=== PATIENT | male | born 1955 | race Caucasian/White ===

== ENCOUNTER 2017-03-05 10:30 | Outpatient (CLI) | payer OTHER ==
[~2017-03-05] VITALS: Ht 157.5 cm; Wt 70.3 kg
[~2017-03-05 10:30] MED LIST: ALBU17AE3 IH; AMLO10TA PO; AMLO5TAB4 PO; ASP81TEC PO; ASPI-875 PO; ASPI-983 PO; ASPI-999 PO; ATOR40TA70 PO; CLOP75TA28 PO; CLOP75TA69 PO; CLPD75T PO; GABA-488 PO; GABA600T2 PO; LISI40TA PO; MTP50T PO; NITR0.4T SL; OMEG-34 PO; OMEP20CA6 PO; OXYC-471 PO; PANT40TA2 PO; PRV20T GT; TIOT4MIS3 IH
[2017-03-05] MEDS ORDERED: FLT11013 IH (10:52)
== END 2017-03-05 11:21 ==
LOC: PREOP 10:30
PROVIDERS: ATTEND Surgery
DX: Z01.818 Encounter for other preprocedural examination (principal); Z86.010 Personal history of colon polyps

== ENCOUNTER 2017-03-06 08:48 | Day surgery (SDC) | payer SELFPAY ==
[~2017-03-06 08:48] MED LIST changes: +FLT11013 IH
[2017-03-06 08:50] VITALS: BP 138/64
[2017-03-06] MEDS ORDERED: NS IV 1000 ML 1,000 ML IV STA (08:54)
[2017-03-06] MEDS ORDERED: fentaNYL INJECTION 100 MCG/2 ML AMP ONE (10:39)
[2017-03-06] MEDS ORDERED: proPOfol 200 MG/20 ML (DIPRIVAN) VIAL IV ONE (10:39)
--- NOTE | 2017-03-06 10:49 | Progress Note-Pre Operative ---
Pre-Operative Progress Note H&P Reviewed The H&P was reviewed, patient examined and no changes noted. Date H&P Reviewed: March 06, 2017 Time H&P Reviewed: 10:48 Pre-Operative Diagnosis: history of polyps ROSA MARIA MOLINA DO March 06, 2017 10:49 am
[2017-03-06] MEDS ORDERED: GLYCOPYRROLATE 0.2 MG/ML (ROBINUL) 2 ML VIAL ONE (10:57)
--- NOTE | 2017-03-06 11:35 | Progress Note-Post Operative ---
Post-Operative Progess Note Surgeon (s)/Area Development Consultant (s) Surgeon ROSA MARIA MOLINA DO Area Development Consultant: na Pre-Operative Diagnosis history of polyps Post-Operative Diagnosis colon polyps Procedure & Operative Findings Date of Procedure 03/06/17 Procedure Performed/Findings colonoscopy with hot bx polypectomy Anesthesia Type per tool and machine maintainer Estimated Blood Loss Estimated blood loss (mL): none Specimens/Packing Specimens Removed colon polyps Packing: ROSA MARIA Morel DO March 06, 2017 11:35 am
--- NOTE | 2017-03-06 11:40 | Discharge Inst-Simple/Standard ---
Discharge Inst-Standard Patient Instructions/Follow Up Plan of Care/Instructions/FU: Follow Dr. Sharma in 2 weeks Repeat colonoscopy in one year or sooner if condition changes Activity as Tolerated: Yes Discharge Diet: No Restrictions MADELINE RIVERA APRN March 06, 2017 11:40
[2017-03-06 12:00] VITALS: BP 122/65
[2017-03-06 12:25] VITALS: BP 122/65
[2017-03-06 12:27] VITALS: BP 122/65
--- NOTE | 2017-03-06 15:52 | OPERATIVE REPORT ---
DATE OF SERVICE: 03/06/2017 PREOPERATIVE DIAGNOSIS: History of colon polyps. POSTOPERATIVE DIAGNOSIS: Colon polyps. PROCEDURE: Colonoscopy with hot biopsy polypectomy x5. SURGEON: Rosa Maria Sharma DO ANESTHESIA: Per ENGINEERING OPERATOR. ESTIMATED BLOOD LOSS: None. COMPLICATIONS: None. INDICATIONS: The patient is a 61-year-old male with a history of colon polyps who was advised to repeat colonoscopy. He understands risks and benefits of procedure and wished to proceed with procedure. Consent was signed in chart. PROCEDURE IN DETAIL: The patient was taken to the endoscopy suite, placed in left lateral recumbent position. Timeout was performed. Scope was inserted in the rectum and advanced all the way to the cecum with minimal difficulty. Prep was adequate. Scope was then slowly retracted back. There were no polyps, masses or ulcerations in the cecum. In the ascending colon, a long, flat appearing polyp was present, which hot biopsy polypectomy was performed. Scope was then continually to be slowly retracted back in the ascending colon and 2 other small polyps were present, which hot biopsy polypectomy was performed. Scope was then continued to be slowly retracted back. At the hepatic flexure, another polyp was present where there was some previous inking. Hot biopsy polypectomy was performed. Scope was continued to be slowly retracted back through the remainder of the transverse colon. There were no other polyps, masses or ulcerations within the transverse colon. Within the descending colon, a small polyp was present, which hot biopsy polypectomy was performed. Scope was continued slowly retracted back into the sigmoid and into the rectum where the scope was also retroflexed noting no other pathology. Scope was returned to its normal position slowly withdrawn until completely removed. Due to the number of polyps, would recommend repeat colonoscopy in one year. He will follow up in the office in 2 weeks to discuss pathology. If he has any problems prior to that, he should be reevaluated at that time. Job ID: [id number] DocumentID: [id number] Dictated Date: 03/06/2017 11:38:36 Change Attendant Date: 03/06/2017 15:51:36 Dictated By: ROSA MARIA SHARMA DO
== END 2017-03-06 12:27 | disposition home or self-care (01) ==
LOC: ENDO 08:48
PROVIDERS: ATTEND Surgery
DX: D12.2 Benign neoplasm of ascending colon (principal); D12.3 Benign neoplasm of transverse colon; I25.10 Atherosclerotic heart disease of native coronary artery without angina pectoris; I73.9 Peripheral vascular disease, unspecified; F17.210 Nicotine dependence, cigarettes, uncomplicated; Z79.02 Long term (current) use of antithrombotics/antiplatelets

== ENCOUNTER → 2017-07-10 | Day surgery (SDC) | payer SELFPAY ==
[~2017-07-10] VITALS: Ht 158.8 cm; Wt 70.8 kg
[~2017-07-10] MED LIST changes: +HEParin (CATH LAB) 0 ML IV ONE; +NS IV 1000 ML 1,000 ML IV SCH; +NS IV 1000 ML 1,000 ML ONE
--- OUTSIDE RECORDS SUMMARY | 2017-07-10 08:31 | XMS REPORT ---
Author Author TIFFANIE CAMPOS [facility] [place] [facility] Address [address] [place] [address] Care Team Providers Care Textile Machinery Sales Representative Name Role Phone TIFFANIE CAMPOS Unavailable PROBLEMS Type Condition ICD9-CM Code [id number] Code Onset Dates Condition Status SNOMED Code Problem Tobacco abuse Z72.0 Active 66019681 Problem Chronic pain G89.29 Active 12301419 Problem CAD (coronary artery disease) I25.10 Active 98770091 Problem Hyperlipemia E78.5 Active 94513165 Problem Benign essential hypertension I10 Active 6585568 Problem Chronic bronchitis J42 Active 16650456 Problem Chronic obstructive pulmonary disease, unspecified COPD type J44.9 Active 83702154 Problem Gastroesophageal reflux disease without esophagitis K21.9 Active 334812049 Problem Diverticulosis of intestine without bleeding, unspecified intestinal tract location K57.90 Active 94445027 Problem Fatty liver K76.0 Active 119356499 Problem COPD (chronic obstructive pulmonary disease) with chronic bronchitis J44.9 Active 652177743 Problem Abdominal bloating R14.0 Active 907008164 ALLERGIES Substance Reaction Event Type Date Status N.K.D.A. Unknown Non Drug Allergy Oct, Unknown SOCIAL HISTORY No smoking Hx information available PLAN OF CARE Activity Details Follow Up 6 Months Reason:BP/COPD- fasting labs VITAL SIGNS Height 62 in 2016-11-02 Weight 173 lbs 2016-11-02 Temperature 98.5 degrees Fahrenheit 2016-11-02 Heart Rate 88 bpm 2016-11-02 Respiratory Rate 16 2016-11-02 Oximetry 92 % 2016-11-02 BMI 31.64 kg/m2 2016-11-02 Blood pressure systolic 166 mmHg 2016-11-02 Blood pressure diastolic 72 mmHg 2016-11-02 MEDICATIONS Medication Instructions Dosage Frequency Start Date End Date Duration Status Gabapentin 600 MG Orally 3 times a day 1 tablet 8h 08 Jun, 2014 Active Ventolin HFA 108 (90 Base) MCG/ACT Inhalation every 4 hrs 2 puffs as needed 4h 14 Apr, 2016 Active Norvasc 5 mg Orally Once a day 1 tablet 24h Active Plavix 75 MG Orally Once a day 1 tablet 24h Active Protonix 20 mg Orally Once a day- stop omeprazole 1 tablets Oct, Active Wmdap-8-lael Ethyl Esters 1 GM 1 capsule by Oral route 3 times per day Active Aspirin 81 MG Orally Once a day 1 tablet 24h Active Fish Oil 500 MG TAKE ONE CAPSULE BY MOUTH THREE TIMES DAILY 30 Active Lisinopril 40 mg Orally Once a day 1 tablet Once a day Orally 24h Active Metoprolol Tartrate 50 mg Orally Twice a day 1 tablet 12h Active Albuterol Sulfate (2.5 MG/3ML) 0.083% Inhalation Three times a day, PRN 3 ml Oct, Active Lipitor 40 MG Orally Once a day in the evening take 1 tablet (40 mg) Active Stiolto Respimat 2.5-2.5 MCG/ACT Inhalation Once a day 2 puffs 24h 13 Oct, 2015 Active Flovent HFA 110 MCG/ACT Inhalation Twice a day 2 puff 12h Oct, Active RESULTS No Results PROCEDURES Procedure Date Ordered Related Diagnosis Body Site MEASURE BLOOD OXYGEN LEVEL Nov 02, 2016 Office Visit, Est Pt., Level 3 Nov 02, 2016 IMMUNIZATIONS No Known Immunizations
--- OUTSIDE RECORDS SUMMARY | 2017-07-10 08:32 | XMS REPORT ---
Author [facility] Address [address] [place] [address] Care Team Providers Care Circuit Walker Name Role Phone TIFFANIE CAMPOS Unavailable PROBLEMS Type Condition ICD9-CM Code INJ09-JS Code Onset Dates Condition Status SNOMED Code Problem Tobacco abuse Z72.0 Active 00695819 Problem Chronic pain G89.29 Active 87937144 Problem CAD (coronary artery disease) I25.10 Active 40223448 Problem Hyperlipemia E78.5 Active 00027936 Problem Benign essential hypertension I10 Active 5204966 Problem Chronic bronchitis J42 Active 44414430 Problem Chronic obstructive pulmonary disease, unspecified COPD type J44.9 Active 92401612 Problem Gastroesophageal reflux disease without esophagitis K21.9 Active 118914262 Problem Diverticulosis of intestine without bleeding, unspecified intestinal tract location K57.90 Active 81929586 Problem Fatty liver K76.0 Active 851911114 Problem COPD (chronic obstructive pulmonary disease) with chronic bronchitis J44.9 Active 815533160 Problem Abdominal bloating R14.0 Active 412640054 ALLERGIES Unknown Allergies SOCIAL HISTORY No smoking Hx information available PLAN OF CARE VITAL SIGNS MEDICATIONS Medication Instructions Dosage Frequency Start Date End Date Duration Status Flovent HFA 110 MCG/ACT Inhalation Twice a day 2 puff 12h 19 Oct, 2016 Active RESULTS No Results PROCEDURES No Known procedures IMMUNIZATIONS No Known Immunizations
--- OUTSIDE RECORDS SUMMARY | 2017-07-10 08:32 | XMS REPORT ---
Author Author ALLA VALDIVIA [facility] Address [address] [place] [address] Care Team Providers Care Manager Of Broadcast Content Name Role Phone ALLA VALDIVIA Unavailable PROBLEMS Type Condition ICD9-CM Code RKE23-ZR Code Onset Dates Condition Status SNOMED Code Problem Tobacco abuse Z72.0 Active 50522993 Problem Chronic pain G89.29 Active 40655566 Problem CAD (coronary artery disease) I25.10 Active 58277182 Problem Hyperlipemia E78.5 Active 04710203 Problem Benign essential hypertension I10 Active 7467366 Problem Chronic bronchitis J42 Active 64400965 Problem Chronic obstructive pulmonary disease, unspecified COPD type J44.9 Active 18054410 Problem Gastroesophageal reflux disease without esophagitis K21.9 Active 460222896 Problem Diverticulosis of intestine without bleeding, unspecified intestinal tract location K57.90 Active 48902746 Problem Fatty liver K76.0 Active 487290005 Problem COPD (chronic obstructive pulmonary disease) with chronic bronchitis J44.9 Active 877048977 Problem Abdominal bloating R14.0 Active 355241030 ALLERGIES Substance Reaction Event Type Date Status N.K.D.A. Unknown Non Drug Allergy Oct, Unknown SOCIAL HISTORY No smoking Hx information available PLAN OF CARE Activity Details Follow Up prn Reason: VITAL SIGNS Height 62 in 2016-11-04 Weight 177.2 lbs 2016-11-04 Temperature 97.4 degrees Fahrenheit 2016-11-04 Heart Rate 68 bpm 2016-11-04 Respiratory Rate 16 2016-11-04 BMI 32.41 kg/m2 2016-11-04 Blood pressure systolic 134 mmHg 2016-11-04 Blood pressure diastolic 64 mmHg 2016-11-04 MEDICATIONS Medication Instructions Dosage Frequency Start Date End Date Duration Status Aspirin 81 MG Orally Once a day 1 tablet 24h Active Lisinopril 40 mg Orally Once a day 1 tablet Once a day Orally 24h Active Gabapentin 600 MG Orally 3 times a day 1 tablet 8h 08 Jun, 2014 Active Uiiye-1-ahsb Ethyl Esters 1 GM 1 capsule by Oral route 3 times per day Active Norvasc 5 mg Orally Once a day 1 tablet 24h Active Stiolto Respimat 2.5-2.5 MCG/ACT Inhalation Once a day 2 puffs 24h Oct, Active Ventolin HFA 108 (90 Base) MCG/ACT Inhalation every 4 hrs 2 puffs as needed 4h Apr, Active Metoprolol Tartrate 50 mg Orally Twice a day 1 tablet 12h Active Plavix 75 MG Orally Once a day 1 tablet 24h Active Lipitor 40 MG Orally Once a day in the evening take 1 tablet (40 mg) Active Albuterol Sulfate (2.5 MG/3ML) 0.083% Inhalation Three times a day, PRN 3 ml Oct, Active Fish Oil 500 MG TAKE ONE CAPSULE BY MOUTH THREE TIMES DAILY 30 Active Flovent HFA 110 MCG/ACT Inhalation Twice a day 2 puff 12h Oct, Active Protonix 20 mg Orally Once a day- stop omeprazole 1 tablets Oct, Active RESULTS No Results PROCEDURES Procedure Date Ordered Related Diagnosis Body Site Office Visit, Est Pt., Level 3 Nov 04, 2016 IMMUNIZATIONS No Known Immunizations
--- OUTSIDE RECORDS SUMMARY | 2017-07-10 08:32 | XMS REPORT ---
Author Author [facility]IE CAMPOS [facility] Address [address] [place] [address] Care Team Providers Care Iron Worker Apprentice Name Role Phone TIFFANIE CAMPOS Unavailable PROBLEMS Type Condition ICD9-CM Code SHF50-BP Code Onset Dates Condition Status SNOMED Code Problem Tobacco abuse Z72.0 Active 63490686 Problem CAD (coronary artery disease) I25.10 Active 19354293 Problem Chronic bronchitis J42 Active 02446825 Problem Hyperlipemia E78.5 Active 49522925 Problem Benign essential hypertension I10 Active 8806284 Problem COPD (chronic obstructive pulmonary disease) with chronic bronchitis J44.9 Active 543809639 Problem Gastroesophageal reflux disease without esophagitis K21.9 Active 163609458 Problem Diverticulosis of intestine without bleeding, unspecified intestinal tract location K57.90 Active 56181508 Problem Chronic pain G89.29 Active 89110531 Problem Abdominal bloating R14.0 Active 191492664 Problem Fatty liver K76.0 Active 291109636 ALLERGIES Unknown Allergies SOCIAL HISTORY No smoking Hx information available PLAN OF CARE VITAL SIGNS MEDICATIONS Medication Instructions Dosage Frequency Start Date End Date Duration Status Metoprolol Tartrate 50 mg Orally Twice a day 1 tablet 12h Active Lisinopril 40 mg Orally Once a day 1 tablet Once a day Orally 24h Active Norvasc 5 mg Orally Once a day 1 tablet 24h Active RESULTS No Results PROCEDURES No Known procedures IMMUNIZATIONS No Known Immunizations
[2017-07-10 09:35] VITALS: BP 171/78
[2017-07-10 09:37] LABS: MEAN PLATELET VOLUME 11.6 FL (7.4-10.4); RED BLOOD COUNT 4.94 10^6/uL (4.35-5.85); RED CELL DISTRIBUTION WIDTH 13.7 % (10.0-14.5); WHITE BLOOD COUNT 7.9 10^3/uL (4.3-11.0)
[2017-07-10 09:49] LABS: INR 0.9 (0.8-1.4); PROTHROMBIN TIME PATIENT 11.9 SEC (12.2-14.7)
[2017-07-10 09:59] LABS: ALANINE AMINOTRANSFERASE 20 U/L (0-55); ALBUMIN 4.3 GM/DL (3.2-4.5); ANION GAP 10 MMOL/L (5-14); ASPARTATE AMINO TRANSFERASE 42 U/L (5-34); BILIRUBIN,TOTAL 0.7 MG/DL (0.1-1.0); BLOOD UREA NITROGEN 18 MG/DL (7-18); BUN/CREATININE RATIO 17; CALCIUM 9.4 MG/DL (8.5-10.1); CARBON DIOXIDE 26 MMOL/L (21-32); CHLORIDE 102 MMOL/L (98-107); CHOLESTEROL 166 MG/DL (< 200); CREATININE SERUM 1.07 MG/DL (0.60-1.30); DIRECT LDL 109 MG/DL (1-129); GFR ESTIMATED > 60; GLUCOSE 104 MG/DL (70-105); POTASSIUM 3.7 MMOL/L (3.6-5.0); SODIUM 138 MMOL/L (135-145); TOTAL PROTEIN 7.6 GM/DL (6.4-8.2); TRIGLYCERIDES 150 MG/DL (<150); VLDL CHOLESTEROL 30 MG/DL (5-40)
== END ==
LOC: CATH 08:27
PROVIDERS: ATTEND Nurse Practitioner Family
DX: M79.604 Pain in right leg (principal); M79.605 Pain in left leg; Z53.29 Procedure and treatment not carried out because of patient's decision for other reasons
CPT/HCPCS: 36415; 80053; 80061; 85027; 85610; 85730; 87081; 93005

== ENCOUNTER → 2018-01-18 | Outpatient (CLI) | payer MEDICAID ==
[~2018-01-18] MED LIST changes: -HEParin (CATH LAB) 0 ML IV ONE; -NS IV 1000 ML 1,000 ML IV SCH; -NS IV 1000 ML 1,000 ML ONE
--- NOTE | 2018-01-18 16:33 | Diagnostic Imaging Report ---
PROCEDURE: US carotid duplex, bilateral. TECHNIQUE: Multiple real-time grayscale images were obtained over the carotid arteries in various projections, bilaterally. Additional duplex Doppler and color Doppler images were also obtained. Parameters based on the consensus panel Hernandez-Scale and Doppler ultrasound criteria published August 2003, Radiology, Volume 229. DOPPLER (peak systolic velocity M/S Right Left CCA 1.25 1.06 ICA Proximal .98 1.61 ICA Mid 1.77 1.12 ICA Distal 1.65 .99 RATIO 1.4 1.5 ECA 1.93 1.96 VERT .63 .46 INDICATION: Previous history of bilateral endarterectomy. FINDINGS: Real-time imaging shows the carotid bulbs and internal carotid arteries to be widely patent. There is no evidence of new intimal hyperplasia. Color Doppler imaging shows normal antegrade flow bilaterally. Both vertebral arteries appear normal and antegrade. Waveforms and peak velocities are normal. Carotid ratios are symmetrical and normal. IMPRESSION: Findings are consistent with previous bilateral carotid endarterectomy with no evidence of neointimal hyperplasia or recurrent atherosclerotic disease. Dictated by: Dictated on workstation # [id number]
== END ==
LOC: RAD 12:31
PROVIDERS: ATTEND Nurse Practitioner Family
DX: I77.9 Disorder of arteries and arterioles, unspecified (principal); I73.9 Peripheral vascular disease, unspecified; I10 Essential (primary) hypertension; E78.5 Hyperlipidemia, unspecified; R06.09 Other forms of dyspnea; Z98.890 Other specified postprocedural states
CPT/HCPCS: 93306; 93880

== ENCOUNTER 2018-02-19 06:44 | Day surgery (SDC) | payer MEDICAID ==
[~2018-02-19] VITALS: Ht 157.5 cm; Wt 73.9 kg
[2018-02-19] VITALS (10 sets, daily range): BP systolic 110–165; BP diastolic 61–73
[~2018-02-19 06:44] MED LIST changes: +LIDOCAINE 1% INJ 20 ML 20 ML VIAL ONE; +NS IV 1000 ML 3,000 ML ONE
--- OUTSIDE RECORDS SUMMARY | 2018-02-19 06:48 | XMS REPORT ---
Author Author TIFFANIE CAMPOS [facility] Address [address] [place] [address] Care Team Providers Care Medical Assistant Prn Name Role Phone TIFFANIE CAMPOS Unavailable PROBLEMS Type Condition ICD9-CM Code HSC91-ZH Code Onset Dates Condition Status SNOMED Code Problem Fatty liver K76.0 Active 462137943 Problem Abdominal bloating R14.0 Active 848093417 Problem Diverticulosis of intestine without bleeding, unspecified intestinal tract location K57.90 Active 55591724 Problem Chronic obstructive pulmonary disease, unspecified COPD type J44.9 Active 07916873 Problem Bilateral carotid artery disease I77.9 Active 343806043 Problem COPD (chronic obstructive pulmonary disease) with chronic bronchitis J44.9 Active 543148273 Problem Gastroesophageal reflux disease without esophagitis K21.9 Active 804223053 Problem Claudication of both lower extremities I73.9 Active 528574511 Problem PAD (peripheral artery disease) I73.9 Active 286066843 Problem Tobacco abuse Z72.0 Active 04453309 Problem Benign essential hypertension I10 Active 8160270 Problem Hyperlipemia E78.5 Active 57150360 Problem Chronic pain G89.29 Active 29237653 Problem Chronic bronchitis J42 Active 78940845 Problem CAD (coronary artery disease) I25.10 Active 40212408 ALLERGIES No Information ENCOUNTERS Encounter Location Date Diagnosis [facility] [address] [id number][place] [id number] Jan, [facility] [address] [id number], [place] [address] Dec, [facility] [address] [id number][place] [id number] Dec, [facility] [address] [id number], [place] [id number] Dec, COPD (chronic obstructive pulmonary disease) with chronic bronchitis J44.9 [facility] [address] [facility] [id number] [place] [address] Dec, [facility] [address] [facility] [id number] [place] [address] Dec, [facility] [address] [id number][place] [id number] Nov, [facility] [address] [id number], [place] [id number] Nov, Benign essential hypertension I10 and COPD (chronic obstructive pulmonary disease) with chronic bronchitis J44.9 [facility] [address] [id number], [place] [address] Nov, Hyperlipemia E78.5 ; Benign essential hypertension I10 ; COPD ( chronic obstructive pulmonary disease) with chronic bronchitis J44.9 ; Encounter for immunization Z23 ; Gastroesophageal reflux disease without esophagitis K21.9 and Chronic pain G89.29 [facility] [address] [id number][place] [id number] Oct, COPD (chronic obstructive pulmonary disease) with chronic bronchitis J44.9 and Chronic obstructive pulmonary disease, unspecified COPD type J44.9 [facility] [address] [id number][place] [address] Oct, COPD (chronic obstructive pulmonary disease) with chronic bronchitis J44.9 and Chronic obstructive pulmonary disease, unspecified COPD type J44.9 [facility] [address] [id number], [place] [id number] Oct, COPD (chronic obstructive pulmonary disease) with chronic bronchitis J44.9 and Chronic obstructive pulmonary disease, unspecified COPD type J44.9 [facility] [employer] [place] [address] AVE [id number], [place] [id number] Oct, Benign essential hypertension I10 and Neck pain M54.2 [facility] [employer] [place] [address] AVE [id number], [place] [address] 15 Dec, 2017 PAD (peripheral artery disease) I73.9 ; Claudication of both lower extremities I73.9 ; Bilateral carotid artery disease I77.9 ; Benign essential hypertension I10 ; Hyperlipemia E78.5 and Dyspnea on exertion R06.09 [facility] [id number][place] [id number] Aug, Benign essential hypertension I10 ; Gastroesophageal reflux disease without esophagitis K21.9 and Cervical radiculopathy M54.12 [facility] [id number], [place] [id number] Aug, Gastroesophageal reflux disease without esophagitis K21.9 [facility] [address] [id number], [place] [id number] Aug, COPD (chronic obstructive pulmonary disease) with chronic bronchitis J44.9 [facility] [address] [id number], [place] [address] Jul, [facility] [address] [id number], [place] [id number] Jul, Benign essential hypertension I10 [facility] [address] [id number], [place] [address] Jul, [facility] [address] [id number], [place] [id number] Jul, COPD (chronic obstructive pulmonary disease) with chronic bronchitis J44.9 [facility] [address] [id number], [place] [address]16[address] Jul, Neck pain M54.2 [facility] [address] [id number], [place] [id number] 22 Jun, 2017 Claudication of both lower extremities I73.9 ; PAD (peripheral artery disease) I73.9 ; Bilateral carotid artery disease I77.9 ; CAD (coronary artery disease) I25.10 ; Tobacco abuse Z72.0 ; Benign essential hypertension I10 ; Hyperlipemia E78.5 and Non-rheumatic mitral valve stenosis I34.2 [facility] [address] [id number], [place] [id number] Jun, Chronic obstructive pulmonary disease, unspecified COPD type J44.9 [facility] [address] [address] [id number] [place] [id number] May, [facility] [address] [id number] [place] [id number] May, Chronic obstructive pulmonary disease, unspecified COPD type J44.9 [facility] [address] [id number], [place] [id number] May, Neck pain M54.2 ; Chronic obstructive pulmonary disease, unspecified COPD type J44.9 and Cervical radiculopathy M54.12 [facility] [address] [address] [id number], [place] [id number] May, [facility] [address] [id number], [place] [id number] Apr, [facility] [address] [id number], [place] 999395496 Apr, Gastroesophageal reflux disease without esophagitis K21.9 [facility] [address] [id number], [place] [id number] Apr, COPD (chronic obstructive pulmonary disease) with chronic bronchitis J44.9 [facility] [address] [id number], [place] [id number] Apr, [facility] [address] [id number], [place] [id number] Apr, [facility] [address] [id number], [place] [id number] Apr, COPD (chronic obstructive pulmonary disease) with chronic bronchitis J44.9 ; Benign essential hypertension I10 ; Tobacco abuse counseling Z71.6 and Hyperlipemia E78.[address] [facility] [address] [id number], [place] [id number] February, COPD (chronic obstructive pulmonary disease) with chronic bronchitis J44.9 [facility] [address] [id number], [place] 139[address] Jan, [facility] [address] [id number], [place] [id number] Jan, COPD (chronic obstructive pulmonary disease) with chronic bronchitis J44.[address] [facility] [address] [id number], [place] [id number] Oct, COPD (chronic obstructive pulmonary disease) with chronic bronchitis J44.9 [facility] [address] [id number], [place] [id number] Oct, Winter itch L29.8 [facility] [address] [id number], [place] [id number] Oct, COPD (chronic obstructive pulmonary disease) with chronic bronchitis J44.9 ; Benign essential hypertension I10 ; Tobacco abuse Z72.0 and Gastroesophageal reflux disease without esophagitis K21.9 [facility] [address] [id number], [place] [id number] Sep, Benign essential hypertension I10 [facility] [address] [id number], [place] [id number] Aug, [facility] [address] [id number], [place] [id number] Jul, [facility] [address] [id number], [place] [id number] Apr, [facility] [address] [id number], [place] [id number] Apr, Abdominal bloating R14.0 ; Fatty liver K76.0 ; Diverticulosis of intestine without bleeding, unspecified intestinal tract location K57.90 ; Chronic obstructive pulmonary disease, unspecified COPD type J44.9 and Benign essential hypertension I10 [facility] [address] [id number], [place] [id number] Apr, Mild early onset dysthymic disorder, in partial remission, with melancholic features, 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 [facility] [address] [id number], [place] 149435185 Mar, Abdominal muscle strain, initial encounter S39.011A [facility] [address] [id number], [place] 829033414 Jan, Pancreatitis K85.9 ; Abdominal bloating R14.0 ; Chronic bronchitis J42 and Chronic pain G89.29 [facility] [address] [id number], [place] [id number] Nov, [facility] [address] [id number], [place] [id number] Nov, [facility] [address] [id number], [place] 188065705 Nov, Chronic bronchitis J42 ; Tobacco abuse Z72.0 and Tobacco abuse counseling Z71.6 [facility] [address] [id number], [place] [id number] Oct, [facility] [address] [id number], [place] [id number] Oct, Chronic bronchitis J42 ; Tobacco abuse Z72.0 and Benign essential hypertension I10 [facility] [address] [id number], [place] [id number] Oct, Chronic bronchitis J42 ; Tobacco abuse Z72.0 ; Tobacco abuse counseling Z71.6 ; Benign essential hypertension I10 and Hyperlipemia E78.5 [facility] [address] [id number], [place] [address] Sep, [facility] [address] [id number], [place] [id number] Jul, [facility] [address]00565100[place], [place] [address] Jul, Essential (primary) hypertension I10 [facility] [address] [id number], [place] [address] Jul, [facility] [address] [id number], [place] [id number] Jul, [facility] [address] [id number], [place] [id number] Jun, Benign essential hypertension 401.1 ; Generalized edema 782.3 ; Chronic pain 338.29 and Hyperlipemia 272.4 [facility] Dominguez [facility] [address] [id number], [place] [id number] May, Upper respiratory infection 465.9 and Cough 786.2 [facility] Alberto [facility] [address] [id number], [place] [id number] Mar, Upper respiratory infection 465.9 ; Tobacco abuse 305.1 and Cough 786.2 [facility] Dominguez [facility] [address] [id number], [place] [id number] February, [facility] [address] [id number], [place] [id number] February, Status post bilateral carotid endarterectomy V45.89 ; CAD ( coronary artery disease) 414.00 ; Benign essential hypertension 401.1 ; Hyperlipemia 272.4 ; Tobacco abuse 305.1 ; Tobacco abuse counseling V65.42 and Chronic bronchitis 491.9 [facility] [id number] [place] [address] Jan, [facility] [id number] [place] [address] [id number]- 9620 Jan, [facility] [id number] [place] [address]3392- 0158 Dec, [facility] [id number] [place] [address]- 3887 Dec, [facility] [id number] [place] [address] [id number]- 8485 Nov, [facility] [id number] [place] [address] 827640- 8494 Nov, [facility] [id number] [place] [address] 524627- 4481 Nov, [facility] [address] [id number] [place] [address]- [address] 17 Nov, 2014 [facility] [place] [facility] [address] [id number] [place] [address]- [address] 17 Nov, 2014 [facility] [place] [facility] [address] [id number] [place] [address]- 1686 10 Nov, 2014 [facility] [place] [facility] [address] [id number] [place] [address]- 8066 Nov, 2014 [facility] [place] [facility] [address] [id number] [place] [address]- 1553 Nov, [facility] [place] [facility] [address] [id number] [place] [address]- 4223 Nov, [facility] [place] [facility] [address] [id number] [place] [address]- 4256 Oct, [facility] [place] [facility] [address] [id number] [place] [address]- 4608 Oct, [facility] [place] [facility] [address] [id number] [place] [address]- 0382 Oct, [facility] [place] [facility] [address] [id number] [place] [address]- 3241 Oct, [facility] [place] [facility] [address] [id number] [place] [address]- 7444 Oct, [facility] [place] [facility] [address] [id number] [place] [address]- 6521 Oct, [facility] [place] [facility] [address] [id number] [place] [address]- 9226 Oct, [facility] [place] [facility] [address] [id number] [place] [address]- 1313 Oct, [facility] [place] [facility] [address] [id number] [place] [address]- 1657 Oct, [facility] [place] [facility] [address] [id number] [place] [address]- 6234 Oct, [facility] [place] [address] [id number] [id number] Oct, [facility] [place] [facility] [address] [id number] [place] [address]- 7852 Oct, [facility] [place] [facility] [address] [facility] [id number] [place] [address]69 Sep, [facility] [place] [facility] [address] [id number] [place] [address]- 2249 Sep, [facility] [place] [facility] [address] [id number] [place] [address]- 7967 Aug, [facility] [place] [facility] [address] [id number] [place] [address]- 9105 Aug, [facility] [place] [facility] [address] [id number] [place] [address]- 2319 Aug, [facility] [place] [facility] [address] [id number] [place] [address]- 4737 Aug, [facility] [place] [facility] [address] [id number] [place] [address]- 1330 Jul, [facility] [place] [facility] [address] [facility] [id number] [place] [address]- 9739 Jul, [facility] [place] [facility] [address] [facility] [id number], [place] [address]- 6605 Jun, [facility] [place] [facility] [address] [id number], [place] [address]- 8260 Jun, [facility] [place] [facility] [address] [id number] [place] [address]- 7638 May, [facility] [place] [facility] [address] [id number] [place] [address]- 2911 May, [facility] [place] [facility] [address] [facility] [id number], [place] [address]- 0915 May, [facility] [place] [facility] [address] [id number], [place] [address]- 5313 May, [facility] [place] [facility] [address] [id number] [place] [address]- 5339 Jan, [facility] [place] [facility] [address] [id number] [place] [address]- 3993 Jan, [facility] [place] [facility] [address] [id number] [place] [address]- 1796 Nov, [facility] [place] [facility] [address] [id number] [place] [address]- 8362 Nov, [facility] [place] [facility] [address] [id number] [place] [address]- 7036 Nov, [facility] [place] [facility] [address] [id number] [place] [address]- 6201 Nov, [facility] [place] [facility] [address] [id number] [place] [address]- 8458 Nov, [facility] [place] [facility] [address] [id number] [place] [address]- 0281 Nov, [facility] [place] [facility] [address] [id number] [place] [address]- 7185 Nov, [facility] [place] [facility] [address] [id number] [place] [address]- 9156 Nov, [facility] [place] [facility] [address] [id number] [place] [address]- 7670 Nov, [facility] [place] [facility] [address] [id number] [place] [address]- 0895 Nov, [facility] [place] [facility] [address] [id number] [place] [address]- 3389 Oct, [facility] [place] [facility] [address] [id number] [place] [address]- 0050 Oct, [facility] [place] [facility] [address] [id number] [place] [address]- 2056 Oct, [facility] [place] [facility] [address] [id number] [place] [address]- 4635 Oct, [facility] [place] [facility] [address] [id number] [place] [address]- 4486 Sep, [facility] [place] [facility] [address] [id number] [place] [address]- 0009 Sep, [facility] [place] [facility] [address] [id number] [place] [address]- 5030 Aug, [facility] [place] [facility] [address] [id number] [place] [address]- 0305 Aug, [facility] [place] [facility] [address] [id number] [place] [address]- 4067 Aug, [facility] [place] [facility] [address] [id number] [place] [address]- 9818 Aug, [facility] [place] [facility] [address] [id number] [place] [address]- 0995 Aug, [facility] [place] [facility] [address] [id number] [place] [address]- 9636 Aug, [facility] [place] [facility] [address] [id number], [place] [address]- 2362 Aug, [facility] [place] [facility] [address] [id number], [place] [address]- [address] Aug, [facility] [place] [facility] [address] [id number], [place] [address]- 8621 Jul, [facility] [place] [facility] [address] [id number] [place] [address]- 1565 Jul, [facility] [place] [facility] [address] [id number] [place] [address]- 6913 Jul, [facility] [place] [facility] [address] [id number] [place] [address]- 4637 Jul, [facility] [place] [facility] [address] [id number], [place] [address]- 0100 Jul, [facility] [address]65[address], [place] [address]- 5786 Jun, [facility] [address]65[address], [place] [address]- 3406 May, [facility] [address]65[address], [place] [address]- 0996 Apr, [facility] [address]65[address], [place] [address]- 2337 February, [facility] [address] [place] [address]58- 4859 Jan, [facility] [address]65[address], [place] [address]- 0166 Jan, [facility] [address] [place] [address] 37162- 1614 Dec, [facility] [address]65[address], [place] [address]- 1352 Dec, [facility] [address]65[address], [place] [address]- 2118 Dec, [facility] [address]65[address], [place] [address]- 3511 Nov, [facility] [address], [place] [address]- 8871 Nov, [facility] [address], [place] [address]- 8140 Nov, [facility] [address] [id number], [place] [address]- 4160 Nov, IMMUNIZATIONS No Known Immunizations SOCIAL HISTORY Never Assessed REASON FOR VISIT results/letter PLAN OF CARE VITAL SIGNS MEDICATIONS Medication Instructions Dosage Frequency Start Date End Date Duration Status Xsnra-5-giet Ethyl Esters 1 GM 1 capsule by Oral route 3 times per day Active Metoprolol Tartrate 50 mg Orally Twice a day 1 tablet 12h Active Fish Oil 500 MG TAKE ONE CAPSULE BY MOUTH THREE TIMES DAILY 30 Active Aspirin 81 MG Orally Once a day 1 tablet 24h Active Gabapentin 600 MG 1 tablet 3 times a day Orally Active Ventolin HFA 108 (90 Base) MCG/ACT Inhalation every 4 hrs 2 puffs as needed 4h Apr, Active Crestor 20 mg Orally Once a day 1 tablet 24h Apr, 90 days Active Protonix 20 mg Orally Once a day- stop omeprazole 1 tablets Oct, Active Flovent HFA 110 MCG/ACT Inhalation Twice a day (PALS) 2 puff Oct, Active Bevespi Aerosphere 9-4.8 MCG/ACT Inhalation Twice a day (PALS) 2 puffs Apr, Active Norvasc 5 mg Orally Once a day 1 tablet 24h Active Plavix 75 MG Orally Once a day 1 tablet 24h Active Albuterol Sulfate (2.5 MG/3ML) 0.083% Inhalation Three times a day, PRN 3 ml Oct, Active Lisinopril 40 mg Orally Once a day 1 tablet Once a day Orally 24h Active RESULTS No Results PROCEDURES No Known procedures INSTRUCTIONS MEDICATIONS ADMINISTERED No Known Medications MEDICAL (GENERAL) HISTORY Type Description Date Medical History GERD Medical History hypertension Medical History 1999 mild stroke syndrome- CT head 02/2015 showed chronic ischemic changes Medical History chronic neck and back pain Medical History IA x's 2 1996 and 2011 Medical History Chronic bronchitis- PFT 2012 normal Medical History Hyperlipidemia Medical History ECHO 2013- mild tricuspid and mitral reguirg. Mild aortic sclerosis- EF 60% Medical History CT abdomen/pelvis- 12/2015- Mild diverticulosis, fatty liver, artherosclerosis of aorta Medical History Fatty liver- CT 2015 Medical History Tubular Adenoma and hyperplastic polyp dx 06/2016 Medical History Esophagitis Surgical History carotid endarterectomy, left side of neck 02/2015 Surgical History coronary angiography Dr Traylor [facility]- normal EF, LV function,-minimal RCA blockage <20% 1996 [facility]osive es[facility], mild nonspecific bulbar duodenitis 1996 Surgical History carotid endarterectomy, right- [facility] 01/2015 Surgical History Heart cath with PTCA 2013 Surgical History Colonoscopy- tubular adenoma, hyperplastic polyp- repeat Colonoscopy 12/2016 Hospitalization History heart attack 1996 Hospitalization History slurred speech, fever, left arm pain Sharifa Shah February 2015 Hospitalization History Pancreatitis 12/2015
--- OUTSIDE RECORDS SUMMARY | 2018-02-19 06:48 | XMS REPORT ---
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 Name Role Phone TIFFANIE CAMPOS Unavailable PROBLEMS Type Condition ICD9-CM Code MGW22-NA Code Onset Dates Condition Status SNOMED Code Problem Fatty liver K76.0 Active 378033820 Problem Abdominal bloating R14.0 Active 148058358 Problem Diverticulosis of intestine without bleeding, unspecified intestinal tract location K57.90 Active 87038528 Problem Chronic obstructive pulmonary disease, unspecified COPD type J44.9 Active 48138485 Problem Bilateral carotid artery disease I77.9 Active 492644916 Problem COPD (chronic obstructive pulmonary disease) with chronic bronchitis J44.9 Active 921475386 Problem Gastroesophageal reflux disease without esophagitis K21.9 Active 327905135 Problem Claudication of both lower extremities I73.9 Active 235409051 Problem PAD (peripheral artery disease) I73.9 Active 487326410 Problem Tobacco abuse Z72.0 Active 98226769 Problem Benign essential hypertension I10 Active 5313061 Problem Hyperlipemia E78.5 Active 70707528 Problem Chronic pain G89.29 Active 74937249 Problem Chronic bronchitis J42 Active 78983867 Problem CAD (coronary artery disease) I25.10 Active 84523726 ALLERGIES No Information ENCOUNTERS Encounter Location Date Diagnosis [facility] [id number], [place] [id number] Jan, [facility] [address] [id number][place] [id number] Jan, Chronic obstructive pulmonary disease, unspecified COPD type J44.9 [facility] [address] [id number], [place] [id number] Dec, [facility] [address] [id number][place] [address] Dec, [facility] [address] [place] [address] AVE [id number], [place] [id number] Dec, COPD (chronic obstructive pulmonary disease) with chronic bronchitis J44.9 [facility] [address] [facility] [id number] [place] [address] Dec, [facility] [address] [facility] [id number] [place] [address] Dec, [facility] [address] [id number][place] [id number] Nov, [facility] [id number][place] [address] Nov, Benign essential hypertension I10 and COPD (chronic obstructive pulmonary disease) with chronic bronchitis J44.9 [facility] [address] [id number][place] [address] Nov, Hyperlipemia E78.5 ; Benign essential hypertension I10 ; COPD ( chronic obstructive pulmonary disease) with chronic bronchitis J44.9 ; Encounter for immunization Z23 ; Gastroesophageal reflux disease without esophagitis K21.9 and Chronic pain G89.29 [facility] [id number], [place] [id number] Oct, COPD (chronic obstructive pulmonary disease) with chronic bronchitis J44.9 and Chronic obstructive pulmonary disease, unspecified COPD type J44.9 [facility] [address] [id number], [place] [id number] Oct, COPD (chronic obstructive pulmonary disease) with chronic bronchitis J44.9 and Chronic obstructive pulmonary disease, unspecified COPD type J44.9 [facility] [address] [id number], [place] [address] Oct, COPD (chronic obstructive pulmonary disease) with chronic bronchitis J44.9 and Chronic obstructive pulmonary disease, unspecified COPD type J44.9 [facility] [address] [id number], [place] [address] Oct, Benign essential hypertension I10 and Neck pain M54.2 [facility] [address] [id number], [place] [address] Sep, PAD (peripheral artery disease) I73.9 ; Claudication of both lower extremities I73.9 ; Bilateral carotid artery disease I77.9 ; Benign essential hypertension I10 ; Hyperlipemia E78.5 and Dyspnea on exertion R06.09 [facility] [address] [id number], [place] [address] Aug, Benign essential hypertension I10 ; Gastroesophageal reflux disease without esophagitis K21.9 and Cervical radiculopathy M54.12 [facility] [address] [id number], [place] [id number] Aug, Gastroesophageal reflux disease without esophagitis K21.9 [facility] [address] [id number], [place] [id number] Aug, COPD (chronic obstructive pulmonary disease) with chronic bronchitis J44.9 [facility] [address] [id number], [place] [id number] Jul, [facility] [address] [id number], [place] [address] Jul, Benign essential hypertension I10 [facility] [address] [id number], [place] [id number] Jul, [facility] [address] [id number], [place] [id number] Jul, COPD (chronic obstructive pulmonary disease) with chronic bronchitis J44.9 [facility] [address] [id number], [place] [id number] Jul, Neck pain M54.2 [facility] [address] [id number], [place] [id number] Jun, Claudication of both lower extremities I73.9 ; PAD (peripheral artery disease) I73.9 ; Bilateral carotid artery disease I77.9 ; CAD (coronary artery disease) I25.10 ; Tobacco abuse Z72.0 ; Benign essential hypertension I10 ; Hyperlipemia E78.5 and Non-rheumatic mitral valve stenosis I34.[address] [facility] [address] [id number] [place] [id number] Jun, Chronic obstructive pulmonary disease, unspecified COPD type J44.[address] [facility] [address] [id number] [place] [id number] May, [facility] [address] [id number] [place] [address] May, Chronic obstructive pulmonary disease, unspecified COPD type J44.9 [facility] [address] [id number] [place] [address] May, Neck pain M54.2 ; Chronic obstructive pulmonary disease, unspecified COPD type J44.9 and Cervical radiculopathy M54.[address] [facility] [address] [id number] [place] [address] May, [facility] [address] [id number] [place] [address] Apr, [facility] [address] [id number] [place] [address] Apr, Gastroesophageal reflux disease without esophagitis K21.[address] [facility] [address] [id number] [place] [id number] Apr, COPD (chronic obstructive pulmonary disease) with chronic bronchitis J44.9 [facility] [address] [id number] [place] [address]60 Apr, [facility] [address] [id number] [place] [id number] Apr, [facility] [address] [id number] [place] 0747[address] Apr, COPD (chronic obstructive pulmonary disease) with chronic bronchitis J44.9 ; Benign essential hypertension I10 ; Tobacco abuse counseling Z71.6 and Hyperlipemia E78.[address] [facility] [address] [id number] [place] 7705[address] February, COPD (chronic obstructive pulmonary disease) with chronic bronchitis J44.9 [facility] [address] [id number] [place] [address] Jan, [facility] [address] [id number] [place] [id number] Jan, COPD (chronic obstructive pulmonary disease) with chronic bronchitis J44.9 [facility] [address] [id number], [place] 137501805 Oct, COPD (chronic obstructive pulmonary disease) with chronic bronchitis J44.9 [facility] [address] [id number], [place] [address]66166238 Oct, Winter itch L29.8 [facility] [address] [id number], [place] [id number] Oct, COPD (chronic obstructive pulmonary disease) with chronic bronchitis J44.9 ; Benign essential hypertension I10 ; Tobacco abuse Z72.0 and Gastroesophageal reflux disease without esophagitis K21.9 [facility] [address] [id number], [place] [address]0116[address] Sep, Benign essential hypertension I10 [facility] [address] [id number], [place] [id number] Aug, [facility] [address] [id number], [place] [address]4325 Jul, [facility] [address] [id number], [place] [id number] Apr, [facility] [address] [id number], [place] [address]83[address]20 Apr, Abdominal bloating R14.0 ; Fatty liver K76.0 ; Diverticulosis of intestine without bleeding, unspecified intestinal tract location K57.90 ; Chronic obstructive pulmonary disease, unspecified COPD type J44.9 and Benign essential hypertension I10 [facility] [address] [id number], [place] 22855260[address] Apr, Mild early onset dysthymic disorder, in partial remission, with melancholic features, 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 [facility] [address] [id number], [place] [id number] Mar, Abdominal muscle strain, initial encounter S39.011A [facility] [address] [id number], [place] [id number] Jan, Pancreatitis K85.9 ; Abdominal bloating R14.0 ; Chronic bronchitis J42 and Chronic pain G89.29 [facility] [address] [id number], [place] 1414[address]777 Nov, [facility] [address] [id number], [place] 993609673 Nov, [facility] [address] [place] [address] AVE [id number], [place] [id number] Nov, Chronic bronchitis J42 ; Tobacco abuse Z72.0 and Tobacco abuse counseling Z71.6 [facility] [address] [id number], [place] [id number] Oct, [facility] [address] [id number], [place] 811698248 Oct, Chronic bronchitis J42 ; Tobacco abuse Z72.0 and Benign essential hypertension I10 [facility] [address] [facility] [address] [id number], [place] [id number] Oct, Chronic bronchitis J42 ; Tobacco abuse Z72.0 ; Tobacco abuse counseling Z71.6 ; Benign essential hypertension I10 and Hyperlipemia E78.5 [facility] [address] [id number] [address] Sep, [facility] [address] [facility] [address] [id number], [place] [id number] Jul, [facility] [address] [place] [address]- [address] Jul, Essential (primary) hypertension I10 [facility] [id number] [place] [address]006 Jul, [facility] [address] [id number], [place] 539858697 Jul, [facility] [address] [id number], [place] 867356848 Jun, Benign essential hypertension 401.1 ; Generalized edema 782.3 ; Chronic pain 338.29 and Hyperlipemia 272.4 [facility] [address] [id number], [place] [id number] May, Upper respiratory infection 465.9 and Cough 786.2 [facility] [address] [facility] [id number], [place] 957079002 Mar, Upper respiratory infection 465.9 ; Tobacco abuse 305.1 and Cough 786.2 [facility] [address] [facility] [id number], [place] [id number] February, [facility] [address] [facility] [id number], [place] 740085955 February, Status post bilateral carotid endarterectomy V45.89 ; CAD ( coronary artery disease) 414.00 ; Benign essential hypertension 401.1 ; Hyperlipemia 272.4 ; Tobacco abuse 305.1 ; Tobacco abuse counseling V65.42 and Chronic bronchitis 491.9 [facility] [address] [address] Jan, [facility] [address]65100[place] [address]- [address] Jan, [facility] [address] [place] [address]- 3896 Dec, [facility] [id number] [place] [address]- 9408 Dec, [facility] [address] [place] [address]- 9456 Nov, [facility] [address] [place] [address]- 1136 Nov, [facility] [place] [facility] [address] [id number] [place] [address]- [address] Nov, [facility] [place] [facility] [address] [id number] [place] [address]- 9335 Nov, [facility] [place] [facility] [address] [id number] [place] [address]- 5393 Nov, 2014 [facility] [place] [facility] [address] [id number] [place] [address]- [address]15 Nov, 2014 [facility] [place] [facility] [address] [id number] [place] [address]- 7875 Nov, [facility] [place] [facility] [address] [id number] [place] [address]- 7251 Nov, [facility] [place] [facility] [address] [id number] [place] [address]- 6481 Nov, [facility] [place] [facility] [address] [id number] [place] [address]- 5761 Oct, [facility] [place] [facility] [address] [id number] [place] [address]- 1162 Oct, [facility] [place] [facility] [address] [id number] [place] [address]- 4293 Oct, [facility] [place] [facility] [address] [id number] [place] [address]- 8469 Oct, [facility] [place] [facility] [address] [id number] [place] [address]- [address] Oct, [facility] [place] [facility] [address] [id number] [place] [address]- 4146 Oct, [facility] [place] [facility] [address] [id number] [place] [address]- 8746 Oct, [facility] [place] [facility] [address] [id number] [place] [address]- 2993 Oct, [facility] [place] [facility] [address] [id number] [place] [address]- 0133 Oct, [facility] [address] [facility] [id number] [place] [address]- [address]17 Oct, [facility] [address] [id number], [place] 710575183 Oct, [facility] [address] [id number] [place] [address]- 6[address] Oct, [facility] [place] [facility] [address] [id number] [place] [address]- 9749 Sep, [facility] [place] [facility] [address] [facility] [id number] [place] [address]- 2164 Sep, [facility] [place] [facility] [address] [id number] [place] [address]- 2998 Aug, [facility] [place] [facility] [address] [place] [address]- 3462 Aug, [facility] [place] [facility] [address] [id number] [place] [address]- 5418 Aug, [facility] [place] [facility] [address] [id number] [place] [address]- 7695 Aug, [facility] [place] [facility] [address] [id number] [place] [address]- 2193 Jul, [facility] [place] [facility] [address] [id number] [place] [address]- 2197 Jul, [facility] [place] [facility] [address] [id number] [place] [address]- 9857 Jun, [facility] [place] [facility] [address] [id number] [place] [address]- 4922 Jun, [facility] [place] [facility] [address] [facility] [id number] [place] [address]- 1814 May, [facility] [place] [facility] [address] [facility] [id number] [place] [address]- 8757 May, [facility] [place] [facility] [address] [id number] [place] [address]- 9966 May, [facility] [place] [facility] [address] [id number] [place] [address]- 4695 May, [facility] [place] [facility] [address] [id number] [place] [address]- 7607 Jan, [facility] [place] [facility] [address] [id number] [place] [address]- 7346 Jan, [facility] [place] [facility] [address] [id number] [place] [address]- 0207 Nov, [facility] [place] [facility] [address] [id number] [place] [address]- 5676 Nov, [facility] [place] [facility] [address] [id number] [place] [address]- 0501 Nov, [facility] [place] [facility] [address] [id number] [place] [address]- 3350 Nov, [facility] [place] [facility] [address] [id number] [place] [address]- 6865 Nov, [facility] [place] [facility] [address] [id number] [place] [address]- 1147 Nov, [facility] [place] [facility] [address] [id number] [place] [address]- 6275 Nov, [facility] [place] [facility] [address] [id number] [place] [address]- 9250 Nov, [facility] [place] [facility] [address] [id number] [place] [address]- 7287 Nov, [facility] [place] [facility] [address] [id number] [place] [address]- 4250 Nov, [facility] [place] [facility] [address] [id number] [place] [address]- 7003 Oct, [facility] [place] [facility] [address] [id number] [place] [address]- 7074 Oct, [facility] [address] [id number] [place] [address]- 4584 Oct, [facility] [place] [facility] [address] [id number] [place] [address]- 0537 Oct, [facility] [address] [id number] [place] [address]- 0177 Sep, [facility] [place] [facility] [address] [id number] [place] [address]- 6710 Sep, [facility] [address] [id number] [place] [address]- 9353 Aug, [facility] [place] [facility] [address] [id number] [place] [address]- 9053 Aug, [facility] [address] [id number] [place] [address]- 6719 Aug, [facility] [place] [facility] [address] [id number] [place] [address]- 8066 Aug, [facility] [place] [facility] [address] [id number] [place] [address]- 7787 Aug, [facility] [place] [facility] [address] [facility] [id number] [place] [address]- 9820 Aug, [facility] [place] [facility] [address] [id number] [place] [address]- 9668 Aug, [facility] [place] [facility] [address] [id number] [place] [address]- 9764 Aug, [facility] [place] [facility] [address] [id number] [place] [address]- 4616 Jul, [facility] [place] [facility] [address] [id number] [place] [address]- 6586 Jul, [facility] [place] [facility] [address] [id number] [place] [address]- 6554 Jul, [facility] [place] [facility] [address] [facility] [id number] [place] [address]- 1197 Jul, [facility] [address] [facility] [id number] [place] [address]- 7258 Jul, [facility] [address] [facility] [id number] [place] [address]- 6236 Jun, [facility] [address] [address]- 5759 May, [facility] [address] [facility] [id number] [place] [address]- 5417 Apr, [facility] [address] [address]- [address] February, [facility] [address]00565100[place] [address]- 0767 Jan, [facility] [address] [address]- 0513 Jan, [facility] [address]00565[address] [address]- 1985 Dec, [facility] [address]00565[address] [address]- 0588 Dec, [facility] [address]65[address] [address]- 8674 Dec, [facility] [address] [address]- 4837 Nov, [facility] [address] [id number] [address]- 6784 Nov, [facility] [address] [address]- 4794 Nov, [facility] [address] [id number] [address]- 0786 Nov, IMMUNIZATIONS No Known Immunizations SOCIAL HISTORY Never Assessed REASON FOR VISIT PALS Received PLAN OF CARE VITAL SIGNS MEDICATIONS Unknown Medications RESULTS No Results PROCEDURES No Known procedures INSTRUCTIONS MEDICATIONS ADMINISTERED No Known Medications MEDICAL (GENERAL) HISTORY Type Description Date Medical History GERD Medical History hypertension Medical History 1999 mild stroke syndrome- CT head 02/2015 showed chronic ischemic changes Medical History chronic neck and back pain Medical History [place] x's 2 1996 and 2011 Medical History [...] neck 02/2015 Surgical History coronary angiography Dr Kymberly Shah- normal EF, LV function,-minimal RCA blockage <20% 1996 Surgical History EGD-Dr.Makdisi Sharp-mild erosive esophagitis, mild nonspecific bulbar duodenitis 1996 Surgical History carotid endarterectomy, right- [facility] 01/2015 Surgical History Heart cath with [facility] 2013 Surgical History Colonoscopy- tubular adenoma, hyperplastic polyp- repeat Colonoscopy 12/2016 Hospitalization History heart attack 1996 Hospitalization History slurred speech, fever, left arm pain Sharifa Shah February 2015 Hospitalization History Pancreatitis 12/2015
--- OUTSIDE RECORDS SUMMARY | 2018-02-19 06:49 | XMS REPORT ---
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 Name Role Phone MARJ MCNAMARA Unavailable Unavailable PROBLEMS Type Condition ICD9-CM Code [id number] Code Onset Dates Condition Status SNOMED Code Problem Fatty liver K76.0 Active 872026707 Problem Abdominal bloating R14.0 Active 921144945 Problem Diverticulosis of intestine without bleeding, unspecified intestinal tract location K57.90 Active 46678180 Problem Chronic obstructive pulmonary disease, unspecified COPD type J44.9 Active 82755198 Problem Bilateral carotid artery disease I77.9 Active 766889639 Problem COPD (chronic obstructive pulmonary disease) with chronic bronchitis J44.9 Active 619600143 Problem Gastroesophageal reflux disease without esophagitis K21.9 Active 645547078 Problem Claudication of both lower extremities I73.9 Active 947559139 Problem PAD (peripheral artery disease) I73.9 Active 607428715 Problem Tobacco abuse Z72.0 Active 91049614 Problem Benign essential hypertension I10 Active 8489091 Problem Hyperlipemia E78.5 Active 94483336 Problem Chronic pain G89.29 Active 26055762 Problem Chronic bronchitis J42 Active 37740872 Problem CAD (coronary artery disease) I25.10 Active 99117127 ALLERGIES No Information ENCOUNTERS Encounter Location Date Diagnosis [facility] [address] [id number] [place] [id number] Jan, [facility] [address] [id number] [place] [address] Dec, [facility] SERVICESHotreader[facility] [address] [id number] ISLAND[place] [address] Dec, [facility] [address] [id number] [place]LAND[place] [address] Dec, COPD (chronic obstructive pulmonary disease) with chronic bronchitis J44.[address] [id number] [place] [address] Dec, [facility] [address] [id number] [address] Dec, [facility] [address] [place] [address] AVE [id number] [place]LAND[place] [address] Nov, [facility] [place] [address] [place] [address] AVE [id number] [place] [id number] Nov, Benign essential hypertension I10 and COPD (chronic obstructive pulmonary disease) with chronic bronchitis J44.9 [facility] [address] [id number] [place]LAND[place] [address] Nov, Hyperlipemia E78.5 ; Benign essential hypertension I10 ; COPD ( chronic obstructive pulmonary disease) with chronic bronchitis J44.9 ; Encounter for immunization Z23 ; Gastroesophageal reflux disease without esophagitis K21.9 and Chronic pain G89.29 [facility] [place] [address] [place] [address] AVE [id number] [place] [address]60[address] Oct, COPD (chronic obstructive pulmonary disease) with chronic bronchitis J44.9 and Chronic obstructive pulmonary disease, unspecified COPD type J44.9 [facility] [address] [id number] [place] [address] Oct, COPD (chronic obstructive pulmonary disease) with chronic bronchitis J44.9 and Chronic obstructive pulmonary disease, unspecified COPD type J44.9 [facility] [address] [id number] [place] [address] Oct, COPD (chronic obstructive pulmonary disease) with chronic bronchitis J44.9 and Chronic obstructive pulmonary disease, unspecified COPD type J44.9 [facility] [address] [id number] [place]LAND[place] [address] Oct, Benign essential hypertension I10 and Neck pain M54.2 [facility] [employer] [place] [address] AVE [id number] [place] [address] Sep, PAD (peripheral artery disease) I73.9 ; Claudication of both lower extremities I73.9 ; Bilateral carotid artery disease I77.9 ; Benign essential hypertension I10 ; Hyperlipemia E78.5 and Dyspnea on exertion R06.09 [facility] [address] [id number] [place] [address] Aug, Benign essential hypertension I10 ; Gastroesophageal reflux disease without esophagitis K21.9 and Cervical radiculopathy M54.12 [facility] [address] [id number] [place] [address] Aug, Gastroesophageal reflux disease without esophagitis K21.9 [facility] [address] [id number] [place] [address]4027[address] Aug, COPD (chronic obstructive pulmonary disease) with chronic bronchitis J44.9 [facility] [address] [id number] [place]LAND[place] [address] Jul, [facility] [address] [id number] [place] [address] Jul, Benign essential hypertension I10 [facility] [address] [id number] [place] [address] Jul, [facility] [address] [id number] [place] [address] Jul, COPD (chronic obstructive pulmonary disease) with chronic bronchitis J44.9 [facility] [address] [id number] [place] [address]82[address] Jul, Neck pain M54.2 [facility] [address] [id number] [place]LAND[place] [address]6986[address] Jun, Claudication of both lower extremities I73.9 ; PAD (peripheral artery disease) I73.9 ; Bilateral carotid artery disease I77.9 ; CAD (coronary artery disease) I25.10 ; Tobacco abuse Z72.0 ; Benign essential hypertension I10 ; Hyperlipemia E78.5 and Non-rheumatic mitral valve stenosis I34.2 [facility] [address] [id number] [place] 311[address]907 Jun, Chronic obstructive pulmonary disease, unspecified COPD type J44.9 [facility] [address] [id number] [place] [address] May, [facility] [address] [id number] [place] [address] May, Chronic obstructive pulmonary disease, unspecified COPD type J44.[address] [facility] [address] [id number] [place] [address] May, Neck pain M54.2 ; Chronic obstructive pulmonary disease, unspecified COPD type J44.9 and Cervical radiculopathy M54.[address] [facility] [address] [id number] [place] [address] May, [facility] [address] [id number] [place] [address] Apr, [facility] [address] [id number] [place] 259[address] Apr, Gastroesophageal reflux disease without esophagitis K21.[address] [facility] [address] [id number] [place] [address]69[address]156 Apr, COPD (chronic obstructive pulmonary disease) with chronic bronchitis J44.[address] [facility] [address] [id number] [place] 676217[address] Apr, [facility] [address] [id number] [place] [address]647[address] Apr, [facility] [address] [id number] [place] [address] Apr, COPD (chronic obstructive pulmonary disease) with chronic bronchitis J44.9 ; Benign essential hypertension I10 ; Tobacco abuse counseling Z71.6 and Hyperlipemia E78.[address] [facility] [address] [id number] [place] 47188[address] February, COPD (chronic obstructive pulmonary disease) with chronic bronchitis J44.[address] [facility] [address] [id number] [place] [address]857[address] Jan, [facility] [address] [id number] [place] 917254367 Jan, COPD (chronic obstructive pulmonary disease) with chronic bronchitis J44.9 [facility] [address] [id number] [place] 50516[address]99 Oct, COPD (chronic obstructive pulmonary disease) with chronic bronchitis J44.9 [facility] [address] [id number] [place] [id number] Oct, Winter itch L29.[address] [facility] [address] [id number] [place] [address]70249474 Oct, COPD (chronic obstructive pulmonary disease) with chronic bronchitis J44.9 ; Benign essential hypertension I10 ; Tobacco abuse Z72.0 and Gastroesophageal reflux disease without esophagitis K21.9 [facility] [address] [id number] [place] 431942485 Sep, Benign essential hypertension I10 [facility] [address] [id number] [place] [address]36[address] Aug, [facility] [address] [id number] [place] 185903691 Jul, [facility] [address] [id number] [place] 841543[address] Apr, [facility] [address] [id number] [place] [address]59010818 Apr, Abdominal bloating R14.0 ; Fatty liver K76.0 ; Diverticulosis of intestine without bleeding, unspecified intestinal tract location K57.90 ; Chronic obstructive pulmonary disease, unspecified COPD type J44.9 and Benign essential hypertension I10 [facility] [address] [id number] [place] [address]137005[address] Apr, Mild early onset dysthymic disorder, in partial remission, with melancholic features, 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 [facility] [address] [id number] [place] 4639750[address] 04 Mar, 2016 Abdominal muscle strain, initial encounter S39.011A [facility] [address] [id number] [place] 477285588 Jan, Pancreatitis K85.9 ; Abdominal bloating R14.0 ; Chronic bronchitis J42 and Chronic pain G89.29 [facility] [address] [id number] [place] [address]222[address] Nov, [facility] [address] [id number] [place] 333567926 Nov, [facility] [address] [id number] [place] 2624[address]298 Nov, Chronic bronchitis J42 ; Tobacco abuse Z72.0 and Tobacco abuse counseling Z71.6 [facility] [address] [id number] [place] 581424[address] Oct, [facility] [address] [id number] [place] 593998733 Oct, Chronic bronchitis J42 ; Tobacco abuse Z72.0 and Benign essential hypertension I10 [facility] [address] [id number] [place] 406584847 Oct, Chronic bronchitis J42 ; Tobacco abuse Z72.0 ; Tobacco abuse counseling Z71.6 ; Benign essential hypertension I10 and Hyperlipemia E78.5 [facility] [address] [id number] [address] Sep, [facility] [address] [address] [id number] [place]LAND[place] 2361555[address] Jul, [facility] [address] [id number] [address] Jul, Essential (primary) hypertension I10 [facility] [address]00565100[place] [address] Jul, [facility] [address] [id number] [place], [place] 88873[address]25 Jul, [facility] [address] [id number] [place] 424630940 Jun, Benign essential hypertension 401.1 ; Generalized edema 782.3 ; Chronic pain 338.29 and Hyperlipemia 272.4 [facility] [place] [address] [facility] [address] [id number] [place]LAND[place] [address]20731764 May, Upper respiratory infection 465.9 and Cough 786.2 [facility] [address] [address] [facility] [address] [id number] [place] 496216282 Mar, Upper respiratory infection 465.9 ; Tobacco abuse 305.1 and Cough 786.2 [facility] [address] [id number] [place] 562300158 February, [facility] Doming[address] [facility] [address] [id number] [place] [id number] February, Status post bilateral carotid endarterectomy V45.89 ; CAD ( coronary artery disease) 414.00 ; Benign essential hypertension 401.1 ; Hyperlipemia 272.4 ; Tobacco abuse 305.1 ; Tobacco abuse counseling V65.42 and Chronic bronchitis 491.9 [facility] [id number] [place] [address] 5561 Jan, [facility] [id number] [place] [address]3928- 3539 Jan, [facility] [id number] [place] [id number]- 8609 Dec, [facility] [id number] [place] [address]- 9388 Dec, [facility] [id number] [place] [address]- 0182 Nov, [facility] [id number] [place] [address]- 1076 Nov, [facility] [id number] [place] [address]- 3506 Nov, [facility] [id number] [place] [address]- 2676 Nov, [facility] [address] [id number] [place] [address]- [address]206 17 Nov, 2014 [facility] [address] [id number] [place] [address]- [address] Nov, 2014 [facility] [place] [facility] [address] [id number] [place] [address]- 8136 10 Nov, 2014 [facility] [place] [facility] [address] [id number] [place] [address]- 8476 Nov, [facility] [place] [facility] [address] [id number] [place] [address]- 6550 Nov, [facility] [place] [facility] [address] [id number] [place] [address]- 6176 Oct, [facility] [address] [facility] [id number] [place] [address]- 2705 Oct, [facility] [address] [id number] [place] [address]- 0934 Oct, [facility] [address] [facility] [id number] [place] [address]- 8057 Oct, [facility] [address] [facility] [id number] [place] [address]- 7290 Oct, [facility] [address] [facility] [id number] [place] [address]- 6521 Oct, [facility] [address] [id number] [address]- 4817 Oct, [facility] [place] [facility] [address] [facility] [id number] [place] [address]- 5749 Oct, [facility] [place] [facility] [address] [facility] [id number] [place] [address]- 9556 Oct, [facility] [place] [facility] [address] [facility] [id number] [address]- [address] Oct, [facility] [address] [id number] [place] [id number] Oct, [facility] [place] [facility] [address] [id number] [place] [address]- 1338 Oct, [facility] [place] [facility] [address] [id number] [place] [address]- 3663 Sep, [facility] [place] [facility] [address] [facility] [id number] [place] [address]- 5299 Sep, [facility] [place] [facility] [address] [id number] [place] [address]- 3537 Aug, [facility] [place] [facility] [address] [id number] [place] [address]- 2434 Aug, [facility] [place] [facility] [address] [id number] [place] [address]- 3477 Aug, [facility] [place] [facility] [address] [facility] [id number] [place] [address]- 3016 Aug, [facility] [place] [facility] [address] [id number] [address]- 8628 Jul, [facility] [place] [facility] [address] [id number] [place] [address]- 1261 Jul, [facility] [place] [facility] [address] [facility] [id number] [address]- 7826 Jun, [facility] [place] [facility] [address] [id number] [address]- 7685 Jun, [facility] [place] [facility] [address] [id number] [address]- 0605 May, [facility] [place] [facility] [address] [id number] [place] [address]- 2567 May, [facility] [place] [facility] [address] [id number] [address]- 3505 May, [facility] [place] [facility] [address] [facility] [id number] [address]- 0883 May, [facility] [place] [facility] [address] [id number] [place] [address]- 1423 Jan, [facility] [place] [facility] [address] [id number] [place] [address]- 7549 Jan, [facility] [place] [facility] [address] [id number] [place] [address]- 1756 Nov, [facility] [place] [facility] [address] [id number] [place] [address]- 9586 Nov, [facility] [place] [facility] [address] [id number] [place] [address] 2542 Nov, [facility] [place] [facility] [address] [id number] [place] [address]- 8696 Nov, [facility] [place] [facility] [address] [id number] [place] [address]- 6797 Nov, [facility] [place] [facility] [address] [id number] [place] [address]- 9029 Nov, [facility] [place] [facility] [address] [id number] [place] [address]- 0358 Nov, [facility] [place] [facility] [address] [facility] [id number] [place] [address]- 7203 Nov, [facility] [place] [facility] [address] [facility] [id number] [place] [address]- 9469 Nov, [facility] [place] [facility] [address] [facility] [id number] [place] [address]- 0036 Nov, [facility] [place] [facility] [address] [id number] [place] [address]- 4853 Oct, [facility] [place] [facility] [address] [id number] [place] [address]- 4101 Oct, [facility] [place] [facility] [address] [facility] [id number] [place] [address]- 3067 Oct, [facility] [place] [facility] [address] [id number] [place] [address]- 8831 Oct, [facility] [place] [facility] [address] [id number] [place]- 0585 Sep, [facility] [place] [facility] [address] [id number] [place] 7587[place]- 3446 Sep, [facility] [place] [facility] [address] [facility] [id number] [place]- 2565 Aug, [facility] [place] [facility] [address] [id number] [address]- 0576 Aug, [facility] [place] [facility] [address] [id number] [place] [address]- 4423 Aug, [facility] [place] [facility] [address] [id number] [address]- 7307 Aug, [facility] [place] [facility] [address] [id number] [address]- 1961 Aug, [facility] [place] [facility] [address] [id number] [address]- 3977 Aug, [facility] [place] [facility] [address] [id number] [address]- 7862 Aug, [facility] [place] [facility] [address] [id number] [address]- 6150 Aug, [facility] [place] [facility] [address] [id number] [address]- 1280 Jul, [facility] [place] [facility] [address] [id number] [address]- 8381 Jul, [facility] [place] [facility] [address] [id number] [address]- 8592 Jul, [facility] [place] [facility] [address] [id number] [address]- 6758 Jul, [facility] [place] [facility] [address] [facility] [id number] [place] 958[place]- 3226 Jul, [facility] [place] [facility] [address]00565100[place] [address] 2546 Jun, [facility] [address]00565100[place] [address]- 4820 May, [facility] [id number] [address] 2546 Apr, [facility] [address]00565100[place] [address]- 4672 February, [facility] [address]00565100[place] [address]- 2796 Jan, [facility] [id number] [place] [address]32- 6168 Jan, [facility] [address]00565100[place] [address]- 2716 Dec, [facility] [address]00565100[place] [address]- 8156 Dec, [facility] [address]00565100[place] [address]- 9093 Dec, [facility] [address]00565100[place] [address]- 5441 Nov, [facility] [address] [id number] [address]- 1129 Nov, [facility] [address]00565100[place] [address]- 6666 Nov, [facility] [address] [id number] [address]- 3300 Nov, IMMUNIZATIONS No Known Immunizations SOCIAL HISTORY Never Assessed REASON FOR VISIT [facility] Contact PLAN OF CARE Activity Details Follow Up prn Reason:when believes needs same VITAL SIGNS MEDICATIONS Unknown Medications RESULTS No Results PROCEDURES No Known procedures INSTRUCTIONS MEDICATIONS ADMINISTERED No Known Medications MEDICAL (GENERAL) HISTORY Type Description Date Medical History GERD Medical History hypertension Medical History 1999 mild stroke syndrome- CT head 02/2015 showed chronic ischemic changes Medical History chronic neck and back pain Medical History [place] x's 2 1996 and 2011 Medical History [...] 02/2015 Surgical History coronary angiography Dr Traylor [facility]- normal EF, LV function,-minimal RCA blockage <20% 1996 [facility], mild nonspecific bulbar duodenitis 1996 Surgical History carotid endarterectomy, right- [facility] 01/2015 Surgical History Heart cath with PTCA 2013 Surgical History Colonoscopy- tubular adenoma, hyperplastic polyp- repeat Colonoscopy 12/2016 Hospitalization History heart attack 1996 Hospitalization History slurred speech, fever, left arm pain [facility] [place] February 2015 Hospitalization History Pancreatitis 12/2015
--- OUTSIDE RECORDS SUMMARY | 2018-02-19 06:49 | XMS REPORT ---
Author Author TIFFANIE CAMPOS [facility] Address [address] [place] [address] Care Team Providers Care Drama Teacher Name Role Phone TIFFANIE CAMPOS Unavailable PROBLEMS Type Condition ICD9-CM Code ADZ60-ZY Code Onset Dates Condition Status SNOMED Code Problem Gastroesophageal reflux disease without esophagitis K21.9 Active 917013537 Problem Bilateral carotid artery disease I77.9 Active 044511186 Problem Claudication of both lower extremities I73.9 Active 683259584 Problem Mixed hyperlipidemia E78.2 Active 306201462 Problem Peripheral arterial disease I73.9 Active 218828293 Problem Chronic obstructive pulmonary disease, unspecified COPD type J44.9 Active 17293123 Problem PAD (peripheral artery disease) I73.9 Active 668804935 Problem Claudication I73.9 Active 61699195 Problem Non-rheumatic mitral regurgitation I34.0 Active 459022898 Problem Tobacco abuse Z72.0 Active 32888139 Problem Benign essential hypertension I10 Active 8384124 Problem Hyperlipemia E78.5 Active 03196161 Problem Chronic bronchitis J42 Active 68052813 Problem Diverticulosis of intestine without bleeding, unspecified intestinal tract location K57.90 Active 45176094 Problem Abdominal bloating R14.0 Active 029849209 Problem Chronic pain G89.29 Active 39221579 Problem Fatty liver K76.0 Active 246289831 Problem CAD (coronary artery disease) I25.10 Active 43617005 Problem COPD (chronic obstructive pulmonary disease) with chronic bronchitis J44.9 Active 164263900 ALLERGIES No Information ENCOUNTERS Encounter Location Date Diagnosis [facility] [address] [id number] [place] [id number] Jan, COPD (chronic obstructive pulmonary disease) with chronic bronchitis J44.9 [facility] [address] [id number] [place] [id number] Jan, [facility] [address] [id number] [place] [address] Jan, Peripheral arterial disease I73.9 ; Benign essential hypertension I10 ; Bilateral carotid artery disease I77.9 ; Claudication of both lower extremities I73.9 ; Mixed hyperlipidemia E78.2 ; Tobacco use Z72.0 and Non- rheumatic mitral regurgitation I34.0 [facility] [address] [id number] [place] [address] Jan, RUQ pain R10.11 ; Gastroesophageal reflux disease without esophagitis K21.9 and Change in stool R19.5 [facility] [address] [id number] [place] [address] Jan, [facility] [address] [id number] [place] [id number] Jan, Neck pain M54.2 ; Benign essential hypertension I10 ; COPD ( chronic obstructive pulmonary disease) with chronic bronchitis J44.9 and Chronic obstructive pulmonary disease, unspecified COPD type J44.9 [facility] [address] [id number] [place] [address] Jan, Chronic obstructive pulmonary disease, unspecified COPD type J44.9 [facility] [address] [id number] [place] [address] Dec, [facility] [address] [id number] [place] [id number] Dec, [facility] [address] [id number] [place] [address] Dec, COPD (chronic obstructive pulmonary disease) with chronic bronchitis J44.9 [facility] [address] [facility] [id number], [place] [address] Dec, [facility] [address] [facility] [id number], [place] [address] Dec, [facility] [address] [id number] [place] [id number] Nov, [facility] [address] [id number] [place] [address] Nov, Benign essential hypertension I10 and COPD (chronic obstructive pulmonary disease) with chronic bronchitis J44.9 [facility] [address] [id number] [place] [address] Nov, Hyperlipemia E78.5 ; Benign essential hypertension I10 ; COPD ( chronic obstructive pulmonary disease) with chronic bronchitis J44.9 ; Encounter for immunization Z23 ; Gastroesophageal reflux disease without esophagitis K21.9 and Chronic pain G89.29 [facility] [address] [id number] [place]BAR[place] [id number] Oct, COPD (chronic obstructive pulmonary disease) with chronic bronchitis J44.9 and Chronic obstructive pulmonary disease, unspecified COPD type J44.9 [facility] [address] [id number] [place] [id number] Oct, COPD (chronic obstructive pulmonary disease) with chronic bronchitis J44.9 and Chronic obstructive pulmonary disease, unspecified COPD type J44.9 [facility] [address] [id number] [place] [address] Oct, COPD (chronic obstructive pulmonary disease) with chronic bronchitis J44.9 and Chronic obstructive pulmonary disease, unspecified COPD type J44.9 [facility] [address] [id number] [place] [address] Oct, Benign essential hypertension I10 and Neck pain M54.2 [facility] [address] [employer] [place] [address] AVE [id number] [place] [id number] Sep, PAD (peripheral artery disease) I73.9 ; Claudication of both lower extremities I73.9 ; Bilateral carotid artery disease I77.9 ; Benign essential hypertension I10 ; Hyperlipemia E78.5 and Dyspnea on exertion R06.[address] [id number] [place] [address] Aug, Benign essential hypertension I10 ; Gastroesophageal reflux disease without esophagitis K21.9 and Cervical radiculopathy M54.[address] [facility] [address] [id number] [place] [address] Aug, Gastroesophageal reflux disease without esophagitis K21.9 [facility] [address] [id number] [place] [address] Aug, COPD (chronic obstructive pulmonary disease) with chronic bronchitis J44.9 [facility] [address] [id number] [place] [id number] Jul, [facility] [address] [id number] [place] [address] Jul, Benign essential hypertension I10 [facility] [address] [id number] [place] [address] Jul, [facility] [address] [id number] [place] [address] Jul, COPD (chronic obstructive pulmonary disease) with chronic bronchitis J44.9 [facility] [address] [id number] [place] [address] Jul, Neck pain M54.2 [facility] [address] [id number] [place] [address] Jun, Claudication of both lower extremities I73.9 ; PAD (peripheral artery disease) I73.9 ; Bilateral carotid artery disease I77.9 ; CAD (coronary artery disease) I25.10 ; Tobacco abuse Z72.0 ; Benign essential hypertension I10 ; Hyperlipemia E78.5 and Non-rheumatic mitral valve stenosis I34.2 [facility] [address] [id number] [place] [id number] Jun, Chronic obstructive pulmonary disease, unspecified COPD type J44.9 [facility] [address] [id number] [place] [address] May, [facility] [address] [id number] [place] [address] May, Chronic obstructive pulmonary disease, unspecified COPD type J44.9 [facility] [address] [id number] [place] [address] May, Neck pain M54.2 ; Chronic obstructive pulmonary disease, unspecified COPD type J44.9 and Cervical radiculopathy M54.[address] [facility] [address] [id number] [place] [id number] May, [facility] [address] [id number] [place] [address] Apr, [facility] [address] [id number] [place] [address] Apr, Gastroesophageal reflux disease without esophagitis K21.[address] [facility] [address] [id number] [place] [address] Apr, COPD (chronic obstructive pulmonary disease) with chronic bronchitis J44.[address] [facility] [address] [id number] [place] [address] Apr, [facility] [address] [id number] [place] 1867[address] Apr, [facility] [address] [id number] [place] [address] Apr, COPD (chronic obstructive pulmonary disease) with chronic bronchitis J44.9 ; Benign essential hypertension I10 ; Tobacco abuse counseling Z71.6 and Hyperlipemia E78.[address] [facility] [address] [id number] [place] [address] February, COPD (chronic obstructive pulmonary disease) with chronic bronchitis J44.[address] [facility] [address] [id number] [place] [address] Jan, [facility] [address] [id number] [place] [address] Jan, COPD (chronic obstructive pulmonary disease) with chronic bronchitis J44.[address] [facility] [address] [id number] [place] [address] Oct, COPD (chronic obstructive pulmonary disease) with chronic bronchitis J44.[address] [facility] [address] [id number] [place] [address] Oct, Winter itch L29.8 [facility] [address] [id number] [place] [id number] Oct, COPD (chronic obstructive pulmonary disease) with chronic bronchitis J44.9 ; Benign essential hypertension I10 ; Tobacco abuse Z72.0 and Gastroesophageal reflux disease without esophagitis K21.9 [facility] [address] [id number] [place] [address] Sep, Benign essential hypertension I10 [facility] [address] [id number] [place] [address] Aug, [facility] [address] [address] [id number] [place] [address] Jul, [facility] [address] [id number] [place] [address] Apr, [facility] [address] [id number] [place] [id number] Apr, Abdominal bloating R14.0 ; Fatty liver K76.0 ; Diverticulosis of intestine without bleeding, unspecified intestinal tract location K57.90 ; Chronic obstructive pulmonary disease, unspecified COPD type J44.9 and Benign essential hypertension I10 [facility] [address] [address] [id number] [place] [address] Apr, Mild early onset dysthymic disorder, in partial remission, with melancholic features, 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 [facility] [address] [id number] [place] [id number] Mar, Abdominal muscle strain, initial encounter S39.011A [facility] [address] [id number] [place] [id number] Jan, Pancreatitis K85.9 ; Abdominal bloating R14.0 ; Chronic bronchitis J42 and Chronic pain G89.29 [facility] [address] [id number] [place] [address] Nov, [facility] [address] [id number] [place] [address] Nov, [facility] [address] [id number] [place] 644801571 Nov, Chronic bronchitis J42 ; Tobacco abuse Z72.0 and Tobacco abuse counseling Z71.[address] [facility] [address] [id number] [place] [address] Oct, [facility] [address] [id number] [place] 404138480 Oct, Chronic bronchitis J42 ; Tobacco abuse Z72.0 and Benign essential hypertension I10 [facility] [address] [id number] [place] [id number] Oct, Chronic bronchitis J42 ; Tobacco abuse Z72.0 ; Tobacco abuse counseling Z71.6 ; Benign essential hypertension I10 and Hyperlipemia E78.5 [facility] [address] [address] Sep, [facility] [address] [id number] [place] [address]28[address]698 Jul, [facility] [address] [id number] [address] Jul, Essential (primary) hypertension I10 [facility] [address]100[place], [place] [address]72[address] Jul, [facility] [address] [id number] [place] [address] Jul, [facility] [address] [id number] [place], [place] [id number] Jun, Benign essential hypertension 401.1 ; Generalized edema 782.3 ; Chronic pain 338.29 and Hyperlipemia 272.4 [facility] [address] [id number] [place] [id number] May, Upper respiratory infection 465.9 and Cough 786.2 [facility] [address] [id number] [place] [id number] Mar, Upper respiratory infection 465.9 ; Tobacco abuse 305.1 and Cough 786.2 [facility] [address] [id number] [place] [id number] February, [facility] [address] [id number] [place] [address] February, Status post bilateral carotid endarterectomy V45.89 ; CAD ( coronary artery disease) 414.00 ; Benign essential hypertension 401.1 ; Hyperlipemia 272.4 ; Tobacco abuse 305.1 ; Tobacco abuse counseling V65.42 and Chronic bronchitis 491.9 [facility] [id number] [place] [address]- 3115 Jan, [facility] [id number] [place] [address]92- 1906 Jan, [facility] [id number] [place] [address]2850- 6693 Dec, [facility] [id number] [place] [address] 527[address]- 0049 Dec, [facility] [id number] [place] [address] 995850- 2293 Nov, [facility] [id number] [place] [address] 219[address]- 4960 Nov, [facility] [id number] [place] [address]30- 4496 Nov, [facility] [id number] [place] [address] 29910- 4616 Nov, [facility] [id number] [place] [address] 15816- 4746 Nov, [facility] [id number] [place] [address] 49976- 1306 Nov, [facility] [id number] [place] [address] 60392- 9631 Nov, [facility] [place] [facility] [address] [id number] [place] [address]- 7261 Nov, [facility] [place] [facility] [address] [id number][place] [address]- 3349 Nov, [facility] [place] [facility] [address] [id number] [place] [address]- 6436 Oct, [facility] [place] [facility] [address] [id number], [place] [address]- 7294 Oct, [facility] [place] [facility] [address] [id number] [place] [address]- 8424 Oct, [facility] [place] [facility] [address] [id number], [place] [address]- 9081 Oct, [facility] [place] [facility] [address] [id number], [place] [address]- 0180 Oct, [facility] [place] [facility] [address] [id number], [place] [address]- 6170 Oct, [facility] [place] [facility] [address] [id number], [place] [address]- 7118 Oct, [facility] [place] [facility] [address] [facility] [id number], [place] [address]- 8057 Oct, [facility] [place] [facility] [address] [id number], [place] [address]- 3193 Oct, [facility] [place] [facility] [address] [id number], [place] [address]- 4416 Oct, [facility] [address] [id number], [place] [id number] Oct, [facility] [place] [facility] [address] [facility] [id number], [place] [address]- 2025 Oct, [facility] [place] [facility] [address] [facility] [id number], [place] [address]- 4954 Sep, [facility] [place] [facility] [address] [id number] [place] [address]- 8026 Sep, [facility] [place] [facility] [address] [id number] [place] [address]- 4484 Aug, [facility] [place] [facility] [address] [id number] [place] [address]- 1787 Aug, [facility] [place] [facility] [address] [id number] [place] [address]- 2733 Aug, [facility] [place] [facility] [address] [id number] [place] [address]- 0781 Aug, [facility] [place] [facility] [address] [id number] [place] [address]- 3104 Jul, [facility] [place] [facility] [address] [id number] [place] [address]- 0741 Jul, [facility] [place] [facility] [address] [id number] [place] [address]- 9881 Jun, [facility] [place] [facility] [address] [id number] [place] [address]- 0984 Jun, [facility] [place] [facility] [address] [id number] [place] [address]- 7511 May, [facility] [place] [facility] [address] [id number] [place] [address]- 9133 May, [facility] [place] [facility] [address] [id number] [place] [address]- 2221 May, [facility] [place] [facility] [address] [id number] [place] [address]- 0059 May, [facility] [place] [facility] [address] [id number] [place] [address]- 9921 Jan, [facility] [place] [facility] [address] [id number] [place] [address]- 5833 Jan, [facility] [place] [facility] [address] [id number] [place] [address]- 6074 Nov, [facility] [place] [facility] [address] [id number] [place] [address]- 0677 Nov, [facility] [place] [facility] [address] [id number] [place] [address]- 4686 Nov, [facility] [place] [facility] [address] [id number] [place] [address]- 8786 Nov, [facility] [place] [facility] [address] [id number] [place] [address]- 6766 Nov, [facility] [place] [facility] [address] [id number] [place] [address]- 6583 Nov, [facility] [place] [facility] [address] [id number] [place] [address]- 4574 Nov, [facility] [place] [facility] [address] [id number] [place] [address]- 8456 Nov, [facility] [place] [facility] [address] [id number] [place] [address]- 6209 Nov, [facility] [place] [facility] [address] [id number] [place] [address]- 5920 Nov, [facility] [place] [facility] [address] [id number] [place] [address]- 9085 Oct, [facility] [place] [facility] [address] [id number] [place] [address]- 3472 Oct, [facility] [place] [facility] [address] [id number] [place] [address]- 3976 Oct, [facility] [place] [facility] [address] [id number] [place] [address]- 6642 Oct, [facility] [place] [facility] [address] [id number] [place] [address]- 6073 Sep, [facility] [place] [facility] [address] [id number] [place] [address]- 8240 Sep, [facility] [place] [facility] [address] [id number] [place] [address]- 3264 Aug, [facility] [place] [facility] [address] [id number] [place] [address]- 8322 Aug, [facility] [place] [facility] [address] [id number] [place] [address]- 0394 Aug, [facility] [place] [facility] [address] [id number] [place] [address]- 2588 Aug, [facility] [place] [facility] [address] [id number] [place] [address]- 5958 Aug, [facility] [place] [facility] [address] [id number] [place] [address]- 5052 Aug, [facility] [place] [facility] [address] [id number] [place] [address]- 7361 Aug, [facility] [place] [facility] [address] [id number] [place] [address]- 9792 Aug, [facility] [place] [facility] [address] [id number] [place] [address]- 1352 Jul, [facility] [place] [facility] [address] [id number] [place] [address]- 8591 Jul, [facility] [place] [facility] [address] [id number] [place] [address]- 1762 Jul, [facility] [place] [facility] [address] [id number] [place] [address]- 0245 Jul, [facility] [place] [facility] [address] [id number] [place] [address]- 9228 Jul, [facility] [place] [facility] [address] [id number] [place] 1396 Jun, [facility] [place] [facility] [address] [id number] [place] [address]- 9125 May, [facility] [place] [facility] [address] [id number] [place]- 0711 Apr, [facility] [address] [id number], [place] [address]- 7336 February, [facility] [address], [place] [address] 2546 Jan, [facility] [address], [place] [address]- 2546 Jan, [facility] [address], [place] [address] 2546 Dec, [facility] [address]65[address], [place] [address]- 2546 Dec, [facility] [address] [place] [address] 31636- 2546 Dec, [facility] [address] [place] [address] 45664- 4036 Nov, [facility] [address], [place] [address] 2546 Nov, [facility] [address], [place] [address]- 8876 Nov, [facility] [address], [place] [address]- 5526 Nov, IMMUNIZATIONS No Known Immunizations SOCIAL HISTORY Never Assessed REASON FOR VISIT Repository Medication PLAN OF CARE VITAL SIGNS MEDICATIONS Medication Instructions Dosage Frequency Start Date End Date Duration Status Gabapentin 600 MG Orally 3 times a day 1 tablet 8h Active RESULTS No Results PROCEDURES No Known procedures INSTRUCTIONS MEDICATIONS ADMINISTERED No Known Medications MEDICAL (GENERAL) HISTORY Type Description Date Medical History GERD Medical History hypertension Medical History 1999 mild stroke syndrome- CT head 02/2015 showed chronic ischemic changes Medical History chronic neck and back pain Medical History OR x's 2 1996 and 2011 Medical History Chronic bronchitis- PFT 2012 normal Medical History Hyperlipidemia Medical History ECHO 2013- mild tricuspid and mitral reguirg. Mild aortic sclerosis- EF 60% Medical History CT abdomen/pelvis- 12/2015- Mild diverticulosis, fatty liver, artherosclerosis of aorta Medical History Fatty liver- CT 2016 Medical History Tubular Adenoma and hyperplastic polyp dx 06/2016 Medical History Esophagitis Surgical History carotid endarterectomy, left side of neck 02/2015 [facility] [place], [facility] function,-minimal RCA blockage <20% 1996 [facility], mild nonspecific bulbar duodenitis 1996 Surgical History carotid endarterectomy, right- [facility] 01/2015 Surgical History Heart cath with PTCA 2013 Surgical History Colonoscopy- tubular adenoma, hyperplastic polyp- repeat Colonoscopy 12/2016 Hospitalization History heart attack 1996 Hospitalization History slurred speech, fever, left arm pain [facility] [place] February 2015 Hospitalization History Pancreatitis 12/2015
--- OUTSIDE RECORDS SUMMARY | 2018-02-19 06:51 | XMS REPORT ---
Author Author TIFFANIE CAMPOS [facility] Address [address] [place] [address] Care Team Providers Care Special Loan Officer Name Role Phone TIFFANIE CAMPOS Unavailable PROBLEMS Type Condition ICD9-CM Code BSG59-DH Code Onset Dates Condition Status SNOMED Code Problem Fatty liver K76.0 Active 426509034 Problem Abdominal bloating R14.0 Active 196403642 Problem Diverticulosis of intestine without bleeding, unspecified intestinal tract location K57.90 Active 39050908 Problem Chronic obstructive pulmonary disease, unspecified COPD type J44.9 Active 19256490 Problem Bilateral carotid artery disease I77.9 Active 982584198 Problem COPD (chronic obstructive pulmonary disease) with chronic bronchitis J44.9 Active 517333947 Problem Gastroesophageal reflux disease without esophagitis K21.9 Active 143580051 Problem Claudication of both lower extremities I73.9 Active 832183203 Problem PAD (peripheral artery disease) I73.9 Active 981448841 Problem Tobacco abuse Z72.0 Active 26808694 Problem Benign essential hypertension I10 Active 6639343 Problem Hyperlipemia E78.5 Active 14969775 Problem Chronic pain G89.29 Active 15753637 Problem Chronic bronchitis J42 Active 70093946 Problem CAD (coronary artery disease) I25.10 Active 65311777 ALLERGIES No Information ENCOUNTERS Encounter Location Date Diagnosis [facility] [address] [id number] [id number] Jan, [facility] [address] [id number] [address] Jan, RUQ pain R10.11 ; Gastroesophageal reflux disease without esophagitis K21.9 and Change in stool R19.5 [facility] [address] [id number], [place] [id number] Jan, [facility] [address] [id number] [place] [address] Jan, Neck pain M54.2 ; Benign essential hypertension I10 ; COPD ( chronic obstructive pulmonary disease) with chronic bronchitis J44.9 and Chronic obstructive pulmonary disease, unspecified COPD type J44.9 [facility] [address] [id number], [place] [id number] Jan, Chronic obstructive pulmonary disease, unspecified COPD type J44.9 [facility] [address] [id number], [place] [address] Dec, [facility] [address] [id number][place] [id number] Dec, [facility] [address] [id number][place] [id number] Dec, COPD (chronic obstructive pulmonary disease) with chronic bronchitis J44.9 [facility] [address]005[address], [place] [address] Dec, [facility] [address] [facility] [id number], [place] [address] Dec, [facility] [address] [id number][place] [address] Nov, [facility] [address] [id number], [place] [address] Nov, Benign essential hypertension I10 and COPD (chronic obstructive pulmonary disease) with chronic bronchitis J44.9 [facility] [address] [id number][place] [address] Nov, Hyperlipemia E78.5 ; Benign essential hypertension I10 ; COPD ( chronic obstructive pulmonary disease) with chronic bronchitis J44.9 ; Encounter for immunization Z23 ; Gastroesophageal reflux disease without esophagitis K21.9 and Chronic pain G89.29 [facility] [address] [id number], [place] [address] Oct, COPD (chronic obstructive pulmonary disease) with chronic bronchitis J44.9 and Chronic obstructive pulmonary disease, unspecified COPD type J44.9 [facility] [address] [id number] [place] [address] Oct, COPD (chronic obstructive pulmonary disease) with chronic bronchitis J44.9 and Chronic obstructive pulmonary disease, unspecified COPD type J44.9 [facility] [address] [address] [id number] [place] [address] Oct, COPD (chronic obstructive pulmonary disease) with chronic bronchitis J44.9 and Chronic obstructive pulmonary disease, unspecified COPD type J44.9 [facility] [address] [id number] [place] [id number] Oct, Benign essential hypertension I10 and Neck pain M54.2 [facility] [address] [id number], [place] [address] Sep, PAD (peripheral artery disease) I73.9 ; Claudication of both lower extremities I73.9 ; Bilateral carotid artery disease I77.9 ; Benign essential hypertension I10 ; Hyperlipemia E78.5 and Dyspnea on exertion R06.09 [facility] [address] [id number], [place] [address] Aug, Benign essential hypertension I10 ; Gastroesophageal reflux disease without esophagitis K21.9 and Cervical radiculopathy M54.12 [facility] [address] [address] [id number], [place] [address] Aug, Gastroesophageal reflux disease without esophagitis K21.9 [facility] [address] [address] [id number], [place] [address] Aug, COPD (chronic obstructive pulmonary disease) with chronic bronchitis J44.9 [facility] [address] [id number] [place] [id number] Jul, [facility] [address] [id number], [place] [address] Jul, Benign essential hypertension I10 [facility] [address] [id number], [place] [address] Jul, [facility] [address] [address] [id number] [place] [address] Jul, COPD (chronic obstructive pulmonary disease) with chronic bronchitis J44.9 [facility] [address] [address] [id number] [place] [address] Jul, Neck pain M54.2 [facility] [address] [address] [id number] [place] [address] Jun, Claudication of both lower extremities I73.9 ; PAD (peripheral artery disease) I73.9 ; Bilateral carotid artery disease I77.9 ; CAD (coronary artery disease) I25.10 ; Tobacco abuse Z72.0 ; Benign essential hypertension I10 ; Hyperlipemia E78.5 and Non-rheumatic mitral valve stenosis I34.2 [facility] [address] [address] [id number], [place] [address] Jun, Chronic obstructive pulmonary disease, unspecified COPD type J44.9 [facility] [address] [address] [id number], [place] [address] May, [facility] [address] [address] [id number], [place] [address] May, Chronic obstructive pulmonary disease, unspecified COPD type J44.9 [facility] [address] [address] [id number], [place] [address]67[address] May, Neck pain M54.2 ; Chronic obstructive pulmonary disease, unspecified COPD type J44.9 and Cervical radiculopathy M54.12 [facility] [address] [address] [id number], [place] [address] May, [facility] [address] [address] [id number] [place] [id number] Apr, [facility] [address] [address] [id number], [place] [address] Apr, Gastroesophageal reflux disease without esophagitis K21.9 [facility] [address] [address] [id number], [place] [address] Apr, COPD (chronic obstructive pulmonary disease) with chronic bronchitis J44.[address] [facility] [address] [id number] [place] [address] Apr, [facility] [address] [id number] [place] [address] Apr, [facility] [address] [id number] [place] [address] Apr, COPD (chronic obstructive pulmonary disease) with chronic bronchitis J44.9 ; Benign essential hypertension I10 ; Tobacco abuse counseling Z71.6 and Hyperlipemia E78.[address] [facility] [address] [id number] [place] [address] February, COPD (chronic obstructive pulmonary disease) with chronic bronchitis J44.[address] [facility] [address] [id number], [place] [address] Jan, [facility] [address] [id number], [place] [address] Jan, COPD (chronic obstructive pulmonary disease) with chronic bronchitis J44.[address] [facility] [address] [id number], [place] 193908643 Oct, COPD (chronic obstructive pulmonary disease) with chronic bronchitis J44.[address] [facility] [address] [id number], [place] [address] Oct, Winter itch L29.[address] [facility] [address] [id number], [place] [address] Oct, COPD (chronic obstructive pulmonary disease) with chronic bronchitis J44.9 ; Benign essential hypertension I10 ; Tobacco abuse Z72.0 and Gastroesophageal reflux disease without esophagitis K21.[address] [facility] [address] [id number] [place] [address] Sep, Benign essential hypertension I[address] [facility] [address] [id number], [place] 233[address]16 Aug, [facility] [address] [id number], [place] [address] Jul, [facility] [address] [id number], [place] [address] Apr, [facility] [address] [id number], [place] [address] Apr, Abdominal bloating R14.0 ; Fatty liver K76.0 ; Diverticulosis of intestine without bleeding, unspecified intestinal tract location K57.90 ; Chronic obstructive pulmonary disease, unspecified COPD type J44.9 and Benign essential hypertension I10 [facility] [address] [id number], [place] [address] Apr, Mild early onset dysthymic disorder, in partial remission, with melancholic features, 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 [id number], [place] [address] Mar, Abdominal muscle strain, initial encounter S39.011A [facility] [address] [place] [address] AVE [id number], [place] 9736[address]998 Jan, Pancreatitis K85.9 ; Abdominal bloating R14.0 ; Chronic bronchitis J42 and Chronic pain G89.29 [facility] [address] [id number], [place] 412[address]96[address] Nov, [facility] [address] [id number], [place] [address] Nov, [facility] [address] [id number], [place] [id number] Nov, Chronic bronchitis J42 ; Tobacco abuse Z72.0 and Tobacco abuse counseling Z71.6 [facility] [address] [id number], [place] [address] Oct, [facility] [address] [id number], [place] [address]95400223 Oct, Chronic bronchitis J42 ; Tobacco abuse Z72.0 and Benign essential hypertension I10 [facility] [address] [id number], [place] 576338912 Oct, Chronic bronchitis J42 ; Tobacco abuse Z72.0 ; Tobacco abuse counseling Z71.6 ; Benign essential hypertension I10 [address] E78.5 [facility] [address] [id number], [place] [address] Sep, [facility] [address] [id number], [place] [address] Jul, [facility] [address]65100[place], [place] [address] Jul, Essential (primary) hypertension I10 [facility] [address] [id number], [place] [address] Jul, [facility] [address] [id number], [place] [address] Jul, [facility] [address] [id number], [place] [address]30 Jun, Benign essential hypertension 401.1 ; Generalized edema 782.3 ; Chronic pain 338.29 and Hyperlipemia 272.4 [facility] [address] [id number], [place] [address] May, Upper respiratory infection 465.9 and Cough 786.2 [facility] [address] [id number], [place] 189837331 Mar, Upper respiratory infection 465.9 ; Tobacco abuse 305.1 and Cough 786.2 [facility] [address] [id number], [place] 212[address] February, [facility] [address] [id number], [place] 756704347 February, Status post bilateral carotid endarterectomy V45.89 ; CAD ( coronary artery disease) 414.00 ; Benign essential hypertension 401.1 ; Hyperlipemia 272.4 ; Tobacco abuse 305.1 ; Tobacco abuse counseling V65.42 [address] Chronic bronchitis 491.9 [facility] [address] [facility] [id number], [place] [address] Jan, [facility] [place] [facility] [address] [id number] [place] [address] Jan, [facility] [place] [facility] [address] [id number] [place] [address] Dec, [facility] [place] [facility] [address] [id number] [place] [address]- [address] Dec, [facility] [place] [facility] [address] [id number] [place] [address]- [address]85 Nov, [facility] [place] [facility] [address] [id number] [place] [address]- [address]40 Nov, [facility] [place] [facility] [address] [id number] [place] [address]- [address] Nov, 2014 [facility] [place] [facility] [address] [id number] [place] [address]- 8966 Nov, [facility] [place] [facility] [address] [id number] [place] [address]- [address]87 Nov, 2014 [facility] [place] [facility] [address] [id number] [place] [address]- [address] Nov, [facility] [place] [facility] [address] [id number] [place] [address]- 8[address] Nov, [facility] [place] [facility] [address] [id number] [place] [address]- 4626 Nov, [facility] [place] [facility] [address] [id number] [place] [address] Nov, [facility] [place] [facility] [address] [id number] [place] [address]- 4935 Oct, [facility] [place] [facility] [address] [id number] [place] [address]- [address] Oct, [facility] [place] [facility] [address] [id number] [place] [address]- [address]248 Oct, [facility] [place] [facility] [address] [id number], [place] [address]- [address] Oct, [facility] [place] [facility] [address] [id number] [place] [address]- 6282 Oct, [facility] [place] [facility] [address] [facility] [id number] [place] [address]- 5736 Oct, [facility] [place] [facility] [address] [facility] [id number] [place] [address]- 8126 Oct, [facility] [place] [facility] [address] [facility] [id number] [place] [address]- 4377 Oct, [facility] [place] [facility] [address] [id number] [place] [address]- [address] Oct, [facility] [place] [facility] [address] [id number] [place] [address]- 27[address] Oct, [facility] [id number] [id number] Oct, [facility] [place] [facility] [address] [id number], [place] [address]- [address] Oct, [facility] [place] [facility] [address] [id number] [place] [address]- [address] Sep, [facility] [place] [facility] [address] [id number], [place] [address] Sep, [facility] [place] [facility] [address] [id number], [place] [address]- [address] Aug, [facility] [place] [facility] [address] [id number], [place] [address]- [address] Aug, [facility] [place] [facility] [address] [id number] [place] [address]- 6[address] Aug, [facility] [place] [facility] [address] [facility] [id number] [place] [address]- 4[address] Aug, [facility] [place] [facility] [address] [facility] [id number] [place] [address]- 8316 Jul, [facility] [place] [facility] [address] [id number] [place] [address]- 6290 Jul, [facility] [place] [facility] [address] [id number] [place] [address]- 9888 Jun, [facility] [place] [facility] [address] [id number] [place] [address]- 9821 Jun, [facility] [place] [facility] [address] [id number] [place] [address]- [address] May, [facility] [place] [facility] [address] [id number] [place] [address]- 4357 May, [facility] [place] [facility] [address] [id number] [place] [address]- 5248 May, [facility] [place] [facility] [address] [facility] [id number] [place] [address]- 5115 May, [facility] [place] [facility] [address] [id number] [place] [address]- 1033 Jan, [facility] [place] [facility] [address] [id number] [place] [address]- 4004 Jan, [facility] [place] [facility] [address] [id number] [place] [address]- 0498 Nov, [facility] [place] [facility] [address] [facility] [id number] [place] [address]- 5332 Nov, [facility] [place] [facility] [address] [id number] [place] [address]- 1222 Nov, [facility] [place] [facility] [address] [id number] [place] [address]- 7540 Nov, [facility] [place] [facility] [address] [id number] [place] [address]- 4282 Nov, [facility] [place] [facility] [address] [id number] [place] [address]- 4652 Nov, [facility] [place] [facility] [address] [facility] [id number] [place] [address]- 9246 Nov, [facility] [place] [facility] [address] [id number] [place] [address]- 3366 Nov, [facility] [place] [facility] [address] [id number] [place] [address]- 4128 Nov, [facility] [place] [facility] [address] [id number] [place] [address]- 1042 Nov, [facility] [place] [facility] [address] [id number] [place] [address]- 8768 Oct, [facility] [place] [facility] [address] [id number] [place] [address]- 1085 Oct, [facility] [place] [facility] [address] [id number] [place] [address]- 5829 Oct, [facility] [address] [id number] [place] [address]- 4219 Oct, [facility] [place] [facility] [address] [id number] [place] [address]- 5995 Sep, [facility] [place] [facility] [address] [id number] [place] [address]- 0326 Sep, [facility] [place] [facility] [address] [facility] [id number] [place] [address]- 0845 Aug, [facility] [place] [facility] [address] [id number] [place] [address]- 4903 Aug, [facility] [place] [facility] [address] [id number], [place] [address]- 4067 Aug, [facility] [place] [facility] [address] [id number] [place] [address]- 2823 Aug, [facility] [place] [facility] [address] [id number] [place] [address]- 5390 Aug, [facility] [place] [facility] [address] [facility] [id number], [place] [address]- [address] Aug, [facility] [place] [facility] [address] [id number] [place] [address] 2541 Aug, [facility] [place] [facility] [address] [id number] [place] [address]- 0227 Aug, [facility] [place] [facility] [address] [id number] [place] [address] 2546 Jul, [facility] [place] [facility] [address] [id number] [place] [address]- 5555 Jul, [facility] [place] [facility] [address] [id number] [place] [address]- 9503 Jul, [facility] [place] [facility] [address] [id number] [place] [address]- 4241 Jul, [facility] [place] [facility] [address] [id number] [place] [address]- 1320 Jul, [facility] [place] [facility] [address] [id number] [place] [address]- 1215 Jun, [facility] [place] [facility] [address] [id number] [place] [address]- 0115 May, [facility] [place] [facility] [address] [id number] [place] [address]- 8636 Apr, [facility] [place] [facility] [address] [id number] [place] [address]- 2186 February, [facility] [place] [facility] [address] [id number] [place] [address]- 2546 Jan, [facility] [place] [facility] [address] [id number] [place] [address]- 2543 Jan, [facility] [place] [facility] [address] [id number] [place] [address]- 2546 Dec, [facility] [place] [facility] [address] [id number] [place] [address]- 2546 Dec, [facility] [place] [facility] [address] [id number] [place] [address]- 2541 Dec, [facility] [address] [facility] [id number] [place] [address]- [address] Nov, [facility] [address] [facility] [id number], [place] [address]- [address]66 Nov, [facility] [address] [facility] [id number], [place] [address]- [address] Nov, [facility] [address] [facility] [id number], [place] [address]- [address]196 Nov, IMMUNIZATIONS No Known Immunizations SOCIAL HISTORY Never Assessed REASON FOR VISIT sample PLAN OF CARE VITAL SIGNS MEDICATIONS Medication Instructions Dosage Frequency Start Date End Date Duration Status Bevespi Aerosphere 9-4.8 MCG/ACT Inhalation Twice a day 2 puffs 12h May Active RESULTS No Results PROCEDURES No Known procedures INSTRUCTIONS MEDICATIONS ADMINISTERED No Known Medications MEDICAL (GENERAL) HISTORY Type Description Date Medical History GERD Medical History hypertension Medical History 1999 mild stroke syndrome- CT head 02/2015 showed chronic ischemic changes Medical History chronic neck and back pain Medical History [place] x's 2 1996 and 2011 Medical History [...] 02/2015 Surgical History coronary angiography Dr T[facility]- normal EF, LV function,-minimal RCA blockage <20% 1996 [facility], mild nonspecific bulbar duodenitis 1996 [facility] Heart cath with [facility] 2013 Surgical History Colonoscopy- tubular adenoma, hyperplastic polyp- repeat Colonoscopy 12/2016 Hospitalization History heart attack 1996 Hospitalization History slurred speech, fever, left arm pain Sharifa Shah February 2015 Hospitalization History Pancreatitis 12/2015
--- OUTSIDE RECORDS SUMMARY | 2018-02-19 06:52 | XMS REPORT ---
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 Name Role Phone TIFFANIE CAMPOS Unavailable PROBLEMS Type Condition ICD9-CM Code JEJ50-JZ Code Onset Dates Condition Status SNOMED Code Problem Fatty liver K76.0 Active 915302100 Problem Abdominal bloating R14.0 Active 018254115 Problem Diverticulosis of intestine without bleeding, unspecified intestinal tract location K57.90 Active 58334493 Problem Chronic obstructive pulmonary disease, unspecified COPD type J44.9 Active 96243015 Problem Bilateral carotid artery disease I77.9 Active 743245920 Problem COPD (chronic obstructive pulmonary disease) with chronic bronchitis J44.9 Active 055330617 Problem Gastroesophageal reflux disease without esophagitis K21.9 Active 328315098 Problem Claudication of both lower extremities I73.9 Active 431476211 Problem PAD (peripheral artery disease) I73.9 Active 776903600 Problem Tobacco abuse Z72.0 Active 97111785 Problem Benign essential hypertension I10 Active 0580159 Problem Hyperlipemia E78.5 Active 91096113 Problem Chronic pain G89.29 Active 03543470 Problem Chronic bronchitis J42 Active 58469956 Problem CAD (coronary artery disease) I25.10 Active 36307973 ALLERGIES No Information ENCOUNTERS Encounter Location Date Diagnosis [facility] [address] [id number], [place] [id number] Jan, [facility] [address] [id number][place] [address] Dec, [facility] [address] [id number][place] [address] Dec, [facility] [address] [id number], [place] [address] Dec, COPD (chronic obstructive pulmonary disease) with chronic bronchitis J44.9 [facility] [place] [facility] [address] [facility] [id number] [place] [address] Dec, [facility] [address] [facility] [id number] [place] [address] Dec, [facility] [address] [id number][place] [address] Nov, [facility] [address] [id number][place] [address] Nov, Benign essential hypertension I10 and COPD (chronic obstructive pulmonary disease) with chronic bronchitis J44.9 [facility] [address] [id number], [place] [id number] Nov, Hyperlipemia E78.5 ; Benign essential hypertension I10 ; COPD ( chronic obstructive pulmonary disease) with chronic bronchitis J44.9 ; Encounter for immunization Z23 ; Gastroesophageal reflux disease without esophagitis K21.9 and Chronic pain G89.29 [facility] [address] [id number], [place] [id number] Oct, COPD (chronic obstructive pulmonary disease) with chronic bronchitis J44.9 and Chronic obstructive pulmonary disease, unspecified COPD type J44.9 [facility] [address] [id number][place] [address] Oct, COPD (chronic obstructive pulmonary disease) with chronic bronchitis J44.9 and Chronic obstructive pulmonary disease, unspecified COPD type J44.9 [facility] [address] [id number][place] [address] Oct, COPD (chronic obstructive pulmonary disease) with chronic bronchitis J44.9 and Chronic obstructive pulmonary disease, unspecified COPD type J44.9 [facility] [employer] [place] [address] AVE [id number], [place] [id number] Oct, Benign essential hypertension I10 and Neck pain M54.2 [facility] [employer] [place] [address] AVE [id number], [place] [address] 15 Dec, 2017 PAD (peripheral artery disease) I73.9 ; Claudication of both lower extremities I73.9 ; Bilateral carotid artery disease I77.9 ; Benign essential hypertension I10 ; Hyperlipemia E78.5 and Dyspnea on exertion R06.09 [facility] [address] [id number], [place] [address] Aug, Benign essential hypertension I10 ; Gastroesophageal reflux disease without esophagitis K21.9 and Cervical radiculopathy M54.12 [facility] [address] [id number], [place] [address] Aug, Gastroesophageal reflux disease without esophagitis K21.9 [facility] [address] [id number], [place] [address] Aug, COPD (chronic obstructive pulmonary disease) with chronic bronchitis J44.9 [facility] [address] [id number], [place] [address] Jul, [employer] [address] [id number], [place] [address] Jul, Benign essential hypertension I10 [facility] [address] [id number], [place] [address] Jul, [facility] [address] [id number], [place] [address] Jul, COPD (chronic obstructive pulmonary disease) with chronic bronchitis J44.9 [facility] [address] [id number], [place] [address] Jul, Neck pain M54.2 [facility]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 [address] [id number], [place] [address] 22 Jun, 2017 Claudication of both lower extremities I73.9 ; PAD (peripheral artery disease) I73.9 ; Bilateral carotid artery disease I77.9 ; CAD (coronary artery disease) I25.10 ; Tobacco abuse Z72.0 ; Benign essential hypertension I10 ; Hyperlipemia E78.5 and Non-rheumatic mitral valve stenosis I34.2 [facility] [address] [id number], [place] [address] Jun, Chronic obstructive pulmonary disease, unspecified COPD type J44.9 [facility] [address] [id number] [place] [address] May, [facility] [address] [id number] [place] [address] May, Chronic obstructive pulmonary disease, unspecified COPD type J44.9 [facility] [address] [id number], [place] [address]48[address] May, Neck pain M54.2 ; Chronic obstructive pulmonary disease, unspecified COPD type J44.9 and Cervical radiculopathy M54.12 [facility] [address] [id number], [place] [address] May, [facility] [address] [id number], [place] [address] Apr, [facility] [address] [id number], [place] [address] Apr, Gastroesophageal reflux disease without esophagitis K21.9 [facility] [address] [id number], [place] [address] Apr, COPD (chronic obstructive pulmonary disease) with chronic bronchitis J44.9 [facility] [address] [id number], [place] [address] Apr, [facility] [address] [id number], [place] [address] Apr, [facility] [address] [id number], [place] [address] Apr, COPD (chronic obstructive pulmonary disease) with chronic bronchitis J44.9 ; Benign essential hypertension I10 ; Tobacco abuse counseling Z71.6 and Hyperlipemia E78.[address] [facility] [address] [id number], [place] [address] February, COPD (chronic obstructive pulmonary disease) with chronic bronchitis J44.9 [facility] [address] [id number], [place] [address] Jan, [facility] [address] [id number], [place] [address]35481600 Jan, COPD (chronic obstructive pulmonary disease) with chronic bronchitis J44.[address] [facility] [address] [id number], [place] [address] Oct, COPD (chronic obstructive pulmonary disease) with chronic bronchitis J44.9 [facility] [address] [id number], [place] 107[address] Oct, Winter itch L29.8 [facility] [address] [id number], [place] [address]88984[address] Oct, COPD (chronic obstructive pulmonary disease) with chronic bronchitis J44.9 ; Benign essential hypertension I10 ; Tobacco abuse Z72.0 and Gastroesophageal reflux disease without esophagitis K21.9 [facility] [address] [id number], [place] [address] Sep, Benign essential hypertension I10 [employer] [address] [id number], [place] [address] Aug, [facility] [address] [id number], [place] [address]757[address] Jul, [facility] [address] [id number], [place] 1567[address] Apr, [facility] [address] [id number], [place] [address] Apr, Abdominal bloating R14.0 ; Fatty liver K76.0 ; Diverticulosis of intestine without bleeding, unspecified intestinal tract location K57.90 ; Chronic obstructive pulmonary disease, unspecified COPD type J44.9 and Benign essential hypertension I10 [employer] [address] [id number], [place] [address] Apr, Mild early onset dysthymic disorder, in partial remission, with melancholic features, 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 [facility] [address] [id number], [place] 484658212 Mar, Abdominal muscle strain, initial encounter S39.011A [facility] [address] [id number], [place] [address]2704524 Jan, Pancreatitis K85.9 ; Abdominal bloating R14.0 ; Chronic bronchitis J42 and Chronic pain G89.29 [facility] [address] [id number], [place] [address] Nov, [facility] [address] [id number], [place] [address]1087491 Nov, [facility] [address] [id number], [place] 842196735 Nov, Chronic bronchitis J42 ; Tobacco abuse Z72.0 and Tobacco abuse counseling Z71.6 [facility] [address] [id number], [place] 345216540 Oct, [facility] [address] [id number], [place] 457212269 Oct, Chronic bronchitis J42 ; Tobacco abuse Z72.0 and Benign essential hypertension I10 [facility] [address] [id number], [place] [address]12540752 Oct, Chronic bronchitis J42 ; Tobacco abuse Z72.0 ; Tobacco abuse counseling Z71.6 ; Benign essential hypertension I10 and Hyperlipemia E78.5 [facility] [place] [facility] [address] [id number] [address] Sep, [facility] [address] [id number], [place] [address]88706713 Jul, [facility] [place] [facility] [address]005[address]100[place] [address] Jul, Essential (primary) hypertension I10 [facility] [place] [facility] [address] [id number] [address] Jul, [facility] [address] [id number], [place] [id number] Jul, [facility] [address] [id number], [place] 740281447 Jun, Benign essential hypertension 401.1 ; Generalized edema 782.3 ; Chronic pain 338.29 and Hyperlipemia 272.4 [facility] [employer] [facility] [id number], [place] [address]6630565 May, Upper respiratory infection 465.9 and Cough 786.2 [facility] Alberto [facility] [id number], [place] [id number] Mar, Upper respiratory infection 465.9 ; Tobacco abuse 305.1 and Cough 786.2 [facility] BERNARD [employer] [facility] [id number], [place] [id number] February, [facility] [employer] [facility] [id number], [place] 709730148 February, Status post bilateral carotid endarterectomy V45.89 ; CAD ( coronary artery disease) 414.00 ; Benign essential hypertension 401.1 ; Hyperlipemia 272.4 ; Tobacco abuse 305.1 ; Tobacco abuse counseling V65.42 and Chronic bronchitis 491.9 [facility] [place] [facility] [id number] [place] [address]- 8454 Jan, [facility] [place] [facility] [id number] [place] [address] [id number]- 5691 Jan, [facility] [place] [facility] [id number] [place] [address] 811632- 7362 Dec, [facility] [place] [facility] [id number] [place] [address] 565172- 0383 Dec, [facility] [place] [facility] [id number] [place] [address] 61580445- 6317 Nov, [facility] [place] [facility] [id number] [place] [address] 415727- 4234 Nov, [facility] [place] [facility] [id number] [place] [address] 368027- 5939 Nov, [facility] [place] [facility] [address] [id number] [address]- [address] 17 Nov, 2014 [facility] [place] [facility] [address] [id number] [place] [address]- [address] 17 Nov, 2014 [facility] [place] [facility] [address] [id number] [place] [address]- [address]16 10 Nov, 2014 [facility] [place] [facility] [address] [id number] [place] [address]- 3646 Nov, 2014 [facility] [place] [facility] [address] [id number] [place] [address]- 0633 Nov, [facility] [place] [facility] [address] [id number] [place] [address]- 5276 Nov, [facility] [place] [facility] [address] [id number] [place] [address]- 8580 Oct, [facility] [place] [facility] [address] [id number] [place] [address]- 0490 Oct, [facility] [place] [facility] [address] [id number] [place] [address]- 4037 Oct, [facility] [place] [facility] [address] [id number] [place] [address]- 0576 Oct, [facility] [place] [facility] [address] [id number] [place] [address]- 1778 Oct, [facility] [place] [facility] [address] [id number] [place] [address]- 3458 Oct, [facility] [place] [facility] [address] [id number] [place] [address]- 1552 Oct, [facility] [place] [facility] [address] [id number] [place] [address]- 5868 Oct, [facility] [place] [facility] [address] [id number] [place] [address]- 7328 Oct, [facility] [place] [facility] [address] [id number] [place] [address]- 5714 Oct, [facility] [place] [address] [id number] [place] [id number] Oct, [facility] [place] [facility] [address] [id number] [place] [address]- 1851 Oct, [facility] [place] [facility] [address] [facility] [id number] [place]- [address] Sep, [facility] [place] [facility] [address] [id number] [place] [address]- 4530 Sep, [facility] [place] [facility] [address] [id number] [place] [address]- 0020 Aug, [facility] [place] [facility] [address] [id number] [place] [address]- 7244 Aug, [facility] [place] [facility] [address] [id number] [place] [address]- 8071 Aug, [facility] [place] [facility] [address] [id number] [place] [address]- 0776 Aug, [facility] [place] [facility] [address] [id number] [place] [address]- 8359 Jul, [facility] [place] [facility] [address] [facility] [id number] [place] [address]- 1130 Jul, [facility] [place] [facility] [address] [facility] [id number] [address]- [address]21 Jun, [facility] [place] [facility] [address] [id number], [place] [address]- 8276 Jun, [facility] [place] [facility] [address] [id number] [place] [address]- 4104 May, [facility] [place] [facility] [address] [id number] [place] [address]- 3818 May, [facility] [place] [facility] [address] [facility] [id number], [place] [address]- 1468 May, [facility] [place] [facility] [address] [id number], [place] [address]- 9909 May, [facility] [place] [facility] [address] [id number] [place] [address]- 0013 Jan, [facility] [place] [facility] [address] [id number] [place] [address]- 5054 Jan, [facility] [place] [facility] [address] [id number] [place] [address]- 6086 Nov, [facility] [place] [facility] [address] [id number] [place] [address]- 2282 Nov, [facility] [place] [facility] [address] [id number] [place] [address]- 7793 Nov, [facility] [place] [facility] [address] [id number] [place] [address]- 7799 Nov, [facility] [place] [facility] [address] [id number] [place] [address]- 6478 Nov, [facility] [place] [facility] [address] [id number] [place] [address]- 0861 Nov, [facility] [place] [facility] [address] [id number] [place] [address]- 8595 Nov, [facility] [place] [facility] [address] [id number] [place] [address]- 3360 Nov, [facility] [place] [facility] [address] [id number] [place] [address]- 5624 Nov, [facility] [place] [facility] [address] [id number] [place] [address]- 4174 Nov, [facility] [place] [facility] [address] [id number] [place] [address]- 0636 Oct, [facility] [place] [facility] [address] [id number] [place] [address]- 3529 Oct, [facility] [place] [facility] [address] [id number] [place] [address]- 3685 Oct, [facility] [place] [facility] [address] [id number] [place] [address]- 2063 Oct, [facility] [place] [facility] [address] [id number] [place] [address]- 4264 Sep, [facility] [place] [facility] [address] [id number] [place] [address]- 3101 Sep, [facility] [place] [facility] [address] [id number] [place] [address]- 1494 Aug, [facility] [place] [facility] [address] [id number] [place] [address]- 0357 Aug, [facility] [place] [facility] [address] [id number] [place] [address]- 9499 Aug, [facility] [place] [facility] [address] [id number] [place] [address]- 4473 Aug, [facility] [place] [facility] [address] [id number] [place] [address]- 7594 Aug, [facility] [place] [facility] [address] [id number] [place] [address]- 1602 Aug, [facility] [place] [facility] [address] [id number], [place] [address]- 6534 Aug, [facility] [place] [facility] [address] [id number], [place] [address]- 0104 Aug, [facility] [place] [facility] [address] [id number], [place] [address]- 6724 Jul, [facility] [place] [facility] [address] [id number] [place] [address]- 8187 Jul, [facility] [place] [facility] [address] [id number] [place] [address]- 6063 Jul, [facility] [place] [facility] [address] [id number] [place] [address]- 4936 Jul, [facility] [place] [facility] [id number] [address]- 2776 Jul, [facility] [place] [facility] [address]100[place], [place] [address]- 6[address] Jun, [facility] [place] [facility] [id number] [place] [address] 19194- 5646 May, [facility] [place] [facility] [id number] [place] [address] 13467 2546 Apr, [facility] [place] [facility] [id number] [place] [address] 98502- 6205 February, [facility] [place] [facility] [id number] [place] [address] 84020- 0288 Jan, [facility] [place] [facility] [id number] [place] [address] 29279- 0906 Jan, [facility] [place] [facility] [id number] [place] [address] 54804- 3059 Dec, [facility] [place] [facility] [id number] [place] [address] 65196- 6915 Dec, [facility] [place] [facility] [id number] [place] [address] 04687- 7649 Dec, [facility] [place] [facility] [address]100[place], [place] [address]- 4029 Nov, [facility] [place] [facility] [id number] [place] [address] 26507- 4035 Nov, [facility] [place] [facility] [address]100[place] [address]- 2825 Nov, [facility] [place] [facility] [address]100[place], [place] [address]- 9896 Nov, IMMUNIZATIONS No Known Immunizations SOCIAL HISTORY Never Assessed REASON FOR VISIT PALS PLAN OF CARE VITAL SIGNS MEDICATIONS Medication Instructions Dosage Frequency Start Date End Date Duration Status Bevespi Aerosphere 9-4.8 MCG/ACT Inhalation Twice a day (PALS) 2 puffs Apr, Active RESULTS No Results PROCEDURES No Known procedures INSTRUCTIONS MEDICATIONS ADMINISTERED No Known Medications MEDICAL (GENERAL) HISTORY Type Description Date Medical History GERD Medical History hypertension Medical History 1999 mild stroke syndrome- CT head 02/2015 showed chronic ischemic changes Medical History chronic neck and back pain Medical History CT x's 2 1996 and 2011 Medical History [...] 02/2015 [facility], LV function,-minimal RCA blockage <20% 1996 [facility], mild nonspecific bulbar duodenitis 1996 Surgical History carotid endarterectomy, right- [facility] 01/2015 Surgical History Heart cath with [facility] 2013 Surgical History Colonoscopy- tubular adenoma, hyperplastic polyp- repeat Colonoscopy 12/2016 Hospitalization History heart attack 1996 Hospitalization History slurred speech, fever, left arm pain [facility] February 2015 Hospitalization History Pancreatitis 12/2015
--- OUTSIDE RECORDS SUMMARY | 2018-02-19 06:52 | XMS REPORT ---
Author Author TIFFANIE CAMPOS [facility] Address [address] [place] [address] Care Team Providers Care Freight Caller Name Role Phone TIFFANIE CAMPOS Unavailable PROBLEMS Type Condition ICD9-CM Code WLK11-BG Code Onset Dates Condition Status SNOMED Code Problem Fatty liver K76.0 Active 615272030 Problem Abdominal bloating R14.0 Active 552936929 Problem Diverticulosis of intestine without bleeding, unspecified intestinal tract location K57.90 Active 81053635 Problem Chronic obstructive pulmonary disease, unspecified COPD type J44.9 Active 28821981 Problem Bilateral carotid artery disease I77.9 Active 395002037 Problem COPD (chronic obstructive pulmonary disease) with chronic bronchitis J44.9 Active 443449473 Problem Gastroesophageal reflux disease without esophagitis K21.9 Active 612976343 Problem Claudication of both lower extremities I73.9 Active 583399437 Problem PAD (peripheral artery disease) I73.9 Active 217654855 Problem Tobacco abuse Z72.0 Active 85306995 Problem Benign essential hypertension I10 Active 6730927 Problem Hyperlipemia E78.5 Active 07188692 Problem Chronic pain G89.29 Active 82565900 Problem Chronic bronchitis J42 Active 78404797 Problem CAD (coronary artery disease) I25.10 Active 51087816 ALLERGIES No Information ENCOUNTERS Encounter Location Date Diagnosis [facility] [address] [id number], [place] [id number] Jan, [facility] [address] [id number], [place] [address] Jan, RUQ pain R10.11 ; Gastroesophageal reflux disease without esophagitis K21.9 and Change in stool R19.5 [facility] [address] [id number], [place] [address] Jan, [facility] [address] [id number] [place] [id number] Jan, Neck pain M54.2 ; Benign essential hypertension I10 ; COPD ( chronic obstructive pulmonary disease) with chronic bronchitis J44.9 and Chronic obstructive pulmonary disease, unspecified COPD type J44.9 [facility] [address] [id number][place] [id number] Jan, Chronic obstructive pulmonary disease, unspecified COPD type J44.9 [facility] [address] [id number][place] [address] Dec, [facility] [address] [id number], [place] [id number] Dec, [facility] [address] [id number], [place] [address] Dec, COPD (chronic obstructive pulmonary disease) with chronic bronchitis J44.9 [facility] [id number] [address] Dec, [facility] [address] [facility] [id number], [place] [address] Dec, [facility] [address] [id number], [place] [id number] Nov, [facility] [address] [id number], [place] 159478290 Nov, Benign essential hypertension I10 and COPD (chronic obstructive pulmonary disease) with chronic bronchitis J44.9 [facility] [address] [id number], [place] [address] Nov, Hyperlipemia E78.5 ; Benign essential hypertension I10 ; COPD ( chronic obstructive pulmonary disease) with chronic bronchitis J44.9 ; Encounter for immunization Z23 ; Gastroesophageal reflux disease without esophagitis K21.9 and Chronic pain G89.29 [facility] [address] [id number], [place] [address]85 Oct, COPD (chronic obstructive pulmonary disease) with chronic bronchitis J44.9 and Chronic obstructive pulmonary disease, unspecified COPD type J44.9 [facility] [address] [id number] [place] [address] Oct, COPD (chronic obstructive pulmonary disease) with chronic bronchitis J44.9 and Chronic obstructive pulmonary disease, unspecified COPD type J44.9 [facility] [address] [id number] [place] [id number] Oct, COPD (chronic obstructive pulmonary disease) with chronic bronchitis J44.9 and Chronic obstructive pulmonary disease, unspecified COPD type J44.9 [facility] [address] [id number] [place] [address] Oct, Benign essential hypertension I10 and Neck pain M54.2 [facility] [address] [id number], [place] [address]95688889 Sep, PAD (peripheral artery disease) I73.9 ; Claudication of both lower extremities I73.9 ; Bilateral carotid artery disease I77.9 ; Benign essential hypertension I10 ; Hyperlipemia E78.5 and Dyspnea on exertion R06.09 [facility] [address] [id number], [place] [address] Aug, Benign essential hypertension I10 ; Gastroesophageal reflux disease without esophagitis K21.9 and Cervical radiculopathy M54.12 [facility] [address] [id number], [place] [address]200[address] Aug, Gastroesophageal reflux disease without esophagitis K21.9 [facility] [address] [id number], [place] [id number] Aug, COPD (chronic obstructive pulmonary disease) with chronic bronchitis J44.9 [facility] [address] [id number] [place] [address] Jul, [facility] [address] [id number], [place] 4530[address]344 Jul, Benign essential hypertension I10 [facility] [address] [id number], [place] [id number] Jul, [facility] [address] [id number] [place] [address] Jul, COPD (chronic obstructive pulmonary disease) with chronic bronchitis J44.9 [facility] [address] [id number] [place] [address] Jul, Neck pain M54.2 [facility] [address] [id number] [place] [address] Jun, Claudication of both lower extremities I73.9 ; PAD (peripheral artery disease) I73.9 ; Bilateral carotid artery disease I77.9 ; CAD (coronary artery disease) I25.10 ; Tobacco abuse Z72.0 ; Benign essential hypertension I10 ; Hyperlipemia E78.5 and Non-rheumatic mitral valve stenosis I34.2 [facility] [address] [id number], [place] 574395172 Jun, Chronic obstructive pulmonary disease, unspecified COPD type J44.9 [facility] [address] [address] [id number], [place] [address]134216[address] May, [facility] [address] [address] [id number], [place] 4326[address] May, Chronic obstructive pulmonary disease, unspecified COPD type J44.9 [facility] [address] [address] [id number], [place] 41388549[address] May, Neck pain M54.2 ; Chronic obstructive pulmonary disease, unspecified COPD type J44.9 and Cervical radiculopathy M54.12 [facility] [address] [address] [id number], [place] 425073[address] May, [facility] [address] [id number] [place] [address] Apr, [facility] [address] [address] [id number], [place] [address]42[address]25[address] Apr, Gastroesophageal reflux disease without esophagitis K21.9 [facility] [address] [address] [id number], [place] [address]87957894 Apr, COPD (chronic obstructive pulmonary disease) with chronic bronchitis J44.[address] [facility] [address] [id number] [place] 224[address] Apr, [facility] [address] [id number] [place] [address] Apr, [facility] [address] [id number] [place] 21516[address] Apr, COPD (chronic obstructive pulmonary disease) with chronic bronchitis J44.9 ; Benign essential hypertension I10 ; Tobacco abuse counseling Z71.6 and Hyperlipemia E78.[address] [facility] [address] [id number] [place] 8398[address] February, COPD (chronic obstructive pulmonary disease) with chronic bronchitis J44.[address] [facility] [address] [id number], [place] 597766483 Jan, [facility] [address] [id number], [place] 540189041 Jan, COPD (chronic obstructive pulmonary disease) with chronic bronchitis J44.[address] [facility] [address] [id number], [place] 790767137 Oct, COPD (chronic obstructive pulmonary disease) with chronic bronchitis J44.[address] [facility] [address] [id number], [place] 488438880 Oct, Winter itch L29.[address] [facility] [address] [id number], [place] 825391716 Oct, COPD (chronic obstructive pulmonary disease) with chronic bronchitis J44.9 ; Benign essential hypertension I10 ; Tobacco abuse Z72.0 and Gastroesophageal reflux disease without esophagitis K21.[address] [facility] [address] [id number] [place] 445154591 Sep, Benign essential hypertension I10 [facility] [address] [id number], [place] 936536690 Aug, [facility] [address] [id number], [place] 633808094 Jul, [facility] [address] [id number], [place] [address] Apr, [facility] [address] [id number], [place] 9099928[address] Apr, Abdominal bloating R14.0 ; Fatty liver K76.0 ; Diverticulosis of intestine without bleeding, unspecified intestinal tract location K57.90 ; Chronic obstructive pulmonary disease, unspecified COPD type J44.9 and Benign essential hypertension I10 [facility] [address] [id number], [place] 252050482 Apr, Mild early onset dysthymic disorder, in partial remission, with melancholic features, 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 [facility] [address] [facility] [id number], [place] 747349998 Mar, Abdominal muscle strain, initial encounter S39.011A [facility] [address] [place] [address] AVE [id number], [place] 806754732 Jan, Pancreatitis K85.9 ; Abdominal bloating R14.0 ; Chronic bronchitis J42 and Chronic pain G89.29 [facility] [address] [id number], [place] 112490482 Nov, [facility] [address] [id number], [place] 578208274 Nov, [facility] [address] [id number], [place] 404768712 Nov, Chronic bronchitis J42 ; Tobacco abuse Z72.0 and Tobacco abuse counseling Z71.6 [facility] [address] [id number], [place] 619314140 Oct, [facility] [address] [id number], [place] 545958048 Oct, Chronic bronchitis J42 ; Tobacco abuse Z72.0 and Benign essential hypertension I10 [facility] [address] [id number], [place] 884840045 Oct, Chronic bronchitis J42 ; Tobacco abuse Z72.0 ; Tobacco abuse counseling Z71.6 ; Benign essential hypertension I10 and Hyperlipemia E78.5 [facility] [address] [id number], [place] [address] Sep, [facility] [address] [id number], [place] 786316800 Jul, [facility] [address]100[place], [place] [address] Jul, Essential (primary) hypertension I10 [facility] [address] [id number], [place] [address] Jul, [facility] [address] [id number], [place] 511023509 Jul, [facility] [address] [id number], [place] 840932473 Jun, Benign essential hypertension 401.1 ; Generalized edema 782.3 ; Chronic pain 338.29 and Hyperlipemia 272.4 [facility] [address] [id number], [place] 812579976 May, Upper respiratory infection 465.9 and Cough 786.2 [facility] [address] [id number], [place] 323869046 Mar, Upper respiratory infection 465.9 ; Tobacco abuse 305.1 and Cough 786.2 [facility] [address] [id number], [place] 420044544 February, [facility] [address] [id number], [place] 015866545 February, Status post bilateral carotid endarterectomy V45.89 ; CAD ( coronary artery disease) 414.00 ; Benign essential hypertension 401.1 ; Hyperlipemia 272.4 ; Tobacco abuse 305.1 ; Tobacco abuse counseling V65.42 and Chronic bronchitis 491.9 [facility] [address] [facility] [id number], [place] [address] Jan, [facility] [place] [facility] [address] [id number] [place] [address]- [address] Jan, [facility] [place] [facility] [address] [id number] [place] [address]- 8616 Dec, [facility] [place] [facility] [address] [id number] [place] [address]- 1361 Dec, [facility] [place] [facility] [address] [id number] [place] [address]- 8381 Nov, [facility] [place] [facility] [address] [id number] [place] [address]- 7130 Nov, [facility] [place] [facility] [address] [id number] [place] [address]- [address]46 Nov, 2014 [facility] [place] [facility] [address] [id number] [place] [address]- 7628 Nov, [facility] [place] [facility] [address] [id number] [place] [address]- 1442 Nov, 2014 [facility] [place] [facility] [address] [id number] [place] [address]- 5068 Nov, [facility] [place] [facility] [address] [id number] [place] [address]- 3065 Nov, [facility] [place] [facility] [address] [id number] [place] [address]- 4293 Nov, [facility] [place] [facility] [address] [id number] [place] [address] 2545 Nov, [facility] [place] [facility] [address] [id number] [place] [address]- 4795 Oct, [facility] [place] [facility] [address] [id number] [place] [address]- 8809 Oct, [facility] [place] [facility] [address] [id number] [place] [address]- 7810 Oct, [facility] [place] [facility] [address] [id number], [place] [address]- 8646 Oct, [facility] [place] [facility] [address] [id number] [place] [address]- 8580 Oct, [facility] [place] [facility] [address] [facility] [id number] [place] [address]- 0336 Oct, [facility] [place] [facility] [address] [facility] [id number] [place] [address]- 1196 Oct, [facility] [place] [facility] [address] [facility] [id number] [place] [address]- 0035 Oct, [facility] [place] [facility] [address] [id number] [place] [address]- [address] Oct, [facility] [place] [facility] [address] [id number] [place] [address]- [address] Oct, [facility] [id number] [id number] Oct, [facility] [place] [facility] [address] [id number], [place] [address]- [address] Oct, [facility] [place] [facility] [address] [id number] [place] [address]- 79[address] Sep, [facility] [place] [facility] [address] [id number], [place] [address]- 5946 Sep, [facility] [place] [facility] [address] [id number], [place] [address]- 5958 Aug, [facility] [place] [facility] [address] [id number], [place] [address]- 9842 Aug, [facility] [place] [facility] [address] [id number] [place] [address]- 0726 Aug, [facility] [place] [facility] [address] [facility] [id number] [place] [address]- 5216 Aug, [facility] [place] [facility] [address] [facility] [id number] [place] [address]- 8346 Jul, [facility] [place] [facility] [address] [id number] [place] [address]- 8159 Jul, [facility] [place] [facility] [address] [id number] [place] [address]- 7607 Jun, [facility] [place] [facility] [address] [id number] [place] [address]- 4159 Jun, [facility] [place] [facility] [address] [id number] [place] [address]- 1272 May, [facility] [place] [facility] [address] [id number] [place] [address]- 7403 May, [facility] [place] [facility] [address] [id number] [place] [address]- 0784 May, [facility] [place] [facility] [address] [facility] [id number] [place] [address]- 9663 May, [facility] [place] [facility] [address] [id number] [place] [address]- 5041 Jan, [facility] [place] [facility] [address] [id number] [place] [address]- 7827 Jan, [facility] [place] [facility] [address] [id number] [place] [address]- 2150 Nov, [facility] [place] [facility] [address] [facility] [id number] [place] [address]- 9524 Nov, [facility] [place] [facility] [address] [id number] [place] [address]- 4791 Nov, [facility] [place] [facility] [address] [id number] [place] [address]- 4313 Nov, [facility] [place] [facility] [address] [id number] [place] [address]- 3597 Nov, [facility] [place] [facility] [address] [id number] [place] [address]- 8880 Nov, [facility] [place] [facility] [address] [facility] [id number] [place] [address]- 4196 Nov, [facility] [address] [id number] [place] [address]- 6231 Nov, [facility] [place] [facility] [address] [id number] [place] [address]- 2573 Nov, [facility] [place] [facility] [address] [id number] [place] [address]- 4412 Nov, [facility] [place] [facility] [address] [id number] [place] [address]- 7994 Oct, [facility] [address] [id number] [place] [address]- 4301 Oct, [facility] [place] [facility] [address] [id number] [place] [address]- 6010 Oct, [facility] [address] [id number] [place] [address]- 9858 Oct, [facility] [place] [facility] [address] [id number] [place] [address]- 0436 Sep, [facility] [address] [id number] [place] [address]- 5193 Sep, [facility] [place] [facility] [address] [facility] [id number] [place] [address]- 1652 Aug, [facility] [place] [facility] [address] [id number] [place] [address]- 1788 Aug, [facility] [place] [facility] [address] [id number], [place] [address]- 6853 Aug, [facility] [place] [facility] [address] [id number] [place] [address]- 9506 Aug, [facility] [place] [facility] [address] [id number] [place] [address]- 2649 Aug, [facility] [place] [facility] [address] [facility] [id number], [place] [address]- 5078 Aug, [facility] [place] [facility] [address] [id number] [place] [address] 2544 Aug, [facility] [place] [facility] [address] [id number] [place] [address]- 2872 Aug, [facility] [place] [facility] [address] [id number] [place] [address] 2546 Jul, [facility] [place] [facility] [address] [id number] [place] [address]- 4210 Jul, [facility] [place] [facility] [address] [id number] [place] [address]- 9585 Jul, [facility] [place] [facility] [address] [id number] [place] [address]- 5697 Jul, [facility] [place] [facility] [address] [id number] [place] [address]- 9301 Jul, [facility] [place] [facility] [address] [id number] [place] [address]- 1875 Jun, [facility] [place] [facility] [address] [id number] [place] [address]- 0879 May, [facility] [place] [facility] [address] [id number] [place] [address]- 3936 Apr, [facility] [place] [facility] [address] [id number] [place] [address]- 3316 February, [facility] [place] [facility] [address] [id number] [place] [address]- 2546 Jan, [facility] [place] [facility] [address] [id number] [place] [address]- 2541 Jan, [facility] [place] [facility] [address] [id number] [place] [address]- 2546 Dec, [facility] [place] [facility] [address] [id number] [place] [address]- 2546 Dec, [facility] [place] [facility] [address] [id number] [place] [address]- 7171 Dec, [facility] [address] [facility] [id number] [place] [address]- 3413 Nov, [facility] [address] [facility] [id number], [place] [address]- 9116 Nov, [facility] [address] [facility] [id number], [place] [address]- 8624 Nov, [facility] [address] [facility] [id number], [place] [address]- 6619 Nov, IMMUNIZATIONS No Known Immunizations SOCIAL HISTORY Never Assessed REASON FOR VISIT stiolto PLAN OF CARE VITAL SIGNS MEDICATIONS Unknown Medications RESULTS No Results PROCEDURES No Known procedures INSTRUCTIONS MEDICATIONS ADMINISTERED No Known Medications MEDICAL (GENERAL) HISTORY Type Description Date Medical History GERD Medical History hypertension Medical History 1999 mild stroke syndrome- CT head 02/2015 showed chronic ischemic changes Medical History chronic neck and back pain Medical History AL x's 2 1996 and 2011 Medical History [...] 02/2015 Surgical History coronary angiography Dr Traylor [facility]- normal EF, LV function,-minimal RCA blockage <20% 1996 [facility], mild nonspecific bulbar duodenitis 1996 Surgical History carotid endarterectomy, right- [facility] 01/2015 Surgical History Heart cath with [facility] 2013 Surgical History Colonoscopy- tubular adenoma, hyperplastic polyp- repeat Colonoscopy 12/2016 Hospitalization History heart attack 1996 Hospitalization History slurred speech, fever, left arm pain [facility] [place] February 2015 Hospitalization History Pancreatitis 12/2015
--- OUTSIDE RECORDS SUMMARY | 2018-02-19 06:53 | XMS REPORT ---
Author Author KIEL MEZA [facility] Address [address] [place] [address] Care Team Providers Care Eyeglass Fitter Name Role Phone KIEL MEZA Unavailable PROBLEMS Type Condition ICD9-CM Code OOF69-IV Code Onset Dates Condition Status SNOMED Code Problem Gastroesophageal reflux disease without esophagitis K21.9 Active 893802013 Problem Bilateral carotid artery disease I77.9 Active 684182296 Problem Claudication of both lower extremities I73.9 Active 506040317 Problem Mixed hyperlipidemia E78.2 Active 879695974 Problem Peripheral arterial disease I73.9 Active 975057664 Problem Chronic obstructive pulmonary disease, unspecified COPD type J44.9 Active 76045111 Problem PAD (peripheral artery disease) I73.9 Active 477319153 Problem Claudication I73.9 Active 67890698 Problem Non-rheumatic mitral regurgitation I34.0 Active 332609144 Problem Tobacco abuse Z72.0 Active 94059862 Problem Benign essential hypertension I10 Active 4441006 Problem Hyperlipemia E78.5 Active 57011978 Problem Chronic bronchitis J42 Active 94049965 Problem Diverticulosis of intestine without bleeding, unspecified intestinal tract location K57.90 Active 22069322 Problem Abdominal bloating R14.0 Active 822037415 Problem Chronic pain G89.29 Active 42983704 Problem Fatty liver K76.0 Active 085788207 Problem CAD (coronary artery disease) I25.10 Active 70584313 Problem COPD (chronic obstructive pulmonary disease) with chronic bronchitis J44.9 Active 231283032 ALLERGIES No Known Allergies ENCOUNTERS Encounter Location Date Diagnosis [address] [id number] [place] [id number] Jan, Peripheral arterial disease I73.9 ; Benign essential hypertension I10 ; Bilateral carotid artery disease I77.9 ; Claudication of both lower extremities I73.9 ; Mixed hyperlipidemia E78.2 ; Tobacco use Z72.0 and Non- rheumatic mitral regurgitation I34.0 [facility] [address] [id number] [place] [id number] Jan, RUQ pain R10.11 ; Gastroesophageal reflux disease without esophagitis K21.9 and Change in stool R19.[address] [facility] [address] [id number] [place] [id number] Jan, [facility] [address] [id number] [place] [address] Jan, Neck pain M54.2 ; Benign essential hypertension I10 ; COPD ( chronic obstructive pulmonary disease) with chronic bronchitis J44.9 and Chronic obstructive pulmonary disease, unspecified COPD type J44.9 [facility] [address] [id number] [place] [address] Jan, Chronic obstructive pulmonary disease, unspecified COPD type J44.9 [facility] [address] [id number] [place] [address] Dec, [facility] [address] [id number] [place] [address] Dec, [facility] [address] [id number] [place] [id number] Dec, COPD (chronic obstructive pulmonary disease) with chronic bronchitis J44.9 [facility] [address] [facility] [id number] [address] Dec, [facility] [address] [facility] [id number][place] [address] Dec, [facility] [address] [id number] [place] [address] Nov, [facility] [address] [id number] [place] [address] Nov, Benign essential hypertension I10 and COPD (chronic obstructive pulmonary disease) with chronic bronchitis J44.9 [facility] [address] [id number] [place] [address] Nov, Hyperlipemia E78.5 ; Benign essential hypertension I10 ; COPD ( chronic obstructive pulmonary disease) with chronic bronchitis J44.9 ; Encounter for immunization Z23 ; Gastroesophageal reflux disease without esophagitis K21.9 and Chronic pain G89.[address] [facility] [address] [employer] [place] [address] AVE [id number] [place] [address] Oct, COPD (chronic obstructive pulmonary disease) with chronic bronchitis J44.9 and Chronic obstructive pulmonary disease, unspecified COPD type J44.[address] [facility] [address] [id number] [place] [address] Oct, COPD (chronic obstructive pulmonary disease) with chronic bronchitis J44.9 and Chronic obstructive pulmonary disease, unspecified COPD type J44.[address] [facility] [address] [id number] [place] [id number] Oct, COPD (chronic obstructive pulmonary disease) with chronic bronchitis J44.9 and Chronic obstructive pulmonary disease, unspecified COPD type J44.[address] [facility] [address] [employer] [place] [address] AVE [id number] [place] [id number] Oct, Benign essential hypertension I10 and Neck pain M54.[address] [facility] [address] [employer] [place] [address] AVE [id number] [place] [id number] Sep, PAD (peripheral artery disease) I73.9 ; Claudication of both lower extremities I73.9 ; Bilateral carotid artery disease I77.9 ; Benign essential hypertension I10 ; Hyperlipemia E78.5 and Dyspnea on exertion R06.[address] [facility] [address] [employer] [place] [address] AVE [id number] [place] [id number] Aug, Benign essential hypertension I10 ; Gastroesophageal reflux disease without esophagitis K21.9 and Cervical radiculopathy M54.12 [facility] [address] [id number] [place] [address] Aug, Gastroesophageal reflux disease without esophagitis K21.[address] [facility] [address] [employer] [place] [address] AVE [id number] [place] [address] Aug, COPD (chronic obstructive pulmonary disease) with chronic bronchitis J44.[address] [facility] [address] [id number] [place] [id number] Jul, [facility] [address] [id number] [place] [address] Jul, Benign essential hypertension I10 [facility] [address] [id number] [place] [id number] Jul, [facility] [address] [id number] [place] [address] Jul, COPD (chronic obstructive pulmonary disease) with chronic bronchitis J44.9 [facility] [address] [id number] [place] [id number] Jul, Neck pain M54.2 [facility] [address] [id number] [place] [address] Jun, Claudication of both lower extremities I73.9 ; PAD (peripheral artery disease) I73.9 ; Bilateral carotid artery disease I77.9 ; CAD (coronary artery disease) I25.10 ; Tobacco abuse Z72.0 ; Benign essential hypertension I10 ; Hyperlipemia E78.5 and Non-rheumatic mitral valve stenosis I34.2 [facility] [address] [id number] [place] [address] Jun, Chronic obstructive pulmonary disease, unspecified COPD type J44.9 [facility] [address] [id number] [place] [address] May, [facility] [address] [id number] [place] [address] May, Chronic obstructive pulmonary disease, unspecified COPD type J44.9 [facility] [address] [id number] [place] [address] May, Neck pain M54.2 ; Chronic obstructive pulmonary disease, unspecified COPD type J44.9 and Cervical radiculopathy M54.12 [facility] [address] [id number] [place] [address] May, [facility] [address] [id number] [place] [id number] Apr, [facility] [address] [id number] [place] [address] Apr, Gastroesophageal reflux disease without esophagitis K21.[address] [facility] [address] [id number] [place] [id number] Apr, COPD (chronic obstructive pulmonary disease) with chronic bronchitis J44.[address] [facility] [address] [id number] [place] [address] Apr, [facility] [address] [id number] [place] [address] Apr, [facility] [address] [id number] [place] [address] Apr, COPD (chronic obstructive pulmonary disease) with chronic bronchitis J44.9 ; Benign essential hypertension I10 ; Tobacco abuse counseling Z71.6 and Hyperlipemia E78.[address] [facility] [address] [id number] [place] [address] February, COPD (chronic obstructive pulmonary disease) with chronic bronchitis J44.[address] [facility] [address] [id number] [place] [address] Jan, [facility] [address] [id number] [place] [id number] Jan, COPD (chronic obstructive pulmonary disease) with chronic bronchitis J44.[address] [facility] [address] [id number] [place] [address] Oct, COPD (chronic obstructive pulmonary disease) with chronic bronchitis J44.[address] [facility] [address] [id number] [place] [address] Oct, Winter itch L29.[address] [facility] [address] [id number] [place] [address] Oct, COPD (chronic obstructive pulmonary disease) with chronic bronchitis J44.9 ; Benign essential hypertension I10 ; Tobacco abuse Z72.0 and Gastroesophageal reflux disease without esophagitis K21.9 [facility] [address] [id number] [place] [address] Sep, Benign essential hypertension I10 [facility] [address] [id number] [place] [id number] Aug, [facility] [address] [place] [address] AVE [id number] [place] [address] Jul, [facility] [address] [id number] [place] [id number] Apr, [facility] [address]W[facility]NER[address] [id number] [place] [id number] Apr, Abdominal bloating R14.0 ; Fatty liver K76.0 ; Diverticulosis of intestine without bleeding, unspecified intestinal tract location K57.90 ; Chronic obstructive pulmonary disease, unspecified COPD type J44.9 and Benign essential hypertension I10 [facility] [address] [place] [address] AVE [id number] [place] [id number] Apr, Mild early onset dysthymic disorder, in partial remission, with melancholic features, 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 [facility] [address] [place] [address] AVE [id number] [place] [address]152[address] Mar, Abdominal muscle strain, initial encounter S39.011A [facility] [id number] [place] [address] Jan, Pancreatitis K85.9 ; Abdominal bloating R14.0 ; Chronic bronchitis J42 and Chronic pain G89.29 [facility] [address] [id number] [place] [address] Nov, [facility] [address] [id number] [place] [address] Nov, [facility] [address] [id number] [place] 127407[address] Nov, Chronic bronchitis J42 ; Tobacco abuse Z72.0 and Tobacco abuse counseling Z71.6 [facility] [address] [id number] [place] 436[address] Oct, [facility] [address] [id number] [place] [address] Oct, Chronic bronchitis J42 ; Tobacco abuse Z72.0 and Benign essential hypertension I10 [facility] [address] [id number] [place] 61455[address]66 Oct, Chronic bronchitis J42 ; Tobacco abuse Z72.0 ; Tobacco abuse counseling Z71.6 ; Benign essential hypertension I10 and Hyperlipemia E78.5 [facility] [address] [address] Sep, [facility] [address] [id number] [place] [address]20[address]68 Jul, [facility] [address]100[place], [place] [address] Jul, Essential (primary) hypertension I10 [facility] [address] [address]- [address] Jul, [facility] [address] [id number] [place] [id number] Jul, [facility] [address] [id number] [place] [id number] Jun, Benign essential hypertension 401.1 ; Generalized edema 782.3 ; Chronic pain 338.29 and Hyperlipemia 272.4 [facility] [address] [id number] [place] [address]45[address] May, Upper respiratory infection 465.9 and Cough 786.2 [facility] [address] [id number] [place] [address]49[address]16 Mar, Upper respiratory infection 465.9 ; Tobacco abuse 305.1 and Cough 786.[address] [facility] [address] [id number] [place] [id number] February, [facility] [address] [id number] [place] [address] February, Status post bilateral carotid endarterectomy V45.89 ; CAD ( coronary artery disease) 414.00 ; Benign essential hypertension 401.1 ; Hyperlipemia 272.4 ; Tobacco abuse 305.1 ; Tobacco abuse counseling V65.42 and Chronic bronchitis 491.9 [facility] [address], [place] [address] Jan, [facility] [address] [place] [id number] [place] [address]- [address] Jan, [facility] [id number] [place] [address]- 7928 Dec, [facility] [id number] [place] [address] 769638- 9251 Dec, [facility] [id number] [place] [address]- 2637 Nov, [facility] [id number] [place] [address]- 7917 Nov, [facility] [address], [place] [address]- [address] Nov, [facility] [address] [id number], [place] [address]- 1553 Nov, [facility] [address], [place] [address]- [address] Nov, [facility] [address] [id number], [place] [address]- [address] Nov, [facility] [address], [place] [address]- 4737 Nov, [facility] [address], [place] [address]- [address]76 Nov, [facility] [address], [place] [address]- 1496 Nov, [facility] [address] [id number] [place] [address]- [address] Oct, [facility] [address] [id number] [place] [address]- [address] Oct, [facility] [place] [facility] [address] [id number] [place] [address]- 8[address] Oct, [facility] [place] [facility] [address] [id number] [place] [address]- 4[address] Oct, [facility] [place] [facility] [address] [id number] [place] [address]- 2369 Oct, [facility] [place] [facility] [address] [id number] [place] [address]- 7071 Oct, [facility] [address] [id number] [place] [address]- 6152 Oct, [facility] [address] [id number] [place] [address]- 8395 Oct, [facility] [address] [id number] [place] [address]- 0237 Oct, [facility] [address] [id number] [place] [address]- 6236 Oct, [facility] [address] [id number][place] [id number] Oct, [facility] [place] [facility] [address] [id number] [place] [address]- 0770 Oct, [facility] [place] [facility] [address] [id number] [place] [address]- 8616 Sep, [facility] [place] [facility] [address] [id number] [place] [address]- 0236 Sep, [facility] [place] [facility] [address] [id number] [place] [address]- 1696 Aug, [facility] [place] [facility] [address] [id number] [place]- [address] Aug, [facility] [place] [facility] [address] [id number] [place] [address]- 4700 Aug, [facility] [place] [facility] [address] [id number] [place] [address]- 6361 Aug, [facility] [place] [facility] [address] [id number] [place] [address]- 8838 Jul, [facility] [place] [facility] [address] [id number] [place] [address]- 1177 Jul, [facility] [place] [facility] [address] [id number] [place] [address]- 9312 Jun, [facility] [place] [facility] [address] [id number] [place] [address]- 2[address] Jun, [facility] [place] [facility] [address] [id number] [place] [address]- 2015 May, [facility] [place] [facility] [address] [id number] [place] [address]- 2055 May, [facility] [place] [facility] [address] [id number] [place] [address]- 4931 May, [facility] [place] [facility] [address] [id number] [place] [address]- 8680 May, [facility] [place] [facility] [address] [id number] [place] [address]- 8291 Jan, [facility] [place] [facility] [address] [id number] [place] [address]- 3852 Jan, [facility] [place] [facility] [address] [id number] [place] [address]- 9359 Nov, [facility] [place] [facility] [address] [id number] [place] [address]- 4560 Nov, [facility] [place] [facility] [address] [id number] [place] [address]- 6257 Nov, [facility] [place] [facility] [address] [id number] [place] [address]- 3437 11 Nov, 2013 [facility] [place] [facility] [address] [id number] [place] [address]- 8996 Nov, [facility] [place] [facility] [address] [id number] [place]- 0926 Nov, [facility] [place] [facility] [address] [id number] [place] [address]- 4266 Nov, [facility] [place] [facility] [address] [id number] [place] [address]- 6096 Nov, [facility] [place] [facility] [address] [id number] [place] [address]- 3286 Nov, [facility] [place] [facility] [address] [id number] [place] [address]- 3598 Nov, [facility] [place] [facility] [address] [id number] [place] [address]- 1798 Oct, [facility] [place] [facility] [address] [id number] [place] [address]- 1472 Oct, [facility] [place] [facility] [address] [id number] [place] [address]- 8620 Oct, [facility] [place] [facility] [address] [facility] [id number] [place] [address]- 1951 Oct, [facility] [place] [facility] [address] [id number] [place] [address]- 5238 Sep, [facility] [place] [facility] [address] [id number] [place] [address] 254 Sep, [facility] [place] [facility] [address] [id number] [place] [address]- 9733 Aug, [facility] [place] [facility] [address] [id number] [place] [address]- 1726 Aug, [facility] [place] [facility] [address] [id number] [place] [address]- 3454 Aug, [facility] [place] [facility] [address] [id number] [place] [address]- 7130 Aug, [facility] [place] [facility] [address] [id number] [place] [address]- 9636 Aug, [facility] [place] [facility] [address] [id number] [place] [address]- 5966 Aug, [facility] [place] [facility] [address] [id number] [place] [address]- 8919 Aug, [facility] [place] [facility] [address] [id number] [place]- [address] Aug, [facility] [place] [facility] [address] [id number] [place] [address]- 0995 Jul, [facility] [place] [facility] [address] [id number] [place] [address]- 7185 Jul, [facility] [place] [facility] [address] [id number], [place] [address]- 4912 Jul, [facility] [place] [facility] [address] [id number] [place] [address]- 2230 Jul, [facility] [place] [facility] [address] [id number], [place] [address]- 7039 Jul, [facility] [place] [facility] [address] [id number][place] [address]- 7537 Jun, [facility] [place] [facility] [address] [id number], [place] [address]- 9049 May, [facility] [place] [facility] [address] [id number] [place] [address]- 5315 Apr, [facility] [place] [facility] [address] [id number][place] [address]- 5368 February, [facility] [place] [facility] [address] [id number] [place] [address]- 4606 Jan, [facility] [place] [facility] [address] [id number], [place] [address]- 3340 Jan, [facility] [address], [place] [address]- [address]24 Dec, [facility] [address], [place] [address]- 1908 Dec, [facility] [address], [place] [address]- 5709 Dec, [facility] [address], [place] [address]- 3271 Nov, [facility] [address] [place] [address]- 5271 Nov, [facility] [address], [place] [address]- 9271 Nov, [facility] [address], [place] [address]- 5736 Nov, IMMUNIZATIONS No Known Immunizations SOCIAL HISTORY Never Assessed REASON FOR VISIT Cardiology consult PLAN OF CARE Activity Details Follow Up 2 Months Reason: VITAL SIGNS Height 62 in 2017-07-06 Weight 156 lbs 2017-07-06 Heart Rate 58 bpm 2017-07-06 Respiratory Rate 18 2017-07-06 Oximetry 96 % 2017-07-06 BMI 28.53 kg/m2 2017-07-06 Blood pressure systolic 144 mmHg 2017-07-06 Blood pressure diastolic 84 mmHg 2017-07-06 MEDICATIONS Medication Instructions Dosage Frequency Start Date End Date Duration Status Crestor 20 mg Orally Once a day 1 tablet 24h Apr, 90 days Active Protonix 40 MG Orally Once a day- stop omeprazole 1 tablets Oct, Active Aspirin 81 MG Orally Once a day 1 tablet 24h Active Metoprolol Tartrate 50 mg Orally Twice a day 1 tablet 12h Active Gabapentin 600 MG 1 tablet 3 times a day Orally Active Lisinopril 40 mg Orally Once a day 1 tablet Once a day Orally 24h Active Ventolin HFA 108 (90 Base) MCG/ACT Inhalation every 4 hrs 2 puffs as needed 4h Apr, Active Norvasc 5 mg Orally Once a day 1 tablet 24h Active Bevespi Aerosphere 9-4.8 MCG/ACT Inhalation Twice a day (PALS) 2 puffs Apr, Active Albuterol Sulfate (2.5 MG/3ML) 0.083% Inhalation Three times a day, PRN 3 ml Oct, Active [employer]evespi Aerosphere 9-4.8 MCG/ACT Inhalation Twice a day 2 puffs 12h May Active Flovent HFA 110 MCG/ACT Inhalation Twice a day (PALS) 2 puff Oct, Active RESULTS Name Result Date Reference Range Echo 2D Carotid Ultrasound PROCEDURES Procedure Date Ordered Result Body Site MEASURE BLOOD OXYGEN LEVEL Jul 06, 2017 INSTRUCTIONS MEDICATIONS ADMINISTERED No Known Medications MEDICAL (GENERAL) HISTORY Type Description Date Medical History GERD Medical History hypertension Medical History 1999 mild stroke syndrome- CT head 02/2015 showed chronic ischemic changes Medical History chronic neck and back pain Medical History MS x's 2 1996 and 2011 Medical History [...] 02/[facility],-minimal RCA blockage <20% 1996 Surgical History EGD-Dr.Makdisi BensonByrd-mild erosive esophagitis, mild nonspecific bulbar duodenitis 1996 Surgical History carotid endarterectomy, right- [facility] 01/2015 Surgical History Heart cath with [facility] 2013 Surgical History Colonoscopy- tubular adenoma, hyperplastic polyp- repeat Colonoscopy 12/2016 Hospitalization History heart attack 1996 Hospitalization History slurred speech, fever, left arm pain [facility] February 2015 Hospitalization History Pancreatitis 12/2015
--- OUTSIDE RECORDS SUMMARY | 2018-02-19 06:53 | XMS REPORT ---
Author Author [facility] Address [address] [place] [address] Care Team Providers Care Welfare Service Aide Name Role Phone TIFFANIE CAMPOS Unavailable PROBLEMS Type Condition ICD9-CM Code KLS59-HC Code Onset Dates Condition Status SNOMED Code Problem Fatty liver K76.0 Active 680102364 Problem Abdominal bloating R14.0 Active 257196600 Problem Diverticulosis of intestine without bleeding, unspecified intestinal tract location K57.90 Active 22638188 Problem Chronic obstructive pulmonary disease, unspecified COPD type J44.9 Active 81058653 Problem Bilateral carotid artery disease I77.9 Active 237559565 Problem COPD (chronic obstructive pulmonary disease) with chronic bronchitis J44.9 Active 931335044 Problem Gastroesophageal reflux disease without esophagitis K21.9 Active 124087676 Problem Claudication of both lower extremities I73.9 Active 168614502 Problem PAD (peripheral artery disease) I73.9 Active 368513577 Problem Tobacco abuse Z72.0 Active 92423142 Problem Benign essential hypertension I10 Active 1459433 Problem Hyperlipemia E78.5 Active 62486570 Problem Chronic pain G89.29 Active 70508058 Problem Chronic bronchitis J42 Active 98716888 Problem CAD (coronary artery disease) I25.10 Active 94869804 ALLERGIES No Information ENCOUNTERS Encounter Location Date Diagnosis [facility] [address] [id number][place] [id number] Jan, [facility] [address] [id number][place] [address] Jan, [facility] [address] [id number][place] [address] Dec, [facility] [address] [id number], [place] [address] Dec, [facility] [address] [id number][place] [id number] Dec, COPD (chronic obstructive pulmonary disease) with chronic bronchitis J44.9 [facility] [address] [facility] [id number] [place] [address] Dec, [facility] [address] [facility] [id number] [place] [address] Dec, [facility] [address] [id number], [place] [id number] Nov, [facility] [address] [id number][place] [address] Nov, Benign essential hypertension I10 and COPD (chronic obstructive pulmonary disease) with chronic bronchitis J44.[address] [facility] [address] [id number][place] [id number] Nov, Hyperlipemia E78.5 ; Benign essential hypertension I10 ; COPD ( chronic obstructive pulmonary disease) with chronic bronchitis J44.9 ; Encounter for immunization Z23 ; Gastroesophageal reflux disease without esophagitis K21.9 and Chronic pain G89.29 [facility] [address] [id number][place] [id number] Oct, COPD (chronic obstructive pulmonary disease) with chronic bronchitis J44.9 and Chronic obstructive pulmonary disease, unspecified COPD type J44.9 [facility] [address] [id number], [place] [address] Oct, COPD (chronic obstructive pulmonary disease) with chronic bronchitis J44.9 and Chronic obstructive pulmonary disease, unspecified COPD type J44.9 [facility] [address] [id number][place] [address] Oct, COPD (chronic obstructive pulmonary disease) with chronic bronchitis J44.9 and Chronic obstructive pulmonary disease, unspecified COPD type J44.9 [facility] [address] [id number][place] [address] Oct, Benign essential hypertension I10 and Neck pain M54.2 [facility] [address] [id number] [place] [id number] 15 Sep, 2017 PAD (peripheral artery disease) I73.9 ; Claudication of both lower extremities I73.9 ; Bilateral carotid artery disease I77.9 ; Benign essential hypertension I10 ; Hyperlipemia E78.5 and Dyspnea on exertion R06.09 [facility] [address] [id number][place] [id number] Aug, Benign essential hypertension I10 ; Gastroesophageal reflux disease without esophagitis K21.9 and Cervical radiculopathy M54.12 [facility] [address] [id number][place] [address] Aug, Gastroesophageal reflux disease without esophagitis K21.9 [facility] [address] [id number], [place] [id number] Aug, COPD (chronic obstructive pulmonary disease) with chronic bronchitis J44.9 [facility] [address] [id number], [place] [address] Jul, [facility] [id number][place] [address] Jul, Benign essential hypertension I10 [facility] [address] [id number], [place] [address] Jul, [facility] [address] [place] [address] AVE [id number], [place] [address] Jul, COPD (chronic obstructive pulmonary disease) with chronic bronchitis J44.9 [facility] [address] [id number][place] [address] Jul, Neck pain M54.2 [facility] [address] [id number], [place] [address] Jun, Claudication of both lower extremities I73.9 ; PAD (peripheral artery disease) I73.9 ; Bilateral carotid artery disease I77.9 ; CAD (coronary artery disease) I25.10 ; Tobacco abuse Z72.0 ; Benign essential hypertension I10 ; Hyperlipemia E78.5 and Non-rheumatic mitral valve stenosis I34.[address] [facility] [address] [id number] [place] [id number] Jun, Chronic obstructive pulmonary disease, unspecified COPD type J44.[address] [facility] [address] [id number] [place] [id number] May, [facility] [address] [id number] [place] [address] May, Chronic obstructive pulmonary disease, unspecified COPD type J44.[address] [facility] [address] [id number] [place] [address] May, Neck pain M54.2 ; Chronic obstructive pulmonary disease, unspecified COPD type J44.9 and Cervical radiculopathy M54.[address] [facility] [address] [id number] [place] [address] May, [facility] [address] [id number] [place] [id number] Apr, [facility] [address] [id number] [place] [id number] Apr, Gastroesophageal reflux disease without esophagitis K21.[address] [facility] [address] [id number] [place] [address] Apr, COPD (chronic obstructive pulmonary disease) with chronic bronchitis J44.9 [facility] [address] [id number] [place] [address] Apr, [facility] [address] [id number] [place] [id number] Apr, [facility] [address] [id number] [place] [address] Apr, COPD (chronic obstructive pulmonary disease) with chronic bronchitis J44.9 ; Benign essential hypertension I10 ; Tobacco abuse counseling Z71.6 and Hyperlipemia E78.[address] [facility] [address] [id number] [place] [address] February, COPD (chronic obstructive pulmonary disease) with chronic bronchitis J44.[address] [facility] [address] [id number] [place] [id number] Jan, [facility] [address] [id number] [place] [address] Jan, COPD (chronic obstructive pulmonary disease) with chronic bronchitis J44.9 [facility] [address] [id number] [place] [address] Oct, COPD (chronic obstructive pulmonary disease) with chronic bronchitis J44.[address] [facility] [address] [id number] [place] [address] Oct, Winter itch L29.[address] [facility] [address] [id number], [place] 413461206 Oct, COPD (chronic obstructive pulmonary disease) with chronic bronchitis J44.9 ; Benign essential hypertension I10 ; Tobacco abuse Z72.0 and Gastroesophageal reflux disease without esophagitis K21.9 [facility] [address] [id number], [place] 400[address]381 Sep, Benign essential hypertension I10 [facility] [address] [id number], [place] 398[address] Aug, [facility] [address] [id number], [place] [address]127[address]843 Jul, [facility] [address] [id number], [place] [address] Apr, [facility] [address] [id number] [place] [address] Apr, Abdominal bloating R14.0 ; Fatty liver K76.0 ; Diverticulosis of intestine without bleeding, unspecified intestinal tract location K57.90 ; Chronic obstructive pulmonary disease, unspecified COPD type J44.9 and Benign essential hypertension I10 [facility] [address] [id number], [place] [address]98[address] Apr, Mild early onset dysthymic disorder, in partial remission, with melancholic features, 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 [facility] [address] [id number], [place] 847957166 Mar, Abdominal muscle strain, initial encounter S39.011A [facility] [address] [id number], [place] 10818[address]38 Jan, Pancreatitis K85.9 ; Abdominal bloating R14.0 ; Chronic bronchitis J42 and Chronic pain G89.29 [facility] [address] [id number], [place] [address]33 Nov, [facility] [address] [id number], [place] 934142697 Nov, [facility] [address] [id number], [place] 126051846 Nov, Chronic bronchitis J42 ; Tobacco abuse Z72.0 and Tobacco abuse counseling Z71.6 [facility] [address] [id number], [place] [address]762429[address] Oct, [facility] [address] [id number], [place] 440433581 Oct, Chronic bronchitis J42 ; Tobacco abuse Z72.0 and Benign essential hypertension I10 [facility] [address] [facility] [address] [id number], [place] [address]66242893 Oct, Chronic bronchitis J42 ; Tobacco abuse Z72.0 ; Tobacco abuse counseling Z71.6 ; Benign essential hypertension I10 and Hyperlipemia E78.5 [facility] [address] [id number] [address]- [address] Sep, [facility] [address] [id number], [place] 632321311 Jul, [facility] [address] [place] [id number]- 6184 Jul, Essential (primary) hypertension I10 [facility] [address] [place] [id number]- 6920 Jul, [facility] [address] [id number], [place] 6313[address]502 Jul, [facility] [address] [id number], [place] 949262860 Jun, Benign essential hypertension 401.1 ; Generalized edema 782.3 ; Chronic pain 338.29 and Hyperlipemia 272.4 [facility] [address] [id number], [place] 330387451 May, Upper respiratory infection 465.9 and Cough 786.2 [facility] [address] [facility] [address] [id number], [place] 350601862 Mar, Upper respiratory infection 465.9 ; Tobacco abuse 305.1 and Cough 786.2 [facility] [address] [id number], [place] [address]23580778 February, [facility] [address] [facility] [address] [id number], [place] [address]77014040 February, Status post bilateral carotid endarterectomy V45.89 ; CAD ( coronary artery disease) 414.00 ; Benign essential hypertension 401.1 ; Hyperlipemia 272.4 ; Tobacco abuse 305.1 ; Tobacco abuse counseling V65.42 and Chronic bronchitis 491.9 [facility] [address] [place] [address] [id number]- 3743 Jan, [facility] [address]65[address] [address] Jan, [facility] [id number] [place] [address]- 6284 Dec, [facility] [id number] [place] [address]- 1441 Dec, [facility] [id number] [place] [address]- 7234 Nov, [facility] [address]65[address], [place] [address] Nov, [facility] [address] [place] [address] 19 Nov, 2014 [facility] [place] [facility] [address] [id number] [place] [address]- [address]66 Nov, 2014 [facility] [place] [facility] [address] [id number] [place] [address] 2546 17 Nov, 2014 [facility] [place] [facility] [address] [id number] [place] [address]- [address]86 Nov, 2014 [facility] [place] [facility] [address] [id number] [place] [address]- 2542 Nov, 2014 [facility] [place] [facility] [address] [id number] [place] [address]- 9156 Nov, 2014 [facility] [place] [facility] [address] [id number] [place] [address]- 8893 Nov, 2014 [facility] [place] [facility] [address] [id number] [place] [address]- [address]2 Oct, [facility] [place] [facility] [address] [id number] [place] [address]- 4226 Oct, [facility] [place] [facility] [address] [id number] [place] [address]- 3524 Oct, [facility] [place] [facility] [address] [facility] [id number] [place] [address]- 8349 Oct, [facility] [place] [facility] [address] [id number] [place] [address]- 1089 Oct, [facility] [place] [facility] [address] [id number] [place] [address]- 2547 Oct, [facility] [place] [facility] [address] [id number] [place] [address]- 2025 Oct, [facility] [place] [facility] [address] [id number] [place] [address] 2546 Oct, [facility] [place] [facility] [address] [id number] [place] [address] 2545 Oct, [facility] [place] [facility] [address] [id number] [place] [address]- 9312 Oct, [facility] [place] [address] [id number] [place] [id number] Oct, [facility] [place] [facility] [address] [id number] [place] [address]- 4296 Oct, [facility] [place] [facility] [address] [id number] [place] [address]- 9543 Sep, [facility] [place] [facility] [address] [id number] [place] [address]- 1171 Sep, [facility] [place] [facility] [address] [id number] [place] [address]- 5014 Aug, [facility] [place] [facility] [address] [id number] [place] [address]- 8986 Aug, [facility] [place] [facility] [address] [id number] [place] [address]- 1837 Aug, [facility] [place] [facility] [address] [id number] [place] [address]- 9330 Aug, [facility] [place] [facility] [address] [id number] [place] [address]- 2237 Jul, [facility] [place] [facility] [address] [id number] [place] [address]- 3675 Jul, [facility] [place] [facility] [address] [id number], [place] [address]- 9590 Jun, [facility] [place] [facility] [address] [id number] [place] [address]- 1355 Jun, [facility] [place] [facility] [address] [id number] [place] [address]- 5377 May, [facility] [place] [facility] [address] [id number], [place] [address]- 5609 May, [facility] [place] [facility] [address] [id number], [place] [address]- 6917 May, [facility] [place] [facility] [address] [id number] [place] [address]- 0198 May, [facility] [place] [facility] [address] [id number] [place] [address]- 4263 Jan, [facility] [place] [facility] [address] [id number] [place] [address]- 4237 Jan, [facility] [place] [facility] [address] [id number] [place] [address]- 7401 Nov, [facility] [place] [facility] [address] [id number] [place] [address]- 9758 Nov, [facility] [place] [facility] [address] [id number] [place] [address]- 1962 Nov, [facility] [place] [facility] [address] [facility] [id number] [place] [address]- 6901 Nov, [facility] [place] [facility] [address] [id number] [place] [address]- 5543 Nov, [facility] [place] [facility] [address] [id number] [place] [address]- 1123 Nov, [facility] [place] [facility] [address] [facility] [id number] [place] [address]- 4845 Nov, [facility] [place] [facility] [address] [id number] [place] [address]- 5197 Nov, [facility] [place] [facility] [address] [facility] [id number] [place] [address]- 8829 Nov, [facility] [place] [facility] [address] [id number] [place] [address]- 5573 Nov, [facility] [place] [facility] [address] [id number] [place] [address]- 5999 Oct, [facility] [place] [facility] [address] [id number] [place] [address]- 2345 Oct, [facility] [address] [id number] [place] [address]- 0288 Oct, [facility] [place] [facility] [address] [id number] [place] [address]- 8650 Oct, [facility] [place] [facility] [address] [id number] [place] [address]- 6420 Sep, [facility] [place] [facility] [address] [id number] [place] [address]- 3344 Sep, [facility] [place] [facility] [address] [id number] [place] [address]- 8973 Aug, [facility] [place] [facility] [address] [id number] [place] [address]- 3125 Aug, [facility] [place] [facility] [address] [id number] [place] [address]- 1752 Aug, [facility] [place] [facility] [address] [id number], [place] [address]- 4473 Aug, [facility] [place] [facility] [address] [id number], [place] [address]- 3128 Aug, [facility] [place] [facility] [address] [id number], [place] [address]- 9186 Aug, [facility] [place] [facility] [address] [id number], [place] [address]- 7058 Aug, [facility] [place] [facility] [address] [id number], [place] [address]- 2535 Aug, [facility] [place] [facility] [address] [id number], [place] [address]- 0011 Jul, [facility] [place] [facility] [address] [id number], [place] [address]- 6108 Jul, [facility] [place] [facility] [address] [id number], [place] [address]- 7165 Jul, [facility] [place] [facility] [address] [id number], [place] [address]- 7326 Jul, [facility] [address]65[address], [place] [address]- [address] Jul, [facility] [address], [place] [address]- 8966 Jun, [facility] [address], [place] [address]- 1005 May, [facility] [address], [place] [address]- 7112 Apr, [facility] [address] [place] [address]23[address]- 4532 February, [facility] [address]65[address], [place] [address]- 4302 Jan, [facility] [address]65[address], [place] [address]- 2550 Jan, [facility] [address], [place] [address]- 9902 Dec, [facility] [address], [place] [address]- 0995 Dec, [facility] [address], [place] [address]- 7386 Dec, [facility] [address], [place] [address]- 0422 Nov, [facility] [address] [id number], [place] [address]- 0736 Nov, [facility] [address], [place] [address]- 9132 Nov, [facility] [address] [id number], [place] [address]- 2480 Nov, IMMUNIZATIONS No Known Immunizations SOCIAL HISTORY Never Assessed REASON FOR VISIT Repository PLAN OF CARE VITAL SIGNS MEDICATIONS Medication Instructions Dosage Frequency Start Date End Date Duration Status Protonix 40 MG Orally Once a day- stop omeprazole 1 tablets Oct, Active RESULTS No Results PROCEDURES No Known procedures INSTRUCTIONS MEDICATIONS ADMINISTERED No Known Medications MEDICAL (GENERAL) HISTORY Type Description Date Medical History GERD Medical History hypertension Medical History 1999 mild stroke syndrome- CT head 02/2015 showed chronic ischemic changes Medical History chronic neck and back pain Medical History PA x's 2 1996 and 2011 Medical History [...] 02/2015 [facility], [facility],-minimal RCA blockage <20% 1996 [facility], mild nonspecific bulbar duodenitis 1996 Surgical History carotid endarterectomy, right- [facility] 01/2015 Surgical History Heart cath with [facility] 2013 Surgical History Colonoscopy- tubular adenoma, hyperplastic polyp- repeat Colonoscopy 12/2016 Hospitalization History heart attack 1996 Hospitalization History slurred speech, fever, left arm pain [facility] February 2015 Hospitalization History Pancreatitis 12/2015
--- OUTSIDE RECORDS SUMMARY | 2018-02-19 06:55 | XMS REPORT | Continuity of Care Document ---
Author Author [facility] Organization [facility] Address Unknown Phone Unavailable Allergies Active Description Code Type Severity Reaction Onset Reported/Identified Relationship to Patient Clinical Status Yes No Known Drug Allergies [id number] Drug Allergy Unknown N/A 09/01/2013 Medications There is no data. Problems Date Dx Coded Attending Type Code Diagnosis Diagnosed By 12/03/2012 305.1 TOBACCO ABUSE 12/03/2012 401.9 UNSPECIFIED ESSENTIAL HYPERTENSION 12/03/2012 305.1 NICOTINE DEPENDENCE 12/03/2012 401.9 ACP Staging Stage 2 Hypertension: Greater Than Kt=997/100 12/03/2012 305.1 NICOTINE DEPENDENCE 12/03/2012 401.9 ACP Staging Stage 2 Hypertension: Greater Than Jw=827/100 12/03/2012 305.1 NICOTINE DEPENDENCE 12/03/2012 401.9 ACP Staging Stage 2 Hypertension: Greater Than Zb=932/100 12/03/2012 305.1 NICOTINE DEPENDENCE 12/03/2012 401.9 ACP Staging Stage 2 Hypertension: Greater Than Hi=974/100 12/03/2012 HEAVEN SOLOMON DDS 305.1 NICOTINE DEPENDENCE 12/03/2012 HEAVEN SOLOMON DDS 401.9 ACP Staging Stage 2 Hypertension: Greater Than Mk=893/100 12/03/2012 MIRELLA ORTIZ MD 305.1 NICOTINE DEPENDENCE 12/03/2012 MIRELLA ORTIZ MD 401.9 ACP Staging Stage 2 Hypertension: Greater Than Ae=874/100 12/03/2012 305.1 NICOTINE DEPENDENCE 12/03/2012 401.9 ACP Staging Stage 2 Hypertension: Greater Than Ks=185/100 12/03/2012 305.1 NICOTINE DEPENDENCE 12/03/2012 401.9 ACP Staging Stage 2 Hypertension: Greater Than Nm=630/100 12/03/2012 MIRELLA ORTIZ MD 305.1 NICOTINE DEPENDENCE 12/03/2012 MIRELLA ORTIZ MD 401.9 ACP Staging Stage 2 Hypertension: Greater Than Nt=498/100 12/03/2012 HERNANDEZ DO, AINSLEY K 305.1 NICOTINE DEPENDENCE 12/03/2012 HERNANDEZ DO, AINSLEY K 401.9 ACP Staging Stage 2 Hypertension: Greater Than Qj=284/100 12/03/2012 HERNANDEZ DO, AINSLEY K 305.1 NICOTINE DEPENDENCE 12/03/2012 HERNANDEZ DO, AINSLEY K 401.9 ACP Staging Stage 2 Hypertension: Greater Than Qr=387/100 12/03/2012 HERNANDEZ DO, AINSLEY K 305.1 NICOTINE DEPENDENCE 12/03/2012 HERNANDEZ DO, AINSLEY K 401.9 ACP Staging Stage 2 Hypertension: Greater Than Ko=501/100 12/03/2012 TIFFANIE CAMPOS APRN 305.1 NICOTINE DEPENDENCE 12/03/2012 TIFFANIE CAMPOS APRN 401.9 ACP Staging Stage 2 Hypertension: Greater Than Bi=766/100 12/03/2012 HERNANDEZ DO, AINSLEY K 305.1 NICOTINE DEPENDENCE 12/03/2012 HERNANDEZ DO, AINSLEY K 401.9 ACP Staging Stage 2 Hypertension: Greater Than Jb=314/100 12/03/2012 HERNANDEZ DO, AINSLEY K 305.1 NICOTINE DEPENDENCE 12/03/2012 HERNANDEZ DO, AINSLEY K 401.9 ACP Staging Stage 2 Hypertension: Greater Than Oo=306/100 12/03/2012 TIFFANIE CAMPOS APRN 305.1 NICOTINE DEPENDENCE 12/03/2012 TIFFANIE CAMPOS APRN 401.9 ACP Staging Stage 2 Hypertension: Greater Than Px=707/100 12/03/2012 COBY ELLISON MD 305.1 NICOTINE DEPENDENCE 12/03/2012 COBY ELLISON MD 401.9 ACP Staging Stage 2 Hypertension: Greater Than Vx=983/100 12/03/2012 HERNANDEZ DO AINSLEY K 305.1 NICOTINE DEPENDENCE 12/03/2012 HERNANDEZ DO, AINSLEY K 401.9 ACP Staging Stage 2 Hypertension: Greater Than By=126/100 12/03/2012 ALLA VALDIVIA APRN 305.1 NICOTINE DEPENDENCE 12/03/2012 ALLA VALDIVIA APRN 401.9 ACP Staging Stage 2 Hypertension: Greater Than Cx=785/100 12/03/2012 TIFFANIE CAMPOS APRN 305.1 NICOTINE DEPENDENCE 12/03/2012 TIFFANIE CAMPOS APRN 401.9 ACP Staging Stage 2 Hypertension: Greater Than Jv=457/100 12/03/2012 TIFFANIE CAMPOS APRN 305.1 NICOTINE DEPENDENCE 12/03/2012 TIFFANIE CAMPOS APRN 401.9 ACP Staging Stage 2 Hypertension: Greater Than Vg=018/100 12/03/2012 TIFFANIE CAMPOS APRN 305.1 NICOTINE DEPENDENCE 12/03/2012 TIFFANIE CAMPOS APRN 401.9 ACP Staging Stage 2 Hypertension: Greater Than Wq=908/100 12/06/2012 414.00 CORONARY ARTERY DISEASE 12/06/2012 785.2 Murmurs 12/06/2012 414.00 CORONARY ARTERY DISEASE 12/06/2012 785.2 Murmurs 12/06/2012 414.00 CORONARY ARTERY DISEASE 12/06/2012 785.2 Murmurs 12/06/2012 414.00 CORONARY ARTERY DISEASE 12/06/2012 785.2 Murmurs 12/06/2012 JUANITO DDS, HEAVEN F 414.00 CORONARY ARTERY DISEASE 12/06/2012 JUANITO DDS, HEAVEN F 785.2 Murmurs 12/06/2012 MIRELLA ORTIZ MD 414.00 CORONARY ARTERY DISEASE 12/06/2012 MIRELLA ORTIZ MD 785.2 Murmurs 12/06/2012 414.00 CORONARY ARTERY DISEASE 12/06/2012 785.2 Murmurs 12/06/2012 414.00 CORONARY ARTERY DISEASE 12/06/2012 785.2 Murmurs 12/06/2012 MIRELLA ORTIZ MD 414.00 CORONARY ARTERY DISEASE 12/06/2012 MIRELLA ORTIZ MD 785.2 Murmurs 12/06/2012 HERNANDEZ DO, AINSLEY K 414.00 CORONARY ARTERY DISEASE 12/06/2012 HERNANDEZ DO, AINSLEY K 785.2 Murmurs 12/06/2012 HERNANDEZ DO, AINSLEY K 414.00 CORONARY ARTERY DISEASE 12/06/2012 HERNANDEZ DO, AINSLEY K 785.2 Murmurs 12/06/2012 HERNANDEZ DO, AINSLEY K 414.00 CORONARY ARTERY DISEASE 12/06/2012 HERNANDEZ DO, AINSLEY K 785.2 Murmurs 12/06/2012 TIFFANIE CAMPOS APRN 414.00 CORONARY ARTERY DISEASE 12/06/2012 TIFFANIE CAMPOS APRN 785.2 Murmurs 12/06/2012 HERNANDEZ DO, AINSLEY K 414.00 CORONARY ARTERY DISEASE 12/06/2012 HERNANDEZ DO, AINSLEY K 785.2 Murmurs 12/06/2012 HERNANDEZ DO, AINSLEY K 414.00 CORONARY ARTERY DISEASE 12/06/2012 HERNANDEZ DO, AINLSEY K 785.2 Murmurs 12/06/2012 CAMPOS ACCESS CONSULTANT, TIFFANIE J 414.00 CORONARY ARTERY DISEASE 12/06/2012 CAMPOS ACCESS CONSULTANT, TIFFANIE J 785.2 Murmurs 12/06/2012 TERRA MCADAMS, COBY 414.00 CORONARY ARTERY DISEASE 12/06/2012 COBY ELLISON MD 785.2 Murmurs 12/06/2012 HERNANDEZ DO, AINSLEY K 414.00 CORONARY ARTERY DISEASE 12/06/2012 HERNANDEZ DO, AINSLEY K 785.2 Murmurs 12/06/2012 VALDIVIA ACCESS CONSULTANT, ALLA R 414.00 CORONARY ARTERY DISEASE 12/06/2012 VALDIVIA ACCESS CONSULTANT, ALLA R 785.2 Murmurs 12/06/2012 CAMPOS ACCESS CONSULTANT, TIFFANIE J 414.00 CORONARY ARTERY DISEASE 12/06/2012 CAMPOS ACCESS CONSULTANT, TIFFANIE J 785.2 Murmurs 12/06/2012 CAMPOS ACCESS CONSULTANT, TIFFANIE J 414.00 CORONARY ARTERY DISEASE 12/06/2012 CAMPOS ACCESS CONSULTANT, TIFFANIE J 785.2 Murmurs 12/06/2012 CAMPOS ACCESS CONSULTANT, TIFFANIE J 414.00 CORONARY ARTERY DISEASE 12/06/2012 CAMPOS ACCESS CONSULTANT, TIFFANIE J 785.2 Murmurs 12/12/2012 272.4 HYPERLIPIDEMIA 12/12/2012 V65.42 Anticipatory Guidance: Tobacco Use 12/12/2012 272.4 HYPERLIPIDEMIA 12/12/2012 V65.42 Anticipatory Guidance: Tobacco Use 12/12/2012 HEAVEN SOLOMON DDS F 272.4 HYPERLIPIDEMIA 12/12/2012 HEAVEN SOLOMON DDS V65.42 Anticipatory Guidance: Tobacco Use 12/12/2012 MIRELLA ORTIZ MD 272.4 HYPERLIPIDEMIA 12/12/2012 MIRELLA ORTIZ MD V65.42 Anticipatory Guidance: Tobacco Use 12/12/2012 272.4 HYPERLIPIDEMIA 12/12/2012 V65.42 Anticipatory Guidance: Tobacco Use 12/12/2012 272.4 HYPERLIPIDEMIA 12/12/2012 V65.42 Anticipatory Guidance: Tobacco Use 12/12/2012 MIRELLA ORTIZ MD 272.4 HYPERLIPIDEMIA 12/12/2012 MIRELLA ORTIZ MD V65.42 Anticipatory Guidance: Tobacco Use 12/12/2012 HERNANDEZ DO, AINSLEY K 272.4 HYPERLIPIDEMIA 12/12/2012 HERNANDEZ DO, AINSLEY K V65.42 Anticipatory Guidance: Tobacco Use 12/12/2012 HERNANDEZ DO, AINSLEY K 272.4 HYPERLIPIDEMIA 12/12/2012 HERNANDEZ DO, AINSLEY K V65.42 Anticipatory Guidance: Tobacco Use 12/12/2012 HERNANDEZ DO, AINSLEY K 272.4 HYPERLIPIDEMIA 12/12/2012 HERNANDEZ DO, AINSLEY K V65.42 Anticipatory Guidance: Tobacco Use 12/12/2012 TIFFANIE CAMPOS APRN 272.4 HYPERLIPIDEMIA 12/12/2012 TIFFANIE CAMPOS APRN V65.42 Anticipatory Guidance: Tobacco Use 12/12/2012 HERNANDEZ DO, AINSLEY K 272.4 HYPERLIPIDEMIA 12/12/2012 HERNANDEZ DO, AINSLEY K V65.42 Anticipatory Guidance: Tobacco Use 12/12/2012 HERNANDEZ DO, AINSLEY K 272.4 HYPERLIPIDEMIA 12/12/2012 HERNANDEZ DO, AINSLEY K V65.42 Anticipatory Guidance: Tobacco Use 12/12/2012 TIFFANIE CAMPOS APRN 272.4 HYPERLIPIDEMIA 12/12/2012 TIFFANIE CAMPOS APRN V65.42 Anticipatory Guidance: Tobacco Use 12/12/2012 COBY ELLISON MD 272.4 HYPERLIPIDEMIA 12/12/2012 COBY ELLISON MD V65.42 Anticipatory Guidance: Tobacco Use 12/12/2012 HERNANDEZ DO, AINSLEY K 272.4 HYPERLIPIDEMIA 12/12/2012 HERNANDEZ DO, AINSLEY K V65.42 Anticipatory Guidance: Tobacco Use 12/12/2012 ALLA VALDIVIA APRN 272.4 HYPERLIPIDEMIA 12/12/2012 ALLA VALDIVIA APRN V65.42 Anticipatory Guidance: Tobacco Use 12/12/2012 TIFFANIE CAMPOS APRN 272.4 HYPERLIPIDEMIA 12/12/2012 TIFFANIE CAMPOS APRN V65.42 Anticipatory Guidance: Tobacco Use 12/12/2012 TIFFANIE CAMPOS APRN 272.4 HYPERLIPIDEMIA 12/12/2012 TIFFANIE CAMPOS APRN V65.42 Anticipatory Guidance: Tobacco Use 12/12/2012 TIFFANIE CAMPOS APRN 272.4 HYPERLIPIDEMIA 12/12/2012 TIFFANIE CAMPOS APRN V65.42 Anticipatory Guidance: Tobacco Use 12/17/2012 794.31 NONSPECIFIC ABNORMAL ELECTROCARDIOGRAM (ECG) (EKG) 12/17/2012 JUANITO MENDOZAS, HEAVEN Velasquez 794.31 NONSPECIFIC ABNORMAL ELECTROCARDIOGRAM (ECG) (EKG) 12/17/2012 MIRELLA ORTIZ MD 794.31 NONSPECIFIC ABNORMAL ELECTROCARDIOGRAM (ECG) (EKG) 12/17/2012 794.31 NONSPECIFIC ABNORMAL ELECTROCARDIOGRAM (ECG) (EKG) 12/17/2012 794.31 NONSPECIFIC ABNORMAL ELECTROCARDIOGRAM (ECG) (EKG) 12/17/2012 MIRELLA ORTIZ MD 794.31 NONSPECIFIC ABNORMAL ELECTROCARDIOGRAM (ECG) (EKG) 12/17/2012 HERNANDEZ MICHAEL MANNA K 794.31 NONSPECIFIC ABNORMAL ELECTROCARDIOGRAM (ECG) (EKG) 12/17/2012 HERNANDEZ MICHAEL MANNA K 794.31 NONSPECIFIC ABNORMAL ELECTROCARDIOGRAM (ECG) (EKG) 12/17/2012 HERNANDEZ MICHAEL MANNA K 794.31 NONSPECIFIC ABNORMAL ELECTROCARDIOGRAM (ECG) (EKG) 12/17/2012 TIFFANIE CAMPOS APRN 794.31 NONSPECIFIC ABNORMAL ELECTROCARDIOGRAM (ECG) (EKG) 12/17/2012 HERNANDEZ MICHAEL MANNA K 794.31 NONSPECIFIC ABNORMAL ELECTROCARDIOGRAM (ECG) (EKG) 12/17/2012 HERNANDEZ MICHAEL MANNA K 794.31 NONSPECIFIC ABNORMAL ELECTROCARDIOGRAM (ECG) (EKG) 12/17/2012 TIFFANIE CAMPOS APRN 794.31 NONSPECIFIC ABNORMAL ELECTROCARDIOGRAM (ECG) (EKG) 12/17/2012 COBY ELLISON MD 794.31 NONSPECIFIC ABNORMAL ELECTROCARDIOGRAM (ECG) (EKG) 12/17/2012 AINSLEY HERNANDEZ DO 794.31 NONSPECIFIC ABNORMAL ELECTROCARDIOGRAM (ECG) (EKG) 12/17/2012 ALLA VALDIVIA APRN 794.31 NONSPECIFIC ABNORMAL ELECTROCARDIOGRAM (ECG) (EKG) 12/17/2012 TIFFANIE CAMPOS APRN 794.31 NONSPECIFIC ABNORMAL ELECTROCARDIOGRAM (ECG) (EKG) 12/17/2012 TIFFANIE CAMPOS APRN 794.31 NONSPECIFIC ABNORMAL ELECTROCARDIOGRAM (ECG) (EKG) 12/17/2012 TIFFANIE CAMPOS APRN 794.31 NONSPECIFIC ABNORMAL ELECTROCARDIOGRAM (ECG) (EKG) 04/22/2013 401.1 ESSENTIAL HYPERTENSION BENIGN 04/22/2013 MIRELLA ORTIZ MD 401.1 ESSENTIAL HYPERTENSION BENIGN 04/22/2013 DAVID MANN AINSLEY K 401.1 ESSENTIAL HYPERTENSION BENIGN 04/22/2013 HERNANDEZ DO AINSLEY K 401.1 ESSENTIAL HYPERTENSION BENIGN 04/22/2013 HERNANDEZ DO AINSLEY K 401.1 ESSENTIAL HYPERTENSION BENIGN 04/22/2013 TIFFANIE CAMPOS APRN 401.1 ESSENTIAL HYPERTENSION BENIGN 04/22/2013 HERNANDEZ DOMICHAELA K 401.1 ESSENTIAL HYPERTENSION BENIGN 04/22/2013 HERNANDEZ MICHAEL MANNA K 401.1 ESSENTIAL HYPERTENSION BENIGN 04/22/2013 TIFFANIE CAMPOS APRN 401.1 ESSENTIAL HYPERTENSION BENIGN 04/22/2013 TERRA MCADAMS, COBY 401.1 ESSENTIAL HYPERTENSION BENIGN 04/22/2013 HERNANDEZ MICHAEL MANNA K 401.1 ESSENTIAL HYPERTENSION BENIGN 04/22/2013 ALLA VALDIVIA APRN 401.1 ESSENTIAL HYPERTENSION BENIGN 04/22/2013 TIFFANIE CAMPOS APRN 401.1 ESSENTIAL HYPERTENSION BENIGN 04/22/2013 TIFFANIE CAMPOS APRN 401.1 ESSENTIAL HYPERTENSION BENIGN 04/22/2013 TIFFANIE CAMPOS APRN 401.1 ESSENTIAL HYPERTENSION BENIGN 06/27/2013 DIANA MCADAMS, MIRELLA V15.82 Nicotine abuse 06/27/2013 HERNANDEZ MICHAEL MANNA K V15.82 Nicotine abuse 06/27/2013 HERNANDEZ DO AINSLEY K V15.82 Nicotine abuse 06/27/2013 HERNANDEZ DO AINSLEY K V15.82 Nicotine abuse 06/27/2013 TIFFANIE CAMPOS APRN V15.82 NICOTINE DEPENDENCE - IN REMISSION 06/27/2013 MICHAEL HERNANDEZ DOA K V15.82 NICOTINE DEPENDENCE - IN REMISSION 06/27/2013 MICHAEL HERNANDEZ DOA K V15.82 NICOTINE DEPENDENCE - IN REMISSION 06/27/2013 TIFFANIE CAMPOS APRN V15.82 NICOTINE DEPENDENCE - IN REMISSION 06/27/2013 TERRA MCADAMS, COBY V15.82 NICOTINE DEPENDENCE - IN REMISSION 06/27/2013 MICHAEL HERNANDEZ DOA K V15.82 NICOTINE DEPENDENCE - IN REMISSION 06/27/2013 ALLA VALDIVIA APRN V15.82 NICOTINE DEPENDENCE - IN REMISSION 06/27/2013 TIFFANIE CAMPOS APRN V15.82 NICOTINE DEPENDENCE - IN REMISSION 06/27/2013 TIFFANIE CAMPOS APRN V15.82 NICOTINE DEPENDENCE - IN REMISSION 06/27/2013 TIFFANIE CAMPOS APRN V15.82 NICOTINE DEPENDENCE - IN REMISSION 11/17/2013 TIFFANIE CAMPOS APRN 466.0 ACUTE BRONCHITIS 11/17/2013 DAVID MANN AINSLEY K 466.0 ACUTE BRONCHITIS 11/17/2013 MICHAEL HERNANDEZ DOA K 466.0 ACUTE BRONCHITIS 11/17/2013 TIFFANIE CAMPOS APRN 466.0 ACUTE BRONCHITIS 11/17/2013 TERRA MCADAMS, ALI 466.0 ACUTE BRONCHITIS 11/17/2013 MICHAEL HERNANDEZ DOA K 466.0 ACUTE BRONCHITIS 11/17/2013 ALLA VALDIVIA APRN 466.0 ACUTE BRONCHITIS 11/17/2013 TIFFANIE CAMPOS APRN 466.0 ACUTE BRONCHITIS 11/17/2013 TIFFANIE CAMPOS APRN 466.0 ACUTE BRONCHITIS 11/17/2013 TIFFANIE CAMPOS APRN 466.0 ACUTE BRONCHITIS 12/10/2013 MICHAEL HERNANDEZ DOA K 443.9 INTERMITTENT CLAUDICATION 12/10/2013 DAVID MANN AINSLEY K 786.09 DYSPNEA 12/10/2013 DAVID MANN AINSLEY K 443.9 INTERMITTENT CLAUDICATION 12/10/2013 HERNANDEZ DO AINSLEY K 786.09 DYSPNEA 12/10/2013 TIFFANIE CAMPOS APRN 443.9 INTERMITTENT CLAUDICATION 12/10/2013 TIFFANIE CAMPOS APRN 786.09 DYSPNEA 12/10/2013 TERRA MCADAMS, ALI 443.9 INTERMITTENT CLAUDICATION 12/10/2013 TERRA MCADAMS, ALI 786.09 DYSPNEA 12/10/2013 DAVID MANN AINSLEY K 443.9 INTERMITTENT CLAUDICATION 12/10/2013 DAVID MANN AINSLEY K 786.09 DYSPNEA 12/10/2013 ALLA VALDIVIA APRN 443.9 INTERMITTENT CLAUDICATION 12/10/2013 ALLA VALDIVIA APRN 786.09 DYSPNEA 12/10/2013 TIFFANIE CAMPOS APRN 443.9 INTERMITTENT CLAUDICATION 12/10/2013 TIFFANIE CAMPOS APRN 786.09 DYSPNEA 12/10/2013 TIFFANIE CAMPOS APRN 443.9 INTERMITTENT CLAUDICATION 12/10/2013 TIFFANIE CAMPOS APRN 786.09 DYSPNEA 12/10/2013 TIFFANIE CAMPOS APRN 443.9 INTERMITTENT CLAUDICATION 12/10/2013 TIFFANIE CAMPOS APRN 786.09 DYSPNEA 02/05/2014 AINSLEY HERNANDEZ DO K 356.9 PERIPHERAL NEUROPATHY 02/05/2014 AINSLEY HERNANDEZ DO K 356.9 PERIPHERAL NEUROPATHY 02/05/2014 TIFFANIE CAMPOS APRN J 356.9 PERIPHERAL NEUROPATHY 02/05/2014 COBY ELLISON MD 356.9 PERIPHERAL NEUROPATHY 02/05/2014 AINSLEY HERNANDEZ DO K 356.9 PERIPHERAL NEUROPATHY 02/05/2014 ALLA VALDIVIA APRN R 356.9 PERIPHERAL NEUROPATHY 02/05/2014 TIFFANIE CAMPOS APRN 356.9 PERIPHERAL NEUROPATHY 02/05/2014 TIFFANIE CAMPOS APRN 356.9 PERIPHERAL NEUROPATHY 02/05/2014 TIFFANIE CAMPOS APRN 356.9 PERIPHERAL NEUROPATHY 06/10/2014 MICHAEL HERNANDEZ DOA K 424.0 MITRAL VALVE DISORDERS 06/10/2014 AINSLEY HERNANDEZ DO K 786.50 CHEST PAIN 06/10/2014 TIFFANIE CAMPOS APRN 424.0 MITRAL VALVE DISORDERS 06/10/2014 TIFFANIE CAMPOS APRN 786.50 CHEST PAIN 06/10/2014 COBY ELLISON MD 424.0 MITRAL VALVE DISORDERS 06/10/2014 COBY ELLISON MD 786.50 CHEST PAIN 06/10/2014 AINSLEY HERNANDEZ DO K 424.0 MITRAL VALVE DISORDERS 06/10/2014 MICHAEL HERNANDEZ DOA K 786.50 CHEST PAIN 06/10/2014 ALLA VALDIVIA APRN R 424.0 MITRAL VALVE DISORDERS 06/10/2014 ALLA VALDIVIA APRN 786.50 CHEST PAIN 06/10/2014 TIFFANIE CAMPOS APRN 424.0 MITRAL VALVE DISORDERS 06/10/2014 TIFFANIE CAMPOS APRN 786.50 CHEST PAIN 06/10/2014 TIFFANIE CAMPOS APRN 424.0 MITRAL VALVE DISORDERS 06/10/2014 TIFFANIE CAMPOS APRN 786.50 CHEST PAIN 06/10/2014 TIFFANIE CAMPOS APRN 424.0 MITRAL VALVE DISORDERS 06/10/2014 TIFFANIE CAMPOS APRN 786.50 CHEST PAIN 06/17/2014 COBY ELLISON MD, FACC, FACP CCDS Ot 272.4 HYPERLIPIDEMIA NEC/NOS 06/17/2014 TERRA MD FACC, ALI FACP CCDS Ot 305.1 TOBACCO USE DISORDER 06/17/2014 TERRA MCADAMS FACC, COBY FACP CCDS Ot 401.9 HYPERTENSION NOS 06/17/2014 TERRA MCADAMS FACC, COBY FACP CCDS Ot 414.01 CORONARY ATHEROSCLEROSIS OF [place] CORON 06/17/2014 COBY ELLISON MD, FACC FACP CCDS Ot 414.2 CHRONIC TOTAL OCCLUSION OF CORONARY [place] 06/17/2014 COBY ELLISON MD, FACC FACP CCDS Ot 414.4 CORONARY ATHEROSCLEROSIS DUE TO CALCIFIE 06/17/2014 TERRA MCADAMS FACC, COBY FACP CCDS Ot 424.0 MITRAL VALVE DISORDER 06/17/2014 TERRA MCADAMS FACC, COBY FACP CCDS Ot 440.0 AORTIC ATHEROSCLEROSIS 06/17/2014 TERRA MCADAMS FACC, COBY FACP CCDS Ot 440.1 RENAL ARTERY ATHEROSCLER 06/17/2014 COBY ELLISON MD, FACC FACP CCDS Ot 440.21 ATHEROSCL [place] ARTER EXTREM W INTERMIT 06/17/2014 COBY ELLISON MD, FACC FACP CCDS Ot V58.69 OTH MED,LT,CURRENT USE 06/22/2014 TIFFANIE CAMPOS APRN 724.5 back pain 06/22/2014 COBY ELLISON MD 724.5 back pain 06/22/2014 AINSLEY HERNANDEZ DO 724.5 back pain 06/22/2014 ALLA VALDIVIA APRN 724.5 back pain 06/22/2014 TIFFANIE CAMPOS APRN 724.5 back pain 06/22/2014 TIFFANIE CAMPOS APRN 724.5 back pain 06/22/2014 TIFFANIE CAMPOS APRN 724.5 back pain 08/05/2014 COBY ELLISON MD 433.10 CAROTID 08/05/2014 AINSLEY HERNANDEZ DO 433.10 CAROTID 08/05/2014 ALLA VALDIVIA APRN 433.10 CAROTID 08/05/2014 TIFFANIE CAMPOS APRN 433.10 CAROTID 08/05/2014 TIFFANIE CAMPOS APRN 433.10 CAROTID 08/05/2014 TIFFANIE CAMPOS APRN 433.10 CAROTID 2014 AINSLEY HERNANDEZ DO 235.1 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 CAVITY AND PHARYNX 2014 ALLA VALDIVIA APRN 235.1 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 CAVITY AND PHARYNX 2014 TIFFANIE CAMPOS APRN 235.1 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 CAVITY AND PHARYNX 2014 TIFFANIE CAMPOS APRN 235.1 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 CAVITY AND PHARYNX 2014 TIFFANIE CAMPOS APRN 235.1 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 CAVITY AND PHARYNX 09/19/2014 ALLA VALDIVIA APRN 465.9 UPPER RESPIRATORY INFECTION 09/19/2014 TIFFANIE CAMPOS APRN 465.9 UPPER RESPIRATORY INFECTION 09/19/2014 TIFFANIE CAMPOS APRN 465.9 UPPER RESPIRATORY INFECTION 09/19/2014 TIFFANIE CAMPOS APRN 465.9 UPPER RESPIRATORY INFECTION 10/20/2014 TIFFANIE CAMPOS APRN 780.4 DIZZINESS AND GIDDINESS 10/20/2014 TIFFANIE CAMPOS APRN 780.4 DIZZINESS AND GIDDINESS 10/20/2014 TIFFANIE CAMPOS APRN 780.4 DIZZINESS AND GIDDINESS 12/01/2014 TIFFANIE CAMPOS APRN 682.2 CELLULITIS AND ABSCESS OF TRUNK 06/07/2016 TIFFANIE CAMPOS APRN Ot 414.00 CORON ATHEROSCLER NOS TYPE VESSEL, NATIV 06/07/2016 TERRA MCADAMS FACC, COBY FACP CCDS Ot 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 06/07/2016 TERRA MCADAMS FACC, COBY FACP CCDS Ot 397.0 TRICUSPID VALVE DISEASE 06/07/2016 TERRA MCADAMS FACC, COBY FACP CCDS Ot 414.00 CORON ATHEROSCLER NOS TYPE VESSEL, NATIV 06/07/2016 TERRA MCADAMS FACC, COBY FACP CCDS Ot 443.9 PERIPH VASCULAR DIS NOS 06/07/2016 TERRA MCADAMS FACC, COBY FACP CCDS Ot 785.2 CARDIAC MURMURS NEC 06/12/2016 ROSA MARIA MOLINA DO Ot K21.9 GASTRO-ESOPHAGEAL REFLUX DISEASE WITHOUT 06/12/2016 ROSA MARIA MOLINA DO Ot Z01.818 ENCOUNTER FOR OTHER PREPROCEDURAL EXAMIN 06/12/2016 ROSA MARIA MOLINA DO Ot K21.9 GASTRO-ESOPHAGEAL REFLUX DISEASE WITHOUT 06/12/2016 ROSA MARIA MOLINA DO aMlcolm Ot Z01.818 ENCOUNTER FOR OTHER PREPROCEDURAL EXAMIN 06/12/2016 TIFFANIE CAMPOS ACCESS CONSULTANT Ot 414.00 CORON ATHEROSCLER NOS TYPE VESSEL, NATIV 06/12/2016 TERRA MCADAMS FACC, ALI FACP CCDS Ot 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 06/12/2016 TERRA MCADAMS FACC, ALI FACP CCDS Ot 397.0 TRICUSPID VALVE DISEASE 06/12/2016 TERRA MCADAMS FACC, ALI FACP CCDS Ot 414.00 CORON ATHEROSCLER NOS TYPE VESSEL, NATIV 06/12/2016 TERRA MCADAMS FACC, ALI FACP CCDS Ot 443.9 PERIPH VASCULAR DIS NOS 06/12/2016 TERRA MCADAMS FACC, ALI FACP CCDS Ot 785.2 CARDIAC MURMURS NEC 06/12/2016 TIFFANIE CAMPOS ACCESS CONSULTANT Ot 414.00 CORON ATHEROSCLER NOS TYPE VESSEL, NATIV 06/12/2016 TERRA MCADAMS FACC, ALI FACP CCDS Ot 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 06/12/2016 TERRA MCADAMS FACC, ALI FACP CCDS Ot 397.0 TRICUSPID VALVE DISEASE 06/12/2016 TERRA MCADAMS FACC, ALI FACP CCDS Ot 414.00 CORON ATHEROSCLER NOS TYPE VESSEL, NATIV 06/12/2016 TERRA MCADAMS FACC, ALI FACP CCDS Ot 443.9 PERIPH VASCULAR DIS NOS 06/12/2016 TERRA MCADAMS FACC, ALI FACP CCDS Ot 785.2 CARDIAC MURMURS NEC 06/12/2016 YANET IVERSON MD Ot F17.210 NICOTINE DEPENDENCE, CIGARETTES, UNCOMPL 06/12/2016 YANET IVERSON MD Ot R10.12 LEFT UPPER QUADRANT PAIN 06/12/2016 YANET IVERSON MD Ot R10.32 LEFT LOWER QUADRANT PAIN 06/12/2016 YANET IVERSON MD Ot R10.9 UNSPECIFIED ABDOMINAL PAIN 06/13/2016 YANET IVERSON MD Ot F17.210 NICOTINE DEPENDENCE, CIGARETTES, UNCOMPL 06/13/2016 YANET IVERSON MD Ot R10.12 LEFT UPPER QUADRANT PAIN 06/13/2016 YANET IVERSON MD Ot R10.32 LEFT LOWER QUADRANT PAIN 06/13/2016 YANET IVERSON MD Ot R10.9 UNSPECIFIED ABDOMINAL PAIN 06/13/2016 ROSA MARIA MOLINA DO Ot D12.3 BENIGN NEOPLASM OF TRANSVERSE COLON 06/13/2016 ROSA MARIA MOLINA DO Ot K20.9 ESOPHAGITIS, UNSPECIFIED 06/13/2016 ROSA MARIA MOLINA DO Ot K63.5 POLYP OF COLON 06/13/2016 ROSA MARIA MOLINA DO Ot Z12.11 ENCOUNTER FOR SCREENING FOR MALIGNANT NE 06/14/2016 TIFFANIE CAMPOS ACCESS CONSULTANT Ot 414.00 CORON ATHEROSCLER NOS TYPE VESSEL, NATIV 06/14/2016 TERRA MCADAMS FACC, ALI FACP CCDS Ot 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 06/14/2016 TERRA AGUILERAC, ALI FACP CCDS Ot 397.0 TRICUSPID VALVE DISEASE 06/14/2016 TERRA AGUILERAC, ALI FACP CCDS Ot 414.00 CORON ATHEROSCLER NOS TYPE VESSEL, NATIV 06/14/2016 TERRA AGUILERAC, ALI FACP CCDS Ot 443.9 PERIPH VASCULAR DIS NOS 06/14/2016 TERRA AGUILERAC, ALI FACP CCDS Ot 785.2 CARDIAC MURMURS NEC 06/15/2016 YANET IVERSON MD Ot F17.210 NICOTINE DEPENDENCE, CIGARETTES, UNCOMPL 06/15/2016 YANET IVERSON MD Ot R10.12 LEFT UPPER QUADRANT PAIN 06/15/2016 YANET IVERSON MD Ot R10.32 LEFT LOWER QUADRANT PAIN 06/15/2016 YANET IVERSON MD Ot R10.9 UNSPECIFIED ABDOMINAL PAIN 06/17/2016 TIFFANIE CAMPOS ACCESS CONSULTANT Ot 414.00 CORON ATHEROSCLER NOS TYPE VESSEL, NATIV 06/17/2016 TERRA AGUILERAC, ALI FACP CCDS Ot 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 06/17/2016 TERRA AGUILERAC, ALI FACP CCDS Ot 397.0 TRICUSPID VALVE DISEASE 06/17/2016 TERRA AGUILERAC, ALI FACP CCDS Ot 414.00 CORON ATHEROSCLER NOS TYPE VESSEL, NATIV 06/17/2016 TERRA AGUILERAC, ALI FACP CCDS Ot 443.9 PERIPH VASCULAR DIS NOS 06/17/2016 TERRA AGUILERAC, ALI FACP CCDS Ot 785.2 CARDIAC MURMURS NEC 06/18/2016 YANET IVERSON MD Ot F17.210 NICOTINE DEPENDENCE, CIGARETTES, UNCOMPL 06/18/2016 YANET IVERSON MD Ot R10.12 LEFT UPPER QUADRANT PAIN 06/18/2016 YANET IVERSON MD Ot R10.32 LEFT LOWER QUADRANT PAIN 06/18/2016 YANET IVERSON MD Ot R10.9 UNSPECIFIED ABDOMINAL PAIN 06/20/2016 TIFFANIE CAMPOS ACCESS CONSULTANT Ot 414.00 CORON ATHEROSCLER NOS TYPE VESSEL, NATIV 06/20/2016 TERRA MCADAMS FACC, ALI FACP CCDS Ot 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 06/20/2016 TERRA MCADAMS FACC, ALI FACP CCDS Ot 397.0 TRICUSPID VALVE DISEASE 06/20/2016 TERRA MCADAMS FACC, ALI FACP CCDS Ot 414.00 CORON ATHEROSCLER NOS TYPE VESSEL, NATIV 06/20/2016 TERRA MCADAMS FACC, ALI FACP CCDS Ot 443.9 PERIPH VASCULAR DIS NOS 06/20/2016 TERRA MCADAMS FACC, ALI FACP CCDS Ot 785.2 CARDIAC MURMURS NEC 06/20/2016 TIFFANIE CAMPOS ACCESS CONSULTANT Ot 414.00 CORON ATHEROSCLER NOS TYPE VESSEL, NATIV 06/20/2016 TERRA MCADAMS FACC, ALI FACP CCDS Ot 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 06/20/2016 TERRA MCADAMS FACC, ALI FACP CCDS Ot 397.0 TRICUSPID VALVE DISEASE 06/20/2016 TERRA MCADAMS FACC, ALI FACP CCDS Ot 414.00 CORON ATHEROSCLER NOS TYPE VESSEL, NATIV 06/20/2016 TERRA MCADAMS FACC, ALI FACP CCDS Ot 443.9 PERIPH VASCULAR DIS NOS 06/20/2016 TERRA MCADAMS FACC, ALI FACP CCDS Ot 785.2 CARDIAC MURMURS NEC 08/29/2016 TERRA MCADAMS FACC, ALI FACP CCDS Ot E78.5 HYPERLIPIDEMIA, UNSPECIFIED 08/29/2016 TERRA MCADAMS FACC, COBY FACP CCDS Ot F17.210 NICOTINE DEPENDENCE, CIGARETTES, UNCOMPL 08/29/2016 TERRA MCADAMS FACC, ALI FACP CCDS Ot F32.9 MAJOR DEPRESSIVE DISORDER, SINGLE EPISOD 08/29/2016 COBY ELLISON MD, FACC FACP CCDS Ot I25.10 ATHSCL HEART DISEASE OF [place] CORONARY 08/29/2016 COBY ELLISON MD, FACC FACP CCDS Ot I25.82 CHRONIC TOTAL OCCLUSION OF CORONARY [place] 08/29/2016 TERRA MCADAMS FACC, COBY FACP CCDS Ot I34.0 NONRHEUMATIC MITRAL (VALVE) INSUFFICIENC 08/29/2016 COBY ELLISON MD, FACC FACP CCDS Ot I70.0 ATHEROSCLEROSIS OF [place] 08/29/2016 COBY ELLISON MD, FACC FACP CCDS Ot I70.1 ATHEROSCLEROSIS OF RENAL ARTERY 08/29/2016 TERRA MCADAMS FACC, CBOY FACP CCDS Ot I70.213 ATHSCL [place] ARTERIES OF EXTRM W INTRMT 08/29/2016 COBY ELLISON MD, FACC FACP CCDS Ot I70.92 CHRONIC TOTAL OCCLUSION OF ARTERY OF THE 08/29/2016 COBY ELLISON MD, FACC FACP CCDS Ot R07.89 OTHER CHEST PAIN 08/29/2016 COBY ELLISON MD, FACC FACP CCDS Ot Z79.899 OTHER [facility] (CURRENT) DRUG THERAPY 08/31/2016 KIEL MEZA COFFEE ROASTER Ot I10 ESSENTIAL (PRIMARY) HYPERTENSION 08/31/2016 KIEL MEZA COFFEE ROASTER Ot R06.09 OTHER FORMS OF DYSPNEA 08/31/2016 KIEL MEZA L COFFEE ROASTER Ot R07.9 CHEST PAIN, UNSPECIFIED 09/06/2016 BAIMAKIEL L COFFEE ROASTER Ot I10 ESSENTIAL (PRIMARY) HYPERTENSION 09/06/2016 KIEL MEZA COFFEE ROASTER Ot R06.09 OTHER FORMS OF DYSPNEA 09/06/2016 KIEL MEZA L COFFEE ROASTER Ot R07.9 CHEST PAIN, UNSPECIFIED 09/09/2016 TIFFANIE CAMPOS APRN Ot 414.00 CORON ATHEROSCLER NOS TYPE VESSEL, NATIV 09/09/2016 COBY ELLISON MD, FACC FACP CCDS Ot 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 09/09/2016 TERRA MCADAMS FACC ALI FACP CCDS Ot 397.0 TRICUSPID VALVE DISEASE 09/09/2016 TERRA MCADAMS FACC, ALI FACP CCDS Ot 414.00 CORON ATHEROSCLER NOS TYPE VESSEL, NATIV 09/09/2016 COBY ELLISON MD, FACC FACP CCDS Ot 443.9 PERIPH VASCULAR DIS NOS 09/09/2016 TERRA MCADAMS FACC, COBY AGUILERAP CCDS Ot 785.2 CARDIAC MURMURS NEC 09/09/2016 LUCIOKIEL BESS Lorna COFFEE ROASTER Ot I10 ESSENTIAL (PRIMARY) HYPERTENSION 09/09/2016 LUCIOKIEL BESS Lorna COFFEE ROASTER Ot R06.09 OTHER FORMS OF DYSPNEA 09/09/2016 SUSANAKIEL Lorna COFFEE ROASTER Ot R07.9 CHEST PAIN, UNSPECIFIED 09/09/2016 TIMOTEO MA MD Ot E78.5 HYPERLIPIDEMIA, UNSPECIFIED 09/09/2016 TIMOTEO MA MD, Ot F17.210 NICOTINE DEPENDENCE, CIGARETTES, UNCOMPL 09/09/2016 TIMOTEO MA MD, Ot F32.9 MAJOR DEPRESSIVE DISORDER, SINGLE EPISOD 09/09/2016 TIMOTEO MA MD, Ot G47.33 OBSTRUCTIVE SLEEP APNEA (ADULT) (PEDIATR 09/09/2016 TIMOTEO MA MD, Ot I25.10 ATHSCL HEART DISEASE OF [place] CORONARY 09/09/2016 TIMOTEO MA MD, Ot I25.2 OLD MYOCARDIAL INFARCTION 09/09/2016 TIMOTEO MA MD, Ot I25.82 CHRONIC TOTAL OCCLUSION OF CORONARY [place] 09/09/2016 TIMOTEO MA MD Ot I70.213 ATHSCL [place] ARTERIES OF EXTRM W INTRMT 09/09/2016 TIMOTEO MA MD, Ot J44.9 CHRONIC OBSTRUCTIVE PULMONARY DISEASE, U 09/09/2016 TIMOTEO MA MD, Ot K21.9 GASTRO-ESOPHAGEAL REFLUX DISEASE WITHOUT 09/09/2016 TIMOTEO MA MD, Ot R07.9 CHEST PAIN, UNSPECIFIED 09/09/2016 TIMOTEO MA MD, Ot Z98.61 CORONARY ANGIOPLASTY STATUS 09/11/2016 TIFFANIE CAMPOS APRN Ot 414.00 CORON ATHEROSCLER NOS TYPE VESSEL, NATIV 09/11/2016 TERRA MCADAMS FACC, COBY AGUILERAP CCDS Ot 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 09/11/2016 TERRA MCADAMS FACC, COBY AGUILERAP CCDS Ot 397.0 TRICUSPID VALVE DISEASE 09/11/2016 TERRA MCADAMS FACC, COBY AGUILERAP CCDS Ot 414.00 CORON ATHEROSCLER NOS TYPE VESSEL, NATIV 09/11/2016 TERRA MCADAMS FACC, ALI FACP CCDS Ot 443.9 PERIPH VASCULAR DIS NOS 09/11/2016 TERRA MCADAMS FACC, ALI FACP CCDS Ot 785.2 CARDIAC MURMURS NEC 09/11/2016 KIEL MEZA L COFFEE ROASTER Ot I10 ESSENTIAL (PRIMARY) HYPERTENSION 09/11/2016 LUCIOMA KIEL L COFFEE ROASTER Ot R06.09 OTHER FORMS OF DYSPNEA 09/11/2016 LUCIOMAKIEL L COFFEE ROASTER Ot R07.9 CHEST PAIN, UNSPECIFIED 09/11/2016 BAIMA, KIEL L COFFEE ROASTER Ot I10 ESSENTIAL (PRIMARY) HYPERTENSION 09/11/2016 BAIMA KIEL L COFFEE ROASTER Ot R06.09 OTHER FORMS OF DYSPNEA 09/11/2016 SUSANA KIEL L COFFEE ROASTER Ot R07.9 CHEST PAIN, UNSPECIFIED 09/12/2016 TERRA MCADAMS FACC, ALI FACP CCDS Ot E78.5 HYPERLIPIDEMIA, UNSPECIFIED 09/12/2016 TERRA MCADAMS FACC, ALI FACP CCDS Ot F17.210 NICOTINE DEPENDENCE, CIGARETTES, UNCOMPL 09/12/2016 TERRA MCADAMS FACC, ALI FACP CCDS Ot G47.33 OBSTRUCTIVE SLEEP APNEA (ADULT) (PEDIATR 09/12/2016 TERRA MCADAMS FACC, ALI FACP CCDS Ot I25.10 ATHSCL HEART DISEASE OF [place] CORONARY 09/12/2016 TERRA MCADAMS FACC, ALI FACP CCDS Ot I70.213 ATHSCL [place] ARTERIES OF EXTRM W INTRMT 09/12/2016 TERRA MCADAMS FACC, ALI FACP CCDS Ot Z79.899 OTHER [facility] (CURRENT) DRUG THERAPY 09/18/2016 KIEL MEZA L COFFEE ROASTER Ot I10 ESSENTIAL (PRIMARY) HYPERTENSION 09/18/2016 KIEL MEZA L COFFEE ROASTER Ot R06.09 OTHER FORMS OF DYSPNEA 09/18/2016 KIEL MEZA L COFFEE ROASTER Ot R07.9 CHEST PAIN, UNSPECIFIED 09/26/2016 TERRA MCADAMS FACC, ALI FACP CCDS Ot E78.5 HYPERLIPIDEMIA, UNSPECIFIED 09/26/2016 TERRA MCADAMS FACC, ALI FACP CCDS Ot F17.210 NICOTINE DEPENDENCE, CIGARETTES, UNCOMPL 09/26/2016 TERRA MCADAMS FACC, ALI FACP CCDS Ot F32.9 MAJOR DEPRESSIVE DISORDER, SINGLE EPISOD 09/26/2016 TERRA AGUILERAC, ALI FACP CCDS Ot I25.10 ATHSCL HEART DISEASE OF [place] CORONARY 09/26/2016 TERRA AGUILERAC, ALI FACP CCDS Ot I25.82 CHRONIC TOTAL OCCLUSION OF CORONARY [place] 09/26/2016 TERRA MCADAMS FACC, ALI FACP CCDS Ot I34.0 NONRHEUMATIC MITRAL (VALVE) INSUFFICIENC 09/26/2016 TERRA MCADAMS FACC, ALI FACP CCDS Ot I70.0 ATHEROSCLEROSIS OF [place] 09/26/2016 TERRA MCADAMS FACC, ALI FACP CCDS Ot I70.1 ATHEROSCLEROSIS OF RENAL ARTERY 09/26/2016 TERRA MCADAMS FACC, ALI FACP CCDS Ot I70.213 ATHSCL [place] ARTERIES OF EXTRM W [facility] 09/26/2016 TERRA AGUILERAC, ALI FACP CCDS Ot I70.92 CHRONIC TOTAL OCCLUSION OF ARTERY OF THE 09/26/2016 TERRA MCADAMS FACC, ALI FACP CCDS Ot R07.89 OTHER CHEST PAIN 09/26/2016 TERRA MCADAMS FACC, ALI FACP CCDS Ot Z79.899 OTHER INTERFACE ANALYST (CURRENT) DRUG THERAPY 09/29/2016 TERRA MCADAMS FACC, ALI FACP CCDS Ot E78.5 HYPERLIPIDEMIA, UNSPECIFIED 09/29/2016 TERRA AGUILERAC, ALI FACP CCDS Ot F17.210 NICOTINE DEPENDENCE, CIGARETTES, UNCOMPL 09/29/2016 TERRA MCADAMS FACC, ALI FACP CCDS Ot F32.9 MAJOR DEPRESSIVE DISORDER, SINGLE EPISOD 09/29/2016 TERRA AGUILERAC, ALI FACP CCDS Ot I25.10 ATHSCL HEART DISEASE OF [place] CORONARY 09/29/2016 TERRA AGUILERAC, ALI FACP CCDS Ot I25.82 CHRONIC TOTAL OCCLUSION OF CORONARY [place] 09/29/2016 TERRA MCADAMS FACC, ALI FACP CCDS Ot I34.0 NONRHEUMATIC MITRAL (VALVE) INSUFFICIENC 09/29/2016 TERRA AGUILERAC, ALI FACP CCDS Ot I70.0 ATHEROSCLEROSIS OF [place] 09/29/2016 TERRA AGUILERAC, ALI FACP CCDS Ot I70.1 ATHEROSCLEROSIS OF RENAL ARTERY 09/29/2016 TERRA AGUILERAC, ALI FACP CCDS Ot I70.213 ATHSCL [place] ARTERIES OF EXTRM W INTRMT 09/29/2016 TERRA MCADAMS FACC, ALI FACP CCDS Ot I70.92 CHRONIC TOTAL OCCLUSION OF ARTERY OF THE 09/29/2016 TERRA MCADAMS FACC, ALI FACP CCDS Ot R07.89 OTHER CHEST PAIN 09/29/2016 TERRA MCADAMS FACC, ALI FACP CCDS Ot Z79.899 OTHER INTERFACE ANALYST (CURRENT) DRUG THERAPY 02/16/2017 TIFFANIE CAMPOS ACCESS CONSULTANT Ot 414.00 CORON ATHEROSCLER NOS TYPE VESSEL, NATIV 02/16/2017 TERRA MCADAMS FACC, ALI FACP CCDS Ot 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 02/16/2017 TERRA MCADAMS FACC, ALI FACP CCDS Ot 397.0 TRICUSPID VALVE DISEASE 02/16/2017 TERRA MCADAMS FACC, ALI FACP CCDS Ot 414.00 CORON ATHEROSCLER NOS TYPE VESSEL, NATIV 02/16/2017 TERRA MCADAMS FACC, ALI FACP CCDS Ot 443.9 PERIPH VASCULAR DIS NOS 02/16/2017 TERRA MCADAMS FACC, ALI FACP CCDS Ot 785.2 CARDIAC MURMURS NEC 02/16/2017 KIEL MEZA COFFEE ROASTER Ot I10 ESSENTIAL (PRIMARY) HYPERTENSION 02/16/2017 KIEL MEZA L COFFEE ROASTER Ot R06.09 OTHER FORMS OF DYSPNEA 02/16/2017 KIEL MEZA COFFEE ROASTER Ot R07.9 CHEST PAIN, UNSPECIFIED 03/02/2017 TIFFANIE CAMPOS ACCESS CONSULTANT Ot 414.00 CORON ATHEROSCLER NOS TYPE VESSEL, NATIV 03/02/2017 TERRA MCADAMS FACC, COBY FACP CCDS Ot 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 03/02/2017 TERRA MCADAMS FACC, ALI FACP CCDS Ot 397.0 TRICUSPID VALVE DISEASE 03/02/2017 TERRA MCADAMS FACC, ALI FACP CCDS Ot 414.00 CORON ATHEROSCLER NOS TYPE VESSEL, NATIV 03/02/2017 TERRA MCADAMS FACC, ALI FACP CCDS Ot 443.9 PERIPH VASCULAR DIS NOS 03/02/2017 TERRA MCADAMS FACC, ALI FACP CCDS Ot 785.2 CARDIAC MURMURS NEC 03/02/2017 DARLINE MEZAHER L COFFEE ROASTER Ot I10 ESSENTIAL (PRIMARY) HYPERTENSION 03/02/2017 DARLINE MEZAHER L COFFEE ROASTER Ot R06.09 OTHER FORMS OF DYSPNEA 03/02/2017 KIEL MEZA COFFEE ROASTER Ot R07.9 CHEST PAIN, UNSPECIFIED 03/05/2017 ROSA MARIA MOLINA DO Ot Z01.818 ENCOUNTER FOR OTHER PREPROCEDURAL EXAMIN 03/05/2017 ROSA MARIA MOLINA DO Ot Z86.010 PERSONAL HISTORY OF COLONIC POLYPS 03/06/2017 TIFFANIE CAMPOS ACCESS CONSULTANT Ot 414.00 CORON ATHEROSCLER NOS TYPE VESSEL, NATIV 03/06/2017 TERRA MCADAMS FACC, ALI FACP CCDS Ot 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 03/06/2017 TERRA MCADAMS FACC, ALI FACP CCDS Ot 397.0 TRICUSPID VALVE DISEASE 03/06/2017 TERRA MCADAMS FACC, ALI FACP CCDS Ot 414.00 CORON ATHEROSCLER NOS TYPE VESSEL, NATIV 03/06/2017 TERRA MCADAMS FACC, ALI FACP CCDS Ot 443.9 PERIPH VASCULAR DIS NOS 03/06/2017 TERRA MCADAMS FACC, ALI FACP CCDS Ot 785.2 CARDIAC MURMURS NEC 03/06/2017 KIEL MEZA COFFEE ROASTER Ot I10 ESSENTIAL (PRIMARY) HYPERTENSION 03/06/2017 KIEL MEZA COFFEE ROASTER Ot R06.09 OTHER FORMS OF DYSPNEA 03/06/2017 KIEL MEZA COFFEE ROASTER Ot R07.9 CHEST PAIN, UNSPECIFIED 03/06/2017 ROSA MARIA MOLINA DO Ot D12.2 BENIGN NEOPLASM OF ASCENDING COLON 03/06/2017 ROSA MARIA MOLINA DO Ot D12.3 BENIGN NEOPLASM OF TRANSVERSE COLON 03/06/2017 ROSA MARIA MOLINA DO Ot F17.210 NICOTINE DEPENDENCE, CIGARETTES, UNCOMPL 03/06/2017 ROSA MARIA MOLINA DO Ot I25.10 ATHSCL HEART DISEASE OF [place] CORONARY 03/06/2017 ROSA MARIA MOLINA DO Ot I73.9 PERIPHERAL VASCULAR DISEASE, UNSPECIFIED 03/06/2017 ROSA MARIA MOLINA DO Ot Z79.02 FDC (CURRENT) USE OF ANTITHROMBOTI 03/15/2017 ROSA MARIA MOLINA DO Ot D12.2 BENIGN NEOPLASM OF ASCENDING COLON 03/15/2017 ROSA MARIA MOLINA DO Ot D12.3 BENIGN NEOPLASM OF TRANSVERSE COLON 03/15/2017 ROSA MARIA MOLINA DO Ot F17.210 NICOTINE DEPENDENCE, CIGARETTES, UNCOMPL 03/15/2017 ROSA MARIA MOLINA DO Ot I25.10 ATHSCL HEART DISEASE OF [place] CORONARY 03/15/2017 ROSA MARIA MOLINA DO Ot I73.9 PERIPHERAL VASCULAR DISEASE, UNSPECIFIED 03/15/2017 ROSA MARIA MOLINA DO Ot Z79.02 [facility]DC (CURRENT) USE OF ANTITHROMBOTI 07/11/2017 TIFFANIE CAMPOS ACCESS CONSULTANT Ot 414.00 CORON ATHEROSCLER NOS TYPE VESSEL, NATIV 07/11/2017 TERRA AGUILERAC, ALI FACP CCDS Ot 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 07/11/2017 TERRA MCADAMS FACC, ALI FACP CCDS Ot 397.0 TRICUSPID VALVE DISEASE 07/11/2017 TERRA MCADAMS FACC, ALI FACP CCDS Ot 414.00 CORON ATHEROSCLER NOS TYPE VESSEL, NATIV 07/11/2017 TERRA AGUILERAC, ALI FACP CCDS Ot 443.9 PERIPH VASCULAR DIS NOS 07/11/2017 TERRA AGUILERAC, ALI FACP CCDS Ot 785.2 CARDIAC MURMURS NEC 07/11/2017 KIEL MEZA COFFEE ROASTER Ot I10 ESSENTIAL (PRIMARY) HYPERTENSION 07/11/2017 DARLINE MEZAHER L COFFEE ROASTER Ot R06.09 OTHER FORMS OF DYSPNEA 07/11/2017 KIEL MEZA COFFEE ROASTER Ot R07.9 CHEST PAIN, UNSPECIFIED 07/20/2017 TIFFANIE CAMPOS ACCESS CONSULTANT Ot 414.00 CORON ATHEROSCLER NOS TYPE VESSEL, NATIV 07/20/2017 TERRA MCADAMS FACC, ALI FACP CCDS Ot 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 07/20/2017 TERRA AGUILERAC, ALI FACP CCDS Ot 397.0 TRICUSPID VALVE DISEASE 07/20/2017 TERRA MCADAMS FACC, ALI FACP CCDS Ot 414.00 CORON ATHEROSCLER NOS TYPE VESSEL, NATIV 07/20/2017 TERRA AGUILERAC, ALI FACP CCDS Ot 443.9 PERIPH VASCULAR DIS NOS 07/20/2017 TERRA AGUILERAC, ALI FACP CCDS Ot 785.2 CARDIAC MURMURS NEC 07/20/2017 DARLINE MEZAHER L COFFEE ROASTER Ot I10 ESSENTIAL (PRIMARY) HYPERTENSION 07/20/2017 DARLINE MEZAHER L COFFEE ROASTER Ot R06.09 OTHER FORMS OF DYSPNEA 07/20/2017 KIEL MEZA COFFEE ROASTER Ot R07.9 CHEST PAIN, UNSPECIFIED 07/25/2017 KIEL MEZA COFFEE ROASTER Ot M79.604 PAIN IN RIGHT LEG 07/25/2017 KIEL MEZA COFFEE ROASTER Ot M79.605 PAIN IN LEFT LEG 07/25/2017 KIEL MEZA COFFEE ROASTER Ot Z53.29 PROC/TRTMT NOT CRD OUT BEC PT DECISION F 01/15/2018 TIFFANIE CAMPOS ACCESS CONSULTANT Ot 414.00 CORON ATHEROSCLER NOS TYPE VESSEL, NATIV 01/15/2018 TERRA MCADAMS FACC, ALI FACP CCDS Ot 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 01/15/2018 TERRA MCADAMS FACC, ALI FACP CCDS Ot 397.0 TRICUSPID VALVE DISEASE 01/15/2018 TERRA MCADAMS FACC, ALI FACP CCDS Ot 414.00 CORON ATHEROSCLER NOS TYPE VESSEL, NATIV 01/15/2018 TERRA MCADAMS FACC, ALI FACP CCDS Ot 443.9 PERIPH VASCULAR DIS NOS 01/15/2018 TERRA MCADAMS FACC, ALI FACP CCDS Ot 785.2 CARDIAC MURMURS NEC 01/15/2018 LUCIOKIEL BESS COFFEE ROASTER Ot I10 ESSENTIAL (PRIMARY) HYPERTENSION 01/15/2018 LUCIOKIEL BESS COFFEE ROASTER Ot R06.09 OTHER FORMS OF DYSPNEA 01/15/2018 KIEL MEZA COFFEE ROASTER Ot R07.9 CHEST PAIN, UNSPECIFIED 01/18/2018 TIFFANIE CAMPOS ACCESS CONSULTANT Ot 414.00 CORON ATHEROSCLER NOS TYPE VESSEL, NATIV 01/18/2018 TERRA MCADAMS FACC, ALI FACP CCDS Ot 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 01/18/2018 TERRA MCADAMS FACC, ALI FACP CCDS Ot 397.0 TRICUSPID VALVE DISEASE 01/18/2018 TERRA MCADAMS FACC, ALI FACP CCDS Ot 414.00 CORON ATHEROSCLER NOS TYPE VESSEL, NATIV 01/18/2018 TERRA MCADAMS FACC, ALI FACP CCDS Ot 443.9 PERIPH VASCULAR DIS NOS 01/18/2018 TERRA MCADAMS FACC, ALI FACP CCDS Ot 785.2 CARDIAC MURMURS NEC 01/18/2018 SUSANADARLINEKIEL L COFFEE ROASTER Ot I10 ESSENTIAL (PRIMARY) HYPERTENSION 01/18/2018 BAIMAKIEL L COFFEE ROASTER Ot R06.09 OTHER FORMS OF DYSPNEA 01/18/2018 BAIMA KIEL L COFFEE ROASTER Ot R07.9 CHEST PAIN, UNSPECIFIED 01/21/2018 BAIMAKIEL L COFFEE ROASTER Ot E78.5 HYPERLIPIDEMIA, UNSPECIFIED 01/21/2018 BAIMA, KIEL L COFFEE ROASTER Ot I10 ESSENTIAL (PRIMARY) HYPERTENSION 01/21/2018 BAIMA KIEL L COFFEE ROASTER Ot I73.9 PERIPHERAL VASCULAR DISEASE, UNSPECIFIED 01/21/2018 BAIMA KIEL L COFFEE ROASTER Ot I77.9 DISORDER OF ARTERIES AND ARTERIOLES, UNS 01/21/2018 BAIMA, KIEL L COFFEE ROASTER Ot R06.09 OTHER FORMS OF DYSPNEA 01/21/2018 BAIMA KIEL L COFFEE ROASTER Ot Z98.890 OTHER SPECIFIED POSTPROCEDURAL STATES 02/14/2018 BAIKIEL BESS L COFFEE ROASTER Ot E78.5 HYPERLIPIDEMIA, UNSPECIFIED 02/14/2018 BAIMA, KIEL L COFFEE ROASTER Ot I10 ESSENTIAL (PRIMARY) HYPERTENSION 02/14/2018 BAIMA KIEL L COFFEE ROASTER Ot I73.9 PERIPHERAL VASCULAR DISEASE, UNSPECIFIED 02/14/2018 BAIMA KIEL L COFFEE ROASTER Ot I77.9 DISORDER OF ARTERIES AND ARTERIOLES, UNS 02/14/2018 BAIMA KIEL L COFFEE ROASTER Ot R06.09 OTHER FORMS OF DYSPNEA 02/14/2018 BAIMA KIEL L COFFEE ROASTER Ot Z98.890 OTHER SPECIFIED POSTPROCEDURAL STATES Procedures Code [place] [address] EKG, TRACING (IN-HOUSE) 12/03/2012 77092 ROUTINE VENIPUNCTURE 12/09/2012 97617 A1C (IN-HOUSE) 12/09/2012 11500 CMP 12/09/2012 02297 LIPID PANEL 12/09/2012 6504066 GFR CALC (RESULT ONLY) 12/09/2012 SMILEY BAUMAN 12/13/2012 28814 NUCLEAR STRESS TESTING 01/02/2013 60521 ECHO 2D 01/02/2013 98202 OXIMETRY 01/14/2013 65083 PULMONARY FUNCTION TEST (IN- HOUSE) 06/27/2013 42032 RESPIRATORY FLOW VOLUME LOOP 06/27/2013 00568 PULMONARY EDUCATION 06/27/2013 40494 ECHO 2D 11/05/2013 54650 JOSE 11/05/2013 62494 ROUTINE VENIPUNCTURE 11/06/2013 [id number] GFR CALC (RESULT ONLY) 11/06/2013 26919 CMP 11/06/2013 62780 LIPID PANEL 11/06/2013 06176 MAGNESIUM 11/06/2013 07874 TSH 11/06/2013 J3420 B12 VITAMIN INJECTION 11/17/2013 85087 THERAPUTIC INJ SQ/IM 11/17/2013 38573 OXIMETRY 02/05/2014 95082 LEFT HEART CATH 06/11/2014 23533 US CAROTID DOPPLER 06/11/2014 09186 OXIMETRY 06/11/2014 OTOLARYNG ALLA NDIAYE 2014 27662 OXIMETRY 08/27/2014 2000F BLOOD PRESSURE CHECK 10/26/2014 98856 ROUTINE VENIPUNCTURE 10/26/2014 10841 CMP 10/26/2014 14443 LIPID PANEL 10/26/2014 83732 CBC 10/26/2014 THYANA THYROID ANALYZER 10/26/2014 Results Test Result Range Complete blood count (CBC) with automated white blood cell (WBC) differential - 06/12/16 15:30 Blood leukocytes automated count (number/volume) 7.1 10*3/uL 4.3-11.0 Blood erythrocytes automated count (number/volume) 5.06 10*6/uL 4.35-5.85 Venous blood hemoglobin measurement (mass/volume) 15.4 g/dL 13.3-17.7 Blood hematocrit (volume fraction) 44 % 40-54 Automated erythrocyte mean corpuscular volume 86 [foz_us] 80-99 Automated erythrocyte mean corpuscular hemoglobin (mass per erythrocyte) 30 pg 25-34 Automated erythrocyte mean corpuscular hemoglobin concentration measurement ( mass/volume) 35 g/dL 32-36 Automated erythrocyte distribution width ratio 13.2 % 10.0-14.5 Automated blood platelet count (count/volume) 159 10*3/uL 130-400 Automated blood platelet mean volume measurement 11.2 [foz_us] 7.4-10.4 Automated blood neutrophils/100 leukocytes 50 % 42-75 Automated blood lymphocytes/100 leukocytes 35 % 12-44 Blood monocytes/100 leukocytes 9 % 0-12 Automated blood eosinophils/100 leukocytes 5 % 0-10 Automated blood basophils/100 leukocytes 0 % 0-10 Blood neutrophils automated count (number/volume) 3.6 10*3 1.8-7.8 Blood lymphocytes automated count (number/volume) 2.5 10*3 1.0-4.0 Blood monocytes automated count (number/volume) 0.7 10*3 0.0-1.0 Automated eosinophil count 0.3 10*3/uL 0.0-0.3 Automated blood basophil count (count/volume) 0.0 10*3/uL 0.0-0.1 Comprehensive metabolic panel - 06/12/16 15:30 Serum or plasma sodium measurement (moles/volume) 138 mmol/L 135-145 Serum or plasma potassium measurement (moles/volume) 4.4 mmol/L 3.6-5.0 Serum or plasma chloride measurement (moles/volume) 101 mmol/L 98-107 Carbon dioxide 29 mmol/L 21-32 Serum or plasma anion gap determination (moles/volume) 8 mmol/L 5-14 Serum or plasma urea nitrogen measurement (mass/volume) 17 mg/dL 7-18 Serum or plasma creatinine measurement (mass/volume) 1.05 mg/dL 0.60-1.30 Serum or plasma urea nitrogen/creatinine mass ratio 16 NRG Serum or plasma creatinine measurement with calculation of estimated glomerular filtration rate > NRG Serum or plasma glucose measurement (mass/volume) 102 mg/dL 70-105 Serum or plasma calcium measurement (mass/volume) 9.7 mg/dL 8.5-10.1 Serum or plasma total bilirubin measurement (mass/volume) 0.6 mg/dL 0.1-1.0 Serum or plasma alkaline phosphatase measurement (enzymatic activity/volume) 75 U/L 40-136 Serum or plasma aspartate aminotransferase measurement (enzymatic activity/ volume) 43 U/L 5-34 Serum or plasma alanine aminotransferase measurement (enzymatic activity/volume ) 26 U/L 0-55 Serum or plasma protein measurement (mass/volume) 7.0 g/dL 6.4-8.2 Serum or plasma albumin measurement (mass/volume) 4.2 g/dL 3.2-4.5 Magnesium - 06/12/16 15:30 Magnesium 2.4 mg/dL 1.8-2.4 Serum or plasma amylase measurement (enzymatic activity/volume) - 06/12/16 15: 30 Serum or plasma amylase measurement (enzymatic activity/volume) 93 U /L 25-125 Lipase - 06/12/16 15:30 Lipase 53 U/L 8-78 Automated blood complete blood count (hemogram) panel - 08/29/16 07:32 Blood leukocytes automated count (number/volume) 8.6 10*3/uL 4.3-11.0 Blood erythrocytes automated count (number/volume) 5.17 10*6/uL 4.35-5.85 Venous blood hemoglobin measurement (mass/volume) 15.8 g/dL 13.3-17.7 Blood hematocrit (volume fraction) 45 % 40-54 Automated erythrocyte mean corpuscular volume 87 [foz_us] 80-99 Automated erythrocyte mean corpuscular hemoglobin (mass per erythrocyte) 31 pg 25-34 Automated erythrocyte mean corpuscular hemoglobin concentration measurement ( mass/volume) 35 g/dL 32-36 Automated erythrocyte distribution width ratio 13.1 % 10.0-14.5 Automated blood platelet count (count/volume) 179 10*3/uL 130-400 Automated blood platelet mean volume measurement 10.7 [foz_us] 7.4-10.4 PT panel in platelet poor plasma by coagulation assay - 08/29/16 07:32 Prothrombin time (PT) in platelet poor plasma by coagulation assay 12.6 s 12.2-14.7 INR in platelet poor plasma or blood by coagulation assay 1.0 0.8-1.4 Activated partial thromboplastin time (aPTT) in platelet poor plasma bycoagulation assay - 08/29/16 07:32 Activated partial thromboplastin time (aPTT) in platelet poor plasma bycoagulation assay 30 s 24-35 Comprehensive metabolic panel - 08/29/16 07:32 Serum or plasma sodium measurement (moles/volume) 135 mmol/L 135-145 Serum or plasma potassium measurement (moles/volume) 4.0 mmol/L 3.6-5.0 Serum or plasma chloride measurement (moles/volume) 97 mmol/L 98-107 Carbon dioxide 27 mmol/L 21-32 Serum or plasma anion gap determination (moles/volume) 11 mmol/L 5-14 Serum or plasma urea nitrogen measurement (mass/volume) 16 mg/dL 7-18 Serum or plasma creatinine measurement (mass/volume) 1.12 mg/dL 0.60-1.30 Serum or plasma urea nitrogen/creatinine mass ratio 14 NRG Serum or plasma creatinine measurement with calculation of estimated glomerular filtration rate > NRG Serum or plasma glucose measurement (mass/volume) 106 mg/dL 70-105 Serum or plasma calcium measurement (mass/volume) 9.2 mg/dL 8.5-10.1 Serum or plasma total bilirubin measurement (mass/volume) 0.5 mg/dL 0.1-1.0 Serum or plasma alkaline phosphatase measurement (enzymatic activity/volume) 86 U/L 40-136 Serum or plasma aspartate aminotransferase measurement (enzymatic activity/ volume) 46 U/L 5-34 Serum or plasma alanine aminotransferase measurement (enzymatic activity/volume ) 23 U/L 0-55 Serum or plasma protein measurement (mass/volume) 7.3 g/dL 6.4-8.2 Serum or plasma albumin measurement (mass/volume) 4.4 g/dL 3.2-4.5 Lipid 1996 panel - 08/29/16 07:32 Serum or plasma triglyceride measurement (mass/volume) 221 mg/dL <150 Serum or plasma cholesterol measurement (mass/volume) 174 mg/dL < 200 Serum or plasma cholesterol in HDL measurement (mass/volume) 34 mg/ dL 40-60 Cholesterol in LDL [mass/volume] in serum or plasma by direct assay 107 mg/dL 1-129 Serum or plasma cholesterol in VLDL measurement (mass/volume) 44 mg/ dL 5-40 Methicillin resistant Staphylococcus aureus (MRSA) screening culture - 07:32 Methicillin resistant Staphylococcus aureus (MRSA) screening culture NEG [facility] Complete blood count (CBC) with automated white blood cell (WBC) differential - 09/09/16 00:43 Blood leukocytes automated count (number/volume) 12.9 10*3/uL 4.3-11.0 Blood erythrocytes automated count (number/volume) 5.13 10*6/uL 4.35-5.85 Venous blood hemoglobin measurement (mass/volume) 15.5 g/dL 13.3-17.7 Blood hematocrit (volume fraction) 45 % 40-54 Automated erythrocyte mean corpuscular volume 88 [foz_us] 80-99 Automated erythrocyte mean corpuscular hemoglobin (mass per erythrocyte) 30 pg 25-34 Automated erythrocyte mean corpuscular hemoglobin concentration measurement ( mass/volume) 35 g/dL 32-36 Automated erythrocyte distribution width ratio 13.0 % 10.0-14.5 Automated blood platelet count (count/volume) 207 10*3/uL 130-400 Automated blood platelet mean volume measurement 10.7 [foz_us] 7.4-10.4 Automated blood neutrophils/100 leukocytes 68 % 42-75 Automated blood lymphocytes/100 leukocytes 18 % 12-44 Blood monocytes/100 leukocytes 11 % 0-12 Automated blood eosinophils/100 leukocytes 3 % 0-10 Automated blood basophils/100 leukocytes 0 % 0-10 Blood neutrophils automated count (number/volume) 8.8 10*3 1.8-7.8 Blood lymphocytes automated count (number/volume) 2.3 10*3 1.0-4.0 Blood monocytes automated count (number/volume) 1.4 10*3 0.0-1.0 Automated eosinophil count 0.3 10*3/uL 0.0-0.3 Automated blood basophil count (count/volume) 0.0 10*3/uL 0.0-0.1 PT panel in platelet poor plasma by coagulation assay - 09/09/16 00:43 Prothrombin time (PT) in platelet poor plasma by coagulation assay 13.1 s 12.2-14.7 INR in platelet poor plasma or blood by coagulation assay 1.0 0.8-1.4 Activated partial thromboplastin time (aPTT) in platelet poor plasma bycoagulation assay - 09/09/16 00:43 Activated partial thromboplastin time (aPTT) in platelet poor plasma bycoagulation assay 33 s 24-35 Comprehensive metabolic panel - 09/09/16 00:43 Serum or plasma sodium measurement (moles/volume) 134 mmol/L 135-145 Serum or plasma potassium measurement (moles/volume) 4.1 mmol/L 3.6-5.0 Serum or plasma chloride measurement (moles/volume) 95 mmol/L 98-107 Carbon dioxide 27 mmol/L 21-32 Serum or plasma anion gap determination (moles/volume) 12 mmol/L 5-14 Serum or plasma urea nitrogen measurement (mass/volume) 12 mg/dL 7-18 Serum or plasma creatinine measurement (mass/volume) 1.14 mg/dL 0.60-1.30 Serum or plasma urea nitrogen/creatinine mass ratio 11 NRG Serum or plasma creatinine measurement with calculation of estimated glomerular filtration rate > NRG Serum or plasma glucose measurement (mass/volume) 109 mg/dL 70-105 Serum or plasma calcium measurement (mass/volume) 9.6 mg/dL 8.5-10.1 Serum or plasma total bilirubin measurement (mass/volume) 1.2 mg/dL 0.1-1.0 Serum or plasma alkaline phosphatase measurement (enzymatic activity/volume) 101 U/L 40-136 Serum or plasma aspartate aminotransferase measurement (enzymatic activity/ volume) 43 U/L 5-34 Serum or plasma alanine aminotransferase measurement (enzymatic activity/volume ) 20 U/L 0-55 Serum or plasma protein measurement (mass/volume) 7.6 g/dL 6.4-8.2 Serum or plasma albumin measurement (mass/volume) 4.4 g/dL 3.2-4.5 Magnesium - 09/09/16 00:43 Magnesium 2.1 mg/dL 1.8-2.4 Serum or plasma creatine kinase measurement (enzymatic activity/volume) - 09/09 00:43 Serum or plasma creatine kinase measurement (enzymatic activity/volume) 169 U/L 30-200 Serum or plasma creatine kinase MB measurement (enzymatic activity/volume) - 00:43 Serum or plasma creatine kinase MB measurement (enzymatic activity/volume) 4.6 ng/mL <6.6 Serum or plasma troponin i.cardiac measurement (mass/volume) - 09/09/16 00:43 Serum or plasma troponin i.cardiac measurement (mass/volume) < ng/ mL <0.30 Serum or plasma amylase measurement (enzymatic activity/volume) - 09/09/16 00: 43 Serum or plasma amylase measurement (enzymatic activity/volume) 106 U/L 25-125 Lipase - 09/09/16 00:43 Lipase 236 U/L 8-78 Serum or plasma lithium measurement (moles/volume) - 09/09/16 00:43 BNP level 32.8 pg/mL <100.0 Complete blood count (CBC) with automated white blood cell (WBC) differential - 09/09/16 03:56 Blood leukocytes automated count (number/volume) 11.7 10*3/uL 4.3-11.0 Blood erythrocytes automated count (number/volume) 4.85 10*6/uL 4.35-5.85 Venous blood hemoglobin measurement (mass/volume) 14.8 g/dL 13.3-17.7 Blood hematocrit (volume fraction) 42 % 40-54 Automated erythrocyte mean corpuscular volume 87 [foz_us] 80-99 Automated erythrocyte mean corpuscular hemoglobin (mass per erythrocyte) 31 pg 25-34 Automated erythrocyte mean corpuscular hemoglobin concentration measurement ( mass/volume) 35 g/dL 32-36 Automated erythrocyte distribution width ratio 12.9 % 10.0-14.5 Automated blood platelet count (count/volume) 187 10*3/uL 130-400 Automated blood platelet mean volume measurement 10.4 [foz_us] 7.4-10.4 Automated blood neutrophils/100 leukocytes 75 % 42-75 Automated blood lymphocytes/100 leukocytes 15 % 12-44 Blood monocytes/100 leukocytes 9 % 0-12 Automated blood eosinophils/100 leukocytes 2 % 0-10 Automated blood basophils/100 leukocytes 0 % 0-10 Blood neutrophils automated count (number/volume) 8.8 10*3 1.8-7.8 Blood lymphocytes automated count (number/volume) 1.7 10*3 1.0-4.0 Blood monocytes automated count (number/volume) 1.0 10*3 0.0-1.0 Automated eosinophil count 0.2 10*3/uL 0.0-0.3 Automated blood basophil count (count/volume) 0.0 10*3/uL 0.0-0.1 Comprehensive metabolic panel - 09/09/16 03:56 Serum or plasma sodium measurement (moles/volume) 134 mmol/L 135-145 Serum or plasma potassium measurement (moles/volume) 4.7 mmol/L 3.6-5.0 Serum or plasma chloride measurement (moles/volume) 96 mmol/L 98-107 Carbon dioxide 25 mmol/L 21-32 Serum or plasma anion gap determination (moles/volume) 13 mmol/L 5-14 Serum or plasma urea nitrogen measurement (mass/volume) 15 mg/dL 7-18 Serum or plasma creatinine measurement (mass/volume) 1.29 mg/dL 0.60-1.30 Serum or plasma urea nitrogen/creatinine mass ratio 12 NRG Serum or plasma creatinine measurement with calculation of estimated glomerular filtration rate 57 NRG Serum or plasma glucose measurement (mass/volume) 114 mg/dL 70-105 Serum or plasma calcium measurement (mass/volume) 9.3 mg/dL 8.5-10.1 Serum or plasma total bilirubin measurement (mass/volume) 1.0 mg/dL 0.1-1.0 Serum or plasma alkaline phosphatase measurement (enzymatic activity/volume) 91 U/L 40-136 Serum or plasma aspartate aminotransferase measurement (enzymatic activity/ volume) 39 U/L 5-34 Serum or plasma alanine aminotransferase measurement (enzymatic activity/volume ) 19 U/L 0-55 Serum or plasma protein measurement (mass/volume) 7.1 g/dL 6.4-8.2 Serum or plasma albumin measurement (mass/volume) 4.1 g/dL 3.2-4.5 Myoglobin, serum - 09/09/16 03:56 Myoglobin, serum 77.8 ng/mL 10.0-92.0 Lipid 1996 panel - 09/09/16 03:56 Serum or plasma triglyceride measurement (mass/volume) 162 mg/dL <150 Serum or plasma cholesterol measurement (mass/volume) 179 mg/dL < 200 Serum or plasma cholesterol in HDL measurement (mass/volume) 34 mg/ dL 40-60 Cholesterol in LDL [mass/volume] in serum or plasma by direct assay 115 mg/dL 1-129 Serum or plasma cholesterol in VLDL measurement (mass/volume) 32 mg/ dL 5-40 Serum or plasma troponin i.cardiac measurement (mass/volume) - 09/09/16 06:45 Serum or plasma troponin i.cardiac measurement (mass/volume) < ng/ mL <0.30 Automated blood complete blood count (hemogram) panel - 09/12/16 08:00 Blood leukocytes automated count (number/volume) 7.5 10*3/uL 4.3-11.0 Blood erythrocytes automated count (number/volume) 4.68 10*6/uL 4.35-5.85 Venous blood hemoglobin measurement (mass/volume) 14.2 g/dL 13.3-17.7 Blood hematocrit (volume fraction) 41 % 40-54 Automated erythrocyte mean corpuscular volume 87 [foz_us] 80-99 Automated erythrocyte mean corpuscular hemoglobin (mass per erythrocyte) 30 pg 25-34 Automated erythrocyte mean corpuscular hemoglobin concentration measurement ( mass/volume) 35 g/dL 32-36 Automated erythrocyte distribution width ratio 12.8 % 10.0-14.5 Automated blood platelet count (count/volume) 221 10*3/uL 130-400 Automated blood platelet mean volume measurement 10.6 [foz_us] 7.4-10.4 PT panel in platelet poor plasma by coagulation assay - 09/12/16 08:00 Prothrombin time (PT) in platelet poor plasma by coagulation assay 11.6 s 12.2-14.7 INR in platelet poor plasma or blood by coagulation assay 0.9 0.8-1.4 Activated partial thromboplastin time (aPTT) in platelet poor plasma bycoagulation assay - 09/12/16 08:00 Activated partial thromboplastin time (aPTT) in platelet poor plasma bycoagulation assay 33 s 24-35 Comprehensive metabolic panel - 09/12/16 08:00 Serum or plasma sodium measurement (moles/volume) 136 mmol/L 135-145 Serum or plasma potassium measurement (moles/volume) 3.7 mmol/L 3.6-5.0 Serum or plasma chloride measurement (moles/volume) 102 mmol/L 98-107 Carbon dioxide 23 mmol/L 21-32 Serum or plasma anion gap determination (moles/volume) 11 mmol/L 5-14 Serum or plasma urea nitrogen measurement (mass/volume) 14 mg/dL 7-18 Serum or plasma creatinine measurement (mass/volume) 0.97 mg/dL 0.60-1.30 Serum or plasma urea nitrogen/creatinine mass ratio 14 NRG Serum or plasma creatinine measurement with calculation of estimated glomerular filtration rate > NRG Serum or plasma glucose measurement (mass/volume) 114 mg/dL 70-105 Serum or plasma calcium measurement (mass/volume) 9.0 mg/dL 8.5-10.1 Serum or plasma total bilirubin measurement (mass/volume) 0.4 mg/dL 0.1-1.0 Serum or plasma alkaline phosphatase measurement (enzymatic activity/volume) 82 U/L 40-136 Serum or plasma aspartate aminotransferase measurement (enzymatic activity/ volume) 44 U/L 5-34 Serum or plasma alanine aminotransferase measurement (enzymatic activity/volume ) 22 U/L 0-55 Serum or plasma protein measurement (mass/volume) 6.9 g/dL 6.4-8.2 Serum or plasma albumin measurement (mass/volume) 4.0 g/dL 3.2-4.5 Lipid 1996 panel - 09/12/16 08:00 Serum or plasma triglyceride measurement (mass/volume) 168 mg/dL <150 Serum or plasma cholesterol measurement (mass/volume) 165 mg/dL < 200 Serum or plasma cholesterol in HDL measurement (mass/volume) 27 mg/ dL 40-60 Cholesterol in LDL [mass/volume] in serum or plasma by direct assay 110 mg/dL 1-129 Serum or plasma cholesterol in VLDL measurement (mass/volume) 34 mg/ dL 5-40 Methicillin resistant Staphylococcus aureus (MRSA) screening culture - 08:00 Methicillin resistant Staphylococcus aureus (MRSA) screening culture NEG NRG Activated partial thromboplastin time (aPTT) in platelet poor plasma bycoagulation assay - 09/12/16 12:40 Activated partial thromboplastin time (aPTT) in platelet poor plasma bycoagulation assay > s 24-35 Activated partial thromboplastin time (aPTT) in platelet poor plasma bycoagulation assay - 09/12/16 14:16 Activated partial thromboplastin time (aPTT) in platelet poor plasma bycoagulation assay 56 s 24-35 Automated blood complete blood count (hemogram) panel - 07/10/17 09:30 Blood leukocytes automated count (number/volume) 7.9 10*3/uL 4.3-11.0 Blood erythrocytes automated count (number/volume) 4.94 10*6/uL 4.35-5.85 Venous blood hemoglobin measurement (mass/volume) 15.2 g/dL 13.3-17.7 Blood hematocrit (volume fraction) 44 % 40-54 Automated erythrocyte mean corpuscular volume 90 [foz_us] 80-99 Automated erythrocyte mean corpuscular hemoglobin (mass per erythrocyte) 31 pg 25-34 Automated erythrocyte mean corpuscular hemoglobin concentration measurement ( mass/volume) 34 g/dL 32-36 Automated erythrocyte distribution width ratio 13.7 % 10.0-14.5 Automated blood platelet count (count/volume) 137 10*3/uL 130-400 Automated blood platelet mean volume measurement 11.6 [foz_us] 7.4-10.4 PT panel in platelet poor plasma by coagulation assay - 07/10/17 09:30 Prothrombin time (PT) in platelet poor plasma by coagulation assay 11.9 s 12.2-14.7 INR in platelet poor plasma or blood by coagulation assay 0.9 0.8-1.4 Activated partial thromboplastin time (aPTT) in platelet poor plasma bycoagulation assay - 07/10/17 09:30 Activated partial thromboplastin time (aPTT) in platelet poor plasma bycoagulation assay 29 s 24-35 Comprehensive metabolic panel - 07/10/17 09:30 Serum or plasma sodium measurement (moles/volume) 138 mmol/L 135-145 Serum or plasma potassium measurement (moles/volume) 3.7 mmol/L 3.6-5.0 Serum or plasma chloride measurement (moles/volume) 102 mmol/L 98-107 Carbon dioxide 26 mmol/L 21-32 Serum or plasma anion gap determination (moles/volume) 10 mmol/L 5-14 Serum or plasma urea nitrogen measurement (mass/volume) 18 mg/dL 7-18 Serum or plasma creatinine measurement (mass/volume) 1.07 mg/dL 0.60-1.30 Serum or plasma urea nitrogen/creatinine mass ratio 17 NRG Serum or plasma creatinine measurement with calculation of estimated glomerular filtration rate > NRG Serum or plasma glucose measurement (mass/volume) 104 mg/dL 70-105 Serum or plasma calcium measurement (mass/volume) 9.4 mg/dL 8.5-10.1 Serum or plasma total bilirubin measurement (mass/volume) 0.7 mg/dL 0.1-1.0 Serum or plasma alkaline phosphatase measurement (enzymatic activity/volume) 88 U/L 40-136 Serum or plasma aspartate aminotransferase measurement (enzymatic activity/ volume) 42 U/L 5-34 Serum or plasma alanine aminotransferase measurement (enzymatic activity/volume ) 20 U/L 0-55 Serum or plasma protein measurement (mass/volume) 7.6 g/dL 6.4-8.2 Serum or plasma albumin measurement (mass/volume) 4.3 g/dL 3.2-4.5 Lipid 1996 panel - 07/10/17 09:30 Serum or plasma triglyceride measurement (mass/volume) 150 mg/dL <150 Serum or plasma cholesterol measurement (mass/volume) 166 mg/dL < 200 Serum or plasma cholesterol in HDL measurement (mass/volume) 35 mg/ dL 40-60 Cholesterol in LDL [mass/volume] in serum or plasma by direct assay 109 mg/dL 1-129 Serum or plasma cholesterol in VLDL measurement (mass/volume) 30 mg/ dL 5-40 Methicillin resistant Staphylococcus aureus (MRSA) screening culture - 09:30 Methicillin resistant Staphylococcus aureus (MRSA) screening culture NEG [facility] LIPID PANEL - 11/29/17 09:14 CHOLESTEROL, TOTAL 150 mg/dL <200 HDL CHOLESTEROL 37 mg/dL >40 TRIGLYCERIDES 147 mg/dL <150 LDL-CHOLESTEROL 89 mg/dL (calc) NRG CHOL/HDLC RATIO 4.1 (calc) <5.0 NON HDL CHOLESTEROL 113 mg/dL (calc) <130 CMP - 11/29/17 09:14 GLUCOSE 97 mg/dL 65-99 UREA NITROGEN (BUN) 16 mg/dL 7-25 CREATININE 1.06 mg/dL 0.70-1.25 eGFR NON-AFR. MALIAN 75 mL/min/1.73m2 > OR=60 eGFR 87 mL/min/1.73m2 > OR=60 BUN/CREATININE RATIO NOT APPLICABLE (calc) 6-22 SODIUM 139 mmol/L 135-146 POTASSIUM 4.0 mmol/L 3.5-5.3 CHLORIDE 100 mmol/L 98-110 CARBON DIOXIDE 31 mmol/L 20-31 CALCIUM 9.1 mg/dL 8.6-10.3 PROTEIN, TOTAL 6.5 g/dL 6.1-8.1 ALBUMIN 4.4 g/dL 3.6-5.1 GLOBULIN 2.1 g/dL (calc) 1.9-3.7 ALBUMIN/GLOBULIN RATIO 2.1 (calc) 1.0-2.5 BILIRUBIN, TOTAL 0.6 mg/dL 0.2-1.2 ALKALINE PHOSPHATASE 52 U/L 40-115 AST 43 U/L 10-35 ALT 19 U/L 9-46 Encounters ACCT No. Visit Date/Time Discharge Status Pt. Type Provider Facility Loc./Unit Complaint [id number] 01/18/2018 12:31:00 01/18/2018 23:59:59 CLS Outpatient SUSANA KIEL L [employer]ER [facility] RAD I73.9 PAD [id number] 11/02/2017 10:00:00 11/02/2017 23:59:59 CLS Preadmit BAIMA KIEL L [employer] [facility] CARD PAD [id number] 10/16/2017 09:00:00 10/16/2017 23:59:59 CLS Preadmit BAIMA KIEL L [employer] [facility] CATH BILAT LEG DISCOMFORT [id number] 07/27/2017 13:00:00 07/27/2017 23:59:59 CLS Preadmit BAIMA KIEL L [employer] [facility] RAD I77.9 [id number] 07/27/2017 12:00:00 07/27/2017 23:59:59 CLS Preadmit BAIDARLINE BESSHER L [employer] RO[employer]ER [facility] CARD I25.10 [id number] 07/24/2017 10:00:00 07/24/2017 23:59:59 CLS Preadmit BAIDARLINE BESSHER L [employer] [facility] CATH CLAUDICATION [id number] 07/10/2017 08:27:00 07/10/2017 23:59:59 CLS Outpatient BAIMARIA ALEJANDRA KIEL L [employer] [facility] CATH BILATERAL LEG DISCOMFORT [id number] 03/06/2017 08:48:00 03/06/2017 12:27:00 DIS Outpatient ROSA MARIA MOLINA DO [facility] ENDO HISTORY OF POLYPS [id number] 03/05/2017 10:30:00 03/05/2017 11:21:00 DIS Outpatient ROSA MARIA MOLINA DO [facility] PREOP HISTORY OF POLYPS [id number] 09/12/2016 07:36:00 09/12/2016 20:05:00 DIS Outpatient TERRA MCADAMS FACC, COBY ZUNIGA CCDS [facility] CATH PVD,BILAT LEG DISCOMFORT [id number] 09/09/2016 02:20:00 09/09/2016 13:55:00 DIS Inpatient ANIL MCADAMS, TIMOTEO Gill [facility] ICU CHEST PAIN;ASVD [id number] 08/30/2016 13:28:00 08/30/2016 23:59:59 CLS Outpatient KIEL MEZA L [employer] [facility] CARD DYSPENA ON EXERTION , CHEST PAIN, HYPERTENSION [id number] 08/29/2016 07:03:00 08/29/2016 13:50:00 DIS Outpatient TERRA MCADAMS FACC, COBY ZUNIGA CCDS [facility] CATH ANGINA, BILAT LEG DISCOMFORT/PAIN,SOB,CAD,FATIGUE [id number] 06/13/2016 10:36:00 06/13/2016 16:55:00 DIS Outpatient ROSA MARIA MOLINA DO [facility] SDC SCREENING/GERD [id number] 06/12/2016 14:55:00 06/12/2016 18:07:00 DIS Emergency MASHPEE MD, YANET D [facility] ER LEFT SIDE ABD PAIN [id number] 06/12/2016 09:15:00 06/12/2016 09:27:00 DIS Outpatient ROSA MARIA MOLINA DO [facility] PREOP SCREENING/GERD [id number] 06/16/2014 08:34:00 06/17/2014 12:50:00 DIS Outpatient TERRA MCADAMS FACC, COBY ZUNIGA CCDS [facility] CATH CP,CAD, DYSPNEA [id number] 11/19/2013 09:37:00 11/19/2013 23:59:59 CLS Outpatient COBY ELLISON MD, FACC, FACP CCDS [facility] CARD CAD,CARDIAC MURMUR [id number] 09/01/2013 11:39:00 09/01/2013 23:59:59 CLS Outpatient TIFFANIE CAMPOS APRN [facility] RAD CORONARY ARTERY DISEASE [id number] 02/19/2018 08:00:00 PEN Preadmit COBY ELLISON MD, FACC, FACP CCDS [facility] CATH PAD,HTN,CLAUDICATION OF BOTH LOWER EXTREMITIES [id number] 06/07/2016 15:34:00 Document Registration [id number] 12/01/2014 11:36:00 12/01/2014 23:59:59 CLS Outpatient TIFFANIE CAMPOS APRN [id number] 10/26/2014 07:55:00 10/26/2014 23:59:59 CLS Outpatient TIFFANIE CAMPOS APRN [id number] 10/20/2014 11:05:00 10/20/2014 23:59:59 CLS Outpatient TIFFANIE CAMPOS APRN [id number] 09/19/2014 09:43:00 09/19/2014 23:59:59 CLS Outpatient ALLA VALDIVIA APRN [id number] 2014 15:32:00 2014 23:59:59 CLS Outpatient AINSLEY HERNANDEZ DO [id number] 08/05/2014 10:10:00 08/05/2014 23:59:59 CLS Outpatient COBY ELLISON MD [id number] 06/22/2014 11:03:00 06/22/2014 23:59:59 CLS Outpatient TIFFANIE CAMPOS APRN [id number] 06/10/2014 09:19:00 06/10/2014 23:59:59 CLS Outpatient AINSLEY HERNANDEZ DO [id number] 02/05/2014 14:52:00 02/05/2014 23:59:59 CLS Outpatient AINSLEY HERNANDEZ DO [id number] 11/17/2013 08:40:00 11/17/2013 23:59:59 CLS Outpatient TIFFANIE CAMPOS APRN [id number] 11/06/2013 08:46:00 11/06/2013 23:59:59 CLS Outpatient AINSLEY HERNANDEZ DO [id number] 11/05/2013 10:45:00 11/05/2013 23:59:59 CLS Outpatient AINSLEY HERNANDEZ DO [id number] 08/18/2013 14:54:00 08/18/2013 23:59:59 CLS Outpatient AINSLEY HERNANDEZ DO [id number] 06/27/2013 13:49:00 06/27/2013 23:59:59 CLS Outpatient MIRELLA ORTIZ MD [id number] 01/14/2013 14:08:00 01/14/2013 23:59:59 CLS Outpatient MIRELLA ORTIZ MD [id number] 01/02/2013 10:38:00 01/02/2013 23:59:59 CLS Outpatient HEAVEN SOLOMON DDS [id number] 12/18/2012 11:23:00 12/18/2012 23:59:59 CLS Outpatient [id number] 12/12/2012 13:37:00 12/12/2012 23:59:59 CLS Outpatient [id number] 12/09/2012 08:26:00 12/09/2012 23:59:59 CLS Outpatient [id number] 12/06/2012 10:00:00 12/06/2012 23:59:59 CLS Outpatient [id number] 12/03/2012 15:19:00 12/03/2012 23:59:59 CLS Outpatient [id number] 04/22/2013 11:07:00 Document Registration [id number] 03/05/2013 07:13:00 Document Registration [id number] 02/08/2018 09:40:00 02/08/2018 23:59:59 CLS Outpatient [facility] [id number] 11/29/2017 09:00:00 Document Registration
[2018-02-19] MEDS ORDERED: NS IV 1000 ML 1,000 ML IV SCH ×2 (07:00→08:57)
[2018-02-19 07:10] LABS: HEMOGLOBIN 16.1 G/DL (13.3-17.7); MEAN PLATELET VOLUME 11.2 FL (7.4-10.4); RED BLOOD COUNT 5.16 10^6/uL (4.35-5.85); RED CELL DISTRIBUTION WIDTH 12.9 % (10.0-14.5)
[2018-02-19 07:23] LABS: INR 0.9 (0.8-1.4)
[2018-02-19] MEDS ORDERED: METO50TA15 PO (07:29)
[2018-02-19] MEDS ORDERED: RT-ALBUINH IH (07:29)
[2018-02-19] MEDS ORDERED: GLYC10.7 IH (07:29)
[2018-02-19] MEDS ORDERED: CELE200C PO (07:29)
[2018-02-19] MEDS ORDERED: OMEG-160 PO (07:29)
[2018-02-19] MEDS ORDERED: ROSU20TA PO (07:29)
[2018-02-19 07:31] LABS: ALANINE AMINOTRANSFERASE 24 U/L (0-55); ALBUMIN 4.4 GM/DL (3.2-4.5); ALKALINE PHOSPHATASE 57 U/L (40-136); BILIRUBIN,TOTAL 0.5 MG/DL (0.1-1.0); BUN/CREATININE RATIO 23; CALCIUM 9.4 MG/DL (8.5-10.1); CARBON DIOXIDE 28 MMOL/L (21-32); CHLORIDE 105 MMOL/L (98-107); CHOLESTEROL 156 MG/DL (< 200); CREATININE SERUM 1.17 MG/DL (0.60-1.30); GFR ESTIMATED > 60; GLUCOSE 108 MG/DL (70-105); HDL CHOLESTEROL 34 MG/DL (40-60); POTASSIUM 4.3 MMOL/L (3.6-5.0); SODIUM 140 MMOL/L (135-145); TOTAL PROTEIN 7.2 GM/DL (6.4-8.2); TRIGLYCERIDES 251 MG/DL (<150); VLDL CHOLESTEROL 50 MG/DL (5-40)
[2018-02-19] MEDS ORDERED: HEParin 1000 UNIT/ML (10ML VIAL) FOR BOLUS ONE (07:32)
[2018-02-19] MEDS ORDERED: MIDAZOLAM 5 MG/5 ML (VERSED) VIAL ONE (07:35)
[2018-02-19] MEDS ORDERED: fentaNYL INJECTION 100 MCG/2 ML AMP ONE (07:35)
[2018-02-19] MEDS ORDERED: diphenhydrAMINE 50 MG/ML INJ (BENADRYL) ONE (07:35)
--- NOTE | 2018-02-19 08:57 | Cardiac Procedure Note-CS/ASA ---
Pre-Procedure Note Pre-Op Procedure Note H&P Reviewed The H&P was reviewed, patient examined and no changes noted. Date H&P Reviewed: February 19, 2018 Time H&P Reviewed: 07:50 Conscious Sedation Pre-Proced Time Reviewed: 07:50 ASA Class: 3 Airway Mallampati Classification: (twenty-nine palms appropriate class) I. II. III, IV Lungs Heart ASA score ASA 1: a normal healthy patient ASA 2: a patient with a mild systemic disease (mid diabetes, controlled hypertension, obesity ASA 3: a patient with a severe systemic disease that limits activity (angina , COPD, prior Myocardial infarction) ASA 4: a patient with an incapacitating disease that is a constant threat to life (CHF, renal failure) ASA 5: a moribund patient not expected to survive 24 hrs. (ruptured aneurysm) ASA 6: a declared brain patient whose organs are being harvested. For emergent operations, add the letter E after the classification Grade 2 Sedation Plan: Analgesia, Amnesia, Plan communicated to team members, Discussed options with patient/fam, Discussed risks with patient/fam Note The patient is an appropriate candidate to undergo the planned procedure, sedation, and anesthesia. The patient immediately re-assessed prior to indication. COBY ELLISON MD FACP FAC CCDS February 19, 2018 08:57
[2018-02-19] MEDS ORDERED: PATIENT MAY USE OWN MEDS, ALL PO SCH (09:00)
--- NOTE | 2018-02-19 09:01 | Discharge Inst-Post CATH ---
Discharge Inst-CATH Post Cardiac Cath D/C Inst Follow Up/Plan F/u with Dr Power in 2 weeks CARDIAC CATH DISCHARGE INSTRUCTIONS *Hold Metformin for 48 hours post heart cath. ACTIVITY * Go Home directly and rest. * Limit activity of the leg (or wrist if it was used) for 7 days including aerobics, swimming, jogging, bicycling, etc. * Restrict stair-climbing for 7 days if possible, if not, climb up with your non -cath leg, then bring together on the same step. * Avoid lifting, pushing, pulling or excessive movement of the affected extremity for 7 days. * Customary sexual activity may be resumed after 2 days-use caution not to use a position that strains or causes pain to the affected extremity. * No driving for 24 hours. * NO SMOKING. * Avoid straining for bowel movements for 7 days. * Gentle walking on level ground is allowed. * Returning to work will depend on the type of procedure and the results. Your doctor will discuss this with you. CALL YOUR DOCTOR FOR ANY OF THE FOLLOWING: *If bleeding from the puncture site occurs- Apply gentle pressure to site with clean cloth and call your doctor or EMS. * If a knot or lump forms under the skin, increases in size, or causes pain. * If bruising appears to be worsening or moving further down your leg instead of disappearing. * Temperature above 101 F. CARE OF YOUR GROIN INCISION; * Bruising or purple discoloration of the skin near the puncture site is common. * You may shower only, no bathtub bathing for 5 days. Be careful to avoid slipping as your leg may feel stiff. * If a closure device was used on your femoral artery, please see the attached guide regarding care of the device and your leg. * REMOVE the dressing from your groin the next day after your procedure in the shower. CARE OF YOUR WRIST INCISION; * Bruising or purple discoloration of the skin near the puncture site is common. * You may shower. * DO NOT submerge wrist. * Remove dressing in 24 hours. COBY POWER MD [facility] CCDS February 19, 2018 09:01
--- NOTE | 2018-02-19 09:03 | Discharge Inst-Cardiology ---
Discharge Inst-Cardiac Discharge Medications Continued Medications: Albuterol Sulfate (Proair Hfa) 1 Puff Puff 2 PUFF IH BID, PUFF 1 PUFF = 90 MCG Amlodipine Besylate (Norvasc) 5 Mg Tablet 5 MG PO DAILY, TAB Aspirin (Aspirin) 81 Mg Tab.chew 81 MG PO DAILY, TAB Celecoxib (Celebrex) 200 Mg Capsule 200 MG PO DAILY, CAP Fluticasone Propionate (Flovent Hfa 110 mcg) 1 Ea Aero 2 PUFF IH BID, EA Gabapentin (Gabapentin) 600 Mg Tablet 600 MG PO DAILY, TAB Glycopyrrolate/Formoterol Fum (Bevespi Aerosphere Inhaler) 10.7 Gm Hfa.aer.ad 2 PUFF IH BID, GM Lisinopril (Prinivil) 40 Mg Tablet 40 MG PO DAILY, TAB Metoprolol Tartrate (Metoprolol Tartrate) 50 Mg Tablet 50 MG PO BID, TAB [place]-3/Dha/Epa/Fish Oil (Fish Oil 1,000 mg Softgel) 1 Each Capsule 1000 MG PO DAILY, CAP Pantoprazole Sodium (Protonix) 40 Mg Tablet.dr 40 MG PO DAILY, TAB Rosuvastatin Calcium (Crestor) 20 Mg Tablet 20 MG PO DAILY, TAB COBY ELLISON MD FACP FAC CCDS February 19, 2018 09:03
--- NOTE | 2018-02-19 12:39 | CARDIAC CATHETERIZATION ---
DATE OF SERVICE: 02/19/2018 PERIPHERAL ANGIOGRAPHY REPORT The patient is a 62-year-old man who is known to have peripheral arterial disease and who has previously had percutaneous intervention to the right iliac artery. He has had recurrence of leg claudication, more on the left side and a repeat angiography was performed today to evaluate his leg claudication. Informed consent was obtained. DESCRIPTION OF PROCEDURE: He was brought to the cardiac catheterization laboratory in a fasting state. Right groin was prepared and draped in usual sterile fashion. 1% lidocaine for local anesthesia. Modified Seldinger technique was used to advance a 5-Serbian sheath in the right femoral artery. A 5-Serbian pigtail catheter was used for abdominal aortic angiography with the catheter placed at the level of L1. The pigtail catheter was then pulled back to the level of the aortoiliac bifurcation and placed just above the bifurcation. Bilateral angiography was performed with runoff down to the level of the feet. We then carried out selective angiography of the contralateral common iliac artery with a crossover catheter placed at the ostium of the left common iliac artery. The catheter was then removed and angiography of the right femoral artery was carried out through the sheath. Mynx was used to achieve hemostasis. He tolerated the procedure well. ABDOMINAL AORTIC ANGIOGRAPHY: Abdominal aortic angiography indicates an abdominal aortic atherosclerosis with some ectasia, but no definitive aneurysm formation. The mesenteric vessels, to the extent visualized, do not exhibit any significant stenosis. The left renal artery has approximately 60% ostial and proximal stenosis. The aortoiliac bifurcation shows atherosclerotic disease, but no significant stenosis. BILATERAL LEG ARTERY ANGIOGRAPHY: Bilateral leg artery angiography indicates patent stents in the proximal right iliac artery and in the distal right iliac artery extending into the right external iliac artery. The proximal stent is known to be Omnilink Elite 8 x 29. The distal stent is known to be Omnilink Elite 7 x 59. The iliac arteries on both sides exhibit vtqg-ug-iiaosval stenoses (up to 30% to 40%) The common iliac arteries on both sides do not exhibit significant obstructive disease. The internal iliac arteries on both sides do have moderately severe disease. The common iliac bifurcation is intact on both sides and the superficial femoral and deep femoral arteries on both sides are preserved and without significant stenoses. The popliteal arteries on both sides are intact and exhibit trifurcation with good distal runoff. On the left side, there appears to be 70% to 80% distal stenosis in the dorsalis pedis. SELECTIVE ANGIOGRAPHY OF THE LEFT COMMON ILIAC: We performed selective angiography of the left common iliac because, on the runoff, there appeared to be some haziness in the proximal portion of the left common iliac. On selective angiography, however, there does not appear to be significant stenosis or haziness in the left common iliac. There is stenosis of up to approximately 30%. CONCLUSIONS: 1. Hjty-fg-wvypgwmo atherosclerotic disease of the abdominal aorta with ectasia, but no significant aneurysm formation. 2. A 60% to 70% ostial and proximal stenosis of the left renal artery. 3. Patent stents in the proximal right common iliac artery and in the distal right common iliac artery extending into the right external iliac artery. 4. Drcj-qp-bmguuujh disease of the iliac and femoral arteries on both sides without any significant obstructive disease. 5. Three-vessel runoff in both legs. The left dorsalis pedis appears to have approximately 70% distal stenosis. Job ID: [id number] DocumentID: [id number] Dictated Date: 02/19/2018 08:37:34 Dental Prosthetist Date: 02/19/2018 12:38:22 Dictated By: COBY ELLISON MD, MA, FACP, FACC,
== END 2018-02-19 11:40 | disposition home or self-care (01) ==
LOC: CATH 06:44 → SURG 08:52 → CATH 11:40
PROVIDERS: ATTEND Internal Medicine Cardiovascular Disease
DX: I70.213 Atherosclerosis of native arteries of extremities with intermittent claudication, bilateral legs (principal); I70.0 Atherosclerosis of aorta; I70.1 Atherosclerosis of renal artery; I10 Essential (primary) hypertension; I25.10 Atherosclerotic heart disease of native coronary artery without angina pectoris; I65.23 Occlusion and stenosis of bilateral carotid arteries; E78.2 Mixed hyperlipidemia; I34.0 Nonrheumatic mitral (valve) insufficiency; G47.33 Obstructive sleep apnea (adult) (pediatric); Z95.820 Peripheral vascular angioplasty status with implants and grafts; Z79.82 Long term (current) use of aspirin; Z79.899 Other long term (current) drug therapy
CPT/HCPCS: 36415; 75630; 75716; 80053; 80061; 85027; 85610; 85730; 87081; 93005

== ENCOUNTER → 2018-03-29 | Outpatient (CLI) | payer MEDICAID ==
[~2018-03-29] MED LIST changes: +CELE200C PO; +GLYC10.7 IH; -LIDOCAINE 1% INJ 20 ML 20 ML VIAL ONE; +METO50TA15 PO; -NS IV 1000 ML 3,000 ML ONE; +OMEG-160 PO; +ROSU20TA PO; +RT-ALBUINH IH
== END ==
LOC: CARD 09:35
PROVIDERS: ATTEND Internal Medicine Cardiovascular Disease
DX: I25.10 Atherosclerotic heart disease of native coronary artery without angina pectoris (principal); I08.1 Rheumatic disorders of both mitral and tricuspid valves; I73.9 Peripheral vascular disease, unspecified; R06.02 Shortness of breath; Z72.0 Tobacco use
CPT/HCPCS: 93306

== ENCOUNTER 2018-04-23 09:42 | Day surgery (SDC) | payer MEDICAID ==
[~2018-04-23] VITALS: Ht 157.5 cm; Wt 73.5 kg
[2018-04-23] VITALS (9 sets, daily range): BP systolic 119–152; BP diastolic 60–82
[2018-04-23] MEDS ORDERED: NS IV 1000 ML 1,000 ML ONE (09:54)
[2018-04-23] MEDS ORDERED: LIDOCAINE 2% VISCOUS 15 ML UDC ONE (09:54)
[2018-04-23] MEDS ORDERED: NS IV 1000 ML 1,000 ML IV SCH (09:58)
[2018-04-23 10:30] LABS: HEMOGLOBIN 15.2 G/DL (13.3-17.7); MEAN PLATELET VOLUME 11.5 FL (7.4-10.4); RED BLOOD COUNT 4.83 10^6/uL (4.35-5.85); RED CELL DISTRIBUTION WIDTH 12.7 % (10.0-14.5); WHITE BLOOD COUNT 6.4 10^3/uL (4.3-11.0)
[2018-04-23 10:47] LABS: PROTHROMBIN TIME PATIENT 12.6 SEC (12.2-14.7)
[2018-04-23 10:48] LABS: ALBUMIN 4.3 GM/DL (3.2-4.5); BILIRUBIN,TOTAL 0.5 MG/DL (0.1-1.0); CALCIUM 9.4 MG/DL (8.5-10.1); CREATININE SERUM 1.24 MG/DL (0.60-1.30); POTASSIUM 4.5 MMOL/L (3.6-5.0)
[2018-04-23] MEDS ORDERED: LISI40TA PO (10:48)
[2018-04-23] MEDS ORDERED: RT-ALBUINH IH (10:48)
[2018-04-23] MEDS ORDERED: FLT11013 IH (10:48)
[2018-04-23] MEDS ORDERED: ASPI-983 PO (10:48)
[2018-04-23] MEDS ORDERED: GLYC10.7 IH (10:48)
[2018-04-23] MEDS ORDERED: AMLO10TA2 PO (10:48)
[2018-04-23] MEDS ORDERED: MIDAZOLAM 5 MG/5 ML (VERSED) VIAL ONE (11:41)
[2018-04-23] MEDS ORDERED: fentaNYL INJECTION 100 MCG/2 ML AMP ONE (11:41)
--- NOTE | 2018-04-23 11:51 | Cardiac Procedure Note-CS/ASA ---
Pre-Procedure Note Pre-Op Procedure Note H&P Reviewed The H&P was reviewed, patient examined and no changes noted. Date H&P Reviewed: Apr 23, 2018 Time H&P Reviewed: 11:51 Conscious Sedation Pre-Proced Time Reviewed: 11:51 ASA Class: 3 Airway Mallampati Classification: ([place] appropriate class) I. II. III, IV Lungs Heart ASA score ASA 1: a normal healthy patient ASA 2: a patient with a mild systemic disease (mid diabetes, controlled hypertension, obesity ASA 3: a patient with a severe systemic disease that limits activity (angina , COPD, prior Myocardial infarction) ASA 4: a patient with an incapacitating disease that is a constant threat to life (CHF, renal failure) ASA 5: a moribund patient not expected to survive 24 hrs. (ruptured aneurysm) ASA 6: a declared brain patient whose organs are being harvested. For emergent operations, add the letter E after the classification Grade 2 Sedation Plan: Analgesia, Amnesia, Plan communicated to team members, Discussed options with patient/fam, Discussed risks with patient/fam Note The patient is an appropriate candidate to undergo the planned procedure, sedation, and anesthesia. The patient immediately re-assessed prior to indication. COBY ELLISON MD FACP FAC CCDS Apr 23, 2018 11:51
== END 2018-04-23 13:41 | disposition home or self-care (01) ==
LOC: CATH 09:42
PROVIDERS: ATTEND Internal Medicine Cardiovascular Disease
DX: I34.0 Nonrheumatic mitral (valve) insufficiency (principal); I25.10 Atherosclerotic heart disease of native coronary artery without angina pectoris; I73.9 Peripheral vascular disease, unspecified; I10 Essential (primary) hypertension; J44.9 Chronic obstructive pulmonary disease, unspecified; I65.23 Occlusion and stenosis of bilateral carotid arteries; E78.5 Hyperlipidemia, unspecified; F17.210 Nicotine dependence, cigarettes, uncomplicated; Z79.82 Long term (current) use of aspirin; Z79.899 Other long term (current) drug therapy
CPT/HCPCS: 36415; 80053; 80061; 85027; 85610; 85730; 87081; 93005; 93312; 93325

== ENCOUNTER → 2018-04-25 | Outpatient (CLI) | payer MEDICAID ==
[~2018-04-25] VITALS: Ht 165.1 cm; Wt 73.5 kg
[~2018-04-25] MED LIST changes: +AMLO10TA2 PO; +CATHETER FLUSH 10 ML SYR IV PRN; +REGADENOSON 0.4 MG/5 ML SYR (LEXISCAN) IV ONE
[2018-04-25 09:01] VITALS: BP 144/72
[2018-04-25 09:09] VITALS: BP 163/72
--- NOTE | 2018-04-25 12:59 | STRESS TEST ---
DATE OF SERVICE: 04/25/2018 RESTING AND POST REGADENOSON TECHNETIUM 99M TETROFOSMIN SPECT CT IMAGING CLINICAL DIAGNOSES: Coronary artery disease, history of right coronary artery occlusion. Baseline images were carried out after injection of 10.56 mCi technetium-99m Tetrofosmin. This was followed by 0.4 mg regadenoson and 30.9 mCi technetium-99m Tetrofosmin for stress imaging. The electrocardiogram showed sinus rhythm at baseline. The electrocardiogram did not change significantly with the regadenoson infusion. Review of images at rest and following stress indicates a fixed basal inferior perfusion defect. Gated images show basal inferior hypokinesis to akinesis. Left ventricular ejection fraction is calculated to be 62%. Left ventricular end-diastolic volume is 78 mL. TID is absent (1.01). CONCLUSIONS: 1. Inferior infarction without evidence of ischemia. 2. Basal inferior hypokinesis to akinesis. 3. Well-preserved global left ventricular systolic function with a calculated ejection fraction of 62%. Job ID: [id number] DocumentID: [id number] Dictated Date: 04/25/2018 12:36:53 Draw Press Operator Date: 04/25/2018 12:59:24 Dictated By: COBY ELLISON MD, MA, FACP, FACC,
== END ==
LOC: CARD 07:02
PROVIDERS: ATTEND Nurse Practitioner Family
DX: I25.10 Atherosclerotic heart disease of native coronary artery without angina pectoris (principal); I10 Essential (primary) hypertension; I34.0 Nonrheumatic mitral (valve) insufficiency; I73.9 Peripheral vascular disease, unspecified; R06.02 Shortness of breath; Z72.0 Tobacco use
CPT/HCPCS: 78452; 93017

== ENCOUNTER 2018-05-16 13:11 | Day surgery (SDC) | payer MEDICAID ==
[~2018-05-16] VITALS: Ht 157.5 cm; Wt 73.5 kg
[2018-05-16] VITALS (10 sets, daily range): BP systolic 147–190; BP diastolic 74–93
[~2018-05-16 13:11] MED LIST changes: -CATHETER FLUSH 10 ML SYR IV PRN; -REGADENOSON 0.4 MG/5 ML SYR (LEXISCAN) IV ONE
[2018-05-16 13:58] LABS: HEMOGLOBIN 15.2 G/DL (13.3-17.7); MEAN PLATELET VOLUME 10.9 FL (7.4-10.4); RED BLOOD COUNT 4.95 10^6/uL (4.35-5.85); RED CELL DISTRIBUTION WIDTH 12.8 % (10.0-14.5); WHITE BLOOD COUNT 6.8 10^3/uL (4.3-11.0)
[2018-05-16 14:16] LABS: ALANINE AMINOTRANSFERASE 22 U/L (0-55); ALBUMIN 4.3 GM/DL (3.2-4.5); ALKALINE PHOSPHATASE 56 U/L (40-136); BILIRUBIN,TOTAL 0.6 MG/DL (0.1-1.0); BUN/CREATININE RATIO 16; CALCIUM 9.4 MG/DL (8.5-10.1); CARBON DIOXIDE 29 MMOL/L (21-32); CHLORIDE 102 MMOL/L (98-107); CREATININE SERUM 1.14 MG/DL (0.60-1.30); GFR ESTIMATED > 60; GLUCOSE 86 MG/DL (70-105); INR 0.9 (0.8-1.4); POTASSIUM 4.1 MMOL/L (3.6-5.0); PROTHROMBIN TIME PATIENT 12.3 SEC (12.2-14.7); SODIUM 139 MMOL/L (135-145)
[2018-05-16] MEDS ORDERED: NS IV 1000 ML 1,000 ML ONE (14:17)
[2018-05-16] MEDS ORDERED: LIDOCAINE 1% INJ 20 ML 20 ML VIAL ONE (14:17)
[2018-05-16] MEDS ORDERED: HEParin (CATH LAB) 2,000 ML IV ONE (14:17)
[2018-05-16] MEDS ORDERED: NS IV 1000 ML 1,000 ML IV SCH ×2 (15:15→17:20)
[2018-05-16] MEDS ORDERED: AMLO10TA2 PO (15:21)
[2018-05-16] MEDS ORDERED: HEParin 1000 UNIT/ML (10ML VIAL) FOR BOLUS ONE (16:22)
[2018-05-16] MEDS ORDERED: VERAPAMIL 5 MG/2 ML (CALAN) VIAL IV ONE (16:22)
[2018-05-16] MEDS ORDERED: NITRO DRIP 25000 MCG/D5W 250 ML IV ONE (16:22)
[2018-05-16] MEDS ORDERED: MIDAZOLAM 5 MG/5 ML (VERSED) VIAL ONE (16:22)
[2018-05-16] MEDS ORDERED: fentaNYL INJECTION 100 MCG/2 ML AMP ONE (16:22)
--- NOTE | 2018-05-16 17:15 | Cardiac Procedure Note-CS/ASA ---
Pre-Procedure Note Pre-Op Procedure Note H&P Reviewed The H&P was reviewed, patient examined and no changes noted. Date H&P Reviewed: May 16, 2018 Time H&P Reviewed: 14:30 Conscious Sedation Pre-Proced Time Reviewed: 14:30 ASA Class: 3 Airway Mallampati Classification: ([place] appropriate class) I. II. III, IV Lungs Heart ASA score ASA 1: a normal healthy patient ASA 2: a patient with a mild systemic disease (mid diabetes, controlled hypertension, obesity ASA 3: a patient with a severe systemic disease that limits activity (angina , COPD, prior Myocardial infarction) ASA 4: a patient with an incapacitating disease that is a constant threat to life (CHF, renal failure) ASA 5: a moribund patient not expected to survive 24 hrs. (ruptured aneurysm) ASA 6: a declared brain patient whose organs are being harvested. For emergent operations, add the letter E after the classification Grade 1 Sedation Plan: Analgesia, Amnesia, Plan communicated to team members, Discussed options with patient/fam, Discussed risks with patient/fam Note The patient is an appropriate candidate to undergo the planned procedure, sedation, and anesthesia. The patient immediately re-assessed prior to indication. Mayuri MARTIN MD May 16, 2018 5:15 pm
--- NOTE | 2018-05-16 17:20 | Coronary Angiography Report ---
Coronary Angiography Report DATE OF PROCEDURE: 05/16/18 INDICATION: Severe mitral regurgitation, precardiac surgery. PREOPERATIVE DIAGNOSIS: Severe mitral regurgitation, precardiac surgery. POSTOPERATIVE DIAGNOSIS: Multivessel CAD, severe mitral regurgitation. HISTORY: This is a 62-year-old gentleman with previous history of CAD. He is a patient of Dr. Power and has been diagnosed with severe mitral regurgitation. Cardiac surgery is planned. Coronary angiography is recommended before cardiac surgery. PROCEDURES PERFORMED: 1.Coronary angiography. 2.Left heart catheterization. 3. Aortic arch angiogram. COMPLICATIONS: None. SPECIMENS: None. ESTIMATED BLOOD LOSS: 10 mL ANESTHESIA: Conscious sedation ANTICOAGULATION: IV heparin CONTRAST: 58 mL. FLUOROSCOPY: 3.2 minutes. FLOUROSCOPY DOSE: 401 MGY. PROCEDURE DETAILS: The patient is a 62 male and was brought to the catholic priest after informed consent was taken. All the risks and complications were explained in detail; this included the risk of bleeding, vascular damage, stroke , CT and even . The patient was draped and prepped in the usual sterile fashion. Access was gained in the right radial artery with a 6 Indonesian sheath. Coronary angiography and left heart catheterization was performed with the [place] catheter. FINDINGS: 1.Left main: Short left main. No significant disease. 2.LAD: Total occlusion in the mid LAD. Left to left collaterals. Distal LAD. 3.Left circumflex artery: Patent ramus intermedius artery. Patent first OM artery. There is faint filling of another artery on the lateral wall via collaterals which is either and OM or are diagonal artery. 4.RCA: Total mid occlusion with high bifurcation and a PDA and PL branch. 5.Left heart catheterization: LV pressure 120/15 mmHg. LVEDP 22 mmHg. Aortic pressure 108/57 mmHg. No gradient across the aortic valve. Normal LV function with no wall motion abnormalities. Severe mitral regurgitation. 6. Aortic arch angiogram: No evidence of aortic aneurysm or dissection. Patent proximal segments of the great arteries including brachycephalic artery, common carotid artery, subclavian artery. CONCLUSIONS: Multivessel CAD has described above. Severe mitral regurgitation. Isrrael Zuniga MD, FACP, FACC, [facility] Interventional Cardiology Mayuri ZUNIGA MD May 16, 2018 5:20 pm
--- NOTE | 2018-05-16 17:25 | Discharge Inst-Post CATH ---
Discharge Inst-CATH Post Cardiac Cath D/C Inst Follow Up/Plan Follow up with Dr Power and Dr Salazar. CARDIAC CATH DISCHARGE INSTRUCTIONS *Hold Metformin for 48 hours post heart cath. ACTIVITY * Go Home directly and rest. * Limit activity of the leg (or wrist if it was used) for 7 days including aerobics, swimming, jogging, bicycling, etc. * Restrict stair-climbing for 7 days if possible, if not, climb up with your non -cath leg, then bring together on the same step. * Avoid lifting, pushing, pulling or excessive movement of the affected extremity for 7 days. * Customary sexual activity may be resumed after 2 days-use caution not to use a position that strains or causes pain to the affected extremity. * No driving for 24 hours. * NO SMOKING. * Avoid straining for bowel movements for 7 days. * Gentle walking on level ground is allowed. * Returning to work will depend on the type of procedure and the results. Your doctor will discuss this with you. CALL YOUR DOCTOR FOR ANY OF THE FOLLOWING: *If bleeding from the puncture site occurs- Apply gentle pressure to site with clean cloth and call your doctor or EMS. * If a knot or lump forms under the skin, increases in size, or causes pain. * If bruising appears to be worsening or moving further down your leg instead of disappearing. * Temperature above 101 F. CARE OF YOUR GROIN INCISION; * Bruising or purple discoloration of the skin near the puncture site is common. * You may shower only, no bathtub bathing for 5 days. Be careful to avoid slipping as your leg may feel stiff. * If a closure device was used on your femoral artery, please see the attached guide regarding care of the device and your leg. * REMOVE the dressing from your groin the next day after your procedure in the shower. CARE OF YOUR WRIST INCISION; * Bruising or purple discoloration of the skin near the puncture site is common. * You may shower. * DO NOT submerge wrist. * Remove dressing in 24 hours. Mayuri MARTIN MD May 16, 2018 5:24 pm
--- NOTE | 2018-05-16 17:27 | Cardiology Discharge Summary ---
Diagnosis/Chief Complaint Date of Admission 05/16/2018 Date of Discharge 05/16/2018 Admission Diagnosis Severe mitral regurgitation, CAD Final/Discharge Diagnosis Multivessel CAD, severe mitral regurgitation Chief Complaint/HPI Chief Complaint/HPI This is a 62-year-old gentleman who is a patient of Dr. Power. He has severe mitral regurgitation and is planning cardiac surgery. Preoperative coronary angiography is recommended. Discharge Summary Procedures Coronary angiography shows multivessel severe CAD including LIQUID CENTER ASSEMBLER of mid LAD, LIQUID CENTER ASSEMBLER of mid RCA, another vessel on the lateral wall filled via left to left collaterals, origin unknown. Normal LV function with no wall motion abnormalities. Severe mitral regurgitation. Discharge Physical Examination Normal. Hospital Course Unremarkable. Pending Labs Laboratory Tests 05/16/18 13:51: White Blood Count 6.8, Red Blood Count 4.95, Hemoglobin 15.2, Hematocrit 43, Mean Corpuscular Volume 87, Mean Corpuscular Hemoglobin 31, Mean Corpuscular Hemoglobin Concent 36, Red Cell Distribution Width 12.8, Platelet Count 126, Mean Platelet Volume 10.9, Prothrombin Time 12.3, INR Comment 0.9, Sodium Level 139, Potassium Level 4.1, Chloride Level 102, Carbon Dioxide Level 29, Anion Gap 8, Blood Urea Nitrogen 18, Creatinine 1.14, Estimat Glomerular Filtration Rate > 60, BUN/Creatinine Ratio 16, Glucose Level 86, Calcium Level 9.4, Total Bilirubin 0.6, Aspartate Amino Transf (AST/SGOT) 47, Alanine Aminotransferase ( ALT/SGPT) 22, Alkaline Phosphatase 56, Total Protein 7.0, Albumin 4.3 Discussion & Recommendations Discussion Discussed with the patient. Follow up appt.: Dr. Power and Dr. Salazar. Dicharge Diet: Cardiac Diet Activity as Tolerated: Yes Home Medications Reviewed patient Home Medication Reconciliation performed by pharmacy medication reconciliations sales service technician and/or nursing. Patients Allergies have been reviewed. Discharge Home Medications: Reviewed and agree with Discharge Medication list on patient's Discharge Instruction sheet Condition at discharge Stable. Instructions to patient/family Follow up with Dr Power and Dr Salazar. Mayuri MARTIN MD May 16, 2018 17:27
[2018-05-16] MEDS ORDERED: PATIENT MAY USE OWN MEDS, ALL PO SCH (17:30)
[2018-05-16] MEDS ORDERED: amLODIPine 10 MG (NORVASC) TAB ONE (20:16)
== END 2018-05-16 20:28 | disposition home or self-care (01) ==
LOC: CATH 13:11 → 4TH 17:24 → CATH 20:28
PROVIDERS: ATTEND Internal Medicine Interventional Cardiology
DX: I25.10 Atherosclerotic heart disease of native coronary artery without angina pectoris (principal); I34.0 Nonrheumatic mitral (valve) insufficiency; I10 Essential (primary) hypertension; E78.5 Hyperlipidemia, unspecified; I73.9 Peripheral vascular disease, unspecified; F17.210 Nicotine dependence, cigarettes, uncomplicated; Z79.82 Long term (current) use of aspirin
CPT/HCPCS: 36415; 80053; 85027; 85610; 87081; 93458

== ENCOUNTER → 2019-11-26 | Outpatient (CLI) | payer MEDICAID ==
[~2019-11-26] MED LIST changes: -AMLO10TA2 PO; +AMLO10TA7 PO; -GABA600T2 PO; +GBPN600T PO; -ROSU20TA PO; +ROSU20TA2 PO
--- NOTE | 2019-11-26 15:32 | Diagnostic Imaging Report ---
PROCEDURE: US carotid duplex, bilateral. TECHNIQUE: Multiple real-time grayscale images were obtained over the carotid arteries in various projections, bilaterally. Additional spectral analysis and color Doppler duplex images were also obtained. INDICATION: Coronary artery disease. History of stroke and bilateral carotid endarterectomies. COMPARISON: 01/18/2018 FINDINGS: Right carotid circulation: The right common carotid artery is normal in caliber, and there is no significant stenosis. Peak systolic velocity in the right common carotid artery is 73 cm/sec. There are changes of prior carotid endarterectomy. No recurrent luminal narrowing at the carotid bulb. The peak systolic velocity in the proximal internal carotid artery is 191 cm/sec, which appears falsely elevated due to tortuosity of the vessel. Proximal aspect of the external carotid artery is patent with expected high resistance waveforms, and peak systolic velocity of 173 cm/sec. Left carotid circulation: The left common carotid artery is normal in caliber, and there is no significant stenosis. Peak systolic velocity in the left common carotid artery is 104 cm/sec. There are changes of prior carotid endarterectomy. No recurrent luminal narrowing at the carotid bulbs. The peak systolic velocity in the proximal internal carotid artery is 101 cm/sec. Proximal aspect of the external carotid artery is patent with expected high resistance waveforms, and peak systolic velocity of 120 cm/sec. Vertebral arteries: Flow in the bilateral vertebral arteries is antegrade. IMPRESSION: 1. Bilateral carotid endarterectomies have been performed. No recurrent stenosis of the proximal internal carotid arteries. 2. Patent bilateral vertebral arteries with antegrade flow. Parameters based on the consensus panel Hernandez-Scale and Doppler ultrasound criteria published August 2003, Radiology, Volume 229. DOPPLER (peak systolic velocity M/S Right Left CCA .73 1.04 ICA Proximal .93 .85 ICA Mid 1.91 .99 ICA Distal .96 1.01 RATIO 2.6 1 ECA 1.73 1.20 VERT .71 .45 Dictated by: Dictated on workstation # [id number]
== END ==
LOC: CARD 11:33
PROVIDERS: ATTEND Internal Medicine Cardiovascular Disease
DX: I07.1 Rheumatic tricuspid insufficiency (principal); I25.10 Atherosclerotic heart disease of native coronary artery without angina pectoris; J44.9 Chronic obstructive pulmonary disease, unspecified; E78.5 Hyperlipidemia, unspecified; I10 Essential (primary) hypertension; I65.23 Occlusion and stenosis of bilateral carotid arteries; I70.213 Atherosclerosis of native arteries of extremities with intermittent claudication, bilateral legs; Z95.0 Presence of cardiac pacemaker; Z72.0 Tobacco use; Z86.73 Personal history of transient ischemic attack (TIA), and cerebral infarction without residual deficits; Z98.890 Other specified postprocedural states
CPT/HCPCS: 93306; 93880

== ENCOUNTER → 2019-11-28 | Outpatient (CLI) | payer MEDICAID ==
[~2019-11-28] VITALS: Ht 157 cm; Wt 74.0 kg
[~2019-11-28] MED LIST changes: +CATHETER FLUSH 10 ML SYR IV PRN; +REGADENOSON 0.4 MG/5 ML SYR (LEXISCAN) IV ONE
[2019-11-28 09:14] VITALS: BP 208/99
[2019-11-28 09:20] VITALS: BP 177/101
--- NOTE | 2019-11-28 19:53 | STRESS TEST ---
DATE OF SERVICE: 11/28/2019 RESTING AND POST REGADENOSON TECHNETIUM-99M TETROFOSMIN SPECT CT IMAGING ORDERING PHYSICIAN: Dr. Power. OTHER PHYSICIAN: Connie Burt APRN CLINICAL DIAGNOSES: Coronary artery disease, shortness of breath, hyperlipidemia, hypertension. Baseline images were carried out after injection of 10.58 mCi of technetium-99m Tetrofosmin. This was followed by 0.4 mg regadenoson and 29.1 mCi of technetium-99m Tetrofosmin for stress imaging. The electrocardiogram showed sinus rhythm at baseline. It did not change significantly with regadenoson infusion. There is electrocardiographic evidence of old inferolateral myocardial infarction. There is nonspecific ST segment and T-wave abnormalities that did not change with the regadenoson infusion. The patient tolerated the procedure well and did not report symptoms. Review of images at rest and following stress indicates an inferolateral perfusion defect that is predominantly fixed. Gated images show inferolateral hypokinesis to akinesis. Left ventricular ejection fraction is calculated to be 58%. Left ventricular end diastolic volume is 54 mL. TID is absent (1.01). CONCLUSIONS: 1. Inferolateral myocardial infarction without significant ischemia. 2. Inferolateral hypokinesis to akinesis. 3. Well preserved global left ventricular systolic function with an ejection fraction of 58%. Job ID: [id number] DocumentID: [id number] Dictated Date: 11/28/2019 17:23:03 Project Manager Entertainment [employer] Date: 11/28/2019 19:52:31 Dictated By: COBY POWER MD, MA, FACP, FACC, MTDD
== END ==
LOC: CARD 07:45
PROVIDERS: ATTEND Internal Medicine Cardiovascular Disease
DX: I21.19 ST elevation (STEMI) myocardial infarction involving other coronary artery of inferior wall (principal); I25.10 Atherosclerotic heart disease of native coronary artery without angina pectoris; J43.8 Other emphysema; E78.5 Hyperlipidemia, unspecified; I10 Essential (primary) hypertension; I65.29 Occlusion and stenosis of unspecified carotid artery; I73.9 Peripheral vascular disease, unspecified; Z95.0 Presence of cardiac pacemaker; Z72.0 Tobacco use
CPT/HCPCS: 78452; 93017

== ENCOUNTER 2020-04-06 06:38 | Day surgery (SDC) | payer MEDICAID ==
[2020-04-06] VITALS (10 sets, daily range): BP systolic 135–171; BP diastolic 63–89
[~2020-04-06] VITALS: Ht 157.5 cm; Wt 73.0 kg
[~2020-04-06 06:38] MED LIST changes: -CATHETER FLUSH 10 ML SYR IV PRN; -REGADENOSON 0.4 MG/5 ML SYR (LEXISCAN) IV ONE
--- OUTSIDE RECORDS SUMMARY | 2020-04-06 06:48 | XMS REPORT ---
Author Author Jermaine CAMPOS Organization [facility] Address [address] [place] [address] Care Team Providers Care Jawbone Puller Name Role Phone TIFFANIE CAMPOS Unavailable PROBLEMS Type Condition ICD9-CM Code TGQ24-UY Code Onset Dates Condition S tatus SNOMED Code Problem Fatty liver K76.0 Active 20090089 7 Problem Chronic pain G89.29 Active 2004120 1 Problem Abdominal bloating R14.0 Active 1 08380649 Problem Diverticulosis of intestine without bleeding, unspecified intestinal tract location K57.90 Active 18452271 Problem Gastroesophageal reflux disease without esophagitis K21.9 Active 450312468 Problem COPD (chronic obstructive pulmonary disease) wit h chronic bronchitis J44.9 Active 954719247 Problem Bilateral carotid artery disease I77.9 Active 255986066 Problem Chronic bronchitis J42 Active 6 9809523 Problem Claudication of both lower extremities I73.9 Active 107667351 Problem Hyperlipemia E78.5 Active 3674716 4 Problem Non-rheumatic mitral regurgitation I34.0 Active 799419521 Problem Claudication I73.9 Active 4924678 6 Problem Peripheral arterial disease I73.9 Ac tive 955230989 Problem Pacemaker Z95.0 Active 695869798 Problem Chronic obstructive pulmonary disease, unspecified COPD ty pe J44.9 Active 12012881 Problem Tobacco abuse Z72.0 Active 987700 05 Problem Carpal tunnel syndrome on both sides G56.03 Active [id number] Problem PAD (peripheral artery disease) I73.9 Active 728995443 Problem Benign essential hypertension I10 Active 3166064 Problem CAD (coronary artery disease) I25.10 Active 47560306 Problem Mixed hyperlipidemia E78.2 Active 467126358 Problem Other chronic pain G89.29 Active 8 7150328 Problem Diet-controlled diabetes mellitus E11.9 Active 005910989 Problem Degenerative disc disease, cervical M50.30 Active 30187045 ALLERGIES No Information ENCOUNTERS Encounter Location Date [facility] [address] [id number], [place] [id number] February, [facility] [address] [id number], [place] [id number] February, [facility] [address] [id number], [place] [id number] February, [facility] [address] [id number], [place] [address]16861270 Jan, [facility] [address] [id number], [place] [address]06[address] Jan, [facility] [address] [facility] [address] [id number], [place] 488549049 Jan, Diet-controlled diabetes mellitus E11.9 ; Benign essential hypertension I10 ; Tobacco abuse Z72.0 and Tobacco abuse counseling Z71.6 [facility] [address] [id number], [place] [address]47[address] Jan, [facility] [address] [facility] [address] [id number], [place] [address]389699[address] Aug, Carpal tunnel syndrome on both sides G56 .03 ; Sore of lower lip K13.0 ; Benign essential hypertension I10 ; COPD (chronic obstructive pulmonary disease) with chronic bronchitis J44.9 and Hyperlipemia E78.5 [facility] [address] [id number], [place] [address]84670[address] May, [facility] [address] [id number], [place] [id number] Mar, [facility] [address] [id number], [place] [address] Mar, Facet arthritis of cervical region M47.8 12 and Cervical radiculopathy M54.12 [facility] [address] [id number], [place] 006853277 February, Degenerative disc disease, cervical M50. 30 ; Facet arthritis of cervical region M47.812 ; Cervical radiculopathy M54.12 and Pacemaker Z95.0 [facility] [address] [id number], [place] [id number] February, [facility] [address] [id number], [place] [id number] Jan, [facility] [address] [place] [address] AVE [id number], [place] 904152490 Sep, Diet-controlled diabetes mellitus E11.9 ; Benign essential hypertension I10 and Tobacco abuse Z72.0 [facility] [address] [id number], [place] [id number] Jul, Hyperlipemia E78.5 and CAD (coronary art janneth disease) I25.10 [facility] [address] [id number], [place] 863993470 Jun, CAD (coronary artery disease) I25.10 and Hyperlipemia E78.5 [facility] [address] [place] [address] AVE [id number], [place] [id number] Jun, New onset type 2 diabetes mellitus E11.9 ; S/P CABG (coronary artery bypass graft) Z95.1 ; Benign essential hypertension I10 ; Other chronic pain G89.29 and S/P cardiac pacemaker procedure Z95.0 [facility] [address] [place] [address] AVE [id number], [place] [id number] Jun, [facility] [address] [place] [address] AVE [id number], [place] [id number] May, [facility] [address] [id number], [place] [id number] May, COPD (chronic obstructive pulmonary dise ase) with chronic bronchitis J44.9 ; Tobacco abuse Z72.0 and Tobacco abuse counseling Z71.6 [facility] [address] [id number], [place] [id number] Apr, CAD (coronary artery disease) I25.10 [facility] [id number], [place] 759212279 Mar, Peripheral arterial disease I73.9 [facility] [address] [id number] [place] [id number] February, Chronic pain G89.29 ; Hyperlipemia E78.5 and Benign essential hypertension I10 [facility] [address] [id number], [place] 900403953 Jan, COPD (chronic obstructive pulmonary dise ase) with chronic bronchitis J44.9 [facility] [address] [id number], [place] [id number] Jan, [facility] [address] [id number], [place] 948462579 Jan, Peripheral arterial disease I73.9 ; Carlo gn essential hypertension I10 ; Bilateral carotid artery disease I77.9 ; Claudication of both lower extremities I73.9 ; Mixed hyperlipidemia E78.2 ; Tobacco use Z72.0 and Non- rheumatic mitral regurgitation I34.0 [facility] [address] [id number], [place] 669743772 Jan, RUQ pain R10.11 ; Gastroesophageal reflu x disease without esophagitis K21.9 and Change in stool R19.5 [facility] [address] [id number], [place] [id number] Jan, [facility] [address] [id number], [place] 597146378 Jan, Neck pain M54.2 ; Benign essential hyper tension I10 ; COPD (chronic obstructive pulmonary disease) with chronic bronchitis J44.9 and Chronic obstructive pulmonary disease, unspecified COPD type J44.[address] [facility] [facility]USSpan[facility] [address] [id number], [place] [id number] Jan, Chronic obstructive pulmonary disease, u nspecified COPD type J44.9 [facility] [address] [id number], [place] [id number] Dec, [facility] [address] [id number], [place] [address]14840506 Dec, [facility] [address] [place] [address] AVE [id number], [place] [id number] Dec, COPD (chronic obstructive pulmonary dise ase) with chronic bronchitis J44.9 [facility] [place] [address] [facility] [id number] 100[place] [address] Dec, [facility] [place] [address] [facility] [id number] [address] [place] [address] Dec, [facility] [address] [id number], [place] [id number] Nov, [facility] [address] [id number], [place] 098404877 Nov, Benign essential hypertension I10 and CO PD (chronic obstructive pulmonary disease) with chronic bronchitis J44.[address] [id number], [place] [id number] Nov, Hyperlipemia E78.5 ; Benign essential hy pertension I10 ; COPD (chronic obstructive pulmonary disease) with chronic bronchitis J44.9 ; Encounter for immunization Z23 ; Gastroesophageal reflux disease without esophagitis K21.9 and Chronic pain G89.[address] [facility] [address] [id number], [place] [id number] Oct, COPD (chronic obstructive pulmonary dise ase) with chronic bronchitis J44.9 and Chronic obstructive pulmonary disease, unspecified COPD type J44.[address] [facility] [address] [id number], [place] [id number] Oct, COPD (chronic obstructive pulmonary dise ase) with chronic bronchitis J44.9 and Chronic obstructive pulmonary disease, unspecified COPD type J44.[address] [facility] [address] [id number], [place] [id number] Oct, COPD (chronic obstructive pulmonary dise ase) with chronic bronchitis J44.9 and Chronic obstructive pulmonary disease, unspecified COPD type J44.[address] [facility] [address] [id number], [place] [id number] Oct, Benign essential hypertension I10 and Ne ck pain M54.2 [facility] [address] [id number], [place] 472424344 Sep, PAD (peripheral artery disease) I73.9 ; Claudication of both lower extremities I73.9 ; Bilateral carotid artery disease I77.9 ; Benign essential hypertension I10 ; Hyperlipemia E78.5 and Dyspnea on exertion R06.09 [facility] [address] [id number], [place] [id number] Aug, Benign essential hypertension I10 ; Vannessa roesophageal reflux disease without esophagitis K21.9 and Cervical radiculopathy M54.12 [facility] [address] [id number], [place] 214490491 Aug, Gastroesophageal reflux disease without esophagitis K21.9 [facility]ALSESpanlink CommunicationsW[address] [id number], [place] 912346566 Aug, COPD (chronic obstructive pulmonary dise ase) with chronic bronchitis J44.9 [facility] [address] [id number], [place] 977010726 Jul, [facility] [address] [id number], [place] 107078174 Jul, Benign essential hypertension I10 [facility] [address] [id number], [place] 860716976 Jul, [facility] CommunicationsW[address] [address] [id number], [place] 123574768 Jul, COPD (chronic obstructive pulmonary dise ase) with chronic bronchitis J44.9 [facility] [address] [id number], [place] [id number] Jul, Neck pain M54.2 [facility] [address] [id number], [place] 587709060 Jun, Claudication of both lower extremities I 73.9 ; PAD (peripheral artery disease) I73.9 ; Bilateral carotid artery disease I77.9 ; CAD (coronary artery disease) I25.10 ; Tobacco abuse Z72.0 ; Benign essential hypertension I10 ; Hyperlipemia E78.5 and Non-rheumatic mitral valve stenosis I34.[address] [facility] [address] [id number] [place] [id number] Jun, Chronic obstructive pulmonary disease, u nspecified COPD type J44.[address] [facility] [address] [id number] [place] [id number] May, [facility] [address] [id number] [place] [id number] May, Chronic obstructive pulmonary disease, u nspecified COPD type J44.9 [facility] [address] [id number] [place] [id number] May, Neck pain M54.2 ; Chronic obstructive pu lmonary disease, unspecified COPD type J44.9 and Cervical radiculopathy M54.[address] [facility] [address] [id number] [place] 458263428 May, [facility] [address] [id number] [place] [id number] Apr, [facility] [address] [id number] [place] [id number] Apr, Gastroesophageal reflux disease without esophagitis K21.[address] [facility] [address] [id number] [place] [id number] Apr, COPD (chronic obstructive pulmonary dise ase) with chronic bronchitis J44.[address] [facility] [address] [id number] [place] [id number] Apr, [facility] [address] [id number] [place] [id number] Apr, [facility] [address] [id number] [place] [id number] Apr, COPD (chronic obstructive pulmonary dise ase) with chronic bronchitis J44.9 ; Benign essential hypertension I10 ; Tobacco abuse counseling Z71.6 and Hyperlipemia E78.[address] [facility] [address] [id number] [place] 566752254 February, COPD (chronic obstructive pulmonary dise ase) with chronic bronchitis J44.[address] [facility] [address] [id number] [place] [id number] Jan, [facility] [address] [id number], [place] 732954987 Jan, COPD (chronic obstructive pulmonary dise ase) with chronic bronchitis J44.[address] [facility] [address] [id number], [place] [id number] Oct, COPD (chronic obstructive pulmonary dise ase) with chronic bronchitis J44.[address] [facility] [address] [id number], [place] 124515004 Oct, Winter itch L29.[address] [facility] [address] [id number], [place] [id number] Oct, COPD (chronic obstructive pulmonary dise ase) with chronic bronchitis J44.9 ; Benign essential hypertension I10 ; Tobacco abuse Z72.0 and Gastroesophageal reflux disease without esophagitis K21.9 [facility] [address] [id number], [place] [id number] Sep, Benign essential hypertension I10 [address] [address] [id number], [place] [id number] Aug, [facility] [address] [id number], [place] [id number] Jul, [facility] [address] [id number], [place] 500017422 Apr, [facility] [address] [id number], [place] [id number] Apr, Abdominal bloating R14.0 ; Fatty liver K 76.0 ; Diverticulosis of intestine without bleeding, unspecified intestinal tract location K57.90 ; Chronic obstructive pulmonary disease, unspecified COPD type J44.9 and Benign essential hypertension I10 [address] [id number], [place] [id number] Apr, Mild early onset dysthymic disorder, in partial remission, with melancholic features, 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 [facility] [address] [id number], [place] [id number] Mar, Abdominal muscle strain, initial encount er S39.011A [facility] [address] [id number], [place] 855274606 Jan, Pancreatitis K85.9 ; Abdominal bloating R14.0 ; Chronic bronchitis J42 and Chronic pain G89.[address] [facility] [address] [id number], [place] [id number] Nov, [facility]USSpanlink CommunicationsWAGNER[address] AVCleburne [facility] Nursing [id number] [place] [address] [id number] Nov, [facility] [address] [id number], [place] [id number] Nov, Chronic bronchitis J42 ; Tobacco abuse Z 72.0 and Tobacco abuse counseling Z71.[address] [facility] [address] [address] [place] [address] AVE [id number], [place] [id number] Oct, [facility]USSpanlink CommunicationsWAGNER[address] [id number], [place] [id number] Oct, Chronic bronchitis J42 ; Tobacco abuse Z 72.0 and Benign essential hypertension I10 [facility] [address] [address] [place] [address] AVE [id number], [place] [id number] Oct, Chronic bronchitis J42 ; Tobacco abuse Z 72.0 ; Tobacco abuse counseling Z71.6 ; Benign essential hypertension I10 and Hyperlipemia E78.5 [facility] [place] [address] [facility] [id number] [address] [place] [address] Sep, [facility] [address] [id number], [place] [id number] Jul, [facility] [place] [address] [facility] [id number] [address] [place] [address] Jul, Essential (primary) hyperten aida I10 [place] [id number] [facility] [id number] [address] [place] [address] Jul, [facility] [address] [address] [facility] [address] [id number], [place] [id number] Jul, [facility] [address] [facility] [address] [id number], [place] [id number] Jun, Benign essential hypertension 401.1 ; Ge neralized edema 782.3 ; Chronic pain 338.29 and Hyperlipemia 272.4 [facility] [address] [place] [address] AVE [id number], [place] [id number] May, Upper respiratory infection 465.9 and Co ugh 786.[address] [id number] [place] [address] [id number] Mar, Upper respiratory infection 465.9 ; Toba account contact associate abuse 305.1 and Cough 786.2 [facility] [address] [place] [address] AVE [id number], [place] [id number] February, [facility] [address] [facility] [address] [id number], [place] [id number] February, Status post bilateral carotid endarterec vito V45.89 ; CAD (coronary artery disease) 414.00 ; Benign essential hypertension 401.1 ; Hyperlipemia 272.4 ; Tobacco abuse 305.1 ; Tobacco abuse counseling V65.42 and Chronic bronchitis 491.9 [facility] [place] [address] [place] [id number] [address] [place] [address] Jan, [facility] [place] [address] [place] [id number] [address] [place] [phone] Jan, [facility] [place] [address] [place] [address] Dec, [facility] [place] [address] [place] [id number] [address] [place] [address] Dec, [facility] [place] [address] [place] [id number] [address] [place] [phone] Nov, [facility] [address] [id number] [address] [place] [address], [place] [address] Nov, 2014 [facility] [address] [id number] [address] [place] [address], [place] [address] Nov, 2014 [facility] [address] [id number] [address] [place] [address], [place] [address] Nov, 2014 [facility] [address] [id number] [address] [place] [address], [place] [address] Nov, 2014 [facility] [address] [id number] [address] [place] [address], [place] [address] Nov, 2014 [facility] [address] [id number] [address] [place] [address], [place] [address] Nov, 2014 [facility] [address] [id number] [address] [place] [address], [place] [address] Nov, [facility] [address] [id number] [address] [place] [address], [place] [address] Nov, [facility] [address] [id number] [address] [place] [address], [place] [address] Oct, [facility] [address] [id number] [address] [place] [address], [place] [address] Oct, [facility] [address] [id number] [address] [place] [address], [place] [address] Oct, [facility] [address] [id number] [address] [place] [address], [place] [address] Oct, [facility] [address] [id number] [address] [place] [address], [place] [address] Oct, [facility] [address] [id number] [address] [place] [address], [place] [address] Oct, [facility] [address] [id number] [address] [place] [address], [place] [address] Oct, [facility] [address] [id number] [address] [place] [address] [place] [address] Oct, [facility] [address] [id number] [address] [place] [address], [place] [address] Oct, [facility] [address] [id number] [address] [place] [address], [place] [address] Oct, [facility] [place] [address] [id number] [place] [id number] Oct, [facility] [address] [id number] [address] [place] [address], [place] [address] Oct, [facility] [address] [id number] [address] [place] [address], [place] [address] Sep, [facility] [address] [id number] [address] [place] [address], [place] [address] Sep, [facility] [address] [id number] [address] [place] [address], [place] [address] Aug, [facility] [address] [id number] [address] [place] [address], [place] [address] Aug, [facility] [address] [id number] [address] [place] [address], [place] [address] Aug, [facility] [address] [id number] [address] [place] [address], [place] [address] Aug, [facility] [address] [id number] [address] [place] [address], [place] [address] Jul, [facility] [address] [id number] [address] [place] [address], [place] [address] Jul, [facility] [address] [id number] [address] [place] [address], [place] [address] Jun, [facility] [address] [id number] [address] [place] [address], [place] [address] Jun, [facility] [address] [id number] [address] [place] [address], [place] [address] May, [facility] [address] [id number] [address] [place] [address], [place] [address] May, [facility] [address] [id number] [address] [place] [address], [place] [address] May, [facility] [address] [id number] [address] [place] [address], [place] [address] May, [facility] [address] [id number] [address] [place] [address], [place] [address] Jan, [facility] [address] [id number] [address] [place] [address], [place] [address] Jan, [facility] [address] [id number] [address] [place] [address], [place] [address] Nov, [facility] [address] [id number] [address] [place] [address], [place] [address] Nov, [facility] [address] [id number] [address] [place] [address], [place] [address] Nov, [facility] [address] [id number] [address] [place] [address], [place] [address] Nov, [facility] [address] [id number] [address] [place] [address], [place] [address] Nov, [facility] [address] [id number] [address] [place] [address], [place] [address] Nov, [facility] [address] [id number] [address] [place] [id number] Nov, [facility] [address] [id number] [address] [place] [address], [place] [address] Nov, [facility] [address] [id number] [address] [place] [address], [place] [address] Nov, [facility] [address] [id number] [address] [place] [address], [place] [address] Nov, [facility] [address] [id number] [address] [place] [id number] Oct, [facility] [address] [id number] [address] [place] [address], [place] [address] Oct, [facility] [address] [id number] [address] [place] [address], [place] [address] Oct, [facility] [address] [id number] [address] [place] [address], [place] [address] Oct, [facility] [address] [id number] [address] [place] [address], [place] [address] Sep, [facility] [address] [id number] [address] [place] [address], [place] [address] Sep, [facility] [address] [id number] [address] [place] [address], [place] [address] Aug, [facility] [address] [id number] [address] [place] [address], [place] [address] Aug, [facility] [address] [id number] [address] [place] [address], [place] [address] Aug, [facility] [address] [address] [id number] [address] [place] [id number] Aug, [facility] [address] [id number] [address] [place] [address], [place] [address] Aug, [facility] [address] [id number] [address] [place] [phone] Aug, [facility] [address] [id number] [address] [place] [phone] Aug, [facility] [address] [id number] [address] [place] [id number] Aug, [facility] [address] [id number] [address] [place] [address], [place] [address] Jul, [facility] [address] [id number] [address] [place] [address], [place] [address] Jul, [facility] [address] [id number] [address] [place] [address], [place] [address] Jul, [facility] [address] [id number] [address] [place] [address], [place] [address] Jul, [facility] [address] [id number] [address] [place] [address], [place] [address] Jul, [facility] [address] [id number] [address] [place] [address], [place] [address] Jun, [facility] [address] [id number] [address] [place] [address], [place] [address] May, [facility] [address] [id number] [address] [place] [address], [place] [address] Apr, [facility] [address] [id number] [address] [place] [address], [place] [address] February, [facility] [address] [id number] [address] [place] [address], [place] [address] Jan, [facility] [address] [id number] [address] [place] [address], [place] [address] Jan, [facility] [address] [id number] [address] [place] [address], [place] [address] Dec, [facility] [address] [id number] [address] [place] [address], [place] [address] Dec, [facility] [address] [id number] [address] [place] [address], [place] [address] Dec, [facility] [address] [id number] [address] [place] [address], [place] [address] Nov, [facility] [address] [id number] [address] [place] [address], [place] [address] Nov, [facility] [address] [id number] [address] [place] [address], [place] [address] Nov, [facility] [address] [id number] [address] [place] [address], [place] [address] Nov, IMMUNIZATIONS No Known Immunizations SOCIAL HISTORY Never Assessed REASON FOR VISIT PLAN OF CARE VITAL SIGNS MEDICATIONS Unknown Medications RESULTS No Results PROCEDURES No Known procedures INSTRUCTIONS MEDICATIONS ADMINISTERED No Known Medications MEDICAL (GENERAL) HISTORY Type Description Date Medical History GERD Medical History hypertension Medical History 1999 mild stroke syndrome- C T head 02/2015 showed chronic ischemic changes Medical History chronic neck and back pain Medical History [place] x's 2 1996 and 2011 Medical History Chronic bronchitis- PFT 2012 normal Medical History Hyperlipidemia Medical History ECHO 2013- mild tricuspid an d mitral reguirg. Mild aortic sclerosis- EF 60% Medical History CT abdomen/pelvis- 12/2015- M ild diverticulosis, fatty liver, artherosclerosis of aorta Medical History Fatty liver- CT 2015 Medical History Tubular Adenoma and hyperplastic polyp dx 06/2016 Medical History Esophagitis Medical History Barretts Esophagus dx 2017 Medical History CABG and Pacemaker 05/2018 ([place]) Medical History Mild carpal tunnel syndrome bilat per [place] T 05/2019 Surgical History carotid endarterectomy, left side of nec k 02/2015 [facility], [facility] function,-minimal RCA blockage <20% 1996 Surgical History E[facility]akdis[facility]mild erosive esophagitis, mild nonspecific bulbar duodenitis 1996 Surgical History carotid endarterectomy, right- [facility] 01/14 015 Surgical History Heart cath with PTCA 2013 Surgical History Colonoscopy- tubular adenoma , hyperplastic polyp- repeat Colonoscopy 12/2016 Surgical History Bypass Surgery- CABG and Pacemaker 06/06 Hospitalization History heart attack 1996 Hospitalization History slurred speech, fever, left arm pain Sharifa Shah February 2015 Hospitalization History Pancreatitis 12/2015 Hospitalization History CABG 05/2018
--- OUTSIDE RECORDS SUMMARY | 2020-04-06 06:48 | XMS REPORT | Clinical Summary ---
Author Author [facility] Organization [facility] Address Unknown Phone Unavailable Care Team Providers Care Cash Applications Representative Name Role Phone No Pcp, Na PCP Unavailable Source Comments Some departments are not documenting in the electronic medical record. If you d o not see the information that you expected, contact Release of Information in [facility] [employer] Information Management department at [phone] for further assistan ce in locating additional records.[facility] Allergies No Known Allergies Medications End Date Status Medication Sig Dispensed Refills Start Date Active ASPIRIN PO Take 81 mg by 0 mouth. Active diphenhydrAMINE (SLEEP Take 25 mg by 0 AID (DIPHENHYDRAMINE)) 25 mouth every 6 mg capsule hours as needed. Active rosuvastatin (CRESTOR) 20 Take 20 mg by 0 mg tablet mouth daily. Active pantoprazole DR Take 40 mg by 0 (PROTONIX) 40 mg tablet mouth daily. Active carvedilol (COREG) 3.125 Take 3.125 mg 0 mg tablet by mouth twice daily with meals. Take with food. Active docosahexanoic acid/epa Take by 0 (FISH OIL PO) mouth. Active gabapentin (NEURONTIN) Take 600 mg 0 600 mg tablet by mouth every 8 hours. Active Problems Not on file Family History Relation Name Status Comments Father Mother Social History Date Tobacco Use Types Packs/Day Years Used Current Every Day Smoker Smokeless Tobacco: Never Used Drinks/Week oz/Week Comments Alcohol Use Yes Sex Assigned at Date Recorded Not on file Industry Job Start Date Occupation Not on file Not on file Not on file Travel End Travel History Travel Start No recent travel history available. Last Filed Vital Signs Reading Time Taken Comments Vital Sign 121/49 12/10/2018 2:45 PM [employer] Blood Pressure 83 12/10/2018 2:45 PM [employer] Pulse 36.6 C (97.9 F) 12/10/2018 2:30 PM [employer] Temperature - - Respiratory Rate 95% 12/10/2018 2:45 PM [employer] Oxygen Saturation - - Inhaled Oxygen Concentration 65.8 kg (145 lb) 12/10/2018 12:00 PM [employer] Weight 157.5 cm (5' 2") 12/10/2018 12:00 PM [employer] Height 26.52 12/10/2018 12:00 PM [employer] Body Mass Index Plan of Treatment Health Maintenance Due Date Last Done Comments HIV SCREENING 1970 DTAP/TDAP VACCINES (1 - 1973 Tdap) HEPATITIS C SCREENING 1973 PHYSICAL (COMPREHENSIVE) 1973 EXAM COLORECTAL CANCER 2005 SCREENING SHINGLES RECOMBINANT 2005 VACCINE (1 of 2) INFLUENZA VACCINE 07/15/2020 Results Not on filefrom Last 3 Months Insurance Type Payer Benefit Subscriber ID Effective Phone Address Plan / Dates Group AETNA MEDICAID AETNA xxxxxxxxxxx [id number] [facility] 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
--- OUTSIDE RECORDS SUMMARY | 2020-04-06 06:48 | XMS REPORT ---
Author Author Jermaine CAMPOS Organization [facility] Address [address] [place] [address] Care Team Providers Care Lead Massage Therapist Name Role Phone TIFFANIE CAMPOS Unavailable PROBLEMS Type Condition ICD9-CM Code AXK21-CZ Code Onset Dates Condition S tatus SNOMED Code Problem Fatty liver K76.0 Active 15654609 7 Problem Chronic pain G89.29 Active 2575754 1 Problem Abdominal bloating R14.0 Active 1 13626944 Problem Diverticulosis of intestine without bleeding, unspecified intestinal tract location K57.90 Active 18071119 Problem Gastroesophageal reflux disease without esophagitis K21.9 Active 442259274 Problem COPD (chronic obstructive pulmonary disease) wit h chronic bronchitis J44.9 Active 669315294 Problem Bilateral carotid artery disease I77.9 Active 764151834 Problem Chronic bronchitis J42 Active 6 1163533 Problem Claudication of both lower extremities I73.9 Active 678119204 Problem Hyperlipemia E78.5 Active 9138048 4 Problem Non-rheumatic mitral regurgitation I34.0 Active 983587710 Problem Claudication I73.9 Active 6917057 6 Problem Peripheral arterial disease I73.9 Ac tive 016040470 Problem Pacemaker Z95.0 Active 874079969 Problem Chronic obstructive pulmonary disease, unspecified COPD ty pe J44.9 Active 69194536 Problem Tobacco abuse Z72.0 Active 851821 05 Problem Carpal tunnel syndrome on both sides G56.03 Active [id number] Problem PAD (peripheral artery disease) I73.9 Active 594807622 Problem Benign essential hypertension I10 Active 4541880 Problem CAD (coronary artery disease) I25.10 Active 50681431 Problem Mixed hyperlipidemia E78.2 Active 399273143 Problem Other chronic pain G89.29 Active 8 2125864 Problem Diet-controlled diabetes mellitus E11.9 Active 142968346 Problem Degenerative disc disease, cervical M50.30 Active 84754356 ALLERGIES No Information ENCOUNTERS Encounter Location Date Diagnosis [facility] [address] [id number], [place] [id number] February, [facility] [address] [id number], [place] [address]444785 February, [facility] [address] [id number], [place] 538611976 February, [facility] [address] [id number], [place] [id number] Jan, [facility] [address] [id number], [place] 527046503 Jan, [facility] [address] [facility] [address] [id number], [place] 255362331 Jan, Diet-controlled diabetes mellitus E11.9 ; Benign essential hypertension I10 ; Tobacco abuse Z72.0 and Tobacco abuse counseling Z71.6 [facility] [address] [id number], [place] [id number] Jan, [facility] [address] [facility] [address] [id number], [place] [address]3465414 Aug, Carpal tunnel syndrome on both sides G56 .03 ; Sore of lower lip K13.0 ; Benign essential hypertension I10 ; COPD (chronic obstructive pulmonary disease) with chronic bronchitis J44.9 and Hyperlipemia E78.5 [facility] [address] [id number], [place] [address]96990991 May, [facility] [address] [id number], [place] [address]10080263 Mar, [facility] [employer] [address] [id number], [place] 188162897 Mar, Facet arthritis of cervical region M47.8 12 and Cervical radiculopathy M54.12 [facility] [employer] [address] [id number], [place] [id number] February, Degenerative disc disease, cervical M50. 30 ; Facet arthritis of cervical region M47.812 ; Cervical radiculopathy M54.12 and Pacemaker Z95.0 [facility] [address] [id number], [place] 927192816 February, [facility] [address] [id number], [place] 498992202 Jan, [facility] [address] [place] [address] AVE [id number], [place] 111720270 Sep, Diet-controlled diabetes mellitus E11.9 ; Benign essential hypertension I10 and Tobacco abuse Z72.0 [facility] [address] [id number], [place] 780224679 Jul, Hyperlipemia E78.5 and CAD (coronary art janneth disease) I25.10 [facility] [address] [id number], [place] 006278822 Jun, CAD (coronary artery disease) I25.10 and Hyperlipemia E78.5 [facility] [address] [place] [address] AVE [id number], [place] 651825603 Jun, New onset type 2 diabetes mellitus E11.9 ; S/P CABG (coronary artery bypass graft) Z95.1 ; Benign essential hypertension I10 ; Other chronic pain G89.29 and S/P cardiac pacemaker procedure Z95.0 [facility] [address] [place] [address] AVE [id number], [place] [id number] Jun, [facility] [address] [place] [address] AVE [id number], [place] [id number] May, [facility] [address] [id number], [place] [id number] May, COPD (chronic obstructive pulmonary dise ase) with chronic bronchitis J44.9 ; Tobacco abuse Z72.0 and Tobacco abuse counseling Z71.6 [facility] [address] [id number], [place] 717935[address] Apr, CAD (coronary artery disease) I25.10 [facility]The [employer]kW[address] [id number], [place] [id number] Mar, Peripheral arterial disease I73.9 [facility] [address] [id number] [place] 345519078 February, Chronic pain G89.29 ; Hyperlipemia E78.5 and Benign essential hypertension I10 [facility] [address] [id number], [place] 937394758 Jan, COPD (chronic obstructive pulmonary dise ase) with chronic bronchitis J44.9 [facility] [address] [id number], [place] 203856083 Jan, [facility]The [address] [id number], [place] 356353210 Jan, Peripheral arterial disease I73.9 ; Carlo gn essential hypertension I10 ; Bilateral carotid artery disease I77.9 ; Claudication of both lower extremities I73.9 ; Mixed hyperlipidemia E78.2 ; Tobacco use Z72.0 and Non- rheumatic mitral regurgitation I34.0 [facility]pic[facility]ledgeTER [address] [id number], [place] 412034183 Jan, RUQ pain R10.11 ; Gastroesophageal reflu x disease without esophagitis K21.9 and Change in stool R19.5 [facility] [address] [id number], [place] 8669239[address] Jan, [facility] [address] [id number], [place] 454915848 Jan, Neck pain M54.2 ; Benign essential hyper tension I10 ; COPD (chronic obstructive pulmonary disease) with chronic bronchitis J44.9 and Chronic obstructive pulmonary disease, unspecified COPD type J44.9 [facility] [address] [address] [id number], [place] 234526479 Jan, Chronic obstructive pulmonary disease, u nspecified COPD type J44.9 [facility] [address] [id number], [place] 747282728 Dec, [facility] [address] [id number], [place] 323829294 Dec, [facility] [address] [place] [address] AVE [id number], [place] 135633955 Dec, COPD (chronic obstructive pulmonary dise ase) with chronic bronchitis J44.9 [facility] [address] [facility] [id number] 100[place] [address] Dec, [facility] [address] [facility] [id number] [address] [place] [address] Dec, [facility] [address] [id number], [place] [id number] Nov, [facility] [address] [id number], [place] 237174420 Nov, Benign essential hypertension I10 and CO PD (chronic obstructive pulmonary disease) with chronic bronchitis J44.[address] [id number], [place] 858911708 Nov, Hyperlipemia E78.5 ; Benign essential hy pertension I10 ; COPD (chronic obstructive pulmonary disease) with chronic bronchitis J44.9 ; Encounter for immunization Z23 ; Gastroesophageal reflux disease without esophagitis K21.9 and Chronic pain G89.29 [facility] [address] [id number], [place] 888354653 Oct, COPD (chronic obstructive pulmonary dise ase) with chronic bronchitis J44.9 and Chronic obstructive pulmonary disease, unspecified COPD type J44.9 [facility] [address] [id number], [place] 754546162 Oct, COPD (chronic obstructive pulmonary dise ase) with chronic bronchitis J44.9 and Chronic obstructive pulmonary disease, unspecified COPD type J44.9 [facility] [address] [id number], [place] 395413930 Oct, COPD (chronic obstructive pulmonary dise ase) with chronic bronchitis J44.9 and Chronic obstructive pulmonary disease, unspecified COPD type J44.9 [facility] [address] [id number], [place] 479395546 Oct, Benign essential hypertension I10 and Ne ck pain M54.2 [facility] [address] [id number], [place] 786461505 Sep, PAD (peripheral artery disease) I73.9 ; Claudication of both lower extremities I73.9 ; Bilateral carotid artery disease I77.9 ; Benign essential hypertension I10 ; Hyperlipemia E78.5 and Dyspnea on exertion R06.09 [facility] [address] [id number], [place] 132517559 Aug, Benign essential hypertension I10 ; Vannessa roesophageal reflux disease without esophagitis K21.9 and Cervical radiculopathy M54.12 [facility] [address] [id number], [place] [id number] Aug, Gastroesophageal reflux disease without esophagitis K21.9 [facility]SEThe [facility]kW[address] [address] [id number], [place] 424250103 Aug, COPD (chronic obstructive pulmonary dise ase) with chronic bronchitis J44.9 [facility] [address] [id number], [place] 527005021 Jul, [facility] [address] [id number], [place] 011431882 Jul, Benign essential hypertension I10 [facility] [address] [id number], [place] 288715320 Jul, [facility]The [facility]kW[address] [id number], [place] 733169774 Jul, COPD (chronic obstructive pulmonary dise ase) with chronic bronchitis J44.9 [facility] [address] [id number], [place] 275894168 Jul, Neck pain M54.2 [facility] [address] [id number], [place] 595305135 Jun, Claudication of both lower extremities I 73.9 ; PAD (peripheral artery disease) I73.9 ; Bilateral carotid artery disease I77.9 ; CAD (coronary artery disease) I25.10 ; Tobacco abuse Z72.0 ; Benign essential hypertension I10 ; Hyperlipemia E78.5 and Non-rheumatic mitral valve stenosis I34.[address] [facility] [address] [id number] [place] 947905198 Jun, Chronic obstructive pulmonary disease, u nspecified COPD type J44.[address] [facility] [address] [id number] [place] 846787494 May, [facility] [address] [id number] [place] 130064408 May, Chronic obstructive pulmonary disease, u nspecified COPD type J44.9 [facility] [address] [id number] [place] 603100365 May, Neck pain M54.2 ; Chronic obstructive pu lmonary disease, unspecified COPD type J44.9 and Cervical radiculopathy M54.[address] [facility] [address] [id number] [place] [id number] May, [facility] [address] [id number] [place] 913538275 Apr, [facility] [address] [id number] [place] [id number] Apr, Gastroesophageal reflux disease without esophagitis K21.[address] [facility] [address] [id number] [place] [id number] Apr, COPD (chronic obstructive pulmonary dise ase) with chronic bronchitis J44.[address] [facility] [address] [id number] [place] 968335260 Apr, [facility] [address] [id number] [place] 838398248 Apr, [facility] [address] [id number] [place] 623181144 Apr, COPD (chronic obstructive pulmonary dise ase) with chronic bronchitis J44.9 ; Benign essential hypertension I10 ; Tobacco abuse counseling Z71.6 and Hyperlipemia E78.[address] [facility] [address] [id number] [place] 208920397 February, COPD (chronic obstructive pulmonary dise ase) with chronic bronchitis J44.[address] [facility] [address] [id number] [place] [id number] Jan, [facility] [address] [id number], [place] 183084856 Jan, COPD (chronic obstructive pulmonary dise ase) with chronic bronchitis J44.[address] [facility] [address] [id number], [place] 200066038 Oct, COPD (chronic obstructive pulmonary dise ase) with chronic bronchitis J44.[address] [facility] [address] [id number], [place] 561372236 Oct, Winter itch L29.[address] [facility] [address] [id number], [place] 232177839 Oct, COPD (chronic obstructive pulmonary dise ase) with chronic bronchitis J44.9 ; Benign essential hypertension I10 ; Tobacco abuse Z72.0 and Gastroesophageal reflux disease without esophagitis K21.9 [facility] [address] [id number], [place] 736137291 Sep, Benign essential hypertension I10 [address] [address] [id number], [place] [id number] Aug, [facility] [address] [id number], [place] 753635645 Jul, [facility] [address] [id number], [place] 927185012 Apr, [facility] [address] [id number], [place] 094245479 Apr, Abdominal bloating R14.0 ; Fatty liver K 76.0 ; Diverticulosis of intestine without bleeding, unspecified intestinal tract location K57.90 ; Chronic obstructive pulmonary disease, unspecified COPD type J44.9 and Benign essential hypertension I10 [address] [id number], [place] 583411114 Apr, Mild early onset dysthymic disorder, in partial remission, with melancholic features, 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 [facility] [address] [id number], [place] 650049451 Mar, Abdominal muscle strain, initial encount er S39.011A [facility] [address] [id number], [place] 281757121 Jan, Pancreatitis K85.9 ; Abdominal bloating R14.0 ; Chronic bronchitis J42 and Chronic pain G89.29 [facility] [address] [id number], [place] [id number] Nov, [facility] [address]kW[facility]NER[address] [facility]VMoody [id number] [place] [address] [id number] Nov, [facility] [address] [id number], [place] 895086270 Nov, Chronic bronchitis J42 ; Tobacco abuse Z 72.0 and Tobacco abuse counseling Z71.6 [facility] [address] [place] [address] AVE [id number], [place] 645511797 Oct, [facility] [address]kW[facility]NER[address] [id number], [place] [id number] Oct, Chronic bronchitis J42 ; Tobacco abuse Z 72.0 and Benign essential hypertension I10 [facility] [address] [place] [address] AVE [id number], [place] 098949882 Oct, Chronic bronchitis J42 ; Tobacco abuse Z 72.0 ; Tobacco abuse counseling Z71.6 ; Benign essential hypertension I10 and Hyperlipemia E78.5 [facility] [address] [facility] [id number] [address] [place] [address] Sep, [facility] [address] [id number], [place] 210050165 Jul, [facility] [address] [facility] [id number] [address] [place] [address] Jul, Essential (primary) hyperten aida I10 [place] [id number] [facility] [id number] [address] [place] [address] Jul, [facility] [address] [facility] [address] [id number], [place] 730321271 Jul, [facility] [address] [facility] [address] [id number], [place] 736689080 Jun, Benign essential hypertension 401.1 ; Ge neralized edema 782.3 ; Chronic pain 338.29 and Hyperlipemia 272.4 [facility] [address] [place] [address] AVE [id number], [place] 748990853 May, Upper respiratory infection 465.9 and Co ugh 786.[address] [id number] [place] [address] [id number] Mar, Upper respiratory infection 465.9 ; Toba management accountant abuse 305.1 and Cough 786.2 [facility] [address] [place] [address] AVE [id number], [place] 685684686 February, [facility] [address] [facility] [address] [id number], [place] 964020186 February, Status post bilateral carotid endarterec vito V45.89 ; CAD (coronary artery disease) 414.00 ; Benign essential hypertension 401.1 ; Hyperlipemia 272.4 ; Tobacco abuse 305.1 ; Tobacco abuse counseling V65.42 and Chronic bronchitis 491.9 [facility] [address] [place] [id number] [address] [place] [address] Jan, [facility] [address] [place] [id number] [address] [place] [phone] Jan, [facility] [address] [place] [address] Dec, [facility] [address] [place] [id number] [address] [place] [address] Dec, [facility] [address] [place] [id number] [address] [place] [address] Nov, [facility] [address] [id number] [address] [place] [address], [place] [address] Nov, 2014 [facility] [address] [id number] [address] [place] [address], [place] [address] Nov, 2014 [facility] [address] [id number] [address] [place] [address], [place] [address] Nov, 2014 [facility] [address] [id number] [address] [place] [address], [place] [address] Nov, 2014 [facility] [address] [id number] [address] [place] [address], [place] [address] Nov, 2014 [facility] [address] [id number] [address] [place] [address], [place] [address] Nov, 2014 [facility] [address] [id number] [address] [place] [address], [place] [address] Nov, [facility] [address] [id number] [address] [place] [address], [place] [address] Nov, [facility] [address] [id number] [address] [place] [address], [place] [address] Oct, [facility] [address] [id number] [address] [place] [address], [place] [address] Oct, [facility] [address] [id number] [address] [place] [address], [place] [address] Oct, [facility] [address] [id number] [address] [place] [address], [place] [address] Oct, [facility] [address] [id number] [address] [place] [address], [place] [address] Oct, [facility] [address] [id number] [address] [place] [address], [place] [address] Oct, [facility] [address] [id number] [address] [place] [address], [place] [address] Oct, [facility] [address] [id number] [address] [place] [address] [place] [address] Oct, [facility] [address] [id number] [address] [place] [address], [place] [address] Oct, [facility] [address] [id number] [address] [place] [address], [place] [address] Oct, [facility] [address] [id number] [place] [id number] Oct, [facility] [address] [id number] [address] [place] [address], [place] [address] Oct, [facility] [address] [id number] [address] [place] [address], [place] [address] Sep, [facility] [address] [id number] [address] [place] [address], [place] [address] Sep, [facility] [address] [id number] [address] [place] [address], [place] [address] Aug, [facility] [address] [id number] [address] [place] [address], [place] [address] Aug, [facility] [address] [id number] [address] [place] [address], [place] [address] Aug, [facility] [address] [id number] [address] [place] [address], [place] [address] Aug, [facility] [address] [id number] [address] [place] [address], [place] [address] Jul, [facility] [address] [id number] [address] [place] [address], [place] [address] Jul, [facility] [address] [id number] [address] [place] [address], [place] [address] Jun, [facility] [address] [id number] [address] [place] [address], [place] [address] Jun, [facility] [address] [id number] [address] [place] [address], [place] [address] May, [facility] [address] [id number] [address] [place] [address], [place] [address] May, [facility] [address] [id number] [address] [place] [address], [place] [address] May, [facility] [address] [id number] [address] [place] [address], [place] [address] May, [facility] [address] [id number] [address] [place] [address], [place] [address] Jan, [facility] [address] [id number] [address] [place] [address], [place] [address] Jan, [facility] [address] [id number] [address] [place] [address], [place] [address] Nov, [facility] [address] [id number] [address] [place] [address], [place] [address] Nov, [facility] [address] [id number] [address] [place] [address], [place] [address] Nov, [facility] [address] [id number] [address] [place] [address], [place] [address] Nov, [facility] [address] [id number] [address] [place] [address], [place] [address] Nov, [facility] [address] [id number] [address] [place] [address], [place] [address] Nov, [facility] [address] [id number] [address] [place] [id number] Nov, [facility] [address] [id number] [address] [place] [address], [place] [address] Nov, [facility] [address] [id number] [address] [place] [address], [place] [address] Nov, [facility] [address] [id number] [address] [place] [address], [place] [address] Nov, [facility] [address] [id number] [address] [place] [id number] Oct, [facility] [address] [id number] [address] [place] [address], [place] [address] Oct, [facility] [address] [id number] [address] [place] [address], [place] [address] Oct, [facility] [address] [id number] [address] [place] [address], [place] [address] Oct, [facility] [address] [id number] [address] [place] [address], [place] [address] Sep, [facility] [address] [id number] [address] [place] [address], [place] [address] Sep, [facility] [address] [id number] [address] [place] [address], [place] [address] Aug, [facility] [facility] [address] [id number] [address] [place] [address], [place] [address] Aug, [facility] [address] [id number] [address] [place] [address], [place] [address] Aug, [facility] [address] [id number] [address] [place] [id number] Aug, [facility] [address] [id number] [address] [place] [address], [place] [address] Aug, [facility] [address] [id number] [address] [place] [id number] Aug, [facility] [address] [id number] [address] [place] [id number] Aug, [facility] [address] [id number] [address] [place] [id number] Aug, [facility] [address] [id number] [address] [place] [address], [place] [address] Jul, [facility] [address] [id number] [address] [place] [address], [place] [address] Jul, [facility] [address] [id number] [address] [place] [address], [place] [address] Jul, [facility] [address] [id number] [address] [place] [address], [place] [address] Jul, [facility] [address] [id number] [address] [place] [address], [place] [address] Jul, [facility] [address] [id number] [address] [place] [address], [place] [address] Jun, [facility] [address] [id number] [address] [place] [address], [place] [address] May, [facility] [address] [id number] [address] [place] [address], [place] [address] Apr, [facility] [address] [id number] [address] [place] [address], [place] [address] February, [facility] [address] [id number] [address] [place] [address], [place] [address] Jan, [facility] [address] [id number] [address] [place] [address], [place] [address] Jan, [facility] [address] [id number] [address] [place] [address], [place] [address] Dec, [facility] [address] [id number] [address] [place] [address], [place] [address] Dec, [facility] [address] [id number] [address] [place] [address], [place] [address] Dec, [facility] [address] [id number] [address] [place] [address], [place] [address] Nov, [facility] [address] [id number] [address] [place] [address], [place] [address] Nov, [facility] [address] [id number] [address] [place] [address], [place] [address] Nov, [facility] [address] [id number] [address] [place] [address], [place] [address] Nov, IMMUNIZATIONS No Known Immunizations SOCIAL HISTORY [...] chronic neck and back pain Medical History [place] x's 2 1996 and 2011 Medical History [...] 02/[address] [facility], [facility],-minimal RCA blockage <20% 1996 [facility], mild nonspecific bulbar duodenitis 1996 Surgical History carotid endarterectomy, right- [facility] 01/14 015 Surgical History Heart cath with PTCA 2013 Surgical History Colonoscopy- tubular adenoma , hyperplastic polyp- repeat Colonoscopy 12/2016 Surgical History Bypass Surgery- CABG and Pacemaker 06/06 Hospitalization History heart attack 1996 Hospitalization History slurred speech, fever, left arm pain Sharifa Shah February 2015 Hospitalization History Pancreatitis 12/2015 Hospitalization History CABG 05/2018
--- OUTSIDE RECORDS SUMMARY | 2020-04-06 06:48 | XMS REPORT ---
Author Author [employer] broadband [employer] [facility] [place] [facility] [employer] Address [address] [address] Care Team Providers [employer] Driver Name Role Phone TIFFANIE CAMPOS TRAIN GATE ATTENDANT Unavailable [facility] Unavailable [phone] CAMPOS, TIFFANIE Unavailable Unavailable AINSLEY HERNANDEZ Unavailable MICHAEL HERNANDEZA K Unavailable CAMPOS, TIFFANIE Gill TRAIN GATE ATTENDANT Unavailable CAMPOS, TIFFANIE Unavailable ALLA VALDIVIA Unavailable CAMPOS, TIFFANIE Unavailable BAIMA, KIEL Unavailable CAMPOS, TIFFANIE Unavailable CAMPOS, TIFFANIE Unavailable CAMPOS, TIFFANIE Unavailable CAMPOS, TIFFANIE Unavailable CAMPOS, TIFFANIE Unavailable BAIMA, KIEL Unavailable CAMPOS, TIFFANIE Unavailable CAMPOS, TIFFANIE Unavailable CAMPOS, TIFFANIE Unavailable CAMPOS, TIFFANIE Unavailable CAMPOS, TIFFANIE Unavailable CAMPOS, TIFFANIE Unavailable CAMPOS, TIFFANIE Unavailable CAMPOS, TIFFANIE Unavailable BAIMA, KIEL Unavailable BAIMA, KIEL Unavailable CAMPOS, TIFFANIE Unavailable CAMPOS, TIFFANIE Unavailable CAMPOS, TIFFANIE Unavailable CAMPOS, TIFFANIE Unavailable CAMPOS, TIFFANIE Unavailable CAMPOS, TIFFANIE Unavailable CAMPOS, TIFFANIE Unavailable KRZYSZTOFMARY MARJ Unavailable Unavailable BAIMARIA ALEJANDRA, KIEL Unavailable CAMPOS, TIFFANIE Unavailable CAMPOS, TIFFANIE Unavailable CAMPOS, TIFFANIE Unavailable CAMPOS, TIFFANIE Unavailable NAEL ORELLANA Unavailable TERRA MCADAMS FACC, COBY AGUILERAP CCDS Unavailable Unavailabl e ROSA MARIA MOLINA DO Unavailable Unavailable CAMPOS, TIFFANIE Unavailable CAMPOS, TIFFANIE Unavailable CAMPOS, TIFFANIE Unavailable CAMPOS, TIFFANIE Unavailable CAMPOS, TIFFANIE Unavailable CAMPOS, TIFFANIE Unavailable CAMPOS, TIFFANIE Unavailable Migration, Doctor Unavailable Unavailable Migration, Doctor Unavailable Unavailable Migration, Doctor Unavailable Unavailable CAMPOS, TIFFANIE J Unavailable Unavailable CAMPOS, TIFFANIE Unavailable CAMPOS, TIFFANIE Unavailable CAMPOS, TIFFANIE Unavailable CAMPOS, TIFFANIE Unavailable SIRI Bangura Unavailable CAMPOS, TIFFANIE Unavailable Migration, Doctor Unavailable Unavailable CAMPOS, TIFFANIE Unavailable Migration, Doctor Unavailable Unavailable ALLA VALDIVIA Unavailable CAMPOS, TIFFANIE Unavailable CAMPOS, TIFFANIE Unavailable CAMPOS, TIFFANIE Unavailable CAMPOS, TIFFANIE Unavailable CAMPOS, TIFFANIE Unavailable KIEL MURPHY Unavailable Unavailable MARIO MCADAMS, DOROTA PORTER Unavailable Unavailable TRACY MANN, ROSA MARIA D Unavailable Unavailable COBY MEZA MA Unavailable Unavailable YANET IVERSON MD Unavailable Unavailable AINL MCADAMS, TIMOTEO Gill Unavailable Unavailable TIMOTEO MA MD Unavailable Unavailable CAMPOS, TIFFANIE Unavailable Migration, Doctor Unavailable Unavailable CAMPOS, TIFFANIE Unavailable CAMPOS, TIFFANIE Unavailable CAMPOS, TIFFANIE Unavailable CAMPOS, TFIFANIE Unavailable Migration, Doctor Unavailable Unavailable Migration, Doctor Unavailable Unavailable CAMPOS, TIFFANIE Unavailable CAMPOS, TIFFANIE Unavailable Unavailable Unavailable CAMPOS, TIFFANIE Unavailable CAMPOS, TIFFANIE Unavailable CAMPOS, TIFFANIE Unavailable CAMPOS, TIFFANIE Unavailable CAMPOS, TIFFANIE Unavailable Unavailable Unavailable Unavailable Unavailable Unavailable Unavailable Unavailable Unavailable Allergies Normalized Allergy Reported Date of Reaction(s) Care Provider Facility Allergy Type classification allergen Allergy Onset DA (23 Unclassified No Known Drug 09-01-2013 - no information TIFFANIE Not Available sources.) Allergies CAMPOS (65163) Medications Current Medications Medication Ingredient Drug Dose Dates Status Sig Sig Care Class(es) (Normalized) (Original) Provid er no Albuterol no 2 11-16-19 Active take 2 Albuterol 90 no information 90 information puff(s 15 puff(s) by mcg/actua helen name (1 source.) mcg/actuati ) inhalation n 2 puffs by on four times Inhalation daily as route 4 needed for times per cough day PRN as needed for cough/wheeze /shortness of breath Nov, Active carvedilol carvedilol alpha-Adren 6.25 Active no Carvedilol no 6.25 mg Translation ergic mg information 6.25 MG nam e oral tablet s: [ Buck, Orally 2 (2 Carvedilol beta-Adrene times a day sources.) 3.125 MG, rgic 1 tablet 12h carvedilol Buck 90 days 6.25 MG Active Oral Tablet, Carvedilol 6.25 MG] 3.125 mg Active no Carvedil no name inform ol 3.125 ation MG Orally 2 times a day 1 tablet 12h Active ezetimibe ezetimibe Dietary 10 mg 11-13-19 Active take 1 Zetia 10 mg no 10 mg oral Translation Cholesterol 15 tablet by 1 tablet by name tablet (1 s: [ Zetia Absorption mouth once Oral route 1 source.) 10 mg] Inhibitor daily time per day Oct, Active meloxicam meloxicam Nonsteroida 7.5 mg 06-22-20 Active take 1 Mo bic 7.5 mg no 7.5 mg oral Translation l 14 tablet by take 1 na me tablet (1 s: [ Mobic Anti-inflam mouth once Tablet by source.) 7.5 mg] matory Drug daily as Oral route 1 needed for time per day pain PRN pain Jun, Active sulfamethox Sulfamethox Dihydrofola 12-01-19 Active take 1 Bactr im DS no azole 800 azole / te 15 tablet by 800-160 mg name mg / Trimethopri Reductase mouth every take 1 trimethopri m Inhibitor twelve hours tablet by m 160 mg Translation Antibacteri Oral route oral tablet s: [ al, every 12 (1 source.) Bactrim DS Sulfonamide hours for 10 800-160 mg] Antimicrobi days Nov, Active Completed/Discontinued Medications Medication Ingredient Drug Dose Dates Status Sig Sig Care Class(es) (Normalized) (Original) Provid er no Albuterol no 17 g 02-20-20 Complete take 17 g by Al buterol (no information (Proventil) information 18 d inhalation (Pr oventil) phone) (2 17 Gm Inh, four times 17 Gm Inh, 2 sources.) 2 Puff daily as Puff Respiratory needed Respiratory (Inhalation (Inhalation) ) Four Times Daily as needed for Shortness Of Breath Discontinued no Albuterol no 04-23-20 Complete no Albuterol (no information Sulfate information 18 d information Sulfat e phone) (2 (Proair (Proair Hfa) sources.) Hfa) 1 Puff 1 Puff Puff, Puff, 2 2 Puff Puff Respiratory Respiratory (Inhalation) (Inhalation Twice A Day ) Discontinued no Albuterol no 1 Complete take 1 Albuterol (no information Sulfate information puff(s d puff(s) by Sulfate phone) (2 (Ventolin ) inhalation (Ventolin sources.) Hfa) 1 Puff four times Hfa) 1 Puff Puff daily as Puff 2 Puff needed RESPIRATORY (INHALATION) Four Times Daily as needed for Shortness Of Breath 1 PUFF = 90 MCG no [place]-3/Dha no 1000 Complete take 1 [place]-3/Dha/ (n o information /Epa/Fish information mg d capsule by Epa/Fi sh Oil phone) (2 Oil (Fish mouth once (Fish Oil sources.) Oil 1,000 daily, then 1,000 Mg Mg Softgel) take 1 Softgel) 1 1 Each capsule by Each Capsule Capsule mouth 1,000 Mg ORAL Daily no [place]-3/Dha no 02-20-20 Complete no [place]-3/Dha/ (no information /Epa/Fish information 18 d information Epa/ Fish Oil phone) (2 Oil (Fish (Fish Oil sources.) Oil 500 Mg 500 Mg Softgel) 1 Softgel) 1 Each Each Capsule, Capsule, 500 500 Mg Oral Mg Oral Twice A Day Discontinued no Omeprazole no 20 mg 07-10-20 Complete take 1 Omepraz ole (no information (Prilosec) information 17 d capsule by (Naheed losec) phone) (2 20 Mg mouth once 20 Mg sources.) Capsule.dr, daily, then Capsule.dr, 20 Mg Oral take 1 20 Mg Oral capsule by Daily mouth Discontinued no Tiotropium no 02-20-20 Complete no Tiotropium (no information Br/Olodater information 18 d information Br /Olodatero phone) (2 ol Hcl l Hcl sources.) (Stiolto (Stiolto Respimat Respimat Inhal Inhal Calera) Calera) 4 Gm 4 Gm Mist.inhal, Mist.inhal, 2 Puff 2 Puff Respiratory Respiratory( (Inhalation Inhalation) ) Daily Discontinued varenicline varenicline Partial 0.5 mg 05-17-20 Suspende no Chantix 1 MG no 1 mg oral Translation Cholinergic 18 - d information Oral ly Twice name tablet (2 s: [ Nicotinic 20 a day- x12 sources.) Chantix 1 Agonist 18 weeks 1/2 MG] tablet daily x 3 days, then 1/2 tablet twice daily x 3 days, then 1 tablet twice daily May, Aug, 90 days Not-Taking Problems Active Problems Problem Normalized Date Last Normalized Normalized Provider Fa cility Classification Problem(s) Recorded Problem Problem Sta tus Duration Other and Benign Episodic Active ROSA MARIAMARCIE MOLINA [facility] Via unspecified neoplasm of [facility] benign ascending Hospital - neoplasm (7 colon [place] sources.) ([address]50) Other and Benign Episodic Active ROSA MARIAMARCIE MOLINA , [facility] Via unspecified neoplasm of [facility] benign transverse Hospital - neoplasm (13 colon [place] sources.) (44852) Unclassified Chronic pain Chronic Active Emma OLMOS ot Available (20 sources.) Translations: (53919) [ Chronic pain, OBSTRUCTIVE SLEEP APNEA (ADULT) (PEDIATR, Chronic pain, Other chronic pain, Other chronic pain] Coronary Coronary Episodic Active Matthew OLMOS Avmaureen lable atherosclerosi angioplasty (73618) s and other status heart disease Translations: (12 sources.) [ ATHSCL HEART DISEASE OF [place] CORONARY , OLD MYOCARDIAL INFARCTION, CHRONIC TOTAL OCCLUSION OF CORONARY [place]] Other lower Cough Episodic Active [facility] respiratory Translations: BETH [address] [facility] disease (20 [ - Cough of [facility] sources.) 786.2, - Cough [place] (33379) 786.2] Other Encounter for Episodic Active ROSA MARIA MOLINA [facility] Via screening for screening for DO [place] suspected malignant Hospital - conditions neoplasm of [place] (not mental colon (65074) disorders or infectious disease) (6 sources.) Esophageal Esophagitis, Episodic Active ROSA MARIA MOLINA , [facility] Via disorders (6 unspecified DO [place] sources.) [facility] (68252) Other custodial Episodic Active ROSA MARIAMARCIE MOLINA , [facility] Via aftercare (7 (current) use [place] sources.) of [facility] s/antiplatelet (99340) s Other custodial Episodic Active COBY POWER [facility] Via aftercare (8 (current) use MA FSCAI [place] sources.) of aspirin [facility] (07032) Other Long-term Episodic Active ALI TERRA , [facility] Via aftercare (6 (current) use MA PATRICIAAI [place] sources.) of other Hospital - medications [place] (62274) Residual Obstructive Chronic Active TIMOTEO CONLEYN , [facility] V ia codes; sleep apnea MD [facility] unclassified (adult) Hospital - (3 sources.) (pediatric) [place] (01688) Occlusion or Occlusion and Chronic Active ALI TERRA , [facility] Via stenosis of stenosis of MA FSCAI Acta precerebral bilateral Hospital - arteries (8 carotid [place] sources.) arteries (24264) Translations: [ OCCLUSION AND STENOSIS OF UNSPECIFIED CA] Other Other long Episodic Active ALI TERRA , [facility] Via aftercare (20 term (current) MA FSCAI [place] sources.) drug therapy [facility] (57970) Residual Other Episodic Active KIEL BAIMA [facility] Via codes; specified , INSURANCE MANAGER [facility] unclassified postprocedural Hospital - (3 sources.) states [place] (62204) Other Peripheral Chronic Active ALI TERRA , [facility] Via circulatory vascular [place] PATRICIAAI [place] disease (3 angioplasty Hospital - sources.) status with [place] implants and (59571) grafts Other and Personal Episodic Active ROSA MARIA MOLINA , [facility] Via unspecified history of DO [place] benign colonic polyps Hospital - neoplasm (4 [place] sources.) (52404) Other Personal Episodic Active ALI ETRRA , [facility] Via circulatory history of MA FSCAI [facility] disease (2 transient Hospital - sources.) ischemic [place] attack (TIA), (51837) and cerebral infarction without residual deficits Other and Polyp of colon Episodic Active ROSA MARIA MOLINA , [facility] Via unspecified DO [place] benign Hospital - neoplasm (6 [place] sources.) (73110) Other lower Shortness of Episodic Active ALI TERRA , [facility] Via respiratory breath MA FSCAI [place] disease (5 Hospital - sources.) [place] (06587) Spondylosis; Spondylosis Chronic Active TIFFANIE Communi ty intervertebral without [facility] [address] [facility] disc myelopathy or of [place] disorders; radiculopathy, [place] (85154) other back cervical problems (20 region sources.) Translations: [ - Facet arthritis of cervical region M47.812, Degenerative disc disease, cervical, Degenerative disc disease, cervical, - Degenerative disc disease, cervical M50.30] Acute ST elevation Chronic Active COBY POWER , [facility] Vi a myocardial (STEMI) MA [facility] infarction (1 myocardial Hospital - source.) infarction [place] involving (67396) other coronary artery of inferior wall Administrative Tobacco abuse Episodic Active TIFFANIE Com munity /social counseling [facility] [address] Health Center admission (20 Translations: of [facility] sources.) [ - Tobacco [place] (12105) abuse counseling Z71.6, - Tobacco abuse counseling Z71.6] Substance-rela Tobacco Chronic Active YANET Not Avai lable erin disorders dependence MD ZAYRA (93611) (23 sources.) syndrome Translations: [ Tobacco abuse, Tobacco abuse, NICOTINE DEPENDENCE, CIGARETTES, UNCOMPL] Heart valve Undiagnosed Episodic Active COBY POWER , Not A vailable disorders (12 cardiac [facility] (09494) sources.) murmurs Translations: [ MITRAL/AORTIC RICHIE INSUFF, TRICUSPID VALVE DISEASE] Unclassified no information no information Active AINSLEY HERNANDEZ Via [facility] (16 sources.) [address] [facility] (97128) Past or Other Problems Problem Normalized Date Last Normalized Normalized Provider Fa cility Classification Problem(s) Recorded Problem Problem Sta tus Duration Mood disorders Major no information no information COBY ROMANO D , Not Available (13 sources.) depressive [facility] (47327) disorder, single episode, unspecified Unclassified Other no information no information no name no information (2 sources.) specified postprocedural states Procedures Procedure Normalized Procedure Procedure Result Performer Facility Date 11-06-2013 Assay of magnesium no information no name [facility] (74768) 11-06-2013 Assay of thyroid no information no name [facility] stimulating hormone [facility] (04577) 04-23-2018 Bidirectional no information COBY ZUNIGA CCDS TERRA Via [facility] wave [place] (11557) ultrasonic Doppler 06-10-2014 Cath plmt l hrt & arts no information no name [facility] w/njx & angio img s&i [facility] (27060) 07-15-2018 Collection venous no information no name [facility] blood venipuncture [facility] (90938) 11-06-2013 Collection venous no information no name [facility] blood venipuncture [facility] (46295) 11-06-2013 Comprehensive no information no name [facility] metabolic panel [facility] (26770) 12-01-2014 Cul bact xcpt urine no information no name [facility] blood/stool aerobic [facility] (83496) 11-05-2013 Dup-scan xtr veins no information no name [facility] complete bilateral [facility] (71335) 06-10-2014 Duplex scan no information no name [facility] preble extracranial art compl [facility] (66820) 11-05-2013 Echo tthrc r-t 2d no information no name [facility] w/wom-mode compl [facility] spec&colr d [place] (71779) 04-23-2018 Echocardiography no information ALI FACP CCDS HAMMA D Via [facility] (14161) 03-29-2018 Echocardiography no information TIFFANIE Gill APRN ADK INS Via [facility] (41737) 04-23-2018 Electrocardiographic no information ALI FACP CCDS H AMMAD Via [facility] procedure [place] (05868) 09-23-2018 Hemoglobin no information no name [facility] glycosylated a1c [facility] (89604) 12-01-2014 Incision & drainage no information no name [facility] abscess simple/single [facility] (16155) 07-15-2018 LAB NOT BILLED BY no information no name [facility] (76286) 11-06-2013 Lipid panel no information no name [facility] (09229) 08-05-2014 Noninvasive ear/pulse no information no name [facility] oxim[facility] single deter [facility] (32648) 06-10-2014 Noninvasive ear/pulse no information no name [facility] oximetry single deter [facility] (43530) 12-10-2013 Noninvasive ear/pulse no information no name [facility] oximetry single deter [facility] (21267) 04-25-2018 Radionuclide no information KIEL cantu [facility] myocardial perfusion [place] (35998) study 11-17-2013 Therapeutic no information no name [facility] prophylactic/dx [facility] injection subq/im [place] (09173) 04-23-2018 Transesophageal no information ALI FACP CCDS TERRA Via [facility] echocardiography [place] (49776) 04-23-2018 Transesophageal no information ALI FACP CCDS TERRA Via [facility] echocardiography with [place] (61743) contrast 11-17-2013 Vitamin b12 injection no information no name [facility] (56918) Immunizations Normalized Immunization Date Notes Care Provider Facili ty Immunization pneumococcal 11-29-2017 no information no name [facility] polysaccharide [facility] vaccine, 23 valent - [facility] (37618) Results Test Name Value Interpretation Reference Range Date Time Fa cility (Normalized) (Normalized) (Medline Reference) a1c (in house) on null Hemoglobin 5.8 % (no code) 0 - 5.7 % [facility] A1c/Hemoglobin.t [facility] fraction (Bld) (08525) A1C (IN HOUSE) 0932 (no code) [facility] (83936) A1C (IN HOUSE) 07/04 (no code) [facility] (25573) laboratory on 2020-03-12 Albumin 4.2 g/dL (N) 3.4 - 5.4 g/dL [facility] [Mass/Vol] [facility] (86891) Albumin/Globulin 1.7 {ratio} (N) 1 - 2.5 {ratio} Comm [facility] [Mass ratio] [facility] (10594) ALP [Catalytic 72 U/L (N) 44 - 147 U/L [facility] activity/Vol] [facility] (28263) ALT [Catalytic 17 U/L (N) 4 - 40 U/L [facility] activity/Vol] [facility] (61718) AST [Catalytic 37 U/L (H) 10 - 34 U/L [facility] activity/Vol] [facility] (63952) Bilirubin 0.5 mg/dL (N) 0.1 - 1.2 mg/dL [facility] [Mass/Vol] [facility] (13677) Calcium 8.8 mg/dL (N) 8.5 - 10.2 mg/dL [facility] [Mass/Vol] [facility] (96656) Chloride 102 mmol/L (N) 95 - 106 mmol/L [facility] [Moles/Vol] [facility] (62498) Cholesterol 150 mg/dL (N) 180 - 200 mg/dL [facility] [Mass/Vol] [facility] (87444) Cholesterol in 35 mg/dL (L) [facility] HDL [Mass/Vol] [facility] (23707) Cholesterol in 81 mg/dL (N) 0 - 100 mg/dL [facility] LDL [Mass/Vol] [facility] (77098) Cholesterol non 115 mg/dL (N) [facility] HDL [Mass/Vol] [facility] (43357) Cholesterol.tota 4.3 {ratio} (N) [facility] l/Cholesterol in [facility] HDL [Mass ratio] [facility] (53278) CO2 [Moles/Vol] 30 mmol/L (N) 23 - 29 mmol/L [facility] (29907) Creatinine 1.07 mg/dL (N) [facility] [Mass/Vol] [facility] (76184) GFR/1.73 sq M 85 (N) 90 - 120 [facility] predicted among mL/min/{1.73_m2} mL/min/{1.73_m2} [place] MDRD [facility] (S/P/Bld) [Vol (24530) rate/Area] GFR/1.73 sq 73 (N) 90 - 120 [facility] M.predicted MDRD mL/min/{1.73_m2} mL/min/{1.73_m2} [facility] (S/P/Bld) [Vol [facility] rate/Area] (80674) Globulin (S) 2.5 g/dL (N) 2 - 3.5 g/dL [facility] [Mass/Vol] [facility] (87776) Glucose 99 mg/dL (N) 60 - 125 mg/dL [facility] [Mass/Vol] [facility] (23128) Potassium 3.9 mmol/L (N) 3.7 - 5.2 mmol/L [facility] [Moles/Vol] [facility] (15181) Protein 6.7 g/dL (N) 6.4 - 8.3 g/dL [facility] [Mass/Vol] [facility] (62649) Sodium 142 mmol/L (N) 135 - 145 mmol/L [facility] [Moles/Vol] [facility] (68277) Triglyceride 244 mg/dL (H) 0 - 150 mg/dL [facility] [Mass/Vol] [facility] () Urea nitrogen 20 mg/dL (N) 7 - 20 mg/dL [facility] [Mass/Vol] [facility] () Urea NOT APPLICABLE (no code) [facility] nitrogen/Creatin [facility] [Mass ratio] [facility] () not yet categorized on 2020-02-03 Exp date 11/2020 (no code) [facility] () Lot [id number]~[id number] (no code) [facility] () laboratory on 2019-08-26 Albumin 4.6 g/dL (N) 3.4 - 5.4 g/dL [facility] [Mass/Vol] [facility] () Albumin/Globulin 1.7 {ratio} (N) 1 - 2.5 {ratio} Comm [facility] [Mass ratio] [facility] () ALP [Catalytic 61 U/L (N) 44 - 147 U/L [facility] activity/Vol] [facility] () ALT [Catalytic 26 U/L (N) 4 - 40 U/L [facility] activity/Vol] [facility] () AST [Catalytic 47 U/L (H) 10 - 34 U/L [facility] activity/Vol] [facility] () Basophils (Bld) 0.032 10*3/uL (N) 0 - 0.3 10*3/uL [facility] [#/Vol] [facility] (19953) Basophils/100 0.5 % (N) 0.5 - 1 % [facility] WBC (Bld) [facility] (28456) Bilirubin 0.6 mg/dL (N) 0.1 - 1.2 mg/dL [facility] [Mass/Vol] [facility] (33790) Calcium 9.5 mg/dL (N) 8.5 - 10.2 mg/dL [facility] [Mass/Vol] [facility] (25776) Chloride 100 mmol/L (N) 95 - 106 mmol/L [facility] [Moles/Vol] [facility] (83689) Cholesterol 179 mg/dL (N) 180 - 200 mg/dL [facility] [Mass/Vol] [facility] (69813) Cholesterol in 35 mg/dL (L) [facility] h HDL [Mass/Vol] [facility] (89747) Cholesterol in 105 mg/dL (H) 0 - 100 mg/dL [facility] LDL [Mass/Vol] [facility] (33383) Cholesterol non 144 mg/dL (H) [facility] HDL [Mass/Vol] [facility] (72001) Cholesterol.tota 5.1 {ratio} (H) [facility] l/Cholesterol in [facility] HDL [Mass ratio] [facility] (50602) CO2 [Moles/Vol] 33 mmol/L (H) 23 - 29 mmol/L [facility] (68965) Creatinine 1.13 mg/dL (N) [facility] h [Mass/Vol] [facility] (09426) Eosinophils 0.211 10*3/uL (N) 0.05 - 0.5 [facility] (Bld) [#/Vol] 10*3/uL [facility] (62387) Eosinophils/100 3.3 % (N) 1 - 4 % [facility] WBC (Bld) [facility] (15104) Erythrocyte 12.8 % (N) 11.6 - 14.6 % [facility] width (RBC) [facility] [Ratio] (73054) GFR/1.73 sq M 79 (N) 90 - 120 [facility] predicted among mL/min/{1.73_m2} mL/min/{1.73_m2} [facility] [place] MDRD [facility] (S/P/Bld) [Vol (17373) rate/Area] GFR/1.73 sq 68 (N) 90 - 120 [facility] th M.predicted MDRD mL/min/{1.73_m2} mL/min/{1.73_m2} [facility] (S/P/Bld) [Vol [facility] rate/Area] (89504) Globulin (S) 2.7 g/dL (N) 2 - 3.5 g/dL [facility] [Mass/Vol] [facility] (23190) Glucose 86 mg/dL (N) 60 - 125 mg/dL [facility] [Mass/Vol] [facility] (50391) Hematocrit (Bld) 47.2 % (N) 36.1 - 50.3 % [facility] [Volume [facility]] [facility] (12779) Hemoglobin (Bld) 15.9 g/dL (N) 12.1 - 17.2 g/dL [facility] [Mass/Vol] [facility] (44278) Lymphocytes 2.464 10*3/uL (N) 0.9 - 2.9 [facility]th (Bld) [#/Vol] 10*3/uL [facility] (13464) Lymphocytes/100 38.5 % (N) 20 - 40 % [facility] WBC (Bld) [facility] (78141) MCH (RBC) 30.1 pg (N) 27 - 31 pg [facility] th [Entitic mass] [facility] (85854) MCHC (RBC) 33.7 g/dL (N) 32 - 36 g/dL [facility] [Mass/Vol] [facility] (48395) MCV (RBC) 89.2 fL (N) 80 - 100 fL [facility] [Entitic vol] [facility] (92159) Monocytes (Bld) 0.557 10*3/uL (N) 0.3 - 0.9 [facility] Health [#/Vol] 10*3/uL [facility] (94228) Monocytes/100 8.7 % (N) 2 - 8 % [facility] WBC (Bld) [facility] (65007) Neutrophils 3.136 10*3/uL (N) 1.7 - 7 10*3/uL [facility] (Bld) [#/Vol] [facility] (69536) Neutrophils/100 49 % (N) 40 - 60 % [facility] WBC (Bld) [facility] (20816) Platelet mean 11.5 fL (N) 7.2 - 11.7 fL [facility] volume (Bld) [facility] [Entitic vol] [facility] (30383) Platelets (Bld) 166 10*3/uL (N) 150 - 450 [facility] [#/Vol] 10*3/uL [facility] (25279) Potassium 4.2 mmol/L (N) 3.7 - 5.2 mmol/L [facility] [Moles/Vol] [facility] (07738) Protein 7.3 g/dL (N) 6.4 - 8.3 g/dL [facility] [Mass/Vol] [facility] (19192) RBC (Bld) 5.29 10*6/uL (N) 4.2 - 6.1 [facility] lth [#/Vol] 10*6/uL [facility] (30657) Sodium 139 mmol/L (N) 135 - 145 mmol/L [facility] [Moles/Vol] [facility] (01791) Triglyceride 270 mg/dL (H) 0 - 150 mg/dL [facility] [Mass/Vol] [facility] (31754) TSH Qn 1.49 m[IU]/L (N) 0.4 - 4 m[IU]/L [facility] (41827) Urea nitrogen 20 mg/dL (N) 7 - 20 mg/dL [facility] [Mass/Vol] [facility] (64875) Urea NOT APPLICABLE (no code) [facility] nitrogen/Creatin [facility] [Mass ratio] [facility] (57287) WBC (Bld) 6.4 10*3/uL (N) 3.5 - 10.5 [facility] th [#/Vol] 10*3/uL [facility] (97590) other on 2018-09-23 Exp date 07/04 (no code) [facility] (21142) Lot [address] (no code) [facility] (80944) metabolic panel on 2018-09-23 HbA1c (Bld) 5.8 % (no code) 0 - 5.7 % [facility] [Mass fraction] [facility] (38370) venous blood hemoglobin measurement (mass/volume) on 2018-05-16 Hemoglobin (HGB) 15.2 g/dL (no code) 12.1 - 17.2 g/dL [facility] (20684) serum or plasma urea nitrogen/creatin ine mass ratio on 2018-05-16 BUN/Creatinine 16 mg/mg (no code) 6 - 22 mg/mg [facility] (31038) serum or plasma urea nitrogen measurement (mass/volume) on 2018-05-16 Urea nitrogen 18 mg/dL (no code) 7 - 20 mg/dL [facility] (58189) serum or plasma total bilirubin measurement (mass/volume) on 2018-05-16 Bilirubin 0.6 mg/dL (no code) 0.1 - 1.2 mg/dL [facility] (total) [facility] (72184) serum or plasma sodium measurement (moles/volume) on 2018-05-16 Sodium 139 mmol/L (no code) 135 - 145 mmol/L [facility] (11544) serum or plasma protein measurement (mass/volume) on 2018-05-16 Protein 7.0 g/dL (no code) 6.4 - 8.3 g/dL [facility] (91598) serum or plasma potassium measurement (moles/volume) on 2018-05-16 Potassium 4.1 mmol/L (no code) 3.7 - 5.2 mmol/L [facility] (52486) serum or plasma glucose measurement (mass/volume) on 2018-05-16 Glucose 86 mg/dL (no code) 60 - 125 mg/dL [facility] (68752) serum or plasma creatinine measurement with calculation of estimated glomerular filtration rate on 2018-05-16 eGFR (non-black) no information (no code) [facility] (02028) serum or plasma creatinine measurement (mass/volume) on 2018-05-16 Creatinine 1.14 mg/dL (no code) [facility] (05926) serum or plasma chloride measurement (moles/volume) on 2018-05-16 Chloride 102 mmol/L (no code) 95 - 106 mmol/L [facility] (49033) serum or plasma calcium measurement (mass/volume) on 2018-05-16 Calcium 9.4 mg/dL (no code) 8.5 - 10.2 mg/dL [facility] (90936) serum or plasma aspartate aminotransferase measurement (enzymatic activity/volume) on 2018-05-16 Aspartate 47 U/L (H) 10 - 34 U/L [facility] aminotransferase [facility] (AST) [place] (44879) serum or plasma anion gap determination (moles/volume) on 2018-05-16 Anion gap 8 mmol/L (no code) 3 - 11 mmol/L [facility] (97403) serum or plasma alkaline phosphatase measurement (enzymatic activity/volume) on 2018-05-16 Alkaline 56 U/L (no code) 44 - 147 U/L [facility] phosphatase [facility] (ALP) [place] (32967) serum or plasma albumin measurement (mass/volume) on 2018-05-16 Albumin 4.3 g/dL (no code) 3.4 - 5.4 g/dL [facility] (44811) serum or plasma alanine aminotransferase measurement (enzymatic activity/volume) on 2018-05-16 Alanine 22 U/L (no code) 4 - 40 U/L [facility] (ALT) [place] (79014) prothrombin time (pt) in platelet poor plasma by coagulation assay on 2018-05-16 Coagulation 12.3 s (no code) [facility] tissue factor [facility] induced [facility] platelet poor (15519) plasma inr in platelet poor plasma or blood by coagulation assay on 2018-05-16 INR in blood by 0.9 {INR} (no code) 0.8 - 1.1 {INR} Via [facility]i coagulation [facility] (20891) carbon dioxide on 2018-05-16 CO2 29 mmol/L (no code) 23 - 29 mmol/L [facility] (24431) blood leukocytes automated count (number/volume) on 2018-05-16 WBC (Leukocytes) 6.8 10*3/uL (no code) 3.5 - 10.5 Via [facility] 10*3/uL [facility] (86084) blood hematocrit (volume fraction) on 2018-05-16 Hematocrit (HCT) 43 % (no code) 36.1 - 50.3 % Via [facility] (01133) blood erythrocytes automated count (number/volume) on 2018-05-16 Erythrocytes 4.95 10*6/uL (no code) 4.2 - 6.1 Via [facility] (RBC) 10*6/uL [facility] (57630) automated erythrocyte mean corpuscular volume on 2018-05-16 MCV 87 fL (no code) 80 - 100 fL [facility] (91132) automated erythrocyte mean corpuscular hemoglobin concentration measurement (mass/volume) on 2018-05-16 MCHC 36 g/dL (no code) 32 - 36 g/dL [facility] (35272) automated erythrocyte mean corpuscular hemoglobin (mass per erythrocyte) on 2018-05-16 MCH 31 pg (no code) 27 - 31 pg [facility] (11941) automated erythrocyte distribution width ratio on 2018-05-16 RDW-CA 12.8 % (no code) 11.6 - 14.6 % [facility] (40730) automated blood platelet mean volume measurement on 2018-05-16 Platelet mean 10.9 fL (H) 7.2 - 11.7 fL Via [facility] volume (PMV) [facility] (98062) automated blood platelet count (count/volume) on 2018-05-16 Platelets 126 10*3/uL (L) 150 - 450 Via [facility] 10*3/uL [facility] (68384) venous blood hemoglobin measurement (mass/volume) on 2018-04-23 Hemoglobin (HGB) 15.2 g/dL (no code) 12 - 18 g/dL Via [facility] (76387) serum or plasma urea nitrogen/creatin ine mass ratio on 2018-04-23 BUN/Creatinine 21 mg/mg (no code) 10 - 20 mg/mg Via [facility] (94500) serum or plasma urea nitrogen measurement (mass/volume) on 2018-04-23 Urea nitrogen 26 mg/dL (H) 7 - 20 mg/dL [facility] (01670) serum or plasma triglyceride measurement (mass/volume) on 2018-04-23 Triglyceride 181 mg/dL (H) 0 - 150 mg/dL [facility] (84596) serum or plasma total bilirubin measurement (mass/volume) on 2018-04-23 Bilirubin 0.5 mg/dL (no code) 0.3 - 1.9 mg/dL Via [facility] (total) [facility] (94208) serum or plasma sodium measurement (moles/volume) on 2018-04-23 Sodium 138 mmol/L (no code) 135 - 147 mmol/L [facility] (61974) serum or plasma protein measurement (mass/volume) on 2018-04-23 Protein 7.0 g/dL (no code) 6.4 - 8.3 g/dL [facility] (34324) serum or plasma potassium measurement (moles/volume) on 2018-04-23 Potassium 4.5 mmol/L (no code) 3.5 - 5.1 mmol/L [facility] (75369) serum or plasma glucose measurement (mass/volume) on 2018-04-23 Glucose 103 mg/dL (no code) 60 - 125 mg/dL [facility] (22377) serum or plasma creatinine measurement with calculation of estimated glomerular filtration rate on 2018-04-23 eGFR (non-black) 59 (no code) 90 - [id number] Via [facility] mL/min/{1.73_m2} mL/min/{1.73_m2} [facility] (00556) serum or plasma creatinine measurement (mass/volume) on 2018-04-23 Creatinine 1.24 mg/dL (no code) [facility] (31189) serum or plasma cholesterol measurement (mass/volume) on 2018-04-23 Cholesterol 141 mg/dL (no code) 0 - 240 mg/dL [facility] (60542) serum or plasma cholesterol in vldl measurement (mass/volume) on 2018-04-23 Serum or plasma 36 (no code) Via [facility] cholesterol in [facility] VLDL measurement [place] (mass/volume) (78982) serum or plasma cholesterol in hdl measurement (mass/volume) on 2018-04-23 HDL Cholesterol 29 mg/dL (L) [facility] (81892) serum or plasma chloride measurement (moles/volume) on 2018-04-23 Chloride 106 mmol/L (no code) 95 - 106 mmol/L Via [facility] (92268) serum or plasma calcium measurement (mass/volume) on 2018-04-23 Calcium 9.4 mg/dL (no code) 9 - 11 mg/dL [facility] (70993) serum or plasma aspartate aminotransferase measurement (enzymatic activity/volume) on 2018-04-23 Aspartate 43 U/L (H) 10 - 34 U/L Via [facility] (AST) [place] (68336) serum or plasma anion gap determination (moles/volume) on 2018-04-23 Anion gap 5 mmol/L (no code) 3 - 11 mmol/L [facility] (44289) serum or plasma alkaline phosphatase measurement (enzymatic activity/volume) on 2018-04-23 Alkaline 53 U/L (no code) 44 - 147 U/L [facility] phosphatase [facility] (ALP) [place] (57466) serum or plasma albumin measurement (mass/volume) on 2018-04-23 Albumin 4.3 g/dL (no code) 3.5 - 5.5 g/dL [facility] (58645) serum or plasma alanine aminotransferase measurement (enzymatic activity/volume) on 2018-04-23 Alanine 20 U/L (no code) 10 - 40 U/L [facility] aminotransferase [facility] (ALT) [place] (84363) prothrombin time (pt) in platelet poor plasma by coagulation assay on 2018-04-23 Coagulation 12.6 s (no code) [facility] tissue factor [facility] induced [facility] platelet poor (75601) plasma methicillin resistant staphylococcus aureus (mrsa) screening culture on 2018-04-23 MRSA presence MRSA not (no code) Via [facility] (54149) inr in platelet poor plasma or blood by coagulation assay on 2018-04-23 INR in blood by 1.0 {INR} (no code) 0.9 - 1.1 {INR} Via [facility] coagulation [facility] (47471) cholesterol in ldl [mass/volume] in serum or plasma by direct assay on 2018-04-23 LDL Cholesterol 78 mg/dL (no code) 0 - 100 mg/dL Via [facility] (79769) carbon dioxide on 2018-04-23 CO2 27 mmol/L (no code) 23 - 29 mmol/L Via [facility] (14683) blood leukocytes automated count (number/volume) on 2018-04-23 WBC (Leukocytes) 6.4 10*3/uL (no code) 3.8 - 10.8 Via [facility] 10*3/uL [facility] (89965) blood hematocrit (volume fraction) on 2018-04-23 Hematocrit (HCT) 42 % (no code) 39 - 51 % Via [facility] (72768) blood erythrocytes automated count (number/volume) on 2018-04-23 Erythrocytes 4.83 10*6/uL (no code) 4.2 - 6.1 Via [facility] (RBC) 10*6/uL [facility] (41859) automated erythrocyte mean corpuscular volume on 2018-04-23 MCV 87 fL (no code) 80 - 100 fL [facility] (29785) automated erythrocyte mean corpuscular hemoglobin concentration measurement (mass/volume) on 2018-04-23 MCHC 36 g/dL (no code) 32 - 36 g/dL [facility] (72301) automated erythrocyte mean corpuscular hemoglobin (mass per erythrocyte) on 2018-04-23 MCH 32 pg (no code) 27 - 31 pg [facility] (33175) automated erythrocyte distribution width ratio on 2018-04-23 RDW-CA 12.7 % (no code) 11 - 15 % [facility] (16015) automated blood platelet mean volume measurement on 2018-04-23 Platelet mean 11.5 fL (H) 7.2 - 11.7 fL Via [facility] volume (PMV) [facility] (63004) automated blood platelet count (count/volume) on 2018-04-23 Platelets 120 10*3/uL (L) 150 - 400 Via [facility] 10*3/uL [facility] (52018) activated partial thromboplastin time (aptt) in platelet poor plasma bycoagulation assay on 2018-04-23 aPTT 29 s (no code) 25 - 35 s Via [facility] (60505) other on 2017-11-29 Albumin/Globulin 2.1 (N) no informatio n mass ratio Cholesterol in 89 (N) [facility] (23888) Cholesterol non 113 (N) [facility] th HDL mass conc [facility] (48395) Cholesterol.tota 4.1 (N) [facility] HDL mass ratio [facility] (03748) Globulin 2.1 (N) no information Calculated mass conc (S) metabolic panel on 2017-11-29 Albumin mass 4.4 g/dL (N) 3.4 - 5.4 g/dL no inform ation conc ALP enzyme 52 U/L (N) 44 - 147 U/L no informati on act/vol ALT enzyme 19 U/L (N) 4 - 40 U/L no information act/vol AST enzyme 43 U/L (H) 10 - 34 U/L no informatio n act/vol Bilirubin mass 0.6 mg/dL (N) 0.1 - 1.2 mg/dL no inf ormation conc Calcium mass 9.1 mg/dL (N) 8.5 - 10.2 mg/dL no info rmation conc Chloride molar 100 mmol/L (N) 95 - 106 mmol/L no inf ormation conc CO2 molar conc 31 mmol/L (N) 23 - 29 mmol/L no info rmation Creatinine mass 1.06 mg/dL (N) no information conc GFR/1.73 sq M 87 (N) 90 - 120 no informati on predicted among mL/min/{1.73_m2} mL/min/{1.73_m2} blacks MDRD vol rate/area (S/P/Bld) GFR/1.73 sq 75 (N) 90 - 120 no information M.predicted MDRD mL/min/{1.73_m2} mL/min/{1.73_m2} vol rate/area Glucose mass 97 mg/dL (N) 60 - 125 mg/dL no inform ation conc Potassium molar 4.0 mmol/L (N) 3.7 - 5.2 mmol/L no i nformation conc Protein mass 6.5 g/dL (N) 6.4 - 8.3 g/dL no inform ation conc Sodium molar 139 mmol/L (N) 135 - 145 mmol/L no info rmation conc Urea nitrogen 16 mg/dL (N) 7 - 20 mg/dL no informa tion mass conc Urea NOT APPLICABLE (no code) no information nitrogen/Creatin ine mass ratio cardiac on 2017-11-29 Cholesterol in 37 mg/dL (L) [facility] h HDL mass [facility] (15973) Cholesterol mass 150 mg/dL (N) 180 - 200 mg/dL [facility] (89360) Triglyceride 147 mg/dL (N) 0 - 150 mg/dL [facility] (41240) Vital Signs Vital Sign Value Interpretation Reference Date Time Care Prov ider Facility (Normalized) (Normalized) Range BMI (Body Mass 28.22 kg/m2 (no code) 15 - 25 kg/m2 09-23-2018 [facility]) 15:20-0500 [place] [id number] [facility] (01587) BMI (Body Mass 28.15 kg/m2 (no code) 15 - 25 kg/m2 06-24-2018 NN[facility]ER Community Index) 10:40-0400 [place] 09779 [facility] (58544) BMI (Body Mass 29.86 kg/m2 (no code) 15 - 25 kg/m2 05-17-2018 NNIFER Community Index) 14:40-0400 [place] 09065 [facility] (14378) BMI (Body Mass 29.44 kg/m2 (no code) 15 - 25 kg/m2 02-08-2018 H ALINA MEZA Community Index) 10:40-0400 91640 [facility] (49217) Body height 157.48 cm (no code) cm 02-05-2014 TIFFANIE Lange mmunity 16:52-0400 [place] 61281 [facility] (84628) Body height 157.48 cm (no code) cm 12-10-2013 [facility] 09:11-0500 [facility] (58834) Body height 157.48 cm (no code) cm 11-17-2013 TIFFANIE Co mmunity 09:40-0500 [place] 71703 [facility] (75012) Body height 157.48 cm (no code) cm 11-05-2013 [facility] 10:45-0500 [facility] (50910) Body 97.1 [degF] (no code) 97.8 - 99.0 09-23-2018 [facility] Temperature [degF] 15:20-0500 [place] [address] [facility] (95959) Body 99.4 [degF] (no code) 97.8 - 99.0 06-24-2018 [facility] Temperature [degF] 10:40-0400 [place] 80843 [facility] (38734) Body 97.5 [degF] (no code) 97.8 - 99.0 05-17-2018 [facility] Temperature [degF] 14:40-0400 [place] 01051 [facility] (93218) Body 97.3 [degF] (no code) 97.8 - 99.0 12-01-2014 [facility] Temperature [degF] 11:36-0500 [place] [address] [facility] (65663) Body 96.2 [degF] (no code) 97.8 - 99.0 09-19-2014 [facility] Temperature [degF] 09:43-0500 83028 [facility] (12096) Body 97.1 [degF] (no code) 97.8 - 99.0 06-22-2014 [facility] Temperature [degF] 12:03-0400 [place] [address] [facility] (72790) Body 96 [degF] (no code) 97.8 - 99.0 06-10-2014 [facility] Temperature [degF] 10:19-0400 [facility] (96827) Body 98.6 [degF] (no code) 97.8 - 99.0 02-05-2014 [facility] temperature [degF] 16:52-0400 [facility] [address] [facility] (33634) Body 96.9 [degF] (no code) 97.8 - 99.0 11-17-2013 [facility] temperature [degF] 09:40-0500 [facility] 28469 [facility] (22337) Body weight 63.53 kg (no code) kg 12-01-2014 [facility] 11:36-0500 [place] 80281 [facility] (62445) Body weight 62.23 kg (no code) kg 09-19-2014 [facility] 09:43-0500 76790 [facility] (24354) Body weight 67.13 kg (no code) kg 08-05-2014 [facility] 11:10-0400 [facility] (60573) Body weight 66.86 kg (no code) kg 06-22-2014 TIFFANIE Com munity 12:03-0400 [place] 44829 [facility] (10315) Body weight 65.77 kg (no code) kg 06-10-2014 [facility] 10:19-0400 [facility] (57581) Body weight 68.54 kg (no code) kg 02-05-2014 TIFFANIE Com munity 16:52-0400 [place] 16204 [facility] (48167) Body weight 68.04 kg (no code) kg 12-10-2013 [facility] 09:11-0500 [facility] (46710) Body weight 66.23 kg (no code) kg 11-17-2013 TIFFANIE Com munity 09:40-0500 [place] 24532 [facility] (92723) Body weight 68.4 kg (no code) kg 11-05-2013 [facility] 10:45-0500 [facility] (38352) Height 157.48 cm (no code) cm 09-23-2018 TIFFANIE valenciay 15:200500 [place] 55879 [facility] (12099) Height 157.48 cm (no code) cm 06-24-2018 TIFFANIE Commu nity 10:40-0400 [place] 96282 [facility] (68322) Height 157.48 cm (no code) cm 05-17-2018 TIFFANIE Lexisu nity 14:40-0400 [place] 52973 [facility] (71146) Height 157.48 cm (no code) cm 04-30-2018 NAEL Taveras ommunity 15:00-0400 46756 [facility] (66100) Height 157.48 cm (no code) cm 02-08-2018 KIEL [facility] 10:40-0400 62886 [facility] (14631) Height 157.48 cm (no code) cm 12-01-2014 TIFFANIE Piresu nity 11:360500 [place] 12589 [facility] (20703) Height 157.48 cm (no code) cm 09-19-2014 [facility] 09:430500 84740 [facility] (34680) Height 157.48 cm (no code) cm 08-05-2014 [facility] n[facility] 11:100400 [facility] (39196) Height 157.48 cm (no code) cm 06-22-2014 TIFFANIE Piresu nity 12:030400 [place] 01155 [facility] (85127) Height 157.48 cm (no code) cm 06-10-2014 Doctor Com[facility] nity 10:19-0400 [facility] (86985) Pulse Oximetry 97 % (no code) 95 - 100 % 09-23-2018 [facility] 15:20-0500 [place] 94794 [facility] (14988) Pulse Oximetry 94 % (no code) 95 - 100 % 06-24-2018 [facility] 10:40-0400 [place] 58107 [facility] (77120) Pulse Oximetry 97 % (no code) 95 - 100 % 02-08-2018 KIEL MEZA [facility] 10:40-0400 97271 [facility] (90603) Weight 69.99 kg (no code) kg 09-23-2018 TIFFANIE Arauz ity 15:20-0500 [place] 46049 [facility] (11919) Weight 69.81 kg (no code) kg 06-24-2018 TIFFANIE Arauz ity 10:40-0400 [place] 58348 [facility] (49855) Weight 74.07 kg (no code) kg 05-17-2018 TIFFANIE Arauz ity 14:40-0400 [place] 15659 [facility] (19870) Weight 73.03 kg (no code) kg 02-08-2018 KIEL [facility] 10:40-0400 09048 [facility] (88697) Interventions No Information Plan of Treatment The data below is from unstructured sources Discharge Date 06/12/16 9:27am Prescriptions See Medication Section Discharge Date 06/12/16 6:07pm Disposition 01 HOME, SELF-CARE Condition at Discharge Stable Instructions/Education Provided Acut e Abdominal Pain (ED) Prescriptions See Medication Section [facility] Additional Instructions/Education Al l discharge instructions reviewed with patient and/or family. Voiced understanding. Continue bowel prep tonight. Keep appointment for colonoscopy tomorrow as you have an irregularity in the colon that needs to be evaluated with the colonoscopy. Follow-up with your Dr. as needed. Return for worse pain, fever, vomiting, weakness, breathing problems or other concerns as needed. Discharge Date 06/13/16 4:55pm Instructions/Education Provided COLO NOSCOPY EGD-ESOPHAGOGASTRODUODENOSCOPY Colonoscopic Polypectomy (DC) Prescriptions See Medication Section Discharge Date 08/29/16 1:50pm Instructions/Education Provided CARD IAC CATH DISCHARGE INSTRUC Prescriptions See Medication Section Discharge Date 09/09/16 1:55pm Disposition 01 HOME, SELF-CARE Instructions/Education Provided Management Services Technician sheyla Obstructive Pulmonary Disease (COPD), Including Emphysema Chest Pain That Is Not Caused by the Heart (DC) [place] Diet Prescriptions See Medication Section Additional Instructions/Education bl and diet Discharge Date 03/06/17 12:27pm Instructions/Education Provided COLO NOSCOPY Prescriptions See Medication Section Discharge Date 06/17/14 9:35am Disposition 01 HOME, SELF-CARE Instructions/Education Provided CARD IAC CATH DISCHARGE INSTRUC SMOKING CESSATION Prescriptions See Medications Sectio n Activity Details Follow Up prn Reason: Activity Details Follow Up 2 Months Reason: Discharge Date 04/23/18 1:41pm Instructions/Education Provided [place] sesophageal Echocardiogram Prescriptions See Medication Section Activity Details Follow Up Will use on as needed basi s. Reason: Discharge Date 05/16/18 8:28pm Instructions/Education Provided CARD IAC CATH DISCHARGE INSTRUC Prescriptions See Medication Section Activity Details Follow Up after testing Reason: Activity Details Follow Up 3 Months Reason:DM visit Activity Details Follow Up 6 Months Reason:BP/lung fo llow up ( 1 week nurse BP visit) Goals No Information Social History No Information Functional Status The data below is from unstructured sources Query Response Date Ari rded Patient Orientation Person Place Time Situation August 29, 2016 2:21pm Query Response Date Ari rded Patient Orientation Person Place Time Situation September 09, 2016 2:21pm Comprehension Ability Understands Co ncepts September 09, 2016 9:00am Query Response Date Ari rded Patient Orientation Person Place Time Situation Normal For Age June 17, 2014 10:39am Query Response Date Ari rded Patient Orientation Person Place Time Situation Normal For Age June 17, 2014 12:12pm Query Response Date Ari rded Comprehension Ability Understands Co ncepts May 16, 2018 8:00pm Mental Status No Information Encounters Encounter Normalized Encounter Encounter Diagnosis Care Provi fer Organization Date Type 05-16-2018 Admission to day no information Mayuri Gerardo k no organization name - surgery Phone: 05-16-2018 04-23-2018 Admission to day no information [facility] D no organization name - surgery Work Phone: 04-23-2018 [facility] 06-12-2016 Emergency department no information no name no organization name - patient visit 06-12-2016 09-08-2016 Evaluation and no information no name no organ ization name - management of 09-09-2016 inpatient 07-05-2018 Patient encounter no information no name no or ganization name 05-17-2018 Patient encounter no information no name no or ganization name 05-16-2018 Patient encounter no information no name no or ganization name - 05-16-2018 04-30-2018 Patient encounter no information no name no or ganization name 04-25-2018 Patient encounter no information KIEL VALDES MA no organization name 04-23-2018 Patient encounter no information no name no or ganization name - 04-23-2018 03-29-2018 Patient encounter no information CO[facility] COH[facility] no organization name 02-19-2018 Patient encounter no information no name no or ganization name - 02-19-2018 02-08-2018 Patient encounter no information no name no or ganization name 01-24-2018 Patient encounter no information no name no or ganization name 01-18-2018 Patient encounter no information no name no or ganization name 11-29-2017 Patient encounter no information no name no or ganization name 03-06-2017 Patient encounter no information no name no or ganization name - 03-06-2017 09-12-2016 Patient encounter no information no name no or ganization name - 09-12-2016 08-29-2016 Patient encounter no information no name no or ganization name - 08-29-2016 06-13-2016 Patient encounter no information no name no or ganization name - 06-13-2016 06-16-2014 Patient encounter no information no name no or ganization name - 06-17-2014 11-19-2013 Patient encounter no information no name no or ganization name 09-01-2013 Patient encounter no information no name no or ganization name 03-12-2020 Patient encounter no information (no phone) [facility] procedure [facility] (no phone) 02-10-2020 Patient encounter no information [facility] CAMP[facility] (no [facility] (no phone) 02-03-2020 Patient encounter no information (no phone) [facility] (no phone) 11-28-2019 Patient encounter no information CO[facility] POWER [facility] procedure (no phone) [facility] (no phone) 11-26-2019 Patient encounter no information [facility] POWER [facility] [address] procedure (no phone) [facility] (no phone) 08-26-2019 Patient encounter no information no name no or ganization name procedure 02-28-2019 Patient encounter no information no name no or ganization name procedure 02-28-2019 Patient encounter no information no name no or ganization name procedure 09-23-2018 Patient encounter no information no name no or ganization name procedure 05-16-2018 Patient encounter no information no name no or ganization name - procedure 05-16-2018 04-25-2018 Patient encounter no information no name no or ganization name procedure 04-23-2018 Patient encounter no information no name no or ganization name - procedure 04-23-2018 03-29-2018 Patient encounter no information no name no or ganization name procedure 02-19-2018 Patient encounter no information no name no or ganization name - procedure 02-19-2018 01-18-2018 Patient encounter no information no name no or ganization name procedure 03-06-2017 Patient encounter no information no name no or ganization name - procedure 03-06-2017 03-05-2017 Patient encounter no information no name no or ganization name - procedure 03-05-2017 03-02-2017 Patient encounter no information no name no or ganization name procedure 09-12-2016 Patient encounter no information no name no or ganization name - procedure 09-12-2016 08-30-2016 Patient encounter no information no name no or ganization name procedure 08-29-2016 Patient encounter no information no name no or ganization name - procedure 08-29-2016 06-13-2016 Patient encounter no information no name no or ganization name - procedure 06-13-2016 06-12-2016 Patient encounter no information no name no or ganization name - procedure 06-12-2016 06-16-2014 Patient encounter no information no name no or ganization name - procedure 06-17-2014 no information Encounter for other no name no organiz ation name preprocedural examination Medical Equipment No Information Payers Normalized Payer Value Unknown [id number]) Advance Directives Directive Response Recor ded Date/Time Advance Directives No 9:15am Organ Donor No 06/12/16 9:15am Resuscitation Status Full Code 06/12/16 9:15am Directive Response Recor ded Date/Time Advance Directives No 3:05pm Organ Donor No 06/12/16 3:05pm Resuscitation Status Full Code 06/12/16 3:05pm Directive Response Recor ded Date/Time Advance Directives No 11:22am Organ Donor No 06/13/16 11:22am Resuscitation Status Full Code 06/13/16 11:22am Directive Response Recor ded Date/Time Advance Directives No 7:17am Health Care Power of Engineer [employer] No 08/29/16 7:17am Organ Donor No 08/29/16 7:17am Resuscitation Status Full Code 08/29/16 7:17am Directive Response Recor ded Date/Time Advance Directives No 3:12am Health Care Power of Engineer [employer] No 09/09/16 3:12am Organ Donor No 09/09/16 3:12am Resuscitation Status Full Code 09/09/16 3:12am Directive Response Recor ded Date/Time Advance Directives No 8:50am Health Care Power of Engineer [employer] No 03/06/17 8:50am Organ Donor No 03/06/17 8:50am Resuscitation Status Full Code 03/06/17 8:50am Directive Response Recor ded Date/Time Advance Directives No 8:51am Organ Donor No 06/16/14 8:51am Resuscitation Status Full Code 06/16/14 8:51am Directive Response Recor ded Date/Time Advance Directives No 10:14am Health Care Power of Engineer [employer] No 04/23/18 10:14am Organ Donor No 04/23/18 10:14am Resuscitation Status Full Code 04/23/18 10:14am Directive Response Recor ded Date/Time Advance Directives No 2:45pm Health Care Power of Engineer [employer] No 05/16/18 2:45pm Organ Donor No 05/16/18 2:45pm Resuscitation Status Full Code 05/16/18 2:45pm Discharge Instructions No hospital discharge instructions.No hospital discharge instructions. Patient Instructions Physician Instructions Plan of Care/Instructions/FU: patient to follow-up with Dr. Molina in 2-3 weeks. Patient will need repeat colonoscopy in 6 months Activity as Tolerated: Yes Discharge Diet: No Restrictions Care Plan Patient Instructions:: patient to follow-up with Dr. Molina in 2-3 weeks.Patient will need repeat colonoscopy in 6 months Patient Instructions Physician Instructions Follow Up/Plan Follow up with Dr Power on Sunday09/04/16 CARDIAC CATH DISCHARGE INSTRUCTIONS *Hold Metformin for 48 hours post heart cath. ACTIVITY * Go Home directly and rest. * Limit activity of the leg (or wrist if it was used) for 7 days including aerobics, swimming, jogging, bicycling, etc. * Restrict stair-climbing for 7 days if possible, if not, climb up with your non-cath leg, then bring together on the same step. * Avoid lifting, pushing, pulling or excessive movement of the affected extremity for 7 days. * Customary sexual activity may be resumed after 2 days-use caution not to use a position that strains or causes pain to the affected extremity. * No driving for 24 hours. * NO SMOKING. * Avoid straining for bowel movements for 7 days. * Gentle walking on level ground is allowed. * Returning to work will depend on the type of procedure and the results. Your doctor will discuss this with you. CALL YOUR DOCTOR FOR ANY OF THE FOLLOWING: *If bleeding from the puncture site occurs- Apply gentle pressure to site with clean cloth and call your doctor or EMS. * If a knot or lump forms under the skin, increases in size, or causes pain. * If bruising appears to be worsening or moving further down your leg instead of disappearing. * Temperature above 101 F. CARE OF YOUR GROIN INCISION; * Bruising or purple discoloration of the skin near the puncture site is common. * You may shower only, no bathtub bathing for 5 days. Be careful to avoid slipping as your leg may feel stiff. * If a closure device was used on your femoral artery, please see the attached guide regarding care of the device and your leg. * REMOVE the dressing from your groin the next day after your procedure in the shower. CARE OF YOUR WRIST INCISION; * Bruising or purple discoloration of the skin near the puncture site is common. * You may shower. * DO NOT submerge wrist. * Remove dressing in 24 hours. No hospital discharge instructions. Patient Instructions Physician Instructions Plan of Care/Instructions/FU: Follow Dr. Molina in 2 weeks Repeat colonoscopy in one year or sooner if condition changes Activity as Tolerated: Yes Discharge Diet: No Restrictions Care Plan Patient Instructions:: Follow Dr. Molina in 2 weeksRepeat colonoscopy in one year or sooner if condition changes Patient Instructions Physician Instructions New, Converted or Re-Newed RX: RX on Chart Patient Instructions: Please schedule f/u appointment to see Dr. Power in one month No hospital discharge instructions.No hospital discharge instruction information available.No hospital discharge instruction information available. Summary Purpose eClinicalWorks SubmissioneClinicalWorks SubmissioneClinicalWorks SubmissioneClinicalWorks SubmissioneClinicalWorks SubmissioneClinicalWorks SubmissioneClinicalWorks SubmissioneClinicalWorks SubmissioneClinicalInCrowd SubmissioneClinicalWorks Submission Additional Source Comments This clinical document has been generated using [employer] software that has been certified by the Office of the National Coordinator for Health Information Technology (ONC 15.99.04.3023.Diam.31.00.0.112875) and the National Committee for Scientific Informatics Analyst (NCQA, as an eMeasure certified technology). FOR RECORDS PERTAINING TO PATIENTS WHO ARE OR HAVE BEEN ENROLLED IN A CHEMICAL D EPENDENCY/SUBSTANCE ABUSE PROGRAM, SOME INFORMATION MAY BE OMITTED. This clinica l summary was aggregated from multiple sources. Caution should be exercised in using it in the provision of clinical care. This summary normalizes information from multiple sources, and as a consequence, information in this document may ma terially change the coding, format and clinical context of patient data. In nu tion, data may be omitted in some cases. CLINICAL DECISIONS SHOULD BE BASED ON T HE PRIMARY CLINICAL RECORDS. [employer] provides no warranty or guara ntee of the accuracy or completeness of information in this document.The followi ng information is based on time limited clinical information UNRECOGNIZED CONTENT PROVIDED BELOW FOR UNRECOGNIZED SECTION MEDICAL (GENERAL) HISTORY Type Description Date Medical History GERD Medical History hypertension Medical History 1999 mild stroke syn drome- CT head 02/2015 showed chronic ischemic changes Medical History chronic neck and back pain Medical History NM x's 2 1996 and 2011 Medical History Chronic bronchitis- PFT 2012 normal Medical History Hyperlipidemia Medical History ECHO 2013- mild tric uspid and mitral reguirg. Mild aortic sclerosis- EF 60% Medical History CT abdomen/pelvis- - Mild diverticulosis, fatty liver, artherosclerosis of aorta Medical History Fatty liver- CT 2016 Medical History Tubular Adenoma and hyperplastic polyp dx 06/2016 Medical History Esophagitis Surgical History carotid endarterect karina, left side of neck 02/2015 Surgical History coronary angiograph y Dr Kymberly Corbettplin- normal EF, LV function,-minimal RCA blockage <20% 1996 Surgical History EGD-Dr.Makdisi [facility]-mild erosive esophagitis, mild nonspecific bulbar duodenitis 1996 Surgical History carotid endarterect karina, right- [facility] 01/2015 Surgical History Heart cath with PTCA 2013 Surgical History Colonoscopy- tubula r adenoma, hyperplastic polyp- repeat Colonoscopy 12/2016 Hospitalization History heart attack 1996 Hospitalization History slurred spee ch, fever, left arm pain [facility] [employer] February 2015 Hospitalization History Pancreatitis 12/2015 Type Description Date Medical History GERD Medical History hypertension Medical History 1999 mild stroke syn drome- CT head 02/2015 showed chronic ischemic changes Medical History chronic neck and back pain Medical History NM x's 2 1996 and 2011 Medical History Chronic bronchitis- PFT 2012 normal Medical History Hyperlipidemia Medical History ECHO 2013- mild tric uspid and mitral reguirg. Mild aortic sclerosis- EF 60% Medical History CT abdomen/pelvis- - Mild diverticulosis, fatty liver, artherosclerosis of aorta Medical History Fatty liver- CT 2016 Medical History Tubular Adenoma and hyperplastic polyp dx 06/2016 Medical History Esophagitis Medical History Barretts Esophagus dx 2018 Surgical History carotid endarterect karina, left side of neck 02/2015 Surgical History coronary angiograph y Dr Kymberly Shah- normal EF, LV function,-minimal RCA blockage <20% 1996 Surgical History EGD-Dr.M[facility]-mild erosive esophagitis, mild nonspecific bulbar duodenitis 1996 Surgical History carotid endarterect karina, right- [facility] 01/2015 Surgical History Heart cath with PTCA 2013 Surgical History Colonoscopy- tubula r adenoma, hyperplastic polyp- repeat Colonoscopy 12/2016 Hospitalization History heart attack 1996 Hospitalization History slurred spee ch, fever, left arm pain [facility] [employer] February 2015 Hospitalization History Pancreatitis 12/2015 Type Description Date Medical History GERD Medical History hypertension Medical History 1999 mild stroke syn drome- CT head 02/2015 showed chronic ischemic changes Medical History chronic neck and back pain Medical History NM x's 2 1996 and 2011 Medical History Chronic bronchitis- PFT 2012 normal Medical History Hyperlipidemia Medical History ECHO 2013- mild tric uspid and mitral reguirg. Mild aortic sclerosis- EF 60% Medical History CT abdomen/pelvis- - Mild diverticulosis, fatty liver, artherosclerosis of aorta Medical History Fatty liver- CT 2015 Medical History Tubular Adenoma and hyperplastic polyp dx 06/2016 Medical History Esophagitis Medical History Barretts Esophagus dx 2018 Medical History CABG and Pacemaker ([facility]) Surgical History carotid endarterect karina, left side of neck 02/2015 [facility], [facility] function,-minimal RCA blockage <20% 1996 Surgical History EGD-Dr.M[facility]-mild erosive esophagitis, mild nonspecific bulbar duodenitis 1996 Surgical History carotid endarterect karina, right- [facility] 01/2015 Surgical History Heart cath with PTCA 2013 Surgical History Colonoscopy- tubula r adenoma, hyperplastic polyp- repeat Colonoscopy 12/2016 Surgical History Bypass Surgery- CAB G and Pacemaker 06/06/2018 Hospitalization History heart attack 1996 Hospitalization History slurred spee ch, fever, left arm pain [facility] February 2015 Hospitalization History Pancreatitis 12/2015 Hospitalization History CABG 05/2018 Type Description Date Medical History GERD Medical History hypertension Medical History 1999 mild stroke syn drome- CT head 02/2015 showed chronic ischemic changes Medical History chronic neck and back pain Medical History NM x's 2 1996 and 2011 Medical History Chronic bronchitis- PFT 2012 normal Medical History Hyperlipidemia Medical History ECHO 2013- mild tric uspid and mitral reguirg. Mild aortic sclerosis- EF 60% Medical History CT abdomen/pelvis- - Mild diverticulosis, fatty liver, artherosclerosis of aorta Medical History Fatty liver- CT 2015 Medical History Tubular Adenoma and hyperplastic polyp dx 06/2016 Medical History Esophagitis Medical History Barretts Esophagus dx 2018 Medical History CABG and Pacemaker ([facility]) Medical History Mild carpal tunnel s yndrome bilat per NCT 05/2019 Surgical History carotid endarterect karina, left side of neck 02/2015 Surgical History coronary angiograph y Dr Kymberly Shah- normal EF, LV function,-minimal RCA blockage <20% 1996 Surgical History EGD-Dr.Makdisi [facility]-mild erosive esophagitis, mild nonspecific bulbar duodenitis 1996 Surgical History carotid endarterect karina, right- [facility] 01/2015 Surgical History Heart cath with PTCA 2013 Surgical History Colonoscopy- tubula r adenoma, hyperplastic polyp- repeat Colonoscopy 12/2016 Surgical History Bypass Surgery- CAB G and Pacemaker 06/06/2018 Hospitalization History heart attack 1996 Hospitalization History slurred spee ch, fever, left arm pain [facility] February 2015 Hospitalization History Pancreatitis 12/2015 Hospitalization History CABG 05/2018 UNRECOGNIZED CONTENT PROVIDED BELOW FOR UNRECOGNIZED SECTION REASON FOR VISIT Blood pressure checkPrescription changequit smoking- wants to discuss options fo r smoking cessation Saige VALENTINO, Dr. Reyes with [facility] did Heart Cath 8- Pt voices he needs further surgeryHospital f/u for heart surgery on Jun 06. A AUGUSTO MAHER/Requests Return calllabs per Dr. Davis Davalos-[facility]
--- OUTSIDE RECORDS SUMMARY | 2020-04-06 06:49 | XMS REPORT ---
Author Author Jermaine CAMPOS [facility] Address [address] [place] [address] Care Team Providers Care Signal Manager Name Role Phone TIFFANIE CAMPOS Unavailable PROBLEMS Type Condition ICD9-CM Code RSO12-AJ Code Onset Dates Condition S tatus SNOMED Code Problem Fatty liver K76.0 Active 53390114 7 Problem Chronic pain G89.29 Active 8918681 1 Problem Abdominal bloating R14.0 Active 1 11644695 Problem Diverticulosis of intestine without bleeding, unspecified intestinal tract location K57.90 Active 89344898 Problem Gastroesophageal reflux disease without esophagitis K21.9 Active 093551753 Problem COPD (chronic obstructive pulmonary disease) wit h chronic bronchitis J44.9 Active 572212245 Problem Bilateral carotid artery disease I77.9 Active 393554111 Problem Chronic bronchitis J42 Active 6 4835642 Problem Claudication of both lower extremities I73.9 Active 232103532 Problem Hyperlipemia E78.5 Active 5961963 4 Problem Non-rheumatic mitral regurgitation I34.0 Active 636427167 Problem Claudication I73.9 Active 0191857 6 Problem Peripheral arterial disease I73.9 Ac tive 192918069 Problem Pacemaker Z95.0 Active 260293666 Problem Chronic obstructive pulmonary disease, unspecified COPD ty pe J44.9 Active 61364167 Problem Tobacco abuse Z72.0 Active 461269 05 Problem Carpal tunnel syndrome on both sides G56.03 Active 39070419135848805 Problem PAD (peripheral artery disease) I73.9 Active 122547878 Problem Benign essential hypertension I10 Active 9938393 Problem CAD (coronary artery disease) I25.10 Active 34775572 Problem Mixed hyperlipidemia E78.2 Active 469536001 Problem Other chronic pain G89.29 Active 8 9015359 Problem Diet-controlled diabetes mellitus E11.9 Active 990320450 Problem Degenerative disc disease, cervical M50.30 Active 43359473 ALLERGIES No Information ENCOUNTERS Encounter Location Date Diagnosis [facility] [address] [id number], [place] [id number] February, [facility] [address] [id number], [place] [id number] February, [facility] [address] [id number], [place] [id number] February, [facility] [address] [id number], [place] [id number] Jan, [facility] [address] [id number], [place] [id number] Jan, [facility] [address] [facility] [id number], [place] 858184378 Jan, Diet-controlled diabetes mellitus E11.9 ; Benign essential hypertension I10 ; Tobacco abuse Z72.0 and Tobacco abuse counseling Z71.6 [facility] [address] [id number], [place] [address]0176[address] Jan, [facility] [address] [facility] [address] [id number], [place] [address]180 Aug, Carpal tunnel syndrome on both sides G56 .03 ; Sore of lower lip K13.0 ; Benign essential hypertension I10 ; COPD (chronic obstructive pulmonary disease) with chronic bronchitis J44.9 and Hyperlipemia E78.5 [facility] [address] [id number], [place] [id number] May, [facility] [address] [id number], [place] [address]6234[address] Mar, [facility] [address] [id number], [place] 923947509 Mar, Facet arthritis of cervical region M47.8 12 and Cervical radiculopathy M54.12 [facility] [address] [id number], [place] 406778204 February, Degenerative disc disease, cervical M50. 30 ; Facet arthritis of cervical region M47.812 ; Cervical radiculopathy M54.12 and Pacemaker Z95.0 [facility] [address] [id number], [place] 830794032 February, [facility] [address] [id number], [place] [id number] Jan, [facility] [address] [place] [address] AVE [id number], [place] [id number] Sep, Diet-controlled diabetes mellitus E11.9 ; Benign essential hypertension I10 and Tobacco abuse Z72.0 [facility] [address] [id number], [place] [id number] Jul, Hyperlipemia E78.5 and CAD (coronary art janneth disease) I25.10 [facility] [address] [id number], [place] [id number] Jun, CAD (coronary artery disease) I25.10 and Hyperlipemia E78.5 [facility] [address] [place] [address] AVE [id number], [place] [id number] Jun, New onset type 2 diabetes mellitus E11.9 ; S/P CABG (coronary artery bypass graft) Z95.1 ; Benign essential hypertension I10 ; Other chronic pain G89.29 and S/P cardiac pacemaker procedure Z95.0 [facility] [address] [place] [address] AVE [id number], [place] [id number] Jun, [facility] [address] [place] [address] AVE [id number], [place] [id number] May, [facility] [address] [id number], [place] [id number] May, COPD (chronic obstructive pulmonary dise ase) with chronic bronchitis J44.9 ; Tobacco abuse Z72.0 and Tobacco abuse counseling Z71.6 [facility] [address] [id number], [place] 094885053 Apr, CAD (coronary artery disease) I25.10 [facility] [address] [id number], [place] 765508629 Mar, Peripheral arterial disease I73.9 [facility] [address] [id number] [place] [address] February, Chronic pain G89.29 ; Hyperlipemia E78.5 and Benign essential hypertension I10 [facility] [address] [id number], [place] [id number] Jan, COPD (chronic obstructive pulmonary dise ase) with chronic bronchitis J44.9 [facility] [address] [id number], [place] 560792717 Jan, [facility] [address] [id number], [place] 863903564 Jan, Peripheral arterial disease I73.9 ; Carlo gn essential hypertension I10 ; Bilateral carotid artery disease I77.9 ; Claudication of both lower extremities I73.9 ; Mixed hyperlipidemia E78.2 ; Tobacco use Z72.0 and Non- rheumatic mitral regurgitation I34.0 [facility] [address] [id number], [place] [id number] Jan, RUQ pain R10.11 ; Gastroesophageal reflu x disease without esophagitis K21.9 and Change in stool R19.5 [facility] [address] [id number], [place] 595615036 Jan, [facility] [address] [id number], [place] 169326584 Jan, Neck pain M54.2 ; Benign essential hyper tension I10 ; COPD (chronic obstructive pulmonary disease) with chronic bronchitis J44.9 and Chronic obstructive pulmonary disease, unspecified COPD type J44.9 [facility] [address] [id number], [place] 287160737 Jan, Chronic obstructive pulmonary disease, u nspecified COPD type J44.9 [facility] [address] [id number], [place] [id number] Dec, [facility] [address] [id number], [place] [id number] Dec, [facility] [address] [place] [address] AVE [id number], [place] [id number] Dec, COPD (chronic obstructive pulmonary dise ase) with chronic bronchitis J44.9 [facility] [address] [facility] [id number] 100[place], [place] [address] Dec, [facility] [address] [facility] [id number] [address] [place] [address] Dec, [facility] [address] [id number], [place] [id number] Nov, [facility] [address] [id number], [place] [id number] Nov, Benign essential hypertension I10 and CO PD (chronic obstructive pulmonary disease) with chronic bronchitis J44.[address] [id number], [place] 171984539 Nov, Hyperlipemia E78.5 ; Benign essential hy pertension I10 ; COPD (chronic obstructive pulmonary disease) with chronic bronchitis J44.9 ; Encounter for immunization Z23 ; Gastroesophageal reflux disease without esophagitis K21.9 and Chronic pain G89.29 [facility] [address] [id number], [place] [id number] Oct, COPD (chronic obstructive pulmonary dise ase) with chronic bronchitis J44.9 and Chronic obstructive pulmonary disease, unspecified COPD type J44.9 [facility] [address] [id number], [place] [id number] Oct, COPD (chronic obstructive pulmonary dise ase) with chronic bronchitis J44.9 and Chronic obstructive pulmonary disease, unspecified COPD type J44.9 [facility] [address] [id number], [place] [id number] Oct, COPD (chronic obstructive pulmonary dise ase) with chronic bronchitis J44.9 and Chronic obstructive pulmonary disease, unspecified COPD type J44.9 [facility] [address] [id number], [place] 466922715 Oct, Benign essential hypertension I10 and Ne ck pain M54.2 [facility] [address] [id number], [place] 891283196 Sep, PAD (peripheral artery disease) I73.9 ; Claudication of both lower extremities I73.9 ; Bilateral carotid artery disease I77.9 ; Benign essential hypertension I10 ; Hyperlipemia E78.5 and Dyspnea on exertion R06.09 [facility] [address] [id number], [place] [id number] Aug, Benign essential hypertension I10 ; Vannessa roesophageal reflux disease without esophagitis K21.9 and Cervical radiculopathy M54.12 [facility] [address] [id number], [place] 017127348 Aug, Gastroesophageal reflux disease without esophagitis K21.9 [facility] Therapy SolutionsW[facility] [address] [id number], [place] 135196926 Aug, COPD (chronic obstructive pulmonary dise ase) with chronic bronchitis J44.9 [facility] [address] [id number], [place] [id number] Jul, [facility] [address] [id number], [place] 904344692 Jul, Benign essential hypertension I10 [facility] [address] [id number], [place] 717578882 Jul, [facility] SolutionsW[facility] [address] [id number], [place] [id number] Jul, COPD (chronic obstructive pulmonary dise ase) with chronic bronchitis J44.9 [facility] [address] [id number], [place] [id number] Jul, Neck pain M54.2 [facility] [address] [id number], [place] 006162662 Jun, Claudication of both lower extremities I 73.9 ; PAD (peripheral artery disease) I73.9 ; Bilateral carotid artery disease I77.9 ; CAD (coronary artery disease) I25.10 ; Tobacco abuse Z72.0 ; Benign essential hypertension I10 ; Hyperlipemia E78.5 and Non-rheumatic mitral valve stenosis I34.[address] [facility] [address] [id number] [place] 814298048 Jun, Chronic obstructive pulmonary disease, u nspecified COPD type J44.[address] [facility] [address] [id number] [place] [id number] May, [facility] [address] [id number] [place] 687884862 May, Chronic obstructive pulmonary disease, u nspecified COPD type J44.9 [facility] [address] [id number] [place] [id number] May, Neck pain M54.2 ; Chronic obstructive pu lmonary disease, unspecified COPD type J44.9 and Cervical radiculopathy M54.[address] [facility] [address] [id number] [place] [id number] May, [facility] [address] [id number] [place] [id number] Apr, [facility] [address] [id number] [place] 929756178 Apr, Gastroesophageal reflux disease without esophagitis K21.[address] [facility] [address] [id number] [place] 479423966 Apr, COPD (chronic obstructive pulmonary dise ase) with chronic bronchitis J44.[address] [facility] [address] [id number] [place] 081195360 Apr, [facility] [address] [id number] [place], [place] [id number] Apr, [facility] [address] [id number] [place] 516893386 Apr, COPD (chronic obstructive pulmonary dise ase) with chronic bronchitis J44.9 ; Benign essential hypertension I10 ; Tobacco abuse counseling Z71.6 and Hyperlipemia E78.[address] [facility] [address] [id number] [place] [id number] February, COPD (chronic obstructive pulmonary dise ase) with chronic bronchitis J44.[address] [facility] [address] [id number] [place] [id number] Jan, [facility] [address] [id number], [place] [id number] Jan, COPD (chronic obstructive pulmonary dise ase) with chronic bronchitis J44.[address] [facility] [address] [id number], [place] 260381694 Oct, COPD (chronic obstructive pulmonary dise ase) with chronic bronchitis J44.[address] [facility] [address] [id number], [place] 099529402 Oct, Winter itch L29.[address] [facility] [address] [id number], [place] 190555852 Oct, COPD (chronic obstructive pulmonary dise ase) with chronic bronchitis J44.9 ; Benign essential hypertension I10 ; Tobacco abuse Z72.0 and Gastroesophageal reflux disease without esophagitis K21.9 [facility] [address] [id number], [place] [id number] Sep, Benign essential hypertension I10 [facility] [address] [id number], [place] [id number] Aug, [facility] [address] [id number], [place] [id number] Jul, [facility] [address] [id number], [place] [id number] Apr, [facility] [address] [id number], [place] [id number] Apr, Abdominal bloating R14.0 ; Fatty liver K 76.0 ; Diverticulosis of intestine without bleeding, unspecified intestinal tract location K57.90 ; Chronic obstructive pulmonary disease, unspecified COPD type J44.9 and Benign essential hypertension I10 [facility] [address] [id number], [place] [id number] Apr, Mild early onset dysthymic disorder, in partial remission, with melancholic features, 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 [facility] [address] [id number], [place] 397148952 Mar, Abdominal muscle strain, initial encount er S39.011A [facility] [address] [id number], [place] [id number] Jan, Pancreatitis K85.9 ; Abdominal bloating R14.0 ; Chronic bronchitis J42 and Chronic pain G89.29 [facility] [address] [id number], [place] [id number] Nov, [facility] Therapy SolutionsWAGNER[address] AVHuntsville Hospital [id number] [place] [address] [id number] Nov, [facility] [address] [id number], [place] 102678609 Nov, Chronic bronchitis J42 ; Tobacco abuse Z 72.0 and Tobacco abuse counseling Z71.6 [facility] [address] [place] [address] AVE [id number], [place] [id number] Oct, [facility] SolutionsW[facility]NER[address] [id number], [place] [id number] Oct, Chronic bronchitis J42 ; Tobacco abuse Z 72.0 and Benign essential hypertension I10 [facility] [address] [place] [address] A[address] [id number], [place] 477934295 Oct, Chronic bronchitis J42 ; Tobacco abuse Z 72.0 ; Tobacco abuse counseling Z71.6 ; Benign essential hypertension I10 and Hyperlipemia E78.5 [facility] [address] [id number] [address] [place] [address] Sep, [facility] [address] [id number], [place] [id number] Jul, [facility] [address] [id number] [address] [place] [address] Jul, Essential (primary) hyperten aida I10 [place] [address] [facility] [id number] [address] [place] [address] Jul, [facility] [address] [address] [facility] [address] [id number], [place] [id number] Jul, [facility] [address] [facility] [address] [id number], [place] 616158629 Jun, Benign essential hypertension 401.1 ; Ge neralized edema 782.3 ; Chronic pain 338.29 and Hyperlipemia 272.4 [facility] [address] [place] [address] AVE [id number], [place] 781904935 May, Upper respiratory infection 465.9 and Co ugh 786.[id number] [place] [address] [id number] Mar, Upper respiratory infection 465.9 ; 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 and Cough 786.2 [facility] [address] [place] [address] AVE [id number], [place] [id number] February, [facility] [address] [facility] [address] [id number], [place] 754885245 February, Status post bilateral carotid endarterec vito V45.89 ; CAD (coronary artery disease) 414.00 ; Benign essential hypertension 401.1 ; Hyperlipemia 272.4 ; Tobacco abuse 305.1 ; Tobacco abuse counseling V65.42 and Chronic bronchitis 491.9 [facility] [address] [place] [id number] [address] [place] [address] Jan, [facility] [address] [place] [id number] [address] [place] [address] Jan, [facility] [address] [place] [address] Dec, [facility] [address] [place] [id number] [address] [place] [address] Dec, [facility] [address] [place] [id number] [address] [place] [address] Nov, [facility] [address] [id number] [address] [place] [address], [place] [address] Nov, 2014 [facility] [address] [id number] [address] [place] [address], [place] [address] Nov, 2014 [facility] [address] [id number] [address] [place] [address], [place] [address] Nov, 2014 [facility] [address] [id number] [address] [place] [address], [place] [address] Nov, 2014 [facility] [address] [id number] [address] [place] [address], [place] [address] Nov, 2014 [facility] [address] [id number] [address] [place] [address], [place] [address] Nov, 2014 [facility] [address] [id number] [address] [place] [address], [place] [address] Nov, [facility] [address] [id number] [address] [place] [address], [place] [address] Nov, [facility] [address] [id number] [address] [place] [address], [place] [address] Oct, [facility] [address] [id number] [address] [place] [address], [place] [address] Oct, [facility] [address] [id number] [address] [place] [address], [place] [address] Oct, [facility] [address] [id number] [address] [place] [address], [place] [address] Oct, [facility] [address] [id number] [address] [place] [address], [place] [address] Oct, [facility] [address] [id number] [address] [place] [address], [place] [address] Oct, [facility] [address] [id number] [address] [place] [address], [place] [address] Oct, [facility] [address] [id number] [address] [place] [address] [place] [address] Oct, [facility] [address] [id number] [address] [place] [address], [place] [address] Oct, [facility] [address] [id number] [address] [place] [address], [place] [address] Oct, [facility] [address] [id number] [place] [id number] Oct, [facility] [address] [id number] [address] [place] [address], [place] [address] Oct, [facility] [address] [id number] [address] [place] [address], [place] [address] Sep, [facility] [address] [id number] [address] [place] [address], [place] [address] Sep, [facility] [address] [id number] [address] [place] [address], [place] [address] Aug, [facility] [address] [id number] [address] [place] [address], [place] [address] Aug, [facility] [address] [id number] [address] [place] [address], [place] [address] Aug, [facility] [address] [id number] [address] [place] [address], [place] [address] Aug, [facility] [address] [id number] [address] [place] [address], [place] [address] Jul, [facility] [address] [id number] [address] [place] [address], [place] [address] Jul, [facility] [address] [id number] [address] [place] [address], [place] [address] Jun, [facility] [address] [id number] [address] [place] [address], [place] [address] Jun, [facility] [address] [id number] [address] [place] [address], [place] [address] May, [facility] [address] [id number] [address] [place] [address], [place] [address] May, [facility] [address] [id number] [address] [place] [address], [place] [address] May, [facility] [address] [id number] [address] [place] [address], [place] [address] May, [facility] [address] [id number] [address] [place] [address], [place] [address] Jan, [facility] [address] [id number] [address] [place] [address], [place] [address] Jan, [facility] [address] [id number] [address] [place] [address], [place] [address] Nov, [facility] [address] [id number] [address] [place] [address], [place] [address] Nov, [facility] [address] [id number] [address] [place] [address], [place] [address] Nov, [facility] [address] [id number] [address] [place] [address], [place] [address] Nov, [facility] [address] [id number] [address] [place] [address], [place] [address] Nov, [facility] [address] [id number] [address] [place] [address], [place] [address] Nov, [facility] [address] [id number] [address] [place] [id number] Nov, [facility] [address] [id number] [address] [place] [address], [place] [address] Nov, [facility] [address] [id number] [address] [place] [address], [place] [address] Nov, [facility] [address] [id number] [address] [place] [address], [place] [address] Nov, [facility] [address] [id number] [address] [place] [id number] Oct, [facility] [address] [id number] [address] [place] [address], [place] [address] Oct, [facility] [address] [id number] [address] [place] [address], [place] [address] Oct, [facility] [address] [id number] [address] [place] [address], [place] [address] Oct, [facility] [address] [id number] [address] [place] [address], [place] [address] Sep, [facility] [address] [id number] [address] [place] [address], [place] [address] Sep, [facility] [address] [id number] [address] [place] [address], [place] [address] Aug, [facility] [address] [id number] [address] [place] [address], [place] [address] Aug, [facility] [address] [id number] [address] [place] [address], [place] [address] Aug, [facility] [address] [id number] [address] [place] [id number] Aug, [facility] [address] [id number] [address] [place] [address], [place] [address] Aug, [facility] [address] [id number] [place] [id number] Aug, [facility] [address] [id number] [address] [place] [id number] Aug, [facility] [address] [id number] [address] [place] [id number] Aug, [facility] [address] [id number] [address] [place] [address], [place] [address] Jul, [facility] [address] [id number] [address] [place] [address], [place] [address] Jul, [facility] [address] [id number] [address] [place] [address], [place] [address] Jul, [facility] [address] [id number] [address] [place] [address], [place] [address] Jul, [facility] [address] [id number] [address] [place] [address], [place] [address] Jul, [facility] [address] [id number] [address] [place] [address], [place] [address] Jun, [facility] [address] [id number] [address] [place] [address], [place] [address] May, [facility] [address] [id number] [address] [place] [address], [place] [address] Apr, [facility] [address] [id number] [address] [place] [address], [place] [address] February, [facility] [address] [id number] [address] [place] [address], [place] [address] Jan, [facility] [address] [id number] [address] [place] [address], [place] [address] Jan, [facility] [address] [id number] [address] [place] [address], [place] [address] Dec, [facility] [address] [id number] [address] [place] [address], [place] [address] Dec, [facility] [address] [id number] [address] [place] [address], [place] [address] Dec, [facility] [address] [id number] [address] [place] [address], [place] [address] Nov, [facility] [address] [id number] [address] [place] [address], [place] [address] Nov, [facility] [address] [id number] [address] [place] [address], [place] [address] Nov, [facility] [address] [id number] [address] [place] [address], [place] [address] Nov, IMMUNIZATIONS No Known Immunizations SOCIAL HISTORY [...] 02/[address] [facility], [facility],-minimal RCA blockage <20% 1996 [facility], mild nonspecific bulbar duodenitis 1996 Surgical History carotid endarterectomy, right- [facility] 01/14 015 Surgical History Heart cath with [facility]CA 2013 Surgical History Colonoscopy- tubular adenoma , hyperplastic polyp- repeat Colonoscopy 12/2016 Surgical History Bypass Surgery- CABG and Pacemaker 06/06 Hospitalization History heart attack 1996 Hospitalization History slurred speech, fever, left arm pain Sharifa Shah February 2015 Hospitalization History Pancreatitis 12/2015 Hospitalization History CABG 05/2018
--- OUTSIDE RECORDS SUMMARY | 2020-04-06 06:49 | XMS REPORT ---
Author Author Jermaine CAMPOS Organization [facility] [place] Address [address] [place] [address] Care Team Providers Care Applications Programmer Analyst Name Role Phone TIFFANIE CAMPOS Unavailable PROBLEMS Type Condition ICD9-CM Code CIS92-WU Code Onset Dates Condition S tatus SNOMED Code Problem Fatty liver K76.0 Active 09253807 7 Problem Chronic pain G89.29 Active 1100674 1 Problem Abdominal bloating R14.0 Active 1 13534865 Problem Diverticulosis of intestine without bleeding, unspecified intestinal tract location K57.90 Active 92524291 Problem Gastroesophageal reflux disease without esophagitis K21.9 Active 380163258 Problem COPD (chronic obstructive pulmonary disease) wit h chronic bronchitis J44.9 Active 152977600 Problem Bilateral carotid artery disease I77.9 Active 048835684 Problem Chronic bronchitis J42 Active 6 0716177 Problem Claudication of both lower extremities I73.9 Active 111265502 Problem Hyperlipemia E78.5 Active 1013499 4 Problem Non-rheumatic mitral regurgitation I34.0 Active 272822589 Problem Claudication I73.9 Active 1799599 6 Problem Peripheral arterial disease I73.9 Ac tive 144911781 Problem Pacemaker Z95.0 Active 167956151 Problem Chronic obstructive pulmonary disease, unspecified COPD ty pe J44.9 Active 49575712 Problem Tobacco abuse Z72.0 Active 022907 05 Problem Carpal tunnel syndrome on both sides G56.03 Active [id number] Problem PAD (peripheral artery disease) I73.9 Active 270172264 Problem Benign essential hypertension I10 Active 6015580 Problem CAD (coronary artery disease) I25.10 Active 50975070 Problem Mixed hyperlipidemia E78.2 Active 182336112 Problem Other chronic pain G89.29 Active 8 9172078 Problem Diet-controlled diabetes mellitus E11.9 Active 261107516 Problem Degenerative disc disease, cervical M50.30 Active 71739309 ALLERGIES No Information ENCOUNTERS Encounter Location Date Diagnosis [facility] [address] [id number], [place] [id number] Jan, [facility] [id number], [place] [id number] Jan, Diet-controlled diabetes mellitus E11.9 ; Benign essential hypertension I10 ; Tobacco abuse Z72.0 and Tobacco abuse counseling Z71.6 [facility] [address] [place] [address] [address] [id number], [place] [id number] Jan, [facility] [address] [facility] [address] [id number], [place] [id number] Aug, Carpal tunnel syndrome on both sides G56 .03 ; Sore of lower lip K13.0 ; Benign essential hypertension I10 ; COPD (chronic obstructive pulmonary disease) with chronic bronchitis J44.9 and Hyperlipemia E78.5 [facility] [address] [place] [address] A[address] [id number], [place] [id number] May, [facility] [place] [address] [place] [address] A[address] [id number], [place] [id number] Mar, [facility] [address] [place] [address] AVE [id number], [place] [id number] Mar, Facet arthritis of cervical region M47.8 12 and Cervical radiculopathy M54.12 [facility]ENTERSonendoWAGNER [address] [place] [address] A[address] [id number], [place] [id number] February, Degenerative disc disease, cervical M50. 30 ; Facet arthritis of cervical region M47.812 ; Cervical radiculopathy M54.12 and Pacemaker Z95.0 [facility] [address] [place] [address] A[address] [id number], [place] [id number] February, [facility] [address] [id number], [place] [id number] Jan, [facility] [address] [place] [address] A[address] [id number], [place] 307828584 Sep, Diet-controlled diabetes mellitus E11.9 ; Benign essential hypertension I10 and Tobacco abuse Z72.0 [facility] [address] [id number] [place] [address] Jul, Hyperlipemia E78.5 and CAD (coronary art janneth disease) I25.[address] [facility] [address] [id number] [place] [id number] Jun, CAD (coronary artery disease) I25.10 and Hyperlipemia E78.5 [facility] [address] [id number] [place] [id number] Jun, New onset type 2 diabetes mellitus E11.9 ; S/P CABG (coronary artery bypass graft) Z95.1 ; Benign essential hypertension I10 ; Other chronic pain G89.29 and S/P cardiac pacemaker procedure Z95.0 [facility] [address] [id number] [place] [id number] Jun, [facility] [address] [id number], [place] [id number] May, [facility] [address] [id number], [place] [id number] May, COPD (chronic obstructive pulmonary dise ase) with chronic bronchitis J44.9 ; Tobacco abuse Z72.0 and Tobacco abuse counseling Z71.6 [facility] [address] [id number], [place] [id number] Apr, CAD (coronary artery disease) I25.10 [facility] [address] [id number], [place] [id number] Mar, Peripheral arterial disease I73.9 [facility] [address] [id number] [place] [id number] February, Chronic pain G89.29 ; Hyperlipemia E78.5 and Benign essential hypertension I10 [facility] [address] [id number] [place] [id number] Jan, COPD (chronic obstructive pulmonary dise ase) with chronic bronchitis J44.9 [facility] [address] [id number], [place] [id number] Jan, [facility] [address] [id number], [place] [id number] Jan, Peripheral arterial disease I73.9 ; Carlo gn essential hypertension I10 ; Bilateral carotid artery disease I77.9 ; Claudication of both lower extremities I73.9 ; Mixed hyperlipidemia E78.2 ; Tobacco use Z72.0 and Non- rheumatic mitral regurgitation I34.0 [facility] [address] [id number], [place] [id number] Jan, RUQ pain R10.11 ; Gastroesophageal reflu x disease without esophagitis K21.9 and Change in stool R19.5 [facility] [address] [id number], [place] [id number] Jan, [facility] [address] [id number], [place] [id number] Jan, Neck pain M54.2 ; Benign essential hyper tension I10 ; COPD (chronic obstructive pulmonary disease) with chronic bronchitis J44.9 and Chronic obstructive pulmonary disease, unspecified COPD type J44.9 [facility] [address] [id number], [place] 712587553 Jan, Chronic obstructive pulmonary disease, u nspecified COPD type J44.9 [facility] [address] [id number], [place] [id number] Dec, [facility] [address] [id number], [place] [id number] Dec, [facility] [address] [id number], [place] [id number] Dec, COPD (chronic obstructive pulmonary dise ase) with chronic bronchitis J44.9 [facility] [address] [facility] [id number] [address] [place] [address] Dec, [facility] [address] [facility] [id number] [address] [place] [address] Dec, [facility] [address] [id number], [place] [id number] Nov, [facility]endoW[facility] [address] [place] [address] A[address] [id number], [place] [id number] Nov, Benign essential hypertension I10 and CO PD (chronic obstructive pulmonary disease) with chronic bronchitis J44.9 [facility] [address] [place] [address] A[address] [id number], [place] [id number] Nov, Hyperlipemia E78.5 ; Benign essential hy pertension I10 ; COPD (chronic obstructive pulmonary disease) with chronic bronchitis J44.9 ; Encounter for immunization Z23 ; Gastroesophageal reflux disease without esophagitis K21.9 and Chronic pain G89.29 [facility] [address] [place] [address] A[address] [id number], [place] [id number] Oct, COPD (chronic obstructive pulmonary dise ase) with chronic bronchitis J44.9 and Chronic obstructive pulmonary disease, unspecified COPD type J44.9 [facility] [address] [employer] [place] [address] A[address] [id number], [place] [id number] Oct, COPD (chronic obstructive pulmonary dise ase) with chronic bronchitis J44.9 and Chronic obstructive pulmonary disease, unspecified COPD type J44.9 [facility] [address] [place] [address] A[address] [id number], [place] 604334393 Oct, COPD (chronic obstructive pulmonary dise ase) with chronic bronchitis J44.9 and Chronic obstructive pulmonary disease, unspecified COPD type J44.9 [facility] [address] [place] [address] A[address] [id number], [place] [id number] Oct, Benign essential hypertension I10 and Ne ck pain M54.2 [facility]ERSonendoW[facility] [employer] [facility] [address] [id number], [place] [id number] Sep, PAD (peripheral artery disease) I73.9 ; Claudication of both lower extremities I73.9 ; Bilateral carotid artery disease I77.9 ; Benign essential hypertension I10 ; Hyperlipemia E78.5 and Dyspnea on exertion R06.09 [facility] [address] [id number], [place] [id number] Aug, Benign essential hypertension I10 ; Vannessa roesophageal reflux disease without esophagitis K21.9 and Cervical radiculopathy M54.12 [facility] [address] [id number] [place] [id number] Aug, Gastroesophageal reflux disease without esophagitis K21.[address] [facility] [address] [id number] [place] [id number] Aug, COPD (chronic obstructive pulmonary dise ase) with chronic bronchitis J44.9 [facility] [address] [id number] [place] 015051676 Jul, [facility] [address] [id number], [place] [id number] Jul, Benign essential hypertension I10 [facility] [address] [id number], [place] [id number] Jul, [facility] [address] [id number], [place] [id number] Jul, COPD (chronic obstructive pulmonary dise ase) with chronic bronchitis J44.9 [facility] [address] [id number], [place] 654347933 Jul, Neck pain M54.2 [facility] [address] [id number], [place] [id number] Jun, Claudication of both lower extremities I 73.9 ; PAD (peripheral artery disease) I73.9 ; Bilateral carotid artery disease I77.9 ; CAD (coronary artery disease) I25.10 ; Tobacco abuse Z72.0 ; Benign essential hypertension I10 ; Hyperlipemia E78.5 and Non-rheumatic mitral valve stenosis I34.2 [facility] [address] [id number] [place] 739641468 Jun, Chronic obstructive pulmonary disease, u nspecified COPD type J44.9 [facility] [address] [id number] [place] [id number] May, [facility] [address] [id number], [place] [id number] May, Chronic obstructive pulmonary disease, u nspecified COPD type J44.[address] [facility] [address] [id number] [place] [id number] May, Neck pain M54.2 ; Chronic obstructive pu lmonary disease, unspecified COPD type J44.9 and Cervical radiculopathy M54.[address] [facility] [address] [id number] [place] 732177986 May, [facility] [address] [id number] [place] [id number] Apr, [facility] [address] [id number] [place] 113089040 Apr, Gastroesophageal reflux disease without esophagitis K21.[address] [facility] [address] [id number] [place] [id number] Apr, COPD (chronic obstructive pulmonary dise ase) with chronic bronchitis J44.[address] [facility] [address] [id number] [place] [id number] Apr, [facility] [address] [id number] [place] 749252889 Apr, [facility] [address] [id number], [place] [id number] Apr, COPD (chronic obstructive pulmonary dise ase) with chronic bronchitis J44.9 ; Benign essential hypertension I10 ; Tobacco abuse counseling Z71.6 and Hyperlipemia E78.[address] [facility] [address] [id number] [place] [id number] February, COPD (chronic obstructive pulmonary dise ase) with chronic bronchitis J44.[address] [facility] [address] [id number] [place] 076882663 Jan, [facility] [address] [id number] [place] [id number] Jan, COPD (chronic obstructive pulmonary dise ase) with chronic bronchitis J44.[address] [facility] [address] [id number], [place] [id number] Oct, COPD (chronic obstructive pulmonary dise ase) with chronic bronchitis J44.9 [facility] [address] [id number], [place] [id number] Oct, Winter itch L29.[address] [facility] [address] [id number], [place] [id number] Oct, COPD (chronic obstructive pulmonary dise ase) with chronic bronchitis J44.9 ; Benign essential hypertension I10 ; Tobacco abuse Z72.0 and Gastroesophageal reflux disease without esophagitis K21.9 [facility] [address] [id number], [place] 131598975 Sep, Benign essential hypertension I10 [facility] [address] [id number], [place] [id number] Aug, [facility] [id number], [place] 904607830 Jul, [facility] [address] [id number], [place] 688382853 Apr, [facility] [address] [id number], [place] [id number] Apr, Abdominal bloating R14.0 ; Fatty liver K 76.0 ; Diverticulosis of intestine without bleeding, unspecified intestinal tract location K57.90 ; Chronic obstructive pulmonary disease, unspecified COPD type J44.9 and Benign essential hypertension I10 [facility] [address] [id number], [place] [id number] Apr, Mild early onset dysthymic disorder, in partial remission, with melancholic features, 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 [address] [id number], [place] [id number] Mar, Abdominal muscle strain, initial encount er S39.011A [facility] [id number], [place] [id number] Jan, Pancreatitis K85.9 ; Abdominal bloating R14.0 ; Chronic bronchitis J42 and Chronic pain G89.29 [facility] [address] [id number], [place] 232621775 Nov, [facility] [address] [id number], [place] [id number] Nov, [facility] [address] [id number], [place] [id number] Nov, Chronic bronchitis J42 ; Tobacco abuse Z 72.0 and Tobacco abuse counseling Z71.6 [facility] [address] [id number], [place] [id number] Oct, [facility] [address] [id number], [place] 125886975 Oct, Chronic bronchitis J42 ; Tobacco abuse Z 72.0 and Benign essential hypertension I10 [facility] [address] [id number], [place] [id number] Oct, Chronic bronchitis J42 ; Tobacco abuse Z 72.0 ; Tobacco abuse counseling Z71.6 ; Benign essential hypertension I10 and Hyperlipemia E78.5 [facility] [address] [facility] [id number] [address] [place] [address] Sep, [facility] [address] [id number], [place] [id number] Jul, [facility] [address] [id number] [address] [place] [address] Jul, Essential (primary) hyperten aida I10 [facility] [address] [facility] [id number] [address] [place] [address] Jul, [facility] [address] [id number], [place] [id number] Jul, [facility] [address] [id number], [place] [id number] Jun, Benign essential hypertension 401.1 ; Ge neralized edema 782.3 ; Chronic pain 338.29 and Hyperlipemia 272.4 [facility] [address] [id number], [place] [id number] May, Upper respiratory infection 465.9 and Co ugh 786.2 [facility] [address] [id number], [place] 599104979 Mar, Upper respiratory infection 465.9 ; 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 and Cough 786.2 [facility] [address] [facility] [address] [id number], [place] [id number] February, [facility] [address] [id number], [place] [id number] February, Status post bilateral carotid endarterec vito V45.89 ; CAD (coronary artery disease) 414.00 ; Benign essential hypertension 401.1 ; Hyperlipemia 272.4 ; Tobacco abuse 305.1 ; Tobacco abuse counseling V65.42 and Chronic bronchitis 491.9 [facility] [address] [id number] [address] [place] [address] Jan, [facility] [address] [id number] [address] [place] [address] Jan, [facility] [address] [id number] [address] [place] [address] Dec, [facility] [address] [id number] [address] [place] [address] Dec, [facility] [address] [id number] [address] [place] [address] Nov, [facility] [address] [id number] [address] [place] [address] Nov, [facility] [address] [id number] [address] [place] [address] Nov, [facility] [address] [id number] [address] [place] [address] Nov, [facility] [address] [id number] [address] [place] [address] Nov, [facility] [address] [id number] [address] [place] [address], [place] [address] Nov, [facility] [address] [id number] [address] [place] [address], [place] [address] Nov, [facility] [address] [id number] [address] [place] [address], [place] [address] Nov, [facility] [address] [id number] [address] [place] [address], [place] [address] Nov, [facility] [address] [id number] [address] [place] [address], [place] [address] Oct, [facility] [address] [id number] [address] [place] [address], [place] [address] Oct, [facility] [address] [id number] [address] [place] [address], [place] [address] Oct, [facility] [address] [id number] [address] [place] [address], [place] [address] Oct, [facility] [address] [id number] [address] [place] [address], [place] [address] Oct, [facility] [address] [id number] [address] [place] [address], [place] [address] Oct, [facility] [address] [id number] [address] [place] [id number] Oct, [facility] [address] [id number] [address] [place] [address], [place] [address] Oct, [facility] [address] [id number] [address] [place] [address], [place] [address] Oct, [facility] [address] [id number] [address] [place] [address] Oct, [facility] [address] [id number] [place] [id number] Oct, [facility] [address] [id number] [address] [place] [address] [place] [address] Oct, [facility] [address] [id number] [address] [place] [address], [place] [address] Sep, [facility] [address] [id number] [address] [place] [address], [place] [address] Sep, [facility] [address] [id number] [address] [place] [address], [place] [address] Aug, [facility] [address] [id number] [address] [place] [address], [place] [address] Aug, [facility] [address] [id number] [address] [place] [address], [place] [address] Aug, [facility] [address] [id number] [address] [place] [address], [place] [address] Aug, [facility] [address] [id number] [address] [place] [address], [place] [address] Jul, [facility] [address] [id number] [address] [place] [address], [place] [address] Jul, [facility] [address] [id number] [address] [place] [address], [place] [address] Jun, [facility] [address] [id number] [address] [place] [address], [place] [address] Jun, [facility] [address] [id number] [address] [place] [address], [place] [address] May, [facility] [address] [id number] [address] [place] [address], [place] [address] May, [facility] [address] [id number] [address] [place] [address], [place] [address] May, [facility] [address] [id number] [address] [place] [address], [place] [address] May, [facility] [address] [id number] [address] [place] [address], [place] [address] Jan, [facility] [address] [id number] [facility] [place] [address] Jan, [facility] [address] [id number] [address] [place] [address], [place] [address] Nov, [facility] [address] [id number] [address] [place] [address], [place] [address] Nov, [facility] [address] [id number] [address] [place] [address], [place] [address] Nov, [facility] [address] [id number] [address] [place] [address], [place] [address] Nov, [facility] [address] [id number] [address] [place] [address], [place] [address] Nov, [facility] [address] [id number] [address] [place] [address], [place] [address] Nov, [facility] [address] [id number] [address] [place] [address], [place] [address] Nov, [facility] [address] [id number] [address] [place] [address], [place] [address] Nov, [facility] [address] [id number] [address] [place] [address], [place] [address] Nov[facility] [address] [id number] [address] [place] [address], [place] [address] Nov, [facility] [address] [id number] [address] [place] [address], [place] [address] Oct, [facility] [address] [id number] [address] [place] [address], [place] [address] Oct, [facility] [address] [id number] [address] [place] [address], [place] [address] Oct, [facility] [address] [id number] [address] [place] [address], [place] [address] Oct, [facility] [address] [id number] [address] [place] [address], [place] [address] Sep, [facility] [address] [id number] [address] [place] [address], [place] [address] Sep, [facility] [address] [id number] [address] [place] [address], [place] [address] Aug, [facility] [address] [id number] [address] [place] [address], [place] [address] Aug, [facility] [address] [id number] [address] [place] [address], [place] [address] Aug, [facility] [address] [id number] [address] [place] [address], [place] [address] Aug, [facility] [address] [id number] [address] [place] [address], [place] [address] Aug, [facility] [address] [id number] [address] [place] [address], [place] [address] Aug, [facility] [address] [id number] [address] [place] [address], [place] [address] Aug, [facility] [address] [id number] [address] [place] [address], [place] [id number] Aug, [facility] [address] [id number] [address] [place] [address], [place] [address] Jul, [facility] [address] [id number] [address] [place] [address], [place] [address] Jul, [facility] [address] [id number] [address] [place] [id number] Jul, [facility] [address] [id number] [address] [place] [address], [place] [address] Jul, [facility] [address] [id number] [address] [place] [address], [place] [id number] Jul, [facility] [address] [id number] [address] [place] [phone] Jun, [facility] [address] [id number] [address] [place] [id number] May, [facility] [address] [id number] [address] [place] [id number] Apr, [facility] [address] [id number] [address] [place] [phone] February, [facility] [address] [id number] [address] [place] [id number] Jan, [facility] [address] [id number] [address] [place] [phone] Jan, [facility] [address] [id number] [address] [place] [id number] Dec, [facility] [address] [id number] [address] [place] [phone] Dec, [facility] [address] [id number] [address] [place] [id number] Dec, [facility] [address] [id number] [address] [place] [id number] Nov, [facility] [address] [id number] [address] [place] [id number] Nov, [facility] [address] [id number] [address] [place] [phone] Nov, [facility] [address] [id number] [address] [place] [phone] Nov, IMMUNIZATIONS No Known Immunizations SOCIAL HISTORY [...] chronic neck and back pain Medical History [place] x's 2 1996 and 2011 Medical History [...] 02/[address] Mane thakur [facility]- normal EF, LV function,-minimal RCA blockage <20% 1996 [facility], mild nonspecific bulbar duodenitis 1996 Surgical History carotid endarterectomy, right- [facility] 01/14 015 Surgical History Heart cath with PTCA 2013 Surgical History Colonoscopy- tubular adenoma , hyperplastic polyp- repeat Colonoscopy 12/2016 Surgical History Bypass Surgery- CABG and Pacemaker 06/06 Hospitalization History heart attack 1996 Hospitalization History slurred speech, fever, left arm pain Sharifa Shah February 2015 Hospitalization History Pancreatitis 12/2015 Hospitalization History CABG 05/2018
--- OUTSIDE RECORDS SUMMARY | 2020-04-06 06:49 | XMS REPORT ---
Author Author Jermaine CAMPOS [facility] Address [address] [place] [address] Care Team Providers Care Director Of Digital Platforms Name Role Phone TIFFANIE CAMPOS Unavailable PROBLEMS Type Condition ICD9-CM Code JHB49-YP Code Onset Dates Condition S tatus SNOMED Code Problem Fatty liver K76.0 Active 42835606 7 Problem Chronic pain G89.29 Active 0814255 1 Problem Abdominal bloating R14.0 Active 1 55786985 Problem Diverticulosis of intestine without bleeding, unspecified intestinal tract location K57.90 Active 30917026 Problem Gastroesophageal reflux disease without esophagitis K21.9 Active 187656048 Problem COPD (chronic obstructive pulmonary disease) wit h chronic bronchitis J44.9 Active 555943174 Problem Bilateral carotid artery disease I77.9 Active 426997203 Problem Chronic bronchitis J42 Active 6 7861559 Problem Claudication of both lower extremities I73.9 Active 146102829 Problem Hyperlipemia E78.5 Active 4860771 4 Problem Non-rheumatic mitral regurgitation I34.0 Active 873121345 Problem Claudication I73.9 Active 2708786 6 Problem Peripheral arterial disease I73.9 Ac tive 655916897 Problem Pacemaker Z95.0 Active 185397146 Problem Chronic obstructive pulmonary disease, unspecified COPD ty pe J44.9 Active 58395990 Problem Tobacco abuse Z72.0 Active 542196 05 Problem Carpal tunnel syndrome on both sides G56.03 Active [id number] Problem PAD (peripheral artery disease) I73.9 Active 143343941 Problem Benign essential hypertension I10 Active 6059558 Problem CAD (coronary artery disease) I25.10 Active 70936616 Problem Mixed hyperlipidemia E78.2 Active 011997914 Problem Other chronic pain G89.29 Active 8 6829861 Problem Diet-controlled diabetes mellitus E11.9 Active 512384182 Problem Degenerative disc disease, cervical M50.30 Active 65359418 ALLERGIES No Information ENCOUNTERS Encounter Location Date Diagnosis [facility] [address] [id number], [place] [id number] February, [facility] [address] [id number], [place] [address] February, [facility] [address] [id number], [place] 577142695 February, [facility] [address] [id number], [place] [address]11679133 Jan, [facility] [address] [id number], [place] [id number] Jan, [facility] [address] [facility] [address] [id number], [place] [address]481988 Jan, Diet-controlled diabetes mellitus E11.9 ; Benign essential hypertension I10 ; Tobacco abuse Z72.0 and Tobacco abuse counseling Z71.6 [facility] [address] [id number], [place] [address] Jan, [facility] [address] [facility] [address] [id number], [place] [id number] Aug, Carpal tunnel syndrome on both sides G56 .03 ; Sore of lower lip K13.0 ; Benign essential hypertension I10 ; COPD (chronic obstructive pulmonary disease) with chronic bronchitis J44.9 and Hyperlipemia E78.5 [facility] [address] [id number], [place] [address]95769668 May, [facility] [address] [id number], [place] [id number] Mar, [facility] [address] [id number], [place] [address]209[address] Mar, Facet arthritis of cervical region M47.8 12 and Cervical radiculopathy M54.12 [facility] [address] [id number], [place] [address]80669092 February, Degenerative disc disease, cervical M50. 30 ; Facet arthritis of cervical region M47.812 ; Cervical radiculopathy M54.12 and Pacemaker Z95.0 [facility] [address] [id number], [place] [id number] February, [facility] [address] [id number], [place] [id number] Jan, [facility] [address] [place] [address] AVE [id number], [place] [id number] Sep, Diet-controlled diabetes mellitus E11.9 ; Benign essential hypertension I10 and Tobacco abuse Z72.0 [facility] [address] [id number], [place] [address]18079258 Jul, Hyperlipemia E78.5 and CAD (coronary art janneth disease) I25.10 [facility] [address] [id number], [place] 082609656 Jun, CAD (coronary artery disease) I25.10 and Hyperlipemia E78.5 [facility] [employer] [place] [address] AVE [id number], [place] 797866495 Jun, New onset type 2 diabetes mellitus E11.9 ; S/P CABG (coronary artery bypass graft) Z95.1 ; Benign essential hypertension I10 ; Other chronic pain G89.29 and S/P cardiac pacemaker procedure Z95.0 [facility] [address] [employer] [place] [address] AVE [id number], [place] [id number] Jun, [facility] [address] [employer] [place] [address] AVE [id number], [place] [id number] May, [facility] [address] [id number], [place] [id number] May, COPD (chronic obstructive pulmonary dise ase) with chronic bronchitis J44.9 ; Tobacco abuse Z72.0 and Tobacco abuse counseling Z71.6 [facility] [address] [id number], [place] [id number] Apr, CAD (coronary artery disease) I25.10 [facility] BrandsW[facility] [address] [id number], [place] [id number] Mar, Peripheral arterial disease I73.9 [facility] [address] [id number] [place] [address] February, Chronic pain G89.29 ; Hyperlipemia E78.5 and Benign essential hypertension I10 [facility] [address] [id number], [place] [id number] Jan, COPD (chronic obstructive pulmonary dise ase) with chronic bronchitis J44.9 [facility] [address] [id number], [place] 858689364 Jan, [facility] [address] [id number], [place] 181781884 Jan, Peripheral arterial disease I73.9 ; Carlo gn essential hypertension I10 ; Bilateral carotid artery disease I77.9 ; Claudication of both lower extremities I73.9 ; Mixed hyperlipidemia E78.2 ; Tobacco use Z72.0 and Non- rheumatic mitral regurgitation I34.0 [email or web address] [address] [id number], [place] 267793502 Jan, RUQ pain R10.11 ; Gastroesophageal reflu x disease without esophagitis K21.9 and Change in stool R19.5 [email or web address] [address] [id number], [place] 484247616 Jan, [email or web address] [address] [id number], [place] 7478545[address] Jan, Neck pain M54.2 ; Benign essential hyper tension I10 ; COPD (chronic obstructive pulmonary disease) with chronic bronchitis J44.9 and Chronic obstructive pulmonary disease, unspecified COPD type J44.9 [facility] [address] [id number], [place] 889145058 Jan, Chronic obstructive pulmonary disease, u nspecified COPD type J44.9 [facility] [address] [id number], [place] [id number] Dec, [email or web address] [address] [id number], [place] 626749120 Dec, [email or web address] [address] [place] [address] AVE [id number], [place] 926115035 Dec, COPD (chronic obstructive pulmonary dise ase) with chronic bronchitis J44.9 [facility] [address] [facility] [id number] [place] [address] Dec, [facility] [address] [facility] [id number] [address] [place] [address] Dec, [facility] [address] [id number], [place] [id number] Nov, [facility] [address] [id number], [place] 353636019 Nov, Benign essential hypertension I10 and CO PD (chronic obstructive pulmonary disease) with chronic bronchitis J44.[address] [id number], [place] 899525122 Nov, Hyperlipemia E78.5 ; Benign essential hy pertension I10 ; COPD (chronic obstructive pulmonary disease) with chronic bronchitis J44.9 ; Encounter for immunization Z23 ; Gastroesophageal reflux disease without esophagitis K21.9 and Chronic pain G89.29 [facility] [address] [id number], [place] 588694248 Oct, COPD (chronic obstructive pulmonary dise ase) with chronic bronchitis J44.9 and Chronic obstructive pulmonary disease, unspecified COPD type J44.9 [facility] [address] [id number], [place] 600962949 Oct, COPD (chronic obstructive pulmonary dise ase) with chronic bronchitis J44.9 and Chronic obstructive pulmonary disease, unspecified COPD type J44.9 [facility] [address] [id number], [place] 662695351 Oct, COPD (chronic obstructive pulmonary dise ase) with chronic bronchitis J44.9 and Chronic obstructive pulmonary disease, unspecified COPD type J44.9 [facility] [address] [id number], [place] 907415716 Oct, Benign essential hypertension I10 and Ne ck pain M54.2 [facility] [address] [id number], [place] 637158073 Sep, PAD (peripheral artery disease) I73.9 ; Claudication of both lower extremities I73.9 ; Bilateral carotid artery disease I77.9 ; Benign essential hypertension I10 ; Hyperlipemia E78.5 and Dyspnea on exertion R06.09 [email or web address] [id number], [place] 007920203 Aug, Benign essential hypertension I10 ; Vannessa roesophageal reflux disease without esophagitis K21.9 and Cervical radiculopathy M54.12 [email or web address] [address] [address] [id number], [place] 159490496 Aug, Gastroesophageal reflux disease without esophagitis K21.9 [facility]EN[facility] BrandsW[facility]NER [address] [id number], [place] 196674349 Aug, COPD (chronic obstructive pulmonary dise ase) with chronic bronchitis J44.9 [email or web address] [address] [id number], [place] 724823382 Jul, [facility] [address] [id number], [place] 352180816 Jul, Benign essential hypertension I10 [email or web address] [address] [address] [id number], [place] 343296702 Jul, [facility] BrandsW[facility] [address] [id number], [place] 641950419 Jul, COPD (chronic obstructive pulmonary dise ase) with chronic bronchitis J44.9 [email or web address] [address] [id number], [place] 141247505 Jul, Neck pain M54.2 [email or web address] [address] [address] [id number], [place] 199776294 Jun, Claudication of both lower extremities I 73.9 ; PAD (peripheral artery disease) I73.9 ; Bilateral carotid artery disease I77.9 ; CAD (coronary artery disease) I25.10 ; Tobacco abuse Z72.0 ; Benign essential hypertension I10 ; Hyperlipemia E78.5 and Non-rheumatic mitral valve stenosis I34.[address] [facility] [address] [id number] [place] 393635563 Jun, Chronic obstructive pulmonary disease, u nspecified COPD type J44.[address] [facility] [address] [id number] [place] 363683270 May, [facility] [address] [id number] [place] 653355440 May, Chronic obstructive pulmonary disease, u nspecified COPD type J44.9 [facility] [address] [id number] [place] 370722704 May, Neck pain M54.2 ; Chronic obstructive pu lmonary disease, unspecified COPD type J44.9 and Cervical radiculopathy M54.[address] [facility] [address] [id number] [place] 471997023 May, [facility] [address] [id number] [place] 629340798 Apr, [facility] [address] [id number] [place] 902426198 Apr, Gastroesophageal reflux disease without esophagitis K21.[address] [facility] [address] [id number] [place] 076200765 Apr, COPD (chronic obstructive pulmonary dise ase) with chronic bronchitis J44.[address] [facility] [address] [id number] [place] 295447748 Apr, [facility] [address] [id number] [place] 588760042 Apr, [facility] [address] [id number] [place] 700923297 Apr, COPD (chronic obstructive pulmonary dise ase) with chronic bronchitis J44.9 ; Benign essential hypertension I10 ; Tobacco abuse counseling Z71.6 and Hyperlipemia E78.[address] [facility] [address] [id number] [place] 016159985 February, COPD (chronic obstructive pulmonary dise ase) with chronic bronchitis J44.[address] [facility] [address] [id number] [place] [id number] Jan, [facility] [address] [id number], [place] 505970382 Jan, COPD (chronic obstructive pulmonary dise ase) with chronic bronchitis J44.[address] [facility] [address] [id number], [place] 902946367 Oct, COPD (chronic obstructive pulmonary dise ase) with chronic bronchitis J44.[address] [facility] [address] [id number], [place] 568395719 Oct, Winter itch L29.[address] [facility] [address] [id number], [place] 195719333 Oct, COPD (chronic obstructive pulmonary dise ase) with chronic bronchitis J44.9 ; Benign essential hypertension I10 ; Tobacco abuse Z72.0 and Gastroesophageal reflux disease without esophagitis K21.9 [facility] [address] [id number], [place] 095113512 Sep, Benign essential hypertension I10 [facility] [address] [id number], [place] 600597714 Aug, [facility] [address] [id number], [place] 910117909 Jul, [facility] [address] [id number], [place] [id number] Apr, [facility] [address] [id number], [place] [id number] Apr, Abdominal bloating R14.0 ; Fatty liver K 76.0 ; Diverticulosis of intestine without bleeding, unspecified intestinal tract location K57.90 ; Chronic obstructive pulmonary disease, unspecified COPD type J44.9 and Benign essential hypertension I10 [facility] [address] [id number], [place] 289341207 Apr, Mild early onset dysthymic disorder, in partial remission, with melancholic features, 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 [facility] [address] [id number], [place] 731706106 Mar, Abdominal muscle strain, initial encount er S39.011A [facility] [address] [id number], [place] 652362907 Jan, Pancreatitis K85.9 ; Abdominal bloating R14.0 ; Chronic bronchitis J42 and Chronic pain G89.29 [facility] [address] [id number], [place] 927254498 Nov, [facility]ORIALNeater Pet BrandsWAGNER[address] AVPickens [facility] Medical [id number] [place] [id number] Nov, [facility] [address] [id number], [place] 816191596 Nov, Chronic bronchitis J42 ; Tobacco abuse Z 72.0 and Tobacco abuse counseling Z71.6 [facility] [address] [employer] [place] [address] AVE [id number], [place] 529883830 Oct, [facility]IALNeater Pet BrandsWAGNER[address] [id number], [place] 013583560 Oct, Chronic bronchitis J42 ; Tobacco abuse Z 72.0 and Benign essential hypertension I10 [facility] [address] [employer] [place] [address] AVE [id number], [place] 731899215 Oct, Chronic bronchitis J42 ; Tobacco abuse Z 72.0 ; Tobacco abuse counseling Z71.6 ; Benign essential hypertension I10 and Hyperlipemia E78.5 [facility] [address] [facility] [id number] [address] [place] [address] Sep, [facility] [address]NER[address] [id number], [place] [id number] Jul, [facility] [address] [facility] [id number] [address] [place] [address] Jul, Essential (primary) hyperten aida I10 [place] [id number] [facility] [id number] [address] [place] [address] Jul, [facility] [address] [facility] [address] [id number], [place] [id number] Jul, [facility] [address] [facility] [address] [id number], [place] 140323525 Jun, Benign essential hypertension 401.1 ; Ge neralized edema 782.3 ; Chronic pain 338.29 and Hyperlipemia 272.4 [facility] [address] [place] [address] AVE [id number], [place] 925017570 May, Upper respiratory infection 465.9 and Co ugh 786.[address] [id number] [place] [address] [id number] Mar, Upper respiratory infection 465.9 ; 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 [address] [place] [id number] [address] [place] [address] Jan, [facility] [address] [place] [id number] [address] [place] [address] Jan, [facility] [address] [place] [address] Dec, [facility] [address] [place] [id number] [address] [place] [address] Dec, [facility] [address] [place] [id number] [address] [place] [address] Nov, [facility] [address] [id number] [address] [place] [address], [place] [address] Nov, 2014 [facility] [address] [id number] [address] [place] [address], [place] [address] Nov, 2014 [facility] [address] [id number] [address] [place] [address], [place] [address] Nov, 2014 [facility] [address] [id number] [address] [place] [address], [place] [address] Nov, 2014 [facility] [address] [id number] [address] [place] [address], [place] [address] Nov, 2014 [facility] [address] [id number] [address] [place] [address], [place] [address] Nov, 2014 [facility] [address] [id number] [address] [place] [address], [place] [address] Nov, [facility] [address] [id number] [address] [place] [address], [place] [address] Nov, [facility] [address] [id number] [address] [place] [address], [place] [address] Oct, [facility] [address] [id number] [address] [place] [address], [place] [address] Oct, [facility] [address] [id number] [address] [place] [address], [place] [address] Oct, [facility] [address] [id number] [address] [place] [address], [place] [address] Oct, [facility] [address] [id number] [address] [place] [address], [place] [address] Oct, [facility] [address] [id number] [address] [place] [address], [place] [address] Oct, [facility] [address] [id number] [address] [place] [address], [place] [address] Oct, [facility] [address] [id number] [address] [place] [address] [place] [address] Oct, [facility] [address] [id number] [address] [place] [address], [place] [address] Oct, [facility] [address] [id number] [address] [place] [address], [place] [address] Oct, [facility] [address] [id number] [place] [id number] Oct, [facility] [address] [id number] [address] [place] [address], [place] [address] Oct, [facility] [address] [id number] [address] [place] [address], [place] [address] Sep, [facility] [address] [id number] [address] [place] [address], [place] [address] Sep, [facility] [address] [id number] [address] [place] [address], [place] [address] Aug, [facility] [address] [id number] [address] [place] [address], [place] [address] Aug, [facility] [address] [id number] [address] [place] [address], [place] [address] Aug, [facility] [address] [id number] [address] [place] [address], [place] [address] Aug, [facility] [address] [id number] [address] [place] [address], [place] [address] Jul, [facility] [address] [id number] [address] [place] [address], [place] [address] Jul, [facility] [address] [id number] [address] [place] [address], [place] [address] Jun, [facility] [address] [id number] [address] [place] [address], [place] [address] Jun, [facility] [address] [id number] [address] [place] [address], [place] [address] May, [facility] [address] [id number] [address] [place] [address], [place] [address] May, [facility] [address] [id number] [address] [place] [address], [place] [address] May, [facility] [address] [id number] [address] [place] [address], [place] [address] May, [facility] [address] [id number] [address] [place] [address], [place] [address] Jan, [facility] [address] [id number] [address] [place] [address], [place] [address] Jan, [facility] [address] [id number] [address] [place] [address], [place] [address] Nov, [facility] [address] [id number] [address] [place] [address], [place] [address] Nov, [facility] [address] [id number] [address] [place] [address], [place] [address] Nov, [facility] [address] [id number] [address] [place] [address], [place] [address] Nov, [facility] [address] [id number] [address] [place] [address], [place] [address] Nov, [facility] [address] [id number] [address] [place] [address], [place] [address] Nov, [facility] [address] [id number] [address] [place] [id number] Nov, [facility] [address] [id number] [address] [place] [address], [place] [address] Nov, [facility] [address] [id number] [address] [place] [address], [place] [address] Nov, [facility] [address] [id number] [address] [place] [address], [place] [address] Nov, [facility] [address] [id number] [address] [place] [id number] Oct, [facility] [address] [id number] [address] [place] [address], [place] [address] Oct, [facility] [address] [id number] [address] [place] [address], [place] [address] Oct, [facility] [address] [id number] [address] [place] [address], [place] [address] Oct, [facility] [address] [id number] [address] [place] [address], [place] [address] Sep, [facility] [address] [id number] [address] [place] [address], [place] [address] Sep, [facility] [address] [id number] [address] [place] [address], [place] [address] Aug, [facility] [address] [id number] [address] [place] [address], [place] [address] Aug, [facility] [facility] [address] [id number] [address] [place] [address], [place] [address] Aug, [facility] [address] [id number] [address] [place] [address] Aug, [facility] [address] [id number] [address] [place] [address], [place] [address] Aug, [facility] [address] [id number] [address] [place] [address] Aug, [facility] [address] [id number] [address] [place] [address] Aug, [facility] [address] [id number] [address] [place] [address] Aug, [facility] [address] [id number] [address] [place] [address], [place] [address] Jul, [facility] [address] [id number] [address] [place] [address], [place] [address] Jul, [facility] [address] [id number] [address] [place] [address], [place] [address] Jul, [facility] [address] [id number] [address] [place] [address], [place] [address] Jul, [facility] [address] [id number] [address] [place] [address], [place] [address] Jul, [facility] [address] [id number] [address] [place] [address], [place] [address] Jun, [facility] [address] [id number] [address] [place] [address], [place] [address] May, [facility] [address] [id number] [address] [place] [address], [place] [address] Apr, [facility] [address] [id number] [address] [place] [address], [place] [address] February, [facility] [address] [id number] [address] [place] [address], [place] [address] Jan, [facility] [address] [id number] [address] [place] [address], [place] [address] Jan, [facility] [address] [id number] [address] [place] [address], [place] [address] Dec, [facility] [address] [id number] [address] [place] [address], [place] [address] Dec, [facility] [address] [id number] [address] [place] [address], [place] [address] Dec, [facility] [address] [id number] [address] [place] [address], [place] [address] Nov, [facility] [address] [id number] [address] [place] [address], [place] [address] Nov, [facility] [address] [id number] [address] [place] [address], [place] [address] Nov, [facility] [address] [id number] [address] [place] [address], [place] [address] Nov, IMMUNIZATIONS No Known Immunizations SOCIAL HISTORY [...] chronic neck and back pain Medical History RI x's 2 1996 and 2011 Medical History [...] 02/[address] [facility], LV function,-minimal RCA blockage <20% 1996 [facility], mild nonspecific bulbar duodenitis 1996 Surgical History carotid endarterectomy, right- [facility] 01/14 015 Surgical History Heart cath with PTCA 2013 Surgical History Colonoscopy- tubular adenoma , hyperplastic polyp- repeat Colonoscopy 12/2016 Surgical History Bypass Surgery- CABG and Pacemaker 06/06 Hospitalization History heart attack 1996 Hospitalization History slurred speech, fever, left arm pain Sharifa Shah February 2015 Hospitalization History Pancreatitis 12/2015 Hospitalization History CABG 05/2018
--- OUTSIDE RECORDS SUMMARY | 2020-04-06 06:49 | XMS REPORT ---
Author Author Jermaine CAMPOS Organization [facility] Address [address] [place] [address] Care Team Providers Care Irrigator Name Role Phone TIFFANIE CAMPOS Unavailable PROBLEMS Type Condition ICD9-CM Code TCJ55-AV Code Onset Dates Condition S tatus SNOMED Code Problem Fatty liver K76.0 Active 90511600 7 Problem Chronic pain G89.29 Active 7942851 1 Problem Abdominal bloating R14.0 Active 1 46353557 Problem Diverticulosis of intestine without bleeding, unspecified intestinal tract location K57.90 Active 82581154 Problem Gastroesophageal reflux disease without esophagitis K21.9 Active 296675932 Problem COPD (chronic obstructive pulmonary disease) wit h chronic bronchitis J44.9 Active 276206546 Problem Bilateral carotid artery disease I77.9 Active 667710973 Problem Chronic bronchitis J42 Active 6 2881348 Problem Claudication of both lower extremities I73.9 Active 675086590 Problem Hyperlipemia E78.5 Active 9252609 4 Problem Non-rheumatic mitral regurgitation I34.0 Active 196521403 Problem Claudication I73.9 Active 3429974 6 Problem Peripheral arterial disease I73.9 Ac tive 481841096 Problem Pacemaker Z95.0 Active 574884133 Problem Chronic obstructive pulmonary disease, unspecified COPD ty pe J44.9 Active 27593263 Problem Tobacco abuse Z72.0 Active 379307 05 Problem Carpal tunnel syndrome on both sides G56.03 Active 79830297306865865 Problem PAD (peripheral artery disease) I73.9 Active 633941792 Problem Benign essential hypertension I10 Active 9098723 Problem CAD (coronary artery disease) I25.10 Active 25193138 Problem Mixed hyperlipidemia E78.2 Active 121255725 Problem Other chronic pain G89.29 Active 8 9254876 Problem Diet-controlled diabetes mellitus E11.9 Active 695410040 Problem Degenerative disc disease, cervical M50.30 Active 00223360 ALLERGIES No Information ENCOUNTERS Encounter Location Date Diagnosis [facility] [address] [id number], [place] [id number] February, [facility] [address] [id number], [place] [id number] February, [facility] [address] [id number], [place] [id number] February, [facility] [address] [id number], [place] [id number] Jan, [facility] [address] [id number], [place] [id number] Jan, [facility] [facility] [id number], [place] [id number] Jan, Diet-controlled diabetes mellitus E11.9 ; Benign essential hypertension I10 ; Tobacco abuse Z72.0 and Tobacco abuse counseling Z71.6 [facility] [address] [id number], [place] [id number] Jan, [facility] [address] [facility] [id number], [place] [id number] Aug, Carpal tunnel syndrome on both sides G56 .03 ; Sore of lower lip K13.0 ; Benign essential hypertension I10 ; COPD (chronic obstructive pulmonary disease) with chronic bronchitis J44.9 and Hyperlipemia E78.5 [facility] [address] [id number], [place] [id number] May, [facility] [address] [id number], [place] [id number] Mar, [facility] [address] [address] [id number], [place] [id number] Mar, Facet arthritis of cervical region M47.8 12 and Cervical radiculopathy M54.12 [facility] [address] [address] [id number], [place] [id number] February, Degenerative disc disease, cervical M50. 30 ; Facet arthritis of cervical region M47.812 ; Cervical radiculopathy M54.12 and Pacemaker Z95.0 [facility] [address] [id number], [place] [id number] February, [facility] [address] [id number], [place] [id number] Jan, [facility] [address] [place] [address] AVE [id number], [place] 454678187 Sep, Diet-controlled diabetes mellitus E11.9 ; Benign essential hypertension I10 and Tobacco abuse Z72.0 [facility] [address] [id number], [place] 784973139 Jul, Hyperlipemia E78.5 and CAD (coronary art janneth disease) I25.10 [facility] [address] [id number], [place] [id number] Jun, CAD (coronary artery disease) I25.10 and Hyperlipemia E78.5 [facility] [address] [place] [address] AVE [id number], [place] [id number] Jun, New onset type 2 diabetes mellitus E11.9 ; S/P CABG (coronary artery bypass graft) Z95.1 ; Benign essential hypertension I10 ; Other chronic pain G89.29 and S/P cardiac pacemaker procedure Z95.0 [facility] [address] [place] [address] AVE [id number], [place] [id number] Jun, [facility] [address] [place] [address] AVE [id number], [place] [id number] May, [facility] [address] [id number], [place] 758328904 May, COPD (chronic obstructive pulmonary dise ase) with chronic bronchitis J44.9 ; Tobacco abuse Z72.0 and Tobacco abuse counseling Z71.6 [facility] [address] [id number], [place] [id number] Apr, CAD (coronary artery disease) I25.10 [facility] [address] [id number], [place] [id number] Mar, Peripheral arterial disease I73.9 [facility] [address] [id number] [place] [address] February, Chronic pain G89.29 ; Hyperlipemia E78.5 and Benign essential hypertension I10 [facility] [address] [id number], [place] 910842765 Jan, COPD (chronic obstructive pulmonary dise ase) with chronic bronchitis J44.9 [facility] [address] [id number], [place] [id number] Jan, [facility] [address] [id number], [place] 877280771 Jan, Peripheral arterial disease I73.9 ; Carlo gn essential hypertension I10 ; Bilateral carotid artery disease I77.9 ; Claudication of both lower extremities I73.9 ; Mixed hyperlipidemia E78.2 ; Tobacco use Z72.0 and Non- rheumatic mitral regurgitation I34.0 [facility] [address] [address] [id number], [place] 613773032 Jan, RUQ pain R10.11 ; Gastroesophageal reflu x disease without esophagitis K21.9 and Change in stool R19.5 [facility] [address] [address] [id number], [place] [id number] Jan, [facility] [address] [id number], [place] [id number] Jan, Neck pain M54.2 ; Benign essential hyper tension I10 ; COPD (chronic obstructive pulmonary disease) with chronic bronchitis J44.9 and Chronic obstructive pulmonary disease, unspecified COPD type J44.9 [facility] [address] [id number], [place] [id number] Jan, Chronic obstructive pulmonary disease, u nspecified COPD type J44.9 [facility] [address] [id number], [place] [id number] Dec, [facility] [address] [id number], [place] [id number] Dec, [facility] [address] [place] [address] AVE [id number], [place] [id number] Dec, COPD (chronic obstructive pulmonary dise ase) with chronic bronchitis J44.9 [facility] [address] [facility] [id number] [place] [address] Dec, [facility] [address] [facility] [id number] [address] [place] [address] Dec, [facility] [address] [id number], [place] [id number] Nov, [facility] [address] [id number], [place] [id number] Nov, Benign essential hypertension I10 and CO PD (chronic obstructive pulmonary disease) with chronic bronchitis J44.[address] [id number], [place] [id number] Nov, Hyperlipemia E78.5 ; Benign essential hy pertension I10 ; COPD (chronic obstructive pulmonary disease) with chronic bronchitis J44.9 ; Encounter for immunization Z23 ; Gastroesophageal reflux disease without esophagitis K21.9 and Chronic pain G89.29 [facility] [address] [id number], [place] 799361935 Oct, COPD (chronic obstructive pulmonary dise ase) with chronic bronchitis J44.9 and Chronic obstructive pulmonary disease, unspecified COPD type J44.9 [facility] [address] [id number], [place] [id number] Oct, COPD (chronic obstructive pulmonary dise ase) with chronic bronchitis J44.9 and Chronic obstructive pulmonary disease, unspecified COPD type J44.9 [facility] [address] [id number], [place] 630680140 Oct, COPD (chronic obstructive pulmonary dise ase) with chronic bronchitis J44.9 and Chronic obstructive pulmonary disease, unspecified COPD type J44.9 [facility] [address] [id number], [place] 587144398 Oct, Benign essential hypertension I10 and Ne ck pain M54.2 [facility] [address] [id number], [place] [id number] Sep, PAD (peripheral artery disease) I73.9 ; Claudication of both lower extremities I73.9 ; Bilateral carotid artery disease I77.9 ; Benign essential hypertension I10 ; Hyperlipemia E78.5 and Dyspnea on exertion R06.09 [facility] [address] [id number], [place] 722994442 Aug, Benign essential hypertension I10 ; Vannessa roesophageal reflux disease without esophagitis K21.9 and Cervical radiculopathy M54.12 [facility] [address] [address] [id number], [place] [id number] Aug, Gastroesophageal reflux disease without esophagitis K21.9 [facility] [address] [id number], [place] [id number] Aug, COPD (chronic obstructive pulmonary dise ase) with chronic bronchitis J44.9 [facility] [address] [id number], [place] [id number] Jul, [facility] [address] [id number], [place] [id number] Jul, Benign essential hypertension I10 [facility] [address] [address] [id number], [place] [id number] Jul, [facility] [address] [id number], [place] [id number] Jul, COPD (chronic obstructive pulmonary dise ase) with chronic bronchitis J44.9 [facility] [address] [id number], [place] 055144830 Jul, Neck pain M54.2 [facility] [address] [address] [id number], [place] [id number] Jun, Claudication of both lower extremities I 73.9 ; PAD (peripheral artery disease) I73.9 ; Bilateral carotid artery disease I77.9 ; CAD (coronary artery disease) I25.10 ; Tobacco abuse Z72.0 ; Benign essential hypertension I10 ; Hyperlipemia E78.5 and Non-rheumatic mitral valve stenosis I34.[address] [facility] [address] [id number] [place] [id number] Jun, Chronic obstructive pulmonary disease, u nspecified COPD type J44.[address] [facility] [address] [id number] [place] [id number] May, [facility] [address] [id number] [place] 584856186 May, Chronic obstructive pulmonary disease, u nspecified COPD type J44.9 [facility] [address] [id number] [place] 174517923 May, Neck pain M54.2 ; Chronic obstructive pu lmonary disease, unspecified COPD type J44.9 and Cervical radiculopathy M54.[address] [facility] [address] [id number] [place] [id number] May, [facility] [address] [id number] [place] 919000377 Apr, [facility] [address] [id number] [place] [id number] Apr, Gastroesophageal reflux disease without esophagitis K21.[address] [facility] [address] [id number] [place] [id number] Apr, COPD (chronic obstructive pulmonary dise ase) with chronic bronchitis J44.[address] [facility] [address] [id number] [place] 724473335 Apr, [facility] [address] [id number] [place] [id number] Apr, [facility] [address] [id number] [place] [id number] Apr, COPD (chronic obstructive pulmonary dise ase) with chronic bronchitis J44.9 ; Benign essential hypertension I10 ; Tobacco abuse counseling Z71.6 and Hyperlipemia E78.[address] [facility] [address] [id number] [place] [id number] February, COPD (chronic obstructive pulmonary dise ase) with chronic bronchitis J44.[address] [facility] [address] [id number] [place] [id number] Jan, [facility] [address] [id number], [place] [id number] Jan, COPD (chronic obstructive pulmonary dise ase) with chronic bronchitis J44.[address] [facility] [address] [id number], [place] [id number] Oct, COPD (chronic obstructive pulmonary dise ase) with chronic bronchitis J44.[address] [facility] [address] [id number], [place] 901984772 Oct, Winter itch L29.[address] [facility] [address] [id number], [place] [id number] Oct, COPD (chronic obstructive pulmonary dise ase) with chronic bronchitis J44.9 ; Benign essential hypertension I10 ; Tobacco abuse Z72.0 and Gastroesophageal reflux disease without esophagitis K21.9 [facility] [address] [id number], [place] 909825907 Sep, Benign essential hypertension I10 [facility] [address] [id number], [place] [id number] Aug, [facility] [address] [id number], [place] [id number] Jul, [facility] [address] [id number], [place] [id number] Apr, [facility] [address] [id number], [place] [id number] Apr, Abdominal bloating R14.0 ; Fatty liver K 76.0 ; Diverticulosis of intestine without bleeding, unspecified intestinal tract location K57.90 ; Chronic obstructive pulmonary disease, unspecified COPD type J44.9 and Benign essential hypertension I10 [address] [id number], [place] [id number] Apr, Mild early onset dysthymic disorder, in partial remission, with melancholic features, 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 [facility] [address] [id number], [place] [id number] Mar, Abdominal muscle strain, initial encount er S39.011A [facility] [address] [id number], [place] 645257707 Jan, Pancreatitis K85.9 ; Abdominal bloating R14.0 ; Chronic bronchitis J42 and Chronic pain G89.29 [facility] [address] [id number], [place] [id number] Nov, [facility] AVWiregrass Medical [id number] [place] [id number] Nov, [facility] [address] [id number], [place] [id number] Nov, Chronic bronchitis J42 ; Tobacco abuse Z 72.0 and Tobacco abuse counseling Z71.6 [facility] [address] [place] [address] AVE [id number], [place] [id number] Oct, [facility] [id number], [place] [id number] Oct, Chronic bronchitis J42 ; Tobacco abuse Z 72.0 and Benign essential hypertension I10 [facility] [address] [place] [address] AVE [id number], [place] 601552412 Oct, Chronic bronchitis J42 ; Tobacco abuse Z 72.0 ; Tobacco abuse counseling Z71.6 ; Benign essential hypertension I10 and Hyperlipemia E78.5 [facility] [address] [facility] [id number] [address] [place] [address] Sep, [facility] [address] [id number], [place] [id number] Jul, [facility] [address] [facility] [id number] [address] [place] [address] Jul, Essential (primary) hyperten aida I10 [place] [id number] [facility] [id number] [address] [place] [address] Jul, [facility] [address] [facility] [address] [id number], [place] [id number] Jul, [facility] [address] 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 [address] [id number], [place] [id number] February, Status post bilateral carotid endarterec vito V45.89 ; CAD (coronary artery disease) 414.00 ; Benign essential hypertension 401.1 ; Hyperlipemia 272.4 ; Tobacco abuse 305.1 ; Tobacco abuse counseling V65.42 and Chronic bronchitis 491.9 [facility] [address] [place] [id number] [address] [place] [address] Jan, [facility] [address] [place] [id number] [address] [place] [address] Jan, [facility] [address] [place] [address] Dec, [facility] [address] [place] [id number] [address] [place] [address] Dec, [facility] [address] [place] [id number] [address] [place] [address] Nov, [facility] [address] [id number] [address] [place] [address], [place] [address] Nov, 2014 [facility] [address] [id number] [address] [place] [address], [place] [address] Nov, 2014 [facility] [address] [id number] [address] [place] [address], [place] [address] Nov, 2014 [facility] [address] [id number] [address] [place] [address], [place] [address] Nov, 2014 [facility] [address] [id number] [address] [place] [address], [place] [address] Nov, 2014 [facility] [address] [id number] [address] [place] [address], [place] [address] Nov, 2014 [facility] [address] [id number] [address] [place] [address], [place] [address] Nov, [facility] [address] [id number] [address] [place] [address], [place] [address] Nov, [facility] [address] [id number] [address] [place] [address], [place] [address] Oct, [facility] [address] [id number] [address] [place] [address], [place] [address] Oct, [facility] [address] [id number] [address] [place] [address], [place] [address] Oct, [facility] [address] [id number] [address] [place] [address], [place] [address] Oct, [facility] [address] [id number] [address] [place] [address], [place] [address] Oct, [facility] [address] [id number] [address] [place] [address], [place] [address] Oct, [facility] [address] [id number] [address] [place] [address], [place] [address] Oct, [facility] [address] [id number] [address] [place] [address] [place] [address] Oct, [facility] [address] [id number] [address] [place] [address], [place] [address] Oct, [facility] [address] [id number] [address] [place] [address], [place] [address] Oct, [facility] [address] [id number] [place] [id number] Oct, [facility] [address] [id number] [address] [place] [address], [place] [address] Oct, [facility] [address] [id number] [address] [place] [address], [place] [address] Sep, [facility] [address] [id number] [address] [place] [address], [place] [address] Sep, [facility] [address] [id number] [address] [place] [address], [place] [address] Aug, [facility] [address] [id number] [address] [place] [address], [place] [address] Aug, [facility] [address] [id number] [address] [place] [address], [place] [address] Aug, [facility] [address] [id number] [address] [place] [address], [place] [address] Aug, [facility] [address] [id number] [address] [place] [address], [place] [address] Jul, [facility] [address] [id number] [address] [place] [address], [place] [address] Jul, [facility] [address] [id number] [address] [place] [address], [place] [address] Jun, [facility] [address] [id number] [address] [place] [address], [place] [address] Jun, [facility] [address] [id number] [address] [place] [address], [place] [address] May, [facility] [address] [id number] [address] [place] [address], [place] [address] May, [facility] [address] [id number] [address] [place] [address], [place] [address] May, [facility] [address] [id number] [address] [place] [address], [place] [address] May, [facility] [address] [id number] [address] [place] [address], [place] [address] Jan, [facility] [address] [id number] [address] [place] [address], [place] [address] Jan, [facility] [address] [id number] [address] [place] [address], [place] [address] Nov, [facility] [address] [id number] [address] [place] [address], [place] [address] Nov, [facility] [address] [id number] [address] [place] [address], [place] [address] Nov, [facility] [address] [id number] [address] [place] [address], [place] [address] Nov, [facility] [address] [id number] [address] [place] [address], [place] [address] Nov, [facility] [address] [id number] [address] [place] [address], [place] [address] Nov, [facility] [address] [id number] [address] [place] [id number] Nov, [facility] [address] [id number] [address] [place] [address], [place] [id number] Nov, [facility] [address] [id number] [address] [place] [address], [place] [id number] Nov, [facility] [address] [id number] [address] [place] [address], [place] [id number] Nov, [facility] [address] [id number] [address] [place] [id number] Oct, [facility] [address] [id number] [address] [place] [address], [place] [id number] Oct, [facility] [address] [id number] [address] [place] [address], [place] [id number] Oct, [facility] [address] [id number] [address] [place] [address], [place] [id number] Oct, [facility] [address] [id number] [address] [place] [address], [place] [id number] Sep, [facility] [address] [id number] [address] [place] [address], [place] [id number] Sep, [facility] [address] [id number] [address] [place] [address], [place] [id number] Aug, [facility] [address] [id number] [address] [place] [address], [place] [id number] Aug, [facility] [address] [id number] [address] [place] [address], [place] [id number] Aug, [facility] [address] [id number] [address] [place] [id number] Aug, [facility] [address] [id number] [address] [place] [address], [place] [id number] Aug, [facility] [address] [id number] [address] [place] [id number] Aug, [facility] [address] [id number] [address] [place] [id number] Aug, [facility] [facility] [address] [id number] [address] [place] [id number] Aug, [facility] [address] [id number] [address] [place] [address], [place] [id number] Jul, [facility] [address] [id number] [address] [place] [address], [place] [id number] Jul, [facility] [address] [id number] [address] [place] [address], [place] [id number] Jul, [facility] [address] [id number] [address] [place] [address], [place] [id number] Jul, [facility] [address] [id number] [address] [place] [address], [place] [id number] Jul, [facility] [address] [id number] [address] [place] [address], [place] [id number] Jun, [facility] [address] [id number] [address] [place] [address], [place] [id number] May, [facility] [address] [id number] [address] [place] [address], [place] [id number] Apr, [facility] [address] [id number] [address] [place] [address], [place] [id number] February, [facility] [address] [id number] [address] [place] [address], [place] [id number] Jan, [facility] [address] [id number] [address] [place] [address], [place] [id number] Jan, [facility] [address] [id number] [address] [place] [address], [place] [id number] Dec, [facility] [address] [id number] [address] [place] [address], [place] [id number] Dec, [facility] [address] [id number] [address] [place] [address], [place] [id number] Dec, [facility] [address] [id number] [address] [place] [address], [place] [id number] Nov, [facility] [address] [id number] [address] [place] [address], [place] [id number] Nov, [facility] [address] [id number] [address] [place] [address], [place] [id number] Nov, [facility] [address] [id number] [address] [place] [address], [place] [id number] Nov, IMMUNIZATIONS No Known Immunizations SOCIAL HISTORY [...] chronic neck and back pain Medical History LA x's 2 1996 and 2011 Medical History [...] 02/[address] [facility], [facility],-minimal RCA blockage <20% 1996 [facility], mild nonspecific bulbar duodenitis 1996 Surgical History carotid endarterectomy, right- [facility] 01/14 015 Surgical History Heart cath with PTCA 2013 Surgical History Colonoscopy- tubular adenoma , hyperplastic polyp- repeat Colonoscopy 12/2016 Surgical History Bypass Surgery- CABG and Pacemaker 06/06 Hospitalization History heart attack 1996 Hospitalization History slurred speech, fever, left arm pain Sharifa Shah February 2015 Hospitalization History Pancreatitis 12/2015 Hospitalization History CABG 05/2018
--- OUTSIDE RECORDS SUMMARY | 2020-04-06 06:50 | XMS REPORT ---
Author Author Jermaine CAMPOS Organization [facility] Address [address] [place] [address] Care Team Providers Care Thread Winder Name Role Phone TIFFANIE CAMPOS Unavailable PROBLEMS Type Condition ICD9-CM Code TIF75-NV Code Onset Dates Condition S tatus SNOMED Code Problem Fatty liver K76.0 Active 94625855 7 Problem Chronic pain G89.29 Active 6788648 1 Problem Abdominal bloating R14.0 Active 1 88015617 Problem Diverticulosis of intestine without bleeding, unspecified intestinal tract location K57.90 Active 29522595 Problem Gastroesophageal reflux disease without esophagitis K21.9 Active 225850306 Problem COPD (chronic obstructive pulmonary disease) wit h chronic bronchitis J44.9 Active 862412312 Problem Bilateral carotid artery disease I77.9 Active 032084177 Problem Chronic bronchitis J42 Active 6 5507605 Problem Claudication of both lower extremities I73.9 Active 707793120 Problem Hyperlipemia E78.5 Active 3597839 4 Problem Non-rheumatic mitral regurgitation I34.0 Active 190853019 Problem Claudication I73.9 Active 8203382 6 Problem Peripheral arterial disease I73.9 Ac tive 387765143 Problem Pacemaker Z95.0 Active 312491655 Problem Chronic obstructive pulmonary disease, unspecified COPD ty pe J44.9 Active 21959501 Problem Tobacco abuse Z72.0 Active 195616 05 Problem Carpal tunnel syndrome on both sides G56.03 Active [id number] Problem PAD (peripheral artery disease) I73.9 Active 011044402 Problem Benign essential hypertension I10 Active 1070896 Problem CAD (coronary artery disease) I25.10 Active 48014512 Problem Mixed hyperlipidemia E78.2 Active 413656977 Problem Other chronic pain G89.29 Active 8 0553749 Problem Diet-controlled diabetes mellitus E11.9 Active 587239714 Problem Degenerative disc disease, cervical M50.30 Active [id number] ALLERGIES No Information ENCOUNTERS Encounter Location Date Diagnosis [facility] [id number]. [facility] [id number] Aug, Carpal tunnel syndrome on both sides G56 .03 ; Sore of lower lip K13.0 ; Benign essential hypertension I10 ; COPD (chronic obstructive pulmonary disease) with chronic bronchitis J44.9 and Hyperlipemia E78.5 [facility] [id number] [place] [address], [place] [id number] May, [facility] [place] [id number] [place] [address], [place] [id number] Mar, [facility] [email or web address] [place] [address], [place] [id number] Mar, Facet arthritis of cervical region M47.8 12 and Cervical radiculopathy M54.12 [facility] [id number] [place] [address], [place] [id number] February, Degenerative disc disease, cervical M50. 30 ; Facet arthritis of cervical region M47.812 ; Cervical radiculopathy M54.12 and Pacemaker Z95.0 [facility] [address] [id number][facility] [id number] February, [facility] AVOH[id number]. [facility] [id number] Jan, [facility] AVOH[id number]. [facility] [id number] Sep, Diet-controlled diabetes mellitus E11.9 ; Benign essential hypertension I10 and Tobacco abuse Z72.0 [facility] [email or web address] [place] [address] AVE [id number]. [facility] [id number] Jul, Hyperlipemia E78.5 and CAD (coronary art janneth disease) I25.10 [facility] [email or web address] [place] [address] AVE [id number]. [facility] [id number] Jun, CAD (coronary artery disease) I25.10 and Hyperlipemia E78.5 [facility] [email or web address] [place] [address] [id number] [place] [address], [place] [id number] Jun, New onset type 2 diabetes mellitus E11.9 ; S/P CABG (coronary artery bypass graft) Z95.1 ; Benign essential hypertension I10 ; Other chronic pain G89.29 and S/P cardiac pacemaker procedure Z95.[address] [id number] [place] [id number] Jun, [facility] [id number]. [facility] [id number] May, [address] [id number] May, COPD (chronic obstructive pulmonary dise ase) with chronic bronchitis J44.9 ; Tobacco abuse Z72.0 and Tobacco abuse counseling Z71.[address] [id number][address] [facility] [id number] Apr, CAD (coronary artery disease) I25.[address] [id number] [place] [address], [place] [id number] Mar, Peripheral arterial disease I73.[address] [id number][address] [facility] [id number] February, Chronic pain G89.29 ; Hyperlipemia E78.5 and Benign essential hypertension I10 [address] [id number][address] [facility]AS [facility] [id number] Jan, COPD (chronic obstructive pulmonary dise ase) with chronic bronchitis J44.[address] [id number] HOS[facility] [place] [id number] Jan, [address] [id number] [facility] [place] [id number] Jan, Peripheral arterial disease I73.9 ; Carlo gn essential hypertension I10 ; Bilateral carotid artery disease I77.9 ; Claudication of both lower extremities I73.9 ; Mixed hyperlipidemia E78.2 ; Tobacco use Z72.0 and Non-rheumatic mitral regurgitation I34.0 [facility] [id number] [place] [id number] Jan, RUQ pain R10.11 ; Gastroesophageal reflu x disease without esophagitis K21.9 and Change in stool R19.5 [facility] [address] [id number] [place] [id number] Jan, [facility] [address] [id number] [place] [id number] Jan, Neck pain M54.2 ; Benign essential hyper tension I10 ; COPD (chronic obstructive pulmonary disease) with chronic bronchitis J44.9 and Chronic obstructive pulmonary disease, unspecified COPD type J44.9 [facility] [address] [id number] [place] [id number] Jan, Chronic obstructive pulmonary disease, u nspecified COPD type J44.9 [facility] [id number] [place] [id number] Dec, [facility] [place] AVOHIO COUNTY [id number] [place] [id number] Dec, [facility] [id number] [place] [id number] Dec, COPD (chronic obstructive pulmonary dise ase) with chronic bronchitis J44.9 [facility] [address] [address] Dec, [facility] [address] [address] Dec, [facility] [id number] [place] [id number] Nov, [facility] [place] [address] [id number] [place] [id number] Nov, Benign essential hypertension I10 and CO PD (chronic obstructive pulmonary disease) with chronic bronchitis J44.9 [facility] [address] [id number] [place] [id number] 15 Nov, 2017 Hyperlipemia E78.5 ; Benign essential hy pertension I10 ; COPD (chronic obstructive pulmonary disease) with chronic bronchitis J44.9 ; Encounter for immunization Z23 ; Gastroesophageal reflux disease without esophagitis K21.9 and Chronic pain G89.[address] [id number] [place] [id number] Oct, COPD (chronic obstructive pulmonary dise ase) with chronic bronchitis J44.9 and Chronic obstructive pulmonary disease, unspecified COPD type J44.[address] [place] [place] [address] [id number] [place] [id number] Oct, COPD (chronic obstructive pulmonary dise ase) with chronic bronchitis J44.9 and Chronic obstructive pulmonary disease, unspecified COPD type J44.[address] [place] [place] [address] [id number] [place] [id number] Oct, COPD (chronic obstructive pulmonary dise ase) with chronic bronchitis J44.9 and Chronic obstructive pulmonary disease, unspecified COPD type J44.[address] [id number] [place] [id number] Oct, Benign essential hypertension I10 and Ne ck pain M54.[address] [id number] [place] [id number] Sep, PAD (peripheral artery disease) I73.9 ; Claudication of both lower extremities I73.9 ; Bilateral carotid artery disease I77.9 ; Benign essential hypertension I10 ; Hyperlipemia E78.5 and Dyspnea on exertion R06.[address] [id number] [place] [id number] Aug, Benign essential hypertension I10 ; Vannessa roesophageal reflux disease without esophagitis K21.9 and Cervical radiculopathy M54.[address] [id number] [place] [id number] Aug, Gastroesophageal reflux disease without esophagitis K21.[address] [id number] [place] [id number] Aug, COPD (chronic obstructive pulmonary dise ase) with chronic bronchitis J44.9 [facility] [place] [address] [id number] [place] [id number] Jul, [address] [id number] [place] [id number] Jul, Benign essential hypertension I10 [facility] [address] [id number] [place] [id number] Jul, [facility] [place] [address] [id number] [place] [id number] Jul, COPD (chronic obstructive pulmonary dise ase) with chronic bronchitis J44.9 [facility] [place] [address] [id number] [place] [id number] Jul, Neck pain M54.2 [facility] [place] [address] [id number] [place] [id number] Jun, Claudication of both lower extremities I 73.9 ; PAD (peripheral artery disease) I73.9 ; Bilateral carotid artery disease I77.9 ; CAD (coronary artery disease) I25.10 ; Tobacco abuse Z72.0 ; Benign essential hypertension I10 ; Hyperlipemia E78.5 and Non-rheumatic mitral valve stenosis I34.2 [facility] [address] [id number] [place] [id number] Jun, Chronic obstructive pulmonary disease, u nspecified COPD type J44.9 [facility] [address] [id number] [place] [id number] May, [facility] [address] [id number] [place] [id number] May, Chronic obstructive pulmonary disease, u nspecified COPD type J44.9 [facility] [place] [address] [id number] [place] [id number] May, Neck pain M54.2 ; Chronic obstructive pu lmonary disease, unspecified COPD type J44.9 and Cervical radiculopathy M54.12 [facility] [place] [address] [id number] [place] [id number] May, [facility] [address] [id number] [place] [id number] Apr, [facility] [address] [id number] [place] [id number] Apr, Gastroesophageal reflux disease without esophagitis K21.[address] [facility] [place] [address] [id number] [place] [id number] Apr, COPD (chronic obstructive pulmonary dise ase) with chronic bronchitis J44.[address] [facility] [place] [address] [id number] [place] [id number] Apr, [facility] [place] [address] [id number] [place] [id number] Apr, [facility] [place] [address] [id number] [place] [id number] Apr, COPD (chronic obstructive pulmonary dise ase) with chronic bronchitis J44.9 ; Benign essential hypertension I10 ; Tobacco abuse counseling Z71.6 and Hyperlipemia E78.[address] [facility] [place] [address] [id number] [place] [id number] February, COPD (chronic obstructive pulmonary dise ase) with chronic bronchitis J44.[address] [facility] [place] [address] [id number] [place] [id number] Jan, [facility] [place] [address] [id number] [place] [id number] Jan, COPD (chronic obstructive pulmonary dise ase) with chronic bronchitis J44.[address] [facility] [place] [address] [id number] [place] [id number] Oct, COPD (chronic obstructive pulmonary dise ase) with chronic bronchitis J44.[address] [facility] [place] [address] [id number] [place] [id number] Oct, Winter itch L29.[address] [facility] [place] [address] [id number] [place] [id number] Oct, COPD (chronic obstructive pulmonary dise ase) with chronic bronchitis J44.9 ; Benign essential hypertension I10 ; Tobacco abuse Z72.0 and Gastroesophageal reflux disease without esophagitis K21.[address] [facility] [place] [address] [id number] [place] [id number] Sep, Benign essential hypertension I[address] [facility] [address] [address] [id number] [place] [id number] Aug, [place] [address] [id number] [place] [id number] Jul, [place] [address] [id number] [facility] [id number] Apr, [place] [address] [id number] HOSPITAL [place] [id number] Apr, Abdominal bloating R14.0 ; Fatty liver K 76.0 ; Diverticulosis of intestine without bleeding, unspecified intestinal tract location K57.90 ; Chronic obstructive pulmonary disease, unspecified COPD type J44.9 and Benign essential hypertension I10 [place] [address] [id number] [facility]OS[facility]ITAL [place] [id number] Apr, Mild early onset dysthymic disorder, in partial remission, with melancholic features, 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 [place] [address] [id number] [facility] [place] [id number] Mar, Abdominal muscle strain, initial encount er S39.011A [place] [address] [id number] [facility] [place] [id number] Jan, Pancreatitis K85.9 ; Abdominal bloating R14.0 ; Chronic bronchitis J42 and Chronic pain G89.[address] [id number] HOSPITAL [place] [id number] Nov, [facility] [place] [address] [id number] [facility] [id number] Nov, [facility] [place] [address] [id number] [facility] [place] [id number] Nov, Chronic bronchitis J42 ; Tobacco abuse Z 72.0 and Tobacco abuse counseling Z71.[address] [place] [place] [address] [id number] [place] [id number] Oct, [facility] [place] [address] [id number] HOSPITAL [place] [id number] Oct, Chronic bronchitis J42 ; Tobacco abuse Z 72.0 and Benign essential hypertension I10 [address] AVOHIO [facility] [id number] [place] [id number] Oct, Chronic bronchitis J42 ; Tobacco abuse Z 72.0 ; Tobacco abuse counseling Z71.6 ; Benign essential hypertension I10 and Hyperlipemia E78.5 [place] [address] [place] [id number] [place] [address] Sep, [address] [id number] Jul, [facility] [address] [address] Jul, Essential (primary) hypertension I10 [address] [address] Jul, [address] [id number] Jul, [address] [id number] Jun, Benign essential hypertension 401.1 ; Ge neralized edema 782.3 ; Chronic pain 338.29 and Hyperlipemia 272.[address]07757[address] [place] [id number] May, Upper respiratory infection 465.9 and Co ugh 786.2 [place] [id number] [place] [id number] Mar, Upper respiratory infection 465.9 ; Toba account assistant abuse 305.1 and Cough 786.[address]07757[address] [place] [id number] February, [address] [id number] February, Status post bilateral carotid endarterec vito V45.89 ; CAD (coronary artery disease) 414.00 ; Benign essential hypertension 401.1 ; Hyperlipemia 272.4 ; Tobacco abuse 305.1 ; Tobacco abuse counseling V65.42 and Chronic bronchitis 491.9 [place] [address] [id number] [place] [address] 14 Jan, 2015 [facility] [address] [id number] [place] [address] Jan, [facility] [address] [id number] [place] [address] Dec, [facility] [address] [id number] [place] [address] Dec, [facility] [address] [id number] [place] [address] Nov, [facility] [address] [id number] [place] [address] Nov, [facility] [address] [id number] [place] [address] Nov, [facility] [address] [id number] [place] [address] Nov, [facility] [address] [id number] [place] [address] Nov, [facility] [address] [id number] [place] [address] Nov, [facility] [address] [id number] [place] [address] Nov, [facility] [address] [id number] [place] [address] Nov, [facility] [address] [id number] [place] [address] Nov, [facility] [address] [id number] [place] [address] Oct, [facility] [address] [id number] [place] [address] Oct, [facility] [address] [id number] [place] [address] Oct, [facility] [address] [id number] [place] [address] Oct, [facility] [address] [facility] [id number] [place] [address] Oct, [facility] [address] [id number] [place] [address] Oct, [facility] [address] [id number] [place] [address] Oct, [facility] [address] [id number] [place] [address] Oct, [facility] [address] [id number] [place] [address] Oct, [facility] [address] [id number] [place] [address] Oct, [facility] [address] [id number] [place] [id number] Oct, [facility] [address] [id number] [place] [address] Oct, [facility] [address] [id number] [place] [address] Sep, [facility] [address] [id number] [place] [address] Sep, [facility] [address] [id number] [place] [address] Aug, [facility] [address] [id number] [place] [address] Aug, [facility] [address] [id number] [place] [address] Aug, [facility] [address] [id number] [place] [address] Aug, [facility] [address] [id number] [place] [address] Jul, [facility] [address] [id number] [place] [address] Jul, [facility] [address] [id number] [place] [address] 08 Jun, 2014 [facility] [address] [facility] [id number] [place] [address] Jun, [facility] [address] [id number] [place] [address] May, [facility] [address] [id number] [place] [address] May, [facility] [address] [id number] [place] [address] May, [facility] [address] [id number] [place] [address] May, [facility] [address] [id number] [place] [address] Jan, [facility] [address] [id number] [place] [address] Jan, [facility] [address] [id number] [place] [address] Nov, [facility] [address] [id number] [place] [address] Nov, [facility] [address] [id number] [place] [address] Nov, [facility] [address] [id number] [place] [address] Nov, [facility] [address] [id number] [place] [address] Nov, [facility] [address] [id number] [place] [address] Nov, [facility] [address] [id number] [place] [address] Nov, [facility] [address] [id number] [place] [address] Nov, [facility] [address] [id number] [place] [address] Nov, [facility] [address] [id number] [place] [address] Nov, [facility] [address] [id number] [place] [address] Oct, [facility] [address] [id number] [place] [address] Oct, [facility] [address] [id number] [place] [address] Oct, [facility] [address] [id number] [place] [address] Oct, [facility] [address] [id number] [place] [address] Sep, [facility] [address] [id number] [place] [address] Sep, [facility] [address] [id number] [place] [address] Aug, [facility] [address] [id number] [place] [address] Aug, [facility] [address] [id number] [place] [address] Aug, [facility] [address] [id number] [place] [address] Aug, [facility] [address] [id number] [place] [address] Aug, [facility] [address] [id number] [place] [address] Aug, [facility] [address] [id number] [place] [address] Aug, [facility] [address] [id number] [place] [address] Aug, [facility] [address] [id number] [place] [address] Jul, [facility] [address] [id number] [place] [address] Jul, [facility] [address] [id number] [place] [address] Jul, [facility] [address] [id number] [place] [address] Jul, [facility] [address] [id number] [place] [address] Jul, [facility] [address] [id number] [place] [address] Jun, [facility] [address] [id number] [place] [address] May, [facility] [address] [id number] [place] [address] Apr, [facility] [id number] [place] [address] February, [facility] [id number] [place] [address] Jan, [facility] [address] [id number] [place] [address] Jan, [facility] [id number] [place] [address] Dec, [facility] [id number] [place] [address] Dec, [facility] [id number] [place] [address] Dec, [facility] [address] [id number] [place] [address] Nov, [facility] [id number] [place] [address] Nov, [facility] [id number] [place] [address] Nov, [facility] [id number] [place] [address] Nov, IMMUNIZATIONS No Known Immunizations SOCIAL HISTORY Never Assessed REASON FOR VISIT PLAN OF CARE VITAL SIGNS MEDICATIONS No Known Medications RESULTS No Results PROCEDURES No Known procedures INSTRUCTIONS MEDICATIONS ADMINISTERED No Known Medications MEDICAL (GENERAL) HISTORY Type Description Date Medical History GERD Medical History hypertension Medical History 1999 mild stroke syndrome- C T head 02/2015 showed chronic ischemic changes Medical History chronic neck and back pain Medical History GA x's 2 1996 and 2011 Medical History [...] 2017 Medical History CABG and Pacemaker 05/2018 ([facility]) Medical History Mild carpal tunnel syndrome bilat per [place] T 05/2019 Surgical History carotid endarterectomy, left side of nec k 02/2015 Surgical History coronary angiography Dr Mane thakur [facility]- normal EF, LV function,-minimal RCA blockage <20% 1996 [facility], mild nonspecific bulbar duodenitis 1996 Surgical History carotid endarterectomy, right- [facility] 01/14 015 Surgical History Heart cath with PTCA 2013 Surgical History Colonoscopy- tubular adenoma , hyperplastic polyp- repeat Colonoscopy 12/2016 Surgical History Bypass Surgery- CABG and Pacemaker 06/06 Hospitalization History heart attack 1996 Hospital[facility] History slurred speech, fever[facility] Hospitalization History Pancreatitis 12/2015 Hospitalization History CABG 05/2018
--- OUTSIDE RECORDS SUMMARY | 2020-04-06 06:50 | XMS REPORT ---
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 Role Phone Migration, Doctor Unavailable Unavailable PROBLEMS Type Condition ICD9-CM Code VIF49-[place] Code Onset Dates Condition S tatus SNOMED Code Problem Fatty liver K76.0 Active 87307784 7 Problem Chronic pain G89.29 Active 2433806 1 Problem Abdominal bloating R14.0 Active 1 75651046 Problem Diverticulosis of intestine without bleeding, unspecified intestinal tract location K57.90 Active 44811337 Problem Gastroesophageal reflux disease without esophagitis K21.9 Active 407303087 Problem COPD (chronic obstructive pulmonary disease) wit h chronic bronchitis J44.9 Active 799251320 Problem Bilateral carotid artery disease I77.9 Active 298631890 Problem Chronic bronchitis J42 Active 6 8660425 Problem Claudication of both lower extremities I73.9 Active 788528923 Problem Hyperlipemia E78.5 Active 8473475 4 Problem Non-rheumatic mitral regurgitation I34.0 Active 697192862 Problem Claudication I73.9 Active 0583635 6 Problem Peripheral arterial disease I73.9 Ac tive 248999440 Problem Pacemaker Z95.0 Active 908389437 Problem Chronic obstructive pulmonary disease, unspecified COPD ty pe J44.9 Active 32939123 Problem Tobacco abuse Z72.0 Active 287130 05 Problem Carpal tunnel syndrome on both sides G56.03 Active 74270689769083244 Problem PAD (peripheral artery disease) I73.9 Active 835195491 Problem Benign essential hypertension I10 Active 3863569 Problem CAD (coronary artery disease) I25.10 Active 30609679 Problem Mixed hyperlipidemia E78.2 Active 506464377 Problem Other chronic pain G89.29 Active 8 6787243 Problem Diet-controlled diabetes mellitus E11.9 Active 134092548 Problem Degenerative disc disease, cervical M50.30 Active 78432420 ALLERGIES No Information ENCOUNTERS Encounter Location Date Diagnosis [facility] [address] [facility] [id number] [place] [id number] Aug, Carpal tunnel syndrome on both sides G56 .03 ; Sore of lower lip K13.0 ; Benign essential hypertension I10 ; COPD (chronic obstructive pulmonary disease) with chronic bronchitis J44.9 and Hyperlipemia E78.5 [facility] [place] [id number] [place] [phone] May, [facility] [place] AVFLEM[id number] [id number] Mar, [facility] [place], [place] [phone] Mar, Facet arthritis of cervical region M47.8 12 and Cervical radiculopathy M54.12 [facility] [place] AVKNO[id number] [place] [address], [place] [id number] February, Degenerative disc disease, cervical M50. 30 ; Facet arthritis of cervical region M47.812 ; Cervical radiculopathy M54.12 and Pacemaker Z95.0 [facility] [place] [id number] [phone] February, [facility] [employer] [place] [address] AVE [id number], [place] [phone] Jan, [facility] [place] AVK[facility]ITALSL06005[facility] [phone] Sep, Diet-controlled diabetes mellitus E11.9 ; Benign essential hypertension I10 and Tobacco abuse Z72.0 [facility] [place] [id number], [place] [address] Jul, Hyperlipemia E78.5 and CAD (coronary art janneth disease) I25.10 [facility] [place] [employer] [place] [address] AVE [id number] [phone] Jun, CAD (coronary artery disease) I25.10 and Hyperlipemia E78.5 [facility] [place] [employer] [place] [address] AVE [id number] [place] [id number] Jun, New onset type 2 diabetes mellitus E11.9 ; S/P CABG (coronary artery bypass graft) Z95.1 ; Benign essential hypertension I10 ; Other chronic pain G89.29 and S/P cardiac pacemaker procedure Z95.[address] [id number] [place] [id number] Jun, [place] [address] [address] [id number] [phone] May, [address] [id number] [address] May, COPD (chronic obstructive pulmonary dise ase) with chronic bronchitis J44.9 ; Tobacco abuse Z72.0 and Tobacco abuse counseling Z71.[address] [id number] [place] [address], [place] [id number] Apr, CAD (coronary artery disease) I25.[address] [id number] [id number] Mar, Peripheral arterial disease I73.[address] [id number] [place] [address], [place] [id number] February, Chronic pain G89.29 ; Hyperlipemia E78.5 and Benign essential hypertension I10 [address] [id number] [id number] Jan, COPD (chronic obstructive pulmonary dise ase) with chronic bronchitis J44.[address] [id number] [id number] Jan, [address] [id number] [id number] Jan, Peripheral arterial disease I73.9 ; Carlo gn essential hypertension I10 ; Bilateral carotid artery disease I77.9 ; Claudication of both lower extremities I73.9 ; Mixed hyperlipidemia E78.2 ; Tobacco use Z72.0 and Non-rheumatic mitral regurgitation I34.[address] [place] [address] [id number], [place] [phone] Jan, RUQ pain R10.11 ; Gastroesophageal reflu x disease without esophagitis K21.9 and Change in stool R19.5 [facility] [place] [address] [id number] [place] [id number] Jan, [facility] [place] [address] [id number] [place] [phone] Jan, Neck pain M54.2 ; Benign essential hyper tension I10 ; COPD (chronic obstructive pulmonary disease) with chronic bronchitis J44.9 and Chronic obstructive pulmonary disease, unspecified COPD type J44.9 [facility] [place] [address] [id number] [place] [phone] Jan, Chronic obstructive pulmonary disease, u nspecified COPD type J44.9 [facility] [place] [address] [id number] [place] [id number] Dec, [facility] [place] [address] [id number] [place] [phone] Dec, [facility] [place] [address] [id number] [place] [phone] Dec, COPD (chronic obstructive pulmonary dise ase) with chronic bronchitis J44.9 [facility] [id number] [place] [address] Dec, [facility] [address] [address] Dec, [facility] [place] [address] [id number] [place] [id number] Nov, [facility] [place] [address] [id number] [place] [phone] Nov, Benign essential hypertension I10 and CO PD (chronic obstructive pulmonary disease) with chronic bronchitis J44.9 [facility] [place] [address] [id number] [place] [phone] Nov, Hyperlipemia E78.5 ; Benign essential hy pertension I10 ; COPD (chronic obstructive pulmonary disease) with chronic bronchitis J44.9 ; Encounter for immunization Z23 ; Gastroesophageal reflux disease without esophagitis K21.9 and Chronic pain G89.29 [facility]ITALInvestormillWAG[facility] [address] [id number] [place] [phone] Oct, COPD (chronic obstructive pulmonary dise ase) with chronic bronchitis J44.9 and Chronic obstructive pulmonary disease, unspecified COPD type J44.9 [facility] [place] [address] [id number] [place] [phone] Oct, COPD (chronic obstructive pulmonary dise ase) with chronic bronchitis J44.9 and Chronic obstructive pulmonary disease, unspecified COPD type J44.9 [facility] [place] [address] [id number] [place] [phone] Oct, COPD (chronic obstructive pulmonary dise ase) with chronic bronchitis J44.9 and Chronic obstructive pulmonary disease, unspecified COPD type J44.9 [facility] [place] [address] [id number] [place] [id number] Oct, Benign essential hypertension I10 and Ne ck pain M54.2 [facility] [place] [employer] [address] [id number] [place] [address] S, [place] [phone] Sep, PAD (peripheral artery disease) I73.9 ; Claudication of both lower extremities I73.9 ; Bilateral carotid artery disease I77.9 ; Benign essential hypertension I10 ; Hyperlipemia E78.5 and Dyspnea on exertion R06.09 [facility] [place] [id number] [place] [address] S, [place] [id number] Aug, Benign essential hypertension I10 ; Vannessa roesophageal reflux disease without esophagitis K21.9 and Cervical radiculopathy M54.12 [facility] [place] [employer] [address] [id number] [place] [phone] Aug, Gastroesophageal reflux disease without esophagitis K21.9 [facility] [place] [address] [id number] [place] 645[address]57 Aug, COPD (chronic obstructive pulmonary dise ase) with chronic bronchitis J44.9 [facility] [place] [address] [id number] [place] [phone] Jul, [facility]ITALInvest[facility]illW[facility] [employer] [address] [id number] [place] [phone] Jul, Benign essential hypertension I10 [facility]ITALInvestormillWAG[facility] [employer] [id number] [place] [id number] Jul, [facility] [address] [address] [id number] [place] [phone] Jul, COPD (chronic obstructive pulmonary dise ase) with chronic bronchitis J44.9 [facility] [place] [address] [id number] [place] [phone] Jul, Neck pain M54.2 [facility] [address] [address] [id number] [place] [id number] Jun, Claudication of both lower extremities I 73.9 ; PAD (peripheral artery disease) I73.9 ; Bilateral carotid artery disease I77.9 ; CAD (coronary artery disease) I25.10 ; Tobacco abuse Z72.0 ; Benign essential hypertension I10 ; Hyperlipemia E78.5 and Non-rheumatic mitral valve stenosis I34.2 [facility] [address] [address] [id number] [place] [id number] Jun, Chronic obstructive pulmonary disease, u nspecified COPD type J44.9 [facility] [place] [address] [id number] [place] [id number] May, [facility] [place] [address] [id number] [place] 088238513 May, Chronic obstructive pulmonary disease, u nspecified COPD type J44.9 [facility] [address] [address] [id number] [place] [id number] May, Neck pain M54.2 ; Chronic obstructive pu lmonary disease, unspecified COPD type J44.9 and Cervical radiculopathy M54.12 [facility] [place] [address] [id number] [place] [phone] May, [facility] [address] [address] [id number] [place] [phone] Apr, [facility] [place] [address] [id number] [place] [id number] Apr, Gastroesophageal reflux disease without esophagitis K21.9 [facility] [place] [address] [id number] [place] [id number] Apr, COPD (chronic obstructive pulmonary dise ase) with chronic bronchitis J44.[address] [facility] [address] [address] [id number] [place] [id number] Apr, [facility] [place] [address] [id number] [place] [phone] Apr, [facility] [place] [address] [id number] [place] [id number] Apr, COPD (chronic obstructive pulmonary dise ase) with chronic bronchitis J44.9 ; Benign essential hypertension I10 ; Tobacco abuse counseling Z71.6 and Hyperlipemia E78.[address] [facility] [place] [address] [id number] [place] [id number] February, COPD (chronic obstructive pulmonary dise ase) with chronic bronchitis J44.[address] [facility] [place] [address] [id number] [place] [phone] Jan, [facility] [place] [address] [id number] [place] [id number] Jan, COPD (chronic obstructive pulmonary dise ase) with chronic bronchitis J44.[address] [facility] [place] [address] [id number] [place] [id number] Oct, COPD (chronic obstructive pulmonary dise ase) with chronic bronchitis J44.[address] [facility] [address] [address] [id number] [place] [id number] Oct, Winter itch L29.[address] [facility] [address] [address] [id number] [place] [id number] Oct, COPD (chronic obstructive pulmonary dise ase) with chronic bronchitis J44.9 ; Benign essential hypertension I10 ; Tobacco abuse Z72.0 and Gastroesophageal reflux disease without esophagitis K21.[address] [facility] [place] [address] [id number] [place] [id number] Sep, Benign essential hypertension I10 [facility] [address] [address] [id number] [place] [id number] Aug, [facility] [place] [address] [id number] [id number] Jul, [facility] [address] [address], [place] [id number] Apr, [address], [place] 080332584 Apr, Abdominal bloating R14.0 ; Fatty liver K 76.0 ; Diverticulosis of intestine without bleeding, unspecified intestinal tract location K57.90 ; Chronic obstructive pulmonary disease, unspecified COPD type J44.9 and Benign essential hypertension I10 [address] [id number] [place] [address], [place] [id number] Apr, Mild early onset dysthymic disorder, in partial remission, with melancholic features, 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, [place] [id number] Mar, Abdominal muscle strain, initial encount er S39.011A [address], [place] [id number] Jan, Pancreatitis K85.9 ; Abdominal bloating R14.0 ; Chronic bronchitis J42 and Chronic pain G89.[address], [place] [id number] Nov, [facility] [address], [place] [id number] Nov, [place] [address], [place] 8[address] Nov, Chronic bronchitis J42 ; Tobacco abuse Z 72.0 and Tobacco abuse counseling Z71.[address], [place] [id number] Oct, [facility] [address], [place] [id number] Oct, Chronic bronchitis J42 ; Tobacco abuse Z 72.0 and Benign essential hypertension I10 [facility] [address], [place] [id number] Oct, Chronic bronchitis J42 ; Tobacco abuse Z 72.0 ; Tobacco abuse counseling Z71.6 ; Benign essential hypertension I10 and Hyperlipemia E78.5 [facility] [address] [address] Sep, [facility] [address] [id number][place] [address]72[address] Jul, [facility] [address] [address] Jul, Essential (primary) hypertension I10 [facility] [address] [place] [address] Jul, [facility] [address] [id number] [place] [id number] Jul, [facility] [address] [address] [id number] [address] Jun, Benign essential hypertension 401.1 ; Ge neralized edema 782.3 ; Chronic pain 338.29 and Hyperlipemia 272.[address] [facility] [address] [id number], [place] 520672866 May, Upper respiratory infection 465.9 and Co ugh 786.[address] [facility]PITALOJ43601ZWAYNETOWN[place] 616943662 Mar, Upper respiratory infection 465.9 ; 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 and Cough 786.[address] [place] [id number] [place] [address] [id number] February, [facility] [address] [id number][place] [id number] February, Status post bilateral carotid endarterec vito V45.89 ; CAD (coronary artery disease) 414.00 ; Benign essential hypertension 401.1 ; Hyperlipemia 272.4 ; Tobacco abuse 305.1 ; Tobacco abuse counseling V65.42 and Chronic bronchitis 491.9 [facility] [address] [address] Jan, [place] [address] [facility] [place] [address] Jan, [facility] [address] [id number] [place] [address] Dec, [facility] [address] [id number] [place] [address] Dec, [facility] [address] [id number] [place] [address] Nov, [facility] [address] [id number] [place] [address] Nov, [facility] [address] [id number] [place] [address] Nov, [facility] [address] [id number] [place] [address] Nov, [facility] [address] [id number] [place] [address] Nov, [facility] [address] [id number] [place] [address] Nov, [facility] [address] [id number] [place] [address] Nov, [facility] [address] [facility] [place] [address] Nov, [facility] [address] [facility] [place] [address] Nov, [facility] [address] [facility] [place] [address] Oct, [facility] [address] [id number] [place] [address] Oct, [facility] [address] [id number] [place] [address] Oct, [facility] [address] [id number] [place] [address] Oct, [facility] [address] [facility] [place] [address] Oct, [facility] [address] [id number] [place] [address] Oct, [facility] [address] [id number] [place] [address] Oct, [facility] [address] [id number] [place] [address] Oct, [facility] [address] [facility] [place] [address] Oct, [facility] [address] [id number] [place] [address] Oct, [facility] [address] [id number] [place] [id number] Oct, [facility] [address] [id number] [place] [address] Oct, [facility] [address] [id number] [place] [address] Sep, [facility] [address] [id number] [place] [address] Sep, [facility] [address] [id number] [place] [address] Aug, [facility] [address] [id number] [place] [address] Aug, [facility] [address] [id number] [place] [address] Aug, [facility] [address] [id number] [place] [address] Aug, [facility] [address] [id number] [place] [address] Jul, [facility] [address] [id number] [place] [address] Jul, [facility] [address] [id number] [place] [address] Jun, [facility] [address] [id number] [place] [address] Jun, [facility] [address] [facility] [id number] [place] [address] May, [facility] [address] [id number] [place] [address] May, [facility] [address] [id number] [place] [address] May, [facility] [address] [id number] [place] [address] May, [facility] [address] [id number] [place] [address] Jan, [facility] [address] [id number] [place] [address] Jan, [facility] [address] [id number] [place] [address] Nov, [facility] [address] [id number] [place] [address] Nov, [facility] [address] [id number] [place] [address] Nov, [facility] [address] [id number] [place] [address] Nov, [facility] [address] [id number] [place] [address] Nov, [facility] [address] [id number] [place] [address] Nov, [facility] [address] [id number] [place] [address] Nov, [facility] [address] [id number] [place] [address] Nov, [facility] [address] [id number] [place] [address] Nov, [facility] [address] [id number] [place] [address] Nov, [facility] [address] [id number] [place] [address] Oct, [facility] [address] [id number] [place] [address] Oct, [facility] [address] [id number] [place] [address] Oct, [facility] [address] [id number] [place] [address] Oct, [facility] [address] [id number] [place] [address] Sep, [facility] [address] [id number] [place] [address] Sep, [facility] [address] [id number] [place] [address] Aug, [facility] [address] [id number] [place] [address] Aug, [facility] [address] [id number] [place] [address] Aug, [facility] [address] [id number] [place] [address] Aug, [facility] [address] [id number] [place] [address] Aug, [facility] [address] [id number] [place] [address] Aug, [facility] [address] [id number] [place] [address] Aug, [facility] [address] [id number] [place] [address] Aug, [facility] [address] [id number] [place] [address] Jul, [facility] [address] [id number] [place] [address] Jul, [facility] [address] [id number] [place] [address] Jul, [facility] [address] [id number] [place] [address] Jul, [facility] [address] [id number] [place] [address] Jul, [facility] [id number] [place] [address] Jun, [facility] [id number] [place] [address] May, [facility] [id number] [place] [address] Apr, [facility] [id number] [place] [address] February, [facility] [id number] [place] [address] Jan, [facility] [id number] [place] [address] Jan, [facility] [id number] [place] [address] Dec, [facility] [id number] [place] [address] Dec, [facility] [id number] [place] [address] Dec, [facility] [id number] [place] [address] Nov, [facility] [id number] [place] [address] Nov, [facility] [id number] [place] [address] Nov, [facility] [id number] [place] [address] Nov, IMMUNIZATIONS No Known Immunizations SOCIAL HISTORY Never Assessed REASON FOR VISIT PLAN OF CARE VITAL SIGNS Height 62 in 2013-11-05 Weight 150.8 lbs 2013-11-05 Heart Rate 68 bpm 2013-11-05 Blood pressure systolic 180 mmHg 2013-11-05 Blood pressure diastolic 82 mmHg 2013-11-05 MEDICATIONS No Known Medications RESULTS No Results PROCEDURES Procedure Date Ordered Result Body Site TTE W/DOPPLER, COMPLETE Nov 05, 2013 EXTREMITY STUDY Nov 05, 2013 INSTRUCTIONS MEDICATIONS ADMINISTERED No Known Medications MEDICAL (GENERAL) HISTORY Type Description Date Medical History GERD Medical History hypertension Medical History 1999 mild stroke syndrome- C T head 02/2015 showed chronic ischemic changes Medical History chronic neck and back pain Medical History SD x's 2 1996 and 2011 Medical History [...] 02/[address] [facility] [place],-minimal RCA blockage <20% 1996 Surgical History EGD-Dr.Makdisi Sharp-mild erosive esophagitis, mild nonspecific bulbar duodenitis 1996 Surgical History carotid endarterectomy, right- [facility] 01/14 015 Surgical History Heart cath with [facility] 2013 Surgical History Colonoscopy- tubular adenoma , hyperplastic polyp- repeat Colonoscopy 12/2016 Surgical History Bypass Surgery- CABG and Pacemaker 06/06 Hospitalization History heart attack 1996 Hospitalization History slurred speech, fever, left arm pain Sharifa Shah February 2015 Hospitalization History Pancreatitis 12/2015 Hospitalization History CABG 05/2018
--- OUTSIDE RECORDS SUMMARY | 2020-04-06 06:50 | XMS REPORT ---
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 Name Role Phone TIFFANIE CAMPOS Unavailable PROBLEMS Type Condition ICD9-CM Code IJS87-MG Code Onset Dates Condition S tatus SNOMED Code Problem Fatty liver K76.0 Active 47592837 7 Problem Chronic pain G89.29 Active 0541971 1 Problem Abdominal bloating R14.0 Active 1 03186957 Problem Diverticulosis of intestine without bleeding, unspecified intestinal tract location K57.90 Active 52596661 Problem Gastroesophageal reflux disease without esophagitis K21.9 Active 920044380 Problem COPD (chronic obstructive pulmonary disease) wit h chronic bronchitis J44.9 Active 773337985 Problem Bilateral carotid artery disease I77.9 Active 806335885 Problem Chronic bronchitis J42 Active 6 2769437 Problem Claudication of both lower extremities I73.9 Active 756976447 Problem Hyperlipemia E78.5 Active 4502808 4 Problem Non-rheumatic mitral regurgitation I34.0 Active 750762014 Problem Claudication I73.9 Active 8209216 6 Problem Peripheral arterial disease I73.9 Ac tive 799981451 Problem Pacemaker Z95.0 Active 806715207 Problem Chronic obstructive pulmonary disease, unspecified COPD ty pe J44.9 Active 42002070 Problem Tobacco abuse Z72.0 Active 812953 05 Problem Carpal tunnel syndrome on both sides G56.03 Active 26134065507566084 Problem PAD (peripheral artery disease) I73.9 Active 602434613 Problem Benign essential hypertension I10 Active 7822347 Problem CAD (coronary artery disease) I25.10 Active 40885469 Problem Mixed hyperlipidemia E78.2 Active 705080685 Problem Other chronic pain G89.29 Active 8 8703739 Problem Diet-controlled diabetes mellitus E11.9 Active 885166587 Problem Degenerative disc disease, cervical M50.30 Active 42567511 ALLERGIES No Information ENCOUNTERS Encounter Location Date Diagnosis [facility] [address] [id number] [id number] Jan, [facility] [address] [id number], [place] [address]35750[address] Jan, Diet-controlled diabetes mellitus E11.9 ; Benign essential hypertension I10 ; Tobacco abuse Z72.0 and Tobacco abuse counseling Z71.6 [email or web address] [address] [place] [address] AVE [id number], [place] [address]37[address] Jan, [facility] [address] [facility] [address] [id number], [place] [address] Aug, Carpal tunnel syndrome on both sides G56 .03 ; Sore of lower lip K13.0 ; Benign essential hypertension I10 ; COPD (chronic obstructive pulmonary disease) with chronic bronchitis J44.9 and Hyperlipemia E78.5 [facility] [address] [place] [address] AVE [id number], [place] [id number] May, [email or web address] [address] [place] [address] AVE [id number], [place] [id number] Mar, [facility] [address] [place] [address] AVE [id number], [place] [address]399[address] Mar, Facet arthritis of cervical region M47.8 12 and Cervical radiculopathy M54.12 [facility] [address] [place] [address] AVE [id number], [place] [id number] February, Degenerative disc disease, cervical M50. 30 ; Facet arthritis of cervical region M47.812 ; Cervical radiculopathy M54.12 and Pacemaker Z95.0 [facility] [address] [place] [address] A[address] [id number], [place] [id number] February, [facility] [address] [id number], [place] [id number] Jan, [facility] [address] [place] [address] AVE [id number], [place] [address] Sep, Diet-controlled diabetes mellitus E11.9 ; Benign essential hypertension I10 and Tobacco abuse Z72.0 [facility] [address] [id number] [place] [address] Jul, Hyperlipemia E78.5 and CAD (coronary art janneth disease) I25.[address] [facility] [address] [id number] [place] [address] Jun, CAD (coronary artery disease) I25.10 and Hyperlipemia E78.5 [facility] [address] [id number] [place] [address] Jun, New onset type 2 diabetes mellitus E11.9 ; S/P CABG (coronary artery bypass graft) Z95.1 ; Benign essential hypertension I10 ; Other chronic pain G89.29 and S/P cardiac pacemaker procedure Z95.0 [facility] [address] [id number] [place] [id number] Jun, [facility] [address] [id number], [place] [address] May, [facility] [address] [id number], [place] [id number] May, COPD (chronic obstructive pulmonary dise ase) with chronic bronchitis J44.9 ; Tobacco abuse Z72.0 and Tobacco abuse counseling Z71.6 [facility] [address] [id number], [place] [id number] Apr, CAD (coronary artery disease) I25.10 [facility] [address] [id number], [place] [address]65971576 Mar, Peripheral arterial disease I73.9 [facility] [address] [id number] [place] [address] February, Chronic pain G89.29 ; Hyperlipemia E78.5 and Benign essential hypertension I10 [facility] [address] [id number] [place] [address] Jan, COPD (chronic obstructive pulmonary dise ase) with chronic bronchitis J44.9 [facility] [address] [id number], [place] [id number] Jan, [facility] [address] [id number], [place] [address] Jan, Peripheral arterial disease I73.9 ; Carlo gn essential hypertension I10 ; Bilateral carotid artery disease I77.9 ; Claudication of both lower extremities I73.9 ; Mixed hyperlipidemia E78.2 ; Tobacco use Z72.0 and Non- rheumatic mitral regurgitation I34.0 [facility] [address] [id number], [place] [address] Jan, RUQ pain R10.11 ; Gastroesophageal reflu x disease without esophagitis K21.9 and Change in stool R19.5 [facility] [address] [id number], [place] [address]4989[address] Jan, [facility] [address] [id number], [place] 555887111 Jan, Neck pain M54.2 ; Benign essential hyper tension I10 ; COPD (chronic obstructive pulmonary disease) with chronic bronchitis J44.9 and Chronic obstructive pulmonary disease, unspecified COPD type J44.9 [facility] [address] [id number], [place] 153689393 Jan, Chronic obstructive pulmonary disease, u nspecified COPD type J44.9 [facility] [address] [id number], [place] 938979810 Dec, [facility] [address] [id number], [place] [id number] Dec, [facility] [address] [id number], [place] [id number] Dec, COPD (chronic obstructive pulmonary dise ase) with chronic bronchitis J44.9 [facility] [address] [id number] [address] [place] [address] Dec, [facility] [address] [id number] [address] [place] [address] Dec, [facility] [address] [id number], [place] [id number] Nov, [facility] [address] [place] [address] AVE [id number], [place] [id number] Nov, Benign essential hypertension I10 and CO PD (chronic obstructive pulmonary disease) with chronic bronchitis J44.9 [facility] [address] [place] [address] AVE [id number], [place] [id number] Nov, Hyperlipemia E78.5 ; Benign essential hy pertension I10 ; COPD (chronic obstructive pulmonary disease) with chronic bronchitis J44.9 ; Encounter for immunization Z23 ; Gastroesophageal reflux disease without esophagitis K21.9 and Chronic pain G89.29 [facility] [address] [place] [address] AVE [id number], [place] [id number] Oct, COPD (chronic obstructive pulmonary dise ase) with chronic bronchitis J44.9 and Chronic obstructive pulmonary disease, unspecified COPD type J44.9 [facility] [address] [place] [address] AVE [id number], [place] [id number] Oct, COPD (chronic obstructive pulmonary dise ase) with chronic bronchitis J44.9 and Chronic obstructive pulmonary disease, unspecified COPD type J44.9 [facility] [address] [place] [address] AVE [id number], [place] [id number] Oct, COPD (chronic obstructive pulmonary dise ase) with chronic bronchitis J44.9 and Chronic obstructive pulmonary disease, unspecified COPD type J44.9 [facility] [address] [place] [address] A[address] [id number], [place] [id number] Oct, Benign essential hypertension I10 and Ne ck pain M54.2 [facility] [address] [facility] [address] [id number], [place] 395[address]5914 Sep, PAD (peripheral artery disease) I73.9 ; Claudication of both lower extremities I73.9 ; Bilateral carotid artery disease I77.9 ; Benign essential hypertension I10 ; Hyperlipemia E78.5 and Dyspnea on exertion R06.09 [facility] [address] [id number], [place] [id number] Aug, Benign essential hypertension I10 ; Vannessa roesophageal reflux disease without esophagitis K21.9 and Cervical radiculopathy M54.12 [facility] [address] [id number] [place] [id number] Aug, Gastroesophageal reflux disease without esophagitis K21.[address] [facility] [address] [id number] [place] 415860449 Aug, COPD (chronic obstructive pulmonary dise ase) with chronic bronchitis J44.9 [facility] [address] [id number] [place] 617[address] Jul, [facility] [address] [id number], [place] 775169560 Jul, Benign essential hypertension I10 [facility] [address] [id number], [place] [id number] Jul, [facility] [address] [id number], [place] 039252356 Jul, COPD (chronic obstructive pulmonary dise ase) with chronic bronchitis J44.9 [facility] [address] [id number], [place] [id number] Jul, Neck pain M54.2 [facility] [address] [id number], [place] [id number] Jun, Claudication of both lower extremities I 73.9 ; PAD (peripheral artery disease) I73.9 ; Bilateral carotid artery disease I77.9 ; CAD (coronary artery disease) I25.10 ; Tobacco abuse Z72.0 ; Benign essential hypertension I10 ; Hyperlipemia E78.5 and Non-rheumatic mitral valve stenosis I34.2 [facility] [address] [id number] [place] 380007366 Jun, Chronic obstructive pulmonary disease, u nspecified COPD type J44.9 [facility] [address] [id number] [place] [id number] May, [facility] [address] [id number], [place] [id number] May, Chronic obstructive pulmonary disease, u nspecified COPD type J44.[address] [facility] [address] [id number] [place] [id number] May, Neck pain M54.2 ; Chronic obstructive pu lmonary disease, unspecified COPD type J44.9 and Cervical radiculopathy M54.[address] [facility] [address] [id number] [place] 935388358 May, [facility] [address] [id number] [place], [place] [id number] Apr, [facility] [address] [id number] [place], [place] 700725218 Apr, Gastroesophageal reflux disease without esophagitis K21.[address] [facility] [address] [id number] [place] 107499200 Apr, COPD (chronic obstructive pulmonary dise ase) with chronic bronchitis J44.[address] [facility] [address] [id number] [place] 256082692 Apr, [facility] [address] [id number] [place] [id number] Apr, [facility] [address] [id number], [place] 827372666 Apr, COPD (chronic obstructive pulmonary dise ase) with chronic bronchitis J44.9 ; Benign essential hypertension I10 ; Tobacco abuse counseling Z71.6 and Hyperlipemia E78.[address] [facility] [address] [id number] [place] [id number] February, COPD (chronic obstructive pulmonary dise ase) with chronic bronchitis J44.[address] [facility] [address] [id number] [place], [place] 620326795 Jan, [facility] [address] [id number] [place], [place] [id number] Jan, COPD (chronic obstructive pulmonary dise ase) with chronic bronchitis J44.[address] [facility] [address] [id number], [place] [id number] Oct, COPD (chronic obstructive pulmonary dise ase) with chronic bronchitis J44.9 [facility] [address] [id number], [place] 407[address]1369 Oct, Winter itch L29.[address] [id number], [place] 114942884 Oct, COPD (chronic obstructive pulmonary dise ase) with chronic bronchitis J44.9 ; Benign essential hypertension I10 ; Tobacco abuse Z72.0 and Gastroesophageal reflux disease without esophagitis K21.9 [facility] [address] [id number], [place] 233490514 Sep, Benign essential hypertension I[address] [id number], [place] [id number] Aug, [facility] [id number], [place] 254071718 Jul, [facility] [address] [id number], [place] 612012715 Apr, [facility] [address] [id number], [place] 095133671 Apr, Abdominal bloating R14.0 ; Fatty liver K 76.0 ; Diverticulosis of intestine without bleeding, unspecified intestinal tract location K57.90 ; Chronic obstructive pulmonary disease, unspecified COPD type J44.9 and Benign essential hypertension I[address] [id number], [place] [id number] Apr, Mild early onset dysthymic disorder, in partial remission, with melancholic features, 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 [id number], [place] 078774439 Mar, Abdominal muscle strain, initial encount er S39.011A [facility] [id number], [place] 077329524 Jan, Pancreatitis K85.9 ; Abdominal bloating R14.0 ; Chronic bronchitis J42 and Chronic pain G89.29 [facility] [address] [id number], [place] 388005449 Nov, [facility] [address] [id number], [place] 863191566 Nov, [facility] [address] [id number], [place] 947804055 Nov, Chronic bronchitis J42 ; Tobacco abuse Z 72.0 and Tobacco abuse counseling Z71.6 [facility] [address] [id number], [place] 070272785 Oct, [facility] [address] [id number], [place] [id number] Oct, Chronic bronchitis J42 ; Tobacco abuse Z 72.0 and Benign essential hypertension I10 [facility] [address] [id number], [place] [id number] Oct, Chronic bronchitis J42 ; Tobacco abuse Z 72.0 ; Tobacco abuse counseling Z71.6 ; Benign essential hypertension I10 and Hyperlipemia E78.5 [facility] [address] [id number] [address] [place] [address] Sep, [facility] [address] [id number], [place] [id number] Jul, [facility] [address] [id number] [address] [place] [address] Jul, Essential (primary) hyperten aida I10 [facility] [address] [id number] [address] [place] [address] Jul, [facility] [address] [id number], [place] [id number] Jul, [facility] [address] [id number], [place] [id number] Jun, Benign essential hypertension 401.1 ; Ge neralized edema 782.3 ; Chronic pain 338.29 and Hyperlipemia 272.4 [facility] [address] [id number], [place] [id number] May, Upper respiratory infection 465.9 and Co ugh 786.2 [facility] [address] [id number], [place] 080782858 Mar, Upper respiratory infection 465.9 ; 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 and Cough 786.2 [facility] [address] [id number], [place] [id number] February, [facility] [address] [id number], [place] 842554243 February, Status post bilateral carotid endarterec vito V45.89 ; CAD (coronary artery disease) 414.00 ; Benign essential hypertension 401.1 ; Hyperlipemia 272.4 ; Tobacco abuse 305.1 ; Tobacco abuse counseling V65.42 and Chronic bronchitis 491.9 [facility] [address] [id number] [address] [place] [address] Jan, [facility] [address] [id number] [address] [place] [address] Jan, [facility] [address] [id number] [address] [place] [address] Dec, [facility] [address] [id number] [address] [place] [address] Dec, [facility] [address] [id number] [address] [place] [address] Nov, [facility] [address] [id number] [address] [place] [address] Nov, [facility] [address] [id number] [address] [place] [address] Nov, [facility] [address] [id number] [address] [place] [address] Nov, [facility] [address] [id number] [address] [place] [address] Nov, [facility] [address] [id number] [address] [place] [address], [place] [address] Nov, [facility] [address] [id number] [address] [place] [address], [place] [address] Nov, [facility] [address] [id number] [address] [place] [address], [place] [address] Nov, [facility] [address] [id number] [address] [place] [address], [place] [address] Nov, [facility] [address] [id number] [address] [place] [address], [place] [address] Oct, [facility] [address] [id number] [address] [place] [address], [place] [address] Oct, [facility] [address] [id number] [address] [place] [address], [place] [address] Oct, [facility] [address] [id number] [address] [place] [address], [place] [address] Oct, [facility] [address] [id number] [address] [place] [address], [place] [address] Oct, [facility] [address] [id number] [address] [place] [address], [place] [address] Oct, [facility] [address] [id number] [address] [place] [address] Oct, [facility] [address] [id number] [address] [place] [address], [place] [address] Oct, [facility] [address] [id number] [address] [place] [address], [place] [address] Oct, [facility] [address] [id number] [address] [place] [address] Oct, [facility] [address] [id number] [place] [id number] Oct, [facility] [address] [id number] [address] [place] [address] [place] [address] Oct, [facility] [address] [id number] [address] [place] [address], [place] [address] Sep, [facility] [address] [id number] [address] [place] [address], [place] [address] Sep, [facility] [address] [id number] [address] [place] [address], [place] [address] Aug, [facility] [address] [id number] [address] [place] [address], [place] [address] Aug, [facility] [address] [id number] [address] [place] [address], [place] [address] Aug, [facility] [address] [id number] [address] [place] [address], [place] [address] Aug, [facility] [address] [id number] [address] [place] [address], [place] [address] Jul, [facility] [address] [id number] [address] [place] [address], [place] [address] Jul, [facility] [address] [id number] [address] [place] [address], [place] [address] Jun, [facility] [address] [id number] [address] [place] [address], [place] [address] Jun, [facility] [address] [id number] [address] [place] [address], [place] [address] May, [facility] [address] [id number] [address] [place] [address], [place] [address] May, [facility] [address] [id number] [address] [place] [address], [place] [address] May, [facility] [address] [id number] [address] [place] [address], [place] [address] May, [facility] [address] [id number] [address] [place] [address], [place] [address] Jan, [facility] [address] [id number] [facility] [place] [address] Jan, [facility] [address] [id number] [address] [place] [address], [place] [address] Nov, [facility] [address] [id number] [address] [place] [address], [place] [address] Nov, [facility] [address] [id number] [address] [place] [address], [place] [address] Nov, [facility] [address] [id number] [address] [place] [address], [place] [address] Nov, [facility] [address] [id number] [address] [place] [address], [place] [address] Nov, [facility] [address] [id number] [address] [place] [address], [place] [address] Nov, [facility] [address] [id number] [address] [place] [address], [place] [address] Nov, [facility] [address] [id number] [address] [place] [address], [place] [address] Nov, [facility] [address] [id number] [address] [place] [address], [place] [address] Nov, [facility] [address] [id number] [address] [place] [address], [place] [address] Nov, [facility] [address] [id number] [address] [place] [address], [place] [address] Oct, [facility] [address] [id number] [address] [place] [address], [place] [address] Oct, [facility] [address] [id number] [address] [place] [address], [place] [address] Oct, [facility] [address] [id number] [address] [place] [address], [place] [address] Oct, [facility] [address] [id number] [address] [place] [address], [place] [address] Sep, [facility] [address] [id number] [address] [place] [address], [place] [address] Sep, [facility] [address] [id number] [address] [place] [address], [place] [address] Aug, [facility] [address] [id number] [address] [place] [address], [place] [address] Aug, [facility] [address] [id number] [address] [place] [address], [place] [address] Aug, [facility] [address] [id number] [address] [place] [address], [place] [address] Aug, [facility] [address] [id number] [address] [place] [address], [place] [address] Aug, [facility] [address] [id number] [address] [place] [address], [place] [address] Aug, [facility] [address] [id number] [address] [place] [address], [place] [address] Aug, [facility] [address] [id number] [address] [place] [address], [place] [address] Aug, [facility] [address] [id number] [address] [place] [address], [place] [address] Jul, [facility] [address] [id number] [address] [place] [address], [place] [address] Jul, [facility] [address] [id number] [address] [place] [address] Jul, [facility] [address] [id number] [address] [place] [address], [place] [address] Jul, [facility] [address] [id number] [address] [place] [address], [place] [address] Jul[facility] [facility] [address] [id number] [address] [place] [id number] Jun, [facility] [address] [id number] [address] [place] [id number] May, [facility] [address] [id number] [address] [place] [id number] Apr, [facility] [address] [id number] [address] [place] [id number] February, [facility] [address] [id number] [address] [place] [phone] Jan, [facility] [address] [id number] [address] [place] [id number] Jan, [facility] [address] [id number] [address] [place] [id number] Dec, [facility] [address] [id number] [address] [place] [id number] Dec, [facility] [address] [id number] [address] [place] [id number] Dec, [facility] [address] [id number] [address] [place] [id number] Nov, [facility] [address] [id number] [address] [place] [id number] Nov, [facility] [address] [id number] [address] [place] [id number] Nov, [facility] [address] [id number] [address] [place] [id number] Nov, IMMUNIZATIONS No Known Immunizations SOCIAL HISTORY [...] Surgical History coronary angiography Dr Mane thakur [facility] [place]- normal EF, LV function,-minimal RCA blockage <20% 1996 [facility], mild nonspecific bulbar duodenitis 1996 Surgical History carotid endarterectomy, right- [facility] 01/14 015 Surgical History Heart cath with PTCA 2013 Surgical History Colonoscopy- tubular adenoma , hyperplastic polyp- repeat Colonoscopy 12/2016 Surgical History Bypass Surgery- CABG and Pacemaker 06/06 Hospitalization History heart attack 1996 Hospitalization History slurred speech, fever, left arm pain Sharifa Shah February 2015 Hospitalization History Pancreatitis 12/2015 Hospitalization History CABG 05/2018
--- OUTSIDE RECORDS SUMMARY | 2020-04-06 06:50 | XMS REPORT ---
Author Author Jermaine Aponte Doctor Organization [facility] Address Unknown Phone Unavailable Care Team Providers Care Court Of Appeals Judge Name Role Phone Migration, Doctor Unavailable Unavailable PROBLEMS Type Condition ICD9-CM Code DYS70-OW Code Onset Dates Condition S tatus SNOMED Code Problem Fatty liver K76.0 Active 03774385 7 Problem Chronic pain G89.29 Active 3403029 1 Problem Abdominal bloating R14.0 Active 1 64342391 Problem Diverticulosis of intestine without bleeding, unspecified intestinal tract location K57.90 Active 68941364 Problem Gastroesophageal reflux disease without esophagitis K21.9 Active 450323847 Problem COPD (chronic obstructive pulmonary disease) wit h chronic bronchitis J44.9 Active 441068972 Problem Bilateral carotid artery disease I77.9 Active 098193195 Problem Chronic bronchitis J42 Active 6 6196348 Problem Claudication of both lower extremities I73.9 Active 472939743 Problem Hyperlipemia E78.5 Active 9470795 4 Problem Non-rheumatic mitral regurgitation I34.0 Active 397709799 Problem Claudication I73.9 Active 2613202 6 Problem Peripheral arterial disease I73.9 Ac tive 914596359 Problem Pacemaker Z95.0 Active 368793166 Problem Chronic obstructive pulmonary disease, unspecified COPD ty pe J44.9 Active 83916177 Problem Tobacco abuse Z72.0 Active 644180 05 Problem Carpal tunnel syndrome on both sides G56.03 Active [id number] Problem PAD (peripheral artery disease) I73.9 Active 446119464 Problem Benign essential hypertension I10 Active 8799413 Problem CAD (coronary artery disease) I25.10 Active 14944721 Problem Mixed hyperlipidemia E78.2 Active 409910517 Problem Other chronic pain G89.29 Active 8 5012093 Problem Diet-controlled diabetes mellitus E11.9 Active 022173403 Problem Degenerative disc disease, cervical M50.30 Active 35226940 ALLERGIES No Information ENCOUNTERS Encounter Location Date Diagnosis [facility] [address] [facility] [id number] [place] [id number] Aug, Carpal tunnel syndrome on both sides G56 .03 ; Sore of lower lip K13.0 ; Benign essential hypertension I10 ; COPD (chronic obstructive pulmonary disease) with chronic bronchitis J44.9 and Hyperlipemia E78.5 [facility] [address] [id number] [id number] May, [facility] [address] AVNORT[id number] [id number] Mar, [facility] [address], [place] [address] Mar, Facet arthritis of cervical region M47.8 12 and Cervical radiculopathy M54.12 [facility] [address] [facility] [id number] [place] [address], [place] [id number] February, Degenerative disc disease, cervical M50. 30 ; Facet arthritis of cervical region M47.812 ; Cervical radiculopathy M54.12 and Pacemaker Z95.0 [facility] [address] [id number] [facility] [id number] February, [facility] [address] [place] [address] AVE [id number] [facility] [id number] Jan, [facility] [address] [facility] [id number] [id number] Sep, Diet-controlled diabetes mellitus E11.9 ; Benign essential hypertension I10 and Tobacco abuse Z72.0 [facility] [address] [id number] [facility] [id number] Jul, Hyperlipemia E78.5 and CAD (coronary art janneth disease) I25.10 [facility] [place] [address] [place] [address] AVE [id number] [facility], [place] [id number] Jun, CAD (coronary artery disease) I25.10 and Hyperlipemia E78.5 [facility] [place] [address] [place] [address] AVE [id number] [place] [id number] Jun, New onset type 2 diabetes mellitus E11.9 ; S/P CABG (coronary artery bypass graft) Z95.1 ; Benign essential hypertension I10 ; Other chronic pain G89.29 and S/P cardiac pacemaker procedure Z95.[address] [id number] [facility] [place] [id number] Jun, [place] [address] [id number] [facility] [id number] May, [address] [id number] [facility] [id number] May, COPD (chronic obstructive pulmonary dise ase) with chronic bronchitis J44.9 ; Tobacco abuse Z72.0 and Tobacco abuse counseling Z71.[address] [id number] [place] [address], [place] [id number] Apr, CAD (coronary artery disease) I25.[address] [id number] [facility], [place] [id number] Mar, Peripheral arterial disease I73.[address] [id number] [place] [address], [place] [id number] February, Chronic pain G89.29 ; Hyperlipemia E78.5 and Benign essential hypertension I10 [address] [id number] [facility], [place] [id number] Jan, COPD (chronic obstructive pulmonary dise ase) with chronic bronchitis J44.[address] [id number] [facility] [id number] Jan, [address] [id number] [facility] [id number] Jan, Peripheral arterial disease I73.9 ; Carlo gn essential hypertension I10 ; Bilateral carotid artery disease I77.9 ; Claudication of both lower extremities I73.9 ; Mixed hyperlipidemia E78.2 ; Tobacco use Z72.0 and Non-rheumatic mitral regurgitation I34.[address] [address] [id number] [facility], [place] [id number] Jan, RUQ pain R10.11 ; Gastroesophageal reflu x disease without esophagitis K21.9 and Change in stool R19.5 [facility] [address] [address] [id number] [place] [id number] Jan, [facility] [address] [id number] [place] [id number] Jan, Neck pain M54.2 ; Benign essential hyper tension I10 ; COPD (chronic obstructive pulmonary disease) with chronic bronchitis J44.9 and Chronic obstructive pulmonary disease, unspecified COPD type J44.9 [facility] [address] [id number] [place] [id number] Jan, Chronic obstructive pulmonary disease, u nspecified COPD type J44.9 [facility] [address] [id number] [place] [id number] Dec, [facility] [address] [address] [id number] [place] [id number] Dec, [facility] [address] [address] [id number] [place] [id number] Dec, COPD (chronic obstructive pulmonary dise ase) with chronic bronchitis J44.9 [facility] [id number] [place] [address] Dec, [facility] [address] [address] Dec, [facility] [place] [address] [id number] [place] [id number] Nov, [facility] [place] [address] [id number] [place] [id number] Nov, Benign essential hypertension I10 and CO PD (chronic obstructive pulmonary disease) with chronic bronchitis J44.9 [facility] [place] [address] [id number] [place] [id number] Nov, Hyperlipemia E78.5 ; Benign essential hy pertension I10 ; COPD (chronic obstructive pulmonary disease) with chronic bronchitis J44.9 ; Encounter for immunization Z23 ; Gastroesophageal reflux disease without esophagitis K21.9 and Chronic pain G89.29 [facility] [address] [id number] [place] [id number] Oct, COPD (chronic obstructive pulmonary dise ase) with chronic bronchitis J44.9 and Chronic obstructive pulmonary disease, unspecified COPD type J44.9 [facility] [place] [id number] [place] [id number] Oct, COPD (chronic obstructive pulmonary dise ase) with chronic bronchitis J44.9 and Chronic obstructive pulmonary disease, unspecified COPD type J44.9 [facility] [address] [id number] [place] [id number] Oct, COPD (chronic obstructive pulmonary dise ase) with chronic bronchitis J44.9 and Chronic obstructive pulmonary disease, unspecified COPD type J44.9 [facility] [address] [id number] [place] [id number] Oct, Benign essential hypertension I10 and Ne ck pain M54.2 [facility] [address] [id number] [place] [address] [place], [place] [id number] Sep, PAD (peripheral artery disease) I73.9 ; Claudication of both lower extremities I73.9 ; Bilateral carotid artery disease I77.9 ; Benign essential hypertension I10 ; Hyperlipemia E78.5 and Dyspnea on exertion R06.09 [facility] [id number] [place] [address] [place], [place] [id number] Aug, Benign essential hypertension I10 ; Vannessa roesophageal reflux disease without esophagitis K21.9 and Cervical radiculopathy M54.12 [facility] [address] [id number] [place] [id number] Aug, Gastroesophageal reflux disease without esophagitis K21.9 [facility] [address] [id number] [place] [id number] Aug, COPD (chronic obstructive pulmonary dise ase) with chronic bronchitis J44.9 [facility] [address] [id number] [place] [id number] Jul, [facility] [address] [id number] [place] [id number] Jul, Benign essential hypertension I10 [facility] [address] [id number] [place] [id number] Jul, [facility] [address] [address] [id number] [place] [id number] Jul, COPD (chronic obstructive pulmonary dise ase) with chronic bronchitis J44.9 [facility] [address] [address] [id number] [place] [id number] Jul, Neck pain M54.2 [facility] [address] [address] [id number] [place] [id number] Jun, Claudication of both lower extremities I 73.9 ; PAD (peripheral artery disease) I73.9 ; Bilateral carotid artery disease I77.9 ; CAD (coronary artery disease) I25.10 ; Tobacco abuse Z72.0 ; Benign essential hypertension I10 ; Hyperlipemia E78.5 and Non-rheumatic mitral valve stenosis I34.2 [facility] [address] [id number] [place] [id number] Jun, Chronic obstructive pulmonary disease, u nspecified COPD type J44.9 [facility] [address] [id number] [place] [id number] May, [facility] [address] [address] [id number] [place] [id number] May, Chronic obstructive pulmonary disease, u nspecified COPD type J44.9 [facility] [address] [id number] [place] [id number] May, Neck pain M54.2 ; Chronic obstructive pu lmonary disease, unspecified COPD type J44.9 and Cervical radiculopathy M54.12 [facility] [address] [id number] [place] [id number] May, [facility] [address] [address] [id number] [place] [id number] Apr, [facility] [address] [address] [id number] [place] [id number] Apr, Gastroesophageal reflux disease without esophagitis K21.9 [facility] [address] [address] [id number] [place] [id number] Apr, COPD (chronic obstructive pulmonary dise ase) with chronic bronchitis J44.[address] [facility] [address] [id number] [place] [id number] Apr, [facility] [place] [address] [id number] [place] [id number] Apr, [facility] [place] [address] [id number] [place] [id number] Apr, COPD (chronic obstructive pulmonary dise ase) with chronic bronchitis J44.9 ; Benign essential hypertension I10 ; Tobacco abuse counseling Z71.6 and Hyperlipemia E78.[address] [facility] [address] [address] [id number] [place] [id number] February, COPD (chronic obstructive pulmonary dise ase) with chronic bronchitis J44.[address] [facility] [address] [id number] [place] [id number] Jan, [facility] [place] [address] [id number] [place] [id number] Jan, COPD (chronic obstructive pulmonary dise ase) with chronic bronchitis J44.[address] [facility] [address] [address] [id number] [place] [id number] Oct, COPD (chronic obstructive pulmonary dise ase) with chronic bronchitis J44.[address] [facility] [address] [id number] [place] [id number] Oct, Winter itch L29.[address] [facility] [place] [address] [id number] [place] [id number] Oct, COPD (chronic obstructive pulmonary dise ase) with chronic bronchitis J44.9 ; Benign essential hypertension I10 ; Tobacco abuse Z72.0 and Gastroesophageal reflux disease without esophagitis K21.[address] [facility] [place] [address] [id number] [place] [id number] Sep, Benign essential hypertension I10 [facility] [place] [address] [id number] [place] [id number] Aug, [facility] [place] [address] [id number] [id number] Jul, [facility] [address], [place] [id number] Apr, [address], [place] [id number] Apr, Abdominal bloating R14.0 ; Fatty liver K 76.0 ; Diverticulosis of intestine without bleeding, unspecified intestinal tract location K57.90 ; Chronic obstructive pulmonary disease, unspecified COPD type J44.9 and Benign essential hypertension I10 [address] [id number] [place] [address], [place] [id number] Apr, Mild early onset dysthymic disorder, in partial remission, with melancholic features, 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, [place] [id number] Mar, Abdominal muscle strain, initial encount er S39.011A [address], [place] [id number] Jan, Pancreatitis K85.9 ; Abdominal bloating R14.0 ; Chronic bronchitis J42 and Chronic pain G89.[address], [place] [id number] Nov, [facility] [address], [place] [id number] Nov, [place] [address] [address] Nov, Chronic bronchitis J42 ; Tobacco abuse Z 72.0 and Tobacco abuse counseling Z71.[address], [place] [id number] Oct, [facility] [address], [place] [address] Oct, Chronic bronchitis J42 ; Tobacco abuse Z 72.0 and Benign essential hypertension I10 [facility] [address], [place] [id number] Oct, Chronic bronchitis J42 ; Tobacco abuse Z 72.0 ; Tobacco abuse counseling Z71.6 ; Benign essential hypertension I10 and Hyperlipemia E78.5 [facility] [address] [address] Sep, [facility] [address] [id number] [id number] Jul, [facility] [address] [address] Jul, Essential (primary) hypertension I10 [facility] [address] [place] [address] Jul, [facility] [address] [id number] [place] [id number] Jul, [facility] [address] [id number] [id number] Jun, Benign essential hypertension 401.1 ; Ge neralized edema 782.3 ; Chronic pain 338.29 and Hyperlipemia 272.4 [facility] [address] [id number] [id number] May, Upper respiratory infection 465.9 and Co ugh 786.[address] [facility] [id number] [id number] Mar, Upper respiratory infection 465.9 ; 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 and Cough 786.[address] [place] [place] [id number] [place] [id number] February, [facility] [address] [id number] 634[address]79[address] February, Status post bilateral carotid endarterec vito V45.89 ; CAD (coronary artery disease) 414.00 ; Benign essential hypertension 401.1 ; Hyperlipemia 272.4 ; Tobacco abuse 305.1 ; Tobacco abuse counseling V65.42 and Chronic bronchitis 491.9 [facility] [address] [address] Jan, [place] [address] [id number] [place] [address] Jan, [facility] [address] [id number] [place] [address] Dec, [facility] [address] [id number] [place] [address] Dec, [facility] [address] [id number] [place] [address] Nov, [facility] [address] [id number] [place] [address] Nov, [facility] [address] [id number] [place] [address] Nov, [facility] [address] [id number] [place] [address] Nov, [facility] [address] [id number] [place] [address] Nov, [facility] [address] [id number] [place] [address] Nov, [facility] [address] [id number] [place] [address] Nov, [facility] [address] [id number] [place] [address] Nov, [facility] [address] [id number] [place] [address] Nov, [facility] [address] [id number] [place] [address] Oct, [facility] [address] [id number] [place] [address] Oct, [facility] [address] [id number] [place] [address] Oct, [facility] [address] [id number] [place] [address] Oct, [facility] [address] [id number] [place] [address] Oct, [facility] [address] [id number] [place] [address] Oct, [facility] [address] [id number] [place] [address] Oct, [facility] [address] [id number] [place] [address] Oct, [facility] [address] [id number] [place] [address] Oct, [facility] [address] [id number] [place] [address] Oct, [facility] [address] [id number] [place] [id number] Oct, [facility] [address] [id number] [place] [address] Oct, [facility] [address] [id number] [place] [address] Sep, [facility] [address] [id number] [place] [address] Sep, [facility] [address] [id number] [place] [address] Aug, [facility] [address] [id number] [place] [address] Aug, [facility] [address] [id number] [place] [address] Aug, [facility] [address] [id number] [place] [address] Aug, [facility] [address] [id number] [place] [address] Jul, [facility] [address] [id number] [place] [address] Jul, [facility] [address] [id number] [place] [address] Jun, [facility] [address] [id number] [place] [address] Jun, [facility] [address] [facility] [id number] [place] [address] May, [facility] [address] [id number] [place] [address] May, [facility] [address] [id number] [place] [address] May, [facility] [address] [id number] [place] [address] May, [facility] [address] [id number] [place] [address] Jan, [facility] [address] [id number] [place] [address] Jan, [facility] [address] [id number] [place] [address] Nov, [facility] [address] [id number] [place] [address] Nov, [facility] [address] [id number] [place] [address] Nov, [facility] [address] [id number] [place] [address] Nov, [facility] [address] [id number] [place] [address] Nov, [facility] [address] [id number] [place] [address] Nov, [facility] [address] [id number] [place] [address] Nov, [facility] [address] [id number] [place] [address] Nov, [facility] [address] [id number] [place] [address] Nov, [facility] [address] [id number] [place] [address] Nov, [facility] [address] [id number] [place] [address] Oct, [facility] [address] [id number] [place] [address] Oct, [facility] [address] [id number] [place] [address] Oct, [facility] [address] [id number] [place] [address] Oct, [facility] [address] [id number] [place] [address] Sep, [facility] [address] [id number] [place] [address] Sep, [facility] [address] [id number] [place] [address] Aug, [facility] [address] [id number] [place] [address] Aug, [facility] [address] [id number] [place] [address] Aug, [facility] [address] [id number] [place] [address] Aug, [facility] [address] [id number] [place] [address] Aug, [facility] [address] [id number] [place] [address] Aug, [facility] [address] [id number] [place] [address] Aug, [facility] [address] [id number] [place] [address] Aug, [facility] [address] [id number] [place] [address] Jul, [facility] [address] [id number] [place] [address] Jul, [facility] [address] [id number] [place] [address] Jul, [facility] [address] [id number] [place] [address] Jul, [facility] [id number] [place] [address] Jul, [facility] [id number] [place] [address] Jun, [facility] [id number] [place] [address] May, [facility] [id number] [place] [address] Apr, [facility] [id number] [place] [address] February, [facility] [id number] [place] [address] Jan, [facility] [id number] [place] [address] Jan, [facility] [id number] [place] [address] Dec, [facility] [id number] [place] [address] Dec, [facility] [id number] [place] [address] Dec, [facility] [id number] [place] [address] Nov, [facility] [address] [id number] [place] [address] Nov, [facility] [id number] [place] [address] Nov, [facility] [address] [id number] [place] [address] Nov, IMMUNIZATIONS No Known Immunizations SOCIAL HISTORY Never Assessed REASON FOR VISIT PLAN OF CARE VITAL SIGNS MEDICATIONS No Known Medications RESULTS No Results PROCEDURES Procedure Date Ordered Result Body Site ASSAY THYROID STIM HORMONE Nov 06, 2013 ASSAY OF MAGNESIUM Nov 06, 2013 LIPID PANEL Nov 06, 2013 COMPREHEN METABOLIC PANEL Nov 06, 2013 VENIPUNCT, ROUTINE* Nov 06, 2013 INSTRUCTIONS MEDICATIONS ADMINISTERED No Known Medications [...] 02/2015 Surgical History coronary [facility], [facility],-minimal RCA blockage <20% 1996 Surgical History EGD-Dr.Makdisi Sharp-mild erosive esophagitis, mild nonspecific bulbar duodenitis 1996 Surgical History carotid endarterectomy, right- [facility] 01/14 015 Surgical History Heart cath with PTCA 2013 Surgical History Colonoscopy- tubular adenoma , hyperplastic polyp- repeat Colonoscopy 12/2016 Surgical History Bypass Surgery- CABG and Pacemaker 06/06 Hospitalization History heart attack 1996 Hospitalization History slurred speech, fever, left arm pain [facility] [place] February 2015 Hospitalization History Pancreatitis 12/2015 Hospitalization History CABG 05/2018
--- OUTSIDE RECORDS SUMMARY | 2020-04-06 06:51 | XMS REPORT ---
Author Author Jermaine CAMPOS [facility] [place] [place] Address [address] [place] [address] Care Team Providers Care Grain Buyer Name Role Phone TIFFANIE CAMPOS Unavailable PROBLEMS Type Condition ICD9-CM Code ZCW53-WN Code Onset Dates Condition S tatus SNOMED Code Problem Fatty liver K76.0 Active 56538905 7 Problem Chronic pain G89.29 Active 2313321 1 Problem Abdominal bloating R14.0 Active 1 92530009 Problem Diverticulosis of intestine without bleeding, unspecified intestinal tract location K57.90 Active 69290804 Problem Gastroesophageal reflux disease without esophagitis K21.9 Active 718822972 Problem COPD (chronic obstructive pulmonary disease) wit h chronic bronchitis J44.9 Active 937569072 Problem Bilateral carotid artery disease I77.9 Active 316607287 Problem Chronic bronchitis J42 Active 6 6780441 Problem Claudication of both lower extremities I73.9 Active 718221618 Problem Hyperlipemia E78.5 Active 5181798 4 Problem Non-rheumatic mitral regurgitation I34.0 Active 104946719 Problem Claudication I73.9 Active 1935538 6 Problem Peripheral arterial disease I73.9 Ac tive 316530642 Problem Pacemaker Z95.0 Active 737775785 Problem Chronic obstructive pulmonary disease, unspecified COPD ty pe J44.9 Active 42640172 Problem Tobacco abuse Z72.0 Active 389531 05 Problem Carpal tunnel syndrome on both sides G56.03 Active 02571628325540570 Problem PAD (peripheral artery disease) I73.9 Active 041147109 Problem Benign essential hypertension I10 Active 0645667 Problem CAD (coronary artery disease) I25.10 Active 34038411 Problem Mixed hyperlipidemia E78.2 Active 379547111 Problem Other chronic pain G89.29 Active 8 6606225 Problem Diet-controlled diabetes mellitus E11.9 Active 357474466 Problem Degenerative disc disease, cervical M50.30 Active 14902389 ALLERGIES No Information ENCOUNTERS Encounter Location Date Diagnosis [facility] [id number] [place] [id number] Aug, Carpal tunnel syndrome on both sides G56 .03 ; Sore of lower lip K13.0 ; Benign essential hypertension I10 ; COPD (chronic obstructive pulmonary disease) with chronic bronchitis J44.9 and Hyperlipemia E78.5 [facility] [id number] [place] [address], [place] [id number] May, [facility] [place] [id number] [place] [address], [place] [id number] Mar, [facility] [employer] [place] [address], [place] [id number] Mar, Facet arthritis of cervical region M47.8 12 and Cervical radiculopathy M54.12 [facility] [id number] [place] [address], [place] [id number] February, Degenerative disc disease, cervical M50. 30 ; Facet arthritis of cervical region M47.812 ; Cervical radiculopathy M54.12 and Pacemaker Z95.0 [facility] [id number] [place] [id number] February, [facility] [id number] [place] [id number] Jan, [facility] [id number] [place] [address]135438 Sep, Diet-controlled diabetes mellitus E11.9 ; Benign essential hypertension I10 and Tobacco abuse Z72.0 [facility] [employer] [place] [address] AVE [id number] [place] [id number] Jul, Hyperlipemia E78.5 and CAD (coronary art janneth disease) I25.10 [facility] [employer] [place] [address] AVE [id number] [place] [id number] Jun, CAD (coronary artery disease) I25.10 and Hyperlipemia E78.5 [facility] [employer] [place] [address] [id number] [place] [address], [place] [id number] Jun, New onset type 2 diabetes mellitus E11.9 ; S/P CABG (coronary artery bypass graft) Z95.1 ; Benign essential hypertension I10 ; Other chronic pain G89.29 and S/P cardiac pacemaker procedure Z95.[address] [id number] [place] [id number] Jun, [facility] [id number] [place] [id number] May, [address], [place] [id number] May, COPD (chronic obstructive pulmonary dise ase) with chronic bronchitis J44.9 ; Tobacco abuse Z72.0 and Tobacco abuse counseling Z71.[address] [id number] [place] [id number] Apr, CAD (coronary artery disease) I25.[address] [id number] [place] [address], [place] [id number] Mar, Peripheral arterial disease I73.[address] [id number] [place] [id number] February, Chronic pain G89.29 ; Hyperlipemia E78.5 and Benign essential hypertension I10 [address] [id number] [place] [id number] Jan, COPD (chronic obstructive pulmonary dise ase) with chronic bronchitis J44.[address] [id number] [id number] Jan, [address] [id number][address] [facility] [place] [id number] Jan, Peripheral arterial disease I73.9 ; Carlo gn essential hypertension I10 ; Bilateral carotid artery disease I77.9 ; Claudication of both lower extremities I73.9 ; Mixed hyperlipidemia E78.2 ; Tobacco use Z72.0 and Non-rheumatic mitral regurgitation I34.0 [facility] [id number] [place] [id number] Jan, RUQ pain R10.11 ; Gastroesophageal reflu x disease without esophagitis K21.9 and Change in stool R19.5 [facility] [address] [id number] [place] [id number] Jan, [facility] [address] [id number] [place] [id number] Jan, Neck pain M54.2 ; Benign essential hyper tension I10 ; COPD (chronic obstructive pulmonary disease) with chronic bronchitis J44.9 and Chronic obstructive pulmonary disease, unspecified COPD type J44.9 [facility] [address] [id number] [place] [id number] Jan, Chronic obstructive pulmonary disease, u nspecified COPD type J44.9 [facility] [id number] [place] [id number] Dec, [facility] AVCA[facility] [id number] [place] [phone] Dec, [facility] [id number] [place] [id number] Dec, COPD (chronic obstructive pulmonary dise ase) with chronic bronchitis J44.9 [facility] [address] [address] Dec, [facility] [address] [address] Dec, [facility] [id number] [place] [id number] Nov, [facility] [place] [address] [id number] [place] [id number] Nov, Benign essential hypertension I10 and CO PD (chronic obstructive pulmonary disease) with chronic bronchitis J44.9 [facility] [address] [id number] [place] [id number] 15 Nov, 2017 Hyperlipemia E78.5 ; Benign essential hy pertension I10 ; COPD (chronic obstructive pulmonary disease) with chronic bronchitis J44.9 ; Encounter for immunization Z23 ; Gastroesophageal reflux disease without esophagitis K21.9 and Chronic pain G89.[address] [id number] [place] [id number] Oct, COPD (chronic obstructive pulmonary dise ase) with chronic bronchitis J44.9 and Chronic obstructive pulmonary disease, unspecified COPD type J44.[address] [place] [place] [address] [id number] [place] [id number] Oct, COPD (chronic obstructive pulmonary dise ase) with chronic bronchitis J44.9 and Chronic obstructive pulmonary disease, unspecified COPD type J44.[address] [place] [address] [id number] [place] [id number] Oct, COPD (chronic obstructive pulmonary dise ase) with chronic bronchitis J44.9 and Chronic obstructive pulmonary disease, unspecified COPD type J44.[address] [id number] [place] [id number] Oct, Benign essential hypertension I10 and Ne ck pain M54.[address] [id number] [place] [id number] Sep, PAD (peripheral artery disease) I73.9 ; Claudication of both lower extremities I73.9 ; Bilateral carotid artery disease I77.9 ; Benign essential hypertension I10 ; Hyperlipemia E78.5 and Dyspnea on exertion R06.[address] [id number] [place] [id number] Aug, Benign essential hypertension I10 ; Vannessa roesophageal reflux disease without esophagitis K21.9 and Cervical radiculopathy M54.[address] [id number] [place] [id number] Aug, Gastroesophageal reflux disease without esophagitis K21.[address] [id number] [place] [id number] Aug, COPD (chronic obstructive pulmonary dise ase) with chronic bronchitis J44.9 [facility] [place] [address] [id number] [place] [id number] Jul, [address] [id number] [place] [id number] Jul, Benign essential hypertension I10 [facility] [address] [address] [id number] [place] [id number] Jul, [facility] [address] [address] [id number] [place] [id number] Jul, COPD (chronic obstructive pulmonary dise ase) with chronic bronchitis J44.9 [facility] [address] [id number] [place] [id number] Jul, Neck pain M54.2 [facility] [address] [id number] [place] 314053447 Jun, Claudication of both lower extremities I 73.9 ; PAD (peripheral artery disease) I73.9 ; Bilateral carotid artery disease I77.9 ; CAD (coronary artery disease) I25.10 ; Tobacco abuse Z72.0 ; Benign essential hypertension I10 ; Hyperlipemia E78.5 and Non-rheumatic mitral valve stenosis I34.2 [facility] [address] [id number] [place] [id number] Jun, Chronic obstructive pulmonary disease, u nspecified COPD type J44.9 [facility] [address] [id number] [place] [id number] May, [facility] [address] [id number] [place] [id number] May, Chronic obstructive pulmonary disease, u nspecified COPD type J44.9 [facility] [address] [id number] [place] [id number] May, Neck pain M54.2 ; Chronic obstructive pu lmonary disease, unspecified COPD type J44.9 and Cervical radiculopathy M54.12 [facility] [address] [id number] [place] [id number] May, [facility] [address] [id number] [place] [id number] Apr, [facility] [address] [id number] [place] [id number] Apr, Gastroesophageal reflux disease without esophagitis K21.[address] [facility] [place] [address] [id number] [place] [id number] Apr, COPD (chronic obstructive pulmonary dise ase) with chronic bronchitis J44.[address] [facility] [place] [address] [id number] [place] [id number] Apr, [facility] [address] [id number] [place] [id number] Apr, [facility] [place] [address] [id number] [place] [id number] Apr, COPD (chronic obstructive pulmonary dise ase) with chronic bronchitis J44.9 ; Benign essential hypertension I10 ; Tobacco abuse counseling Z71.6 and Hyperlipemia E78.[address] [facility] [place] [address] [id number] [place] [id number] February, COPD (chronic obstructive pulmonary dise ase) with chronic bronchitis J44.[address] [facility] [address] [address] [id number] [place] [id number] Jan, [facility] [place] [address] [id number] [place] [id number] Jan, COPD (chronic obstructive pulmonary dise ase) with chronic bronchitis J44.[address] [facility] [address] [address] [id number] [place] [id number] Oct, COPD (chronic obstructive pulmonary dise ase) with chronic bronchitis J44.[address] [facility] [address] [address] [id number] [place] [id number] Oct, Winter itch L29.[address] [facility] [address] [id number] [place] [id number] Oct, COPD (chronic obstructive pulmonary dise ase) with chronic bronchitis J44.9 ; Benign essential hypertension I10 ; Tobacco abuse Z72.0 and Gastroesophageal reflux disease without esophagitis K21.[address] [facility] [address] [id number] [place] [id number] Sep, Benign essential hypertension I[address] [facility] [address] [id number] [place] [id number] Aug, [place] [address] [id number] [place] [id number] Jul, [place] [address] [id number] [facility] [place] [id number] Apr, [place] [address] [id number][address] [facility] [place] [id number] Apr, Abdominal bloating R14.0 ; Fatty liver K 76.0 ; Diverticulosis of intestine without bleeding, unspecified intestinal tract location K57.90 ; Chronic obstructive pulmonary disease, unspecified COPD type J44.9 and Benign essential hypertension I10 [address] [place] [address] [id number][address] [facility] [id number] Apr, Mild early onset dysthymic disorder, in partial remission, with melancholic features, 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 [place] [address] [id number][address] [facility] [place] [id number] Mar, Abdominal muscle strain, initial encount er S39.011A [place] [address] [id number] [facility] [place] [id number] Jan, Pancreatitis K85.9 ; Abdominal bloating R14.0 ; Chronic bronchitis J42 and Chronic pain G89.[address] [id number][address] [facility] [id number] Nov, [facility] [place] [address] [id number] [facility] [id number] Nov, [facility] [place] [address] [id number] [facility] [id number] Nov, Chronic bronchitis J42 ; Tobacco abuse Z 72.0 and Tobacco abuse counseling Z71.[address] [place] [id number] [place] [id number] Oct, [facility] [place] [address] [id number] [id number] Oct, Chronic bronchitis J42 ; Tobacco abuse Z 72.0 and Benign essential hypertension I10 [address] [facility]CA[facility]OSPITALTR44248VGR[place] [id number] Oct, Chronic bronchitis J42 ; Tobacco abuse Z 72.0 ; Tobacco abuse counseling Z71.6 ; Benign essential hypertension I10 and Hyperlipemia E78.5 [place] [address] [place] [id number] [place] [address] Sep, [address] [id number] Jul, [facility] [address] [address] Jul, Essential (primary) hypertension I10 [address] [address] Jul, [address] [id number] Jul, [address] [id number] Jun, Benign essential hypertension 401.1 ; Ge neralized edema 782.3 ; Chronic pain 338.29 and Hyperlipemia 272.[address]07757[place] [id number] May, Upper respiratory infection 465.9 and Co ugh 786.2 [place] [id number] [place] [id number] Mar, Upper respiratory infection 465.9 ; 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 and Cough 786.[address]07757[place] [address] February, [address] [id number] February, Status post bilateral carotid endarterec vito V45.89 ; CAD (coronary artery disease) 414.00 ; Benign essential hypertension 401.1 ; Hyperlipemia 272.4 ; Tobacco abuse 305.1 ; Tobacco abuse counseling V65.42 and Chronic bronchitis 491.9 [place] [address] [place] [address] 14 Jan, 2015 [facility] [address] [place] [address] Jan, [facility] [address] [place] [address] Dec, [facility] [address] [place] [address] Dec, [facility] [address] [place] [address] Nov, [facility] [address] [place] [address] Nov, [facility] [address] [place] [address] Nov, [facility] [address] [place] [address] Nov, [facility] [address] [place] [address] Nov, [facility] [address] [place] [address] Nov, [facility] [address] [place] [address] Nov, [facility] [address] [place] [address] Nov, [facility] [address] [place] [address] Nov, [facility] [address] [place] [address] Oct, [facility] [id number] [place] [address] Oct, [facility] [id number] [place] [address] Oct, [facility] [address] [place] [address] Oct, [facility] [address] [facility] [id number] [place] [address] Oct, [facility] [id number] [place] [address] Oct, [facility] [id number] [place] [address] Oct, [facility] [address] [place] [address] Oct, [facility] [address] [place] [address] Oct, [facility] [id number] [place] [address] Oct, [facility] [address] [id number] [place] [id number] Oct, [facility] [address] [place] [address] Oct, [facility] [address] [place] [address] Sep, [facility] [id number] [place] [address] Sep, [facility] [address] [place] [address] Aug, [facility] [address] [place] [address] Aug, [facility] [id number] [place] [address] Aug, [facility] [id number] [place] [address] Aug, [facility] [address] [place] [address] Jul, [facility] [id number] [place] [address] Jul, [facility] [id number] [place] [address] 08 Jun, 2014 [facility] [address] [facility] [id number] [place] [address] Jun, [facility] [id number] [place] [address] May, [facility] [id number] [place] [address] May, [facility] [id number] [place] [address] May, [facility] [id number] [place] [address] May, [facility] [id number] [place] [address] Jan, [facility] [id number] [place] [address] Jan, [facility] [id number] [place] [address] Nov, [facility] [id number] [place] [address] Nov, [facility] [id number] [place] [address] Nov, [facility] [id number] [place] [address] Nov, [facility] [id number] [place] [address] Nov, [facility] [id number] [place] [address] Nov, [facility] [id number] [place] [address] Nov, [facility] [id number] [place] [address] Nov, [facility] [id number] [place] [address] Nov, [facility] [id number] [place] [address] Nov, [facility] [id number] [place] [address] Oct, [facility] [id number] [place] [address] Oct, [facility] [id number] [place] [address] Oct, [facility] [id number] [place] [address] Oct, [facility] [id number] [place] [address] Sep, [facility] [id number] [place] [address] Sep, [facility] [id number] [place] [address] Aug, [facility] [id number] [place] [address] Aug, [facility] [id number] [place] [address] Aug, [facility] [id number] [place] [address] Aug, [facility] [id number] [place] [address] Aug, [facility] [id number] [place] [address] Aug, [facility] [id number] [place] [address] Aug, [facility] [id number] [place] [address] Aug, [facility] [id number] [place] [address] Jul, [facility] [id number] [place] [address] Jul, [facility] [id number] [place] [address] Jul, [facility] [id number] [place] [address] Jul, [facility] [id number] [place] [address] Jul, [facility] [id number] [place] [address] Jun, [facility] [id number] [place] [address] May, [facility] [id number] [place] [address] Apr, [facility] [id number] [place] [address] February, [facility] [id number] [place] [address] Jan, [facility] [id number] [place] [address] Jan, [facility] [id number] [place] [address] Dec, [facility] [id number] [place] [address] Dec, [facility] [id number] [place] [address] Dec, [facility] [id number] [place] [address] Nov, [facility] [id number] [place] [address] Nov, [facility] [id number] [place] [address] Nov, [facility] [id number] [place] [address] Nov, IMMUNIZATIONS No Known Immunizations SOCIAL HISTORY Never Assessed REASON FOR VISIT PLAN OF CARE VITAL SIGNS Height 62 in 2013-11-17 Weight 146 lbs 2013-11-17 Temperature 96.9 degrees Fahrenheit 2013-11-17 Heart Rate 62 bpm 2013-11-17 Respiratory Rate 16 2013-11-17 Blood pressure systolic 152 mmHg 2013-11-17 Blood pressure diastolic 68 mmHg 2013-11-17 MEDICATIONS No Known Medications RESULTS No Results PROCEDURES Procedure Date Ordered Result Body Site THER/PROPH/DIAG INJ, SC/IM Nov 17, 2013 INJ VIT B-12 CYNOCOBLMN TO 1000 MCG Nov 17, 2013 INSTRUCTIONS MEDICATIONS ADMINISTERED No Known Medications MEDICAL (GENERAL) HISTORY Type Description Date Medical History GERD Medical History hypertension Medical History 1999 mild stroke syndrome- C T head 02/2015 showed chronic ischemic changes Medical History chronic neck and back pain Medical History [place] x's 2 1996 and 2011 Medical History [...] 02/2015 Surgical History coronary angiography Dr Mane Shah- normal EF, LV function,-minimal RCA blockage <20% 1996 Surgical History EGD-Dr.Makdisi Sharp-mild erosive esophagitis, mild nonspecific bulbar duodenitis 1996 Surgical History carotid endarterectomy, right- [facility] 01/14 015 Surgical History Heart cath with [facility]CA 2013 Surgical History Colonoscopy- tubular adenoma , hyperplastic polyp- repeat Colonoscopy 12/2016 Surgical History Bypass Surgery- CABG and Pacemaker 06/06 Hospitalization History heart attack 1996 Hospitalization History slurred speech, fever, left arm pain Sharifa Shah February 2015 Hospitalization History Pancreatitis 12/2015 Hospitalization History CABG 05/2018
--- OUTSIDE RECORDS SUMMARY | 2020-04-06 06:51 | XMS REPORT ---
Author Author Jermaine Aponte Doctor Organization [facility] Address Unknown Phone Unavailable Care Team Providers Care Cement Contractor Name Role Phone Migration, Doctor Unavailable Unavailable PROBLEMS Type Condition ICD9-CM Code MPI69-SV Code Onset Dates Condition S tatus SNOMED Code Problem Fatty liver K76.0 Active 28087080 7 Problem Chronic pain G89.29 Active 4325911 1 Problem Abdominal bloating R14.0 Active 1 59814108 Problem Diverticulosis of intestine without bleeding, unspecified intestinal tract location K57.90 Active 04453542 Problem Gastroesophageal reflux disease without esophagitis K21.9 Active 542950774 Problem COPD (chronic obstructive pulmonary disease) wit h chronic bronchitis J44.9 Active 585890761 Problem Bilateral carotid artery disease I77.9 Active 362395596 Problem Chronic bronchitis J42 Active 6 7188482 Problem Claudication of both lower extremities I73.9 Active 777354946 Problem Hyperlipemia E78.5 Active 8913627 4 Problem Non-rheumatic mitral regurgitation I34.0 Active 595204750 Problem Claudication I73.9 Active 2639987 6 Problem Peripheral arterial disease I73.9 Ac tive 047677564 Problem Pacemaker Z95.0 Active 671619291 Problem Chronic obstructive pulmonary disease, unspecified COPD ty pe J44.9 Active 23344087 Problem Tobacco abuse Z72.0 Active 320105 05 Problem Carpal tunnel syndrome on both sides G56.03 Active 63058302476509037 Problem PAD (peripheral artery disease) I73.9 Active 527143139 Problem Benign essential hypertension I10 Active 8137873 Problem CAD (coronary artery disease) I25.10 Active 17389573 Problem Mixed hyperlipidemia E78.2 Active 580122610 Problem Other chronic pain G89.29 Active 8 6142968 Problem Diet-controlled diabetes mellitus E11.9 Active 942562224 Problem Degenerative disc disease, cervical M50.30 Active 56656565 ALLERGIES No Information ENCOUNTERS Encounter Location Date Diagnosis [facility] [address] [facility] [id number] [place] [id number] Aug, Carpal tunnel syndrome on both sides G56 .03 ; Sore of lower lip K13.0 ; Benign essential hypertension I10 ; COPD (chronic obstructive pulmonary disease) with chronic bronchitis J44.9 and Hyperlipemia E78.5 [facility] [place] [id number] [id number] May, [facility] AV[facility]37388[facility] [place] [id number] Mar, [facility] [place], [place] [id number] Mar, Facet arthritis of cervical region M47.8 12 and Cervical radiculopathy M54.12 [facility] [place] AV[id number] [place] [address], [place] [id number] February, Degenerative disc disease, cervical M50. 30 ; Facet arthritis of cervical region M47.812 ; Cervical radiculopathy M54.12 and Pacemaker Z95.0 [facility] [place] [id number] [place] [id number] February, [facility] [address] [place] [address] AVE [id number] [place] [id number] Jan, [facility] [place] AV[id number], [place] [id number] Sep, Diet-controlled diabetes mellitus E11.9 ; Benign essential hypertension I10 and Tobacco abuse Z72.0 [facility] [place] [id number] [id number] Jul, Hyperlipemia E78.5 and CAD (coronary art janneth disease) I25.10 [facility] [address] [place] [address] AVE [id number] [id number] Jun, CAD (coronary artery disease) I25.10 and Hyperlipemia E78.5 [facility] [address] [place] [address] AVE [id number] [place] [id number] Jun, New onset type 2 diabetes mellitus E11.9 ; S/P CABG (coronary artery bypass graft) Z95.1 ; Benign essential hypertension I10 ; Other chronic pain G89.29 and S/P cardiac pacemaker procedure Z95.[address] [id number] [place] [id number] Jun, [place] [address] [id number] [id number] May, [address] [id number] [place] [id number] May, COPD (chronic obstructive pulmonary dise ase) with chronic bronchitis J44.9 ; Tobacco abuse Z72.0 and Tobacco abuse counseling Z71.[address] [id number] [place] [address], [place] [id number] Apr, CAD (coronary artery disease) I25.[address] [id number] [place] [id number] Mar, Peripheral arterial disease I73.[address] [id number] [place] [address], [place] [id number] February, Chronic pain G89.29 ; Hyperlipemia E78.5 and Benign essential hypertension I10 [address] [id number] [place] [id number] Jan, COPD (chronic obstructive pulmonary dise ase) with chronic bronchitis J44.[address] [id number] [place] [id number] Jan, [address] [id number] [place] [id number] Jan, Peripheral arterial disease I73.9 ; Carlo gn essential hypertension I10 ; Bilateral carotid artery disease I77.9 ; Claudication of both lower extremities I73.9 ; Mixed hyperlipidemia E78.2 ; Tobacco use Z72.0 and Non-rheumatic mitral regurgitation I34.[address] [place] [address] [id number], [place] [id number] Jan, RUQ pain R10.11 ; Gastroesophageal reflu x disease without esophagitis K21.9 and Change in stool R19.5 [facility] [id number] [place] [id number] Jan, [facility] [address] [id number] [place] [id number] Jan, Neck pain M54.2 ; Benign essential hyper tension I10 ; COPD (chronic obstructive pulmonary disease) with chronic bronchitis J44.9 and Chronic obstructive pulmonary disease, unspecified COPD type J44.9 [facility] [place] [address] [id number] [place] [id number] Jan, Chronic obstructive pulmonary disease, u nspecified COPD type J44.9 [facility] [address] [id number] [place] [id number] Dec, [facility] [address] [id number] [place] [id number] Dec, [facility] [address] [id number] [place] [id number] Dec, COPD (chronic obstructive pulmonary dise ase) with chronic bronchitis J44.9 [facility] [id number] [place] [address] Dec, [facility] [address] [address] Dec, [facility] [place] [address] [id number] [place] [id number] Nov, [facility] [place] [address] [id number] [place] [id number] Nov, Benign essential hypertension I10 and CO PD (chronic obstructive pulmonary disease) with chronic bronchitis J44.9 [facility] [place] [address] [id number] [place] [id number] Nov, Hyperlipemia E78.5 ; Benign essential hy pertension I10 ; COPD (chronic obstructive pulmonary disease) with chronic bronchitis J44.9 ; Encounter for immunization Z23 ; Gastroesophageal reflux disease without esophagitis K21.9 and Chronic pain G89.29 [facility] [address] [id number] [place] [id number] Oct, COPD (chronic obstructive pulmonary dise ase) with chronic bronchitis J44.9 and Chronic obstructive pulmonary disease, unspecified COPD type J44.9 [facility] [place] [address] [id number] [place] [id number] Oct, COPD (chronic obstructive pulmonary dise ase) with chronic bronchitis J44.9 and Chronic obstructive pulmonary disease, unspecified COPD type J44.9 [facility] [place] [address] [id number] [place] [id number] Oct, COPD (chronic obstructive pulmonary dise ase) with chronic bronchitis J44.9 and Chronic obstructive pulmonary disease, unspecified COPD type J44.9 [facility] [place] [address] [id number] [place] [id number] Oct, Benign essential hypertension I10 and Ne ck pain M54.2 [facility] [address] [id number] [place] [address] S, [place] [id number] Sep, PAD (peripheral artery disease) I73.9 ; Claudication of both lower extremities I73.9 ; Bilateral carotid artery disease I77.9 ; Benign essential hypertension I10 ; Hyperlipemia E78.5 and Dyspnea on exertion R06.09 [facility] [id number] [place] [address] S, [place] [id number] Aug, Benign essential hypertension I10 ; Vannessa roesophageal reflux disease without esophagitis K21.9 and Cervical radiculopathy M54.12 [facility] [place] [address] [id number] [place] [id number] Aug, Gastroesophageal reflux disease without esophagitis K21.9 [facility] [place] [address] [id number] [place] [id number] Aug, COPD (chronic obstructive pulmonary dise ase) with chronic bronchitis J44.9 [facility] [place] [address] [id number] [place] [id number] Jul, [facility] [address] [id number] [place] [id number] Jul, Benign essential hypertension I10 [facility] [address] [id number] [place] [id number] Jul, [facility] [place] [address] [id number] [place] [id number] Jul, COPD (chronic obstructive pulmonary dise ase) with chronic bronchitis J44.9 [facility] [place] [address] [id number] [place] [id number] Jul, Neck pain M54.2 [facility] [place] [address] [id number] [place] [id number] Jun, Claudication of both lower extremities I 73.9 ; PAD (peripheral artery disease) I73.9 ; Bilateral carotid artery disease I77.9 ; CAD (coronary artery disease) I25.10 ; Tobacco abuse Z72.0 ; Benign essential hypertension I10 ; Hyperlipemia E78.5 and Non-rheumatic mitral valve stenosis I34.2 [facility] [place] [address] [id number] [place] [id number] Jun, Chronic obstructive pulmonary disease, u nspecified COPD type J44.9 [facility] [place] [address] [id number] [place] [id number] May, [facility] [place] [address] [id number] [place] [id number] May, Chronic obstructive pulmonary disease, u nspecified COPD type J44.9 [facility] [place] [address] [id number] [place] [id number] May, Neck pain M54.2 ; Chronic obstructive pu lmonary disease, unspecified COPD type J44.9 and Cervical radiculopathy M54.12 [facility] [place] [address] [id number] [place] [id number] May, [facility] [place] [address] [id number] [place] [id number] Apr, [facility] [place] [address] [id number] [place] [id number] Apr, Gastroesophageal reflux disease without esophagitis K21.9 [facility] [place] [address] [id number] [place] [id number] Apr, COPD (chronic obstructive pulmonary dise ase) with chronic bronchitis J44.[address] [facility] [place] [address] [id number] [place] [id number] Apr, [facility] [place] [address] [id number] [place] [id number] Apr, [facility] [place] [address] [id number] [place] [id number] Apr, COPD (chronic obstructive pulmonary dise ase) with chronic bronchitis J44.9 ; Benign essential hypertension I10 ; Tobacco abuse counseling Z71.6 and Hyperlipemia E78.[address] [facility] [place] [address] [id number] [place] [id number] February, COPD (chronic obstructive pulmonary dise ase) with chronic bronchitis J44.[address] [facility] [place] [address] [id number] [place] [id number] Jan, [facility] [place] [address] [id number] [place] [id number] Jan, COPD (chronic obstructive pulmonary dise ase) with chronic bronchitis J44.[address] [facility] [place] [address] [id number] [place] [id number] Oct, COPD (chronic obstructive pulmonary dise ase) with chronic bronchitis J44.[address] [facility] [place] [address] [id number] [place] [id number] Oct, Winter itch L29.[address] [facility] [place] [address] [id number] [place] [id number] Oct, COPD (chronic obstructive pulmonary dise ase) with chronic bronchitis J44.9 ; Benign essential hypertension I10 ; Tobacco abuse Z72.0 and Gastroesophageal reflux disease without esophagitis K21.[address] [facility] [place] [address] [id number] [place] [id number] Sep, Benign essential hypertension I10 [facility] [place] [address] [id number] [place] [id number] Aug, [facility] [place] [address] [id number] [place] [id number] Jul, [facility] [place] [address], [place] [id number] Apr, [address], [place] [id number] Apr, Abdominal bloating R14.0 ; Fatty liver K 76.0 ; Diverticulosis of intestine without bleeding, unspecified intestinal tract location K57.90 ; Chronic obstructive pulmonary disease, unspecified COPD type J44.9 and Benign essential hypertension I10 [address] AV[facility] [id number] [place] [address], [place] [id number] Apr, Mild early onset dysthymic disorder, in partial remission, with melancholic features, 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, [place] [id number] Mar, Abdominal muscle strain, initial encount er S39.011A [address], [place] [id number] Jan, Pancreatitis K85.9 ; Abdominal bloating R14.0 ; Chronic bronchitis J42 and Chronic pain G89.[address], [place] [id number] Nov, [facility] [place], [place] [id number] Nov, [place] [address], [place] [id number] Nov, Chronic bronchitis J42 ; Tobacco abuse Z 72.0 and Tobacco abuse counseling Z71.[address], [place] [id number] Oct, [facility] [place], [place] [id number] Oct, Chronic bronchitis J42 ; Tobacco abuse Z 72.0 and Benign essential hypertension I10 [facility] [place], [place] [id number] Oct, Chronic bronchitis J42 ; Tobacco abuse Z 72.0 ; Tobacco abuse counseling Z71.6 ; Benign essential hypertension I10 and Hyperlipemia E78.5 [facility] [address] [address] Sep, [facility] [address] [id number] [id number] Jul, [facility] [address] [address] Jul, Essential (primary) hypertension I10 [facility] [address] [place] [address] Jul, [facility] [address] [id number] [place] [id number] Jul, [facility] [address] [id number] [id number] Jun, Benign essential hypertension 401.1 ; Ge neralized edema 782.3 ; Chronic pain 338.29 and Hyperlipemia 272.4 [facility] [address] [id number] [place] [id number] May, Upper respiratory infection 465.9 and Co ugh 786.[address] [facility]ENTERES89456EMERR[place] [id number] Mar, Upper respiratory infection 465.9 ; 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 [place] [address] Jan, [facility] [address] [facility] [place] [address] Dec, [facility] [address] [facility] [place] [address] Dec, [facility] [address] [id number] [place] [address] Nov, [facility] [address] [facility] [place] [address] Nov, [facility] [address] [facility] [place] [address] Nov, [facility] [address] [id number] [place] [address] Nov, [facility] [address] [id number] [place] [address] Nov, [facility] [address] [id number] [place] [address] Nov, [facility] [address] [facility] [place] [address] Nov, [facility] [address] [id number] [place] [address] Nov, [facility] [address] [facility] [place] [address] Nov, [facility] [address] [id number] [place] [address] Oct, [facility] [address] [id number] [place] [address] Oct, [facility] [address] [id number] [place] [address] Oct, [facility] [address] [id number] [place] [address] Oct, [facility] [address] [facility] [place] [address] Oct, [facility] [address] [id number] [place] [address] Oct, [facility] [address] [id number] [place] [address] Oct, [facility] [address] [id number] [place] [address] Oct, [facility] [address] [id number] [place] [address] Oct, [facility] [address] [id number] [place] [address] Oct, [facility] [address] [id number] [place] [id number] Oct, [facility] [address] [facility] [place] [address] Oct, [facility] [address] [id number] [place] [address] Sep, [facility] [address] [id number] [place] [address] Sep, [facility] [address] [id number] [place] [address] Aug, [facility] [address] [id number] [place] [address] Aug, [facility] [address] [id number] [place] [address] Aug, [facility] [address] [id number] [place] [address] Aug, [facility] [address] [id number] [place] [address] Jul, [facility] [address] [id number] [place] [address] Jul, [facility] [address] [id number] [place] [address] Jun, [facility] [address] [id number] [place] [address] Jun, [facility] [address] [facility] [place] [id number] [place] [address] May, [facility] [address] [id number] [place] [address] May, [facility] [address] [id number] [place] [address] May, [facility] [address] [id number] [place] [address] May, [facility] [address] [id number] [place] [address] Jan, [facility] [address] [id number] [place] [address] Jan, [facility] [address] [id number] [place] [address] Nov, [facility] [address] [id number] [place] [address] Nov, [facility] [address] [id number] [place] [address] Nov, [facility] [address] [id number] [place] [address] Nov, [facility] [address] [id number] [place] [address] Nov, [facility] [address] [id number] [place] [address] Nov, [facility] [address] [id number] [place] [address] Nov, [facility] [address] [id number] [place] [address] Nov, [facility] [address] [id number] [place] [address] Nov, [facility] [address] [id number] [place] [address] Nov, [facility] [address] [id number] [place] [address] Oct, [facility] [address] [id number] [place] [address] Oct, [facility] [address] [id number] [place] [address] Oct, [facility] [address] [id number] [place] [address] Oct, [facility] [address] [id number] [place] [address] Sep, [facility] [address] [id number] [place] [address] Sep, [facility] [address] [id number] [place] [address] Aug, [facility] [address] [id number] [place] [address] Aug, [facility] [address] [id number] [place] [address] Aug, [facility] [address] [id number] [place] [address] Aug, [facility] [address] [id number] [place] [address] Aug, [facility] [address] [id number] [place] [address] Aug, [facility] [address] [id number] [place] [address] Aug, [facility] [address] [id number] [place] [address] Aug, [facility] [address] [id number] [place] [address] Jul, [facility] [address] [id number] [place] [address] Jul, [facility] [address] [id number] [place] [address] Jul, [facility] [address] [id number] [place] [address] Jul, [facility] [id number] [place] [address] Jul, [facility] [id number] [place] [address] Jun, [facility] [id number] [place] [address] May, [facility] [id number] [place] [address] Apr, [facility] [id number] [place] [address] February, [facility] [id number] [place] [address] Jan, [facility] [id number] [place] [address] Jan, [facility] [id number] [place] [address] Dec, [facility] [id number] [place] [address] Dec, [facility] [id number] [place] [address] Dec, [facility] [id number] [place] [address] Nov, [facility] [id number] [place] [address] Nov, [facility] [id number] [place] [address] Nov, [facility] [id number] [place] [address] Nov, IMMUNIZATIONS No Known Immunizations SOCIAL HISTORY Never Assessed REASON FOR VISIT PLAN OF CARE VITAL SIGNS Height 62 in 2013-12-10 Weight 150 lbs 2013-12-10 Heart Rate 64 bpm 2013-12-10 MEDICATIONS No Known Medications RESULTS No Results PROCEDURES Procedure Date Ordered Result Body Site MEASURE BLOOD OXYGEN LEVEL Dec 10, 2013 INSTRUCTIONS MEDICATIONS ADMINISTERED No Known Medications MEDICAL (GENERAL) HISTORY Type Description Date Medical History GERD Medical History hypertension Medical History 1999 mild stroke syndrome- C T head 02/2015 showed chronic ischemic changes Medical History chronic neck and back pain Medical History PR x's 2 1996 and 2011 Medical History [...] Surgical History coronary angiography Dr Mane thakur [facility]- normal EF, LV function,-minimal RCA blockage <20% 1996 [facility], mild nonspecific bulbar duodenitis 1996 Surgical History carotid endarterectomy, right- [facility] 01/14 015 Surgical History Heart cath with PTCA 2013 Surgical History Colonoscopy- tubular adenoma , hyperplastic polyp- repeat Colonoscopy 12/2016 Surgical History Bypass Surgery- CABG and Pacemaker 06/06 Hospitalization History heart attack 1996 Hospitalization History slurred speech, fever, [facility]/2015 Hospitalization History CABG 05/2018
--- OUTSIDE RECORDS SUMMARY | 2020-04-06 06:51 | XMS REPORT ---
Author Author Jermaine CAMPOS [facility] Address [address] [place] [address] Care Team Providers Care Loan Analyst Name Role Phone TIFFANIE CAMPOS Unavailable PROBLEMS Type Condition ICD9-CM Code QLH39-MI Code Onset Dates Condition S tatus SNOMED Code Problem Fatty liver K76.0 Active 15390406 7 Problem Chronic pain G89.29 Active 2644743 1 Problem Abdominal bloating R14.0 Active 1 18131577 Problem Diverticulosis of intestine without bleeding, unspecified intestinal tract location K57.90 Active 36473185 Problem Gastroesophageal reflux disease without esophagitis K21.9 Active 637958572 Problem COPD (chronic obstructive pulmonary disease) wit h chronic bronchitis J44.9 Active 094107717 Problem Bilateral carotid artery disease I77.9 Active 961084439 Problem Chronic bronchitis J42 Active 6 3772040 Problem Claudication of both lower extremities I73.9 Active 605063899 Problem Hyperlipemia E78.5 Active 9259348 4 Problem Non-rheumatic mitral regurgitation I34.0 Active 406388746 Problem Claudication I73.9 Active 0527823 6 Problem Peripheral arterial disease I73.9 Ac tive 532099134 Problem Pacemaker Z95.0 Active 106400947 Problem Chronic obstructive pulmonary disease, unspecified COPD ty pe J44.9 Active 59208211 Problem Tobacco abuse Z72.0 Active 509727 05 Problem Carpal tunnel syndrome on both sides G56.03 Active 24056822524490642 Problem PAD (peripheral artery disease) I73.9 Active 911003859 Problem Benign essential hypertension I10 Active 6890536 Problem CAD (coronary artery disease) I25.10 Active 18420512 Problem Mixed hyperlipidemia E78.2 Active 129166470 Problem Other chronic pain G89.29 Active 8 9610983 Problem Diet-controlled diabetes mellitus E11.9 Active 247329653 Problem Degenerative disc disease, cervical M50.30 Active 60244899 ALLERGIES No Information ENCOUNTERS Encounter Location Date Diagnosis [facility] [address] [id number] [place] [id number] Aug, Carpal tunnel syndrome on both sides G56 .03 ; Sore of lower lip K13.0 ; Benign essential hypertension I10 ; COPD (chronic obstructive pulmonary disease) with chronic bronchitis J44.9 and Hyperlipemia E78.5 [facility] [address] [id number] [place] [address], [place] [id number] May, [facility] [address] [id number] [place] [address], [place] [id number] Mar, [facility] [employer] [place] [address], [place] [id number] Mar, Facet arthritis of cervical region M47.8 12 and Cervical radiculopathy M54.12 [facility] [address] [id number] [place] [address], [place] [id number] February, Degenerative disc disease, cervical M50. 30 ; Facet arthritis of cervical region M47.812 ; Cervical radiculopathy M54.12 and Pacemaker Z95.0 [facility] [address] [id number] [id number] February, [facility] [address] [facility]47975[facility] [id number] Jan, [facility] [address] [facility]ZZ02524[facility] [id number] Sep, Diet-controlled diabetes mellitus E11.9 ; Benign essential hypertension I10 and Tobacco abuse Z72.0 [facility] [employer] [place] [address] AVE [id number] [id number] Jul, Hyperlipemia E78.5 and CAD (coronary art janneth disease) I25.10 [facility] [employer] [place] [address] AVE [id number] [id number] Jun, CAD (coronary artery disease) I25.10 and Hyperlipemia E78.5 [facility] [employer] [place] [address] [id number] [place] [address], [place] [id number] Jun, New onset type 2 diabetes mellitus E11.9 ; S/P CABG (coronary artery bypass graft) Z95.1 ; Benign essential hypertension I10 ; Other chronic pain G89.29 and S/P cardiac pacemaker procedure Z95.[address] [id number] [place] [id number] Jun, [facility] [address] [id number] [id number] May, [address], [place] [id number] May, COPD (chronic obstructive pulmonary dise ase) with chronic bronchitis J44.9 ; Tobacco abuse Z72.0 and Tobacco abuse counseling Z71.[address] [id number], [place] [id number] Apr, CAD (coronary artery disease) I25.[address] [id number] [place] [address], [place] [id number] Mar, Peripheral arterial disease I73.[address] [id number], [place] [id number] February, Chronic pain G89.29 ; Hyperlipemia E78.5 and Benign essential hypertension I10 [address] [id number], [place] [id number] Jan, COPD (chronic obstructive pulmonary dise ase) with chronic bronchitis J44.[address] [id number] [facility] [id number] Jan, [address] [id number] [facility] [place] [id number] Jan, Peripheral arterial disease I73.9 ; Carlo gn essential hypertension I10 ; Bilateral carotid artery disease I77.9 ; Claudication of both lower extremities I73.9 ; Mixed hyperlipidemia E78.2 ; Tobacco use Z72.0 and Non-rheumatic mitral regurgitation I34.0 [facility] [address] [id number] [place] [id number] Jan, RUQ pain R10.11 ; Gastroesophageal reflu x disease without esophagitis K21.9 and Change in stool R19.5 [facility] [address] [id number] [place] [id number] Jan, [facility] [address] [id number] [place] [id number] Jan, Neck pain M54.2 ; Benign essential hyper tension I10 ; COPD (chronic obstructive pulmonary disease) with chronic bronchitis J44.9 and Chronic obstructive pulmonary disease, unspecified COPD type J44.9 [facility] [address] [id number] [place] [id number] Jan, Chronic obstructive pulmonary disease, u nspecified COPD type J44.9 [facility] [address] [id number] [place] [id number] Dec, [facility] [address] [id number] [place] [id number] Dec, [facility] [address] [id number] [place] [id number] Dec, COPD (chronic obstructive pulmonary dise ase) with chronic bronchitis J44.9 [facility] [address] [address] Dec, [facility] [address] [address] Dec, [facility] [address] [id number] [place] [id number] Nov, [facility] [place] [address] [id number] [place] [id number] Nov, Benign essential hypertension I10 and CO PD (chronic obstructive pulmonary disease) with chronic bronchitis J44.9 [facility] [address] [id number] [place] [id number] 15 Nov, 2017 Hyperlipemia E78.5 ; Benign essential hy pertension I10 ; COPD (chronic obstructive pulmonary disease) with chronic bronchitis J44.9 ; Encounter for immunization Z23 ; Gastroesophageal reflux disease without esophagitis K21.9 and Chronic pain G89.[address] [id number] [place] [id number] Oct, COPD (chronic obstructive pulmonary dise ase) with chronic bronchitis J44.9 and Chronic obstructive pulmonary disease, unspecified COPD type J44.[address] [place] [address] [id number] [place] [id number] Oct, COPD (chronic obstructive pulmonary dise ase) with chronic bronchitis J44.9 and Chronic obstructive pulmonary disease, unspecified COPD type J44.[address] [place] [address] [id number] [place] [id number] Oct, COPD (chronic obstructive pulmonary dise ase) with chronic bronchitis J44.9 and Chronic obstructive pulmonary disease, unspecified COPD type J44.[address] [id number] [place] [id number] Oct, Benign essential hypertension I10 and Ne ck pain M54.[address] [id number] [place] [id number] Sep, PAD (peripheral artery disease) I73.9 ; Claudication of both lower extremities I73.9 ; Bilateral carotid artery disease I77.9 ; Benign essential hypertension I10 ; Hyperlipemia E78.5 and Dyspnea on exertion R06.[address] [id number] [place] [id number] Aug, Benign essential hypertension I10 ; Vannessa roesophageal reflux disease without esophagitis K21.9 and Cervical radiculopathy M54.[address] [id number] [place] [id number] Aug, Gastroesophageal reflux disease without esophagitis K21.[address] [id number] [place] [id number] Aug, COPD (chronic obstructive pulmonary dise ase) with chronic bronchitis J44.9 [facility] [address] [address] [id number] [place] [id number] Jul, [address] [id number] [place] [id number] Jul, Benign essential hypertension I10 [facility] [address] [id number] [place] [id number] Jul, [facility] [address] [id number] [place] [id number] Jul, COPD (chronic obstructive pulmonary dise ase) with chronic bronchitis J44.9 [facility] [address] [id number] [place] [id number] Jul, Neck pain M54.2 [facility] [address] [id number] [place] [id number] Jun, Claudication of both lower extremities I 73.9 ; PAD (peripheral artery disease) I73.9 ; Bilateral carotid artery disease I77.9 ; CAD (coronary artery disease) I25.10 ; Tobacco abuse Z72.0 ; Benign essential hypertension I10 ; Hyperlipemia E78.5 and Non-rheumatic mitral valve stenosis I34.2 [facility] [address] [id number] [place] [id number] Jun, Chronic obstructive pulmonary disease, u nspecified COPD type J44.9 [facility] [address] [id number] [place] [id number] May, [facility] [address] [id number] [place] [id number] May, Chronic obstructive pulmonary disease, u nspecified COPD type J44.9 [facility] [address] [id number] [place] [id number] May, Neck pain M54.2 ; Chronic obstructive pu lmonary disease, unspecified COPD type J44.9 and Cervical radiculopathy M54.12 [facility] [address] [id number] [place] [id number] May, [facility] [id number] [place] [id number] Apr, [facility] [address] [id number] [place] [id number] Apr, Gastroesophageal reflux disease without esophagitis K21.[address] [facility] [address] [id number] [place] [id number] Apr, COPD (chronic obstructive pulmonary dise ase) with chronic bronchitis J44.[address] [facility] [address] [id number] [place] [id number] Apr, [facility] [address] [id number] [place] [id number] Apr, [facility] [address] [address] [id number] [place] [id number] Apr, COPD (chronic obstructive pulmonary dise ase) with chronic bronchitis J44.9 ; Benign essential hypertension I10 ; Tobacco abuse counseling Z71.6 and Hyperlipemia E78.[address] [facility] [address] [id number] [place] [id number] February, COPD (chronic obstructive pulmonary dise ase) with chronic bronchitis J44.[address] [facility] [address] [id number] [place] [id number] Jan, [facility] [address] [address] [id number] [place] [id number] Jan, COPD (chronic obstructive pulmonary dise ase) with chronic bronchitis J44.[address] [facility] [address] [id number] [place] [id number] Oct, COPD (chronic obstructive pulmonary dise ase) with chronic bronchitis J44.[address] [facility] [address] [id number] [place] [id number] Oct, Winter itch L29.[address] [facility] [address] [id number] [place] [id number] Oct, COPD (chronic obstructive pulmonary dise ase) with chronic bronchitis J44.9 ; Benign essential hypertension I10 ; Tobacco abuse Z72.0 and Gastroesophageal reflux disease without esophagitis K21.[address] [facility] [address] [id number] [place] [id number] Sep, Benign essential hypertension I[address] [facility] [address] [id number] [place] [id number] Aug, [place] [address] [id number] [place] [id number] Jul, [place] [address] [id number] [facility] [id number] Apr, [place] [address] [id number] [facility] [id number] Apr, Abdominal bloating R14.0 ; Fatty liver K 76.0 ; Diverticulosis of intestine without bleeding, unspecified intestinal tract location K57.90 ; Chronic obstructive pulmonary disease, unspecified COPD type J44.9 and Benign essential hypertension I10 [address] [place] [address] [id number] [facility]ALTH [facility] [id number] Apr, Mild early onset dysthymic disorder, in partial remission, with melancholic features, 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 [place] [place] [address] [id number] [facility]ALTH [facility] [place] [id number] Mar, Abdominal muscle strain, initial encount er S39.011A [place] [address] [id number] [facility] [id number] Jan, Pancreatitis K85.9 ; Abdominal bloating R14.0 ; Chronic bronchitis J42 and Chronic pain G89.[address] [id number] [facility]ALTH [facility]ST [facility] [place] [id number] Nov, [facility] [place] [address] [id number] [facility] [id number] Nov, [facility] [place] [address] [id number] [facility] [id number] Nov, Chronic bronchitis J42 ; Tobacco abuse Z 72.0 and Tobacco abuse counseling Z71.[address] [place] [id number] [place] [id number] Oct, [facility] [place] [address] [id number] [facility] [id number] Oct, Chronic bronchitis J42 ; Tobacco abuse Z 72.0 and Benign essential hypertension I10 [address] [facility]ERKF72040T[place] [id number] Oct, Chronic bronchitis J42 ; Tobacco abuse Z 72.0 ; Tobacco abuse counseling Z71.6 ; Benign essential hypertension I10 and Hyperlipemia E78.5 [place] [address] [place] [id number] [place] [address] Sep, [address] [id number] Jul, 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 and Cough 786.2 [address]07757[place] [id number] February, [address] [id number] February, Status post bilateral carotid endarterec vito V45.89 ; CAD (coronary artery disease) 414.00 ; Benign essential hypertension 401.1 ; Hyperlipemia 272.4 ; Tobacco abuse 305.1 ; Tobacco abuse counseling V65.42 and Chronic bronchitis 491.9 [place] [address] [facility] [place] [address] 14 Jan, 2015 [facility] [address] [facility] [place] [address] Jan, [facility] [address] [facility] [place] [address] Dec, [facility] [address] [facility] [place] [address] Dec, [facility] [address] [facility] [place] [address] Nov, [facility] [address] [facility] [place] [address] Nov, [facility] [address] [facility] [place] [address] Nov, [facility] [address] [facility] [place] [address] Nov, [facility] [address] [facility] [place] [address] Nov, [facility] [address] [facility] [place] [address] Nov, [facility] [address] [facility] [place] [address] Nov, [facility] [address] [facility] [place] [address] Nov, [facility] [address] [facility] [place] [address] Nov, [facility] [address] [facility] [place] [address] Oct, [facility] [address] [facility] [place] [address] Oct, [facility] [address] [facility] [place] [address] Oct, [facility] [address] [facility] [place] [address] Oct, [facility] [address] [facility] [id number] [place] [address] Oct, [facility] [address] [facility] [place] [address] Oct, [facility] [address] [facility] [place] [address] Oct, [facility] [address] [facility] [place] [address] Oct, [facility] [address] [facility] [place] [address] Oct, [facility] [address] [facility] [place] [address] Oct, [facility] [address] [id number] [place] [id number] Oct, [facility] [address] [facility] [place] [address] Oct, [facility] [address] [facility] [place] [address] Sep, [facility] [address] [facility] [place] [address] Sep, [facility] [address] [facility] [place] [address] Aug, [facility] [address] [facility] [place] [address] Aug, [facility] [address] [facility] [place] [address] Aug, [facility] [address] [facility] [place] [address] Aug, [facility] [address] [facility] [place] [address] Jul, [facility] [address] [facility] [place] [address] Jul, [facility] [address] [facility] [place] [address] 08 Jun, 2014 [facility] [address] [facility] [id number] [place] [address] Jun, [facility] [address] [facility] [place] [address] May, [facility] [address] [facility] [place] [address] May, [facility] [address] [facility] [place] [address] May, [facility] [address] [facility] [place] [address] May, [facility] [address] [facility] [place] [address] Jan, [facility] [address] [facility] [place] [address] Jan, [facility] [address] [facility] [place] [address] Nov, [facility] [address] [facility] [place] [address] Nov, [facility] [address] [facility] [place] [address] Nov, [facility] [address] [facility] [place] [address] Nov, [facility] [address] [facility] [place] [address] Nov, [facility] [address] [facility] [place] [address] Nov, [facility] [address] [facility] [place] [address] Nov, [facility] [address] [facility] [place] [address] Nov, [facility] [address] [facility] [place] [address] Nov, [facility] [address] [facility] [place] [address] Nov, [facility] [address] [facility] [place] [address] Oct, [facility] [address] [facility] [place] [address] Oct, [facility] [address] [facility] [place] [address] Oct, [facility] [address] [facility] [place] [address] Oct, [facility] [address] [facility] [place] [address] Sep, [facility] [address] [facility] [place] [address] Sep, [facility] [address] [facility] [place] [address] Aug, [facility] [address] [facility] [place] [address] Aug, [facility] [address] [facility] [place] [address] Aug, [facility] [address] [facility] [place] [address] Aug, [facility] [address] [id number] [place] [address] Aug, [facility] [address] [id number] [place] [address] Aug, [facility] [address] [id number] [place] [address] Aug, [facility] [address] [id number] [place] [address] Aug, [facility] [address] [id number] [place] [address] Jul, [facility] [address] [id number] [place] [address] Jul, [facility] [address] [id number] [place] [address] Jul, [facility] [address] [id number] [place] [address] Jul, [facility] [address] [id number] [place] [address] Jul, [facility] [address] [id number] [place] [address] Jun, [facility] [address] [id number] [place] [address] May, [facility] [address] [id number] [place] [address] Apr, [facility] [id number] [place] [address] February, [facility] [id number] [place] [address] Jan, [facility] [address] [id number] [place] [address] Jan, [facility] [id number] [place] [address] Dec, [facility] [id number] [place] [address] Dec, [facility] [address] [id number] [place] [address] Dec, [facility] [address] [id number] [place] [address] Nov, [facility] [id number] [place] [address] Nov, [facility] [id number] [place] [address] Nov, [facility] [id number] [place] [address] Nov, IMMUNIZATIONS No Known Immunizations SOCIAL HISTORY [...] chronic neck and back pain Medical History DE x's 2 1996 and 2011 Medical History [...] Surgical History coronary angiography Dr Mane thakur [facility]- normal EF, LV function,-minimal RCA blockage <20% 1996 [facility], mild nonspecific bulbar duodenitis 1996 Surgical History carotid endarterectomy, right- [facility] 01/14 015 Surgical History Heart cath with PTCA 2013 Surgical History Colonoscopy- tubular adenoma , hyperplastic polyp- repeat Colonoscopy 12/2016 Surgical History Bypass Surgery- CABG and Pacemaker 06/06 Hospitalization History heart attack 1996 Hospital[facility] History slurred speech, fever[facility] Pancreatitis 12/2015 Hospitalization History CABG 05/2018
--- OUTSIDE RECORDS SUMMARY | 2020-04-06 06:51 | XMS REPORT ---
Author Author Jermaine CAMPOS [facility] Address [address] [place] [address] Care Team Providers Care Biometrician Name Role Phone TIFFANIE CAMPOS Unavailable PROBLEMS Type Condition ICD9-CM Code UZC85-CZ Code Onset Dates Condition S tatus SNOMED Code Problem Fatty liver K76.0 Active 51985337 7 Problem Chronic pain G89.29 Active 0638654 1 Problem Abdominal bloating R14.0 Active 1 76590981 Problem Diverticulosis of intestine without bleeding, unspecified intestinal tract location K57.90 Active 12993913 Problem Gastroesophageal reflux disease without esophagitis K21.9 Active 105937737 Problem COPD (chronic obstructive pulmonary disease) wit h chronic bronchitis J44.9 Active 798421110 Problem Bilateral carotid artery disease I77.9 Active 166386180 Problem Chronic bronchitis J42 Active 6 3924887 Problem Claudication of both lower extremities I73.9 Active 795062275 Problem Hyperlipemia E78.5 Active 6238850 4 Problem Non-rheumatic mitral regurgitation I34.0 Active 483468045 Problem Claudication I73.9 Active 4978968 6 Problem Peripheral arterial disease I73.9 Ac tive 758926932 Problem Pacemaker Z95.0 Active 771792707 Problem Chronic obstructive pulmonary disease, unspecified COPD ty pe J44.9 Active 58111234 Problem Tobacco abuse Z72.0 Active 621549 05 Problem Carpal tunnel syndrome on both sides G56.03 Active [id number] Problem PAD (peripheral artery disease) I73.9 Active 837586813 Problem Benign essential hypertension I10 Active 1811339 Problem CAD (coronary artery disease) I25.10 Active 11357042 Problem Mixed hyperlipidemia E78.2 Active 162750060 Problem Other chronic pain G89.29 Active 8 4143142 Problem Diet-controlled diabetes mellitus E11.9 Active 100083098 Problem Degenerative disc disease, cervical M50.30 Active [id number] ALLERGIES No Information ENCOUNTERS Encounter Location Date Diagnosis [facility] [address] [id number] [id number] Aug, Carpal tunnel syndrome on both sides G56 .03 ; Sore of lower lip K13.0 ; Benign essential hypertension I10 ; COPD (chronic obstructive pulmonary disease) with chronic bronchitis J44.9 and Hyperlipemia E78.5 [facility] [address] [id number] [place] [address], [place] [id number] May, [facility] [place] [id number] [place] [address], [place] [id number] Mar, [facility] [address] [place] [address], [place] [id number] Mar, Facet arthritis of cervical region M47.8 12 and Cervical radiculopathy M54.12 [facility] [address] [id number] [place] [address], [place] [id number] February, Degenerative disc disease, cervical M50. 30 ; Facet arthritis of cervical region M47.812 ; Cervical radiculopathy M54.12 and Pacemaker Z95.0 [facility] [address] [id number] [id number] February, [facility] [address] AVUNIVERSITY OF [facility]IL[facility] [id number] [facility] [id number] Jan, [facility] [address] AVUNIVERSITY OF LOUISVILLE [id number] [facility]LEY [facility] [id number] Sep, Diet-controlled diabetes mellitus E11.9 ; Benign essential hypertension I10 and Tobacco abuse Z72.0 [facility] [place] [address] [place] [address] AVE [id number] [facility] [id number] Jul, Hyperlipemia E78.5 and CAD (coronary art janneth disease) I25.10 [facility] [place] [address] [place] [address] AVE [id number] [id number] Jun, CAD (coronary artery disease) I25.10 and Hyperlipemia E78.5 [facility] [place] [address] [place] [id number] [place] [address], [place] [id number] Jun, New onset type 2 diabetes mellitus E11.9 ; S/P CABG (coronary artery bypass graft) Z95.1 ; Benign essential hypertension I10 ; Other chronic pain G89.29 and S/P cardiac pacemaker procedure Z95.[address] [id number] [place] [id number] Jun, [facility] [address] [id number] [facility]LEY [facility] [id number] May, [address], [place] [id number] May, COPD (chronic obstructive pulmonary dise ase) with chronic bronchitis J44.9 ; Tobacco abuse Z72.0 and Tobacco abuse counseling Z71.[address] [id number] [facility] [id number] Apr, CAD (coronary artery disease) I25.[address] [id number] [place] [address], [place] [id number] Mar, Peripheral arterial disease I73.[address] [id number] VALLEY [facility], [place] [id number] February, Chronic pain G89.29 ; Hyperlipemia E78.5 and Benign essential hypertension I10 [address] [id number] VALLEY [facility]PITAL[place] [id number] Jan, COPD (chronic obstructive pulmonary dise ase) with chronic bronchitis J44.[address] [id number] [facility]PH [facility] [place] [id number] Jan, [address] [id number] [facility]PH [facility] [place] [id number] Jan, Peripheral arterial disease I73.9 ; Carlo gn essential hypertension I10 ; Bilateral carotid artery disease I77.9 ; Claudication of both lower extremities I73.9 ; Mixed hyperlipidemia E78.2 ; Tobacco use Z72.0 and Non-rheumatic mitral regurgitation I34.0 [facility] [address] [id number] [place] [id number] Jan, RUQ pain R10.11 ; Gastroesophageal reflu x disease without esophagitis K21.9 and Change in stool R19.5 [facility] [address] [id number] [place] [id number] Jan, [facility] [address] [address] [id number] [place] [id number] Jan, Neck pain M54.2 ; Benign essential hyper tension I10 ; COPD (chronic obstructive pulmonary disease) with chronic bronchitis J44.9 and Chronic obstructive pulmonary disease, unspecified COPD type J44.9 [facility] [address] [id number] [place] [id number] Jan, Chronic obstructive pulmonary disease, u nspecified COPD type J44.9 [facility] [address] [id number] [place] [id number] Dec, [facility] [place] AVUNIVERSITY OF L[facility] [id number] [place] [id number] Dec, [facility] [address] [id number] [place] [id number] Dec, COPD (chronic obstructive pulmonary dise ase) with chronic bronchitis J44.9 [facility] [address] [address] Dec, [facility] [address] [address] Dec, [facility] [address] [id number] [place] [id number] Nov, [facility] [place] [address] [id number] [place] [id number] Nov, Benign essential hypertension I10 and CO PD (chronic obstructive pulmonary disease) with chronic bronchitis J44.9 [facility] [address] [id number] [place] [id number] 15 Nov, 2017 Hyperlipemia E78.5 ; Benign essential hy pertension I10 ; COPD (chronic obstructive pulmonary disease) with chronic bronchitis J44.9 ; Encounter for immunization Z23 ; Gastroesophageal reflux disease without esophagitis K21.9 and Chronic pain G89.[address] [id number] [place] [id number] Oct, COPD (chronic obstructive pulmonary dise ase) with chronic bronchitis J44.9 and Chronic obstructive pulmonary disease, unspecified COPD type J44.[address] [place] [id number] [place] [id number] Oct, COPD (chronic obstructive pulmonary dise ase) with chronic bronchitis J44.9 and Chronic obstructive pulmonary disease, unspecified COPD type J44.[address] [id number] [place] [address] Oct, COPD (chronic obstructive pulmonary dise ase) with chronic bronchitis J44.9 and Chronic obstructive pulmonary disease, unspecified COPD type J44.[address] [id number] [place] [id number] Oct, Benign essential hypertension I10 and Ne ck pain M54.[address] [id number] [place] [id number] Sep, PAD (peripheral artery disease) I73.9 ; Claudication of both lower extremities I73.9 ; Bilateral carotid artery disease I77.9 ; Benign essential hypertension I10 ; Hyperlipemia E78.5 and Dyspnea on exertion R06.[address] [id number] [place] [id number] Aug, Benign essential hypertension I10 ; Vannessa roesophageal reflux disease without esophagitis K21.9 and Cervical radiculopathy M54.[address] [id number] [place] [id number] Aug, Gastroesophageal reflux disease without esophagitis K21.[address] [id number] [place] [id number] Aug, COPD (chronic obstructive pulmonary dise ase) with chronic bronchitis J44.9 [facility] [address] [address] [id number] [place] [id number] Jul, [address] [id number] [place] [id number] Jul, Benign essential hypertension I10 [facility] [address] [id number] [place] [id number] Jul, [facility] [address] [address] [id number] [place] [id number] Jul, COPD (chronic obstructive pulmonary dise ase) with chronic bronchitis J44.9 [facility] [address] [id number] [place] [id number] Jul, Neck pain M54.2 [facility] [address] [address] [id number] [place] [id number] Jun, Claudication of both lower extremities I 73.9 ; PAD (peripheral artery disease) I73.9 ; Bilateral carotid artery disease I77.9 ; CAD (coronary artery disease) I25.10 ; Tobacco abuse Z72.0 ; Benign essential hypertension I10 ; Hyperlipemia E78.5 and Non-rheumatic mitral valve stenosis I34.2 [facility] [address] [id number] [place] [id number] Jun, Chronic obstructive pulmonary disease, u nspecified COPD type J44.9 [facility] [address] [address] [id number] [place] [id number] May, [facility] [address] [id number] [place] [id number] May, Chronic obstructive pulmonary disease, u nspecified COPD type J44.9 [facility] [address] [id number] [place] [id number] May, Neck pain M54.2 ; Chronic obstructive pu lmonary disease, unspecified COPD type J44.9 and Cervical radiculopathy M54.12 [facility] [address] [address] [id number] [place] [id number] May, [facility] [address] [id number] [place] [id number] Apr, [facility] [address] [id number] [place] [id number] Apr, Gastroesophageal reflux disease without esophagitis K21.[address] [facility] [address] [id number] [place] [id number] Apr, COPD (chronic obstructive pulmonary dise ase) with chronic bronchitis J44.[address] [facility] [address] [id number] [place] [id number] Apr, [facility] [address] [address] [id number] [place] [id number] Apr, [facility] [address] [address] [id number] [place] [id number] Apr, COPD (chronic obstructive pulmonary dise ase) with chronic bronchitis J44.9 ; Benign essential hypertension I10 ; Tobacco abuse counseling Z71.6 and Hyperlipemia E78.[address] [facility] [address] [id number] [place] [id number] February, COPD (chronic obstructive pulmonary dise ase) with chronic bronchitis J44.[address] [facility] [address] [id number] [place] [id number] Jan, [facility] [address] [id number] [place] [id number] Jan, COPD (chronic obstructive pulmonary dise ase) with chronic bronchitis J44.[address] [facility] [address] [id number] [place] [id number] Oct, COPD (chronic obstructive pulmonary dise ase) with chronic bronchitis J44.[address] [facility] [address] [id number] [place] [id number] Oct, Winter itch L29.[address] [facility] [address] [id number] [place] [id number] Oct, COPD (chronic obstructive pulmonary dise ase) with chronic bronchitis J44.9 ; Benign essential hypertension I10 ; Tobacco abuse Z72.0 and Gastroesophageal reflux disease without esophagitis K21.[address] [facility] [address] [id number] [place] [id number] Sep, Benign essential hypertension I[address] [facility] [address] [id number] [place] [id number] Aug, [address] [place] [id number] [place] [id number] Jul, [address] [place] [id number] [facility] [place] [id number] Apr, [address] [place] [address] [id number] [facility]PH [facility] [place] [id number] Apr, Abdominal bloating R14.0 ; Fatty liver K 76.0 ; Diverticulosis of intestine without bleeding, unspecified intestinal tract location K57.90 ; Chronic obstructive pulmonary disease, unspecified COPD type J44.9 and Benign essential hypertension I10 [address] [id number] JOSEPH [facility] [place] [id number] Apr, Mild early onset dysthymic disorder, in partial remission, with melancholic features, 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 [place] [id number] [facility]SEPH [facility] [place] [id number] Mar, Abdominal muscle strain, initial encount er S39.011A [place] [address] [id number] [facility] [id number] Jan, Pancreatitis K85.9 ; Abdominal bloating R14.0 ; Chronic bronchitis J42 and Chronic pain G89.[address] [id number] JOSEPH [facility] [place] [id number] Nov, [facility] [address] [address] [id number] [facility] [id number] Nov, [facility] [address] [address] [id number] [facility] [id number] Nov, Chronic bronchitis J42 ; Tobacco abuse Z 72.0 and Tobacco abuse counseling Z71.[address] [id number] [place] [id number] Oct, [facility] [address] [address] [id number] [facility]PH [facility] [id number] Oct, Chronic bronchitis J42 ; Tobacco abuse Z 72.0 and Benign essential hypertension I10 [address] AVUNIVERSITY OF LOUISVILLE [id number][place] [id number] Oct, Chronic bronchitis J42 ; Tobacco abuse Z 72.0 ; Tobacco abuse counseling Z71.6 ; Benign essential hypertension I10 and Hyperlipemia E78.5 [place] [address] [address] [id number] [place] [address] Sep, [address] [id number] Jul, [facility] [address] [address] Jul, Essential (primary) hypertension I10 [address] [address] Jul, [address] [id number] Jul, [address] [id number] Jun, Benign essential hypertension 401.1 ; Ge neralized edema 782.3 ; Chronic pain 338.29 and Hyperlipemia 272.[address]07[place] [id number] May, Upper respiratory infection 465.9 and Co ugh 786.2 [place] [id number] [place] [id number] Mar, Upper respiratory infection 465.9 ; 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 and Cough 786.[address]07757[place] [id number] February, [address] [id number] February, Status post bilateral carotid endarterec vito V45.89 ; CAD (coronary artery disease) 414.00 ; Benign essential hypertension 401.1 ; Hyperlipemia 272.4 ; Tobacco abuse 305.1 ; Tobacco abuse counseling V65.42 and Chronic bronchitis 491.9 [place] [address] [facility] [place] [address] 14 Jan, 2015 [facility] [address] [id number] [place] [address] Jan, [facility] [address] [id number] [place] [address] Dec, [facility] [address] [id number] [place] [address] Dec, [facility] [address] [id number] [place] [address] Nov, [facility] [address] [id number] [place] [address] Nov, [facility] [address] [id number] [place] [address] Nov, [facility] [address] [id number] [place] [address] Nov, [facility] [address] [id number] [place] [address] Nov, [facility] [address] [id number] [place] [address] Nov, [facility] [address] [id number] [place] [address] Nov, [facility] [address] [facility] [place] [address] Nov, [facility] [address] [id number] [place] [address] Nov, [facility] [address] [id number] [place] [address] Oct, [facility] [address] [id number] [place] [address] Oct, [facility] [address] [id number] [place] [address] Oct, [facility] [address] [facility] [place] [address] Oct, [facility] [address] [facility] [id number] [place] [address] Oct, [facility] [address] [id number] [place] [address] Oct, [facility] [address] [id number] [place] [address] Oct, [facility] [address] [id number] [place] [address] Oct, [facility] [address] [id number] [place] [address] Oct, [facility] [address] [id number] [place] [address] Oct, [facility] [address] [id number] [place] [id number] Oct, [facility] [address] [id number] [place] [address] Oct, [facility] [address] [id number] [place] [address] Sep, [facility] [address] [id number] [place] [address] Sep, [facility] [address] [id number] [place] [address] Aug, [facility] [address] [id number] [place] [address] Aug, [facility] [address] [id number] [place] [address] Aug, [facility] [address] [id number] [place] [address] Aug, [facility] [address] [id number] [place] [address] Jul, [facility] [address] [id number] [place] [address] Jul, [facility] [address] [id number] [place] [address] 08 Jun, 2014 [facility] [address] [facility] [id number] [place] [address] Jun, [facility] [address] [id number] [place] [address] May, [facility] [address] [id number] [place] [address] May, [facility] [address] [id number] [place] [address] May, [facility] [address] [id number] [place] [address] May, [facility] [address] [id number] [place] [address] Jan, [facility] [address] [id number] [place] [address] Jan, [facility] [address] [id number] [place] [address] Nov, [facility] [address] [id number] [place] [address] Nov, [facility] [address] [id number] [place] [address] Nov, [facility] [address] [id number] [place] [address] Nov, [facility] [address] [id number] [place] [address] Nov, [facility] [address] [id number] [place] [address] Nov, [facility] [address] [id number] [place] [address] Nov, [facility] [address] [id number] [place] [address] Nov, [facility] [address] [id number] [place] [address] Nov, [facility] [address] [id number] [place] [address] Nov, [facility] [address] [id number] [place] [address] Oct, [facility] [address] [id number] [place] [address] Oct, [facility] [address] [id number] [place] [address] Oct, [facility] [address] [id number] [place] [address] Oct, [facility] [address] [id number] [place] [address] Sep, [facility] [address] [id number] [place] [address] Sep, [facility] [address] [id number] [place] [address] Aug, [facility] [address] [id number] [place] [address] Aug, [facility] [address] [id number] [place] [address] Aug, [facility] [address] [id number] [place] [address] Aug, [facility] [address] [id number] [place] [address] Aug, [facility] [address] [id number] [place] [address] Aug, [facility] [address] [id number] [place] [address] Aug, [facility] [address] [id number] [place] [address] Aug, [facility] [address] [id number] [place] [address] Jul, [facility] [address] [id number] [place] [address] Jul, [facility] [address] [id number] [place] [address] Jul, [facility] [address] [id number] [place] [address] Jul, [facility] [address] [id number] [place] [address] Jul, [facility] [address] [id number] [place] [address] Jun, [facility] [address] [id number] [place] [address] May, [facility] [address] [id number] [place] [address] Apr, [facility] [id number] [place] [address] February, [facility] [id number] [place] [address] Jan, [facility] [address] [id number] [place] [address] Jan, [facility] [id number] [place] [address] Dec, [facility] [id number] [place] [address] Dec, [facility] [id number] [place] [address] Dec, [facility] [address] [id number] [place] [address] Nov, [facility] [id number] [place] [address] Nov, [facility] [id number] [place] [address] Nov, [facility] [id number] [place] [address] Nov, IMMUNIZATIONS No Known Immunizations SOCIAL HISTORY [...] chronic neck and back pain Medical History VA x's 2 1996 and 2011 Medical History [...] Surgical History coronary angiography Dr Mane thakur [facility]- normal EF, LV function,-minimal RCA blockage <20% 1996 [facility], mild nonspecific bulbar duodenitis 1996 Surgical History carotid endarterectomy, right- [facility] 01/14 015 Surgical History Heart cath with PTCA 2013 Surgical History Colonoscopy- tubular adenoma , hyperplastic polyp- repeat Colonoscopy 12/2016 Surgical History Bypass Surgery- CABG and Pacemaker 06/06 Hospitalization History heart attack 1996 Hospitalization History slurred speech, fever, [facility] 2015 Hospitalization History Pancreatitis 12/2015 Hospitalization History CABG 05/2018
--- OUTSIDE RECORDS SUMMARY | 2020-04-06 06:52 | XMS REPORT ---
Author Author Jermaine CAMPOS [facility] Address [address] [place] [address] Care Team Providers Care Elevator Supervisor Name Role Phone TIFFANIE CAMPOS Unavailable PROBLEMS Type Condition ICD9-CM Code KXM59-WA Code Onset Dates Condition S tatus SNOMED Code Problem Chronic pain G89.29 Active 5570370 1 Problem CAD (coronary artery disease) I25.10 Active 37665044 Problem Diverticulosis of intestine without bleeding, unspecified intestinal tract location K57.90 Active 09414579 Problem Fatty liver K76.0 Active 52076803 7 Problem COPD (chronic obstructive pulmonary disease) wit h chronic bronchitis J44.9 Active 320607798 Problem Abdominal bloating R14.0 Active 1 03227410 Problem Bilateral carotid artery disease I77.9 Active 991124806 Problem Hyperlipemia E78.5 Active 0200718 4 Problem Gastroesophageal reflux disease without esophagitis K21.9 Active 691016398 Problem Chronic obstructive pulmonary disease, unspecified COPD ty pe J44.9 Active 32506400 Problem Non-rheumatic mitral regurgitation I34.0 Active 646000317 Problem Claudication I73.9 Active 1935217 6 Problem Degenerative disc disease, cervical M50.30 Active 47061603 Problem PAD (peripheral artery disease) I73.9 Active 625176468 Problem Benign essential hypertension I10 Active 6704389 Problem Pacemaker Z95.0 Active 297595194 Problem Claudication of both lower extremities I73.9 Active 846253283 Problem Chronic bronchitis J42 Active 6 7744700 Problem Tobacco abuse Z72.0 Active 009335 05 Problem Peripheral arterial disease I73.9 Ac tive 548412615 Problem Mixed hyperlipidemia E78.2 Active 737461652 Problem Other chronic pain G89.29 Active 8 3280981 Problem Diet-controlled diabetes mellitus E11.9 Active [id number] ALLERGIES No Information ENCOUNTERS Encounter Location Date Diagnosis [facility] [address] [facility] [id number] [id number] Jul, [facility] [address] [place] [address] AVE [id number] [place] [id number] May, [facility] [address] [place] [address] AVE [id number] [place] [id number] Mar, [facility] [address] [place] [address] A[address] [id number] [place] [id number] Mar, Facet arthritis of cervical region M47.8 12 and Cervical radiculopathy M54.12 [facility] [place] [address] AVE [id number] [place] [id number] February, Degenerative disc disease, cervical M50. 30 ; Facet arthritis of cervical region M47.812 ; Cervical radiculopathy M54.12 and Pacemaker Z95.0 [facility] [place] [address] AVE [id number] [place] [id number] February, [facility] [place] [address] A[place] [id number] [place], [place] [id number] Jan, [facility] [id number] [place] [id number] Sep, Diet-controlled diabetes mellitus E11.9 ; Benign essential hypertension I10 and Tobacco abuse Z72.0 [facility] [place] [address] AVE [id number] [place] [id number] Jul, Hyperlipemia E78.5 and CAD (coronary art janneth disease) I25.10 [facility] [place] [address] AVE [id number] [place] [id number] Jun, CAD (coronary artery disease) I25.10 and Hyperlipemia E78.5 [facility] [place] [address] AVE [id number] [place] [id number] Jun, New onset type 2 diabetes mellitus E11.9 ; S/P CABG (coronary artery bypass graft) Z95.1 ; Benign essential hypertension I10 ; Other chronic pain G89.29 and S/P cardiac pacemaker procedure Z95.0 [facility] [address] [id number] [place] [id number] Jun, [facility] [address] [place] [address] AVE [id number] [place], [place] [id number] May, [facility] [id number] [place], [place] [id number] May, COPD (chronic obstructive pulmonary dise ase) with chronic bronchitis J44.9 ; Tobacco abuse Z72.0 and Tobacco abuse counseling Z71.6 [facility] [address] [place] [address] A[place] [id number] [place] [id number] Apr, CAD (coronary artery disease) I25.10 [facility] [place] [address] AVE [id number] [place], [place] [id number] Mar, Peripheral arterial disease I73.9 [facility] [address] [id number] [place], [place] [id number] February, Chronic pain G89.29 ; Hyperlipemia E78.5 and Benign essential hypertension I10 [facility] [id number] [place], [place] [id number] Jan, COPD (chronic obstructive pulmonary dise ase) with chronic bronchitis J44.9 [facility] [address] [id number] [place], [place] [id number] Jan, [facility] [address] [id number] [place] [id number] Jan, Peripheral arterial disease I73.9 ; Carlo gn essential hypertension I10 ; Bilateral carotid artery disease I77.9 ; Claudication of both lower extremities I73.9 ; Mixed hyperlipidemia E78.2 ; Tobacco use Z72.0 and Non- rheumatic mitral regurgitation I34.0 [facility] [place] [address] A[place] [id number] [place], [place] [id number] Jan, RUQ pain R10.11 ; Gastroesophageal reflu x disease without esophagitis K21.9 and Change in stool R19.5 [facility] [place] [address] A[place] [id number] [place], [place] [id number] Jan, [facility] [address] [id number] [place] [id number] Jan, Neck pain M54.2 ; Benign essential hyper tension I10 ; COPD (chronic obstructive pulmonary disease) with chronic bronchitis J44.9 and Chronic obstructive pulmonary disease, unspecified COPD type J44.9 [facility] [address] [id number] [place] [id number] Jan, Chronic obstructive pulmonary disease, u nspecified COPD type J44.9 [facility] [address] [id number] [place] [id number] Dec, [facility] [address] [id number] [place], [place] 660586170 Dec, [facility] [address] [id number] [place], [place] [id number] Dec, COPD (chronic obstructive pulmonary dise ase) with chronic bronchitis J44.9 [facility] [address] [facility] [id number] [address] [place] [address] Dec, [facility] [address] [facility] [id number] [address] [place] [address] Dec, [facility] [address] [id number] [place], [place] [id number] Nov, [facility] [address] [id number] [place], [place] [id number] Nov, Benign essential hypertension I10 and CO PD (chronic obstructive pulmonary disease) with chronic bronchitis J44.9 [facility] [address] [id number] [place] 796136552 Nov, Hyperlipemia E78.5 ; Benign essential hy pertension I10 ; COPD (chronic obstructive pulmonary disease) with chronic bronchitis J44.9 ; Encounter for immunization Z23 ; Gastroesophageal reflux disease without esophagitis K21.9 and Chronic pain G89.29 [facility] [address] [id number] [place], [place] [id number] Oct, COPD (chronic obstructive pulmonary dise ase) with chronic bronchitis J44.9 and Chronic obstructive pulmonary disease, unspecified COPD type J44.9 [facility] [address] [id number] [place] [id number] Oct, COPD (chronic obstructive pulmonary dise ase) with chronic bronchitis J44.9 and Chronic obstructive pulmonary disease, unspecified COPD type J44.9 [facility] [address] [id number] [place], [place] 656109569 Oct, COPD (chronic obstructive pulmonary dise ase) with chronic bronchitis J44.9 and Chronic obstructive pulmonary disease, unspecified COPD type J44.9 [facility] [address] [id number] [place] [id number] Oct, Benign essential hypertension I10 and Ne ck pain M54.2 [facility] [address] [id number] [place], [place] [id number] Sep, PAD (peripheral artery disease) I73.9 ; Claudication of both lower extremities I73.9 ; Bilateral carotid artery disease I77.9 ; Benign essential hypertension I10 ; Hyperlipemia E78.5 and Dyspnea on exertion R06.09 [facility] [address] [id number] [place], [place] [id number] Aug, Benign essential hypertension I10 ; Vannessa roesophageal reflux disease without esophagitis K21.9 and Cervical radiculopathy M54.12 [facility] [address] [id number] [place] [id number] Aug, Gastroesophageal reflux disease without esophagitis K21.9 [facility] [address] [id number] [place], [place] [id number] Aug, COPD (chronic obstructive pulmonary dise ase) with chronic bronchitis J44.9 [facility] [address] [id number] [place], [place] [id number] Jul, [facility] [address] [id number] [place], [place] [id number] Jul, Benign essential hypertension I10 [facility] [address] [id number] [place] [id number] Jul, [facility] [address] [id number] [place] [id number] Jul, COPD (chronic obstructive pulmonary dise ase) with chronic bronchitis J44.9 [facility] [address] [id number] [place] [id number] Jul, Neck pain M54.2 [facility] [address] [id number] [place] [id number] Jun, Claudication of both lower extremities I 73.9 ; PAD (peripheral artery disease) I73.9 ; Bilateral carotid artery disease I77.9 ; CAD (coronary artery disease) I25.10 ; Tobacco abuse Z72.0 ; Benign essential hypertension I10 ; Hyperlipemia E78.5 and Non-rheumatic mitral valve stenosis I34.[address] [facility] [address] [id number] [place] [id number] Jun, Chronic obstructive pulmonary disease, u nspecified COPD type J44.9 [facility] [address] [id number] [place], [place] [id number] May, [facility] [address] [id number] [place], [place] [id number] May, Chronic obstructive pulmonary disease, u nspecified COPD type J44.9 [facility] [address] [id number] [place], [place] [id number] May, Neck pain M54.2 ; Chronic obstructive pu lmonary disease, unspecified COPD type J44.9 and Cervical radiculopathy M54.12 [facility] [address] [id number] [place] [id number] May, [facility] [address] [id number] [place] [id number] Apr, [facility] [address] [id number] [place], [place] [id number] Apr, Gastroesophageal reflux disease without esophagitis K21.[address] [facility] [address] [id number] [place] [id number] Apr, COPD (chronic obstructive pulmonary dise ase) with chronic bronchitis J44.[address] [facility] [address] [id number] [place] [id number] Apr, [facility] [address] [id number] [place] [id number] Apr, [facility] [address] [id number] [place] 979155380 Apr, COPD (chronic obstructive pulmonary dise ase) with chronic bronchitis J44.9 ; Benign essential hypertension I10 ; Tobacco abuse counseling Z71.6 and Hyperlipemia E78.[address] [facility] [address] [id number] [place], [place] [id number] February, COPD (chronic obstructive pulmonary dise ase) with chronic bronchitis J44.[address] [facility] [address] [id number] [place], [place] [id number] Jan, [facility] [address] [id number] [place] [id number] Jan, COPD (chronic obstructive pulmonary dise ase) with chronic bronchitis J44.[address] [facility] [address] [id number] [place], [place] [id number] Oct, COPD (chronic obstructive pulmonary dise ase) with chronic bronchitis J44.[address] [facility] [address] [id number] [place], [place] 897335981 Oct, Winter itch L29.[address] [facility] [address] [id number] [place], [place] [id number] Oct, COPD (chronic obstructive pulmonary dise ase) with chronic bronchitis J44.9 ; Benign essential hypertension I10 ; Tobacco abuse Z72.0 and Gastroesophageal reflux disease without esophagitis K21.[address] [facility] [address] [id number] [place] [id number] Sep, Benign essential hypertension I10 [facility] [address] [id number] [place] [id number] Aug, [facility] Sanchez[address] [place] [address] A[place] [id number] [place], [place] [id number] Jul, [facility] [address] [place] [address] A[place] [id number] [place], [place] [id number] Apr, [facility] [address] [place] [address] A[place] [id number] [place], [place] [id number] Apr, Abdominal bloating R14.0 ; Fatty liver K 76.0 ; Diverticulosis of intestine without bleeding, unspecified intestinal tract location K57.90 ; Chronic obstructive pulmonary disease, unspecified COPD type J44.9 and Benign essential hypertension I10 [facility] Sanchez[address] [place] [address] A[place] [id number] [place], [place] [id number] Apr, Mild early onset dysthymic disorder, in partial remission, with melancholic features, 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 [facility] [address] [place] [address] A[place] [id number] [place], [place] [id number] Mar, Abdominal muscle strain, initial encount er S39.011A [facility] LabW[facility] [address] [place] [address] A[place] [id number] [place], [place] [id number] Jan, Pancreatitis K85.9 ; Abdominal bloating R14.0 ; Chronic bronchitis J42 and Chronic pain G89.29 [facility] [place] [address] [place] [id number] [place], [place] [id number] Nov, [facility] [place] [address] A[place] [id number] [place] [id number] Nov, [facility] [address]W[facility] [id number] [place], [place] [id number] Nov, Chronic bronchitis J42 ; Tobacco abuse Z 72.0 and Tobacco abuse counseling Z71.6 [facility] [id number] [place], [place] [id number] Oct, [facility] [address] [place] [address] A[place] [id number] [place], [place] [id number] Oct, Chronic bronchitis J42 ; Tobacco abuse Z 72.0 and Benign essential hypertension I10 [facility] [address] [id number] [place], [place] 004851269 Oct, Chronic bronchitis J42 ; Tobacco abuse Z 72.0 ; Tobacco abuse counseling Z71.6 ; Benign essential hypertension I10 and Hyperlipemia E78.5 [facility] [address] [facility] [id number] [address] [place] [address] Sep, [place] [address] [id number] [place] [id number] Jul, [facility] [address] [facility] [id number] [address] [place] [id number] Jul, Essential (primary) hyperten aida I10 [facility] [address] [facility] [id number] [address] [place] [id number] Jul, [address] [id number] [place], [place] [id number] Jul, [address] [id number] [place], [place] [id number] Jun, Benign essential hypertension 401.1 ; Ge neralized edema 782.3 ; Chronic pain 338.29 and Hyperlipemia 272.[address] [id number] [place], [place] [id number] May, Upper respiratory infection 465.9 and Co ugh 786.[address] [id number] [place], [place] [id number] Mar, Upper respiratory infection 465.9 ; 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 and Cough 786.[address] [id number] [place], [place] [id number] February, [address] [id number] [place], [place] [id number] February, Status post bilateral carotid endarterec vito V45.89 ; CAD (coronary artery disease) 414.00 ; Benign essential hypertension 401.1 ; Hyperlipemia 272.4 ; Tobacco abuse 305.1 ; Tobacco abuse counseling V65.42 and Chronic bronchitis 491.9 [facility] [address] [id number] [address] [place] [id number] 14 Jan, 2015 [facility] [address] [id number] [address] [place] [phone] Jan, [facility] [address] [id number] [address] [place] [address] Dec, [facility] [address] [id number] [address] [place] [id number] Dec, [facility] [address] [id number] [address] [place] [address] Nov, [facility] [address] [id number] [address] [place] [phone] Nov, [facility] [address] [id number] [address] [place] [phone] Nov, [facility] [address] [id number] [address] [place] [phone] Nov, [facility] [address] [id number] [address] [place] [phone] Nov, [facility] [address] [id number] [address] [place] [phone] Nov, [facility] [address] [id number] [address] [place] [address] Nov, [facility] [address] [id number] [address] [place] [id number] Nov, [facility] [address] [id number] [address] [place] [id number] Nov, [facility] [address] [id number] [address] [place] [id number] Oct, [facility] [address] [id number] [address] [place] [phone] Oct, [facility] [address] [id number] [address] [place] [address], [place] [address] Oct, [facility] [address] [id number] [address] [place] [address], [place] [address] Oct, [facility] [address] [id number] [address] [place] [address], [place] [address] Oct, [facility] [address] [id number] [address] [place] [address], [place] [address] Oct, [facility] [address] [id number] [address] [place] [address], [place] [address] Oct, [facility] [address] [id number] [address] [place] [address], [place] [address] Oct, [facility] [address] [id number] [address] [place] [address], [place] [address] Oct, [facility] [address] [id number] [address] [place] [address], [place] [address] Oct, [facility] [address] [id number] [place] [id number] Oct, [facility] [address] [id number] [address] [place] [phone] Oct, [facility] [address] [id number] [address] [place] [address], [place] [address] Sep, [facility] [address] [id number] [address] [place] [id number] Sep, [facility] [address] [id number] [address] [place] [address], [place] [address] Aug, [facility] [address] [id number] [address] [place] [address], [place] [address] Aug, [facility] [address] [id number] [address] [place] [address], [place] [address] Aug, [facility] [address] [id number] [address] [place] [address], [place] [address] Aug, [facility] [address] [id number] [address] [place] [address], [place] [address] Jul, [facility] [address] [id number] [address] [place] [address], [place] [address] Jul, [facility] [address] [id number] [address] [place] [address], [place] [address] Jun, [facility] [address] [id number] [address] [place] [address], [place] [address] Jun, [facility] [address] [id number] [address] [place] [address], [place] [address] May, [facility] [address] [id number] [address] [place] [address], [place] [address] May, [facility] [address] [id number] [address] [place] [address], [place] [address] May, [facility] [address] [id number] [address] [place] [address], [place] [address] May, [facility] [address] [id number] [address] [place] [address], [place] [address] Jan, [facility] [address] [id number] [address] [place] [address], [place] [address] Jan, [facility] [address] [id number] [address] [place] [address], [place] [address] Nov, [facility] [address] [id number] [address] [place] [address], [place] [address] Nov, [facility] [address] [id number] [address] [place] [address], [place] [address] Nov, [facility] [address] [id number] [address] [place] [address], [place] [address] Nov, [facility] [address] [id number] [address] [place] [address], [place] [address] Nov, [facility] [address] [id number] [address] [place] [address], [place] [address] Nov, [facility] [address] [id number] [address] [place] [address], [place] [address] Nov, [facility] [address] [id number] [address] [place] [address], [place] [address] Nov, [facility] [address] [id number] [address] [place] [address], [place] [address] Nov, [facility] [address] [id number] [address] [place] [address], [place] [address] Nov, [facility] [address] [id number] [address] [place] [address], [place] [address] Oct, [facility] [address] [id number] [address] [place] [address], [place] [address] Oct, [facility] [address] [id number] [address] [place] [address], [place] [address] Oct, [facility] [address] [id number] [address] [place] [address], [place] [address] Oct, [facility] [address] [id number] [address] [place] [address], [place] [address] Sep, [facility] [address] [id number] [address] [place] [address], [place] [address] Sep, [facility] [address] [id number] [address] [place] [address], [place] [address] Aug, [facility] [address] [id number] [address] [place] [address], [place] [address] Aug, [facility] [address] [id number] [address] [place] [address], [place] [address] Aug, [facility] [address] [id number] [address] [place] [address], [place] [address] Aug, [facility] [address] [id number] [address] [place] [address], [place] [address] Aug, [facility] [address] [id number] [address] [place] [address], [place] [address] Aug, [facility] [address] [id number] [address] [place] [address], [place] [address] Aug, [facility] [address] [id number] [address] [place] [address], [place] [address] Aug, [facility] [address] [id number] [address] [place] [address], [place] [address] Jul, [facility] [address] [address] [id number] [address] [place] [address], [place] [id number] Jul, [facility] [address] [id number] [address] [place] [address], [place] [phone] Jul, [facility] [address] [id number] [address] [place] [address], [place] [id number] Jul, [facility] [address] [id number] [address] [place] [address], [place] [id number] Jul, [facility] [address] [id number] [address] [place] [address], [place] [id number] Jun, [facility] [address] [id number] [address] [place] [address], [place] [address] May, [facility] [address] [id number] [address] [place] [address], [place] [address] Apr, [facility] [address] [id number] [address] [place] [address], [place] [address] February, [facility] [address] [id number] [address] [place] [address], [place] [address] Jan, [facility] [address] [id number] [address] [place] [address], [place] [id number] Jan, [facility] [address] [id number] [address] [place] [address], [place] [address] Dec, [facility] [address] [facility] [id number] [address] [place] [phone] Dec, [facility] [address] [facility] [id number] [address] [place] [id number] Dec, [facility] [address] [facility] [id number] [address] [place] [phone] Nov, [facility] [address] [facility] [id number] [address] [place] [phone] Nov, [facility] [address] [facility] [id number] [address] [place] [id number] Nov, [facility] [address] [facility] [id number] [address] [place] [id number] Nov, IMMUNIZATIONS No Known Immunizations SOCIAL HISTORY Never Assessed REASON FOR VISIT PLAN OF CARE VITAL SIGNS Blood pressure systolic 140 mmHg 2014-10-26 Blood pressure diastolic 82 mmHg 2014-10-26 MEDICATIONS Unknown Medications RESULTS No Results PROCEDURES Procedure Date Ordered Result Body Site BLOOD PRESSURE, MEASURED Oct 26, 2014 COMPLETE CBC W/AUTO DIFF WBC Oct 26, 2014 LIPID PANEL Oct 26, 2014 COMPREHEN METABOLIC PANEL Oct 26, 2014 VENIPUNCT, ROUTINE* Oct 26, 2014 INSTRUCTIONS MEDICATIONS ADMINISTERED No Known Medications MEDICAL (GENERAL) HISTORY Type Description Date Medical History GERD Medical History hypertension Medical History 1999 mild stroke syndrome- C T head 02/2015 showed chronic ischemic changes Medical History chronic neck and back pain Medical History AR x's 2 1996 and 2011 Medical History [...] dx 2018 Medical History CABG and Pacemaker 05/2018 ([place]) Medical History Mild carpal tunnel syndrome bilat per [place] T 05/2019 Surgical History carotid endarterectomy, left side of nec k 02/2015 [facility],-minimal RCA blockage <20% 1996 [facility]osive es[facility], mild nonspecific bulbar duodenitis 1996 [...]
--- OUTSIDE RECORDS SUMMARY | 2020-04-06 06:52 | XMS REPORT ---
Author Author Jermaine CAMPOS [facility] Address [address] [place] [address] Care Team Providers Care Supervisor Grinding Name Role Phone TIFFANIE CAMPOS Unavailable PROBLEMS Type Condition ICD9-CM Code MMM76-FC Code Onset Dates Condition S tatus SNOMED Code Problem Chronic pain G89.29 Active 2088077 1 Problem CAD (coronary artery disease) I25.10 Active 44055685 Problem Diverticulosis of intestine without bleeding, unspecified intestinal tract location K57.90 Active 47935372 Problem Fatty liver K76.0 Active 10355389 7 Problem COPD (chronic obstructive pulmonary disease) wit h chronic bronchitis J44.9 Active 336563632 Problem Abdominal bloating R14.0 Active 1 35683294 Problem Bilateral carotid artery disease I77.9 Active 298354291 Problem Hyperlipemia E78.5 Active 1062315 4 Problem Gastroesophageal reflux disease without esophagitis K21.9 Active 682624222 Problem Chronic obstructive pulmonary disease, unspecified COPD ty pe J44.9 Active 41116595 Problem Non-rheumatic mitral regurgitation I34.0 Active 413310236 Problem Claudication I73.9 Active 4217720 6 Problem Degenerative disc disease, cervical M50.30 Active 49469780 Problem PAD (peripheral artery disease) I73.9 Active 054211941 Problem Benign essential hypertension I10 Active 5908549 Problem Pacemaker Z95.0 Active 756311161 Problem Claudication of both lower extremities I73.9 Active 133007260 Problem Chronic bronchitis J42 Active 6 8043443 Problem Tobacco abuse Z72.0 Active 623938 05 Problem Peripheral arterial disease I73.9 Ac tive 617667049 Problem Mixed hyperlipidemia E78.2 Active 417177175 Problem Other chronic pain G89.29 Active 8 6283998 Problem Diet-controlled diabetes mellitus E11.9 Active 038980523 ALLERGIES No Information ENCOUNTERS Encounter Location Date Diagnosis [facility] [address] [facility] [id number] [id number] Jul, [facility] [address] [place] [address] AVE [id number] [place] [id number] May, [facility] [address] [place] [address] A[address] [id number] [place] [id number] Mar, [facility] [address] [place] [address] [address] [id number] [place] [id number] Mar, Facet arthritis of cervical region M47.8 12 and Cervical radiculopathy M54.12 [facility] [employer] [place] [address] AVE [id number] [place] 806222782 February, Degenerative disc disease, cervical M50. 30 ; Facet arthritis of cervical region M47.812 ; Cervical radiculopathy M54.12 and Pacemaker Z95.0 [facility] [employer] [place] [address] AVE [id number] [place] [id number] February, [facility] [employer] [place] [address] AVE [id number] [place] [id number] Jan, [facility] [id number] [place] [id number] Sep, Diet-controlled diabetes mellitus E11.9 ; Benign essential hypertension I10 and Tobacco abuse Z72.0 [facility]SE[facility]oll[facility] [employer] [place] [address] A[address] [id number] [place] [id number] Jul, Hyperlipemia E78.5 and CAD (coronary art janneth disease) I25.10 [facility] [employer] [place] [address] AVE [id number] [place] [id number] Jun, CAD (coronary artery disease) I25.10 and Hyperlipemia E78.5 [facility] [employer] [place] [address] A[address] [id number] [place] [id number] Jun, New onset type 2 diabetes mellitus E11.9 ; S/P CABG (coronary artery bypass graft) Z95.1 ; Benign essential hypertension I10 ; Other chronic pain G89.29 and S/P cardiac pacemaker procedure Z95.[address] [id number] [place] [id number] Jun, [facility] [address] [place] [address] [address] [id number] [place] [id number] May, [facility] [id number] [place] [id number] May, COPD (chronic obstructive pulmonary dise ase) with chronic bronchitis J44.9 ; Tobacco abuse Z72.0 and Tobacco abuse counseling Z71.6 [facility] [address] [place] [address] [address] [id number] [place] [id number] Apr, CAD (coronary artery disease) I25.10 [facility] [employer] [place] [address] A[address] [id number] [place], [place] [id number] Mar, Peripheral arterial disease I73.9 [facility] [id number] [place] 307103745 February, Chronic pain G89.29 ; Hyperlipemia E78.5 and Benign essential hypertension I10 [facility] [id number] [place] [id number] Jan, COPD (chronic obstructive pulmonary dise ase) with chronic bronchitis J44.9 [facility] [id number] [place] 024152431 Jan, [facility] [id number] [place] [id number] Jan, Peripheral arterial disease I73.9 ; Carlo gn essential hypertension I10 ; Bilateral carotid artery disease I77.9 ; Claudication of both lower extremities I73.9 ; Mixed hyperlipidemia E78.2 ; Tobacco use Z72.0 and Non- rheumatic mitral regurgitation I34.0 [facility] [employer] [place] [address] [address] [id number] [place] [id number] Jan, RUQ pain R10.11 ; Gastroesophageal reflu x disease without esophagitis K21.9 and Change in stool R19.5 [facility] [employer] [place] [address] [address] [id number] [place] [id number] Jan, [facility] [address] [id number] [place] [id number] Jan, Neck pain M54.2 ; Benign essential hyper tension I10 ; COPD (chronic obstructive pulmonary disease) with chronic bronchitis J44.9 and Chronic obstructive pulmonary disease, unspecified COPD type J44.9 [facility] [address] [id number] [place] [id number] Jan, Chronic obstructive pulmonary disease, u nspecified COPD type J44.9 [facility] [address] [id number] [place] [id number] Dec, [facility] [address] [id number] [place] [id number] Dec, [facility]oll[facility] [address] [id number] [place], [place] [id number] Dec, COPD (chronic obstructive pulmonary dise ase) with chronic bronchitis J44.9 [facility] [address] [facility] [id number] [address] [place] [address] Dec, [facility] [address] [facility] [id number] [address] [place] [address] Dec, [facility] [address] [id number] [place] [id number] Nov, [facility] [address] [id number] [place] [id number] Nov, Benign essential hypertension I10 and CO PD (chronic obstructive pulmonary disease) with chronic bronchitis J44.9 [facility] [address] [id number] [place] 458734991 Nov, Hyperlipemia E78.5 ; Benign essential hy pertension I10 ; COPD (chronic obstructive pulmonary disease) with chronic bronchitis J44.9 ; Encounter for immunization Z23 ; Gastroesophageal reflux disease without esophagitis K21.9 and Chronic pain G89.29 [facility] [address] [id number] [place] [id number] Oct, COPD (chronic obstructive pulmonary dise ase) with chronic bronchitis J44.9 and Chronic obstructive pulmonary disease, unspecified COPD type J44.9 [facility] [address] [id number] [place] 6855938[address] Oct, COPD (chronic obstructive pulmonary dise ase) with chronic bronchitis J44.9 and Chronic obstructive pulmonary disease, unspecified COPD type J44.9 [facility] [address] [id number] [place] 857156309 Oct, COPD (chronic obstructive pulmonary dise ase) with chronic bronchitis J44.9 and Chronic obstructive pulmonary disease, unspecified COPD type J44.9 [facility] [address] [id number] [place] [id number] Oct, Benign essential hypertension I10 and Ne ck pain M54.2 [facility]Figaro SystemsTER [address] [id number] [place] 280119474 Sep, PAD (peripheral artery disease) I73.9 ; Claudication of both lower extremities I73.9 ; Bilateral carotid artery disease I77.9 ; Benign essential hypertension I10 ; Hyperlipemia E78.5 and Dyspnea on exertion R06.09 [facility] [address] [id number] [place] [id number] Aug, Benign essential hypertension I10 ; Vannessa roesophageal reflux disease without esophagitis K21.9 and Cervical radiculopathy M54.12 [address] [id number] [place] [id number] Aug, Gastroesophageal reflux disease without esophagitis K21.9 [facility] [address] [id number] [place], [place] [id number] Aug, COPD (chronic obstructive pulmonary dise ase) with chronic bronchitis J44.9 [facility] [address] [id number] [place], [place] [id number] Jul, [facility] [address] [id number] [place] 668928841 Jul, Benign essential hypertension I10 [facility] [address] [id number] [place] [id number] Jul, [facility] [address] [id number] [place] 004113550 Jul, COPD (chronic obstructive pulmonary dise ase) with chronic bronchitis J44.9 [facility] [address] [id number] [place] 704963797 Jul, Neck pain M54.2 [facility] [address] [id number] [place] 611644590 Jun, Claudication of both lower extremities I 73.9 ; PAD (peripheral artery disease) I73.9 ; Bilateral carotid artery disease I77.9 ; CAD (coronary artery disease) I25.10 ; Tobacco abuse Z72.0 ; Benign essential hypertension I10 ; Hyperlipemia E78.5 and Non-rheumatic mitral valve stenosis I34.[address] [facility] [address] [id number] [place] [id number] Jun, Chronic obstructive pulmonary disease, u nspecified COPD type J44.9 [facility] [address] [id number] [place], [place] [id number] May, [facility] [address] [id number] [place] 885009479 May, Chronic obstructive pulmonary disease, u nspecified COPD type J44.9 [facility] [address] [id number] [place], [place] 180693699 May, Neck pain M54.2 ; Chronic obstructive pu lmonary disease, unspecified COPD type J44.9 and Cervical radiculopathy M54.12 [facility] [address] [id number] [place] 926192786 May, [facility] [address] [id number] [place] 746186940 Apr, [facility] [address] [id number] [place], [place] 828171204 Apr, Gastroesophageal reflux disease without esophagitis K21.[address] [address] [address] [id number] [place] 258385638 Apr, COPD (chronic obstructive pulmonary dise ase) with chronic bronchitis J44.[address] [facility] [address] [id number] [place] 326604986 Apr, [facility] [address] [id number] [place] 636337529 Apr, [facility] [address] [id number] [place] 110543023 Apr, COPD (chronic obstructive pulmonary dise ase) with chronic bronchitis J44.9 ; Benign essential hypertension I10 ; Tobacco abuse counseling Z71.6 and Hyperlipemia E78.[address] [facility] [address] [id number] [place], [place] 514674798 February, COPD (chronic obstructive pulmonary dise ase) with chronic bronchitis J44.[address] [facility] [address] [id number] [place] [id number] Jan, [facility] [address] [id number] [place], [place] 720842755 Jan, COPD (chronic obstructive pulmonary dise ase) with chronic bronchitis J44.[address] [facility] [address] [id number] [place] 905954798 Oct, COPD (chronic obstructive pulmonary dise ase) with chronic bronchitis J44.[address] [facility] [address] [id number] [place], [place] 557586906 Oct, Winter itch L29.[address] [facility] [address] [id number] [place] 588637001 Oct, COPD (chronic obstructive pulmonary dise ase) with chronic bronchitis J44.9 ; Benign essential hypertension I10 ; Tobacco abuse Z72.0 and Gastroesophageal reflux disease without esophagitis K21.[address] [facility] [address] [id number] [place] [id number] Sep, Benign essential hypertension I10 [facility] [address] [id number] [place], [place] [id number] Aug, [facility] [place] [address] [address] [id number] [place], [place] [id number] Jul, [facility] [address] [place] [address] [address] [id number] [place], [place] [id number] Apr, [facility] [address] [place] [address] [address] [id number] [place], [place] [id number] Apr, Abdominal bloating R14.0 ; Fatty liver K 76.0 ; Diverticulosis of intestine without bleeding, unspecified intestinal tract location K57.90 ; Chronic obstructive pulmonary disease, unspecified COPD type J44.9 and Benign essential hypertension I10 [facility] [place] [address] [address] [id number] [place] 759131694 Apr, Mild early onset dysthymic disorder, in partial remission, with melancholic features, 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 [facility] [address] [place] [address] [address] [id number] [place], [place] [id number] Mar, Abdominal muscle strain, initial encount er S39.011A [facility]ITALHollison TechnologiesWAGNER [address] [place] [address] [address] [id number] [place], [place] [id number] Jan, Pancreatitis K85.9 ; Abdominal bloating R14.0 ; Chronic bronchitis J42 and Chronic pain G89.29 [facility] [employer] [place] [address] [place] [id number] [place], [place] [id number] Nov, [facility] [employer] [place] [address] [address] [id number] [place], [place] 877334157 Nov, [facility] TechnologiesW[facility]NER[address] [id number] [place], [place] [id number] Nov, Chronic bronchitis J42 ; Tobacco abuse Z 72.0 and Tobacco abuse counseling Z71.6 [facility] [address] [id number] [place], [place] [id number] Oct, [facility] SystemsTER [address] [place] [address] [address] [id number] [place], [place] 859679713 Oct, Chronic bronchitis J42 ; Tobacco abuse Z 72.0 and Benign essential hypertension I10 [facility] [address] [id number] [place], [place] [id number] Oct, Chronic bronchitis J42 ; Tobacco abuse Z 72.0 ; Tobacco abuse counseling Z71.6 ; Benign essential hypertension I10 [address]78[address]5 [facility] [address] [facility] [id number] [address] [place] [address] Sep, [address] [id number] [place], [place] [id number] Jul, [facility] [address] [facility] [id number] [address] [place] [address] Jul, Essential (primary) hyperten aida I10 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 [address] [id number] [address] [place] [address] 14 Jan, 2015 [facility] [address] [id number] [address] [place] [address] Jan, [facility] [address] [id number] [address] [place] [address] Dec, [facility] [address] [id number] [address] [place] [address] Dec, [facility] [address] [id number] [address] [place] [address] Nov, [facility] [address] [id number] [address] [place] [address] Nov, [facility] [address] [id number] [address] [place] [address] Nov, [facility] [address] [id number] [address] [place] [address] Nov, [facility] [address] [id number] [address] [place] [address] Nov, [facility] [address] [id number] [address] [place] [address] Nov, [facility] [address] [id number] [address] [place] [address] Nov, [facility] [address] [id number] [address] [place] [address] Nov, [facility] [address] [id number] [address] [place] [address] Nov, [facility] [address] [id number] [address] [place] [address] Oct, [facility] [address] [id number] [address] [place] [address] Oct, [facility] [address] [id number] [address] [place] [address], [place] [address] Oct, [facility] [address] [id number] [address] [place] [address], [place] [address] Oct, [facility] [address] [id number] [address] [place] [address], [place] [address] Oct, [facility] [address] [id number] [address] [place] [address], [place] [address] Oct, [facility] [address] [id number] [address] [place] [address], [place] [address] Oct, [facility] [address] [id number] [address] [place] [address], [place] [address] Oct, [facility] [address] [id number] [address] [place] [address], [place] [address] Oct, [facility] [address] [id number] [address] [place] [address], [place] [address] Oct, [facility] [address] [id number] [place] [id number] Oct, [facility] [address] [id number] [address] [place] [address] Oct, [facility] [address] [id number] [address] [place] [address], [place] [address] Sep, [facility] [address] [id number] [address] [place] [address] Sep, [facility] [address] [id number] [address] [place] [address], [place] [address] Aug, [facility] [address] [id number] [address] [place] [address], [place] [address] Aug, [facility] [address] [id number] [address] [place] [address], [place] [address] Aug, [facility] [address] [id number] [address] [place] [address], [place] [address] Aug, [facility] [address] [id number] [address] [place] [address], [place] [address] Jul, [facility] [address] [id number] [address] [place] [address], [place] [address] Jul, [facility] [address] [id number] [address] [place] [address], [place] [address] Jun, [facility] [address] [id number] [address] [place] [address], [place] [address] Jun, [facility] [address] [id number] [address] [place] [address], [place] [address] May, [facility] [address] [id number] [address] [place] [address], [place] [address] May, [facility] [address] [id number] [address] [place] [address], [place] [address] May, [facility] [address] [id number] [address] [place] [address], [place] [address] May, [facility] [address] [id number] [address] [place] [address], [place] [address] Jan, [facility] [address] [id number] [address] [place] [address], [place] [address] Jan, [facility] [address] [id number] [address] [place] [address], [place] [address] Nov, [facility] [address] [id number] [address] [place] [address], [place] [address] Nov, [facility] [address] [id number] [address] [place] [address], [place] [address] Nov, [facility] [address] [id number] [address] [place] [address], [place] [address] Nov, [facility] [address] [id number] [address] [place] [address], [place] [address] Nov, [facility] [address] [id number] [address] [place] [address], [place] [address] Nov, [facility] [address] [id number] [address] [place] [address], [place] [address] Nov, [facility] [address] [id number] [address] [place] [address], [place] [address] Nov, [facility] [address] [id number] [address] [place] [address], [place] [address] Nov, [facility] [address] [id number] [address] [place] [address], [place] [address] Nov, [facility] [address] [id number] [address] [place] [address], [place] [address] Oct, [facility] [address] [id number] [address] [place] [address], [place] [address] Oct, [facility] [address] [id number] [address] [place] [address], [place] [address] Oct, [facility] [address] [id number] [address] [place] [address], [place] [address] Oct, [facility] [address] [id number] [address] [place] [address], [place] [address] Sep, [facility] [address] [id number] [address] [place] [address], [place] [address] Sep, [facility] [address] [id number] [address] [place] [address], [place] [address] Aug, [facility] [address] [id number] [address] [place] [address], [place] [address] Aug, [facility] [address] [id number] [address] [place] [address], [place] [address] Aug, [facility] [address] [id number] [address] [place] [address], [place] [address] Aug, [facility] [address] [id number] [address] [place] [address], [place] [address] Aug, [facility] [address] [id number] [address] [place] [address], [place] [address] Aug, [facility] [address] [id number] [address] [place] [address], [place] [address] Aug, [facility] [address] [id number] [address] [place] [address], [place] [address] Aug, [facility] [address] [id number] [address] [place] [address], [place] [address] Jul, [facility] [address] [id number] [address] [place] [address], [place] [address] Jul, [facility] [address] [id number] [address] [place] [address], [place] [address] Jul, [facility] [address] [id number] [address] [place] [address], [place] [address] Jul, [facility] [address] [id number] [address] [place] [address], [place] [address] Jul, [facility] [address] [id number] [address] [place] [address], [place] [address] Jun, [facility] [address] [id number] [address] [place] [address], [place] [address] May, [facility] [address] [id number] [address] [place] [address], [place] [address] Apr, [facility] [address] [id number] [address] [place] [address], [place] [address] February, [facility] [address] [id number] [address] [place] [address], [place] [address] Jan, [facility] [address] [id number] [address] [place] [address], [place] [address] Jan, [facility] [address] [id number] [address] [place] [address], [place] [address] Dec, [facility] [address] [place] [facility] [id number] [address] [place] [id number] Dec, [facility] [address] [facility] [id number] [address] [place] [id number] Dec, [facility] [address] [facility] [id number] [address] [place] [id number] Nov, [facility] [address] [facility] [id number] [address] [place] [phone] Nov, [facility] [address] [facility] [id number] [address] [place] [id number] Nov, [facility] [address] [facility] [id number] [address] [place] [id number] Nov, IMMUNIZATIONS No Known Immunizations SOCIAL HISTORY [...]
--- OUTSIDE RECORDS SUMMARY | 2020-04-06 06:52 | XMS REPORT ---
Author Author Jermaine CAMPOS [facility] Address [address] [place] [address] Care Team Providers Care Nursing Home Admissions Director Name Role Phone TIFFANIE CAMPOS Unavailable PROBLEMS Type Condition ICD9-CM Code QCO17-QI Code Onset Dates Condition S tatus SNOMED Code Problem Chronic pain G89.29 Active 9863732 1 Problem CAD (coronary artery disease) I25.10 Active 90438294 Problem Diverticulosis of intestine without bleeding, unspecified intestinal tract location K57.90 Active 07002106 Problem Fatty liver K76.0 Active 62161353 7 Problem COPD (chronic obstructive pulmonary disease) wit h chronic bronchitis J44.9 Active 101455225 Problem Abdominal bloating R14.0 Active 1 71027977 Problem Bilateral carotid artery disease I77.9 Active 604840722 Problem Hyperlipemia E78.5 Active 0350830 4 Problem Gastroesophageal reflux disease without esophagitis K21.9 Active 704424941 Problem Chronic obstructive pulmonary disease, unspecified COPD ty pe J44.9 Active 19377547 Problem Non-rheumatic mitral regurgitation I34.0 Active 191757446 Problem Claudication I73.9 Active 3059471 6 Problem Degenerative disc disease, cervical M50.30 Active 25519503 Problem PAD (peripheral artery disease) I73.9 Active 910470646 Problem Benign essential hypertension I10 Active 9392523 Problem Pacemaker Z95.0 Active 756823350 Problem Claudication of both lower extremities I73.9 Active 264497151 Problem Chronic bronchitis J42 Active 6 7124488 Problem Tobacco abuse Z72.0 Active 861990 05 Problem Peripheral arterial disease I73.9 Ac tive 423047978 Problem Mixed hyperlipidemia E78.2 Active 967864600 Problem Other chronic pain G89.29 Active 8 1905503 Problem Diet-controlled diabetes mellitus E11.9 Active 759908392 ALLERGIES No Information ENCOUNTERS Encounter Location Date Diagnosis [facility] [address] [facility] [id number], [place] [id number] Jul, [facility] [address] [place] [address] AVE [id number], [place] 759482993 May, [facility] [address] [place] [address] AVE [id number], [place] [id number] Mar, [facility] [address] [place] [address] AVE [id number], [place] [id number] Mar, Facet arthritis of cervical region M47.8 12 and Cervical radiculopathy M54.12 [facility] [address] [place] [address] AVE [id number], [place] [id number] February, Degenerative disc disease, cervical M50. 30 ; Facet arthritis of cervical region M47.812 ; Cervical radiculopathy M54.12 and Pacemaker Z95.0 [facility] [address] [place] [address] AVE [id number], [place] [id number] February, [facility] [address] [place] [address] AVE [id number], [place] [id number] Jan, [facility] [id number], [place] 681019481 Sep, Diet-controlled diabetes mellitus E11.9 ; Benign essential hypertension I10 and Tobacco abuse Z72.0 [facility] [address] [place] [address] AVE [id number], [place] [id number] Jul, Hyperlipemia E78.5 and CAD (coronary art janneth disease) I25.10 [facility] [address] [place] [address] AVE [id number], [place] [id number] Jun, CAD (coronary artery disease) I25.10 and Hyperlipemia E78.5 [facility] [address] [place] [address] AVE [id number], [place] [id number] Jun, New onset type 2 diabetes mellitus E11.9 ; S/P CABG (coronary artery bypass graft) Z95.1 ; Benign essential hypertension I10 ; Other chronic pain G89.29 and S/P cardiac pacemaker procedure Z95.0 [facility] [address] [id number], [place] [id number] Jun, [facility] [address] [place] [address] AVE [id number], [place] [id number] May, [facility] [id number], [place] [id number] May, COPD (chronic obstructive pulmonary dise ase) with chronic bronchitis J44.9 ; Tobacco abuse Z72.0 and Tobacco abuse counseling Z71.6 [facility] [address] [place] [address] A[address] [id number], [place] [id number] Apr, CAD (coronary artery disease) I25.10 [facility] [address] [place] [address] A[address] [id number], [place] [id number] Mar, Peripheral arterial disease I73.9 [facility] [id number], [place] [id number] February, Chronic pain G89.29 ; Hyperlipemia E78.5 and Benign essential hypertension I10 [facility] [id number], [place] 140624499 Jan, COPD (chronic obstructive pulmonary dise ase) with chronic bronchitis J44.9 [facility] [id number], [place] [id number] Jan, [facility] [address] [id number], [place] [id number] Jan, Peripheral arterial disease I73.9 ; Carlo gn essential hypertension I10 ; Bilateral carotid artery disease I77.9 ; Claudication of both lower extremities I73.9 ; Mixed hyperlipidemia E78.2 ; Tobacco use Z72.0 and Non- rheumatic mitral regurgitation I34.0 [facility] [address] [place] [address] A[address] [id number], [place] [id number] Jan, RUQ pain R10.11 ; Gastroesophageal reflu x disease without esophagitis K21.9 and Change in stool R19.5 [facility] [address] [place] [address] [address] [id number], [place] [id number] Jan, [facility] [address] [id number] [place] [id number] Jan, Neck pain M54.2 ; Benign essential hyper tension I10 ; COPD (chronic obstructive pulmonary disease) with chronic bronchitis J44.9 and Chronic obstructive pulmonary disease, unspecified COPD type J44.9 [facility] [address] [id number] [place] [id number] Jan, Chronic obstructive pulmonary disease, u nspecified COPD type J44.9 [facility] [address] [id number] [place] [id number] Dec, [facility] [address] [id number], [place] [id number] Dec, [facility] [address] [id number], [place] [id number] Dec, COPD (chronic obstructive pulmonary dise ase) with chronic bronchitis J44.9 [facility] [address] [facility] [id number] [address] [place] [address] Dec, [facility] [address] [facility] [id number] [address] [place] [address] Dec, [facility] [address] [id number], [place] [id number] Nov, [facility] [address] [id number], [place] 884154551 Nov, Benign essential hypertension I10 and CO PD (chronic obstructive pulmonary disease) with chronic bronchitis J44.9 [facility] [address] [id number], [place] [id number] Nov, Hyperlipemia E78.5 ; Benign essential hy pertension I10 ; COPD (chronic obstructive pulmonary disease) with chronic bronchitis J44.9 ; Encounter for immunization Z23 ; Gastroesophageal reflux disease without esophagitis K21.9 and Chronic pain G89.29 [facility] [address] [id number], [place] [id number] Oct, COPD (chronic obstructive pulmonary dise ase) with chronic bronchitis J44.9 and Chronic obstructive pulmonary disease, unspecified COPD type J44.9 [facility] [address] [id number] [place], [place] 115791333 Oct, COPD (chronic obstructive pulmonary dise ase) with chronic bronchitis J44.9 and Chronic obstructive pulmonary disease, unspecified COPD type J44.9 [facility] [address] [id number], [place] [id number] Oct, COPD (chronic obstructive pulmonary dise ase) with chronic bronchitis J44.9 and Chronic obstructive pulmonary disease, unspecified COPD type J44.9 [facility] [address] [id number] [place], [place] [id number] Oct, Benign essential hypertension I10 and Ne ck pain M54.2 [facility] [address] [id number], [place] 142399770 Sep, PAD (peripheral artery disease) I73.9 ; Claudication of both lower extremities I73.9 ; Bilateral carotid artery disease I77.9 ; Benign essential hypertension I10 ; Hyperlipemia E78.5 and Dyspnea on exertion R06.09 [facility] [address] [id number], [place] 068383285 Aug, Benign essential hypertension I10 ; Vannessa roesophageal reflux disease without esophagitis K21.9 and Cervical radiculopathy M54.12 [facility] [address] [id number], [place] 887194149 Aug, Gastroesophageal reflux disease without esophagitis K21.9 [facility] [address] [id number], [place] [id number] Aug, COPD (chronic obstructive pulmonary dise ase) with chronic bronchitis J44.9 [facility] [address] [id number], [place] 456059454 Jul, [facility] [address] [id number], [place] [id number] Jul, Benign essential hypertension I10 [facility] [address] [id number] [place] 845950933 Jul, [facility] [address] [id number] [place], [place] [id number] Jul, COPD (chronic obstructive pulmonary dise ase) with chronic bronchitis J44.9 [facility] [address] [id number] [place], [place] 730904856 Jul, Neck pain M54.2 [facility] [address] [id number] [place], [place] [id number] Jun, Claudication of both lower extremities I 73.9 ; PAD (peripheral artery disease) I73.9 ; Bilateral carotid artery disease I77.9 ; CAD (coronary artery disease) I25.10 ; Tobacco abuse Z72.0 ; Benign essential hypertension I10 ; Hyperlipemia E78.5 and Non-rheumatic mitral valve stenosis I34.[address] [facility] [address] [id number] [place], [place] 727305432 Jun, Chronic obstructive pulmonary disease, u nspecified COPD type J44.9 [facility] [address] [id number], [place] [id number] May, [facility] [address] [id number], [place] [id number] May, Chronic obstructive pulmonary disease, u nspecified COPD type J44.9 [facility] [address] [id number], [place] 337378569 May, Neck pain M54.2 ; Chronic obstructive pu lmonary disease, unspecified COPD type J44.9 and Cervical radiculopathy M54.12 [facility] [address] [id number] [place], [place] [id number] May, [facility] [address] [id number], [place] [id number] Apr, [facility] [address] [id number], [place] 575816010 Apr, Gastroesophageal reflux disease without esophagitis K21.[address] [facility] [address] [id number] [place] [id number] Apr, COPD (chronic obstructive pulmonary dise ase) with chronic bronchitis J44.[address] [facility] [address] [id number] [place] 878273310 Apr, [facility] [address] [id number] [place] [id number] Apr, [facility] [address] [id number] [place], [place] 531661929 Apr, COPD (chronic obstructive pulmonary dise ase) with chronic bronchitis J44.9 ; Benign essential hypertension I10 ; Tobacco abuse counseling Z71.6 and Hyperlipemia E78.[address] [facility] [address] [id number], [place] 393506036 February, COPD (chronic obstructive pulmonary dise ase) with chronic bronchitis J44.[address] [facility] [address] [id number], [place] 190798541 Jan, [facility] [address] [id number], [place] 422918758 Jan, COPD (chronic obstructive pulmonary dise ase) with chronic bronchitis J44.[address] [facility] [address] [id number], [place] 718742366 Oct, COPD (chronic obstructive pulmonary dise ase) with chronic bronchitis J44.[address] [facility] [address] [id number], [place] 016450347 Oct, Winter itch L29.[address] [facility] [address] [id number], [place] 212097743 Oct, COPD (chronic obstructive pulmonary dise ase) with chronic bronchitis J44.9 ; Benign essential hypertension I10 ; Tobacco abuse Z72.0 and Gastroesophageal reflux disease without esophagitis K21.[address] [facility] [address] [id number] [place], [place] 825849424 Sep, Benign essential hypertension I10 [facility] [address] [id number], [place] [id number] Aug, [facility] [address] [place] [address] AVE [id number], [place] [id number] Jul, [facility] [address] [place] [address] AVE [id number], [place] 764654786 Apr, [facility] [address] [place] [address] A[address] [id number], [place] 057120151 Apr, Abdominal bloating R14.0 ; Fatty liver K 76.0 ; Diverticulosis of intestine without bleeding, unspecified intestinal tract location K57.90 ; Chronic obstructive pulmonary disease, unspecified COPD type J44.9 and Benign essential hypertension I10 [facility] [address] [place] [address] [address] [id number], [place] [id number] Apr, Mild early onset dysthymic disorder, in partial remission, with melancholic features, 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 [facility] [address] [place] [address] A[address] [id number], [place] 079632257 Mar, Abdominal muscle strain, initial encount er S39.011A [facility] [address] [place] [address] A[address] [id number], [place] 641821538 Jan, Pancreatitis K85.9 ; Abdominal bloating R14.0 ; Chronic bronchitis J42 and Chronic pain G89.29 [facility] [address] [place] [address] AV [id number], [place] [id number] Nov, [facility] [address] [place] [address] AVE [id number], [place] 793151238 Nov, [facility] [id number], [place] 808275899 Nov, Chronic bronchitis J42 ; Tobacco abuse Z 72.0 and Tobacco abuse counseling Z71.6 [facility] [employer] [address] [id number], [place] 736128548 Oct, [facility] [address] [place] [address] [address] [id number], [place] 428672096 Oct, Chronic bronchitis J42 ; Tobacco abuse Z 72.0 and Benign essential hypertension I10 [facility] [address] [id number], [place] 546229430 Oct, Chronic bronchitis J42 ; Tobacco abuse Z 72.0 ; Tobacco abuse counseling Z71.6 ; Benign essential hypertension I10 and Hyperlipemia E78.5 [facility] [address] [facility] [id number] [address] [place] [address] Sep, [place] [address] [id number], [place] [id number] Jul, [facility] [address] [facility] [id number] [address] [place] [address] Jul, Essential (primary) hyperten aida I10 [facility] [address] [facility] [id number] [address] [place] [address] Jul, [address] [id number], [place] [id number] Jul, [address] [id number], [place] 693129369 Jun, Benign essential hypertension 401.1 ; Ge neralized edema 782.3 ; Chronic pain 338.29 and Hyperlipemia 272.[address] [id number], [place] [id number] May, Upper respiratory infection 465.9 and Co ugh 786.[address] [id number], KS [id number] Mar, Upper respiratory infection 465.9 ; 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 and Cough 786.[address] [id number], [place] [id number] February, [address] [id number], [place] 394733688 February, Status post bilateral carotid endarterec vito V45.89 ; CAD (coronary artery disease) 414.00 ; Benign essential hypertension 401.1 ; Hyperlipemia 272.4 ; Tobacco abuse 305.1 ; Tobacco abuse counseling V65.42 and Chronic bronchitis 491.9 [facility] [address] [id number] [address] [place] [address] 14 Jan, 2015 [facility] [address] [id number] [address] [place] [address] Jan, [facility] [address] [id number] [address] [place] [address] Dec, [facility] [address] [id number] [address] [place] [address] Dec, [facility] [address] [id number] [address] [place] [address] Nov, [facility] [address] [id number] [address] [place] [address] Nov, [facility] [address] [id number] [address] [place] [address] Nov, [facility] [address] [id number] [address] [place] [address] Nov, [facility] [address] [id number] [address] [place] [address] Nov, [facility] [address] [id number] [address] [place] [address] Nov, [facility] [address] [id number] [address] [place] [address] Nov, [facility] [address] [id number] [address] [place] [address] Nov, [facility] [address] [id number] [address] [place] [address] Nov, [facility] [address] [id number] [address] [place] [address] Oct, [facility] [address] [id number] [address] [place] [address] Oct, [facility] [address] [id number] [address] [place] [address], [place] [address] Oct, [facility] [address] [id number] [address] [place] [address], [place] [address] Oct, [facility] [address] [id number] [address] [place] [address], [place] [address] Oct, [facility] [address] [id number] [address] [place] [address], [place] [address] Oct, [facility] [address] [id number] [address] [place] [address], [place] [address] Oct, [facility] [address] [id number] [address] [place] [address], [place] [address] Oct, [facility] [address] [id number] [address] [place] [address], [place] [address] Oct, [facility] [address] [id number] [address] [place] [address], [place] [address] Oct, [facility] [address] [id number] [place] [id number] Oct, [facility] [address] [id number] [address] [place] [address] Oct, [facility] [address] [id number] [address] [place] [address], [place] [address] Sep, [facility] [address] [id number] [address] [place] [address] Sep, [facility] [address] [id number] [address] [place] [address], [place] [address] Aug, [facility] [address] [id number] [address] [place] [address], [place] [address] Aug, [facility] [address] [id number] [address] [place] [address], [place] [address] Aug, [facility] [address] [id number] [address] [place] [address], [place] [address] Aug, [facility] [address] [id number] [address] [place] [address], [place] [address] Jul, [facility] [address] [id number] [address] [place] [address], [place] [address] Jul, [facility] [address] [id number] [address] [place] [address], [place] [address] Jun, [facility] [address] [id number] [address] [place] [address], [place] [address] Jun, [facility] [address] [id number] [address] [place] [address], [place] [address] May, [facility] [address] [id number] [address] [place] [address], [place] [address] May, [facility] [address] [id number] [address] [place] [address], [place] [address] May, [facility] [address] [id number] [address] [place] [address], [place] [address] May, [facility] [address] [id number] [address] [place] [address], [place] [address] Jan, [facility] [address] [id number] [address] [place] [address], [place] [address] Jan, [facility] [address] [id number] [address] [place] [address], [place] [address] Nov, [facility] [address] [id number] [address] [place] [address], [place] [address] Nov, [facility] [address] [id number] [address] [place] [address], [place] [address] Nov, [facility] [address] [id number] [address] [place] [address], [place] [address] Nov, [facility] [address] [id number] [address] [place] [address], [place] [address] Nov, [facility] [address] [id number] [address] [place] [address], [place] [address] Nov, [facility] [address] [id number] [address] [place] [address], [place] [address] Nov, [facility] [address] [id number] [address] [place] [address], [place] [address] Nov, [facility] [address] [id number] [address] [place] [address], [place] [address] Nov, [facility] [address] [id number] [address] [place] [address], [place] [address] Nov, [facility] [address] [id number] [address] [place] [address], [place] [address] Oct, [facility] [address] [id number] [address] [place] [address], [place] [address] Oct, [facility] [address] [id number] [address] [place] [address], [place] [address] Oct, [facility] [address] [id number] [address] [place] [address], [place] [address] Oct, [facility] [address] [id number] [address] [place] [address], [place] [address] Sep, [facility] [address] [id number] [address] [place] [address], [place] [address] Sep, [facility] [address] [id number] [address] [place] [address], [place] [address] Aug, [facility] [address] [id number] [address] [place] [address], [place] [address] Aug, [facility] [address] [id number] [address] [place] [address], [place] [address] Aug, [facility] [address] [id number] [address] [place] [address], [place] [address] Aug, [facility] [address] [id number] [address] [place] [address], [place] [address] Aug, [facility] [address] [id number] [address] [place] [address], [place] [address] Aug, [facility] [address] [id number] [address] [place] [address], [place] [address] Aug, [facility] [address] [id number] [address] [place] [address], [place] [address] Aug, [facility] [address] [id number] [address] [place] [address], [place] [address] Jul, [facility] [address] [id number] [address] [place] [address], [place] [address] Jul, [facility] [address] [id number] [address] [place] [address], [place] [address] Jul, [facility] [address] [id number] [address] [place] [address], [place] [address] Jul, [facility] [address] [id number] [address] [place] [address], [place] [address] Jul, [facility] [address] [id number] [address] [place] [address], [place] [address] Jun, [facility] [address] [id number] [address] [place] [address], [place] [address] May, [facility] [address] [id number] [address] [place] [address], [place] [address] Apr, [facility] [address] [id number] [address] [place] [address], [place] [address] February, [facility] [address] [id number] [address] [place] [address], [place] [address] Jan, [facility] [address] [id number] [address] [place] [address], [place] [address] Jan, [facility] [address] [address] [id number] [address] [place] [address], [place] [id number] Dec, [facility] [address] [facility] [id number] [address] [place] [id number] Dec, [facility] [address] [facility] [id number] [address] [place] [phone] Dec, [facility] [address] [facility] [id number] [address] [place] [id number] Nov, [facility] [address] [facility] [id number] [address] [place] [id number] Nov, [facility] [address] [facility] [id number] [address] [place] [id number] Nov, [facility] [address] [facility] [id number] [address] [place] [id number] Nov, IMMUNIZATIONS No Known Immunizations SOCIAL HISTORY [...]
--- OUTSIDE RECORDS SUMMARY | 2020-04-06 06:52 | XMS REPORT ---
Author Author Jermaine CAMPOS [facility] Address [address] [place] [address] Care Team Providers Care Concrete Paver Name Role Phone TIFFANIE CAMPOS Unavailable PROBLEMS Type Condition ICD9-CM Code PBQ71-UD Code Onset Dates Condition S tatus SNOMED Code Problem Fatty liver K76.0 Active 29530976 7 Problem Chronic pain G89.29 Active 7219682 1 Problem Abdominal bloating R14.0 Active 1 83769372 Problem Diverticulosis of intestine without bleeding, unspecified intestinal tract location K57.90 Active 13410178 Problem Gastroesophageal reflux disease without esophagitis K21.9 Active 499044749 Problem COPD (chronic obstructive pulmonary disease) wit h chronic bronchitis J44.9 Active 208621684 Problem Bilateral carotid artery disease I77.9 Active 034570164 Problem Chronic bronchitis J42 Active 6 4425826 Problem Claudication of both lower extremities I73.9 Active 415727658 Problem Hyperlipemia E78.5 Active 1932947 4 Problem Non-rheumatic mitral regurgitation I34.0 Active 751519734 Problem Claudication I73.9 Active 4360278 6 Problem Peripheral arterial disease I73.9 Ac tive 337798873 Problem Pacemaker Z95.0 Active 333693570 Problem Chronic obstructive pulmonary disease, unspecified COPD ty pe J44.9 Active 60906565 Problem Tobacco abuse Z72.0 Active 968055 05 Problem Carpal tunnel syndrome on both sides G56.03 Active [id number] Problem PAD (peripheral artery disease) I73.9 Active 170149759 Problem Benign essential hypertension I10 Active 3001107 Problem CAD (coronary artery disease) I25.10 Active 17256927 Problem Mixed hyperlipidemia E78.2 Active 588638541 Problem Other chronic pain G89.29 Active 8 5789555 Problem Diet-controlled diabetes mellitus E11.9 Active 755634970 Problem Degenerative disc disease, cervical M50.30 Active 89704135 ALLERGIES No Information ENCOUNTERS Encounter Location Date Diagnosis [facility] [address] [id number] [id number] Aug, Carpal tunnel syndrome on both sides G56 .03 ; Sore of lower lip K13.0 ; Benign essential hypertension I10 ; COPD (chronic obstructive pulmonary disease) with chronic bronchitis J44.9 and Hyperlipemia E78.5 [facility] [address] [id number] [place] [address], [place] [id number] May, [facility] [id number] [place] [address], [place] [id number] Mar, [facility] [address] [place] [address], [place] [id number] Mar, Facet arthritis of cervical region M47.8 12 and Cervical radiculopathy M54.12 [facility] [address] [id number] [place] [address], [place] [id number] February, Degenerative disc disease, cervical M50. 30 ; Facet arthritis of cervical region M47.812 ; Cervical radiculopathy M54.12 and Pacemaker Z95.0 [facility] [address] [id number] [id number] February, [facility] [address] [id number] [id number] Jan, [facility] [address] [id number] [id number] Sep, Diet-controlled diabetes mellitus E11.9 ; Benign essential hypertension I10 and Tobacco abuse Z72.0 [facility] [place] [address] [place] [address] AVE [id number] [id number] Jul, Hyperlipemia E78.5 and CAD (coronary art janneth disease) I25.10 [facility] [place] [address] [place] [address] AVE [id number] [id number] Jun, CAD (coronary artery disease) I25.10 and Hyperlipemia E78.5 [facility] [place] [address] [place] [address] [id number] [place] [address], [place] [id number] Jun, New onset type 2 diabetes mellitus E11.9 ; S/P CABG (coronary artery bypass graft) Z95.1 ; Benign essential hypertension I10 ; Other chronic pain G89.29 and S/P cardiac pacemaker procedure Z95.[address] [id number] [place] [id number] Jun, [facility] [address] [id number] [id number] May, [address], [place] [id number] May, COPD (chronic obstructive pulmonary dise ase) with chronic bronchitis J44.9 ; Tobacco abuse Z72.0 and Tobacco abuse counseling Z71.[address] [id number] [id number] Apr, CAD (coronary artery disease) I25.[id number] [place] [address], [place] [id number] Mar, Peripheral arterial disease I73.[address] [id number] [id number] February, Chronic pain G89.29 ; Hyperlipemia E78.5 and Benign essential hypertension I10 [address] [id number] [id number] Jan, COPD (chronic obstructive pulmonary dise ase) with chronic bronchitis J44.[address] [id number][address] [facility] [place] [id number] Jan, [address] [id number][address] [facility] [place] [id number] Jan, Peripheral arterial disease I73.9 ; [place] essential hypertension I10 ; Bilateral carotid artery disease I77.9 ; Claudication of both lower extremities I73.9 ; Mixed hyperlipidemia E78.2 ; Tobacco use Z72.0 and Non-rheumatic mitral regurgitation I34.0 [facility] [address] [id number] [place] [id number] Jan, RUQ pain R10.11 ; Gastroesophageal reflu x disease without esophagitis K21.9 and Change in stool R19.5 [facility] [address] [id number] [place] [id number] Jan, [facility] [address] [id number] [place] [id number] Jan, Neck pain M54.2 ; Benign essential hyper tension I10 ; COPD (chronic obstructive pulmonary disease) with chronic bronchitis J44.9 and Chronic obstructive pulmonary disease, unspecified COPD type J44.9 [facility] [address] [id number] [place] [id number] Jan, Chronic obstructive pulmonary disease, u nspecified COPD type J44.9 [facility] [address] [id number] [place] [id number] Dec, [facility] [address] [id number] [place] [id number] Dec, [facility] [address] [id number] [place] [id number] Dec, COPD (chronic obstructive pulmonary dise ase) with chronic bronchitis J44.9 [facility] [place] [address] [address] Dec, [facility] [place] [address] [address] Dec, [facility] [address] [id number] [place] [id number] Nov, [facility] [address] [id number] [place] [id number] Nov, Benign essential hypertension I10 and CO PD (chronic obstructive pulmonary disease) with chronic bronchitis J44.9 [facility] [address] [id number] [place] [id number] 15 Nov, 2017 Hyperlipemia E78.5 ; Benign essential hy pertension I10 ; COPD (chronic obstructive pulmonary disease) with chronic bronchitis J44.9 ; Encounter for immunization Z23 ; Gastroesophageal reflux disease without esophagitis K21.9 and Chronic pain G89.[address] [id number] [place] [id number] Oct, COPD (chronic obstructive pulmonary dise ase) with chronic bronchitis J44.9 and Chronic obstructive pulmonary disease, unspecified COPD type J44.[address] [place] [place] [address] [id number] [place] [id number] Oct, COPD (chronic obstructive pulmonary dise ase) with chronic bronchitis J44.9 and Chronic obstructive pulmonary disease, unspecified COPD type J44.[address] [place] [place] [address] [id number] [place] [id number] Oct, COPD (chronic obstructive pulmonary dise ase) with chronic bronchitis J44.9 and Chronic obstructive pulmonary disease, unspecified COPD type J44.[address] [id number] [place] [id number] Oct, Benign essential hypertension I10 and Ne ck pain M54.[address] [id number] [place] [id number] Sep, PAD (peripheral artery disease) I73.9 ; Claudication of both lower extremities I73.9 ; Bilateral carotid artery disease I77.9 ; Benign essential hypertension I10 ; Hyperlipemia E78.5 and Dyspnea on exertion R06.[address] [id number] [place] [id number] Aug, Benign essential hypertension I10 ; Vannessa roesophageal reflux disease without esophagitis K21.9 and Cervical radiculopathy M54.[address] [id number] [place] [id number] Aug, Gastroesophageal reflux disease without esophagitis K21.[address] [id number] [place] [id number] Aug, COPD (chronic obstructive pulmonary dise ase) with chronic bronchitis J44.9 [facility] [address] [id number] [place] [id number] Jul, [address] [id number] [place] [id number] Jul, Benign essential hypertension I10 [facility] [address] [id number] [place] [id number] Jul, [facility] [address] [id number] [place] [id number] Jul, COPD (chronic obstructive pulmonary dise ase) with chronic bronchitis J44.9 [facility] [address] [id number] [place] [id number] Jul, Neck pain M54.2 [facility] [address] [id number] [place] [id number] Jun, Claudication of both lower extremities I 73.9 ; PAD (peripheral artery disease) I73.9 ; Bilateral carotid artery disease I77.9 ; CAD (coronary artery disease) I25.10 ; Tobacco abuse Z72.0 ; Benign essential hypertension I10 ; Hyperlipemia E78.5 and Non-rheumatic mitral valve stenosis I34.2 [facility] [address] [id number] [place] [id number] Jun, Chronic obstructive pulmonary disease, u nspecified COPD type J44.9 [facility] [address] [id number] [place] [id number] May, [facility] [address] [id number] [place] [id number] May, Chronic obstructive pulmonary disease, u nspecified COPD type J44.9 [facility] [address] [id number] [place] [id number] May, Neck pain M54.2 ; Chronic obstructive pu lmonary disease, unspecified COPD type J44.9 and Cervical radiculopathy M54.12 [facility] [address] [id number] [place] [id number] May, [facility] [address] [id number] [place] [id number] Apr, [facility] [address] [id number] [place] [id number] Apr, Gastroesophageal reflux disease without esophagitis K21.[address] [facility] [address] [id number] [place] [id number] Apr, COPD (chronic obstructive pulmonary dise ase) with chronic bronchitis J44.[address] [facility] [address] [id number] [place] [id number] Apr, [facility] [address] [id number] [place] [id number] Apr, [facility] [address] [id number] [place] [id number] Apr, COPD (chronic obstructive pulmonary dise ase) with chronic bronchitis J44.9 ; Benign essential hypertension I10 ; Tobacco abuse counseling Z71.6 and Hyperlipemia E78.[address] [facility] [address] [id number] [place] [id number] February, COPD (chronic obstructive pulmonary dise ase) with chronic bronchitis J44.[address] [facility] [address] [id number] [place] [id number] Jan, [facility] [address] [id number] [place] [id number] Jan, COPD (chronic obstructive pulmonary dise ase) with chronic bronchitis J44.[address] [facility] [address] [id number] [place] [id number] Oct, COPD (chronic obstructive pulmonary dise ase) with chronic bronchitis J44.[address] [facility] [address] [id number] [place] [id number] Oct, Winter itch L29.[address] [facility] [address] [id number] [place] [id number] Oct, COPD (chronic obstructive pulmonary dise ase) with chronic bronchitis J44.9 ; Benign essential hypertension I10 ; Tobacco abuse Z72.0 and Gastroesophageal reflux disease without esophagitis K21.[address] [facility] [address] [id number] [place] [id number] Sep, Benign essential hypertension I[address] [facility] [address] [id number] [place] [id number] Aug, [place] [address] [id number] [place] [id number] Jul, [place] [address] [id number] [facility] [id number] Apr, [place] [address] [id number][address] [facility] [id number] Apr, Abdominal bloating R14.0 ; Fatty liver K 76.0 ; Diverticulosis of intestine without bleeding, unspecified intestinal tract location K57.90 ; Chronic obstructive pulmonary disease, unspecified COPD type J44.9 and Benign essential hypertension I10 [place] [address] [id number][address] [facility] [id number] Apr, Mild early onset dysthymic disorder, in partial remission, with melancholic features, 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 [place] [address] [id number][address] [facility] [place] [id number] Mar, Abdominal muscle strain, initial encount er S39.011A [place] [address] [id number] [facility] [id number] Jan, Pancreatitis K85.9 ; Abdominal bloating R14.0 ; Chronic bronchitis J42 and Chronic pain G89.[address] [id number][address] [facility] [id number] Nov, [facility] [address] [id number] [facility] [id number] Nov, [facility] [address] [id number] [facility] [id number] Nov, Chronic bronchitis J42 ; Tobacco abuse Z 72.0 and Tobacco abuse counseling Z71.[address] [place] [place] [id number] [place] [id number] Oct, [facility] [address] [id number][address] [facility] [id number] Oct, Chronic bronchitis J42 ; Tobacco abuse Z 72.0 and Benign essential hypertension I10 [address] [facility] HOSPITALIX85335RULYSSES[place] [id number] Oct, Chronic bronchitis J42 ; Tobacco abuse Z 72.0 ; Tobacco abuse counseling Z71.6 ; Benign essential hypertension I10 and Hyperlipemia E78.5 [place] [address] [place] [id number] [place] [address] Sep, [address] [id number] Jul, [facility] [place] [address] [address] Jul, Essential (primary) hypertension I10 [address] [address] Jul, [address] [id number] Jul, [address] [id number] Jun, Benign essential hypertension 401.1 ; Ge neralized edema 782.3 ; Chronic pain 338.29 and Hyperlipemia 272.[address]07757[place] [id number] May, Upper respiratory infection 465.9 and Co ugh 786.2 [place] [id number] [place] [address] [id number] Mar, Upper respiratory infection 465.9 ; 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 and Cough 786.[address]07757[place] [id number] February, [address] [id number] February, Status post bilateral carotid endarterec vito V45.89 ; CAD (coronary artery disease) 414.00 ; Benign essential hypertension 401.1 ; Hyperlipemia 272.4 ; Tobacco abuse 305.1 ; Tobacco abuse counseling V65.42 and Chronic bronchitis 491.9 [place] [address] [id number] [place] [address] 14 Jan, 2015 [facility] [address] [id number] [place] [address] Jan, [facility] [address] [id number] [place] [address] Dec, [facility] [address] [id number] [place] [address] Dec, [facility] [address] [id number] [place] [address] Nov, [facility] [address] [id number] [place] [address] Nov, [facility] [address] [id number] [place] [address] Nov, [facility] [address] [id number] [place] [address] Nov, [facility] [address] [id number] [place] [address] Nov, [facility] [address] [id number] [place] [address] Nov, [facility] [address] [id number] [place] [address] Nov, [facility] [address] [id number] [place] [address] Nov, [facility] [address] [id number] [place] [address] Nov, [facility] [address] [id number] [place] [address] Oct, [facility] [address] [id number] [place] [address] Oct, [facility] [address] [id number] [place] [address] Oct, [facility] [address] [id number] [place] [address] Oct, [facility] [address] [facility] [id number] [place] [address] Oct, [facility] [address] [id number] [place] [address] Oct, [facility] [address] [id number] [place] [address] Oct, [facility] [address] [id number] [place] [address] Oct, [facility] [address] [id number] [place] [address] Oct, [facility] [address] [id number] [place] [address] Oct, [facility] [address] [id number] [place] [id number] Oct, [facility] [address] [id number] [place] [address] Oct, [facility] [address] [id number] [place] [address] Sep, [facility] [address] [id number] [place] [address] Sep, [facility] [address] [id number] [place] [address] Aug, [facility] [address] [id number] [place] [address] Aug, [facility] [address] [id number] [place] [address] Aug, [facility] [address] [id number] [place] [address] Aug, [facility] [address] [id number] [place] [address] Jul, [facility] [address] [id number] [place] [address] Jul, [facility] [address] [id number] [place] [address] 08 Jun, 2014 [facility] [address] [facility] [id number] [place] [address] Jun, [facility] [address] [id number] [place] [address] May, [facility] [address] [id number] [place] [address] May, [facility] [address] [id number] [place] [address] May, [facility] [address] [id number] [place] [address] May, [facility] [address] [id number] [place] [address] Jan, [facility] [address] [id number] [place] [address] Jan, [facility] [address] [id number] [place] [address] Nov, [facility] [address] [id number] [place] [address] Nov, [facility] [address] [id number] [place] [address] Nov, [facility] [address] [id number] [place] [address] Nov, [facility] [address] [id number] [place] [address] Nov, [facility] [address] [id number] [place] [address] Nov, [facility] [address] [id number] [place] [address] Nov, [facility] [address] [id number] [place] [address] Nov, [facility] [address] [id number] [place] [address] Nov, [facility] [address] [id number] [place] [address] Nov, [facility] [address] [id number] [place] [address] Oct, [facility] [address] [id number] [place] [address] Oct, [facility] [address] [id number] [place] [address] Oct, [facility] [address] [id number] [place] [address] Oct, [facility] [address] [id number] [place] [address] Sep, [facility] [address] [id number] [place] [address] Sep, [facility] [address] [id number] [place] [address] Aug, [facility] [address] [id number] [place] [address] Aug, [facility] [address] [id number] [place] [address] Aug, [facility] [address] [id number] [place] [address] Aug, [facility] [address] [id number] [place] [address] Aug, [facility] [address] [id number] [place] [address] Aug, [facility] [address] [id number] [place] [address] Aug, [facility] [address] [id number] [place] [address] Aug, [facility] [address] [id number] [place] [address] Jul, [facility] [address] [id number] [place] [address] Jul, [facility] [address] [id number] [place] [address] Jul, [facility] [address] [id number] [place] [address] Jul, [facility] [address] [id number] [place] [address] Jul, [facility] [address] [id number] [place] [address] Jun, [facility] [address] [id number] [place] [address] May, [facility] [address] [id number] [place] [address] Apr, [facility] [id number] [place] [address] February, [facility] [id number] [place] [address] Jan, [facility] [address] [id number] [place] [address] Jan, [facility] [id number] [place] [address] Dec, [facility] [id number] [place] [address] Dec, [facility] [id number] [place] [address] Dec, [facility] [address] [id number] [place] [address] Nov, [facility] [id number] [place] [address] Nov, [facility] [id number] [place] [address] Nov, [facility] [id number] [place] [address] Nov, IMMUNIZATIONS No Known Immunizations SOCIAL HISTORY Never Assessed REASON FOR VISIT PLAN OF CARE VITAL SIGNS Height 62 in 2014-02-05 Weight 151.1 lbs 2014-02-05 Temperature 98.6 degrees Fahrenheit 2014-02-05 Heart Rate 75 bpm 2014-02-05 Respiratory Rate 18 2014-02-05 Blood pressure systolic 130 mmHg 2014-02-05 Blood pressure diastolic 70 mmHg 2014-02-05 MEDICATIONS No Known Medications RESULTS No Results [...] 02/[facility] function,-minimal RCA blockage <20% 1996 Surgical History EGD-Dr.Makdisi Sharp-mild erosive esophagitis, mild nonspecific bulbar duodenitis 1996 Surgical History carotid endarterectomy, right- [facility] 01/14 015 Surgical History Heart cath with PTCA 2013 Surgical History Colonoscopy- tubular adenoma , hyperplastic polyp- repeat Colonoscopy 12/2016 Surgical History Bypass Surgery- CABG and Pacemaker 06/06 Hospitalization History heart attack 1996 [facility], [facility] Pancreatitis 12/2015 Hospitalization History CABG 05/2018
--- OUTSIDE RECORDS SUMMARY | 2020-04-06 06:53 | XMS REPORT ---
Author Author Jermaine CAMPOS [facility] Address [address] [place] [address] Care Team Providers Care Parking Lot Signaler Name Role Phone TIFFANIE CAMPOS Unavailable PROBLEMS Type Condition ICD9-CM Code YYX01-AE Code Onset Dates Condition S tatus SNOMED Code Problem Chronic pain G89.29 Active 0066054 1 Problem CAD (coronary artery disease) I25.10 Active 98062527 Problem Diverticulosis of intestine without bleeding, unspecified intestinal tract location K57.90 Active 00359660 Problem Fatty liver K76.0 Active 20650007 7 Problem COPD (chronic obstructive pulmonary disease) wit h chronic bronchitis J44.9 Active 789996807 Problem Abdominal bloating R14.0 Active 1 44744204 Problem Bilateral carotid artery disease I77.9 Active 216872680 Problem Hyperlipemia E78.5 Active 1296374 4 Problem Gastroesophageal reflux disease without esophagitis K21.9 Active 575660496 Problem Chronic obstructive pulmonary disease, unspecified COPD ty pe J44.9 Active 99582459 Problem Non-rheumatic mitral regurgitation I34.0 Active 866749831 Problem Claudication I73.9 Active 0934885 6 Problem Degenerative disc disease, cervical M50.30 Active 13467320 Problem PAD (peripheral artery disease) I73.9 Active 992018745 Problem Benign essential hypertension I10 Active 7089375 Problem Pacemaker Z95.0 Active 149338986 Problem Claudication of both lower extremities I73.9 Active 530150351 Problem Chronic bronchitis J42 Active 6 4442655 Problem Tobacco abuse Z72.0 Active 751507 05 Problem Peripheral arterial disease I73.9 Ac tive 582194602 Problem Mixed hyperlipidemia E78.2 Active 302730391 Problem Other chronic pain G89.29 Active 8 4215521 Problem Diet-controlled diabetes mellitus E11.9 Active 244714495 ALLERGIES No Information ENCOUNTERS Encounter Location Date Diagnosis [facility] [address] [facility] [id number] [id number] Jul, [facility] [address] [place] [address] AVE [id number], [place] [id number] May, [facility] [address] [place] [address] AVE [id number], [place] [id number] Mar, [facility] [address] [place] [address] AVE [id number], [place] 110932694 Mar, Facet arthritis of cervical region M47.8 12 and Cervical radiculopathy M54.12 [facility] [place] [address] AVE [id number], [place] [id number] February, Degenerative disc disease, cervical M50. 30 ; Facet arthritis of cervical region M47.812 ; Cervical radiculopathy M54.12 and Pacemaker Z95.0 [facility] [place] [address] AVE [id number], [place] [id number] February, [facility] [address] [place] [address] AVE [id number], [place] [id number] Jan, [facility] [id number], [place] [id number] Sep, Diet-controlled diabetes mellitus E11.9 ; Benign essential hypertension I10 and Tobacco abuse Z72.0 [facility] [address] [place] [address] AVE [id number], [place] [id number] Jul, Hyperlipemia E78.5 and CAD (coronary art janneth disease) I25.10 [facility] [address] [place] [address] AVE [id number], [place] [id number] Jun, CAD (coronary artery disease) I25.10 and Hyperlipemia E78.5 [facility] [address] [place] [address] AVE [id number], [place] [id number] Jun, New onset type 2 diabetes mellitus E11.9 ; S/P CABG (coronary artery bypass graft) Z95.1 ; Benign essential hypertension I10 ; Other chronic pain G89.29 and S/P cardiac pacemaker procedure Z95.0 [facility] [address] [id number], [place] [id number] Jun, [facility] [address] [place] [address] AVE [id number], [place] [id number] May, [facility] [id number], [place] [id number] May, COPD (chronic obstructive pulmonary dise ase) with chronic bronchitis J44.9 ; Tobacco abuse Z72.0 and Tobacco abuse counseling Z71.6 [facility] [address] [place] [address] AVE [id number], [place] [id number] Apr, CAD (coronary artery disease) I25.10 [facility] [place] [address] AVE [id number], [place] [id number] Mar, Peripheral arterial disease I73.9 [facility] [id number], [place] [id number] February, Chronic pain G89.29 ; Hyperlipemia E78.5 and Benign essential hypertension I10 [facility] [id number], [place] [id number] Jan, COPD (chronic obstructive pulmonary dise ase) with chronic bronchitis J44.9 [facility] [id number], [place] [id number] Jan, [facility] [address] [id number], [place] [id number] Jan, Peripheral arterial disease I73.9 ; Carlo gn essential hypertension I10 ; Bilateral carotid artery disease I77.9 ; Claudication of both lower extremities I73.9 ; Mixed hyperlipidemia E78.2 ; Tobacco use Z72.0 and Non- rheumatic mitral regurgitation I34.0 [facility] [address] [place] [address] AVE [id number], [place] [id number] Jan, RUQ pain R10.11 ; Gastroesophageal reflu x disease without esophagitis K21.9 and Change in stool R19.5 [facility] [address] [place] [address] A[address] [id number], [place] [id number] Jan, [facility] [address] [id number] [place] 7059827[address] Jan, Neck pain M54.2 ; Benign essential hyper tension I10 ; COPD (chronic obstructive pulmonary disease) with chronic bronchitis J44.9 and Chronic obstructive pulmonary disease, unspecified COPD type J44.9 [facility] [address] [id number] [place] [id number] Jan, Chronic obstructive pulmonary disease, u nspecified COPD type J44.9 [facility] [address] [id number] [place] [id number] Dec, [facility] [address] [id number], [place] [id number] Dec, [facility] [address] [id number], [place] [id number] Dec, COPD (chronic obstructive pulmonary dise ase) with chronic bronchitis J44.9 [facility] [address] [facility]NOTE [facility] [id number] [address] [place] [address] Dec, [facility] [address] [facility]] [id number] [address] [place] [address] Dec, [facility] [address] [id number], [place] [id number] Nov, [facility] [address] [id number], [place] [id number] Nov, Benign essential hypertension I10 and CO PD (chronic obstructive pulmonary disease) with chronic bronchitis J44.9 [facility] [address] [id number], [place] [id number] Nov, Hyperlipemia E78.5 ; Benign essential hy pertension I10 ; COPD (chronic obstructive pulmonary disease) with chronic bronchitis J44.9 ; Encounter for immunization Z23 ; Gastroesophageal reflux disease without esophagitis K21.9 and Chronic pain G89.29 [facility] [address] [id number], [place] [id number] Oct, COPD (chronic obstructive pulmonary dise ase) with chronic bronchitis J44.9 and Chronic obstructive pulmonary disease, unspecified COPD type J44.9 [facility] [address] [id number] [place] 501093465 Oct, COPD (chronic obstructive pulmonary dise ase) with chronic bronchitis J44.9 and Chronic obstructive pulmonary disease, unspecified COPD type J44.9 [facility] [address] [id number], [place] [id number] Oct, COPD (chronic obstructive pulmonary dise ase) with chronic bronchitis J44.9 and Chronic obstructive pulmonary disease, unspecified COPD type J44.9 [facility] [address] [id number] [place] [id number] Oct, Benign essential hypertension I10 and Ne ck pain M54.2 [facility]STITUTE[facility]iusTER [address] [id number], [place] 533773533 Sep, PAD (peripheral artery disease) I73.9 ; Claudication of both lower extremities I73.9 ; Bilateral carotid artery disease I77.9 ; Benign essential hypertension I10 ; Hyperlipemia E78.5 and Dyspnea on exertion R06.09 [facility]K [address] [id number], [place] [id number] Aug, Benign essential hypertension I10 ; Vannessa roesophageal reflux disease without esophagitis K21.9 and Cervical radiculopathy M54.12 [facility] [address] [id number], [place] [id number] Aug, Gastroesophageal reflux disease without esophagitis K21.9 [facility] [address] [id number], [place] [id number] Aug, COPD (chronic obstructive pulmonary dise ase) with chronic bronchitis J44.9 [facility] [address] [id number], [place] [id number] Jul, [facility] [address] [id number], [place] [id number] Jul, Benign essential hypertension I10 [facility] [address] [id number] [place] [id number] Jul, [facility] [address] [id number] [place] [id number] Jul, COPD (chronic obstructive pulmonary dise ase) with chronic bronchitis J44.9 [facility] [address] [id number] [place] [id number] Jul, Neck pain M54.2 [facility] [address] [id number] [place] [id number] Jun, Claudication of both lower extremities I 73.9 ; PAD (peripheral artery disease) I73.9 ; Bilateral carotid artery disease I77.9 ; CAD (coronary artery disease) I25.10 ; Tobacco abuse Z72.0 ; Benign essential hypertension I10 ; Hyperlipemia E78.5 and Non-rheumatic mitral valve stenosis I34.[address] [facility] [address] [id number] [place] [id number] Jun, Chronic obstructive pulmonary disease, u nspecified COPD type J44.9 [facility] [address] [id number], [place] [id number] May, [facility] [address] [id number], [place] [id number] May, Chronic obstructive pulmonary disease, u nspecified COPD type J44.9 [facility] [address] [id number], [place] [id number] May, Neck pain M54.2 ; Chronic obstructive pu lmonary disease, unspecified COPD type J44.9 and Cervical radiculopathy M54.12 [facility] [address] [id number] [place] [id number] May, [facility] [address] [id number], [place] [id number] Apr, [facility] [address] [id number], [place] [id number] Apr, Gastroesophageal reflux disease without esophagitis K21.[address] [facility] [address] [id number] [place] [id number] Apr, COPD (chronic obstructive pulmonary dise ase) with chronic bronchitis J44.[address] [facility] [address] [id number] [place] 820593668 Apr, [facility] [address] [id number] [place] [id number] Apr, [facility] [address] [id number] [place] [id number] Apr, COPD (chronic obstructive pulmonary dise ase) with chronic bronchitis J44.9 ; Benign essential hypertension I10 ; Tobacco abuse counseling Z71.6 and Hyperlipemia E78.[address] [facility] [address] [id number], [place] 634587538 February, COPD (chronic obstructive pulmonary dise ase) with chronic bronchitis J44.[address] [facility] [address] [id number], [place] [id number] Jan, [facility] [address] [id number], [place] [id number] Jan, COPD (chronic obstructive pulmonary dise ase) with chronic bronchitis J44.[address] [facility] [address] [id number], [place] [id number] Oct, COPD (chronic obstructive pulmonary dise ase) with chronic bronchitis J44.[address] [facility] [address] [id number], [place] [id number] Oct, Winter itch L29.[address] [facility] [address] [id number], [place] 985741756 Oct, COPD (chronic obstructive pulmonary dise ase) with chronic bronchitis J44.9 ; Benign essential hypertension I10 ; Tobacco abuse Z72.0 and Gastroesophageal reflux disease without esophagitis K21.[address] [facility] [address] [id number] [place] [id number] Sep, Benign essential hypertension I10 [facility] [address] [id number], [place] [id number] Aug, [facility] Sanchez[address] [place] [address] AVE [id number], [place] [id number] Jul, [facility] [address] [place] [address] AVE [id number], [place] [id number] Apr, [facility] [address] [place] [address] AVE [id number], [place] 857444985 Apr, Abdominal bloating R14.0 ; Fatty liver K 76.0 ; Diverticulosis of intestine without bleeding, unspecified intestinal tract location K57.90 ; Chronic obstructive pulmonary disease, unspecified COPD type J44.9 and Benign essential hypertension I10 [facility] Sanchez[address] [place] [address] A[address] [id number], [place] [id number] Apr, Mild early onset dysthymic disorder, in partial remission, with melancholic features, 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 [facility] [address] [place] [address] AVE [id number], [place] [id number] Mar, Abdominal muscle strain, initial encount er S39.011A [facility]mWater[facility] [address] [place] [address] AVE [id number], [place] [id number] Jan, Pancreatitis K85.9 ; Abdominal bloating R14.0 ; Chronic bronchitis J42 and Chronic pain G89.29 [facility] [place] [address] [place] [id number], [place] [id number] Nov, [facility] [place] [address] A[address] [id number], [place] 988841468 Nov, [facility]NER[address] [id number], [place] [id number] Nov, Chronic bronchitis J42 ; Tobacco abuse Z 72.0 and Tobacco abuse counseling Z71.6 [facility]Av [address] [id number], [place] [id number] Oct, [facility] [address] [place] [address] AVE [id number], [place] [id number] Oct, Chronic bronchitis J42 ; Tobacco abuse Z 72.0 and Benign essential hypertension I10 [facility] [address] [id number], [place] [id number] Oct, Chronic bronchitis J42 ; Tobacco abuse Z 72.0 ; Tobacco abuse counseling Z71.6 ; Benign essential hypertension I10 and Hyperlipemia E78.5 [facility] [address] [facility]NOTE 3] [id number] [address] [place] [address] Sep, [place] [address] [id number], [place] [id number] Jul, [facility] [address] [facility]NOTE 3] [id number] [address] [place] [address] Jul, Essential (primary) hyperten aida I10 [facility] [address] [facility]NOTE 3] [id number] [address] [place] [address] Jul, [address] [id number], [place] [id number] Jul, [address] [id number], [place] [id number] Jun, Benign essential hypertension 401.1 ; Ge neralized edema 782.3 ; Chronic pain 338.29 and Hyperlipemia 272.[address] [id number], [place] 808350543 May, Upper respiratory infection 465.9 and Co ugh 786.[address] [id number], [place] [id number] Mar, Upper respiratory infection 465.9 ; 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 and Cough 786.[address] [id number], [place] [id number] February, [address] [id number], [place] [id number] February, Status post bilateral carotid endarterec vito V45.89 ; CAD (coronary artery disease) 414.00 ; Benign essential hypertension 401.1 ; Hyperlipemia 272.4 ; Tobacco abuse 305.1 ; Tobacco abuse counseling V65.42 and Chronic bronchitis 491.9 [facility] [address] [id number] [address] [place] [phone] 14 Jan, 2015 [facility] [address] [id number] [address] [place] [address] Jan, [facility] [address] [id number] [address] [place] [address] Dec, [facility] [address] [id number] [address] [place] [address] Dec, [facility] [address] [id number] [address] [place] [address] Nov, [facility] [address] [id number] [address] [place] [phone] Nov, [facility] [address] [id number] [address] [place] [phone] Nov, [facility] [address] [id number] [address] [place] [address] Nov, [facility] [address] [id number] [address] [place] [address] Nov, [facility] [address] [id number] [address] [place] [address] Nov, [facility] [address] [id number] [address] [place] [address] Nov, [facility] [address] [id number] [address] [place] [phone] Nov, [facility] [address] [id number] [address] [place] [phone] Nov, [facility] [address] [id number] [address] [place] [address] Oct, [facility] [address] [id number] [address] [place] [address] Oct, [facility] [address] [id number] [address] [place] [address], [place] [address] Oct, [facility] [address] [id number] [address] [place] [address], [place] [address] Oct, [facility] [address] [id number] [address] [place] [address], [place] [address] Oct, [facility] [address] [id number] [address] [place] [address], [place] [address] Oct, [facility] [address] [id number] [address] [place] [address], [place] [address] Oct, [facility] [address] [id number] [address] [place] [address], [place] [address] Oct, [facility] [address] [id number] [address] [place] [address], [place] [address] Oct, [facility] [address] [id number] [address] [place] [address], [place] [address] Oct, [facility] [address] [id number] [place] [id number] Oct, [facility] [address] [id number] [address] [place] [address] Oct, [facility] [address] [id number] [address] [place] [address], [place] [address] Sep, [facility] [address] [id number] [address] [place] [phone] Sep, [facility] [address] [id number] [address] [place] [address], [place] [address] Aug, [facility] [address] [id number] [address] [place] [address], [place] [address] Aug, [facility] [address] [id number] [address] [place] [address], [place] [address] Aug, [facility] [address] [id number] [address] [place] [address], [place] [address] Aug, [facility] [address] [id number] [address] [place] [address], [place] [address] Jul, [facility] [address] [id number] [address] [place] [address], [place] [address] Jul, [facility] [address] [id number] [address] [place] [address], [place] [address] Jun, [facility] [address] [id number] [address] [place] [address], [place] [address] Jun, [facility] [address] [id number] [address] [place] [address], [place] [address] May, [facility] [address] [id number] [address] [place] [address], [place] [address] May, [facility] [address] [id number] [address] [place] [address], [place] [address] May, [facility] [address] [id number] [address] [place] [address], [place] [address] May, [facility] [address] [id number] [address] [place] [address], [place] [address] Jan, [facility] [address] [id number] [address] [place] [address], [place] [address] Jan, [facility] [address] [id number] [address] [place] [address], [place] [address] Nov, [facility] [address] [id number] [address] [place] [address], [place] [address] Nov, [facility] [address] [id number] [address] [place] [address], [place] [address] Nov, [facility] [address] [id number] [address] [place] [address], [place] [id number] Nov, [facility] [address] [id number] [address] [place] [address], [place] [address] Nov, [facility] [address] [id number] [address] [place] [address], [place] [address] Nov, [facility] [address] [id number] [address] [place] [address], [place] [address] Nov, [facility] [address] [id number] [address] [place] [address], [place] [address] Nov, [facility] [address] [id number] [address] [place] [address], [place] [address] Nov, [facility] [address] [id number] [address] [place] [address], [place] [address] Nov, [facility] [address] [id number] [address] [place] [address], [place] [address] Oct, [facility] [address] [id number] [address] [place] [address], [place] [address] Oct, [facility] [address] [id number] [address] [place] [address], [place] [address] Oct, [facility] [address] [id number] [address] [place] [address], [place] [address] Oct, [facility] [address] [id number] [address] [place] [address], [place] [id number] Sep, [facility] [address] [id number] [address] [place] [address], [place] [address] Sep, [facility] [address] [id number] [address] [place] [address], [place] [address] Aug, [facility] [address] [id number] [address] [place] [address], [place] [address] Aug, [facility] [facility] [address] [id number] [address] [place] [address], [place] [address] Aug, [facility] [address] [id number] [address] [place] [address], [place] [address] Aug, [facility] [address] [id number] [address] [place] [address], [place] [address] Aug, [facility] [address] [id number] [address] [place] [address], [place] [address] Aug, [facility] [address] [id number] [address] [place] [address], [place] [address] Aug, [facility] [address] [id number] [address] [place] [address], [place] [address] Aug, [facility] [address] [id number] [address] [place] [address], [place] [address] Jul, [facility] [address] [id number] [address] [place] [address], [place] [address] Jul, [facility] [address] [id number] [address] [place] [address], [place] [address] Jul, [facility] [address] [id number] [address] [place] [address], [place] [address] Jul, [facility] [address] [id number] [address] [place] [address], [place] [address] Jul, [facility] [address] [id number] [address] [place] [address], [place] [address] Jun, [facility] [address] [id number] [address] [place] [address], [place] [address] May, [facility] [address] [id number] [address] [place] [address], [place] [address] Apr, [facility] [address] [id number] [address] [place] [address], [place] [address] February, [facility] [address] [id number] [address] [place] [address], [place] [address] Jan, [facility] [address] [id number] [address] [place] [address], [place] [address] Jan, [facility] [address] [id number] [address] [place] [address], [place] [address] Dec, [facility] [address] [facility]NOTE [facility]] [id number] [address] [place] [id number] Dec, [facility] [address] [facility]] [id number] [address] [place] [id number] Dec, [facility] [address] [facility]] [id number] [address] [place] [id number] Nov, [facility] [address] [facility]] [id number] [address] [place] [phone] Nov, [facility] [address] [facility]] [id number] [address] [place] [id number] Nov, [facility] [address] [facility]] [id number] [address] [place] [id number] Nov, IMMUNIZATIONS No Known Immunizations SOCIAL HISTORY Never Assessed REASON FOR VISIT PLAN OF CARE VITAL SIGNS Height 62 in 2014-10-20 Weight 139.8 lbs 2014-10-20 Temperature 97.6 degrees Fahrenheit 2014-10-20 Heart Rate 78 bpm 2014-10-20 Respiratory Rate 18 2014-10-20 Blood pressure systolic 110 mmHg 2014-10-20 Blood pressure diastolic 58 mmHg 2014-10-20 MEDICATIONS Unknown Medications RESULTS No Results PROCEDURES No Known procedures INSTRUCTIONS MEDICATIONS ADMINISTERED No Known Medications MEDICAL (GENERAL) HISTORY Type Description Date Medical History GERD Medical History hypertension Medical History 1999 mild stroke syndrome- C T head 02/2015 showed chronic ischemic changes Medical History chronic neck and back pain Medical History [place] x's 2 1996 and 2011 Medical History [...] 02/[address] [facility], [facility],-minimal RCA blockage <20% [...]
--- OUTSIDE RECORDS SUMMARY | 2020-04-06 06:53 | XMS REPORT ---
Author Author Jermaine Aponte Doctor Organization [facility] Address Unknown Phone Unavailable Care Team Providers Care Nipple Threader Name Role Phone Migration, Doctor Unavailable Unavailable PROBLEMS Type Condition ICD9-CM Code KNU86-XY Code Onset Dates Condition S tatus SNOMED Code Problem Chronic pain G89.29 Active 0928620 1 Problem CAD (coronary artery disease) I25.10 Active 83531732 Problem Diverticulosis of intestine without bleeding, unspecified intestinal tract location K57.90 Active 45262644 Problem Fatty liver K76.0 Active 85730874 7 Problem COPD (chronic obstructive pulmonary disease) wit h chronic bronchitis J44.9 Active 381443608 Problem Abdominal bloating R14.0 Active 1 64532756 Problem Bilateral carotid artery disease I77.9 Active 211645036 Problem Hyperlipemia E78.5 Active 9961266 4 Problem Gastroesophageal reflux disease without esophagitis K21.9 Active 617522056 Problem Chronic obstructive pulmonary disease, unspecified COPD ty pe J44.9 Active 54326237 Problem Non-rheumatic mitral regurgitation I34.0 Active 264989212 Problem Claudication I73.9 Active 6641614 6 Problem Degenerative disc disease, cervical M50.30 Active 23388655 Problem PAD (peripheral artery disease) I73.9 Active 878270093 Problem Benign essential hypertension I10 Active 3535640 Problem Pacemaker Z95.0 Active 592340923 Problem Claudication of both lower extremities I73.9 Active 495647080 Problem Chronic bronchitis J42 Active 6 3276984 Problem Tobacco abuse Z72.0 Active 156162 05 Problem Peripheral arterial disease I73.9 Ac tive 110000285 Problem Mixed hyperlipidemia E78.2 Active 612714827 Problem Other chronic pain G89.29 Active 8 8529062 Problem Diet-controlled diabetes mellitus E11.9 Active 884180479 ALLERGIES No Information ENCOUNTERS Encounter Location Date Diagnosis [facility] [address] [id number] [place] [id number] May, [facility] [address] [id number] [place] [id number] Mar, [facility] [address] [address] [id number] [place] [address]49[address] Mar, Facet arthritis of cervical region M47.8 12 and Cervical radiculopathy M54.12 [facility] [address] [place] [address] AVE [id number] [place]LAND[place] [id number] February, Degenerative disc disease, cervical M50. 30 ; Facet arthritis of cervical region M47.812 ; Cervical radiculopathy M54.12 and Pacemaker Z95.0 [facility] [address] [place] [address] A[address] [id number] [place] [id number] February, [facility] [address] [place] [address] A[address] [id number] [place] [id number] Jan, [facility] [address] [place] [address] A[address] [id number] [place] [id number] Sep, Diet-controlled diabetes mellitus E11.9 ; Benign essential hypertension I10 and Tobacco abuse Z72.0 [facility] [address] [id number] [place] 136511399 Jul, Hyperlipemia E78.5 and CAD (coronary art janneth disease) I25.10 [facility] [address] [place] [address] A[address] [id number] [place] [id number] Jun, CAD (coronary artery disease) I25.10 and Hyperlipemia E78.5 [facility] [address] [place] [address] A[address] [id number] [place] [id number] Jun, New onset type 2 diabetes mellitus E11.9 ; S/P CABG (coronary artery bypass graft) Z95.1 ; Benign essential hypertension I10 ; Other chronic pain G89.29 and S/P cardiac pacemaker procedure Z95.0 [facility] [address] [address] [id number] [place] [id number] Jun, [facility] [address] [id number] [place] 748950486 May, [facility] [address] [id number] [place] 906279686 May, COPD (chronic obstructive pulmonary dise ase) with chronic bronchitis J44.9 ; Tobacco abuse Z72.0 and Tobacco abuse counseling Z71.6 [facility] [address] [id number] [place] [address]59[address]50[address] Apr, CAD (coronary artery disease) I25.10 [facility] [address] [place] [address] A[address] [id number] [place] [id number] Mar, Peripheral arterial disease I73.9 [facility] [address] [place] [address] A[address] [id number] [place] [id number] February, Chronic pain G89.29 ; Hyperlipemia E78.5 and Benign essential hypertension I10 [facility] [address] [id number] [place] [id number] Jan, COPD (chronic obstructive pulmonary dise ase) with chronic bronchitis J44.9 [facility] [address] [place] [address] A[address] [id number] [place] [id number] Jan, [facility] [address] [place] [address] A[address] [id number] [place] 847059945 Jan, Peripheral arterial disease I73.9 ; Carlo gn essential hypertension I10 ; Bilateral carotid artery disease I77.9 ; Claudication of both lower extremities I73.9 ; Mixed hyperlipidemia E78.2 ; Tobacco use Z72.0 and Non- rheumatic mitral regurgitation I34.0 [facility] [address] [place] [address] A[address] [id number] [place] [id number] Jan, RUQ pain R10.11 ; Gastroesophageal reflu x disease without esophagitis K21.9 and Change in stool R19.5 [facility] [employer] [address] [id number] [place] [id number] Jan, [facility] [address] [id number] [place] 1779107[address] Jan, Neck pain M54.2 ; Benign essential hyper tension I10 ; COPD (chronic obstructive pulmonary disease) with chronic bronchitis J44.9 and Chronic obstructive pulmonary disease, unspecified COPD type J44.[address] [facility] [address] [id number] [place] [id number] Jan, Chronic obstructive pulmonary disease, u nspecified COPD type J44.[address] [facility] [address] [id number] [place] [address] Dec, [facility] [address] [id number] [place] [id number] Dec, [facility] [address] [id number] [place] [id number] Dec, COPD (chronic obstructive pulmonary dise ase) with chronic bronchitis J44.9 [facility] [address] [facility] [id number] [address] [place] [address] Dec, [facility] [address] [facility] [id number] [address] [place] [address] Dec, [facility] [address] [id number] [place] 817891515 Nov, [facility] [address] [id number] [place] 318341657 Nov, Benign essential hypertension I10 and CO PD (chronic obstructive pulmonary disease) with chronic bronchitis J44.9 [facility] [address] [id number] [place] 209287427 Nov, Hyperlipemia E78.5 ; Benign essential hy pertension I10 ; COPD (chronic obstructive pulmonary disease) with chronic bronchitis J44.9 ; Encounter for immunization Z23 ; Gastroesophageal reflux disease without esophagitis K21.9 and Chronic pain G89.29 [facility] [address] [id number] [place] [id number] Oct, COPD (chronic obstructive pulmonary dise ase) with chronic bronchitis J44.9 and Chronic obstructive pulmonary disease, unspecified COPD type J44.[address] [facility] [address] [id number] [place] [id number] Oct, COPD (chronic obstructive pulmonary dise ase) with chronic bronchitis J44.9 and Chronic obstructive pulmonary disease, unspecified COPD type J44.9 [facility] [address] [id number] [place] [id number] Oct, COPD (chronic obstructive pulmonary dise ase) with chronic bronchitis J44.9 and Chronic obstructive pulmonary disease, unspecified COPD type J44.[address] [facility] [address] [id number] [place] 101373425 Oct, Benign essential hypertension I10 and Ne ck pain M54.2 [facility] [address] [id number] [place] 403810895 Sep, PAD (peripheral artery disease) I73.9 ; Claudication of both lower extremities I73.9 ; Bilateral carotid artery disease I77.9 ; Benign essential hypertension I10 ; Hyperlipemia E78.5 and Dyspnea on exertion R06.09 [facility] [address] [id number] [place] 060594767 Aug, Benign essential hypertension I10 ; Vannessa roesophageal reflux disease without esophagitis K21.9 and Cervical radiculopathy M54.12 [facility] [address] [id number] [place] [id number] Aug, Gastroesophageal reflux disease without esophagitis K21.9 [facility] [address] [address] [id number] [place] [id number] Aug, COPD (chronic obstructive pulmonary dise ase) with chronic bronchitis J44.9 [facility] [address] [id number] [place] [id number] Jul, [facility] [address] [id number] [place] [id number] Jul, Benign essential hypertension I10 [facility] [address] [id number] [place] [id number] Jul, [facility] [address] [id number] [place] [id number] Jul, COPD (chronic obstructive pulmonary dise ase) with chronic bronchitis J44.9 [facility] [address] [id number] [place] [id number] Jul, Neck pain M54.2 [facility] [address] [id number] [place] [address] Jun, Claudication of both lower extremities I 73.9 ; PAD (peripheral artery disease) I73.9 ; Bilateral carotid artery disease I77.9 ; CAD (coronary artery disease) I25.10 ; Tobacco abuse Z72.0 ; Benign essential hypertension I10 ; Hyperlipemia E78.5 and Non-rheumatic mitral valve stenosis I34.[address] [facility] [address] [id number] [place] [id number] Jun, Chronic obstructive pulmonary disease, u nspecified COPD type J44.9 [facility] [address] [id number] [place] [id number] May, [facility] [address] [id number] [place] [id number] May, Chronic obstructive pulmonary disease, u nspecified COPD type J44.9 [facility] [address] [id number] [place] [id number] May, Neck pain M54.2 ; Chronic obstructive pu lmonary disease, unspecified COPD type J44.9 and Cervical radiculopathy M54.12 [facility] [address] [id number] [place] [address] May, [facility] [address] [id number] [place] [id number] Apr, [facility] [address] [address] [id number] [place] [id number] Apr, Gastroesophageal reflux disease without esophagitis K21.9 [facility] [address] [id number] [place] [id number] Apr, COPD (chronic obstructive pulmonary dise ase) with chronic bronchitis J44.9 [facility] [address] [id number] [place] 633973673 Apr, [facility] [address] [id number] [place] 12426[address] Apr, [facility] [address] [address] [id number] [place] [id number] Apr, COPD (chronic obstructive pulmonary dise ase) with chronic bronchitis J44.9 ; Benign essential hypertension I10 ; Tobacco abuse counseling Z71.6 and Hyperlipemia E78.[address] [facility] [address] [id number] [place], [place] [id number] February, COPD (chronic obstructive pulmonary dise ase) with chronic bronchitis J44.[address] [facility] [address] [id number] [place] [id number] Jan, [facility] [address] [id number] [place], [place] [id number] Jan, COPD (chronic obstructive pulmonary dise ase) with chronic bronchitis J44.[address] [facility] [address] [id number] [place] [id number] Oct, COPD (chronic obstructive pulmonary dise ase) with chronic bronchitis J44.[address] [facility] [address] [id number] [place] 192650059 Oct, Winter itch L29.[address] [facility] [address] [id number] [place] [id number] Oct, COPD (chronic obstructive pulmonary dise ase) with chronic bronchitis J44.9 ; Benign essential hypertension I10 ; Tobacco abuse Z72.0 and Gastroesophageal reflux disease without esophagitis K21.[address] [facility] [address] [id number] [place] [id number] Sep, Benign essential hypertension I[address] [facility] [address] [id number] [place] [id number] Aug, [facility] [address] [id number] [place] [id number] Jul, [facility] [address] [address] [id number] [place] [id number] Apr, [facility] [address] [place] [address] A[address] [id number] [place] [id number] Apr, Abdominal bloating R14.0 ; Fatty liver K 76.0 ; Diverticulosis of intestine without bleeding, unspecified intestinal tract location K57.90 ; Chronic obstructive pulmonary disease, unspecified COPD type J44.9 and Benign essential hypertension I10 [facility] [address] [id number] [place] [id number] Apr, Mild early onset dysthymic disorder, in partial remission, with melancholic features, 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 [facility] [address] [id number] [place] 858704398 Mar, Abdominal muscle strain, initial encount er S39.011A [facility] [address] [place], [place] [address] [id number] [place] 067862463 Jan, Pancreatitis K85.9 ; Abdominal bloating R14.0 ; Chronic bronchitis J42 and Chronic pain G89.29 [facility] [address] [facility] [address] [id number] [place] [id number] Nov, [facility] [address] [id number] [place], [place] [id number] Nov, [facility] [address] [id number] [place] [id number] Nov, Chronic bronchitis J42 ; Tobacco abuse Z 72.0 and Tobacco abuse counseling Z71.[address] [facility] [address] [id number] [place], [place] [id number] Oct, [facility] [id number] [place] 599226084 Oct, Chronic bronchitis J42 ; Tobacco abuse Z 72.0 and Benign essential hypertension I10 [facility] [address] [id number] [place]LAND, [place] [id number] Oct, Chronic bronchitis J42 ; Tobacco abuse Z 72.0 ; Tobacco abuse counseling Z71.6 ; Benign essential hypertension I10 and Hyperlipemia E78.5 [facility] [address] [facility] [id number] [address] [place] [address] Sep, [facility] [address] [id number] [place]LAND[place] [id number] Jul, [facility] [address] [place] [id number] [address] [place] [address] Jul, Essential (primary) hyperten aida I10 [facility] [address] [facility] [id number] [address] [place] [address] Jul, [facility] [address] [facility] [address] [id number] [place] [id number] Jul, [facility] [address] [facility] [address] [id number] [place], [place] [id number] Jun, Benign essential hypertension 401.1 ; Ge neralized edema 782.3 ; Chronic pain 338.29 and Hyperlipemia [address] [place] [address] [id number] [place] 801382970 May, Upper respiratory infection 465.9 and Co ugh 786.[address] [id number] [place] [address] [id number] Mar, Upper respiratory infection 465.9 ; 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 account services manager 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.1 and Cough 786.[address] [id number] [place]LAND, [place] 637858548 February, [facility] [address] [id number] [place]LAND, [place] [id number] February, Status post bilateral carotid endarterec vito V45.89 ; CAD (coronary artery disease) 414.00 ; Benign essential hypertension 401.1 ; Hyperlipemia 272.4 ; Tobacco abuse 305.1 ; Tobacco abuse counseling V65.42 and Chronic bronchitis 491.9 [facility] [address] [facility] [id number] [address] [place] [address] Jan, [facility] [address] [id number] [address] [place] [address], [place] [address] Jan, [facility] [address] [id number] [address] [place] [address], [place] [address] Dec, [facility] [address] [id number] [address] [place] [address], [place] [address] Dec, [facility] [address] [id number] [address] [place] [address], [place] [address] Nov, 2014 [facility] [address] [id number] [address] [place] [address], [place] [address] Nov, [facility] [address] [id number] [address] [place] [address], [place] [address] Nov, [facility] [address] [id number] [address] [place] [address], [place] [address] Nov, [facility] [address] [id number] [address] [place] [address], [place] [address] Nov, [facility] [address] [id number] [address] [place] [address], [place] [address] Nov, [facility] [address] [id number] [address] [place] [address], [place] [address] Nov, [facility] [address] [id number] [address] [place] [address], [place] [address] Nov, [facility] [address] [id number] [address] [place] [address] Nov, [facility] [address] [id number] [address] [place] [address], [place] [address] Oct, [facility] [address] [id number] [address] [place] [address], [place] [address] Oct, [facility] [address] [id number] [address] [place] [address], [place] [address] Oct, [facility] [address] [id number] [address] [place] [address] Oct, [facility] [address] [id number] [address] [place] [address], [place] [address] Oct, [facility] [address] [id number] [address] [place] [address] Oct, [facility] [address] [id number] [address] [place] [address], [place] [address] Oct, [facility] [address] [id number] [address] [place] [address] Oct, [facility] [address] [id number] [address] [place] [address], [place] [address] Oct, [facility] [address] [id number] [address] [place] [address] Oct, [facility] [address] [id number] [place], [facility] [id number] Oct, [facility] [address] [id number] [address] [place] [address] Oct, [facility] [address] [id number] [address] [place] [address] Sep, [facility] [address] [id number] [address] [place] [address] Sep, [facility] [address] [id number] [address] [place] [address] Aug, [facility] [address] [id number] [address] [place] [address] Aug, [facility] [address] [id number] [address] [place] [address], [place] [address] Aug, [facility] [address] [id number] [address] [place] [address] Aug, [facility] [address] [id number] [address] [place] [address], [place] [address] Jul, [facility] [address] [id number] [address] [place] [address], [place] [address] Jul, [facility] [address] [id number] [address] [place] [address], [place] [address] Jun, [facility] [address] [id number] [address] [place] [address], [place] [address] Jun, [facility] [address] [id number] [address] [place] [address], [place] [address] May, [facility] [address] [id number] [address] [place] [address], [place] [address] May, [facility] [address] [id number] [address] [place] [address], [place] [address] May, [facility] [address] [id number] [address] [place] [address], [place] [address] May, [facility] [address] [id number] [address] [place] [address], [place] [address] Jan, [facility] [address] [id number] [address] [place] [address], [place] [address] Jan, [facility] [address] [id number] [address] [place] [address], [place] [address] Nov, [facility] [address] [id number] [address] [place] [address], [place] [address] Nov, [facility] [address] [id number] [address] [place] [address], [place] [address] Nov, [facility] [address] [id number] [address] [place] [address], [place] [address] Nov, [facility] [address] [id number] [address] [place] [address], [place] [address] Nov, [facility] [address] [id number] [address] [place] [address], [place] [address] Nov, [facility] [address] [id number] [address] [place] [address], [place] [address] Nov, [facility] [address] [id number] [address] [place] [address], [place] [address] Nov, [facility] [address] [id number] [address] [place] [address], [place] [address] Nov, [facility] [address] [id number] [address] [place] [address], [place] [address] Nov, [facility] [address] [id number] [address] [place] [address], [place] [address] Oct, [facility] [address] [id number] [address] [place] [address], [place] [address] Oct, [facility] [address] [id number] [address] [place] [address], [place] [address] Oct, [facility] [address] [id number] [address] [place] [id number], [place] [address] Oct, [facility] [address] [id number] [address] [place] [id number], [place] [address] Sep, [facility] [address] [id number] [address] [place] [id number], [place] [address] Sep, [facility] [address] [id number] [address] [place] [id number], [place] [address] Aug, [facility] [address] [id number] [address] [place] [id number], [place] [address] Aug, [facility] [address] [id number] [address] [place] [id number], [place] [address] Aug, [facility] [address] [id number] [address] [place] [id number], [place] [address] Aug, [facility] [address] [id number] [address] [place] [address], [place] [address] Aug, [facility] [address] [id number] [address] [place] [address], [place] [address] Aug, [facility] [address] [id number] [address] [place] [id number], [place] [address] Aug, [facility] [address] [id number] [address] [place] [address], [place] [address] Aug, [facility] [address] [id number] [address] [place] [address], [place] [address] Jul, [facility] [address] [id number] [address] [place] [address], [place] [address] Jul, [facility] [address] [id number] [address] [place] [address], [place] [address] Jul, [facility] [address] [id number] [address] [place] [address], [place] [address] Jul, [facility] [address] [id number] [address] [place] [address], [place] [address] Jul, [facility] [address] [id number] [address] [place] [address], [place] [address] Jun, [facility] [address] [id number] [address] [place] [address], [place] [address] May, [facility] [address] [id number] [address] [place] [address], [place] [address] Apr, [facility] [address] [id number] [address] [place] [address], [place] [address] February, [facility] [address] [id number] [address] [place] [address], [place] [address] Jan, [facility] [address] [id number] [address] [place] [address], [place] [address] Jan, [facility] [address] [id number] [address] [place] [address], [place] [address] Dec, [facility] [address] [id number] [address] [place] [address], [place] [address] Dec, [facility] [address] [id number] [address] [place] [address], [place] [address] Dec, [facility] [address] [facility] [id number] [address] [place] [id number] Nov, [facility] [address] [facility] [id number] [address] [place] [id number] Nov, [facility] [address] [facility] [id number] [address] [place] [address] Nov, [facility] [address] [facility] [id number] [address] [place] [id number] Nov, IMMUNIZATIONS No Known Immunizations SOCIAL HISTORY Never Assessed REASON FOR VISIT PLAN OF CARE VITAL SIGNS Height 62 in 2014-08-05 Weight 148 lbs 2014-08-05 Heart Rate 60 bpm 2014-08-05 Blood pressure systolic 0 mmHg 2014-08-05 Blood pressure diastolic 0 mmHg 2014-08-05 MEDICATIONS Unknown Medications RESULTS No Results PROCEDURES Procedure Date Ordered Result Body Site MEASURE BLOOD OXYGEN LEVEL Aug 05, 2014 INSTRUCTIONS MEDICATIONS ADMINISTERED No Known Medications MEDICAL (GENERAL) HISTORY Type Description Date Medical History GERD Medical History hypertension Medical History 1999 mild stroke syndrome- C T head 02/2015 showed chronic ischemic changes Medical History chronic neck and back pain Medical History [place] x's 2 1996 and 2011 Medical History [...] Medical History CABG and Pacemaker 05/2018 (Donato) Surgical History carotid endarterectomy, left side of [...]
--- OUTSIDE RECORDS SUMMARY | 2020-04-06 06:53 | XMS REPORT ---
Author Author Jermaine VALDIVIA Organization [facility] Address [address] [place] [address] Care Team Providers Care Assistant Professor Of History Name Role Phone ALLA VALDIVIA Unavailable PROBLEMS Type Condition ICD9-CM Code OLD22-IK Code Onset Dates Condition S tatus SNOMED Code Problem Chronic pain G89.29 Active 2297030 1 Problem CAD (coronary artery disease) I25.10 Active 05833101 Problem Diverticulosis of intestine without bleeding, unspecified intestinal tract location K57.90 Active 01924506 Problem Fatty liver K76.0 Active 43799627 7 Problem COPD (chronic obstructive pulmonary disease) wit h chronic bronchitis J44.9 Active 644977404 Problem Abdominal bloating R14.0 Active 1 33303966 Problem Bilateral carotid artery disease I77.9 Active 423544559 Problem Hyperlipemia E78.5 Active 6157132 4 Problem Gastroesophageal reflux disease without esophagitis K21.9 Active 592366620 Problem Chronic obstructive pulmonary disease, unspecified COPD ty pe J44.9 Active 21542212 Problem Non-rheumatic mitral regurgitation I34.0 Active 992785831 Problem Claudication I73.9 Active 7374749 6 Problem Degenerative disc disease, cervical M50.30 Active 91648090 Problem PAD (peripheral artery disease) I73.9 Active 260953655 Problem Benign essential hypertension I10 Active 1247221 Problem Pacemaker Z95.0 Active 428976578 Problem Claudication of both lower extremities I73.9 Active 102702623 Problem Chronic bronchitis J42 Active 6 9653758 Problem Tobacco abuse Z72.0 Active 728896 05 Problem Peripheral arterial disease I73.9 Ac tive 052300376 Problem Mixed hyperlipidemia E78.2 Active 008651928 Problem Other chronic pain G89.29 Active 8 4651905 Problem Diet-controlled diabetes mellitus E11.9 Active 540830197 ALLERGIES No Information ENCOUNTERS Encounter Location Date Diagnosis [address] [id number] [place] [id number] May, [facility] [address] [id number] POINT, [place] [address] Mar, [facility] [address] [id number] [place], [place] [id number] Mar, Facet arthritis of cervical region M47.8 12 and Cervical radiculopathy M54.12 [facility] [address] [place] [address] AVE [id number] [place]INT, [place] [address]36[address] February, Degenerative disc disease, cervical M50. 30 ; Facet arthritis of cervical region M47.812 ; Cervical radiculopathy M54.12 and Pacemaker Z95.0 [facility] [address] [id number] [place] [id number] February, [facility] [address] [place] [address] AVE [id number] POINT, [place] [address] Jan, [facility] [address] [id number] [place], [place] [address] Sep, Diet-controlled diabetes mellitus E11.9 ; Benign essential hypertension I10 and Tobacco abuse Z72.0 [facility] [address] [facility] [address] [id number] [place]INT, [place] [address] Jul, Hyperlipemia E78.5 and CAD (coronary art janneth disease) I25.10 [facility] [address] [place] [address] AVE [id number] [place]INT[place] [id number] Jun, CAD (coronary artery disease) I25.10 and Hyperlipemia E78.5 [facility] [address] [id number] [place]INT, [place] [address] Jun, New onset type 2 diabetes mellitus E11.9 ; S/P CABG (coronary artery bypass graft) Z95.1 ; Benign essential hypertension I10 ; Other chronic pain G89.29 and S/P cardiac pacemaker procedure Z95.0 [facility] [address] [id number] POINT, [place] [address] Jun, [facility] [address] [id number] [place]INT, [place] [address] May, [facility] [address] [facility] [address] [id number] [place]INT, [place] [address] May, COPD (chronic obstructive pulmonary dise ase) with chronic bronchitis J44.9 ; Tobacco abuse Z72.0 and Tobacco abuse counseling Z71.6 [facility]vyWAG[facility] [address] [place] [address] AVE [id number] [place]INT, [place] [id number] Apr, CAD (coronary artery disease) I25.10 [facility] [address] [id number] [place], [place] [address] Mar, Peripheral arterial disease I73.9 [facility] [address] [place] [address] AVE [id number] [place], [place] [address]66[address] February, Chronic pain G89.29 ; Hyperlipemia E78.5 and Benign essential hypertension I10 [facility] [address] [place] [address] AVE [id number] [place]INT[place] [id number] Jan, COPD (chronic obstructive pulmonary dise ase) with chronic bronchitis J44.9 [facility]vyWAG[facility] [address] [place] [address] AVE [id number] [place]INT, [place] [phone] Jan, [facility] [address] [place] [address] A[address] [id number] [place]INT, [place] [address]496[address] Jan, Peripheral arterial disease I73.9 ; Carlo gn essential hypertension I10 ; Bilateral carotid artery disease I77.9 ; Claudication of both lower extremities I73.9 ; Mixed hyperlipidemia E78.2 ; Tobacco use Z72.0 and Non- rheumatic mitral regurgitation I34.0 [facility] [address] [id number] [place], [place] [address] Jan, RUQ pain R10.11 ; Gastroesophageal reflu x disease without esophagitis K21.9 and Change in stool R19.5 [facility] [address] [id number] [place]INT, [place] [address] Jan, [facility] [address] [id number] [place]INT, [place] [id number] Jan, Neck pain M54.2 ; Benign essential hyper tension I10 ; COPD (chronic obstructive pulmonary disease) with chronic bronchitis J44.9 and Chronic obstructive pulmonary disease, unspecified COPD type J44.9 [facility] [address] [id number] [place] [address] Jan, Chronic obstructive pulmonary disease, u nspecified COPD type J44.9 [facility] [address] [id number] [place], [place] [address] Dec, [facility] [address] [id number] [place]INT, [place] [address]96[address] Dec, [facility] [address] [id number] [place] [address]657[address] Dec, COPD (chronic obstructive pulmonary dise ase) with chronic bronchitis J44.9 [facility] [address] [facility] [id number] [address] [place] [address] Dec, [facility] [address] [facility] [id number] [address] [place] [address] Dec, [facility] [address] [facility] [address] [id number] [place]INT, [place] [id number] Nov, [facility] [address] [id number] [place]INT, [place] [address] Nov, Benign essential hypertension I10 and CO PD (chronic obstructive pulmonary disease) with chronic bronchitis J44.9 [facility] [address] [id number] [place]INT, [place] [id number] Nov, Hyperlipemia E78.5 ; Benign essential hy pertension I10 ; COPD (chronic obstructive pulmonary disease) with chronic bronchitis J44.9 ; Encounter for immunization Z23 ; Gastroesophageal reflux disease without esophagitis K21.9 and Chronic pain G89.29 [facility] [address] [id number] [place]INT, [place] [address]47[address] Oct, COPD (chronic obstructive pulmonary dise ase) with chronic bronchitis J44.9 and Chronic obstructive pulmonary disease, unspecified COPD type J44.9 [facility] [address] [id number] [place] [address] Oct, COPD (chronic obstructive pulmonary dise ase) with chronic bronchitis J44.9 and Chronic obstructive pulmonary disease, unspecified COPD type J44.9 [facility] [address] [id number] [place]INT, [place] [id number] Oct, COPD (chronic obstructive pulmonary dise ase) with chronic bronchitis J44.9 and Chronic obstructive pulmonary disease, unspecified COPD type J44.9 [facility] [address] [id number] [place], [place] [address]25809763 Oct, Benign essential hypertension I10 and Ne ck pain M54.2 [facility] [address] [id number] [place], [place] [address]30[address] Sep, PAD (peripheral artery disease) I73.9 ; Claudication of both lower extremities I73.9 ; Bilateral carotid artery disease I77.9 ; Benign essential hypertension I10 ; Hyperlipemia E78.5 and Dyspnea on exertion R06.09 [facility] [address] [id number] [place]INT, [place] [address] Aug, Benign essential hypertension I10 ; Vannessa roesophageal reflux disease without esophagitis K21.9 and Cervical radiculopathy M54.12 [facility] [address] [id number] POINT, [place] [id number] Aug, Gastroesophageal reflux disease without esophagitis K21.9 [facility] [address] [id number] [place]INT, [place] [address] Aug, COPD (chronic obstructive pulmonary dise ase) with chronic bronchitis J44.9 [facility] [address] [id number] [place]INT, [place] 005384[address] Jul, [facility] [address] [id number] [place], [place] [id number] Jul, Benign essential hypertension I10 [facility] [address] [id number] [place]INT, [place] [id number] Jul, [facility] [address] [id number] [place]INT, [place] [id number] Jul, COPD (chronic obstructive pulmonary dise ase) with chronic bronchitis J44.9 [facility] [address] [id number] [place] [address] Jul, Neck pain M54.2 [facility] [address] [id number] [place] [address] Jun, Claudication of both lower extremities I 73.9 ; PAD (peripheral artery disease) I73.9 ; Bilateral carotid artery disease I77.9 ; CAD (coronary artery disease) I25.10 ; Tobacco abuse Z72.0 ; Benign essential hypertension I10 ; Hyperlipemia E78.5 and Non-rheumatic mitral valve stenosis I34.2 [employer] [address] [id number] POINT, [place] 1442647[address] Jun, Chronic obstructive pulmonary disease, u nspecified COPD type J44.9 [facility] [address] [id number] [place]INT, [place] [address]26284[address] May, [facility] [address] [id number] [place], [place] [address]57416[address] May, Chronic obstructive pulmonary disease, u nspecified COPD type J44.9 [facility] [address] [id number] [place]INT, [place] 605177507 May, Neck pain M54.2 ; Chronic obstructive pu lmonary disease, unspecified COPD type J44.9 and Cervical radiculopathy M54.12 [facility] [address] [id number] [place], [place] [id number] May, [facility] [address] [id number] [place], [place] [id number] Apr, [facility] [address] [id number] [place], [place] 755841263 Apr, Gastroesophageal reflux disease without esophagitis K21.9 [facility] [address] [id number] [place], [place] [address]294[address]85 Apr, COPD (chronic obstructive pulmonary dise ase) with chronic bronchitis J44.[address] [facility] [address] [id number] [place] [id number] Apr, [facility] [address] [id number] [place] [address] Apr, [facility] [address] [id number] [place] [address] Apr, COPD (chronic obstructive pulmonary dise ase) with chronic bronchitis J44.9 ; Benign essential hypertension I10 ; Tobacco abuse counseling Z71.6 and Hyperlipemia E78.[address] [facility] [address] [id number] [place] [address] February, COPD (chronic obstructive pulmonary dise ase) with chronic bronchitis J44.[address] [facility] [address] [id number] [place] [address]35[address] Jan, [facility] [address] [id number] [place]INT, [place] 945999866 Jan, COPD (chronic obstructive pulmonary dise ase) with chronic bronchitis J44.[address] [facility] [address] [id number] [place] 1990[address]76 Oct, COPD (chronic obstructive pulmonary dise ase) with chronic bronchitis J44.[address] [facility] [address] [id number] [place]INT, [place] 314741273 Oct, Winter itch L29.[address] [facility] [address] [id number] [place]INT, [place] [id number] Oct, COPD (chronic obstructive pulmonary dise ase) with chronic bronchitis J44.9 ; Benign essential hypertension I10 ; Tobacco abuse Z72.0 and Gastroesophageal reflux disease without esophagitis K21.[address] [facility] [address] [id number] [place] [address] Sep, Benign essential hypertension I10 [facility] [address] [id number] [place] [id number] Aug, [facility] [address] [id number] [place]INT, [place] [address]1685235 Jul, [facility] [address] [id number] [place], [place] [id number] Apr, [facility] [address] [id number] [place], [place] 625031798 Apr, Abdominal bloating R14.0 ; Fatty liver K 76.0 ; Diverticulosis of intestine without bleeding, unspecified intestinal tract location K57.90 ; Chronic obstructive pulmonary disease, unspecified COPD type J44.9 and Benign essential hypertension I10 [facility] [address] [address] [id number] [place], [place] 182568514 Apr, Mild early onset dysthymic disorder, in partial remission, with melancholic features, 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 [facility] [address] [place] [address] AV [id number] [place]INT, [place] [id number] Mar, Abdominal muscle strain, initial encount er S39.011A [facility] [place] [address] AVE [id number] [place], [place] 711646239 Jan, Pancreatitis K85.9 ; Abdominal bloating R14.0 ; Chronic bronchitis J42 and Chronic pain G89.29 [facility] [address] [id number] [place], [place] 214241559 Nov, [facility] [address] [id number] [place], [place] 769469304 Nov, [facility] [employer] [address] [place] [address] A[place] [id number] [place], [place] 232741053 Nov, Chronic bronchitis J42 ; Tobacco abuse Z 72.0 and Tobacco abuse counseling Z71.6 [facility] [address] [id number] [place]INT, [place] [id number] Oct, [facility] [address] [id number] [place]INT, [place] 347881512 Oct, Chronic bronchitis J42 ; Tobacco abuse Z 72.0 and Benign essential hypertension I10 [facility] [address] [place] [address] A[place] [id number] [place], [place] 989177557 Oct, Chronic bronchitis J42 ; Tobacco abuse Z 72.0 ; Tobacco abuse counseling Z71.6 ; Benign essential hypertension I10 and Hyperlipemia E78.5 [facility] [address] [facility] [id number] [address] [place] [address] Sep, [facility] [address] [facility] [address] [id number] [place]INT, [place] [id number] Jul, [facility] [address] [facility] [id number] [address] [place] [address] Jul, Essential (primary) hyperten aida I10 [place] [address] [facility] [id number] [address] [place] [address] Jul, [facility] [address] [facility] [address] [id number] [place] [id number] Jul, [facility] [address] [place] [address] [id number] [place] [address] [id number] Jun, Benign essential hypertension 401.1 ; Ge neralized edema 782.3 ; Chronic pain 338.29 and Hyperlipemia 272.4 [place] [address] [facility] [address] [id number] [place] [id number] May, Upper respiratory infection 465.9 and Co ugh 786.[address] [id number] [place] [address] [id number] Mar, Upper respiratory infection 465.9 ; 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 and Cough 786.[address] [id number] POINT, [place] 848234899 February, [address] [id number] [place]INT, [place] [id number] February, Status post bilateral carotid endarterec vito V45.89 ; CAD (coronary artery disease) 414.00 ; Benign essential hypertension 401.1 ; Hyperlipemia 272.4 ; Tobacco abuse 305.1 ; Tobacco abuse counseling V65.42 and Chronic bronchitis 491.9 [facility] [address] [facility] [id number] [address] [place] [phone] 14 Jan, 2015 [facility] [address] [id number] [address] [place] [address], [place] [address] 13 Jan, 2015 [facility] [address] [id number] [address] [place] [address], [place] [address] 30 Dec, 2014 [facility] [address] [id number] [address] [place] [address], [place] [address] Dec, [facility] [address] [id number] [address] [place] [address], [place] [address] Nov, 2014 [facility] [address] [id number] [address] [place] [address], [place] [address] Nov, 2014 [facility] [address] [id number] [address] [place] [address], [place] [address] Nov, 2014 [facility] [address] [id number] [address] [place] [address], [place] [address] Nov, 2014 [facility] [address] [id number] [address] [place] [address], [place] [address] Nov, 2014 [facility] [address] [id number] [address] [place] [address], [place] [address] Nov, [facility] [address] [id number] [address] [place] [address], [place] [address] Nov, [facility] [address] [id number] [address] [place] [address], [place] [address] Nov, [facility] [address] [id number] [address] [place] [address], [place] [address] Nov, [facility] [address] [id number] [address] [place] [address], [place] [address] Oct, [facility] [address] [id number] [address] [place] [address], [place] [address] Oct, [facility] [address] [id number] [address] [place] [address], [place] [address] Oct, [facility] [address] [id number] [address] [place] [address], [place] [address] Oct, [facility] [address] [id number] [address] [place] [address], [place] [address] Oct, [facility] [address] [id number] [address] [place] [address], [place] [address] Oct, [facility] [address] [id number] [address] [place] [address], [place] [address] Oct, [facility] [address] [id number] [address] [place] [address], [place] [address] Oct, [facility] [address] [id number] [address] [place] [address], [place] [address] Oct, [facility] [address] [id number] [address] [place] [address], [place] [address] Oct, [facility] [address] [id number] [place] [id number] Oct, [facility] [address] [id number] [address] [place] [address], [place] [address] Oct, [facility] [address] [id number] [address] [place] [address], [place] [address] Sep, [facility] [address] [id number] [address] [place] [address], [place] [address] Sep, [facility] [address] [id number] [address] [place] [address], [place] [address] Aug, [facility] [address] [id number] [address] [place] [address], [place] [address] Aug, [facility] [address] [id number] [address] [place] [address], [place] [address] Aug, [facility] [address] [id number] [address] [place] [address], [place] [address] Aug, [facility] [address] [id number] [address] [place] [address], [place] [address] Jul, [facility] [address] [id number] [address] [place] [address], [place] [address] Jul, [facility] [address] [id number] [address] [place] [address], [place] [address] Jun, [facility] [address] [id number] [address] [place] [address], [place] [address] Jun, [facility] [address] [id number] [address] [place] [address], [place] [address] May, [facility] [address] [id number] [address] [place] [address], [place] [address] May, [facility] [address] [id number] [address] [place] [address], [place] [address] May, [facility] [address] [id number] [address] [place] [address], [place] [address] May, [facility] [address] [id number] [address] [place] [address], [place] [address] Jan, [facility] [address] [id number] [address] [place] [address], [place] [address] Jan, [facility] [address] [id number] [address] [place] [address], [place] [address] Nov, [facility] [address] [id number] [address] [place] [address], [place] [address] Nov, [facility] [address] [id number] [address] [place] [address], [place] [address] Nov, [facility] [address] [id number] [address] [place] [address], [place] [address] Nov, [facility] [address] [id number] [address] [place] [address], [place] [address] Nov, [facility] [address] [id number] [address] [place] [address], [place] [address] Nov, [facility] [address] [id number] [address] [place] [address], [place] [address] Nov, [facility] [address] [id number] [address] [place] [address], [place] [address] Nov, [facility] [address] [id number] [address] [place] [address], [place] [address] Nov, [facility] [address] [id number] [address] [place] [address], [place] [address] Nov, [facility] [address] [id number] [address] [place] [address], [place] [address] Oct, [facility] [address] [id number] [address] [place] [address], [place] [address] Oct, [facility] [address] [id number] [address] [place] [address], [place] [address] Oct, [facility] [address] [id number] [address] [place] [address], [place] [address] Oct, [facility] [address] [id number] [address] [place] [address], [place] [address] Sep, [facility] [address] [id number] [address] [place] [address], [place] [address] Sep, [facility] [address] [id number] [address] [place] [address], [place] [address] Aug, [facility] [address] [id number] [address] [place] [address], [place] [address] Aug, [facility] [address] [id number] [address] [place] [address], [place] [address] Aug, [facility] [address] [id number] [address] [place] [address], [place] [address] Aug, [facility] [address] [id number] [address] [place] [address], [place] [address] Aug, [facility] [facility] [address] [id number] [address] [place] [id number] Aug, [facility] [address] [id number] [address] [place] [address], [place] [address] Aug, [facility] [address] [id number] [address] [place] [id number] Aug, [facility] [address] [id number] [address] [place] [address], [place] [address] Jul, [facility] [address] [id number] [address] [place] [address], [place] [address] Jul, [facility] [address] [id number] [address] [place] [address], [place] [address] Jul, [facility] [address] [id number] [address] [place] [address], [place] [address] Jul, [facility] [address] [id number] [address] [place] [address], [place] [address] Jul, [facility] [address] [id number] [address] [place] [address], [place] [address] Jun, [facility] [address] [id number] [address] [place] [phone] May, [facility] [address] [id number] [address] [place] [id number] Apr, [facility] [address] [id number] [address] [place] [phone] February, [facility] [address] [id number] [address] [place] [address], [place] [address] Jan, [facility] [address] [id number] [address] [place] [id number] Jan, [facility] [address] [id number] [address] [place] [id number] Dec, [facility] [address] [id number] [address] [place] [address], [place] [address] Dec, [facility] [address] [id number] [address] [place] [id number] Dec, [facility] [address] [facility] [id number] [address] [place] [phone] Nov, [facility] [address] [facility] [id number] [address] [place] [phone] Nov, [facility] [address] [facility] [id number] [address] [place] [id number] Nov, [facility] [address] [facility] [id number] [address] [place] [id number] Nov, IMMUNIZATIONS No Known Immunizations SOCIAL HISTORY Never Assessed REASON FOR VISIT PLAN OF CARE VITAL SIGNS Height 62 in 2014-09-19 Weight 137.19 lbs 2014-09-19 Temperature 96.2 degrees Fahrenheit 2014-09-19 Heart Rate 68 bpm 2014-09-19 Respiratory Rate 18 2014-09-19 Blood pressure systolic 138 mmHg 2014-09-19 Blood pressure diastolic 88 mmHg 2014-09-19 MEDICATIONS Unknown Medications RESULTS No Results PROCEDURES [...] 02/[address] [facility], LV function,-minimal RCA blockage <20% 1996 Surgical History EGD-Dr.Makdisi Sharp-mild erosive esophagitis, mild nonspecific bulbar duodenitis 1996 Surgical History carotid endarterectomy, right- Frankiey 01/14 015 Surgical History Heart cath with PTCA 2013 Surgical History Colonoscopy- tubular adenoma , hyperplastic polyp- repeat Colonoscopy 12/2016 Surgical History Bypass Surgery- CABG and Pacemaker 06/06 Hospitalization History heart attack 1996 Hospitalization History slurred speech, fever, left arm pain Sharifa Shah February 2015 Hospitalization History Pancreatitis 12/2015 Hospitalization History CABG 05/2018
--- OUTSIDE RECORDS SUMMARY | 2020-04-06 06:53 | XMS REPORT ---
Author Author Jermaine CAMPOS [facility] Address [address] [place] [address] Care Team Providers Care Gravity Prospector Name Role Phone TIFFANIE CAMPOS Unavailable PROBLEMS Type Condition ICD9-CM Code ORI25-SU Code Onset Dates Condition S tatus SNOMED Code Problem Chronic pain G89.29 Active 7896356 1 Problem CAD (coronary artery disease) I25.10 Active 28119018 Problem Diverticulosis of intestine without bleeding, unspecified intestinal tract location K57.90 Active 29761443 Problem Fatty liver K76.0 Active 87304044 7 Problem COPD (chronic obstructive pulmonary disease) wit h chronic bronchitis J44.9 Active 716532063 Problem Abdominal bloating R14.0 Active 1 93602618 Problem Bilateral carotid artery disease I77.9 Active 333800909 Problem Hyperlipemia E78.5 Active 1154969 4 Problem Gastroesophageal reflux disease without esophagitis K21.9 Active 504777104 Problem Chronic obstructive pulmonary disease, unspecified COPD ty pe J44.9 Active 83657690 Problem Non-rheumatic mitral regurgitation I34.0 Active 240840836 Problem Claudication I73.9 Active 0649840 6 Problem Degenerative disc disease, cervical M50.30 Active 95104917 Problem PAD (peripheral artery disease) I73.9 Active 494232520 Problem Benign essential hypertension I10 Active 5540563 Problem Pacemaker Z95.0 Active 764837886 Problem Claudication of both lower extremities I73.9 Active 882853284 Problem Chronic bronchitis J42 Active 6 9686787 Problem Tobacco abuse Z72.0 Active 531027 05 Problem Peripheral arterial disease I73.9 Ac tive 783379635 Problem Mixed hyperlipidemia E78.2 Active 707498614 Problem Other chronic pain G89.29 Active 8 1152912 Problem Diet-controlled diabetes mellitus E11.9 Active [id number] ALLERGIES No Information ENCOUNTERS Encounter Location Date Diagnosis [facility] [address] [facility] [id number], [place] [id number] Jul, [facility] [address] [place] [address] AVE [id number], [place] [id number] May, [facility] [address] [place] [address] AVE [id number], [place] [id number] Mar, [facility] [address] [place] [address] [address] [id number], [place] [id number] Mar, Facet arthritis of cervical region M47.8 12 and Cervical radiculopathy M54.12 [facility] [employer] [place] [address] AVE [id number], [place] [id number] February, Degenerative disc disease, cervical M50. 30 ; Facet arthritis of cervical region M47.812 ; Cervical radiculopathy M54.12 and Pacemaker Z95.0 [facility] [place] [address] AVE [id number], [place] [id number] February, [facility] [employer] [place] [address] AVE [id number], [place] [id number] Jan, [facility] [address] [id number], [place] 600250054 Sep, Diet-controlled diabetes mellitus E11.9 ; Benign essential hypertension I10 and Tobacco abuse Z72.0 [facility] [employer] [place] [address] AVE [id number], [place] [id number] Jul, Hyperlipemia E78.5 and CAD (coronary art janneth disease) I25.10 [facility] [employer] [place] [address] AVE [id number], [place] [id number] Jun, CAD (coronary artery disease) I25.10 and Hyperlipemia E78.5 [facility] [employer] [place] [address] AVE [id number], [place] [id number] Jun, New onset type 2 diabetes mellitus E11.9 ; S/P CABG (coronary artery bypass graft) Z95.1 ; Benign essential hypertension I10 ; Other chronic pain G89.29 and S/P cardiac pacemaker procedure Z95.0 [facility] [address] [id number], [place] [id number] Jun, [facility] [address] [place] [address] AVE [id number], [place] [id number] May, [facility] [address] [id number], [place] [id number] May, COPD (chronic obstructive pulmonary dise ase) with chronic bronchitis J44.9 ; Tobacco abuse Z72.0 and Tobacco abuse counseling Z71.6 [facility] [address] [place] [address] AVE [id number], [place] [id number] Apr, CAD (coronary artery disease) I25.10 [facility] [place] [address] AVE [id number], [place] 659139300 Mar, Peripheral arterial disease I73.9 [facility] [id number], [place] [id number] February, Chronic pain G89.29 ; Hyperlipemia E78.5 and Benign essential hypertension I10 [facility] [id number], [place] [id number] Jan, COPD (chronic obstructive pulmonary dise ase) with chronic bronchitis J44.9 [facility] [id number], [place] [id number] Jan, [facility] [address] [id number], [place] [id number] Jan, Peripheral arterial disease I73.9 ; Carlo gn essential hypertension I10 ; Bilateral carotid artery disease I77.9 ; Claudication of both lower extremities I73.9 ; Mixed hyperlipidemia E78.2 ; Tobacco use Z72.0 and Non- rheumatic mitral regurgitation I34.0 [facility] [employer] [place] [address] A[address] [id number], [place] [id number] Jan, RUQ pain R10.11 ; Gastroesophageal reflu x disease without esophagitis K21.9 and Change in stool R19.5 [facility] [employer] [place] [address] A[address] [id number], [place] [id number] Jan, [facility] [address] [id number] [place] [id number] Jan, Neck pain M54.2 ; Benign essential hyper tension I10 ; COPD (chronic obstructive pulmonary disease) with chronic bronchitis J44.9 and Chronic obstructive pulmonary disease, unspecified COPD type J44.9 [facility] [address] [id number] [place] [id number] Jan, Chronic obstructive pulmonary disease, u nspecified COPD type J44.9 [facility] [address] [id number] [place] [id number] Dec, [facility] [address] [id number], [place] [id number] Dec, [facility] [address] [address] [id number], [place] [id number] Dec, COPD (chronic obstructive pulmonary dise ase) with chronic bronchitis J44.9 [facility] [address] [facility] [id number] [address] [place] [address] Dec, [facility] [address] [facility] [id number] [address] [place] [address] Dec, [facility] [address] [id number], [place] 416523151 Nov, [facility] [address] [id number], [place] [id number] Nov, Benign essential hypertension I10 and CO PD (chronic obstructive pulmonary disease) with chronic bronchitis J44.9 [facility] [address] [id number], [place] 135411248 Nov, Hyperlipemia E78.5 ; Benign essential hy pertension I10 ; COPD (chronic obstructive pulmonary disease) with chronic bronchitis J44.9 ; Encounter for immunization Z23 ; Gastroesophageal reflux disease without esophagitis K21.9 and Chronic pain G89.29 [facility] [address] [id number], [place] [id number] Oct, COPD (chronic obstructive pulmonary dise ase) with chronic bronchitis J44.9 and Chronic obstructive pulmonary disease, unspecified COPD type J44.9 [facility] [address] [id number] [place] [id number] Oct, COPD (chronic obstructive pulmonary dise ase) with chronic bronchitis J44.9 and Chronic obstructive pulmonary disease, unspecified COPD type J44.9 [facility] [address] [id number], [place] [id number] Oct, COPD (chronic obstructive pulmonary dise ase) with chronic bronchitis J44.9 and Chronic obstructive pulmonary disease, unspecified COPD type J44.9 [facility] [address] [id number] [place] [id number] Oct, Benign essential hypertension I10 and Ne ck pain M54.2 [facility] [employer] [address] [id number], [place] [id number] Sep, PAD (peripheral artery disease) I73.9 ; Claudication of both lower extremities I73.9 ; Bilateral carotid artery disease I77.9 ; Benign essential hypertension I10 ; Hyperlipemia E78.5 and Dyspnea on exertion R06.09 [facility] [address] [id number], [place] [id number] Aug, Benign essential hypertension I10 ; Vannessa roesophageal reflux disease without esophagitis K21.9 and Cervical radiculopathy M54.12 [facility] [address] [id number], [place] [id number] Aug, Gastroesophageal reflux disease without esophagitis K21.9 [facility] [address] [id number], [place] 805479961 Aug, COPD (chronic obstructive pulmonary dise ase) with chronic bronchitis J44.9 [facility] [address] [id number], [place] 718495858 Jul, [facility] [address] [id number], [place] 760422903 Jul, Benign essential hypertension I10 [facility] [address] [id number] [place] [id number] Jul, [facility] [address] [id number] [place] 817571849 Jul, COPD (chronic obstructive pulmonary dise ase) with chronic bronchitis J44.9 [facility] [address] [id number] [place], [place] [id number] Jul, Neck pain M54.2 [facility] [address] [id number] [place] 260962093 Jun, Claudication of both lower extremities I 73.9 ; PAD (peripheral artery disease) I73.9 ; Bilateral carotid artery disease I77.9 ; CAD (coronary artery disease) I25.10 ; Tobacco abuse Z72.0 ; Benign essential hypertension I10 ; Hyperlipemia E78.5 and Non-rheumatic mitral valve stenosis I34.[address] [facility] [address] [address] [id number] [place] [id number] Jun, Chronic obstructive pulmonary disease, u nspecified COPD type J44.9 [facility] [address] [id number], [place] [id number] May, [facility] [address] [id number], [place] [id number] May, Chronic obstructive pulmonary disease, u nspecified COPD type J44.9 [facility] [address] [id number], [place] 465662462 May, Neck pain M54.2 ; Chronic obstructive pu lmonary disease, unspecified COPD type J44.9 and Cervical radiculopathy M54.12 [facility] [address] [id number] [place] [id number] May, [facility] [address] [id number], [place] 935274964 Apr, [facility] [address] [id number], [place] [id number] Apr, Gastroesophageal reflux disease without esophagitis K21.[address] [facility] [address] [address] [id number] [place], [place] [id number] Apr, COPD (chronic obstructive pulmonary dise ase) with chronic bronchitis J44.[address] [facility] [address] [id number] [place], [place] [id number] Apr, [facility] [address] [id number] [place] [id number] Apr, [facility] [address] [id number] [place] [id number] Apr, COPD (chronic obstructive pulmonary dise ase) with chronic bronchitis J44.9 ; Benign essential hypertension I10 ; Tobacco abuse counseling Z71.6 and Hyperlipemia E78.[address] [facility] [address] [address] [id number], [place] [id number] February, COPD (chronic obstructive pulmonary dise ase) with chronic bronchitis J44.[address] [facility] [address] [id number], [place] [id number] Jan, [facility] [address] [id number], [place] 935690595 Jan, COPD (chronic obstructive pulmonary dise ase) with chronic bronchitis J44.[address] [facility] [address] [id number], [place] [id number] Oct, COPD (chronic obstructive pulmonary dise ase) with chronic bronchitis J44.[address] [facility] [address] [id number], [place] [id number] Oct, Winter itch L29.[address] [facility] [address] [address] [id number], [place] 843154758 Oct, COPD (chronic obstructive pulmonary dise ase) with chronic bronchitis J44.9 ; Benign essential hypertension I10 ; Tobacco abuse Z72.0 and Gastroesophageal reflux disease without esophagitis K21.[address] [facility] [address] [id number] [place], [place] [id number] Sep, Benign essential hypertension I10 [facility] [address] [id number], [place] [id number] Aug, [facility] Sanchez[address] [place] [address] A[address] [id number], [place] [id number] Jul, [facility] [address] [place] [address] AVE [id number], [place] [id number] Apr, [facility] [address] [place] [address] AVE [id number], [place] [id number] Apr, Abdominal bloating R14.0 ; Fatty liver K 76.0 ; Diverticulosis of intestine without bleeding, unspecified intestinal tract location K57.90 ; Chronic obstructive pulmonary disease, unspecified COPD type J44.9 and Benign essential hypertension I10 [facility] Sanchez[address] [place] [address] AVE [id number], [place] [id number] Apr, Mild early onset dysthymic disorder, in partial remission, with melancholic features, 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 [facility] [address] [place] [address] AVE [id number], [place] [id number] Mar, Abdominal muscle strain, initial encount er S39.011A [facility] Tower SoftwareWAG[facility] [address] [place] [address] A[address] [id number], [place] [id number] Jan, Pancreatitis K85.9 ; Abdominal bloating R14.0 ; Chronic bronchitis J42 and Chronic pain G89.29 [facility] [employer] [place] [address] AV [id number], [place] [id number] Nov, [facility] [place] [address] AVE [id number], [place] [id number] Nov, [facility] [id number], [place] [id number] Nov, Chronic bronchitis J42 ; Tobacco abuse Z 72.0 and Tobacco abuse counseling Z71.6 [facility] Technologies[facility] [address] [id number], [place] [id number] Oct, [facility] [address] [place] [address] A[address] [id number], [place] [id number] Oct, Chronic bronchitis J42 ; Tobacco abuse Z 72.0 and Benign essential hypertension I[facility] [address] [id number], [place] [id number] Oct, Chronic bronchitis J42 ; Tobacco abuse Z 72.0 ; Tobacco abuse counseling Z71.6 ; Benign essential hypertension I10 and Hyperlipemia E78.5 [facility] [address] [facility] [id number] [address] [place] [address] Sep, [place] [address] [id number], [place] [id number] Jul, [facility] [address] [facility] [id number] [address] [place] [address] Jul, Essential (primary) hyperten aida I10 [facility] [address] [facility] [id number] [address] [place] [address] Jul, [address] [id number], [place] [id number] Jul, [address] [id number], [place] 785364710 Jun, Benign essential hypertension 401.1 ; Ge neralized edema 782.3 ; Chronic pain 338.29 and Hyperlipemia 272.[address] [id number], [place] 191250260 May, Upper respiratory infection 465.9 and Co ugh 786.[address] [id number], [place] [id number] Mar, Upper respiratory infection 465.9 ; 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 [address] [id number] [address] [place] [address] Jan, [facility] [address] [id number] [address] [place] [address] Dec, [facility] [address] [id number] [address] [place] [address] Dec, [facility] [address] [id number] [address] [place] [address] Nov, [facility] [address] [id number] [address] [place] [address] Nov, [facility] [address] [id number] [address] [place] [address] Nov, [facility] [address] [id number] [address] [place] [address] Nov, [facility] [address] [id number] [address] [place] [address] Nov, [facility] [address] [id number] [address] [place] [address] Nov, [facility] [address] [id number] [address] [place] [address] Nov, [facility] [address] [id number] [address] [place] [address] Nov, [facility] [address] [id number] [address] [place] [address] Nov, [facility] [address] [id number] [address] [place] [address] Oct, [facility] [address] [id number] [address] [place] [address] Oct, [facility] [address] [id number] [address] [place] [address], [place] [address] Oct, [facility] [address] [id number] [address] [place] [address], [place] [address] Oct, [facility] [address] [id number] [address] [place] [address], [place] [address] Oct, [facility] [address] [id number] [address] [place] [address], [place] [address] Oct, [facility] [address] [id number] [address] [place] [address], [place] [address] Oct, [facility] [address] [id number] [address] [place] [address], [place] [address] Oct, [facility] [address] [id number] [address] [place] [address], [place] [address] Oct, [facility] [address] [id number] [address] [place] [address], [place] [address] Oct, [facility] [address] [id number] [place] [id number] Oct, [facility] [address] [id number] [address] [place] [address] Oct, [facility] [address] [id number] [address] [place] [address], [place] [address] Sep, [facility] [address] [id number] [address] [place] [address] Sep, [facility] [address] [id number] [address] [place] [address], [place] [address] Aug, [facility] [address] [id number] [address] [place] [address], [place] [address] Aug, [facility] [address] [id number] [address] [place] [address], [place] [address] Aug, [facility] [address] [id number] [address] [place] [address], [place] [address] Aug, [facility] [address] [id number] [address] [place] [address], [place] [address] Jul, [facility] [address] [id number] [address] [place] [address], [place] [address] Jul, [facility] [address] [id number] [address] [place] [address], [place] [address] Jun, [facility] [address] [id number] [address] [place] [address], [place] [address] Jun, [facility] [address] [id number] [address] [place] [address], [place] [address] May, [facility] [address] [id number] [address] [place] [address], [place] [address] May, [facility] [address] [id number] [address] [place] [address], [place] [address] May, [facility] [address] [id number] [address] [place] [address], [place] [address] May, [facility] [address] [id number] [address] [place] [address], [place] [address] Jan, [facility] [address] [id number] [address] [place] [address], [place] [address] Jan, [facility] [address] [id number] [address] [place] [address], [place] [address] Nov, [facility] [address] [id number] [address] [place] [address], [place] [address] Nov, [facility] [address] [id number] [address] [place] [address], [place] [address] Nov, [facility] [address] [id number] [address] [place] [address], [place] [address] Nov, [facility] [address] [id number] [address] [place] [address], [place] [address] Nov, [facility] [address] [id number] [address] [place] [address], [place] [address] Nov, [facility] [address] [id number] [address] [place] [address], [place] [address] Nov, [facility] [address] [id number] [address] [place] [address], [place] [address] Nov, [facility] [address] [id number] [address] [place] [address], [place] [address] Nov, [facility] [address] [id number] [address] [place] [address], [place] [address] Nov, [facility] [address] [id number] [address] [place] [address], [place] [address] Oct, [facility] [address] [id number] [address] [place] [address], [place] [address] Oct, [facility] [address] [id number] [address] [place] [address], [place] [address] Oct, [facility] [address] [id number] [address] [place] [address], [place] [address] Oct, [facility] [address] [id number] [address] [place] [address], [place] [address] Sep, [facility] [address] [id number] [address] [place] [address], [place] [address] Sep, [facility] [address] [id number] [address] [place] [address], [place] [address] Aug, [facility] [address] [id number] [address] [place] [address], [place] [address] Aug, [facility] [address] [id number] [address] [place] [address], [place] [address] Aug, [facility] [address] [id number] [address] [place] [address], [place] [address] Aug, [facility] [address] [id number] [address] [place] [address], [place] [address] Aug, [facility] [address] [id number] [address] [place] [address], [place] [address] Aug, [facility] [address] [id number] [address] [place] [address], [place] [address] Aug, [facility] [address] [id number] [address] [place] [address], [place] [address] Aug, [facility] [address] [id number] [address] [place] [address], [place] [address] Jul, [facility] [address] [id number] [address] [place] [address], [place] [address] Jul, [facility] [address] [id number] [address] [place] [address], [place] [address] Jul, [facility] [address] [address] [id number] [address] [place] [address], [place] [address] Jul, [facility] [address] [id number] [address] [place] [address], [place] [address] Jul, [facility] [address] [id number] [address] [place] [address], [place] [address] Jun, [facility] [address] [id number] [address] [place] [address], [place] [address] May, [facility] [address] [id number] [address] [place] [address], [place] [address] Apr, [facility] [address] [id number] [address] [place] [address], [place] [address] February, [facility] [address] [id number] [address] [place] [address], [place] [address] Jan, [facility] [address] [id number] [address] [place] [address], [place] [address] Jan, [facility] [address] [id number] [address] [place] [address], [place] [address] Dec, [facility] [address] [facility] [id number] [address] [place] [id number] Dec, [facility] [address] [facility] [id number] [address] [place] [address] Dec, [facility] [address] [facility] [id number] [address] [place] [address] Nov, [facility] [address] [facility] [id number] [address] [place] [id number] Nov, [facility] [address] [facility] [id number] [address] [place] [address] Nov, [facility] [address] [facility] [id number] [address] [place] [address] Nov, IMMUNIZATIONS No Known Immunizations SOCIAL HISTORY Never Assessed REASON FOR VISIT PLAN OF CARE VITAL SIGNS Height 62 in 2014 Weight 146.8 lbs 2014 Temperature 98.8 degrees Fahrenheit 2014 Heart Rate 88 bpm 2014 Respiratory Rate 20 2014 Blood pressure systolic 138 mmHg 2014 Blood pressure diastolic 88 mmHg 2014 MEDICATIONS Unknown Medications RESULTS No Results PROCEDURES [...] 02/2015 Surgical History coronary angiography Dr [facility]- normal EF, LV function,-minimal RCA blockage <20% [...]
--- OUTSIDE RECORDS SUMMARY | 2020-04-06 06:54 | XMS REPORT ---
Author Author Jermaine CAMPOS Organization [facility] Address [address] [place] [address] Care Team Providers Care Honey Blender Name Role Phone TIFFANIE CAMPOS Unavailable PROBLEMS Type Condition ICD9-CM Code [id number] Code Onset Dates Condition S tatus SNOMED Code Problem Chronic pain G89.29 Active 6217358 1 Problem CAD (coronary artery disease) I25.10 Active 93765910 Problem Diverticulosis of intestine without bleeding, unspecified intestinal tract location K57.90 Active 75869147 Problem Fatty liver K76.0 Active 00765140 7 Problem COPD (chronic obstructive pulmonary disease) wit h chronic bronchitis J44.9 Active 822451338 Problem Abdominal bloating R14.0 Active 1 32969141 Problem Bilateral carotid artery disease I77.9 Active 889474753 Problem Hyperlipemia E78.5 Active 2501605 4 Problem Gastroesophageal reflux disease without esophagitis K21.9 Active 051295531 Problem Chronic obstructive pulmonary disease, unspecified COPD ty pe J44.9 Active 98764885 Problem Non-rheumatic mitral regurgitation I34.0 Active 577586266 Problem Claudication I73.9 Active 9038877 6 Problem Degenerative disc disease, cervical M50.30 Active 26100722 Problem PAD (peripheral artery disease) I73.9 Active 889270585 Problem Benign essential hypertension I10 Active 5258761 Problem Pacemaker Z95.0 Active 489127173 Problem Claudication of both lower extremities I73.9 Active 775372384 Problem Chronic bronchitis J42 Active 6 7905136 Problem Tobacco abuse Z72.0 Active 974920 05 Problem Peripheral arterial disease I73.9 Ac tive 332020541 Problem Mixed hyperlipidemia E78.2 Active 122926174 Problem Other chronic pain G89.29 Active 8 2167042 Problem Diet-controlled diabetes mellitus E11.9 Active 986799628 ALLERGIES No Information ENCOUNTERS Encounter Location Date Diagnosis [facility] [address] [id number], [place] [id number] May, [facility] [place] [address] AVE [id number], [place] [id number] Mar, [facility] [address] [id number], [place] [id number] Mar, Facet arthritis of cervical region M47.8 12 and Cervical radiculopathy M54.12 [facility] [place] [address] AVE [id number], [place] [id number] February, Degenerative disc disease, cervical M50. 30 ; Facet arthritis of cervical region M47.812 ; Cervical radiculopathy M54.12 and Pacemaker Z95.0 [facility] [address] [id number], [place] [id number] February, [facility] [place] [address] AVE [id number], [place] [id number] Jan, [facility] [place] [address] A[address] [id number], [place] [id number] Sep, Diet-controlled diabetes mellitus E11.9 ; Benign essential hypertension I10 and Tobacco abuse Z72.0 [facility] [address] [id number], [place] [id number] Jul, Hyperlipemia E78.5 and CAD (coronary art janneth disease) I25.10 [facility] [place] [address] AVE [id number], [place] [id number] Jun, CAD (coronary artery disease) I25.10 and Hyperlipemia E78.5 [facility] [place] [address] AVE [id number], [place] [id number] Jun, New onset type 2 diabetes mellitus E11.9 ; S/P CABG (coronary artery bypass graft) Z95.1 ; Benign essential hypertension I10 ; Other chronic pain G89.29 and S/P cardiac pacemaker procedure Z95.0 [facility] [place] [address] A[address] [id number], [place] [id number] Jun, [facility] [address] [id number], [place] [id number] May, [facility] [address] [id number], [place] [id number] May, COPD (chronic obstructive pulmonary dise ase) with chronic bronchitis J44.9 ; Tobacco abuse Z72.0 and Tobacco abuse counseling Z71.6 [facility] [address] [id number], [place] [id number] Apr, CAD (coronary artery disease) I25.10 [facility] [address] [id number], [place] [id number] Mar, Peripheral arterial disease I73.9 [facility] [address] [id number], [place] [id number] February, Chronic pain G89.29 ; Hyperlipemia E78.5 and Benign essential hypertension I10 [facility] [address] [id number], [place] [id number] Jan, COPD (chronic obstructive pulmonary dise ase) with chronic bronchitis J44.9 [facility] [address] [id number], [place] [id number] Jan, [facility] [address] [id number], [place] [id number] Jan, Peripheral arterial disease I73.9 ; Carlo gn essential hypertension I10 ; Bilateral carotid artery disease I77.9 ; Claudication of both lower extremities I73.9 ; Mixed hyperlipidemia E78.2 ; Tobacco use Z72.0 and Non- rheumatic mitral regurgitation I34.0 [facility] [address] [id number], [place] [id number] Jan, RUQ pain R10.11 ; Gastroesophageal reflu x disease without esophagitis K21.9 and Change in stool R19.5 [facility] [address] [id number], [place] [id number] Jan, [facility] [address] [id number], [place] [id number] Jan, Neck pain M54.2 ; Benign essential hyper tension I10 ; COPD (chronic obstructive pulmonary disease) with chronic bronchitis J44.9 and Chronic obstructive pulmonary disease, unspecified COPD type J44.9 [facility] [address] [id number], [place] [id number] Jan, Chronic obstructive pulmonary disease, u nspecified COPD type J44.9 [facility] [address] [id number], [place] [id number] Dec, [facility] [address] [id number], [place] [id number] Dec, [facility] [id number], [place] [id number] Dec, COPD (chronic obstructive pulmonary dise ase) with chronic bronchitis J44.9 [facility] [address] [facility] [id number] [place] [address] Dec, [facility] [address] [facility] [id number] [place] [address] Dec, [facility] [address] [id number], [place] [id number] Nov, [facility] [address] [id number], [place] [id number] Nov, Benign essential hypertension I10 and CO PD (chronic obstructive pulmonary disease) with chronic bronchitis J44.9 [facility] [address] [id number], [place] [id number] Nov, Hyperlipemia E78.5 ; Benign essential hy pertension I10 ; COPD (chronic obstructive pulmonary disease) with chronic bronchitis J44.9 ; Encounter for immunization Z23 ; Gastroesophageal reflux disease without esophagitis K21.9 and Chronic pain G89.29 [facility] [address] [id number], [place] [id number] Oct, COPD (chronic obstructive pulmonary dise ase) with chronic bronchitis J44.9 and Chronic obstructive pulmonary disease, unspecified COPD type J44.9 [facility] [address] [id number] [place] [id number] Oct, COPD (chronic obstructive pulmonary dise ase) with chronic bronchitis J44.9 and Chronic obstructive pulmonary disease, unspecified COPD type J44.9 [facility] [address] [id number] [place] [id number] Oct, COPD (chronic obstructive pulmonary dise ase) with chronic bronchitis J44.9 and Chronic obstructive pulmonary disease, unspecified COPD type J44.9 [facility] [address] [id number] [place] [id number] Oct, Benign essential hypertension I10 and Ne ck pain M54.2 [facility] [address] [id number], [place] 762143451 Sep, PAD (peripheral artery disease) I73.9 ; Claudication of both lower extremities I73.9 ; Bilateral carotid artery disease I77.9 ; Benign essential hypertension I10 ; Hyperlipemia E78.5 and Dyspnea on exertion R06.09 [facility] [address] [id number], [place] [id number] Aug, Benign essential hypertension I10 ; Vannessa roesophageal reflux disease without esophagitis K21.9 and Cervical radiculopathy M54.12 [facility] [address] [id number], [place] [id number] Aug, Gastroesophageal reflux disease without esophagitis K21.9 [facility] [address] [id number], [place] [id number] Aug, COPD (chronic obstructive pulmonary dise ase) with chronic bronchitis J44.9 [facility] [address] [id number] [place] [id number] Jul, [facility] [address] [id number], [place] 943183663 Jul, Benign essential hypertension I10 [facility] [address] [id number], [place] [id number] Jul, [facility] [address] [id number] [place] 634231353 Jul, COPD (chronic obstructive pulmonary dise ase) with chronic bronchitis J44.9 [facility] [address] [id number] [place] 185044693 Jul, Neck pain M54.2 [facility] [address] [id number] [place] [id number] Jun, Claudication of both lower extremities I 73.9 ; PAD (peripheral artery disease) I73.9 ; Bilateral carotid artery disease I77.9 ; CAD (coronary artery disease) I25.10 ; Tobacco abuse Z72.0 ; Benign essential hypertension I10 ; Hyperlipemia E78.5 and Non-rheumatic mitral valve stenosis I34.2 [facility] [address] [id number] [place] 745206480 Jun, Chronic obstructive pulmonary disease, u nspecified COPD type J44.9 [facility] [address] [id number], [place] [id number] May, [facility] [address] [id number], [place] [id number] May, Chronic obstructive pulmonary disease, u nspecified COPD type J44.9 [facility] [address] [id number], [place] [id number] May, Neck pain M54.2 ; Chronic obstructive pu lmonary disease, unspecified COPD type J44.9 and Cervical radiculopathy M54.12 [facility] [address] [id number], [place] [id number] May, [facility] [address] [id number] [place] [id number] Apr, [facility] [address] [id number], [place] [id number] Apr, Gastroesophageal reflux disease without esophagitis K21.9 [facility] [address] [id number], [place] [id number] Apr, COPD (chronic obstructive pulmonary dise ase) with chronic bronchitis J44.[address] [facility] [address] [id number] [place] [id number] Apr, [facility] [address] [id number] [place] [id number] Apr, [facility] [address] [id number] [place] [id number] Apr, COPD (chronic obstructive pulmonary dise ase) with chronic bronchitis J44.9 ; Benign essential hypertension I10 ; Tobacco abuse counseling Z71.6 and Hyperlipemia E78.[address] [facility] [address] [id number] [place] [id number] February, COPD (chronic obstructive pulmonary dise ase) with chronic bronchitis J44.[address] [facility] [address] [id number], [place] [id number] Jan, [facility] [address] [id number], [place] 628841619 Jan, COPD (chronic obstructive pulmonary dise ase) with chronic bronchitis J44.[address] [facility] [address] [id number], [place] [id number] Oct, COPD (chronic obstructive pulmonary dise ase) with chronic bronchitis J44.[address] [facility] [address] [id number], [place] [id number] Oct, Winter itch L29.[address] [facility] [address] [id number], [place] [id number] Oct, COPD (chronic obstructive pulmonary dise ase) with chronic bronchitis J44.9 ; Benign essential hypertension I10 ; Tobacco abuse Z72.0 and Gastroesophageal reflux disease without esophagitis K21.[address] [facility] [address] [id number] [place] [id number] Sep, Benign essential hypertension I10 [facility] [address] [id number], [place] [id number] Aug, [facility] [address] [id number], [place] [id number] Jul, [facility] [address] [id number], [place] [id number] Apr, [facility] [address] [place] [address] AVE [id number], [place] [id number] Apr, Abdominal bloating R14.0 ; Fatty liver K 76.0 ; Diverticulosis of intestine without bleeding, unspecified intestinal tract location K57.90 ; Chronic obstructive pulmonary disease, unspecified COPD type J44.9 and Benign essential hypertension I10 [facility] [address] [id number], [place] [id number] Apr, Mild early onset dysthymic disorder, in partial remission, with melancholic features, 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 [facility] [address] [place] [address] AV [id number], [place] [id number] Mar, Abdominal muscle strain, initial encount er S39.011A [facility] [address] [place] [address] AVE [id number], [place] [id number] Jan, Pancreatitis K85.9 ; Abdominal bloating R14.0 ; Chronic bronchitis J42 and Chronic pain G89.29 [facility] [address] [place] [address] AVE [id number], [place] [id number] Nov, [facility] [address] [place] [address] A[address] [id number], [place] [id number] Nov, [facility] [place] [address] AVE [id number], [place] 838203821 Nov, Chronic bronchitis J42 ; Tobacco abuse Z 72.0 and Tobacco abuse counseling Z71.6 [facility] [address] [id number], [place] [id number] Oct, [facility] [place] [address] A[address] [id number], [place] [id number] Oct, Chronic bronchitis J42 ; Tobacco abuse Z 72.0 and Benign essential hypertension I10 [facility] [place] [address] A[address] [id number], [place] [id number] Oct, Chronic bronchitis J42 ; Tobacco abuse Z 72.0 ; Tobacco abuse counseling Z71.6 ; Benign essential hypertension I10 and Hyperlipemia E78.5 [facility] [address] [facility] [id number] [place] [address] Sep, [facility] [address] [facility] [address] [id number], [place] [id number] Jul, [facility] [address] [place] [id number] [address] [place] [address] Jul, Essential (primary) hyperten aida I10 [place] [address] [place] [id number] [address] [place] [address] Jul, [facility] [address] [place] [address] A[address] [id number], [place] [id number] Jul, [id number] [place] [address] [id number] Jun, Benign essential hypertension 401.1 ; Ge neralized edema 782.3 ; Chronic pain 338.29 and Hyperlipemia 272.[address] [id number], [place] [id number] May, Upper respiratory infection 465.9 and Co ugh 786.[address] [id number], [place] [id number] Mar, Upper respiratory infection 465.9 ; 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 and Cough 786.[address] [id number], [place] 669123098 February, [address] [id number], [place] [id number] February, Status post bilateral carotid endarterec vito V45.89 ; CAD (coronary artery disease) 414.00 ; Benign essential hypertension 401.1 ; Hyperlipemia 272.4 ; Tobacco abuse 305.1 ; Tobacco abuse counseling V65.42 and Chronic bronchitis 491.9 [facility] [address] [id number] [address] [place] [address], [place] [address] 14 Jan, 2015 [facility] [address] [id number] [address] [place] [address], [place] [address] 13 Jan, 2015 [facility] [address] [id number] [address] [place] [address], [place] [address] Dec, [facility] [address] [id number] [address] [place] [address], [place] [address] Dec, [facility] [address] [id number] [address] [place] [address], [place] [address] Nov, [facility] [address] [id number] [address] [place] [address], [place] [address] Nov, [facility] [address] [id number] [address] [place] [address], [place] [address] Nov, [facility] [address] [id number] [address] [place] [address], [place] [address] Nov, [facility] [address] [id number] [address] [place] [address], [place] [address] Nov, [facility] [address] [id number] [address] [place] [address], [place] [address] Nov, [facility] [address] [id number] [address] [place] [address], [place] [address] Nov, [facility] [address] [id number] [address] [place] [address], [place] [address] Nov, [facility] [address] [id number] [address] [place] [address], [place] [address] Nov, [facility] [address] [id number] [address] [place] [address], [place] [address] Oct, [facility] [address] [id number] [address] [place] [address], [place] [address] Oct, [facility] [address] [id number] [address] [place] [address] Oct, [facility] [address] [id number] [address] [place] [address], [place] [address] Oct, [facility] [address] [id number] [address] [place] [address], [place] [address] Oct, [facility] [address] [id number] [address] [place] [address], [place] [address] Oct, [facility] [address] [id number] [address] [place] [address] Oct, [facility] [address] [id number] [address] [place] [address], [place] [address] Oct, [facility] [address] [id number] [address] [place] [address], [place] [address] Oct, [facility] [address] [id number] [address] [place] [address], [place] [address] Oct, [facility] [id number] [place] [address] S [id number] Oct, [facility] [address] [id number] [address] [place] [address], [place] [address] Oct, [facility] [address] [id number] [address] [place] [address], [place] [address] Sep, [facility] [address] [id number] [address] [place] [address] Sep, [facility] [address] [id number] [address] [place] [address] Aug, [facility] [address] [id number] [address] [place] [address], [place] [address] Aug, [facility] [address] [id number] [address] [place] [address], [place] [address] Aug, [facility] [address] [id number] [address] [place] [address], [place] [address] Aug, [facility] [address] [id number] [address] [place] [address], [place] [address] Jul, [facility] [address] [id number] [address] [place] [address], [place] [address] Jul, [facility] [address] [id number] [address] [place] [address], [place] [address] Jun, [facility] [address] [id number] [address] [place] [address], [place] [address] Jun, [facility] [address] [id number] [address] [place] [address], [place] [address] May, [facility] [address] [id number] [address] [place] [address], [place] [address] May, [facility] [address] [id number] [address] [place] [address], [place] [address] May, [facility] [address] [id number] [address] [place] [address], [place] [address] May, [facility] [address] [id number] [address] [place] [address], [place] [address] Jan, [facility] [address] [id number] [address] [place] [address], [place] [address] Jan, [facility] [address] [id number] [address] [place] [address], [place] [address] Nov, [facility] [address] [id number] [address] [place] [address], [place] [address] Nov, [facility] [address] [id number] [address] [place] [address], [place] [address] Nov, [facility] [address] [id number] [address] [place] [address], [place] [address] Nov, [facility] [address] [id number] [address] [place] [address], [place] [address] Nov, [facility] [address] [id number] [address] [place] [address], [place] [address] Nov, [facility] [address] [id number] [facility] [place] [address] Nov, [facility] [address] [id number] [address] [place] [address], [place] [address] Nov, [facility] [address] [id number] [address] [place] [address], [place] [address] Nov, [facility] [address] [id number] [address] [place] [address], [place] [address] Nov, [facility] [address] [id number] [address] [place] [address], [place] [address] Oct, [facility] [address] [id number] [address] [place] [address], [place] [address] Oct, [facility] [address] [id number] [address] [place] [address], [place] [address] Oct, [facility] [address] [id number] [address] [place] [address], [place] [address] Oct, [facility] [address] [id number] [address] [place] [address], [place] [address] Sep, [facility] [address] [id number] [address] [place] [address], [place] [address] Sep, [facility] [address] [id number] [address] [place] [address], [place] [address] Aug, [facility] [address] [id number] [address] [place] [address], [place] [address] Aug, [facility] [address] [id number] [address] [place] [address], [place] [address] Aug, [facility] [address] [id number] [address] [place] [address], [place] [address] Aug, [facility] [address] [id number] [address] [place] [address], [place] [address] Aug, [facility] [address] [id number] [address] [place] [address], [place] [address] Aug, [facility] [address] [id number] [address] [place] [address], [place] [address] Aug, [facility] [address] [id number] [address] [place] [address], [place] [address] Aug, [facility] [address] [id number] [address] [place] [address], [place] [address] Jul, [facility] [address] [id number] [address] [place] [address], [place] [address] Jul, [facility] [address] [id number] [address] [place] [address], [place] [address] Jul, [facility] [address] [id number] [address] [place] [address], [place] [address] Jul, [facility] [address] [id number] [address] [place] [address], [place] [address] Jul, [facility] [address] [id number] [address] [place] [address], [place] [address] Jun, [facility] [address] [id number] [address] [place] [address], [place] [address] May, [facility] [address] [id number] [address] [place] [address], [place] [address] Apr, [facility] [address] [id number] [address] [place] [address], [place] [address] February, [facility] [address] [id number] [address] [place] [address], [place] [address] Jan, [facility] [address] [id number] [address] [place] [address], [place] [id number] Jan, [facility] [address] [id number] [address] [place] [address], [place] [id number] Dec, [facility] [address] [id number] [address] [place] [address], [place] [id number] Dec, [facility] [address] [facility] [id number] [place] [phone] Dec, [facility] [address] [facility] [id number] [place] [phone] Nov, [facility] [address] [facility] [id number] [place] [phone] Nov, [facility] [address] [facility] [id number] [place] [phone] Nov, [facility] [address] [facility] [id number] [place] [phone] Nov, IMMUNIZATIONS No Known Immunizations SOCIAL HISTORY [...] chronic neck and back pain Medical History MT x's 2 1996 and 2011 Medical History [...] Surgical History coronary angiography Dr Mane thakur [facility]- normal EF, LV function,-minimal RCA blockage <20% 1996 Surgical History EGD-Dr.Makdisi BensonByrd-mild erosive esophagitis, mild nonspecific bulbar duodenitis 1996 Surgical History carotid endarterectomy, right- [facility] 01/14 015 Surgical History Heart cath with [facility] 2013 Surgical History Colonoscopy- tubular adenoma , hyperplastic polyp- repeat Colonoscopy 12/2016 Surgical History Bypass Surgery- CABG and Pacemaker 06/06 Hospitalization History heart attack 1996 Hospitalization History slurred speech, fever, left arm pain Sharifa Shah February 2015 Hospitalization History Pancreatitis 12/2015 Hospitalization History CABG 05/2018
--- OUTSIDE RECORDS SUMMARY | 2020-04-06 06:54 | XMS REPORT ---
Author Author Jermaine Bangura Organization [facility] Address [address] [place] [address] Care Team Providers Care Qa Test Lead Name Role Phone SIRI Bangura Unavailable PROBLEMS Type Condition ICD9-CM Code BON02-RD Code Onset Dates Condition S tatus SNOMED Code Problem Chronic pain G89.29 Active 6878991 1 Problem CAD (coronary artery disease) I25.10 Active 16378066 Problem Diverticulosis of intestine without bleeding, unspecified intestinal tract location K57.90 Active 13496167 Problem Fatty liver K76.0 Active 30118258 7 Problem COPD (chronic obstructive pulmonary disease) wit h chronic bronchitis J44.9 Active 033339610 Problem Abdominal bloating R14.0 Active 1 88390582 Problem Bilateral carotid artery disease I77.9 Active 811974428 Problem Hyperlipemia E78.5 Active 4754379 4 Problem Gastroesophageal reflux disease without esophagitis K21.9 Active 627845847 Problem Chronic obstructive pulmonary disease, unspecified COPD ty pe J44.9 Active 93733040 Problem Non-rheumatic mitral regurgitation I34.0 Active 311078231 Problem Claudication I73.9 Active 1311002 6 Problem Degenerative disc disease, cervical M50.30 Active 40506591 Problem PAD (peripheral artery disease) I73.9 Active 572809226 Problem Benign essential hypertension I10 Active 7944879 Problem Pacemaker Z95.0 Active 032191140 Problem Claudication of both lower extremities I73.9 Active 164986745 Problem Chronic bronchitis J42 Active 6 7785136 Problem Tobacco abuse Z72.0 Active 691105 05 Problem Peripheral arterial disease I73.9 Ac tive 810452950 Problem Mixed hyperlipidemia E78.2 Active 153045180 Problem Other chronic pain G89.29 Active 8 4673277 Problem Diet-controlled diabetes mellitus E11.9 Active 912912323 ALLERGIES No Information ENCOUNTERS Encounter Location Date Diagnosis [address] [id number] [place] [id number] Mar, [facility] [address] [address] [id number] [place] [id number] Mar, Facet arthritis of cervical region M47.8 12 and Cervical radiculopathy M54.12 [facility] [address] [place] [address] A[address] [id number] [place] [id number] February, Degenerative disc disease, cervical M50. 30 ; Facet arthritis of cervical region M47.812 ; Cervical radiculopathy M54.12 and Pacemaker Z95.0 [facility] [address] [place] [address] [address] [id number] [place] [id number] February, [facility] [address] [place] [address] [address] [id number] [place] [id number] Jan, [facility] [address] [place] [address] [address] [id number] [place] [id number] Sep, Diet-controlled diabetes mellitus E11.9 ; Benign essential hypertension I10 and Tobacco abuse Z72.0 [facility] [address] [id number] [place] [id number] Jul, Hyperlipemia E78.5 and CAD (coronary art janneth disease) I25.10 [facility] [address] [place] [address] A[address] [id number] [place] [address] Jun, CAD (coronary artery disease) I25.10 and Hyperlipemia E78.5 [facility] [address] [place] [address] [address] [id number] [place] [address] Jun, New onset type 2 diabetes mellitus E11.9 ; S/P CABG (coronary artery bypass graft) Z95.1 ; Benign essential hypertension I10 ; Other chronic pain G89.29 and S/P cardiac pacemaker procedure Z95.0 [facility] [address] [address] [id number] [place] [id number] Jun, [facility] [address] [id number] [place] [id number] May, [facility] [address] [id number] [place] [address] May, COPD (chronic obstructive pulmonary dise ase) with chronic bronchitis J44.9 ; Tobacco abuse Z72.0 and Tobacco abuse counseling Z71.6 [facility] [address] [id number] [place] [id number] Apr, CAD (coronary artery disease) I25.10 [facility] [address] [place] [address] [address] [id number] [place] [address] Mar, Peripheral arterial disease I73.9 [facility] [address] [place] [address] [address] [id number] [place] [id number] February, Chronic pain G89.29 ; Hyperlipemia E78.5 and Benign essential hypertension I10 [facility] [address] [id number] [place] [id number] Jan, COPD (chronic obstructive pulmonary dise ase) with chronic bronchitis J44.9 [facility] [address] [place] [address] [address] [id number] [place] [id number] Jan, [facility] [address] [place] [address] [address] [id number] [place] [id number] Jan, Peripheral arterial disease I73.9 ; Carlo gn essential hypertension I10 ; Bilateral carotid artery disease I77.9 ; Claudication of both lower extremities I73.9 ; Mixed hyperlipidemia E78.2 ; Tobacco use Z72.0 and Non- rheumatic mitral regurgitation I34.0 [facility] [address] [place] [address] [address] [id number] [place] [id number] Jan, RUQ pain R10.11 ; Gastroesophageal reflu x disease without esophagitis K21.9 and Change in stool R19.5 [facility] [address] [id number] [place] [address] Jan, [facility] [address] [id number] [place] [id number] Jan, Neck pain M54.2 ; Benign essential hyper tension I10 ; COPD (chronic obstructive pulmonary disease) with chronic bronchitis J44.9 and Chronic obstructive pulmonary disease, unspecified COPD type J44.9 [facility] [address] [id number] [place] [address] Jan, Chronic obstructive pulmonary disease, u nspecified COPD type J44.9 [facility] [address] [id number] [place] [id number] Dec, [facility] [address] [id number] [place] [id number] Dec, [facility] [address] [id number] [place] [id number] Dec, COPD (chronic obstructive pulmonary dise ase) with chronic bronchitis J44.9 [facility] [address] [facility] [id number] [address] [place] [phone] Dec, [facility] [address] [facility] [id number] [address] [place] [phone] Dec, [facility] [address] [id number] [place] [id number] Nov, [facility] [address] [id number] [place] [id number] Nov, Benign essential hypertension I10 and CO PD (chronic obstructive pulmonary disease) with chronic bronchitis J44.9 [facility] [address] [id number] [place] [address]01[address] Nov, Hyperlipemia E78.5 ; Benign essential hy pertension I10 ; COPD (chronic obstructive pulmonary disease) with chronic bronchitis J44.9 ; Encounter for immunization Z23 ; Gastroesophageal reflux disease without esophagitis K21.9 and Chronic pain G89.29 [facility] [address] [id number] [place] [id number] Oct, COPD (chronic obstructive pulmonary dise ase) with chronic bronchitis J44.9 and Chronic obstructive pulmonary disease, unspecified COPD type J44.9 [facility] [address] [id number] [place] [id number] Oct, COPD (chronic obstructive pulmonary dise ase) with chronic bronchitis J44.9 and Chronic obstructive pulmonary disease, unspecified COPD type J44.9 [facility] [address] [id number] [place] [id number] Oct, COPD (chronic obstructive pulmonary dise ase) with chronic bronchitis J44.9 and Chronic obstructive pulmonary disease, unspecified COPD type J44.9 [facility] [address] [id number] [place] [id number] Oct, Benign essential hypertension I10 and Ne ck pain M54.2 [facility] [address] [id number] [place] 36940[address]4 Sep, PAD (peripheral artery disease) I73.9 ; Claudication of both lower extremities I73.9 ; Bilateral carotid artery disease I77.9 ; Benign essential hypertension I10 ; Hyperlipemia E78.5 and Dyspnea on exertion R06.09 [facility] [address] [id number] [place] [id number] Aug, Benign essential hypertension I10 ; Vannessa roesophageal reflux disease without esophagitis K21.9 and Cervical radiculopathy M54.12 [facility] [address] [id number] [place] [id number] Aug, Gastroesophageal reflux disease without esophagitis K21.9 [facility] [address] [id number] [place] [id number] Aug, COPD (chronic obstructive pulmonary dise ase) with chronic bronchitis J44.9 [facility] [address] [id number] [place] [id number] Jul, [facility] [address] [id number] [place] [address]3887[address] Jul, Benign essential hypertension I10 [facility] [address] [id number] [place] [address] Jul, [facility] [address] [id number] [place] [id number] Jul, COPD (chronic obstructive pulmonary dise ase) with chronic bronchitis J44.9 [facility] [address] [id number] [place] [address] Jul, Neck pain M54.2 [facility] [address] [id number] [place] [id number] Jun, Claudication of both lower extremities I 73.9 ; PAD (peripheral artery disease) I73.9 ; Bilateral carotid artery disease I77.9 ; CAD (coronary artery disease) I25.10 ; Tobacco abuse Z72.0 ; Benign essential hypertension I10 ; Hyperlipemia E78.5 and Non-rheumatic mitral valve stenosis I34.2 [facility] [address] [id number] [place] [id number] Jun, Chronic obstructive pulmonary disease, u nspecified COPD type J44.9 [facility] [address] [id number] [place] [id number] May, [facility] [address] [id number] [place] [id number] May, Chronic obstructive pulmonary disease, u nspecified COPD type J44.9 [facility] [address] [id number] [place] [id number] May, Neck pain M54.2 ; Chronic obstructive pu lmonary disease, unspecified COPD type J44.9 and Cervical radiculopathy M54.12 [facility] [address] [id number] [place] [id number] May, [facility] [address] [id number] [place] [id number] Apr, [facility] [address] [id number] [place] 984216[address] Apr, Gastroesophageal reflux disease without esophagitis K21.9 [facility] [address] [id number] [place] [id number] Apr, COPD (chronic obstructive pulmonary dise ase) with chronic bronchitis J44.9 [facility] [address] [id number] [place] [id number] Apr, [facility] [address] [id number] [place] [address]22[address] Apr, [facility] [address] [id number] [place] [id number] Apr, COPD (chronic obstructive pulmonary dise ase) with chronic bronchitis J44.9 ; Benign essential hypertension I10 ; Tobacco abuse counseling Z71.6 and Hyperlipemia E78.[address] [facility] [address] [id number] [place] [id number] February, COPD (chronic obstructive pulmonary dise ase) with chronic bronchitis J44.[address] [facility] [address] [id number] [place] 905524697 Jan, [facility] [address] [id number] [place] [id number] Jan, COPD (chronic obstructive pulmonary dise ase) with chronic bronchitis J44.[address] [facility] [address] [id number] [place] [id number] Oct, COPD (chronic obstructive pulmonary dise ase) with chronic bronchitis J44.[address] [facility] [address] [id number] [place] [id number] Oct, Winter itch L29.[address] [facility] [address] [id number] [place] [id number] Oct, COPD (chronic obstructive pulmonary dise ase) with chronic bronchitis J44.9 ; Benign essential hypertension I10 ; Tobacco abuse Z72.0 and Gastroesophageal reflux disease without esophagitis K21.[address] [facility] [address] [id number] [place] 6606[address] Sep, Benign essential hypertension I[address] [facility] [address] [id number] [place] [id number] Aug, [facility] [address] [id number] [place] [id number] Jul, [facility] [address] [id number] [place] [id number] Apr, [facility] [address] [place] [address] A[address] [id number] [place] [id number] Apr, Abdominal bloating R14.0 ; Fatty liver K 76.0 ; Diverticulosis of intestine without bleeding, unspecified intestinal tract location K57.90 ; Chronic obstructive pulmonary disease, unspecified COPD type J44.9 and Benign essential hypertension I10 [facility] [address] [id number] [place] [id number] Apr, Mild early onset dysthymic disorder, in partial remission, with melancholic features, 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 [facility] [address] [id number] [place] [id number] Mar, Abdominal muscle strain, initial encount er S39.011A [facility] [address] [place], [place] [address] [id number] [place] 393195586 Jan, Pancreatitis K85.9 ; Abdominal bloating R14.0 ; Chronic bronchitis J42 and Chronic pain G89.29 [facility] [employer] [facility] [address] [id number] [place] [id number] Nov, [facility] [address] [id number] [place] [id number] Nov, [facility] [address] [id number] [place] [id number] Nov, Chronic bronchitis J42 ; Tobacco abuse Z 72.0 and Tobacco abuse counseling Z71.6 [facility] [id number] [place] [id number] Oct, [facility] [id number] [place] 658480135 Oct, Chronic bronchitis J42 ; Tobacco abuse Z 72.0 and Benign essential hypertension I10 [facility] [address] [id number] [place] [id number] Oct, Chronic bronchitis J42 ; Tobacco abuse Z 72.0 ; Tobacco abuse counseling Z71.6 ; Benign essential hypertension I10 and Hyperlipemia E78.5 [facility] [address] [facility] [id number] [address] [place] [address] Sep, [facility] [address] [id number] [place] [id number] Jul, [facility] [address] [place] [id number] [address] [place] [address] Jul, Essential (primary) hyperten aida I10 [facility] [address] [facility] [id number] [address] [place] [address] Jul, [facility] [address] [facility] [address] [id number] [place] [id number] Jul, [facility] [address] [facility] [address] [id number] [place] [id number] Jun, Benign essential hypertension 401.1 ; Ge neralized edema 782.3 ; Chronic pain 338.29 and Hyperlipemia [address] [id number] [place] 035053198 May, Upper respiratory infection 465.9 and Co ugh 786.[address] [id number] [place] [address] [id number] Mar, Upper respiratory infection 465.9 ; 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 and Cough 786.[address] [id number] [place] [id number] February, [facility] [address] [id number] [place] [id number] February, Status post bilateral carotid endarterec vito V45.89 ; CAD (coronary artery disease) 414.00 ; Benign essential hypertension 401.1 ; Hyperlipemia 272.4 ; Tobacco abuse 305.1 ; Tobacco abuse counseling V65.42 and Chronic bronchitis 491.9 [facility] [address] [facility] [id number] [address] [place] [address] Jan, [facility] [address] [id number] [address] [place] [address], [place] [address] Jan, [facility] [address] [id number] [address] [place] [address], [place] [address] Dec, [facility] [address] [id number] [address] [place] [address], [place] [address] Dec, [facility] [address] [id number] [address] [place] [address], [place] [address] Nov, 2014 [facility] [address] [id number] [address] [place] [address], [place] [address] Nov, [facility] [address] [id number] [address] [place] [address], [place] [address] Nov, [facility] [address] [id number] [address] [place] [address], [place] [address] Nov, [facility] [address] [id number] [address] [place] [address], [place] [address] Nov, [facility] [address] [id number] [address] [place] [address], [place] [address] Nov, [facility] [address] [id number] [address] [place] [address], [place] [address] Nov, [facility] [address] [id number] [address] [place] [address], [place] [address] Nov, [facility] [address] [id number] [address] [place] [phone] Nov, [facility] [address] [id number] [address] [place] [address], [place] [address] Oct, [facility] [address] [id number] [address] [place] [address], [place] [address] Oct, [facility] [address] [id number] [address] [place] [address], [place] [address] Oct, [facility] [address] [id number] [address] [place] [address] Oct, [facility] [address] [id number] [address] [place] [address], [place] [address] Oct, [facility] [address] [id number] [address] [place] [address] Oct, [facility] [address] [id number] [address] [place] [address], [place] [address] Oct, [facility] [address] [id number] [address] [place] [address] Oct, [facility] [address] [id number] [address] [place] [address], [place] [address] Oct, [facility] [address] [id number] [address] [place] [address] Oct, [facility] [address] [id number] [place], [facility] [id number] Oct, [facility] [address] [id number] [address] [place] [phone] Oct, [facility] [address] [id number] [address] [place] [phone] Sep, [facility] [address] [id number] [address] [place] [phone] Sep, [facility] [address] [id number] [address] [place] [address] Aug, [facility] [address] [id number] [address] [place] [phone] Aug, [facility] [address] [id number] [address] [place] [address], [place] [address] Aug, [facility] [address] [id number] [address] [place] [phone] Aug, [facility] [address] [id number] [address] [place] [address], [place] [address] Jul, [facility] [address] [id number] [address] [place] [address], [place] [address] Jul, [facility] [address] [id number] [address] [place] [address], [place] [address] Jun, [facility] [address] [id number] [address] [place] [address], [place] [address] Jun, [facility] [address] [id number] [address] [place] [address], [place] [address] May, [facility] [address] [id number] [address] [place] [address], [place] [address] May, [facility] [address] [id number] [address] [place] [address], [place] [address] May, [facility] [address] [id number] [address] [place] [address], [place] [address] May, [facility] [address] [id number] [address] [place] [address], [place] [address] Jan, [facility] [address] [id number] [address] [place] [address], [place] [address] Jan, [facility] [address] [id number] [address] [place] [address], [place] [address] Nov, [facility] [address] [id number] [address] [place] [address], [place] [address] Nov, [facility] [address] [id number] [address] [place] [address], [place] [address] Nov, [facility] [address] [id number] [address] [place] [address], [place] [address] Nov, [facility] [address] [id number] [address] [place] [address], [place] [address] Nov, [facility] [address] [id number] [address] [place] [address], [place] [address] Nov, [facility] [address] [id number] [address] [place] [address], [place] [address] Nov, [facility] [address] [id number] [address] [place] [address], [place] [address] Nov, [facility] [address] [id number] [address] [place] [address], [place] [address] Nov, [facility] [address] [id number] [address] [place] [address], [place] [address] Nov, [facility] [address] [id number] [address] [place] [address], [place] [id number] Oct, [facility] [address] [id number] [address] [place] [address], [place] [id number] Oct, [facility] [address] [id number] [address] [place] [address], [place] [id number] Oct, [facility] [address] [id number] [address] [place] [address], [place] [id number] Oct, [facility] [address] [id number] [address] [place] [address], [place] [id number] Sep, [facility] [address] [id number] [address] [place] [address], [place] [id number] Sep, [facility] [address] [id number] [address] [place] [address], [place] [id number] Aug, [facility] [address] [id number] [address] [place] [address], [place] [id number] Aug, [facility] [address] [id number] [address] [place] [address], [place] [id number] Aug, [facility] [address] [id number] [address] [place] [address], [place] [id number] Aug, [facility] [address] [id number] [address] [place] [address], [place] [id number] Aug, [facility] [address] [id number] [address] [place] [address], [place] [address] Aug, [facility] [address] [id number] [address] [place] [address], [place] [address] Aug, [facility] [address] [id number] [address] [place] [address], [place] [id number] Aug, [facility] [address] [id number] [address] [place] [address], [place] [id number] Jul, [facility] [address] [id number] [address] [place] [address], [place] [id number] Jul, [facility] [address] [id number] [address] [place] [address], [place] [id number] Jul, [facility] [address] [id number] [address] [place] [address], [place] [id number] Jul, [facility] [address] [id number] [address] [place] [address], [place] [id number] Jul, [facility] [address] [id number] [address] [place] [address], [place] [id number] Jun, [facility] [address] [id number] [address] [place] [address], [place] [id number] May, [facility] [address] [id number] [address] [place] [address], [place] [id number] Apr, [facility] [address] [id number] [address] [place] [address], [place] [phone] February, [facility] [address] [id number] [address] [place] [address], [place] [id number] Jan, [facility] [address] [id number] [address] [place] [address], [place] [id number] Jan, [facility] [address] [id number] [address] [place] [address], [place] [id number] Dec, [facility] [address] [id number] [address] [place] [address], [place] [id number] Dec, [facility] [address] [id number] [address] [place] [address], [place] [id number] Dec, [facility] [address] [facility] [id number] [address] [place] [id number] Nov, [facility] [address] [facility] [id number] [address] [place] [id number] Nov, [facility] [address] [facility] [id number] [address] [place] [id number] Nov, [facility] [address] [facility] [id number] [address] [place] [phone] Nov, IMMUNIZATIONS No Known Immunizations SOCIAL HISTORY [...] Medical History CABG and Pacemaker 05/2018 ([place]) Surgical History carotid endarterectomy, left side of nec k 02/2015 Surgical History coronary angiography Dr Mane thakur [facility]- normal EF, LV function,-minimal RCA blockage <20% 1996 [facility]osive es[facility], mild nonspecific bulbar duodenitis 1996 [...]
--- OUTSIDE RECORDS SUMMARY | 2020-04-06 06:54 | XMS REPORT ---
Author Author Jermaine Aponte Doctor Organization [facility] Address Unknown Phone Unavailable Care Team Providers Care [employer] Pur[employer] Name Role Phone Migration, Doctor Unavailable Unavailable PROBLEMS Type Condition ICD9-CM Code AOM29-JR Code Onset Dates Condition S tatus SNOMED Code Problem Chronic pain G89.29 Active 4495589 1 Problem CAD (coronary artery disease) I25.10 Active 35698421 Problem Diverticulosis of intestine without bleeding, unspecified intestinal tract location K57.90 Active 72871176 Problem Fatty liver K76.0 Active 46883769 7 Problem COPD (chronic obstructive pulmonary disease) wit h chronic bronchitis J44.9 Active 255163632 Problem Abdominal bloating R14.0 Active 1 45702194 Problem Bilateral carotid artery disease I77.9 Active 200788612 Problem Hyperlipemia E78.5 Active 6747682 4 Problem Gastroesophageal reflux disease without esophagitis K21.9 Active 476298737 Problem Chronic obstructive pulmonary disease, unspecified COPD ty pe J44.9 Active 52039926 Problem Non-rheumatic mitral regurgitation I34.0 Active 811646185 Problem Claudication I73.9 Active 0030704 6 Problem Degenerative disc disease, cervical M50.30 Active 40309031 Problem PAD (peripheral artery disease) I73.9 Active 859784188 Problem Benign essential hypertension I10 Active 5006185 Problem Pacemaker Z95.0 Active 318542755 Problem Claudication of both lower extremities I73.9 Active 756303750 Problem Chronic bronchitis J42 Active 6 3916584 Problem Tobacco abuse Z72.0 Active 755694 05 Problem Peripheral arterial disease I73.9 Ac tive 312835183 Problem Mixed hyperlipidemia E78.2 Active 207045030 Problem Other chronic pain G89.29 Active 8 8228286 Problem Diet-controlled diabetes mellitus E11.9 Active 021368098 ALLERGIES No Information ENCOUNTERS Encounter Location Date Diagnosis [facility] [address] [id number] [place], [place] [id number] Mar, [facility] [address] [address] [id number], [place] [id number] Mar, Facet arthritis of cervical region M47.8 12 and Cervical radiculopathy M54.12 [facility] [employer] [address] [place] [address] AVE [id number], [place] [address]14619[address] February, Degenerative disc disease, cervical M50. 30 ; Facet arthritis of cervical region M47.812 ; Cervical radiculopathy M54.12 and Pacemaker Z95.0 [facility] [address] [id number], [place] [id number] February, [facility] [employer] [address] [place] [address] A[address] [id number], [place] 684649969 Jan, [facility] [employer] [address] [place] [address] AVE [id number], [place] 723483455 Sep, Diet-controlled diabetes mellitus E11.9 ; Benign essential hypertension I10 and Tobacco abuse Z72.0 [facility] [address] [facility] [address] [id number], [place] [id number] Jul, Hyperlipemia E78.5 and CAD (coronary art janneth disease) I25.10 [facility] [employer] [address] [place] [address] AVE [id number], [place] 845793941 Jun, CAD (coronary artery disease) I25.10 and Hyperlipemia E78.5 [facility] [employer] [address] [place] [address] A[address] [id number], [place] [address]64275031 Jun, New onset type 2 diabetes mellitus E11.9 ; S/P CABG (coronary artery bypass graft) Z95.1 ; Benign essential hypertension I10 ; Other chronic pain G89.29 and S/P cardiac pacemaker procedure Z95.0 [facility] [address] [facility] [address] [id number], [place] [id number] Jun, [facility] [address] [id number], [place] [id number] May, [facility] [address] [id number], [place] [id number] May, COPD (chronic obstructive pulmonary dise ase) with chronic bronchitis J44.9 ; Tobacco abuse Z72.0 and Tobacco abuse counseling Z71.6 [facility] [address] [id number], [place] [id number] Apr, CAD (coronary artery disease) I25.10 [facility] [employer] [address] [place] [address] A[address] [id number], [place] [id number] Mar, Peripheral arterial disease I73.9 [facility] [employer] [place] [address] A[address] [id number], [place] [id number] February, Chronic pain G89.29 ; Hyperlipemia E78.5 and Benign essential hypertension I10 [facility] Management[facility] [employer] [place] [address] A[address] [id number], [place] [id number] Jan, COPD (chronic obstructive pulmonary dise ase) with chronic bronchitis J44.9 [facility] Management[facility] [employer] [place] [address] A[address] [id number], [place] [id number] Jan, [facility] [employer] [place] [address] A[address] [id number], [place] 764599301 Jan, Peripheral arterial disease I73.9 ; Carlo gn essential hypertension I10 ; Bilateral carotid artery disease I77.9 ; Claudication of both lower extremities I73.9 ; Mixed hyperlipidemia E78.2 ; Tobacco use Z72.0 and Non- rheumatic mitral regurgitation I34.0 [facility] [address] [id number], [place] [id number] Jan, RUQ pain R10.11 ; Gastroesophageal reflu x disease without esophagitis K21.9 and Change in stool R19.5 [facility] [id number], [place] 6406[address] Jan, [facility] [address] [id number], [place] [id number] Jan, Neck pain M54.2 ; Benign essential hyper tension I10 ; COPD (chronic obstructive pulmonary disease) with chronic bronchitis J44.9 and Chronic obstructive pulmonary disease, unspecified COPD type J44.9 [facility] [address] [id number], [place] [id number] Jan, Chronic obstructive pulmonary disease, u nspecified COPD type J44.9 [facility] [address] [id number], [place] [id number] Dec, [facility] [address] [id number], [place] 85[address] Dec, [facility] [address] [facility] [address] [id number], [place] [id number] Dec, COPD (chronic obstructive pulmonary dise ase) with chronic bronchitis J44.9 [facility] [address] [facility] [id number] [address] [place] [address] Dec, [facility] [address] [facility] [id number] [address] [place] [address] Dec, [facility] [address] [id number], [place] [address]90[address]31[address] Nov, [facility] [address] [id number], [place] [id number] Nov, Benign essential hypertension I10 and CO PD (chronic obstructive pulmonary disease) with chronic bronchitis J44.9 [facility] [address] [id number], [place] 829694604 Nov, Hyperlipemia E78.5 ; Benign essential hy pertension I10 ; COPD (chronic obstructive pulmonary disease) with chronic bronchitis J44.9 ; Encounter for immunization Z23 ; Gastroesophageal reflux disease without esophagitis K21.9 and Chronic pain G89.29 [facility] [address] [id number], [place] [id number] Oct, COPD (chronic obstructive pulmonary dise ase) with chronic bronchitis J44.9 and Chronic obstructive pulmonary disease, unspecified COPD type J44.9 [facility] [address] [id number], [place] [id number] Oct, COPD (chronic obstructive pulmonary dise ase) with chronic bronchitis J44.9 and Chronic obstructive pulmonary disease, unspecified COPD type J44.[address] [id number] [place] [id number] Oct, COPD (chronic obstructive pulmonary dise ase) with chronic bronchitis J44.9 and Chronic obstructive pulmonary disease, unspecified COPD type J44.9 [facility] [address] [id number] [place], [place] 7595[address]861 Oct, Benign essential hypertension I10 and Ne ck pain M54.2 [facility] [address] [id number], [place] 911586844 Sep, PAD (peripheral artery disease) I73.9 ; Claudication of both lower extremities I73.9 ; Bilateral carotid artery disease I77.9 ; Benign essential hypertension I10 ; Hyperlipemia E78.5 and Dyspnea on exertion R06.09 [facility] [address] [id number], [place] 394501085 Aug, Benign essential hypertension I10 ; Vannessa roesophageal reflux disease without esophagitis K21.9 and Cervical radiculopathy M54.12 [facility] [address] [id number], [place] 340004179 Aug, Gastroesophageal reflux disease without esophagitis K21.9 [facility] [address] [id number], [place] 392649535 Aug, COPD (chronic obstructive pulmonary dise ase) with chronic bronchitis J44.9 [facility] [address] [id number], [place] 756639142 Jul, [facility] ManagementW[facility] [address] [id number], [place] [id number] Jul, Benign essential hypertension I10 [facility] [address] [id number], [place] [id number] Jul, [facility] ManagementW[facility] [address] [id number], [place] [id number] Jul, COPD (chronic obstructive pulmonary dise ase) with chronic bronchitis J44.9 [facility] [address] [id number], [place] [id number] Jul, Neck pain M54.2 [facility] [address] [id number] [place] [address] Jun, Claudication of both lower extremities I 73.9 ; PAD (peripheral artery disease) I73.9 ; Bilateral carotid artery disease I77.9 ; CAD (coronary artery disease) I25.10 ; Tobacco abuse Z72.0 ; Benign essential hypertension I10 ; Hyperlipemia E78.5 and Non-rheumatic mitral valve stenosis I34.[address] [address] [id number] [place] 9694420[address] Jun, Chronic obstructive pulmonary disease, u nspecified COPD type J44.[address] [facility] [address] [id number] [place], [place] [id number] May, [facility] [address] [id number], [place] 599699630 May, Chronic obstructive pulmonary disease, u nspecified COPD type J44.9 [facility] [address] [id number], [place] 417400610 May, Neck pain M54.2 ; Chronic obstructive pu lmonary disease, unspecified COPD type J44.9 and Cervical radiculopathy M54.12 [facility] [address] [id number], [place] 384512898 May, [facility] [address] [id number] [place], [place] [id number] Apr, [facility] [address] [id number] [place] 719172174 Apr, Gastroesophageal reflux disease without esophagitis K21.[address] [facility] [address] [id number] [place], [place] 930666644 Apr, COPD (chronic obstructive pulmonary dise ase) with chronic bronchitis J44.9 [facility] [address] [id number] [place], [place] [id number] Apr, [facility] [address] [id number] [place] [id number] Apr, [facility] [address] [id number] [place] 207094925 Apr, COPD (chronic obstructive pulmonary dise ase) with chronic bronchitis J44.9 ; Benign essential hypertension I10 ; Tobacco abuse counseling Z71.6 and Hyperlipemia E78.[address] [facility] [address] [id number] [place], [place] [id number] February, COPD (chronic obstructive pulmonary dise ase) with chronic bronchitis J44.[address] [facility] [address] [id number] [place] 536964301 Jan, [facility] [address] [id number] [place] [id number] Jan, COPD (chronic obstructive pulmonary dise ase) with chronic bronchitis J44.[address] [facility] [address] [id number] [place], [place] 950976512 Oct, COPD (chronic obstructive pulmonary dise ase) with chronic bronchitis J44.[address] [facility] [address] [id number] [place], [place] 2559[address]382 Oct, Winter itch L29.[address] [facility] [address] [id number] [place] 023931319 Oct, COPD (chronic obstructive pulmonary dise ase) with chronic bronchitis J44.9 ; Benign essential hypertension I10 ; Tobacco abuse Z72.0 and Gastroesophageal reflux disease without esophagitis K21.[address] [facility] [address] [id number] [place], [place] 014256472 Sep, Benign essential hypertension I[address] [facility] [address] [id number] [place], [place] [id number] Aug, [facility] [address] [id number] [place] 787626997 Jul, [facility] [address] [id number] [place] [address] Apr, [facility] [address] [id number], [place] 143124826 Apr, Abdominal bloating R14.0 ; Fatty liver K 76.0 ; Diverticulosis of intestine without bleeding, unspecified intestinal tract location K57.90 ; Chronic obstructive pulmonary disease, unspecified COPD type J44.9 and Benign essential hypertension I10 [facility] [address] [id number], [place] [id number] Apr, Mild early onset dysthymic disorder, in partial remission, with melancholic features, 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 [facility] [address] [id number], [place] [id number] Mar, Abdominal muscle strain, initial encount er S39.011A [facility] [address] [employer] [address] [place] [address] [place] [id number], [place] [id number] Jan, Pancreatitis K85.9 ; Abdominal bloating R14.0 ; Chronic bronchitis J42 and Chronic pain G89.29 [facility] [address] [employer] [address] [place] [address] [address] [id number], [place] [id number] Nov, [facility] ManagementW[facility] [employer] [address] [place] [address] A[address] [id number], [place] 826209439 Nov, [facility] [address] [employer] [address] [place] [address] A[address] [id number], [place] 738198307 Nov, Chronic bronchitis J42 ; Tobacco abuse Z 72.0 and Tobacco abuse counseling Z71.6 [facility] [address] [employer] [address] [place] [address] A[address] [id number], [place] [id number] Oct, [facility] Management[facility] [employer] [address] [place] [address] [address] [id number], [place] 648093554 Oct, Chronic bronchitis J42 ; Tobacco abuse Z 72.0 and Benign essential hypertension I10 [facility] [address] [id number], [place] [id number] Oct, Chronic bronchitis J42 ; Tobacco abuse Z 72.0 ; Tobacco abuse counseling Z71.6 ; Benign essential hypertension I10 [address]78[address] [facility] [address] [place] [id number] [place] [id number] Sep, [facility] [address] [id number], [place] [id number] Jul, [facility] [address] [place] [id number] [address] [place] [phone] Jul, Essential (primary) hyperten aida I10 [facility] [address] [place] [id number] [address] [place] [phone] Jul, [facility] [id number] [place] [address] [id number] Jul, [facility] [id number] [place] [address] [id number] Jun, Benign essential hypertension 401.1 ; Ge neralized edema 782.3 ; Chronic pain 338.29 and Hyperlipemia 272.4 [facility] [id number] [place] [address] [id number] May, Upper respiratory infection 465.9 and Co ugh 786.2 [facility] [address] [place] [address] [id number] [place] [address] [id number] Mar, Upper respiratory infection 465.9 ; Toba tobacco educator abuse 305.1 and Cough 786.2 [facility] [address] [id number], [place] [id number] February, [facility] [id number] [place] [address] [id number] February, Status post bilateral carotid endarterec vito V45.89 ; CAD (coronary artery disease) 414.00 ; Benign essential hypertension 401.1 ; Hyperlipemia 272.4 ; Tobacco abuse 305.1 ; Tobacco abuse counseling V65.42 [address]itis [address]9 [facility] [address] [facility] [id number] [address] [place] [id number] Jan, [facility] [address] [facility] [id number] [address] [place] [address] Jan, [facility] [address] [id number] [address] [place] [address], [place] [address] Dec, [facility] [address] [id number] [address] [place] [address], [place] [address] Dec, [facility] [address] [id number] [address] [place] [address], [place] [address] Nov, 2014 [facility] [address] [id number] [address] [place] [address], [place] [address] Nov, 2014 [facility] [address] [id number] [address] [place] [address], [place] [address] Nov, 2014 [facility] [address] [id number] [address] [place] [address], [place] [address] Nov, 2014 [facility] [address] [id number] [address] [place] [address], [place] [address] Nov, 2014 [facility] [address] [id number] [address] [place] [address], [place] [address] Nov, [facility] [address] [id number] [address] [place] [address], [place] [address] Nov, [facility] [address] [id number] [address] [place] [address], [place] [address] Nov, [facility] [address] [id number] [address] [place] [address], [place] [address] Nov, [facility] [address] [id number] [address] [place] [address] Oct, [facility] [address] [id number] [address] [place] [address], [place] [address] Oct, [facility] [address] [id number] [address] [place] [address], [place] [address] Oct, [facility] [address] [id number] [address] [place] [address] Oct, [facility] [address] [id number] [address] [place] [address] Oct, [facility] [address] [id number] [address] [place] [address], [place] [address] Oct, [facility] [address] [id number] [address] [place] [address] Oct, [facility] [address] [id number] [address] [place] [address], [place] [address] Oct, [facility] [address] [id number] [address] [place] [phone] Oct, [facility] [address] [id number] [address] [place] [address], [place] [address] Oct, [facility] [address] [id number] [place] [id number] Oct, [facility] [address] [id number] [address] [place] [address] Oct, [facility] [address] [id number] [address] [place] [address] Sep, [facility] [address] [id number] [address] [place] [address], [place] [address] Sep, [facility] [address] [id number] [address] [place] [address], [place] [address] Aug, [facility] [address] [id number] [address] [place] [address], [place] [address] Aug, [facility] [address] [id number] [address] [place] [phone] Aug, [facility] [address] [id number] [address] [place] [address], [place] [address] Aug, [facility] [address] [id number] [address] [place] [address], [place] [address] Jul, [facility] [address] [id number] [address] [place] [address], [place] [address] Jul, [facility] [address] [id number] [address] [place] [address], [place] [address] Jun, [facility] [address] [id number] [address] [place] [address], [place] [address] Jun, [facility] [address] [id number] [address] [place] [address], [place] [address] May, [facility] [address] [id number] [address] [place] [address], [place] [address] May, [facility] [address] [id number] [address] [place] [address], [place] [address] May, [facility] [address] [id number] [address] [place] [address], [place] [address] May, [facility] [address] [id number] [address] [place] [address], [place] [address] Jan, [facility] [address] [id number] [address] [place] [address], [place] [address] Jan, [facility] [address] [id number] [address] [place] [address], [place] [address] Nov, [facility] [address] [id number] [address] [place] [address], [place] [address] Nov, [facility] [address] [id number] [address] [place] [address], [place] [address] Nov, [facility] [address] [id number] [address] [place] [address], [place] [address] Nov, [facility] [address] [id number] [address] [place] [address], [place] [address] Nov, [facility] [address] [id number] [address] [place] [address], [place] [address] Nov, [facility] [address] [id number] [address] [place] [address] Nov, [facility] [address] [id number] [address] [place] [address], [place] [address] Nov, [facility] [address] [id number] [address] [place] [address], [place] [address] Nov, [facility] [address] [id number] [address] [place] [address], [place] [address] Nov, [facility] [address] [id number] [address] [place] [address], [place] [address] Oct, [facility] [address] [id number] [address] [place] [address], [place] [address] Oct, [facility] [address] [id number] [address] [place] [address], [place] [address] Oct, [facility] [address] [id number] [address] [place] [address], [place] [address] Oct, [facility] [address] [id number] [address] [place] [address], [place] [address] Sep, [facility] [address] [id number] [address] [place] [address], [place] [address] Sep, [facility] [address] [id number] [address] [place] [address], [place] [address] Aug, [facility] [address] [id number] [address] [place] [address], [place] [address] Aug, [facility] [address] [id number] [address] [place] [address], [place] [address] Aug, [facility] [address] [id number] [address] [place] [id number] Aug, [facility] [address] [id number] [address] [place] [address], [place] [address] Aug, [facility] [address] [id number] [address] [place] [address], [place] [address] Aug, [facility] [address] [id number] [address] [place] [address], [place] [address] Aug, [facility] [address] [id number] [address] [place] [address], [place] [address] Aug, [facility] [address] [id number] [address] [place] [address], [place] [address] Jul, [facility] [address] [id number] [address] [place] [address], [place] [address] Jul, [facility] [facility] [address] [id number] [address] [place] [address], [place] [address] Jul, [facility] [address] [id number] [address] [place] [address], [place] [address] Jul, [facility] [address] [id number] [address] [place] [address], [place] [address] Jul, [facility] [address] [id number] [address] [place] [address], [place] [address] Jun, [facility] [address] [id number] [address] [place] [address], [place] [address] May, [facility] [address] [id number] [address] [place] [address], [place] [address] Apr, [facility] [address] [id number] [address] [place] [address], [place] [address] February, [facility] [address] [id number] [address] [place] [address], [place] [address] Jan, [facility] [address] [id number] [address] [place] [address], [place] [address] Jan, [facility] [address] [id number] [address] [place] [address], [place] [address] Dec, [facility] [address] [id number] [address] [place] [address], [place] [address] Dec, [facility] [address] [id number] [address] [place] [address], [place] [address] Dec, [facility] [address] [id number] [address] [place] [address], [place] [address] Nov, [facility] [address] [facility] [id number] [address] [place] [id number] Nov, [facility] [address] [facility] [id number] [address] [place] [id number] Nov, [facility] [address] [facility] [id number] [address] [place] [phone] Nov, IMMUNIZATIONS No Known Immunizations SOCIAL HISTORY Never Assessed REASON FOR VISIT PLAN OF CARE VITAL SIGNS Height 62 in 2014-06-10 Weight 145 lbs 2014-06-10 Temperature 96 degrees Fahrenheit 2014-06-10 Heart Rate 58 bpm 2014-06-10 Blood pressure systolic 0 mmHg 2014-06-10 Blood pressure diastolic 0 mmHg 2014-06-10 MEDICATIONS Unknown Medications RESULTS No Results PROCEDURES Procedure Date Ordered Result Body Site L HRT ARTERY/VENTRICLE ANGIO Jun 10, 2014 MEASURE BLOOD OXYGEN LEVEL Jun 10, 2014 EXTRACRANIAL STUDY Jun 10, 2014 INSTRUCTIONS MEDICATIONS ADMINISTERED No Known Medications [...]
--- OUTSIDE RECORDS SUMMARY | 2020-04-06 06:54 | XMS REPORT ---
Author Author Jermaine CAMPOS Organization [facility] Address [address] [place] [address] Care Team Providers Care Professional Services Consultant Name Role Phone TIFFANIE CAMPOS Unavailable PROBLEMS Type Condition ICD9-CM Code FOG41-UF Code Onset Dates Condition S tatus SNOMED Code Problem Chronic pain G89.29 Active 5683640 1 Problem CAD (coronary artery disease) I25.10 Active 77480397 Problem Diverticulosis of intestine without bleeding, unspecified intestinal tract location K57.90 Active 80697159 Problem Fatty liver K76.0 Active 67643558 7 Problem COPD (chronic obstructive pulmonary disease) wit h chronic bronchitis J44.9 Active 384977461 Problem Abdominal bloating R14.0 Active 1 29150769 Problem Bilateral carotid artery disease I77.9 Active 692223445 Problem Hyperlipemia E78.5 Active 7560894 4 Problem Gastroesophageal reflux disease without esophagitis K21.9 Active 249331818 Problem Chronic obstructive pulmonary disease, unspecified COPD ty pe J44.9 Active 08333977 Problem Non-rheumatic mitral regurgitation I34.0 Active 599240012 Problem Claudication I73.9 Active 7135475 6 Problem Degenerative disc disease, cervical M50.30 Active 29207504 Problem PAD (peripheral artery disease) I73.9 Active 162670536 Problem Benign essential hypertension I10 Active 6615549 Problem Pacemaker Z95.0 Active 168772815 Problem Claudication of both lower extremities I73.9 Active 756234415 Problem Chronic bronchitis J42 Active 6 3989026 Problem Tobacco abuse Z72.0 Active 965632 05 Problem Peripheral arterial disease I73.9 Ac tive 682603908 Problem Mixed hyperlipidemia E78.2 Active 667994415 Problem Other chronic pain G89.29 Active 8 8901530 Problem Diet-controlled diabetes mellitus E11.9 Active 175578735 ALLERGIES No Information ENCOUNTERS Encounter Location Date Diagnosis [facility] [address] [facility] [id number] [place] [id number] Mar, [facility] [address] [id number], [place] [id number] Mar, Facet arthritis of cervical region M47.8 12 and Cervical radiculopathy M54.12 [facility] [address] [place] [address] AVE [id number], [place] 346507744 February, Degenerative disc disease, cervical M50. 30 ; Facet arthritis of cervical region M47.812 ; Cervical radiculopathy M54.12 and Pacemaker Z95.0 [facility] [address] [place] [address] AVE [id number], [place] [id number] February, [facility] [address] [place] [address] A[address] [id number], [place] [id number] Jan, [facility] MediaTER [address] [place] [address] AVE [id number], [place] [id number] Sep, Diet-controlled diabetes mellitus E11.9 ; Benign essential hypertension I10 and Tobacco abuse Z72.0 [facility] [address] [id number], [place] [id number] Jul, Hyperlipemia E78.5 and CAD (coronary art janneth disease) I25.10 [facility] [address] [place] [address] A[address] [id number], [place] [id number] Jun, CAD (coronary artery disease) I25.10 and Hyperlipemia E78.5 [facility] [address] [place] [address] A[address] [id number], [place] [id number] Jun, New onset type 2 diabetes mellitus E11.9 ; S/P CABG (coronary artery bypass graft) Z95.1 ; Benign essential hypertension I10 ; Other chronic pain G89.29 and S/P cardiac pacemaker procedure Z95.0 [facility] [address] [id number], [place] [id number] Jun, [facility] [address] [place] [address] A[address] [id number], [place] [id number] May, [facility] [address] [id number], [place] [id number] May, COPD (chronic obstructive pulmonary dise ase) with chronic bronchitis J44.9 ; Tobacco abuse Z72.0 and Tobacco abuse counseling Z71.6 [facility] [address] [place] [address] A[address] [id number], [place] [id number] Apr, CAD (coronary artery disease) I25.10 [facility] [address] [place] [address] A[address] [id number], [place] [id number] Mar, Peripheral arterial disease I73.9 [facility] [address] [id number], [place] [id number] February, Chronic pain G89.29 ; Hyperlipemia E78.5 and Benign essential hypertension I10 [facility] [address] [place] [address] A[address] [id number], [place] [id number] Jan, COPD (chronic obstructive pulmonary dise ase) with chronic bronchitis J44.9 [facility] [address] [id number], [place] [id number] Jan, [facility] [address] [id number], [place] [id number] Jan, Peripheral arterial disease I73.9 ; Carlo gn essential hypertension I10 ; Bilateral carotid artery disease I77.9 ; Claudication of both lower extremities I73.9 ; Mixed hyperlipidemia E78.2 ; Tobacco use Z72.0 and Non- rheumatic mitral regurgitation I34.0 [facility] [address] [place] [address] A[address] [id number], [place] [id number] Jan, RUQ pain R10.11 ; Gastroesophageal reflu x disease without esophagitis K21.9 and Change in stool R19.5 [facility] [address] [id number], [place] [id number] Jan, [facility] [address] [id number], [place] [id number] Jan, Neck pain M54.2 ; Benign essential hyper tension I10 ; COPD (chronic obstructive pulmonary disease) with chronic bronchitis J44.9 and Chronic obstructive pulmonary disease, unspecified COPD type J44.9 [facility] [address] [id number], [place] [id number] Jan, Chronic obstructive pulmonary disease, u nspecified COPD type J44.9 [facility] [address] [id number], [place] [id number] Dec, [facility] [address] [id number], [place] [id number] Dec, [facility] [address] [id number], [place] [id number] Dec, COPD (chronic obstructive pulmonary dise ase) with chronic bronchitis J44.9 [facility] [address] [facility] [id number] [address] [place] [address] Dec, [facility] [address] [facility] [id number] [address] [place] [address] Dec, [facility] [address] [id number], [place] [id number] Nov, [facility] [address] [facility] [address] [id number], [place] [id number] Nov, Benign essential hypertension I10 and CO PD (chronic obstructive pulmonary disease) with chronic bronchitis J44.9 [facility] [address] [facility] [address] [id number], [place] 580411087 Nov, Hyperlipemia E78.5 ; Benign essential hy pertension I10 ; COPD (chronic obstructive pulmonary disease) with chronic bronchitis J44.9 ; Encounter for immunization Z23 ; Gastroesophageal reflux disease without esophagitis K21.9 and Chronic pain G89.29 [facility] [address] [id number], [place] [id number] Oct, COPD (chronic obstructive pulmonary dise ase) with chronic bronchitis J44.9 and Chronic obstructive pulmonary disease, unspecified COPD type J44.9 [facility] [address] [id number], [place] 512019194 Oct, COPD (chronic obstructive pulmonary dise ase) with chronic bronchitis J44.9 and Chronic obstructive pulmonary disease, unspecified COPD type J44.9 [facility] [address] [id number], [place] 528641167 Oct, COPD (chronic obstructive pulmonary dise ase) with chronic bronchitis J44.9 and Chronic obstructive pulmonary disease, unspecified COPD type J44.9 [facility] [address] [id number], [place] 515879696 Oct, Benign essential hypertension I10 and Ne ck pain M54.2 [facility]TER [address] [id number], [place] 231402374 Sep, PAD (peripheral artery disease) I73.9 ; Claudication of both lower extremities I73.9 ; Bilateral carotid artery disease I77.9 ; Benign essential hypertension I10 ; Hyperlipemia E78.5 and Dyspnea on exertion R06.09 [facility] MediaTER [address] [id number], [place] 376047175 Aug, Benign essential hypertension I10 ; Vannessa roesophageal reflux disease without esophagitis K21.9 and Cervical radiculopathy M54.12 [facility] [address] [id number], [place] 775501262 Aug, Gastroesophageal reflux disease without esophagitis K21.9 [facility]PinpointeK [address] [id number], [place] 819183060 Aug, COPD (chronic obstructive pulmonary dise ase) with chronic bronchitis J44.9 [facility]pointeK [address] [id number], [place] [id number] Jul, [facility] [address] [address] [id number], [place] 825144202 Jul, Benign essential hypertension I10 [facility] [address] [id number], [place] 869267971 Jul, [facility] [address] [id number], [place] 404684266 Jul, COPD (chronic obstructive pulmonary dise ase) with chronic bronchitis J44.9 [facility] [address] [address] [id number] [place] [id number] Jul, Neck pain M54.2 [facility] [address] [address] [id number] [place] 275276846 Jun, Claudication of both lower extremities I 73.9 ; PAD (peripheral artery disease) I73.9 ; Bilateral carotid artery disease I77.9 ; CAD (coronary artery disease) I25.10 ; Tobacco abuse Z72.0 ; Benign essential hypertension I10 ; Hyperlipemia E78.5 and Non-rheumatic mitral valve stenosis I34.[address] [id number] [place] 508886693 Jun, Chronic obstructive pulmonary disease, u nspecified COPD type J44.9 [facility] [address] [id number], [place] 783838419 May, [facility] [address] [address] [id number], [place] [id number] May, Chronic obstructive pulmonary disease, u nspecified COPD type J44.9 [facility] [address] [address] [id number], [place] 806143408 May, Neck pain M54.2 ; Chronic obstructive pu lmonary disease, unspecified COPD type J44.9 and Cervical radiculopathy M54.12 [facility] [address] [id number] [place] [id number] May, [facility] [address] [id number] [place] [id number] Apr, [facility] [address] [address] [id number] [place] 906358369 Apr, Gastroesophageal reflux disease without esophagitis K21.[address] [address] [id number] [place] 047897946 Apr, COPD (chronic obstructive pulmonary dise ase) with chronic bronchitis J44.9 [facility] [address] [id number], [place] [id number] Apr, [facility] [address] [id number] [place] 157066868 Apr, [facility] [address] [id number] [place] [id number] Apr, COPD (chronic obstructive pulmonary dise ase) with chronic bronchitis J44.9 ; Benign essential hypertension I10 ; Tobacco abuse counseling Z71.6 and Hyperlipemia E78.[address] [facility] [address] [id number], [place] 801373294 February, COPD (chronic obstructive pulmonary dise ase) with chronic bronchitis J44.[address] [facility] [address] [id number], [place] 465820872 Jan, [facility] [address] [id number], [place] 399229216 Jan, COPD (chronic obstructive pulmonary dise ase) with chronic bronchitis J44.[address] [facility] [address] [id number], [place] 578428465 Oct, COPD (chronic obstructive pulmonary dise ase) with chronic bronchitis J44.[address] [facility] [address] [id number], [place] 379953799 Oct, Winter itch L29.[address] [facility] [address] [id number], [place] 172765346 Oct, COPD (chronic obstructive pulmonary dise ase) with chronic bronchitis J44.9 ; Benign essential hypertension I10 ; Tobacco abuse Z72.0 and Gastroesophageal reflux disease without esophagitis K21.[address] [facility] [address] [id number] [place] 334226781 Sep, Benign essential hypertension I10 [facility] [address] [id number], [place] 716285916 Aug, [facility] [address] [id number], [place] [id number] Jul, [facility] [address] [address] [id number], [place] [id number] Apr, [facility] MediaTER [address] [place] [address] AVE [id number], [place] 249297744 Apr, Abdominal bloating R14.0 ; Fatty liver K 76.0 ; Diverticulosis of intestine without bleeding, unspecified intestinal tract location K57.90 ; Chronic obstructive pulmonary disease, unspecified COPD type J44.9 and Benign essential hypertension I10 [facility] [address] [id number], [place] [id number] Apr, Mild early onset dysthymic disorder, in partial remission, with melancholic features, 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 [facility] MediaTER Class[employer]ges [facility] [id number], [place] [id number] Mar, Abdominal muscle strain, initial encount er S39.011A [facility] MediaTER [address] [place] [address] [id number], [place] 570965023 Jan, Pancreatitis K85.9 ; Abdominal bloating R14.0 ; Chronic bronchitis J42 and Chronic pain G89.29 [facility] MediaTER [employer] [facility] [address] [id number], [place] [id number] Nov, [facility] [address] [id number], [place] [id number] Nov, [facility] [employer] [facility] [address] [id number], [place] [id number] Nov, Chronic bronchitis J42 ; Tobacco abuse Z 72.0 and Tobacco abuse counseling Z71.6 [facility] MediaTER [address] [id number], [place] [id number] Oct, [facility] [address] [id number], [place] [id number] Oct, Chronic bronchitis J42 ; Tobacco abuse Z 72.0 and Benign essential hypertension I10 [facility] [address] [id number], [place] [id number] Oct, Chronic bronchitis J42 ; Tobacco abuse Z 72.0 ; Tobacco abuse counseling Z71.6 ; Benign essential hypertension I10 and Hyperlipemia E78.5 [facility] [address] [facility] [id number] [address] [place] [address] Sep, [facility] [address] [id number], [place] [id number] Jul, [facility] [address] [place] [id number] [address] [place] [address] Jul, Essential (primary) hyperten aida I10 [facility] [address] [facility] [id number] [address] [place] [address] Jul, [facility] [address] [facility] [address] [id number], [place] [id number] Jul, 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 and Cough 786.[address] [id number], [place] [id number] February, [address] [id number], [place] 945600311 February, Status post bilateral carotid endarterec vito V45.89 ; CAD (coronary artery disease) 414.00 ; Benign essential hypertension 401.1 ; Hyperlipemia 272.4 ; Tobacco abuse 305.1 ; Tobacco abuse counseling V65.42 and Chronic bronchitis 491.9 [facility] [address] [facility] [id number] [address] [place] [address] Jan, [facility] [address] [id number] [address] [place] [address], [place] [address] Jan, [facility] [address] [id number] [address] [place] [address], [place] [address] Dec, [facility] [address] [id number] [address] [place] [address], [place] [address] Dec, [facility] [address] [id number] [address] [place] [address], [place] [address] Nov, 2014 [facility] [address] [id number] [address] [place] [address], [place] [address] Nov, 2014 [facility] [address] [id number] [address] [place] [address], [place] [address] Nov, 2014 [facility] [address] [id number] [address] [place] [address], [place] [address] Nov, [facility] [address] [id number] [address] [place] [address], [place] [address] Nov, [facility] [address] [id number] [address] [place] [address], [place] [address] Nov, [facility] [address] [id number] [address] [place] [address], [place] [address] Nov, [facility] [address] [id number] [address] [place] [address], [place] [address] Nov, [facility] [address] [id number] [address] [place] [address], [place] [address] Nov, [facility] [address] [id number] [address] [place] [address], [place] [address] Oct, [facility] [address] [id number] [address] [place] [address], [place] [address] Oct, [facility] [address] [id number] [address] [place] [address], [place] [address] Oct, [facility] [address] [id number] [address] [place] [address] Oct, [facility] [address] [id number] [address] [place] [address], [place] [address] Oct, [facility] [address] [id number] [address] [place] [address], [place] [address] Oct, [facility] [address] [id number] [address] [place] [address], [place] [address] Oct, [facility] [address] [id number] [address] [place] [address] Oct, [facility] [address] [id number] [address] [place] [address], [place] [address] Oct, [facility] [address] [id number] [address] [place] [address] Oct, [facility] [address] [id number] [place] [id number] Oct, [facility] [address] [id number] [address] [place] [address] Oct, [facility] [address] [id number] [address] [place] [address], [place] [address] Sep, [facility] [address] [id number] [address] [place] [address], [place] [address] Sep, [facility] [address] [id number] [address] [place] [address] Aug, [facility] [address] [id number] [address] [place] [address] Aug, [facility] [address] [id number] [address] [place] [address], [place] [address] Aug, [facility] [address] [id number] [address] [place] [address], [place] [address] Aug, [facility] [address] [id number] [address] [place] [address], [place] [address] Jul, [facility] [address] [id number] [address] [place] [address], [place] [address] Jul, [facility] [address] [id number] [address] [place] [address], [place] [address] Jun, [facility] [address] [id number] [address] [place] [address], [place] [address] Jun, [facility] [address] [id number] [address] [place] [address], [place] [address] May, [facility] [address] [id number] [address] [place] [address], [place] [address] May, [facility] [address] [id number] [address] [place] [address], [place] [address] May, [facility] [address] [id number] [address] [place] [address], [place] [address] May, [facility] [address] [id number] [address] [place] [address], [place] [address] Jan, [facility] [address] [id number] [address] [place] [address], [place] [address] Jan, [facility] [address] [id number] [address] [place] [address], [place] [address] Nov, [facility] [address] [id number] [address] [place] [address], [place] [address] Nov, [facility] [address] [id number] [address] [place] [address], [place] [address] Nov, [facility] [address] [id number] [address] [place] [address], [place] [address] Nov, [facility] [address] [id number] [address] [place] [address], [place] [address] Nov, [facility] [address] [id number] [address] [place] [address], [place] [address] Nov, [facility] [address] [id number] [address] [place] [address], [place] [address] Nov, [facility] [address] [id number] [address] [place] [address], [place] [address] Nov, [facility] [address] [id number] [address] [place] [address], [place] [address] Nov, [facility] [address] [id number] [address] [place] [address], [place] [address] Nov, [facility] [address] [id number] [address] [place] [address], [place] [id number] Oct, [facility] [address] [id number] [address] [place] [address], [place] [id number] Oct, [facility] [address] [id number] [address] [place] [address], [place] [id number] Oct, [facility] [address] [id number] [address] [place] [address], [place] [address] Oct, [facility] [address] [id number] [address] [place] [address], [place] [id number] Sep, [facility] [address] [id number] [address] [place] [address], [place] [id number] Sep, [facility] [address] [id number] [address] [place] [address], [place] [id number] Aug, [facility] [address] [id number] [address] [place] [address], [place] [id number] Aug, [facility] [address] [id number] [address] [place] [address], [place] [id number] Aug, [facility] [address] [id number] [address] [place] [address], [place] [address] Aug, [facility] [address] [id number] [address] [place] [address], [place] [id number] Aug, [facility] [address] [id number] [address] [place] [address], [place] [id number] Aug, [facility] [address] [id number] [address] [place] [address], [place] [id number] Aug, [facility] [address] [id number] [address] [place] [address], [place] [id number] Aug, [facility] [address] [id number] [address] [place] [address], [place] [id number] Jul, [facility] [address] [id number] [address] [place] [address], [place] [id number] Jul, [facility] [address] [id number] [address] [place] [address], [place] [id number] Jul, [facility] [address] [id number] [address] [place] [address], [place] [id number] Jul, [facility] [address] [id number] [address] [place] [address], [place] [id number] Jul, [facility] [address] [id number] [address] [place] [address], [place] [id number] Jun, [facility] [address] [id number] [address] [place] [address], [place] [id number] May, [facility] [address] [id number] [address] [place] [address], [place] [id number] Apr, [facility] [address] [id number] [address] [place] [address], [place] [id number] February, [facility] [address] [id number] [address] [place] [address], [place] [id number] Jan, [facility] [address] [id number] [address] [place] [address], [place] [id number] Jan, [facility] [address] [id number] [address] [place] [address], [place] [id number] Dec, [facility] [address] [id number] [address] [place] [address], [place] [address] Dec, [facility] [address] [id number] [address] [place] [address], [place] [id number] Dec, [facility] [address] [facility] [id number] [address] [place] [id number] Nov, [facility] [address] [facility] [id number] [address] [place] [id number] Nov, [facility] [address] [facility] [id number] [address] [place] [id number] Nov, [facility] [address] [facility] [id number] [address] [place] [id number] Nov, IMMUNIZATIONS No Known Immunizations SOCIAL HISTORY Never Assessed REASON FOR VISIT PLAN OF CARE VITAL SIGNS Height 62 in 2014-06-22 Weight 147.4 lbs 2014-06-22 Temperature 97.1 degrees Fahrenheit 2014-06-22 Heart Rate 64 bpm 2014-06-22 Respiratory Rate 18 2014-06-22 Blood pressure systolic 124 mmHg 2014-06-22 Blood pressure diastolic 78 mmHg 2014-06-22 MEDICATIONS Unknown Medications RESULTS No Results PROCEDURES No Known procedures INSTRUCTIONS MEDICATIONS ADMINISTERED No Known Medications MEDICAL (GENERAL) HISTORY Type Description Date Medical History GERD Medical History hypertension Medical History 1999 mild stroke syndrome- C T head 02/2015 showed chronic ischemic changes Medical History chronic neck and back pain Medical History DC x's 2 1996 and 2011 Medical History [...]
--- OUTSIDE RECORDS SUMMARY | 2020-04-06 06:55 | XMS REPORT ---
Author Author Jermaine CAMPOS [facility] Address [address] [place] [address] Care Team Providers Care Map Drafter Name Role Phone TIFFANIE CAMPOS Unavailable PROBLEMS Type Condition ICD9-CM Code CLZ59-ML Code Onset Dates Condition S tatus SNOMED Code Problem Chronic pain G89.29 Active 4100618 1 Problem CAD (coronary artery disease) I25.10 Active 79027917 Problem Diverticulosis of intestine without bleeding, unspecified intestinal tract location K57.90 Active 65780910 Problem Fatty liver K76.0 Active 74779378 7 Problem COPD (chronic obstructive pulmonary disease) wit h chronic bronchitis J44.9 Active 937734096 Problem Abdominal bloating R14.0 Active 1 04830820 Problem Bilateral carotid artery disease I77.9 Active 286012508 Problem Hyperlipemia E78.5 Active 8899990 4 Problem Gastroesophageal reflux disease without esophagitis K21.9 Active 500749327 Problem Chronic obstructive pulmonary disease, unspecified COPD ty pe J44.9 Active 05749891 Problem Non-rheumatic mitral regurgitation I34.0 Active 637333975 Problem Claudication I73.9 Active 1337395 6 Problem Degenerative disc disease, cervical M50.30 Active 22196228 Problem PAD (peripheral artery disease) I73.9 Active 928350049 Problem Benign essential hypertension I10 Active 8364824 Problem Pacemaker Z95.0 Active 332771827 Problem Claudication of both lower extremities I73.9 Active 415572206 Problem Chronic bronchitis J42 Active 6 5813873 Problem Tobacco abuse Z72.0 Active 088664 05 Problem Peripheral arterial disease I73.9 Ac tive 477217275 Problem Mixed hyperlipidemia E78.2 Active 331208872 Problem Other chronic pain G89.29 Active 8 8718238 Problem Diet-controlled diabetes mellitus E11.9 Active 524647179 ALLERGIES No Information ENCOUNTERS Encounter Location Date Diagnosis [facility] [address] [facility] [id number] [place] [address] Mar, [facility] [employer] [id number], [place] [id number] Mar, Facet arthritis of cervical region M47.8 12 and Cervical radiculopathy M54.12 [facility] [employer] [place] [address] AVE [id number], [place] [id number] February, Degenerative disc disease, cervical M50. 30 ; Facet arthritis of cervical region M47.812 ; Cervical radiculopathy M54.12 and Pacemaker Z95.0 [facility] [employer] [place] [address] AVE [id number], [place] [id number] February, [facility] [employer] [place] [address] AVE [id number], [place] [id number] Jan, [facility] Retail MarketsTER [employer] [place] [address] AVE [id number], [place] [id number] Sep, Diet-controlled diabetes mellitus E11.9 ; Benign essential hypertension I10 and Tobacco abuse Z72.0 [facility] [employer] [address] [employer] [id number], [place] [id number] Jul, Hyperlipemia E78.5 and CAD (coronary art janneth disease) I25.10 [facility] [employer] [place] [address] AVE [id number], [place] [id number] Jun, CAD (coronary artery disease) I25.10 and Hyperlipemia E78.5 [facility] [employer] [place] [address] AVE [id number], [place] [id number] Jun, New onset type 2 diabetes mellitus E11.9 ; S/P CABG (coronary artery bypass graft) Z95.1 ; Benign essential hypertension I10 ; Other chronic pain G89.29 and S/P cardiac pacemaker procedure Z95.0 [facility] [employer] [id number], [place] [address]36[address]86 Jun, [facility] [employer] [place] [address] AVE [id number], [place] [id number] May, [facility] [address] [id number], [place] [id number] May, COPD (chronic obstructive pulmonary dise ase) with chronic bronchitis J44.9 ; Tobacco abuse Z72.0 and Tobacco abuse counseling Z71.6 [facility] [employer] [place] [address] A[address] [id number], [place] [id number] Apr, CAD (coronary artery disease) I25.10 [facility] [employer] [place] [address] AVE [id number], [place] [id number] Mar, Peripheral arterial disease I73.9 [facility] [address] [id number], [place] 760426158 February, Chronic pain G89.29 ; Hyperlipemia E78.5 and Benign essential hypertension I10 [facility] [employer] [place] [address] A[address] [id number], [place] [id number] Jan, COPD (chronic obstructive pulmonary dise ase) with chronic bronchitis J44.9 [facility] [address] [id number], [place] [id number] Jan, [facility] [address] [id number], [place] 968557341 Jan, Peripheral arterial disease I73.9 ; Carlo gn essential hypertension I10 ; Bilateral carotid artery disease I77.9 ; Claudication of both lower extremities I73.9 ; Mixed hyperlipidemia E78.2 ; Tobacco use Z72.0 and Non- rheumatic mitral regurgitation I34.0 [facility] [employer] [place] [address] AVE [id number], [place] 909448238 Jan, RUQ pain R10.11 ; Gastroesophageal reflu x disease without esophagitis K21.9 and Change in stool R19.5 [facility] [address] [id number], [place] [id number] Jan, [facility] [employer] [id number], [place] [address] Jan, Neck pain M54.2 ; Benign essential hyper tension I10 ; COPD (chronic obstructive pulmonary disease) with chronic bronchitis J44.9 and Chronic obstructive pulmonary disease, unspecified COPD type J44.9 [facility] [address] [id number], [place] [id number] Jan, Chronic obstructive pulmonary disease, u nspecified COPD type J44.9 [facility] [address] [id number], [place] 808438960 Dec, [facility] [address] [id number], [place] [id number] Dec, [facility] [place] [address] [id number], [place] [address] Dec, COPD (chronic obstructive pulmonary dise ase) with chronic bronchitis J44.9 [facility] [address] [facility] [id number] [address] [place] [address] Dec, [facility] [address] [facility] [id number] [address] [place] [address] Dec, [facility] [address] [id number], [place] [id number] Nov, [facility] [place] [address] [facility] A[address] [id number], [place] 672191388 Nov, Benign essential hypertension I10 and CO PD (chronic obstructive pulmonary disease) with chronic bronchitis J44.9 [facility] [address] [facility] [address] [id number], [place] [id number] Nov, Hyperlipemia E78.5 ; Benign essential hy pertension I10 ; COPD (chronic obstructive pulmonary disease) with chronic bronchitis J44.9 ; Encounter for immunization Z23 ; Gastroesophageal reflux disease without esophagitis K21.9 [address] Chronic pain G89.29 [facility] [address] [id number], [place] [address]94266528 Oct, COPD (chronic obstructive pulmonary dise ase) with chronic bronchitis J44.9 and Chronic obstructive pulmonary disease, unspecified COPD type J44.[address] [facility] [facility] [address] [id number], [place] 395132230 Oct, COPD (chronic obstructive pulmonary dise ase) with chronic bronchitis J44.9 and Chronic obstructive pulmonary disease, unspecified COPD type J44.9 [facility] [address] [id number], [place] 763807209 Oct, COPD (chronic obstructive pulmonary dise ase) with chronic bronchitis J44.9 and Chronic obstructive pulmonary disease, unspecified COPD type J44.[address] [facility] [facility] [address] [id number], [place] 425619023 Oct, Benign essential hypertension I10 and Ne ck pain M54.2 [facility] [employer]TER [employer] [id number], [place] 837744177 Sep, PAD (peripheral artery disease) I73.9 ; Claudication of both lower extremities I73.9 ; Bilateral carotid artery disease I77.9 ; Benign essential hypertension I10 ; Hyperlipemia E78.5 and Dyspnea on exertion R06.09 [facility] [employer]TER [employer] [id number], [place] 367974512 Aug, Benign essential hypertension I10 ; Vannessa roesophageal reflux disease without esophagitis K21.9 and Cervical radiculopathy M54.12 [facility] [employer]TER [employer] [id number], [place] [id number] Aug, Gastroesophageal reflux disease without esophagitis K21.9 [facility]ITALVanceInfo TechnologiesK [facility] [employer] [id number], [place] 559090437 Aug, COPD (chronic obstructive pulmonary dise ase) with chronic bronchitis J44.9 [facility]ITAL[facility]anceInfo TechnologiesK [address] [id number], [place] [id number] Jul, [facility] [address] [id number], [place] [id number] Jul, Benign essential hypertension I10 [facility] [employer]TER [employer] [id number], [place] [id number] Jul, [facility] [employer]TER [employer] [id number], [place] 306759550 Jul, COPD (chronic obstructive pulmonary dise ase) with chronic bronchitis J44.9 [facility] [address] [id number] [place] 302887605 Jul, Neck pain M54.2 [facility] [address] [id number] [place] 851817295 Jun, Claudication of both lower extremities I 73.9 ; PAD (peripheral artery disease) I73.9 ; Bilateral carotid artery disease I77.9 ; CAD (coronary artery disease) I25.10 ; Tobacco abuse Z72.0 ; Benign essential hypertension I10 ; Hyperlipemia E78.5 and Non-rheumatic mitral valve stenosis I34.2 [facility] [address] [id number] [place] 097696036 Jun, Chronic obstructive pulmonary disease, u nspecified COPD type J44.9 [facility] [address] [id number], [place] 654525572 May, [facility] [address] [id number], [place] 609489819 May, Chronic obstructive pulmonary disease, u nspecified COPD type J44.9 [facility] [address] [id number], [place] 280934312 May, Neck pain M54.2 ; Chronic obstructive pu lmonary disease, unspecified COPD type J44.9 and Cervical radiculopathy M54.12 [facility] [address] [id number] [place] 119183783 May, [facility] [address] [id number] [place] [id number] Apr, [facility] [address] [address] [id number] [place] 014289384 Apr, Gastroesophageal reflux disease without esophagitis K21.9 [facility] [address] [id number] [place] 549479968 Apr, COPD (chronic obstructive pulmonary dise ase) with chronic bronchitis J44.9 [facility] [address] [id number], [place] 085262328 Apr, [facility] [address] [id number] [place] 53512[address] Apr, [facility] [address] [id number] [place] 914225606 Apr, COPD (chronic obstructive pulmonary dise ase) with chronic bronchitis J44.9 ; Benign essential hypertension I10 ; Tobacco abuse counseling Z71.6 and Hyperlipemia E78.[address] [facility] [address] [id number], [place] [id number] February, COPD (chronic obstructive pulmonary dise ase) with chronic bronchitis J44.[address] [facility] [address] [id number], [place] 404436007 Jan, [facility] [address] [id number], [place] 536994850 Jan, COPD (chronic obstructive pulmonary dise ase) with chronic bronchitis J44.[address] [facility] [address] [id number], [place] [id number] Oct, COPD (chronic obstructive pulmonary dise ase) with chronic bronchitis J44.[address] [facility] [address] [id number], [place] 596907297 Oct, Winter itch L29.[address] [facility] [id number], [place] 687453215 Oct, COPD (chronic obstructive pulmonary dise ase) with chronic bronchitis J44.9 ; Benign essential hypertension I10 ; Tobacco abuse Z72.0 and Gastroesophageal reflux disease without esophagitis K21.[address] [facility] [id number] [place] 327802046 Sep, Benign essential hypertension I10 [facility] [address] [id number], [place] 038531304 Aug, [facility] [address] [id number], [place] 678605331 Jul, [facility] [address] [id number], [place] 189240082 Apr, [facility] MarketsTER [address] [place] [address] AVE [id number], [place] [id number] Apr, Abdominal bloating R14.0 ; Fatty liver K 76.0 ; Diverticulosis of intestine without bleeding, unspecified intestinal tract location K57.90 ; Chronic obstructive pulmonary disease, unspecified COPD type J44.9 and Benign essential hypertension I10 [facility] [address] [id number], [place] 875679441 Apr, Mild early onset dysthymic disorder, in partial remission, with melancholic features, 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 AV [id number], [place] [id number] Nov, [facility] [id number], [place] 524263052 Nov, [facility]TER [employer] [facility] A[address] [id number], [place] 787090961 Nov, Chronic bronchitis J42 ; Tobacco abuse Z 72.0 and Tobacco abuse counseling Z71.6 [facility] MarketsTER [employer] [address] [id number], [place] [id number] Oct, [facility] [address] [id number], [place] 908692399 Oct, Chronic bronchitis J42 ; Tobacco abuse Z 72.0 and Benign essential hypertension I10 [facility] [address] [id number], [place] 809687500 Oct, Chronic bronchitis J42 ; Tobacco abuse Z 72.0 ; Tobacco abuse counseling Z71.6 ; Benign essential hypertension I10 and Hyperlipemia E78.5 [facility] [address] [facility] [id number] [address] [place] [address] Sep, [facility] [address] [id number], [place] [id number] Jul, [facility] [address] [place] [id number] [address] [place] [address] Jul, Essential (primary) hyperten aida I10 [facility] [address] [facility] [id number] [address] [place] [address] Jul, [facility] [address] [facility] [address] [id number], [place] [id number] Jul, [facility] [address] 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 and Cough 786.[address] [id number], [place] [id number] February, [address] [id number], [place] 876034302 February, Status post bilateral carotid endarterec vito V45.89 ; CAD (coronary artery disease) 414.00 ; Benign essential hypertension 401.1 ; Hyperlipemia 272.4 ; Tobacco abuse 305.1 ; Tobacco abuse counseling V65.42 and Chronic bronchitis 491.9 [facility] [address] [facility] [id number] [address] [place] [address] Jan, [facility] [address] [id number] [address] [place] [address], [place] [address] Jan, [facility] [address] [id number] [address] [place] [address], [place] [address] Dec, [facility] [address] [id number] [address] [place] [address], [place] [address] Dec, [facility] [address] [id number] [address] [place] [address], [place] [address] Nov, 2014 [facility] [address] [id number] [address] [place] [address], [place] [address] Nov, 2014 [facility] [address] [id number] [address] [place] [address], [place] [address] Nov, 2014 [facility] [address] [id number] [address] [place] [address], [place] [address] Nov, [facility] [address] [id number] [address] [place] [address], [place] [address] Nov, [facility] [address] [id number] [address] [place] [address], [place] [address] Nov, [facility] [address] [id number] [address] [place] [address], [place] [address] Nov, [facility] [address] [id number] [address] [place] [address], [place] [address] Nov, [facility] [address] [id number] [address] [place] [address], [place] [address] Nov, [facility] [address] [id number] [address] [place] [address], [place] [address] Oct, [facility] [address] [id number] [address] [place] [address], [place] [address] Oct, [facility] [address] [id number] [address] [place] [address], [place] [address] Oct, [facility] [address] [id number] [address] [place] [address] Oct, [facility] [address] [id number] [address] [place] [address], [place] [address] Oct, [facility] [address] [id number] [address] [place] [address], [place] [address] Oct, [facility] [address] [id number] [address] [place] [address], [place] [address] Oct, [facility] [address] [id number] [address] [place] [address] Oct, [facility] [address] [id number] [address] [place] [address], [place] [address] Oct, [facility] [address] [id number] [address] [place] [address] Oct, [facility] [address] [id number] [place] [id number] Oct, [facility] [address] [id number] [address] [place] [address] Oct, [facility] [address] [id number] [address] [place] [address], [place] [address] Sep, [facility] [address] [id number] [address] [place] [address], [place] [address] Sep, [facility] [address] [id number] [address] [place] [address] Aug, [facility] [address] [id number] [address] [place] [address] Aug, [facility] [address] [id number] [address] [place] [address], [place] [address] Aug, [facility] [address] [id number] [address] [place] [address], [place] [address] Aug, [facility] [address] [id number] [address] [place] [address], [place] [address] Jul, [facility] [address] [id number] [address] [place] [address], [place] [address] Jul, [facility] [address] [id number] [address] [place] [address], [place] [address] Jun, [facility] [address] [id number] [address] [place] [address], [place] [address] Jun, [facility] [address] [id number] [address] [place] [address], [place] [address] May, [facility] [address] [id number] [address] [place] [address], [place] [address] May, [facility] [address] [id number] [address] [place] [address], [place] [address] May, [facility] [address] [id number] [address] [place] [address], [place] [address] May, [facility] [address] [id number] [address] [place] [address], [place] [address] Jan, [facility] [address] [id number] [address] [place] [address], [place] [address] Jan, [facility] [address] [id number] [address] [place] [address], [place] [address] Nov, [facility] [address] [id number] [address] [place] [address], [place] [address] Nov, [facility] [address] [id number] [address] [place] [address], [place] [address] Nov, [facility] [address] [id number] [address] [place] [address], [place] [address] Nov, [facility] [address] [id number] [address] [place] [address], [place] [address] Nov, [facility] [address] [id number] [address] [place] [address], [place] [address] Nov, [facility] [address] [id number] [address] [place] [address], [place] [address] Nov, [facility] [address] [id number] [address] [place] [address], [place] [address] Nov, [facility] [address] [id number] [address] [place] [address], [place] [address] Nov, [facility] [address] [id number] [address] [place] [address], [place] [address] Nov, [facility] [address] [id number] [address] [place] [address], [place] [address] Oct, [facility] [address] [id number] [address] [place] [address], [place] [address] Oct, [facility] [address] [id number] [address] [place] [address], [place] [address] Oct, [facility] [address] [id number] [address] [place] [address], [place] [address] Oct, [facility] [address] [id number] [address] [place] [address], [place] [address] Sep, [facility] [address] [id number] [address] [place] [address], [place] [address] Sep, [facility] [address] [id number] [address] [place] [address], [place] [address] Aug, [facility] [address] [id number] [address] [place] [address], [place] [address] Aug, [facility] [address] [id number] [address] [place] [address], [place] [address] Aug, [facility] [address] [id number] [address] [place] [address], [place] [address] Aug, [facility] [address] [id number] [address] [place] [address], [place] [address] Aug, [facility] [address] [id number] [address] [place] [address], [place] [address] Aug, [facility] [address] [id number] [address] [place] [address], [place] [address] Aug, [facility] [address] [id number] [address] [place] [address], [place] [address] Aug, [facility] [address] [id number] [address] [place] [address], [place] [address] Jul, [facility] [address] [id number] [address] [place] [address], [place] [address] Jul, [facility] [address] [id number] [address] [place] [address], [place] [address] Jul, [facility] [address] [id number] [address] [place] [address], [place] [address] Jul, [facility] [address] [id number] [address] [place] [address], [place] [address] Jul, [facility] [address] [id number] [address] [place] [address], [place] [address] Jun, [facility] [address] [id number] [address] [place] [address], [place] [address] May, [facility] [address] [id number] [address] [place] [address], [place] [address] Apr, [facility] [address] [id number] [address] [place] [address], [place] [address] February, [facility] [address] [id number] [address] [place] [address], [place] [address] Jan, [facility] [address] [id number] [address] [place] [address], [place] [address] Jan, [facility] [address] [id number] [address] [place] [address], [place] [address] Dec, [facility] [address] [id number] [address] [place] [address], [place] [address] Dec, [facility] [address] [id number] [address] [place] [address], [place] [address] Dec, [facility] [address] [facility] [id number] [address] [place] [phone] Nov, [facility] [address] [facility] [id number] [address] [place] [phone] Nov, [facility] [address] [facility] [id number] [address] [place] [id number] Nov, [facility] [address] [facility] [id number] [address] [place] [phone] Nov, IMMUNIZATIONS No Known Immunizations SOCIAL HISTORY Never Assessed REASON FOR VISIT PLAN OF CARE VITAL SIGNS Height 62 in 2014-12-01 Weight 140.06 lbs 2014-12-01 Temperature 97.3 degrees Fahrenheit 2014-12-01 Heart Rate 70 bpm 2014-12-01 Respiratory Rate 16 2014-12-01 Blood pressure systolic 124 mmHg 2014-12-01 Blood pressure diastolic 70 mmHg 2014-12-01 MEDICATIONS Unknown Medications RESULTS No Results PROCEDURES Procedure Date Ordered Result Body Site CULTURE, BACTERIA, OTHER Dec 01, 2014 DRAINAGE OF SKIN ABSCESS Dec 01, 2014 INSTRUCTIONS MEDICATIONS ADMINISTERED No Known Medications MEDICAL (GENERAL) HISTORY Type Description Date Medical History GERD Medical History hypertension Medical History 1999 mild stroke syndrome- C T head 02/2015 showed chronic ischemic changes Medical History chronic neck and back pain Medical History [place] x's 2 1996 and 2011 Medical History [...]
--- OUTSIDE RECORDS SUMMARY | 2020-04-06 06:55 | XMS REPORT ---
Author Author Jermaine CAMPOS [facility] Address [address] [place] [address] Care Team Providers Care Canary Breeder Name Role Phone TIFFANIE CAMPOS Unavailable PROBLEMS Type Condition ICD9-CM Code TKH49-SK Code Onset Dates Condition S tatus SNOMED Code Problem Chronic pain G89.29 Active 0058640 1 Problem CAD (coronary artery disease) I25.10 Active 07206910 Problem Diverticulosis of intestine without bleeding, unspecified intestinal tract location K57.90 Active 70330324 Problem Fatty liver K76.0 Active 34246070 7 Problem COPD (chronic obstructive pulmonary disease) wit h chronic bronchitis J44.9 Active 998681531 Problem Abdominal bloating R14.0 Active 1 76380634 Problem Bilateral carotid artery disease I77.9 Active 106730991 Problem Hyperlipemia E78.5 Active 3519022 4 Problem Gastroesophageal reflux disease without esophagitis K21.9 Active 361683461 Problem Chronic obstructive pulmonary disease, unspecified COPD ty pe J44.9 Active 16925444 Problem Non-rheumatic mitral regurgitation I34.0 Active 502361504 Problem Claudication I73.9 Active 4115896 6 Problem Degenerative disc disease, cervical M50.30 Active 39393445 Problem PAD (peripheral artery disease) I73.9 Active 258359318 Problem Benign essential hypertension I10 Active 3162674 Problem Pacemaker Z95.0 Active 121177211 Problem Claudication of both lower extremities I73.9 Active 112453178 Problem Chronic bronchitis J42 Active 6 3550767 Problem Tobacco abuse Z72.0 Active 446825 05 Problem Peripheral arterial disease I73.9 Ac tive 345424920 Problem Mixed hyperlipidemia E78.2 Active 485153078 Problem Other chronic pain G89.29 Active 8 8831817 Problem Diet-controlled diabetes mellitus E11.9 Active 841091606 ALLERGIES No Information ENCOUNTERS Encounter Location Date Diagnosis [facility] [address] [facility] [id number] [place] [id number] Mar, [facility] [address] [id number], [place] [address]84[address] Mar, Facet arthritis of cervical region M47.8 12 and Cervical radiculopathy M54.12 [facility] [address] [place] [address] AVE [id number], [place] 712345154 February, Degenerative disc disease, cervical M50. 30 ; Facet arthritis of cervical region M47.812 ; Cervical radiculopathy M54.12 and Pacemaker Z95.0 [facility] [address] [place] [address] AVE [id number], [place] [id number] February, [facility] [address] [place] [address] AVE [id number], [place] [id number] Jan, [facility] [address] [place] [address] AVE [id number], [place] [id number] Sep, Diet-controlled diabetes mellitus E11.9 ; Benign essential hypertension I10 and Tobacco abuse Z72.0 [facility] [address] [id number], [place] [address]80[address] Jul, Hyperlipemia E78.5 and CAD (coronary art janneth disease) I25.10 [facility] [address] [place] [address] AVE [id number], [place] [id number] Jun, CAD (coronary artery disease) I25.10 and Hyperlipemia E78.5 [facility] [address] [place] [address] AVE [id number], [place] [id number] Jun, New onset type 2 diabetes mellitus E11.9 ; S/P CABG (coronary artery bypass graft) Z95.1 ; Benign essential hypertension I10 ; Other chronic pain G89.29 and S/P cardiac pacemaker procedure Z95.0 [facility] [address] [id number], [place] [id number] Jun, [facility] [address] [place] [address] AVE [id number], [place] [id number] May, [facility] [address] [id number], [place] 625431717 May, COPD (chronic obstructive pulmonary dise ase) with chronic bronchitis J44.9 ; Tobacco abuse Z72.0 and Tobacco abuse counseling Z71.[address] [facility] [address] [place] [address] AVE [id number], [place] [id number] Apr, CAD (coronary artery disease) I25.[address] [facility] [address] [place] [address] A[address] [id number], [place] [id number] Mar, Peripheral arterial disease I73.9 [facility] [address] [id number], [place] [id number] February, Chronic pain G89.29 ; Hyperlipemia E78.5 and Benign essential hypertension I[address] [facility] [address] [place] [address] AVE [id number], [place] [id number] Jan, COPD (chronic obstructive pulmonary dise ase) with chronic bronchitis J44.9 [facility] [address] [id number], [place] [id number] Jan, [facility] [address] [id number], [place] 146266721 Jan, Peripheral arterial disease I73.9 ; Carlo gn essential hypertension I10 ; Bilateral carotid artery disease I77.9 ; Claudication of both lower extremities I73.9 ; Mixed hyperlipidemia E78.2 ; Tobacco use Z72.0 and Non- rheumatic mitral regurgitation I34.[address] [facility] [address] [place] [address] A[address] [id number], [place] 044350399 Jan, RUQ pain R10.11 ; Gastroesophageal reflu x disease without esophagitis K21.9 and Change in stool R19.5 [facility] [id number], [place] [id number] Jan, [facility] [address] [id number], [place] 168524960 Jan, Neck pain M54.2 ; Benign essential hyper tension I10 ; COPD (chronic obstructive pulmonary disease) with chronic bronchitis J44.9 and Chronic obstructive pulmonary disease, unspecified COPD type J44.9 [facility] [address] [id number], [place] [id number] Jan, Chronic obstructive pulmonary disease, u nspecified COPD type J44.[address] [facility] [address] [id number], [place] [id number] Dec, [facility] [address] [id number], [place] 567245444 Dec, [facility] [address] [id number], [place] 715833067 Dec, COPD (chronic obstructive pulmonary dise ase) with chronic bronchitis J44.9 [facility] [address] [facility] [id number] [address] [place] [address] Dec, [facility] [address] [facility] [id number] [address] [place] [address] Dec, [facility] [address] [id number], [place] [id number] Nov, [facility] [place] [address] [facility] [address] [id number], [place] 437863426 Nov, Benign essential hypertension I10 and CO PD (chronic obstructive pulmonary disease) with chronic bronchitis J44.9 [facility] [address] [facility] [address] [id number], [place] [id number] Nov, Hyperlipemia E78.5 ; Benign essential hy pertension I10 ; COPD (chronic obstructive pulmonary disease) with chronic bronchitis J44.9 ; Encounter for immunization Z23 ; Gastroesophageal reflux disease without esophagitis K21.9 and Chronic pain G89.[address] [facility] [address] [id number], [place] [id number] Oct, COPD (chronic obstructive pulmonary dise ase) with chronic bronchitis J44.9 and Chronic obstructive pulmonary disease, unspecified COPD type J44.[address] [facility] [address] [id number], [place] [id number] Oct, COPD (chronic obstructive pulmonary dise ase) with chronic bronchitis J44.9 and Chronic obstructive pulmonary disease, unspecified COPD type J44.9 [facility] [address] [id number], [place] [id number] Oct, COPD (chronic obstructive pulmonary dise ase) with chronic bronchitis J44.9 and Chronic obstructive pulmonary disease, unspecified COPD type J44.[address] [facility] [address] [id number], [place] [id number] Oct, Benign essential hypertension I10 and Ne ck pain M54.2 [facility] [address] [id number], [place] 007889764 Sep, PAD (peripheral artery disease) I73.9 ; Claudication of both lower extremities I73.9 ; Bilateral carotid artery disease I77.9 ; Benign essential hypertension I10 ; Hyperlipemia E78.5 and Dyspnea on exertion R06.09 [facility] [address] [id number], [place] 048298148 Aug, Benign essential hypertension I10 ; Vannessa roesophageal reflux disease without esophagitis K21.9 and Cervical radiculopathy M54.12 [facility] [address] [id number], [place] 055459013 Aug, Gastroesophageal reflux disease without esophagitis K21.9 [facility]CodeK [facility] [address] [id number], [place] 602992364 Aug, COPD (chronic obstructive pulmonary dise ase) with chronic bronchitis J44.9 [facility] [address] [id number], [place] [id number] Jul, [facility] [address] [id number], [place] 449123412 Jul, Benign essential hypertension I10 [facility] [address] [id number], [place] 012176443 Jul, [facility] [address] [id number], [place] [id number] Jul, COPD (chronic obstructive pulmonary dise ase) with chronic bronchitis J44.9 [facility] [address] [id number] [place], [place] [id number] Jul, Neck pain M54.2 [facility] [address] [id number] [place] [id number] Jun, Claudication of both lower extremities I 73.9 ; PAD (peripheral artery disease) I73.9 ; Bilateral carotid artery disease I77.9 ; CAD (coronary artery disease) I25.10 ; Tobacco abuse Z72.0 ; Benign essential hypertension I10 ; Hyperlipemia E78.5 and Non-rheumatic mitral valve stenosis I34.2 [facility] [address] [id number] [place], [place] [id number] Jun, Chronic obstructive pulmonary disease, u nspecified COPD type J44.9 [facility] [address] [id number], [place] 714813585 May, [facility] [address] [id number], [place] [id number] May, Chronic obstructive pulmonary disease, u nspecified COPD type J44.9 [facility] [address] [id number], [place] [id number] May, Neck pain M54.2 ; Chronic obstructive pu lmonary disease, unspecified COPD type J44.9 and Cervical radiculopathy M54.12 [facility] [address] [id number] [place] [id number] May, [facility] [address] [id number] [place] [id number] Apr, [facility] [address] [id number] [place] [id number] Apr, Gastroesophageal reflux disease without esophagitis K21.9 [facility] [address] [id number] [place] [id number] Apr, COPD (chronic obstructive pulmonary dise ase) with chronic bronchitis J44.9 [facility] [address] [id number], [place] [id number] Apr, [facility] [id number] [place] 218035129 Apr, [facility] [address] [id number] [place] [id number] Apr, COPD (chronic obstructive pulmonary dise ase) with chronic bronchitis J44.9 ; Benign essential hypertension I10 ; Tobacco abuse counseling Z71.6 and Hyperlipemia E78.[address] [facility] [address] [id number], [place] 590308729 February, COPD (chronic obstructive pulmonary dise ase) with chronic bronchitis J44.[address] [facility] [address] [id number], [place] [id number] Jan, [facility] [address] [id number], [place] [id number] Jan, COPD (chronic obstructive pulmonary dise ase) with chronic bronchitis J44.[address] [facility] [address] [id number], [place] 790644530 Oct, COPD (chronic obstructive pulmonary dise ase) with chronic bronchitis J44.[address] [facility] [address] [id number], [place] 187614662 Oct, Winter itch L29.[address] [facility] [address] [id number], [place] [id number] Oct, COPD (chronic obstructive pulmonary dise ase) with chronic bronchitis J44.9 ; Benign essential hypertension I10 ; Tobacco abuse Z72.0 and Gastroesophageal reflux disease without esophagitis K21.[address] [facility] [id number] [place], [place] [id number] Sep, Benign essential hypertension I10 [facility] [address] [id number], [place] 488728664 Aug, [facility] [address] [id number], [place] 967002477 Jul, [facility] [address] [id number], [place] [id number] Apr, [facility]olver[facility] [address] [place] [address] AVE [id number], [place] 602731671 Apr, Abdominal bloating R14.0 ; Fatty liver K 76.0 ; Diverticulosis of intestine without bleeding, unspecified intestinal tract location K57.90 ; Chronic obstructive pulmonary disease, unspecified COPD type J44.9 and Benign essential hypertension I10 [facility] [address] [id number], [place] [id number] Apr, Mild early onset dysthymic disorder, in partial remission, with melancholic features, 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 AV [id number], [place] [id number] Nov, [facility] [address] [id number], [place] [id number] Nov, [facility] [employer] [facility] A[address] [id number], [place] [id number] Nov, Chronic bronchitis J42 ; Tobacco abuse Z 72.0 and Tobacco abuse counseling Z71.6 [facility] [address]TER [address] [id number], [place] [id number] Oct, [facility]ITAL[facility] A[address] [id number], [place] 977296334 Oct, Chronic bronchitis J42 ; Tobacco abuse Z 72.0 and Benign essential hypertension I10 [facility] [address] [id number], [place] [id number] Oct, Chronic bronchitis J42 ; Tobacco abuse Z 72.0 ; Tobacco abuse counseling Z71.6 ; Benign essential hypertension I10 and Hyperlipemia E78.5 [facility] [address] [facility] [id number] [address] [place] [address] Sep, [facility] [address] [id number], [place] [id number] Jul, [facility] [address] [place] [id number] [address] [place] [address] Jul, Essential (primary) hyperten aida I10 [facility] [address] [facility] [id number] [address] [place] [address] Jul, [facility] [address] [facility] [address] [id number], [place] [id number] Jul, [facility] [address] 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 and Cough 786.[address] [id number], [place] [id number] February, [address] [id number], [place] 165730465 February, Status post bilateral carotid endarterec vito V45.89 ; CAD (coronary artery disease) 414.00 ; Benign essential hypertension 401.1 ; Hyperlipemia 272.4 ; Tobacco abuse 305.1 ; Tobacco abuse counseling V65.42 and Chronic bronchitis 491.9 [facility] [address] [facility] [id number] [address] [place] [id number] Jan, [facility] [address] [id number] [address] [place] [address], [place] [address] Jan, [facility] [address] [id number] [address] [place] [address], [place] [address] Dec, [facility] [address] [id number] [address] [place] [address], [place] [address] Dec, [facility] [address] [id number] [address] [place] [address], [place] [address] Nov, 2014 [facility] [address] [id number] [address] [place] [address], [place] [address] Nov, 2014 [facility] [address] [id number] [address] [place] [address], [place] [address] Nov, 2014 [facility] [address] [id number] [address] [place] [address], [place] [address] Nov, [facility] [address] [id number] [address] [place] [address], [place] [address] Nov, [facility] [address] [id number] [address] [place] [address], [place] [address] Nov, [facility] [address] [id number] [address] [place] [address], [place] [address] Nov, [facility] [address] [id number] [address] [place] [address], [place] [address] Nov, [facility] [address] [id number] [address] [place] [address], [place] [address] Nov, [facility] [address] [id number] [address] [place] [address], [place] [address] Oct, [facility] [address] [id number] [address] [place] [address], [place] [address] Oct, [facility] [address] [id number] [address] [place] [address], [place] [address] Oct, [facility] [address] [id number] [address] [place] [id number] Oct, [facility] [address] [id number] [address] [place] [address], [place] [address] Oct, [facility] [address] [id number] [address] [place] [address], [place] [address] Oct, [facility] [address] [id number] [address] [place] [address], [place] [address] Oct, [facility] [address] [id number] [address] [place] [address] Oct, [facility] [address] [id number] [address] [place] [address], [place] [address] Oct, [facility] [address] [id number] [address] [place] [address] Oct, [facility] [address] [id number] [place], [facility] [id number] Oct, [facility] [address] [id number] [address] [place] [address] Oct, [facility] [address] [id number] [address] [place] [address], [place] [address] Sep, [facility] [address] [id number] [address] [place] [address], [place] [address] Sep, [facility] [address] [id number] [address] [place] [address] Aug, [facility] [address] [id number] [address] [place] [address] Aug, [facility] [address] [id number] [address] [place] [address], [place] [address] Aug, [facility] [address] [id number] [address] [place] [address], [place] [address] Aug, [facility] [address] [id number] [address] [place] [address], [place] [address] Jul, [facility] [address] [id number] [address] [place] [address], [place] [address] Jul, [facility] [address] [id number] [address] [place] [address], [place] [address] Jun, [facility] [address] [id number] [address] [place] [address], [place] [address] Jun, [facility] [address] [id number] [address] [place] [address], [place] [address] May, [facility] [address] [id number] [address] [place] [address], [place] [address] May, [facility] [address] [id number] [address] [place] [address], [place] [address] May, [facility] [address] [id number] [address] [place] [address], [place] [address] May, [facility] [address] [id number] [address] [place] [address], [place] [address] Jan, [facility] [address] [id number] [address] [place] [address], [place] [address] Jan, [facility] [address] [id number] [address] [place] [address], [place] [address] Nov, [facility] [address] [id number] [address] [place] [address], [place] [address] Nov, [facility] [address] [id number] [address] [place] [address], [place] [address] Nov, [facility] [address] [id number] [address] [place] [address], [place] [address] Nov, [facility] [address] [id number] [address] [place] [address], [place] [address] Nov, [facility] [address] [id number] [address] [place] [address], [place] [address] Nov, [facility] [address] [id number] [address] [place] [address], [place] [address] Nov, [facility] [address] [id number] [address] [place] [address], [place] [address] Nov, [facility] [address] [id number] [address] [place] [address], [place] [address] Nov, [facility] [address] [id number] [address] [place] [address], [place] [address] Nov, [facility] [address] [id number] [address] [place] [address], [place] [address] Oct, [facility] [address] [id number] [address] [place] [address], [place] [address] Oct, [facility] [address] [id number] [address] [place] [address], [place] [address] Oct, [facility] [address] [id number] [address] [place] [address], [place] [address] Oct, [facility] [address] [id number] [address] [place] [address], [place] [address] Sep, [facility] [address] [id number] [address] [place] [address], [place] [address] Sep, [facility] [address] [id number] [address] [place] [address], [place] [address] Aug, [facility] [address] [id number] [address] [place] [address], [place] [address] Aug, [facility] [address] [id number] [address] [place] [address], [place] [address] Aug, [facility] [address] [id number] [address] [place] [address], [place] [address] Aug, [facility] [address] [id number] [address] [place] [address], [place] [address] Aug, [facility] [address] [id number] [address] [place] [address], [place] [address] Aug, [facility] [address] [id number] [address] [place] [address], [place] [id number] Aug, [facility] [address] [id number] [address] [place] [address], [place] [phone] Aug, [facility] [address] [id number] [address] [place] [address], [place] [address] Jul, [facility] [address] [id number] [address] [place] [address], [place] [address] Jul, [facility] [address] [id number] [address] [place] [address], [place] [address] Jul, [facility] [address] [id number] [address] [place] [address], [place] [address] Jul, [facility] [address] [id number] [address] [place] [address], [place] [address] Jul, [facility] [address] [id number] [address] [place] [address], [place] [address] Jun, [facility] [address] [id number] [address] [place] [address], [place] [id number] May, [facility] [address] [id number] [address] [place] [address], [place] [address] Apr, [facility] [address] [id number] [address] [place] [address], [place] [address] February, [facility] [address] [id number] [address] [place] [address], [place] [address] Jan, [facility] [address] [id number] [address] [place] [address], [place] [address] Jan, [facility] [address] [id number] [address] [place] [address], [place] [address] Dec, [facility] [address] [id number] [address] [place] [address], [place] [address] Dec, [facility] [address] [id number] [address] [place] [address], [place] [address] Dec, [facility] [address] [facility] [id number] [address] [place] [phone] Nov, [facility] [address] [facility] [id number] [address] [place] [phone] Nov, [facility] [address] [facility] [id number] [address] [place] [phone] Nov, [facility] [address] [facility] [id number] [address] [place] [id number] Nov, IMMUNIZATIONS No Known Immunizations SOCIAL HISTORY [...] chronic neck and back pain Medical History [place] x's 2 1996 and 2011 Medical History [...] Surgical History coronary angiography Dr Mane thakur [facility]- normal EF, LV function,-minimal RCA blockage <20% 1996 [facility], mild nonspecific bulbar duodenitis [...]
--- OUTSIDE RECORDS SUMMARY | 2020-04-06 06:55 | XMS REPORT ---
Author Author Jermaine CAMPOS Organization [facility] Address [address] [place] [address] Care Team Providers Care Exhibits Curator Name Role Phone TIFFANIE CAMPOS Unavailable PROBLEMS Type Condition ICD9-CM Code WPL21-KR Code Onset Dates Condition S tatus SNOMED Code Problem Chronic pain G89.29 Active 8775856 1 Problem CAD (coronary artery disease) I25.10 Active 75768029 Problem Diverticulosis of intestine without bleeding, unspecified intestinal tract location K57.90 Active 01383280 Problem Fatty liver K76.0 Active 32688671 7 Problem COPD (chronic obstructive pulmonary disease) wit h chronic bronchitis J44.9 Active 623542327 Problem Abdominal bloating R14.0 Active 1 41884019 Problem Bilateral carotid artery disease I77.9 Active 732211581 Problem Hyperlipemia E78.5 Active 6872081 4 Problem Gastroesophageal reflux disease without esophagitis K21.9 Active 610391850 Problem Chronic obstructive pulmonary disease, unspecified COPD ty pe J44.9 Active 66757380 Problem Non-rheumatic mitral regurgitation I34.0 Active 640244292 Problem Claudication I73.9 Active 3219185 6 Problem Degenerative disc disease, cervical M50.30 Active 94299671 Problem PAD (peripheral artery disease) I73.9 Active 505253693 Problem Benign essential hypertension I10 Active 6708783 Problem Pacemaker Z95.0 Active 447530401 Problem Claudication of both lower extremities I73.9 Active 229327078 Problem Chronic bronchitis J42 Active 6 2380139 Problem Tobacco abuse Z72.0 Active 816713 05 Problem Peripheral arterial disease I73.9 Ac tive 695302647 Problem Mixed hyperlipidemia E78.2 Active 518188738 Problem Other chronic pain G89.29 Active 8 5666199 Problem Diet-controlled diabetes mellitus E11.9 Active 157724349 ALLERGIES No Information ENCOUNTERS Encounter Location Date Diagnosis [facility] [address] [facility] [id number] [place] [id number] Mar, [facility] [employer] [id number], [place] [id number] Mar, Facet arthritis of cervical region M47.8 12 and Cervical radiculopathy M54.12 [facility] [employer] [place] [address] AVE [id number], [place] [address]64170421 February, Degenerative disc disease, cervical M50. 30 ; Facet arthritis of cervical region M47.812 ; Cervical radiculopathy M54.12 and Pacemaker Z95.0 [facility] [employer] [place] [address] AVE [id number], [place] [id number] February, [facility] [employer] [place] [address] AVE [id number], [place] [id number] Jan, [facility] [employer] [place] [address] AVE [id number], [place] [id number] Sep, Diet-controlled diabetes mellitus E11.9 ; Benign essential hypertension I10 and Tobacco abuse Z72.0 [facility] [employer] [id number], [place] [address] Jul, Hyperlipemia E78.5 and CAD (coronary art janneth disease) I25.10 [facility] [employer] [place] [address] AVE [id number], [place] 329561820 Jun, CAD (coronary artery disease) I25.10 and Hyperlipemia E78.5 [facility] [employer] [place] [address] AVE [id number], [place] 046395232 Jun, New onset type 2 diabetes mellitus E11.9 ; S/P CABG (coronary artery bypass graft) Z95.1 ; Benign essential hypertension I10 ; Other chronic pain G89.29 and S/P cardiac pacemaker procedure Z95.0 [facility] [employer] [id number], [place] 998189297 Jun, [facility] [employer] [place] [address] AVE [id number], [place] [address]59804606 May, [facility] [address] [id number], [place] [address]187[address] May, COPD (chronic obstructive pulmonary dise ase) with chronic bronchitis J44.9 ; Tobacco abuse Z72.0 and Tobacco abuse counseling Z71.6 [facility] [employer] [place] [address] AVE [id number], [place] [id number] Apr, CAD (coronary artery disease) I25.10 [facility] [employer] [place] [address] AVE [id number], [place] 588685980 Mar, Peripheral arterial disease I73.9 [facility] [address] [id number], [place] [id number] February, Chronic pain G89.29 ; Hyperlipemia E78.5 and Benign essential hypertension I10 [facility] [employer] [place] [address] AVE [id number], [place] [id number] Jan, COPD (chronic obstructive pulmonary dise ase) with chronic bronchitis J44.9 [facility] [address] [id number], [place] [address]8101[address] Jan, [facility] [address] [id number], [place] 853899846 Jan, Peripheral arterial disease I73.9 ; Carlo gn essential hypertension I10 ; Bilateral carotid artery disease I77.9 ; Claudication of both lower extremities I73.9 ; Mixed hyperlipidemia E78.2 ; Tobacco use Z72.0 and Non- rheumatic mitral regurgitation I34.0 [facility] [employer] [place] [address] AVE [id number], [place] 501100535 Jan, RUQ pain R10.11 ; Gastroesophageal reflu x disease without esophagitis K21.9 and Change in stool R19.5 [facility] [address] [employer] [address] [id number], [place] [address]60[address] Jan, [facility] [address] [id number], [place] 40489[address]84 Jan, Neck pain M54.2 ; Benign essential hyper tension I10 ; COPD (chronic obstructive pulmonary disease) with chronic bronchitis J44.9 and Chronic obstructive pulmonary disease, unspecified COPD type J44.9 [facility] [address] [id number], [place] 701668405 Jan, Chronic obstructive pulmonary disease, u nspecified COPD type J44.9 [facility] [address] [address] [id number], [place] [id number] Dec, [facility] [address] [id number], [place] [address] Dec, [facility] [place] [address] [id number], [place] [address]609[address] Dec, COPD (chronic obstructive pulmonary dise ase) with chronic bronchitis J44.9 [facility] [address] [facility] [id number] [address] [place] [phone] Dec, [facility] [address] [facility] [id number] [address] [place] [address] Dec, [facility] [address] [id number], [place] [id number] Nov, [facility] [place] [address] [facility] [address] [id number], [place] 834393383 Nov, Benign essential hypertension I10 and CO PD (chronic obstructive pulmonary disease) with chronic bronchitis J44.9 [facility] [address] [facility] [address] [id number], [place] 721517367 Nov, Hyperlipemia E78.5 ; Benign essential hy pertension I10 ; COPD (chronic obstructive pulmonary disease) with chronic bronchitis J44.9 ; Encounter for immunization Z23 ; Gastroesophageal reflux disease without esophagitis K21.9 and Chronic pain G89.29 [facility] [address] [id number], [place] 400824038 Oct, COPD (chronic obstructive pulmonary dise ase) with chronic bronchitis J44.9 and Chronic obstructive pulmonary disease, unspecified COPD type J44.9 [facility] [address] [id number], [place] [id number] Oct, COPD (chronic obstructive pulmonary dise ase) with chronic bronchitis J44.9 and Chronic obstructive pulmonary disease, unspecified COPD type J44.9 [facility] [address] [id number], [place] 115263805 Oct, COPD (chronic obstructive pulmonary dise ase) with chronic bronchitis J44.9 and Chronic obstructive pulmonary disease, unspecified COPD type J44.9 [facility] [address] [id number], [place] 703849390 Oct, Benign essential hypertension I10 and Ne ck pain M54.2 [facility] [employer] [id number], [place] [address]82168989 Sep, PAD (peripheral artery disease) I73.9 ; Claudication of both lower extremities I73.9 ; Bilateral carotid artery disease I77.9 ; Benign essential hypertension I10 ; Hyperlipemia E78.5 and Dyspnea on exertion R06.09 [facility] [employer] [id number], [place] 543734177 Aug, Benign essential hypertension I10 ; Vannessa roesophageal reflux disease without esophagitis K21.9 and Cervical radiculopathy M54.12 [facility] [employer] [id number], [place] 140720044 Aug, Gastroesophageal reflux disease without esophagitis K21.9 [facility]ITAL[facility]eaChemK [facility] [employer] [id number], [place] 744927157 Aug, COPD (chronic obstructive pulmonary dise ase) with chronic bronchitis J44.9 [facility]ChemK [address] [id number], [place] 963545211 Jul, [facility] [address] [id number], [place] 620304812 Jul, Benign essential hypertension I10 [facility] [employer] [id number], [place] [id number] Jul, [facility] [employer] [id number], [place] 885544882 Jul, COPD (chronic obstructive pulmonary dise ase) with chronic bronchitis J44.9 [facility] [address] [id number] [place] [address] Jul, Neck pain M54.2 [facility] [address] [address] [id number] [place] [address] Jun, Claudication of both lower extremities I 73.9 ; PAD (peripheral artery disease) I73.9 ; Bilateral carotid artery disease I77.9 ; CAD (coronary artery disease) I25.10 ; Tobacco abuse Z72.0 ; Benign essential hypertension I10 ; Hyperlipemia E78.5 and Non-rheumatic mitral valve stenosis I34.[address] [employer] [address] [id number] [place] [address] Jun, Chronic obstructive pulmonary disease, u nspecified COPD type J44.9 [facility] [address] [id number], [place] 645275378 May, [employer] [address] [id number], [place] 030708975 May, Chronic obstructive pulmonary disease, u nspecified COPD type J44.9 [facility] [address] [id number], [place] 194103814 May, Neck pain M54.2 ; Chronic obstructive pu lmonary disease, unspecified COPD type J44.9 and Cervical radiculopathy M54.12 [facility] [address] [id number] [place] [id number] May, [facility] [address] [id number] [place] [address]887[address] Apr, [facility] [address] [address] [id number] [place] [address] Apr, Gastroesophageal reflux disease without esophagitis K21.9 [employer] [address] [id number] [place] [address] Apr, COPD (chronic obstructive pulmonary dise ase) with chronic bronchitis J44.9 [facility] [address] [address] [id number], [place] 337856416 Apr, [facility] [id number] [place] [address] Apr, [facility] [address] [id number] [place] 2360[address] Apr, COPD (chronic obstructive pulmonary dise ase) with chronic bronchitis J44.9 ; Benign essential hypertension I10 ; Tobacco abuse counseling Z71.6 and Hyperlipemia E78.[address] [facility] [address] [id number], [place] [id number] February, COPD (chronic obstructive pulmonary dise ase) with chronic bronchitis J44.[address] [facility] [address] [id number], [place] 996156866 Jan, [facility] [address] [id number], [place] [id number] Jan, COPD (chronic obstructive pulmonary dise ase) with chronic bronchitis J44.[address] [facility] [address] [id number], [place] 954139982 Oct, COPD (chronic obstructive pulmonary dise ase) with chronic bronchitis J44.[address] [facility] [address] [id number], [place] 542401462 Oct, Winter itch L29.[address] [facility] [address] [id number], [place] 432946918 Oct, COPD (chronic obstructive pulmonary dise ase) with chronic bronchitis J44.9 ; Benign essential hypertension I10 ; Tobacco abuse Z72.0 and Gastroesophageal reflux disease without esophagitis K21.[address] [facility] [address] [id number] [place] [id number] Sep, Benign essential hypertension I10 [facility] [address] [id number], [place] 396675236 Aug, [facility] [address] [id number], [place] 752237066 Jul, [facility] [address] [id number], [place] 948562161 Apr, [facility] [address] [place] [address] AVE [id number], [place] 997691097 Apr, Abdominal bloating R14.0 ; Fatty liver K 76.0 ; Diverticulosis of intestine without bleeding, unspecified intestinal tract location K57.90 ; Chronic obstructive pulmonary disease, unspecified COPD type J44.9 and Benign essential hypertension I10 [facility] [address] [id number], [place] 833447290 Apr, Mild early onset dysthymic disorder, in partial remission, with melancholic features, 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 [facility] [employer] [facility] [id number], [place] 785786545 Mar, Abdominal muscle strain, initial encount er S39.011A [facility] [employer] [place] [address] [id number], [place] 017604883 Jan, Pancreatitis K85.9 ; Abdominal bloating R14.0 ; Chronic bronchitis J42 and Chronic pain G89.29 [facility] [employer] [facility] [address] [id number], [place] 947519178 Nov, [facility] [address] [id number], [place] [id number] Nov, [facility] [employer] [facility] [address] [id number], [place] 638022200 Nov, Chronic bronchitis J42 ; Tobacco abuse Z 72.0 and Tobacco abuse counseling Z71.6 [facility] [employer] [address] [id number], [place] 944976194 Oct, [facility] [id number], [place] 725913223 Oct, Chronic bronchitis J42 ; Tobacco abuse Z 72.0 and Benign essential hypertension I10 [facility] [address] [id number], [place] 763190941 Oct, Chronic bronchitis J42 ; Tobacco abuse Z 72.0 ; Tobacco abuse counseling Z71.6 ; Benign essential hypertension I10 and Hyperlipemia E78.5 [facility] [address] [facility] [id number] [address] [place] [address] Sep, [facility] [address] [id number], [place] [id number] Jul, [facility] [address] [place] [id number] [address] [place] [id number] Jul, Essential (primary) hyperten aida I10 [facility] [address] [facility] [id number] [address] [place] [address] Jul, [facility] [address] [facility] [address] [id number], [place] [id number] Jul, [facility] [address] [facility] [address] [id number], [place] [id number] Jun, Benign essential hypertension 401.1 ; Ge neralized edema 782.3 ; Chronic pain 338.29 and Hyperlipemia 272.[address] [id number], [place] 279719924 May, Upper respiratory infection 465.9 and Co ugh 786.[address] [id number] [place] [id number] Mar, Upper respiratory infection 465.9 ; Toba account executive healthcare abuse 305.1 and Cough 786.[address] [id number], [place] 014224687 February, [address] [id number], [place] 670380698 February, Status post bilateral carotid endarterec vito V45.89 ; CAD (coronary artery disease) 414.00 ; Benign essential hypertension 401.1 ; Hyperlipemia 272.4 ; Tobacco abuse 305.1 ; Tobacco abuse counseling V65.42 and Chronic bronchitis 491.9 [facility] [address] [facility] [id number] [address] [place] [address] Jan, [facility] [address] [id number] [address] [place] [address], [place] [address] Jan, [facility] [address] [id number] [address] [place] [address], [place] [address] Dec, [facility] [address] [id number] [address] [place] [address], [place] [address] Dec, [facility] [address] [id number] [address] [place] [address], [place] [address] Nov, 2014 [facility] [address] [id number] [address] [place] [address], [place] [address] Nov, 2014 [facility] [address] [id number] [address] [place] [address], [place] [address] Nov, 2014 [facility] [address] [id number] [address] [place] [address], [place] [address] Nov, [facility] [address] [id number] [address] [place] [address], [place] [address] Nov, [facility] [address] [id number] [address] [place] [address], [place] [address] Nov, [facility] [address] [id number] [address] [place] [address], [place] [address] Nov, [facility] [address] [id number] [address] [place] [address], [place] [address] Nov, [facility] [address] [id number] [address] [place] [address], [place] [address] Nov, [facility] [address] [id number] [address] [place] [address], [place] [address] Oct, [facility] [address] [id number] [address] [place] [address], [place] [address] Oct, [facility] [address] [id number] [address] [place] [address], [place] [address] Oct, [facility] [address] [id number] [address] [place] [address] Oct, [facility] [address] [id number] [address] [place] [address], [place] [address] Oct, [facility] [address] [id number] [address] [place] [address], [place] [address] Oct, [facility] [address] [id number] [address] [place] [address], [place] [address] Oct, [facility] [address] [id number] [address] [place] [address] Oct, [facility] [address] [id number] [address] [place] [address], [place] [address] Oct, [facility] [address] [id number] [address] [place] [address] Oct, [facility] [address] [id number] [place], [facility] [id number] Oct, [facility] [address] [id number] [address] [place] [address] Oct, [facility] [address] [id number] [address] [place] [address], [place] [address] Sep, [facility] [address] [id number] [address] [place] [address], [place] [address] Sep, [facility] [address] [id number] [address] [place] [address] Aug, [facility] [address] [id number] [address] [place] [address] Aug, [facility] [address] [id number] [address] [place] [address], [place] [address] Aug, [facility] [address] [id number] [address] [place] [address], [place] [address] Aug, [facility] [address] [id number] [address] [place] [address], [place] [address] Jul, [facility] [address] [id number] [address] [place] [address], [place] [address] Jul, [facility] [address] [id number] [address] [place] [address], [place] [address] Jun, [facility] [address] [id number] [address] [place] [address], [place] [address] Jun, [facility] [address] [id number] [address] [place] [address], [place] [address] May, [facility] [address] [id number] [address] [place] [address], [place] [address] May, [facility] [address] [id number] [address] [place] [address], [place] [address] May, [facility] [address] [id number] [address] [place] [address], [place] [address] May, [facility] [address] [id number] [address] [place] [address], [place] [address] Jan, [facility] [address] [id number] [address] [place] [address], [place] [address] Jan, [facility] [address] [id number] [address] [place] [address], [place] [address] Nov, [facility] [address] [id number] [address] [place] [address], [place] [address] Nov, [facility] [address] [id number] [address] [place] [address], [place] [address] Nov, [facility] [address] [id number] [address] [place] [address], [place] [address] Nov, [facility] [address] [id number] [address] [place] [address], [place] [address] Nov, [facility] [address] [id number] [address] [place] [address], [place] [address] Nov, [facility] [address] [id number] [address] [place] [address], [place] [address] Nov, [facility] [address] [id number] [address] [place] [address], [place] [address] Nov, [facility] [address] [id number] [address] [place] [address], [place] [id number] Nov, [facility] [address] [id number] [address] [place] [address], [place] [id number] Nov, [facility] [address] [id number] [address] [place] [address], [place] [address] Oct, [facility] [address] [id number] [address] [place] [address], [place] [address] Oct, [facility] [address] [id number] [address] [place] [address], [place] [id number] Oct, [facility] [address] [id number] [address] [place] [address], [place] [address] Oct, [facility] [address] [id number] [address] [place] [address], [place] [address] Sep, [facility] [address] [id number] [address] [place] [address], [place] [address] Sep, [facility] [address] [id number] [address] [place] [address], [place] [address] Aug, [facility] [address] [id number] [address] [place] [address], [place] [id number] Aug, [facility] [address] [id number] [address] [place] [address], [place] [address] Aug, [facility] [address] [id number] [address] [place] [address], [place] [address] Aug, [facility] [address] [id number] [address] [place] [address], [place] [address] Aug, [facility] [address] [id number] [address] [place] [address], [place] [id number] Aug, [facility] [address] [id number] [address] [place] [address], [place] [address] Aug, [facility] [address] [address] [id number] [address] [place] [address], [place] [address] Aug, [facility] [address] [id number] [address] [place] [address], [place] [id number] Jul, [facility] [address] [id number] [address] [place] [address], [place] [id number] Jul, [facility] [address] [id number] [address] [place] [address], [place] [id number] Jul, [facility] [address] [id number] [address] [place] [address], [place] [id number] Jul, [facility] [address] [id number] [address] [place] [address], [place] [address] Jul, [facility] [address] [id number] [address] [place] [address], [place] [id number] Jun, [facility] [address] [id number] [address] [place] [address], [place] [id number] May, [facility] [address] [id number] [address] [place] [address], [place] [id number] Apr, [facility] [address] [id number] [address] [place] [address], [place] [id number] February, [facility] [address] [id number] [address] [place] [address], [place] [id number] Jan, [facility] [address] [id number] [address] [place] [address], [place] [id number] Jan, [facility] [address] [id number] [address] [place] [address], [place] [id number] Dec, [facility] [address] [id number] [address] [place] [address], [place] [id number] Dec, [facility] [address] [id number] [address] [place] [address], [place] [id number] Dec, [facility] [address] [facility] [id number] [address] [place] [id number] Nov, [facility] [address] [facility] [id number] [address] [place] [phone] Nov, [facility] [address] [facility] [id number] [address] [place] [id number] Nov, [facility] [address] [facility] [id number] [address] [place] [id number] Nov, IMMUNIZATIONS No Known Immunizations SOCIAL HISTORY [...] chronic neck and back pain Medical History [place] x's 2 1996 and 2011 Medical History [...] Surgical History coronary angiography Dr Mane thakur [facility] [place]- normal EF, LV function,-minimal RCA blockage <20% 1996 [facility], mild nonspecific bulbar [...]
--- OUTSIDE RECORDS SUMMARY | 2020-04-06 06:55 | XMS REPORT ---
Author Author Jermaine CAMPOS Organization [facility] Address [address] [place] [address] Care Team Providers Care Saw Feeder Name Role Phone TIFFANIE CAMPOS Unavailable PROBLEMS Type Condition ICD9-CM Code ULM11-FN Code Onset Dates Condition S tatus SNOMED Code Problem Chronic pain G89.29 Active 6689365 1 Problem CAD (coronary artery disease) I25.10 Active 39384006 Problem Diverticulosis of intestine without bleeding, unspecified intestinal tract location K57.90 Active 83923331 Problem Fatty liver K76.0 Active 15772280 7 Problem COPD (chronic obstructive pulmonary disease) wit h chronic bronchitis J44.9 Active 372276040 Problem Abdominal bloating R14.0 Active 1 42090989 Problem Bilateral carotid artery disease I77.9 Active 118605761 Problem Hyperlipemia E78.5 Active 9038022 4 Problem Gastroesophageal reflux disease without esophagitis K21.9 Active 380167655 Problem Chronic obstructive pulmonary disease, unspecified COPD ty pe J44.9 Active 75813429 Problem Non-rheumatic mitral regurgitation I34.0 Active 839086162 Problem Claudication I73.9 Active 6343382 6 Problem Degenerative disc disease, cervical M50.30 Active 40813358 Problem PAD (peripheral artery disease) I73.9 Active 057804005 Problem Benign essential hypertension I10 Active 0894930 Problem Pacemaker Z95.0 Active 157016732 Problem Claudication of both lower extremities I73.9 Active 660494664 Problem Chronic bronchitis J42 Active 6 8160172 Problem Tobacco abuse Z72.0 Active 761421 05 Problem Peripheral arterial disease I73.9 Ac tive 435375752 Problem Mixed hyperlipidemia E78.2 Active 123010496 Problem Other chronic pain G89.29 Active 8 0961053 Problem Diet-controlled diabetes mellitus E11.9 Active 157128186 ALLERGIES No Information ENCOUNTERS Encounter Location Date Diagnosis [facility] [address] [facility] [id number] [place] [id number] Mar, [facility] [employer] [id number] [place] [address]75[address] Mar, Facet arthritis of cervical region M47.8 12 and Cervical radiculopathy M54.12 [facility] [employer] [place] [address] AVE [id number] [place] [id number] February, Degenerative disc disease, cervical M50. 30 ; Facet arthritis of cervical region M47.812 ; Cervical radiculopathy M54.12 and Pacemaker Z95.0 [facility] [employer] [place] [address] AVE [id number] [place] [id number] February, [facility] [employer] [place] [address] AVE [id number] [place] [id number] Jan, [facility] [employer] [place] [address] AVE [id number] [place] 836308576 Sep, Diet-controlled diabetes mellitus E11.9 ; Benign essential hypertension I10 and Tobacco abuse Z72.0 [facility] [employer] [id number] [place] [id number] Jul, Hyperlipemia E78.5 and CAD (coronary art janneth disease) I25.10 [facility] [employer] [place] [address] AVE [id number] [place] [id number] Jun, CAD (coronary artery disease) I25.10 and Hyperlipemia E78.5 [facility] [employer] [place] [address] A[address] [id number] [place] [address]36[address] Jun, New onset type 2 diabetes mellitus E11.9 ; S/P CABG (coronary artery bypass graft) Z95.1 ; Benign essential hypertension I10 ; Other chronic pain G89.29 and S/P cardiac pacemaker procedure Z95.0 [facility] [employer] [id number] [place] [id number] Jun, [facility] [employer] [place] [address] AVE [id number] [place] [id number] May, [facility] [address] [id number] [place] [id number] May, COPD (chronic obstructive pulmonary dise ase) with chronic bronchitis J44.9 ; Tobacco abuse Z72.0 and Tobacco abuse counseling Z71.6 [facility] [employer] [place] [address] A[address] [id number] [place] [address]2335[address] Apr, CAD (coronary artery disease) I25.10 [facility] [employer] [place] [address] AVE [id number] [place] [id number] Mar, Peripheral arterial disease I73.9 [facility] [address] [id number] [place] [id number] February, Chronic pain G89.29 ; Hyperlipemia E78.5 and Benign essential hypertension I10 [facility] [employer] [place] [address] A[address] [id number] [place] [id number] Jan, COPD (chronic obstructive pulmonary dise ase) with chronic bronchitis J44.9 [facility] [address] [id number] [place] [id number] Jan, [facility] [address] [id number] [place] [id number] Jan, Peripheral arterial disease I73.9 ; Carlo gn essential hypertension I10 ; Bilateral carotid artery disease I77.9 ; Claudication of both lower extremities I73.9 ; Mixed hyperlipidemia E78.2 ; Tobacco use Z72.0 and Non- rheumatic mitral regurgitation I34.0 [facility] [employer] [place] [address] A[address] [id number] [place] [id number] Jan, RUQ pain R10.11 ; Gastroesophageal reflu x disease without esophagitis K21.9 and Change in stool R19.5 [facility] [address] [address] [id number] [place] [address]83[address] Jan, [facility] [address] [id number] [place] [address] Jan, Neck pain M54.2 ; Benign essential hyper tension I10 ; COPD (chronic obstructive pulmonary disease) with chronic bronchitis J44.9 and Chronic obstructive pulmonary disease, unspecified COPD type J44.9 [facility] [address] [id number] [place] [id number] Jan, Chronic obstructive pulmonary disease, u nspecified COPD type J44.9 [facility] [address] [address] [id number] [place] [id number] Dec, [facility] [address] [id number] [place], [place] [phone] Dec, [facility] [address] [address] [id number] [place] [address]2388[address] Dec, COPD (chronic obstructive pulmonary dise ase) with chronic bronchitis J44.9 [facility] [address] [facility] [id number] [address] [place] [address] Dec, [facility] [address] [facility] [id number] [address] [place] [address] Dec, [facility] [address] [id number] [place] [id number] Nov, [facility] [place] [address] [facility] [address] [id number] [place] [address]8632[address] Nov, Benign essential hypertension I10 and CO PD (chronic obstructive pulmonary disease) with chronic bronchitis J44.9 [facility] [address] [facility] [address] [id number] [place] [id number] Nov, Hyperlipemia E78.5 ; Benign essential hy pertension I10 ; COPD (chronic obstructive pulmonary disease) with chronic bronchitis J44.9 ; Encounter for immunization Z23 ; Gastroesophageal reflux disease without esophagitis K21.9 and Chronic pain G89.29 [facility] [address] [id number] [place], [place] [address]28631529 Oct, COPD (chronic obstructive pulmonary dise ase) with chronic bronchitis J44.9 and Chronic obstructive pulmonary disease, unspecified COPD type J44.9 [facility] [address] [id number] [place] [id number] Oct, COPD (chronic obstructive pulmonary dise ase) with chronic bronchitis J44.9 and Chronic obstructive pulmonary disease, unspecified COPD type J44.9 [facility] [address] [id number] [place] [id number] Oct, COPD (chronic obstructive pulmonary dise ase) with chronic bronchitis J44.9 and Chronic obstructive pulmonary disease, unspecified COPD type J44.9 [facility] [address] [id number] [place] [id number] Oct, Benign essential hypertension I10 and Ne ck pain M54.2 [facility] [employer] [id number] [place], [place] 614466674 Sep, PAD (peripheral artery disease) I73.9 ; Claudication of both lower extremities I73.9 ; Bilateral carotid artery disease I77.9 ; Benign essential hypertension I10 ; Hyperlipemia E78.5 and Dyspnea on exertion R06.09 [facility] [employer] [id number] [place], [place] 676212291 Aug, Benign essential hypertension I10 ; Vannessa roesophageal reflux disease without esophagitis K21.9 and Cervical radiculopathy M54.12 [facility] [employer] [id number] [place] [id number] Aug, Gastroesophageal reflux disease without esophagitis K21.9 [facility] [employer] [id number] [place] 789785315 Aug, COPD (chronic obstructive pulmonary dise ase) with chronic bronchitis J44.9 [facility] [address] [id number] [place], [place] 770672053 Jul, [facility] [address] [id number] [place] [id number] Jul, Benign essential hypertension I10 [facility] [employer] [id number] [place], [place] 733303490 Jul, [facility] [employer] [id number] [place] 046015828 Jul, COPD (chronic obstructive pulmonary dise ase) with chronic bronchitis J44.9 [facility] [address] [id number] [place] [id number] Jul, Neck pain M54.2 [facility] [address] [id number] [place] [id number] Jun, Claudication of both lower extremities I 73.9 ; PAD (peripheral artery disease) I73.9 ; Bilateral carotid artery disease I77.9 ; CAD (coronary artery disease) I25.10 ; Tobacco abuse Z72.0 ; Benign essential hypertension I10 ; Hyperlipemia E78.5 and Non-rheumatic mitral valve stenosis I34.2 [facility] [address] [id number] [place] [id number] Jun, Chronic obstructive pulmonary disease, u nspecified COPD type J44.9 [facility] [address] [id number] [place], [place] [id number] May, [facility] [address] [id number] [place], [place] [id number] May, Chronic obstructive pulmonary disease, u nspecified COPD type J44.9 [facility] [address] [id number] [place] [address]19492991 May, Neck pain M54.2 ; Chronic obstructive pu lmonary disease, unspecified COPD type J44.9 and Cervical radiculopathy M54.12 [facility] [address] [id number] [place] [id number] May, [facility] [address] [id number] [place] [id number] Apr, [facility] [address] [id number] [place] [id number] Apr, Gastroesophageal reflux disease without esophagitis K21.9 [facility] [address] [id number] [place] [id number] Apr, COPD (chronic obstructive pulmonary dise ase) with chronic bronchitis J44.9 [facility] [address] [id number] [place], [place] [id number] Apr, [facility] [id number] [place] 1279508[address] Apr, [facility] [address] [id number] [place] [id number] Apr, COPD (chronic obstructive pulmonary dise ase) with chronic bronchitis J44.9 ; Benign essential hypertension I10 ; Tobacco abuse counseling Z71.6 and Hyperlipemia E78.[address] [facility] [address] [id number] [place], [place] [id number] February, COPD (chronic obstructive pulmonary dise ase) with chronic bronchitis J44.[address] [facility] [address] [id number] [place], [place] [id number] Jan, [facility] [address] [id number] [place], [place] [id number] Jan, COPD (chronic obstructive pulmonary dise ase) with chronic bronchitis J44.[address] [facility] [address] [id number] [place], [place] [id number] Oct, COPD (chronic obstructive pulmonary dise ase) with chronic bronchitis J44.[address] [facility] [address] [id number] [place] 628934771 Oct, Winter itch L29.[address] [facility] [address] [id number] [place], [place] [id number] Oct, COPD (chronic obstructive pulmonary dise ase) with chronic bronchitis J44.9 ; Benign essential hypertension I10 ; Tobacco abuse Z72.0 and Gastroesophageal reflux disease without esophagitis K21.[address] [facility] [address] [id number] [place], [place] [id number] Sep, Benign essential hypertension I[address] [facility] [address] [id number] [place], [place] [id number] Aug, [facility] [address] [id number] [place], [place] [id number] Jul, [facility] [id number] [place], [place] [id number] Apr, [facility] [address] [place] [address] AVE [id number] [place], [place] 560472505 Apr, Abdominal bloating R14.0 ; Fatty liver K 76.0 ; Diverticulosis of intestine without bleeding, unspecified intestinal tract location K57.90 ; Chronic obstructive pulmonary disease, unspecified COPD type J44.9 and Benign essential hypertension I10 [facility] [address] [id number] [place], [place] [id number] Apr, Mild early onset dysthymic disorder, in partial remission, with melancholic features, 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 [id number] [place] 935851774 Mar, Abdominal muscle strain, initial encount er S39.011A [facility] [employer] [place] [address] [id number] [place], [place] [id number] Jan, Pancreatitis K85.9 ; Abdominal bloating R14.0 ; Chronic bronchitis J42 and Chronic pain G89.29 [facility] [employer] [facility] AV [id number] [place], [place] [id number] Nov, [facility] [address] [id number] [place] [id number] Nov, [facility] [employer] [facility] [address] [id number], [place] 445258615 Nov, Chronic bronchitis J42 ; Tobacco abuse Z 72.0 and Tobacco abuse counseling Z71.6 [facility] [address] [id number] [place], [place] 704640270 Oct, [facility] [address] [id number] [place], [place] 798292276 Oct, Chronic bronchitis J42 ; Tobacco abuse Z 72.0 and Benign essential hypertension I10 [facility] [address] [id number] [place], [place] 694222105 Oct, Chronic bronchitis J42 ; Tobacco abuse Z 72.0 ; Tobacco abuse counseling Z71.6 ; Benign essential hypertension I10 and Hyperlipemia E78.5 [facility] [address] [facility] [id number] [address] [place] [address] Sep, [facility] [address] [id number] [place] [id number] Jul, [facility] [address] [place] [id number] [address] [place] [address] Jul, Essential (primary) hyperten aida I10 [facility] [address] [facility] [id number] [address] [place] [address] Jul, [facility] [address] [facility] [address] [id number] [place] [id number] Jul, 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.1 and Cough 786.[address] [id number] [place] [id number] February, [address] [id number] [place], [place] [id number] February, Status post bilateral carotid endarterec vito V45.89 ; CAD (coronary artery disease) 414.00 ; Benign essential hypertension 401.1 ; Hyperlipemia 272.4 ; Tobacco abuse 305.1 ; Tobacco abuse counseling V65.42 and Chronic bronchitis 491.9 [facility] [address] [facility] [id number] [address] [place] [address] Jan, [facility] [address] [id number] [address] [place] [address], [place] [address] Jan, [facility] [address] [id number] [address] [place] [address], [place] [address] Dec, [facility] [address] [id number] [address] [place] [address], [place] [address] Dec, [facility] [address] [id number] [address] [place] [address], [place] [address] Nov, 2014 [facility] [address] [id number] [address] [place] [address], [place] [address] Nov, 2014 [facility] [address] [id number] [address] [place] [address], [place] [address] Nov, 2014 [facility] [address] [id number] [address] [place] [address], [place] [address] Nov, [facility] [address] [id number] [address] [place] [address], [place] [address] Nov, [facility] [address] [id number] [address] [place] [address], [place] [address] Nov, [facility] [address] [id number] [address] [place] [address], [place] [address] Nov, [facility] [address] [id number] [address] [place] [address], [place] [address] Nov, [facility] [address] [id number] [address] [place] [address], [place] [address] Nov, [facility] [address] [id number] [address] [place] [address], [place] [address] Oct, [facility] [address] [id number] [address] [place] [address], [place] [address] Oct, [facility] [address] [id number] [address] [place] [address], [place] [address] Oct, [facility] [address] [id number] [address] [place] [address] Oct, [facility] [address] [id number] [address] [place] [address], [place] [address] Oct, [facility] [address] [id number] [address] [place] [address], [place] [address] Oct, [facility] [address] [id number] [address] [place] [address], [place] [address] Oct, [facility] [address] [id number] [address] [place] [address] Oct, [facility] [address] [id number] [address] [place] [address], [place] [address] Oct, [facility] [address] [id number] [address] [place] [address] Oct, [facility] [address] [id number] [place] [id number] Oct, [facility] [address] [id number] [address] [place] [address] Oct, [facility] [address] [id number] [address] [place] [address], [place] [address] Sep, [facility] [address] [id number] [address] [place] [address], [place] [address] Sep, [facility] [address] [id number] [address] [place] [address] Aug, [facility] [address] [id number] [address] [place] [address] Aug, [facility] [address] [id number] [address] [place] [address], [place] [address] Aug, [facility] [address] [id number] [address] [place] [address], [place] [address] Aug, [facility] [address] [id number] [address] [place] [address], [place] [address] Jul, [facility] [address] [id number] [address] [place] [address], [place] [address] Jul, [facility] [address] [id number] [address] [place] [address], [place] [address] Jun, [facility] [address] [id number] [address] [place] [address], [place] [address] Jun, [facility] [address] [id number] [address] [place] [address], [place] [address] May, [facility] [address] [id number] [address] [place] [address], [place] [address] May, [facility] [address] [id number] [address] [place] [address], [place] [address] May, [facility] [address] [id number] [address] [place] [address], [place] [address] May, [facility] [address] [id number] [address] [place] [address], [place] [address] Jan, [facility] [address] [id number] [address] [place] [address], [place] [address] Jan, [facility] [address] [id number] [address] [place] [address], [place] [address] Nov, [facility] [address] [id number] [address] [place] [address], [place] [address] Nov, [facility] [address] [id number] [address] [place] [address], [place] [address] Nov, [facility] [address] [id number] [address] [place] [address], [place] [address] Nov, [facility] [address] [id number] [address] [place] [address], [place] [address] Nov, [facility] [address] [id number] [address] [place] [address], [place] [address] Nov, [facility] [address] [id number] [address] [place] [address], [place] [address] Nov, [facility] [address] [id number] [address] [place] [address], [place] [address] Nov, [facility] [address] [id number] [address] [place] [address], [place] [address] Nov, [facility] [address] [id number] [address] [place] [address], [place] [address] Nov, [facility] [address] [id number] [address] [place] [address], [place] [address] Oct, [facility] [address] [id number] [address] [place] [address], [place] [address] Oct, [facility] [address] [id number] [address] [place] [address], [place] [address] Oct, [facility] [address] [id number] [address] [place] [address], [place] [address] Oct, [facility] [address] [id number] [address] [place] [address], [place] [address] Sep, [facility] [address] [id number] [address] [place] [address], [place] [address] Sep, [facility] [address] [id number] [address] [place] [address], [place] [address] Aug, [facility] [address] [id number] [address] [place] [address], [place] [address] Aug, [facility] [address] [id number] [address] [place] [address], [place] [address] Aug, [facility] [address] [id number] [address] [place] [address], [place] [address] Aug, [facility] [address] [id number] [address] [place] [address], [place] [address] Aug, [facility] [address] [id number] [address] [place] [address], [place] [address] Aug, [facility] [address] [id number] [address] [place] [address], [place] [address] Aug, [facility] [address] [id number] [address] [place] [address], [place] [address] Aug, [facility] [address] [id number] [address] [place] [address], [place] [address] Jul, [facility] [address] [id number] [address] [place] [address], [place] [address] Jul, [facility] [address] [id number] [address] [place] [address], [place] [address] Jul, [facility] [address] [id number] [address] [place] [address], [place] [phone] Jul, [facility] [address] [id number] [address] [place] [address], [place] [address] Jul, [facility] [address] [id number] [address] [place] [address], [place] [phone] Jun, [facility] [address] [id number] [address] [place] [address], [place] [phone] May, [facility] [address] [id number] [address] [place] [address], [place] [phone] Apr, [facility] [address] [id number] [address] [place] [address], [place] [phone] February, [facility] [address] [id number] [address] [place] [address], [place] [address] Jan, [facility] [address] [id number] [address] [place] [address], [place] [id number] Jan, [facility] [address] [id number] [address] [place] [address], [place] [address] Dec, [facility] [address] [id number] [address] [place] [address], [place] [address] Dec, [facility] [address] [id number] [address] [place] [address], [place] [phone] Dec, [facility] [address] [facility] [id number] [address] [place] [phone] Nov, [facility] [address] [facility] [id number] [address] [place] [phone] Nov, [facility] [address] [facility] [id number] [address] [place] [phone] Nov, [facility] [address] [facility] [id number] [address] [place] [phone] Nov, IMMUNIZATIONS No Known Immunizations SOCIAL HISTORY [...] chronic neck and back pain Medical History OK x's 2 1996 and 2011 Medical History [...] Surgical History coronary angiography Dr Mane thakur [facility] [place]- normal EF, LV function,-minimal RCA blockage <20% 1996 [facility], mild nonspecific bulbar [...]
--- OUTSIDE RECORDS SUMMARY | 2020-04-06 06:56 | XMS REPORT ---
Author Author Jermaine Aponte Doctor Organization [facility] Address Unknown Phone Unavailable Care Team Providers Care Causticiser Name Role Phone Migration, Doctor Unavailable Unavailable PROBLEMS Type Condition ICD9-CM Code OVL50-FK Code Onset Dates Condition S tatus SNOMED Code Problem CAD (coronary artery disease) I25.10 Active 43290553 Problem Tobacco abuse Z72.0 Active 632413 05 Problem Diverticulosis of intestine without bleeding, unspecified intestinal tract location K57.90 Active 19061286 Problem Chronic pain G89.29 Active 2766406 1 Problem Fatty liver K76.0 Active 07518023 7 Problem Abdominal bloating R14.0 Active 1 71866778 Problem Gastroesophageal reflux disease without esophagitis K21.9 Active 135126589 Problem COPD (chronic obstructive pulmonary disease) wit h chronic bronchitis J44.9 Active 551087551 Problem PAD (peripheral artery disease) I73.9 Active 037504360 Problem Chronic obstructive pulmonary disease, unspecified COPD ty pe J44.9 Active 23045739 Problem Non-rheumatic mitral regurgitation I34.0 Active 920857003 Problem S/P cardiac pacemaker procedure Z95.0 Active 663089870 Problem Claudication of both lower extremities I73.9 Active 728080905 Problem Chronic bronchitis J42 Active 6 7863112 Problem Diet-controlled diabetes mellitus E11.9 Active 281857655 Problem Bilateral carotid artery disease I77.9 Active 908582767 Problem Hyperlipemia E78.5 Active 2432225 4 Problem Benign essential hypertension I10 Active 3237790 Problem Claudication I73.9 Active 3645122 6 Problem Peripheral arterial disease I73.9 Ac tive 276163948 Problem Mixed hyperlipidemia E78.2 Active 290873239 Problem Other chronic pain G89.29 Active 8 [id number] ALLERGIES No Information ENCOUNTERS Encounter Location Date Diagnosis [facility] [address] [id number] [place] [id number] February, [facility] [address] [id number] [address]88[address] February, [facility] [address] [id number] [place] [address] Jan, [facility] [address] [id number] [address]37318[address] Sep, Diet-controlled diabetes mellitus E11.9 ; Benign essential hypertension I10 and Tobacco abuse Z72.0 [facility] [address] [id number], [place] 426279676 Jul, Hyperlipemia E78.5 and CAD (coronary art janneth disease) I25.10 [facility] [address] [id number][place] 917938391 Jun, CAD (coronary artery disease) I25.10 and Hyperlipemia E78.5 [facility] [address] [id number][place] 317139308 Jun, New onset type 2 diabetes mellitus E11.9 ; S/P CABG (coronary artery bypass graft) Z95.1 ; Benign essential hypertension I10 ; Other chronic pain G89.29 and S/P cardiac pacemaker procedure Z95.0 [facility] [address] [id number][place] [id number] Jun, [facility] [address] [id number][place] 135119475 May, [facility] [address] [id number][place] 4036150[address] May, COPD (chronic obstructive pulmonary dise ase) with chronic bronchitis J44.9 ; Tobacco abuse Z72.0 and Tobacco abuse counseling Z71.6 [facility] [address] [id number] [address] Apr, CAD (coronary artery disease) I25.10 [facility] [address] [id number][place] 516326444 Mar, Peripheral arterial disease I73.9 [facility] [address] [id number], [place] 805560597 February, Chronic pain G89.29 ; Hyperlipemia E78.5 and Benign essential hypertension I10 [address] [address] [id number], [place] [address]974300[address] Jan, COPD (chronic obstructive pulmonary dise ase) with chronic bronchitis J44.9 [facility] [address] [id number], [place] [address] Jan, [facility] [address] [id number], [place] 296940[address] Jan, Peripheral arterial disease I73.9 ; Carlo gn essential hypertension I10 ; Bilateral carotid artery disease I77.9 ; Claudication of both lower extremities I73.9 ; Mixed hyperlipidemia E78.2 ; Tobacco use Z72.0 and Non- rheumatic mitral regurgitation I34.0 [address] [id number], [place] 063419346 Jan, RUQ pain R10.11 ; Gastroesophageal reflu x disease without esophagitis K21.9 and Change in stool R19.5 [address] [id number], [place] 517260584 Jan, [facility] [address] [id number], [place] 769477647 Jan, Neck pain M54.2 ; Benign essential hyper tension I10 ; COPD (chronic obstructive pulmonary disease) with chronic bronchitis J44.9 and Chronic obstructive pulmonary disease, unspecified COPD type J44.9 [facility] [address] [id number], [place] 640583443 Jan, Chronic obstructive pulmonary disease, u nspecified COPD type J44.9 [facility] [employer] [address] [id number], [place] [address]37399[address] Dec, [facility] [employer] [address] [id number], [place] 118972455 Dec, [facility] [employer] [address] [id number], [place] 8798025[address] Dec, COPD (chronic obstructive pulmonary dise ase) with chronic bronchitis J44.9 [facility] [address] [facility] [id number] [place] [address] Dec, [facility] [address] [facility] [id number] [place], [place] [address] Dec, [facility] [address] [id number], [place] [id number] Nov, [facility] [address] [id number], [place] [address]1611214 Nov, Benign essential hypertension I10 and CO PD (chronic obstructive pulmonary disease) with chronic bronchitis J44.9 [facility] [address] [place] [address] AVE [id number], [place] 653230931 Nov, Hyperlipemia E78.5 ; Benign essential hy pertension I10 ; COPD (chronic obstructive pulmonary disease) with chronic bronchitis J44.9 ; Encounter for immunization Z23 ; Gastroesophageal reflux disease without esophagitis K21.9 and Chronic pain G89.29 [facility] [address] [place] [address] AVE [id number], [place] 336701214 Oct, COPD (chronic obstructive pulmonary dise ase) with chronic bronchitis J44.9 and Chronic obstructive pulmonary disease, unspecified COPD type J44.9 [facility] [address] [id number], [place] [address]36829249 Oct, COPD (chronic obstructive pulmonary dise ase) with chronic bronchitis J44.9 and Chronic obstructive pulmonary disease, unspecified COPD type J44.9 [facility] [address] [id number], [place] 250254548 Oct, COPD (chronic obstructive pulmonary dise ase) with chronic bronchitis J44.9 and Chronic obstructive pulmonary disease, unspecified COPD type J44.9 [facility] [address] [id number], [place] 844232785 Oct, Benign essential hypertension I10 and Ne ck pain M54.2 [facility] [employer] [address] [id number], [place] 733567999 Sep, PAD (peripheral artery disease) I73.9 ; Claudication of both lower extremities I73.9 ; Bilateral carotid artery disease I77.9 ; Benign essential hypertension I10 ; Hyperlipemia E78.5 and Dyspnea on exertion R06.09 [facility] [address] [id number], [place] 967035[address] Aug, Benign essential hypertension I10 ; Vannessa roesophageal reflux disease without esophagitis K21.9 and Cervical radiculopathy M54.12 [facility] [address] [id number], [place] 162607031 Aug, Gastroesophageal reflux disease without esophagitis K21.9 [facility] [address] [id number], [place] 181897610 Aug, COPD (chronic obstructive pulmonary dise ase) with chronic bronchitis J44.9 [facility] [address] [id number], [place] 594618693 Jul, [facility] [address] [id number], [place] 155921152 Jul, Benign essential hypertension I10 [facility] [address] [id number], [place] 110825969 Jul, [facility] [address] [id number], [place] 943955008 Jul, COPD (chronic obstructive pulmonary dise ase) with chronic bronchitis J44.9 [facility] Corporation[facility] [address] [id number], [place] 136319836 Jul, Neck pain M54.2 [facility] [address] [id number], [place] 382504901 Jun, Claudication of both lower extremities I 73.9 ; PAD (peripheral artery disease) I73.9 ; Bilateral carotid artery disease I77.9 ; CAD (coronary artery disease) I25.10 ; Tobacco abuse Z72.0 ; Benign essential hypertension I10 ; Hyperlipemia E78.5 and Non-rheumatic mitral valve stenosis I34.2 [facility] [address] [id number] [facility] 7789[address] Jun, Chronic obstructive pulmonary disease, u nspecified COPD type J44.[address] [facility] [address] [id number] [place] [address] May, [facility] [address] [id number] [place] [address] May, Chronic obstructive pulmonary disease, u nspecified COPD type J44.[address] [facility] [address] [id number] [place] [address] May, Neck pain M54.2 ; Chronic obstructive pu lmonary disease, unspecified COPD type J44.9 and Cervical radiculopathy M54.[address] [facility] [address] [id number], [place] 782275479 May, [facility] [address] [id number], [place] 097998041 Apr, [facility] [address] [id number], [place] 996153070 Apr, Gastroesophageal reflux disease without esophagitis K21.9 [facility] [address] [id number], [place] 501876003 Apr, COPD (chronic obstructive pulmonary dise ase) with chronic bronchitis J44.9 [facility] [address] [id number], [place] 272862060 Apr, [facility] [address] [id number], [place] 747975369 Apr, [facility] [address] [id number], [place] 158597443 Apr, COPD (chronic obstructive pulmonary dise ase) with chronic bronchitis J44.9 ; Benign essential hypertension I10 ; Tobacco abuse counseling Z71.6 and Hyperlipemia E78.[address] [facility] [address] [id number] [place] 7682558[address] February, COPD (chronic obstructive pulmonary dise ase) with chronic bronchitis J44.[address] [facility] [address] [id number] [place] 197837[address] Jan, [facility] [address] [id number], [place] 989247577 Jan, COPD (chronic obstructive pulmonary dise ase) with chronic bronchitis J44.9 [facility] [address] [id number], [place] 701568837 Oct, COPD (chronic obstructive pulmonary dise ase) with chronic bronchitis J44.[address] [facility] [address] [id number] [place] 241150717 Oct, Winter itch L29.[address] [address] [id number], [place] 043590790 Oct, COPD (chronic obstructive pulmonary dise ase) with chronic bronchitis J44.9 ; Benign essential hypertension I10 ; Tobacco abuse Z72.0 and Gastroesophageal reflux disease without esophagitis K21.9 [facility] [address] [id number], [place] 945736473 Sep, Benign essential hypertension I10 [facility] [address] [id number], [place] 084821125 Aug, [facility] [address] [id number], [place] 630407406 Jul, [facility] [address] [id number], [place] 207963750 Apr, [facility] [address] [id number], [place] 789871725 Apr, Abdominal bloating R14.0 ; Fatty liver K 76.0 ; Diverticulosis of intestine without bleeding, unspecified intestinal tract location K57.90 ; Chronic obstructive pulmonary disease, unspecified COPD type J44.9 and Benign essential hypertension I10 [facility] [address] [id number], [place] 236993100 Apr, Mild early onset dysthymic disorder, in partial remission, with melancholic features, 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 [facility] [address] [id number], [place] 868161442 Mar, Abdominal muscle strain, initial encount er S39.011A [facility] [address] [id number], [place] 972371288 Jan, Pancreatitis K85.9 ; Abdominal bloating R14.0 ; Chronic bronchitis J42 and Chronic pain G89.29 [facility] [address] [id number], [place] 727094921 Nov, [facility] [address] [id number], [place] 101418619 Nov, [facility] [address] [id number], [place] 154672945 Nov, Chronic bronchitis J42 ; Tobacco abuse Z 72.0 and Tobacco abuse counseling Z71.6 [facility] [address] [id number], [place] 026706644 Oct, [facility] [address] [id number], [place] 163804360 Oct, Chronic bronchitis J42 ; Tobacco abuse Z 72.0 and Benign essential hypertension I10 [facility] [address] [id number], [place] 344296322 Oct, Chronic bronchitis J42 ; Tobacco abuse Z 72.0 ; Tobacco abuse counseling Z71.6 ; Benign essential hypertension I10 and Hyperlipemia E78.5 [facility] [address] [facility] [id number] [address] [place] [address] Sep, [facility] [address] [id number], [place] [id number] Jul, [facility] [address] [id number] [address] [place] [address] Jul, Essential (primary) hyperten aida I10 [facility] [address] [facility] [id number] [address] [place] [address] Jul, [facility] [address] [id number], [place] 130053413 Jul, [facility] [id number], [place] 306635908 Jun, Benign essential hypertension 401.1 ; Ge neralized edema 782.3 ; Chronic pain 338.29 and Hyperlipemia 272.4 [facility] [address] [id number], [place] 357309385 May, Upper respiratory infection 465.9 and Co ugh 786.[address] [id number], [place] 498418649 Mar, Upper respiratory infection 465.9 ; 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 and Cough 786.2 [facility] [address] [facility] [address] [id number], [place] 504081347 February, [facility] [address] [id number], [place] 122971675 February, Status post bilateral carotid endarterec vito V45.89 ; CAD (coronary artery disease) 414.00 ; Benign essential hypertension 401.1 ; Hyperlipemia 272.4 ; Tobacco abuse 305.1 ; Tobacco abuse counseling V65.42 and Chronic bronchitis 491.9 [facility] [address] [id number] [address] [place] [address] Jan, [facility] [address] [place] [address] Jan, [facility] [address] [id number] [address] [place] [address] Dec, [facility] [address] [place] [address] Dec, [facility] [address] [place] [address] Nov, [facility] [address] [id number] [address] [place] [address] Nov, [facility] [address] [id number] [address] [place] [address], [place] [address] 19 Nov, 2014 [facility] [address] [id number] [address] [place] [address], [place] [address] Nov, 2014 [facility] [address] [id number] [address] [place] [address], [place] [address] Nov, 2014 [facility] [address] [id number] [address] [place] [address], [place] [address] Nov, 2014 [facility] [address] [id number] [address] [place] [address], [place] [address] Nov, 2014 [facility] [address] [id number] [address] [place] [address], [place] [address] Nov, 2014 [facility] [address] [id number] [address] [place] [address], [place] [address] Nov, [facility] [address] [id number] [address] [place] [address], [place] [address] Oct, [facility] [address] [id number] [address] [place] [address], [place] [address] Oct, [facility] [address] [id number] [address] [place] [address], [place] [address] Oct, [facility] [address] [id number] [address] [place] [address], [place] [address] Oct, [facility] [address] [id number] [address] [place] [address] Oct, [facility] [address] [id number] [address] [place] [address], [place] [address] Oct, [facility] [address] [id number] [address] [place] [address], [place] [address] Oct, [facility] [address] [id number] [address] [place] [address], [place] [address] Oct, [facility] [address] [id number] [address] [place] [address] Oct, [facility] [address] [id number] [address] [place] [address], [place] [address] Oct, [facility] [address] [id number] [place] [id number] Oct, [facility] [address] [id number] [address] [place] [address], [place] [address] Oct, [facility] [address] [id number] [address] [place] [address], [place] [address] Sep, [facility] [address] [id number] [address] [place] [address], [place] [address] Sep, [facility] [address] [id number] [address] [place] [address], [place] [address] Aug, [facility] [address] [id number] [address] [place] [address], [place] [address] Aug, [facility] [address] [id number] [address] [place] [address], [place] [address] Aug, [facility] [address] [id number] [address] [place] [address], [place] [address] Aug, [facility] [address] [id number] [address] [place] [address], [place] [address] Jul, [facility] [address] [id number] [address] [place] [address] Jul, [facility] [address] [id number] [address] [place] [address] Jun, [facility] [address] [id number] [address] [place] [address], [place] [address] Jun, [facility] [address] [id number] [address] [place] [address], [place] [address] May, [facility] [address] [id number] [address] [place] [address], [place] [address] May, [facility] [address] [id number] [address] [place] [address], [place] [address] May, [facility] [address] [id number] [address] [place] [address], [place] [address] May, [facility] [address] [id number] [address] [place] [address], [place] [address] Jan, [facility] [address] [id number] [address] [place] [address], [place] [address] Jan, [facility] [address] [id number] [address] [place] [address], [place] [address] Nov, [facility] [address] [id number] [address] [place] [address], [place] [address] Nov, [facility] [address] [id number] [address] [place] [address], [place] [address] Nov, [facility] [address] [id number] [address] [place] [address], [place] [address] Nov, [facility] [address] [id number] [address] [place] [address], [place] [address] Nov, [facility] [address] [id number] [address] [place] [address], [place] [address] Nov, [facility] [address] [id number] [address] [place] [address], [place] [address] Nov, [facility] [address] [id number] [address] [place] [address], [place] [address] Nov, [facility] [address] [id number] [address] [place] [address], [place] [address] Nov, [facility] [address] [id number] [address] [place] [address], [place] [address] Nov, [facility] [address] [id number] [address] [place] [address], [place] [address] Oct, [facility] [address] [id number] [place], [place] [address] Oct, [facility] [address] [id number] [address] [place] [address], [place] [address] Oct, [facility] [address] [id number] [address] [place] [address], [place] [address] Oct, [facility] [address] [id number] [address] [place] [address] Sep, [facility] [address] [id number] [address] [place] [address] Sep, [facility] [address] [id number] [address] [place] [address], [place] [address] Aug, [facility] [address] [id number] [address] [place] [address] Aug, [facility] [address] [id number] [address] [place] [address], [place] [address] Aug, [facility] [address] [id number] [address] [place] [address] Aug, [facility] [address] [id number] [address] [place] [address] Aug, [facility] [address] [id number] [address] [place] [address] Aug, [facility] [address] [id number] [address] [place] [id number] Aug, [facility] [address] [id number] [address] [place] [id number] Aug, [facility] [address] [id number] [address] [place] [address], [place] [address] Jul, [facility] [address] [id number] [address] [place] [id number] Jul, [facility] [address] [id number] [address] [place] [id number] Jul, [facility] [address] [id number] [address] [place] [id number] Jul, [facility] [address] [id number] [address] [place] [phone] Jul, [facility] [address] [id number] [address] [place] [id number] Jun, [facility] [address] [id number] [address] [place] [id number] May, [facility] [address] [id number] [address] [place] [id number] Apr, [facility] [address] [id number] [address] [place] [id number] February, [facility] [address] [id number] [address] [place] [phone] Jan, [facility] [address] [id number] [address] [place] [id number] Jan, [facility] [address] [id number] [address] [place] [id number] Dec, [facility] [address] [id number] [address] [place] [id number] Dec, [facility] [address] [id number] [address] [place] [id number] Dec, [facility] [address] [id number] [address] [place] [id number] Nov, [facility] [address] [id number] [address] [place] [phone] Nov, [facility] [address] [id number] [address] [place] [id number] Nov, [facility] [address] [id number] [address] [place] [id number] Nov, IMMUNIZATIONS No Known Immunizations SOCIAL HISTORY Never Assessed REASON FOR VISIT [facility]MR-[facility] PLAN OF CARE VITAL SIGNS MEDICATIONS Unknown Medications RESULTS No Results PROCEDURES No Known procedures INSTRUCTIONS MEDICATIONS ADMINISTERED No Known Medications MEDICAL (GENERAL) HISTORY Type Description Date Medical History GERD Medical History hypertension Medical History 1999 mild stroke syndrome- C T head 02/2015 showed chronic ischemic changes Medical History chronic neck and back pain Medical History [place] x's 2 1996 and 2011 Medical History [...] Surgical History coronary angiography Dr Mane [facility]- normal EF, LV function,-minimal RCA blockage <20% 1996 [facility], mild nonspecific bulbar duodenitis 1996 Surgical History carotid endarterectomy, right- [facility] 01/14 015 Surgical History Heart cath with PTCA 2013 Surgical History Colonoscopy- tubular adenoma , hyperplastic polyp- repeat Colonoscopy 12/2016 Surgical History Bypass Surgery- CABG and Pacemaker 06/06 Hospitalization History heart attack 1996 Hospitalization History slurred speech, fever, left arm pain [facility] [place] February 2015 Hospitalization History Pancreatitis 12/2015 Hospitalization History CABG 05/2018
--- OUTSIDE RECORDS SUMMARY | 2020-04-06 06:56 | XMS REPORT ---
Author Author Jermaine Aponte Doctor Organization [facility] Address Unknown Phone Unavailable Care Team Providers Care Waiter/Waitress Formal Name Role Phone Migration, Doctor Unavailable Unavailable PROBLEMS Type Condition ICD9-CM Code ZQH67-RR Code Onset Dates Condition S tatus SNOMED Code Problem CAD (coronary artery disease) I25.10 Active 70944590 Problem Tobacco abuse Z72.0 Active 514761 05 Problem Diverticulosis of intestine without bleeding, unspecified intestinal tract location K57.90 Active 20725652 Problem Chronic pain G89.29 Active 1170934 1 Problem Fatty liver K76.0 Active 83088028 7 Problem Abdominal bloating R14.0 Active 1 26937215 Problem Gastroesophageal reflux disease without esophagitis K21.9 Active 969158781 Problem COPD (chronic obstructive pulmonary disease) wit h chronic bronchitis J44.9 Active 183113279 Problem PAD (peripheral artery disease) I73.9 Active 942735413 Problem Chronic obstructive pulmonary disease, unspecified COPD ty pe J44.9 Active 52631075 Problem Non-rheumatic mitral regurgitation I34.0 Active 307163834 Problem S/P cardiac pacemaker procedure Z95.0 Active 651269712 Problem Claudication of both lower extremities I73.9 Active 700115569 Problem Chronic bronchitis J42 Active 6 3955404 Problem Diet-controlled diabetes mellitus E11.9 Active 457433999 Problem Bilateral carotid artery disease I77.9 Active 097906808 Problem Hyperlipemia E78.5 Active 5460140 4 Problem Benign essential hypertension I10 Active 4581567 Problem Claudication I73.9 Active 5984220 6 Problem Peripheral arterial disease I73.9 Ac tive 537705505 Problem Mixed hyperlipidemia E78.2 Active 859469369 Problem Other chronic pain G89.29 Active 8 [id number] ALLERGIES No Information ENCOUNTERS Encounter Location Date Diagnosis [facility] [address] [facility] [address] [id number] [place] [id number] Sep, Diet-controlled diabetes mellitus E11.9 ; Benign essential hypertension I10 and Tobacco abuse Z72.[address] [facility] [address] [id number] [place] [address] Jul, Hyperlipemia E78.5 and CAD (coronary art janneth disease) I25.10 [facility] [address] [id number] [place] [id number] Jun, CAD (coronary artery disease) I25.10 and Hyperlipemia E78.5 [facility] [address] [id number] [place] [address] Jun, New onset type 2 diabetes mellitus E11.9 ; S/P CABG (coronary artery bypass graft) Z95.1 ; Benign essential hypertension I10 ; Other chronic pain G89.29 and S/P cardiac pacemaker procedure Z95.0 [facility] [address] [id number] [place] [id number] Jun, [facility] [address] [id number] [place] [id number] May, [facility] [address] [id number] [place] [address] May, COPD (chronic obstructive pulmonary dise ase) with chronic bronchitis J44.9 ; Tobacco abuse Z72.0 and Tobacco abuse counseling Z71.6 [facility] TherapeuticsW[facility] [address] [id number] [place] [address] Apr, CAD (coronary artery disease) I25.10 [facility] [address] [id number] [place] [address] Mar, Peripheral arterial disease I73.9 [facility] [address] [id number] [place] [address] February, Chronic pain G89.29 ; Hyperlipemia E78.5 and Benign essential hypertension I10 [facility] [address] [id number] [place] [address] Jan, COPD (chronic obstructive pulmonary dise ase) with chronic bronchitis J44.9 [facility] [address] [id number] [place] [id number] Jan, [facility] [address] [id number] [place] [address] Jan, Peripheral arterial disease I73.9 ; Carlo gn essential hypertension I10 ; Bilateral carotid artery disease I77.9 ; Claudication of both lower extremities I73.9 ; Mixed hyperlipidemia E78.2 ; Tobacco use Z72.0 and Non- rheumatic mitral regurgitation I34.0 [facility] [address] [id number] [place] [address] Jan, RUQ pain R10.11 ; Gastroesophageal reflu x disease without esophagitis K21.9 and Change in stool R19.5 [facility] [address] [id number] [place] [address] Jan, [facility] TherapeuticsW[facility] [address] [id number] [place] [address] Jan, Neck pain M54.2 ; Benign essential hyper tension I10 ; COPD (chronic obstructive pulmonary disease) with chronic bronchitis J44.9 and Chronic obstructive pulmonary disease, unspecified COPD type J44.9 [facility] [address] [id number] [place] [address] Jan, Chronic obstructive pulmonary disease, u nspecified COPD type J44.9 [facility] [address] [id number] [place] [id number] Dec, [facility] [address] [id number] [place] [address] Dec, [facility] [address] [id number] [place] [id number] Dec, COPD (chronic obstructive pulmonary dise ase) with chronic bronchitis J44.9 [facility] [address] [facility] [place] [id number] [address] [place] [address] Dec, [facility] [address] [facility] [place] [id number] [address] [place] [address] Dec, [facility] [address] [id number] [place] [id number] Nov, [facility] [address] [place] [address] AVE [id number] [place] [address] Nov, Benign essential hypertension I10 and CO PD (chronic obstructive pulmonary disease) with chronic bronchitis J44.9 [facility] [address] [place] [address] AVE [id number] [place] [address] Nov, Hyperlipemia E78.5 ; Benign essential hy pertension I10 ; COPD (chronic obstructive pulmonary disease) with chronic bronchitis J44.9 ; Encounter for immunization Z23 ; Gastroesophageal reflux disease without esophagitis K21.9 and Chronic pain G89.29 [facility] TherapeuticsWAGNER [address] [place] [address] AVE [id number] [place] [id number] Oct, COPD (chronic obstructive pulmonary dise ase) with chronic bronchitis J44.9 and Chronic obstructive pulmonary disease, unspecified COPD type J44.9 [facility] [address] [place] [address] AVE [id number] [place] [id number] Oct, COPD (chronic obstructive pulmonary dise ase) with chronic bronchitis J44.9 and Chronic obstructive pulmonary disease, unspecified COPD type J44.9 [facility] [address] [place] [address] AVE [id number] [place] [address] Oct, COPD (chronic obstructive pulmonary dise ase) with chronic bronchitis J44.9 and Chronic obstructive pulmonary disease, unspecified COPD type J44.9 [facility] [address] [place] [address] AVE [id number] [place] [address] Oct, Benign essential hypertension I10 and Ne ck pain M54.2 [facility] TherapeuticsW[facility] [address] [id number] [place] [address] Sep, PAD (peripheral artery disease) I73.9 ; Claudication of both lower extremities I73.9 ; Bilateral carotid artery disease I77.9 ; Benign essential hypertension I10 ; Hyperlipemia E78.5 and Dyspnea on exertion R06.09 [facility] [id number] [place] [id number] Aug, Benign essential hypertension I10 ; Vannessa roesophageal reflux disease without esophagitis K21.9 and Cervical radiculopathy M54.12 [facility] [address] [id number] [place] [id number] Aug, Gastroesophageal reflux disease without esophagitis K21.9 [facility] [address] [id number] [place] [id number] Aug, COPD (chronic obstructive pulmonary dise ase) with chronic bronchitis J44.9 [facility] [address] [id number] [place] [address] Jul, [facility] [address] [id number] [place] [id number] Jul, Benign essential hypertension I10 [facility] [address] [id number] [place] [address] Jul, [facility] [address] [id number] [place] [id number] Jul, COPD (chronic obstructive pulmonary dise ase) with chronic bronchitis J44.9 [facility] [address] [id number] [place] [address] Jul, Neck pain M54.2 [facility] [address] [id number] [place] [address] Jun, Claudication of both lower extremities I 73.9 ; PAD (peripheral artery disease) I73.9 ; Bilateral carotid artery disease I77.9 ; CAD (coronary artery disease) I25.10 ; Tobacco abuse Z72.0 ; Benign essential hypertension I10 ; Hyperlipemia E78.5 and Non-rheumatic mitral valve stenosis I34.2 [facility] [address] [id number] [place] [id number] Jun, Chronic obstructive pulmonary disease, u nspecified COPD type J44.9 [facility] [address] [id number] [place] [id number] May, [facility] [address] [id number] [place] [id number] May, Chronic obstructive pulmonary disease, u nspecified COPD type J44.9 [facility] [address] [id number] [place] [address] May, Neck pain M54.2 ; Chronic obstructive pu lmonary disease, unspecified COPD type J44.9 and Cervical radiculopathy M54.[address] [facility] [address] [id number] [place] [address] May, [facility] [address] [id number] [place] [id number] Apr, [facility] [address] [id number] [place] [address] Apr, Gastroesophageal reflux disease without esophagitis K21.[address] [facility] [address] [id number] [place] [address] Apr, COPD (chronic obstructive pulmonary dise ase) with chronic bronchitis J44.[address] [facility] [address] [id number] [place] [id number] Apr, [facility] [address] [id number] [place] [address] Apr, [facility] [address] [id number] [place] [id number] Apr, COPD (chronic obstructive pulmonary dise ase) with chronic bronchitis J44.9 ; Benign essential hypertension I10 ; Tobacco abuse counseling Z71.6 and Hyperlipemia E78.[address] [facility] [address] [id number] [place] [id number] February, COPD (chronic obstructive pulmonary dise ase) with chronic bronchitis J44.[address] [facility] [address] [id number] [place] [id number] Jan, [facility] [address] [id number] [place] [id number] Jan, COPD (chronic obstructive pulmonary dise ase) with chronic bronchitis J44.[address] [facility] [address] [id number] [place] [id number] Oct, COPD (chronic obstructive pulmonary dise ase) with chronic bronchitis J44.9 [facility]ITALEtive TechnologiesTER [address] [id number] [place] [address] Oct, Winter itch L29.[address] [id number] [place] [address] Oct, COPD (chronic obstructive pulmonary dise ase) with chronic bronchitis J44.9 ; Benign essential hypertension I10 ; Tobacco abuse Z72.0 and Gastroesophageal reflux disease without esophagitis K21.9 [email or web address] A[facility] [id number] [place] [address] Sep, Benign essential hypertension I10 [email or web address] [id number] [place] [id number] Aug, [facility] [address] [id number] [place] [id number] Jul, [email or web address] [id number] [place] 16087[address] Apr, [email or web address] [id number] [place] [id number] Apr, Abdominal bloating R14.0 ; Fatty liver K 76.0 ; Diverticulosis of intestine without bleeding, unspecified intestinal tract location K57.90 ; Chronic obstructive pulmonary disease, unspecified COPD type J44.9 and Benign essential hypertension I10 [facility] [id number] [place] [address] Apr, Mild early onset dysthymic disorder, in partial remission, with melancholic features, 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 [facility] [id number] [place] 4395134[address] Mar, Abdominal muscle strain, initial encount er S39.011A [facility] [address] [id number] [place] [address]006[address] Jan, Pancreatitis K85.9 ; Abdominal bloating R14.0 ; Chronic bronchitis J42 and Chronic pain G89.29 [facility] [address] [id number] [place] [id number] Nov, [facility] [address] [id number] [place] [address]69017795 Nov, [facility] [address] [id number] [place] 430304485 Nov, Chronic bronchitis J42 ; Tobacco abuse Z 72.0 and Tobacco abuse counseling Z71.6 [facility] [address] [id number] [place] [id number] Oct, [facility] [address] [id number] [place] 673996255 Oct, Chronic bronchitis J42 ; Tobacco abuse Z 72.0 and Benign essential hypertension I10 [facility] [address] [id number] [place] 543069407 Oct, Chronic bronchitis J42 ; Tobacco abuse Z 72.0 ; Tobacco abuse counseling Z71.6 ; Benign essential hypertension I10 and Hyperlipemia E78.5 [facility] [address] [facility] [id number] [address] [place] [address] Sep, [facility] [address] [id number] [place] [id number] Jul, [facility] [address] [place] [id number] [address] [place] [address] Jul, Essential (primary) hyperten aida I10 [facility] [address] [facility] [id number] [address] [place] [address] Jul, [facility] [address] [id number] [place] [id number] Jul, [facility] [address] [id number] [place] 979777478 Jun, Benign essential hypertension 401.1 ; Ge neralized edema 782.3 ; Chronic pain 338.29 and Hyperlipemia 272.4 [facility] [address] [id number] [place] [address]21 May, Upper respiratory infection 465.9 and Co ugh 786.2 [facility] [address] [facility] [address] [id number] [place] [id number] Mar, Upper respiratory infection 465.9 ; 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 and Cough 786.2 [facility] [address] [place] [address] A[address] [id number] [place] 722900555 February, [facility] [address] [facility] [address] [id number] [place], [place] [id number] February, Status post bilateral carotid endarterec vito V45.89 ; CAD (coronary artery disease) 414.00 ; Benign essential hypertension 401.1 ; Hyperlipemia 272.4 ; Tobacco abuse 305.1 ; Tobacco abuse counseling V65.42 and Chronic bronchitis 491.9 [facility] [address] [place] [id number] [address] [place] [address] Jan, [facility] [address] [place] [id number] [address] [place] [address] Jan, [facility] [address] [place] [id number] [address] [place] [address] Dec, [facility] [address] [place] [id number] [address] [place] [address] Dec, [facility] [id number] [place] [address] Nov, [facility] [address] [place] [id number] [address] [place] [address] Nov, [facility] [address] [place] [id number] [address] [place] [address] Nov, [facility] [address] [place] [id number] [address] [place] [address] Nov, [facility] [address] [place] [id number] [address] [place] [phone] Nov, [facility] [address] [id number] [address] [place] [address], [place] [address] Nov, [facility] [address] [id number] [address] [place] [address], [place] [address] Nov, [facility] [address] [id number] [address] [place] [address], [place] [address] Nov, [facility] [address] [id number] [address] [place] [address], [place] [address] Nov, [facility] [address] [id number] [address] [place] [address], [place] [address] Oct, [facility] [address] [id number] [address] [place] [address], [place] [address] Oct, [facility] [address] [id number] [address] [place] [address], [place] [address] Oct, [facility] [address] [id number] [address] [place] [address], [place] [address] Oct, [facility] [address] [id number] [address] [place] [address], [place] [address] Oct, [facility] [address] [id number] [address] [place] [address], [place] [address] Oct, [facility] [address] [id number] [address] [place] [address], [place] [address] Oct, [facility] [address] [id number] [address] [place] [address], [place] [address] Oct, [facility] [address] [id number] [address] [place] [address], [place] [address] Oct, [facility] [address] [id number] [address] [place] [address], [place] [address] Oct, [facility] [place] [address] [id number] [place] [id number] Oct, [facility] [address] [id number] [address] [place] [address], [place] [address] Oct, [facility] [address] [id number] [address] [place] [address], [place] [address] Sep, [facility] [address] [id number] [address] [place] [address], [place] [address] Sep, [facility] [address] [id number] [address] [place] [address], [place] [address] Aug, [facility] [address] [id number] [address] [place] [address], [place] [address] Aug, [facility] [address] [id number] [address] [place] [address], [place] [address] Aug, [facility] [address] [id number] [address] [place] [address], [place] [address] Aug, [facility] [address] [id number] [address] [place] [address], [place] [address] Jul, [facility] [address] [id number] [address] [place] [address], [place] [address] Jul, [facility] [address] [id number] [address] [place] [address], [place] [address] Jun, [facility] [address] [id number] [address] [place] [address], [place] [address] Jun, [facility] [address] [id number] [address] [place] [address], [place] [address] May, [facility] [address] [id number] [address] [place] [address], [place] [address] May, [facility] [address] [id number] [address] [place] [address], [place] [address] May, [facility] [address] [id number] [address] [place] [address], [place] [address] May, [facility] [address] [id number] [address] [place] [address], [place] [address] Jan, [facility] [address] [id number] [address] [place] [address], [place] [address] Jan, [facility] [address] [id number] [address] [place] [address], [place] [address] Nov, [facility] [address] [id number] [address] [place] [address], [place] [address] Nov, [facility] [address] [id number] [address] [place] [address], [place] [address] Nov, [facility] [address] [id number] [address] [place] [address], [place] [address] Nov, [facility] [address] [id number] [address] [place] [address], [place] [address] Nov, [facility] [address] [id number] [address] [place] [address], [place] [address] Nov, [facility] [address] [id number] [address] [place] [address], [place] [address] Nov, [facility] [address] [id number] [address] [place] [address], [place] [address] Nov, [facility] [address] [id number] [address] [place] [address], [place] [address] Nov, [facility] [address] [id number] [address] [place] [address], [place] [address] Nov, [facility] [address] [id number] [address] [place] [address], [place] [address] Oct, [facility] [address] [id number] [address] [place] [address], [place] [address] Oct, [facility] [address] [id number] [address] [place] [address], [place] [id number] Oct, [facility] [address] [id number] [address] [place] [address], [place] [id number] Oct, [facility] [address] [id number] [address] [place] [phone] Sep, [facility] [address] [id number] [address] [place] [phone] Sep, [facility] [address] [id number] [address] [place] [phone] Aug, [facility] [address] [id number] [address] [place] [phone] Aug, [facility] [address] [id number] [address] [place] [phone] Aug, [facility] [address] [id number] [address] [place] [address], [place] [id number] Aug, [facility] [address] [id number] [address] [place] [phone] Aug, [facility] [address] [id number] [address] [place] [phone] Aug, [facility] [address] [id number] [address] [place] [phone] Aug, [facility] [address] [id number] [address] [place] [phone] Aug, [facility] [address] [id number] [address] [place] [phone] Jul, [facility] [address] [id number] [address] [place] [phone] Jul, [facility] [address] [id number] [address] [place] [phone] Jul, [facility] [address] [id number] [address] [place] [id number] Jul, [facility] [address] [id number] [address] [place] [phone] Jul, [facility] [address] [id number] [address] [place] [phone] Jun, [facility] [address] [id number] [address] [place] [phone] May, [facility] [address] [id number] [address] [place] [id number] Apr, [facility] [address] [id number] [address] [place] [place] [phone] February, [facility] [address] [id number] [address] [place] [phone] Jan, [facility] [address] [id number] [address] [place] [phone] Jan, [facility] [address] [id number] [address] [place] [phone] Dec, [facility] [address] [id number] [address] [place] [phone] Dec, [facility] [address] [id number] [address] [place] [phone] Dec, [facility] [address] [id number] [address] [place] [phone] Nov, [facility] [address] [id number] [address] [place] [phone] Nov, [facility] [address] [id number] [address] [place] [phone] Nov, [facility] [address] [id number] [address] [place] [phone] Nov, IMMUNIZATIONS No Known Immunizations SOCIAL HISTORY Never Assessed REASON FOR VISIT EMR-[facility] PLAN OF CARE VITAL SIGNS MEDICATIONS Medication Instructions Dosage Frequency Start Date End Date Duration S tatus Aspirin 325 mg take 1 tablet (325 mg) by oral route once d aily Jul, Active Doxycycline Hyclate 100 mg take 1 tablet (100 mg) by oral route 2 times per day for 10 days Nov, Active amlodipine 5 mg 1 tablet by Oral route 1 time per day Dec, Active Bactrim DS 800-160 mg take [address] tablet [address] Oral rout e every 12 hours for 10 days Nov, Active Lisinopril 40 mg take 1 tablet by Oral route 1 time pe r day Take in am Nov, Active Metoprolol Tartrate 50 mg 1 tablet by Or al route 2 times per day (do not crush or chew)- Nov, Active Mobic 7.5 mg take 1 Tablet by Oral route 1 time per da y PRN pain Jun, Active Omeprazole 20 mg take 1 capsule (20 m g) by oral route once daily before a meal Aug, Active Gabapentin 600 mg take 1 tablet by Oral route 1 time per day Jun, Active Lipitor 40 mg take 1 tablet (40 mg) by oral route once daily Nov, Active Albuterol 90 mcg/actuation 2 puffs by In halation route 4 times per day PRN as needed for cough/wheeze/shortness of breath Nov, Active Zetia 10 mg 1 tablet by Oral route 1 time per day Oct Active RESULTS No Results PROCEDURES No Known [...]
--- OUTSIDE RECORDS SUMMARY | 2020-04-06 06:56 | XMS REPORT ---
Author Author Jermaine Aponte Doctor Organization [facility] Address Unknown Phone Unavailable Care Team Providers Care Filler Operator Name Role Phone Migration, Doctor Unavailable Unavailable PROBLEMS Type Condition ICD9-CM Code ASJ46-ML Code Onset Dates Condition S tatus SNOMED Code Problem CAD (coronary artery disease) I25.10 Active 52824710 Problem Tobacco abuse Z72.0 Active 055864 05 Problem Diverticulosis of intestine without bleeding, unspecified intestinal tract location K57.90 Active 54781275 Problem Chronic pain G89.29 Active 9665338 1 Problem Fatty liver K76.0 Active 14946375 7 Problem Abdominal bloating R14.0 Active 1 11791003 Problem Gastroesophageal reflux disease without esophagitis K21.9 Active 761955088 Problem COPD (chronic obstructive pulmonary disease) wit h chronic bronchitis J44.9 Active 709918472 Problem PAD (peripheral artery disease) I73.9 Active 054583811 Problem Chronic obstructive pulmonary disease, unspecified COPD ty pe J44.9 Active 79505591 Problem Non-rheumatic mitral regurgitation I34.0 Active 574184328 Problem S/P cardiac pacemaker procedure Z95.0 Active 233771359 Problem Claudication of both lower extremities I73.9 Active 933408868 Problem Chronic bronchitis J42 Active 6 5851959 Problem Diet-controlled diabetes mellitus E11.9 Active 157048748 Problem Bilateral carotid artery disease I77.9 Active 378865232 Problem Hyperlipemia E78.5 Active 7105976 4 Problem Benign essential hypertension I10 Active 6469012 Problem Claudication I73.9 Active 6937241 6 Problem Peripheral arterial disease I73.9 Ac tive 768412063 Problem Mixed hyperlipidemia E78.2 Active 777604404 Problem Other chronic pain G89.29 Active 8 [id number] ALLERGIES No Information ENCOUNTERS Encounter Location Date Diagnosis [facility] [address] [id number] [place] [id number] February, [facility] [address] [id number], [place] [id number] Jan, [facility] [address] [id number] [place] [id number] Sep, Diet-controlled diabetes mellitus E11.9 ; Benign essential hypertension I10 and Tobacco abuse Z72.[address] [facility] [address] [id number], [place] [id number] Jul, Hyperlipemia E78.5 and CAD (coronary art janneth disease) I25.10 [facility] [address] [id number], [place] [id number] Jun, CAD (coronary artery disease) I25.10 and Hyperlipemia E78.5 [facility] [address] [id number], [place] [id number] Jun, New onset type 2 diabetes mellitus E11.9 ; S/P CABG (coronary artery bypass graft) Z95.1 ; Benign essential hypertension I10 ; Other chronic pain G89.29 and S/P cardiac pacemaker procedure Z95.0 [facility] [address] [id number], [place] [id number] Jun, [facility] [address] [id number], [place] [id number] May, [facility] [address] [id number], [place] 4[address]29671 May, COPD (chronic obstructive pulmonary dise ase) with chronic bronchitis J44.9 ; Tobacco abuse Z72.0 and Tobacco abuse counseling Z71.6 [facility] [address] [id number], [place] [id number] Apr, CAD (coronary artery disease) I25.10 [facility] [address] [id number], [place] [id number] Mar, Peripheral arterial disease I73.9 [facility] [address] [id number], [place] [address]49[address] February, Chronic pain G89.29 ; Hyperlipemia E78.5 and Benign essential hypertension I[address] [facility] [address] [id number] [place] [address] Jan, COPD (chronic obstructive pulmonary dise ase) with chronic bronchitis J44.9 [facility] [address] [id number] [place] [id number] Jan, [facility] [address] [id number], [place] [address] Jan, Peripheral arterial disease I73.9 ; Carlo gn essential hypertension I10 ; Bilateral carotid artery disease I77.9 ; Claudication of both lower extremities I73.9 ; Mixed hyperlipidemia E78.2 ; Tobacco use Z72.0 and Non- rheumatic mitral regurgitation I34.0 [facility] [address] [id number], [place] [id number] Jan, RUQ pain R10.11 ; Gastroesophageal reflu x disease without esophagitis K21.9 and Change in stool R19.5 [facility] [address] [id number], [place] [id number] Jan, [facility] [id number], [place] [id number] Jan, Neck pain M54.2 ; Benign essential hyper tension I10 ; COPD (chronic obstructive pulmonary disease) with chronic bronchitis J44.9 and Chronic obstructive pulmonary disease, unspecified COPD type J44.9 [facility] [address] [id number], [place] [id number] Jan, Chronic obstructive pulmonary disease, u nspecified COPD type J44.9 [facility] [address] [id number], [place] [id number] Dec, [facility] [address] [id number], [place] [address]48257083 Dec, [facility] [address] [id number], [place] 825024896 Dec, COPD (chronic obstructive pulmonary dise ase) with chronic bronchitis J44.9 [facility] [address] [facility] [id number] [place], [place] [address] Dec, [facility] [address] [facility] [id number] 100[place] [address] Dec, [facility] [address] [id number], [place] [id number] Nov, [facility] [address] [id number], [place] [address] Nov, Benign essential hypertension I10 and CO PD (chronic obstructive pulmonary disease) with chronic bronchitis J44.[address] [id number], [place] 414024457 Nov, Hyperlipemia E78.5 ; Benign essential hy pertension I10 ; COPD (chronic obstructive pulmonary disease) with chronic bronchitis J44.9 ; Encounter for immunization Z23 ; Gastroesophageal reflux disease without esophagitis K21.9 and Chronic pain G89.29 [facility] [address] [id number], [place] [address]56 Oct, COPD (chronic obstructive pulmonary dise ase) with chronic bronchitis J44.9 and Chronic obstructive pulmonary disease, unspecified COPD type J44.[address] [id number], [place] 918287856 Oct, COPD (chronic obstructive pulmonary dise ase) with chronic bronchitis J44.9 and Chronic obstructive pulmonary disease, unspecified COPD type J44.[address] [id number], [place] 737698171 Oct, COPD (chronic obstructive pulmonary dise ase) with chronic bronchitis J44.9 and Chronic obstructive pulmonary disease, unspecified COPD type J44.9 [facility] [address] [id number], [place] 47[address] Oct, Benign essential hypertension I10 and Ne ck pain M54.2 [facility] [address] [place] [address] AVE [id number], [place] [address]54[address] Sep, PAD (peripheral artery disease) I73.9 ; Claudication of both lower extremities I73.9 ; Bilateral carotid artery disease I77.9 ; Benign essential hypertension I10 ; Hyperlipemia E78.5 and Dyspnea on exertion R06.09 [facility] [address] [id number], [place] [id number] Aug, Benign essential hypertension I10 ; Vannessa roesophageal reflux disease without esophagitis K21.9 and Cervical radiculopathy M54.12 [facility] [address] [id number], [place] [id number] Aug, Gastroesophageal reflux disease without esophagitis K21.9 [facility] [address] [id number], [place] [id number] Aug, COPD (chronic obstructive pulmonary dise ase) with chronic bronchitis J44.9 [facility] [address] [id number], [place] 854641433 Jul, [facility] [address] [id number], [place] 754307476 Jul, Benign essential hypertension I10 [facility] [address] [id number], [place] 164895055 Jul, [facility] [address] [id number], [place] [id number] Jul, COPD (chronic obstructive pulmonary dise ase) with chronic bronchitis J44.9 [facility] [address] [id number], [place] 619365943 Jul, Neck pain M54.2 [facility] [address] [id number], [place] 312548454 Jun, Claudication of both lower extremities I 73.9 ; PAD (peripheral artery disease) I73.9 ; Bilateral carotid artery disease I77.9 ; CAD (coronary artery disease) I25.10 ; Tobacco abuse Z72.0 ; Benign essential hypertension I10 ; Hyperlipemia E78.5 and Non-rheumatic mitral valve stenosis I34.2 [facility] [address] [id number], [place] [id number] Jun, Chronic obstructive pulmonary disease, u nspecified COPD type J44.9 [facility] [address] [id number] [place] [id number] May, [facility] [address] [id number] [place] 8528[address] May, Chronic obstructive pulmonary disease, u nspecified COPD type J44.[address] [facility] [address] [id number] [place] 79407[address] May, Neck pain M54.2 ; Chronic obstructive pu lmonary disease, unspecified COPD type J44.9 and Cervical radiculopathy M54.[address] [facility] [address] [id number] [place] 759329738 May, [facility] [address] [id number], [place] [id number] Apr, [facility] [address] [id number], [place] 190220489 Apr, Gastroesophageal reflux disease without esophagitis K21.[address] [facility] [address] [id number], [place] 642875234 Apr, COPD (chronic obstructive pulmonary dise ase) with chronic bronchitis J44.[address] [facility] [address] [id number], [place] 826509466 Apr, [facility] [address] [id number], [place] 990982873 Apr, [facility] [address] [id number], [place] 122412247 Apr, COPD (chronic obstructive pulmonary dise ase) with chronic bronchitis J44.9 ; Benign essential hypertension I10 ; Tobacco abuse counseling Z71.6 and Hyperlipemia E78.[address] [facility] [address] [id number], [place] 102200689 February, COPD (chronic obstructive pulmonary dise ase) with chronic bronchitis J44.[address] [facility] [address] [id number], [place] [id number] Jan, [facility] [address] [id number], [place] 185595574 Jan, COPD (chronic obstructive pulmonary dise ase) with chronic bronchitis J44.[address] [facility] [address] [id number], [place] 564917339 Oct, COPD (chronic obstructive pulmonary dise ase) with chronic bronchitis J44.9 [facility] [address] [id number], [place] 505041696 Oct, Winter itch L29.[address] [facility] [address] [id number], [place] 445724442 Oct, COPD (chronic obstructive pulmonary dise ase) with chronic bronchitis J44.9 ; Benign essential hypertension I10 ; Tobacco abuse Z72.0 and Gastroesophageal reflux disease without esophagitis K21.9 [facility] [address] [id number], [place] 824082638 Sep, Benign essential hypertension I[address] [id number], [place] 507732211 Aug, [facility] [address] [id number], [place] 662132998 Jul, [facility] [address] [id number], [place] [id number] Apr, [facility] [address] [id number], [place] 383836184 Apr, Abdominal bloating R14.0 ; Fatty liver K 76.0 ; Diverticulosis of intestine without bleeding, unspecified intestinal tract location K57.90 ; Chronic obstructive pulmonary disease, unspecified COPD type J44.9 and Benign essential hypertension I10 [facility] [address] [id number], [place] 226584267 Apr, Mild early onset dysthymic disorder, in partial remission, with melancholic features, 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 [facility] [address] [id number], [place] 754834102 Mar, Abdominal muscle strain, initial encount er S39.011A [facility] [address] [id number], [place] 329753415 Jan, Pancreatitis K85.9 ; Abdominal bloating R14.0 ; Chronic bronchitis J42 and Chronic pain G89.29 [facility] [address] [id number], [place] [id number] Nov, [facility] [address] [id number], [place] [id number] Nov, [facility] [address] [id number], [place] 860518085 Nov, Chronic bronchitis J42 ; Tobacco abuse Z 72.0 and Tobacco abuse counseling Z71.6 [facility] [address] [id number], [place] 525789704 Oct, [facility] [address] [id number], [place] 654826334 Oct, Chronic bronchitis J42 ; Tobacco abuse Z 72.0 and Benign essential hypertension I10 [facility] [address] [id number], [place] 040710474 Oct, Chronic bronchitis J42 ; Tobacco abuse Z 72.0 ; Tobacco abuse counseling Z71.6 ; Benign essential hypertension I10 [address]78[address]5 [facility] [address] [facility] [id number] [address] [place] [address] Sep, [facility] [address] [id number], [place] 977386313 Jul, [facility] [address] [place] [id number] [address] [place] [address] Jul, Essential (primary) hyperten aida I10 [facility] [address] [place] [id number] [address] [place] [address] Jul, [facility] [address] [id number], [place] [id number] Jul, [facility] [address] [id number], [place] 462950506 Jun, Benign essential hypertension 401.1 ; Ge neralized edema 782.3 ; Chronic pain 338.29 and Hyperlipemia 272.4 [facility] [address] [place] [address] AVE [id number], [place] 930367947 May, Upper respiratory infection 465.9 and Co ugh 786.[address] [id number], [place] [id number] Mar, Upper respiratory infection 465.9 ; 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 [address] [place] [id number] [address] [place] [address] Jan, [facility] [address] [address] Jan, [facility] [address] [place] [address] Dec, [facility] [address] [place] [id number] [address] [place] [address] Dec, [facility] [address] [place] [place] [id number] [address] [place] [address] Nov, [facility] [address] [place] [place] [id number] [address] [place] [address] Nov, [facility] [address] [place] [id number] [address] [place] [address] Nov, [facility] [address] [id number] [address] [place] [address], [place] [address] 17 Nov, 2014 [facility] [address] [id number] [address] [place] [address], [place] [address] Nov, 2014 [facility] [address] [id number] [address] [place] [address], [place] [address] Nov, 2014 [facility] [address] [id number] [address] [place] [address], [place] [address] Nov, 2014 [facility] [address] [id number] [address] [place] [address], [place] [address] Nov, [facility] [address] [id number] [address] [place] [address], [place] [address] Nov, [facility] [address] [id number] [address] [place] [address], [place] [address] Oct, [facility] [address] [id number] [address] [place] [address], [place] [address] Oct, [facility] [address] [id number] [address] [place] [address], [place] [address] Oct, [facility] [address] [id number] [address] [place] [address], [place] [address] Oct, [facility] [address] [id number] [address] [place] [address], [place] [address] Oct, [facility] [address] [id number] [address] [place] [address], [place] [address] Oct, [facility] [address] [id number] [address] [place] [address], [place] [address] Oct, [facility] [address] [id number] [address] [place] [address], [place] [address] Oct, [facility] [address] [id number] [address] [place] [address], [place] [address] Oct, [facility] [address] [id number] [address] [place] [id number] Oct, [facility] [address] [id number] [place] [id number] Oct, [facility] [address] [id number] [address] [place] [address], [place] [address] Oct, [facility] [address] [id number] [address] [place] [address], [place] [address] Sep, [facility] [address] [id number] [address] [place] [address], [place] [address] Sep, [facility] [address] [id number] [address] [place] [address], [place] [address] Aug, [facility] [address] [id number] [address] [place] [address], [place] [address] Aug, [facility] [address] [id number] [address] [place] [address], [place] [address] Aug, [facility] [address] [id number] [address] [place] [address], [place] [address] Aug, [facility] [address] [id number] [address] [place] [address], [place] [address] Jul, [facility] [address] [id number] [address] [place] [address], [place] [address] Jul, [facility] [address] [id number] [address] [place] [address], [place] [address] Jun, [facility] [address] [id number] [address] [place] [address], [place] [address] Jun, [facility] [address] [id number] [address] [place] [address], [place] [address] May, [facility] [address] [id number] [address] [place] [address], [place] [address] May, [facility] [address] [id number] [address] [place] [address], [place] [address] May, [facility] [address] [id number] [address] [place] [address], [place] [address] May, [facility] [address] [id number] [address] [place] [address], [place] [address] Jan, [facility] [address] [id number] [address] [place] [address], [place] [address] Jan, [facility] [address] [id number] [address] [place] [address], [place] [address] Nov, [facility] [address] [id number] [address] [place] [address], [place] [address] Nov, [facility] [address] [id number] [address] [place] [address], [place] [address] Nov, [facility] [address] [id number] [address] [place] [address], [place] [address] Nov, [facility] [address] [id number] [address] [place] [address], [place] [address] Nov, [facility] [address] [id number] [address] [place] [address], [place] [address] Nov, [facility] [address] [id number] [address] [place] [address], [place] [address] Nov, [facility] [address] [id number] [address] [place] [address], [place] [address] Nov, [facility] [address] [id number] [address] [place] [address], [place] [address] Nov, [facility] [address] [id number] [address] [place] [address], [place] [address] Nov, [facility] [address] [id number] [address] [place] [address], [place] [address] Oct, [facility] [address] [id number] [address] [place] [address], [place] [address] Oct, [facility] [address] [id number] [address] [place] [address], [place] [address] Oct, [facility] [address] [id number] [address] [place] [address], [place] [address] Oct, [facility] [address] [id number] [address] [place] [address], [place] [address] Sep, [facility] [address] [id number] [address] [place] [address], [place] [address] Sep, [facility] [address] [id number] [address] [place] [address] Aug, [facility] [address] [id number] [address] [place] [address], [place] [address] Aug, [facility] [address] [id number] [address] [place] [address], [place] [address] Aug, [facility] [address] [id number] [address] [place] [address], [place] [address] Aug, [facility] [address] [id number] [address] [place] [address], [place] [address] Aug, [facility] [address] [id number] [address] [place] [address], [place] [address] Aug, [facility] [address] [id number] [address] [place] [address], [place] [address] Aug, [facility] [address] [id number] [address] [place] [address] Aug, [facility] [address] [id number] [address] [place] [phone] Jul, [facility] [address] [id number] [address] [place] [address], [place] [phone] Jul, [facility] [address] [id number] [address] [place] [address], [place] [phone] Jul, [facility] [address] [id number] [address] [place] [address], [place] [phone] Jul, [facility] [address] [id number] [address] [place] [phone] Jul, [facility] [address] [id number] [address] [place] [phone] Jun, [facility] [address] [id number] [address] [place] [phone] May, [facility] [address] [id number] [address] [place] [phone] Apr, [facility] [address] [id number] [address] [place] [phone] February, [facility] [address] [id number] [address] [place] [phone] Jan, [facility] [address] [id number] [address] [place] [phone] Jan, [facility] [address] [id number] [address] [place] [phone] Dec, [facility] [address] [id number] [address] [place] [phone] Dec, [facility] [address] [id number] [address] [place] [phone] Dec, [facility] [address] [id number] [address] [place] [phone] Nov, [facility] [address] [id number] [address] [place] [phone] Nov, [facility] [address] [id number] [address] [place] [phone] Nov, [facility] [address] [id number] [address] [place] [phone] Nov, IMMUNIZATIONS No Known Immunizations SOCIAL HISTORY Never Assessed [place]ASON FOR [place]IT [place] [place] VITAL SIGNS MEDICATIONS Unknown Medications RESULTS No Results PROCEDURES No Known procedures INSTRUCTIONS MEDICATIONS ADMINISTERED No Known Medications MEDICAL (GENERAL) HISTORY Type Description Date Medical History GERD Medical History hypertension Medical History 1999 mild stroke syndrome- C T head 02/2015 showed chronic ischemic changes Medical History chronic neck and back pain Medical History ID [id number] 1996 and 2011 Medical History [...] 2018 Medical History CABG and Pacemaker 05/2018 ([place]) Surgical History carotid endarterectomy, left side of nec k 02/2015 Surgical History coronary angiography Dr Mane thakur [facility] [place]- normal EF, LV function,-minimal RCA [...]
--- OUTSIDE RECORDS SUMMARY | 2020-04-06 06:56 | XMS REPORT ---
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 Role Phone TIFFANIE CAMPOS Unavailable PROBLEMS Type Condition ICD9-CM Code SYH07-NI Code Onset Dates Condition S tatus SNOMED Code Problem PAD (peripheral artery disease) I73.9 Active 412711443 Problem Non-rheumatic mitral regurgitation I34.0 Active 337232076 Problem Chronic obstructive pulmonary disease, unspecified COPD ty pe J44.9 Active 33243524 Problem Diet-controlled diabetes mellitus E11.9 Active 341454874 Problem Benign essential hypertension I10 Active 2342030 Problem S/P cardiac pacemaker procedure Z95.0 Active 868652255 Problem Chronic bronchitis J42 Active 6 7797097 Problem Hyperlipemia E78.5 Active 7399102 4 Problem Peripheral arterial disease I73.9 Ac tive 379349981 Problem Claudication I73.9 Active 5975524 6 Problem Other chronic pain G89.29 Active 8 9830431 Problem Mixed hyperlipidemia E78.2 Active 664663111 Problem Chronic pain G89.29 Active 5044876 1 Problem Diverticulosis of intestine without bleeding, unspecified intestinal tract location K57.90 Active 28870871 Problem Tobacco abuse Z72.0 Active 044010 05 Problem CAD (coronary artery disease) I25.10 Active 53075122 Problem COPD (chronic obstructive pulmonary disease) wit h chronic bronchitis J44.9 Active 512871133 Problem Gastroesophageal reflux disease without esophagitis K21.9 Active 908538658 Problem Abdominal bloating R14.0 Active 1 68254087 Problem Bilateral carotid artery disease I77.9 Active 052145831 Problem Fatty liver K76.0 Active 60954639 7 Problem Claudication of both lower extremities I73.9 Active 747998698 ALLERGIES No Known Allergies ENCOUNTERS Encounter Location Date Diagnosis [facility] [address] [id number] [id number] Sep, Diet-controlled diabetes mellitus E11.9 ; Benign essential hypertension I10 and Tobacco abuse Z72.0 [facility] [address] [id number], [place] [id number] Jul, Hyperlipemia E78.5 and CAD (coronary art janneth disease) I25.10 [facility] [address] [id number], [place] [id number] Jun, CAD (coronary artery disease) I25.10 and Hyperlipemia E78.5 [facility] [address] [id number][place] [id number] Jun, New onset type 2 diabetes mellitus E11.9 ; S/P CABG (coronary artery bypass graft) Z95.1 ; Benign essential hypertension I10 ; Other chronic pain G89.29 and S/P cardiac pacemaker procedure Z95.0 [facility] [address] [address] [id number], [place] [address] Jun, [facility] [address] [id number], [place] [address] May, [facility] [address] [id number], [place] [address] May, COPD (chronic obstructive pulmonary dise ase) with chronic bronchitis J44.9 ; Tobacco abuse Z72.0 and Tobacco abuse counseling Z71.6 [facility] [address] [address] [id number], [place] [address] Apr, CAD (coronary artery disease) I25.10 [facility] [address] [id number], [place] 24[address]995[address] Mar, Peripheral arterial disease I73.9 [facility] [address] [id number], [place] [id number] February, Chronic pain G89.29 ; Hyperlipemia E78.5 and Benign essential hypertension I10 [facility] [address] [id number], [place] [address] Jan, COPD (chronic obstructive pulmonary dise ase) with chronic bronchitis J44.9 [facility] [address] [id number], [place] [address] Jan, [facility] [address] [id number], [place] [address] Jan, Peripheral arterial disease I73.9 ; Carlo gn essential hypertension I10 ; Bilateral carotid artery disease I77.9 ; Claudication of both lower extremities I73.9 ; Mixed hyperlipidemia E78.2 ; Tobacco use Z72.0 and Non- rheumatic mitral regurgitation I34.0 [facility] [address] [id number], [place] [id number] Jan, RUQ pain R10.11 ; Gastroesophageal reflu x disease without esophagitis K21.9 and Change in stool R19.5 [facility] [address] [id number], [place] [id number] Jan, [facility] [address] [id number], [place] [address] Jan, Neck pain M54.2 ; Benign essential hyper tension I10 ; COPD (chronic obstructive pulmonary disease) with chronic bronchitis J44.9 and Chronic obstructive pulmonary disease, unspecified COPD type J44.9 [facility] [address] [id number], [place] [id number] Jan, Chronic obstructive pulmonary disease, u nspecified COPD type J44.9 [facility] [address] [id number], [place] [id number] Dec, [facility] [address] [id number], [place] [address] Dec, [facility] [address] [id number], [place] [id number] Dec, COPD (chronic obstructive pulmonary dise ase) with chronic bronchitis J44.9 [facility] [address] [facility] [id number] [address] [place] [address] Dec, [facility] [address] [facility] [id number] [address] [place] [address] Dec, [facility] [address] [place] [address] AVE [id number], [place] [address] Nov, [address] [id number], [place] [address]66[address] Nov, Benign essential hypertension I10 and CO PD (chronic obstructive pulmonary disease) with chronic bronchitis J44.[address] [id number], [place] [address]24[address]88 Nov, Hyperlipemia E78.5 ; Benign essential hy pertension I10 ; COPD (chronic obstructive pulmonary disease) with chronic bronchitis J44.9 ; Encounter for immunization Z23 ; Gastroesophageal reflux disease without esophagitis K21.9 and Chronic pain G89.[address] [id number], [place] [id number] Oct, COPD (chronic obstructive pulmonary dise ase) with chronic bronchitis J44.9 and Chronic obstructive pulmonary disease, unspecified COPD type J44.[address] [id number], [place] 580968814 Oct, COPD (chronic obstructive pulmonary dise ase) with chronic bronchitis J44.9 and Chronic obstructive pulmonary disease, unspecified COPD type J44.[address] [id number], [place] [id number] Oct, COPD (chronic obstructive pulmonary dise ase) with chronic bronchitis J44.9 and Chronic obstructive pulmonary disease, unspecified COPD type J44.[address] [id number], [place] [address]840037[address] Oct, Benign essential hypertension I10 and Ne ck pain M54.[address] [id number], [place] [address]39[address] Sep, PAD (peripheral artery disease) I73.9 ; Claudication of both lower extremities I73.9 ; Bilateral carotid artery disease I77.9 ; Benign essential hypertension I10 ; Hyperlipemia E78.5 and Dyspnea on exertion R06.09 [facility] [address] [id number], [place] [id number] Aug, Benign essential hypertension I10 ; Vannessa roesophageal reflux disease without esophagitis K21.9 and Cervical radiculopathy M54.12 [facility] [address] [id number], [place] [address]86[address] Aug, Gastroesophageal reflux disease without esophagitis K21.9 [facility] [address] [id number], [place] [id number] Aug, COPD (chronic obstructive pulmonary dise ase) with chronic bronchitis J44.9 [facility] [address] [id number], [place] [id number] Jul, [facility] [address] [id number], [place] [id number] Jul, Benign essential hypertension I10 [facility] [address] [id number], [place] [id number] Jul, [facility] [address] [id number], [place] [id number] Jul, COPD (chronic obstructive pulmonary dise ase) with chronic bronchitis J44.9 [facility] [address] [id number], [place] [address]707[address] Jul, Neck pain M54.2 [facility] [address] [id number], [place] 759583870 Jun, Claudication of both lower extremities I 73.9 ; PAD (peripheral artery disease) I73.9 ; Bilateral carotid artery disease I77.9 ; CAD (coronary artery disease) I25.10 ; Tobacco abuse Z72.0 ; Benign essential hypertension I10 ; Hyperlipemia E78.5 and Non-rheumatic mitral valve stenosis I34.2 [facility] [address] [id number], [place] 585642268 Jun, Chronic obstructive pulmonary disease, u nspecified COPD type J44.9 [facility] [address] [id number], [place] [id number] May, [facility] [address] [id number] [place] [id number] May, Chronic obstructive pulmonary disease, u nspecified COPD type J44.[address] [facility] [address] [id number] [place] [id number] May, Neck pain M54.2 ; Chronic obstructive pu lmonary disease, unspecified COPD type J44.9 and Cervical radiculopathy M54.[address] [facility] [address] [id number] [place] [id number] May, [facility] [address] [id number] [place] [id number] Apr, [facility] [address] [id number] [place] [id number] Apr, Gastroesophageal reflux disease without esophagitis K21.[address] [facility] [address] [id number] [place] 6346023[address] Apr, COPD (chronic obstructive pulmonary dise ase) with chronic bronchitis J44.9 [facility] [address] [id number] [place] [id number] Apr, [facility] [address] [id number], [place] [id number] Apr, [facility] [address] [id number] [place] [id number] Apr, COPD (chronic obstructive pulmonary dise ase) with chronic bronchitis J44.9 ; Benign essential hypertension I10 ; Tobacco abuse counseling Z71.6 and Hyperlipemia E78.[address] [facility] [address] [id number] [place] [id number] February, COPD (chronic obstructive pulmonary dise ase) with chronic bronchitis J44.[address] [facility] [address] [id number] [place] [id number] Jan, [facility] [address] [id number] [place] [id number] Jan, COPD (chronic obstructive pulmonary dise ase) with chronic bronchitis J44.9 [facility] [address] [id number], [place] [id number] Oct, COPD (chronic obstructive pulmonary dise ase) with chronic bronchitis J44.[address] [facility] [address] [id number], [place] [id number] Oct, Winter itch L29.[address] [facility] [address] [id number], [place] 894247931 Oct, COPD (chronic obstructive pulmonary dise ase) with chronic bronchitis J44.9 ; Benign essential hypertension I10 ; Tobacco abuse Z72.0 and Gastroesophageal reflux disease without esophagitis K21.9 [facility] [address] [id number], [place] [id number] Sep, Benign essential hypertension I[address] [id number], [place] [address]24540[address] Aug, [facility] [address] [id number], [place] [id number] Jul, [facility] [address] [id number], [place] [id number] Apr, [facility] [address] [address] [id number], [place] [id number] Apr, Abdominal bloating R14.0 ; Fatty liver K 76.0 ; Diverticulosis of intestine without bleeding, unspecified intestinal tract location K57.90 ; Chronic obstructive pulmonary disease, unspecified COPD type J44.9 and Benign essential hypertension I[address] [id number], [place] [id number] Apr, Mild early onset dysthymic disorder, in partial remission, with melancholic features, 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 [id number], [place] [id number] Mar, Abdominal muscle strain, initial encount er S39.011A [facility] [address] [id number], [place] [id number] Jan, Pancreatitis K85.9 ; Abdominal bloating R14.0 ; Chronic bronchitis J42 and Chronic pain G89.29 [facility] [address] [id number], [place] 500672389 Nov, [facility] [address] [id number], [place] [id number] Nov, [facility] [address] [id number], [place] [id number] Nov, Chronic bronchitis J42 ; Tobacco abuse Z 72.0 and Tobacco abuse counseling Z71.6 [facility] [address] [id number], [place] [id number] Oct, [facility] [address] [id number], [place] [id number] Oct, Chronic bronchitis J42 ; Tobacco abuse Z 72.0 and Benign essential hypertension I10 [facility] [address] [id number], [place] 511113627 Oct, Chronic bronchitis J42 ; Tobacco abuse Z 72.0 ; Tobacco abuse counseling Z71.6 ; Benign essential hypertension I10 and Hyperlipemia E78.5 [facility] [address] [id number] [address] [place] [address] Sep, [facility] [address] [id number], [place] [id number] Jul, [facility] [id number] [place] [id number] Jul, Essential (primary) hyperten aida I10 [facility] [address] [place] [id number] [address] [place] [address] Jul, [facility] [address] [id number], [place] [id number] Jul, [facility] [address] [id number], [place] [id number] Jun, Benign essential hypertension 401.1 ; Ge neralized edema 782.3 ; Chronic pain 338.29 and Hyperlipemia 272.4 [facility] [address] [id number], [place] [id number] May, Upper respiratory infection 465.9 and Co ugh 786.2 [facility] [address] [id number], [place] 980438085 Mar, Upper respiratory infection 465.9 ; 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 and Cough 786.2 [facility] [address] [id number], [place] [id number] February, [facility] [address] [id number], [place] 036592346 February, Status post bilateral carotid endarterec vito V45.89 ; CAD (coronary artery disease) 414.00 ; Benign essential hypertension 401.1 ; Hyperlipemia 272.4 ; Tobacco abuse 305.1 ; Tobacco abuse counseling V65.42 and Chronic bronchitis 491.9 [facility] [address] [address] Jan, [facility] [address] [phone] Jan, [facility] [address] [place] [place] [id number] [address] [place] [address] Dec, [facility] [address] [id number] [address] [place] [address] Dec, [facility] [address] [place] [id number] [address] [place] [address] Nov, [facility] [address] [id number] [address] [place] [address] Nov, [facility] [address] [id number] [address] [place] [address] Nov, [facility] [address] [id number] [address] [place] [address] Nov, [facility] [address] [id number] [address] [place] [address], [place] [address] 17 Nov, 2014 [facility] [address] [id number] [address] [place] [address], [place] [address] Nov, [facility] [address] [id number] [address] [place] [address], [place] [address] Nov, [facility] [address] [id number] [address] [place] [address], [place] [address] Nov, [facility] [address] [id number] [address] [place] [address], [place] [address] Nov, [facility] [address] [id number] [address] [place] [address], [place] [address] Oct, [facility] [address] [id number] [address] [place] [address], [place] [address] Oct, [facility] [address] [id number] [address] [place] [address], [place] [address] Oct, [facility] [address] [id number] [address] [place] [address], [place] [address] Oct, [facility] [address] [id number] [address] [place] [address], [place] [address] Oct, [facility] [address] [id number] [address] [place] [address], [place] [address] Oct, [facility] [address] [id number] [address] [place] [address] Oct, [facility] [address] [id number] [address] [place] [address], [place] [address] Oct, [facility] [address] [id number] [address] [place] [address], [place] [address] Oct, [facility] [address] [id number] [address] [place] [address] Oct, [facility] [address] [id number] [place] [id number] Oct, [facility] [address] [id number] [address] [place] [address], [place] [address] Oct, [facility] [address] [id number] [address] [place] [address], [place] [address] Sep, [facility] [address] [id number] [address] [place] [address], [place] [address] Sep, [facility] [address] [id number] [address] [place] [address], [place] [address] Aug, [facility] [address] [id number] [address] [place] [address], [place] [address] Aug, [facility] [address] [id number] [address] [place] [address], [place] [address] Aug, [facility] [address] [id number] [address] [place] [address], [place] [address] Aug, [facility] [address] [id number] [address] [place] [address], [place] [address] Jul, [facility] [address] [id number] [address] [place] [address], [place] [address] Jul, [facility] [address] [id number] [address] [place] [address], [place] [address] Jun, [facility] [address] [id number] [address] [place] [address], [place] [address] Jun, [facility] [address] [id number] [address] [place] [address], [place] [address] May, [facility] [address] [id number] [address] [place] [address], [place] [address] May, [facility] [address] [id number] [address] [place] [address], [place] [address] May, [facility] [address] [id number] [address] [place] [address], [place] [address] May, [facility] [address] [id number] [address] [place] [address], [place] [address] Jan, [facility] [address] [id number] [address] [place] [address], [place] [address] Jan, [facility] [address] [id number] [address] [place] [address], [place] [address] Nov, [facility] [address] [id number] [address] [place] [address], [place] [address] Nov, [facility] [address] [id number] [address] [place] [address], [place] [address] Nov, [facility] [address] [id number] [address] [place] [address], [place] [address] Nov, [facility] [address] [id number] [address] [place] [address], [place] [address] Nov, [facility] [address] [id number] [address] [place] [address], [place] [address] Nov, [facility] [address] [id number] [address] [place] [address], [place] [address] Nov, [facility] [address] [id number] [address] [place] [address], [place] [address] Nov, [facility] [address] [id number] [address] [place] [address], [place] [address] Nov, [facility] [address] [id number] [address] [place] [address], [place] [address] Nov, [facility] [address] [id number] [address] [place] [address], [place] [address] Oct, [facility] [address] [id number] [address] [place] [address], [place] [address] Oct, [facility] [address] [id number] [address] [place] [address], [place] [address] Oct, [facility] [address] [id number] [address] [place] [address] Oct, [facility] [address] [id number] [address] [place] [address], [place] [address] Sep, [facility] [address] [id number] [address] [place] [address] Sep, [facility] [address] [id number] [address] [place] [address], [place] [id number] Aug, [facility] [address] [id number] [address] [place] [id number] Aug, [facility] [address] [id number] [address] [place] [address], [place] [id number] Aug, [facility] [address] [id number] [address] [place] [id number] Aug, [facility] [address] [id number] [address] [place] [id number] Aug, [facility] [address] [id number] [address] [place] [id number] Aug, [facility] [address] [id number] [address] [place] [id number] Aug, [facility] [address] [id number] [address] [place] [id number] Aug, [facility] [address] [id number] [address] [place] [id number] Jul, [facility] [address] [id number] [address] [place] [id number] Jul, [facility] [address] [id number] [address] [place] [id number] Jul, [facility] [address] [id number] [address] [place] [id number] Jul, [facility] [address] [id number] [address] [place] [id number] Jul, [facility] [address] [id number] [address] [place] [id number] Jun, [facility] [place] [address] [id number] [address] [place] [id number] May, [facility] [place] [address] [id number] [address] [place] [id number] Apr, [facility] [place] [address] [id number] [address] [place] [id number] February, [facility] [place] [address] [id number] [address] [place] [id number] Jan, [facility] [place] [address] [id number] [address] [place] [id number] Jan, [facility] [place] [address] [id number] [address] [place] [id number] Dec, [facility] [facility] [place] [address] [id number] [address] [place] [id number] Dec, [facility] [place] [address] [id number] [address] [place] [id number] Dec, [facility] [place] [address] [id number] [address] [place] [id number] Nov, [facility] [place] [address] [id number] [address] [place] [phone] Nov, [facility] [place] [address] [id number] [address] [place] [id number] Nov, [facility] [place] [address] [id number] [address] [place] [phone] Nov, IMMUNIZATIONS No Known Immunizations SOCIAL HISTORY Never Assessed REASON FOR VISIT Diabetes bferrisma PLAN OF CARE Activity Details Follow Up 6 Months Reason:BP/lung foll ow up ( 1 week nurse BP visit) VITAL SIGNS Height 62 in 2018-09-23 Weight 154.3 lbs 2018-09-23 Temperature 97.1 degrees Fahrenheit 2018-09-23 Heart Rate 94 bpm 2018-09-23 Respiratory Rate 20 2018-09-23 Oximetry 97 % 2018-09-23 BMI 28.22 kg/m2 2018-09-23 Blood pressure systolic 176 mmHg 2018-09-23 Blood pressure diastolic 80 mmHg 2018-09-23 MEDICATIONS Medication Instructions Dosage Frequency Start Date End Date Duration S tatus Aspirin 81 MG Orally Once a day 1 tablet 24h Active Fish Oil 500 mg Orally 3 times a day TAKE ONE CAPSULE BY MOUTH THREE TIMES DAILY 8h 30 Active Carvedilol 6.25 MG Orally 2 times a day 1 tablet 12h 90 days Active Ventolin HFA 108 (90 Base) MCG/ACT INHAL E 2 PUFFS BY MOUTH EVERY 4 HOURS NEEDED 17 Active Gabapentin 600 MG Orally 3 times a day 1 tablet 8h 30 Active Pantoprazole Sodium 40 MG Orally Once a day 1 tablet 24h 30 day(s) Active Crestor 20 mg Orally Once a day 1 tablet 24h Apr, 90 days Active RESULTS Name Result Date Reference Range A1C (IN HOUSE) 2018-09-23 A1C IN HOUSE 5.8 4.3 - 5.6 % Previous A1c Lot [id number] Exp date 07/04 PROCEDURES Procedure Date Ordered Result Body Site GLYCATED HEMOGLOBIN TEST Sep 23, 2018 INSTRUCTIONS MEDICATIONS ADMINISTERED No Known Medications MEDICAL [...]
--- OUTSIDE RECORDS SUMMARY | 2020-04-06 06:57 | XMS REPORT ---
Author Author Jermaine CAMPOS Organization [facility] Address [address] [place] [address] Care Team Providers Care Molding Line Operator Name Role Phone TIFFANIE CAMPOS Unavailable PROBLEMS Type Condition ICD9-CM Code NXT78-PQ Code Onset Dates Condition S tatus SNOMED Code Problem PAD (peripheral artery disease) I73.9 Active 046319031 Problem Mixed hyperlipidemia E78.2 Active 214956749 Problem Chronic obstructive pulmonary disease, unspecified COPD ty pe J44.9 Active 44233823 Problem Other chronic pain G89.29 Active 8 4894426 Problem Benign essential hypertension I10 Active 2619816 Problem New onset type 2 diabetes mellitus E11.9 Active 73130214 Problem Chronic bronchitis J42 Active 6 5229370 Problem Hyperlipemia E78.5 Active 0435654 4 Problem Peripheral arterial disease I73.9 Ac tive 877495497 Problem Claudication I73.9 Active 4384833 6 Problem S/P cardiac pacemaker procedure Z95.0 Active 161209260 Problem Non-rheumatic mitral regurgitation I34.0 Active 688363525 Problem Chronic pain G89.29 Active 3951689 1 Problem Diverticulosis of intestine without bleeding, unspecified intestinal tract location K57.90 Active 92029140 Problem Tobacco abuse Z72.0 Active 595914 05 Problem CAD (coronary artery disease) I25.10 Active 37844495 Problem COPD (chronic obstructive pulmonary disease) wit h chronic bronchitis J44.9 Active 881814612 Problem Gastroesophageal reflux disease without esophagitis K21.9 Active 958637094 Problem Abdominal bloating R14.0 Active 1 66689817 Problem Bilateral carotid artery disease I77.9 Active 597162966 Problem Fatty liver K76.0 Active 62860513 7 Problem Claudication of both lower extremities I73.9 Active 222211703 ALLERGIES No Known Allergies ENCOUNTERS Encounter Location Date Diagnosis [facility] [address] [facility] [id number] [id number] Jun, CAD (coronary artery disease) I25.10 and Hyperlipemia E78.5 [facility] [address] [id number], [place] [address] Jun, New onset type 2 diabetes mellitus E11.9 ; S/P CABG (coronary artery bypass graft) Z95.1 ; Benign essential hypertension I10 ; Other chronic pain G89.29 and S/P cardiac pacemaker procedure Z95.0 [facility] [id number], [place] [address] Jun, [facility] [id number], [place] [id number] May, [facility] [id number], [place] [address] May, COPD (chronic obstructive pulmonary dise ase) with chronic bronchitis J44.9 ; Tobacco abuse Z72.0 and Tobacco abuse counseling Z71.6 [facility] [id number], [place] [id number] Apr, CAD (coronary artery disease) I25.10 [facility] [id number], [place] [id number] Mar, Peripheral arterial disease I73.9 [facility] [id number], [place] [address] February, Chronic pain G89.29 ; Hyperlipemia E78.5 and Benign essential hypertension I10 [facility] [address] [id number], [place] [id number] Jan, COPD (chronic obstructive pulmonary dise ase) with chronic bronchitis J44.9 [facility] [id number], [place] [address] Jan, [facility] [id number], [place] [address] Jan, Peripheral arterial disease I73.9 ; Carlo gn essential hypertension I10 ; Bilateral carotid artery disease I77.9 ; Claudication of both lower extremities I73.9 ; Mixed hyperlipidemia E78.2 ; Tobacco use Z72.0 and Non- rheumatic mitral regurgitation I34.0 [facility] [address] [id number] [place] [address] Jan, RUQ pain R10.11 ; Gastroesophageal reflu x disease without esophagitis K21.9 and Change in stool R19.5 [facility] [address] [id number] [place] [address] Jan, [facility] [address] [id number], [place] [address] Jan, Neck pain M54.2 ; Benign essential hyper tension I10 ; COPD (chronic obstructive pulmonary disease) with chronic bronchitis J44.9 and Chronic obstructive pulmonary disease, unspecified COPD type J44.9 [facility] [address] [id number], [place] [address] Jan, Chronic obstructive pulmonary disease, u nspecified COPD type J44.9 [facility] [address] [id number], [place] [address] Dec, [facility] [address] [id number], [place] [address] Dec, [facility] [address] [id number], [place] [address]57 Dec, COPD (chronic obstructive pulmonary dise ase) with chronic bronchitis J44.9 [facility] [address] [facility] [id number] [address] [place] [phone] Dec, [facility] [address] [facility] [id number] [address] [place] [phone] Dec, [facility] [address] [id number], [place] [id number] Nov, [facility] [address] [id number], [place] [id number] Nov, Benign essential hypertension I10 and CO PD (chronic obstructive pulmonary disease) with chronic bronchitis J44.[address] [facility] [address] [id number] [place] [id number] Nov, Hyperlipemia E78.5 ; Benign essential hy pertension I10 ; COPD (chronic obstructive pulmonary disease) with chronic bronchitis J44.9 ; Encounter for immunization Z23 ; Gastroesophageal reflux disease without esophagitis K21.9 and Chronic pain G89.29 [facility] [id number] [place] [id number] Oct, COPD (chronic obstructive pulmonary dise ase) with chronic bronchitis J44.9 and Chronic obstructive pulmonary disease, unspecified COPD type J44.9 [facility] [address] [employer] [place] [address] AVE [id number] [place] [id number] Oct, COPD (chronic obstructive pulmonary dise ase) with chronic bronchitis J44.9 and Chronic obstructive pulmonary disease, unspecified COPD type J44.9 [facility] [address] [employer] [address] [id number] [place] [id number] Oct, COPD (chronic obstructive pulmonary dise ase) with chronic bronchitis J44.9 and Chronic obstructive pulmonary disease, unspecified COPD type J44.9 [facility] [address] [employer] [address] [id number], [place] [id number] Oct, Benign essential hypertension I10 and Ne ck pain M54.2 [facility] [address] [address] [id number], [place] [address] Sep, PAD (peripheral artery disease) I73.9 ; Claudication of both lower extremities I73.9 ; Bilateral carotid artery disease I77.9 ; Benign essential hypertension I10 ; Hyperlipemia E78.5 and Dyspnea on exertion R06.09 [facility] [address] [id number], [place] [address] Aug, Benign essential hypertension I10 ; Vannessa roesophageal reflux disease without esophagitis K21.9 and Cervical radiculopathy M54.12 [facility] [id number] [place] [id number] Aug, Gastroesophageal reflux disease without esophagitis K21.9 [facility] [id number] [place] [id number] Aug, COPD (chronic obstructive pulmonary dise ase) with chronic bronchitis J44.9 [facility] [address] [id number] [place] [id number] Jul, [facility] [address] [id number] [place] [address] Jul, Benign essential hypertension I10 [facility] [address] [id number] [place] [id number] Jul, [facility] [address] [id number], [place] [address] Jul, COPD (chronic obstructive pulmonary dise ase) with chronic bronchitis J44.9 [facility] [address] [id number], [place] [address]95547994 Jul, Neck pain M54.2 [facility] [address] [id number], [place] [address] Jun, Claudication of both lower extremities I 73.9 ; PAD (peripheral artery disease) I73.9 ; Bilateral carotid artery disease I77.9 ; CAD (coronary artery disease) I25.10 ; Tobacco abuse Z72.0 ; Benign essential hypertension I10 ; Hyperlipemia E78.5 and Non-rheumatic mitral valve stenosis I34.2 [facility] [address] [id number], [place] 645362318 Jun, Chronic obstructive pulmonary disease, u nspecified COPD type J44.9 [facility] [address] [id number], [place] 923713124 May, [facility] [address] [id number], [place] [address]16449831 May, Chronic obstructive pulmonary disease, u nspecified COPD type J44.9 [facility] [address] [id number], [place] [address]78 May, Neck pain M54.2 ; Chronic obstructive pu lmonary disease, unspecified COPD type J44.9 and Cervical radiculopathy M54.[address] [facility] [address] [id number] [place] [id number] May, [facility] [address] [id number] [place] [id number] Apr, [facility] [address] [id number], [place] [id number] Apr, Gastroesophageal reflux disease without esophagitis K21.[address] [facility] [address] [id number], [place] [id number] Apr, COPD (chronic obstructive pulmonary dise ase) with chronic bronchitis J44.[address] [facility] [address] [id number], [place] 129254020 Apr, [facility] [address] [id number], [place] [id number] Apr, [facility] [address] [id number], [place] 479[address]1909 Apr, COPD (chronic obstructive pulmonary dise ase) with chronic bronchitis J44.9 ; Benign essential hypertension I10 ; Tobacco abuse counseling Z71.6 and Hyperlipemia E78.[address] [facility] [address] [id number], [place] [id number] February, COPD (chronic obstructive pulmonary dise ase) with chronic bronchitis J44.[address] [facility] [address] [id number], [place] 658675[address] Jan, [facility] [address] [id number], [place] 674771021 Jan, COPD (chronic obstructive pulmonary dise ase) with chronic bronchitis J44.[address] [facility] [address] [id number], [place] 938333656 Oct, COPD (chronic obstructive pulmonary dise ase) with chronic bronchitis J44.[address] [facility] [address] [id number], [place] 034641723 Oct, Winter itch L29.[address] [facility] [address] [id number], [place] 237663980 Oct, COPD (chronic obstructive pulmonary dise ase) with chronic bronchitis J44.9 ; Benign essential hypertension I10 ; Tobacco abuse Z72.0 and Gastroesophageal reflux disease without esophagitis K21.9 [facility] [address]in[address] [id number], [place] [id number] Sep, Benign essential hypertension I10 [facility] [employer] [address] [id number], [place] 813779789 Aug, [facility] [employer] [address] [id number], [place] [id number] Jul, [facility] [employer] [address] [id number], [place] [id number] Apr, [facility] [employer] [address] [id number], [place] 804848432 Apr, Abdominal bloating R14.0 ; Fatty liver K 76.0 ; Diverticulosis of intestine without bleeding, unspecified intestinal tract location K57.90 ; Chronic obstructive pulmonary disease, unspecified COPD type J44.9 and Benign essential hypertension I10 [facility] [employer] 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 [address] [id number], [place] [id number] Jan, Pancreatitis K85.9 ; Abdominal bloating R14.0 ; Chronic bronchitis J42 and Chronic pain G89.29 [facility] [employer] [address] [id number], [place] 616893635 Nov, [facility] [address] [id number], [place] [id number] Nov, [facility] [id number], [place] 704404955 Nov, Chronic bronchitis J42 ; Tobacco abuse Z 72.0 and Tobacco abuse counseling Z71.6 [facility] [address] [id number], [place] [id number] Oct, [facility] [facility] [address] [id number], [place] [id number] Oct, Chronic bronchitis J42 ; Tobacco abuse Z 72.0 and Benign essential hypertension I10 [place] [address] [facility] [address] [id number], [place] 988599124 Oct, Chronic bronchitis J42 ; Tobacco abuse Z 72.0 ; Tobacco abuse counseling Z71.6 ; Benign essential hypertension I10 and Hyperlipemia E78.5 [facility] [address] [facility] [id number] [address] [place] [phone] Sep, [facility] [address] [id number], [place] [id number] Jul, [facility] [address] [place] [id number] [address] [place] [phone] Jul, Essential (primary) hyperten aida I10 [facility] [address] [facility] [id number] [address] [place] [phone] Jul, [facility] [address] [place] [address] AVE [id number], [place] [id number] Jul, [facility] [address] [id number], [place] 369337871 Jun, Benign essential hypertension 401.1 ; Ge neralized edema 782.3 ; Chronic pain 338.29 and Hyperlipemia 272.4 [facility] [address] [place] [address] AVE [id number], [place] [id number] May, Upper respiratory infection 465.9 and Co ugh 786.[address] [id number], [place] [id number] Mar, Upper respiratory infection 465.9 ; Toba new account interviewer abuse 305.1 and Cough 786.2 [facility] [address] [id number], [place] [id number] February, [facility] [address] [id number], [place] 742402144 February, Status post bilateral carotid endarterec vito V45.89 ; CAD (coronary artery disease) 414.00 ; Benign essential hypertension 401.1 ; Hyperlipemia 272.4 ; Tobacco abuse 305.1 ; Tobacco abuse counseling V65.42 and Chronic bronchitis 491.9 [facility] [address] [facility] [id number] [address] [place] [phone] Jan, [facility] [address] [facility] [id number] [address] [place] [phone] Jan, [facility] [address] [facility] [id number] [address] [place] [id number] Dec, [facility] [address] [facility] [id number] [address] [place] [phone] Dec, [facility] [address] [facility] [id number] [address] [place] [id number] Nov, [facility] [address] [facility] [id number] [address] [place] [phone] Nov, [facility] [address] [facility] [id number] [address] [place] [phone] Nov, [facility] [address] [facility] [id number] [address] [place] [phone] Nov, [facility] [address] [facility] [id number] [address] [place] [phone] Nov, [facility] [address] [facility] [id number] [address] [place] [phone] Nov, [facility] [address] [facility] [id number] [address] [place] [phone] Nov, [facility] [address] [id number] [address] [place] [address], [place] [address] Nov, [facility] [address] [id number] [address] [place] [address], [place] [address] Nov, [facility] [address] [id number] [address] [place] [address], [place] [address] Oct, [facility] [address] [id number] [address] [place] [address], [place] [address] Oct, [facility] [address] [id number] [address] [place] [address], [place] [address] Oct, [facility] [address] [id number] [address] [place] [address], [place] [address] Oct, [facility] [address] [id number] [address] [place] [address], [place] [address] Oct, [facility] [address] [id number] [address] [place] [address], [place] [address] Oct, [facility] [address] [id number] [address] [place] [address], [place] [address] Oct, [facility] [address] [id number] [address] [place] [address], [place] [address] Oct, [facility] [address] [id number] [address] [place] [address], [place] [address] Oct, [facility] [address] [id number] [address] [place] [address], [place] [address] Oct, [facility] [address] [id number] [place] [id number] Oct, [facility] [address] [id number] [address] [place] [address], [place] [address] Oct, [facility] [address] [id number] [address] [place] [address], [place] [address] Sep, [facility] [address] [id number] [address] [place] [address], [place] [address] Sep, [facility] [address] [id number] [address] [place] [address], [place] [address] Aug, [facility] [address] [id number] [address] [place] [address], [place] [address] Aug, [facility] [address] [id number] [address] [place] [address], [place] [address] Aug, [facility] [address] [id number] [address] [place] [address], [place] [address] Aug, [facility] [address] [id number] [address] [place] [address], [place] [address] Jul, [facility] [address] [id number] [address] [place] [address], [place] [address] Jul, [facility] [address] [id number] [address] [place] [address], [place] [address] Jun, [facility] [address] [id number] [address] [place] [address], [place] [address] Jun, [facility] [address] [id number] [address] [place] [address], [place] [address] May, [facility] [address] [id number] [address] [place] [address], [place] [address] May, [facility] [address] [id number] [address] [place] [address], [place] [address] May, [facility] [address] [id number] [address] [place] [address], [place] [address] May, [facility] [address] [id number] [address] [place] [address], [place] [address] Jan, [facility] [address] [id number] [address] [place] [address], [place] [address] Jan, [facility] [address] [id number] [address] [place] [address], [place] [address] Nov, [facility] [address] [id number] [address] [place] [address] [place] [address] Nov, [facility] [address] [id number] [address] [place] [address], [place] [address] Nov, [facility] [address] [id number] [address] [place] [address], [place] [address] Nov, [facility] [address] [id number] [address] [place] [address], [place] [address] Nov, [facility] [address] [id number] [address] [place] [address], [place] [address] Nov, [facility] [address] [id number] [address] [place] [address], [place] [address] Nov, [facility] [address] [id number] [address] [place] [address], [place] [address] Nov, [facility] [address] [id number] [address] [place] [address], [place] [address] Nov, [facility] [address] [id number] [address] [place] [address], [place] [address] Nov, [facility] [address] [id number] [address] [place] [address], [place] [address] Oct, [facility] [address] [id number] [address] [place] [address], [place] [address] Oct, [facility] [address] [id number] [address] [place] [address], [place] [address] Oct, [facility] [address] [id number] [address] [place] [address], [place] [address] Oct, [facility] [address] [id number] [address] [place] [address], [place] [address] Sep, [facility] [address] [id number] [address] [place] [address], [place] [address] Sep, [facility] [address] [id number] [address] [place] [address], [place] [address] Aug, [facility] [address] [id number] [address] [place] [address], [place] [address] Aug, [facility] [address] [id number] [address] [place] [address], [place] [id number] Aug, [facility] [address] [id number] [address] [place] [address], [place] [id number] Aug, [facility] [address] [id number] [address] [place] [address], [place] [id number] Aug, [facility] [address] [id number] [address] [place] [address], [place] [id number] Aug, [facility] [address] [id number] [address] [place] [address], [place] [id number] Aug, [facility] [address] [id number] [address] [place] [address], [place] [id number] Aug, [facility] [address] [id number] [address] [place] [address], [place] [id number] Jul, [facility] [address] [id number] [address] [place] [address], [place] [id number] Jul, [facility] [address] [id number] [address] [place] [phone] Jul, [facility] [address] [id number] [address] [place] [address], [place] [id number] Jul, [facility] [address] [id number] [address] [place] [id number] Jul, [facility] [address] [id number] [address] [place] [address], [place] [id number] Jun, [facility] [address] [id number] [address] [place] [id number] May, [facility] [address] [id number] [address] [place] [address], [place] [id number] Apr, [facility] [address] [id number] [address] [place] [id number] February, [facility] [address] [id number] [address] [place] [id number] Jan, [facility] [address] [id number] [address] [place] [id number] Jan, [facility] [address] [id number] [address] [place] [id number] Dec, [facility] [address] [address] [id number] [address] [place] [id number] Dec, [facility] [address] [id number] [address] [place] [phone] Dec, [facility] [address] [id number] [address] [place] [phone] Nov, [facility] [address] [id number] [address] [place] [id number] Nov, [facility] [address] [id number] [address] [place] [phone] Nov, [facility] [address] [id number] [address] [place] [phone] Nov, IMMUNIZATIONS No Known Immunizations SOCIAL HISTORY Never Assessed REASON FOR VISIT Hospital f/u for heart surgery on Jun 06. [facility] PLAN OF CARE Activity Details Follow Up 3 Months Reason:DM visit VITAL SIGNS Height 62 in 2018-06-24 Weight 153.9 lbs 2018-06-24 Temperature 99.4 degrees Fahrenheit 2018-06-24 Heart Rate 97 bpm 2018-06-24 Respiratory Rate 20 2018-06-24 Oximetry 94 % 2018-06-24 BMI 28.15 kg/m2 2018-06-24 Blood pressure systolic 154 mmHg 2018-06-24 Blood pressure diastolic 70 mmHg 2018-06-24 MEDICATIONS Medication Instructions Dosage Frequency Start Date End Date Duration S tatus Bevespi Aerosphere 9-4.8 MCG/ACT Inhalation Twice a day 2 puffs 12h 30 Active Ventolin HFA 108 (90 Base) MCG/ACT Inhalation every 4 hrs 2 puffs a s needed 4h Active Protonix 40 mg Orally Once a day- stop omeprazole 1 tablets 2016 Active Gabapentin 600 MG Orally Twice a day 1 tablet 12h Active Norvasc 10 MG Orally Once a day 1 tablet 24h Active Aspirin 81 MG Orally Once a day 1 tablet 24h Active Fish Oil 500 mg Orally 3 times a day TAKE ONE CAPSULE BY MOUTH THREE TIMES DAILY 8h 30 Active Crestor 20 mg Orally Once a day 1 tablet 24h Apr, 90 days Active Chantix 1 MG Orally Twice a day- x12 weeks 1/2 tablet daily x 3 days, then 1/2 tablet twice daily x 3 days, then 1 tablet twice daily 2017Aug, 90 days Not-Taking Flovent HFA 110 MCG/ACT Inhalation Twice a day (PALS) 2 puff Oct, 30 days Active Lisinopril 40 mg Orally Once a day 1 tablet Once a day Orally 24h Active Carvedilol 3.125 MG Orally 2 times a day 1 tablet 12h Active RESULTS No Results PROCEDURES No Known procedures INSTRUCTIONS MEDICATIONS ADMINISTERED No Known Medications MEDICAL (GENERAL) HISTORY Type Description Date Medical History GERD Medical History hypertension Medical History 1999 mild stroke syndrome- C T head 02/2015 showed chronic ischemic changes Medical History chronic neck and back pain Medical History [place] x's 2 1996 and 2011 Medical History [...]
--- OUTSIDE RECORDS SUMMARY | 2020-04-06 06:57 | XMS REPORT ---
Author Author Jermaine CAMPOS Organization [facility] Address [address] [place] [address] Care Team Providers Care Continuous Absorption Process Operator Name Role Phone TIFFANIE CAMPOS Unavailable PROBLEMS Type Condition ICD9-CM Code DQS03-[place] Code Onset Dates Condition S tatus SNOMED Code Problem PAD (peripheral artery disease) I73.9 Active 129660993 Problem Mixed hyperlipidemia E78.2 Active 347420213 Problem Chronic obstructive pulmonary disease, unspecified COPD ty pe J44.9 Active 52018296 Problem Other chronic pain G89.29 Active 8 3816535 Problem Benign essential hypertension I10 Active 5901156 Problem New onset type 2 diabetes mellitus E11.9 Active 96320858 Problem Chronic bronchitis J42 Active 6 1810731 Problem Hyperlipemia E78.5 Active 5853453 4 Problem Peripheral arterial disease I73.9 Ac tive 463051162 Problem Claudication I73.9 Active 8626706 6 Problem S/P cardiac pacemaker procedure Z95.0 Active 646724635 Problem Non-rheumatic mitral regurgitation I34.0 Active 488733691 Problem Chronic pain G89.29 Active 7354038 1 Problem Diverticulosis of intestine without bleeding, unspecified intestinal tract location K57.90 Active 75684324 Problem Tobacco abuse Z72.0 Active 461876 05 Problem CAD (coronary artery disease) I25.10 Active 70684862 Problem COPD (chronic obstructive pulmonary disease) wit h chronic bronchitis J44.9 Active 650636786 Problem Gastroesophageal reflux disease without esophagitis K21.9 Active 533019933 Problem Abdominal bloating R14.0 Active 1 07270237 Problem Bilateral carotid artery disease I77.9 Active 840386572 Problem Fatty liver K76.0 Active 79354186 7 Problem Claudication of both lower extremities I73.9 Active 243460062 ALLERGIES No Information ENCOUNTERS Encounter Location Date Diagnosis [facility] [address] [facility] [id number] [id number] Jul, Hyperlipemia E78.5 and CAD (coronary art janneth disease) I25.10 [facility] [address] [id number] [place] [id number] Jun, CAD (coronary artery disease) I25.10 and Hyperlipemia E78.5 [facility] [address] [id number] [place] [address] Jun, New onset type 2 diabetes mellitus E11.9 ; S/P CABG (coronary artery bypass graft) Z95.1 ; Benign essential hypertension I10 ; Other chronic pain G89.29 and S/P cardiac pacemaker procedure Z95.0 [facility] [address] [id number] [place] [id number] Jun, [facility] [address] [id number] CREEK[place] [address] May, [facility] [address] [id number] [place] [address] May, COPD (chronic obstructive pulmonary dise ase) with chronic bronchitis J44.9 ; Tobacco abuse Z72.0 and Tobacco abuse counseling Z71.6 [facility] [address] [id number] [place] [address] Apr, CAD (coronary artery disease) I25.10 [facility] [address] [id number] [place]REEK[place] [address] Mar, Peripheral arterial disease I73.9 [facility] [address] [id number] [place] [id number] February, Chronic pain G89.29 ; Hyperlipemia E78.5 and Benign essential hypertension I10 [facility] [address] [id number] [place] [address] Jan, COPD (chronic obstructive pulmonary dise ase) with chronic bronchitis J44.9 [facility] [address] [id number] CREEK[place] [address] Jan, [facility] [address] [id number] [place] [address] Jan, Peripheral arterial disease I73.9 ; Carlo gn essential hypertension I10 ; Bilateral carotid artery disease I77.9 ; Claudication of both lower extremities I73.9 ; Mixed hyperlipidemia E78.2 ; Tobacco use Z72.0 and Non- rheumatic mitral regurgitation I34.0 [facility] [address] [id number] [place]REEK[place] [id number] Jan, RUQ pain R10.11 ; Gastroesophageal reflu x disease without esophagitis K21.9 and Change in stool R19.5 [facility] [address] [address] [id number] [place] [address] Jan, [facility] [address] [id number] CREEK[place] [id number] Jan, Neck pain M54.2 ; Benign essential hyper tension I10 ; COPD (chronic obstructive pulmonary disease) with chronic bronchitis J44.9 and Chronic obstructive pulmonary disease, unspecified COPD type J44.9 [facility] [address] [id number] [place]REEK[place] [id number] Jan, Chronic obstructive pulmonary disease, u nspecified COPD type J44.9 [facility] [address] [id number] [place] [address] Dec, [facility] [address] [id number] CREEK, [place] [id number] Dec, [facility] [address] [id number] [place] [id number] Dec, COPD (chronic obstructive pulmonary dise ase) with chronic bronchitis J44.9 [facility] [address] [facility] [id number] [address] [place] [address] Dec, [facility] [address] [facility] [id number] [address] [place] [address] Dec, [facility] [address] [id number] [place] [id number] Nov, [facility] [address] [id number] [place] [address] Nov, Benign essential hypertension I10 and CO PD (chronic obstructive pulmonary disease) with chronic bronchitis J44.9 [facility] [address] [id number] CREEK, [place] [address] Nov, Hyperlipemia E78.5 ; Benign essential hy pertension I10 ; COPD (chronic obstructive pulmonary disease) with chronic bronchitis J44.9 ; Encounter for immunization Z23 ; Gastroesophageal reflux disease without esophagitis K21.9 and Chronic pain G89.29 [facility] [address] [id number] [place] [id number] Oct, COPD (chronic obstructive pulmonary dise ase) with chronic bronchitis J44.9 and Chronic obstructive pulmonary disease, unspecified COPD type J44.[address] [id number] C[place], [place] [address] Oct, COPD (chronic obstructive pulmonary dise ase) with chronic bronchitis J44.9 and Chronic obstructive pulmonary disease, unspecified COPD type J44.9 [facility] [address] [id number] C[place] [id number] Oct, COPD (chronic obstructive pulmonary dise ase) with chronic bronchitis J44.9 and Chronic obstructive pulmonary disease, unspecified COPD type J44.9 [facility] [address] [id number] [place] [address] Oct, Benign essential hypertension I10 and Ne ck pain M54.[address] [id number] [place], [place] [address] Sep, PAD (peripheral artery disease) I73.9 ; Claudication of both lower extremities I73.9 ; Bilateral carotid artery disease I77.9 ; Benign essential hypertension I10 ; Hyperlipemia E78.5 and Dyspnea on exertion R06.09 [facility] [address] [id number] [place] [id number] Aug, Benign essential hypertension I10 ; Vannessa roesophageal reflux disease without esophagitis K21.9 and Cervical radiculopathy M54.12 [facility] [address] [id number] [place] [address] Aug, Gastroesophageal reflux disease without esophagitis K21.[address] [facility] [address] [id number] [place], [place] [id number] Aug, COPD (chronic obstructive pulmonary dise ase) with chronic bronchitis J44.9 [facility] [address] [id number] CREEK, [place] [address] Jul, [facility] [address] [id number] CREEK[place] [address] Jul, Benign essential hypertension I10 [facility] [address] [id number] [place], [place] [address] Jul, [facility] [address] [id number] [place] [id number] Jul, COPD (chronic obstructive pulmonary dise ase) with chronic bronchitis J44.9 [facility] [address] [id number] [place] [id number] Jul, Neck pain M54.2 [facility] [address] [id number] [place] [address] Jun, Claudication of both lower extremities I 73.9 ; PAD (peripheral artery disease) I73.9 ; Bilateral carotid artery disease I77.9 ; CAD (coronary artery disease) I25.10 ; Tobacco abuse Z72.0 ; Benign essential hypertension I10 ; Hyperlipemia E78.5 and Non-rheumatic mitral valve stenosis I34.2 [facility] [address] [id number] CREEK, [place] [address] Jun, Chronic obstructive pulmonary disease, u nspecified COPD type J44.[address] [facility] [address] [id number] CREEK[place] [id number] May, [facility] [address] [id number] [place], [place] [address] May, Chronic obstructive pulmonary disease, u nspecified COPD type J44.9 [facility] [address] [id number] [place] [id number] May, Neck pain M54.2 ; Chronic obstructive pu lmonary disease, unspecified COPD type J44.9 and Cervical radiculopathy M54.[address] [facility] [address] [id number] [place] [id number] May, [facility] [address] [id number] [place] [address] Apr, [facility] [address] [id number] [place] [address] Apr, Gastroesophageal reflux disease without esophagitis K21.[address] [facility] [address] [id number] [place] [id number] Apr, COPD (chronic obstructive pulmonary dise ase) with chronic bronchitis J44.9 [facility] [address] [id number] [place] [id number] Apr, [facility] [address] [id number] CREEK[place] [id number] Apr, [facility] [address] [id number] [place]REEK, [place] [address]65[address] Apr, COPD (chronic obstructive pulmonary dise ase) with chronic bronchitis J44.9 ; Benign essential hypertension I10 ; Tobacco abuse counseling Z71.6 and Hyperlipemia E78.[address] [facility] [address] [id number] [place] [address] February, COPD (chronic obstructive pulmonary dise ase) with chronic bronchitis J44.9 [facility] [address] [id number] [place] [address] Jan, [facility] [address] [id number] CREEK, [place] [id number] Jan, COPD (chronic obstructive pulmonary dise ase) with chronic bronchitis J44.9 [facility] [address] [id number] [place] [address] Oct, COPD (chronic obstructive pulmonary dise ase) with chronic bronchitis J44.9 [facility] [address] [id number] [place] [address] Oct, Winter itch L29.8 [facility] [id number] [place] [address] Oct, COPD (chronic obstructive pulmonary dise ase) with chronic bronchitis J44.9 ; Benign essential hypertension I10 ; Tobacco abuse Z72.0 and Gastroesophageal reflux disease without esophagitis K21.[address] [facility] [address] [id number] [place]REEK, [place] 274353069 Sep, Benign essential hypertension I[address] [id number] [place], [place] [address] Aug, [facility] [id number] [place], [place] [id number] Jul, [facility] [id number] [place] [address] Apr, [facility] [id number] [place], [place] [id number] Apr, Abdominal bloating R14.0 ; Fatty liver K 76.0 ; Diverticulosis of intestine without bleeding, unspecified intestinal tract location K57.90 ; Chronic obstructive pulmonary disease, unspecified COPD type J44.9 and Benign essential hypertension I10 [facility] [facility] [id number] CREEK, [place] [id number] Apr, Mild early onset dysthymic disorder, in partial remission, with melancholic features, 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 [facility] [facility] [id number] CREEK, [place] [id number] Mar, Abdominal muscle strain, initial encount er S39.011A [facility] [id number] CREEK, [place] 85815[address] Jan, Pancreatitis K85.9 ; Abdominal bloating R14.0 ; Chronic bronchitis J42 and Chronic pain G89.29 [facility] [facility] [id number] CREEK, [place] [id number] Nov, [facility] [address] [id number] [place]REEK, [place] [id number] Nov, [facility] [address] [id number] [place], [place] [id number] Nov, Chronic bronchitis J42 ; Tobacco abuse Z 72.0 and Tobacco abuse counseling Z71.6 [facility] [address] [id number] [place], [place] 495160749 Oct, [facility] [address] [id number] [place], [place] [id number] Oct, Chronic bronchitis J42 ; Tobacco abuse Z 72.0 and Benign essential hypertension I10 [facility] [address] [id number] [place], [place] [id number] Oct, Chronic bronchitis J42 ; Tobacco abuse Z 72.0 ; Tobacco abuse counseling Z71.6 ; Benign essential hypertension I10 and Hyperlipemia E78.5 [facility] [address] [facility] [id number] [address] [place] [address] Sep, [facility] [address] [id number] CREEK, [place] [id number] Jul, [facility] [address] [facility] [id number] [address] [place] [address] Jul, Essential (primary) hyperten aida I10 [facility] [address] [facility] [id number] [address] [place] [address] Jul, [facility] [address] [id number] CREEK, [place] [id number] Jul, [facility] [address] [id number] [place], [place] 640608119 Jun, Benign essential hypertension 401.1 ; Ge neralized edema 782.3 ; Chronic pain 338.29 and Hyperlipemia 272.4 [facility] [address] [id number] [place], [place] [id number] May, Upper respiratory infection 465.9 and Co ugh 786.2 [facility] [address] [id number] CREEK[place] [id number] Mar, Upper respiratory infection 465.9 ; 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 and Cough 786.2 [facility] [address] [id number] [place], [place] [id number] February, [facility] [address] [id number] C[place], [place] 190745180 February, Status post bilateral carotid endarterec vito V45.89 ; CAD (coronary artery disease) 414.00 ; Benign essential hypertension 401.1 ; Hyperlipemia 272.4 ; Tobacco abuse 305.1 ; Tobacco abuse counseling V65.42 and Chronic bronchitis 491.9 [facility] [address] [facility] [id number] [address] [place] [address] Jan, [facility] [address] [place] [id number] [place] [address] Jan, [facility] [address] [facility] [id number] [address] [place] [address] Dec, [facility] [address] [place] [id number] [address] [place] [address] Dec, [facility] [address] [place] [id number] [address] [place] [address] Nov, [facility] [address] [facility] [id number] [address] [place] [address] Nov, [facility] [address] [facility] [id number] [address] [place] [address] Nov, [facility] [address] [facility] [id number] [address] [place] [address] Nov, [facility] [address] [facility] [id number] [address] [place] [address] Nov, [facility] [address] [place] [id number] [address] [place] [address] Nov, [facility] [address] [id number] [address] [place] [address], [place] [address] Nov, [facility] [address] [id number] [address] [place] [address], [place] [address] Nov, [facility] [address] [id number] [address] [place] [address], [place] [address] Nov, [facility] [address] [id number] [address] [place] [address] Oct, [facility] [address] [id number] [address] [place] [address], [place] [address] Oct, [facility] [address] [id number] [address] [place] [address], [place] [address] Oct, [facility] [address] [id number] [address] [place] [address] Oct, [facility] [address] [id number] [address] [place] [address], [place] [address] Oct, [facility] [address] [id number] [address] [place] [address] Oct, [facility] [address] [id number] [address] [place] [address] Oct, [facility] [address] [id number] [address] [place] [address] Oct, [facility] [address] [id number] [address] [place] [address] Oct, [facility] [address] [id number] [address] [place] [address] Oct, [facility] [place] [address] [id number] [place] [id number] Oct, [facility] [address] [id number] [address] [place] [address] Oct, [facility] [address] [id number] [address] [place] [address], [place] [address] Sep, [facility] [address] [id number] [address] [place] [address], [place] [address] Sep, [facility] [address] [id number] [address] [place] [address], [place] [address] Aug, [facility] [address] [id number] [address] [place] [address], [place] [address] Aug, [facility] [address] [id number] [address] [place] [address], [place] [address] Aug, [facility] [address] [id number] [address] [place] [address], [place] [address] Aug, [facility] [address] [id number] [address] [place] [address], [place] [address] Jul, [facility] [address] [id number] [address] [place] [address], [place] [address] Jul, [facility] [address] [id number] [address] [place] [address], [place] [address] Jun, [facility] [address] [id number] [address] [place] [address], [place] [address] Jun, [facility] [address] [id number] [address] [place] [address], [place] [address] May, [facility] [address] [id number] [address] [place] [address], [place] [address] May, [facility] [address] [id number] [address] [place] [address], [place] [address] May, [facility] [address] [id number] [address] [place] [address], [place] [address] May, [facility] [address] [id number] [address] [place] [address], [place] [address] Jan, [facility] [address] [id number] [address] [place] [address], [place] [address] Jan, [facility] [address] [id number] [address] [place] [address], [place] [address] Nov, [facility] [address] [id number] [address] [place] [address], [place] [address] Nov, [facility] [address] [id number] [address] [place] [address], [place] [address] Nov, [facility] [address] [id number] [address] [place] [address], [place] [address] Nov, [facility] [address] [id number] [address] [place] [address], [place] [address] Nov, [facility] [address] [id number] [address] [place] [address], [place] [address] Nov, [facility] [address] [id number] [address] [place] [address], [place] [address] Nov, [facility] [address] [id number] [address] [place] [address], [place] [address] Nov, [facility] [address] [id number] [address] [place] [address], [place] [address] Nov, [facility] [address] [id number] [address] [place] [address], [place] [address] Nov, [facility] [address] [id number] [address] [place] [address], [place] [address] Oct, [facility] [address] [id number] [address] [place] [address], [place] [address] Oct, [facility] [address] [id number] [address] [place] [address], [place] [address] Oct, [facility] [address] [id number] [address] [place] [address], [place] [address] Oct, [facility] [address] [id number] [address] [place] [address], [place] [address] Sep, [facility] [address] [id number] [address] [place] [address], [place] [address] Sep, [facility] [address] [id number] [address] [place] [address], [place] [address] Aug, [facility] [address] [id number] [address] [place] [address], [place] [address] Aug, [facility] [address] [id number] [address] [place] [address], [place] [address] Aug, [facility] [address] [id number] [address] [place] [address], [place] [address] Aug, [facility] [address] [id number] [address] [place] [address], [place] [address] Aug, [facility] [address] [id number] [address] [place] [address], [place] [address] Aug, [facility] [address] [id number] [address] [place] [address], [place] [address] Aug, [facility] [address] [id number] [address] [place] [address], [place] [address] Aug, [facility] [address] [id number] [address] [place] [address], [place] [address] Jul, [facility] [address] [id number] [address] [place] [address], [place] [address] Jul, [facility] [address] [id number] [address] [place] [address], [place] [address] Jul, [facility] [address] [id number] [address] [place] [address], [place] [address] Jul, [facility] [address] [id number] [address] [place] [address], [place] [address] Jul, [facility] [address] [id number] [address] [place] [address], [place] [address] Jun, [facility] [address] [id number] [address] [place] [address], [place] [address] May, [facility] [address] [id number] [address] [place] [id number] Apr, [facility] [address] [id number] [address] [place] [id number] February, [facility] [address] [id number] [address] [place] [id number] Jan, [facility] [address] [id number] [address] [place] [id number] Jan, [facility] [address] [id number] [address] [place] [address] Dec, [facility] [address] [id number] [address] [place] [id number] Dec, [facility] [address] [id number] [address] [place] [id number] Dec, [facility] [address] [address] [id number] [address] [place] [phone] Nov, [facility] [address] [id number] [address] [place] [phone] Nov, [facility] [address] [id number] [address] [place] [id number] Nov, [facility] [address] [id number] [address] [place] [id number] Nov, IMMUNIZATIONS No Known Immunizations SOCIAL HISTORY Never Assessed REASON FOR VISIT labs bferrisma PLAN OF CARE VITAL SIGNS MEDICATIONS Unknown Medications RESULTS No Results PROCEDURES Procedure Date Ordered Result Body Site ROUTINE VENIPUNCTURE 2018-07-15 N/A LAB NOT BILLED BY [facility] Jul 15, 2018 INSTRUCTIONS MEDICATIONS ADMINISTERED No Known Medications [...] Surgical History coronary angiography Dr Mane thakur [facility]- normal EF, LV function,-minimal RCA blockage <20% 1996 [facility]os[facility], mild nonspecific bulbar duodenitis 1996 Surgical History carotid endarterectomy, right- Merc 01/14 015 Surgical History Heart cath with PTCA 2013 Surgical History Colonoscopy- tubular adenoma , hyperplastic polyp- repeat Colonoscopy 12/2016 Surgical History Bypass Surgery- CABG and Pacemaker 06/06 Hospitalization History heart attack 1996 Hospitalization History slurred speech, fever, left arm pain Sharifa Shah February 2015 Hospitalization History Pancreatitis 12/2015 Hospitalization History CABG 05/2018
--- OUTSIDE RECORDS SUMMARY | 2020-04-06 06:57 | XMS REPORT ---
Author Author Jermaine CAMPOS Organization [facility] Address [address] [place] [address] Care Team Providers Care Optician Name Role Phone TIFFANIE CAMPOS Unavailable PROBLEMS Type Condition ICD9-CM Code EQV03-CF Code Onset Dates Condition S tatus SNOMED Code Problem PAD (peripheral artery disease) I73.9 Active 776036211 Problem Mixed hyperlipidemia E78.2 Active 057308909 Problem Chronic obstructive pulmonary disease, unspecified COPD ty pe J44.9 Active 49222988 Problem Other chronic pain G89.29 Active 8 6056925 Problem Benign essential hypertension I10 Active 3949572 Problem New onset type 2 diabetes mellitus E11.9 Active 69000437 Problem Chronic bronchitis J42 Active 6 0585704 Problem Hyperlipemia E78.5 Active 9366925 4 Problem Peripheral arterial disease I73.9 Ac tive 708164450 Problem Claudication I73.9 Active 4292732 6 Problem S/P cardiac pacemaker procedure Z95.0 Active 872442533 Problem Non-rheumatic mitral regurgitation I34.0 Active 365151841 Problem Chronic pain G89.29 Active 7746829 1 Problem Diverticulosis of intestine without bleeding, unspecified intestinal tract location K57.90 Active 78645008 Problem Tobacco abuse Z72.0 Active 238089 05 Problem CAD (coronary artery disease) I25.10 Active 95586469 Problem COPD (chronic obstructive pulmonary disease) wit h chronic bronchitis J44.9 Active 860889703 Problem Gastroesophageal reflux disease without esophagitis K21.9 Active 778334063 Problem Abdominal bloating R14.0 Active 1 51516347 Problem Bilateral carotid artery disease I77.9 Active 888540912 Problem Fatty liver K76.0 Active 75669266 7 Problem Claudication of both lower extremities I73.9 Active 915504571 ALLERGIES No Information ENCOUNTERS Encounter Location Date Diagnosis [facility] [address] [facility] [id number] [id number] Jul, Hyperlipemia E78.5 and CAD (coronary art janneth disease) I25.10 [facility] [address] [id number][place] [id number] Jun, CAD (coronary artery disease) I25.10 and Hyperlipemia E78.5 [facility] [address] [address] [id number], [place] 911366945 Jun, New onset type 2 diabetes mellitus E11.9 ; S/P CABG (coronary artery bypass graft) Z95.1 ; Benign essential hypertension I10 ; Other chronic pain G89.29 and S/P cardiac pacemaker procedure Z95.0 [facility] [address] [id number][place] [id number] Jun, [facility] [address] [address] [id number], [place] 197553576 May, [facility] [address] [address] [id number], [place] [address]29499420 May, COPD (chronic obstructive pulmonary dise ase) with chronic bronchitis J44.9 ; Tobacco abuse Z72.0 and Tobacco abuse counseling Z71.6 [facility] [address] [id number], [place] [address]50[address] Apr, CAD (coronary artery disease) I25.10 [facility] [address] [address] [id number], [place] [address]358174[address] Mar, Peripheral arterial disease I73.9 [facility] [address] [address] [id number], [place] 668389277 February, Chronic pain G89.29 ; Hyperlipemia E78.5 and Benign essential hypertension I10 [facility] [address] [id number], [place] 850077249 Jan, COPD (chronic obstructive pulmonary dise ase) with chronic bronchitis J44.9 [facility] [address] [address] [id number], [place] 483077[address] Jan, [facility] [address] [address] [id number], [place] 237217751 Jan, Peripheral arterial disease I73.9 ; Carlo gn essential hypertension I10 ; Bilateral carotid artery disease I77.9 ; Claudication of both lower extremities I73.9 ; Mixed hyperlipidemia E78.2 ; Tobacco use Z72.0 and Non- rheumatic mitral regurgitation I34.0 [facility] [address] [id number], [place] [address] Jan, RUQ pain R10.11 ; Gastroesophageal reflu x disease without esophagitis K21.9 and Change in stool R19.5 [facility] [address] [id number], [place] [address]2552[address] Jan, [facility] [address] [address] [id number], [place] 605287253 Jan, Neck pain M54.2 ; Benign essential hyper tension I10 ; COPD (chronic obstructive pulmonary disease) with chronic bronchitis J44.9 and Chronic obstructive pulmonary disease, unspecified COPD type J44.9 [facility] [address] [id number], [place] 692315602 Jan, Chronic obstructive pulmonary disease, u nspecified COPD type J44.9 [facility] [address] [id number], [place] [address]354110[address] Dec, [facility] [address] [id number], [place] 606217702 Dec, [facility] [address] [address] [id number], [place] 186863136 Dec, COPD (chronic obstructive pulmonary dise ase) with chronic bronchitis J44.9 [facility] [address] [facility] [id number] [address] [place] [address] Dec, [facility] [address] [facility] [id number] [address] [place] [address] Dec, [facility] [address] [address] [id number], [place] 238762210 Nov, [facility] [address] [id number], [place] 69579217[address] Nov, Benign essential hypertension I10 and CO PD (chronic obstructive pulmonary disease) with chronic bronchitis J44.9 [facility] [address] [id number], [place] [address]39688000 Nov, Hyperlipemia E78.5 ; Benign essential hy pertension I10 ; COPD (chronic obstructive pulmonary disease) with chronic bronchitis J44.9 ; Encounter for immunization Z23 ; Gastroesophageal reflux disease without esophagitis K21.9 and Chronic pain G89.29 [facility] [address] [id number], [place] 111698868 Oct, COPD (chronic obstructive pulmonary dise ase) with chronic bronchitis J44.9 and Chronic obstructive pulmonary disease, unspecified COPD type J44.[address] [id number], [place] [id number] Oct, COPD (chronic obstructive pulmonary dise ase) with chronic bronchitis J44.9 and Chronic obstructive pulmonary disease, unspecified COPD type J44.9 [facility] [address] [id number], [place] 804520197 Oct, COPD (chronic obstructive pulmonary dise ase) with chronic bronchitis J44.9 and Chronic obstructive pulmonary disease, unspecified COPD type J44.9 [facility] [address] [id number], [place] 411677[address] Oct, Benign essential hypertension I10 and Ne ck pain M54.[address] [id number], [place] 7798319[address] Sep, PAD (peripheral artery disease) I73.9 ; Claudication of both lower extremities I73.9 ; Bilateral carotid artery disease I77.9 ; Benign essential hypertension I10 ; Hyperlipemia E78.5 and Dyspnea on exertion R06.09 [facility] [address] [facility] [address] [id number], [place] [address]84[address] Aug, Benign essential hypertension I10 ; Vannessa roesophageal reflux disease without esophagitis K21.9 and Cervical radiculopathy M54.12 [facility] [address] [id number] [place] [address] Aug, Gastroesophageal reflux disease without esophagitis K21.[address] [facility] [address] [id number], [place] 084067086 Aug, COPD (chronic obstructive pulmonary dise ase) with chronic bronchitis J44.9 [facility] [address] [id number], [place] [id number] Jul, [facility] [address] [id number], [place] 754845802 Jul, Benign essential hypertension I10 [facility] [address] [id number], [place] 310145160 Jul, [facility] [address] [id number], [place] 151945871 Jul, COPD (chronic obstructive pulmonary dise ase) with chronic bronchitis J44.9 [facility] [address] [id number], [place] 957742987 Jul, Neck pain M54.2 [facility] [address] [id number], [place] 060184496 Jun, Claudication of both lower extremities I 73.9 ; PAD (peripheral artery disease) I73.9 ; Bilateral carotid artery disease I77.9 ; CAD (coronary artery disease) I25.10 ; Tobacco abuse Z72.0 ; Benign essential hypertension I10 ; Hyperlipemia E78.5 and Non-rheumatic mitral valve stenosis I34.2 [facility] [address] [id number], [place] 523837644 Jun, Chronic obstructive pulmonary disease, u nspecified COPD type J44.[address] [facility] [address] [id number], [place] 804746077 May, [facility] [address] [id number], [place] 968918572 May, Chronic obstructive pulmonary disease, u nspecified COPD type J44.9 [facility] [address] [id number] [place] 0007[address] May, Neck pain M54.2 ; Chronic obstructive pu lmonary disease, unspecified COPD type J44.9 and Cervical radiculopathy M54.[address] [facility] [address] [id number] [place] 2963[address] May, [facility] [address] [id number] [place] 4906232[address] Apr, [facility] [address] [id number] [place] 991399497 Apr, Gastroesophageal reflux disease without esophagitis K21.[address] [facility] [address] [id number] [place] 621373677 Apr, COPD (chronic obstructive pulmonary dise ase) with chronic bronchitis J44.9 [facility] [address] [id number] [place] 51927[address]19 Apr, [facility] [address] [id number], [place] 598569832 Apr, [facility] [address] [id number], [place] 566819858 Apr, COPD (chronic obstructive pulmonary dise ase) with chronic bronchitis J44.9 ; Benign essential hypertension I10 ; Tobacco abuse counseling Z71.6 and Hyperlipemia E78.[address] [facility] [address] [id number] [place] 498453475 February, COPD (chronic obstructive pulmonary dise ase) with chronic bronchitis J44.9 [facility] [address] [id number] [place] 962020748 Jan, [facility] [address] [id number], [place] 616591141 Jan, COPD (chronic obstructive pulmonary dise ase) with chronic bronchitis J44.9 [facility] [address] [id number] [place] 101204361 Oct, COPD (chronic obstructive pulmonary dise ase) with chronic bronchitis J44.9 [facility] [address] [id number], [place] 240158325 Oct, Winter itch L29.8 [facility] [id number], [place] 188977925 Oct, COPD (chronic obstructive pulmonary dise ase) with chronic bronchitis J44.9 ; Benign essential hypertension I10 ; Tobacco abuse Z72.0 and Gastroesophageal reflux disease without esophagitis K21.9 [facility] [id number], [place] 254495498 Sep, Benign essential hypertension I10 [address] [id number], [place] [id number] Aug, [facility] [id number], [place] 278495404 Jul, [facility] [id number], [place] 616421748 Apr, [facility] [id number], [place] 750572919 Apr, Abdominal bloating R14.0 ; Fatty liver K 76.0 ; Diverticulosis of intestine without bleeding, unspecified intestinal tract location K57.90 ; Chronic obstructive pulmonary disease, unspecified COPD type J44.9 and Benign essential hypertension I10 [facility] [id number], [place] 748673089 Apr, Mild early onset dysthymic disorder, in partial remission, with melancholic features, 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 [facility] [id number], [place] 077748125 Mar, Abdominal muscle strain, initial encount er S39.011A [facility] [id number], [place] 294821407 Jan, Pancreatitis K85.9 ; Abdominal bloating R14.0 ; Chronic bronchitis J42 and Chronic pain G89.29 [facility] [id number], [place] 025834384 Nov, [facility] [address] [id number], [place] [id number] Nov, [facility] [address] [id number], [place] 858683128 Nov, Chronic bronchitis J42 ; Tobacco abuse Z 72.0 and Tobacco abuse counseling Z71.6 [facility] [address] [id number], [place] 146401971 Oct, [facility] [address] [id number], [place] 739780276 Oct, Chronic bronchitis J42 ; Tobacco abuse Z 72.0 and Benign essential hypertension I10 [facility] [address] [id number], [place] 076119316 Oct, Chronic bronchitis J42 ; Tobacco abuse Z 72.0 ; Tobacco abuse counseling Z71.6 ; Benign essential hypertension I10 and Hyperlipemia E78.5 [facility] [address] [facility] [id number] [address] [place] [address] Sep, [facility] [address] [id number], [place] [id number] Jul, [facility] [address] [facility] [id number] [address] [place] [address] Jul, Essential (primary) hyperten aida I10 [facility] [address] [facility] [id number] [address] [place] [address] Jul, [facility] [address] [id number], [place] 844842855 Jul, [facility] [address] [id number], [place] 580737174 Jun, Benign essential hypertension 401.1 ; Ge neralized edema 782.3 ; Chronic pain 338.29 and Hyperlipemia 272.4 [facility] [address] [id number], [place] 648927938 May, Upper respiratory infection 465.9 and Co ugh 786.2 [facility] [address] [facility] [address] [id number], [place] [id number] Mar, Upper respiratory infection 465.9 ; 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 and Cough 786.2 [facility] [address] [facility] [address] [id number], [place] [id number] February, [facility] [address] [facility] [address] [id number], [place] 845258029 February, Status post bilateral carotid endarterec vito V45.89 ; CAD (coronary artery disease) 414.00 ; Benign essential hypertension 401.1 ; Hyperlipemia 272.4 ; Tobacco abuse 305.1 ; Tobacco abuse counseling V65.42 and Chronic bronchitis 491.9 [facility] [address] [facility] [id number] [address] [place] [address] Jan, [facility] [address] [place] [id number] [place] [address] Jan, [facility] [address] [facility] [id number] [address] [place] [address] Dec, [facility] [address] [place] [id number] [address] [place] [address] Dec, [facility] [address] [place] [id number] [address] [place] [address] Nov, [facility] [address] [facility] [id number] [address] [place] [address] Nov, [facility] [address] [facility] [id number] [address] [place] [address] Nov, [facility] [address] [facility] [id number] [address] [place] [address] Nov, [facility] [address] [facility] [id number] [address] [place] [address] Nov, [facility] [address] [place] [id number] [address] [place] [address] Nov, [facility] [address] [id number] [address] [place] [address], [place] [address] Nov, [facility] [address] [id number] [address] [place] [address], [place] [address] Nov, [facility] [address] [id number] [address] [place] [address], [place] [address] Nov, [facility] [address] [id number] [address] [place] [address] Oct, [facility] [address] [id number] [address] [place] [address], [place] [address] Oct, [facility] [address] [id number] [address] [place] [address], [place] [address] Oct, [facility] [address] [id number] [address] [place] [address] Oct, [facility] [address] [id number] [address] [place] [address], [place] [address] Oct, [facility] [address] [id number] [address] [place] [phone] Oct, [facility] [address] [id number] [address] [place] [phone] Oct, [facility] [address] [id number] [address] [place] [phone] Oct, [facility] [address] [id number] [address] [place] [address] Oct, [facility] [address] [id number] [address] [place] [address] Oct, [facility] [place] [address] [id number] [place] [id number] Oct, [facility] [address] [id number] [address] [place] [address] Oct, [facility] [address] [id number] [address] [place] [address], [place] [address] Sep, [facility] [address] [id number] [address] [place] [address], [place] [address] Sep, [facility] [address] [id number] [address] [place] [address], [place] [address] Aug, [facility] [address] [id number] [address] [place] [address], [place] [address] Aug, [facility] [address] [id number] [address] [place] [address], [place] [address] Aug, [facility] [address] [id number] [address] [place] [address], [place] [address] Aug, [facility] [address] [id number] [address] [place] [address], [place] [address] Jul, [facility] [address] [id number] [address] [place] [address], [place] [address] Jul, [facility] [address] [id number] [address] [place] [address], [place] [address] Jun, [facility] [address] [id number] [address] [place] [address], [place] [address] Jun, [facility] [address] [id number] [address] [place] [address], [place] [address] May, [facility] [address] [id number] [address] [place] [address], [place] [address] May, [facility] [address] [id number] [address] [place] [address], [place] [address] May, [facility] [address] [id number] [address] [place] [address], [place] [address] May, [facility] [address] [id number] [address] [place] [address], [place] [address] Jan, [facility] [address] [id number] [address] [place] [address], [place] [address] Jan, [facility] [address] [id number] [address] [place] [address], [place] [address] Nov, [facility] [address] [id number] [address] [place] [address], [place] [address] Nov, [facility] [address] [id number] [address] [place] [address], [place] [address] Nov, [facility] [address] [id number] [address] [place] [address], [place] [address] Nov, [facility] [address] [id number] [address] [place] [address], [place] [address] Nov, [facility] [address] [id number] [address] [place] [address], [place] [address] Nov, [facility] [address] [id number] [address] [place] [address], [place] [address] Nov, [facility] [address] [id number] [address] [place] [address], [place] [address] Nov, [facility] [address] [id number] [address] [place] [address], [place] [address] Nov, [facility] [address] [id number] [address] [place] [address], [place] [address] Nov, [facility] [address] [id number] [address] [place] [address], [place] [address] Oct, [facility] [address] [id number] [address] [place] [address], [place] [address] Oct, [facility] [address] [id number] [address] [place] [address], [place] [address] Oct, [facility] [address] [id number] [address] [place] [address], [place] [address] Oct, [facility] [address] [id number] [address] [place] [address], [place] [address] Sep, [facility] [address] [id number] [address] [place] [address], [place] [address] Sep, [facility] [address] [id number] [address] [place] [address], [place] [address] Aug, [facility] [address] [id number] [address] [place] [address], [place] [address] Aug, [facility] [address] [id number] [address] [place] [address], [place] [address] Aug, [facility] [address] [id number] [address] [place] [address], [place] [address] Aug, [facility] [address] [id number] [address] [place] [address], [place] [address] Aug, [facility] [address] [id number] [address] [place] [address], [place] [address] Aug, [facility] [address] [id number] [address] [place] [address], [place] [address] Aug, [facility] [address] [id number] [address] [place] [address], [place] [address] Aug, [facility] [address] [id number] [address] [place] [address], [place] [address] Jul, [facility] [address] [id number] [address] [place] [address], [place] [address] Jul, [facility] [address] [id number] [address] [place] [address], [place] [address] Jul, [facility] [address] [id number] [address] [place] [address], [place] [address] Jul, [facility] [address] [id number] [address] [place] [address], [place] [address] Jul, [facility] [address] [id number] [address] [place] [address], [place] [address] Jun, [facility] [address] [id number] [address] [place] [address], [place] [address] May, [facility] [address] [id number] [address] [place] [phone] Apr, [facility] [address] [id number] [address] [place] [phone] February, [facility] [address] [id number] [address] [place] [id number] Jan, [facility] [address] [id number] [address] [place] [phone] Jan, [facility] [address] [id number] [address] [place] [phone] Dec, [facility] [address] [id number] [address] [place] [phone] Dec, [facility] [address] [id number] [address] [place] [phone] Dec, [facility] [address] [id number] [address] [place] [phone] Nov, [facility] [address] [id number] [address] [place] [phone] Nov, [facility] [address] [id number] [address] [place] [phone] Nov, [facility] [address] [id number] [address] [place] [phone] Nov, IMMUNIZATIONS No Known Immunizations SOCIAL HISTORY Never Assessed REASON FOR VISIT labs per Dr. Power PLAN OF CARE VITAL SIGNS MEDICATIONS Unknown [...] 02/[address] [facility] [place] [facility], LV function,-minimal RCA blockage <20% 1996 [facility], mild nonspecific bulbar duodenitis 1996 [facility] Heart cath with PTCA 2013 Surgical History Colonoscopy- tubular adenoma , hyperplastic polyp- repeat Colonoscopy 12/2016 Surgical History Bypass Surgery- CABG and Pacemaker 06/06 Hospitalization History heart attack 1996 Hospitalization History slurred speech, fever, left arm pain Sharifa Shah February 2015 Hospitalization History Pancreatitis 12/2015 Hospitalization History CABG 05/2018
--- OUTSIDE RECORDS SUMMARY | 2020-04-06 06:57 | XMS REPORT ---
Author Author Jermaine CAMPOS Organization [facility][1] Address [address] [place] [address] Care Team Providers Care Cellar Pumper Name Role Phone TIFFANIE CAMPOS Unavailable PROBLEMS Type Condition ICD9-CM Code BNA64-IS Code Onset Dates Condition S tatus SNOMED Code Problem PAD (peripheral artery disease) I73.9 Active 362293411 Problem Mixed hyperlipidemia E78.2 Active 777013044 Problem Chronic obstructive pulmonary disease, unspecified COPD ty pe J44.9 Active 35147781 Problem Other chronic pain G89.29 Active 8 6902597 Problem Benign essential hypertension I10 Active 4920455 Problem New onset type 2 diabetes mellitus E11.9 Active 50257175 Problem Chronic bronchitis J42 Active 6 6807126 Problem Hyperlipemia E78.5 Active 5302531 4 Problem Peripheral arterial disease I73.9 Ac tive 448496997 Problem Claudication I73.9 Active 6891862 6 Problem S/P cardiac pacemaker procedure Z95.0 Active 718752186 Problem Non-rheumatic mitral regurgitation I34.0 Active 067476975 Problem Chronic pain G89.29 Active 0880350 1 Problem Diverticulosis of intestine without bleeding, unspecified intestinal tract location K57.90 Active 14810714 Problem Tobacco abuse Z72.0 Active 231374 05 Problem CAD (coronary artery disease) I25.10 Active 83154820 Problem COPD (chronic obstructive pulmonary disease) wit h chronic bronchitis J44.9 Active 745754073 Problem Gastroesophageal reflux disease without esophagitis K21.9 Active 575411374 Problem Abdominal bloating R14.0 Active 1 32285087 Problem Bilateral carotid artery disease I77.9 Active 081775499 Problem Fatty liver K76.0 Active 27942390 7 Problem Claudication of both lower extremities I73.9 Active 160499052 ALLERGIES No Information ENCOUNTERS Encounter Location Date Diagnosis [facility][1] [address] [facility] [id number] [id number] Jun, CAD (coronary artery disease) I25.10 and Hyperlipemia E78.[address] [address] [id number] [address]01877884 Jun, New onset type 2 diabetes mellitus E11.9 ; S/P CABG (coronary artery bypass graft) Z95.1 ; Benign essential hypertension I10 ; Other chronic pain G89.29 and S/P cardiac pacemaker procedure Z95.[address] [facility] [address] [id number], [place] [id number] Jun, [facility] [id number], [place] [id number] May, [facility] [id number], [place] [address]35558[address] May, COPD (chronic obstructive pulmonary dise ase) with chronic bronchitis J44.9 ; Tobacco abuse Z72.0 and Tobacco abuse counseling Z71.[address] [facility] [address] [id number], [place] [address] Apr, CAD (coronary artery disease) I25.[address] [facility] [address] [id number], [place] [id number] Mar, Peripheral arterial disease I73.[address] [facility] [address] [id number], [place] 975825892 February, Chronic pain G89.29 ; Hyperlipemia E78.5 and Benign essential hypertension I10 [facility] [address] [id number], [place] [address]974867 Jan, COPD (chronic obstructive pulmonary dise ase) with chronic bronchitis J44.9 [facility] [address] [id number], [place] [address]19398[address] Jan, [facility] [address] [id number], [place] 423611331 Jan, Peripheral arterial disease I73.9 ; Carlo gn essential hypertension I10 ; Bilateral carotid artery disease I77.9 ; Claudication of both lower extremities I73.9 ; Mixed hyperlipidemia E78.2 ; Tobacco use Z72.0 and Non- rheumatic mitral regurgitation I34.0 [facility] [address] [id number] [place] [address] Jan, RUQ pain R10.11 ; Gastroesophageal reflu x disease without esophagitis K21.9 and Change in stool R19.5 [facility] [address] [address] [id number], [place] 477[address]82[address] Jan, [facility] [address] [id number], [place] [id number] Jan, Neck pain M54.2 ; Benign essential hyper tension I10 ; COPD (chronic obstructive pulmonary disease) with chronic bronchitis J44.9 and Chronic obstructive pulmonary disease, unspecified COPD type J44.9 [facility] [address] [id number], [place] 760533242 Jan, Chronic obstructive pulmonary disease, u nspecified COPD type J44.9 [facility] [address] [id number], [place] 8756087[address] Dec, [facility] [address] [address] [id number], [place] 306889634 Dec, [facility] [address] [id number], [place] 799309[address] Dec, COPD (chronic obstructive pulmonary dise ase) with chronic bronchitis J44.9 [facility] [address] [facility] [id number] [address] [place] [address] Dec, [facility] [address] [facility] [id number] [address] [place] [address] Dec, [facility] [address] [address] [id number], [place] [id number] Nov, [facility] [address] [id number], [place] 333685634 Nov, Benign essential hypertension I10 and CO PD (chronic obstructive pulmonary disease) with chronic bronchitis J44.9 [facility] [address] [address] [id number] [place] [id number] Nov, Hyperlipemia E78.5 ; Benign essential hy pertension I10 ; COPD (chronic obstructive pulmonary disease) with chronic bronchitis J44.9 ; Encounter for immunization Z23 ; Gastroesophageal reflux disease without esophagitis K21.9 and Chronic pain G89.29 [facility] [address] [place] [address] AVE [id number] [place] 300699211 Oct, COPD (chronic obstructive pulmonary dise ase) with chronic bronchitis J44.9 and Chronic obstructive pulmonary disease, unspecified COPD type J44.9 [facility] [address] [place] [address] AVE [id number] [place] [id number] Oct, COPD (chronic obstructive pulmonary dise ase) with chronic bronchitis J44.9 and Chronic obstructive pulmonary disease, unspecified COPD type J44.9 [facility] [address] [place] [address] AVE [id number] [place] [id number] Oct, COPD (chronic obstructive pulmonary dise ase) with chronic bronchitis J44.9 and Chronic obstructive pulmonary disease, unspecified COPD type J44.9 [facility] [address] [place] [address] AVE [id number], [place] [id number] Oct, Benign essential hypertension I10 and Ne ck pain M54.2 [facility] [address] [place] [address] AVE [id number], [place] 603504612 Sep, PAD (peripheral artery disease) I73.9 ; Claudication of both lower extremities I73.9 ; Bilateral carotid artery disease I77.9 ; Benign essential hypertension I10 ; Hyperlipemia E78.5 and Dyspnea on exertion R06.09 [facility] [address] [address] [address] [id number], [place] 324220213 Aug, Benign essential hypertension I10 ; Vannessa roesophageal reflux disease without esophagitis K21.9 and Cervical radiculopathy M54.[address] [facility] [address] [id number] [place] [address] Aug, Gastroesophageal reflux disease without esophagitis K21.[address] [facility] [address] [address] [id number] [place] 914250093 Aug, COPD (chronic obstructive pulmonary dise ase) with chronic bronchitis J44.9 [facility] [address] [id number] [place] [id number] Jul, [facility] [address] [id number], [place] 549888839 Jul, Benign essential hypertension I10 [facility] [address] [address] [id number], [place] 557691414 Jul, [facility] [address] [id number], [place] 665955390 Jul, COPD (chronic obstructive pulmonary dise ase) with chronic bronchitis J44.9 [facility] [address] [id number], [place] 536614836 Jul, Neck pain M54.2 [facility] [address] [id number], [place] 018212615 Jun, Claudication of both lower extremities I 73.9 ; PAD (peripheral artery disease) I73.9 ; Bilateral carotid artery disease I77.9 ; CAD (coronary artery disease) I25.10 ; Tobacco abuse Z72.0 ; Benign essential hypertension I10 ; Hyperlipemia E78.5 and Non-rheumatic mitral valve stenosis I34.2 [facility] [address] [id number], [place] 811496847 Jun, Chronic obstructive pulmonary disease, u nspecified COPD type J44.9 [facility] [address] [id number], [place] 236238977 May, [facility] [address] [id number], [place] 123803141 May, Chronic obstructive pulmonary disease, u nspecified COPD type J44.9 [facility] [address] [id number], [place] 713384713 May, Neck pain M54.2 ; Chronic obstructive pu lmonary disease, unspecified COPD type J44.9 and Cervical radiculopathy M54.[address] [facility] [address] [address] [id number], [place] [id number] May, [facility] [address] [id number] [place] [id number] Apr, [facility] [address] [address] [id number], [place] 475956416 Apr, Gastroesophageal reflux disease without esophagitis K21.[address] [facility] [address] [id number], [place] 797818358 Apr, COPD (chronic obstructive pulmonary dise ase) with chronic bronchitis J44.[address] [facility] [address] [id number], [place] 633085198 Apr, [facility] [address] [id number], [place] 708903375 Apr, [facility] [address] [id number], [place] [id number] Apr, COPD (chronic obstructive pulmonary dise ase) with chronic bronchitis J44.9 ; Benign essential hypertension I10 ; Tobacco abuse counseling Z71.6 and Hyperlipemia E78.[address] [facility] [address] [id number], [place] 611510043 February, COPD (chronic obstructive pulmonary dise ase) with chronic bronchitis J44.[address] [facility] [address] [id number], [place] 565361063 Jan, [facility] [address] [id number], [place] [id number] Jan, COPD (chronic obstructive pulmonary dise ase) with chronic bronchitis J44.[address] [facility] [address] [id number], [place] 470242845 Oct, COPD (chronic obstructive pulmonary dise ase) with chronic bronchitis J44.[address] [facility] [address] [id number], [place] 784117938 Oct, Winter itch L29.[address] [facility] [address] [id number], [place] 054912242 Oct, COPD (chronic obstructive pulmonary dise ase) with chronic bronchitis J44.9 ; Benign essential hypertension I10 ; Tobacco abuse Z72.0 and Gastroesophageal reflux disease without esophagitis K21.[address] [id number], [place] 731759027 Sep, Benign essential hypertension I10 [facility] [address] [id number], [place] 027904815 Aug, [facility] [address] [id number], [place] 165737097 Jul, [facility] [address] [id number], [place] 548444214 Apr, [facility] [address] [id number], [place] 734068341 Apr, Abdominal bloating R14.0 ; Fatty liver K 76.0 ; Diverticulosis of intestine without bleeding, unspecified intestinal tract location K57.90 ; Chronic obstructive pulmonary disease, unspecified COPD type J44.9 and Benign essential hypertension I10 [facility] [id number], [place] 752922147 Apr, Mild early onset dysthymic disorder, in partial remission, with melancholic features, 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 [facility] [address] [id number], [place] 905626598 Mar, Abdominal muscle strain, initial encount er S39.011A [facility] [address] [id number], [place] 738924917 Jan, Pancreatitis K85.9 ; Abdominal bloating R14.0 ; Chronic bronchitis J42 and Chronic pain G89.29 [facility] [address] [id number], [place] 148006980 Nov, [facility] [id number], [place] [id number] Nov, [facility] [address] [id number], [place] [id number] Nov, Chronic bronchitis J42 ; Tobacco abuse Z 72.0 and Tobacco abuse counseling Z71.6 [facility] [address] [address] [id number], [place] 771542976 Oct, [facility] [address] [facility] [address] [id number], [place] 714036682 Oct, Chronic bronchitis J42 ; Tobacco abuse Z 72.0 and Benign essential hypertension I10 [facility] [address] [facility] [address] [id number], [place] [id number] Oct, Chronic bronchitis J42 ; Tobacco abuse Z 72.0 ; Tobacco abuse counseling Z71.6 ; Benign essential hypertension I10 and Hyperlipemia E78.5 [facility] [address] [facility] [id number] [address] [place] [address] Sep, [facility] [address] [id number], [place] [id number] Jul, [facility] [address] [place] [id number] [address] [place] [address] Jul, Essential (primary) hyperten aida I10 [facility] [address] [facility] [id number] [address] [place] [address] Jul, [facility] [address] [facility] [address] [id number], [place] [id number] Jul, [facility] [address] [place] [address] AVE [id number], [place] 829585972 Jun, Benign essential hypertension 401.1 ; Ge neralized edema 782.3 ; Chronic pain 338.29 and Hyperlipemia 272.4 [facility] [address] [id number], [place] 386246454 May, Upper respiratory infection 465.9 and Co ugh 786.2 [facility] [address] [place] [address] AVE [id number], [place] [id number] Mar, Upper respiratory infection 465.9 ; Toba tobacco drummer abuse 305.1 and Cough 786.2 [facility] [address] [id number], [place] [id number] February, [facility] [address] [id number], [place] [id number] February, Status post bilateral carotid endarterec vito V45.89 ; CAD (coronary artery disease) 414.00 ; Benign essential hypertension 401.1 ; Hyperlipemia 272.4 ; Tobacco abuse 305.1 ; Tobacco abuse counseling V65.42 and Chronic bronchitis 491.9 [facility] [address] [facility] [id number] [address] [place] [address] Jan, [facility] [address] [facility] [id number] [address] [place] [address] Jan, [facility] [address] [facility] [id number] [address] [place] [address] Dec, [facility] [address] [facility] [id number] [address] [place] [address] Dec, [facility] [address] [facility] [id number] [address] [place] [address] Nov, [facility] [address] [facility] [id number] [address] [place] [address] Nov, [facility] [address] [facility] [id number] [address] [place] [address] Nov, [facility] [address] [facility] [id number] [address] [place] [address] Nov, [facility] [address] [facility] [id number] [address] [place] [address] Nov, [facility] [address] [facility] [id number] [address] [place] [address] Nov, [facility] [address] [facility] [id number] [address] [place] [address] Nov, [facility] [address] [id number] [address] [place] [address], [place] [address] Nov, [facility] [address] [id number] [address] [place] [address], [place] [address] Nov, [facility] [address] [id number] [address] [place] [address], [place] [address] Oct, [facility] [address] [id number] [address] [place] [address], [place] [address] Oct, [facility] [address] [id number] [address] [place] [address], [place] [address] Oct, [facility] [address] [id number] [address] [place] [address], [place] [address] Oct, [facility] [address] [id number] [address] [place] [address], [place] [address] Oct, [facility] [address] [id number] [address] [place] [address], [place] [address] Oct, [facility] [address] [id number] [address] [place] [address], [place] [address] Oct, [facility] [address] [id number] [address] [place] [address], [place] [address] Oct, [facility] [address] [id number] [address] [place] [address], [place] [address] Oct, [facility] [address] [id number] [address] [place] [address], [place] [address] Oct, [facility] [address] [id number] [place] [id number] Oct, [facility] [address] [id number] [address] [place] [address], [place] [address] Oct, [facility] [address] [id number] [address] [place] [address], [place] [address] Sep, [facility] [address] [id number] [address] [place] [address], [place] [address] Sep, [facility] [address] [id number] [address] [place] [address], [place] [address] Aug, [facility] [address] [id number] [address] [place] [address], [place] [address] Aug, [facility] [address] [id number] [address] [place] [address], [place] [address] Aug, [facility] [address] [id number] [address] [place] [address], [place] [address] Aug, [facility] [address] [id number] [address] [place] [address], [place] [address] Jul, [facility] [address] [id number] [address] [place] [address], [place] [address] Jul, [facility] [address] [id number] [address] [place] [address], [place] [address] Jun, [facility] [address] [id number] [address] [place] [address], [place] [address] Jun, [facility] [address] [id number] [address] [place] [address], [place] [address] May, [facility] [address] [id number] [address] [place] [address], [place] [address] May, [facility] [address] [id number] [address] [place] [address], [place] [address] May, [facility] [address] [id number] [address] [place] [address] May, [facility] [address] [id number] [address] [place] [address], [place] [address] Jan, [facility] [address] [id number] [address] [place] [address], [place] [address] Jan, [facility] [address] [id number] [address] [place] [address], [place] [address] Nov, [facility] [address] [id number] [address] [place] [address] Nov, [facility] [address] [id number] [address] [place] [address], [place] [address] Nov, [facility] [address] [id number] [address] [place] [address], [place] [address] Nov, [facility] [address] [id number] [address] [place] [address], [place] [address] Nov, [facility] [address] [id number] [address] [place] [address], [place] [address] Nov, [facility] [address] [id number] [address] [place] [address], [place] [address] Nov, [facility] [address] [id number] [address] [place] [address], [place] [address] Nov, [facility] [address] [id number] [address] [place] [address], [place] [address] Nov, [facility] [address] [id number] [address] [place] [address], [place] [address] Nov, [facility] [address] [id number] [address] [place] [address], [place] [address] Oct, [facility] [address] [id number] [address] [place] [address], [place] [address] Oct, [facility] [address] [id number] [address] [place] [address], [place] [address] Oct, [facility] [address] [id number] [address] [place] [address], [place] [address] Oct, [facility] [address] [id number] [address] [place] [address], [place] [address] Sep, [facility] [address] [id number] [address] [place] [address], [place] [address] Sep, [facility] [address] [id number] [address] [place] [address], [place] [address] Aug, [facility] [address] [id number] [address] [place] [address], [place] [address] Aug, [facility] [address] [id number] [address] [place] [address], [place] [address] Aug, [facility] [address] [id number] [address] [place] [address], [place] [address] Aug, [facility] [address] [id number] [address] [place] [address], [place] [address] Aug, [facility] [address] [id number] [address] [place] [address], [place] [address] Aug, [facility] [address] [id number] [address] [place] [address], [place] [address] Aug, [facility] [address] [id number] [address] [place] [address], [place] [address] Aug, [facility] [address] [id number] [address] [place] [address], [place] [address] Jul, [facility] [address] [id number] [address] [place] [address], [place] [address] Jul, [facility] [address] [id number] [address] [place] [address], [place] [address] Jul, [facility] [address] [id number] [address] [place] [address], [place] [address] Jul, [facility] [address] [id number] [address] [place] [address], [place] [address] Jul, [facility] [address] [id number] [address] [place] [address], [place] [address] Jun, [facility] [address] [id number] [address] [place] [address], [place] [address] May, [facility] [address] [id number] [address] [place] [address], [place] [address] Apr, [facility] [address] [id number] [address] [place] [id number] February, [facility] [address] [id number] [address] [place] [id number] Jan, [facility] [address] [facility] [id number] [address] [place] [id number] Jan, [facility] [address] [facility] [id number] [address] [place] [id number] Dec, [facility] [facility] [address] [facility] [id number] [address] [place] [phone] Dec, [facility] [address] [facility] [id number] [address] [place] [phone] Dec, [facility] [address] [facility] [id number] [address] [place] [phone] Nov, [facility] [address] [facility] [id number] [address] [place] [phone] Nov, [facility] [address] [facility] [id number] [address] [place] [phone] Nov, [facility] [address] [facility] [id number] [address] [place] [phone] Nov, IMMUNIZATIONS No Known Immunizations SOCIAL HISTORY Never Assessed REASON FOR VISIT FY/Requests Return call PLAN OF CARE VITAL SIGNS MEDICATIONS Unknown Medications RESULTS No Results PROCEDURES No Known procedures INSTRUCTIONS MEDICATIONS ADMINISTERED No Known Medications MEDICAL (GENERAL) HISTORY Type Description Date Medical History GERD Medical History hypertension Medical History 1999 mild stroke syndrome- C T head 02/2015 showed chronic ischemic changes Medical History chronic neck and back pain Medical History CA x's 2 1996 and 2011 Medical History [...] 02/[address] [facility], LV function,-minimal RCA blockage <20% 1996 Surgical History EGD-Dr.Makdisi BensonByrd-mild erosive esophagitis, mild nonspecific bulbar duodenitis 1996 Surgical History carotid endarterectomy, right- [facility] 01/14 015 Surgical History Heart cath with PTCA 2013 Surgical History Colonoscopy- tubular adenoma , hyperplastic polyp- repeat Colonoscopy 12/2016 Surgical History Bypass Surgery- CABG and Pacemaker 06/06 Hospitalization History heart attack 1996 Hospitalization History slurred speech, fever, left arm pain [facility] [place] February 2015 Hospitalization History Pancreatitis 12/2015 Hospitalization History CABG 05/2018
--- OUTSIDE RECORDS SUMMARY | 2020-04-06 06:58 | XMS REPORT ---
Author Author Jermaine CAMPOS Organization [facility] Address [address] [place] [address] Care Team Providers Care Dental Sales Representative Name Role Phone TIFFANIE CAMPOS Unavailable PROBLEMS Type Condition ICD9-CM Code TMB14-BW Code Onset Dates Condition S tatus SNOMED Code Problem PAD (peripheral artery disease) I73.9 Active 709981314 Problem Mixed hyperlipidemia E78.2 Active 868080486 Problem Chronic obstructive pulmonary disease, unspecified COPD ty pe J44.9 Active 93196323 Problem Other chronic pain G89.29 Active 8 6842395 Problem Benign essential hypertension I10 Active 4997031 Problem New onset type 2 diabetes mellitus E11.9 Active 22969283 Problem Chronic bronchitis J42 Active 6 2374200 Problem Hyperlipemia E78.5 Active 6547575 4 Problem Peripheral arterial disease I73.9 Ac tive 271398165 Problem Claudication I73.9 Active 8796826 6 Problem S/P cardiac pacemaker procedure Z95.0 Active 031259998 Problem Non-rheumatic mitral regurgitation I34.0 Active 377846988 Problem Chronic pain G89.29 Active 2198268 1 Problem Diverticulosis of intestine without bleeding, unspecified intestinal tract location K57.90 Active 03400463 Problem Tobacco abuse Z72.0 Active 137790 05 Problem CAD (coronary artery disease) I25.10 Active 10537372 Problem COPD (chronic obstructive pulmonary disease) wit h chronic bronchitis J44.9 Active 699775752 Problem Gastroesophageal reflux disease without esophagitis K21.9 Active 251616152 Problem Abdominal bloating R14.0 Active 1 51635798 Problem Bilateral carotid artery disease I77.9 Active 165431268 Problem Fatty liver K76.0 Active 28467322 7 Problem Claudication of both lower extremities I73.9 Active 358143017 ALLERGIES No Information ENCOUNTERS Encounter Location Date Diagnosis [facility] [address] [facility] [id number] [id number] Jun, New onset type 2 diabetes mellitus E11.9 ; S/P CABG (coronary artery bypass graft) Z95.1 ; Benign essential hypertension I10 ; Other chronic pain G89.29 and S/P cardiac pacemaker procedure Z95.0 [facility] [id number] [place] [id number] Jun, [facility] [id number] [place] [id number] May, [facility] [id number] [place] [id number] May, COPD (chronic obstructive pulmonary dise ase) with chronic bronchitis J44.9 ; Tobacco abuse Z72.0 and Tobacco abuse counseling Z71.6 [facility] [id number] [place] [id number] Apr, CAD (coronary artery disease) I25.10 [facility] Inc.[address] [place] [address] AVE [id number] [place] [id number] Mar, Peripheral arterial disease I73.9 [facility] Inc[facility] [place] [address] AVE [id number] [place] [id number] February, Chronic pain G89.29 ; Hyperlipemia E78.5 and Benign essential hypertension I10 [facility] [id number] [place] [id number] Jan, COPD (chronic obstructive pulmonary dise ase) with chronic bronchitis J44.9 [facility] [id number] [place] [id number] Jan, [facility] [place] [address] AVE [id number] [place] [id number] Jan, Peripheral arterial disease I73.9 ; Carlo gn essential hypertension I10 ; Bilateral carotid artery disease I77.9 ; Claudication of both lower extremities I73.9 ; Mixed hyperlipidemia E78.2 ; Tobacco use Z72.0 and Non- rheumatic mitral regurgitation I34.0 [facility] [address] [id number] [place] [id number] Jan, RUQ pain R10.11 ; Gastroesophageal reflu x disease without esophagitis K21.9 and Change in stool R19.5 [facility] Inc[address] [id number] [place] [address] Jan, [facility] [id number] [place] [address] Jan, Neck pain M54.2 ; Benign essential hyper tension I10 ; COPD (chronic obstructive pulmonary disease) with chronic bronchitis J44.9 and Chronic obstructive pulmonary disease, unspecified COPD type J44.9 [facility]DoubleUp[facility] [address] [id number] [place] [id number] Jan, Chronic obstructive pulmonary disease, u nspecified COPD type J44.9 [facility] [id number] [place] [address] Dec, [facility] [id number] [place] [id number] Dec, [facility] [id number] [place] [id number] Dec, COPD (chronic obstructive pulmonary dise ase) with chronic bronchitis J44.9 [facility] [address] [facility] [id number] [address] [place] [address] Dec, [facility] [address] [facility] [id number] [address] [place] [address] Dec, [facility] [id number] [place] [id number] Nov, [facility] [id number] [place] [id number] Nov, Benign essential hypertension I10 and CO PD (chronic obstructive pulmonary disease) with chronic bronchitis J44.9 [facility] Inc[address] [id number] [place] [id number] Nov, Hyperlipemia E78.5 ; Benign essential hy pertension I10 ; COPD (chronic obstructive pulmonary disease) with chronic bronchitis J44.9 ; Encounter for immunization Z23 ; Gastroesophageal reflux disease without esophagitis K21.9 and Chronic pain G89.29 [facility] [address] [id number] [place] [address] Oct, COPD (chronic obstructive pulmonary dise ase) with chronic bronchitis J44.9 and Chronic obstructive pulmonary disease, unspecified COPD type J44.9 [facility]ENTERPaper.[address] [id number] [place] [id number] Oct, COPD (chronic obstructive pulmonary dise ase) with chronic bronchitis J44.9 and Chronic obstructive pulmonary disease, unspecified COPD type J44.9 [facility]ENTERPaper.[address] [id number] [place] [id number] Oct, COPD (chronic obstructive pulmonary dise ase) with chronic bronchitis J44.9 and Chronic obstructive pulmonary disease, unspecified COPD type J44.9 [facility] [id number] [place] [id number] Oct, Benign essential hypertension I10 and Ne ck pain M54.2 [facility] [id number] [place] [address] Sep, PAD (peripheral artery disease) I73.9 ; Claudication of both lower extremities I73.9 ; Bilateral carotid artery disease I77.9 ; Benign essential hypertension I10 ; Hyperlipemia E78.5 and Dyspnea on exertion R06.09 [facility] [id number] [place] [address] Aug, Benign essential hypertension I10 ; Vannessa roesophageal reflux disease without esophagitis K21.9 and Cervical radiculopathy M54.12 [facility] [id number] [place] [id number] Aug, Gastroesophageal reflux disease without esophagitis K21.9 [facility] [address] [id number] [place] [id number] Aug, COPD (chronic obstructive pulmonary dise ase) with chronic bronchitis J44.9 [facility] [address] [id number] [place] [id number] Jul, [facility]IT[facility] [address] [id number] [place] [id number] Jul, Benign essential hypertension I[address] [facility] [address] [id number] [place] [id number] Jul, [facility] [address] [id number] [place] [id number] Jul, COPD (chronic obstructive pulmonary dise ase) with chronic bronchitis J44.9 [facility] [address] [id number] [place] [id number] Jul, Neck pain M54.2 [facility] [address] [id number] [place] [id number] Jun, Claudication of both lower extremities I 73.9 ; PAD (peripheral artery disease) I73.9 ; Bilateral carotid artery disease I77.9 ; CAD (coronary artery disease) I25.10 ; Tobacco abuse Z72.0 ; Benign essential hypertension I10 ; Hyperlipemia E78.5 and Non-rheumatic mitral valve stenosis I34.2 [facility] [address] [id number] [place] [id number] Jun, Chronic obstructive pulmonary disease, u nspecified COPD type J44.9 [facility] [address] [id number] [place] [id number] May, [facility] [address] [id number] [place] [address] May, Chronic obstructive pulmonary disease, u nspecified COPD type J44.9 [facility] [address] [id number] [place] [id number] May, Neck pain M54.2 ; Chronic obstructive pu lmonary disease, unspecified COPD type J44.9 and Cervical radiculopathy M54.[address] [facility] [address] [id number] [place] [id number] May, [facility] [address] [id number] [place] [id number] Apr, [facility] [address] [id number] [place] [id number] Apr, Gastroesophageal reflux disease without esophagitis K21.[address] [facility] [address] [id number] [place] [id number] Apr, COPD (chronic obstructive pulmonary dise ase) with chronic bronchitis J44.[address] [facility] [address] [id number] [place] [id number] Apr, [facility] [address] [id number] [place] [id number] Apr, [facility] [address] [id number] [place] [id number] Apr, COPD (chronic obstructive pulmonary dise ase) with chronic bronchitis J44.9 ; Benign essential hypertension I10 ; Tobacco abuse counseling Z71.6 and Hyperlipemia E78.[address] [facility] [address] [id number] [place] [id number] February, COPD (chronic obstructive pulmonary dise ase) with chronic bronchitis J44.[address] [facility] [address] [id number] [place] [id number] Jan, [facility] [address] [id number] [place] [id number] Jan, COPD (chronic obstructive pulmonary dise ase) with chronic bronchitis J44.[address] [facility] [address] [id number] [place] [id number] Oct, COPD (chronic obstructive pulmonary dise ase) with chronic bronchitis J44.[address] [facility] [address] [id number] [place] [address] Oct, Winter itch L29.[address] [facility] [address] [id number] [place] [address] Oct, COPD (chronic obstructive pulmonary dise ase) with chronic bronchitis J44.9 ; Benign essential hypertension I10 ; Tobacco abuse Z72.0 and Gastroesophageal reflux disease without esophagitis K21.9 [facility]ITALWakie/BudistK [address] [id number] [place] [id number] Sep, Benign essential hypertension I10 [facility]ITALWakie/BudistAv [address] [id number] [place] [id number] Aug, [facility]ENTERDoubleUpWAGNER[address] [id number] [place] [id number] Jul, [facility]ITALT[facility]adiology Holdings Inc.TER [facility] AVE [id number] [place] [id number] Apr, [facility]IT[facility]iology Holdings Inc.[address] [id number] [place] [id number] Apr, Abdominal bloating R14.0 ; Fatty liver K 76.0 ; Diverticulosis of intestine without bleeding, unspecified intestinal tract location K57.90 ; Chronic obstructive pulmonary disease, unspecified COPD type J44.9 and Benign essential hypertension I10 [facility]ITALTeleradiology Holdings Inc.[address] [id number] [place] [id number] Apr, Mild early onset dysthymic disorder, in partial remission, with melancholic features, 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 [facility]ITALTeleradiology Holdings Inc.[address] [id number] [place] [address] Mar, Abdominal muscle strain, initial encount er S39.011A [facility]ITALTeleradiology Holdings Inc.[address] [id number] [place] [id number] Jan, Pancreatitis K85.9 ; Abdominal bloating R14.0 ; Chronic bronchitis J42 and Chronic pain G89.29 [facility] Inc.[address] [id number] [place] [id number] Nov, [facility] Inc.[address] [id number] [place] [id number] Nov, [facility]ENTERDoubleUpWAGNER[address] [id number] [place] [id number] Nov, Chronic bronchitis J42 ; Tobacco abuse Z 72.0 and Tobacco abuse counseling Z71.6 [facility] [address] [id number] [place] [id number] Oct, [facility] [address] [id number] [place] 512[address]84 Oct, Chronic bronchitis J42 ; Tobacco abuse Z 72.0 and Benign essential hypertension I10 [facility] [address] [id number] [place] [id number] Oct, Chronic bronchitis J42 ; Tobacco abuse Z 72.0 ; Tobacco abuse counseling Z71.6 ; Benign essential hypertension I10 and Hyperlipemia E78.5 [facility] [address] [facility] [id number] [address] [place] [address] Sep, [facility] [address] [id number] [place] [id number] Jul, [facility] [address] [facility] [id number] [address] [place] [address] Jul, Essential (primary) hyperten aida I10 [facility] [address] [facility] [id number] [address] [place] [address] Jul, [facility] [address] [id number] [place] [id number] Jul, [facility]ENTERK [address] [id number] [place] [id number] Jun, Benign essential hypertension 401.1 ; Ge neralized edema 782.3 ; Chronic pain 338.29 and Hyperlipemia 272.4 [facility]ENTERK [address] [id number] [place] [id number] May, Upper respiratory infection 465.9 and Co ugh 786.2 [facility]ENTERK [address] [id number] [place] [id number] Mar, Upper respiratory infection 465.9 ; 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 and Cough 786.[address] [facility] [address] [id number] [place] [id number] February, [facility] [id number] [place] [id number] February, Status post bilateral carotid endarterec vito V45.89 ; CAD (coronary artery disease) 414.00 ; Benign essential hypertension 401.1 ; Hyperlipemia 272.4 ; Tobacco abuse 305.1 ; Tobacco abuse counseling V65.42 and Chronic bronchitis 491.9 [facility] [address] [facility] [id number] [address] [place] [address] Jan, [facility] [address] [facility] [id number] [address] [place] [address] Jan, [facility] [address] [facility] [id number] [address] [place] [address] Dec, [facility] [address] [facility] [id number] [address] [place] [address] Dec, [facility] [address] [facility] [id number] [address] [place] [address] Nov, [facility] [address] [facility] [id number] [address] [place] [address] Nov, [facility] [address] [facility] [id number] [address] [place] [address] Nov, [facility] [address] [facility] [id number] [address] [place] [address] Nov, [facility] [address] [facility] [id number] [address] [place] [address] Nov, [facility] [address] [facility] [id number] [address] [place] [address] Nov, [facility] [address] [facility] [id number] [address] [place] [address] Nov, [facility] [address] [facility] [id number] [address] [place] [address] Nov, [facility] [address] [facility] [id number] [address] [place] [address] Nov, [facility] [address] [id number] [address] [place] [address], [place] [address] Oct, [facility] [address] [id number] [address] [place] [address], [place] [address] Oct, [facility] [address] [id number] [address] [place] [address], [place] [address] Oct, [facility] [address] [id number] [address] [place] [address], [place] [address] Oct, [facility] [address] [id number] [address] [place] [address], [place] [address] Oct, [facility] [address] [id number] [address] [place] [address], [place] [address] Oct, [facility] [address] [id number] [address] [place] [address], [place] [address] Oct, [facility] [address] [id number] [address] [place] [address], [place] [address] Oct, [facility] [address] [id number] [address] [place] [address] Oct, [facility] [address] [id number] [address] [place] [address] Oct, [facility] [place] [address] [id number] [place] [id number] Oct, [facility] [address] [id number] [address] [place] [address] Oct, [facility] [address] [id number] [address] [place] [address], [place] [address] Sep, [facility] [address] [id number] [address] [place] [address] Sep, [facility] [address] [id number] [address] [place] [address], [place] [address] Aug, [facility] [address] [id number] [address] [place] [address], [place] [address] Aug, [facility] [address] [id number] [address] [place] [address], [place] [address] Aug, [facility] [address] [id number] [address] [place] [address], [place] [address] Aug, [facility] [address] [id number] [address] [place] [address], [place] [address] Jul, [facility] [address] [id number] [address] [place] [address], [place] [address] Jul, [facility] [address] [id number] [address] [place] [address], [place] [address] Jun, [facility] [address] [id number] [address] [place] [address], [place] [address] Jun, [facility] [address] [id number] [address] [place] [address], [place] [address] May, [facility] [address] [id number] [address] [place] [address], [place] [address] May, [facility] [address] [id number] [address] [place] [address], [place] [address] May, [facility] [address] [id number] [address] [place] [address], [place] [address] May, [facility] [address] [id number] [address] [place] [address], [place] [address] Jan, [facility] [address] [id number] [address] [place] [address], [place] [address] Jan, [facility] [address] [id number] [address] [place] [address], [place] [address] Nov, [facility] [address] [id number] [address] [place] [address], [place] [address] Nov, [facility] [address] [id number] [address] [place] [address], [place] [address] Nov, [facility] [address] [id number] [facility] [address] Nov, [facility] [address] [id number] [address] [place] [address], [place] [address] Nov, [facility] [address] [id number] [address] [place] [address], [place] [address] Nov, [facility] [address] [id number] [address] [place] [address], [place] [address] Nov, [facility] [address] [id number] [address] [place] [address], [place] [address] Nov, [facility] [address] [id number] [address] [place] [address], [place] [address] Nov, [facility] [address] [id number] [address] [place] [address], [place] [address] Nov, [facility] [address] [id number] [address] [place] [address], [place] [address] Oct, [facility] [address] [id number] [address] [place] [address], [place] [address] Oct, [facility] [address] [id number] [address] [place] [address], [place] [address] Oct, [facility] [address] [id number] [address] [place] [address], [place] [address] Oct, [facility] [address] [id number] [address] [place] [address], [place] [address] Sep, [facility] [address] [id number] [address] [place] [address], [place] [address] Sep, [facility] [address] [id number] [address] [place] [address], [place] [address] Aug, [facility] [address] [id number] [address] [place] [address], [place] [address] Aug, [facility] [address] [id number] [address] [place] [address], [place] [address] Aug, [facility] [address] [id number] [address] [place] [address], [place] [address] Aug, [facility] [address] [id number] [address] [place] [address], [place] [address] Aug, [facility] [address] [id number] [address] [place] [address], [place] [address] Aug, [facility] [address] [id number] [address] [place] [address], [place] [address] Aug, [facility] [address] [id number] [address] [place] [address], [place] [address] Aug, [facility] [address] [id number] [address] [place] [address], [place] [address] Jul, [facility] [address] [id number] [address] [place] [address], [place] [address] Jul, [facility] [address] [id number] [address] [place] [address], [place] [address] Jul, [facility] [address] [id number] [address] [place] [address], [place] [address] Jul, [facility] [address] [id number] [address] [place] [address], [place] [address] Jul, [facility] [address] [id number] [address] [place] [address], [place] [address] Jun, [facility] [address] [id number] [address] [place] [address], [place] [address] May, [facility] [address] [id number] [address] [place] [address], [place] [address] Apr, [facility] [address] [id number] [address] [place] [address], [place] [address] February, [facility] [address] [id number] [address] [place] [address], [place] [address] Jan, [facility] [address] [id number] [address] [place] [address] Jan, [facility] [address] [id number] [address] [place] [address] Dec, [facility] [address] [id number] [address] [place] [address] Dec, [facility] [address] [facility] [id number] [address] [place] [id number] Dec, [facility] [facility] [address] [facility] [id number] [address] [place] [id number] Nov, [facility] [address] [facility] [id number] [address] [place] [id number] Nov, [facility] [address] [facility] [id number] [address] [place] [id number] Nov, [facility] [address] [facility] [id number] [address] [place] [id number] Nov, IMMUNIZATIONS No Known Immunizations SOCIAL HISTORY Never Assessed REASON FOR VISIT Prescription change PLAN OF CARE VITAL SIGNS MEDICATIONS No [...] thakur [facility]- normal EF, LV function,-minimal RCA blockage <20% 1996 [facility]os[facility], mild nonspecific bulbar duodenitis [...]
--- OUTSIDE RECORDS SUMMARY | 2020-04-06 06:58 | XMS REPORT ---
Author Author Jermaine CAMPOS Organization [facility] Address [address] [place] [address] Care Team Providers Care Stage Director Name Role Phone TIFFANIE CAMPOS Unavailable PROBLEMS Type Condition ICD9-CM Code TEA32-QK Code Onset Dates Condition S tatus SNOMED Code Problem PAD (peripheral artery disease) I73.9 Active 265173797 Problem Mixed hyperlipidemia E78.2 Active 832950365 Problem Chronic obstructive pulmonary disease, unspecified COPD ty pe J44.9 Active 21258248 Problem Other chronic pain G89.29 Active 8 7299446 Problem Benign essential hypertension I10 Active 0562743 Problem New onset type 2 diabetes mellitus E11.9 Active 93532364 Problem Chronic bronchitis J42 Active 6 4158127 Problem Hyperlipemia E78.5 Active 1489448 4 Problem Peripheral arterial disease I73.9 Ac tive 348685063 Problem Claudication I73.9 Active 8771592 6 Problem S/P cardiac pacemaker procedure Z95.0 Active 413962467 Problem Non-rheumatic mitral regurgitation I34.0 Active 051565491 Problem Chronic pain G89.29 Active 3140203 1 Problem Diverticulosis of intestine without bleeding, unspecified intestinal tract location K57.90 Active 22300279 Problem Tobacco abuse Z72.0 Active 958997 05 Problem CAD (coronary artery disease) I25.10 Active 49213778 Problem COPD (chronic obstructive pulmonary disease) wit h chronic bronchitis J44.9 Active 199465682 Problem Gastroesophageal reflux disease without esophagitis K21.9 Active 653167554 Problem Abdominal bloating R14.0 Active 1 39239917 Problem Bilateral carotid artery disease I77.9 Active 600201030 Problem Fatty liver K76.0 Active 32300945 7 Problem Claudication of both lower extremities I73.9 Active 187071869 ALLERGIES No Known Allergies ENCOUNTERS Encounter Location Date Diagnosis [facility] [address] [facility] [id number] [id number] Jun, New onset type 2 diabetes mellitus E11.9 ; S/P CABG (coronary artery bypass graft) Z95.1 ; Benign essential hypertension I10 ; Other chronic pain G89.29 and S/P cardiac pacemaker procedure Z95.0 [facility] [id number] [place] [address] Jun, [facility] [address] [id number], [place] [address] May, [facility] [address] [id number][place] [address] May, COPD (chronic obstructive pulmonary dise ase) with chronic bronchitis J44.9 ; Tobacco abuse Z72.0 and Tobacco abuse counseling Z71.6 [facility] [address] [place] [address] AVE [id number], [place] [address]82[address]84 Apr, CAD (coronary artery disease) I25.10 [facility] [place] [address] AVE [id number], [place] [id number] Mar, Peripheral arterial disease I73.9 [facility] [place] [address] AVE [id number], [place] [address]0101449 February, Chronic pain G89.29 ; Hyperlipemia E78.5 and Benign essential hypertension I10 [facility] [address] [place] [address] AVE [id number], [place] [id number] Jan, COPD (chronic obstructive pulmonary dise ase) with chronic bronchitis J44.9 [facility] [address] [id number], [place] [id number] Jan, [facility] [place] [address] AVE [id number], [place] [address] Jan, Peripheral arterial disease I73.9 ; Carlo gn essential hypertension I10 ; Bilateral carotid artery disease I77.9 ; Claudication of both lower extremities I73.9 ; Mixed hyperlipidemia E78.2 ; Tobacco use Z72.0 and Non- rheumatic mitral regurgitation I34.0 [facility] [address] [id number], [place] [address] Jan, RUQ pain R10.11 ; Gastroesophageal reflu x disease without esophagitis K21.9 and Change in stool R19.5 [facility] [address] [id number], [place] [address] Jan, [facility] [address] [id number], [place] [address] Jan, Neck pain M54.2 ; Benign essential hyper tension I10 ; COPD (chronic obstructive pulmonary disease) with chronic bronchitis J44.9 and Chronic obstructive pulmonary disease, unspecified COPD type J44.9 [facility]Un[facility] [address] [id number], [place] [address]69[address] Jan, Chronic obstructive pulmonary disease, u nspecified COPD type J44.9 [facility] [address] [id number], [place] [address] Dec, [facility] [address] [address] [id number], [place] [address] Dec, [facility] [address] [address] [id number], [place] 379[address]356 Dec, COPD (chronic obstructive pulmonary dise ase) with chronic bronchitis J44.9 [facility] [address] [facility] [id number] [address] [place] [address] Dec, [facility] [address] [facility] [id number] [address] [place] [address] Dec, [facility] [address] [id number], [place] [id number] Nov, [facility] [address] [id number], [place] 488169276 Nov, Benign essential hypertension I10 and CO PD (chronic obstructive pulmonary disease) with chronic bronchitis J44.9 [facility] [address] [id number], [place] 578745182 Nov, Hyperlipemia E78.5 ; Benign essential hy pertension I10 ; COPD (chronic obstructive pulmonary disease) with chronic bronchitis J44.9 ; Encounter for immunization Z23 ; Gastroesophageal reflux disease without esophagitis K21.9 and Chronic pain G89.29 [facility] [address] [id number], [place] 9778504[address] Oct, COPD (chronic obstructive pulmonary dise ase) with chronic bronchitis J44.9 and Chronic obstructive pulmonary disease, unspecified COPD type J44.9 [email or web address] [address] [id number], [place] [address]672905 Oct, COPD (chronic obstructive pulmonary dise ase) with chronic bronchitis J44.9 and Chronic obstructive pulmonary disease, unspecified COPD type J44.9 [email or web address] A[facility] [id number], [place] 248594173 Oct, COPD (chronic obstructive pulmonary dise ase) with chronic bronchitis J44.9 and Chronic obstructive pulmonary disease, unspecified COPD type J44.9 [email or web address] [id number], [place] 309517557 Oct, Benign essential hypertension I10 and Ne ck pain M54.2 [email or web address] A[facility] [id number], [place] [address]122536[address] Sep, PAD (peripheral artery disease) I73.9 ; Claudication of both lower extremities I73.9 ; Bilateral carotid artery disease I77.9 ; Benign essential hypertension I10 ; Hyperlipemia E78.5 and Dyspnea on exertion R06.09 [facility], [facility] A[facility] [id number], [place] [address]86 Aug, Benign essential hypertension I10 ; Vannessa roesophageal reflux disease without esophagitis K21.9 and Cervical radiculopathy M54.12 [facility], [facility] A[facility] [id number], [place] [id number] Aug, Gastroesophageal reflux disease without esophagitis K21.9 [facility]ITALBioMar[facility] Pharm[facility] A[address] [id number], [place] [address]885978[address] Aug, COPD (chronic obstructive pulmonary dise ase) with chronic bronchitis J44.9 [facility] [address] [id number] [place] [address] Jul, [facility] [address] [id number] [place] [address] Jul, Benign essential hypertension I10 [facility] [address] [id number] [place] [address] Jul, [facility] [address] [id number] [place] [address]19[address] Jul, COPD (chronic obstructive pulmonary dise ase) with chronic bronchitis J44.9 [facility] [address] [id number] [place] [id number] Jul, Neck pain M54.2 [facility] [address] [id number], [place] 081964326 Jun, Claudication of both lower extremities I 73.9 ; PAD (peripheral artery disease) I73.9 ; Bilateral carotid artery disease I77.9 ; CAD (coronary artery disease) I25.10 ; Tobacco abuse Z72.0 ; Benign essential hypertension I10 ; Hyperlipemia E78.5 and Non-rheumatic mitral valve stenosis I34.2 [facility] [address] [id number], [place] 650213187 Jun, Chronic obstructive pulmonary disease, u nspecified COPD type J44.9 [facility] [address] [id number], [place] [address]442418[address] May, [facility] [address] [id number], [place] 072626334 May, Chronic obstructive pulmonary disease, u nspecified COPD type J44.9 [facility] [address] [id number] [place] 18907[address]46 May, Neck pain M54.2 ; Chronic obstructive pu lmonary disease, unspecified COPD type J44.9 and Cervical radiculopathy M54.12 [facility] [address] [id number] [place] [address] May, [facility] [address] [id number] [place] [address] Apr, [facility] [address] [id number] [place] 1757[address]389 Apr, Gastroesophageal reflux disease without esophagitis K21.[address] [facility] [address] [id number] [place] [address] Apr, COPD (chronic obstructive pulmonary dise ase) with chronic bronchitis J44.[address] [facility] [address] [id number], [place] [address]37310942 Apr, [facility] [address] [id number] [place] 383[address] Apr, [facility] [address] [id number], [place] 817815268 Apr, COPD (chronic obstructive pulmonary dise ase) with chronic bronchitis J44.9 ; Benign essential hypertension I10 ; Tobacco abuse counseling Z71.6 and Hyperlipemia E78.[address] [facility] [address] [id number], [place] 549065475 February, COPD (chronic obstructive pulmonary dise ase) with chronic bronchitis J44.[address] [facility] [address] [id number], [place] 822945455 Jan, [facility] [address] [id number], [place] 486171055 Jan, COPD (chronic obstructive pulmonary dise ase) with chronic bronchitis J44.[address] [facility] [address] [id number], [place] 978587403 Oct, COPD (chronic obstructive pulmonary dise ase) with chronic bronchitis J44.[address] [facility] [address] [id number], [place] 740346464 Oct, Winter itch L29.[address] [facility] [address] [id number] [place] [address] Oct, COPD (chronic obstructive pulmonary dise ase) with chronic bronchitis J44.9 ; Benign essential hypertension I10 ; Tobacco abuse Z72.0 and Gastroesophageal reflux disease without esophagitis K21.9 [facility] [address] [id number], [place] 437099214 Sep, Benign essential hypertension I10 [facility] [address] [id number], [place] 887103512 Aug, [facility] [address] [id number], [place] [id number] Jul, [facility]ITALSEUnite TechnologiesWAGNER [facility] [address] [id number], [place] 385602986 Apr, [facility]Unite TechnologiesWAGNER[address] [id number], [place] [id number] Apr, Abdominal bloating R14.0 ; Fatty liver K 76.0 ; Diverticulosis of intestine without bleeding, unspecified intestinal tract location K57.90 ; Chronic obstructive pulmonary disease, unspecified COPD type J44.9 and Benign essential hypertension I10 [facility] F[facility]TER [address] [place] [address] AVE [id number], [place] 327693861 Apr, Mild early onset dysthymic disorder, in partial remission, with melancholic features, 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 [facility] [address] [id number], [place] 030559529 Mar, Abdominal muscle strain, initial encount er S39.011A [facility]ITALUnite TechnologiesWAGNER[address] [id number], [place] 085535155 Jan, Pancreatitis K85.9 ; Abdominal bloating R14.0 ; Chronic bronchitis J42 and Chronic pain G89.29 [facility] [address] [id number], [place] [id number] Nov, [facility]ALSEUnite TechnologiesWAGNERDAVID [place] [id number], [place] [id number] Nov, [facility] [place] [place] [address] [id number], [place] 335820036 Nov, Chronic bronchitis J42 ; Tobacco abuse Z 72.0 and Tobacco abuse counseling Z71.6 [facility] [address] [id number], [place] 500539623 Oct, [facility] [address] [id number], [place] 476794271 Oct, Chronic bronchitis J42 ; Tobacco abuse Z 72.0 and Benign essential hypertension I10 [facility] [address] [id number], [place] 236970692 Oct, Chronic bronchitis J42 ; Tobacco abuse Z 72.0 ; Tobacco abuse counseling Z71.6 ; Benign essential hypertension I10 and Hyperlipemia E78.5 [facility] [address] [facility] [id number] [address] [place] [address] Sep, [facility] [address] [id number], [place] 235984855 Jul, [facility] [address] [facility] [id number] [address] [place] [address] Jul, Essential (primary) hyperten aida I10 [facility] [address] [facility] [id number] [address] [place] [address] Jul, [facility] [address] [id number], [place] 330673063 Jul, [facility] [address] [id number], [place] 176355699 Jun, Benign essential hypertension 401.1 ; Ge neralized edema 782.3 ; Chronic pain 338.29 and Hyperlipemia 272.4 [facility] [address] [id number], [place] 165219163 May, Upper respiratory infection 465.9 and Co ugh 786.2 [facility] [address] [id number], [place] 108037632 Mar, Upper respiratory infection 465.9 ; 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 and Cough 786.2 [facility] [address] [id number], [place] 127261795 February, [facility] [id number] [place] [id number] February, Status post bilateral carotid endarterec vito V45.89 ; CAD (coronary artery disease) 414.00 ; Benign essential hypertension 401.1 ; Hyperlipemia 272.4 ; Tobacco abuse 305.1 ; Tobacco abuse counseling V65.42 and Chronic bronchitis 491.9 [facility] [address] [facility] [id number] [address] [place] [address] Jan, [facility] [address] [facility] [id number] [address] [place] [address] Jan, [facility] [address] [facility] [id number] [address] [place] [address] Dec, [facility] [address] [facility] [id number] [address] [place] [address] Dec, [facility] [address] [facility] [id number] [address] [place] [address] Nov, [facility] [address] [facility] [id number] [address] [place] [address] Nov, [facility] [address] [facility] [id number] [address] [place] [address] Nov, [facility] [address] [facility] [id number] [address] [place] [address] Nov, [facility] [address] [facility] [id number] [address] [place] [address] Nov, [facility] [address] [facility] [id number] [address] [place] [address] Nov, [facility] [address] [facility] [id number] [address] [place] [address] Nov, [facility] [address] [facility] [id number] [address] [place] [address] Nov, [facility] [address] [facility] [id number] [address] [place] [address] Nov, [facility] [address] [id number] [address] [place] [address], [place] [address] Oct, [facility] [address] [id number] [address] [place] [address], [place] [address] Oct, [facility] [address] [id number] [address] [place] [address], [place] [address] Oct, [facility] [address] [id number] [address] [place] [address] Oct, [facility] [address] [id number] [address] [place] [address], [place] [address] Oct, [facility] [address] [id number] [address] [place] [address], [place] [address] Oct, [facility] [address] [id number] [address] [place] [address], [place] [address] Oct, [facility] [address] [id number] [address] [place] [address] Oct, [facility] [address] [id number] [address] [place] [address] Oct, [facility] [address] [id number] [address] [place] [address] Oct, [facility] [place] [address] [id number] [place] [id number] Oct, [facility] [address] [id number] [address] [place] [address] Oct, [facility] [address] [id number] [address] [place] [address], [place] [address] Sep, [facility] [address] [id number] [address] [place] [address] Sep, [facility] [address] [id number] [address] [place] [address], [place] [address] Aug, [facility] [address] [id number] [address] [place] [address], [place] [address] Aug, [facility] [address] [id number] [address] [place] [address], [place] [address] Aug, [facility] [address] [id number] [address] [place] [address], [place] [address] Aug, [facility] [address] [id number] [address] [place] [address], [place] [address] Jul, [facility] [address] [id number] [address] [place] [address], [place] [address] Jul, [facility] [address] [id number] [address] [place] [address], [place] [address] Jun, [facility] [address] [id number] [address] [place] [address], [place] [address] Jun, [facility] [address] [id number] [address] [place] [address], [place] [address] May, [facility] [address] [id number] [address] [place] [address], [place] [address] May, [facility] [address] [id number] [address] [place] [address], [place] [address] May, [facility] [address] [id number] [address] [place] [address], [place] [address] May, [facility] [address] [id number] [address] [place] [address], [place] [address] Jan, [facility] [address] [id number] [address] [place] [address], [place] [address] Jan, [facility] [address] [id number] [address] [place] [address], [place] [address] Nov, [facility] [address] [id number] [address] [place] [address], [place] [address] Nov, [facility] [address] [id number] [address] [place] [address], [place] [address] Nov, [facility] [address] [id number] [facility] [place] [address] Nov, [facility] [address] [id number] [address] [place] [address], [place] [address] Nov, [facility] [address] [id number] [address] [place] [address], [place] [address] Nov, [facility] [address] [id number] [address] [place] [address], [place] [address] Nov, [facility] [address] [id number] [address] [place] [address], [place] [address] Nov, [facility] [address] [id number] [address] [place] [address], [place] [address] Nov, [facility] [address] [id number] [address] [place] [address], [place] [address] Nov, [facility] [address] [id number] [address] [place] [address], [place] [address] Oct, [facility] [address] [id number] [address] [place] [address], [place] [address] Oct, [facility] [address] [id number] [address] [place] [address], [place] [address] Oct, [facility] [address] [id number] [address] [place] [address], [place] [address] Oct, [facility] [address] [id number] [address] [place] [address], [place] [address] Sep, [facility] [address] [id number] [address] [place] [address], [place] [address] Sep, [facility] [address] [id number] [address] [place] [address], [place] [address] Aug, [facility] [address] [id number] [address] [place] [address], [place] [address] Aug, [facility] [address] [id number] [address] [place] [address], [place] [address] Aug, [facility] [address] [id number] [address] [place] [address], [place] [address] Aug, [facility] [address] [id number] [address] [place] [address], [place] [address] Aug, [facility] [address] [id number] [address] [place] [address], [place] [address] Aug, [facility] [address] [id number] [address] [place] [address], [place] [address] Aug, [facility] [address] [id number] [address] [place] [address], [place] [address] Aug, [facility] [address] [id number] [address] [place] [address], [place] [address] Jul, [facility] [address] [id number] [address] [place] [address], [place] [address] Jul, [facility] [address] [id number] [address] [place] [address], [place] [address] Jul, [facility] [address] [id number] [address] [place] [address], [place] [address] Jul, [facility] [address] [id number] [address] [place] [address], [place] [address] Jul, [facility] [address] [id number] [address] [place] [address], [place] [address] Jun, [facility] [address] [id number] [address] [place] [address], [place] [address] May, [facility] [address] [id number] [address] [place] [address], [place] [address] Apr, [facility] [address] [id number] [address] [place] [address], [place] [address] February, [facility] [address] [id number] [address] [place] [address], [place] [address] Jan, [facility] [address] [id number] [address] [place] [id number] Jan, [facility] [address] [id number] [address] [place] [id number] Dec, [facility] [address] [id number] [address] [place] [address] Dec, [facility] [address] [id number] [address] [place] [id number] Dec, [facility] [address] [id number] [address] [place] [id number] Nov, [facility] [address] [id number] [address] [place] [id number] Nov, [facility] [address] [id number] [address] [place] [id number] Nov, [facility] [address] [id number] [place] [id number] Nov, IMMUNIZATIONS No Known Immunizations SOCIAL HISTORY Never Assessed REASON FOR VISIT quit smoking- wants to discuss options for smoking cessation Saige VALENTINO, Dr Maxwell Reyes with [facility] did Heart Cath 05/17/18- Pt voices he needs further surger y PLAN OF CARE Activity Details Follow Up prn Reason: VITAL SIGNS Height 62 in 2018-05-17 Weight 163.3 lbs 2018-05-17 Temperature 97.5 degrees Fahrenheit 2018-05-17 Heart Rate 75 bpm 2018-05-17 Respiratory Rate 18 2018-05-17 BMI 29.86 kg/m2 2018-05-17 Blood pressure systolic 148 mmHg 2018-05-17 Blood pressure diastolic 65 mmHg 2018-05-17 MEDICATIONS Medication Instructions Dosage Frequency Start Date End Date Duration S tatus Lisinopril 40 mg Orally Once a day 1 tablet Once a day Orally 24h Active Albuterol Sulfate (2.5 MG/3ML) 0.083% Inhalation Three times a day, PRN 3 ml Oct, Active Celebrex 200 mg Orally Once a day 1 capsule with food 24h May, Active Norvasc 10 MG Orally Once a day 1 tablet 24h 30 days Active Ventolin HFA 108 (90 Base) MCG/ACT Inhalation every 4 hrs 2 puffs a s needed 4h Active Gabapentin 600 MG Orally 3 times a day 1 tablet 8h Active Protonix 40 mg Orally Once a day- stop omeprazole 1 tablets 2016 Active Aspirin 81 MG Orally Once a day 1 tablet 24h Active Chantix 1 MG Orally Twice a day- x12 weeks 1/2 tablet daily x 3 days, then 1/2 tablet twice daily x 3 days, then 1 tablet twice daily 2017Aug, 90 days Active Metoprolol Tartrate 50 mg Orally Twice a day 1 tablet 12h Active Bevespi Aerosphere 9-4.8 MCG/ACT Inhalation Twice a day 2 puffs 12h May, Active Crestor 20 mg Orally Once a day 1 tablet 24h Apr, 90 days Active Fish Oil 500 mg Orally 3 times a day TAKE ONE CAPSULE BY MOUTH THREE TIMES DAILY 8h 30 Active Flovent HFA 110 MCG/ACT Inhalation Twice a day (PALS) 2 puff Oct, 30 days Active RESULTS No Results PROCEDURES No Known procedures INSTRUCTIONS MEDICATIONS ADMINISTERED No Known Medications MEDICAL (GENERAL) HISTORY Type Description Date Medical History GERD Medical History hypertension Medical History 1999 mild stroke syndrome- C T head 02/2015 showed chronic ischemic changes Medical History chronic neck and back pain Medical History [place] x's 2 1996 and 2011 Medical History [...]
--- OUTSIDE RECORDS SUMMARY | 2020-04-06 06:58 | XMS REPORT ---
Author Author Jermaine CAMPOS Organization [facility] Address [address] [place] [address] Care Team Providers Care Physician Internist Name Role Phone TIFFANIE CAMPOS Unavailable PROBLEMS Type Condition ICD9-CM Code HJY04-RC Code Onset Dates Condition S tatus SNOMED Code Problem Gastroesophageal reflux disease without esophagitis K21.9 Active 664653764 Problem Bilateral carotid artery disease I77.9 Active 016789677 Problem Claudication of both lower extremities I73.9 Active 795070659 Problem Mixed hyperlipidemia E78.2 Active 474589835 Problem Peripheral arterial disease I73.9 Ac tive 433575233 Problem Chronic obstructive pulmonary disease, unspecified COPD ty pe J44.9 Active 33742907 Problem PAD (peripheral artery disease) I73.9 Active 877202859 Problem Claudication I73.9 Active 1345213 6 Problem Non-rheumatic mitral regurgitation I34.0 Active 795263468 Problem Tobacco abuse Z72.0 Active 706079 05 Problem Benign essential hypertension I10 Active 0035294 Problem Hyperlipemia E78.5 Active 3385097 4 Problem Chronic bronchitis J42 Active 6 2466706 Problem Diverticulosis of intestine without bleeding, unspecified intestinal tract location K57.90 Active 26165828 Problem Abdominal bloating R14.0 Active 1 12672496 Problem Chronic pain G89.29 Active 6927074 1 Problem Fatty liver K76.0 Active 80249382 7 Problem CAD (coronary artery disease) I25.10 Active 04610586 Problem COPD (chronic obstructive pulmonary disease) wit h chronic bronchitis J44.9 Active 193437102 ALLERGIES No Information ENCOUNTERS Encounter Location Date Diagnosis [facility] [address] [id number] [place] [id number] May, [address] [id number] [address] May, COPD (chronic obstructive pulmonary dise ase) with chronic bronchitis J44.9 ; Tobacco abuse Z72.0 and Tobacco abuse counseling Z71.6 [facility] [address] [place] [address] AVE [id number], [place] [address]59264786 Apr, CAD (coronary artery disease) I25.10 [facility] [employer] [place] [address] AVE [id number], [place] [id number] Mar, Peripheral arterial disease I73.9 [facility] [address] [employer] [place] [address] AVE [id number], [place] [id number] February, Chronic pain G89.29 ; Hyperlipemia E78.5 and Benign essential hypertension I10 [facility] [employer] [place] [address] A[place] [id number], [place] [id number] Jan, COPD (chronic obstructive pulmonary dise ase) with chronic bronchitis J44.9 [facility] Systems[facility] [employer] [place] [address] A[place] [id number], [place] [id number] Jan, [facility] [address] [employer] [place] [address] AVE [id number], [place] [id number] Jan, Peripheral arterial disease I73.9 ; Carlo gn essential hypertension I10 ; Bilateral carotid artery disease I77.9 ; Claudication of both lower extremities I73.9 ; Mixed hyperlipidemia E78.2 ; Tobacco use Z72.0 and Non- rheumatic mitral regurgitation I34.0 [facility] Systems[facility] [employer] [place] [address] AVE [id number], [place] [id number] Jan, RUQ pain R10.11 ; Gastroesophageal reflu x disease without esophagitis K21.9 and Change in stool R19.5 [facility] SystemsW[facility] [employer] [place] [address] A[address] [id number], [place] [id number] Jan, [facility] [employer] [address] [id number], [place] [id number] Jan, Neck pain M54.2 ; Benign essential hyper tension I10 ; COPD (chronic obstructive pulmonary disease) with chronic bronchitis J44.9 and Chronic obstructive pulmonary disease, unspecified COPD type J44.9 [facility] [employer] [address] [id number] [place] [id number] Jan, Chronic obstructive pulmonary disease, u nspecified COPD type J44.9 [facility] [address] [id number] [place] [address] Dec, [facility] [address] [id number], [place] [id number] Dec, [facility] [address] [id number], [place] [id number] Dec, COPD (chronic obstructive pulmonary dise ase) with chronic bronchitis J44.9 [facility] [address] [facility]NOTE [facility]] [id number] [place] [address] Dec, [facility] [address] [facility]] [id number] [address] [place] [address] Dec, [facility] [address] [id number], [place] [id number] Nov, [facility] [address] [id number], [place] [id number] Nov, Benign essential hypertension I10 and CO PD (chronic obstructive pulmonary disease) with chronic bronchitis J44.9 [facility] [address] [id number], [place] [id number] Nov, Hyperlipemia E78.5 ; Benign essential hy pertension I10 ; COPD (chronic obstructive pulmonary disease) with chronic bronchitis J44.9 ; Encounter for immunization Z23 ; Gastroesophageal reflux disease without esophagitis K21.9 and Chronic pain G89.29 [facility] [address] [id number], [place] [id number] Oct, COPD (chronic obstructive pulmonary dise ase) with chronic bronchitis J44.9 and Chronic obstructive pulmonary disease, unspecified COPD type J44.9 [facility] [address] [id number], [place] [id number] Oct, COPD (chronic obstructive pulmonary dise ase) with chronic bronchitis J44.9 and Chronic obstructive pulmonary disease, unspecified COPD type J44.[address] [facility] [address] [id number] [place] [address] Oct, COPD (chronic obstructive pulmonary dise ase) with chronic bronchitis J44.9 and Chronic obstructive pulmonary disease, unspecified COPD type J44.9 [facility] [address] [id number] [place] [address] Oct, Benign essential hypertension I10 and Ne ck pain M54.2 [facility] [address] [id number], [place] [address] Sep, PAD (peripheral artery disease) I73.9 ; Claudication of both lower extremities I73.9 ; Bilateral carotid artery disease I77.9 ; Benign essential hypertension I10 ; Hyperlipemia E78.5 and Dyspnea on exertion R06.09 [facility] [address] [id number], [place] [id number] Aug, Benign essential hypertension I10 ; Vannessa roesophageal reflux disease without esophagitis K21.9 and Cervical radiculopathy M54.12 [facility] [address] [id number], [place] [id number] Aug, Gastroesophageal reflux disease without esophagitis K21.9 [facility] [address] [id number], [place] [id number] Aug, COPD (chronic obstructive pulmonary dise ase) with chronic bronchitis J44.9 [facility] [address] [id number], [place] [id number] Jul, [facility] [address] [id number], [place] [id number] Jul, Benign essential hypertension I10 [facility] [address] [id number], [place] [id number] Jul, [facility] [address] [id number], [place] [id number] Jul, COPD (chronic obstructive pulmonary dise ase) with chronic bronchitis J44.9 [facility] [address] [id number], [place] [address] Jul, Neck pain M54.2 [facility] [address] [id number] [place] [id number] Jun, Claudication of both lower extremities I 73.9 ; PAD (peripheral artery disease) I73.9 ; Bilateral carotid artery disease I77.9 ; CAD (coronary artery disease) I25.10 ; Tobacco abuse Z72.0 ; Benign essential hypertension I10 ; Hyperlipemia E78.5 and Non-rheumatic mitral valve stenosis I34.2 [facility] [address] [id number] [place] [id number] Jun, Chronic obstructive pulmonary disease, u nspecified COPD type J44.9 [facility] [address] [id number] [place] [id number] May, [facility] [address] [id number], [place] [id number] May, Chronic obstructive pulmonary disease, u nspecified COPD type J44.9 [facility] [address] [id number], [place] [address] May, Neck pain M54.2 ; Chronic obstructive pu lmonary disease, unspecified COPD type J44.9 and Cervical radiculopathy M54.12 [facility] [address]W[facility] [address] [id number], [place] [id number] May, [facility] [address] [id number], [place] 006658906 Apr, [facility] [address] [id number] [place] [address] Apr, Gastroesophageal reflux disease without esophagitis K21.9 [facility] [address] [id number], [place] [id number] Apr, COPD (chronic obstructive pulmonary dise ase) with chronic bronchitis J44.9 [facility] [address] [id number], [place] [id number] Apr, [facility] TechnologiesSEVert[facility] SystemsW[facility] [address] [id number] [place] [address] Apr, [facility] [address] [id number] [place] [id number] Apr, COPD (chronic obstructive pulmonary dise ase) with chronic bronchitis J44.9 ; Benign essential hypertension I10 ; Tobacco abuse counseling Z71.6 and Hyperlipemia E78.[address] [facility] [address] [id number] [place] [id number] February, COPD (chronic obstructive pulmonary dise ase) with chronic bronchitis J44.[address] [facility] [address] [id number] [place] [id number] Jan, [facility] [address] [id number] [place] [address] Jan, COPD (chronic obstructive pulmonary dise ase) with chronic bronchitis J44.[address] [facility] [address] [id number] [place] [address] Oct, COPD (chronic obstructive pulmonary dise ase) with chronic bronchitis J44.[address] [facility] [address] [id number] [place] [id number] Oct, Winter itch L29.[address] [facility] [address] [id number] [place] [id number] Oct, COPD (chronic obstructive pulmonary dise ase) with chronic bronchitis J44.9 ; Benign essential hypertension I10 ; Tobacco abuse Z72.0 and Gastroesophageal reflux disease without esophagitis K21.[address] [facility] [address] [id number] [place] [id number] Sep, Benign essential hypertension I10 [facility] [address] [id number] [place] [address] Aug, [facility] [address] [id number] [place] [id number] Jul, [facility] [address] [id number] [place] [address] Apr, [facility] [address] [id number], [place] [id number] Apr, Abdominal bloating R14.0 ; Fatty liver K 76.0 ; Diverticulosis of intestine without bleeding, unspecified intestinal tract location K57.90 ; Chronic obstructive pulmonary disease, unspecified COPD type J44.9 and Benign essential hypertension I10 [facility] BERNARD Sanchez[address] [facility] [address] [id number], [place] [id number] Apr, Mild early onset dysthymic disorder, in partial remission, with melancholic features, 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 [facility] [address] [id number], [place] [address]19985 Mar, Abdominal muscle strain, initial encount er S39.011A [facility] [address] [id number], [place] 810110413 Jan, Pancreatitis K85.9 ; Abdominal bloating R14.0 ; Chronic bronchitis J42 and Chronic pain G89.29 [facility] [address] [employer] [place] [address] A[address] [id number], [place] [id number] Nov, [facility] SystemsWAGNER[address] AV [id number], [place] [id number] Nov, [facility] [address] [employer] [place] [address] [place] [id number], [place] [id number] Nov, Chronic bronchitis J42 ; Tobacco abuse Z 72.0 and Tobacco abuse counseling Z71.6 [facility] [address] [employer] [place] [address] [address] [id number], [place] [id number] Oct, [facility] Systems[facility] [employer] [place] [address] A[address] [id number], [place] [id number] Oct, Chronic bronchitis J42 ; Tobacco abuse Z 72.0 and Benign essential hypertension I10 [facility] [address] [employer] [place] [address] A[address] [id number], [place] 462121432 Oct, Chronic bronchitis J42 ; Tobacco abuse Z 72.0 ; Tobacco abuse counseling Z71.6 ; Benign essential hypertension I10 and Hyperlipemia E78.[address] [id number] [address] [place] [address] Sep, [facility] [address] [id number], [place] [id number] Jul, [facility] [address] [facility]NOTE 3] [id number] [address] [place] [address] Jul, Essential (primary) hyperten aida I10 [facility] [address] [facility] 3] [id number] [address] [place] [address] Jul, [facility] [id number] [place] [id number] Jul, [facility] [id number] [place] [id number] Jun, Benign essential hypertension 401.1 ; Ge neralized edema 782.3 ; Chronic pain 338.[address] [facility] [id number] [place] [id number] May, Upper respiratory infection 465.9 and Co ugh 786.2 [facility] [id number] [place] [address] [id number] Mar, Upper respiratory infection 465.9 ; Toba lead accountant abuse 305.[address] [facility] [address] [id number], [place] [id number] February, [facility] [id number] [place] [id number] February, Status post bilateral carotid endarterec vito V45.89 ; CAD (coronary artery disease) 414.00 ; Benign essential hypertension 401.1 ; Hyperlipemia 272.4 ; Tobacco abuse 305.1 ; Tobacco abuse counseling V65.42 and Chronic bronchitis 491.9 [facility] [address] [facility]NOTE 3] [id number] [address] [place] [address] Jan, [facility] [address] [facility]NOTE 3] [id number] [address] [place] [address] Jan, [facility] [address] [id number] [address] [place] [address], [place] [address] Dec, [facility] [address] [id number] [address] [place] [address], [place] [address] Dec, [facility] [address] [id number] [address] [place] [address], [place] [address] Nov, 2014 [facility] [address] [id number] [address] [place] [address], [place] [address] Nov, 2014 [facility] [address] [id number] [address] [place] [address], [place] [address] Nov, 2014 [facility] [address] [id number] [address] [place] [address], [place] [address] Nov, [facility] [address] [id number] [address] [place] [address], [place] [address] Nov, 2014 [facility] [address] [id number] [address] [place] [address], [place] [address] Nov, 2014 [facility] [address] [id number] [address] [place] [address], [place] [address] Nov, [facility] [address] [id number] [address] [place] [address], [place] [address] Nov, [facility] [address] [id number] [address] [place] [address] Nov, [facility] [address] [id number] [address] [place] [address] Oct, [facility] [address] [id number] [address] [place] [address], [place] [address] Oct, [facility] [address] [id number] [address] [place] [address] Oct, [facility] [address] [id number] [address] [place] [address] Oct, [facility] [address] [id number] [address] [place] [address] Oct, [facility] [address] [id number] [address] [place] [address], [place] [address] Oct, [facility] [address] [id number] [address] [place] [address], [place] [address] Oct, [facility] [address] [id number] [address] [place] [address], [place] [address] Oct, [facility] [address] [id number] [address] [place] [address], [place] [address] Oct, [facility] [address] [id number] [address] [place] [address], [place] [address] Oct, [facility] [address] [id number] [place] [id number] Oct, [facility] [address] [id number] [address] [place] [address], [place] [address] Oct, [facility] [address] [id number] [address] [place] [address], [place] [address] Sep, [facility] [address] [id number] [address] [place] [address], [place] [address] Sep, [facility] [address] [id number] [address] [place] [address], [place] [address] Aug, [facility] [address] [id number] [address] [place] [address], [place] [address] Aug, [facility] [address] [id number] [address] [place] [address], [place] [address] Aug, [facility] [address] [id number] [address] [place] [address], [place] [address] Aug, [facility] [address] [id number] [address] [place] [address], [place] [address] Jul, [facility] [address] [id number] [address] [place] [address], [place] [address] Jul, [facility] [address] [id number] [address] [place] [address], [place] [address] Jun, [facility] [address] [id number] [address] [place] [address], [place] [address] Jun, [facility] [address] [id number] [address] [place] [address], [place] [address] May, [facility] [address] [id number] [address] [place] [address], [place] [address] May, [facility] [address] [id number] [address] [place] [address], [place] [address] May, [facility] [address] [id number] [address] [place] [address], [place] [address] May, [facility] [address] [id number] [address] [place] [address], [place] [address] Jan, [facility] [address] [id number] [address] [place] [address], [place] [address] Jan, [facility] [address] [id number] [address] [place] [address], [place] [address] Nov, [facility] [address] [id number] [address] [place] [address], [place] [address] Nov, [facility] [address] [id number] [address] [place] [address], [place] [address] Nov, [facility] [address] [id number] [address] [place] [address], [place] [address] Nov, [facility] [address] [id number] [address] [place] [address], [place] [address] Nov, [facility] [address] [id number] [address] [place] [address], [place] [address] Nov, [facility] [address] [id number] [address] [place] [address], [place] [address] Nov, [facility] [address] [id number] [place] [address] Nov, [facility] [address] [id number] [address] [place] [address], [place] [address] Nov, [facility] [address] [id number] [address] [place] [address], [place] [address] Nov, [facility] [address] [id number] [address] [place] [address], [place] [address] Oct, [facility] [address] [id number] [address] [place] [address], [place] [address] Oct, [facility] [address] [id number] [address] [place] [address], [place] [address] Oct, [facility] [address] [id number] [address] [place] [address], [place] [address] Oct, [facility] [address] [id number] [address] [place] [address], [place] [address] Sep, [facility] [address] [id number] [address] [place] [address], [place] [address] Sep, [facility] [address] [id number] [address] [place] [address], [place] [address] Aug, [facility] [address] [id number] [address] [place] [address], [place] [address] Aug, [facility] [address] [id number] [address] [place] [address], [place] [address] Aug, [facility] [address] [id number] [address] [place] [address] Aug, [facility] [address] [id number] [address] [place] [address], [place] [address] Aug, [facility] [address] [id number] [address] [place] [address], [place] [address] Aug, [facility] [address] [id number] [address] [place] [address], [place] [address] Aug, [facility] [address] [id number] [address] [place] [address], [place] [address] Aug, [facility] [address] [id number] [address] [place] [address], [place] [address] Jul, [facility] [address] [id number] [address] [place] [address], [place] [address] Jul, [facility] [address] [id number] [address] [place] [address], [place] [address] Jul, [facility] [address] [id number] [address] [place] [address], [place] [address] Jul, [facility] [address] [id number] [address] [place] [address], [place] [address] Jul, [facility] [address] [id number] [address] [place] [address], [place] [address] Jun, [facility] [address] [id number] [address] [place] [address], [place] [address] May, [facility] [address] [id number] [address] [place] [address], [place] [address] Apr, [facility] [address] [id number] [address] [place] [address], [place] [address] February, [facility] [address] [id number] [address] [place] [address], [place] [address] Jan, [facility] [address] [id number] [address] [place] [address], [place] [address] Jan, [facility] [address] [id number] [address] [place] [address], [place] [address] Dec, [facility] [address] [id number] [address] [place] [address], [place] [address] Dec, [facility] [address] [id number] [address] [place] [address], [place] [address] Dec, [facility] [address] [id number] [address] [place] [address], [place] [address] Nov, [facility] [address] [facility] [id number] [address] [place] [address] Nov, [facility] [address] [facility]] [id number] 23 [place] [id number] Nov, [facility] [address] [facility][NOTE 3] [id number] [address] [place] [id number] Nov, IMMUNIZATIONS No Known Immunizations SOCIAL HISTORY Never Assessed REASON FOR VISIT medication refill PLAN OF CARE VITAL SIGNS MEDICATIONS Medication Instructions Dosage Frequency Start Date End Date Duration S tat Norvasc 10 MG Orally Once a day 1 tablet 24h 30 days Active RESULTS No Results PROCEDURES No Known procedures INSTRUCTIONS MEDICATIONS ADMINISTERED No Known Medications MEDICAL (GENERAL) HISTORY Type Description Date Medical History GERD Medical History hypertension Medical History 1999 mild stroke syndrome- C T head 02/2015 showed chronic ischemic changes Medical History chronic neck and back pain Medical History [place] x's 2 1996 and 2011 Medical History [...] Barretts Esophagus dx 2018 Surgical History carotid endarterectomy, left side of nec k 02/2015 Surgical History coronary angiography Dr Mane thakur [facility]- normal EF, LV function,-minimal RCA blockage <20% 1996 Surgical History EGD-[facility]Makdisi [facility]ly[facility]-mild erosive esophagitis, mild nonspecific bulbar duodenitis 1996 Surgical History carotid endarterectomy, right- [facility] 01/14 015 Surgical History Heart cath with [facility] 2013 Surgical History Colonoscopy- tubular adenoma , hyperplastic polyp- repeat Colonoscopy 12/2016 Hospitalization History heart attack 1996 Hospitalization History slurred speech, fever, left arm pain [facility] February 2015 Hospitalization History Pancreatitis 12/2015
--- OUTSIDE RECORDS SUMMARY | 2020-04-06 06:58 | XMS REPORT ---
Author Author Jermaine ORELLANA Organization [facility] Address [address] [place] [address] Care Team Providers Care Ct Scan Tech Name Role Phone NAEL ORELLANA Unavailable PROBLEMS Type Condition ICD9-CM Code RTG45-RT Code Onset Dates Condition S tatus SNOMED Code Problem Gastroesophageal reflux disease without esophagitis K21.9 Active 123534449 Problem Bilateral carotid artery disease I77.9 Active 003013308 Problem Claudication of both lower extremities I73.9 Active 334435511 Problem Mixed hyperlipidemia E78.2 Active 959345581 Problem Peripheral arterial disease I73.9 Ac tive 910567071 Problem Chronic obstructive pulmonary disease, unspecified COPD ty pe J44.9 Active 64965206 Problem PAD (peripheral artery disease) I73.9 Active 899679225 Problem Claudication I73.9 Active 7058476 6 Problem Non-rheumatic mitral regurgitation I34.0 Active 193766919 Problem Tobacco abuse Z72.0 Active 750339 05 Problem Benign essential hypertension I10 Active 2114004 Problem Hyperlipemia E78.5 Active 5954623 4 Problem Chronic bronchitis J42 Active 6 7405977 Problem Diverticulosis of intestine without bleeding, unspecified intestinal tract location K57.90 Active 87440935 Problem Abdominal bloating R14.0 Active 1 65051138 Problem Chronic pain G89.29 Active 6442825 1 Problem Fatty liver K76.0 Active 76534291 7 Problem CAD (coronary artery disease) I25.10 Active 72819289 Problem COPD (chronic obstructive pulmonary disease) wit h chronic bronchitis J44.9 Active 286083113 ALLERGIES No Information ENCOUNTERS Encounter Location Date Diagnosis [facility] [address] [id number] [place] [id number] Jun, [facility] [address] [id number], [place] [id number] Jun, [facility] [address] [id number][place] [id number] May, [facility] [address] [id number], [place] [id number] May, COPD (chronic obstructive pulmonary dise ase) with chronic bronchitis J44.9 ; Tobacco abuse Z72.0 and Tobacco abuse counseling Z71.6 [facility] [address] [id number], [place] [id number] Apr, CAD (coronary artery disease) I25.10 [facility] [address] [id number], [place] [id number] Mar, Peripheral arterial disease I73.9 [facility] [address] [employer] [id number], [place] [id number] February, Chronic pain G89.29 ; Hyperlipemia E78.5 and Benign essential hypertension I10 [facility] [address] [employer] [id number], [place] [id number] Jan, COPD (chronic obstructive pulmonary dise ase) with chronic bronchitis J44.9 [facility] [address] [employer] [employer] [id number], [place] [id number] Jan, [facility] [address] [id number], [place] [id number] Jan, Peripheral arterial disease I73.9 ; Carlo gn essential hypertension I10 ; Bilateral carotid artery disease I77.9 ; Claudication of both lower extremities I73.9 ; Mixed hyperlipidemia E78.2 ; Tobacco use Z72.0 and Non- rheumatic mitral regurgitation I34.0 [facility] [address] [id number], [place] [id number] Jan, RUQ pain R10.11 ; Gastroesophageal reflu x disease without esophagitis K21.9 and Change in stool R19.5 [facility] [address] [id number], [place] [id number] Jan, [facility] [address] [id number], [place] [id number] Jan, Neck pain M54.2 ; Benign essential hyper tension I10 ; COPD (chronic obstructive pulmonary disease) with chronic bronchitis J44.9 and Chronic obstructive pulmonary disease, unspecified COPD type J44.9 [facility] [address] [id number], [place] [id number] Jan, Chronic obstructive pulmonary disease, u nspecified COPD type J44.9 [facility] [address] [id number], [place] [id number] Dec, [facility] [id number], [place] [id number] Dec, [facility] [id number], [place] [id number] Dec, COPD (chronic obstructive pulmonary dise ase) with chronic bronchitis J44.9 [facility] [address] [facility] [id number] [address] [place] [address] Dec, [facility] [address] [facility] [id number] [address] [place] [address] Dec, [facility] [address] [id number], [place] [id number] Nov, [facility] [address] [id number], [place] [id number] Nov, Benign essential hypertension I10 and CO PD (chronic obstructive pulmonary disease) with chronic bronchitis J44.9 [facility] [address] [id number], [place] [id number] Nov, Hyperlipemia E78.5 ; Benign essential hy pertension I10 ; COPD (chronic obstructive pulmonary disease) with chronic bronchitis J44.9 ; Encounter for immunization Z23 ; Gastroesophageal reflux disease without esophagitis K21.9 and Chronic pain G89.29 [facility] [facility] [id number], [place] [id number] Oct, COPD (chronic obstructive pulmonary dise ase) with chronic bronchitis J44.9 and Chronic obstructive pulmonary disease, unspecified COPD type J44.9 [facility] [address] [id number] [place] [id number] Oct, COPD (chronic obstructive pulmonary dise ase) with chronic bronchitis J44.9 and Chronic obstructive pulmonary disease, unspecified COPD type J44.9 [facility] [address] [id number] [place] [id number] Oct, COPD (chronic obstructive pulmonary dise ase) with chronic bronchitis J44.9 and Chronic obstructive pulmonary disease, unspecified COPD type J44.9 [facility]amaK [address] [id number], [place] [id number] Oct, Benign essential hypertension I10 and Ne ck pain M54.2 [facility] [address] [id number], [place] [id number] Sep, PAD (peripheral artery disease) I73.9 ; Claudication of both lower extremities I73.9 ; Bilateral carotid artery disease I77.9 ; Benign essential hypertension I10 ; Hyperlipemia E78.5 and Dyspnea on exertion R06.09 [facility] [facility] [id number], [place] [id number] Aug, Benign essential hypertension I10 ; Vannessa roesophageal reflux disease without esophagitis K21.9 and Cervical radiculopathy M54.12 [facility] [facility] [id number], [place] [id number] Aug, Gastroesophageal reflux disease without esophagitis K21.9 [facility] [address] [id number], [place] [id number] Aug, COPD (chronic obstructive pulmonary dise ase) with chronic bronchitis J44.9 [facility] SERVICESZoomoramaK [address] [id number] [place] [address] Jul, [facility] [address] [id number], [place] [id number] Jul, Benign essential hypertension I10 [facility] [id number], [place] [id number] Jul, [facility] [id number] [place] [id number] Jul, COPD (chronic obstructive pulmonary dise ase) with chronic bronchitis J44.9 [facility] [address] [id number] [place] [address]04[address] Jul, Neck pain M54.2 [facility] [address] [id number] [place] [address] Jun, Claudication of both lower extremities I 73.9 ; PAD (peripheral artery disease) I73.9 ; Bilateral carotid artery disease I77.9 ; CAD (coronary artery disease) I25.10 ; Tobacco abuse Z72.0 ; Benign essential hypertension I10 ; Hyperlipemia E78.5 and Non-rheumatic mitral valve stenosis I34.2 [facility] [address] [id number] [place] [id number] Jun, Chronic obstructive pulmonary disease, u nspecified COPD type J44.9 [facility] [address] [id number], [place] [id number] May, [facility] [address] [id number], [place] [id number] May, Chronic obstructive pulmonary disease, u nspecified COPD type J44.9 [facility] [address] [id number], [place] [address]45265757 May, Neck pain M54.2 ; Chronic obstructive pu lmonary disease, unspecified COPD type J44.9 and Cervical radiculopathy M54.12 [facility] [address] [id number] [place] [address] May, [facility] [address] [id number] [place] [address] Apr, [facility] [address] [id number], [place] 612822362 Apr, Gastroesophageal reflux disease without esophagitis K21.9 [facility] [address] [id number], [place] [address]96161490 Apr, COPD (chronic obstructive pulmonary dise ase) with chronic bronchitis J44.[address] [facility] [address] [id number] [place] [id number] Apr, [facility] [address] [id number] [place] [id number] Apr, [facility] [address] [id number] [place] [id number] Apr, COPD (chronic obstructive pulmonary dise ase) with chronic bronchitis J44.9 ; Benign essential hypertension I10 ; Tobacco abuse counseling Z71.6 and Hyperlipemia E78.[address] [facility] [address] [id number] [place] 518[address]171 February, COPD (chronic obstructive pulmonary dise ase) with chronic bronchitis J44.[address] [facility] [address] [id number], [place] [id number] Jan, [facility] [address] [id number], [place] [id number] Jan, COPD (chronic obstructive pulmonary dise ase) with chronic bronchitis J44.[address] [facility] [address] [id number], [place] 657412183 Oct, COPD (chronic obstructive pulmonary dise ase) with chronic bronchitis J44.[address] [facility] [address] [id number], [place] [id number] Oct, Winter itch L29.[address] [facility] [address] [id number], [place] [id number] Oct, COPD (chronic obstructive pulmonary dise ase) with chronic bronchitis J44.9 ; Benign essential hypertension I10 ; Tobacco abuse Z72.0 and Gastroesophageal reflux disease without esophagitis K21.[address] [facility] [address] [id number] [place] [id number] Sep, Benign essential hypertension I[address] [facility] [address] [id number] [place] [id number] Aug, [facility] [address] [id number], [place] [id number] Jul, [facility] [address] [place] [address] AVE [id number], [place] [id number] Apr, [facility] [address] [place] [address] AVE [id number], [place] [id number] Apr, Abdominal bloating R14.0 ; Fatty liver K 76.0 ; Diverticulosis of intestine without bleeding, unspecified intestinal tract location K57.90 ; Chronic obstructive pulmonary disease, unspecified COPD type J44.9 and Benign essential hypertension I10 [facility]ICESTruliMCINTOSH[address] [place] [address] AVE [id number], [place] [id number] Apr, Mild early onset dysthymic disorder, in partial remission, with melancholic features, 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 [facility] [address] [place] [address] AVE [id number], [place] [id number] Mar, Abdominal muscle strain, initial encount er S39.011A [facility] [address] [place] [address] AVE [id number], [place] [id number] Jan, Pancreatitis K85.9 ; Abdominal bloating R14.0 ; Chronic bronchitis J42 and Chronic pain G89.29 [facility] [employer] [place] [address] AVE [id number], [place] [id number] Nov, [facility] SERVICESZoomoramaAv [address] [employer] [place] [address] AVE [id number], [place] [id number] Nov, [facility] [employer] [place] [address] AVE [id number], [place] [id number] Nov, Chronic bronchitis J42 ; Tobacco abuse Z 72.0 and Tobacco abuse counseling Z71.6 [facility] [address] [id number], [place] [id number] Oct, [facility] [employer] [place] [address] AVE [id number], [place] [id number] Oct, Chronic bronchitis J42 ; Tobacco abuse Z 72.0 and Benign essential hypertension I10 [facility] [employer] [place] [address] AVE [id number], [place] [id number] Oct, Chronic bronchitis J42 ; Tobacco abuse Z 72.0 ; Tobacco abuse counseling Z71.6 ; Benign essential hypertension I10 and Hyperlipemia E78.5 [facility] [address] [id number] [address] [place] [address] Sep, [facility] [address] [facility] [id number] [place] [address] [id number] Jul, [facility] [address] [id number] [address] [place] [address] Jul, Essential (primary) hyperten aida I10 [place] [address] [id number] [address] [place] [address] Jul, [facility] [address] [place] [address] AVE [id number], [place] [id number] Jul, [facility] [address] [place] [address] [id number] [place] [address] [id number] Jun, Benign essential hypertension 401.1 ; Ge neralized edema 782.3 ; Chronic pain 338.29 and Hyperlipemia 272.[address] [id number], [place] [id number] May, Upper respiratory infection 465.9 and Co ugh 786.[address] [id number], [place] [id number] Mar, Upper respiratory infection 465.9 ; 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 and Cough 786.[address] [id number], [place] [id number] February, [address] [id number], [place] [id number] February, Status post bilateral carotid endarterec vito V45.89 ; CAD (coronary artery disease) 414.00 ; Benign essential hypertension 401.1 ; Hyperlipemia 272.4 ; Tobacco abuse 305.1 ; Tobacco abuse counseling V65.42 and Chronic bronchitis 491.9 [facility] [address] [id number] [address] [place] [address], [place] [address] 14 Jan, 2015 [facility] [address] [id number] [address] [place] [address], [place] [address] 13 Jan, 2015 [facility] [address] [id number] [address] [place] [address], [place] [address] Dec, [facility] [address] [id number] [address] [place] [address], [place] [address] Dec, [facility] [address] [id number] [address] [place] [address], [place] [address] Nov, [facility] [address] [id number] [address] [place] [address], [place] [address] Nov, 2014 [facility] [address] [id number] [address] [place] [address], [place] [address] Nov, 2014 [facility] [address] [id number] [address] [place] [address], [place] [address] Nov, 2014 [facility] [address] [id number] [address] [place] [address], [place] [address] Nov, [facility] [address] [id number] [address] [place] [address], [place] [address] Nov, [facility] [address] [id number] [address] [place] [address], [place] [address] Nov, [facility] [address] [id number] [address] [place] [address], [place] [address] Nov, [facility] [address] [id number] [address] [place] [address], [place] [address] Nov, [facility] [address] [id number] [address] [place] [address], [place] [address] Oct, [facility] [address] [id number] [address] [place] [address], [place] [address] Oct, [facility] [address] [id number] [address] [place] [address], [place] [address] Oct, [facility] [address] [id number] [address] [place] [address], [place] [address] Oct, [facility] [address] [id number] [address] [place] [address], [place] [address] Oct, [facility] [address] [id number] [address] [place] [address], [place] [address] Oct, [facility] [address] [id number] [address] [place] [address], [place] [address] Oct, [facility] [address] [id number] [address] [place] [address], [place] [address] Oct, [facility] [address] [id number] [address] [place] [address], [place] [address] Oct, [facility] [address] [id number] [address] [place] [address], [place] [address] Oct, [facility] [address] [id number] [place] [id number] Oct, [facility] [address] [id number] [address] [place] [address], [place] [address] Oct, [facility] [address] [id number] [address] [place] [address], [place] [address] Sep, [facility] [address] [id number] [address] [place] [address], [place] [address] Sep, [facility] [address] [id number] [address] [place] [address], [place] [address] Aug, [facility] [address] [id number] [address] [place] [address], [place] [address] Aug, [facility] [address] [id number] [address] [place] [address], [place] [address] Aug, [facility] [address] [id number] [address] [place] [address], [place] [address] Aug, [facility] [address] [id number] [address] [place] [address], [place] [address] Jul, [facility] [address] [id number] [address] [place] [address], [place] [address] Jul, [facility] [address] [id number] [address] [place] [address], [place] [address] Jun, [facility] [address] [id number] [address] [place] [address], [place] [address] Jun, [facility] [address] [id number] [address] [place] [address], [place] [address] May, [facility] [address] [id number] [address] [place] [address], [place] [address] May, [facility] [address] [id number] [address] [place] [address], [place] [address] May, [facility] [address] [id number] [address] [place] [address], [place] [address] May, [facility] [address] [id number] [address] [place] [address], [place] [address] Jan, [facility] [address] [id number] [address] [place] [address], [place] [address] Jan, [facility] [address] [id number] [address] [place] [address], [place] [address] Nov, [facility] [address] [id number] [address] [place] [address], [place] [address] Nov, [facility] [address] [id number] [address] [place] [address], [place] [address] Nov, [facility] [address] [id number] [address] [place] [address], [place] [address] Nov, [facility] [address] [id number] [address] [place] [address], [place] [address] Nov, [facility] [address] [id number] [address] [place] [address], [place] [address] Nov, [facility] [address] [id number] [facility] [address] Nov, [facility] [address] [id number] [address] [place] [address], [place] [address] Nov, [facility] [address] [id number] [address] [place] [address], [place] [address] Nov, [facility] [address] [id number] [address] [place] [address], [place] [address] Nov, [facility] [address] [id number] [address] [place] [address], [place] [address] Oct, [facility] [address] [id number] [address] [place] [address], [place] [address] Oct, [facility] [address] [id number] [address] [place] [address], [place] [address] Oct, [facility] [address] [id number] [address] [place] [address], [place] [address] Oct, [facility] [address] [id number] [address] [place] [address], [place] [address] Sep, [facility] [address] [id number] [address] [place] [address], [place] [address] Sep, [facility] [address] [id number] [address] [place] [address], [place] [address] Aug, [facility] [address] [id number] [address] [place] [address], [place] [address] Aug, [facility] [address] [id number] [address] [place] [address], [place] [address] Aug, [facility] [address] [id number] [address] [place] [address], [place] [address] Aug, [facility] [address] [id number] [address] [place] [address], [place] [address] Aug, [facility] [address] [id number] [address] [place] [address], [place] [address] Aug, [facility] [address] [id number] [address] [place] [address], [place] [id number] Aug, [facility] [address] [id number] [address] [place] [address], [place] [id number] Aug, [facility] [address] [id number] [address] [place] [address], [place] [address] Jul, [facility] [address] [id number] [address] [place] [address], [place] [address] Jul, [facility] [address] [id number] [address] [place] [address], [place] [id number] Jul, [facility] [address] [id number] [address] [place] [address], [place] [address] Jul, [facility] [address] [id number] [address] [place] [address], [place] [address] Jul, [facility] [address] [id number] [address] [place] [address], [place] [address] Jun, [facility] [address] [id number] [address] [place] [address], [place] [address] May, [facility] [address] [id number] [address] [place] [address], [place] [address] Apr, [facility] [address] [id number] [address] [place] [address], [place] [address] February, [facility] [address] [id number] [address] [place] [address], [place] [address] Jan, [facility] [address] [id number] [address] [place] [address], [place] [address] Jan, [facility] [address] [id number] [address] [place] [address], [place] [address] Dec, [facility] [address] [id number] [address] [place] [address], [place] [address] Dec, [facility] [address] [facility] [id number] [address] [place] [id number] Dec, [facility] [address] [facility] [id number] [address] [place] [id number] Nov, [facility] [address] [facility] [id number] [address] [place] [id number] Nov, [facility] [address] [facility] [id number] [address] [place] [phone] Nov, [facility] [address] [facility] [id number] [address] [place] [phone] Nov, IMMUNIZATIONS No Known Immunizations SOCIAL HISTORY Never Assessed REASON FOR VISIT Blood pressure check PLAN OF CARE VITAL SIGNS Height 62 in 2018-04-30 Blood pressure systolic 102 mmHg 2018-04-30 Blood pressure diastolic 60 mmHg 2018-04-30 MEDICATIONS Unknown Medications RESULTS No Results PROCEDURES No Known procedures INSTRUCTIONS MEDICATIONS ADMINISTERED No Known Medications MEDICAL (GENERAL) HISTORY Type Description Date Medical History GERD Medical History hypertension Medical History 1999 mild stroke syndrome- C T head 02/2015 showed chronic ischemic changes Medical History chronic neck and back pain Medical History ME x's 2 1996 and 2011 Medical History [...] 02/[address] [facility] [place] function,-minimal RCA blockage <20% 1996 Surgical History EGD-Dr.Makdisi Sharp-mild erosive esophagitis, mild nonspecific bulbar duodenitis 1996 Surgical History carotid endarterectomy, right- [facility] 01/14 015 Surgical History Heart cath with [facility] 2013 Surgical History Colonoscopy- tubular adenoma , hyperplastic polyp- repeat Colonoscopy 12/2016 Hospitalization History heart attack 1996 Hospitalization History slurred speech, fever, left arm pain [facility] [place] February 2015 Hospitalization History Pancreatitis 12/2015
--- OUTSIDE RECORDS SUMMARY | 2020-04-06 06:58 | XMS REPORT ---
Author Author Jermaine CAMPOS Organization [facility] Address [address] [place] [address] Care Team Providers Care Pit Steward Name Role Phone TIFFANIE CAMPOS Unavailable PROBLEMS Type Condition ICD9-CM Code LDH42-QZ Code Onset Dates Condition S tatus SNOMED Code Problem Gastroesophageal reflux disease without esophagitis K21.9 Active 895937608 Problem Bilateral carotid artery disease I77.9 Active 595186728 Problem Claudication of both lower extremities I73.9 Active 070361065 Problem Mixed hyperlipidemia E78.2 Active 650331652 Problem Peripheral arterial disease I73.9 Ac tive 154985434 Problem Chronic obstructive pulmonary disease, unspecified COPD ty pe J44.9 Active 47239462 Problem PAD (peripheral artery disease) I73.9 Active 700552836 Problem Claudication I73.9 Active 8236112 6 Problem Non-rheumatic mitral regurgitation I34.0 Active 006171144 Problem Tobacco abuse Z72.0 Active 873137 05 Problem Benign essential hypertension I10 Active 3472871 Problem Hyperlipemia E78.5 Active 5187328 4 Problem Chronic bronchitis J42 Active 6 4882932 Problem Diverticulosis of intestine without bleeding, unspecified intestinal tract location K57.90 Active 85367265 Problem Abdominal bloating R14.0 Active 1 61271220 Problem Chronic pain G89.29 Active 6263078 1 Problem Fatty liver K76.0 Active 63425571 7 Problem CAD (coronary artery disease) I25.10 Active 62356534 Problem COPD (chronic obstructive pulmonary disease) wit h chronic bronchitis J44.9 Active 949691573 ALLERGIES No Information ENCOUNTERS Encounter Location Date Diagnosis [facility] [address] [id number] [place], [place] [id number] May, [address] [id number], [place] [id number] May, COPD (chronic obstructive pulmonary dise ase) with chronic bronchitis J44.9 ; Tobacco abuse Z72.0 and Tobacco abuse counseling Z71.6 [facility] [address] [place] [address] AVE [id number], [place] [id number] Apr, CAD (coronary artery disease) I25.10 [facility] [address] [address] [place] [address] AVE [id number], [place] [id number] Mar, Peripheral arterial disease I73.9 [facility] [address] [place] [address] AVE [id number], [place] [id number] February, Chronic pain G89.29 ; Hyperlipemia E78.5 and Benign essential hypertension I10 [facility] [address] [place] [address] AVE [id number], [place] [id number] Jan, COPD (chronic obstructive pulmonary dise ase) with chronic bronchitis J44.9 [facility] [employer] [place] [address] AVE [id number], [place] [id number] Jan, [facility] [address] [place] [address] AVE [id number], [place] [id number] Jan, Peripheral arterial disease I73.9 ; Carlo gn essential hypertension I10 ; Bilateral carotid artery disease I77.9 ; Claudication of both lower extremities I73.9 ; Mixed hyperlipidemia E78.2 ; Tobacco use Z72.0 and Non- rheumatic mitral regurgitation I34.0 [facility] [employer] [address] [place] [address] AVE [id number], [place] [address]3218[address] Jan, RUQ pain R10.11 ; Gastroesophageal reflu x disease without esophagitis K21.9 and Change in stool R19.5 [facility] [employer] [place] [address] [address] [id number], [place] [id number] Jan, [facility] [address] [employer] [address] [id number], [place] [address]34[address] Jan, Neck pain M54.2 ; Benign essential hyper tension I10 ; COPD (chronic obstructive pulmonary disease) with chronic bronchitis J44.9 and Chronic obstructive pulmonary disease, unspecified COPD type J44.9 [facility] [address] [address] [id number] [place] [phone] Jan, Chronic obstructive pulmonary disease, u nspecified COPD type J44.9 [facility] [address] [id number] [place] [id number] Dec, [facility] [address] [id number], [place] [id number] Dec, [facility] [address] [id number], [place] [id number] Dec, COPD (chronic obstructive pulmonary dise ase) with chronic bronchitis J44.9 [facility] [address] [facility] [id number] [place], [place] [address] Dec, [facility] [address] [facility] [id number] [address] [place] [address] Dec, [facility] [address] [id number], [place] [id number] Nov, [facility] [address] [id number], [place] [id number] Nov, Benign essential hypertension I10 and CO PD (chronic obstructive pulmonary disease) with chronic bronchitis J44.9 [facility] [address] [id number], [place] [id number] Nov, Hyperlipemia E78.5 ; Benign essential hy pertension I10 ; COPD (chronic obstructive pulmonary disease) with chronic bronchitis J44.9 ; Encounter for immunization Z23 ; Gastroesophageal reflux disease without esophagitis K21.9 and Chronic pain G89.29 [facility] [address] [facility] [address] [id number], [place] [id number] Oct, COPD (chronic obstructive pulmonary dise ase) with chronic bronchitis J44.9 and Chronic obstructive pulmonary disease, unspecified COPD type J44.9 [facility] [address] [id number], [place] [id number] Oct, COPD (chronic obstructive pulmonary dise ase) with chronic bronchitis J44.9 and Chronic obstructive pulmonary disease, unspecified COPD type J44.[address] [facility] [address] [id number] [place] [address] Oct, COPD (chronic obstructive pulmonary dise ase) with chronic bronchitis J44.9 and Chronic obstructive pulmonary disease, unspecified COPD type J44.9 [facility] [address] [id number] [place] [id number] Oct, Benign essential hypertension I10 and Ne ck pain M54.2 [facility] [address] [id number], [place] [id number] Sep, PAD (peripheral artery disease) I73.9 ; Claudication of both lower extremities I73.9 ; Bilateral carotid artery disease I77.9 ; Benign essential hypertension I10 ; Hyperlipemia E78.5 and Dyspnea on exertion R06.09 [facility] [address] [id number], [place] [address] Aug, Benign essential hypertension I10 ; Vannessa roesophageal reflux disease without esophagitis K21.9 and Cervical radiculopathy M54.12 [facility] [address] [id number], [place] [address] Aug, Gastroesophageal reflux disease without esophagitis K21.9 [facility] [address] [id number], [place] [address]896242 Aug, COPD (chronic obstructive pulmonary dise ase) with chronic bronchitis J44.9 [facility] [address] [id number], [place] [id number] Jul, [facility] [address] [id number], [place] [id number] Jul, Benign essential hypertension I10 [facility] [address] [id number], [place] [id number] Jul, [facility] [address] [id number], [place] [address]3360 Jul, COPD (chronic obstructive pulmonary dise ase) with chronic bronchitis J44.9 [facility] [address] [id number], [place] [id number] Jul, Neck pain M54.2 [facility] [address] [id number] [place] [id number] Jun, Claudication of both lower extremities I 73.9 ; PAD (peripheral artery disease) I73.9 ; Bilateral carotid artery disease I77.9 ; CAD (coronary artery disease) I25.10 ; Tobacco abuse Z72.0 ; Benign essential hypertension I10 ; Hyperlipemia E78.5 and Non-rheumatic mitral valve stenosis I34.2 [employer] [address] [id number] [place] [address] Jun, Chronic obstructive pulmonary disease, u nspecified COPD type J44.9 [employer] [address] [id number] [place], [place] [address] May, [employer] [address] [id number], [place] 953189930 May, Chronic obstructive pulmonary disease, u nspecified COPD type J44.9 [facility] [address] [id number], [place] 509504526 May, Neck pain M54.2 ; Chronic obstructive pu lmonary disease, unspecified COPD type J44.9 and Cervical radiculopathy M54.12 [facility] [address] [id number], [place] 944672922 May, [employer] [address] [id number], [place] 833358829 Apr, [facility] [address] [id number] [place], [place] [id number] Apr, Gastroesophageal reflux disease without esophagitis K21.9 [employer] [address] [id number], [place] [id number] Apr, COPD (chronic obstructive pulmonary dise ase) with chronic bronchitis J44.9 [facility] [address] [id number], [place] 639492605 Apr, [employer] [address] [id number] [place] [phone] Apr, [facility] [address] [id number] [place] 8[address] Apr, COPD (chronic obstructive pulmonary dise ase) with chronic bronchitis J44.9 ; Benign essential hypertension I10 ; Tobacco abuse counseling Z71.6 and Hyperlipemia E78.[address] [facility] [address] [id number] [place] [address] February, COPD (chronic obstructive pulmonary dise ase) with chronic bronchitis J44.[address] [facility] [address] [id number] [place] [address]39[address] Jan, [facility] [address] [id number] [place] [phone] Jan, COPD (chronic obstructive pulmonary dise ase) with chronic bronchitis J44.[address] [facility] [address] [id number] [place] [address]59[address] Oct, COPD (chronic obstructive pulmonary dise ase) with chronic bronchitis J44.[address] [facility] [address] [id number] [place] [id number] Oct, Winter itch L29.[address] [facility] [address] [id number] [place] [address] Oct, COPD (chronic obstructive pulmonary dise ase) with chronic bronchitis J44.9 ; Benign essential hypertension I10 ; Tobacco abuse Z72.0 and Gastroesophageal reflux disease without esophagitis K21.[address] [facility] [address] [id number] [place] [id number] Sep, Benign essential hypertension I10 [facility] [address] [id number] [place] [address] Aug, [facility] [address] [id number] [place] [address]18358580 Jul, [facility] [address] [id number] [place] [id number] Apr, [facility] [address] [id number], [place] [id number] Apr, Abdominal bloating R14.0 ; Fatty liver K 76.0 ; Diverticulosis of intestine without bleeding, unspecified intestinal tract location K57.90 ; Chronic obstructive pulmonary disease, unspecified COPD type J44.9 and Benign essential hypertension I10 [facility] BERNARD Sanchez[address] [facility] [address] [id number], [place] [id number] Apr, Mild early onset dysthymic disorder, in partial remission, with melancholic features, 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 [facility] [address] [id number], [place] [id number] Mar, Abdominal muscle strain, initial encount er S39.011A [facility] [address] [id number], [place] 786226959 Jan, Pancreatitis K85.9 ; Abdominal bloating R14.0 ; Chronic bronchitis J42 and Chronic pain G89.29 [facility] [address] [place] [address] AVE [id number], [place] [id number] Nov, [facility] [employer] [address] [id number], [place] [id number] Nov, [facility] [address] [place] [address] AV [id number], [place] [id number] Nov, Chronic bronchitis J42 ; Tobacco abuse Z 72.0 and Tobacco abuse counseling Z71.6 [facility] [address] [place] [address] AVE [id number], [place] [id number] Oct, [facility] [employer] [address] [place] [address] AVE [id number], [place] [id number] Oct, Chronic bronchitis J42 ; Tobacco abuse Z 72.0 and Benign essential hypertension I10 [facility] [address] [place] [address] AVE [id number], [place] 580236596 Oct, Chronic bronchitis J42 ; Tobacco abuse Z 72.0 ; Tobacco abuse counseling Z71.6 ; Benign essential hypertension I10 and Hyperlipemia E78.[address] [id number] [address] [place] [address] Sep, [facility] [address] [id number], [place] [id number] Jul, [facility] [address] [facility] [id number] [address] [place] [address] Jul, Essential (primary) hyperten aida I10 [facility] [address] [facility] [id number] [address] [place] [address] Jul, [facility] [id number] [place] [id number] Jul, [facility] [id number] [place] [address] [id number] Jun, Benign essential hypertension 401.1 ; Ge neralized edema 782.3 ; Chronic pain 338.29 and Hyperlipemia 272.[address] [facility] [id number] [place] [address] [id number] May, Upper respiratory infection 465.9 and Co ugh 786.2 [facility] [id number] [place] [address] [id number] Mar, Upper respiratory infection 465.9 ; 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 and Cough 786.[address] [facility] [address] [id number], [place] [id number] February, [facility] [id number] [place] [address] [id number] February, Status post bilateral carotid endarterec vito V45.89 ; CAD (coronary artery disease) 414.00 ; Benign essential hypertension 401.1 ; Hyperlipemia 272.4 ; Tobacco abuse 305.1 ; Tobacco abuse counseling V65.42 and Chronic bronchitis 491.9 [facility] [address] [facility] [id number] [address] [place] [address] Jan, [facility] [address] [facility] [id number] [address] [place] [address] Jan, [facility] [address] [id number] [address] [place] [address], [place] [address] Dec, [facility] [address] [id number] [address] [place] [address], [place] [address] Dec, [facility] [address] [id number] [address] [place] [address], [place] [address] Nov, 2014 [facility] [address] [id number] [address] [place] [address], [place] [address] Nov, 2014 [facility] [address] [id number] [address] [place] [address], [place] [address] Nov, 2014 [facility] [address] [id number] [address] [place] [address], [place] [address] Nov, [facility] [address] [id number] [address] [place] [address], [place] [address] Nov, 2014 [facility] [address] [id number] [address] [place] [address], [place] [address] Nov, 2014 [facility] [address] [id number] [address] [place] [address], [place] [address] Nov, [facility] [address] [id number] [address] [place] [address], [place] [address] Nov, [facility] [address] [id number] [address] [place] [address] Nov, [facility] [address] [id number] [address] [place] [address] Oct, [facility] [address] [id number] [address] [place] [address], [place] [address] Oct, [facility] [address] [id number] [address] [place] [address] Oct, [facility] [address] [id number] [address] [place] [address] Oct, [facility] [address] [id number] [address] [place] [address] Oct, [facility] [address] [id number] [address] [place] [address], [place] [address] Oct, [facility] [address] [id number] [address] [place] [address], [place] [address] Oct, [facility] [address] [id number] [address] [place] [address], [place] [address] Oct, [facility] [address] [id number] [address] [place] [address], [place] [address] Oct, [facility] [address] [id number] [address] [place] [address], [place] [address] Oct, [facility] [address] [id number] [place] [id number] Oct, [facility] [address] [id number] [address] [place] [address], [place] [address] Oct, [facility] [address] [id number] [address] [place] [address], [place] [address] Sep, [facility] [address] [id number] [address] [place] [address], [place] [address] Sep, [facility] [address] [id number] [address] [place] [address], [place] [address] Aug, [facility] [address] [id number] [address] [place] [address], [place] [address] Aug, [facility] [address] [id number] [address] [place] [address], [place] [address] Aug, [facility] [address] [id number] [address] [place] [address], [place] [address] Aug, [facility] [address] [id number] [address] [place] [address], [place] [address] Jul, [facility] [address] [id number] [address] [place] [address], [place] [address] Jul, [facility] [address] [id number] [address] [place] [address], [place] [address] Jun, [facility] [address] [id number] [address] [place] [address], [place] [address] Jun, [facility] [address] [id number] [address] [place] [address], [place] [address] May, [facility] [address] [id number] [address] [place] [address], [place] [address] May, [facility] [address] [id number] [address] [place] [address], [place] [address] May, [facility] [address] [id number] [address] [place] [address], [place] [address] May, [facility] [address] [id number] [address] [place] [address], [place] [address] Jan, [facility] [address] [id number] [address] [place] [address], [place] [address] Jan, [facility] [address] [id number] [address] [place] [address], [place] [address] Nov, [facility] [address] [id number] [address] [place] [address], [place] [address] Nov, [facility] [address] [id number] [address] [place] [address], [place] [address] Nov, [facility] [address] [id number] [address] [place] [address], [place] [address] Nov, [facility] [address] [id number] [address] [place] [address], [place] [address] Nov, [facility] [address] [id number] [address] [place] [address], [place] [address] Nov, [facility] [address] [id number] [address] [place] [address], [place] [address] Nov, [facility] [address] [id number] [place] [address] Nov, [facility] [address] [id number] [address] [place] [address], [place] [address] Nov, [facility] [address] [id number] [address] [place] [address], [place] [address] Nov, [facility] [address] [id number] [address] [place] [address], [place] [address] Oct, [facility] [address] [id number] [address] [place] [address], [place] [address] Oct, [facility] [address] [id number] [address] [place] [address], [place] [address] Oct, [facility] [address] [id number] [address] [place] [address], [place] [address] Oct, [facility] [address] [id number] [address] [place] [address], [place] [address] Sep, [facility] [address] [id number] [address] [place] [address], [place] [address] Sep, [facility] [address] [id number] [address] [place] [address], [place] [address] Aug, [facility] [address] [id number] [address] [place] [address], [place] [address] Aug, [facility] [address] [id number] [address] [place] [address], [place] [address] Aug, [facility] [address] [id number] [address] [place] [address] Aug, [facility] [address] [id number] [address] [place] [address], [place] [address] Aug, [facility] [address] [id number] [address] [place] [address], [place] [address] Aug, [facility] [address] [id number] [address] [place] [address], [place] [address] Aug, [facility] [address] [id number] [address] [place] [address], [place] [address] Aug, [facility] [address] [id number] [address] [place] [address], [place] [address] Jul, [facility] [address] [id number] [address] [place] [address], [place] [address] Jul, [facility] [address] [id number] [address] [place] [address], [place] [address] Jul, [facility] [address] [id number] [address] [place] [address], [place] [address] Jul, [facility] [address] [id number] [address] [place] [address], [place] [address] Jul, [facility] [address] [id number] [address] [place] [address], [place] [address] Jun, [facility] [address] [id number] [address] [place] [address], [place] [address] May, [facility] [address] [id number] [address] [place] [address], [place] [address] Apr, [facility] [address] [id number] [address] [place] [address], [place] [address] February, [facility] [address] [id number] [address] [place] [address], [place] [address] Jan, [facility] [address] [id number] [address] [place] [address], [place] [address] Jan, [facility] [address] [id number] [address] [place] [address], [place] [address] Dec, [facility] [address] [id number] [address] [place] [address], [place] [address] Dec, [facility] [address] [id number] [address] [place] [address], [place] [address] Dec, [facility] [address] [id number] 05 [place] [address], [place] [id number] Nov, [facility] [address] [facility] [id number] [address] [place] [id number] Nov, [facility] [address] [facility] [id number] [address] [place] [id number] Nov, [facility] [address] [facility] [id number] [address] [place] [id number] Nov, IMMUNIZATIONS No Known Immunizations SOCIAL HISTORY Never Assessed REASON FOR VISIT Medication refill request PLAN OF CARE VITAL SIGNS MEDICATIONS Medication Instructions Dosage Frequency Start Date End Date Duration S tatus Celebrex 200 mg Orally Once a day 1 capsule with food 24h May, Active Crestor 20 mg Orally Once a day 1 tablet 24h Apr, 90 days Active Lisinopril 40 mg Orally Once [...] chronic neck and back pain Medical History [place] x's 2 1996 and 2011 Medical History [...] Surgical History coronary angiography Dr Mane thakur [facility]- normal EF, LV function,-minimal RCA blockage <20% 1996 [facility], mild nonspecific bulbar duodenitis 1996 Surgical History carotid endarterectomy, right- [facility] 01/14 015 Surgical History Heart cath with [facility] 2013 Surgical History Colonoscopy- tubular adenoma , hyperplastic polyp- repeat Colonoscopy 12/2016 Hospitalization History heart attack 1996 Hospitalization History slurred speech, fever, left arm pain [facility] [place] February 2015 Hospitalization History Pancreatitis 12/2015
--- OUTSIDE RECORDS SUMMARY | 2020-04-06 06:59 | XMS REPORT ---
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 Name Role Phone MARJ MCNAMARA Unavailable Unavailable PROBLEMS Type Condition ICD9-CM Code [id number] Code Onset Dates Condition S tatus SNOMED Code Problem Gastroesophageal reflux disease without esophagitis K21.9 Active 455207567 Problem Bilateral carotid artery disease I77.9 Active 823414997 Problem Claudication of both lower extremities I73.9 Active 011094773 Problem Mixed hyperlipidemia E78.2 Active 184288458 Problem Peripheral arterial disease I73.9 Ac tive 086748110 Problem Chronic obstructive pulmonary disease, unspecified COPD ty pe J44.9 Active 43447210 Problem PAD (peripheral artery disease) I73.9 Active 803232684 Problem Claudication I73.9 Active 7704230 6 Problem Non-rheumatic mitral regurgitation I34.0 Active 286378307 Problem Tobacco abuse Z72.0 Active 151843 05 Problem Benign essential hypertension I10 Active 8453051 Problem Hyperlipemia E78.5 Active 1804298 4 Problem Chronic bronchitis J42 Active 6 4913386 Problem Diverticulosis of intestine without bleeding, unspecified intestinal tract location K57.90 Active 57638365 Problem Abdominal bloating R14.0 Active 1 55824322 Problem Chronic pain G89.29 Active 8547512 1 Problem Fatty liver K76.0 Active 28902224 7 Problem CAD (coronary artery disease) I25.10 Active 34049206 Problem COPD (chronic obstructive pulmonary disease) wit h chronic bronchitis J44.9 Active 323664642 ALLERGIES No Information ENCOUNTERS Encounter Location Date Diagnosis [address] [id number] [place] [id number] May, [address] [id number] [place] [id number] Apr, CAD (coronary artery disease) I25.10 [facility] [id number] [place] [address] Mar, Peripheral arterial disease I73.9 [facility] [address] [id number] [place], [place] [address]583333[address] February, Chronic pain G89.29 ; Hyperlipemia E78.5 and Benign essential hypertension I10 [facility] [address] [id number] [place] [id number] Jan, COPD (chronic obstructive pulmonary dise ase) with chronic bronchitis J44.9 [facility] [address] [id number] [place] [address]18667[address] Jan, [facility] [address] [id number] [place], [place] [id number] Jan, Peripheral arterial disease I73.9 ; Carlo gn essential hypertension I10 ; Bilateral carotid artery disease I77.9 ; Claudication of both lower extremities I73.9 ; Mixed hyperlipidemia E78.2 ; Tobacco use Z72.0 and Non- rheumatic mitral regurgitation I34.0 [facility] [address] [id number] [place], [place] [id number] Jan, RUQ pain R10.11 ; Gastroesophageal reflu x disease without esophagitis K21.9 and Change in stool R19.5 [facility] [address] [id number] [place], [place] [id number] Jan, [facility] [address] [id number] [place] [id number] Jan, Neck pain M54.2 ; Benign essential hyper tension I10 ; COPD (chronic obstructive pulmonary disease) with chronic bronchitis J44.9 and Chronic obstructive pulmonary disease, unspecified COPD type J44.9 [facility] [address] [id number] [place], [place] [address] Jan, Chronic obstructive pulmonary disease, u nspecified COPD type J44.9 [facility] [address] [id number] [place], [place] [id number] Dec, [facility] [id number] [place], [place] [id number] Dec, [facility] [address] [place] [address] AVE [id number] [place], [place] [id number] Dec, COPD (chronic obstructive pulmonary dise ase) with chronic bronchitis J44.9 [facility] [address] [facility] [id number] 100[place] [address] Dec, [facility] [address] [facility] [id number] [address] [place] [address] Dec, [facility] [address] [place] [address] AVE [id number] [place], [place] [id number] Nov, [facility] [address] [place] [address] AVE [id number] [place] 517843200 Nov, Benign essential hypertension I10 and CO PD (chronic obstructive pulmonary disease) with chronic bronchitis J44.9 [facility] [address] [id number] [place], [place] [id number] Nov, Hyperlipemia E78.5 ; Benign essential hy pertension I10 ; COPD (chronic obstructive pulmonary disease) with chronic bronchitis J44.9 ; Encounter for immunization Z23 ; Gastroesophageal reflux disease without esophagitis K21.9 and Chronic pain G89.29 [facility] [address] [place] [address] AVE [id number] [place], [place] [id number] Oct, COPD (chronic obstructive pulmonary dise ase) with chronic bronchitis J44.9 and Chronic obstructive pulmonary disease, unspecified COPD type J44.9 [facility] [address] [id number] [place], [place] 328721290 Oct, COPD (chronic obstructive pulmonary dise ase) with chronic bronchitis J44.9 and Chronic obstructive pulmonary disease, unspecified COPD type J44.9 [facility] [address] [place] [address] AVE [id number] [place], [place] [id number] Oct, COPD (chronic obstructive pulmonary dise ase) with chronic bronchitis J44.9 and Chronic obstructive pulmonary disease, unspecified COPD type J44.9 [facility] [address] [place] [address] AVE [id number] [place], [place] 947682978 Oct, Benign essential hypertension I10 and Ne ck pain M54.2 [facility]NO[facility]K [address] [id number] [place] [id number] Sep, PAD (peripheral artery disease) I73.9 ; Claudication of both lower extremities I73.9 ; Bilateral carotid artery disease I77.9 ; Benign essential hypertension I10 ; Hyperlipemia E78.5 and Dyspnea on exertion R06.09 [facility]NO[facility]K [address] [id number] [place], [place] 811329082 Aug, Benign essential hypertension I10 ; Vannessa roesophageal reflux disease without esophagitis K21.9 and Cervical radiculopathy M54.12 [facility] [address] [id number] [place], [place] 6[address]277723 Aug, Gastroesophageal reflux disease without esophagitis K21.9 [facility] [address] [id number] [place], [place] 545304618 Aug, COPD (chronic obstructive pulmonary dise ase) with chronic bronchitis J44.9 [facility] [address] [id number] [place], [place] 279278417 Jul, [facility] [address] [id number] [place], [place] 919030731 Jul, Benign essential hypertension I10 [facility] [address] [id number] [place], [place] 793509930 Jul, [facility] [address] [id number] [place], [place] 554945340 Jul, COPD (chronic obstructive pulmonary dise ase) with chronic bronchitis J44.9 [facility] [address] [id number] [place], [place] [id number] Jul, Neck pain M54.2 [facility] [address] [id number] [place] 713066163 Jun, Claudication of both lower extremities I 73.9 ; PAD (peripheral artery disease) I73.9 ; Bilateral carotid artery disease I77.9 ; CAD (coronary artery disease) I25.10 ; Tobacco abuse Z72.0 ; Benign essential hypertension I10 ; Hyperlipemia E78.5 and Non-rheumatic mitral valve stenosis I34.[address] [facility] [address] [id number] [place] [id number] Jun, Chronic obstructive pulmonary disease, u nspecified COPD type J44.[address] [facility] [address] [id number] [place] [id number] May, [facility] [address] [address] [id number] [place] [address] May, Chronic obstructive pulmonary disease, u nspecified COPD type J44.9 [facility] [address] [id number] [place] [id number] May, Neck pain M54.2 ; Chronic obstructive pu lmonary disease, unspecified COPD type J44.9 and Cervical radiculopathy M54.[address] [facility] [address] [id number] [place] [address] May, [facility] [address] [address] [id number] [place] [id number] Apr, [facility] [address] [address] [id number] [place] [id number] Apr, Gastroesophageal reflux disease without esophagitis K21.[address] [facility] [address] [id number] [place] [id number] Apr, COPD (chronic obstructive pulmonary dise ase) with chronic bronchitis J44.[address] [facility] [address] [id number] [place] [id number] Apr, [facility] [address] [address] [id number] [place] [id number] Apr, [facility] [address] [address] [id number] [place] 31977[address] Apr, COPD (chronic obstructive pulmonary dise ase) with chronic bronchitis J44.9 ; Benign essential hypertension I10 ; Tobacco abuse counseling Z71.6 and Hyperlipemia E78.[address] [facility] [address] [id number] [place] [id number] February, COPD (chronic obstructive pulmonary dise ase) with chronic bronchitis J44.[address] [facility] [address] [id number] [place] [id number] Jan, [facility] [address] [address] [id number] [place] [id number] Jan, COPD (chronic obstructive pulmonary dise ase) with chronic bronchitis J44.[address] [facility] [address] [id number] [place] [address]6879[address] Oct, COPD (chronic obstructive pulmonary dise ase) with chronic bronchitis J44.[address] [facility] [address] [id number] [place], [place] 197050590 Oct, Winter itch L29.[address] [facility] [address] [id number] [place], [place] [id number] Oct, COPD (chronic obstructive pulmonary dise ase) with chronic bronchitis J44.9 ; Benign essential hypertension I10 ; Tobacco abuse Z72.0 and Gastroesophageal reflux disease without esophagitis K21.9 [facility] [address] [id number] [place], [place] 505863962 Sep, Benign essential hypertension I[address] [facility] [address] [id number] [place], [place] [id number] Aug, [facility] [address] [id number] [place], [place] [id number] Jul, [facility] [address] [id number] [place] [id number] Apr, [facility] [address] [id number] [place], [place] [id number] Apr, Abdominal bloating R14.0 ; Fatty liver K 76.0 ; Diverticulosis of intestine without bleeding, unspecified intestinal tract location K57.90 ; Chronic obstructive pulmonary disease, unspecified COPD type J44.9 and Benign essential hypertension I10 [facility] [id number] [place] [id number] Apr, Mild early onset dysthymic disorder, in partial remission, with melancholic features, 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 [facility] [address] [id number] [place], [place] 645050169 Mar, Abdominal muscle strain, initial encount er S39.011A [facility] [id number] [place], [place] 700309998 Jan, Pancreatitis K85.9 ; Abdominal bloating R14.0 ; Chronic bronchitis J42 and Chronic pain G89.29 [facility] [address] [place] [address] AVE [id number] [place], [place] [id number] Nov, [facility] [id number] [place] [id number] Nov, [facility] [id number] [place], [place] [id number] Nov, Chronic bronchitis J42 ; Tobacco abuse Z 72.0 and Tobacco abuse counseling Z71.6 [facility] [address] [place] [address] A[address] [id number] [place], [place] [id number] Oct, [facility] [address] [place] [address] [id number] [place] [address] [id number] Oct, Chronic bronchitis J42 ; Tobacco abuse Z 72.0 and Benign essential hypertension I10 [facility] [address] [place] [address] A[address] [id number] [place], [place] 504208610 Oct, Chronic bronchitis J42 ; Tobacco abuse Z 72.0 ; Tobacco abuse counseling Z71.6 ; Benign essential hypertension I10 [address]78[address]5 [facility] [address] [facility] [id number] [address] [place] [address] Sep, [facility] [address] [id number] [place] [id number] Jul, [facility] [address] [facility] [id number] [address] [place] [id number] Jul, Essential (primary) hyperten aida I10 [facility] [address] [facility] [id number] [address] [place] [address] Jul, [facility] [address] [id number] [place], [place] [id number] Jul, [facility] [address] [id number] [place], [place] 688650095 Jun, Benign essential hypertension 401.1 ; Ge neralized edema 782.3 ; Chronic pain 338.29 and Hyperlipemia 272.4 [facility] [address] [place] [address] A[address] [id number] [place], [place] [id number] May, Upper respiratory infection 465.9 and Co ugh 786.[address] [id number] [place], [place] [id number] Mar, Upper respiratory infection 465.9 ; 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 [address] [place] [id number] [address] [place] [address] Jan, [facility] [address] [facility] [id number] [address] [place] [phone] Jan, [facility] [address] [place] [id number] [address] [place] [address] Dec, [facility] [address] [place] [id number] [address] [place] [address] Dec, [facility] [address] [facility] [id number] [address] [place] [address] Nov, [facility] [address] [id number] [address] [place] [address], [place] [address] Nov, 2014 [facility] [place] [address] [id number] [address] [place] [address], [place] [address] Nov, 2014 [facility] [address] [id number] [address] [place] [address], [place] [address] Nov, 2014 [facility] [place] [address] [id number] [address] [place] [address], [place] [address] Nov, 2014 [facility] [address] [id number] [address] [place] [address], [place] [address] Nov, [facility] [address] [id number] [address] [place] [address], [place] [address] Nov, 2014 [facility] [address] [id number] [address] [place] [address], [place] [address] Nov, [facility] [place] [facility] [address] [id number] [address] [place] [address], [place] [address] Nov, [facility] [address] [id number] [address] [place] [address], [place] [address] Oct, [facility] [address] [id number] [address] [place] [address], [place] [address] Oct, [facility] [place] [facility] [address] [id number] [address] [place] [address], [place] [address] Oct, [facility] [place] [facility] [address] [id number] [address] [place] [address], [place] [address] Oct, [facility] [place] [facility] [address] [id number] [address] [place] [address], [place] [address] Oct, [facility] [place] [facility] [address] [id number] [address] [place] [address], [place] [address] Oct, [facility] [place] [facility] [address] [id number] [address] [place] [address], [place] [address] Oct, [facility] [place] [facility] [address] [id number] [address] [place] [address], [place] [address] Oct, [facility] [address] [id number] [address] [place] [address], [place] [address] Oct, [facility] [address] [id number] [address] [place] [address], [place] [address] Oct, [facility] [address] [id number] [place] [id number] Oct, [facility] [address] [id number] [address] [place] [address], [place] [address] Oct, [facility] [address] [id number] [address] [place] [address], [place] [address] Sep, [facility] [address] [id number] [address] [place] [address], [place] [address] Sep, [facility] [address] [id number] [address] [place] [address], [place] [address] Aug, [facility] [address] [id number] [address] [place] [address], [place] [address] Aug, [facility] [address] [id number] [address] [place] [address], [place] [address] Aug, [facility] [address] [id number] [address] [place] [address], [place] [address] Aug, [facility] [address] [id number] [address] [place] [address], [place] [address] Jul, [facility] [address] [id number] [address] [place] [address], [place] [address] Jul, [facility] [address] [id number] [address] [place] [address], [place] [address] Jun, [facility] [address] [id number] [address] [place] [address], [place] [address] Jun, [facility] [address] [id number] [address] [place] [address], [place] [address] May, [facility] [address] [id number] 100[facility] [place] [address] May, [facility] [place] [facility] [address] [id number] [address] [place] [address], [place] [address] May, [facility] [place] [facility] [address] [id number] 100[facility] [place] [address] May, [facility] [place] [facility] [address] [id number] [address] [place] [address], [place] [address] Jan, [facility] [place] [facility] [address] [id number] [address] [place] [address], [place] [address] Jan, [facility] [place] [facility] [address] [id number] [address] [place] [address], [place] [address] Nov, [facility] [place] [facility] [address] [id number] [address] [place] [address], [place] [address] Nov, [facility] [place] [facility] [address] [id number] [address] [place] [address], [place] [address] Nov, [facility] [place] [facility] [address] [id number] [address] [place] [address], [place] [address] Nov, [facility] [place] [facility] [address] [id number] [address] [place] [address], [place] [address] Nov, [facility] [place] [facility] [address] [id number] [address] [place] [address], [place] [address] Nov, [facility] [place] [facility] [address] [id number] [address] [place] [address], [place] [address] Nov, [facility] [place] [facility] [address] [id number] [address] [place] [address], [place] [address] Nov, [facility] [place] [facility] [address] [id number] [address] [place] [address], [place] [address] Nov, [facility] [place] [facility] [address] [id number] [address] [place] [address], [place] [address] Nov, [facility] [place] [facility] [address] [id number] [place] [address] Oct, [facility] [address] [id number] [address] [place] [address], [place] [address] Oct, [facility] [address] [id number] [address] [place] [address], [place] [address] Oct, [facility] [address] [id number] [address] [place] [address], [place] [address] Oct, [facility] [address] [id number] [address] [place] [address], [place] [address] Sep, [facility] [address] [id number] [address] [place] [address], [place] [address] Sep, [facility] [address] [id number] [address] [place] [address], [place] [address] Aug, [facility] [address] [id number] [address] [place] [address], [place] [address] Aug, [facility] [address] [id number] [address] [place] [address], [place] [address] Aug, [facility] [address] [id number] [address] [place] [address], [place] [address] Aug, [facility] [address] [id number] [address] [place] [address], [place] [address] Aug, [facility] [address] [id number] [address] [place] [address], [place] [address] Aug, [facility] [address] [id number] [address] [place] [address], [place] [address] Aug, [facility] [address] [id number] [address] [place] [address], [place] [address] Aug, [facility] [address] [id number] [address] [place] [address], [place] [address] Jul, [facility] [address] [id number] [address] [place] [address], [place] [address] Jul, [facility] [address] [id number] [address] [place] [address], [place] [address] Jul, [facility] [address] [id number] [address] [place] [address], [place] [address] Jul, [facility] [address] [id number] [address] [place] [address], [place] [address] Jul, [facility] [address] [id number] [address] [place] [address], [place] [phone] Jun, [facility] [address] [id number] [address] [place] [address], [place] [address] May, [facility] [address] [id number] [address] [place] [address], [place] [address] Apr, [facility] [address] [id number] [address] [place] [address], [place] [address] February, [facility] [address] [id number] [address] [place] [address], [place] [address] Jan, [facility] [address] [id number] [address] [place] [address], [place] [address] Jan, [facility] [address] [id number] [address] [place] [address], [place] [address] Dec, [facility] [address] [id number] [address] [place] [address], [place] [address] Dec, [facility] [address] [id number] [address] [place] [phone] Dec, [facility] [address] [id number] [address] [place] [address], [place] [address] Nov, [facility] [address] [id number] [address] [place] [address], [place] [address] Nov, [facility] [address] [id number] [address] [place] [phone] Nov, [facility] [address] [id number] [address] [place] [phone] Nov, IMMUNIZATIONS No Known Immunizations SOCIAL HISTORY Never Assessed REASON FOR VISIT [facility] Contact PLAN OF CARE Activity Details Follow Up Will use on as needed basis. Reason: VITAL SIGNS MEDICATIONS Unknown Medications RESULTS No [...] Esophagitis Medical History Barretts Esophagus dx 2017 Surgical History carotid endarterectomy, left side of nec k 02/2015 Surgical History coronary angiography Dr Mane BensonByrd Pablo- normal EF, LV function,-minimal RCA blockage <20% 1996 Surgical History EGD-Dr.Makdisi Sharp-mild erosive esophagitis, mild nonspecific bulbar duodenitis 1996 Surgical History carotid endarterectomy, right- [facility] 01/14 015 Surgical History Heart cath with [facility] 2013 Surgical History Colonoscopy- tubular adenoma , hyperplastic polyp- repeat Colonoscopy 12/2016 Hospitalization History heart attack 1996 Hospitalization History slurred speech, fever, left arm pain Sharifa Shah February 2015 Hospitalization History Pancreatitis 12/2015
--- OUTSIDE RECORDS SUMMARY | 2020-04-06 06:59 | XMS REPORT ---
Author Author Jermaine CAMPOS Organization [facility] Address [address] [place] [address] Care Team Providers Care Tier In Name Role Phone TIFFANIE CAMPOS Unavailable PROBLEMS Type Condition ICD9-CM Code ZPU24-FP Code Onset Dates Condition S tatus SNOMED Code Problem Gastroesophageal reflux disease without esophagitis K21.9 Active 063964785 Problem Bilateral carotid artery disease I77.9 Active 999900797 Problem Claudication of both lower extremities I73.9 Active 939328552 Problem Mixed hyperlipidemia E78.2 Active 440714914 Problem Peripheral arterial disease I73.9 Ac tive 618805449 Problem Chronic obstructive pulmonary disease, unspecified COPD ty pe J44.9 Active 90749735 Problem PAD (peripheral artery disease) I73.9 Active 014267044 Problem Claudication I73.9 Active 5953464 6 Problem Non-rheumatic mitral regurgitation I34.0 Active 060898814 Problem Tobacco abuse Z72.0 Active 792723 05 Problem Benign essential hypertension I10 Active 2439708 Problem Hyperlipemia E78.5 Active 3906257 4 Problem Chronic bronchitis J42 Active 6 3277539 Problem Diverticulosis of intestine without bleeding, unspecified intestinal tract location K57.90 Active 47044884 Problem Abdominal bloating R14.0 Active 1 70453966 Problem Chronic pain G89.29 Active 0935113 1 Problem Fatty liver K76.0 Active 64556094 7 Problem CAD (coronary artery disease) I25.10 Active 33521341 Problem COPD (chronic obstructive pulmonary disease) wit h chronic bronchitis J44.9 Active 847246828 ALLERGIES No Information ENCOUNTERS Encounter Location Date Diagnosis [address] [id number] [place] [id number] May, COPD (chronic obstructive pulmonary dise ase) with chronic bronchitis J44.9 ; Tobacco abuse Z72.0 and Tobacco abuse counseling Z71.[address] [id number] [place] [id number] Apr, CAD (coronary artery disease) I25.10 [facility] [address] [place] [address] AVE [id number] [place] [id number] Mar, Peripheral arterial disease I73.9 [facility] [address] [id number] [place] [id number] February, Chronic pain G89.29 ; Hyperlipemia E78.5 and Benign essential hypertension I10 [facility] [address] [place] [address] AVE [id number] [place] [id number] Jan, COPD (chronic obstructive pulmonary dise ase) with chronic bronchitis J44.9 [facility] [id number] [place] [id number] Jan, [facility] [address] [place] [address] AVE [id number] [place] [id number] Jan, Peripheral arterial disease I73.9 ; Carlo gn essential hypertension I10 ; Bilateral carotid artery disease I77.9 ; Claudication of both lower extremities I73.9 ; Mixed hyperlipidemia E78.2 ; Tobacco use Z72.0 and Non- rheumatic mitral regurgitation I34.0 [facility] [address] [place] [address] AVE [id number] [place] [id number] Jan, RUQ pain R10.11 ; Gastroesophageal reflu x disease without esophagitis K21.9 and Change in stool R19.5 [facility] [address] [place] [address] A[address] [id number] [place] [id number] Jan, [facility] [address] [place] [address] AVE [id number] [place] [id number] Jan, Neck pain M54.2 ; Benign essential hyper tension I10 ; COPD (chronic obstructive pulmonary disease) with chronic bronchitis J44.9 and Chronic obstructive pulmonary disease, unspecified COPD type J44.9 [facility] [address] [place] [address] AVE [id number] [place] [id number] Jan, Chronic obstructive pulmonary disease, u nspecified COPD type J44.9 [facility] [address] [id number] [place] [id number] Dec, [facility] [address] [id number] [place] [id number] Dec, [facility] [address] [id number] [place] [id number] Dec, COPD (chronic obstructive pulmonary dise ase) with chronic bronchitis J44.9 [facility] [address] [facility] [id number] [place] [address] Dec, [facility] [address] [facility] [id number] [address] [place] [address] Dec, [facility] [address] [id number] [place] [id number] Nov, [facility] [address] [id number] [place] [address] Nov, Benign essential hypertension I10 and [place] PD (chronic obstructive pulmonary disease) with chronic bronchitis J44.9 [facility] [address] [facility] [address] [id number] [place] [id number] Nov, Hyperlipemia E78.5 ; Benign essential hy pertension I10 ; COPD (chronic obstructive pulmonary disease) with chronic bronchitis J44.9 ; Encounter for immunization Z23 ; Gastroesophageal reflux disease without esophagitis K21.9 and Chronic pain G89.29 [facility] [address] [id number] [place] [id number] Oct, COPD (chronic obstructive pulmonary dise ase) with chronic bronchitis J44.9 and Chronic obstructive pulmonary disease, unspecified COPD type J44.9 [facility] [address] [id number] [place] [id number] Oct, COPD (chronic obstructive pulmonary dise ase) with chronic bronchitis J44.9 and Chronic obstructive pulmonary disease, unspecified COPD type J44.9 [facility] [address] [id number] [place] [address] Oct, COPD (chronic obstructive pulmonary dise ase) with chronic bronchitis J44.9 and Chronic obstructive pulmonary disease, unspecified COPD type J44.9 [facility] [address] [id number] [place] [address] Oct, Benign essential hypertension I10 and Ne ck pain M54.[address] [facility] [address] [id number] [place] [address] Sep, PAD (peripheral artery disease) I73.9 ; Claudication of both lower extremities I73.9 ; Bilateral carotid artery disease I77.9 ; Benign essential hypertension I10 ; Hyperlipemia E78.5 and Dyspnea on exertion R06.09 [facility] [address] [id number] [place] [address] Aug, Benign essential hypertension I10 ; Vannessa roesophageal reflux disease without esophagitis K21.9 and Cervical radiculopathy M54.12 [facility] [address] [id number] [place] [address] Aug, Gastroesophageal reflux disease without esophagitis K21.9 [facility] [address] [id number] [place] [id number] Aug, COPD (chronic obstructive pulmonary dise ase) with chronic bronchitis J44.9 [facility] [address] [id number] [place] [address] Jul, [facility] [address] [id number] [place] [id number] Jul, Benign essential hypertension I[address] [facility] [address] [id number] [place] [id number] Jul, [facility] [address] [id number] [place] [address] Jul, COPD (chronic obstructive pulmonary dise ase) with chronic bronchitis J44.[address] [facility] [address] [id number] [place] [id number] Jul, Neck pain M54.2 [facility] [address] [id number] [place] [address] Jun, Claudication of both lower extremities I 73.9 ; PAD (peripheral artery disease) I73.9 ; Bilateral carotid artery disease I77.9 ; CAD (coronary artery disease) I25.10 ; Tobacco abuse Z72.0 ; Benign essential hypertension I10 ; Hyperlipemia E78.5 and Non-rheumatic mitral valve stenosis I34.2 [facility] [address] [id number] [place] [id number] Jun, Chronic obstructive pulmonary disease, u nspecified COPD type J44.[address] [facility] [address] [id number] [place] [id number] May, [facility] [address] [id number] [place] [id number] May, Chronic obstructive pulmonary disease, u nspecified COPD type J44.9 [facility] [address] [id number] [place] [id number] May, Neck pain M54.2 ; Chronic obstructive pu lmonary disease, unspecified COPD type J44.9 and Cervical radiculopathy M54.12 [facility] [address] [id number] [place] [id number] May, [facility] [address] [id number] [place] [address]689[address] Apr, [facility] [address] [id number] [place] [address] Apr, Gastroesophageal reflux disease without esophagitis K21.[address] [facility] [address] [id number] [place] [id number] Apr, COPD (chronic obstructive pulmonary dise ase) with chronic bronchitis J44.[address] [facility] [address] [id number] [place] [address]15[address] Apr, [facility] [address] [id number] [place] 9688[address] Apr, [facility] [address] [id number] [place] [id number] Apr, COPD (chronic obstructive pulmonary dise ase) with chronic bronchitis J44.9 ; Benign essential hypertension I10 ; Tobacco abuse counseling Z71.6 and Hyperlipemia E78.[address] [facility] [address] [id number] [place] [id number] February, COPD (chronic obstructive pulmonary dise ase) with chronic bronchitis J44.[address] [facility] [address] [id number] [place] [id number] Jan, [facility] [address] [id number] [place] [address] Jan, COPD (chronic obstructive pulmonary dise ase) with chronic bronchitis J44.[address] [facility] [address] [id number] [place] [id number] Oct, COPD (chronic obstructive pulmonary dise ase) with chronic bronchitis J44.[address] [facility] [address] [id number] [place] 7178507[address] Oct, Winter itch L29.[address] [facility] [address] [id number] [place] 726150136 Oct, COPD (chronic obstructive pulmonary dise ase) with chronic bronchitis J44.9 ; Benign essential hypertension I10 ; Tobacco abuse Z72.0 and Gastroesophageal reflux disease without esophagitis K21.[address] [facility] [address] [id number] [place] [address] Sep, Benign essential hypertension I[address] [facility] [address] [id number] [place] [address] Aug, [facility] [address] [id number] [place] [id number] Jul, [facility] [address] [id number] [place] [id number] Apr, [facility] [address] [id number] [place] 560028[address] Apr, Abdominal bloating R14.0 ; Fatty liver K 76.0 ; Diverticulosis of intestine without bleeding, unspecified intestinal tract location K57.90 ; Chronic obstructive pulmonary disease, unspecified COPD type J44.9 and Benign essential hypertension I10 [facility] [address] [id number] [place] 678[address] Apr, Mild early onset dysthymic disorder, in partial remission, with melancholic features, 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 [facility] [address] [id number] [place] 835163847 Mar, Abdominal muscle strain, initial encount er S39.011A [address] [id number] [place] 645013879 Jan, Pancreatitis K85.9 ; Abdominal bloating R14.0 ; Chronic bronchitis J42 and Chronic pain G89.[address] [id number] [place] 70239[address] Nov, [facility] [address] [id number] [place] [id number] Nov, [facility] [address] [id number] [place] 867333321 Nov, Chronic bronchitis J42 ; Tobacco abuse Z 72.0 and Tobacco abuse counseling Z71.[address] [id number] [place] [id number] Oct, [facility] [address] [id number] [place] [id number] Oct, Chronic bronchitis J42 ; Tobacco abuse Z 72.0 and Benign essential hypertension I10 [address] [id number] [place] [id number] Oct, Chronic bronchitis J42 ; Tobacco abuse Z 72.0 ; Tobacco abuse counseling Z71.6 ; Benign essential hypertension I10 and Hyperlipemia E78.5 [facility] [address] [facility] [id number] [address] [address] Sep, [facility] [address] [id number] [place] 9763857[address] Jul, [facility] [address] [facility] [id number] [address] [place] [address] Jul, Essential (primary) hyperten aida I10 [facility] [address] [facility] [id number] [address] [place] [address] Jul, [facility] [address] [id number] [place] 11079[address] Jul, [facility] [address] [id number] [place] 818024156 Jun, Benign essential hypertension 401.1 ; Ge neralized edema 782.3 ; Chronic pain 338.29 and Hyperlipemia 272.[address] [id number] [place] [id number] May, Upper respiratory infection 465.9 and Co ugh 786.[address] [id number] [place] [address] [id number] Mar, Upper respiratory infection 465.9 ; 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 and Cough 786.[address] [id number] [place] [id number] February, [address] [id number] [place] [id number] February, Status post bilateral carotid endarterec vito V45.89 ; CAD (coronary artery disease) 414.00 ; Benign essential hypertension 401.1 ; Hyperlipemia 272.4 ; Tobacco abuse 305.1 ; Tobacco abuse counseling V65.42 and Chronic bronchitis 491.9 [facility] [address] [facility] [id number] [address] [place] [address] Jan, [facility] [address] [facility] [id number] [address] [place] [address] Jan, [facility] [address] [facility] [id number] [address] [place] [address] Dec, [facility] [address] [id number] [address] [place] [address], [place] [address] Dec, [facility] [address] [id number] [address] [place] [address], [place] [address] Nov, 2014 [facility] [address] [id number] [address] [place] [address], [place] [address] Nov, 2014 [facility] [address] [id number] [address] [place] [address], [place] [address] Nov, 2014 [facility] [address] [id number] [address] [place] [address], [place] [address] Nov, 2014 [facility] [address] [id number] [address] [place] [address], [place] [address] Nov, 2014 [facility] [address] [id number] [address] [place] [address], [place] [address] Nov, 2014 [facility] [address] [id number] [address] [place] [address], [place] [address] Nov, 2014 [facility] [address] [id number] [address] [place] [address], [place] [address] Nov, [facility] [address] [id number] [address] [place] [address], [place] [address] Nov, [facility] [address] [id number] [address] [place] [address], [place] [address] Oct, [facility] [address] [id number] [address] [place] [address], [place] [address] Oct, [facility] [address] [id number] [address] [place] [address], [place] [address] Oct, [facility] [address] [id number] [address] [place] [address], [place] [address] Oct, [facility] [address] [id number] [address] [place] [address], [place] [address] Oct, [facility] [address] [id number] [address] [place] [address] Oct, [facility] [address] [id number] [address] [place] [address], [place] [address] Oct, [facility] [address] [id number] [address] [place] [address] Oct, [facility] [address] [id number] [address] [place] [address], [place] [address] Oct, [facility] [address] [id number] [address] [place] [address], [place] [address] Oct, [facility] [address] [id number] [place] [id number] Oct, [facility] [address] [id number] [address] [place] [address] Oct, [facility] [address] [id number] [address] [place] [address] Sep, [facility] [address] [id number] [address] [place] [address] Sep, [facility] [address] [id number] [address] [place] [address] Aug, [facility] [address] [id number] [address] [place] [address], [place] [address] Aug, [facility] [address] [id number] [address] [place] [address], [place] [address] Aug, [facility] [address] [id number] [address] [place] [address] Aug, [facility] [address] [id number] [address] [place] [address], [place] [address] Jul, [facility] [address] [id number] [address] [place] [address], [place] [address] Jul, [facility] [address] [id number] [address] [place] [address], [place] [address] Jun, [facility] [address] [id number] [address] [place] [address], [place] [address] Jun, [facility] [address] [id number] [address] [place] [address], [place] [address] May, [facility] [address] [id number] [address] [place] [address], [place] [address] May, [facility] [address] [id number] [address] [place] [address], [place] [address] May, [facility] [address] [id number] [address] [place] [address], [place] [address] May, [facility] [address] [id number] [address] [place] [address], [place] [address] Jan, [facility] [address] [id number] [address] [place] [address], [place] [address] Jan, [facility] [address] [id number] [address] [place] [address], [place] [address] Nov, [facility] [address] [id number] [address] [place] [address], [place] [address] Nov, [facility] [address] [id number] [address] [place] [address], [place] [address] Nov, [facility] [address] [id number] [address] [place] [address], [place] [address] Nov, [facility] [address] [id number] [address] [place] [address], [place] [address] Nov, [facility] [address] [id number] [address] [place] [address], [place] [address] Nov, [facility] [address] [id number] [address] [place] [address], [place] [address] Nov, [facility] [address] [id number] [address] [place] [address], [place] [address] Nov, [facility] [address] [id number] [address] [place] [address], [place] [address] Nov, [facility] [address] [id number] [address] [place] [address], [place] [address] Nov, [facility] [address] [id number] [address] [place] [address], [place] [address] Oct, [facility] [address] [id number] [address] [place] [address], [place] [address] Oct, [facility] [address] [id number] [address] [place] [address], [place] [address] Oct, [facility] [address] [id number] [address] [place] [address], [place] [address] Oct, [facility] [address] [id number] [address] [place] [address], [place] [address] Sep, [facility] [address] [id number] [address] [place] [address], [place] [address] Sep, [facility] [address] [id number] [address] [place] [address], [place] [address] Aug, [facility] [address] [id number] [address] [place] [address], [place] [address] Aug, [facility] [address] [id number] [address] [place] [address], [place] [address] Aug, [facility] [address] [id number] [address] [place] [address], [place] [address] Aug, [facility] [address] [id number] [address] [place] [address] Aug, [facility] [address] [id number] [address] [place] [address] Aug, [facility] [address] [id number] [address] [place] [address], [place] [address] Aug, [facility] [address] [id number] [address] [place] [address], [place] [address] Aug, [facility] [address] [id number] [address] [place] [address], [place] [address] Jul, [facility] [address] [id number] [address] [place] [address], [place] [address] Jul, [facility] [address] [id number] [address] [place] [address], [place] [address] Jul, [facility] [address] [id number] [address] [place] [address], [place] [address] Jul, [facility] [address] [id number] [address] [place] [address], [place] [address] Jul, [facility] [address] [id number] [address] [place] [address], [place] [address] Jun, [facility] [address] [id number] [address] [place] [address], [place] [address] May, [facility] [address] [id number] [address] [place] [address], [place] [address] Apr, [facility] [address] [id number] [address] [place] [address], [place] [address] February, [facility] [address] [id number] [address] [place] [address], [place] [address] Jan, [facility] [address] [id number] [address] [place] [address], [place] [address] Jan, [facility] [address] [id number] [address] [place] [address], [place] [address] Dec, [facility] [address] [id number] [address] [place] [address], [place] [address] Dec, [facility] [address] [id number] [address] [place] [address], [place] [address] Dec, [facility] [address] [id number] [address] [place] [address], [place] [address] Nov, [facility] [address] [id number] [address] [place] [address] [address] Nov, [facility] [address] [facility] [id number] [address] [address] Nov, [facility] [address] [facility] [id number] [address] [address] Nov, IMMUNIZATIONS No Known Immunizations SOCIAL HISTORY [...] 1996 Surgical History carotid endarterectomy, right- [facility] 01/14 015 Surgical History Heart cath with PTCA 2013 Surgical History Colonoscopy- tubular adenoma , hyperplastic polyp- repeat Colonoscopy 12/2016 Hospitalization History heart attack 1996 Hospitalization History slurred speech, fever, left arm pain Sharifa Shah February 2015 Hospitalization History Pancreatitis 12/2015
--- OUTSIDE RECORDS SUMMARY | 2020-04-06 06:59 | XMS REPORT ---
Author Author Jermaine CAMPOS Organization [facility] Address [address] [place] [address] Care Team Providers Care General Office Clerk Name Role Phone TIFFANIE CAMPOS Unavailable PROBLEMS Type Condition ICD9-CM Code QZQ65-GY Code Onset Dates Condition S tatus SNOMED Code Problem Gastroesophageal reflux disease without esophagitis K21.9 Active 283034316 Problem Bilateral carotid artery disease I77.9 Active 909547291 Problem Claudication of both lower extremities I73.9 Active 960125112 Problem Mixed hyperlipidemia E78.2 Active 105342914 Problem Peripheral arterial disease I73.9 Ac tive 648831829 Problem Chronic obstructive pulmonary disease, unspecified COPD ty pe J44.9 Active 12684655 Problem PAD (peripheral artery disease) I73.9 Active 451933180 Problem Claudication I73.9 Active 4232425 6 Problem Non-rheumatic mitral regurgitation I34.0 Active 125180891 Problem Tobacco abuse Z72.0 Active 196389 05 Problem Benign essential hypertension I10 Active 9667117 Problem Hyperlipemia E78.5 Active 9838300 4 Problem Chronic bronchitis J42 Active 6 2795561 Problem Diverticulosis of intestine without bleeding, unspecified intestinal tract location K57.90 Active 30324317 Problem Abdominal bloating R14.0 Active 1 66970859 Problem Chronic pain G89.29 Active 8933197 1 Problem Fatty liver K76.0 Active 42994409 7 Problem CAD (coronary artery disease) I25.10 Active 42469633 Problem COPD (chronic obstructive pulmonary disease) wit h chronic bronchitis J44.9 Active 401562926 ALLERGIES No Information ENCOUNTERS Encounter Location Date Diagnosis [address] [id number] [place] [id number] May, COPD (chronic obstructive pulmonary dise ase) with chronic bronchitis J44.9 ; Tobacco abuse Z72.0 and Tobacco abuse counseling Z71.[address] [id number], [place] [id number] Apr, CAD (coronary artery disease) I25.10 [facility] [address] [place] [address] AVE [id number], [place] [id number] Mar, Peripheral arterial disease I73.9 [facility] [address] [id number], [place] [id number] February, Chronic pain G89.29 ; Hyperlipemia E78.5 and Benign essential hypertension I10 [facility] [address] [place] [address] AVE [id number], [place] [id number] Jan, COPD (chronic obstructive pulmonary dise ase) with chronic bronchitis J44.9 [facility] [id number], [place] [id number] Jan, [facility] [address] [place] [address] AVE [id number], [place] [id number] Jan, Peripheral arterial disease I73.9 ; Carlo gn essential hypertension I10 ; Bilateral carotid artery disease I77.9 ; Claudication of both lower extremities I73.9 ; Mixed hyperlipidemia E78.2 ; Tobacco use Z72.0 and Non- rheumatic mitral regurgitation I34.0 [facility] [address] [place] [address] AVE [id number], [place] [id number] Jan, RUQ pain R10.11 ; Gastroesophageal reflu x disease without esophagitis K21.9 and Change in stool R19.5 [facility] [address] [place] [address] AVE [id number], [place] [id number] Jan, [facility] [address] [place] [address] AVE [id number], [place] [id number] Jan, Neck pain M54.2 ; Benign essential hyper tension I10 ; COPD (chronic obstructive pulmonary disease) with chronic bronchitis J44.9 and Chronic obstructive pulmonary disease, unspecified COPD type J44.9 [facility] [address] [place] [address] AVE [id number], [place] [id number] Jan, Chronic obstructive pulmonary disease, u nspecified COPD type J44.9 [facility] [address] [id number], [place] [id number] Dec, [facility] [address] [id number], [place] [id number] Dec, [facility] [address] [address] [id number], [place] [id number] Dec, COPD (chronic obstructive pulmonary dise ase) with chronic bronchitis J44.9 [facility] [address] [facility] [id number] [place] [address] Dec, [facility] [address] [facility] [id number] [address] [place] [address] Dec, [facility] [address] [id number], [place] [id number] Nov, [facility] [address] [id number], [place] [id number] Nov, Benign essential hypertension I10 and CO PD (chronic obstructive pulmonary disease) with chronic bronchitis J44.9 [facility] [address] [id number], [place] [id number] Nov, Hyperlipemia E78.5 ; Benign essential hy pertension I10 ; COPD (chronic obstructive pulmonary disease) with chronic bronchitis J44.9 ; Encounter for immunization Z23 ; Gastroesophageal reflux disease without esophagitis K21.9 and Chronic pain G89.29 [facility] [address] [id number], [place] [id number] Oct, COPD (chronic obstructive pulmonary dise ase) with chronic bronchitis J44.9 and Chronic obstructive pulmonary disease, unspecified COPD type J44.9 [facility] [address] [id number], [place] [id number] Oct, COPD (chronic obstructive pulmonary dise ase) with chronic bronchitis J44.9 and Chronic obstructive pulmonary disease, unspecified COPD type J44.9 [facility] [address] [id number], [place] [id number] Oct, COPD (chronic obstructive pulmonary dise ase) with chronic bronchitis J44.9 and Chronic obstructive pulmonary disease, unspecified COPD type J44.9 [facility] [address] [id number] [place] [id number] Oct, Benign essential hypertension I10 and Ne ck pain M54.[address] [facility] [address] [id number] [place] [id number] Sep, PAD (peripheral artery disease) I73.9 ; Claudication of both lower extremities I73.9 ; Bilateral carotid artery disease I77.9 ; Benign essential hypertension I10 ; Hyperlipemia E78.5 and Dyspnea on exertion R06.09 [facility] [address] [id number], [place] [id number] Aug, Benign essential hypertension I10 ; Vannessa roesophageal reflux disease without esophagitis K21.9 and Cervical radiculopathy M54.12 [facility] [address] [id number], [place] [id number] Aug, Gastroesophageal reflux disease without esophagitis K21.9 [facility] [address] [id number], [place] [id number] Aug, COPD (chronic obstructive pulmonary dise ase) with chronic bronchitis J44.9 [facility] [address] [id number], [place] [id number] Jul, [facility] [address] [id number], [place] [id number] Jul, Benign essential hypertension I10 [facility] [address] [id number] [place] [id number] Jul, [facility] [address] [id number], [place] [id number] Jul, COPD (chronic obstructive pulmonary dise ase) with chronic bronchitis J44.[address] [facility] [address] [id number] [place] [id number] Jul, Neck pain M54.2 [facility] [address] [id number], [place] [id number] Jun, Claudication of both lower extremities I 73.9 ; PAD (peripheral artery disease) I73.9 ; Bilateral carotid artery disease I77.9 ; CAD (coronary artery disease) I25.10 ; Tobacco abuse Z72.0 ; Benign essential hypertension I10 ; Hyperlipemia E78.5 and Non-rheumatic mitral valve stenosis I34.2 [facility] [address] [id number] [place] [address] Jun, Chronic obstructive pulmonary disease, u nspecified COPD type J44.[address] [facility] [address] [id number] [place] [id number] May, [facility] [address] [id number], [place] [id number] May, Chronic obstructive pulmonary disease, u nspecified COPD type J44.9 [facility] [address] [id number], [place] [id number] May, Neck pain M54.2 ; Chronic obstructive pu lmonary disease, unspecified COPD type J44.9 and Cervical radiculopathy M54.12 [facility] [address] [id number], [place] [id number] May, [facility] [address] [id number], [place] [id number] Apr, [facility] [address] [id number], [place] [id number] Apr, Gastroesophageal reflux disease without esophagitis K21.[address] [facility] [address] [id number] [place] [id number] Apr, COPD (chronic obstructive pulmonary dise ase) with chronic bronchitis J44.[address] [facility] [address] [id number], [place] [id number] Apr, [facility] [address] [id number], [place] [id number] Apr, [facility] [address] [id number] [place] [address] Apr, COPD (chronic obstructive pulmonary dise ase) with chronic bronchitis J44.9 ; Benign essential hypertension I10 ; Tobacco abuse counseling Z71.6 and Hyperlipemia E78.[address] [facility] [address] [id number] [place] [id number] February, COPD (chronic obstructive pulmonary dise ase) with chronic bronchitis J44.[address] [facility] [address] [id number] [place] [id number] Jan, [facility] [address] [id number] [place] 9080[address] Jan, COPD (chronic obstructive pulmonary dise ase) with chronic bronchitis J44.[address] [facility] [address] [id number] [place] [address] Oct, COPD (chronic obstructive pulmonary dise ase) with chronic bronchitis J44.[address] [facility] [address] [id number], [place] [id number] Oct, Winter itch L29.[address] [facility] [address] [id number], [place] [id number] Oct, COPD (chronic obstructive pulmonary dise ase) with chronic bronchitis J44.9 ; Benign essential hypertension I10 ; Tobacco abuse Z72.0 and Gastroesophageal reflux disease without esophagitis K21.[address] [facility] [address] [id number] [place] 46[address] Sep, Benign essential hypertension I10 [facility] [address] [id number] [place] [id number] Aug, [facility] [address] [id number] [place] [id number] Jul, [facility] [address] [id number] [place] [id number] Apr, [facility] [address] [id number] [place] [id number] Apr, Abdominal bloating R14.0 ; Fatty liver K 76.0 ; Diverticulosis of intestine without bleeding, unspecified intestinal tract location K57.90 ; Chronic obstructive pulmonary disease, unspecified COPD type J44.9 and Benign essential hypertension I10 [facility] [address] [id number], [place] [id number] Apr, Mild early onset dysthymic disorder, in partial remission, with melancholic features, 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 [facility] [address] [id number], [place] [id number] Mar, Abdominal muscle strain, initial encount er S39.011A [address] [id number], [place] 308348579 Jan, Pancreatitis K85.9 ; Abdominal bloating R14.0 ; Chronic bronchitis J42 and Chronic pain G89.[address] [id number], [place] [id number] Nov, [facility] [address] [id number], [place] [id number] Nov, [facility] [address] [id number], [place] [id number] Nov, Chronic bronchitis J42 ; Tobacco abuse Z 72.0 and Tobacco abuse counseling Z71.[address] [id number], [place] 677804329 Oct, [facility] [address] [id number], [place] [id number] Oct, Chronic bronchitis J42 ; Tobacco abuse Z 72.0 and Benign essential hypertension I10 [address] [id number], [place] 870907278 Oct, Chronic bronchitis J42 ; Tobacco abuse Z 72.0 ; Tobacco abuse counseling Z71.6 ; Benign essential hypertension I10 and Hyperlipemia E78.5 [facility] [address] [facility] [id number] 100[place] [address] Sep, [facility] [address] [id number], [place] [id number] Jul, [facility] [address] [facility] [id number] [address] [place] [address] Jul, Essential (primary) hyperten aida I10 [facility] [address] [facility] [id number] [address] [place] [address] Jul, [facility] [address] [id number], [place] [id number] Jul, [facility] [address] [id number], [place] [id number] Jun, Benign essential hypertension 401.1 ; Ge neralized edema 782.3 ; Chronic pain 338.29 and Hyperlipemia 272.[id number] [place] [address] [id number] May, Upper respiratory infection 465.9 and Co ugh 786.[address] [id number] [place] [address] [id number] Mar, Upper respiratory infection 465.9 ; 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 and Cough 786.[address] [id number] [place] [address] [id number] February, [address] [id number], [place] [id number] February, Status post bilateral carotid endarterec vito V45.89 ; CAD (coronary artery disease) 414.00 ; Benign essential hypertension 401.1 ; Hyperlipemia 272.4 ; Tobacco abuse 305.1 ; Tobacco abuse counseling V65.42 and Chronic bronchitis 491.9 [facility] [address] [facility] [id number] [address] [place] [address] Jan, [facility] [address] [facility] [id number] [address] [place] [address] Jan, [facility] [address] [facility] [id number] [address] [place] [address] Dec, [facility] [place] [address] [id number] [address] [place] [address], [place] [address] Dec, [facility] [place] [address] [id number] [address] [place] [address], [place] [address] Nov, 2014 [facility] [place] [facility] [address] [id number] [address] [place] [address], [place] [address] Nov, 2014 [facility] [place] [address] [id number] [address] [place] [address], [place] [address] Nov, 2014 [facility] [place] [address] [id number] [address] [place] [address], [place] [address] Nov, 2014 [facility] [place] [facility] [address] [id number] [address] [place] [address], [place] [address] Nov, 2014 [facility] [place] [facility] [address] [id number] [address] [place] [address], [place] [address] Nov, 2014 [facility] [place] [facility] [address] [id number] [address] [place] [address], [place] [address] Nov, 2014 [facility] [place] [facility] [address] [id number] [address] [place] [address], [place] [address] Nov, [facility] [place] [facility] [address] [id number] [address] [place] [address], [place] [address] Nov, [facility] [place] [facility] [address] [id number] [address] [place] [address], [place] [address] Oct, [facility] [place] [facility] [address] [id number] [address] [place] [address], [place] [address] Oct, [facility] [place] [facility] [address] [id number] [address] [place] [address], [place] [address] Oct, [facility] [place] [facility] [address] [id number] [address] [place] [address], [place] [address] Oct, [facility] [place] [facility] [address] [id number] [address] [place] [address], [place] [address] Oct, [facility] [place] [facility] [address] [id number] [address] [place] [address] Oct, [facility] [address] [id number] [address] [place] [address], [place] [address] Oct, [facility] [address] [id number] [address] [place] [address] Oct, [facility] [address] [id number] [address] [place] [address], [place] [address] Oct, [facility] [address] [id number] [address] [place] [address], [place] [address] Oct, [facility] [address] [id number] [place] [id number] Oct, [facility] [address] [id number] [address] [place] [address] Oct, [facility] [address] [id number] [address] [place] [address] Sep, [facility] [place] [facility] [address] [id number] [address] [place] [address] Sep, [facility] [address] [id number] [address] [place] [address] Aug, [facility] [place] [facility] [address] [id number] [address] [place] [address], [place] [address] Aug, [facility] [place] [facility] [address] [id number] [address] [place] [address], [place] [address] Aug, [facility] [place] [facility] [address] [id number] [address] [place] [address] Aug, [facility] [place] [facility] [address] [id number] [address] [place] [address], [place] [address] Jul, [facility] [place] [facility] [address] [id number] [address] [place] [address], [place] [address] Jul, [facility] [place] [facility] [address] [id number] [address] [place] [address], [place] [address] Jun, [facility] [place] [facility] [address] [id number] [address] [place] [address], [place] [address] Jun, [facility] [address] [id number] [address] [place] [address], [place] [address] May, [facility] [place] [facility] [address] [id number] [address] [place] [address], [place] [address] May, [facility] [address] [id number] [address] [place] [address], [place] [address] May, [facility] [address] [id number] [address] [place] [address], [place] [address] May, [facility] [address] [id number] [address] [place] [address], [place] [address] Jan, [facility] [address] [id number] [address] [place] [address], [place] [address] Jan, [facility] [address] [id number] [address] [place] [address], [place] [address] Nov, [facility] [address] [id number] [address] [place] [address], [place] [address] Nov, [facility] [address] [id number] [address] [place] [address], [place] [address] Nov, [facility] [address] [id number] [address] [place] [address], [place] [address] Nov, [facility] [address] [id number] [address] [place] [address], [place] [address] Nov, [facility] [address] [id number] [address] [place] [address], [place] [address] Nov, [facility] [place] [facility] [address] [id number] [address] [place] [address], [place] [address] Nov, [facility] [address] [id number] [address] [place] [address], [place] [address] Nov, [facility] [place] [facility] [address] [id number] [address] [place] [address], [place] [address] Nov, [facility] [address] [id number] [address] [place] [address], [place] [address] Nov, [facility] [address] [id number] [address] [place] [address], [place] [address] Oct, [facility] [address] [id number] [address] [place] [address], [place] [address] Oct, [facility] [address] [id number] [address] [place] [address], [place] [address] Oct, [facility] [address] [id number] [address] [place] [address], [place] [address] Oct, [facility] [address] [id number] [address] [place] [address], [place] [address] Sep, [facility] [address] [id number] [address] [place] [address], [place] [address] Sep, [facility] [address] [id number] [address] [place] [address], [place] [address] Aug, [facility] [address] [id number] [address] [place] [address], [place] [address] Aug, [facility] [address] [id number] [address] [place] [address], [place] [address] Aug, [facility] [address] [id number] [address] [place] [address], [place] [address] Aug, [facility] [address] [id number] [address] [place] [address] Aug, [facility] [address] [id number] [address] [place] [address] Aug, [facility] [address] [id number] [address] [place] [address], [place] [address] Aug, [facility] [address] [id number] [address] [place] [address], [place] [address] Aug, [facility] [address] [id number] [address] [place] [address], [place] [address] Jul, [facility] [address] [id number] [address] [place] [address], [place] [address] Jul, [facility] [address] [id number] [address] [place] [address], [place] [address] Jul, [facility] [address] [id number] [address] [place] [address], [place] [address] Jul, [facility] [address] [id number] [address] [place] [address], [place] [address] Jul, [facility] [address] [id number] [address] [place] [address], [place] [address] Jun, [facility] [address] [id number] [address] [place] [address], [place] [address] May, [facility] [address] [id number] [address] [place] [address], [place] [address] Apr, [facility] [address] [id number] [address] [place] [address], [place] [address] February, [facility] [address] [id number] [address] [place] [address], [place] [id number] Jan, [facility] [address] [id number] [address] [place] [address], [place] [address] Jan, [facility] [address] [id number] [address] [place] [address], [place] [id number] Dec, [facility] [address] [id number] [address] [place] [address], [place] [address] Dec, [facility] [address] [id number] [address] [place] [address], [place] [address] Dec, [facility] [address] [id number] [address] [place] [address], [place] [address] Nov, [facility] [address] [id number] [address] [place] [address] [address] Nov, [facility] [address] [facility] [id number] [address] [address] Nov, [facility] [address] [facility] [id number] [address] [address] Nov, IMMUNIZATIONS No Known Immunizations SOCIAL HISTORY Never Assessed REASON FOR VISIT PLAN OF CARE VITAL SIGNS MEDICATIONS Medication Instructions Dosage Frequency Start Date End Date Duration S tatus Ventolin HFA 108 (90 Base) MCG/ACT Inhalation every 4 hrs 2 puffs a s needed 4h Apr, Active RESULTS No Results PROCEDURES No [...] History coronary angiography Dr Mane thakur [facility]- normal EF, LV function,-minimal RCA blockage <20% 1996 [facility], mild nonspecific bulbar duodenitis 1996 Surgical History carotid endarterectomy, right- [facility] 01/14 015 Surgical History Heart cath with [facility] 2013 Surgical History Colonoscopy- tubular adenoma , hyperplastic polyp- repeat Colonoscopy 12/2016 Hospitalization History heart attack 1996 Hospitalization History slurred speech, fever, left arm pain [facility] February 2015 Hospitalization History Pancreatitis 12/2015
--- OUTSIDE RECORDS SUMMARY | 2020-04-06 06:59 | XMS REPORT ---
Author Author Jermaine MEZA [facility] Address [address] [place] [address] Care Team Providers Care Vice President Regulatory Name Role Phone KIEL MEZA Unavailable PROBLEMS Type Condition ICD9-CM Code MRI96-UN Code Onset Dates Condition S tatus SNOMED Code Problem Gastroesophageal reflux disease without esophagitis K21.9 Active 954862626 Problem Bilateral carotid artery disease I77.9 Active 410659229 Problem Claudication of both lower extremities I73.9 Active 648045302 Problem Mixed hyperlipidemia E78.2 Active 832305924 Problem Peripheral arterial disease I73.9 Ac tive 132088162 Problem Chronic obstructive pulmonary disease, unspecified COPD ty pe J44.9 Active 44577238 Problem PAD (peripheral artery disease) I73.9 Active 291605151 Problem Claudication I73.9 Active 3523648 6 Problem Non-rheumatic mitral regurgitation I34.0 Active 897167723 Problem Tobacco abuse Z72.0 Active 440427 05 Problem Benign essential hypertension I10 Active 1127877 Problem Hyperlipemia E78.5 Active 7091931 4 Problem Chronic bronchitis J42 Active 6 8773955 Problem Diverticulosis of intestine without bleeding, unspecified intestinal tract location K57.90 Active 08885372 Problem Abdominal bloating R14.0 Active 1 36342202 Problem Chronic pain G89.29 Active 1220083 1 Problem Fatty liver K76.0 Active 69536856 7 Problem CAD (coronary artery disease) I25.10 Active 88069824 Problem COPD (chronic obstructive pulmonary disease) wit h chronic bronchitis J44.9 Active 186262389 ALLERGIES No Known Allergies ENCOUNTERS Encounter Location Date Diagnosis [facility] [place] [id number] [id number] [place] [id number] May, COPD (chronic obstructive pulmonary dise ase) with chronic bronchitis J44.9 ; Tobacco abuse Z72.0 and Tobacco abuse counseling Z71.[address] [facility] [address] [id number], [place] [id number] Apr, CAD (coronary artery disease) I25.[address] [facility] [address] [id number], [place] [id number] Mar, Peripheral arterial disease I73.9 [facility] [address] [id number], [place] [address] February, Chronic pain G89.29 ; Hyperlipemia E78.5 and Benign essential hypertension I[address] [facility] [address] [place] [address] AVE [id number], [place] [id number] Jan, COPD (chronic obstructive pulmonary dise ase) with chronic bronchitis J44.[address] [address] [facility] [address] [id number], [place] [id number] Jan, [facility] [address] [id number], [place] [id number] Jan, Peripheral arterial disease I73.9 ; Carlo gn essential hypertension I10 ; Bilateral carotid artery disease I77.9 ; Claudication of both lower extremities I73.9 ; Mixed hyperlipidemia E78.2 ; Tobacco use Z72.0 and Non- rheumatic mitral regurgitation I34.[address] [facility] [address] [place] [address] AVE [id number], [place] [id number] Jan, RUQ pain R10.11 ; Gastroesophageal reflu x disease without esophagitis K21.9 and Change in stool R19.[address] [facility] [address] [place] [address] AVE [id number], [place] [id number] Jan, [facility] ricardo plcTER [address] [place] [address] AVE [id number], [place] [id number] Jan, Neck pain M54.2 ; Benign essential hyper tension I10 ; COPD (chronic obstructive pulmonary disease) with chronic bronchitis J44.9 and Chronic obstructive pulmonary disease, unspecified COPD type J44.[address] [address] [address] [facility] [address] [id number], [place] [id number] Jan, Chronic obstructive pulmonary disease, u nspecified COPD type J44.9 [facility] [address] [id number], [place] [id number] Dec, [facility] [address] [id number], [place] [address] Dec, [facility] [address] [id number], [place] [address]74 Dec, COPD (chronic obstructive pulmonary dise ase) with chronic bronchitis J44.9 [facility] [address] [id number] [place] [address] Dec, [facility] [address] [id number] [address] [place] [address] Dec, [facility] [address] [id number], [place] [id number] Nov, [facility] [place] [address] [facility] [address] [id number], [place] [id number] Nov, Benign essential hypertension I10 and CO PD (chronic obstructive pulmonary disease) with chronic bronchitis J44.9 [facility] [place] [address] [facility] [address] [id number], [place] [id number] Nov, Hyperlipemia E78.5 ; Benign essential hy pertension I10 ; COPD (chronic obstructive pulmonary disease) with chronic bronchitis J44.9 ; Encounter for immunization Z23 ; Gastroesophageal reflux disease without esophagitis K21.9 and Chronic pain G89.29 [facility] [address] [id number], [place] [id number] Oct, COPD (chronic obstructive pulmonary dise ase) with chronic bronchitis J44.9 and Chronic obstructive pulmonary disease, unspecified COPD type J44.[address] [facility] [address] [id number], [place] [address]721366 Oct, COPD (chronic obstructive pulmonary dise ase) with chronic bronchitis J44.9 and Chronic obstructive pulmonary disease, unspecified COPD type J44.[address] [facility] [address] [id number], [place] [id number] Oct, COPD (chronic obstructive pulmonary dise ase) with chronic bronchitis J44.9 and Chronic obstructive pulmonary disease, unspecified COPD type J44.9 [facility] [address] [id number] [place] [id number] Oct, Benign essential hypertension I10 and Ne ck pain M54.2 [facility] [address] [id number] [place] [address]85[address] Sep, PAD (peripheral artery disease) I73.9 ; Claudication of both lower extremities I73.9 ; Bilateral carotid artery disease I77.9 ; Benign essential hypertension I10 ; Hyperlipemia E78.5 and Dyspnea on exertion R06.09 [facility] [address] [id number], [place] [id number] Aug, Benign essential hypertension I10 ; Vannessa roesophageal reflux disease without esophagitis K21.9 and Cervical radiculopathy M54.12 [facility] [address] [id number], [place] [id number] Aug, Gastroesophageal reflux disease without esophagitis K21.9 [facility] [address] [id number], [place] [address]47328436 Aug, COPD (chronic obstructive pulmonary dise ase) with chronic bronchitis J44.9 [facility] [address] [id number], [place] [id number] Jul, [facility] [address] [id number], [place] [id number] Jul, Benign essential hypertension I10 [facility] [address] [id number], [place] [id number] Jul, [facility] [address] [id number], [place] [address]69184912 Jul, COPD (chronic obstructive pulmonary dise ase) with chronic bronchitis J44.9 [facility] [address] [id number] [place] [id number] Jul, Neck pain M54.2 [facility] [address] [id number], [place] [id number] Jun, Claudication of both lower extremities I 73.9 ; PAD (peripheral artery disease) I73.9 ; Bilateral carotid artery disease I77.9 ; CAD (coronary artery disease) I25.10 ; Tobacco abuse Z72.0 ; Benign essential hypertension I10 ; Hyperlipemia E78.5 and Non-rheumatic mitral valve stenosis I34.[address] [facility] [address] [id number] [place] [id number] Jun, Chronic obstructive pulmonary disease, u nspecified COPD type J44.[address] [facility] [address] [id number] [place] [id number] May, [facility] [address] [id number] [place] [id number] May, Chronic obstructive pulmonary disease, u nspecified COPD type J44.9 [facility] [address] [id number], [place] 916677098 May, Neck pain M54.2 ; Chronic obstructive pu lmonary disease, unspecified COPD type J44.9 and Cervical radiculopathy M54.12 [facility] [address] [id number], [place] [id number] May, [facility] [address] [id number], [place] [id number] Apr, [facility] [address] [id number], [place] 712799290 Apr, Gastroesophageal reflux disease without esophagitis K21.[address] [facility] [address] [id number] [place] [id number] Apr, COPD (chronic obstructive pulmonary dise ase) with chronic bronchitis J44.[address] [facility] [address] [id number] [place] [id number] Apr, [facility] [address] [id number] [place] [id number] Apr, [facility] [address] [id number], [place] 629113499 Apr, COPD (chronic obstructive pulmonary dise ase) with chronic bronchitis J44.9 ; Benign essential hypertension I10 ; Tobacco abuse counseling Z71.6 and Hyperlipemia E78.[address] [facility] [address] [id number] [place] [id number] February, COPD (chronic obstructive pulmonary dise ase) with chronic bronchitis J44.[address] [facility] [address] [id number] [place] [id number] Jan, [facility] [address] [id number] [place] [id number] Jan, COPD (chronic obstructive pulmonary dise ase) with chronic bronchitis J44.[address] [facility] [address] [id number] [place] [id number] Oct, COPD (chronic obstructive pulmonary dise ase) with chronic bronchitis J44.[address] [facility] [address] [id number], [place] 511539783 Oct, Winter itch L29.[address] [facility] [address] [id number], [place] [id number] Oct, COPD (chronic obstructive pulmonary dise ase) with chronic bronchitis J44.9 ; Benign essential hypertension I10 ; Tobacco abuse Z72.0 and Gastroesophageal reflux disease without esophagitis K21.[address] [facility] [address] [id number] [place] 575342626 Sep, Benign essential hypertension I[address] [facility] [address] [id number] [place] [id number] Aug, [facility] [address] [id number] [place] 937380010 Jul, [facility] [address] [id number] [place] [id number] Apr, [facility] [address] [id number] [place] [id number] Apr, Abdominal bloating R14.0 ; Fatty liver K 76.0 ; Diverticulosis of intestine without bleeding, unspecified intestinal tract location K57.90 ; Chronic obstructive pulmonary disease, unspecified COPD type J44.9 and Benign essential hypertension I10 [facility] [place] [address] [place] [address] AVE [id number], [place] 540366422 Apr, Mild early onset dysthymic disorder, in partial remission, with melancholic features, 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 [id number], [place] [id number] Mar, Abdominal muscle strain, initial encount er S39.011A [address] [id number], [place] [id number] Jan, Pancreatitis K85.9 ; Abdominal bloating R14.0 ; Chronic bronchitis J42 and Chronic pain G89.29 [facility] [address] [id number], [place] [id number] Nov, [facility] [address] [id number], [place] [address]30631499 Nov, [address] [id number], [place] [id number] Nov, Chronic bronchitis J42 ; Tobacco abuse Z 72.0 and Tobacco abuse counseling Z71.6 [facility] [address] [id number], [place] [id number] Oct, [facility] [address] [id number], [place] 077237209 Oct, Chronic bronchitis J42 ; Tobacco abuse Z 72.0 and Benign essential hypertension I10 [address] [id number], [place] [id number] Oct, Chronic bronchitis J42 ; Tobacco abuse Z 72.0 ; Tobacco abuse counseling Z71.6 ; Benign essential hypertension I10 and Hyperlipemia E78.5 [facility] [address] [id number] [place] [address] Sep, [facility] [place] [address] [id number], [place] [id number] Jul, [facility] [address] [id number] [address] [place] [address] Jul, Essential (primary) hyperten aida I10 [facility] [address] [id number] [address] [place] [address] Jul, [facility] [address] [facility] [address] [id number], [place] [id number] Jul, [facility] [address] [id number], [place] [id number] Jun, Benign essential hypertension 401.1 ; Ge neralized edema 782.3 ; Chronic pain 338.29 and Hyperlipemia 272.[address] [id number] [place] [address] [id number] May, Upper respiratory infection 465.9 and Co ugh 786.[address] [id number] [place] [address] [id number] Mar, Upper respiratory infection 465.9 ; 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 and Cough 786.2 [facility] [address] [place] [address] AVE [id number], [place] [id number] February, [facility] [address] [place] [address] AVE [id number], [place] [id number] February, Status post bilateral carotid endarterec vito V45.89 ; CAD (coronary artery disease) 414.00 ; Benign essential hypertension 401.1 ; Hyperlipemia 272.4 ; Tobacco abuse 305.1 ; Tobacco abuse counseling V65.42 and Chronic bronchitis 491.9 [facility] [address] [id number] [address] [place] [address] Jan, [facility] [address] [id number] [address] [place] [address] Jan, [facility] [address] [id number] [address] [place] [address] Dec, [facility] [address] [id number] [address] [place] [address], [place] [address] Dec, [facility] [address] [id number] [address] [place] [address], [place] [address] Nov, 2014 [facility] [address] [id number] [address] [place] [address], [place] [address] Nov, 2014 [facility] [address] [id number] [address] [place] [address], [place] [address] Nov, 2014 [facility] [address] [id number] [address] [place] [address], [place] [address] Nov, 2014 [facility] [address] [id number] [address] [place] [address], [place] [address] Nov, 2014 [facility] [address] [id number] [address] [place] [address], [place] [address] Nov, [facility] [address] [id number] [address] [place] [address], [place] [address] Nov, [facility] [address] [id number] [address] [place] [address], [place] [address] Nov, [facility] [address] [id number] [address] [place] [address], [place] [address] Nov, [facility] [address] [id number] [address] [place] [address], [place] [address] Oct, [facility] [address] [id number] [address] [place] [address] Oct, [facility] [address] [id number] [address] [place] [address], [place] [address] Oct, [facility] [address] [id number] [address] [place] [address], [place] [address] Oct, [facility] [address] [id number] [address] [place] [address] Oct, [facility] [address] [id number] [address] [place] [address] Oct, [facility] [address] [id number] [address] [place] [address], [place] [address] Oct, [facility] [address] [id number] [address] [place] [address] Oct, [facility] [address] [id number] [address] [place] [address] Oct, [facility] [address] [id number] [address] [place] [address] Oct, [facility] [address] [address] [id number] [place] [id number] Oct, [facility] [address] [id number] [address] [place] [address] Oct, [facility] [address] [id number] [address] [place] [address] Sep, [facility] [address] [id number] [address] [place] [address] Sep, [facility] [address] [id number] [address] [place] [address] Aug, [facility] [address] [id number] [address] [place] [address], [place] [address] Aug, [facility] [address] [id number] [address] [place] [address] Aug, [facility] [address] [id number] [address] [place] [address] Aug, [facility] [address] [id number] [address] [place] [address], [place] [address] Jul, [facility] [address] [id number] [address] [place] [address], [place] [address] Jul, [facility] [address] [id number] [address] [place] [address] Jun, [facility] [address] [id number] [address] [place] [address], [place] [address] Jun, [facility] [address] [id number] [address] [place] [address], [place] [address] May, [facility] [address] [id number] [address] [place] [address], [place] [address] May, [facility] [address] [id number] [address] [place] [address], [place] [address] May, [facility] [address] [id number] [address] [place] [address], [place] [address] May, [facility] [address] [id number] [address] [place] [address], [place] [address] Jan, [facility] [address] [id number] [address] [place] [address], [place] [address] Jan, [facility] [address] [id number] [address] [place] [address], [place] [address] Nov, [facility] [address] [id number] [address] [place] [address], [place] [address] Nov, [facility] [address] [id number] [address] [place] [address], [place] [address] Nov, [facility] [address] [id number] [address] [place] [address], [place] [address] Nov, [facility] [address] [id number] [address] [place] [address], [place] [address] Nov, [facility] [address] [id number] [address] [place] [address], [place] [address] Nov, [facility] [address] [id number] [address] [place] [address], [place] [address] Nov, [facility] [address] [id number] [address] [place] [address], [place] [address] Nov, [facility] [address] [id number] [address] [place] [address], [place] [address] Nov, [facility] [address] [id number] [address] [place] [address], [place] [address] Nov, [facility] [address] [id number] [address] [place] [address], [place] [address] Oct, [facility] [address] [id number] [address] [place] [address], [place] [address] Oct, [facility] [address] [id number] [address] [place] [address], [place] [address] Oct, [facility] [address] [id number] [address] [place] [address], [place] [address] Oct, [facility] [address] [id number] [address] [place] [address], [place] [address] Sep, [facility] [address] [id number] [address] [place] [address], [place] [address] Sep, [facility] [address] [id number] [address] [place] [address], [place] [address] Aug, [facility] [address] [id number] [address] [place] [address], [place] [address] Aug, [facility] [address] [id number] [address] [place] [address], [place] [address] Aug, [facility] [address] [id number] [address] [place] [address], [place] [address] Aug, [facility] [address] [id number] [address] [place] [address], [place] [address] Aug, [facility] [address] [id number] [address] [place] [address], [place] [address] Aug, [facility] [address] [id number] [address] [place] [address], [place] [address] Aug, [facility] [address] [id number] [address] [place] [address], [place] [address] Aug, [facility] [address] [id number] [address] [place] [address], [place] [address] Jul, [facility] [address] [id number] [address] [place] [address], [place] [address] Jul, [facility] [address] [id number] [address] [place] [address], [place] [address] Jul, [facility] [address] [id number] [address] [place] [address], [place] [address] Jul, [facility] [address] [id number] [address] [place] [address], [place] [address] Jul, [facility] [address] [id number] [address] [place] [address], [place] [address] Jun, [facility] [address] [id number] [address] [place] [address], [place] [address] May, [facility] [address] [id number] [address] [place] [address], [place] [address] Apr, [facility] [address] [id number] [address] [place] [address], [place] [address] February, [facility] [address] [id number] [address] [place] [address], [place] [address] Jan, [facility] [address] [id number] [address] [place] [address], [place] [address] Jan, [facility] [address] [id number] [address] [place] [address], [place] [address] Dec, [facility] [address] [id number] [address] [place] [address], [place] [address] Dec, [facility] [address] [id number] [address] [place] [address], [place] [address] Dec, [facility] [address] [id number] [address] [place] [address], [place] [address] Nov, [facility] [address] [id number] [address] [place] [address], [place] [address] Nov, [facility] [address] [facility] [id number] [address] [place] [address] Nov, [facility] [address] [facility] [id number] [address] [place] [phone] Nov, IMMUNIZATIONS No Known Immunizations SOCIAL HISTORY Never Assessed REASON FOR VISIT Cardiology f/u PLAN OF CARE Activity Details Follow Up after testing Reason: VITAL SIGNS Height 62 in 2018-02-08 Weight 161 lbs 2018-02-08 Heart Rate 64 bpm 2018-02-08 Oximetry 97 % 2018-02-08 BMI 29.44 kg/m2 2018-02-08 Blood pressure systolic 158 mmHg 2018-02-08 Blood pressure diastolic 80 mmHg 2018-02-08 MEDICATIONS Medication Instructions Dosage Frequency Start Date End Date Duration S tatus Bevespi Aerosphere 9-4.8 MCG/ACT Inhalation Twice a day 2 puffs 12h May, Active Crestor 20 mg Orally Once a day 1 tablet 24h Apr, 90 days Active Lisinopril 40 mg Orally Once a day 1 tablet Once a day Orally 24h Active Flovent HFA 110 MCG/ACT Inhalation Twice a day (PALS) 2 puff Oct, 30 days Active Norvasc 10 MG Orally Once a day 1 tablet 24h 30 days Active Celebrex 200 mg Orally Once a day 1 capsule with food 24h May, 17 Active Ventolin HFA 108 (90 Base) MCG/ACT Inhalation every 4 hrs 2 puffs a s needed 4h Apr, Active Fish Oil 500 mg Orally 3 times a day TAKE ONE CAPSULE BY MOUTH THREE TIMES DAILY 8h 30 Active Metoprolol Tartrate 50 mg Orally Twice a day 1 tablet 12h Active Albuterol Sulfate (2.5 MG/3ML) 0.083% Inhalation Three times a day, PRN 3 ml Oct, Active Gabapentin 600 MG Orally 3 times [...] Surgical History coronary angiography Dr Mane thakur [facility]- normal EF, LV function,-minimal RCA blockage <20% 1996 [facility], mild nonspecific bulbar duodenitis 1996 Surgical History carotid endarterectomy, right- [facility] 01/14 015 Surgical History Heart cath with [facility] 2013 Surgical History Colonoscopy- tubular adenoma , hyperplastic polyp- repeat Colonoscopy 12/2016 Hospitalization History heart attack 1996 Hospitalization History slurred speech, fever, left arm pain Sharifa Shah February 2015 Hospitalization History Pancreatitis 12/2015
--- OUTSIDE RECORDS SUMMARY | 2020-04-06 07:00 | XMS REPORT ---
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 Name Role Phone TIFFANIE CAMPOS Unavailable PROBLEMS Type Condition ICD9-CM Code LNK32-EF Code Onset Dates Condition S tatus SNOMED Code Problem Gastroesophageal reflux disease without esophagitis K21.9 Active 375715733 Problem Bilateral carotid artery disease I77.9 Active 357236730 Problem Claudication of both lower extremities I73.9 Active 715394360 Problem Mixed hyperlipidemia E78.2 Active 648047154 Problem Peripheral arterial disease I73.9 Ac tive 196858809 Problem Chronic obstructive pulmonary disease, unspecified COPD ty pe J44.9 Active 95662871 Problem PAD (peripheral artery disease) I73.9 Active 203295778 Problem Claudication I73.9 Active 7429603 6 Problem Non-rheumatic mitral regurgitation I34.0 Active 362591905 Problem Tobacco abuse Z72.0 Active 243680 05 Problem Benign essential hypertension I10 Active 7337997 Problem Hyperlipemia E78.5 Active 9921980 4 Problem Chronic bronchitis J42 Active 6 6723028 Problem Diverticulosis of intestine without bleeding, unspecified intestinal tract location K57.90 Active 18111571 Problem Abdominal bloating R14.0 Active 1 21228378 Problem Chronic pain G89.29 Active 3836686 1 Problem Fatty liver K76.0 Active 34042506 7 Problem CAD (coronary artery disease) I25.10 Active 36590406 Problem COPD (chronic obstructive pulmonary disease) wit h chronic bronchitis J44.9 Active 798030266 ALLERGIES No Information ENCOUNTERS Encounter Location Date Diagnosis [facility] [address] [id number] [place] [id number] May, [address] [id number][place] [address] Apr, CAD (coronary artery disease) I25.10 [facility] [employer] [place] [address] AVE [id number], [place] [id number] Mar, Peripheral arterial disease I73.9 [facility]wh[facility] [employer] [place] [address] AVE [id number], [place] [id number] February, Chronic pain G89.29 ; Hyperlipemia E78.5 and Benign essential hypertension I10 [facility]wh[facility] [employer] [place] [address] AVE [id number], [place] [id number] Jan, COPD (chronic obstructive pulmonary dise ase) with chronic bronchitis J44.9 [facility] [employer] [place] [address] AVE [id number], [place] [id number] Jan, [facility] [employer] [place] [address] AVE [id number], [place] [id number] Jan, Peripheral arterial disease I73.9 ; Carlo gn essential hypertension I10 ; Bilateral carotid artery disease I77.9 ; Claudication of both lower extremities I73.9 ; Mixed hyperlipidemia E78.2 ; Tobacco use Z72.0 and Non- rheumatic mitral regurgitation I34.0 [facility]whodoyouW[facility] [employer] [place] [address] AVE [id number], [place] [address]5675[address] Jan, RUQ pain R10.11 ; Gastroesophageal reflu x disease without esophagitis K21.9 and Change in stool R19.5 [facility] [address] [id number], [place] [id number] Jan, [facility] [employer] [place] [address] AVE [id number], [place] [id number] Jan, Neck pain M54.2 ; Benign essential hyper tension I10 ; COPD (chronic obstructive pulmonary disease) with chronic bronchitis J44.9 and Chronic obstructive pulmonary disease, unspecified COPD type J44.9 [facility]wh[facility] [employer] [place] [address] AVE [id number], [place] [id number] Jan, Chronic obstructive pulmonary disease, u nspecified COPD type J44.9 [facility]wh[facility]ouW[facility] [employer] [place] [address] AVE [id number], [place] [id number] Dec, [facility] [address] [id number] [place] [id number] Dec, [facility]Prescription EyewearAv [address] [id number], [place] [id number] Dec, COPD (chronic obstructive pulmonary dise ase) with chronic bronchitis J44.9 [facility] [address] [facility] [id number] [address] [address] Dec, [facility] [address] [facility] [id number] [place] [address] Dec, [facility]wh[facility] [address] [id number], [place] [id number] Nov, [facility]InstahealthTER [employer] [id number], [place] [address] Nov, Benign essential hypertension I10 and CO PD (chronic obstructive pulmonary disease) with chronic bronchitis J44.9 [facility] [address] [id number], [place] [id number] Nov, Hyperlipemia E78.5 ; Benign essential hy pertension I10 ; COPD (chronic obstructive pulmonary disease) with chronic bronchitis J44.9 ; Encounter for immunization Z23 ; Gastroesophageal reflux disease without esophagitis K21.9 and Chronic pain G89.29 [facility]health[facility] [address] [id number], [place] [id number] Oct, COPD (chronic obstructive pulmonary dise ase) with chronic bronchitis J44.9 and Chronic obstructive pulmonary disease, unspecified COPD type J44.9 [facility]wh[facility] [address] [id number], [place] [id number] Oct, COPD (chronic obstructive pulmonary dise ase) with chronic bronchitis J44.9 and Chronic obstructive pulmonary disease, unspecified COPD type J44.9 [facility] [address] [id number], [place] [id number] Oct, COPD (chronic obstructive pulmonary dise ase) with chronic bronchitis J44.9 and Chronic obstructive pulmonary disease, unspecified COPD type J44.[address] [id number], [place] [id number] Oct, Benign essential hypertension I10 and Ne ck pain M54.2 [facility] [address] [employer] [id number], [place] [address]257[address]692 Sep, PAD (peripheral artery disease) I73.9 ; Claudication of both lower extremities I73.9 ; Bilateral carotid artery disease I77.9 ; Benign essential hypertension I10 ; Hyperlipemia E78.5 and Dyspnea on exertion R06.09 [facility]Instahealth[facility] [employer] [id number], [place] [id number] Aug, Benign essential hypertension I10 ; Vannessa roesophageal reflux disease without esophagitis K21.9 and Cervical radiculopathy M54.12 [facility] [address] [id number], [place] [id number] Aug, Gastroesophageal reflux disease without esophagitis K21.9 [facility]wh[facility] [address] [id number], [place] [address] Aug, COPD (chronic obstructive pulmonary dise ase) with chronic bronchitis J44.9 [facility]wh[facility] [employer] [id number], [place] [address]0137 Jul, [facility] [address] [id number], [place] [address] Jul, Benign essential hypertension I10 [facility] [address] [id number], [place] [id number] Jul, [facility] [address] [id number], [place] [address] Jul, COPD (chronic obstructive pulmonary dise ase) with chronic bronchitis J44.9 [facility] [employer] [id number], [place] [id number] Jul, Neck pain M54.2 [facility] [address] [id number], [place] [address] Jun, Claudication of both lower extremities I 73.9 ; PAD (peripheral artery disease) I73.9 ; Bilateral carotid artery disease I77.9 ; CAD (coronary artery disease) I25.10 ; Tobacco abuse Z72.0 ; Benign essential hypertension I10 ; Hyperlipemia E78.5 and Non-rheumatic mitral valve stenosis I34.2 [employer] [address] [id number] [place] [id number] Jun, Chronic obstructive pulmonary disease, u nspecified COPD type J44.9 [facility] [address] [id number] [place] [address] May, [facility] [address] [id number] [place] [address] May, Chronic obstructive pulmonary disease, u nspecified COPD type J44.9 [facility] [address] [id number] [place] [address] May, Neck pain M54.2 ; Chronic obstructive pu lmonary disease, unspecified COPD type J44.9 and Cervical radiculopathy M54.12 [facility] [address] [id number] [place] [id number] May, [facility] [address] [id number] [place] [address] Apr, [facility] [address] [id number] [place] [address] Apr, Gastroesophageal reflux disease without esophagitis K21.9 [facility] [address] [id number] [place] [id number] Apr, COPD (chronic obstructive pulmonary dise ase) with chronic bronchitis J44.9 [facility] [address] [id number] [place] [id number] Apr, [facility] [address] [id number] [place] [id number] Apr, [facility] [address] [id number] [place] [address] Apr, COPD (chronic obstructive pulmonary dise ase) with chronic bronchitis J44.9 ; Benign essential hypertension I10 ; Tobacco abuse counseling Z71.6 and Hyperlipemia E78.[address] [facility] [address] [id number] [place] [id number] February, COPD (chronic obstructive pulmonary dise ase) with chronic bronchitis J44.[address] [facility] [address] [id number], [place] [id number] Jan, [facility] [address] [id number], [place] [id number] Jan, COPD (chronic obstructive pulmonary dise ase) with chronic bronchitis J44.9 [facility] [address] [id number], [place] [id number] Oct, COPD (chronic obstructive pulmonary dise ase) with chronic bronchitis J44.9 [facility] [address] [id number], [place] [id number] Oct, Winter itch L29.[address] [facility] [address] [id number], [place] [id number] Oct, COPD (chronic obstructive pulmonary dise ase) with chronic bronchitis J44.9 ; Benign essential hypertension I10 ; Tobacco abuse Z72.0 and Gastroesophageal reflux disease without esophagitis K21.[address] [facility] [address] [id number], [place] 533440991 Sep, Benign essential hypertension I10 [facility] [address] [id number], [place] [id number] Aug, [facility] [address] [id number] [place] [id number] Jul, [facility] [id number], [place] [id number] Apr, [facility] [id number] [place] [address]80249286 Apr, Abdominal bloating R14.0 ; Fatty liver K 76.0 ; Diverticulosis of intestine without bleeding, unspecified intestinal tract location K57.90 ; Chronic obstructive pulmonary disease, unspecified COPD type J44.9 and Benign essential hypertension I10 [facility] [address] [id number], [place] [id number] Apr, Mild early onset dysthymic disorder, in partial remission, with melancholic features, 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 [facility]Av Sanchez[address] [place] [address] AVE [id number], [place] [id number] Mar, Abdominal muscle strain, initial encount er S39.011A [facility]Av [address] [id number], [place] [id number] Jan, Pancreatitis K85.9 ; Abdominal bloating R14.0 ; Chronic bronchitis J42 and Chronic pain G89.29 [facility]Av [place] [address] [place] [address] AVE [id number], [place] 815238854 Nov, [facility]Av [facility] [address] [place] [address] [id number], [place] 088472749 Nov, [facility] [address] [place] [address] AVE [id number], [place] [id number] Nov, Chronic bronchitis J42 ; Tobacco abuse Z 72.0 and Tobacco abuse counseling Z71.6 [facility]Av [address] [place] [address] AVE [id number], [place] [id number] Oct, [facility] [address] [place] [address] AVE [id number], [place] 587157664 Oct, Chronic bronchitis J42 ; Tobacco abuse Z 72.0 and Benign essential hypertension I10 [facility] [address] [id number], [place] 193860891 Oct, Chronic bronchitis J42 ; Tobacco abuse Z 72.0 ; Tobacco abuse counseling Z71.6 ; Benign essential hypertension I10 and Hyperlipemia E78.5 [facility] [address] [facility] [id number] [place] [address] Sep, [facility] [address] [id number], [place] [id number] Jul, [facility] [address] [facility] [id number] [address] [place] [address] Jul, Essential (primary) hyperten aida I10 [facility] [address] [place] [id number] [address] [place] [address] Jul, [facility] [address] [id number], [place] [id number] Jul, [facility] [address] [place] [address] [id number] [place] [address] [id number] Jun, Benign essential hypertension 401.1 ; Ge neralized edema 782.3 ; Chronic pain 338.29 and Hyperlipemia 272.[address] [id number] [place] [address] [id number] May, Upper respiratory infection 465.9 and Co ugh 786.[address] [id number] [place] [address] [id number] Mar, Upper respiratory infection 465.9 ; 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 and Cough 786.[address] [id number], [place] [id number] February, [address] [id number] [place] [address] [id number] February, Status post bilateral carotid endarterec vito V45.89 ; CAD (coronary artery disease) 414.00 ; Benign essential hypertension 401.1 ; Hyperlipemia 272.4 ; Tobacco abuse 305.1 ; Tobacco abuse counseling V65.42 and Chronic bronchitis 491.9 [facility] [address] [facility] [id number] [address] [place] [address] Jan, [facility] [address] [facility] [id number] [address] [place] [address] Jan, [facility] [address] [place] [id number] [address] [place] [address] Dec, [facility] [address] [facility] [id number] [address] [place] [address] Dec, [facility] [address] [id number] [address] [place] [address], [place] [address] Nov, 2014 [facility] [address] [id number] [address] [place] [address], [place] [address] Nov, 2014 [facility] [address] [id number] [address] [place] [address], [place] [address] Nov, 2014 [facility] [address] [id number] [address] [place] [address], [place] [address] Nov, 2014 [facility] [address] [id number] [address] [place] [address], [place] [address] Nov, 2014 [facility] [address] [id number] [address] [place] [address], [place] [address] Nov, 2014 [facility] [address] [id number] [address] [place] [address], [place] [address] Nov, 2014 [facility] [address] [id number] [address] [place] [address], [place] [address] Nov, 2014 [facility] [address] [id number] [address] [place] [address], [place] [address] Nov, [facility] [address] [id number] [address] [place] [address], [place] [address] Oct, [facility] [address] [id number] [address] [place] [address], [place] [address] Oct, [facility] [address] [id number] [address] [place] [address], [place] [address] Oct, [facility] [address] [id number] [address] [place] [address], [place] [address] Oct, [facility] [address] [id number] [address] [place] [address], [place] [address] Oct, [facility] [address] [id number] [address] [place] [address], [place] [address] Oct, [facility] [address] [id number] [address] [place] [address], [place] [address] Oct, [facility] [address] [id number] [address] [place] [address], [place] [address] Oct, [facility] [address] [id number] [address] [place] [address], [place] [address] Oct, [facility] [address] [id number] [address] [place] [address], [place] [address] Oct, [facility] [place] [address] [id number] [place] [id number] Oct, [facility] [address] [id number] [address] [place] [address], [place] [address] Oct, [facility] [address] [id number] [address] [place] [address], [place] [address] Sep, [facility] [address] [id number] [address] [place] [address] Sep, [facility] [address] [id number] [address] [place] [address], [place] [address] Aug, [facility] [address] [id number] [address] [place] [address], [place] [address] Aug, [facility] [address] [id number] [address] [place] [address], [place] [address] Aug, [facility] [address] [id number] [address] [place] [address], [place] [address] Aug, [facility] [address] [id number] [address] [place] [address], [place] [address] Jul, [facility] [address] [id number] [address] [place] [address], [place] [address] Jul, [facility] [address] [id number] [address] [place] [address], [place] [address] Jun, [facility] [address] [id number] [address] [place] [address], [place] [address] Jun, [facility] [address] [id number] 100[facility] [place] [address] May, [facility] [address] [id number] [address] [place] [address], [place] [address] May, [facility] [address] [id number] [address] [place] [address], [place] [address] May, [facility] [address] [id number] [address] [place] [address], [place] [address] May, [facility] [address] [id number] [address] [place] [address], [place] [address] Jan, [facility] [address] [id number] [address] [place] [address], [place] [address] Jan, [facility] [address] [id number] [address] [place] [address], [place] [address] Nov, [facility] [address] [id number] [address] [place] [address], [place] [address] Nov, [facility] [address] [id number] [address] [place] [address], [place] [address] Nov, [facility] [address] [id number] [address] [place] [address], [place] [address] Nov, [facility] [address] [id number] [address] [place] [address], [place] [address] Nov, [facility] [address] [id number] [address] [place] [address], [place] [address] Nov, [facility] [address] [id number] [address] [place] [address], [place] [address] Nov, [facility] [address] [id number] [address] [place] [address], [place] [address] Nov, [facility] [address] [id number] [address] [place] [address], [place] [address] Nov, [facility] [address] [id number] [address] [place] [address] Nov, [facility] [address] [id number] [address] [place] [address], [place] [address] Oct, [facility] [address] [id number] [address] [place] [address], [place] [address] Oct, [facility] [address] [id number] [address] [place] [address], [place] [address] Oct, [facility] [address] [id number] [address] [place] [address], [place] [address] Oct, [facility] [address] [id number] [address] [place] [address], [place] [address] Sep, [facility] [address] [id number] [address] [place] [address], [place] [address] Sep, [facility] [address] [id number] [address] [place] [address] Aug, [facility] [address] [id number] [address] [place] [address], [place] [address] Aug, [facility] [address] [id number] [address] [place] [address], [place] [address] Aug, [facility] [address] [id number] [address] [place] [address] Aug, [facility] [address] [id number] [address] [place] [address], [place] [address] Aug, [facility] [address] [id number] [address] [place] [address] Aug, [facility] [address] [id number] [address] [place] [address] Aug, [facility] [address] [id number] [address] [place] [address] Aug, [facility] [address] [id number] [address] [place] [id number] Jul, [facility] [address] [id number] [address] [place] [address], [place] [address] Jul, [facility] [address] [id number] [address] [place] [address], [place] [address] Jul, [facility] [address] [id number] [address] [place] [address], [place] [address] Jul, [facility] [address] [id number] [address] [place] [address], [place] [address] Jul, [facility] [address] [id number] [address] [place] [address], [place] [address] Jun, [facility] [address] [id number] [address] [place] [address], [place] [address] May, [facility] [address] [id number] [address] [place] [address], [place] [address] Apr, [facility] [address] [id number] [address] [place] [address], [place] [address] February, [facility] [address] [id number] [address] [place] [address], [place] [address] Jan, [facility] [address] [id number] [address] [place] [address], [place] [address] Jan, [facility] [address] [id number] [address] [place] [address], [place] [address] Dec, [facility] [address] [id number] [address] [place] [address], [place] [address] Dec, [facility] [address] [id number] [address] [place] [address], [place] [address] Dec, [facility] [address] [id number] [address] [place] [address], [place] [address] Nov, [facility] [address] [id number] [address] [place] [address], [place] [address] Nov, [facility] [address] [id number] [address] [place] [address], [place] [address] Nov, [facility] [address] [facility] [id number] [address] [place] [address] Nov, IMMUNIZATIONS No Known Immunizations SOCIAL HISTORY Never Assessed REASON FOR VISIT Medication refill request PLAN OF CARE VITAL SIGNS MEDICATIONS Medication Instructions Dosage Frequency Start Date End Date Duration S tatus Flovent HFA 110 MCG/ACT Inhalation Twice a [...] Surgical History carotid endarterectomy, right- [facility] 01/14 015 Surgical History Heart cath with PTCA 2013 Surgical History Colonoscopy- tubular adenoma , hyperplastic polyp- repeat Colonoscopy 12/2016 Hospitalization History heart attack 1996 Hospitalization History slurred speech, fever, left arm pain Sharifa Shah February 2015 Hospitalization History Pancreatitis 12/2015
--- OUTSIDE RECORDS SUMMARY | 2020-04-06 07:00 | XMS REPORT ---
Author Author Jermaine CAMPOS Organization [facility] Address [address] [place] [address] Care Team Providers Care Individual Pension Adviser Name Role Phone TIFFANIE CAMPOS Unavailable PROBLEMS Type Condition ICD9-CM Code SNG17-KF Code Onset Dates Condition S tatus SNOMED Code Problem Gastroesophageal reflux disease without esophagitis K21.9 Active 931799624 Problem Bilateral carotid artery disease I77.9 Active 630825590 Problem Claudication of both lower extremities I73.9 Active 894547680 Problem Mixed hyperlipidemia E78.2 Active 711929450 Problem Peripheral arterial disease I73.9 Ac tive 197912856 Problem Chronic obstructive pulmonary disease, unspecified COPD ty pe J44.9 Active 64374455 Problem PAD (peripheral artery disease) I73.9 Active 638267920 Problem Claudication I73.9 Active 9898134 6 Problem Non-rheumatic mitral regurgitation I34.0 Active 808389038 Problem Tobacco abuse Z72.0 Active 076361 05 Problem Benign essential hypertension I10 Active 5641185 Problem Hyperlipemia E78.5 Active 1483026 4 Problem Chronic bronchitis J42 Active 6 2602779 Problem Diverticulosis of intestine without bleeding, unspecified intestinal tract location K57.90 Active 49312816 Problem Abdominal bloating R14.0 Active 1 26179675 Problem Chronic pain G89.29 Active 0481002 1 Problem Fatty liver K76.0 Active 75260946 7 Problem CAD (coronary artery disease) I25.10 Active 95039276 Problem COPD (chronic obstructive pulmonary disease) wit h chronic bronchitis J44.9 Active 766980531 ALLERGIES No Known Allergies ENCOUNTERS Encounter Location Date Diagnosis [facility] [address] [facility] [id number] [place], [place] [id number] May, [address] [id number] [place] [address] Apr, CAD (coronary artery disease) I25.10 [email or web address] [place] [address] AVE [id number] [place] [id number] Mar, Peripheral arterial disease I73.9 [facility] [address] [id number] [place] [id number] February, Chronic pain G89.29 ; Hyperlipemia E78.5 and Benign essential hypertension I10 [email or web address] [place] [address] AVE [id number] [place] [id number] Jan, COPD (chronic obstructive pulmonary dise ase) with chronic bronchitis J44.9 [facility] [email or web address] [place] [address] AVE [id number] [place] [id number] Jan, [email or web address] [place] [address] AVE [id number] [place] [address] Jan, Peripheral arterial disease I73.9 ; Carlo gn essential hypertension I10 ; Bilateral carotid artery disease I77.9 ; Claudication of both lower extremities I73.9 ; Mixed hyperlipidemia E78.2 ; Tobacco use Z72.0 and Non- rheumatic mitral regurgitation I34.0 [email or web address] [place] [address] AVE [id number] [place] [address] Jan, RUQ pain R10.11 ; Gastroesophageal reflu x disease without esophagitis K21.9 and Change in stool R19.5 [email or web address] [place] [address] AVE [id number] [place] [id number] Jan, [email or web address] [place] [address] AVE [id number] [place] [address] Jan, Neck pain M54.2 ; Benign essential hyper tension I10 ; COPD (chronic obstructive pulmonary disease) with chronic bronchitis J44.9 and Chronic obstructive pulmonary disease, unspecified COPD type J44.9 [email or web address] [place] [address] AVE [id number] [place] [id number] Jan, Chronic obstructive pulmonary disease, u nspecified COPD type J44.9 [email or web address] [place] [address] A[address] [id number] [place] [address] Dec, [facility] [address] [id number] [place] [phone] Dec, [facility] [address] [id number] [place] [address] Dec, COPD (chronic obstructive pulmonary dise ase) with chronic bronchitis J44.9 [facility] [place] [address] [facility] [id number] [place] [address] Dec, [facility] [address] [facility] [id number] 100[place], [place] [address] Dec, [facility] [id number] [place] [address] Nov, [email or web address] [address] [id number] [place] [address] Nov, Benign essential hypertension I10 and CO PD (chronic obstructive pulmonary disease) with chronic bronchitis J44.9 [facility] [address] [id number] [place] [id number] Nov, Hyperlipemia E78.5 ; Benign essential hy pertension I10 ; COPD (chronic obstructive pulmonary disease) with chronic bronchitis J44.9 ; Encounter for immunization Z23 ; Gastroesophageal reflux disease without esophagitis K21.9 and Chronic pain G89.29 [email or web address] [place] [address] AVE [id number] [place] [id number] Oct, COPD (chronic obstructive pulmonary dise ase) with chronic bronchitis J44.9 and Chronic obstructive pulmonary disease, unspecified COPD type J44.9 [facility] [address] [id number] [place] [address] Oct, COPD (chronic obstructive pulmonary dise ase) with chronic bronchitis J44.9 and Chronic obstructive pulmonary disease, unspecified COPD type J44.9 [facility] [address] [id number] [place] [address] Oct, COPD (chronic obstructive pulmonary dise ase) with chronic bronchitis J44.9 and Chronic obstructive pulmonary disease, unspecified COPD type J44.9 [facility] [address] [id number] [place] [id number] Oct, Benign essential hypertension I10 and Ne ck pain M54.2 [email or web address] [id number] [place] [address] Sep, PAD (peripheral artery disease) I73.9 ; Claudication of both lower extremities I73.9 ; Bilateral carotid artery disease I77.9 ; Benign essential hypertension I10 ; Hyperlipemia E78.5 and Dyspnea on exertion R06.09 [facility] [email or web address] [id number] [place] [address] Aug, Benign essential hypertension I10 ; Vannessa roesophageal reflux disease without esophagitis K21.9 and Cervical radiculopathy M54.12 [facility] [email or web address] [id number] [place] [address] Aug, Gastroesophageal reflux disease without esophagitis K21.9 [email or web address] [id number] [place] [address] Aug, COPD (chronic obstructive pulmonary dise ase) with chronic bronchitis J44.9 [email or web address] [id number] [place] [address] Jul, [facility] [email or web address] [id number] [place] [address] Jul, Benign essential hypertension I10 [email or web address] [id number] [place] [address] Jul, [email or web address] [id number] [place] [address] Jul, COPD (chronic obstructive pulmonary dise ase) with chronic bronchitis J44.9 [facility] [email or web address] [id number] [place] [address] Jul, Neck pain M54.2 [facility] inFreeDA AVE [id number] [place] [address] Jun, Claudication of both lower extremities I 73.9 ; PAD (peripheral artery disease) I73.9 ; Bilateral carotid artery disease I77.9 ; CAD (coronary artery disease) I25.10 ; Tobacco abuse Z72.0 ; Benign essential hypertension I10 ; Hyperlipemia E78.5 and Non-rheumatic mitral valve stenosis I34.[address] [address] [id number] [place] [address] Jun, Chronic obstructive pulmonary disease, u nspecified COPD type J44.9 [facility] [address] [id number] [place] [id number] May, [facility] [address] [id number] [place] [address] May, Chronic obstructive pulmonary disease, u nspecified COPD type J44.9 [facility] [address] [id number] [place] [address] May, Neck pain M54.2 ; Chronic obstructive pu lmonary disease, unspecified COPD type J44.9 and Cervical radiculopathy M54.12 [facility] [address] [address] [id number] [place] [id number] May, [facility] [address] [id number] [place] [address] Apr, [facility] [address] [id number] [place] [address] Apr, Gastroesophageal reflux disease without esophagitis K21.9 [facility] [address] [id number] [place] [address] Apr, COPD (chronic obstructive pulmonary dise ase) with chronic bronchitis J44.9 [facility] [address] [id number] [place] [id number] Apr, [facility] [address] [id number] [place] [address] Apr, [facility] [address] [id number] [place] [address] Apr, COPD (chronic obstructive pulmonary dise ase) with chronic bronchitis J44.9 ; Benign essential hypertension I10 ; Tobacco abuse counseling Z71.6 and Hyperlipemia E78.[address] [facility] [address] [id number] [place] [address] February, COPD (chronic obstructive pulmonary dise ase) with chronic bronchitis J44.[address] [facility] [address] [address] [id number] [place] [address] Jan, [facility] [address] [id number] [place] [id number] Jan, COPD (chronic obstructive pulmonary dise ase) with chronic bronchitis J44.9 [facility] [address] [id number] [place] [address] Oct, COPD (chronic obstructive pulmonary dise ase) with chronic bronchitis J44.9 [facility] [address] [id number] [place] [address] Oct, Winter itch L29.[address] [facility] [address] [id number] [place] 6499[address] Oct, COPD (chronic obstructive pulmonary dise ase) with chronic bronchitis J44.9 ; Benign essential hypertension I10 ; Tobacco abuse Z72.0 and Gastroesophageal reflux disease without esophagitis K21.[address] [facility] [address] [address] [id number] [place] [address]77[address] Sep, Benign essential hypertension I10 [facility] [address] [address] [id number] [place] [id number] Aug, [facility] [address] [id number] [place] [address] Jul, [facility] [address] [id number] [place] [address]668[address] Apr, [facility] [address] [id number] [place], [place] [address] Apr, Abdominal bloating R14.0 ; Fatty liver K 76.0 ; Diverticulosis of intestine without bleeding, unspecified intestinal tract location K57.90 ; Chronic obstructive pulmonary disease, unspecified COPD type J44.9 and Benign essential hypertension I10 [facility] [address] [place] [address] AVE [id number] [place] [address] Apr, Mild early onset dysthymic disorder, in partial remission, with melancholic features, 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 [facility] [address] [id number] [place] [address] Mar, Abdominal muscle strain, initial encount er S39.011A [facility] [address] [id number] [place] 64[address] Jan, Pancreatitis K85.9 ; Abdominal bloating R14.0 ; Chronic bronchitis J42 and Chronic pain G89.29 [facility] [address] [id number] [place] [address] Nov, [facility] [place] [id number] [place] [address] Nov, [facility] [place] [id number] [place] [id number] Nov, Chronic bronchitis J42 ; Tobacco abuse Z 72.0 and Tobacco abuse counseling Z71.6 [facility] [address] [id number] [place] [id number] Oct, [facility] [address] [id number] [place] [address] Oct, Chronic bronchitis J42 ; Tobacco abuse Z 72.0 and Benign essential hypertension I10 [facility] [address] [id number] [place] [address] Oct, Chronic bronchitis J42 ; Tobacco abuse Z 72.0 ; Tobacco abuse counseling Z71.6 ; Benign essential hypertension I10 and Hyperlipemia E78.5 [facility] [place] [address] [facility] [id number] 100[place], [place] [address] Sep, [facility] [address] [id number] [place] [id number] Jul, [facility] [place] [address] [place] [id number] [address] [place] [address] Jul, Essential (primary) hyperten aida I10 [facility] [place] [address] [place] [id number] [address] [place] [address] Jul, [facility] [address] [facility] [address] [id number] [place] [id number] Jul, [address] [id number] [place] [id number] Jun, Benign essential hypertension 401.1 ; Ge neralized edema 782.3 ; Chronic pain 338.29 and Hyperlipemia 272.[address] [id number] [place] [id number] May, Upper respiratory infection 465.9 and Co ugh 786.[address] [id number] [place] [id number] Mar, Upper respiratory infection 465.9 ; Toba tobacco blender abuse 305.1 and Cough 786.[address] [id number] [place] [id number] February, [address] [id number] [place] [id number] February, Status post bilateral carotid endarterec vito V45.89 ; CAD (coronary artery disease) 414.00 ; Benign essential hypertension 401.1 ; Hyperlipemia 272.4 ; Tobacco abuse 305.1 ; Tobacco abuse counseling V65.42 and Chronic bronchitis 491.9 [facility] [place] [address] [facility] [id number] [address] [place] [address] Jan, [facility] [place] [address] [facility] [id number] [address] [place] [address] Jan, [facility] [place] [address] [place] [id number] [address] [place] [address] Dec, [facility] [place] [address] [facility] [id number] [address] [place] [address] Dec, [facility] [address] [id number] [address] [place] [address], [place] [address] Nov, 2014 [facility] [address] [id number] [address] [place] [address], [place] [address] Nov, 2014 [facility] [address] [id number] [address] [place] [address], [place] [address] Nov, 2014 [facility] [address] [id number] [address] [place] [address], [place] [address] Nov, 2014 [facility] [address] [id number] [address] [place] [address], [place] [address] Nov, 2014 [facility] [address] [id number] [address] [place] [address], [place] [address] Nov, 2014 [facility] [address] [id number] [address] [place] [address], [place] [address] Nov, 2014 [facility] [address] [id number] [address] [place] [address], [place] [address] Nov, [facility] [address] [id number] [address] [place] [address], [place] [address] Nov, [facility] [address] [id number] [address] [place] [address], [place] [address] Oct, [facility] [address] [id number] [address] [place] [address], [place] [address] Oct, [facility] [address] [id number] [address] [place] [address], [place] [address] Oct, [facility] [address] [id number] [address] [place] [address], [place] [address] Oct, [facility] [address] [id number] [address] [place] [address], [place] [address] Oct, [facility] [address] [id number] [address] [place] [address], [place] [address] Oct, [facility] [address] [id number] [address] [place] [address] Oct, [facility] [address] [id number] [address] [place] [address], [place] [address] Oct, [facility] [address] [id number] [address] [place] [address] Oct, [facility] [address] [id number] [address] [place] [address] Oct, [facility] [address] [id number] [place] [id number] Oct, [facility] [address] [id number] [address] [place] [address], [place] [address] Oct, [facility] [address] [id number] [address] [place] [address], [place] [address] Sep, [facility] [address] [id number] [address] [place] [address] Sep, [facility] [address] [id number] [address] [place] [address], [place] [address] Aug, [facility] [address] [id number] [address] [place] [address], [place] [address] Aug, [facility] [address] [id number] [address] [place] [address], [place] [address] Aug, [facility] [address] [id number] [address] [place] [address], [place] [address] Aug, [facility] [address] [id number] [address] [place] [address] Jul, [facility] [address] [id number] [address] [place] [address], [place] [address] Jul, [facility] [address] [id number] [address] [place] [address], [place] [address] Jun, [facility] [address] [id number] [address] [place] [address], [place] [address] Jun, [facility] [address] [id number] 100[facility] [place] [address] May, [facility] [address] [id number] [facility] [place] [address] May, [facility] [address] [id number] [facility] [place] [address] May, [facility] [address] [id number] [address] [place] [address], [place] [address] May, [facility] [address] [id number] [address] [place] [address], [place] [address] Jan, [facility] [address] [id number] [address] [place] [address], [place] [address] Jan, [facility] [address] [id number] [address] [place] [address], [place] [address] Nov, [facility] [address] [id number] [address] [place] [address], [place] [address] Nov, [facility] [address] [id number] [address] [place] [address], [place] [address] Nov, [facility] [address] [id number] [address] [place] [address], [place] [address] Nov, [facility] [address] [id number] [address] [place] [address], [place] [address] Nov, [facility] [address] [id number] [address] [place] [address], [place] [address] Nov, [facility] [address] [id number] [address] [place] [address], [place] [address] Nov, [facility] [address] [id number] [address] [place] [address], [place] [address] Nov, [facility] [address] [id number] [address] [place] [address], [place] [address] Nov, [facility] [address] [id number] [address] [place] [address], [place] [address] Nov, [facility] [address] [id number] [address] [place] [address], [place] [address] Oct, [facility] [address] [id number] [address] [place] [address], [place] [address] Oct, [facility] [address] [id number] [address] [place] [address], [place] [address] Oct, [facility] [address] [id number] [address] [place] [address], [place] [address] Oct, [facility] [address] [id number] [address] [place] [address], [place] [address] Sep, [facility] [address] [id number] [address] [place] [address], [place] [address] Sep, [facility] [address] [id number] [address] [place] [address], [place] [address] Aug, [facility] [address] [id number] [address] [place] [address], [place] [address] Aug, [facility] [address] [id number] [address] [place] [address], [place] [address] Aug, [facility] [address] [id number] [address] [place] [address], [place] [address] Aug, [facility] [address] [id number] [address] [place] [address], [place] [address] Aug, [facility] [address] [id number] [address] [place] [id number] Aug, [facility] [address] [id number] [address] [place] [id number] Aug, [facility] [address] [id number] [address] [place] [address], [place] [address] Aug, [facility] [address] [id number] [address] [place] [id number] Jul, [facility] [address] [id number] [address] [place] [address], [place] [address] Jul, [facility] [address] [id number] [address] [place] [address], [place] [address] Jul, [facility] [address] [id number] [address] [place] [address], [place] [address] Jul, [facility] [address] [id number] [address] [place] [address], [place] [address] Jul, [facility] [address] [id number] [address] [place] [address], [place] [address] Jun, [facility] [address] [id number] [address] [place] [address], [place] [address] May, [facility] [address] [id number] [address] [place] [address], [place] [address] Apr, [facility] [address] [id number] [address] [place] [address], [place] [address] February, [facility] [address] [id number] [address] [place] [address], [place] [address] Jan, [facility] [address] [id number] [address] [place] [address], [place] [address] Jan, [facility] [address] [id number] [address] [place] [address], [place] [address] Dec, [facility] [address] [id number] [address] [place] [address], [place] [address] Dec, [facility] [address] [id number] [address] [place] [address], [place] [address] Dec, [facility] [address] [id number] [address] [place] [address], [place] [address] Nov, [facility] [address] [id number] [address] [place] [address], [place] [id number] Nov, [facility] [address] [id number] [address] [address] Nov, [facility] [place] [address] [facility] [id number] [address], [place] [address] Nov, IMMUNIZATIONS No Known Immunizations SOCIAL HISTORY Never Assessed REASON FOR VISIT Pain (acute) started Sunday. No known injury. Started feeling like a stomach ache. hUrts worse when he eats. bferrisma PLAN OF CARE Activity Details Follow Up prn Reason: VITAL SIGNS Height 62 in 2018-01-24 Weight 164.0 lbs 2018-01-24 Temperature 97.9 degrees Fahrenheit 2018-01-24 Heart Rate 62 bpm 2018-01-24 Respiratory Rate 18 2018-01-24 Oximetry 96 % 2018-01-24 BMI 29.99 kg/m2 2018-01-24 Blood pressure systolic 146 mmHg 2018-01-24 Blood pressure diastolic 68 mmHg 2018-01-24 MEDICATIONS Medication Instructions Dosage Frequency Start Date End Date Duration S tatus Metoprolol Tartrate 50 mg Orally Twice a day 1 tablet 12h Active Ventolin HFA 108 (90 Base) MCG/ACT Inhalation every 4 hrs 2 puffs a s needed 4h Apr, Active Bevespi Aerosphere 9-4.8 MCG/ACT Inhalation Twice a day 2 puffs 12h May, Active Norvasc 5 mg Orally Once a day 1 tablet 24h Active Celebrex 200 mg Orally Once a day 1 capsule with food 24h May, 17 Active Fish Oil 500 mg Orally 3 times a day TAKE ONE CAPSULE BY MOUTH THREE TIMES DAILY 8h 30 Active Gabapentin 600 MG Orally 3 times a day 1 tablet 8h Active Tramadol HCl 50 mg Orally every 8 hrs 1 tablet as needed 8h 1 Jan, Jan, 10 days Active Albuterol Sulfate (2.5 MG/3ML) 0.083% Inhalation Three times a day, PRN 3 ml Oct, Active Aspirin 81 MG Orally Once a day 1 tablet 24h Active Crestor 20 mg Orally Once a day 1 tablet 24h Apr, 90 days Active Flovent HFA 110 MCG/ACT Inhalation Twice a day (PALS) 2 puff Oct, 30 days Active Protonix 40 mg Orally Once a day- stop omeprazole 1 tablets 2016 Active Lisinopril 40 mg Orally Once a day 1 tablet Once a day Orally 24h Active RESULTS Name Result Date Reference Range Ultrasound : Gallbladder 2018-02-01 PROCEDURES No Known procedures INSTRUCTIONS MEDICATIONS ADMINISTERED [...] [facility] normal [facility], LV function,-minimal RCA blockage <20% 1996 Surgical History EGD-Dr.Makdisi BensonByrd-mild erosive esophagitis, mild nonspecific bulbar duodenitis 1996 Surgical History carotid endarterectomy, right- [facility] 01/14 015 Surgical History Heart cath with [facility] 2013 Surgical History Colonoscopy- tubular adenoma , hyperplastic polyp- repeat Colonoscopy 12/2016 Hospitalization History heart attack 1996 Hospitalization History slurred speech, fever, left arm pain [facility] [place] February 2015 Hospitalization History Pancreatitis 12/2015
--- OUTSIDE RECORDS SUMMARY | 2020-04-06 07:00 | XMS REPORT ---
Author Author Jermaine CAMPOS Organization [facility] Address [address] [place] [address] Care Team Providers Care Consultants Intern Name Role Phone TIFFANIE CAMPOS Unavailable PROBLEMS Type Condition ICD9-CM Code VWE55-PC Code Onset Dates Condition S tatus SNOMED Code Problem Gastroesophageal reflux disease without esophagitis K21.9 Active 863528626 Problem Bilateral carotid artery disease I77.9 Active 496303175 Problem Claudication of both lower extremities I73.9 Active 257703017 Problem Mixed hyperlipidemia E78.2 Active 744264117 Problem Peripheral arterial disease I73.9 Ac tive 739680821 Problem Chronic obstructive pulmonary disease, unspecified COPD ty pe J44.9 Active 23330050 Problem PAD (peripheral artery disease) I73.9 Active 688927273 Problem Claudication I73.9 Active 1316716 6 Problem Non-rheumatic mitral regurgitation I34.0 Active 030764353 Problem Tobacco abuse Z72.0 Active 737152 05 Problem Benign essential hypertension I10 Active 0759692 Problem Hyperlipemia E78.5 Active 3999232 4 Problem Chronic bronchitis J42 Active 6 2379301 Problem Diverticulosis of intestine without bleeding, unspecified intestinal tract location K57.90 Active 67105805 Problem Abdominal bloating R14.0 Active 1 47418011 Problem Chronic pain G89.29 Active 8831466 1 Problem Fatty liver K76.0 Active 02167849 7 Problem CAD (coronary artery disease) I25.10 Active 39941950 Problem COPD (chronic obstructive pulmonary disease) wit h chronic bronchitis J44.9 Active 384674366 ALLERGIES No Information ENCOUNTERS Encounter Location Date Diagnosis [facility] [address] [id number] [place] [id number] May, [address] [id number], [place] [id number] Apr, CAD (coronary artery disease) I25.10 [facility] [address] [place] [address] AVE [id number], [place] [id number] Mar, Peripheral arterial disease I73.9 [facility] [address] [place] [address] AVE [id number], [place] [id number] February, Chronic pain G89.29 ; Hyperlipemia E78.5 and Benign essential hypertension I10 [facility] [address] [place] [address] AVE [id number], [place] [id number] Jan, COPD (chronic obstructive pulmonary dise ase) with chronic bronchitis J44.9 [facility] [address] [place] [address] AVE [id number], [place] [id number] Jan, [facility] [address] [place] [address] A[address] [id number], [place] [id number] Jan, Peripheral arterial disease I73.9 ; Carlo gn essential hypertension I10 ; Bilateral carotid artery disease I77.9 ; Claudication of both lower extremities I73.9 ; Mixed hyperlipidemia E78.2 ; Tobacco use Z72.0 and Non- rheumatic mitral regurgitation I34.0 [facility] [address] [place] [address] AVE [id number], [place] [id number] Jan, RUQ pain R10.11 ; Gastroesophageal reflu x disease without esophagitis K21.9 and Change in stool R19.5 [facility] [address] [id number], [place] [id number] Jan, [facility] [address] [place] [address] AVE [id number], [place] [id number] Jan, Neck pain M54.2 ; Benign essential hyper tension I10 ; COPD (chronic obstructive pulmonary disease) with chronic bronchitis J44.9 and Chronic obstructive pulmonary disease, unspecified COPD type J44.9 [facility] [address] [place] [address] A[address] [id number], [place] [id number] Jan, Chronic obstructive pulmonary disease, u nspecified COPD type J44.9 [facility] [address] [place] [address] A[address] [id number], [place] [id number] Dec, [facility] [id number] [place] [id number] Dec, [facility] Health[facility] [address] [id number], [place] [id number] Dec, COPD (chronic obstructive pulmonary dise ase) with chronic bronchitis J44.9 [facility] [address] [facility] [id number] [address] [place] [address] Dec, [facility] [address] [facility] [id number] [address] [address] Dec, [facility] [address] [id number], [place] [id number] Nov, [facility]ENTEREmbark HoldingsTER [address] [id number], [place] [id number] Nov, Benign essential hypertension I10 and CO PD (chronic obstructive pulmonary disease) with chronic bronchitis J44.9 [facility] [address] [id number], [place] [id number] Nov, Hyperlipemia E78.5 ; Benign essential hy pertension I10 ; COPD (chronic obstructive pulmonary disease) with chronic bronchitis J44.9 ; Encounter for immunization Z23 ; Gastroesophageal reflux disease without esophagitis K21.9 and Chronic pain G89.29 [facility]EREmb[facility] HoldingsTER [address] [id number], [place] [id number] Oct, COPD (chronic obstructive pulmonary dise ase) with chronic bronchitis J44.9 and Chronic obstructive pulmonary disease, unspecified COPD type J44.9 [facility] [address] [id number], [place] [id number] Oct, COPD (chronic obstructive pulmonary dise ase) with chronic bronchitis J44.9 and Chronic obstructive pulmonary disease, unspecified COPD type J44.9 [facility] [address] [id number], [place] [id number] Oct, COPD (chronic obstructive pulmonary dise ase) with chronic bronchitis J44.9 and Chronic obstructive pulmonary disease, unspecified COPD type J44.[address] [id number], [place] 709358484 Oct, Benign essential hypertension I10 and Ne ck pain M54.2 [facility] [address] [id number], [place] 787053524 Sep, PAD (peripheral artery disease) I73.9 ; Claudication of both lower extremities I73.9 ; Bilateral carotid artery disease I77.9 ; Benign essential hypertension I10 ; Hyperlipemia E78.5 and Dyspnea on exertion R06.09 [facility]EREmb[facility] HoldingsTER [address] [id number], [place] [id number] Aug, Benign essential hypertension I10 ; Vannessa roesophageal reflux disease without esophagitis K21.9 and Cervical radiculopathy M54.12 [facility]EREmbark HoldingsTER [address] [id number], [place] [id number] Aug, Gastroesophageal reflux disease without esophagitis K21.9 [facility] [address] [id number], [place] [id number] Aug, COPD (chronic obstructive pulmonary dise ase) with chronic bronchitis J44.9 [facility] [address] [id number], [place] 602253978 Jul, [facility]EREmbark HoldingsTER [address] [id number], [place] 579122477 Jul, Benign essential hypertension I10 [facility]ERE[facility] HoldingsTER [address] [id number], [place] [id number] Jul, [facility]ERE[facility] HoldingsTER [address] [id number], [place] [id number] Jul, COPD (chronic obstructive pulmonary dise ase) with chronic bronchitis J44.9 [facility]ERE[facility]TER [address] [id number], [place] 938309388 Jul, Neck pain M54.2 [facility]ERE[facility] HoldingsTER [address] [id number], [place] [id number] Jun, Claudication of both lower extremities I 73.9 ; PAD (peripheral artery disease) I73.9 ; Bilateral carotid artery disease I77.9 ; CAD (coronary artery disease) I25.10 ; Tobacco abuse Z72.0 ; Benign essential hypertension I10 ; Hyperlipemia E78.5 and Non-rheumatic mitral valve stenosis I34.2 [facility] [address] [address] [id number] [place] [address] Jun, Chronic obstructive pulmonary disease, u nspecified COPD type J44.9 [facility] [address] [id number] [place] [id number] May, [facility] [address] [id number] [place] [id number] May, Chronic obstructive pulmonary disease, u nspecified COPD type J44.9 [facility] [address] [id number] [place] [id number] May, Neck pain M54.2 ; Chronic obstructive pu lmonary disease, unspecified COPD type J44.9 and Cervical radiculopathy M54.12 [facility] [address] [id number] [place] [id number] May, [facility] [address] [id number] [place] [id number] Apr, [facility] [address] [id number] [place] [id number] Apr, Gastroesophageal reflux disease without esophagitis K21.9 [facility] [address] [id number] [place] [id number] Apr, COPD (chronic obstructive pulmonary dise ase) with chronic bronchitis J44.9 [facility] [address] [id number] [place] [id number] Apr, [facility] [address] [id number] [place] [id number] Apr, [facility] [address] [id number] [place] [id number] Apr, COPD (chronic obstructive pulmonary dise ase) with chronic bronchitis J44.9 ; Benign essential hypertension I10 ; Tobacco abuse counseling Z71.6 and Hyperlipemia E78.[address] [facility] [address] [id number] [place] [id number] February, COPD (chronic obstructive pulmonary dise ase) with chronic bronchitis J44.[address] [facility] [address] [id number], [place] 820227345 Jan, [facility] [address] [id number], [place] [id number] Jan, COPD (chronic obstructive pulmonary dise ase) with chronic bronchitis J44.9 [facility] [address] [id number], [place] [id number] Oct, COPD (chronic obstructive pulmonary dise ase) with chronic bronchitis J44.9 [facility] [address] [id number], [place] 883123103 Oct, Winter itch L29.[address] [facility] [address] [id number], [place] [id number] Oct, COPD (chronic obstructive pulmonary dise ase) with chronic bronchitis J44.9 ; Benign essential hypertension I10 ; Tobacco abuse Z72.0 and Gastroesophageal reflux disease without esophagitis K21.[address] [facility] [address] [id number], [place] 744684219 Sep, Benign essential hypertension I[address] [facility] [address] [id number], [place] [id number] Aug, [facility] [address] [id number] [place] 8239[address] Jul, [facility] [address] [id number], [place] [id number] Apr, [facility] [address] [id number] [place] [id number] Apr, Abdominal bloating R14.0 ; Fatty liver K 76.0 ; Diverticulosis of intestine without bleeding, unspecified intestinal tract location K57.90 ; Chronic obstructive pulmonary disease, unspecified COPD type J44.9 and Benign essential hypertension I10 [facility] [address] [id number], [place] 135463673 Apr, Mild early onset dysthymic disorder, in partial remission, with melancholic features, 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 [facility]Av [address] [place] [address] [address] [id number], [place] [id number] Mar, Abdominal muscle strain, initial encount er S39.011A [facility]Av [address] [id number], [place] [id number] Jan, Pancreatitis K85.9 ; Abdominal bloating R14.0 ; Chronic bronchitis J42 and Chronic pain G89.29 [facility] [address] [place] [address] A[address] [id number], [place] [id number] Nov, [facility] [place] [address] [id number], [place] [id number] Nov, [facility] [place] [address] AVE [id number], [place] [id number] Nov, Chronic bronchitis J42 ; Tobacco abuse Z 72.0 and Tobacco abuse counseling Z71.6 [facility]Av [address] [place] [address] [address] [id number], [place] [id number] Oct, [facility] [address] [place] [address] [address] [id number], [place] [id number] Oct, Chronic bronchitis J42 ; Tobacco abuse Z 72.0 and Benign essential hypertension I10 [facility] [address] [id number], [place] [id number] Oct, Chronic bronchitis J42 ; Tobacco abuse Z 72.0 ; Tobacco abuse counseling Z71.6 ; Benign essential hypertension I10 and Hyperlipemia E78.5 [facility] [address] [facility] [id number] [address] [address] Sep, [facility] [address] [id number], [place] [id number] Jul, [facility] [address] [facility] [id number] [address] [place] [address] Jul, Essential (primary) hyperten aida I10 [facility] [address] [place] [id number] [address] [place] [address] Jul, [facility] [address] [id number], [place] [id number] Jul, [facility] [address] [place] [address] [id number] [place] [address] [id number] Jun, Benign essential hypertension 401.1 ; Ge neralized edema 782.3 ; Chronic pain 338.29 and Hyperlipemia 272.[address] [id number] [place] [address] [id number] May, Upper respiratory infection 465.9 and Co ugh 786.[address] [id number] [place] [address] [id number] Mar, Upper respiratory infection 465.9 ; 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 and Cough 786.[address] [id number], [place] [id number] February, [address] [id number] [place] [address] [id number] February, Status post bilateral carotid endarterec vito V45.89 ; CAD (coronary artery disease) 414.00 ; Benign essential hypertension 401.1 ; Hyperlipemia 272.4 ; Tobacco abuse 305.1 ; Tobacco abuse counseling V65.42 and Chronic bronchitis 491.9 [facility] [address] [facility] [id number] [address] [place] [address] Jan, [facility] [address] [facility] [id number] [address] [place] [address] Jan, [facility] [address] [place] [id number] [address] [place] [address] Dec, [facility] [address] [facility] [id number] [address] [place] [address] Dec, [facility] [address] [id number] [address] [place] [address], [place] [address] Nov, 2014 [facility] [address] [id number] [address] [place] [address], [place] [address] Nov, 2014 [facility] [address] [id number] [address] [place] [address], [place] [address] Nov, 2014 [facility] [address] [id number] [address] [place] [address], [place] [address] Nov, 2014 [facility] [address] [id number] [address] [place] [address], [place] [address] Nov, 2014 [facility] [address] [id number] [address] [place] [address], [place] [address] Nov, 2014 [facility] [address] [id number] [address] [place] [address], [place] [address] Nov, 2014 [facility] [address] [id number] [address] [place] [address], [place] [address] Nov, 2014 [facility] [address] [id number] [address] [place] [address], [place] [address] Nov, [facility] [address] [id number] [address] [place] [address], [place] [address] Oct, [facility] [address] [id number] [address] [place] [address], [place] [address] Oct, [facility] [address] [id number] [address] [place] [address], [place] [address] Oct, [facility] [address] [id number] [address] [place] [address], [place] [address] Oct, [facility] [address] [id number] [address] [place] [address], [place] [address] Oct, [facility] [address] [id number] [address] [place] [address], [place] [address] Oct, [facility] [address] [id number] [address] [place] [address], [place] [address] Oct, [facility] [address] [id number] [address] [place] [address], [place] [address] Oct, [facility] [address] [id number] [address] [place] [address], [place] [address] Oct, [facility] [address] [id number] [address] [place] [address], [place] [address] Oct, [facility] [place] [address] [id number] [place] [id number] Oct, [facility] [address] [id number] [address] [place] [address], [place] [address] Oct, [facility] [address] [id number] [address] [place] [address], [place] [address] Sep, [facility] [address] [id number] [address] [place] [address] Sep, [facility] [address] [id number] [address] [place] [address], [place] [address] Aug, [facility] [address] [id number] [address] [place] [address], [place] [address] Aug, [facility] [address] [id number] [address] [place] [address], [place] [address] Aug, [facility] [address] [id number] [address] [place] [address], [place] [address] Aug, [facility] [address] [id number] [address] [place] [address], [place] [address] Jul, [facility] [address] [id number] [address] [place] [address], [place] [address] Jul, [facility] [address] [id number] [address] [place] [address], [place] [address] Jun, [facility] [address] [id number] [address] [place] [address], [place] [address] Jun, [facility] [address] [id number] [address] [address] May, [facility] [address] [id number] [address] [place] [address], [place] [address] May, [facility] [address] [id number] [address] [place] [address], [place] [address] May, [facility] [address] [id number] [address] [place] [address], [place] [address] May, [facility] [address] [id number] [address] [place] [address], [place] [address] Jan, [facility] [address] [id number] [address] [place] [address], [place] [address] Jan, [facility] [address] [id number] [address] [place] [address], [place] [address] Nov, [facility] [address] [id number] [address] [place] [address], [place] [address] Nov, [facility] [address] [id number] [address] [place] [address], [place] [address] Nov, [facility] [address] [id number] [address] [place] [address], [place] [address] Nov, [facility] [address] [id number] [address] [place] [address], [place] [address] Nov, [facility] [address] [id number] [address] [place] [address], [place] [address] Nov, [facility] [address] [id number] [address] [place] [address], [place] [address] Nov, [facility] [address] [id number] [address] [place] [address], [place] [address] Nov, [facility] [address] [id number] [address] [place] [address], [place] [address] Nov, [facility] [address] [id number] [address] [place] [address] Nov, [facility] [address] [id number] [address] [place] [address], [place] [address] Oct, [facility] [address] [id number] [address] [place] [address], [place] [address] Oct, [facility] [address] [id number] [address] [place] [address], [place] [address] Oct, [facility] [address] [id number] [address] [place] [address], [place] [address] Oct, [facility] [address] [id number] [address] [place] [address], [place] [address] Sep, [facility] [address] [id number] [address] [place] [address], [place] [address] Sep, [facility] [address] [id number] [address] [place] [address] Aug, [facility] [address] [id number] [address] [place] [address], [place] [address] Aug, [facility] [address] [id number] [address] [place] [address], [place] [address] Aug, [facility] [address] [id number] [address] [place] [address] Aug, [facility] [address] [id number] [address] [place] [address], [place] [address] Aug, [facility] [address] [id number] [address] [place] [address] Aug, [facility] [address] [id number] [address] [place] [address] Aug, [facility] [address] [id number] [address] [place] [address] Aug, [facility] [address] [id number] [address] [place] [address] Jul, [facility] [address] [id number] [address] [place] [address], [place] [id number] Jul, [facility] [address] [id number] [address] [place] [address], [place] [address] Jul, [facility] [address] [id number] [address] [place] [address], [place] [address] Jul, [facility] [address] [id number] [address] [place] [address], [place] [address] Jul, [facility] [address] [id number] [address] [place] [address], [place] [address] Jun, [facility] [address] [id number] [address] [place] [address], [place] [id number] May, [facility] [address] [id number] [address] [place] [address], [place] [id number] Apr, [facility] [address] [id number] [address] [place] [address], [place] [address] February, [facility] [address] [id number] [address] [place] [address], [place] [address] Jan, [facility] [address] [id number] [address] [place] [address], [place] [address] Jan, [facility] [address] [id number] [address] [place] [address], [place] [address] Dec, [facility] [address] [id number] [address] [place] [address], [place] [address] Dec, [facility] [address] [id number] [address] [place] [address], [place] [address] Dec, [facility] [address] [id number] [address] [place] [address], [place] [address] Nov, [facility] [address] [id number] [address] [place] [address], [place] [address] Nov, [facility] [address] [id number] [address] [place] [address], [place] [address] Nov, [facility] [address] [facility] [id number] [address] [place] [address] Nov, IMMUNIZATIONS No Known Immunizations SOCIAL HISTORY Never Assessed REASON FOR VISIT PLAN OF CARE VITAL SIGNS MEDICATIONS Medication Instructions Dosage Frequency Start Date End Date Duration S tatus Flovent HFA 110 MCG/ACT Inhalation Twice a day (PALS) 2 puff Oct, 30 days Active Bevespi Aerosphere 9-4.8 MCG/ACT Inhalation Twice a day 2 puffs 12h May, Active Ventolin HFA 108 (90 Base) MCG/ACT Inhalation every 4 hrs 2 puffs a s needed 4h Apr, Active Gabapentin 600 MG Orally 3 times a day 1 tablet 8h Active Fish Oil 500 mg Orally 3 times a day TAKE ONE CAPSULE BY MOUTH THREE TIMES DAILY 8h 30 Active Metoprolol Tartrate 50 mg Orally Twice a day 1 tablet 12h Active Norvasc 5 mg Orally Once a [...] Surgical History coronary angiography Dr Mane BensonByrd [place]- normal EF, LV function,-minimal RCA blockage <20% [...]
--- OUTSIDE RECORDS SUMMARY | 2020-04-06 07:00 | XMS REPORT ---
Author Author Jermaine CMAPOS Organization [facility] Address [address] [place] [address] Care Team Providers Care Family Practitioner Name Role Phone TIFFANIE CAMPOS Unavailable PROBLEMS Type Condition ICD9-CM Code YPO97-DD Code Onset Dates Condition S tatus SNOMED Code Problem Gastroesophageal reflux disease without esophagitis K21.9 Active 386823094 Problem Bilateral carotid artery disease I77.9 Active 505762446 Problem Claudication of both lower extremities I73.9 Active 952264106 Problem Mixed hyperlipidemia E78.2 Active 544431676 Problem Peripheral arterial disease I73.9 Ac tive 692686338 Problem Chronic obstructive pulmonary disease, unspecified COPD ty pe J44.9 Active 47017312 Problem PAD (peripheral artery disease) I73.9 Active 028403392 Problem Claudication I73.9 Active 1928951 6 Problem Non-rheumatic mitral regurgitation I34.0 Active 329202966 Problem Tobacco abuse Z72.0 Active 305128 05 Problem Benign essential hypertension I10 Active 5013386 Problem Hyperlipemia E78.5 Active 7240235 4 Problem Chronic bronchitis J42 Active 6 6821492 Problem Diverticulosis of intestine without bleeding, unspecified intestinal tract location K57.90 Active 16562066 Problem Abdominal bloating R14.0 Active 1 82953179 Problem Chronic pain G89.29 Active 1672763 1 Problem Fatty liver K76.0 Active 92510195 7 Problem CAD (coronary artery disease) I25.10 Active 96339960 Problem COPD (chronic obstructive pulmonary disease) wit h chronic bronchitis J44.9 Active 677848257 ALLERGIES No Information ENCOUNTERS Encounter Location Date Diagnosis [facility] [address] [facility] [address] [id number] [place] [id number] May, [facility] [place] [id number] [id number] [place] [id number] Apr, [facility] [address] [place] [address] AVE [id number] [place] [id number] Apr, CAD (coronary artery disease) I25.10 [facility] [address] [place] [address] AVE [id number] LAKE, [place] [id number] Mar, Peripheral arterial disease I73.9 [facility] [address] [id number] [place]KE[place] [id number] February, Chronic pain G89.29 ; Hyperlipemia E78.5 and Benign essential hypertension I10 [facility] [address] [place] [address] AVE [id number] LAKE[place] [id number] Jan, COPD (chronic obstructive pulmonary dise ase) with chronic bronchitis J44.9 [facility] [address] [place] [address] AVE [id number] [place] [id number] Jan, [facility] [address] [place] [address] AVE [id number] [place]KE[place] [id number] Jan, Peripheral arterial disease I73.9 ; Carlo gn essential hypertension I10 ; Bilateral carotid artery disease I77.9 ; Claudication of both lower extremities I73.9 ; Mixed hyperlipidemia E78.2 ; Tobacco use Z72.0 and Non- rheumatic mitral regurgitation I34.0 [facility] [employer] [address] [id number] [place]KE[place] [id number] Jan, RUQ pain R10.11 ; Gastroesophageal reflu x disease without esophagitis K21.9 and Change in stool R19.5 [facility] [address] [place] [address] [address] [id number] LAKE[place] [id number] Jan, [facility] [address] [place] [address] AVE [id number] [place] [id number] Jan, Neck pain M54.2 ; Benign essential hyper tension I10 ; COPD (chronic obstructive pulmonary disease) with chronic bronchitis J44.9 and Chronic obstructive pulmonary disease, unspecified COPD type J44.9 [facility] [address] [place] [address] AVE [id number] [place] 834293793 Jan, Chronic obstructive pulmonary disease, u nspecified COPD type J44.9 [facility] [address] [id number] [place]KE[place] [id number] Dec, [facility] [address] [id number] [place]KE[place] [id number] Dec, [facility] [address] [id number] [place]KE[place] [id number] Dec, COPD (chronic obstructive pulmonary dise ase) with chronic bronchitis J44.9 [facility] [address] [facility] [id number] [place] [address] Dec, [facility] [address] [facility] [id number] [place] [address] Dec, [facility] [address] [id number] LAKE, [place] [id number] Nov, [facility] [address] [facility] [address] [id number] [place] [id number] Nov, Benign essential hypertension I10 and CO PD (chronic obstructive pulmonary disease) with chronic bronchitis J44.9 [facility] [address] [id number] LAKE, [place] [address]698[address] Nov, Hyperlipemia E78.5 ; Benign essential hy pertension I10 ; COPD (chronic obstructive pulmonary disease) with chronic bronchitis J44.9 ; Encounter for immunization Z23 ; Gastroesophageal reflux disease without esophagitis K21.9 and Chronic pain G89.29 [facility] [address] [id number] [place]KE[place] [id number] Oct, COPD (chronic obstructive pulmonary dise ase) with chronic bronchitis J44.9 and Chronic obstructive pulmonary disease, unspecified COPD type J44.9 [facility] [address] [id number] LAKE, [place] [address] Oct, COPD (chronic obstructive pulmonary dise ase) with chronic bronchitis J44.9 and Chronic obstructive pulmonary disease, unspecified COPD type J44.9 [facility] [address] [id number] LAKE, [place] [id number] Oct, COPD (chronic obstructive pulmonary dise ase) with chronic bronchitis J44.9 and Chronic obstructive pulmonary disease, unspecified COPD type J44.9 [facility] [address] [id number] [place] [id number] Oct, Benign essential hypertension I10 and Ne ck pain M54.2 [facility] [address] [id number] [place] [id number] Sep, PAD (peripheral artery disease) I73.9 ; Claudication of both lower extremities I73.9 ; Bilateral carotid artery disease I77.9 ; Benign essential hypertension I10 ; Hyperlipemia E78.5 and Dyspnea on exertion R06.09 [facility] [address] [id number] [place]KE[place] [id number] Aug, Benign essential hypertension I10 ; Vannessa roesophageal reflux disease without esophagitis K21.9 and Cervical radiculopathy M54.[address] [facility] [address] [id number] [place]KE[place] [id number] Aug, Gastroesophageal reflux disease without esophagitis K21.9 [facility] [address] [id number] LAKE[place] [id number] Aug, COPD (chronic obstructive pulmonary dise ase) with chronic bronchitis J44.9 [facility] [address] [id number] LAKE, [place] [id number] Jul, [facility] [address] [id number] LAKE, [place] [id number] Jul, Benign essential hypertension I10 [facility] [address] [id number] [place] [id number] Jul, [facility] [address] [id number] [place]KE[place] [address]23964[address] Jul, COPD (chronic obstructive pulmonary dise ase) with chronic bronchitis J44.[address] [facility] [address] [id number] [place] [id number] Jul, Neck pain M54.2 [facility] [address] [id number] LAKE, [place] [id number] Jun, Claudication of both lower extremities I 73.9 ; PAD (peripheral artery disease) I73.9 ; Bilateral carotid artery disease I77.9 ; CAD (coronary artery disease) I25.10 ; Tobacco abuse Z72.0 ; Benign essential hypertension I10 ; Hyperlipemia E78.5 and Non-rheumatic mitral valve stenosis I34.2 [facility] [address] [id number] [place] [address] Jun, Chronic obstructive pulmonary disease, u nspecified COPD type J44.[address] [facility] [address] [id number] [place] [id number] May, [facility] [address] [address] [id number] [place]KE, [place] 2846726[address] May, Chronic obstructive pulmonary disease, u nspecified COPD type J44.9 [facility] [address] [id number] [place]KE, [place] [id number] May, Neck pain M54.2 ; Chronic obstructive pu lmonary disease, unspecified COPD type J44.9 and Cervical radiculopathy M54.12 [facility] [address] [id number] [place]KE, [place] [id number] May, [facility] [address] [id number] [place]KE, [place] [id number] Apr, [facility] [address] [address] [id number] [place] [address]79[address] Apr, Gastroesophageal reflux disease without esophagitis K21.[address] [facility] [address] [id number] [place] [address] Apr, COPD (chronic obstructive pulmonary dise ase) with chronic bronchitis J44.[address] [facility] [address] [id number] [place] [id number] Apr, [facility] [address] [address] [id number] [place] [id number] Apr, [facility] [address] [address] [id number] [place] [address]67228731 Apr, COPD (chronic obstructive pulmonary dise ase) with chronic bronchitis J44.9 ; Benign essential hypertension I10 ; Tobacco abuse counseling Z71.6 and Hyperlipemia E78.[address] [facility] [address] [id number] [place] [id number] February, COPD (chronic obstructive pulmonary dise ase) with chronic bronchitis J44.[address] [facility] [address] [id number] [place] [id number] Jan, [facility] [address] [id number] [place] [id number] Jan, COPD (chronic obstructive pulmonary dise ase) with chronic bronchitis J44.[address] [facility] [address] [id number] [place] [id number] Oct, COPD (chronic obstructive pulmonary dise ase) with chronic bronchitis J44.[address] [facility] [address] [id number] [place]KE, [place] 650143964 Oct, Winter itch L29.[address] [facility] [address] [id number] [place]KE[place] 034643634 Oct, COPD (chronic obstructive pulmonary dise ase) with chronic bronchitis J44.9 ; Benign essential hypertension I10 ; Tobacco abuse Z72.0 and Gastroesophageal reflux disease without esophagitis K21.[address] [facility] [address] [id number] [place]KE, [place] 095160373 Sep, Benign essential hypertension I10 [facility] [address] [id number] [place] [id number] Aug, [facility] [address] [id number] [place] [id number] Jul, [facility] [address] [id number] [place] [id number] Apr, [facility] [address] [id number] [place] [id number] Apr, Abdominal bloating R14.0 ; Fatty liver K 76.0 ; Diverticulosis of intestine without bleeding, unspecified intestinal tract location K57.90 ; Chronic obstructive pulmonary disease, unspecified COPD type J44.9 and Benign essential hypertension I10 [facility] [place] [address] AVE [id number] [place], [place] [id number] Apr, Mild early onset dysthymic disorder, in partial remission, with melancholic features, 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 [facility] [address] [id number] [place]KE, [place] 495244205 Mar, Abdominal muscle strain, initial encount er S39.011A [facility] [address] [id number] [place]KE, [place] 192903937 Jan, Pancreatitis K85.9 ; Abdominal bloating R14.0 ; Chronic bronchitis J42 and Chronic pain G89.29 [facility] [address] [id number] [place]KE, [place] [id number] Nov, [facility] [place] [address] [id number] [place]KE, [place] [id number] Nov, [facility] [address] [id number] [place]KE, [place] [id number] Nov, Chronic bronchitis J42 ; Tobacco abuse Z 72.0 and Tobacco abuse counseling Z71.6 [facility] [address] [id number] [place], [place] [id number] Oct, [facility] [place] [address] [id number] [place]KE, [place] [id number] Oct, Chronic bronchitis J42 ; Tobacco abuse Z 72.0 and Benign essential hypertension I10 [facility] [address] [id number] [place]KE, [place] [id number] Oct, Chronic bronchitis J42 ; Tobacco abuse Z 72.0 ; Tobacco abuse counseling Z71.6 ; Benign essential hypertension I10 and Hyperlipemia E78.5 [facility] [address] [facility] [id number] 100[place] [address] Sep, [facility] [address] [id number] [place], [place] 946198434 Jul, [facility] [address] [facility] [id number] [address] [place] [address] Jul, Essential (primary) hyperten aida I10 [facility] [address] [facility] [id number] [address] [place] [address] Jul, [facility] [address] [id number] [place], [place] [id number] Jul, [facility] [address] [id number] [place]KE, [place] [id number] Jun, Benign essential hypertension 401.1 ; Ge neralized edema 782.3 ; Chronic pain 338.29 and Hyperlipemia 272.[address] [id number] [place]KE, [place] [id number] May, Upper respiratory infection 465.9 and Co ugh 786.[address] [id number] [place] [id number] Mar, Upper respiratory infection 465.9 ; 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 and Cough 786.[address] [id number] LAKE, [place] [id number] February, [facility] [address] [place] [address] AVE [id number] LAKE, [place] [id number] February, Status post bilateral carotid endarterec vito V45.89 ; CAD (coronary artery disease) 414.00 ; Benign essential hypertension 401.1 ; Hyperlipemia 272.4 ; Tobacco abuse 305.1 ; Tobacco abuse counseling V65.42 and Chronic bronchitis 491.9 [facility] [address] [facility] [id number] [address] [place] [address] Jan, [facility] [address] [facility] [id number] [address] [place] [address] Jan, [facility] [address] [facility] [id number] [address] [place] [address] Dec, [facility] [address] [id number] [address] [place] [address], [place] [address] Dec, [facility] [address] [id number] [address] [place] [address], [place] [address] Nov, 2014 [facility] [address] [id number] [address] [place] [address], [place] [address] Nov, 2014 [facility] [address] [id number] [address] [place] [address], [place] [address] Nov, 2014 [facility] [address] [id number] [address] [place] [address], [place] [address] Nov, 2014 [facility] [address] [id number] [address] [place] [address], [place] [address] Nov, 2014 [facility] [address] [id number] [address] [place] [address], [place] [address] Nov, 2014 [facility] [address] [id number] [address] [place] [address], [place] [address] Nov, 2014 [facility] [address] [id number] [address] [place] [address], [place] [address] Nov, [facility] [address] [id number] [address] [place] [address], [place] [address] Nov, [facility] [address] [id number] [address] [place] [address], [place] [address] Oct, [facility] [address] [id number] [address] [place] [address] Oct, [facility] [address] [id number] [address] [place] [address], [place] [address] Oct, [facility] [address] [id number] [address] [place] [address], [place] [address] Oct, [facility] [address] [id number] [address] [place] [address], [place] [address] Oct, [facility] [address] [id number] [address] [place] [address], [place] [address] Oct, [facility] [address] [id number] [address] [place] [address], [place] [address] Oct, [facility] [address] [id number] [address] [place] [address], [place] [address] Oct, [facility] [address] [id number] [address] [place] [address], [place] [address] Oct, [facility] [address] [id number] [address] [place] [address], [place] [address] Oct, [facility] [address] [id number] [place] [id number] Oct, [facility] [address] [id number] [address] [place] [address], [place] [address] Oct, [facility] [address] [id number] [address] [place] [address], [place] [address] Sep, [facility] [address] [id number] [address] [place] [address], [place] [address] Sep, [facility] [address] [id number] [address] [place] [address], [place] [address] Aug, [facility] [address] [id number] [address] [place] [address], [place] [address] Aug, [facility] [address] [id number] [address] [place] [address], [place] [address] Aug, [facility] [address] [id number] [address] [place] [address], [place] [address] Aug, [facility] [address] [id number] [address] [place] [address], [place] [address] Jul, [facility] [address] [id number] [address] [place] [address], [place] [address] Jul, [facility] [address] [id number] [address] [place] [address], [place] [address] Jun, [facility] [address] [id number] [address] [place] [address], [place] [address] Jun, [facility] [address] [id number] [address] [place] [address], [place] [address] May, [facility] [address] [id number] [address] [place] [address], [place] [address] May, [facility] [address] [id number] [address] [place] [address], [place] [address] May, [facility] [address] [id number] [address] [place] [address], [place] [address] May, [facility] [address] [id number] [address] [place] [address], [place] [address] Jan, [facility] [address] [id number] [address] [place] [address], [place] [address] Jan, [facility] [address] [id number] [address] [place] [address], [place] [address] Nov, [facility] [address] [id number] [address] [place] [address], [place] [address] Nov, [facility] [address] [id number] [address] [place] [address], [place] [address] Nov, [facility] [address] [id number] [address] [place] [address], [place] [address] Nov, [facility] [address] [id number] [address] [place] [address], [place] [address] Nov, [facility] [address] [id number] [address] [place] [address], [place] [address] Nov, [facility] [address] [id number] [address] [place] [address], [place] [address] Nov, [facility] [address] [id number] [address] [place] [address], [place] [address] Nov, [facility] [address] [id number] [address] [place] [address] Nov, [facility] [address] [id number] [address] [place] [address], [place] [address] Nov, [facility] [address] [id number] [address] [place] [address], [place] [address] Oct, [facility] [address] [id number] [address] [place] [address], [place] [address] Oct, [facility] [address] [id number] [address] [place] [address], [place] [address] Oct, [facility] [address] [id number] [address] [place] [address], [place] [address] Oct, [facility] [address] [id number] [address] [place] [address], [place] [address] Sep, [facility] [address] [id number] [address] [place] [address] Sep, [facility] [address] [id number] [address] [place] [address], [place] [address] Aug, [facility] [address] [id number] [address] [place] [address] Aug, [facility] [address] [id number] [address] [place] [address] Aug, [facility] [address] [id number] [address] [place] [address] Aug, [facility] [address] [id number] [address] [place] [address] Aug, [facility] [address] [id number] [address] [place] [address] Aug, [facility] [address] [id number] [address] [place] [address] Aug, [facility] [address] [id number] [address] [place] [id number] Aug, [facility] [address] [id number] [address] [place] [address], [place] [address] Jul, [facility] [address] [id number] [address] [place] [address], [place] [address] Jul, [facility] [address] [id number] [address] [place] [address], [place] [address] Jul, [facility] [address] [id number] [address] [place] [address], [place] [address] Jul, [facility] [address] [id number] [address] [place] [address], [place] [address] Jul, [facility] [address] [id number] [address] [place] [address], [place] [address] Jun, [facility] [address] [id number] [address] [place] [address], [place] [address] May, [facility] [address] [id number] [address] [place] [address], [place] [address] Apr, [facility] [address] [id number] [address] [place] [address], [place] [address] February, [facility] [address] [id number] [address] [place] [address], [place] [address] Jan, [facility] [address] [id number] [address] [place] [address], [place] [address] Jan, [facility] [address] [id number] [address] [place] [address], [place] [address] Dec, [facility] [address] [id number] [address] [place] [address], [place] [address] Dec, [facility] [address] [id number] [address] [place] [address], [place] [address] Dec, [facility] [address] [id number] [address] [place] [address], [place] [address] Nov, [facility] [address] [id number] [address] [place] [phone] Nov, [facility] [address] [facility] [facility] [id number] [address] [address] Nov, [facility] [address] [facility] [address] [facility] [id number] [address] [address] Nov, IMMUNIZATIONS No Known Immunizations SOCIAL HISTORY Never Assessed REASON FOR VISIT PA for [facility] PLAN OF CARE VITAL SIGNS MEDICATIONS Unknown [...] duodenitis 1996 Surgical History carotid endarterectomy, right- [facility] 01/14 015 Surgical History Heart cath with [facility] 2013 Surgical History Colonoscopy- tubular adenoma , hyperplastic polyp- repeat Colonoscopy 12/2016 Hospitalization History heart attack 1996 Hospitalization History slurred speech, fever, left arm pain Sharifa Shah February 2015 Hospitalization History Pancreatitis 12/2015
--- OUTSIDE RECORDS SUMMARY | 2020-04-06 07:01 | XMS REPORT ---
Author Author Jermaine MEZA Organization [facility] Address [address] [place] [address] Care Team Providers Care Risk Lead Name Role Phone KIEL MEZA Unavailable PROBLEMS Type Condition ICD9-CM Code BVG33-EF Code Onset Dates Condition S tatus SNOMED Code Problem Gastroesophageal reflux disease without esophagitis K21.9 Active 397719317 Problem Bilateral carotid artery disease I77.9 Active 610196080 Problem Claudication of both lower extremities I73.9 Active 204782871 Problem Mixed hyperlipidemia E78.2 Active 174601393 Problem Peripheral arterial disease I73.9 Ac tive 016356767 Problem Chronic obstructive pulmonary disease, unspecified COPD ty pe J44.9 Active 86676278 Problem PAD (peripheral artery disease) I73.9 Active 266589956 Problem Claudication I73.9 Active 6169137 6 Problem Non-rheumatic mitral regurgitation I34.0 Active 383681514 Problem Tobacco abuse Z72.0 Active 594138 05 Problem Benign essential hypertension I10 Active 5638656 Problem Hyperlipemia E78.5 Active 0218878 4 Problem Chronic bronchitis J42 Active 6 9996073 Problem Diverticulosis of intestine without bleeding, unspecified intestinal tract location K57.90 Active 04685801 Problem Abdominal bloating R14.0 Active 1 69565249 Problem Chronic pain G89.29 Active 3478195 1 Problem Fatty liver K76.0 Active 14799285 7 Problem CAD (coronary artery disease) I25.10 Active 92449513 Problem COPD (chronic obstructive pulmonary disease) wit h chronic bronchitis J44.9 Active 353032547 ALLERGIES No Information ENCOUNTERS Encounter Location Date Diagnosis [facility] [address] [id number] [place] [id number] Mar, Peripheral arterial disease I73.9 [facility] [address] [id number] [place] [address] February, Chronic pain G89.29 ; Hyperlipemia E78.5 and Benign essential hypertension I10 [facility] [address] [id number] [place] [address] Jan, COPD (chronic obstructive pulmonary dise ase) with chronic bronchitis J44.9 [facility] [address] [id number] [place] [id number] Jan, [facility] [address] [id number] [place] [address] Jan, Peripheral arterial disease I73.9 ; Carlo gn essential hypertension I10 ; Bilateral carotid artery disease I77.9 ; Claudication of both lower extremities I73.9 ; Mixed hyperlipidemia E78.2 ; Tobacco use Z72.0 and Non- rheumatic mitral regurgitation I34.0 [facility] [id number] [place] [address] Jan, RUQ pain R10.11 ; Gastroesophageal reflu x disease without esophagitis K21.9 and Change in stool R19.5 [facility] [id number] [place] [id number] Jan, [facility] [address] [id number] [place] [address] Jan, Neck pain M54.2 ; Benign essential hyper tension I10 ; COPD (chronic obstructive pulmonary disease) with chronic bronchitis J44.9 and Chronic obstructive pulmonary disease, unspecified COPD type J44.9 [facility] [address] [id number] [place] [address] Jan, Chronic obstructive pulmonary disease, u nspecified COPD type J44.9 [facility] [address] [id number] [place] [address] Dec, [facility] [id number] [place] [address] Dec, [facility]ENTER[facility] [address] [id number] [place] [address] Dec, COPD (chronic obstructive pulmonary dise ase) with chronic bronchitis J44.9 [facility] [address] [facility] [id number] [address] [address] Dec, [facility]ENTERMAGDALENO [facility] [address] [facility] [id number] [place] [address] Dec, [facility] [address] [place] [address] AVE [id number] [place] [id number] Nov, [facility] [address] [id number] [place] [id number] Nov, Benign essential hypertension I10 and [place] PD (chronic obstructive pulmonary disease) with chronic bronchitis J44.9 [facility] [address] [id number] [place] [address] Nov, Hyperlipemia E78.5 ; Benign essential hy pertension I10 ; COPD (chronic obstructive pulmonary disease) with chronic bronchitis J44.9 ; Encounter for immunization Z23 ; Gastroesophageal reflux disease without esophagitis K21.9 and Chronic pain G89.29 [facility] [address] [place] [address] AVE [id number] [place] [address] Oct, COPD (chronic obstructive pulmonary dise ase) with chronic bronchitis J44.9 and Chronic obstructive pulmonary disease, unspecified COPD type J44.9 [facility] [address] [id number] [place] [id number] Oct, COPD (chronic obstructive pulmonary dise ase) with chronic bronchitis J44.9 and Chronic obstructive pulmonary disease, unspecified COPD type J44.9 [facility] [address] [id number] [place] [address] Oct, COPD (chronic obstructive pulmonary dise ase) with chronic bronchitis J44.9 and Chronic obstructive pulmonary disease, unspecified COPD type J44.9 [facility] [address] [id number] [place] [address] Oct, Benign essential hypertension I10 and Ne ck pain M54.2 [facility] [address] [place] [address] AVE [id number] [place] [address] Sep, PAD (peripheral artery disease) I73.9 ; Claudication of both lower extremities I73.9 ; Bilateral carotid artery disease I77.9 ; Benign essential hypertension I10 ; Hyperlipemia E78.5 and Dyspnea on exertion R06.09 [facility] [address] [id number] [place] [id number] Aug, Benign essential hypertension I10 ; Vannessa roesophageal reflux disease without esophagitis K21.9 and Cervical radiculopathy M54.12 [facility] [address] [id number] [place] [address] Aug, Gastroesophageal reflux disease without esophagitis K21.9 [facility] [address] [id number] [place] [address] Aug, COPD (chronic obstructive pulmonary dise ase) with chronic bronchitis J44.9 [facility] [address] [id number] [place] [address] Jul, [facility] [address] [id number] [place] [address] Jul, Benign essential hypertension I10 [facility] [address] [id number] [place] [address] Jul, [facility] [address] [id number] [place] [address] Jul, COPD (chronic obstructive pulmonary dise ase) with chronic bronchitis J44.9 [facility] [address] [id number] [place] [address] Jul, Neck pain M54.2 [facility] [address] [id number] [place] [address] Jun, Claudication of both lower extremities I 73.9 ; PAD (peripheral artery disease) I73.9 ; Bilateral carotid artery disease I77.9 ; CAD (coronary artery disease) I25.10 ; Tobacco abuse Z72.0 ; Benign essential hypertension I10 ; Hyperlipemia E78.5 and Non-rheumatic mitral valve stenosis I34.2 [facility]ENTER[facility] [address] [id number] [place] [address] Jun, Chronic obstructive pulmonary disease, u nspecified COPD type J44.9 [facility] [address] [id number] [place] [address] May, [facility] [address] [address] [id number] [place] [address] May, Chronic obstructive pulmonary disease, u nspecified COPD type J44.[address] [facility] [address] [id number] [place] [address] May, Neck pain M54.2 ; Chronic obstructive pu lmonary disease, unspecified COPD type J44.9 and Cervical radiculopathy M54.[address] [facility] [address] [id number] [place] [address] May, [facility] [address] [id number] [place] [address] Apr, [facility] [address] [address] [id number] [place] [address]87[address] Apr, Gastroesophageal reflux disease without esophagitis K21.9 [facility] [address] [id number] [place] [address] Apr, COPD (chronic obstructive pulmonary dise ase) with chronic bronchitis J44.9 [facility] [address] [id number] [place] [address] Apr, [facility] [address] [id number] [place] [address] Apr, [facility] [address] [id number] [place] [address] Apr, COPD (chronic obstructive pulmonary dise ase) with chronic bronchitis J44.9 ; Benign essential hypertension I10 ; Tobacco abuse counseling Z71.6 and Hyperlipemia E78.[address] [facility] [address] [id number] [place] [address] February, COPD (chronic obstructive pulmonary dise ase) with chronic bronchitis J44.[address] [facility] [address] [id number] [place] [address] Jan, [facility] [address] [address] [id number] [place] [id number] Jan, COPD (chronic obstructive pulmonary dise ase) with chronic bronchitis J44.[address] [facility] [address] [id number] [place] [address] Oct, COPD (chronic obstructive pulmonary dise ase) with chronic bronchitis J44.[address] [facility] [address] [id number] [place] [address] Oct, Winter itch L29.[address] [facility] [address] [id number] [place] [address] Oct, COPD (chronic obstructive pulmonary dise ase) with chronic bronchitis J44.9 ; Benign essential hypertension I10 ; Tobacco abuse Z72.0 and Gastroesophageal reflux disease without esophagitis K21.9 [facility] [address] [id number] [place] [address] Sep, Benign essential hypertension I10 [facility] [address] [id number] [place] [address] Aug, [facility] [address] [address] [id number] [place] 1224[address] Jul, [facility] [address] [address] [id number] [place] 2715[address] Apr, [facility] [address] [address] [id number] [place] 309[address]51 Apr, Abdominal bloating R14.0 ; Fatty liver K 76.0 ; Diverticulosis of intestine without bleeding, unspecified intestinal tract location K57.90 ; Chronic obstructive pulmonary disease, unspecified COPD type J44.9 and Benign essential hypertension I10 [address] [address] [id number] [place] [address]005[address] Apr, Mild early onset dysthymic disorder, in partial remission, with melancholic features, 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 [facility] [address] [id number] [place] [address]47[address] Mar, Abdominal muscle strain, initial encount er S39.011A [facility] [address] [id number] [place] 364377760 Jan, Pancreatitis K85.9 ; Abdominal bloating R14.0 ; Chronic bronchitis J42 and Chronic pain G89.29 [facility] [address] [facility] [address] [id number] [place] [id number] Nov, [facility] [address] [id number] [place] 059413[address] Nov, [facility] [address] [id number] [place] [address] Nov, Chronic bronchitis J42 ; Tobacco abuse Z 72.0 and Tobacco abuse counseling Z71.6 [facility] [place] [address] AVE [id number] [place] [id number] Oct, [facility] [address] [id number] [place] 4423[address] Oct, Chronic bronchitis J42 ; Tobacco abuse Z 72.0 and Benign essential hypertension I10 [facility] [address] [id number] [place] [address] Oct, Chronic bronchitis J42 ; Tobacco abuse Z 72.0 ; Tobacco abuse counseling Z71.6 ; Benign essential hypertension I10 [address] [facility] [address] [place] [id number] [address] [place] [address] Sep, [facility] [address] [place] [address] AVE [id number] [place] 552289[address] Jul, [facility] [address] [id number] [address] [place] [address] Jul, Essential (primary) hyperten aida I10 [facility] [address] [id number] [address] [place] [address] Jul, [facility] [address] [id number] [place] [id number] Jul, [facility] [address] [facility] [address] [id number] [place] 6152[address] Jun, Benign essential hypertension 401.1 ; Ge neralized edema 782.3 ; Chronic pain 338.29 and Hyperlipemia 272.4 [facility] [address] [facility] [address] [id number] [place] 448157056 May, Upper respiratory infection 465.9 and Co ugh 786.2 [facility] [place] [address] AVE [id number] [place] 059629956 Mar, Upper respiratory infection 465.9 ; 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 [address] [place] [address] Jan, [facility] [address] [place] [address] Jan, [facility] [address] [id number] [address] [place] [address] Dec, [facility] [address] [id number] [address] [place] [address] Dec, [facility] [address] [id number] [address] [place] [address] Nov, [facility] [address] [id number] [address] [place] [address] Nov, [facility] [address] [place] [address] 19 Nov, 2014 [facility] [address] [id number] [address] [place] [address], [place] [address] Nov, 2014 [facility] [address] [id number] [address] [place] [address], [place] [address] Nov, 2014 [facility] [address] [id number] [address] [place] [address], [place] [address] Nov, 2014 [facility] [address] [id number] [address] [place] [address], [place] [address] Nov, 2014 [facility] [address] [id number] [address] [place] [address], [place] [address] Nov, [facility] [address] [id number] [address] [place] [address], [place] [address] Nov, [facility] [address] [id number] [address] [place] [address], [place] [address] Oct, [facility] [address] [id number] [address] [place] [address], [place] [address] Oct, [facility] [address] [id number] [address] [place] [address], [place] [address] Oct, [facility] [address] [id number] [address] [place] [address], [place] [address] Oct, [facility] [address] [id number] [address] [place] [address], [place] [address] Oct, [facility] [address] [id number] [address] [place] [address], [place] [address] Oct, [facility] [place] [facility] [address] [id number] [address] [place] [address], [place] [address] Oct, [facility] [address] [id number] [address] [place] [address], [place] [address] Oct, [facility] [place] [facility] [address] [id number] [address] [place] [address], [place] [address] Oct, [facility] [address] [id number] [address] [place] [address], [place] [address] Oct, [facility] [address] [id number] [place]Av [place] [id number] Oct, [facility] [address] [id number] [address] [place] [address], [place] [address] Oct, [facility] [place] [facility] [address] [id number] [address] [place] [address], [place] [address] Sep, [facility] [address] [id number] [address] [place] [address], [place] [address] Sep, [facility] [place] [facility] [address] [id number] [address] [place] [address], [place] [address] Aug, [facility] [address] [id number] [address] [place] [address], [place] [address] Aug, [facility] [address] [id number] [address] [place] [address], [place] [address] Aug, [facility] [address] [id number] [address] [place] [address], [place] [address] Aug, [facility] [address] [id number] [address] [place] [address], [place] [address] Jul, [facility] [address] [id number] [address] [place] [address], [place] [address] Jul, [facility] [place] [facility] [address] [id number] [address] [place] [address] Jun, [facility] [place] [facility] [address] [id number] [address] [place] [address], [place] [address] Jun, [facility] [place] [facility] [address] [id number] [address] [place] [address], [place] [address] May, [facility] [place] [facility] [address] [id number] [address] [place] [address] May, [facility] [place] [facility] [address] [id number] [address] [place] [address] May, [facility] [address] [id number] [address] [place] [address], [place] [address] May, [facility] [address] [id number] [address] [place] [address], [place] [address] Jan, [facility] [address] [id number] [address] [place] [address], [place] [address] Jan, [facility] [address] [id number] [address] [place] [address], [place] [address] Nov, [facility] [address] [id number] [address] [place] [address], [place] [address] Nov, [facility] [address] [id number] [address] [place] [address], [place] [address] Nov, [facility] [address] [id number] [address] [place] [address], [place] [address] Nov, [facility] [address] [id number] [address] [place] [address], [place] [address] Nov, [facility] [address] [id number] [address] [place] [address], [place] [address] Nov, [facility] [address] [id number] [address] [place] [address], [place] [address] Nov, [facility] [address] [id number] [address] [place] [address], [place] [address] Nov, [facility] [address] [id number] [address] [place] [address], [place] [address] Nov, [facility] [place] [facility] [address] [id number] [address] [place] [address], [place] [address] Nov, [facility] [address] [id number] [address] [place] [address], [place] [address] Oct, [facility] [address] [id number] [address] [place] [address], [place] [address] Oct, [facility] [address] [id number] [address] [place] [address], [place] [address] Oct, [facility] [address] [id number] [address] [place] [address], [place] [address] Oct, [facility] [address] [id number] [address] [place] [address], [place] [address] Sep, [facility] [address] [id number] [address] [place] [address], [place] [address] Sep, [facility] [address] [id number] [address] [place] [address], [place] [address] Aug, [facility] [address] [id number] [address] [place] [address], [place] [address] Aug, [facility] [address] [id number] [address] [place] [address], [place] [address] Aug, [facility] [address] [id number] [address] [place] [address], [place] [address] Aug, [facility] [address] [id number] [address] [place] [address], [place] [address] Aug, [facility] [address] [id number] [address] [place] [address], [place] [address] Aug, [facility] [address] [id number] [address] [place] [address], [place] [address] Aug, [facility] [address] [id number] [address] [place] [address], [place] [address] Aug, [facility] [address] [id number] [address] [place] [address], [place] [address] Jul, [facility] [address] [id number] [address] [place] [address], [place] [address] Jul, [facility] [address] [id number] [address] [place] [address], [place] [address] Jul, [facility] [address] [id number] [address] [place] [address] Jul, [facility] [address] [id number] [address] [place] [id number] Jul, [facility] [address] [id number] [address] [place] [phone] Jun, [facility] [address] [id number] [address] [place] [phone] May, [facility] [address] [id number] [address] [place] [id number] Apr, [facility] [address] [id number] [address] [place] [phone] February, [facility] [address] [id number] [address] [place] [phone] Jan, [facility] [address] [id number] [address] [place] [id number] Jan, [facility] [address] [id number] [address] [place] [phone] Dec, [facility] [address] [id number] [address] [place] [phone] Dec, [facility] [address] [id number] [address] [place] [phone] Dec, [facility] [address] [id number] [address] [place] [phone] Nov, [facility] [address] [id number] [address] [place] [phone] Nov, [facility] [address] [id number] [address] [place] [phone] Nov, [facility] [address] [id number] [address] [place] [phone] Nov, IMMUNIZATIONS No Known Immunizations SOCIAL HISTORY Never Assessed REASON FOR VISIT PA Echo 2d PLAN OF CARE VITAL SIGNS MEDICATIONS Unknown [...] Surgical History carotid endarterectomy, right- [facility] 01/14 015 Surgical History Heart cath with [facility] 2013 Surgical History Colonoscopy- tubular adenoma , hyperplastic polyp- repeat Colonoscopy 12/2016 Hospitalization History heart attack 1996 Hospitalization History slurred speech, fever, left arm pain Sharifa Shah February 2015 Hospitalization History Pancreatitis 12/2015
--- OUTSIDE RECORDS SUMMARY | 2020-04-06 07:01 | XMS REPORT ---
Author Author Jermaine CAMPOS Organization [facility] Address [address] [place] [address] Care Team Providers Care Property Consultant Name Role Phone TIFFANIE CAMPOS Unavailable PROBLEMS Type Condition ICD9-CM Code RRA43-DK Code Onset Dates Condition S tatus SNOMED Code Problem Gastroesophageal reflux disease without esophagitis K21.9 Active 490859030 Problem Bilateral carotid artery disease I77.9 Active 739462151 Problem Claudication of both lower extremities I73.9 Active 570959090 Problem Mixed hyperlipidemia E78.2 Active 152063230 Problem Peripheral arterial disease I73.9 Ac tive 522471238 Problem Chronic obstructive pulmonary disease, unspecified COPD ty pe J44.9 Active 87179399 Problem PAD (peripheral artery disease) I73.9 Active 456209238 Problem Claudication I73.9 Active 8809887 6 Problem Non-rheumatic mitral regurgitation I34.0 Active 799310941 Problem Tobacco abuse Z72.0 Active 473216 05 Problem Benign essential hypertension I10 Active 0039141 Problem Hyperlipemia E78.5 Active 6869824 4 Problem Chronic bronchitis J42 Active 6 4155822 Problem Diverticulosis of intestine without bleeding, unspecified intestinal tract location K57.90 Active 55312951 Problem Abdominal bloating R14.0 Active 1 67299077 Problem Chronic pain G89.29 Active 9751063 1 Problem Fatty liver K76.0 Active 97392410 7 Problem CAD (coronary artery disease) I25.10 Active 28433757 Problem COPD (chronic obstructive pulmonary disease) wit h chronic bronchitis J44.9 Active 700989798 ALLERGIES No Information ENCOUNTERS Encounter Location Date Diagnosis [facility] [address] [id number] [place] [id number] May, [facility] [place] [address] [facility] [id number][place] [id number] Apr, [facility] [address] [place] [address] AVE [id number], [place] [address]69461579 Apr, CAD (coronary artery disease) I25.[address] [facility] [id number] [place] [address] AVE [id number], [place] [id number] Mar, Peripheral arterial disease I73.9 [facility] [address] [id number], [place] [id number] February, Chronic pain G89.29 ; Hyperlipemia E78.5 and Benign essential hypertension I[address] [facility] MedicalW[facility] [id number] [place] [address] A[place] [id number], [place] [id number] Jan, COPD (chronic obstructive pulmonary dise ase) with chronic bronchitis J44.[address] [facility] MedicalW[facility] [id number] [place] [address] A[address] [id number], [place] [id number] Jan, [facility] [id number] [place] [address] A[place] [id number], [place] 152938231 Jan, Peripheral arterial disease I73.9 ; Carlo gn essential hypertension I10 ; Bilateral carotid artery disease I77.9 ; Claudication of both lower extremities I73.9 ; Mixed hyperlipidemia E78.2 ; Tobacco use Z72.0 and Non- rheumatic mitral regurgitation I34.[address] [facility] [address] [id number], [place] [address] Jan, RUQ pain R10.11 ; Gastroesophageal reflu x disease without esophagitis K21.9 and Change in stool R19.[address] [facility]In[facility] MedicalW[facility] [address] [place] [address] [address] [id number], [place] [id number] Jan, [facility] [address] [place] [address] AVE [id number], [place] [id number] Jan, Neck pain M54.2 ; Benign essential hyper tension I10 ; COPD (chronic obstructive pulmonary disease) with chronic bronchitis J44.9 and Chronic obstructive pulmonary disease, unspecified COPD type J44.9 [facility] [place] [address] [place] [address] AVE [id number], [place] [id number] Jan, Chronic obstructive pulmonary disease, u nspecified COPD type J44.9 [facility] [address] [id number], [place] [id number] Dec, [facility] [address] [id number], [place] [id number] Dec, [facility] [address] [id number], [place] [id number] Dec, COPD (chronic obstructive pulmonary dise ase) with chronic bronchitis J44.9 [facility] [address] [facility] [id number] 100[place] [address] Dec, [facility] [address] [facility] [id number] 100[place], [place] [address] Dec, [facility] [address] [id number], [place] [id number] Nov, [facility] [address] [id number], [place] [id number] Nov, Benign essential hypertension I10 and CO PD (chronic obstructive pulmonary disease) with chronic bronchitis J44.9 [facility] [address] [id number], [place] [address] Nov, Hyperlipemia E78.5 ; Benign essential hy pertension I10 ; COPD (chronic obstructive pulmonary disease) with chronic bronchitis J44.9 ; Encounter for immunization Z23 ; Gastroesophageal reflux disease without esophagitis K21.9 and Chronic pain G89.[address] [facility]InP[facility] [address]W[facility] [id number], [place] [id number] Oct, COPD (chronic obstructive pulmonary dise ase) with chronic bronchitis J44.9 and Chronic obstructive pulmonary disease, unspecified COPD type J44.9 [facility] [address] [id number], [place] [id number] Oct, COPD (chronic obstructive pulmonary dise ase) with chronic bronchitis J44.9 and Chronic obstructive pulmonary disease, unspecified COPD type J44.9 [facility] [address] [id number], [place] [id number] Oct, COPD (chronic obstructive pulmonary dise ase) with chronic bronchitis J44.9 and Chronic obstructive pulmonary disease, unspecified COPD type J44.9 [facility] [address] [id number] [place] [address] Oct, Benign essential hypertension I10 and Ne ck pain M54.2 [facility] [address] [id number] [place] [id number] Sep, PAD (peripheral artery disease) I73.9 ; Claudication of both lower extremities I73.9 ; Bilateral carotid artery disease I77.9 ; Benign essential hypertension I10 ; Hyperlipemia E78.5 and Dyspnea on exertion R06.09 [facility] [address] [id number], [place] [id number] Aug, Benign essential hypertension I10 ; Vannessa roesophageal reflux disease without esophagitis K21.9 and Cervical radiculopathy M54.[address] [facility] [address] [id number], [place] [id number] Aug, Gastroesophageal reflux disease without esophagitis K21.9 [facility] [address] [id number], [place] [id number] Aug, COPD (chronic obstructive pulmonary dise ase) with chronic bronchitis J44.9 [facility] [address] [id number], [place] [address]46[address] Jul, [facility] [address] [id number], [place] [id number] Jul, Benign essential hypertension I10 [facility] [address] [id number] [place] [id number] Jul, [facility] [address] [address] [id number], [place] [id number] Jul, COPD (chronic obstructive pulmonary dise ase) with chronic bronchitis J44.[address] [facility] [address] [id number] [place] [id number] Jul, Neck pain M54.2 [facility] [address] [id number], [place] [id number] Jun, Claudication of both lower extremities I 73.9 ; PAD (peripheral artery disease) I73.9 ; Bilateral carotid artery disease I77.9 ; CAD (coronary artery disease) I25.10 ; Tobacco abuse Z72.0 ; Benign essential hypertension I10 ; Hyperlipemia E78.5 and Non-rheumatic mitral valve stenosis I34.2 [facility] [address] [id number] [place] [id number] Jun, Chronic obstructive pulmonary disease, u nspecified COPD type J44.[address] [facility] [address] [id number] [place] [id number] May, [facility] [address] [id number], [place] [id number] May, Chronic obstructive pulmonary disease, u nspecified COPD type J44.9 [facility] [address] [id number], [place] [address]766533[address] May, Neck pain M54.2 ; Chronic obstructive pu lmonary disease, unspecified COPD type J44.9 and Cervical radiculopathy M54.12 [facility] [address] [id number], [place] [id number] May, [facility] [address] [id number], [place] [id number] Apr, [facility] [address] [id number] [place] [id number] Apr, Gastroesophageal reflux disease without esophagitis K21.[address] [facility] [address] [id number] [place] [id number] Apr, COPD (chronic obstructive pulmonary dise ase) with chronic bronchitis J44.[address] [facility] [address] [id number] [place] [address]453844[address] Apr, [facility] [address] [id number] [place] [id number] Apr, [facility] [address] [id number] [place] [id number] Apr, COPD (chronic obstructive pulmonary dise ase) with chronic bronchitis J44.9 ; Benign essential hypertension I10 ; Tobacco abuse counseling Z71.6 and Hyperlipemia E78.[address] [facility] [address] [id number] [place] 80924[address] February, COPD (chronic obstructive pulmonary dise ase) with chronic bronchitis J44.[address] [facility] [address] [id number] [place] [id number] Jan, [facility] [address] [id number] [place] [id number] Jan, COPD (chronic obstructive pulmonary dise ase) with chronic bronchitis J44.[address] [facility] [address] [id number] [place] 663996943 Oct, COPD (chronic obstructive pulmonary dise ase) with chronic bronchitis J44.[address] [facility] [address] [id number], [place] [id number] Oct, Winter itch L29.[address] [facility] [address] [id number], [place] [id number] Oct, COPD (chronic obstructive pulmonary dise ase) with chronic bronchitis J44.9 ; Benign essential hypertension I10 ; Tobacco abuse Z72.0 and Gastroesophageal reflux disease without esophagitis K21.[address] [facility] [address] [id number], [place] [address]58104986 Sep, Benign essential hypertension I[address] [facility] [address] [id number] [place] [id number] Aug, [facility] [address] [id number] [place] [id number] Jul, [facility] [address] [id number] [place] [id number] Apr, [facility] [address] [address] [id number] [place] [id number] Apr, Abdominal bloating R14.0 ; Fatty liver K 76.0 ; Diverticulosis of intestine without bleeding, unspecified intestinal tract location K57.90 ; Chronic obstructive pulmonary disease, unspecified COPD type J44.9 and Benign essential hypertension I10 [facility] [address] [place] [address] A[place] [id number], [place] [id number] Apr, Mild early onset dysthymic disorder, in partial remission, with melancholic features, 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 [facility] [address] [id number], [place] [id number] Mar, Abdominal muscle strain, initial encount er S39.011A [facility] [address] [id number], [place] 936618478 Jan, Pancreatitis K85.9 ; Abdominal bloating R14.0 ; Chronic bronchitis J42 and Chronic pain G89.29 [facility] [address] [id number], [place] [id number] Nov, [facility] [place] [address] [address] [id number], [place] [id number] Nov, [facility] [address] [id number], [place] [id number] Nov, Chronic bronchitis J42 ; Tobacco abuse Z 72.0 and Tobacco abuse counseling Z71.6 [facility] [address] [id number], [place] [id number] Oct, [facility] [place] [address] [address] [id number], [place] [id number] Oct, Chronic bronchitis J42 ; Tobacco abuse Z 72.0 and Benign essential hypertension I10 [facility] [address] [id number], [place] [id number] Oct, Chronic bronchitis J42 ; Tobacco abuse Z 72.0 ; Tobacco abuse counseling Z71.6 ; Benign essential hypertension I10 and Hyperlipemia E78.5 [facility] [address] [facility] [id number] 100[place] [address] Sep, [facility] [address] [id number], [place] [id number] Jul, [facility] [address] [facility] [id number] [address] [place] [address] Jul, Essential (primary) hyperten aida I10 [facility] [address] [facility] [id number] [address] [place] [address] Jul, [facility] [address] [id number], [place] [id number] Jul, [facility] [address] [id number], [place] [id number] Jun, Benign essential hypertension 401.1 ; Ge neralized edema 782.3 ; Chronic pain 338.29 and Hyperlipemia 272.[address] [id number], [place] [id number] May, Upper respiratory infection 465.9 and Co ugh 786.[address] [id number] [place] [id number] Mar, Upper respiratory infection 465.9 ; Toba partner cco abuse 305.1 and Cough 786.[address] [id number], [place] [id number] February, [facility] [address] [place] [address] A[place] [id number], [place] [id number] February, Status post bilateral carotid endarterec vito V45.89 ; CAD (coronary artery disease) 414.00 ; Benign essential hypertension 401.1 ; Hyperlipemia 272.4 ; Tobacco abuse 305.1 ; Tobacco abuse counseling V65.42 and Chronic bronchitis 491.9 [facility] [address] [facility] [id number] [address] [place] [address] Jan, [facility] [address] [facility] [id number] [address] [place] [address] Jan, [facility] [address] [facility] [id number] [address] [place] [address] Dec, [facility] [address] [id number] [address] [place] [address], [place] [address] Dec, [facility] [address] [id number] [address] [place] [address], [place] [address] Nov, 2014 [facility] [address] [id number] [address] [place] [address], [place] [address] Nov, 2014 [facility] [address] [id number] [address] [place] [address], [place] [address] Nov, 2014 [facility] [address] [id number] [address] [place] [address], [place] [address] Nov, 2014 [facility] [address] [id number] [address] [place] [address], [place] [address] Nov, 2014 [facility] [address] [id number] [address] [place] [address], [place] [address] Nov, 2014 [facility] [address] [id number] [address] [place] [address], [place] [address] Nov, 2014 [facility] [address] [id number] [address] [place] [address], [place] [address] Nov, [facility] [address] [id number] [address] [place] [address], [place] [address] Nov, [facility] [address] [id number] [address] [place] [address], [place] [address] Oct, [facility] [address] [id number] [address] [place] [address] Oct, [facility] [address] [id number] [address] [place] [address], [place] [address] Oct, [facility] [address] [id number] [address] [place] [address], [place] [address] Oct, [facility] [address] [id number] [address] [place] [address], [place] [address] Oct, [facility] [address] [id number] [address] [place] [address], [place] [address] Oct, [facility] [address] [id number] [address] [place] [address], [place] [address] Oct, [facility] [address] [id number] [address] [place] [address], [place] [address] Oct, [facility] [address] [id number] [address] [place] [address], [place] [address] Oct, [facility] [address] [id number] [address] [place] [address], [place] [address] Oct, [facility] [address] [id number] [place] [id number] Oct, [facility] [address] [id number] [address] [place] [address], [place] [address] Oct, [facility] [address] [id number] [address] [place] [address], [place] [address] Sep, [facility] [address] [id number] [address] [place] [address], [place] [address] Sep, [facility] [address] [id number] [address] [place] [address], [place] [address] Aug, [facility] [address] [id number] [address] [place] [address], [place] [address] Aug, [facility] [address] [id number] [address] [place] [address], [place] [address] Aug, [facility] [address] [id number] [address] [place] [address], [place] [address] Aug, [facility] [address] [id number] [address] [place] [address], [place] [address] Jul, [facility] [address] [id number] [address] [place] [address], [place] [address] Jul, [facility] [address] [id number] [address] [place] [address], [place] [address] Jun, [facility] [address] [id number] [address] [place] [address], [place] [address] Jun, [facility] [address] [id number] [address] [place] [address], [place] [address] May, [facility] [address] [id number] [address] [place] [address], [place] [address] May, [facility] [address] [id number] [address] [place] [address], [place] [address] May, [facility] [address] [id number] [address] [place] [address], [place] [address] May, [facility] [address] [id number] [address] [place] [address], [place] [address] Jan, [facility] [address] [id number] [address] [place] [address], [place] [address] Jan, [facility] [address] [id number] [address] [place] [address], [place] [address] Nov, [facility] [address] [id number] [address] [place] [address], [place] [address] Nov, [facility] [address] [id number] [address] [place] [address], [place] [address] Nov, [facility] [address] [id number] [address] [place] [address], [place] [address] Nov, [facility] [address] [id number] [address] [place] [address], [place] [address] Nov, [facility] [address] [id number] [address] [place] [address], [place] [address] Nov, [facility] [address] [id number] [address] [place] [address], [place] [address] Nov, [facility] [address] [id number] [address] [place] [address], [place] [address] Nov, [facility] [address] [id number] [address] [place] [address] Nov, [facility] [address] [id number] [address] [place] [address], [place] [address] Nov, [facility] [address] [id number] [address] [place] [address], [place] [address] Oct, [facility] [address] [id number] [address] [place] [address], [place] [address] Oct, [facility] [address] [id number] [address] [place] [address], [place] [address] Oct, [facility] [address] [id number] [address] [place] [address], [place] [address] Oct, [facility] [address] [id number] [address] [place] [address], [place] [address] Sep, [facility] [address] [id number] [address] [place] [address] Sep, [facility] [address] [id number] [address] [place] [address], [place] [address] Aug, [facility] [address] [id number] [address] [place] [address] Aug, [facility] [address] [id number] [address] [place] [address] Aug, [facility] [address] [id number] [address] [place] [address] Aug, [facility] [address] [id number] [address] [place] [address] Aug, [facility] [address] [id number] [address] [place] [address] Aug, [facility] [address] [id number] [address] [place] [address] Aug, [facility] [address] [id number] [address] [place] [address] Aug, [facility] [address] [id number] [address] [place] [address], [place] [address] Jul, [facility] [address] [id number] [address] [place] [address], [place] [address] Jul, [facility] [address] [id number] [address] [place] [address], [place] [address] Jul, [facility] [address] [id number] [address] [place] [address], [place] [address] Jul, [facility] [address] [id number] [address] [place] [address], [place] [id number] Jul, [facility] [address] [id number] [address] [place] [address], [place] [id number] Jun, [facility] [address] [id number] [address] [place] [address], [place] [address] May, [facility] [address] [id number] [address] [place] [address], [place] [id number] Apr, [facility] [address] [id number] [address] [place] [address], [place] [id number] February, [facility] [address] [id number] [address] [place] [address], [place] [address] Jan, [facility] [address] [id number] [address] [place] [address], [place] [address] Jan, [facility] [address] [id number] [address] [place] [address], [place] [address] Dec, [facility] [address] [id number] [address] [place] [address], [place] [address] Dec, [facility] [address] [id number] [address] [place] [address], [place] [id number] Dec, [facility] [address] [id number] [address] [place] [address], [place] [address] Nov, [facility] [address] [id number] [address] [place] [id number] Nov, [facility] [address] [facility] [id number] [address] [address] Nov, [facility] [address] [facility] [id number] [address] [address] Nov, IMMUNIZATIONS No Known Immunizations SOCIAL HISTORY Never Assessed REASON FOR VISIT PA PLAN OF CARE VITAL SIGNS MEDICATIONS Unknown [...] duodenitis 1996 Surgical History carotid endarterectomy, right- [facility] 01/14 015 Surgical History Heart cath with [facility] 2013 Surgical History Colonoscopy- tubular adenoma , hyperplastic polyp- repeat Colonoscopy 12/2016 Hospitalization History heart attack 1996 Hospitalization History slurred speech, fever, left arm pain Sharifa Shah February 2015 Hospitalization History Pancreatitis 12/2015
--- OUTSIDE RECORDS SUMMARY | 2020-04-06 07:01 | XMS REPORT ---
Author Author Jermaine CAMPOS Organization [facility] Address [address] [place] [address] Care Team Providers Care Rn Clinician Name Role Phone TIFFANIE CAMPOS Unavailable PROBLEMS Type Condition ICD9-CM Code MMO47-GA Code Onset Dates Condition S tatus SNOMED Code Problem Gastroesophageal reflux disease without esophagitis K21.9 Active 156389826 Problem Bilateral carotid artery disease I77.9 Active 572026604 Problem Claudication of both lower extremities I73.9 Active 318212004 Problem Mixed hyperlipidemia E78.2 Active 899584566 Problem Peripheral arterial disease I73.9 Ac tive 330599196 Problem Chronic obstructive pulmonary disease, unspecified COPD ty pe J44.9 Active 64568267 Problem PAD (peripheral artery disease) I73.9 Active 230014033 Problem Claudication I73.9 Active 0850050 6 Problem Non-rheumatic mitral regurgitation I34.0 Active 730133801 Problem Tobacco abuse Z72.0 Active 033523 05 Problem Benign essential hypertension I10 Active 8869942 Problem Hyperlipemia E78.5 Active 4501604 4 Problem Chronic bronchitis J42 Active 6 3137886 Problem Diverticulosis of intestine without bleeding, unspecified intestinal tract location K57.90 Active 80645192 Problem Abdominal bloating R14.0 Active 1 71767630 Problem Chronic pain G89.29 Active 8264246 1 Problem Fatty liver K76.0 Active 58624420 7 Problem CAD (coronary artery disease) I25.10 Active 73866928 Problem COPD (chronic obstructive pulmonary disease) wit h chronic bronchitis J44.9 Active 625198452 ALLERGIES No Information ENCOUNTERS Encounter Location Date Diagnosis [facility] [address] [id number] [place] [id number] Mar, Peripheral arterial disease I73.[address] [id number] [place] [id number] February, Chronic pain G89.29 ; Hyperlipemia E78.5 and Benign essential hypertension I10 [facility] [id number] [place] [id number] Jan, COPD (chronic obstructive pulmonary dise ase) with chronic bronchitis J44.9 [facility] [address] [id number] [place] [address] Jan, [facility] [address] [id number] [place] [id number] Jan, Peripheral arterial disease I73.9 ; Carlo gn essential hypertension I10 ; Bilateral carotid artery disease I77.9 ; Claudication of both lower extremities I73.9 ; Mixed hyperlipidemia E78.2 ; Tobacco use Z72.0 and Non- rheumatic mitral regurgitation I34.0 [facility] [address] [id number] [place] [address] Jan, RUQ pain R10.11 ; Gastroesophageal reflu x disease without esophagitis K21.9 and Change in stool R19.[address] [id number] [place] [id number] Jan, [facility] [address] [id number] [place] [id number] Jan, Neck pain M54.2 ; Benign essential hyper tension I10 ; COPD (chronic obstructive pulmonary disease) with chronic bronchitis J44.9 and Chronic obstructive pulmonary disease, unspecified COPD type J44.9 [facility] [address] [id number] [place] [id number] Jan, Chronic obstructive pulmonary disease, u nspecified COPD type J44.[address] [address] [facility] [address] [id number] [place] [id number] Dec, [facility] [address] [id number] [place] [id number] Dec, [facility] [address] [id number] [place] [id number] Dec, COPD (chronic obstructive pulmonary dise ase) with chronic bronchitis J44.9 [facility] [address] [facility] [id number] [place] [address] Dec, [facility] [address] [facility] [id number] [address] [place] [address] Dec, [facility] [address] [id number] [place] [id number] Nov, [facility] [address] [id number] [place] [id number] Nov, Benign essential hypertension I10 and CO PD (chronic obstructive pulmonary disease) with chronic bronchitis J44.9 [facility] [address] [id number] [place] [address] Nov, Hyperlipemia E78.5 ; Benign essential hy pertension I10 ; COPD (chronic obstructive pulmonary disease) with chronic bronchitis J44.9 ; Encounter for immunization Z23 ; Gastroesophageal reflux disease without esophagitis K21.9 and Chronic pain G89.29 [facility] [place] [address] AVE [id number] [place] [id number] Oct, COPD (chronic obstructive pulmonary dise ase) with chronic bronchitis J44.9 and Chronic obstructive pulmonary disease, unspecified COPD type J44.9 [facility] [address] [id number] [place] [id number] Oct, COPD (chronic obstructive pulmonary dise ase) with chronic bronchitis J44.9 and Chronic obstructive pulmonary disease, unspecified COPD type J44.9 [facility] [place] [address] AVE [id number] [place] [id number] Oct, COPD (chronic obstructive pulmonary dise ase) with chronic bronchitis J44.9 and Chronic obstructive pulmonary disease, unspecified COPD type J44.9 [facility] [id number] [place] [id number] Oct, Benign essential hypertension I10 and Ne ck pain M54.2 [facility] [address] [id number] [place] [id number] Sep, PAD (peripheral artery disease) I73.9 ; Claudication of both lower extremities I73.9 ; Bilateral carotid artery disease I77.9 ; Benign essential hypertension I10 ; Hyperlipemia E78.5 and Dyspnea on exertion R06.09 [facility] [address] [id number] [place], [place] [address]08[address] Aug, Benign essential hypertension I10 ; Vannessa roesophageal reflux disease without esophagitis K21.9 and Cervical radiculopathy M54.12 [facility] [address] [id number] [place] [id number] Aug, Gastroesophageal reflux disease without esophagitis K21.9 [facility] [id number] [place] [id number] Aug, COPD (chronic obstructive pulmonary dise ase) with chronic bronchitis J44.9 [facility] [address] [id number] [place] [address] Jul, [facility] [id number] [place] [address] Jul, Benign essential hypertension I10 [facility] [id number] [place] [address]776[address] Jul, [facility] [address] [id number] [place] [id number] Jul, COPD (chronic obstructive pulmonary dise ase) with chronic bronchitis J44.9 [facility] [address] [id number] [place] [address] Jul, Neck pain M54.2 [facility] [id number] [place] [id number] Jun, Claudication of both lower extremities I 73.9 ; PAD (peripheral artery disease) I73.9 ; Bilateral carotid artery disease I77.9 ; CAD (coronary artery disease) I25.10 ; Tobacco abuse Z72.0 ; Benign essential hypertension I10 ; Hyperlipemia E78.5 and Non-rheumatic mitral valve stenosis I34.2 [facility] [id number] [place] [id number] Jun, Chronic obstructive pulmonary disease, u nspecified COPD type J44.[address] [facility] [address] [id number] [place] [address] May, [facility] [address] [id number] [place] [address] May, Chronic obstructive pulmonary disease, u nspecified COPD type J44.[address] [facility] [address] [id number] [place] [id number] May, Neck pain M54.2 ; Chronic obstructive pu lmonary disease, unspecified COPD type J44.9 and Cervical radiculopathy M54.[address] [facility] [address] [id number] [place] [address] May, [facility] [address] [id number] [place] [address] Apr, [facility] [address] [id number] [place] [address] Apr, Gastroesophageal reflux disease without esophagitis K21.9 [facility] [address] [id number] [place] [id number] Apr, COPD (chronic obstructive pulmonary dise ase) with chronic bronchitis J44.9 [facility] [address] [id number] [place] [address]45437[address] Apr, [facility] [address] [id number] [place] [id number] Apr, [facility] [address] [id number] [place] 699385487 Apr, COPD (chronic obstructive pulmonary dise ase) with chronic bronchitis J44.9 ; Benign essential hypertension I10 ; Tobacco abuse counseling Z71.6 and Hyperlipemia E78.[address] [facility] [address] [id number] [place] [address] February, COPD (chronic obstructive pulmonary dise ase) with chronic bronchitis J44.[address] [facility] [address] [id number] [place] [id number] Jan, [facility] [address] [id number] [place] [address] Jan, COPD (chronic obstructive pulmonary dise ase) with chronic bronchitis J44.[address] [facility] [address] [id number] [place] [address] Oct, COPD (chronic obstructive pulmonary dise ase) with chronic bronchitis J44.[address] [facility] [address] [id number] [place] [id number] Oct, Winter itch L29.8 [facility] [address] [id number] [place] 8681156[address] Oct, COPD (chronic obstructive pulmonary dise ase) with chronic bronchitis J44.9 ; Benign essential hypertension I10 ; Tobacco abuse Z72.0 and Gastroesophageal reflux disease without esophagitis K21.9 [facility] [address] [id number] [place] 188238900 Sep, Benign essential hypertension I10 [facility] [address] [id number] [place] [id number] Aug, [facility] [address] [id number] [place] [id number] Jul, [facility] [address] [id number] [place] [id number] Apr, [facility] [address] [id number] [place], [place] 774559550 Apr, Abdominal bloating R14.0 ; Fatty liver K 76.0 ; Diverticulosis of intestine without bleeding, unspecified intestinal tract location K57.90 ; Chronic obstructive pulmonary disease, unspecified COPD type J44.9 and Benign essential hypertension I10 [facility] [address] [id number] [place] 983856151 Apr, Mild early onset dysthymic disorder, in partial remission, with melancholic features, 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 [facility] [address] [id number] [place], [place] [id number] Mar, Abdominal muscle strain, initial encount er S39.011A [facility] [address] [id number] [place], [place] 36227[address] Jan, Pancreatitis K85.9 ; Abdominal bloating R14.0 ; Chronic bronchitis J42 and Chronic pain G89.29 [facility] [address] [id number] [place] [id number] Nov, [facility] [address] [id number] [place] [id number] Nov, [facility] [address] [id number] [place] [id number] Nov, Chronic bronchitis J42 ; Tobacco abuse Z 72.0 and Tobacco abuse counseling Z71.6 [facility] [address] [id number] [place], [place] [id number] Oct, [facility] [address] [id number] [place] [id number] Oct, Chronic bronchitis J42 ; Tobacco abuse Z 72.0 and Benign essential hypertension I10 [facility] [address] [place] [address] AVE [id number] [place], [place] [id number] Oct, Chronic bronchitis J42 ; Tobacco abuse Z 72.0 ; Tobacco abuse counseling Z71.6 ; Benign essential hypertension I10 and Hyperlipemia E78.5 [facility] [address] [id number] [address] [place] [address] Sep, [facility] [address] [id number] [place] [id number] Jul, [facility] [address] [id number] [address] [place] [phone] Jul, Essential (primary) hyperten aida I10 [facility] [address] [facility] [id number] [address] [place] [address] Jul, [facility] [address] [id number] [place], [place] [id number] Jul, [facility] [address] [id number] [place] [id number] Jun, Benign essential hypertension 401.1 ; Ge neralized edema 782.3 ; Chronic pain 338.[address] 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 and Cough 786.2 [facility] [address] [id number] [place], [place] [id number] February, [facility]ERS[facility] [facility] [address] [id number] [place], [place] 512591708 February, Status post bilateral carotid endarterec vito V45.89 ; CAD (coronary artery disease) 414.00 ; Benign essential hypertension 401.1 ; Hyperlipemia 272.4 ; Tobacco abuse 305.1 ; Tobacco abuse counseling V65.42 and Chronic bronchitis 491.9 [facility] [address] [id number] [address] [place] [address] Jan, [facility] [address] [id number] [address] [place] [phone] Jan, [facility] [address] [id number] [address] [place] [address] Dec, [facility] [address] [id number] [address] [place] [address] Dec, [facility] [address] [id number] [address] [place] [address] Nov, [facility] [address] [id number] [address] [place] [phone] Nov, [facility] [address] [id number] [address] [place] [address], [place] [address] 19 Nov, 2014 [facility] [address] [id number] [address] [place] [address], [place] [address] Nov, 2014 [facility] [address] [id number] [address] [place] [address], [place] [address] Nov, 2014 [facility] [address] [id number] [address] [place] [address], [place] [address] Nov, 2014 [facility] [address] [id number] [address] [place] [address], [place] [address] Nov, 2014 [facility] [address] [id number] [address] [place] [address], [place] [address] Nov, [facility] [address] [id number] [address] [place] [address], [place] [address] Nov, [facility] [address] [id number] [address] [place] [address], [place] [address] Oct, [facility] [address] [id number] [address] [place] [address], [place] [address] Oct, [facility] [address] [id number] [address] [place] [address], [place] [address] Oct, [facility] [address] [id number] [address] [place] [address], [place] [address] Oct, [facility] [address] [id number] [address] [place] [address], [place] [address] Oct, [facility] [address] [id number] [address] [place] [address], [place] [address] Oct, [facility] [address] [id number] [address] [place] [address], [place] [address] Oct, [facility] [address] [id number] [address] [place] [address], [place] [address] Oct, [facility] [address] [id number] [address] [place] [address], [place] [address] Oct, [facility] [address] [id number] [address] [place] [address], [place] [address] Oct, [facility] [address] [id number] [place] [id number] Oct, [facility] [address] [id number] [address] [place] [address], [place] [address] Oct, [facility] [address] [id number] [address] [place] [address], [place] [address] Sep, [facility] [address] [id number] [address] [place] [address], [place] [address] Sep, [facility] [address] [id number] [address] [place] [address], [place] [address] Aug, [facility] [address] [id number] [address] [place] [address], [place] [address] Aug, [facility] [address] [id number] [address] [place] [address], [place] [address] Aug, [facility] [address] [id number] [address] [place] [address], [place] [address] Aug, [facility] [address] [id number] [address] [place] [address], [place] [address] Jul, [facility] [address] [id number] [address] [place] [address], [place] [address] Jul, [facility] [address] [id number] [address] [place] [address] Jun, [facility] [address] [id number] [address] [place] [address], [place] [address] Jun, [facility] [address] [id number] [address] [place] [address], [place] [address] May, [facility] [address] [id number] [address] [place] [address], [place] [address] May, [facility] [address] [id number] [address] [place] [address], [place] [address] May, [facility] [address] [id number] [address] [place] [address], [place] [address] May, [facility] [address] [id number] [address] [place] [address], [place] [address] Jan, [facility] [address] [id number] [address] [place] [address], [place] [address] Jan, [facility] [address] [id number] [address] [place] [address], [place] [address] Nov, [facility] [address] [id number] [address] [place] [address], [place] [address] Nov, [facility] [address] [id number] [address] [place] [address], [place] [address] Nov, [facility] [address] [id number] [address] [place] [address], [place] [address] Nov, [facility] [address] [id number] [address] [place] [address], [place] [address] Nov, [facility] [address] [id number] [address] [place] [address], [place] [address] Nov, [facility] [address] [id number] [address] [place] [address], [place] [address] Nov, [facility] [address] [id number] [address] [place] [address], [place] [address] Nov, [facility] [address] [id number] [address] [place] [address], [place] [address] Nov, [facility] [address] [id number] [address] [place] [address], [place] [address] Nov, [facility] [address] [id number] [address] [place] [address], [place] [address] Oct, [facility] [address] [id number] [address] [place] [address], [place] [address] Oct, [facility] [address] [id number] [address] [place] [address], [place] [address] Oct, [facility] [address] [id number] [address] [place] [address], [place] [address] Oct, [facility] [address] [id number] [address] [place] [address], [place] [address] Sep, [facility] [address] [id number] [address] [place] [address] Sep, [facility] [address] [id number] [address] [place] [address], [place] [address] Aug, [facility] [address] [id number] [address] [place] [address] Aug, [facility] [address] [id number] [address] [place] [address], [place] [address] Aug, [facility] [address] [id number] [address] [place] [address] Aug, [facility] [address] [id number] [address] [place] [address], [place] [address] Aug, [facility] [address] [id number] [address] [place] [address] Aug, [facility] [address] [id number] [address] [place] [address] Aug, [facility] [address] [id number] [address] [place] [address] Aug, [facility] [address] [id number] [address] [place] [address], [place] [address] Jul, [facility] [address] [id number] [address] [place] [address] Jul, [facility] [address] [id number] [address] [place] [id number] Jul, [facility] [address] [id number] [address] [place] [id number] Jul, [facility] [address] [id number] [address] [place] [phone] Jul, [facility] [address] [id number] [address] [place] [phone] Jun, [facility] [address] [id number] [address] [place] [id number] May, [facility] [address] [id number] [address] [place] [id number] Apr, [facility] [address] [id number] [address] [place] [id number] February, [facility] [address] [id number] [address] [place] [phone] Jan, [facility] [address] [id number] [address] [place] [phone] Jan, [facility] [address] [id number] [address] [place] [id number] Dec, [facility] [address] [id number] [address] [place] [id number] Dec, [facility] [address] [id number] [address] [place] [phone] Dec, [facility] [address] [id number] [address] [place] [id number] Nov, [facility] [address] [id number] [address] [place] [id number] Nov, [facility] [address] [id number] [address] [place] [phone] Nov, [facility] [address] [id number] [address] [place] [id number] Nov, IMMUNIZATIONS No Known Immunizations SOCIAL HISTORY Never Assessed REASON FOR VISIT Medication refill request PLAN OF CARE VITAL SIGNS MEDICATIONS Medication Instructions Dosage Frequency Start Date End Date Duration S samreen Pantoja Aerosphere 9-4.8 MCG/ACT Inhalation Twice a day 2 puffs 12h 22 May, 2017 Active RESULTS No Results PROCEDURES No Known [...] 02/[address] [facility] [address] [facility], LV function,-minimal RCA blockage <20% 1996 Surgical History EGD-Dr.Makdisi BensonByrd-mild erosive esophagitis, mild nonspecific bulbar duodenitis 1996 Surgical History carotid endarterectomy, right- [facility] 01/14 015 Surgical History Heart cath with PT[facility] 2013 Surgical History Colonoscopy- tubular adenoma , hyperplastic polyp- repeat Colonoscopy 12/2016 Hospitalization History heart attack 1996 Hospitalization History slurred speech, fever, left arm pain Sharifa Shah February 2015 Hospitalization History Pancreatitis 12/2015
--- OUTSIDE RECORDS SUMMARY | 2020-04-06 07:01 | XMS REPORT ---
Author Author Jermaine MEZA Organization [facility] Address [address] [place] [address] Care Team Providers Care [employer] Manager Name Role Phone KIEL MEZA Unavailable PROBLEMS Type Condition ICD9-CM Code OMV56-KV Code Onset Dates Condition S tatus SNOMED Code Problem Gastroesophageal reflux disease without esophagitis K21.9 Active 949211192 Problem Bilateral carotid artery disease I77.9 Active 730167392 Problem Claudication of both lower extremities I73.9 Active 643903437 Problem Mixed hyperlipidemia E78.2 Active 661295964 Problem Peripheral arterial disease I73.9 Ac tive 225173534 Problem Chronic obstructive pulmonary disease, unspecified COPD ty pe J44.9 Active 37915119 Problem PAD (peripheral artery disease) I73.9 Active 189014924 Problem Claudication I73.9 Active 7395008 6 Problem Non-rheumatic mitral regurgitation I34.0 Active 030495031 Problem Tobacco abuse Z72.0 Active 657037 05 Problem Benign essential hypertension I10 Active 8030396 Problem Hyperlipemia E78.5 Active 1542964 4 Problem Chronic bronchitis J42 Active 6 5552270 Problem Diverticulosis of intestine without bleeding, unspecified intestinal tract location K57.90 Active 25763788 Problem Abdominal bloating R14.0 Active 1 59570469 Problem Chronic pain G89.29 Active 3293891 1 Problem Fatty liver K76.0 Active 14564926 7 Problem CAD (coronary artery disease) I25.10 Active 11693452 Problem COPD (chronic obstructive pulmonary disease) wit h chronic bronchitis J44.9 Active 211047100 ALLERGIES No Information ENCOUNTERS Encounter Location Date Diagnosis [facility] [employer] [address] [id number] [place] [id number] Mar, Peripheral arterial disease I73.9 [facility] [employer] [address] [id number], [place] [address] February, Chronic pain G89.29 ; Hyperlipemia E78.5 and Benign essential hypertension I10 [facility] [id number], [place] [id number] Jan, COPD (chronic obstructive pulmonary dise ase) with chronic bronchitis J44.9 [facility] [employer] [id number], [place] [address] Jan, [facility] [employer] [address] [id number], [place] [address] Jan, Peripheral arterial disease I73.9 ; Carlo gn essential hypertension I10 ; Bilateral carotid artery disease I77.9 ; Claudication of both lower extremities I73.9 ; Mixed hyperlipidemia E78.2 ; Tobacco use Z72.0 and Non- rheumatic mitral regurgitation I34.0 [facility] [address] [id number], [place] [address] Jan, RUQ pain R10.11 ; Gastroesophageal reflu x disease without esophagitis K21.9 and Change in stool R19.5 [facility] [address] [facility] [address] [id number], [place] [id number] Jan, [facility] [employer] [address] [id number], [place] [address] Jan, Neck pain M54.2 ; Benign essential hyper tension I10 ; COPD (chronic obstructive pulmonary disease) with chronic bronchitis J44.9 and Chronic obstructive pulmonary disease, unspecified COPD type J44.9 [facility] [employer] [address] [id number], [place] [id number] Jan, Chronic obstructive pulmonary disease, u nspecified COPD type J44.9 [facility] [employer] [id number], [place] [id number] Dec, [facility] [address] [id number], [place] [address] Dec, [facility] [employer] [address] [id number], [place] [id number] Dec, COPD (chronic obstructive pulmonary dise ase) with chronic bronchitis J44.9 [facility] [address] [facility] [id number] [place] [address] Dec, [facility] [address] [facility] [id number] [place] [address] Dec, [facility] [address] [place] [address] AVE [id number], [place] [address] Nov, [facility] [id number], [place] [id number] Nov, Benign essential hypertension I10 and CO PD (chronic obstructive pulmonary disease) with chronic bronchitis J44.9 [facility] [id number], [place] [address] Nov, Hyperlipemia E78.5 ; Benign essential hy pertension I10 ; COPD (chronic obstructive pulmonary disease) with chronic bronchitis J44.9 ; Encounter for immunization Z23 ; Gastroesophageal reflux disease without esophagitis K21.9 and Chronic pain G89.29 [facility] [employer] [place] [address] AVE [id number], [place] [address] Oct, COPD (chronic obstructive pulmonary dise ase) with chronic bronchitis J44.9 and Chronic obstructive pulmonary disease, unspecified COPD type J44.9 [facility] [id number], [place] [address] Oct, COPD (chronic obstructive pulmonary dise ase) with chronic bronchitis J44.9 and Chronic obstructive pulmonary disease, unspecified COPD type J44.9 [facility] [employer] [id number], [place] [address] Oct, COPD (chronic obstructive pulmonary dise ase) with chronic bronchitis J44.9 and Chronic obstructive pulmonary disease, unspecified COPD type J44.9 [facility] [employer] [id number], [place] [address] Oct, Benign essential hypertension I10 and Ne ck pain M54.2 [facility] [employer] [place] [address] AVE [id number], [place] [id number] Sep, PAD (peripheral artery disease) I73.9 ; Claudication of both lower extremities I73.9 ; Bilateral carotid artery disease I77.9 ; Benign essential hypertension I10 ; Hyperlipemia E78.5 and Dyspnea on exertion R06.09 [facility] [address] [id number], [place] [address] Aug, Benign essential hypertension I10 ; Vannessa roesophageal reflux disease without esophagitis K21.9 and Cervical radiculopathy M54.12 [facility] [address] [id number], [place] [address] Aug, Gastroesophageal reflux disease without esophagitis K21.9 [facility] [address] [id number], [place] [address] Aug, COPD (chronic obstructive pulmonary dise ase) with chronic bronchitis J44.9 [facility] [address] [id number], [place] [address] Jul, [facility] [employer] [id number], [place] [address] Jul, Benign essential hypertension I10 [facility] [address] [id number], [place] [address] Jul, [facility] [employer] [id number], [place] [address] Jul, COPD (chronic obstructive pulmonary dise ase) with chronic bronchitis J44.9 [facility] [address] [id number], [place] [address] Jul, Neck pain M54.2 [facility] [address] [id number], [place] [address] Jun, Claudication of both lower extremities I 73.9 ; PAD (peripheral artery disease) I73.9 ; Bilateral carotid artery disease I77.9 ; CAD (coronary artery disease) I25.10 ; Tobacco abuse Z72.0 ; Benign essential hypertension I10 ; Hyperlipemia E78.5 and Non-rheumatic mitral valve stenosis I34.2 [facility] [employer] [id number], [place] [address] Jun, Chronic obstructive pulmonary disease, u nspecified COPD type J44.9 [facility] [address] [id number] [place] [id number] May, [facility] [address] [id number] [place] [address] May, Chronic obstructive pulmonary disease, u nspecified COPD type J44.[address] [facility] [address] [id number] [place] [address] May, Neck pain M54.2 ; Chronic obstructive pu lmonary disease, unspecified COPD type J44.9 and Cervical radiculopathy M54.[address] [facility] [address] [address] [id number], [place] [address]28678[address] May, [facility] [address] [id number], [place] [address] Apr, [facility] [address] [id number], [place] 605[address]329 Apr, Gastroesophageal reflux disease without esophagitis K21.9 [facility] [address] [id number], [place] [address] Apr, COPD (chronic obstructive pulmonary dise ase) with chronic bronchitis J44.9 [facility] [address] [id number], [place] [id number] Apr, [facility] [address] [id number], [place] [address] Apr, [facility] [address] [id number], [place] [address] Apr, COPD (chronic obstructive pulmonary dise ase) with chronic bronchitis J44.9 ; Benign essential hypertension I10 ; Tobacco abuse counseling Z71.6 and Hyperlipemia E78.[address] [facility] [address] [address] [id number], [place] 08[address] February, COPD (chronic obstructive pulmonary dise ase) with chronic bronchitis J44.[address] [facility] [address] [id number] [place] [address] Jan, [facility] [address] [id number] [place] [address] Jan, COPD (chronic obstructive pulmonary dise ase) with chronic bronchitis J44.[address] [facility] [address] [address] [id number], [place] [address] Oct, COPD (chronic obstructive pulmonary dise ase) with chronic bronchitis J44.[address] [facility] [address] [address] [id number], [place] [address]10096[address] Oct, Winter itch L29.[address] [facility] [address] [address] [id number], [place] [address]89727[address] Oct, COPD (chronic obstructive pulmonary dise ase) with chronic bronchitis J44.9 ; Benign essential hypertension I10 ; Tobacco abuse Z72.0 and Gastroesophageal reflux disease without esophagitis K21.9 [facility] [address] [id number], [place] 595155699 Sep, Benign essential hypertension I10 [facility] [address] [id number], [place] [id number] Aug, [facility] [address] [id number], [place] [id number] Jul, [facility] [address] [id number], [place] [address]78160502 Apr, [facility] [address] [id number], [place] [id number] Apr, Abdominal bloating R14.0 ; Fatty liver K 76.0 ; Diverticulosis of intestine without bleeding, unspecified intestinal tract location K57.90 ; Chronic obstructive pulmonary disease, unspecified COPD type J44.9 and Benign essential hypertension I10 [facility] [address] [id number], [place] 305[address]24 Apr, Mild early onset dysthymic disorder, in partial remission, with melancholic features, 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 [facility] [address] [address] [id number], [place] 935378467 Mar, Abdominal muscle strain, initial encount er S39.011A [facility] [address] [id number], [place] 437876528 Jan, Pancreatitis K85.9 ; Abdominal bloating R14.0 ; Chronic bronchitis J42 and Chronic pain G89.29 [facility] [address] [facility] [address] [id number], [place] [id number] Nov, [facility] [address] [id number], [place] 396307312 Nov, [facility] [id number], [place] 79[address]1976 Nov, Chronic bronchitis J42 ; Tobacco abuse Z 72.0 and Tobacco abuse counseling Z71.6 [facility] [address] [place] [address] AVE [id number], [place] 962497724 Oct, [facility] [id number], [place] 750046379 Oct, Chronic bronchitis J42 ; Tobacco abuse Z 72.0 and Benign essential hypertension I10 [facility] [id number], [place] [id number] Oct, Chronic bronchitis J42 ; Tobacco abuse Z 72.0 ; Tobacco abuse counseling Z71.6 ; Benign essential hypertension I10 and Hyperlipemia E78.5 [facility] [address] [place] [id number] [address] [place] [address] Sep, [facility] [address] [place] [address] AVE [id number], [place] 501910059 Jul, [facility] [address] [id number] [address] [place] [address] Jul, Essential (primary) hyperten aida I10 [facility] [address] [place] [id number] [address] [place] [address] Jul, [facility] [address] [id number], [place] [id number] Jul, [facility] [address] [facility] [address] [id number], [place] 836544088 Jun, Benign essential hypertension 401.1 ; Ge neralized edema 782.3 ; Chronic pain 338.29 and Hyperlipemia 272.4 [facility] [address] [facility] [address] [id number], [place] 989872029 May, Upper respiratory infection 465.9 and Co ugh 786.2 [facility] [address] [place] [address] AVE [id number], [place] [id number] Mar, Upper respiratory infection 465.9 ; 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 and Cough 786.2 [facility] [address] [facility] [address] [id number], [place] [id number] February, [facility] [id number], [place] 116624044 February, Status post bilateral carotid endarterec vito V45.89 ; CAD (coronary artery disease) 414.00 ; Benign essential hypertension 401.1 ; Hyperlipemia 272.4 ; Tobacco abuse 305.1 ; Tobacco abuse counseling V65.42 and Chronic bronchitis 491.9 [facility] [address] [place] [address] Jan, [facility] [address] [place] [address] Jan, [facility] [address] [id number] [address] [place] [address] Dec, [facility] [address] [place] [id number] [address] [place] [address] Dec, [facility] [address] [id number] [address] [place] [address] Nov, [facility] [address] [place] [id number] [address] [place] [address] Nov, [facility] [address] [place] [address] 19 Nov, 2014 [facility] [address] [id number] [address] [place] [address], [place] [address] Nov, 2014 [facility] [address] [id number] [address] [place] [address], [place] [address] Nov, 2014 [facility] [address] [id number] [address] [place] [address], [place] [address] Nov, 2014 [facility] [address] [id number] [address] [place] [address], [place] [address] Nov, 2014 [facility] [address] [id number] [address] [place] [address], [place] [address] Nov, [facility] [address] [id number] [address] [place] [address], [place] [address] Nov, [facility] [address] [id number] [address] [place] [address], [place] [address] Oct, [facility] [address] [id number] [address] [place] [address], [place] [address] Oct, [facility] [address] [id number] [address] [place] [address], [place] [address] Oct, [facility] [address] [id number] [address] [place] [address], [place] [address] Oct, [facility] [address] [id number] [address] [place] [address], [place] [address] Oct, [facility] [address] [id number] [address] [place] [address], [place] [address] Oct, [facility] [place] [facility] [address] [id number] [address] [place] [address], [place] [address] Oct, [facility] [address] [id number] [address] [place] [address], [place] [address] Oct, [facility] [place] [facility] [address] [id number] [address] [place] [address], [place] [address] Oct, [facility] [address] [id number] [address] [place] [address], [place] [address] Oct, [facility] [address] [id number] [place] [id number] Oct, [facility] [address] [id number] [address] [place] [address], [place] [address] Oct, [facility] [place] [facility] [address] [id number] [address] [place] [address], [place] [address] Sep, [facility] [address] [id number] [address] [place] [address], [place] [address] Sep, [facility] [place] [facility] [address] [id number] [address] [place] [address], [place] [address] Aug, [facility] [address] [id number] [address] [place] [address], [place] [address] Aug, [facility] [address] [id number] [address] [place] [address], [place] [address] Aug, [facility] [address] [id number] [address] [place] [address], [place] [address] Aug, [facility] [address] [id number] [address] [place] [address], [place] [address] Jul, [facility] [address] [id number] [address] [place] [address], [place] [address] Jul, [facility] [place] [facility] [address] [id number] [address] [place] [address] Jun, [facility] [place] [facility] [address] [id number] [address] [place] [address], [place] [address] Jun, [facility] [place] [facility] [address] [id number] [address] [place] [address], [place] [address] May, [facility] [place] [facility] [address] [id number] [address] [place] [address] May, [facility] [place] [facility] [address] [id number] [address] [place] [address] May, [facility] [address] [id number] [address] [place] [address], [place] [address] May, [facility] [address] [id number] [address] [place] [address], [place] [address] Jan, [facility] [address] [id number] [address] [place] [address], [place] [address] Jan, [facility] [address] [id number] [address] [place] [address], [place] [address] Nov, [facility] [address] [id number] [address] [place] [address], [place] [address] Nov, [facility] [address] [id number] [address] [place] [address], [place] [address] Nov, [facility] [address] [id number] [address] [place] [address], [place] [address] Nov, [facility] [address] [id number] [address] [place] [address], [place] [address] Nov, [facility] [address] [id number] [address] [place] [address], [place] [address] Nov, [facility] [address] [id number] [address] [place] [address], [place] [address] Nov, [facility] [address] [id number] [address] [place] [address], [place] [address] Nov, [facility] [address] [id number] [address] [place] [address], [place] [address] Nov, [facility] [place] [facility] [address] [id number] [address] [place] [address], [place] [address] Nov, [facility] [address] [id number] [address] [place] [address], [place] [address] Oct, [facility] [address] [id number] [address] [place] [address], [place] [address] Oct, [facility] [address] [id number] [address] [place] [address], [place] [address] Oct, [facility] [address] [id number] [address] [place] [address], [place] [address] Oct, [facility] [address] [id number] [address] [place] [address], [place] [address] Sep, [facility] [address] [id number] [address] [place] [address], [place] [address] Sep, [facility] [address] [id number] [address] [place] [address], [place] [address] Aug, [facility] [address] [id number] [address] [place] [address], [place] [address] Aug, [facility] [address] [id number] [address] [place] [address], [place] [address] Aug, [facility] [address] [id number] [address] [place] [address], [place] [address] Aug, [facility] [address] [id number] [address] [place] [address], [place] [address] Aug, [facility] [address] [id number] [address] [place] [address], [place] [address] Aug, [facility] [address] [id number] [address] [place] [address], [place] [address] Aug, [facility] [address] [id number] [address] [place] [address], [place] [address] Aug, [facility] [address] [id number] [address] [place] [address], [place] [address] Jul, [facility] [address] [id number] [address] [place] [address], [place] [address] Jul, [facility] [address] [id number] [address] [place] [address], [place] [address] Jul, [facility] [address] [id number] [address] [place] [address] Jul, [facility] [address] [id number] [address] [place] [address] Jul, [facility] [address] [id number] [address] [place] [address] Jun, [facility] [address] [id number] [address] [place] [address] May, [facility] [address] [id number] [address] [place] [phone] Apr, [facility] [address] [id number] [address] [place] [phone] February, [facility] [address] [id number] [address] [place] [phone] Jan, [facility] [address] [id number] [address] [place] [phone] Jan, [facility] [address] [id number] [address] [place] [phone] Dec, [facility] [address] [id number] [address] [place] [phone] Dec, [facility] [address] [id number] [address] [place] [phone] Dec, [facility] [address] [id number] [address] [place] [phone] Nov, [facility] [address] [id number] [address] [place] [phone] Nov, [facility] [address] [id number] [address] [place] [phone] Nov, [facility] [address] [id number] [address] [place] [phone] Nov, IMMUNIZATIONS No Known Immunizations SOCIAL HISTORY Never Assessed REASON FOR VISIT [place] DIAL PLAN OF CARE VITAL SIGNS MEDICATIONS Unknown Medications RESULTS No Results PROCEDURES No Known procedures INSTRUCTIONS MEDICATIONS ADMINISTERED No Known Medications MEDICAL (GENERAL) HISTORY Type Description Date Medical History GERD Medical History hypertension Medical History 1999 mild stroke syndrome- C T head 02/2015 showed chronic ischemic changes Medical History chronic neck and back pain Medical History IN x's 2 1996 and 2011 Medical History [...] duodenitis 1996 Surgical History carotid endarterectomy, right- [facility] 01/14 015 Surgical History Heart cath with [facility] 2013 Surgical History Colonoscopy- tubular adenoma , hyperplastic polyp- repeat Colonoscopy 12/2016 Hospitalization History heart attack 1996 Hospitalization History slurred speech, fever, left arm pain Sharifa Shah February 2015 Hospitalization History Pancreatitis 12/2015
--- OUTSIDE RECORDS SUMMARY | 2020-04-06 07:01 | XMS REPORT ---
Author Author Jermaine CAMPOS Organization [facility] Address [address] [place] [address] Care Team Providers Care Traveling Mission[employer] Name Role Phone TIFFANIE CAMPOS Unavailable PROBLEMS Type Condition ICD9-CM Code TTS11-VM Code Onset Dates Condition S tatus SNOMED Code Problem Gastroesophageal reflux disease without esophagitis K21.9 Active 649206915 Problem Bilateral carotid artery disease I77.9 Active 913834891 Problem Claudication of both lower extremities I73.9 Active 630896153 Problem Mixed hyperlipidemia E78.2 Active 609461875 Problem Peripheral arterial disease I73.9 Ac tive 335518192 Problem Chronic obstructive pulmonary disease, unspecified COPD ty pe J44.9 Active 96187267 Problem PAD (peripheral artery disease) I73.9 Active 027997815 Problem Claudication I73.9 Active 7819900 6 Problem Non-rheumatic mitral regurgitation I34.0 Active 533606820 Problem Tobacco abuse Z72.0 Active 443334 05 Problem Benign essential hypertension I10 Active 1604040 Problem Hyperlipemia E78.5 Active 5892586 4 Problem Chronic bronchitis J42 Active 6 0060616 Problem Diverticulosis of intestine without bleeding, unspecified intestinal tract location K57.90 Active 52666402 Problem Abdominal bloating R14.0 Active 1 90883580 Problem Chronic pain G89.29 Active 7919335 1 Problem Fatty liver K76.0 Active 13278400 7 Problem CAD (coronary artery disease) I25.10 Active 98328487 Problem COPD (chronic obstructive pulmonary disease) wit h chronic bronchitis J44.9 Active 326908311 ALLERGIES No Information ENCOUNTERS Encounter Location Date Diagnosis [facility] [address] [id number] [place] [id number] Mar, Peripheral arterial disease I73.[address] [id number], [place] [id number] February, Chronic pain G89.29 ; Hyperlipemia E78.5 and Benign essential hypertension I10 [facility] [address] [id number][place] [id number] Jan, COPD (chronic obstructive pulmonary dise ase) with chronic bronchitis J44.9 [facility] [address] [id number], [place] [id number] Jan, [facility] [address] [id number], [place] [address] Jan, Peripheral arterial disease I73.9 ; Carlo gn essential hypertension I10 ; Bilateral carotid artery disease I77.9 ; Claudication of both lower extremities I73.9 ; Mixed hyperlipidemia E78.2 ; Tobacco use Z72.0 and Non- rheumatic mitral regurgitation I34.0 [facility] [address] [id number], [place] [address] Jan, RUQ pain R10.11 ; Gastroesophageal reflu x disease without esophagitis K21.9 and Change in stool R19.5 [facility] [id number][place] [address] Jan, [facility] [address] [id number][place] [address] Jan, Neck pain M54.2 ; Benign essential hyper tension I10 ; COPD (chronic obstructive pulmonary disease) with chronic bronchitis J44.9 and Chronic obstructive pulmonary disease, unspecified COPD type J44.9 [facility] [address] [id number], [place] [address] Jan, Chronic obstructive pulmonary disease, u nspecified COPD type J44.9 [facility] [address] [id number], [place] [id number] Dec, [facility] [address] [id number], [place] [address] Dec, [facility] [address] [id number], [place] [address] Dec, COPD (chronic obstructive pulmonary dise ase) with chronic bronchitis J44.9 [facility] [address] [facility] [id number] [place] [address] Dec, [facility] [address] [facility] [id number] [address] [place] [address] Dec, [facility] [address] [id number], [place] [id number] Nov, [facility] [address] [id number], [place] [id number] Nov, Benign essential hypertension I10 and CO PD (chronic obstructive pulmonary disease) with chronic bronchitis J44.[address] [facility] [address] [id number], [place] [id number] Nov, Hyperlipemia E78.5 ; Benign essential hy pertension I10 ; COPD (chronic obstructive pulmonary disease) with chronic bronchitis J44.9 ; Encounter for immunization Z23 ; Gastroesophageal reflux disease without esophagitis K21.9 and Chronic pain G89.[address] [facility] [place] [address] AVE [id number], [place] [id number] Oct, COPD (chronic obstructive pulmonary dise ase) with chronic bronchitis J44.9 and Chronic obstructive pulmonary disease, unspecified COPD type J44.[address] [facility] [address] [id number], [place] [id number] Oct, COPD (chronic obstructive pulmonary dise ase) with chronic bronchitis J44.9 and Chronic obstructive pulmonary disease, unspecified COPD type J44.[address] [facility] [place] [address] AVE [id number], [place] [id number] Oct, COPD (chronic obstructive pulmonary dise ase) with chronic bronchitis J44.9 and Chronic obstructive pulmonary disease, unspecified COPD type J44.[address] [facility] [address] [id number], [place] [id number] Oct, Benign essential hypertension I10 and Ne ck pain M54.2 [facility] [address] [id number], [place] [id number] Sep, PAD (peripheral artery disease) I73.9 ; Claudication of both lower extremities I73.9 ; Bilateral carotid artery disease I77.9 ; Benign essential hypertension I10 ; Hyperlipemia E78.5 and Dyspnea on exertion R06.09 [facility] [address] [id number], [place] [address] Aug, Benign essential hypertension I10 ; Vannessa roesophageal reflux disease without esophagitis K21.9 and Cervical radiculopathy M54.12 [facility] [address] [id number], [place] [address] Aug, Gastroesophageal reflux disease without esophagitis K21.9 [facility] [address] [id number], [place] [address] Aug, COPD (chronic obstructive pulmonary dise ase) with chronic bronchitis J44.9 [facility] [address] [id number], [place] [id number] Jul, [facility] [address] [id number], [place] [id number] Jul, Benign essential hypertension I10 [facility] [address] [id number], [place] [address] Jul, [facility] [address] [id number], [place] [address] Jul, COPD (chronic obstructive pulmonary dise ase) with chronic bronchitis J44.9 [facility] [address] [id number], [place] [id number] Jul, Neck pain M54.2 [facility] [address] [id number], [place] [address] Jun, Claudication of both lower extremities I 73.9 ; PAD (peripheral artery disease) I73.9 ; Bilateral carotid artery disease I77.9 ; CAD (coronary artery disease) I25.10 ; Tobacco abuse Z72.0 ; Benign essential hypertension I10 ; Hyperlipemia E78.5 and Non-rheumatic mitral valve stenosis I34.2 [facility] [address] [id number], [place] [id number] Jun, Chronic obstructive pulmonary disease, u nspecified COPD type J44.[address] [facility] [address] [id number] [place] [address] May, [facility] [address] [id number] [place] [address] May, Chronic obstructive pulmonary disease, u nspecified COPD type J44.[address] [facility] [address] [id number] [place] [address] May, Neck pain M54.2 ; Chronic obstructive pu lmonary disease, unspecified COPD type J44.9 and Cervical radiculopathy M54.[address] [facility] [address] [id number] [place] [address] May, [facility] [address] [id number], [place] [id number] Apr, [facility] [address] [id number], [place] [address] Apr, Gastroesophageal reflux disease without esophagitis K21.9 [facility] [address] [id number], [place] [address] Apr, COPD (chronic obstructive pulmonary dise ase) with chronic bronchitis J44.9 [facility] [address] [id number], [place] [address] Apr, [facility] [address] [id number], [place] [id number] Apr, [facility] [address] [id number], [place] [address] Apr, COPD (chronic obstructive pulmonary dise ase) with chronic bronchitis J44.9 ; Benign essential hypertension I10 ; Tobacco abuse counseling Z71.6 and Hyperlipemia E78.[address] [facility] [address] [id number] [place] [address] February, COPD (chronic obstructive pulmonary dise ase) with chronic bronchitis J44.[address] [facility] [address] [id number] [place] [address] Jan, [facility] [address] [id number] [place] [address] Jan, COPD (chronic obstructive pulmonary dise ase) with chronic bronchitis J44.[address] [facility] [address] [id number] [place] [address] Oct, COPD (chronic obstructive pulmonary dise ase) with chronic bronchitis J44.[address] [facility] [address] [id number] [place] [address] Oct, Winter itch L29.[address] [facility] [address] [id number], [place] [address] Oct, COPD (chronic obstructive pulmonary dise ase) with chronic bronchitis J44.9 ; Benign essential hypertension I10 ; Tobacco abuse Z72.0 and Gastroesophageal reflux disease without esophagitis K21.9 [facility] [address] [id number], [place] [address]13[address] Sep, Benign essential hypertension I10 [facility] [address] [id number], [place] [id number] Aug, [facility] [address] [id number], [place] [address] Jul, [facility] [address] [id number], [place] [address] Apr, [facility] [address] [id number], [place] [address] Apr, Abdominal bloating R14.0 ; Fatty liver K 76.0 ; Diverticulosis of intestine without bleeding, unspecified intestinal tract location K57.90 ; Chronic obstructive pulmonary disease, unspecified COPD type J44.9 and Benign essential hypertension I10 [facility] [address] [id number], [place] [address] Apr, Mild early onset dysthymic disorder, in partial remission, with melancholic features, 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 [facility] [address] [id number], [place] [address] Mar, Abdominal muscle strain, initial encount er S39.011A [facility] [address] [id number], [place] [address]53[address] Jan, Pancreatitis K85.9 ; Abdominal bloating R14.0 ; Chronic bronchitis J42 and Chronic pain G89.29 [facility] [address] [id number], [place] 30637[address]72 Nov, [facility] [address] [id number], [place] [id number] Nov, [facility] [address] [id number], [place] [address] Nov, Chronic bronchitis J42 ; Tobacco abuse Z 72.0 and Tobacco abuse counseling Z71.6 [facility] [address] [id number], [place] 532291373 Oct, [facility] [address] [id number], [place] 616606910 Oct, Chronic bronchitis J42 ; Tobacco abuse Z 72.0 and Benign essential hypertension I10 [facility] [address] [place] [address] AVE [id number], [place] 336[address] Oct, Chronic bronchitis J42 ; Tobacco abuse Z 72.0 ; Tobacco abuse counseling Z71.6 ; Benign essential hypertension I10 [address] E78.5 [facility] [address] [place] [id number] [address] [place] [address] Sep, [facility] [address] [id number], [place] [id number] Jul, [facility] [address] [place] [id number] [address] [place] [address] Jul, Essential (primary) hyperten aida I10 [facility] [address] [facility] [id number] [address] [place] [address] Jul, [facility] [address] [id number], [place] [id number] Jul, 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 [id number], [place] [id number] February, [facility] [id number] [facility] [id number], [place] [address] February, Status post bilateral carotid endarterec vito V45.89 ; CAD (coronary artery disease) 414.00 ; Benign essential hypertension 401.1 ; Hyperlipemia 272.4 ; Tobacco abuse 305.1 ; Tobacco abuse counseling V65.[address]itis [address] [facility] [address] [place] [id number] [address] [place] [address] Jan, [facility] [address] [place] [id number] [address] [place] [address] Jan, [facility] [address] [place] [id number] [address] [place] [address] Dec, [facility] [address] [place] [id number] [address] [place] [address] Dec, [facility] [address] [place] [id number] [address] [place] [address] Nov, [facility] [address] [place] [id number] [address] [place] [address] Nov, [facility] [address] [id number] [address] [place] [address], [place] [address] 19 Nov, 2014 [facility] [address] [id number] [address] [place] [address], [place] [address] Nov, 2014 [facility] [address] [id number] [address] [place] [address], [place] [address] Nov, 2014 [facility] [address] [id number] [address] [place] [address], [place] [address] Nov, 2014 [facility] [address] [id number] [address] [place] [address], [place] [address] Nov, 2014 [facility] [address] [id number] [address] [place] [address], [place] [address] Nov, [facility] [address] [id number] [address] [place] [address], [place] [address] Nov, [facility] [address] [id number] [address] [place] [address], [place] [address] Oct, [facility] [address] [id number] [address] [place] [address], [place] [address] Oct, [facility] [address] [id number] [address] [place] [address], [place] [address] Oct, [facility] [address] [id number] [address] [place] [address], [place] [address] Oct, [facility] [address] [id number] [address] [place] [address], [place] [address] Oct, [facility] [address] [id number] [address] [place] [address], [place] [address] Oct, [facility] [address] [id number] [address] [place] [address], [place] [address] Oct, [facility] [address] [id number] [address] [place] [address], [place] [address] Oct, [facility] [address] [id number] [address] [place] [address], [place] [address] Oct, [facility] [address] [id number] [address] [place] [address], [place] [address] Oct, [facility] [address] [id number] [place] [id number] Oct, [facility] [address] [id number] [address] [place] [address], [place] [address] Oct, [facility] [address] [id number] [address] [place] [address], [place] [address] Sep, [facility] [address] [id number] [address] [place] [address], [place] [address] Sep, [facility] [address] [id number] [address] [place] [address], [place] [address] Aug, [facility] [address] [id number] [address] [place] [address], [place] [address] Aug, [facility] [address] [id number] [address] [place] [address], [place] [address] Aug, [facility] [address] [id number] [address] [place] [address], [place] [address] Aug, [facility] [address] [id number] [address] [place] [address], [place] [address] Jul, [facility] [address] [id number] [address] [place] [address], [place] [address] Jul, [facility] [address] [id number] [address] [place] [address] Jun, [facility] [address] [id number] [address] [place] [address], [place] [address] Jun, [facility] [address] [id number] [address] [place] [address], [place] [address] May, [facility] [address] [id number] [address] [place] [address], [place] [address] May, [facility] [address] [id number] [address] [place] [address], [place] [address] May, [facility] [address] [id number] [address] [place] [address], [place] [address] May, [facility] [address] [id number] [address] [place] [address], [place] [address] Jan, [facility] [address] [id number] [address] [place] [address], [place] [address] Jan, [facility] [address] [id number] [address] [place] [address], [place] [address] Nov, [facility] [address] [id number] [address] [place] [address], [place] [address] Nov, [facility] [address] [id number] [address] [place] [address], [place] [address] Nov, [facility] [address] [id number] [address] [place] [address], [place] [address] Nov, [facility] [address] [id number] [address] [place] [address], [place] [address] Nov, [facility] [address] [id number] [address] [place] [address], [place] [address] Nov, [facility] [address] [id number] [address] [place] [address], [place] [address] Nov, [facility] [address] [id number] [address] [place] [address], [place] [address] Nov, [facility] [address] [id number] [address] [place] [address], [place] [address] Nov, [facility] [address] [id number] [address] [place] [address], [place] [address] Nov, [facility] [address] [id number] [address] [place] [address], [place] [address] Oct, [facility] [address] [id number] [address] [place] [address], [place] [address] Oct, [facility] [address] [id number] [address] [place] [address], [place] [address] Oct, [facility] [address] [id number] [address] [place] [address], [place] [address] Oct, [facility] [address] [id number] [address] [place] [address], [place] [address] Sep, [facility] [address] [id number] [address] [place] [address] Sep, [facility] [address] [id number] [address] [place] [address], [place] [address] Aug, [facility] [address] [id number] [address] [place] [address] Aug, [facility] [address] [id number] [address] [place] [address], [place] [address] Aug, [facility] [address] [id number] [address] [place] [address] Aug, [facility] [address] [id number] [address] [place] [address], [place] [address] Aug, [facility] [address] [id number] [address] [place] [address] Aug, [facility] [address] [id number] [address] [place] [address] Aug, [facility] [address] [id number] [address] [place] [address] Aug, [facility] [address] [id number] [address] [place] [address], [place] [address] Jul, [facility] [address] [id number] [address] [place] [address] Jul, [facility] [address] [id number] [address] [place] [address] Jul, [facility] [address] [id number] [address] [place] [address] Jul, [facility] [address] [id number] [address] [place] [address] Jul, [facility] [address] [id number] [address] [place] [id number] Jun, [facility] [address] [id number] [address] [place] [phone] May, [facility] [address] [id number] [address] [place] [phone] Apr, [facility] [address] [id number] [address] [place] [id number] February, [facility] [address] [id number] [address] [place] [phone] Jan, [facility] [address] [id number] [address] [place] [phone] Jan, [facility] [address] [id number] [address] [place] [phone] Dec, [facility] [address] [id number] [address] [place] [phone] Dec, [facility] [address] [id number] [address] [place] [id number] Dec, [facility] [address] [id number] [address] [place] [phone] Nov, [facility] [address] [id number] [address] [place] [id number] Nov, [facility] [address] [id number] [address] [place] [phone] Nov, [facility] [address] [id number] [address] [place] [phone] Nov, IMMUNIZATIONS No Known Immunizations SOCIAL HISTORY Never Assessed REASON FOR VISIT Repository med refill PLAN OF CARE VITAL SIGNS MEDICATIONS Medication Instructions Dosage Frequency Start Date End Date Duration S samreen Lisinopril 40 mg Orally Once a day 1 tablet Once a day Orally 24h Active Bevespi Aerosphere 9-4.8 MCG/ACT Inhalation [...] Surgical History coronary angiography Dr Mane thakur [facility]- normal EF, LV function,-minimal RCA blockage <20% 1996 [facility], mild nonspecific bulbar duodenitis 1996 Surgical History carotid endarterectomy, right- [facility] 01/14 015 Surgical History Heart cath with [facility] 2013 Surgical History Colonoscopy- tubular adenoma , hyperplastic polyp- repeat Colonoscopy 12/2016 Hospitalization History heart attack 1996 Hospitalization History slurred speech, fever, left arm pain Sharifa Shah February 2015 Hospitalization History Pancreatitis 12/2015
--- OUTSIDE RECORDS SUMMARY | 2020-04-06 07:02 | XMS REPORT ---
Author Author Jermaine CAMPOS Organization [facility] Address [address] [place] [address] Care Team Providers Care Heel Seat Filler Name Role Phone TIFFANIE CAMPOS Unavailable PROBLEMS Type Condition ICD9-CM Code AJN15-EG Code Onset Dates Condition S tatus SNOMED Code Problem Gastroesophageal reflux disease without esophagitis K21.9 Active 769225612 Problem Bilateral carotid artery disease I77.9 Active 064766528 Problem Claudication of both lower extremities I73.9 Active 123180948 Problem Mixed hyperlipidemia E78.2 Active 340903510 Problem Peripheral arterial disease I73.9 Ac tive 913001831 Problem Chronic obstructive pulmonary disease, unspecified COPD ty pe J44.9 Active 25598380 Problem PAD (peripheral artery disease) I73.9 Active 097349555 Problem Claudication I73.9 Active 3221965 6 Problem Non-rheumatic mitral regurgitation I34.0 Active 299561235 Problem Tobacco abuse Z72.0 Active 596810 05 Problem Benign essential hypertension I10 Active 3796540 Problem Hyperlipemia E78.5 Active 1790492 4 Problem Chronic bronchitis J42 Active 6 5947664 Problem Diverticulosis of intestine without bleeding, unspecified intestinal tract location K57.90 Active 41152751 Problem Abdominal bloating R14.0 Active 1 63063526 Problem Chronic pain G89.29 Active 4696017 1 Problem Fatty liver K76.0 Active 30382769 7 Problem CAD (coronary artery disease) I25.10 Active 02034747 Problem COPD (chronic obstructive pulmonary disease) wit h chronic bronchitis J44.9 Active 231731760 ALLERGIES No Information ENCOUNTERS Encounter Location Date Diagnosis [facility] [address] [id number] [place] [id number] Mar, Peripheral arterial disease I73.[address] [id number][place] [address] February, Chronic pain G89.29 ; Hyperlipemia E78.5 and Benign essential hypertension I10 [facility] [address] [id number][place] [address] Jan, COPD (chronic obstructive pulmonary dise ase) with chronic bronchitis J44.9 [facility] [address] [id number], [place] [address] Jan, [facility] [address] [id number], [place] [address] Jan, Peripheral arterial disease I73.9 ; Carlo gn essential hypertension I10 ; Bilateral carotid artery disease I77.9 ; Claudication of both lower extremities I73.9 ; Mixed hyperlipidemia E78.2 ; Tobacco use Z72.0 and Non- rheumatic mitral regurgitation I34.0 [facility] [address] [id number], [place] [address] Jan, RUQ pain R10.11 ; Gastroesophageal reflu x disease without esophagitis K21.9 and Change in stool R19.5 [address] [facility] [address] [id number], [place] [address] Jan, [facility] [address] [id number], [place] [address] Jan, Neck pain M54.2 ; Benign essential hyper tension I10 ; COPD (chronic obstructive pulmonary disease) with chronic bronchitis J44.9 and Chronic obstructive pulmonary disease, unspecified COPD type J44.[address] [address] [id number], [place] [address] Jan, Chronic obstructive pulmonary disease, u nspecified COPD type J44.[address] [address] [id number], [place] [id number] Dec, [facility] [address] [id number], [place] [id number] Dec, [facility] [address] [id number], [place] [address] Dec, COPD (chronic obstructive pulmonary dise ase) with chronic bronchitis J44.9 [facility] [address] [facility] [id number] [place] [address] Dec, [facility] [address] [facility] [id number] [address] [place] [address] Dec, [facility] [address] [id number], [place] [id number] Nov, [facility] [address] [id number], [place] [address] Nov, Benign essential hypertension I10 and CO PD (chronic obstructive pulmonary disease) with chronic bronchitis J44.9 [facility] [address] [id number], [place] [address] Nov, Hyperlipemia E78.5 ; Benign essential hy pertension I10 ; COPD (chronic obstructive pulmonary disease) with chronic bronchitis J44.9 ; Encounter for immunization Z23 ; Gastroesophageal reflux disease without esophagitis K21.9 [address] Chronic pain G89.29 [facility] [address] [place] [address] AVE [id number], [place] [address] Oct, COPD (chronic obstructive pulmonary dise ase) with chronic bronchitis J44.9 and Chronic obstructive pulmonary disease, unspecified COPD type J44.9 [facility] [address] [id number], [place] [address] Oct, COPD (chronic obstructive pulmonary dise ase) with chronic bronchitis J44.9 and Chronic obstructive pulmonary disease, unspecified COPD type J44.9 [facility] [place] [address] AVE [id number], [place] [address] Oct, COPD (chronic obstructive pulmonary dise ase) with chronic bronchitis J44.9 and Chronic obstructive pulmonary disease, unspecified COPD type J44.9 [facility] [address] [id number], [place] [address] Oct, Benign essential hypertension I10 and Ne ck pain M54.[address] [address] [id number], [place] [address] Sep, PAD (peripheral artery disease) I73.9 ; Claudication of both lower extremities I73.9 ; Bilateral carotid artery disease I77.9 ; Benign essential hypertension I10 ; Hyperlipemia E78.5 and Dyspnea on exertion R06.09 [facility] [address] [id number], [place] [address] Aug, Benign essential hypertension I10 ; Vannessa roesophageal reflux disease without esophagitis K21.9 and Cervical radiculopathy M54.12 [facility] [address] [id number], [place] [address] Aug, Gastroesophageal reflux disease without esophagitis K21.9 [facility] [address] [id number], [place] [address] Aug, COPD (chronic obstructive pulmonary dise ase) with chronic bronchitis J44.9 [facility] [address] [id number], [place] [address] Jul, [facility] [address] [id number], [place] [address] Jul, Benign essential hypertension I10 [facility] [address] [id number], [place] [address] Jul, [facility] [address] [id number], [place] [address] Jul, COPD (chronic obstructive pulmonary dise ase) with chronic bronchitis J44.9 [facility] [address] [id number], [place] [address] Jul, Neck pain M54.2 [facility] [address] [id number], [place] [address] Jun, Claudication of both lower extremities I 73.9 ; PAD (peripheral artery disease) I73.9 ; Bilateral carotid artery disease I77.9 ; CAD (coronary artery disease) I25.10 ; Tobacco abuse Z72.0 ; Benign essential hypertension I10 ; Hyperlipemia E78.5 and Non-rheumatic mitral valve stenosis I34.2 [facility] [address] [id number], [place] [address] Jun, Chronic obstructive pulmonary disease, u nspecified COPD type J44.[address] [facility] [address] [id number] [place] [address] May, [facility] [address] [id number] [place] [address] May, Chronic obstructive pulmonary disease, u nspecified COPD type J44.[address] [facility] [address] [id number] [place] [address] May, Neck pain M54.2 ; Chronic obstructive pu lmonary disease, unspecified COPD type J44.9 and Cervical radiculopathy M54.[address] [facility] [address] [id number] [place] [address] May, [facility] [address] [id number], [place] [address] Apr, [facility] [address] [id number], [place] [address] Apr, Gastroesophageal reflux disease without esophagitis K21.9 [facility] [address] [id number], [place] [address] Apr, COPD (chronic obstructive pulmonary dise ase) with chronic bronchitis J44.9 [facility] [address] [id number], [place] [address] Apr, [facility] [address] [id number], [place] [address] Apr, [facility] [address] [id number], [place] [address] Apr, COPD (chronic obstructive pulmonary dise ase) with chronic bronchitis J44.9 ; Benign essential hypertension I10 ; Tobacco abuse counseling Z71.6 and Hyperlipemia E78.[address] [facility] [address] [id number] [place] [address] February, COPD (chronic obstructive pulmonary dise ase) with chronic bronchitis J44.[address] [facility] [address] [id number] [place] [id number] Jan, [facility] [address] [id number] [place] [address] Jan, COPD (chronic obstructive pulmonary dise ase) with chronic bronchitis J44.[address] [facility] [address] [id number] [place] [address] Oct, COPD (chronic obstructive pulmonary dise ase) with chronic bronchitis J44.[address] [facility] [address] [id number] [place] [address] Oct, Winter itch L29.8 [facility] [address] [id number], [place] [address] Oct, COPD (chronic obstructive pulmonary dise ase) with chronic bronchitis J44.9 ; Benign essential hypertension I10 ; Tobacco abuse Z72.0 and Gastroesophageal reflux disease without esophagitis K21.9 [facility] [address] [id number], [place] [address] Sep, Benign essential hypertension I10 [facility] [address] [id number], [place] [address] Aug, [facility] [address] [id number], [place] 6200[address] Jul, [facility] [address] [id number], [place] 114[address] Apr, [facility] [address] [id number], [place] [address] Apr, Abdominal bloating R14.0 ; Fatty liver K 76.0 ; Diverticulosis of intestine without bleeding, unspecified intestinal tract location K57.90 ; Chronic obstructive pulmonary disease, unspecified COPD type J44.9 and Benign essential hypertension I10 [facility] [address] [id number], [place] [address] Apr, Mild early onset dysthymic disorder, in partial remission, with melancholic features, 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 [facility] [address] [id number], [place] [address]74 Mar, Abdominal muscle strain, initial encount er S39.011A [facility] [address] [id number], [place] [address]687[address]38 Jan, Pancreatitis K85.9 ; Abdominal bloating R14.0 ; Chronic bronchitis J42 and Chronic pain G89.29 [facility] [address] [id number], [place] 653976396 Nov, [facility] [address] [id number], [place] [address]97 Nov, [facility] [address] [facility] [address] [id number], [place] 716835976 Nov, Chronic bronchitis J42 ; Tobacco abuse Z 72.0 and Tobacco abuse counseling Z71.6 [facility] [address] [id number], [place] 849957447 Oct, [facility] [address] [id number], [place] [address] Oct, Chronic bronchitis J42 ; Tobacco abuse Z 72.0 and Benign essential hypertension I10 [facility] [address] [place] [address] AVE [id number], [place] [address]33184856 Oct, Chronic bronchitis J42 ; Tobacco abuse Z 72.0 ; Tobacco abuse counseling Z71.6 ; Benign essential hypertension I10 and Hyperlipemia E78.5 [facility] [address] [place] [id number] [address] [place] [address] Sep, [facility] [address] [id number], [place] [id number] Jul, [facility] [address] [place] [id number] [address] [place] [address] Jul, Essential (primary) hyperten aida I10 [facility] [address] [facility] [id number] [address] [place] [address] Jul, [facility] [address] [id number], [place] [address] Jul, 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 [address] [id number], [place] 101[address] February, [facility] [place] [id number], [place] [address]39[address] February, Status post bilateral carotid endarterec vito V45.89 ; CAD (coronary artery disease) 414.00 ; Benign essential hypertension 401.1 ; Hyperlipemia 272.4 ; Tobacco abuse 305.1 ; Tobacco abuse counseling V65.42 and Chronic bronchitis 491.9 [facility] [address] [place] [id number] [address] [place] [address] Jan, [facility] [address] [place] [id number] [address] [place] [address] Jan, [facility] [address] [place] [id number] [address] [place] [address] Dec, [facility] [address] [place] [id number] [address] [place] [address] Dec, [facility] [address] [id number] [address] [place] [address] Nov, [facility] [address] [place] [id number] [address] [place] [address] Nov, [facility] [address] [id number] [address] [place] [address], [place] [address] 19 Nov, 2014 [facility] [address] [id number] [address] [place] [address], [place] [address] Nov, 2014 [facility] [address] [id number] [address] [place] [address], [place] [address] Nov, 2014 [facility] [address] [id number] [address] [place] [address], [place] [address] Nov, 2014 [facility] [address] [id number] [address] [place] [address], [place] [address] Nov, 2014 [facility] [address] [id number] [address] [place] [address], [place] [address] Nov, [facility] [address] [id number] [address] [place] [address], [place] [address] Nov, [facility] [address] [id number] [address] [place] [address], [place] [address] Oct, [facility] [address] [id number] [address] [place] [address], [place] [address] Oct, [facility] [address] [id number] [address] [place] [address], [place] [address] Oct, [facility] [address] [id number] [address] [place] [address], [place] [address] Oct, [facility] [address] [id number] [address] [place] [address], [place] [address] Oct, [facility] [address] [id number] [address] [place] [address], [place] [address] Oct, [facility] [address] [id number] [address] [place] [address], [place] [address] Oct, [facility] [address] [id number] [address] [place] [address], [place] [address] Oct, [facility] [address] [id number] [address] [place] [address], [place] [address] Oct, [facility] [address] [id number] [address] [place] [address], [place] [address] Oct, [facility] [address] [id number] [place] [id number] Oct, [facility] [address] [id number] [address] [place] [address], [place] [address] Oct, [facility] [address] [id number] [address] [place] [address], [place] [address] Sep, [facility] [address] [id number] [address] [place] [address], [place] [address] Sep, [facility] [address] [id number] [address] [place] [address], [place] [address] Aug, [facility] [address] [id number] [address] [place] [address], [place] [address] Aug, [facility] [address] [id number] [address] [place] [address], [place] [address] Aug, [facility] [address] [id number] [address] [place] [address], [place] [address] Aug, [facility] [address] [id number] [address] [place] [address], [place] [address] Jul, [facility] [address] [id number] [address] [place] [address], [place] [address] Jul, [facility] [address] [id number] [address] [place] [address] Jun, [facility] [address] [id number] [address] [place] [address], [place] [address] Jun, [facility] [address] [id number] [address] [place] [address], [place] [address] May, [facility] [address] [id number] [address] [place] [address], [place] [address] May, [facility] [address] [id number] [address] [place] [address], [place] [address] May, [facility] [address] [id number] [address] [place] [address], [place] [address] May, [facility] [address] [id number] [address] [place] [address], [place] [address] Jan, [facility] [address] [id number] [address] [place] [address], [place] [address] Jan, [facility] [address] [id number] [address] [place] [address], [place] [address] Nov, [facility] [address] [id number] [address] [place] [address], [place] [address] Nov, [facility] [address] [id number] [address] [place] [address], [place] [address] Nov, [facility] [address] [id number] [address] [place] [address], [place] [address] Nov, [facility] [address] [id number] [address] [place] [address], [place] [address] Nov, [facility] [address] [id number] [address] [place] [address], [place] [address] Nov, [facility] [address] [id number] [address] [place] [address], [place] [address] Nov, [facility] [address] [id number] [address] [place] [address], [place] [address] Nov, [facility] [address] [id number] [address] [place] [address], [place] [address] Nov, [facility] [address] [id number] [address] [place] [address], [place] [address] Nov, [facility] [address] [id number] [address] [place] [address], [place] [address] Oct, [facility] [address] [id number] [address] [place] [address], [place] [address] Oct, [facility] [address] [id number] [address] [place] [address], [place] [address] Oct, [facility] [address] [id number] [address] [place] [address], [place] [address] Oct, [facility] [address] [id number] [address] [place] [address], [place] [address] Sep, [facility] [address] [id number] [address] [place] [address] Sep, [facility] [address] [id number] [address] [place] [address], [place] [address] Aug, [facility] [address] [id number] [address] [place] [address] Aug, [facility] [address] [id number] [address] [place] [address], [place] [address] Aug, [facility] [address] [id number] [address] [place] [address] Aug, [facility] [address] [id number] [address] [place] [address], [place] [address] Aug, [facility] [address] [id number] [address] [place] [address] Aug, [facility] [address] [id number] [address] [place] [address] Aug, [facility] [address] [id number] [address] [place] [address] Aug, [facility] [address] [id number] [address] [place] [address], [place] [address] Jul, [facility] [address] [id number] [address] [place] [address] Jul, [facility] [address] [id number] [address] [place] [address] Jul, [facility] [address] [id number] [address] [place] [address] Jul, [facility] [address] [id number] [address] [place] [address] Jul, [facility] [address] [id number] [address] [place] [address] Jun, [facility] [address] [id number] [address] [place] [address] May, [facility] [address] [id number] [address] [place] [address] Apr, [facility] [address] [id number] [address] [place] [address] February, [facility] [address] [id number] [address] [place] [address] Jan, [facility] [address] [id number] [address] [place] [address] Jan, [facility] [address] [id number] [address] [place] [address] Dec, [facility] [address] [id number] [address] [place] [address] Dec, [facility] [address] [id number] [address] [place] [address] Dec, [facility] [address] [id number] [address] [place] [address] Nov, [facility] [address] [id number] [address] [place] [address] Nov, [facility] [address] [id number] [address] [place] [phone] Nov, [facility] [address] [id number] [address] [place] [phone] Nov, IMMUNIZATIONS No Known Immunizations SOCIAL HISTORY Never Assessed REASON FOR VISIT Repository Medication PLAN OF CARE VITAL SIGNS MEDICATIONS Medication Instructions Dosage Frequency Start Date End Date Jules S samreen Crestor 20 mg Orally Once a day 1 tablet 24h Apr, 90 days Active Metoprolol Tartrate 50 mg Orally Twice a day 1 tablet 12h Active Gabapentin 600 MG Orally 3 times [...] Surgical History coronary angiography Dr Mane thakur [facility]- normal EF, LV function,-minimal RCA blockage <20% 1996 [facility], mild nonspecific bulbar duodenitis 1996 Surgical History carotid endarterectomy, right- [facility] 01/14 015 Surgical History Heart cath with [facility] 2013 Surgical History Colonoscopy- tubular adenoma , hyperplastic polyp- repeat Colonoscopy 12/2016 Hospitalization History heart attack 1996 Hospitalization History slurred speech, fever, left arm pain Sharifa Shah February 2015 Hospitalization History Pancreatitis 12/2015
--- OUTSIDE RECORDS SUMMARY | 2020-04-06 07:02 | XMS REPORT ---
Author Author Jermaine MEZA Organization [facility] Address [address] [place] [address] Care Team Providers Care Import Dispatcher Name Role Phone KIEL MEZA Unavailable PROBLEMS Type Condition ICD9-CM Code NVC77-BA Code Onset Dates Condition S tatus SNOMED Code Problem Gastroesophageal reflux disease without esophagitis K21.9 Active 551629331 Problem Bilateral carotid artery disease I77.9 Active 869046505 Problem Claudication of both lower extremities I73.9 Active 575355303 Problem Mixed hyperlipidemia E78.2 Active 001201720 Problem Peripheral arterial disease I73.9 Ac tive 175765971 Problem Chronic obstructive pulmonary disease, unspecified COPD ty pe J44.9 Active 52346877 Problem PAD (peripheral artery disease) I73.9 Active 021830531 Problem Claudication I73.9 Active 5852386 6 Problem Non-rheumatic mitral regurgitation I34.0 Active 323001170 Problem Tobacco abuse Z72.0 Active 911737 05 Problem Benign essential hypertension I10 Active 5135976 Problem Hyperlipemia E78.5 Active 9734914 4 Problem Chronic bronchitis J42 Active 6 9955974 Problem Diverticulosis of intestine without bleeding, unspecified intestinal tract location K57.90 Active 49965790 Problem Abdominal bloating R14.0 Active 1 29069406 Problem Chronic pain G89.29 Active 3608320 1 Problem Fatty liver K76.0 Active 18692341 7 Problem CAD (coronary artery disease) I25.10 Active 14594789 Problem COPD (chronic obstructive pulmonary disease) wit h chronic bronchitis J44.9 Active 776004480 ALLERGIES No Known Allergies ENCOUNTERS Encounter Location Date Diagnosis [facility] [address] [id number] [place] [id number] February, Chronic pain G89.29 ; Hyperlipemia E78.5 and Benign essential hypertension I10 [facility] [address] [id number] [place] [id number] Jan, COPD (chronic obstructive pulmonary dise ase) with chronic bronchitis J44.9 [facility] [address] [id number] [place] [id number] Jan, [facility] [address] [address] [id number] [place] [id number] Jan, Peripheral arterial disease I73.9 ; Carlo gn essential hypertension I10 ; Bilateral carotid artery disease I77.9 ; Claudication of both lower extremities I73.9 ; Mixed hyperlipidemia E78.2 ; Tobacco use Z72.0 and Non- rheumatic mitral regurgitation I34.0 [facility] [address] [id number] [place] [id number] Jan, RUQ pain R10.11 ; Gastroesophageal reflu x disease without esophagitis K21.9 and Change in stool R19.5 [facility] [address] [id number] [place] [id number] Jan, [facility] [address] [id number] [place] [address] Jan, Neck pain M54.2 ; Benign essential hyper tension I10 ; COPD (chronic obstructive pulmonary disease) with chronic bronchitis J44.9 and Chronic obstructive pulmonary disease, unspecified COPD type J44.9 [facility] [address] [id number] [place] [id number] Jan, Chronic obstructive pulmonary disease, u nspecified COPD type J44.9 [facility] [address] [address] [id number] [place] [id number] Dec, [facility] [address] [id number] [place] [id number] Dec, [facility] [address] [address] [id number] [place] [address] Dec, COPD (chronic obstructive pulmonary dise ase) with chronic bronchitis J44.9 [facility] [address] [id number] [place] [address] Dec, [facility] [address] [id number] 100[place] [address] Dec, [address] [id number] [place] [id number] Nov, [address] [id number] [place] [id number] Nov, Benign essential hypertension I10 and CO PD (chronic obstructive pulmonary disease) with chronic bronchitis J44.[address] [id number] [place] [id number] Nov, Hyperlipemia E78.5 ; Benign essential hy pertension I10 ; COPD (chronic obstructive pulmonary disease) with chronic bronchitis J44.9 ; Encounter for immunization Z23 ; Gastroesophageal reflux disease without esophagitis K21.9 and Chronic pain G89.[address] [id number] [place] [id number] Oct, COPD (chronic obstructive pulmonary dise ase) with chronic bronchitis J44.9 and Chronic obstructive pulmonary disease, unspecified COPD type J44.[address] [id number] [place] [id number] Oct, COPD (chronic obstructive pulmonary dise ase) with chronic bronchitis J44.9 and Chronic obstructive pulmonary disease, unspecified COPD type J44.[address] [id number] [place] [id number] Oct, COPD (chronic obstructive pulmonary dise ase) with chronic bronchitis J44.9 and Chronic obstructive pulmonary disease, unspecified COPD type J44.[address] [id number] [place] [address] Oct, Benign essential hypertension I10 and Ne ck pain M54.[address] [id number] [place] [id number] Sep, PAD (peripheral artery disease) I73.9 ; Claudication of both lower extremities I73.9 ; Bilateral carotid artery disease I77.9 ; Benign essential hypertension I10 ; Hyperlipemia E78.5 and Dyspnea on exertion R06.09 [facility] [address] [id number] [place] [id number] Aug, Benign essential hypertension I10 ; Vannessa roesophageal reflux disease without esophagitis K21.9 and Cervical radiculopathy M54.12 [facility] [address] [id number] [place] [id number] Aug, Gastroesophageal reflux disease without esophagitis K21.9 [facility] [address] [id number] [place] [id number] Aug, COPD (chronic obstructive pulmonary dise ase) with chronic bronchitis J44.9 [facility] [address] [id number] [place] [id number] Jul, [facility] [address] [id number] [place] [id number] Jul, Benign essential hypertension I10 [facility] [address] [id number] [place] [address] Jul, [facility] [address] [id number] [place] [id number] Jul, COPD (chronic obstructive pulmonary dise ase) with chronic bronchitis J44.9 [facility] [address] [id number] [place] [address] Jul, Neck pain M54.2 [facility] [address] [id number] [place] [address] Jun, Claudication of both lower extremities I 73.9 ; PAD (peripheral artery disease) I73.9 ; Bilateral carotid artery disease I77.9 ; CAD (coronary artery disease) I25.10 ; Tobacco abuse Z72.0 ; Benign essential hypertension I10 ; Hyperlipemia E78.5 and Non-rheumatic mitral valve stenosis I34.2 [facility] [address] [id number] [place] [address] Jun, Chronic obstructive pulmonary disease, u nspecified COPD type J44.[address] [facility] [address] [id number] [place] [id number] May, [facility] [address] [id number] [place] [address] May, Chronic obstructive pulmonary disease, u nspecified COPD type J44.[address] [facility] [address] [id number] [place] [id number] May, Neck pain M54.2 ; Chronic obstructive pu lmonary disease, unspecified COPD type J44.9 and Cervical radiculopathy M54.[address] [facility] [address] [id number] [place] [id number] May, [facility] [address] [id number] [place] [id number] Apr, [facility] [address] [id number] [place] [address] Apr, Gastroesophageal reflux disease without esophagitis K21.[address] [facility] [address] [id number] [place] [id number] Apr, COPD (chronic obstructive pulmonary dise ase) with chronic bronchitis J44.9 [facility] [address] [id number] [place] [address]23[address] Apr, [facility] [address] [id number] [place] [address] Apr, [facility] [address] [id number] [place] 445124322 Apr, COPD (chronic obstructive pulmonary dise ase) with chronic bronchitis J44.9 ; Benign essential hypertension I10 ; Tobacco abuse counseling Z71.6 and Hyperlipemia E78.[address] [facility] [address] [id number] [place] [address] February, COPD (chronic obstructive pulmonary dise ase) with chronic bronchitis J44.[address] [facility] [address] [id number] [place] 864232395 Jan, [facility] [address] [id number] [place] 590994008 Jan, COPD (chronic obstructive pulmonary dise ase) with chronic bronchitis J44.9 [facility] [address] [id number] [place] [id number] Oct, COPD (chronic obstructive pulmonary dise ase) with chronic bronchitis J44.9 [facility] [address] [id number] [place] [address] Oct, Winter itch L29.[address] [facility] [address] [id number] [place] [id number] Oct, COPD (chronic obstructive pulmonary dise ase) with chronic bronchitis J44.9 ; Benign essential hypertension I10 ; Tobacco abuse Z72.0 and Gastroesophageal reflux disease without esophagitis K21.9 [facility] [address] [id number] [place] [id number] Sep, Benign essential hypertension I10 [facility] [id number] [place] [id number] Aug, [facility] [address] [id number] [place] [address]29[address] Jul, [facility] [id number] [place] 015093448 Apr, [facility] [address] [id number] [place] [address] Apr, Abdominal bloating R14.0 ; Fatty liver K 76.0 ; Diverticulosis of intestine without bleeding, unspecified intestinal tract location K57.90 ; Chronic obstructive pulmonary disease, unspecified COPD type J44.9 and Benign essential hypertension I10 [facility] [id number] [place] 730928995 Apr, Mild early onset dysthymic disorder, in partial remission, with melancholic features, 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 [facility] [address] [id number] [place] [address] Mar, Abdominal muscle strain, initial encount er S39.011A [facility] [id number] [place], [place] 650334638 Jan, Pancreatitis K85.9 ; Abdominal bloating R14.0 ; Chronic bronchitis J42 and Chronic pain G89.29 [facility] [address] [id number] [place] 710[address] Nov, [facility] [address] [id number] [place] [id number] Nov, [facility] [address] [id number] [place] [id number] Nov, Chronic bronchitis J42 ; Tobacco abuse Z 72.0 and Tobacco abuse counseling Z71.6 [facility] [address] [id number] [place] 452779236 Oct, [facility] [address] [id number] [place] 209187483 Oct, Chronic bronchitis J42 ; Tobacco abuse Z 72.0 and Benign essential hypertension I10 [facility] [address] [id number] [place] 113480844 Oct, Chronic bronchitis J42 ; Tobacco abuse Z 72.0 ; Tobacco abuse counseling Z71.6 ; Benign essential hypertension I[address] [facility] [address] [id number] [address] [place] [address] Sep, [facility] [address] [id number] [place] [id number] Jul, [facility] [address] [id number] [address] [place] [address] Jul, Essential (primary) hyperten aida I10 [facility] [id number] [place] [address] Jul, [facility] [address] [id number] [place] [id number] Jul, [facility] [address] [id number] [place] 936842919 Jun, Benign essential hypertension 401.1 ; Ge neralized edema 782.3 ; Chronic pain 338.29 and Hyperlipemia 272.4 [facility] [address] [id number] [place] 839129496 May, Upper respiratory infection 465.9 and Co ugh 786.2 [facility] [address] [id number] [place] [address]8230[address] Mar, Upper respiratory infection 465.9 ; 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 [id number] [place] [address] Jan, [facility] [address] [id number] [address] [place] [address] Jan, [facility] [address] [id number] [address] [place] [address] Dec, [facility] [address] [id number] [address] [place] [address] Dec, [facility] [address] [id number] [address] [place] [address] Nov, [facility] [address] [id number] [address] [place] [address] Nov, [facility] [address] [id number] [address] [place] [address] Nov, [facility] [address] [id number] [address] [place] [address] Nov, [facility] [address] [id number] [address] [place] [address], [place] [address] Nov, [facility] [address] [id number] [address] [place] [address], [place] [address] Nov, [facility] [address] [id number] [address] [place] [address], [place] [address] Nov, [facility] [address] [id number] [address] [place] [address], [place] [address] Nov, [facility] [address] [id number] [address] [place] [address], [place] [address] Nov, [facility] [address] [id number] [address] [place] [address], [place] [address] Oct, [facility] [address] [id number] [address] [place] [address], [place] [address] Oct, [facility] [address] [id number] [address] [place] [address], [place] [address] Oct, [facility] [address] [id number] [address] [place] [address], [place] [address] Oct, [facility] [address] [id number] [address] [place] [address], [place] [address] Oct, [facility] [address] [id number] [address] [place] [address], [place] [address] Oct, [facility] [address] [id number] [address] [place] [address], [place] [address] Oct, [facility] [address] [id number] [address] [place] [address], [place] [address] Oct, [facility] [address] [id number] [address] [place] [address], [place] [address] Oct, [facility] [address] [id number] [address] [place] [address], [place] [address] Oct, [facility] [address] [id number] [place] [id number] Oct, [facility] [address] [id number] [address] [place] [address], [place] [address] Oct, [facility] [address] [id number] [address] [place] [address], [place] [address] Sep, [facility] [address] [id number] [address] [place] [address], [place] [address] Sep, [facility] [address] [id number] [address] [place] [address], [place] [address] Aug, [facility] [address] [id number] [address] [place] [address], [place] [address] Aug, [facility] [address] [id number] [address] [place] [address], [place] [address] Aug, [facility] [address] [id number] [address] [place] [address], [place] [address] Aug, [facility] [address] [id number] [address] [place] [address], [place] [address] Jul, [facility] [address] [id number] [address] [place] [address], [place] [address] Jul, [facility] [address] [id number] [address] [place] [address], [place] [address] Jun, [facility] [address] [id number] [address] [place] [address], [place] [address] Jun, [facility] [address] [id number] [address] [place] [address], [place] [address] May, [facility] [address] [id number] [address] [place] [address], [place] [address] May, [facility] [address] [id number] [address] [place] [address], [place] [address] May, [facility] [address] [id number] [address] [place] [address], [place] [address] May, [facility] [address] [id number] [address] [place] [address], [place] [address] Jan, [facility] [address] [id number] [address] [place] [address], [place] [address] Jan, [facility] [address] [id number] [address] [place] [address], [place] [address] Nov, [facility] [address] [id number] [address] [place] [address], [place] [address] Nov, [facility] [address] [id number] [address] [place] [address], [place] [address] Nov, [facility] [address] [id number] [address] [place] [address], [place] [address] Nov, [facility] [address] [id number] [address] [place] [address], [place] [address] Nov, [facility] [address] [id number] [address] [place] [address], [place] [address] Nov, [facility] [address] [id number] [address] [place] [address], [place] [address] Nov, [facility] [address] [id number] [address] [place] [address], [place] [address] Nov, [facility] [address] [id number] [address] [place] [address], [place] [address] Nov, [facility] [address] [id number] [address] [place] [address], [place] [address] Nov, [facility] [address] [id number] [address] [place] [address], [place] [address] Oct, [facility] [address] [id number] [address] [place] [address], [place] [address] Oct, [facility] [address] [id number] [address] [place] [address], [place] [address] Oct, [facility] [address] [id number] [address] [place] [address], [place] [address] Oct, [facility] [address] [id number] [address] [place] [address], [place] [address] Sep, [facility] [address] [id number] [address] [place] [address], [place] [address] Sep, [facility] [address] [id number] [address] [place] [address], [place] [address] Aug, [facility] [address] [id number] [address] [place] [address], [place] [address] Aug, [facility] [address] [id number] [address] [place] [address], [place] [address] Aug, [facility] [address] [id number] [address] [place] [address], [place] [address] Aug, [facility] [address] [id number] [address] [place] [address], [place] [address] Aug, [facility] [address] [id number] [address] [place] [address], [place] [address] Aug, [facility] [address] [id number] [address] [place] [address], [place] [address] Aug, [facility] [address] [id number] [address] [place] [address], [place] [address] Aug, [facility] [address] [id number] [address] [place] [address], [place] [address] Jul, [facility] [address] [id number] [address] [place] [address], [place] [address] Jul, [facility] [address] [id number] [address] [place] [address], [place] [address] Jul, [facility] [address] [id number] [address] [place] [address], [place] [address] Jul, [facility] [address] [id number] [address] [place] [address] Jul, [facility] [address] [id number] [address] [place] [address] Jun, [facility] [address] [id number] [address] [place] [address] May, [facility] [address] [id number] [address] [place] [phone] Apr, [facility] [address] [id number] [address] [place] [phone] February, [facility] [address] [id number] [address] [place] [phone] Jan, [facility] [address] [id number] [address] [place] [phone] Jan, [facility] [address] [id number] [address] [place] [phone] Dec, [facility] [address] [id number] [address] [place] [phone] Dec, [facility] [address] [id number] [address] [place] [phone] Dec, [facility] [address] [id number] [address] [place] [id number] Nov, [facility] [address] [id number] [address] [place] [phone] Nov, [facility] [address] [id number] [address] [place] [phone] Nov, [facility] [address] [id number] [address] [place] [phone] Nov, IMMUNIZATIONS No Known Immunizations SOCIAL HISTORY Never Assessed REASON FOR VISIT Cardiology f/u PLAN OF CARE Activity Details Follow Up 2 Months Reason: VITAL SIGNS Height 62 in 2017-09-28 Weight 161 lbs 2017-09-28 Heart Rate 60 bpm 2017-09-28 Oximetry 97 % 2017-09-28 BMI 29.44 kg/m2 2017-09-28 Blood pressure systolic 160 mmHg 2017-09-28 Blood pressure diastolic 82 mmHg 2017-09-28 MEDICATIONS Medication Instructions Dosage Frequency Start Date End Date Duration S tatus Aspirin 81 MG Orally Once a day 1 tablet 24h Active Metoprolol Tartrate 50 mg Orally Twice a day 1 tablet 12h Active Crestor 20 mg Orally Once a day 1 tablet 24h Apr, 90 days Active Flovent HFA 110 MCG/ACT Inhalation Twice a day (PALS) 2 puff Oct, Active Bevespi Aerosphere 9-4.8 MCG/ACT Inhalation Twice a day (PALS) 2 pu ffs Apr, Not-Taking Pepcid 20 mg Orally Once a day 1 tablet 24h Not-Taking Celebrex 200 mg Orally Once a day 1 capsule with food 24h May, 17 Active Dxenk-2-eefh Ethyl Esters 1 GM 1 capsule by Oral route 3 zo es per day Not-Taking Norvasc 5 mg Orally Once a day 1 tablet 24h Active Lisinopril 40 mg Orally Once a day 1 tablet Once a day Orally 24h Active Ventolin HFA 108 (90 Base) MCG/ACT Inhalation every 4 hrs 2 puffs a s needed 4h Apr, Active Protonix 40 mg Orally Once a day- stop omeprazole 1 tablets 2016 Active Gabapentin 600 MG Orally 3 times a day 1 tablet 8h Active Bevespi Aerosphere 9-4.8 MCG/ACT Inhalation Twice a day 2 puffs 12h May, Active Plavix 75 MG Orally Once a day 1 tablet 24h Not-Taking Albuterol Sulfate (2.5 MG/3ML) 0.083% Inhalation Three times a day, PRN 3 ml Oct, Active Fish Oil 500 MG TAKE ONE CAPSULE BY MOUTH THREE TIMES DAILY 30 Not-Taking RESULTS Name Result Date Reference Range Carotid Ultrasound 2018-01-18 Echo 2D 2018-01-18 PROCEDURES Procedure Date Ordered Result Body Site MEASURE BLOOD OXYGEN LEVEL Sep 28, 2017 INSTRUCTIONS MEDICATIONS ADMINISTERED No Known Medications [...] 02/[address] [facility] [address] [facility] [place] normal [facility], LV function,-minimal RCA blockage <20% 1996 [facility]mild erosive esophagitis, mild nonspecific bulbar duodenitis 1996 Surgical History carotid endarterectomy, right- [facility] 01/14 015 Surgical History Heart cath with [facility] 2013 Surgical History Colonoscopy- tubular adenoma , hyperplastic polyp- repeat Colonoscopy 12/2016 Hospitalization History heart attack 1996 Hospitalization History slurred speech, fever, left arm pain [facility] [place] February 2015 Hospitalization History Pancreatitis 12/2015
--- OUTSIDE RECORDS SUMMARY | 2020-04-06 07:02 | XMS REPORT ---
Author Author Jermaine CAMPOS Organization [facility] Address [address] [place] [address] Care Team Providers Care Science Technicians Name Role Phone TIFFANIE CAMPOS Unavailable PROBLEMS Type Condition ICD9-CM Code AZZ07-DS Code Onset Dates Condition S tatus SNOMED Code Problem Gastroesophageal reflux disease without esophagitis K21.9 Active 641581369 Problem Bilateral carotid artery disease I77.9 Active 520928839 Problem Claudication of both lower extremities I73.9 Active 485974905 Problem Mixed hyperlipidemia E78.2 Active 893286911 Problem Peripheral arterial disease I73.9 Ac tive 924285913 Problem Chronic obstructive pulmonary disease, unspecified COPD ty pe J44.9 Active 04701439 Problem PAD (peripheral artery disease) I73.9 Active 305126374 Problem Claudication I73.9 Active 1243131 6 Problem Non-rheumatic mitral regurgitation I34.0 Active 605595502 Problem Tobacco abuse Z72.0 Active 915373 05 Problem Benign essential hypertension I10 Active 8871294 Problem Hyperlipemia E78.5 Active 5715150 4 Problem Chronic bronchitis J42 Active 6 9101838 Problem Diverticulosis of intestine without bleeding, unspecified intestinal tract location K57.90 Active 07388648 Problem Abdominal bloating R14.0 Active 1 37111960 Problem Chronic pain G89.29 Active 5244706 1 Problem Fatty liver K76.0 Active 11209152 7 Problem CAD (coronary artery disease) I25.10 Active 54941919 Problem COPD (chronic obstructive pulmonary disease) wit h chronic bronchitis J44.9 Active 487859971 ALLERGIES No Information ENCOUNTERS Encounter Location Date Diagnosis [facility] [address] [id number] [place] [id number] Mar, Peripheral arterial disease I73.[address] [id number] [place] [id number] February, Chronic pain G89.29 ; Hyperlipemia E78.5 and Benign essential hypertension I10 [facility] [employer] [id number] [place] [id number] Jan, COPD (chronic obstructive pulmonary dise ase) with chronic bronchitis J44.9 [facility] [employer] [address] [id number] [place] [id number] Jan, [facility] [employer] [address] [id number] [place] [address] Jan, Peripheral arterial disease I73.9 ; Carlo gn essential hypertension I10 ; Bilateral carotid artery disease I77.9 ; Claudication of both lower extremities I73.9 ; Mixed hyperlipidemia E78.2 ; Tobacco use Z72.0 and Non- rheumatic mitral regurgitation I34.0 [facility] [employer] [address] [id number] [place] [address] Jan, RUQ pain R10.11 ; Gastroesophageal reflu x disease without esophagitis K21.9 and Change in stool R19.5 [facility] [address] [id number] [place] [address] Jan, [facility] [employer] [address] [id number] [place] [address] Jan, Neck pain M54.2 ; Benign essential hyper tension I10 ; COPD (chronic obstructive pulmonary disease) with chronic bronchitis J44.9 and Chronic obstructive pulmonary disease, unspecified COPD type J44.9 [facility] [employer] [address] [id number] [place] [address] Jan, Chronic obstructive pulmonary disease, u nspecified COPD type J44.9 [facility] [address] [id number] [place] [address] Dec, [facility] [address] [id number] [place] [address] Dec, [facility] [employer] [address] [id number] [place] [address] Dec, COPD (chronic obstructive pulmonary dise ase) with chronic bronchitis J44.9 [facility] [address] [facility] [id number] [place] [address] Dec, [facility] [address] [facility] [id number] [address] [place] [address] Dec, [facility] [address] [id number] [place] [id number] Nov, [facility] [address] [id number] [place] [address] Nov, Benign essential hypertension I10 and CO PD (chronic obstructive pulmonary disease) with chronic bronchitis J44.9 [facility] [address] [id number] [place] [address] Nov, Hyperlipemia E78.5 ; Benign essential hy pertension I10 ; COPD (chronic obstructive pulmonary disease) with chronic bronchitis J44.9 ; Encounter for immunization Z23 ; Gastroesophageal reflux disease without esophagitis K21.9 and Chronic pain G89.29 [facility] [employer] [place] [address] AVE [id number] [place] [address] Oct, COPD (chronic obstructive pulmonary dise ase) with chronic bronchitis J44.9 and Chronic obstructive pulmonary disease, unspecified COPD type J44.9 [facility] [address] [id number] [place] [id number] Oct, COPD (chronic obstructive pulmonary dise ase) with chronic bronchitis J44.9 and Chronic obstructive pulmonary disease, unspecified COPD type J44.9 [facility] [employer] [place] [address] AVE [id number] [place] [address] Oct, COPD (chronic obstructive pulmonary dise ase) with chronic bronchitis J44.9 and Chronic obstructive pulmonary disease, unspecified COPD type J44.9 [facility] [employer] [id number] [place] [id number] Oct, Benign essential hypertension I10 and Ne ck pain M54.2 [facility] [employer] [address] [id number] [place] [address] Sep, PAD (peripheral artery disease) I73.9 ; Claudication of both lower extremities I73.9 ; Bilateral carotid artery disease I77.9 ; Benign essential hypertension I10 ; Hyperlipemia E78.5 and Dyspnea on exertion R06.09 [facility] [address] [id number] [place] [address] Aug, Benign essential hypertension I10 ; Vannessa roesophageal reflux disease without esophagitis K21.9 and Cervical radiculopathy M54.12 [facility] [address] [id number] [place] [address] Aug, Gastroesophageal reflux disease without esophagitis K21.9 [facility] [employer] [id number] [place] [address] Aug, COPD (chronic obstructive pulmonary dise ase) with chronic bronchitis J44.9 [facility] [employer] [address] [id number] [place] [address] Jul, [facility] [employer] [id number] [place] [address] Jul, Benign essential hypertension I10 [facility] [employer] [id number] [place] [id number] Jul, [facility] [employer] [address] [id number] [place] [address] Jul, COPD (chronic obstructive pulmonary dise ase) with chronic bronchitis J44.9 [facility] [address] [id number] [place] [id number] Jul, Neck pain M54.2 [facility] [employer] [id number] [place] [id number] Jun, Claudication of both lower extremities I 73.9 ; PAD (peripheral artery disease) I73.9 ; Bilateral carotid artery disease I77.9 ; CAD (coronary artery disease) I25.10 ; Tobacco abuse Z72.0 ; Benign essential hypertension I10 ; Hyperlipemia E78.5 and Non-rheumatic mitral valve stenosis I34.2 [facility] [employer] [id number] [place] [id number] Jun, Chronic obstructive pulmonary disease, u nspecified COPD type J44.[address] [facility] [address] [id number] [place] [address] May, [facility] [address] [id number] [place] [address] May, Chronic obstructive pulmonary disease, u nspecified COPD type J44.[address] [facility] [id number] [place] [address] May, Neck pain M54.2 ; Chronic obstructive pu lmonary disease, unspecified COPD type J44.9 and Cervical radiculopathy M54.[address] [facility] [address] [id number] [place] [address] May, [facility] [address] [id number] [place] [address] Apr, [facility] [address] [id number] [place] [address] Apr, Gastroesophageal reflux disease without esophagitis K21.9 [facility] [address] [id number] [place] [address] Apr, COPD (chronic obstructive pulmonary dise ase) with chronic bronchitis J44.9 [facility] [address] [id number] [place] [address] Apr, [facility] [address] [address] [id number] [place], [place] [id number] Apr, [facility] [address] [id number] [place] [address] Apr, COPD (chronic obstructive pulmonary dise ase) with chronic bronchitis J44.9 ; Benign essential hypertension I10 ; Tobacco abuse counseling Z71.6 and Hyperlipemia E78.[address] [facility] [address] [id number] [place] [address] February, COPD (chronic obstructive pulmonary dise ase) with chronic bronchitis J44.[address] [facility] [address] [id number] [place] [address] Jan, [facility] [address] [id number] [place] [address] Jan, COPD (chronic obstructive pulmonary dise ase) with chronic bronchitis J44.[address] [facility] [address] [id number] [place] [address] Oct, COPD (chronic obstructive pulmonary dise ase) with chronic bronchitis J44.[address] [facility] [address] [id number] [place] [address] Oct, Winter itch L29.8 [facility] [address] [id number] [place] [address] Oct, COPD (chronic obstructive pulmonary dise ase) with chronic bronchitis J44.9 ; Benign essential hypertension I10 ; Tobacco abuse Z72.0 and Gastroesophageal reflux disease without esophagitis K21.9 [facility] [address] [id number] [place] [id number] Sep, Benign essential hypertension I10 [facility] [address] [id number] [place] [address] Aug, [facility] [address] [id number] [place] [address] Jul, [facility] [address] [id number] [place] [address] Apr, [facility] [address] [id number] [place], [place] [id number] Apr, Abdominal bloating R14.0 ; Fatty liver K 76.0 ; Diverticulosis of intestine without bleeding, unspecified intestinal tract location K57.90 ; Chronic obstructive pulmonary disease, unspecified COPD type J44.9 and Benign essential hypertension I10 [facility] [address] [id number] [place], [place] [address] Apr, Mild early onset dysthymic disorder, in partial remission, with melancholic features, 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 [facility] [address] [id number] [place] [address] Mar, Abdominal muscle strain, initial encount er S39.011A [facility] [address] [id number] [place] [address] Jan, Pancreatitis K85.9 ; Abdominal bloating R14.0 ; Chronic bronchitis J42 and Chronic pain G89.29 [facility] [address] [id number] [place] [id number] Nov, [facility] [address] [id number] [place] [id number] Nov, [facility] [address] [id number] [place], [place] [address] Nov, Chronic bronchitis J42 ; Tobacco abuse Z 72.0 and Tobacco abuse counseling Z71.6 [facility] [address] [id number] [place], [place] [id number] Oct, [facility] [address] [id number] [place] [address] Oct, Chronic bronchitis J42 ; Tobacco abuse Z 72.0 and Benign essential hypertension I10 [facility] [address] [place] [address] AVE [id number] [place], [place] [address] Oct, Chronic bronchitis J42 ; Tobacco abuse Z 72.0 ; Tobacco abuse counseling Z71.6 ; Benign essential hypertension I10 and Hyperlipemia E78.5 [facility] [address] [place] [place] [id number] [address] [place] [address] Sep, [facility] [address] [id number] [place], [place] [id number] Jul, [facility] [address] [place] [id number] [address] [place] [address] Jul, Essential (primary) hyperten aida I10 [facility] [address] [facility] [id number] [address] [place] [address] Jul, [facility] [address] [id number] [place] [address] Jul, [facility] [address] [id number] [place], [place] [address] Jun, Benign essential hypertension 401.1 ; Ge neralized edema 782.3 ; Chronic pain 338.29 and Hyperlipemia 272.4 [facility] [address] [id number] [place], [place] [address] May, Upper respiratory infection 465.9 and Co ugh 786.[address] [id number] [place] 25[address] Mar, Upper respiratory infection 465.9 ; 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 and Cough 786.2 [facility] [address] [id number] [place] [id number] February, [facility] [place]NER[place] [id number] [id number] [place] [address] February, Status post bilateral carotid endarterec vito V45.89 ; CAD (coronary artery disease) 414.00 ; Benign essential hypertension 401.1 ; Hyperlipemia 272.4 ; Tobacco abuse 305.1 ; Tobacco abuse counseling V65.42 and Chronic bronchitis 491.9 [facility] [address] [id number] [address] [place] [address] Jan, [facility] [address] [id number] [address] [place] [address] Jan, [facility] [address] [id number] [address] [place] [address] Dec, [facility] [address] [id number] [address] [place] [address] Dec, [facility] [address] [id number] [address] [place] [address] Nov, [facility] [address] [id number] [address] [place] [address] Nov, [facility] [address] [id number] [address] [place] [address], [place] [address] 19 Nov, 2014 [facility] [address] [id number] [address] [place] [address], [place] [address] Nov, 2014 [facility] [address] [id number] [address] [place] [address], [place] [address] Nov, 2014 [facility] [address] [id number] [address] [place] [address], [place] [address] Nov, 2014 [facility] [address] [id number] [address] [place] [address], [place] [address] Nov, 2014 [facility] [address] [id number] [address] [place] [address], [place] [address] Nov, [facility] [address] [id number] [address] [place] [address], [place] [address] Nov, [facility] [address] [id number] [address] [place] [address], [place] [address] Oct, [facility] [address] [id number] [address] [place] [address], [place] [address] Oct, [facility] [address] [id number] [address] [place] [address], [place] [address] Oct, [facility] [address] [id number] [address] [place] [address], [place] [address] Oct, [facility] [address] [id number] [address] [place] [address], [place] [address] Oct, [facility] [address] [id number] [address] [place] [address], [place] [address] Oct, [facility] [address] [id number] [address] [place] [address], [place] [address] Oct, [facility] [address] [id number] [address] [place] [address], [place] [address] Oct, [facility] [address] [id number] [address] [place] [address], [place] [address] Oct, [facility] [address] [id number] [address] [place] [address], [place] [address] Oct, [facility] [address] [id number] [place] [id number] Oct, [facility] [address] [id number] [address] [place] [address], [place] [address] Oct, [facility] [address] [id number] [address] [place] [address], [place] [address] Sep, [facility] [address] [id number] [address] [place] [address], [place] [address] Sep, [facility] [address] [id number] [address] [place] [address], [place] [address] Aug, [facility] [address] [id number] [address] [place] [address], [place] [address] Aug, [facility] [address] [id number] [address] [place] [address], [place] [address] Aug, [facility] [address] [id number] [address] [place] [address], [place] [address] Aug, [facility] [address] [id number] [address] [place] [address], [place] [address] Jul, [facility] [address] [id number] [address] [place] [address], [place] [address] Jul, [facility] [address] [id number] [address] [place] [address] Jun, [facility] [address] [id number] [address] [place] [address], [place] [address] Jun, [facility] [address] [id number] [address] [place] [address], [place] [address] May, [facility] [address] [id number] [address] [place] [address], [place] [address] May, [facility] [address] [id number] [address] [place] [address], [place] [address] May, [facility] [address] [id number] [address] [place] [address], [place] [address] May, [facility] [address] [id number] [address] [place] [address], [place] [address] Jan, [facility] [address] [id number] [address] [place] [address], [place] [address] Jan, [facility] [address] [id number] [address] [place] [address], [place] [address] Nov, [facility] [address] [id number] [address] [place] [address], [place] [address] Nov, [facility] [address] [id number] [address] [place] [address], [place] [address] Nov, [facility] [address] [id number] [address] [place] [address], [place] [address] Nov, [facility] [address] [id number] [address] [place] [address], [place] [address] Nov, [facility] [address] [id number] [address] [place] [address], [place] [address] Nov, [facility] [address] [id number] [address] [place] [address], [place] [address] Nov, [facility] [address] [id number] [address] [place] [address], [place] [address] Nov, [facility] [address] [id number] [address] [place] [address], [place] [address] Nov, [facility] [address] [id number] [address] [place] [address], [place] [address] Nov, [facility] [address] [id number] [address] [place] [address], [place] [address] Oct, [facility] [address] [id number] [address] [place] [address], [place] [address] Oct, [facility] [address] [id number] [address] [place] [address], [place] [address] Oct, [facility] [address] [id number] [address] [place] [address], [place] [address] Oct, [facility] [address] [id number] [address] [place] [address], [place] [address] Sep, [facility] [address] [id number] [address] [place] [address] Sep, [facility] [address] [id number] [address] [place] [address], [place] [address] Aug, [facility] [address] [id number] [address] [place] [address] Aug, [facility] [address] [id number] [address] [place] [address], [place] [address] Aug, [facility] [address] [id number] [address] [place] [address] Aug, [facility] [address] [id number] [address] [place] [address], [place] [address] Aug, [facility] [address] [id number] [address] [place] [address] Aug, [facility] [address] [id number] [address] [place] [address] Aug, [facility] [address] [id number] [address] [place] [address] Aug, [facility] [address] [id number] [address] [place] [address], [place] [id number] Jul, [facility] [address] [id number] [address] [place] [phone] Jul, [facility] [address] [id number] [address] [place] [phone] Jul, [facility] [address] [id number] [address] [place] [phone] Jul, [facility] [address] [id number] [address] [place] [id number] Jul, [facility] [address] [id number] [address] [place] [phone] Jun, [facility] [address] [id number] [address] [place] [phone] May, [facility] [address] [id number] [address] [place] [id number] Apr, [facility] [address] [id number] [address] [place] [id number] February, [facility] [address] [id number] [address] [place] [id number] Jan, [facility] [address] [id number] [address] [place] [phone] Jan, [facility] [address] [id number] [address] [place] [id number] Dec, [facility] [address] [id number] [address] [place] [id number] Dec, [facility] [address] [id number] [address] [place] [id number] Dec, [facility] [address] [id number] [address] [place] [id number] Nov, [facility] [address] [id number] [address] [place] [phone] Nov, [facility] [address] [id number] [address] [place] [id number] Nov, [facility] [address] [id number] [address] [place] [id number] Nov, IMMUNIZATIONS No Known Immunizations SOCIAL HISTORY Never Assessed REASON FOR VISIT results/letter PLAN OF CARE VITAL SIGNS MEDICATIONS Unknown [...] Surgical History coronary angiography Dr Mane thakur [facility] [place]- normal EF, LV function,-minimal RCA blockage <20% 1996 [facility]osive es[facility], mild nonspecific bulbar duodenitis 1996 Surgical History carotid endarterectomy, right- [facility] 01/14 015 Surgical History Heart cath with [facility] 2013 Surgical History Colonoscopy- tubular adenoma , hyperplastic polyp- repeat Colonoscopy 12/2016 Hospitalization History heart attack 1996 Hospitalization History slurred speech, fever, left arm pain [facility] [place] February 2015 Hospitalization History Pancreatitis 12/2015
--- OUTSIDE RECORDS SUMMARY | 2020-04-06 07:03 | XMS REPORT ---
Author Author Jermaine CAMPOS Organization [facility] Address [address] [place] [address] Care Team Providers Care Is Manager Name Role Phone TIFFANIE CAMPOS Unavailable PROBLEMS Type Condition ICD9-CM Code ETZ42-GL Code Onset Dates Condition S tatus SNOMED Code Problem Gastroesophageal reflux disease without esophagitis K21.9 Active 019929419 Problem Bilateral carotid artery disease I77.9 Active 313341512 Problem Claudication of both lower extremities I73.9 Active 484091163 Problem Mixed hyperlipidemia E78.2 Active 366204630 Problem Peripheral arterial disease I73.9 Ac tive 710943369 Problem Chronic obstructive pulmonary disease, unspecified COPD ty pe J44.9 Active 57143114 Problem PAD (peripheral artery disease) I73.9 Active 273757014 Problem Claudication I73.9 Active 8227946 6 Problem Non-rheumatic mitral regurgitation I34.0 Active 069798213 Problem Tobacco abuse Z72.0 Active 363590 05 Problem Benign essential hypertension I10 Active 5061873 Problem Hyperlipemia E78.5 Active 5070191 4 Problem Chronic bronchitis J42 Active 6 7711481 Problem Diverticulosis of intestine without bleeding, unspecified intestinal tract location K57.90 Active 69796741 Problem Abdominal bloating R14.0 Active 1 84338813 Problem Chronic pain G89.29 Active 7175125 1 Problem Fatty liver K76.0 Active 50356871 7 Problem CAD (coronary artery disease) I25.10 Active 29163550 Problem COPD (chronic obstructive pulmonary disease) wit h chronic bronchitis J44.9 Active [id number] ALLERGIES No Information ENCOUNTERS Encounter Location Date Diagnosis [facility] [address] [id number] [place] [id number] Mar, Peripheral arterial disease I73.[address] [id number][place] [address] February, Chronic pain G89.29 ; Hyperlipemia E78.5 and Benign essential hypertension I10 [facility] [email or web address] [id number], [place] [id number] Jan, COPD (chronic obstructive pulmonary dise ase) with chronic bronchitis J44.9 [facility] [email or web address] [id number], [place] [id number] Jan, [facility] [email or web address] [id number], [place] [id number] Jan, Peripheral arterial disease I73.9 ; Carlo gn essential hypertension I10 ; Bilateral carotid artery disease I77.9 ; Claudication of both lower extremities I73.9 ; Mixed hyperlipidemia E78.2 ; Tobacco use Z72.0 and Non- rheumatic mitral regurgitation I34.0 [facility] [address] [id number], [place] [id number] Jan, RUQ pain R10.11 ; Gastroesophageal reflu x disease without esophagitis K21.9 and Change in stool R19.5 [facility] [address] [id number], [place] [address] Jan, [facility] [email or web address] [id number], [place] [id number] Jan, Neck pain M54.2 ; Benign essential hyper tension I10 ; COPD (chronic obstructive pulmonary disease) with chronic bronchitis J44.9 and Chronic obstructive pulmonary disease, unspecified COPD type J44.9 [facility] [email or web address] [id number], [place] [address] Jan, Chronic obstructive pulmonary disease, u nspecified COPD type J44.9 [facility] [id number], [place] [address] Dec, [facility] [address] [id number], [place] [address] Dec, [facility] [email or web address] [id number], [place] [id number] Dec, COPD (chronic obstructive pulmonary dise ase) with chronic bronchitis J44.9 [facility] [address] [facility] [id number] [place] [address] Dec, [facility] [address] [facility] [id number] [address] [place] [address] Dec, [facility] [address] [id number], [place] [id number] Nov, [facility] [address] [id number][place] [address] Nov, Benign essential hypertension I10 and CO PD (chronic obstructive pulmonary disease) with chronic bronchitis J44.9 [facility] [address] [id number], [place] [address] Nov, Hyperlipemia E78.5 ; Benign essential hy pertension I10 ; COPD (chronic obstructive pulmonary disease) with chronic bronchitis J44.9 ; Encounter for immunization Z23 ; Gastroesophageal reflux disease without esophagitis K21.9 and Chronic pain G89.29 [facility] [email or web address] [place] [address] AVE [id number], [place] [id number] Oct, COPD (chronic obstructive pulmonary dise ase) with chronic bronchitis J44.9 and Chronic obstructive pulmonary disease, unspecified COPD type J44.9 [facility] [address] [id number], [place] [address] Oct, COPD (chronic obstructive pulmonary dise ase) with chronic bronchitis J44.9 and Chronic obstructive pulmonary disease, unspecified COPD type J44.9 [facility] [email or web address] [place] [address] AVE [id number], [place] [address] Oct, COPD (chronic obstructive pulmonary dise ase) with chronic bronchitis J44.9 and Chronic obstructive pulmonary disease, unspecified COPD type J44.9 [facility] [email or web address] [id number], [place] [address] Oct, Benign essential hypertension I10 and Ne ck pain M54.2 [facility] [address] [id number], [place] [address] Sep, PAD (peripheral artery disease) I73.9 ; Claudication of both lower extremities I73.9 ; Bilateral carotid artery disease I77.9 ; Benign essential hypertension I10 ; Hyperlipemia E78.5 and Dyspnea on exertion R06.09 [facility] [address] [id number], [place] [id number] Aug, Benign essential hypertension I10 ; Vannessa roesophageal reflux disease without esophagitis K21.9 and Cervical radiculopathy M54.12 [facility] [address] [id number], [place] [address] Aug, Gastroesophageal reflux disease without esophagitis K21.9 [facility] [email or web address] [id number], [place] [id number] Aug, COPD (chronic obstructive pulmonary dise ase) with chronic bronchitis J44.9 [facility] [email or web address] [id number], [place] [id number] Jul, [facility] [email or web address] [id number], [place] [address] Jul, Benign essential hypertension I10 [facility] [email or web address] [id number], [place] [address] Jul, [facility] [email or web address] [id number], [place] [address]778 Jul, COPD (chronic obstructive pulmonary dise ase) with chronic bronchitis J44.9 [facility] [address] [id number], [place] [address] Jul, Neck pain M54.2 [facility] [email or web address] [id number], [place] [id number] Jun, Claudication of both lower extremities I 73.9 ; PAD (peripheral artery disease) I73.9 ; Bilateral carotid artery disease I77.9 ; CAD (coronary artery disease) I25.10 ; Tobacco abuse Z72.0 ; Benign essential hypertension I10 ; Hyperlipemia E78.5 and Non-rheumatic mitral valve stenosis I34.2 [facility] [email or web address] [id number], [place] [address] Jun, Chronic obstructive pulmonary disease, u nspecified COPD type J44.[address] [facility] [address] [id number] [place] [address] May, [facility] [address] [id number] [place] [id number] May, Chronic obstructive pulmonary disease, u nspecified COPD type J44.[address] [facility] [address] [id number] [place] [address] May, Neck pain M54.2 ; Chronic obstructive pu lmonary disease, unspecified COPD type J44.9 and Cervical radiculopathy M54.[address] [facility] [address] [id number] [place] [id number] May, [facility] [address] [id number], [place] [id number] Apr, [facility] [address] [id number], [place] [address] Apr, Gastroesophageal reflux disease without esophagitis K21.9 [facility] [address] [id number], [place] [address]341145 Apr, COPD (chronic obstructive pulmonary dise ase) with chronic bronchitis J44.9 [facility] [address] [id number], [place] [id number] Apr, [facility] [address] [id number], [place] [id number] Apr, [facility] [address] [id number], [place] [address] Apr, COPD (chronic obstructive pulmonary dise ase) with chronic bronchitis J44.9 ; Benign essential hypertension I10 ; Tobacco abuse counseling Z71.6 and Hyperlipemia E78.[address] [facility] [address] [id number] [place] [id number] February, COPD (chronic obstructive pulmonary dise ase) with chronic bronchitis J44.[address] [facility] [address] [id number] [place] [id number] Jan, [facility] [address] [id number] [place] [id number] Jan, COPD (chronic obstructive pulmonary dise ase) with chronic bronchitis J44.[address] [facility] [address] [id number] [place] [id number] Oct, COPD (chronic obstructive pulmonary dise ase) with chronic bronchitis J44.[address] [facility] [address] [id number] [place] [address] Oct, Winter itch L29.[address] [id number], [place] 210353975 Oct, COPD (chronic obstructive pulmonary dise ase) with chronic bronchitis J44.9 ; Benign essential hypertension I10 ; Tobacco abuse Z72.0 and Gastroesophageal reflux disease without esophagitis K21.9 [facility] [address] [id number], [place] 486478006 Sep, Benign essential hypertension I10 [facility] [address] [id number], [place] 197547045 Aug, [facility] [address] [id number], [place] [id number] Jul, [facility] [address] [id number], [place] [address]308[address]122 Apr, [facility] [address] [id number], [place] 139566945 Apr, Abdominal bloating R14.0 ; Fatty liver K 76.0 ; Diverticulosis of intestine without bleeding, unspecified intestinal tract location K57.90 ; Chronic obstructive pulmonary disease, unspecified COPD type J44.9 and Benign essential hypertension I10 [address] [address] [id number], [place] [id number] Apr, Mild early onset dysthymic disorder, in partial remission, with melancholic features, 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 [facility] [address] [id number], [place] 097107486 Mar, Abdominal muscle strain, initial encount er S39.011A [facility] [address] [id number], [place] 192227799 Jan, Pancreatitis K85.9 ; Abdominal bloating R14.0 ; Chronic bronchitis J42 and Chronic pain G89.29 [facility] [address] [id number], [place] [id number] Nov, [facility] [address] [id number], [place] [id number] Nov, [facility] [address] [facility] [address] [id number], [place] [id number] Nov, Chronic bronchitis J42 ; Tobacco abuse Z 72.0 and Tobacco abuse counseling Z71.6 [facility] [address] [id number], [place] 677997513 Oct, [facility] [address] [id number], [place] 384566190 Oct, Chronic bronchitis J42 ; Tobacco abuse Z 72.0 and Benign essential hypertension I10 [facility] [address] [place] [address] AVE [id number], [place] 742709441 Oct, Chronic bronchitis J42 ; Tobacco abuse Z 72.0 ; Tobacco abuse counseling Z71.6 ; Benign essential hypertension I10 and Hyperlipemia E78.5 [facility] [address] [id number] [address] [place] [address] Sep, [facility] [address] [id number], [place] [id number] Jul, [facility] [address] [id number] [address] [place] [address] Jul, Essential (primary) hyperten aida I10 [facility] [address] [facility] [id number] [address] [place] [address] Jul, [facility] [address] [id number], [place] [id number] Jul, [facility] [address] [id number], [place] [id number] Jun, Benign essential hypertension 401.1 ; Ge neralized edema 782.3 ; Chronic pain 338.29 and Hyperlipemia 272.4 [facility] [address] [id number], [place] 436813057 May, Upper respiratory infection 465.9 and Co ugh 786.[address] [id number], [place] [id number] Mar, Upper respiratory infection 465.9 ; 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 and Cough 786.2 [facility] [address] [id number], [place] [id number] February, [facility] [address] [id number], [place] 277249837 February, Status post bilateral carotid endarterec vito V45.89 ; CAD (coronary artery disease) 414.00 ; Benign essential hypertension 401.1 ; Hyperlipemia 272.4 ; Tobacco abuse 305.1 ; Tobacco abuse counseling V65.42 and Chronic bronchitis 491.9 [facility] [address] [id number] [address] [place] [address] Jan, [facility] [address] [id number] [address] [place] [address] Jan, [facility] [address] [id number] [address] [place] [address] Dec, [facility] [address] [id number] [address] [place] [address] Dec, [facility] [address] [id number] [address] [place] [address] Nov, [facility] [address] [id number] [address] [place] [address] Nov, [facility] [address] [id number] [address] [place] [address], [place] [address] 19 Nov, 2014 [facility] [address] [id number] [address] [place] [address], [place] [address] Nov, 2014 [facility] [address] [id number] [address] [place] [address], [place] [address] Nov, 2014 [facility] [address] [id number] [address] [place] [address], [place] [address] Nov, 2014 [facility] [address] [id number] [address] [place] [address], [place] [address] Nov, 2014 [facility] [address] [id number] [address] [place] [address], [place] [address] Nov, [facility] [address] [id number] [address] [place] [address], [place] [address] Nov, [facility] [address] [id number] [address] [place] [address], [place] [address] Oct, [facility] [address] [id number] [address] [place] [address], [place] [address] Oct, [facility] [address] [id number] [address] [place] [address], [place] [address] Oct, [facility] [address] [id number] [address] [place] [address], [place] [address] Oct, [facility] [address] [id number] [address] [place] [address], [place] [address] Oct, [facility] [address] [id number] [address] [place] [address], [place] [address] Oct, [facility] [address] [id number] [address] [place] [address], [place] [address] Oct, [facility] [address] [id number] [address] [place] [address], [place] [address] Oct, [facility] [address] [id number] [address] [place] [address], [place] [address] Oct, [facility] [address] [id number] [address] [place] [address], [place] [address] Oct, [facility] [address] [id number] [place] [id number] Oct, [facility] [address] [id number] [address] [place] [address], [place] [address] Oct, [facility] [address] [id number] [address] [place] [address], [place] [address] Sep, [facility] [address] [id number] [address] [place] [address], [place] [address] Sep, [facility] [address] [id number] [address] [place] [address], [place] [address] Aug, [facility] [address] [id number] [address] [place] [address], [place] [address] Aug, [facility] [address] [id number] [address] [place] [address], [place] [address] Aug, [facility] [address] [id number] [address] [place] [address], [place] [address] Aug, [facility] [address] [id number] [address] [place] [address], [place] [address] Jul, [facility] [address] [id number] [address] [place] [address], [place] [address] Jul, [facility] [address] [id number] [address] [place] [address] Jun, [facility] [address] [id number] [address] [place] [address], [place] [address] Jun, [facility] [address] [id number] [address] [place] [address], [place] [address] May, [facility] [address] [id number] [address] [place] [address], [place] [address] May, [facility] [address] [id number] [address] [place] [address], [place] [address] May, [facility] [address] [id number] [address] [place] [address], [place] [address] May, [facility] [address] [id number] [address] [place] [address], [place] [address] Jan, [facility] [address] [id number] [address] [place] [address], [place] [address] Jan, [facility] [address] [id number] [address] [place] [address], [place] [address] Nov, [facility] [address] [id number] [address] [place] [address], [place] [address] Nov, [facility] [address] [id number] [address] [place] [address], [place] [address] Nov, [facility] [address] [id number] [address] [place] [address], [place] [address] Nov, [facility] [address] [id number] [address] [place] [address], [place] [address] Nov, [facility] [address] [id number] [address] [place] [address], [place] [address] Nov, [facility] [address] [id number] [address] [place] [address], [place] [address] Nov, [facility] [address] [id number] [address] [place] [address], [place] [address] Nov, [facility] [address] [id number] [address] [place] [address], [place] [address] Nov, [facility] [address] [id number] [address] [place] [address], [place] [address] Nov, [facility] [address] [id number] [address] [place] [address], [place] [address] Oct, [facility] [address] [id number] [address] [place] [address], [place] [address] Oct, [facility] [address] [id number] [address] [place] [address], [place] [address] Oct, [facility] [address] [id number] [address] [place] [address], [place] [address] Oct, [facility] [address] [id number] [address] [place] [address], [place] [address] Sep, [facility] [address] [id number] [address] [place] [address] Sep, [facility] [address] [id number] [address] [place] [address], [place] [address] Aug, [facility] [address] [id number] [address] [place] [address] Aug, [facility] [address] [id number] [address] [place] [address], [place] [address] Aug, [facility] [address] [id number] [address] [place] [address] Aug, [facility] [address] [id number] [address] [place] [address], [place] [address] Aug, [facility] [address] [id number] [address] [place] [address] Aug, [facility] [address] [id number] [address] [place] [address] Aug, [facility] [address] [id number] [address] [place] [address] Aug, [facility] [address] [id number] [address] [place] [address], [place] [address] Jul, [facility] [address] [id number] [address] [place] [address] Jul, [facility] [address] [id number] [address] [place] [address] Jul, [facility] [address] [id number] [address] [place] [address] Jul, [facility] [address] [id number] [address] [place] [address] Jul, [facility] [address] [id number] [address] [place] [id number] Jun, [facility] [address] [id number] [address] [place] [id number] May, [facility] [address] [id number] [address] [place] [id number] Apr, [facility] [address] [id number] [address] [place] [id number] February, [facility] [address] [id number] [address] [place] [phone] Jan, [facility] [address] [id number] [address] [place] [phone] Jan, [facility] [address] [id number] [address] [place] [phone] Dec, [facility] [address] [id number] [address] [place] [phone] Dec, [facility] [address] [id number] [address] [place] [phone] Dec, [facility] [address] [id number] [address] [place] [phone] Nov, [facility] [address] [id number] [address] [place] [phone] Nov, [facility] [address] [id number] [address] [place] [phone] Nov, [facility] [address] [id number] [address] [place] [id number] Nov, IMMUNIZATIONS No Known Immunizations SOCIAL HISTORY Never Assessed REASON FOR VISIT PALS PLAN OF CARE VITAL SIGNS MEDICATIONS Medication Instructions Dosage Frequency Start Date End Date Duration S samreen Devineolin HFA 108 (90 Base) MCG/ACT Inhalation every 4 hrs 2 puffs a s needed 4h Apr, Active Flovent HFA 110 MCG/ACT Inhalation Twice a day (PALS) 2 puff Oct, Active RESULTS No Results PROCEDURES No [...] 02/[address] [facility], [facility],-minimal RCA blockage <20% 1996 [facility]ive es[facility], mild nonspecific bulbar duodenitis 1996 Surgical History carotid endarterectomy, right- [facility] 01/14 015 Surgical History Heart cath with [facility] 2013 Surgical History Colonoscopy- tubular adenoma , hyperplastic polyp- repeat Colonoscopy 12/2016 Hospitalization History heart attack 1996 Hospitalization History slurred speech, fever, left arm pain Sharifa Shah February 2015 Hospitalization History Pancreatitis 12/2015
--- OUTSIDE RECORDS SUMMARY | 2020-04-06 07:03 | XMS REPORT ---
Author Author Jermaine CAMPOS Organization [facility] Address [address] [place] [address] Care Team Providers Care Sap Consultant Name Role Phone TIFFANIE CAMPOS Unavailable PROBLEMS Type Condition ICD9-CM Code ONC92-OS Code Onset Dates Condition S tatus SNOMED Code Problem Gastroesophageal reflux disease without esophagitis K21.9 Active 668086683 Problem Bilateral carotid artery disease I77.9 Active 295718544 Problem Claudication of both lower extremities I73.9 Active 190195505 Problem Mixed hyperlipidemia E78.2 Active 913035491 Problem Peripheral arterial disease I73.9 Ac tive 185473024 Problem Chronic obstructive pulmonary disease, unspecified COPD ty pe J44.9 Active 79639534 Problem PAD (peripheral artery disease) I73.9 Active 111946395 Problem Claudication I73.9 Active 9036186 6 Problem Non-rheumatic mitral regurgitation I34.0 Active 995735952 Problem Tobacco abuse Z72.0 Active 771627 05 Problem Benign essential hypertension I10 Active 2570841 Problem Hyperlipemia E78.5 Active 4298150 4 Problem Chronic bronchitis J42 Active 6 6538247 Problem Diverticulosis of intestine without bleeding, unspecified intestinal tract location K57.90 Active 70116053 Problem Abdominal bloating R14.0 Active 1 81671387 Problem Chronic pain G89.29 Active 1571799 1 Problem Fatty liver K76.0 Active 05563777 7 Problem CAD (coronary artery disease) I25.10 Active 46436354 Problem COPD (chronic obstructive pulmonary disease) wit h chronic bronchitis J44.9 Active 548086636 ALLERGIES No Information ENCOUNTERS Encounter Location Date Diagnosis [facility] [address] [id number] [place] [id number] February, Chronic pain G89.29 ; Hyperlipemia E78.5 and Benign essential hypertension I10 [facility] [address] [id number] [place] [id number] Jan, COPD (chronic obstructive pulmonary dise ase) with chronic bronchitis J44.9 [facility] [address] [id number][place] [address] Jan, [facility] [address] [id number][place] [id number] Jan, Peripheral arterial disease I73.9 ; Carlo gn essential hypertension I10 ; Bilateral carotid artery disease I77.9 ; Claudication of both lower extremities I73.9 ; Mixed hyperlipidemia E78.2 ; Tobacco use Z72.0 and Non- rheumatic mitral regurgitation I34.0 [facility] [employer] [place] [address] AVE [id number] [address] Jan, RUQ pain R10.11 ; Gastroesophageal reflu x disease without esophagitis K21.9 and Change in stool R19.5 [facility] [address] [id number][place] [id number] Jan, [facility] [address] [id number][place] [id number] Jan, Neck pain M54.2 ; Benign essential hyper tension I10 ; COPD (chronic obstructive pulmonary disease) with chronic bronchitis J44.9 and Chronic obstructive pulmonary disease, unspecified COPD type J44.9 [facility] [address] [id number][place] [id number] Jan, Chronic obstructive pulmonary disease, u nspecified COPD type J44.9 [facility] [address] [id number], [place] [id number] Dec, [facility] [address] [id number], [place] [id number] Dec, [facility] [address] [id number][place] [id number] Dec, COPD (chronic obstructive pulmonary dise ase) with chronic bronchitis J44.9 [facility] [address] [facility] [id number] [address] [place] [phone] Dec, [facility] [address] [facility] [id number] [address] [place] [address] Dec, [address] [id number][place] [id number] Nov, [address] [id number][place] [id number] Nov, Benign essential hypertension I10 and CO PD (chronic obstructive pulmonary disease) with chronic bronchitis J44.[address] [id number], [place] [id number] Nov, Hyperlipemia E78.5 ; Benign essential hy pertension I10 ; COPD (chronic obstructive pulmonary disease) with chronic bronchitis J44.9 ; Encounter for immunization Z23 ; Gastroesophageal reflux disease without esophagitis K21.9 and Chronic pain G89.[address] [id number], [place] [id number] Oct, COPD (chronic obstructive pulmonary dise ase) with chronic bronchitis J44.9 and Chronic obstructive pulmonary disease, unspecified COPD type J44.[address] [id number][place] [id number] Oct, COPD (chronic obstructive pulmonary dise ase) with chronic bronchitis J44.9 and Chronic obstructive pulmonary disease, unspecified COPD type J44.[address] [id number], [place] [id number] Oct, COPD (chronic obstructive pulmonary dise ase) with chronic bronchitis J44.9 and Chronic obstructive pulmonary disease, unspecified COPD type J44.[address] [id number], [place] [id number] Oct, Benign essential hypertension I10 and Ne ck pain M54.[address] [id number], [place] [address] Sep, PAD (peripheral artery disease) I73.9 ; Claudication of both lower extremities I73.9 ; Bilateral carotid artery disease I77.9 ; Benign essential hypertension I10 ; Hyperlipemia E78.5 and Dyspnea on exertion R06.09 [facility] [address] [id number] [place] [address] Aug, Benign essential hypertension I10 ; Vannessa roesophageal reflux disease without esophagitis K21.9 and Cervical radiculopathy M54.12 [facility] [address] [id number][place] [id number] Aug, Gastroesophageal reflux disease without esophagitis K21.9 [facility] [address] [id number][place] [id number] Aug, COPD (chronic obstructive pulmonary dise ase) with chronic bronchitis J44.9 [facility] [address] [id number], [place] [id number] Jul, [facility] [address] [id number], [place] [address] Jul, Benign essential hypertension I10 [facility] [address] [id number], [place] [id number] Jul, [facility] [address] [id number], [place] [address] Jul, COPD (chronic obstructive pulmonary dise ase) with chronic bronchitis J44.9 [facility] [address] [id number], [place] [id number] Jul, Neck pain M54.2 [facility] [address] [id number], [place] [id number] Jun, Claudication of both lower extremities I 73.9 ; PAD (peripheral artery disease) I73.9 ; Bilateral carotid artery disease I77.9 ; CAD (coronary artery disease) I25.10 ; Tobacco abuse Z72.0 ; Benign essential hypertension I10 ; Hyperlipemia E78.5 and Non-rheumatic mitral valve stenosis I34.2 [facility] [address] [id number], [place] [id number] Jun, Chronic obstructive pulmonary disease, u nspecified COPD type J44.9 [facility] [address] [id number] [place] [id number] May, [facility] [address] [id number] [place] [id number] May, Chronic obstructive pulmonary disease, u nspecified COPD type J44.[address] [facility] [address] [id number] [place] [id number] May, Neck pain M54.2 ; Chronic obstructive pu lmonary disease, unspecified COPD type J44.9 and Cervical radiculopathy M54.[address] [facility] [address] [id number] [place] [address] May, [facility] [address] [id number], [place] [id number] Apr, [facility] [address] [id number], [place] [address]846799[address] Apr, Gastroesophageal reflux disease without esophagitis K21.[address] [facility] [address] [id number], [place] 900431[address] Apr, COPD (chronic obstructive pulmonary dise ase) with chronic bronchitis J44.[address] [facility] [address] [id number], [place] [id number] Apr, [facility] [address] [id number], [place] [id number] Apr, [facility] [address] [id number], [place] [id number] Apr, COPD (chronic obstructive pulmonary dise ase) with chronic bronchitis J44.9 ; Benign essential hypertension I10 ; Tobacco abuse counseling Z71.6 and Hyperlipemia E78.[address] [facility] [address] [id number] [place] [id number] February, COPD (chronic obstructive pulmonary dise ase) with chronic bronchitis J44.[address] [facility] [address] [id number] [place] [id number] Jan, [facility] [address] [id number], [place] [id number] Jan, COPD (chronic obstructive pulmonary dise ase) with chronic bronchitis J44.9 [facility] [address] [id number], [place] [id number] Oct, COPD (chronic obstructive pulmonary dise ase) with chronic bronchitis J44.9 [facility] [address] [id number], [place] 084880674 Oct, Winter itch L29.[address] [facility] [address] [id number], [place] [id number] Oct, COPD (chronic obstructive pulmonary dise ase) with chronic bronchitis J44.9 ; Benign essential hypertension I10 ; Tobacco abuse Z72.0 and Gastroesophageal reflux disease without esophagitis K21.9 [facility] [address] [id number], [place] 732236155 Sep, Benign essential hypertension I10 [facility] [address] [id number], [place] [address]69843[address] Aug, [facility] [address] [id number], [place] [id number] Jul, [facility] [address] [id number], [place] [id number] Apr, [facility] [address] [id number], [place] [id number] Apr, Abdominal bloating R14.0 ; Fatty liver K 76.0 ; Diverticulosis of intestine without bleeding, unspecified intestinal tract location K57.90 ; Chronic obstructive pulmonary disease, unspecified COPD type J44.9 and Benign essential hypertension I10 [facility] [address] [id number], [place] [id number] Apr, Mild early onset dysthymic disorder, in partial remission, with melancholic features, 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 [facility] [address] [id number], [place] 722142837 Mar, Abdominal muscle strain, initial encount er S39.011A [facility] [address] [id number], [place] 587768146 Jan, Pancreatitis K85.9 ; Abdominal bloating R14.0 ; Chronic bronchitis J42 and Chronic pain G89.29 [facility] [address] [id number], [place] [id number] Nov, [facility] [address] [id number], [place] [id number] Nov, [facility] [address] [id number], [place] [id number] Nov, Chronic bronchitis J42 ; Tobacco abuse Z 72.0 and Tobacco abuse counseling Z71.6 [facility] [address] [id number], [place] 898693278 Oct, [facility] [address] [id number], [place] [id number] Oct, Chronic bronchitis J42 ; Tobacco abuse Z 72.0 and Benign essential hypertension I10 [facility] [address] [id number], [place] [id number] Oct, Chronic bronchitis J42 ; Tobacco abuse Z 72.0 ; Tobacco abuse counseling Z71.6 ; Benign essential hypertension I10 and Hyperlipemia E78.5 [facility] [address] [id number] [address] [place] [address] Sep, [facility] [address] [id number], [place] [id number] Jul, [facility] [address] [id number] [address] [place] [address] Jul, Essential (primary) hyperten aida I10 [facility] [address] [id number] [address] [place] [address] Jul, [facility] [address] [id number], [place] [id number] Jul, [facility] [address] [id number], [place] 720961726 Jun, Benign essential hypertension 401.1 ; Ge neralized edema 782.3 ; Chronic pain 338.29 and Hyperlipemia 272.4 [facility] [address] [id number], [place] [id number] May, Upper respiratory infection 465.9 and Co ugh 786.2 [facility] [address] [place] [address] AVE [id number], [place] 486296985 Mar, Upper respiratory infection 465.9 ; 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 and Cough 786.2 [facility] [address] [id number], [place] [id number] February, [facility] [address] [id number], [place] [id number] February, Status post bilateral carotid endarterec vito V45.89 ; CAD (coronary artery disease) 414.00 ; Benign essential hypertension 401.1 ; Hyperlipemia 272.4 ; Tobacco abuse 305.1 ; Tobacco abuse counseling V65.42 and Chronic bronchitis 491.9 [facility] [id number] [place] [address] Jan, [facility] [address] [id number] [address] [place] [phone] Jan, [facility] [address] [id number] [address] [place] [id number] Dec, [facility] [address] [facility] [id number] [address] [place] [id number] Dec, [facility] [address] [facility] [id number] [address] [place] [phone] Nov, [facility] [address] [facility] [id number] [address] [place] [id number] Nov, [facility] [address] [id number] [address] [place] [phone] Nov, [facility] [address] [id number] [address] [place] [address], [place] [address] 17 Nov, 2014 [facility] [address] [id number] [address] [place] [address], [place] [address] Nov, 2014 [facility] [address] [id number] [address] [place] [address], [place] [address] 10 Nov, 2014 [facility] [address] [id number] [address] [place] [address], [place] [address] Nov, 2014 [facility] [address] [id number] [address] [place] [address], [place] [address] Nov, [facility] [address] [id number] [address] [place] [address], [place] [address] Nov, [facility] [address] [id number] [address] [place] [address], [place] [address] Oct, [facility] [address] [id number] [address] [place] [address], [place] [address] Oct, [facility] [address] [id number] [address] [place] [address], [place] [address] Oct, [facility] [address] [id number] [address] [place] [address], [place] [address] Oct, [facility] [address] [id number] [address] [place] [address], [place] [address] Oct, [facility] [address] [id number] [address] [place] [address], [place] [address] Oct, [facility] [address] [id number] [address] [place] [address], [place] [address] Oct, [facility] [address] [id number] [address] [place] [address], [place] [address] Oct, [facility] [address] [id number] [address] [place] [address], [place] [address] Oct, [facility] [address] [id number] [address] [place] [address], [place] [address] Oct, [facility] [address] [id number] [place] [id number] Oct, [facility] [address] [id number] [address] [place] [address], [place] [address] Oct, [facility] [address] [id number] [address] [place] [address], [place] [address] Sep, [facility] [address] [id number] [address] [place] [address], [place] [address] Sep, [facility] [address] [id number] [address] [place] [address], [place] [address] Aug, [facility] [address] [id number] [address] [place] [address], [place] [address] Aug, [facility] [address] [id number] [address] [place] [address], [place] [address] Aug, [facility] [address] [id number] [address] [place] [address], [place] [address] Aug, [facility] [address] [id number] [address] [place] [address], [place] [address] Jul, [facility] [address] [id number] [address] [place] [address], [place] [address] Jul, [facility] [address] [id number] [address] [place] [address], [place] [address] Jun, [facility] [address] [id number] [address] [place] [address], [place] [address] Jun, [facility] [address] [id number] [address] [place] [address], [place] [address] May, [facility] [address] [id number] [address] [place] [address], [place] [address] May, [facility] [address] [id number] [address] [place] [address], [place] [address] May, [facility] [address] [id number] [address] [place] [address], [place] [address] May, [facility] [address] [id number] [facility] [place] [address] Jan, [facility] [address] [id number] [address] [place] [address], [place] [address] Jan, [facility] [address] [id number] [address] [place] [address], [place] [address] Nov, [facility] [address] [id number] [address] [place] [address], [place] [address] Nov, [facility] [address] [id number] [address] [place] [address], [place] [address] Nov, [facility] [address] [id number] [address] [place] [address], [place] [address] Nov, [facility] [address] [id number] [address] [place] [address], [place] [address] Nov, [facility] [address] [id number] [address] [place] [address], [place] [address] Nov, [facility] [address] [id number] [address] [place] [address], [place] [address] Nov, [facility] [address] [id number] [address] [place] [address], [place] [address] Nov, [facility] [address] [id number] [address] [place] [address], [place] [address] Nov, [facility] [address] [id number] [address] [place] [address], [place] [address] Nov, [facility] [address] [id number] [address] [place] [address], [place] [address] Oct, [facility] [address] [id number] [address] [place] [address], [place] [address] Oct, [facility] [address] [id number] [address] [place] [address], [place] [address] Oct, [facility] [address] [id number] [address] [place] [address], [place] [address] Oct, [facility] [address] [id number] [address] [place] [address], [place] [address] Sep, [facility] [address] [id number] [address] [place] [address] Sep, [facility] [address] [id number] [address] [place] [address], [place] [address] Aug, [facility] [address] [id number] [address] [place] [address], [place] [address] Aug, [facility] [address] [id number] [address] [place] [address], [place] [address] Aug, [facility] [address] [id number] [address] [place] [address], [place] [address] Aug, [facility] [address] [id number] [address] [place] [phone] Aug, [facility] [address] [id number] [address] [place] [address], [place] [address] Aug, [facility] [address] [id number] [address] [place] [address] Aug, [facility] [address] [id number] [address] [place] [phone] Aug, [facility] [address] [id number] [address] [place] [phone] Jul, [facility] [address] [id number] [address] [place] [phone] Jul, [facility] [address] [id number] [address] [place] [phone] Jul, [facility] [address] [id number] [address] [place] [phone] Jul, [facility] [address] [id number] [address] [place] [phone] Jul, [facility] [address] [id number] [address] [place] [phone] Jun, [facility] [address] [id number] [address] [place] [id number] May, [facility] [address] [id number] [address] [place] [phone] Apr, [facility] [address] [id number] [address] [place] [phone] February, [facility] [address] [id number] [address] [place] [id number] Jan, [facility] [address] [id number] [address] [place] [id number] Jan, [facility] [address] [id number] [address] [place] [id number] Dec, [facility] [address] [id number] [address] [place] [phone] Dec, [facility] [address] [id number] [address] [place] [phone] Dec, [facility] [address] [id number] [address] [place] [phone] Nov, [facility] [address] [id number] [address] [place] [phone] Nov, [facility] [address] [id number] [address] [place] [id number] Nov, [facility] [address] [id number] [address] [place] [phone] Nov, IMMUNIZATIONS No Known Immunizations SOCIAL HISTORY Never Assessed REASON FOR VISIT Repository Medication PLAN OF CARE VITAL SIGNS MEDICATIONS Medication Instructions Dosage Frequency Start Date End Date Duration S tatus Celebrex 200 mg Orally Once a day 1 capsule with food 24h May, 17 Active Protonix 40 mg Orally Once a day- stop omeprazole 1 tablets 19 J an, 2016 Active Lisinopril 40 mg Orally Once [...] chronic neck and back pain Medical History HI x's 2 1996 and 2011 Medical History [...] Surgical History coronary angiography Dr Mane thakur [facility]- normal EF, LV function,-minimal RCA blockage <20% 1996 [facility], mild nonspecific bulbar duodenitis 1996 Surgical History carotid endarterectomy, right- [facility] 01/14 015 Surgical History Heart cath with [facility] 2013 Surgical History Colonoscopy- tubular adenoma , hyperplastic polyp- repeat Colonoscopy 12/2016 Hospitalization History heart attack 1996 Hospitalization History slurred speech, fever, left arm pain [facility] [place] February 2015 Hospitalization History Pancreatitis 12/2015
--- OUTSIDE RECORDS SUMMARY | 2020-04-06 07:03 | XMS REPORT ---
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 Name Role Phone TIFFANIE CAMPOS Unavailable PROBLEMS Type Condition ICD9-CM Code ZQV01-PV Code Onset Dates Condition S tatus SNOMED Code Problem Gastroesophageal reflux disease without esophagitis K21.9 Active 893067712 Problem Bilateral carotid artery disease I77.9 Active 131670946 Problem Claudication of both lower extremities I73.9 Active 296484339 Problem Mixed hyperlipidemia E78.2 Active 301706634 Problem Peripheral arterial disease I73.9 Ac tive 953736714 Problem Chronic obstructive pulmonary disease, unspecified COPD ty pe J44.9 Active 60183844 Problem PAD (peripheral artery disease) I73.9 Active 966858706 Problem Claudication I73.9 Active 0173317 6 Problem Non-rheumatic mitral regurgitation I34.0 Active 009195012 Problem Tobacco abuse Z72.0 Active 830556 05 Problem Benign essential hypertension I10 Active 6434499 Problem Hyperlipemia E78.5 Active 1563560 4 Problem Chronic bronchitis J42 Active 6 3651921 Problem Diverticulosis of intestine without bleeding, unspecified intestinal tract location K57.90 Active 05864652 Problem Abdominal bloating R14.0 Active 1 74038495 Problem Chronic pain G89.29 Active 1258167 1 Problem Fatty liver K76.0 Active 96680715 7 Problem CAD (coronary artery disease) I25.10 Active 45479007 Problem COPD (chronic obstructive pulmonary disease) wit h chronic bronchitis J44.9 Active 742141805 ALLERGIES No Information ENCOUNTERS Encounter Location Date Diagnosis [facility] [address] [id number] [place] [id number] Mar, Peripheral arterial disease I73.[address] [id number], [place] [id number] February, Chronic pain G89.29 ; Hyperlipemia E78.5 and Benign essential hypertension I10 [facility] [address] [id number], [place] [address] Jan, COPD (chronic obstructive pulmonary dise ase) with chronic bronchitis J44.9 [facility] [address] [address] [id number], [place] [id number] Jan, [facility] [address] [id number], [place] [id number] Jan, Peripheral arterial disease I73.9 ; Carlo gn essential hypertension I10 ; Bilateral carotid artery disease I77.9 ; Claudication of both lower extremities I73.9 ; Mixed hyperlipidemia E78.2 ; Tobacco use Z72.0 and Non- rheumatic mitral regurgitation I34.0 [facility] [address] [id number], [place] [id number] Jan, RUQ pain R10.11 ; Gastroesophageal reflu x disease without esophagitis K21.9 and Change in stool R19.5 [facility] [address] [id number], [place] [id number] Jan, [facility] [address] [id number], [place] [id number] Jan, Neck pain M54.2 ; Benign essential hyper tension I10 ; COPD (chronic obstructive pulmonary disease) with chronic bronchitis J44.9 and Chronic obstructive pulmonary disease, unspecified COPD type J44.9 [facility] [address] [id number], [place] [address] Jan, Chronic obstructive pulmonary disease, u nspecified COPD type J44.[address] [id number], [place] [address] Dec, [facility] [address] [id number], [place] [id number] Dec, [facility] [address] [address] [id number], [place] [address] Dec, COPD (chronic obstructive pulmonary dise ase) with chronic bronchitis J44.9 [facility] [address] [facility] [id number] [place] [address] Dec, [facility] [address] [facility] [id number] [address] [place] [address] Dec, [facility] [address] [id number], [place] [id number] Nov, [facility] [address] [id number], [place] [address] Nov, Benign essential hypertension I10 and CO PD (chronic obstructive pulmonary disease) with chronic bronchitis J44.9 [facility] [address] [id number], [place] [address] Nov, Hyperlipemia E78.5 ; Benign essential hy pertension I10 ; COPD (chronic obstructive pulmonary disease) with chronic bronchitis J44.9 ; Encounter for immunization Z23 ; Gastroesophageal reflux disease without esophagitis K21.9 and Chronic pain G89.29 [facility] [address] [place] [address] AVE [id number], [place] [id number] Oct, COPD (chronic obstructive pulmonary dise ase) with chronic bronchitis J44.9 and Chronic obstructive pulmonary disease, unspecified COPD type J44.9 [facility] [address] [id number], [place] [id number] Oct, COPD (chronic obstructive pulmonary dise ase) with chronic bronchitis J44.9 and Chronic obstructive pulmonary disease, unspecified COPD type J44.9 [facility] [address] [place] [address] AVE [id number], [place] [id number] Oct, COPD (chronic obstructive pulmonary dise ase) with chronic bronchitis J44.9 and Chronic obstructive pulmonary disease, unspecified COPD type J44.9 [facility] [address] [id number], [place] [id number] Oct, Benign essential hypertension I10 and Ne ck pain M54.2 [facility]ITAL[facility]resW[facility] [address] [id number], [place] [id number] Sep, PAD (peripheral artery disease) I73.9 ; Claudication of both lower extremities I73.9 ; Bilateral carotid artery disease I77.9 ; Benign essential hypertension I10 ; Hyperlipemia E78.5 and Dyspnea on exertion R06.09 [facility] [address] [id number], [place] [address] Aug, Benign essential hypertension I10 ; Vannessa roesophageal reflux disease without esophagitis K21.9 and Cervical radiculopathy M54.12 [facility]ITALSer[facility] [address] [id number], [place] [id number] Aug, Gastroesophageal reflux disease without esophagitis K21.9 [facility] [address] [id number], [place] [id number] Aug, COPD (chronic obstructive pulmonary dise ase) with chronic bronchitis J44.9 [facility] [address] [address] [id number], [place] [id number] Jul, [facility] [address] [id number], [place] [address] Jul, Benign essential hypertension I10 [facility] [address] [id number], [place] [id number] Jul, [facility] [address] [id number], [place] [address]23544[address] Jul, COPD (chronic obstructive pulmonary dise ase) with chronic bronchitis J44.9 [facility] [address] [id number], [place] [address]89[address] Jul, Neck pain M54.2 [facility] [address] [address] [id number], [place] [address]36[address] Jun, Claudication of both lower extremities I 73.9 ; PAD (peripheral artery disease) I73.9 ; Bilateral carotid artery disease I77.9 ; CAD (coronary artery disease) I25.10 ; Tobacco abuse Z72.0 ; Benign essential hypertension I10 ; Hyperlipemia E78.5 and Non-rheumatic mitral valve stenosis I34.2 [facility]ITAL[facility] [address] [id number], [place] [id number] Jun, Chronic obstructive pulmonary disease, u nspecified COPD type J44.[address] [facility] [address] [id number] [place] [address] May, [facility] [address] [id number] [place] [address] May, Chronic obstructive pulmonary disease, u nspecified COPD type J44.[address] [facility] [address] [id number] [place] [address] May, Neck pain M54.2 ; Chronic obstructive pu lmonary disease, unspecified COPD type J44.9 and Cervical radiculopathy M54.[address] [facility] [address] [id number] [place] [id number] May, [facility] [address] [id number], [place] [address] Apr, [facility] [address] [id number], [place] 811564994 Apr, Gastroesophageal reflux disease without esophagitis K21.9 [facility] [address] [id number], [place] [id number] Apr, COPD (chronic obstructive pulmonary dise ase) with chronic bronchitis J44.9 [facility] [address] [id number], [place] [id number] Apr, [facility] [address] [id number], [place] [id number] Apr, [facility] [address] [id number], [place] 538353553 Apr, COPD (chronic obstructive pulmonary dise ase) with chronic bronchitis J44.9 ; Benign essential hypertension I10 ; Tobacco abuse counseling Z71.6 and Hyperlipemia E78.[address] [facility] [address] [id number] [place] [id number] February, COPD (chronic obstructive pulmonary dise ase) with chronic bronchitis J44.[address] [facility] [address] [id number] [place] [address] Jan, [facility] [address] [id number] [place] [id number] Jan, COPD (chronic obstructive pulmonary dise ase) with chronic bronchitis J44.[address] [facility] [address] [id number] [place] [address] Oct, COPD (chronic obstructive pulmonary dise ase) with chronic bronchitis J44.[address] [facility] [address] [id number] [place] [address] Oct, Winter itch L29.[address] [id number], [place] 278000599 Oct, COPD (chronic obstructive pulmonary dise ase) with chronic bronchitis J44.9 ; Benign essential hypertension I10 ; Tobacco abuse Z72.0 and Gastroesophageal reflux disease without esophagitis K21.9 [facility] [address] [id number], [place] [id number] Sep, Benign essential hypertension I10 [facility] [address] [id number], [place] 889176992 Aug, [facility] [address] [id number], [place] [id number] Jul, [facility] [address] [id number], [place] [id number] Apr, [facility] [address] [id number], [place] 877022671 Apr, Abdominal bloating R14.0 ; Fatty liver K 76.0 ; Diverticulosis of intestine without bleeding, unspecified intestinal tract location K57.90 ; Chronic obstructive pulmonary disease, unspecified COPD type J44.9 and Benign essential hypertension I10 [facility] [address] [id number], [place] 812845027 Apr, Mild early onset dysthymic disorder, in partial remission, with melancholic features, 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 [facility] [address] [id number], [place] 098082162 Mar, Abdominal muscle strain, initial encount er S39.011A [facility] [address] [id number], [place] 549709818 Jan, Pancreatitis K85.9 ; Abdominal bloating R14.0 ; Chronic bronchitis J42 and Chronic pain G89.29 [facility] [address] [id number], [place] [id number] Nov, [facility] [address] [id number], [place] [id number] Nov, [facility] [address] [facility] [address] [id number], [place] 7556325[address] Nov, Chronic bronchitis J42 ; Tobacco abuse Z 72.0 and Tobacco abuse counseling Z71.6 [facility] [address] [id number], [place] 706397326 Oct, [facility] [address] [id number], [place] [id number] Oct, Chronic bronchitis J42 ; Tobacco abuse Z 72.0 and Benign essential hypertension I10 [facility]ITALInksharesW[facility] [address] [place] [address] AVE [id number], [place] 000107331 Oct, Chronic bronchitis J42 ; Tobacco abuse Z 72.0 ; Tobacco abuse counseling Z71.6 ; Benign essential hypertension I10 and Hyperlipemia E78.5 [facility] [address] [place] [id number] [address] [place] [address] Sep, [facility]ITAL[facility]resW[facility] [address] [facility] [address] [id number], [place] [id number] Jul, [facility] [address] [id number] [address] [place] [address] Jul, Essential (primary) hyperten aida I10 [facility] [address] [facility] [id number] [address] [place] [address] Jul, [facility] [address] [id number], [place] [id number] Jul, [facility] [address] [id number], [place] [id number] Jun, Benign essential hypertension 401.1 ; Ge neralized edema 782.3 ; Chronic pain 338.29 and Hyperlipemia 272.4 [facility] [address] [id number], [place] [id number] May, Upper respiratory infection 465.9 and Co ugh 786.[address] [id number], [place] 178918441 Mar, Upper respiratory infection 465.9 ; Toba patient accounts coordinator abuse 305.1 and Cough 786.2 [facility] [address] [facility] [address] [id number], [place] [id number] February, [facility] [id number] [facility] [address] [id number], [place] 732737256 February, Status post bilateral carotid endarterec vito V45.89 ; CAD (coronary artery disease) 414.00 ; Benign essential hypertension 401.1 ; Hyperlipemia 272.4 ; Tobacco abuse 305.1 ; Tobacco abuse counseling V65.42 and Chronic bronchitis 491.9 [facility] [address] [id number] [address] [place] [address] Jan, [facility] [address] [id number] [address] [place] [address] Jan, [facility] [address] [id number] [address] [place] [address] Dec, [facility] [address] [id number] [address] [place] [address] Dec, [facility] [address] [id number] [address] [place] [address] Nov, [facility] [address] [id number] [address] [place] [address] Nov, [facility] [address] [id number] [address] [place] [address], [place] [id number] 19 Nov, 2014 [facility] [address] [id number] [address] [place] [address], [place] [address] Nov, 2014 [facility] [address] [id number] [address] [place] [address], [place] [address] Nov, 2014 [facility] [address] [id number] [address] [place] [address], [place] [address] Nov, 2014 [facility] [address] [id number] [address] [place] [address], [place] [address] Nov, 2014 [facility] [address] [id number] [address] [place] [address], [place] [address] Nov, [facility] [address] [id number] [address] [place] [address], [place] [address] Nov, [facility] [address] [id number] [address] [place] [address], [place] [address] Oct, [facility] [address] [id number] [address] [place] [address], [place] [address] Oct, [facility] [address] [id number] [address] [place] [address], [place] [address] Oct, [facility] [address] [id number] [address] [place] [address], [place] [address] Oct, [facility] [address] [id number] [address] [place] [address], [place] [address] Oct, [facility] [address] [id number] [address] [place] [address], [place] [address] Oct, [facility] [address] [id number] [address] [place] [address], [place] [address] Oct, [facility] [address] [id number] [address] [place] [address], [place] [address] Oct, [facility] [address] [id number] [address] [place] [address], [place] [address] Oct, [facility] [address] [id number] [address] [place] [address], [place] [address] Oct, [facility] [address] [id number] [place] [id number] Oct, [facility] [address] [id number] [address] [place] [address], [place] [address] Oct, [facility] [address] [id number] [address] [place] [address], [place] [address] Sep, [facility] [address] [id number] [address] [place] [address], [place] [address] Sep, [facility] [address] [id number] [address] [place] [address], [place] [address] Aug, [facility] [address] [id number] [address] [place] [address], [place] [address] Aug, [facility] [address] [id number] [address] [place] [address], [place] [address] Aug, [facility] [address] [id number] [address] [place] [address], [place] [address] Aug, [facility] [address] [id number] [address] [place] [address], [place] [address] Jul, [facility] [address] [id number] [address] [place] [address], [place] [address] Jul, [facility] [address] [id number] [address] [place] [address] Jun, [facility] [address] [id number] [address] [place] [address], [place] [address] Jun, [facility] [address] [id number] [address] [place] [address], [place] [address] May, [facility] [address] [id number] [address] [place] [address], [place] [address] May, [facility] [address] [id number] [address] [place] [address], [place] [address] May, [facility] [address] [id number] [address] [place] [address], [place] [address] May, [facility] [address] [id number] [address] [place] [address], [place] [address] Jan, [facility] [address] [id number] [address] [place] [address], [place] [address] Jan, [facility] [address] [id number] [address] [place] [address], [place] [address] Nov, [facility] [address] [id number] [address] [place] [address], [place] [address] Nov, [facility] [address] [id number] [address] [place] [address], [place] [address] Nov, [facility] [address] [id number] [address] [place] [address], [place] [address] Nov, [facility] [address] [id number] [address] [place] [address], [place] [address] Nov, [facility] [address] [id number] [address] [place] [address], [place] [address] Nov, [facility] [address] [id number] [address] [place] [address], [place] [address] Nov, [facility] [address] [id number] [address] [place] [address], [place] [address] Nov, [facility] [address] [id number] [address] [place] [address], [place] [address] Nov, [facility] [address] [id number] [address] [place] [address], [place] [address] Nov, [facility] [address] [id number] [address] [place] [address], [place] [address] Oct, [facility] [address] [id number] [address] [place] [address], [place] [address] Oct, [facility] [address] [id number] [address] [place] [address], [place] [address] Oct, [facility] [address] [id number] [address] [place] [address], [place] [address] Oct, [facility] [address] [id number] [address] [place] [address], [place] [address] Sep, [facility] [address] [id number] [address] [place] [address] Sep, [facility] [address] [id number] [address] [place] [address], [place] [address] Aug, [facility] [address] [id number] [address] [place] [address] Aug, [facility] [address] [id number] [address] [place] [address], [place] [address] Aug, [facility] [address] [id number] [address] [place] [address] Aug, [facility] [address] [id number] [address] [place] [address], [place] [address] Aug, [facility] [address] [id number] [address] [place] [address] Aug, [facility] [address] [id number] [address] [place] [address] Aug, [facility] [address] [id number] [address] [place] [address] Aug, [facility] [address] [id number] [address] [place] [address], [place] [address] Jul, [facility] [address] [id number] [address] [place] [address] Jul, [facility] [address] [id number] [address] [place] [address] Jul, [facility] [address] [id number] [address] [place] [address] Jul, [facility] [address] [id number] [address] [place] [address] Jul, [facility] [address] [id number] [address] [place] [address] Jun, [facility] [address] [id number] [address] [place] [address] May, [facility] [address] [id number] [address] [place] [address] Apr, [facility] [address] [id number] [address] [place] [phone] February, [facility] [address] [id number] [address] [place] [id number] Jan, [facility] [address] [id number] [address] [place] [phone] Jan, [facility] [address] [id number] [address] [place] [id number] Dec, [facility] [address] [id number] [address] [place] [id number] Dec, [facility] [address] [id number] [address] [place] [phone] Dec, [facility] [address] [id number] [address] [place] [id number] Nov, [facility] [address] [id number] [address] [place] [phone] Nov, [facility] [address] [id number] [address] [place] [id number] Nov, [facility] [address] [id number] [address] [place] [phone] Nov, IMMUNIZATIONS No Known Immunizations SOCIAL HISTORY [...] 02/[address] [facility], [facility] function,-minimal RCA blockage <20% 1996 [facility], mild nonspecific bulbar duodenitis 1996 Surgical History carotid endarterectomy, right- [facility] 01/14 015 Surgical History Heart cath with [facility] 2013 Surgical History Colonoscopy- tubular adenoma , hyperplastic polyp- repeat Colonoscopy 12/2016 Hospitalization History heart attack 1996 Hospitalization History slurred speech, fever, left arm pain Sharifa Shah February 2015 Hospitalization History Pancreatitis 12/2015
--- OUTSIDE RECORDS SUMMARY | 2020-04-06 07:04 | XMS REPORT ---
Author Author Jermaine CAMPOS Organization [facility] Address [address] [place] [address] Care Team Providers Care Command And Control Name Role Phone TIFFANIE CAMPOS Unavailable PROBLEMS Type Condition ICD9-CM Code TFS07-ZR Code Onset Dates Condition S tatus SNOMED Code Problem Gastroesophageal reflux disease without esophagitis K21.9 Active 087788750 Problem Bilateral carotid artery disease I77.9 Active 077638889 Problem Claudication of both lower extremities I73.9 Active 153484741 Problem Mixed hyperlipidemia E78.2 Active 584159226 Problem Peripheral arterial disease I73.9 Ac tive 608054473 Problem Chronic obstructive pulmonary disease, unspecified COPD ty pe J44.9 Active 30967308 Problem PAD (peripheral artery disease) I73.9 Active 327838242 Problem Claudication I73.9 Active 8216318 6 Problem Non-rheumatic mitral regurgitation I34.0 Active 636034701 Problem Tobacco abuse Z72.0 Active 553759 05 Problem Benign essential hypertension I10 Active 4878991 Problem Hyperlipemia E78.5 Active 7980035 4 Problem Chronic bronchitis J42 Active 6 6801552 Problem Diverticulosis of intestine without bleeding, unspecified intestinal tract location K57.90 Active 06789741 Problem Abdominal bloating R14.0 Active 1 31837868 Problem Chronic pain G89.29 Active 2339066 1 Problem Fatty liver K76.0 Active 08027590 7 Problem CAD (coronary artery disease) I25.10 Active 38300009 Problem COPD (chronic obstructive pulmonary disease) wit h chronic bronchitis J44.9 Active 550984824 ALLERGIES No Information ENCOUNTERS Encounter Location Date Diagnosis [facility] [address] [id number] [place] [id number] Jan, COPD (chronic obstructive pulmonary dise ase) with chronic bronchitis J44.9 [facility] [address] [id number][place] [address] Jan, [facility] [address] [id number][place] [id number] Jan, Peripheral arterial disease I73.9 ; Carlo gn essential hypertension I10 ; Bilateral carotid artery disease I77.9 ; Claudication of both lower extremities I73.9 ; Mixed hyperlipidemia E78.2 ; Tobacco use Z72.0 and Non- rheumatic mitral regurgitation I34.0 [facility] [address] [id number][place] [address] Jan, RUQ pain R10.11 ; Gastroesophageal reflu x disease without esophagitis K21.9 and Change in stool R19.5 [facility] [address] [id number], [place] [address] Jan, [facility] [address] [id number][place] [id number] Jan, Neck pain M54.2 ; Benign essential hyper tension I10 ; COPD (chronic obstructive pulmonary disease) with chronic bronchitis J44.9 and Chronic obstructive pulmonary disease, unspecified COPD type J44.[address] [facility] [address] [id number], [place] [address] Jan, Chronic obstructive pulmonary disease, u nspecified COPD type J44.[address] [facility] [address] [id number], [place] [address] Dec, [facility] [address] [id number], [place] [id number] Dec, [facility] [address] [id number], [place] [address] Dec, COPD (chronic obstructive pulmonary dise ase) with chronic bronchitis J44.9 [facility] [address] [facility] [id number] [address] [place] [address] Dec, [facility] [address] [facility] [id number] [address] [place] [address] Dec, [facility] [address] [id number], [place] [id number] Nov, [facility] [employer] [place] [address] AVE [id number], [place] [id number] Nov, Benign essential hypertension I10 and CO PD (chronic obstructive pulmonary disease) with chronic bronchitis J44.[address] [facility] [employer] [address] [id number], [place] [id number] Nov, Hyperlipemia E78.5 ; Benign essential hy pertension I10 ; COPD (chronic obstructive pulmonary disease) with chronic bronchitis J44.9 ; Encounter for immunization Z23 ; Gastroesophageal reflux disease without esophagitis K21.9 and Chronic pain G89.29 [facility] [address] [place] [address] AVE [id number], [place] [id number] Oct, COPD (chronic obstructive pulmonary dise ase) with chronic bronchitis J44.9 and Chronic obstructive pulmonary disease, unspecified COPD type J44.[address] [facility] [employer] [place] [address] AVE [id number], [place] [id number] Oct, COPD (chronic obstructive pulmonary dise ase) with chronic bronchitis J44.9 and Chronic obstructive pulmonary disease, unspecified COPD type J44.[address] [facility] [employer] [place] [address] AVE [id number], [place] [id number] Oct, COPD (chronic obstructive pulmonary dise ase) with chronic bronchitis J44.9 and Chronic obstructive pulmonary disease, unspecified COPD type J44.[address] [facility] [employer] [place] [address] AVE [id number], [place] [id number] Oct, Benign essential hypertension I10 and Ne ck pain M54.2 [facility] [employer] [address] [id number], [place] [id number] Sep, PAD (peripheral artery disease) I73.9 ; Claudication of both lower extremities I73.9 ; Bilateral carotid artery disease I77.9 ; Benign essential hypertension I10 ; Hyperlipemia E78.5 and Dyspnea on exertion R06.09 [facility] [address] [id number], [place] [id number] Aug, Benign essential hypertension I10 ; Vannessa roesophageal reflux disease without esophagitis K21.9 and Cervical radiculopathy M54.12 [facility] [address] [id number] [place] [id number] Aug, Gastroesophageal reflux disease without esophagitis K21.9 [facility] [address] [id number] [place] [id number] Aug, COPD (chronic obstructive pulmonary dise ase) with chronic bronchitis J44.9 [facility] [address] [id number] [place] [id number] Jul, [facility] [address] [id number] [place] [address] Jul, Benign essential hypertension I10 [facility] [address] [id number], [place] [id number] Jul, [facility] [address] [id number], [place] [address] Jul, COPD (chronic obstructive pulmonary dise ase) with chronic bronchitis J44.9 [facility] [address] [id number], [place] [address] Jul, Neck pain M54.2 [facility] [address] [id number], [place] [address] Jun, Claudication of both lower extremities I 73.9 ; PAD (peripheral artery disease) I73.9 ; Bilateral carotid artery disease I77.9 ; CAD (coronary artery disease) I25.10 ; Tobacco abuse Z72.0 ; Benign essential hypertension I10 ; Hyperlipemia E78.5 and Non-rheumatic mitral valve stenosis I34.2 [facility] [address] [id number] [place] [address] Jun, Chronic obstructive pulmonary disease, u nspecified COPD type J44.9 [facility] [address] [id number] [place] [address] May, [facility] [address] [id number], [place] [address] May, Chronic obstructive pulmonary disease, u nspecified COPD type J44.9 [facility] [address] [id number] [place] [id number] May, Neck pain M54.2 ; Chronic obstructive pu lmonary disease, unspecified COPD type J44.9 and Cervical radiculopathy M54.[address] [facility] [address] [id number] [place] [address] May, [facility] [address] [id number] [place] [id number] Apr, [facility] [address] [id number] [place] [id number] Apr, Gastroesophageal reflux disease without esophagitis K21.[address] [facility] [address] [id number] [place] [id number] Apr, COPD (chronic obstructive pulmonary dise ase) with chronic bronchitis J44.[address] [facility] [address] [id number] [place] [id number] Apr, [facility] [address] [id number] [place] [id number] Apr, [facility] [address] [id number], [place] [id number] Apr, COPD (chronic obstructive pulmonary dise ase) with chronic bronchitis J44.9 ; Benign essential hypertension I10 ; Tobacco abuse counseling Z71.6 and Hyperlipemia E78.[address] [facility] [address] [id number], [place] [address] February, COPD (chronic obstructive pulmonary dise ase) with chronic bronchitis J44.[address] [facility] [address] [id number] [place] [id number] Jan, [facility] [address] [id number] [place] [address] Jan, COPD (chronic obstructive pulmonary dise ase) with chronic bronchitis J44.[address] [facility] [address] [id number], [place] [id number] Oct, COPD (chronic obstructive pulmonary dise ase) with chronic bronchitis J44.9 [facility] [address] [id number], [place] [address] Oct, Winter itch L29.[address] [address] [id number], [place] [address] Oct, COPD (chronic obstructive pulmonary dise ase) with chronic bronchitis J44.9 ; Benign essential hypertension I10 ; Tobacco abuse Z72.0 and Gastroesophageal reflux disease without esophagitis K21.9 [facility] [employer] [address] [id number], [place] [address] Sep, Benign essential hypertension I10 [employer] [id number], [place] [id number] Aug, [facility] [employer] [address] [id number], [place] [id number] Jul, [facility] [employer] [address] [id number], [place] [address] Apr, [facility] [employer] [address] [id number], [place] [address]65[address] Apr, Abdominal bloating R14.0 ; Fatty liver K 76.0 ; Diverticulosis of intestine without bleeding, unspecified intestinal tract location K57.90 ; Chronic obstructive pulmonary disease, unspecified COPD type J44.9 and Benign essential hypertension I10 [address] [employer] [address] [id number], [place] [address] Apr, Mild early onset dysthymic disorder, in partial remission, with melancholic features, 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 [employer] [address] [id number], [place] [id number] Mar, Abdominal muscle strain, initial encount er S39.011A [employer] A[address] [id number], [place] [address]959[address] Jan, Pancreatitis K85.9 ; Abdominal bloating R14.0 ; Chronic bronchitis J42 and Chronic pain G89.29 [facility] [address] [id number], [place] [address] Nov, [facility] [address] [id number], [place] 80059[address] Nov, [facility] [address] [id number], [place] [address]87[address] Nov, Chronic bronchitis J42 ; Tobacco abuse Z 72.0 and Tobacco abuse counseling Z71.[address] [facility] [address] [id number], [place] [id number] Oct, [facility] [address] [id number], [place] [address]97672916 Oct, Chronic bronchitis J42 ; Tobacco abuse Z 72.0 and Benign essential hypertension I10 [facility] [address] [id number], [place] 934211378 Oct, Chronic bronchitis J42 ; Tobacco abuse Z 72.0 ; Tobacco abuse counseling Z71.6 ; Benign essential hypertension I10 and Hyperlipemia E78.5 [facility] [address] [facility] [id number] [address] [place] [address] Sep, [facility] [address] [id number], [place] 775168710 Jul, [facility] [address] [place] [place] [id number] [address] [place] [address] Jul, Essential (primary) hyperten aida I10 [facility] [address] [facility] [id number] [address] [place] [address] Jul, [facility] [address] [id number], [place] [id number] Jul, [facility] [address] [id number], [place] [id number] Jun, Benign essential hypertension 401.1 ; Ge neralized edema 782.3 ; Chronic pain 338.29 and Hyperlipemia 272.4 [facility] [address] [id number], [place] [id number] May, Upper respiratory infection 465.9 and Co ugh 786.[address] 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 W[facility] [place] [address] AVE [id number], [place] [id number] February, [facility] [address] [id number], [place] 623608942 February, Status post bilateral carotid endarterec vito V45.89 ; CAD (coronary artery disease) 414.00 ; Benign essential hypertension 401.1 ; Hyperlipemia 272.4 ; Tobacco abuse 305.1 ; Tobacco abuse counseling V65.42 and Chronic bronchitis 491.9 [facility] [address] [place] [address] Jan, [facility] [address] [id number] [address] [place] [address] Jan, [facility] [address] [id number] [address] [place] [address] Dec, [facility] [address] [id number] [address] [place] [address] Dec, [facility] [address] [place] [address] Nov, [facility] [address] [id number] [address] [place] [address] Nov, [facility] [address] [id number] [address] [place] [address] Nov, [facility] [address] [id number] [address] [place] [address] Nov, [facility] [address] [id number] [address] [place] [address] Nov, [facility] [address] [id number] [address] [place] [address], [place] [address] Nov, [facility] [address] [id number] [address] [place] [address], [place] [address] Nov, [facility] [address] [id number] [address] [place] [address], [place] [address] Nov, [facility] [address] [id number] [address] [place] [address], [place] [address] Nov, [facility] [address] [id number] [address] [place] [address], [place] [address] Oct, [facility] [address] [id number] [address] [place] [address], [place] [address] Oct, [facility] [address] [id number] [address] [place] [address], [place] [address] Oct, [facility] [address] [id number] [address] [place] [address], [place] [address] Oct, [facility] [address] [id number] [address] [place] [address], [place] [address] Oct, [facility] [address] [id number] [address] [place] [address] Oct, [facility] [address] [id number] [address] [place] [address] Oct, [facility] [address] [id number] [address] [place] [address] Oct, [facility] [address] [id number] [address] [place] [address], [place] [address] Oct, [facility] [address] [id number] [address] [place] [address] Oct, [facility] [address] [id number] [place] [id number] Oct, [facility] [address] [id number] [address] [place] [address] Oct, [facility] [address] [id number] [address] [place] [address], [place] [address] Sep, [facility] [address] [id number] [address] [place] [address], [place] [address] Sep, [facility] [address] [id number] [address] [place] [address], [place] [address] Aug, [facility] [address] [id number] [address] [place] [address], [place] [address] Aug, [facility] [address] [id number] [address] [place] [address], [place] [address] Aug, [facility] [address] [id number] [address] [place] [address], [place] [address] Aug, [facility] [address] [id number] [address] [place] [address], [place] [address] Jul, [facility] [address] [id number] [address] [place] [address], [place] [address] Jul, [facility] [address] [id number] [address] [place] [address], [place] [address] Jun, [facility] [address] [id number] [address] [place] [address], [place] [address] Jun, [facility] [address] [id number] [address] [place] [address], [place] [address] May, [facility] [address] [id number] [address] [place] [address], [place] [address] May, [facility] [address] [id number] [address] [place] [address], [place] [address] May, [facility] [address] [id number] [address] [place] [address], [place] [address] May, [facility] [address] [id number] [address] [place] [address], [place] [address] Jan, [facility] [address] [id number] [address] [place] [address], [place] [address] Jan, [facility] [address] [id number] [address] [place] [address], [place] [address] Nov, [facility] [address] [id number] [address] [place] [address], [place] [address] Nov, [facility] [address] [id number] [address] [place] [address], [place] [address] Nov, [facility] [address] [id number] [address] [place] [address], [place] [address] Nov, [facility] [address] [id number] [address] [place] [address], [place] [address] Nov, [facility] [address] [id number] [address] [place] [address], [place] [address] Nov, [facility] [address] [id number] [address] [place] [address], [place] [address] Nov, [facility] [address] [id number] [address] [place] [address], [place] [address] Nov, [facility] [address] [id number] [address] [place] [address], [place] [address] Nov, [facility] [address] [id number] [address] [place] [address], [place] [address] Nov, [facility] [address] [id number] [address] [place] [address], [place] [address] Oct, [facility] [address] [id number] [address] [place] [address], [place] [address] Oct, [facility] [address] [id number] [address] [place] [address], [place] [address] Oct, [facility] [address] [id number] [address] [place] [address], [place] [address] Oct, [facility] [address] [id number] [address] [place] [address] Sep, [facility] [address] [id number] [address] [place] [address], [place] [address] Sep, [facility] [address] [id number] [address] [place] [address] Aug, [facility] [address] [id number] [address] [place] [address] Aug, [facility] [address] [id number] [address] [place] [address] Aug, [facility] [address] [id number] [address] [place] [address] Aug, [facility] [address] [id number] [address] [place] [address] Aug, [facility] [address] [id number] [address] [place] [address] Aug, [facility] [address] [id number] [address] [place] [address] Aug, [facility] [address] [id number] [address] [place] [address] Aug, [facility] [address] [id number] [address] [place] [address] Jul, [facility] [address] [id number] [address] [place] [address] Jul, [facility] [address] [id number] [address] [place] [address] Jul, [facility] [address] [id number] [address] [place] [address] Jul, [facility] [address] [id number] [address] [place] [address] Jul, [facility] [address] [id number] [address] [place] [address] Jun, [facility] [address] [id number] [address] [place] [address] May, [facility] [address] [id number] [address] [place] [address] Apr, [facility] [address] [id number] [address] [place] [address] February, [facility] [address] [id number] [address] [place] [phone] Jan, [facility] [address] [id number] [address] [place] [phone] Jan, [facility] [address] [id number] [address] [place] [id number] Dec, [facility] [address] [id number] [address] [place] [phone] Dec, [facility] [address] [id number] [address] [place] [phone] Dec, [facility] [address] [id number] [address] [place] [id number] Nov, [facility] [address] [id number] [address] [place] [phone] Nov, [facility] [address] [id number] [address] [place] [phone] Nov, [facility] [address] [id number] [address] [place] [phone] Nov, IMMUNIZATIONS No Known Immunizations SOCIAL HISTORY Never Assessed REASON FOR VISIT PALS Flovent Received PLAN OF CARE VITAL SIGNS MEDICATIONS [...] Surgical History coronary angiography Dr Mane thakur [facility] [place]- normal EF, LV function,-minimal RCA blockage <20% 1996 [facility], mild nonspecific bulbar duodenitis 1996 Surgical History carotid endarterectomy, right- [facility] 01/14 015 Surgical History Heart cath with [facility] 2013 Surgical History Colonoscopy- tubular adenoma , hyperplastic polyp- repeat Colonoscopy 12/2016 Hospitalization History heart attack 1996 Hospitalization History slurred speech, fever, left arm pain [facility] [place] February 2015 Hospitalization History Pancreatitis 12/2015
--- OUTSIDE RECORDS SUMMARY | 2020-04-06 07:04 | XMS REPORT ---
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 Name Role Phone TIFFANIE CAMPOS Unavailable PROBLEMS Type Condition ICD9-CM Code VSK81-RD Code Onset Dates Condition S tatus SNOMED Code Problem Gastroesophageal reflux disease without esophagitis K21.9 Active 522173940 Problem Bilateral carotid artery disease I77.9 Active 463054696 Problem Claudication of both lower extremities I73.9 Active 331438529 Problem Mixed hyperlipidemia E78.2 Active 856114380 Problem Peripheral arterial disease I73.9 Ac tive 315776848 Problem Chronic obstructive pulmonary disease, unspecified COPD ty pe J44.9 Active 83925115 Problem PAD (peripheral artery disease) I73.9 Active 571962047 Problem Claudication I73.9 Active 6102616 6 Problem Non-rheumatic mitral regurgitation I34.0 Active 648955269 Problem Tobacco abuse Z72.0 Active 478821 05 Problem Benign essential hypertension I10 Active 1437334 Problem Hyperlipemia E78.5 Active 5189123 4 Problem Chronic bronchitis J42 Active 6 7077213 Problem Diverticulosis of intestine without bleeding, unspecified intestinal tract location K57.90 Active 23671591 Problem Abdominal bloating R14.0 Active 1 35738096 Problem Chronic pain G89.29 Active 7958364 1 Problem Fatty liver K76.0 Active 32245409 7 Problem CAD (coronary artery disease) I25.10 Active 71019787 Problem COPD (chronic obstructive pulmonary disease) wit h chronic bronchitis J44.9 Active 275636869 ALLERGIES No Information ENCOUNTERS Encounter Location Date Diagnosis [facility] [address] [id number] [place] [id number] Jan, COPD (chronic obstructive pulmonary dise ase) with chronic bronchitis J44.9 [facility] [address] [id number][place] [id number] Jan, [facility] [address] [id number], [place] [id number] Jan, Peripheral arterial disease I73.9 ; Carlo gn essential hypertension I10 ; Bilateral carotid artery disease I77.9 ; Claudication of both lower extremities I73.9 ; Mixed hyperlipidemia E78.2 ; Tobacco use Z72.0 and Non- rheumatic mitral regurgitation I34.0 [facility] [address] [id number][place] [id number] Jan, RUQ pain R10.11 ; Gastroesophageal reflu x disease without esophagitis K21.9 and Change in stool R19.5 [facility] [address] [id number], [place] [id number] Jan, [facility] [address] [id number], [place] [address]74[address] Jan, Neck pain M54.2 ; Benign essential hyper tension I10 ; COPD (chronic obstructive pulmonary disease) with chronic bronchitis J44.9 and Chronic obstructive pulmonary disease, unspecified COPD type J44.9 [facility] [address] [id number], [place] [id number] Jan, Chronic obstructive pulmonary disease, u nspecified COPD type J44.9 [facility] [address] [id number], [place] [id number] Dec, [facility] [address] [id number], [place] [address] Dec, [facility] [address] [id number], [place] [id number] Dec, COPD (chronic obstructive pulmonary dise ase) with chronic bronchitis J44.9 [facility] [address] [facility] [id number] [address] [place] [address] Dec, [facility] [address] [facility] [id number] [address] [place] [address] Dec, [facility] [address] [id number], [place] [id number] Nov, [facility] [address] [place] [address] AVE [id number], [place] [id number] Nov, Benign essential hypertension I10 and CO PD (chronic obstructive pulmonary disease) with chronic bronchitis J44.9 [facility] [address] [id number], [place] [id number] Nov, Hyperlipemia E78.5 ; Benign essential hy pertension I10 ; COPD (chronic obstructive pulmonary disease) with chronic bronchitis J44.9 ; Encounter for immunization Z23 ; Gastroesophageal reflux disease without esophagitis K21.9 and Chronic pain G89.[address] [facility] [address] [place] [address] AVE [id number], [place] [id number] Oct, COPD (chronic obstructive pulmonary dise ase) with chronic bronchitis J44.9 and Chronic obstructive pulmonary disease, unspecified COPD type J44.9 [facility] [address] [place] [address] AVE [id number], [place] [id number] Oct, COPD (chronic obstructive pulmonary dise ase) with chronic bronchitis J44.9 and Chronic obstructive pulmonary disease, unspecified COPD type J44.9 [facility] [address] [place] [address] AVE [id number], [place] [id number] Oct, COPD (chronic obstructive pulmonary dise ase) with chronic bronchitis J44.9 and Chronic obstructive pulmonary disease, unspecified COPD type J44.9 [facility] [address] [place] [address] AVE [id number], [place] [id number] Oct, Benign essential hypertension I10 and Ne ck pain M54.[address] [facility] [id number], [place] [id number] Sep, PAD (peripheral artery disease) I73.9 ; Claudication of both lower extremities I73.9 ; Bilateral carotid artery disease I77.9 ; Benign essential hypertension I10 ; Hyperlipemia E78.5 and Dyspnea on exertion R06.[address] [facility] [id number], [place] [id number] Aug, Benign essential hypertension I10 ; Vannessa roesophageal reflux disease without esophagitis K21.9 and Cervical radiculopathy M54.12 [facility] [address] [id number] [place] [id number] Aug, Gastroesophageal reflux disease without esophagitis K21.9 [facility] [address] [id number] [place] [id number] Aug, COPD (chronic obstructive pulmonary dise ase) with chronic bronchitis J44.9 [facility] [address] [id number] [place] [address] Jul, [facility] [address] [id number] [place] [id number] Jul, Benign essential hypertension I10 [facility] [address] [id number], [place] 8897534[address] Jul, [facility] [address] [id number], [place] [id number] Jul, COPD (chronic obstructive pulmonary dise ase) with chronic bronchitis J44.9 [facility] [address] [id number], [place] [id number] Jul, Neck pain M54.2 [facility] [address] [id number], [place] [id number] Jun, Claudication of both lower extremities I 73.9 ; PAD (peripheral artery disease) I73.9 ; Bilateral carotid artery disease I77.9 ; CAD (coronary artery disease) I25.10 ; Tobacco abuse Z72.0 ; Benign essential hypertension I10 ; Hyperlipemia E78.5 and Non-rheumatic mitral valve stenosis I34.2 [facility] [address] [id number] [place] [id number] Jun, Chronic obstructive pulmonary disease, u nspecified COPD type J44.9 [facility] [address] [id number] [place] [id number] May, [facility] [address] [id number], [place] 9371969[address] May, Chronic obstructive pulmonary disease, u nspecified COPD type J44.9 [facility] [address] [id number] [place] [id number] May, Neck pain M54.2 ; Chronic obstructive pu lmonary disease, unspecified COPD type J44.9 and Cervical radiculopathy M54.[address] [facility] [address] [id number] [place] [id number] May, [facility] [address] [id number] [place] [id number] Apr, [facility] [address] [id number] [place] [id number] Apr, Gastroesophageal reflux disease without esophagitis K21.[address] [facility] [address] [id number] [place] [id number] Apr, COPD (chronic obstructive pulmonary dise ase) with chronic bronchitis J44.[address] [facility] [address] [id number] [place] [id number] Apr, [facility] [address] [id number] [place] [id number] Apr, [facility] [address] [id number], [place] [id number] Apr, COPD (chronic obstructive pulmonary dise ase) with chronic bronchitis J44.9 ; Benign essential hypertension I10 ; Tobacco abuse counseling Z71.6 and Hyperlipemia E78.[address] [facility] [address] [id number], [place] [id number] February, COPD (chronic obstructive pulmonary dise ase) with chronic bronchitis J44.[address] [facility] [address] [id number] [place] [id number] Jan, [facility] [address] [id number] [place] [address] Jan, COPD (chronic obstructive pulmonary dise ase) with chronic bronchitis J44.[address] [facility] [address] [id number], [place] [id number] Oct, COPD (chronic obstructive pulmonary dise ase) with chronic bronchitis J44.9 [facility] [address] [id number], [place] 308575277 Oct, Winter itch L29.[address] [facility] [address] [id number], [place] [id number] Oct, COPD (chronic obstructive pulmonary dise ase) with chronic bronchitis J44.9 ; Benign essential hypertension I10 ; Tobacco abuse Z72.0 and Gastroesophageal reflux disease without esophagitis K21.9 [facility] [address] [id number], [place] [id number] Sep, Benign essential hypertension I[address] [id number], [place] [id number] Aug, [facility] [address] [id number], [place] [id number] Jul, [address] [id number], [place] [id number] Apr, [facility] [address] [id number], [place] 786896978 Apr, Abdominal bloating R14.0 ; Fatty liver K 76.0 ; Diverticulosis of intestine without bleeding, unspecified intestinal tract location K57.90 ; Chronic obstructive pulmonary disease, unspecified COPD type J44.9 and Benign essential hypertension I[address] [id number], [place] 985261536 Apr, Mild early onset dysthymic disorder, in partial remission, with melancholic features, 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 [id number], [place] [id number] Mar, Abdominal muscle strain, initial encount er S39.011[address] [employer] A[address] [id number], [place] [id number] Jan, Pancreatitis K85.9 ; Abdominal bloating R14.0 ; Chronic bronchitis J42 and Chronic pain G89.29 [facility] [address] [id number], [place] [id number] Nov, [facility] [address] [id number], [place] 598649978 Nov, [facility] [address] [id number], [place] 604677488 Nov, Chronic bronchitis J42 ; Tobacco abuse Z 72.0 and Tobacco abuse counseling Z71.[address] [facility] [address] [id number], [place] [id number] Oct, [facility] [address] [id number], [place] 689167026 Oct, Chronic bronchitis J42 ; Tobacco abuse Z 72.0 and Benign essential hypertension I10 [facility] [address] [id number], [place] [id number] Oct, Chronic bronchitis J42 ; Tobacco abuse Z 72.0 ; Tobacco abuse counseling Z71.6 ; Benign essential hypertension I10 and Hyperlipemia E78.5 [facility] [address] [facility] [id number] [address] [place] [address] Sep, [facility] [address] [id number], [place] [id number] Jul, [facility] [address] [place] [id number] [address] [place] [address] Jul, Essential (primary) hyperten aida I10 [facility] [address] [facility] [id number] [address] [place] [address] Jul, [facility] [address] [id number], [place] [id number] Jul, [facility] [address] [id number], [place] [id number] Jun, Benign essential hypertension 401.1 ; Ge neralized edema 782.3 ; Chronic pain 338.29 and Hyperlipemia 272.4 [facility] [address] [id number], [place] [id number] May, Upper respiratory infection 465.9 and Co ugh 786.2 [facility] [address] [id number], [place] [id number] Mar, Upper respiratory infection 465.9 ; 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 and Cough 786.2 [facility] [address] [place] [address] AVE [id number], [place] [id number] February, [facility] [address] [id number], [place] [id number] February, Status post bilateral carotid endarterec vito V45.89 ; CAD (coronary artery disease) 414.00 ; Benign essential hypertension 401.1 ; Hyperlipemia 272.4 ; Tobacco abuse 305.1 ; Tobacco abuse counseling V65.42 and Chronic bronchitis 491.9 [facility] [address] [place] [address] Jan, [facility] [address] [place] [place] [id number] [address] [place] [address] Jan, [facility] [address] [place] [id number] [address] [place] [address] Dec, [facility] [address] [place] [id number] [address] [place] [address] Dec, [facility] [address] [place] [address] Nov, [facility] [address] [place] [id number] [address] [place] [address] Nov, [facility] [address] [place] [id number] [address] [place] [address] Nov, [facility] [address] [place] [id number] [address] [place] [address] Nov, [facility] [address] [place] [id number] [address] [place] [address] Nov, [facility] [address] [id number] [address] [place] [address], [place] [address] Nov, [facility] [address] [id number] [address] [place] [address], [place] [address] Nov, [facility] [address] [id number] [address] [place] [address], [place] [address] Nov, [facility] [address] [id number] [address] [place] [address], [place] [address] Nov, [facility] [address] [id number] [address] [place] [address], [place] [address] Oct, [facility] [address] [id number] [address] [place] [address], [place] [address] Oct, [facility] [address] [id number] [address] [place] [address], [place] [address] Oct, [facility] [address] [id number] [address] [place] [address], [place] [address] Oct, [facility] [address] [id number] [address] [place] [address], [place] [address] Oct, [facility] [address] [id number] [address] [place] [address] Oct, [facility] [address] [id number] [address] [place] [address] Oct, [facility] [address] [id number] [address] [place] [address] Oct, [facility] [address] [id number] [address] [place] [address], [place] [address] Oct, [facility] [address] [id number] [address] [place] [address] Oct, [facility] [address] [id number] [place] [id number] Oct, [facility] [address] [id number] [address] [place] [address] Oct, [facility] [address] [id number] [address] [place] [address], [place] [address] Sep, [facility] [address] [id number] [address] [place] [address], [place] [address] Sep, [facility] [address] [id number] [address] [place] [address], [place] [address] Aug, [facility] [address] [id number] [address] [place] [address], [place] [address] Aug, [facility] [address] [id number] [address] [place] [address], [place] [address] Aug, [facility] [address] [id number] [address] [place] [address], [place] [address] Aug, [facility] [address] [id number] [address] [place] [address], [place] [address] Jul, [facility] [address] [id number] [address] [place] [address], [place] [address] Jul, [facility] [address] [id number] [address] [place] [address], [place] [address] Jun, [facility] [address] [id number] [address] [place] [address], [place] [address] Jun, [facility] [address] [id number] [address] [place] [address], [place] [address] May, [facility] [address] [id number] [address] [place] [address], [place] [address] May, [facility] [address] [id number] [address] [place] [address], [place] [address] May, [facility] [address] [id number] [address] [place] [address], [place] [address] May, [facility] [address] [id number] [address] [place] [address], [place] [address] Jan, [facility] [address] [id number] [address] [place] [address], [place] [address] Jan, [facility] [address] [id number] [address] [place] [address], [place] [address] Nov, [facility] [address] [id number] [address] [place] [address], [place] [address] Nov, [facility] [address] [id number] [address] [place] [address], [place] [address] Nov, [facility] [address] [id number] [address] [place] [address], [place] [address] Nov, [facility] [address] [id number] [address] [place] [address], [place] [address] Nov, [facility] [address] [id number] [address] [place] [address], [place] [address] Nov, [facility] [address] [id number] [address] [place] [address], [place] [address] Nov, [facility] [address] [id number] [address] [place] [address], [place] [address] Nov, [facility] [address] [id number] [address] [place] [address], [place] [address] Nov, [facility] [address] [id number] [address] [place] [address], [place] [address] Nov, [facility] [address] [id number] [address] [place] [address], [place] [address] Oct, [facility] [address] [id number] [address] [place] [address], [place] [address] Oct, [facility] [address] [id number] [address] [place] [address], [place] [address] Oct, [facility] [address] [id number] [address] [place] [address], [place] [address] Oct, [facility] [address] [id number] [address] [place] [address] Sep, [facility] [address] [id number] [address] [place] [address], [place] [address] Sep, [facility] [address] [id number] [address] [place] [address] Aug, [facility] [address] [id number] [address] [place] [address] Aug, [facility] [address] [id number] [address] [place] [address] Aug, [facility] [address] [id number] [address] [place] [address] Aug, [facility] [address] [id number] [address] [place] [address] Aug, [facility] [address] [id number] [address] [place] [address] Aug, [facility] [address] [id number] [address] [place] [address] Aug, [facility] [address] [id number] [address] [place] [address] Aug, [facility] [address] [id number] [address] [place] [address] Jul, [facility] [address] [id number] [address] [place] [address] Jul, [facility] [address] [id number] [address] [place] [address] Jul, [facility] [address] [id number] [address] [place] [address] Jul, [facility] [address] [id number] [address] [place] [address] Jul, [facility] [address] [id number] [address] [place] [address] Jun, [facility] [address] [id number] [address] [place] [address] May, [facility] [address] [id number] [address] [place] [address] Apr, [facility] [address] [id number] [address] [place] [address] February, [facility] [address] [id number] [address] [place] [address] Jan, [facility] [address] [id number] [address] [place] [address] Jan, [facility] [address] [id number] [address] [place] [phone] Dec, [facility] [address] [id number] [address] [place] [phone] Dec, [facility] [address] [id number] [address] [place] [phone] Dec, [facility] [address] [id number] [address] [place] [phone] Nov, [facility] [address] [id number] [address] [place] [phone] Nov, [facility] [address] [id number] [address] [place] [phone] Nov, [facility] [address] [id number] [address] [place] [phone] Nov, IMMUNIZATIONS No Known Immunizations SOCIAL HISTORY Never Assessed REASON FOR VISIT PALS Received PLAN OF CARE VITAL SIGNS MEDICATIONS Medication Instructions Dosage Frequency Start Date End Date Duration S tatus Bevespi Aerosphere 9-4.8 MCG/ACT Inhalation Twice a day (PALS) 2 pu ffs Apr, Active RESULTS No Results PROCEDURES No [...] 02/[address] [facility], LV function,-minimal RCA blockage <20% 1996 [facility], mild nonspecific bulbar duodenitis [...]
--- OUTSIDE RECORDS SUMMARY | 2020-04-06 07:04 | XMS REPORT ---
Author Author Jermaine CAMPOS Organization [facility] Address [address] [place] [address] Care Team Providers Care Clinical Trial Leader Name Role Phone TIFFANIE CAMPOS Unavailable PROBLEMS Type Condition ICD9-CM Code LXY38-WK Code Onset Dates Condition S tatus SNOMED Code Problem Gastroesophageal reflux disease without esophagitis K21.9 Active 476070350 Problem Bilateral carotid artery disease I77.9 Active 453048638 Problem Claudication of both lower extremities I73.9 Active 009085357 Problem Mixed hyperlipidemia E78.2 Active 046196942 Problem Peripheral arterial disease I73.9 Ac tive 717206049 Problem Chronic obstructive pulmonary disease, unspecified COPD ty pe J44.9 Active 49306030 Problem PAD (peripheral artery disease) I73.9 Active 675851379 Problem Claudication I73.9 Active 3972419 6 Problem Non-rheumatic mitral regurgitation I34.0 Active 076174528 Problem Tobacco abuse Z72.0 Active 252695 05 Problem Benign essential hypertension I10 Active 3851586 Problem Hyperlipemia E78.5 Active 1074003 4 Problem Chronic bronchitis J42 Active 6 6375241 Problem Diverticulosis of intestine without bleeding, unspecified intestinal tract location K57.90 Active 06370992 Problem Abdominal bloating R14.0 Active 1 36920983 Problem Chronic pain G89.29 Active 2287673 1 Problem Fatty liver K76.0 Active 25288121 7 Problem CAD (coronary artery disease) I25.10 Active 25868193 Problem COPD (chronic obstructive pulmonary disease) wit h chronic bronchitis J44.9 Active 987927665 ALLERGIES No Information ENCOUNTERS Encounter Location Date Diagnosis [facility] [address] [id number] [place] [address] Mar, Peripheral arterial disease I73.[address] [id number], [place] [address] February, Chronic pain G89.29 ; Hyperlipemia E78.5 and Benign essential hypertension I10 [facility] [address] [id number], [place] [address] Jan, COPD (chronic obstructive pulmonary dise ase) with chronic bronchitis J44.9 [facility] [address] [id number], [place] [id number] Jan, [facility] [address] [id number], [place] [address] Jan, Peripheral arterial disease I73.9 ; Carlo gn essential hypertension I10 ; Bilateral carotid artery disease I77.9 ; Claudication of both lower extremities I73.9 ; Mixed hyperlipidemia E78.2 ; Tobacco use Z72.0 and Non- rheumatic mitral regurgitation I34.0 [facility] [address] [id number], [place] [id number] Jan, RUQ pain R10.11 ; Gastroesophageal reflu x disease without esophagitis K21.9 and Change in stool R19.5 [facility] [address] [id number], [place] [id number] Jan, [facility] [address] [id number], [place] [id number] Jan, Neck pain M54.2 ; Benign essential hyper tension I10 ; COPD (chronic obstructive pulmonary disease) with chronic bronchitis J44.9 and Chronic obstructive pulmonary disease, unspecified COPD type J44.9 [facility] [address] [id number], [place] [address] Jan, Chronic obstructive pulmonary disease, u nspecified COPD type J44.9 [facility] [address] [id number], [place] [address] Dec, [facility] [address] [id number], [place] [address] Dec, [facility] [address] [id number], [place] [id number] Dec, COPD (chronic obstructive pulmonary dise ase) with chronic bronchitis J44.9 [facility] [address] [facility] [id number] 100[place] [address] Dec, [facility] [address] [facility] [id number] [address] [place] [address] Dec, [facility] [address] [id number], [place] [id number] Nov, [facility] [address] [id number], [place] [id number] Nov, Benign essential hypertension I10 and CO PD (chronic obstructive pulmonary disease) with chronic bronchitis J44.9 [facility] [address] [id number], [place] [address] Nov, Hyperlipemia E78.5 ; Benign essential hy pertension I10 ; COPD (chronic obstructive pulmonary disease) with chronic bronchitis J44.9 ; Encounter for immunization Z23 ; Gastroesophageal reflux disease without esophagitis K21.9 and Chronic pain G89.29 [facility] [address] [place] [address] AVE [id number], [place] [id number] Oct, COPD (chronic obstructive pulmonary dise ase) with chronic bronchitis J44.9 and Chronic obstructive pulmonary disease, unspecified COPD type J44.9 [facility] [address] [id number], [place] [id number] Oct, COPD (chronic obstructive pulmonary dise ase) with chronic bronchitis J44.9 and Chronic obstructive pulmonary disease, unspecified COPD type J44.9 [facility] [address] [place] [address] AVE [id number], [place] [address] Oct, COPD (chronic obstructive pulmonary dise ase) with chronic bronchitis J44.9 and Chronic obstructive pulmonary disease, unspecified COPD type J44.9 [facility] [address] [id number], [place] [id number] Oct, Benign essential hypertension I10 and Ne ck pain M54.2 [facility] [address] [id number], [place] [address] Sep, PAD (peripheral artery disease) I73.9 ; Claudication of both lower extremities I73.9 ; Bilateral carotid artery disease I77.9 ; Benign essential hypertension I10 ; Hyperlipemia E78.5 and Dyspnea on exertion R06.09 [facility] [employer] [facility] [address] [id number], [place] [address] Aug, Benign essential hypertension I10 ; Vannessa roesophageal reflux disease without esophagitis K21.9 and Cervical radiculopathy M54.12 [facility] [address] [id number], [place] [address] Aug, Gastroesophageal reflux disease without esophagitis K21.9 [facility] [address] [id number], [place] [address] Aug, COPD (chronic obstructive pulmonary dise ase) with chronic bronchitis J44.9 [facility] [address] [id number], [place] [id number] Jul, [facility] [address] [id number], [place] [address] Jul, Benign essential hypertension I10 [facility] [address] [id number], [place] [address] Jul, [facility] [address] [id number], [place] [address] Jul, COPD (chronic obstructive pulmonary dise ase) with chronic bronchitis J44.9 [facility] [address] [id number], [place] [address] Jul, Neck pain M54.2 [facility] [address] [id number], [place] [address] Jun, Claudication of both lower extremities I 73.9 ; PAD (peripheral artery disease) I73.9 ; Bilateral carotid artery disease I77.9 ; CAD (coronary artery disease) I25.10 ; Tobacco abuse Z72.0 ; Benign essential hypertension I10 ; Hyperlipemia E78.5 and Non-rheumatic mitral valve stenosis I34.2 [facility] [address] [id number], [place] [address] Jun, Chronic obstructive pulmonary disease, u nspecified COPD type J44.[address] [facility] [address] [id number] [place] [id number] May, [facility] [address] [id number] [place] [address] May, Chronic obstructive pulmonary disease, u nspecified COPD type J44.[address] [facility] [address] [id number] [place] [address] May, Neck pain M54.2 ; Chronic obstructive pu lmonary disease, unspecified COPD type J44.9 and Cervical radiculopathy M54.[address] [facility] [address] [id number] [place] [id number] May, [facility] [address] [id number], [place] [id number] Apr, [facility] [address] [id number], [place] [address] Apr, Gastroesophageal reflux disease without esophagitis K21.9 [facility] [address] [id number], [place] [address] Apr, COPD (chronic obstructive pulmonary dise ase) with chronic bronchitis J44.9 [facility] [address] [id number], [place] [address]44[address]95 Apr, [facility] [address] [id number], [place] [address] Apr, [facility] [address] [id number], [place] [address]99[address] Apr, COPD (chronic obstructive pulmonary dise ase) with chronic bronchitis J44.9 ; Benign essential hypertension I10 ; Tobacco abuse counseling Z71.6 and Hyperlipemia E78.[address] [facility] [address] [id number] [place] [address] February, COPD (chronic obstructive pulmonary dise ase) with chronic bronchitis J44.[address] [facility] [address] [id number] [place] [address] Jan, [facility] [address] [id number] [place] [address] Jan, COPD (chronic obstructive pulmonary dise ase) with chronic bronchitis J44.[address] [facility] [address] [id number] [place] [address] Oct, COPD (chronic obstructive pulmonary dise ase) with chronic bronchitis J44.[address] [facility] [address] [id number] [place] [address] Oct, Winter itch L29.[address] [address] [id number], [place] [address]65 Oct, COPD (chronic obstructive pulmonary dise ase) with chronic bronchitis J44.9 ; Benign essential hypertension I10 ; Tobacco abuse Z72.0 and Gastroesophageal reflux disease without esophagitis K21.9 [facility] [address] [id number], [place] [address]33444272 Sep, Benign essential hypertension I10 [facility] [address] [id number], [place] [address]22701016 Aug, [facility] [address] [id number], [place] 258993514 Jul, [facility] [address] [id number], [place] [id number] Apr, [facility] [address] [id number], [place] [id number] Apr, Abdominal bloating R14.0 ; Fatty liver K 76.0 ; Diverticulosis of intestine without bleeding, unspecified intestinal tract location K57.90 ; Chronic obstructive pulmonary disease, unspecified COPD type J44.9 and Benign essential hypertension I10 [facility] [address] [id number], [place] [address]6725589 Apr, Mild early onset dysthymic disorder, in partial remission, with melancholic features, 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 [facility] [address] [id number], [place] 784745717 Mar, Abdominal muscle strain, initial encount er S39.011A [facility] [address] [id number], [place] 014046631 Jan, Pancreatitis K85.9 ; Abdominal bloating R14.0 ; Chronic bronchitis J42 and Chronic pain G89.29 [facility] [address] [id number], [place] 103899636 Nov, [facility] [address] [id number], [place] [id number] Nov, [facility] [address] [id number], [place] [id number] Nov, Chronic bronchitis J42 ; Tobacco abuse Z 72.0 and Tobacco abuse counseling Z71.6 [facility] [address] [id number], [place] 107244401 Oct, [facility] [address] [id number], [place] 326485288 Oct, Chronic bronchitis J42 ; Tobacco abuse Z 72.0 and Benign essential hypertension I10 [facility] [address] [place] [address] AVE [id number], [place] 760771667 Oct, Chronic bronchitis J42 ; Tobacco abuse Z 72.0 ; Tobacco abuse counseling Z71.6 ; Benign essential hypertension I10 and Hyperlipemia E78.5 [facility] [address] [place] [id number] [address] [place] [address] Sep, [facility] [address] [facility] [address] [id number], [place] [id number] Jul, [facility] [address] [place] [id number] [address] [place] [address] Jul, Essential (primary) hyperten aida I10 [facility] [address] [facility] [id number] [address] [place] [address] Jul, [facility] [address] [id number], [place] 959720377 Jul, [facility] [address] [id number], [place] 260609062 Jun, Benign essential hypertension 401.1 ; Ge neralized edema 782.3 ; Chronic pain 338.29 and Hyperlipemia 272.[address] [facility] [address] [id number], [place] [id number] May, Upper respiratory infection 465.9 and Co ugh 786.[address] [id number], [place] 643484809 Mar, Upper respiratory infection 465.9 ; 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 and Cough 786.2 [facility] [address] [id number], [place] [id number] February, [facility] [id number] [facility] [id number], [place] 844200343 February, Status post bilateral carotid endarterec vito V45.89 ; CAD (coronary artery disease) 414.00 ; Benign essential hypertension 401.1 ; Hyperlipemia 272.4 ; Tobacco abuse 305.1 ; Tobacco abuse counseling V65.42 and Chronic bronchitis 491.9 [facility] [address] [place] [id number] [address] [place] [address] Jan, [facility] [address] [place] [id number] [address] [place] [address] Jan, [facility] [address] [place] [id number] [address] [place] [address] Dec, [facility] [address] [place] [id number] [address] [place] [address] Dec, [facility] [address] [id number] [address] [place] [address] Nov, [facility] [address] [place] [id number] [address] [place] [address] Nov, [facility] [address] [id number] [address] [place] [address], [place] [address] 19 Nov, 2014 [facility] [address] [id number] [address] [place] [address], [place] [address] Nov, 2014 [facility] [address] [id number] [address] [place] [address], [place] [address] Nov, 2014 [facility] [address] [id number] [address] [place] [address], [place] [address] Nov, 2014 [facility] [address] [id number] [address] [place] [address], [place] [address] Nov, 2014 [facility] [address] [id number] [address] [place] [address], [place] [address] Nov, [facility] [address] [id number] [address] [place] [address], [place] [address] Nov, [facility] [address] [id number] [address] [place] [address], [place] [address] Oct, [facility] [address] [id number] [address] [place] [address], [place] [address] Oct, [facility] [address] [id number] [address] [place] [address], [place] [address] Oct, [facility] [address] [id number] [address] [place] [address], [place] [address] Oct, [facility] [address] [id number] [address] [place] [address], [place] [address] Oct, [facility] [address] [id number] [address] [place] [address], [place] [address] Oct, [facility] [address] [id number] [address] [place] [address], [place] [address] Oct, [facility] [address] [id number] [address] [place] [address], [place] [address] Oct, [facility] [address] [id number] [address] [place] [address], [place] [address] Oct, [facility] [address] [id number] [address] [place] [address], [place] [address] Oct, [facility] [address] [id number] [place] [id number] Oct, [facility] [address] [id number] [address] [place] [address], [place] [address] Oct, [facility] [address] [id number] [address] [place] [address], [place] [address] Sep, [facility] [address] [id number] [address] [place] [address], [place] [address] Sep, [facility] [address] [id number] [address] [place] [address], [place] [address] Aug, [facility] [address] [id number] [address] [place] [address], [place] [address] Aug, [facility] [address] [id number] [address] [place] [address], [place] [address] Aug, [facility] [address] [id number] [address] [place] [address], [place] [address] Aug, [facility] [address] [id number] [address] [place] [address], [place] [address] Jul, [facility] [address] [id number] [address] [place] [address], [place] [address] Jul, [facility] [address] [id number] [address] [place] [address] Jun, [facility] [address] [id number] [address] [place] [address], [place] [address] Jun, [facility] [address] [id number] [address] [place] [address], [place] [address] May, [facility] [address] [id number] [address] [place] [address], [place] [address] May, [facility] [address] [id number] [address] [place] [address], [place] [address] May, [facility] [address] [id number] [address] [place] [address], [place] [address] May, [facility] [address] [id number] [address] [place] [address], [place] [address] Jan, [facility] [address] [id number] [address] [place] [address], [place] [address] Jan, [facility] [address] [id number] [address] [place] [address], [place] [address] Nov, [facility] [address] [id number] [address] [place] [address], [place] [address] Nov, [facility] [address] [id number] [address] [place] [address], [place] [address] Nov, [facility] [address] [id number] [address] [place] [address], [place] [address] Nov, [facility] [address] [id number] [address] [place] [address], [place] [address] Nov, [facility] [address] [id number] [address] [place] [address], [place] [address] Nov, [facility] [address] [id number] [address] [place] [address], [place] [address] Nov, [facility] [address] [id number] [address] [place] [address], [place] [address] Nov, [facility] [address] [id number] [address] [place] [address], [place] [address] Nov, [facility] [address] [id number] [address] [place] [address], [place] [address] Nov, [facility] [address] [id number] [address] [place] [address], [place] [address] Oct, [facility] [address] [id number] [address] [place] [address], [place] [address] Oct, [facility] [address] [id number] [address] [place] [address], [place] [address] Oct, [facility] [address] [id number] [address] [place] [address], [place] [address] Oct, [facility] [address] [id number] [address] [place] [address], [place] [address] Sep, [facility] [address] [id number] [address] [place] [address] Sep, [facility] [address] [id number] [address] [place] [address], [place] [address] Aug, [facility] [address] [id number] [address] [place] [address] Aug, [facility] [address] [id number] [address] [place] [address], [place] [address] Aug, [facility] [address] [id number] [address] [place] [address] Aug, [facility] [address] [id number] [address] [place] [address], [place] [address] Aug, [facility] [address] [id number] [address] [place] [address] Aug, [facility] [address] [id number] [address] [place] [address] Aug, [facility] [address] [id number] [address] [place] [address] Aug, [facility] [address] [id number] [address] [place] [address], [place] [address] Jul, [facility] [address] [id number] [address] [place] [address] Jul, [facility] [address] [id number] [address] [place] [address] Jul, [facility] [address] [id number] [address] [place] [address] Jul, [facility] [address] [id number] [address] [place] [address] Jul, [facility] [address] [id number] [address] [place] [address] Jun, [facility] [address] [id number] [address] [place] [address] May, [facility] [address] [id number] [address] [place] [address] Apr, [facility] [address] [id number] [address] [place] [address] February, [facility] [address] [id number] [address] [place] [address] Jan, [facility] [address] [id number] [address] [place] [address] Jan, [facility] [address] [id number] [address] [place] [phone] Dec, [facility] [address] [id number] [address] [place] [phone] Dec, [facility] [address] [id number] [address] [place] [phone] Dec, [facility] [address] [id number] [address] [place] [phone] Nov, [facility] [address] [id number] [address] [place] [phone] Nov, [facility] [address] [id number] [address] [place] [phone] Nov, [facility] [address] [id number] [address] [place] [phone] Nov, IMMUNIZATIONS No Known Immunizations SOCIAL HISTORY Never Assessed REASON FOR VISIT med refill PLAN OF CARE VITAL SIGNS MEDICATIONS Medication Instructions Dosage Frequency Start Date End Date Duration S tatus Ventolin HFA 108 (90 Base) MCG/ACT Inhalation every 4 hrs 2 puffs a s needed 4h 14 Apr, 2016 Active Bevespi Aerosphere 9-4.8 MCG/ACT Inhalation Twice a day 2 puffs 12h May, Active RESULTS No Results PROCEDURES No Known [...] Surgical History coronary angiography Dr Mane thakur [facility]- normal EF, LV function,-minimal RCA blockage <20% 1996 [facility], mild nonspecific bulbar duodenitis 1996 Surgical History carotid endarterectomy, right- [facility] 01/14 015 Surgical History Heart cath with [facility] 2013 Surgical History Colonoscopy- tubular adenoma , hyperplastic polyp- repeat Colonoscopy 12/2016 Hospitalization History heart attack 1996 Hospitalization History slurred speech, fever, left arm pain Sharifa Shah February 2015 Hospitalization History Pancreatitis 12/2015
[2020-04-06] MEDS ORDERED: LIDOCAINE 1% INJ 20 ML 20 ML VIAL ONE (07:06)
--- OUTSIDE RECORDS SUMMARY | 2020-04-06 07:06 | XMS REPORT | Continuity of Care Document ---
Author Organization Unknown Address Unknown Phone Unavailable Allergies Active Description Code Type Severity Reaction Onset Reported/Identified Relationship to Patient Clinical Status Yes No Known Drug Allergies [id number] Drug Allergy Unknown N/A 09/01/2013 Medications There is no data. 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 12/03/2012 401.9 UNSP ECIFIED ESSENTIAL HYPERTENSION 12/03/2012 305.1 CHRISTEL JUDY DEPENDENCE 12/03/2012 401.9 ACP Staging Stage 2 Hypertension: Greater Than Or = 160/100 12/03/2012 305.1 CHRISTEL JUDY DEPENDENCE 12/03/2012 401.9 ACP Staging Stage 2 Hypertension: Greater Than Or = 160/100 12/03/2012 305.1 CHRISTEL JUDY DEPENDENCE 12/03/2012 401.9 ACP Staging Stage 2 Hypertension: Greater Than Or = 160/100 12/03/2012 305.1 CHRISTEL JUDY DEPENDENCE 12/03/2012 401.9 ACP Staging Stage 2 Hypertension: Greater Than Or = 160/100 12/03/2012 JUANITO DDS, HEAVEN F 30 5.1 NICOTINE DEPENDENCE 12/03/2012 HEAVEN SOLOMON DDS F 40 1.9 ACP Staging Stage 2 Hypertension: Greater Than Or = 160/100 12/03/2012 MIRELLA ORTIZ MD 305. 1 NICOTINE DEPENDENCE 12/03/2012 MIRELLA ORTIZ MD 401. 9 ACP Staging Stage 2 Hypertension: Greater Than Or = 160/100 12/03/2012 305.1 CHRISTEL JUDY DEPENDENCE 12/03/2012 401.9 ACP Staging Stage 2 Hypertension: Greater Than Or = 160/100 12/03/2012 305.1 CHRISTEL JUDY DEPENDENCE 12/03/2012 401.9 ACP Staging Stage 2 Hypertension: Greater Than Or = 160/100 12/03/2012 MIRELLA ORTIZ MD 305. 1 NICOTINE DEPENDENCE 12/03/2012 MIRELLA ORTIZ MD 401. 9 ACP Staging Stage 2 Hypertension: Greater Than Or = 160/100 12/03/2012 HERNANDEZ DO, AINSLEY K 305.1 NICOTINE DEPENDENCE 12/03/2012 HERNANDEZ DO, AINSLEY K 401.9 ACP Staging Stage 2 Hypertension: Greater Than Or = 160/100 12/03/2012 HERNANDEZ DO, AINSLEY K 305.1 NICOTINE DEPENDENCE 12/03/2012 HERNANDEZ DO, AINSLEY K 401.9 ACP Staging Stage 2 Hypertension: Greater Than Or = 160/100 12/03/2012 HERNANDEZ DO, AINSLEY K 305.1 NICOTINE DEPENDENCE 12/03/2012 HERNANDEZ DO, AINSLEY K 401.9 ACP Staging Stage 2 Hypertension: Greater Than Or = 160/100 12/03/2012 TIFFANIE CAMPOS APRN 305.1 NICOTINE DEPENDENCE 12/03/2012 TIFFANIE CAMPOS APRN 401.9 ACP Staging Stage 2 Hypertension: Greater Than Or = 16 0/100 12/03/2012 HERNANDEZ DO, AINSLEY K 305.1 NICOTINE DEPENDENCE 12/03/2012 HERNANDEZ DO, AINSLEY K 401.9 ACP Staging Stage 2 Hypertension: Greater Than Or = 160/100 12/03/2012 HERNANDEZ DO, AINSLEY K 305.1 NICOTINE DEPENDENCE 12/03/2012 HERNANDEZ DO, AINSLEY K 401.9 ACP Staging Stage 2 Hypertension: Greater Than Or = 160/100 12/03/2012 TIFFANIE CAMPOS APRN 305.1 NICOTINE DEPENDENCE 12/03/2012 TIFFANIE CAMPOS APRN 401.9 ACP Staging Stage 2 Hypertension: Greater Than Or = 16 0/100 12/03/2012 COBY ELLISON MD 305.1 NICOTINE DEPENDENCE 12/03/2012 COBY ELLISON MD 401.9 ACP Staging Stage 2 Hypertension: Greater Than Or = 160/100 12/03/2012 HERNANDEZ DO, AINSLEY K 305.1 NICOTINE DEPENDENCE 12/03/2012 HERNANDEZ DO, AINSLEY K 401.9 ACP Staging Stage 2 Hypertension: Greater Than Or = 160/100 12/03/2012 ALLA VALDIVIA APRN 305.1 NICOTINE DEPENDENCE 12/03/2012 ALLA VALDIVIA APRN 401.9 ACP Staging Stage 2 Hypertension: Greater Than Or = 16 0/100 12/03/2012 TIFFANIE CAMPOS APRN 305.1 NICOTINE DEPENDENCE 12/03/2012 TIFFANIE CAMPOS APRN 401.9 ACP Staging Stage 2 Hypertension: Greater Than Or = 16 0/100 12/03/2012 TIFFANIE CAMPOS APRN 305.1 NICOTINE DEPENDENCE 12/03/2012 TIFFANIE CAMPOS APRN 401.9 ACP Staging Stage 2 Hypertension: Greater Than Or = 16 0/100 12/03/2012 TIFFANIE CAMPOS APRN 305.1 NICOTINE DEPENDENCE 12/03/2012 TIFFANIE CAMPOS APRN 401.9 ACP Staging Stage 2 Hypertension: Greater Than Or = 16 0/100 12/06/2012 414.00 COR ONARY ARTERY DISEASE 12/06/2012 785.2 Murmurs 12/06/2012 414.00 COR ONARY ARTERY DISEASE 12/06/2012 785.2 Murmurs 12/06/2012 414.00 COR ONARY ARTERY DISEASE 12/06/2012 785.2 Murmurs 12/06/2012 414.00 COR ONARY ARTERY DISEASE 12/06/2012 785.2 Murmurs 12/06/2012 JUANITO DDSESMEON F 414.00 CORONARY ARTERY DISEASE 12/06/2012 JUANITO DDSSAMMIHEAVEN F 78 5.2 Murmurs 12/06/2012 MIRELLA ORTIZ MD 414. 00 CORONARY ARTERY DISEASE 12/06/2012 MIRELLA ORTIZ MD 785. 2 Murmurs 12/06/2012 414.00 COR ONARY ARTERY DISEASE 12/06/2012 785.2 Murmurs 12/06/2012 414.00 COR ONARY ARTERY DISEASE 12/06/2012 785.2 Murmurs 12/06/2012 MIRELLA ORTIZ MD 414. 00 CORONARY ARTERY DISEASE 12/06/2012 MIRELLA ORTIZ MD 785. 2 Murmurs 12/06/2012 HERNANDEZ DO, AINSLEY K 414.00 [...] HERNANDEZ DO, AINSLEY K 785.2 Murmurs 12/06/2012 CAMPOS FAST FOOD CREW MEMBERTIFFANIE Carter J 414.00 CORONARY ARTERY DISEASE 12/06/2012 CAPMOS TIFFANIE BANDA 785.2 Murmurs 12/06/2012 COBY ELLISON MD 414.00 CORONARY ARTERY DISEASE 12/06/2012 COBY ELLISON MD 785.2 Murmurs 12/06/2012 HERNANDEZ DO, AINSLEY K 414.00 CORONARY ARTERY DISEASE 12/06/2012 HERNANDEZ DO, AINSLEY K 785.2 Murmurs 12/06/2012 VALDIVIA SOLO ALLA R 414.00 CORONARY ARTERY DISEASE 12/06/2012 VALDIVIA FAST FOOD CREW MEMBER, ALLA R 785.2 Murmurs 12/06/2012 CAMPOSTIFFANIE TREJO APRN J 414.00 CORONARY ARTERY DISEASE 12/06/2012 CAMPOSTIFFANIE TREJO APRN J 785.2 Murmurs 12/06/2012 CAMPOS AUDREY BANDAFER J 414.00 CORONARY ARTERY DISEASE 12/06/2012 CAMPOSAUDREY TREJO APRNFER J 785.2 Murmurs 12/06/2012 CAMPOSAUDREY TREJO APRNFER J 414.00 CORONARY ARTERY DISEASE 12/06/2012 CAMPOSAUDREY TREJO APRNFER J 785.2 Murmurs 12/12/2012 272.4 HYPE RLIPIDEMIA 12/12/2012 V65.42 Ant icipatory Guidance: Tobacco Use 12/12/2012 272.4 HYPE RLIPIDEMIA 12/12/2012 V65.42 Ant icipatory Guidance: Tobacco Use 12/12/2012 HEAVEN SOLOMON DDS 27 2.4 HYPERLIPIDEMIA 12/12/2012 HEAVEN SOLOMON DDS V65.42 Anticipatory Guidance: Tobacco Use 12/12/2012 MIRELLA ORTIZ MD 272. 4 HYPERLIPIDEMIA 12/12/2012 MIRELLA ORTIZ MD V65. 42 Anticipatory Guidance: Tobacco Use 12/12/2012 272.4 HYPE RLIPIDEMIA 12/12/2012 V65.42 Ant icipatory Guidance: Tobacco Use 12/12/2012 272.4 HYPE RLIPIDEMIA 12/12/2012 V65.42 Ant icipatory Guidance: Tobacco Use 12/12/2012 MIRELLA ORTIZ MD 272. 4 HYPERLIPIDEMIA 12/12/2012 MIRELLA ORTIZ MD V65. 42 Anticipatory Guidance: Tobacco Use 12/12/2012 HERNANDEZ DO, [...] V65.42 Anticipatory Guidance: Tobacco Use 12/17/2012 794.31 NON SPECIFIC ABNORMAL ELECTROCARDIOGRAM (ECG) (EKG) 12/17/2012 JUANITO RAEHEAVEN Velasquez 794.31 NONSPECIFIC ABNORMAL ELECTROCARDIOGRAM (ECG) (EKG) 12/17/2012 MIRELLA ORTIZ MD 794. 31 NONSPECIFIC ABNORMAL ELECTROCARDIOGRAM (ECG) (EKG) 12/17/2012 794.31 NON SPECIFIC ABNORMAL ELECTROCARDIOGRAM (ECG) (EKG) 12/17/2012 794.31 NON SPECIFIC ABNORMAL ELECTROCARDIOGRAM (ECG) (EKG) 12/17/2012 MIRELLA ORTIZ MD 794. 31 NONSPECIFIC ABNORMAL ELECTROCARDIOGRAM (ECG) (EKG) 12/17/2012 AINSLEY HERNANDEZ DO 794.31 NONSPECIFIC ABNORMAL ELECTROCARDIOGRAM (ECG) (EKG) 12/17/2012 AINSLEY HERNANDEZ DO K 794.31 NONSPECIFIC ABNORMAL ELECTROCARDIOGRAM (ECG) (EKG) 12/17/2012 AINSLEY HERNANDEZ DO K 794.31 NONSPECIFIC ABNORMAL ELECTROCARDIOGRAM (ECG) (EKG) 12/17/2012 TIFFANIE CAMPOS APRN 794.31 NONSPECIFIC ABNORMAL ELECTROCARDIOGRAM (ECG) (EKG) 12/17/2012 AINSLEY HERNANDEZ DO K 794.31 NONSPECIFIC ABNORMAL ELECTROCARDIOGRAM (ECG) (EKG) 12/17/2012 AINSLEY HERNANDEZ DO K 794.31 NONSPECIFIC ABNORMAL ELECTROCARDIOGRAM (ECG) (EKG) [...] NONSPECIFIC ABNORMAL ELECTROCARDIOGRAM (ECG) (EKG) 04/22/2013 401.1 ESSE NTIAL HYPERTENSION BENIGN 04/22/2013 MIRELLA ORTIZ MD 401. 1 ESSENTIAL HYPERTENSION BENIGN 04/22/2013 AINSLEY HERNANDEZ DO K 401.1 ESSENTIAL HYPERTENSION BENIGN 04/22/2013 HERNANDEZ DO AINSLEY K 401.1 ESSENTIAL HYPERTENSION BENIGN 04/22/2013 HERNANDEZ DO AINSLEY K 401.1 ESSENTIAL HYPERTENSION BENIGN 04/22/2013 TIFFANIE CAMPOS APRN 401.1 ESSENTIAL HYPERTENSION BENIGN 04/22/2013 HERNANDEZ MICHAEL MANNA K 401.1 ESSENTIAL HYPERTENSION BENIGN 04/22/2013 HERNANDEZ MICHAEL MANNA K 401.1 ESSENTIAL HYPERTENSION BENIGN 04/22/2013 TIFFANIE CAMPOS APRN 401.1 ESSENTIAL HYPERTENSION BENIGN 04/22/2013 COBY ELLISON MD 401.1 ESSENTIAL HYPERTENSION BENIGN 04/22/2013 HERNANDEZ MICHAEL MANNA K 401.1 ESSENTIAL HYPERTENSION BENIGN 04/22/2013 ALLA VALDIVIA APRN 401.1 ESSENTIAL HYPERTENSION BENIGN 04/22/2013 TIFFANIE CAMPOS APRN 401.1 ESSENTIAL HYPERTENSION BENIGN 04/22/2013 TIFFANIE CAMPOS APRN 401.1 ESSENTIAL HYPERTENSION BENIGN 04/22/2013 TIFFANIE CAMPOS APRN 401.1 ESSENTIAL HYPERTENSION BENIGN 06/27/2013 DIANA MCADAMS, MIRELLA V15. 82 Nicotine abuse 06/27/2013 AINSLEY HERNANDEZ DO K V15.82 Nicotine abuse 06/27/2013 MICHAEL HERNANDEZ DOA K V15.82 Nicotine abuse 06/27/2013 MICHAEL HERNANDEZ DOA K V15.82 Nicotine abuse 06/27/2013 TIFFANIE CAMPOS APRN V15.82 NICOTINE DEPENDENCE - IN REMISSION 06/27/2013 MICHAEL HERNANDEZ DOA K V15.82 NICOTINE DEPENDENCE - IN REMISSION 06/27/2013 MICHAEL HERNANDEZ DOA K V15.82 NICOTINE DEPENDENCE - IN REMISSION 06/27/2013 TIFFANIE CAMPOS APRN V15.82 NICOTINE DEPENDENCE - IN REMISSION 06/27/2013 COBY ELLISON MD V15.82 NICOTINE DEPENDENCE - IN REMISSION 06/27/2013 [...] TIFFANIE CAMPOS APRN 466.0 ACUTE BRONCHITIS 11/17/2013 HERNANDEZ DOMICHAELA K 466.0 ACUTE BRONCHITIS 11/17/2013 HERNANDEZ DO AINSLEY K 466.0 ACUTE BRONCHITIS 11/17/2013 TIFFANIE CAMPOS APRN 466.0 ACUTE BRONCHITIS 11/17/2013 TERRA MCADAMS, ALI 466.0 ACUTE BRONCHITIS 11/17/2013 HERNANDEZ DO AINSLEY K 466.0 ACUTE BRONCHITIS 11/17/2013 ALLA VALDIVIA APRN 466.0 ACUTE BRONCHITIS 11/17/2013 TIFFANIE CAMPOS APRN 466.0 ACUTE BRONCHITIS 11/17/2013 TIFFANIE CAMPOS APRN 466.0 ACUTE BRONCHITIS 11/17/2013 TIFFANIE CAMPOS APRN 466.0 ACUTE BRONCHITIS 12/10/2013 HERNANDEZ DO, AINSLEY K 443.9 INTERMITTENT CLAUDICATION 12/10/2013 HERNANDEZ DO AINSLEY K 786.09 DYSPNEA 12/10/2013 HERNANDEZ DO AINSLEY K 443.9 INTERMITTENT CLAUDICATION 12/10/2013 HERNANDEZ DO, AINSLEY K 786.09 DYSPNEA 12/10/2013 TIFFANIE CAMPOS APRN 443.9 INTERMITTENT CLAUDICATION 12/10/2013 TIFFANIE CAMPOS APRN 786.09 DYSPNEA 12/10/2013 TERRA MCADAMS, ALI 443.9 INTERMITTENT CLAUDICATION 12/10/2013 TERRA MCADAMS, ALI 786.09 DYSPNEA 12/10/2013 HERNANDEZ DO AINSLEY K 443.9 INTERMITTENT CLAUDICATION 12/10/2013 HERNANDEZ DO AINSLEY K 786.09 DYSPNEA 12/10/2013 ALLA VALDIVIA APRN 443.9 INTERMITTENT CLAUDICATION 12/10/2013 ALLA VALDIVIA APRN 786.09 DYSPNEA 12/10/2013 TIFFANIE CAMPOS APRN 443.9 INTERMITTENT CLAUDICATION 12/10/2013 TIFFANIE CAMPOS APRN 786.09 DYSPNEA 12/10/2013 TIFFANIE CAMPOS APRN 443.9 INTERMITTENT CLAUDICATION 12/10/2013 TIFFANIE CAMPOS APRN 786.09 DYSPNEA 12/10/2013 TIFFANIE CAMPOS APRN 443.9 INTERMITTENT CLAUDICATION 12/10/2013 TIFFANIE CAMPOS APRN 786.09 DYSPNEA 02/05/2014 MICHAEL HERNANDEZ DOA K 356.9 PERIPHERAL NEUROPATHY 02/05/2014 MICHAEL HERNANDEZ DOA K 356.9 PERIPHERAL NEUROPATHY 02/05/2014 TIFFANIE CAMPOS APRN 356.9 PERIPHERAL NEUROPATHY 02/05/2014 TERRA MCADAMS, COBY 356.9 PERIPHERAL NEUROPATHY 02/05/2014 HERNANDEZ MICHAEL MANNA K 356.9 PERIPHERAL NEUROPATHY 02/05/2014 ALLA VALDIVIA APRN R 356.9 PERIPHERAL NEUROPATHY 02/05/2014 TIFFANIE CAMPOS APRN 356.9 PERIPHERAL NEUROPATHY 02/05/2014 TIFFANIE CAMPOS APRN 356.9 PERIPHERAL NEUROPATHY 02/05/2014 TIFFANIE CAMPOS APRN 356.9 PERIPHERAL NEUROPATHY 06/10/2014 HERNANDEZ DO AINSLEY K 424.0 MITRAL VALVE DISORDERS 06/10/2014 HERNANDEZ MICHAEL MANNA K 786.50 CHEST PAIN 06/10/2014 TIFFANIE CAMPOS APRN 424.0 MITRAL VALVE DISORDERS 06/10/2014 TIFFANIE CAMPOS APRN 786.50 CHEST PAIN 06/10/2014 TERRA MCADAMS, ALI 424.0 MITRAL VALVE DISORDERS 06/10/2014 TERRA MCADAMS, ALI 786.50 CHEST PAIN 06/10/2014 DAVID MANN AINSLEY K 424.0 MITRAL VALVE DISORDERS 06/10/2014 HERNANDEZ DO AINSLEY K 786.50 CHEST PAIN 06/10/2014 VALDIVIAALLA PATEL APRN R 424.0 MITRAL VALVE DISORDERS 06/10/2014 ALLA VALDIVIA APRN 786.50 CHEST PAIN 06/10/2014 TIFFANIE CAMPOS APRN 424.0 MITRAL VALVE DISORDERS 06/10/2014 TIFFANIE CAMPOS APRN 786.50 CHEST PAIN 06/10/2014 TIFFANIE CAMPOS APRN 424.0 MITRAL VALVE DISORDERS 06/10/2014 TIFFANIE CAMPOS APRN 786.50 CHEST PAIN 06/10/2014 TIFFANIE CAMPOS APRN 424.0 MITRAL VALVE DISORDERS 06/10/2014 TIFFANIE CAMPOS APRN 786.50 CHEST PAIN 06/17/2014 COBY ELLISON MD, FACCP CCDS Ot 272.4 HYPERLIPIDEMIA NEC/NOS 06/17/2014 TERRA MCADAMS FACC, ALI FACP CCDS Ot 305.1 TOBACCO USE DISORDER 06/17/2014 TERRA MCADAMS FACC, ALI FACP CCDS Ot 401.9 HYPERTENSION NOS 06/17/2014 TERRA MCADAMS FACC, COBY FACP CCDS Ot 414.01 CORONARY ATHEROSCLEROSIS OF [place] CORON 06/17/2014 TERRA MCADAMS FACC, ALI FACP CCDS Ot 414.2 CHRONIC TOTAL OCCLUSION OF CORONARY [place] 06/17/2014 TERRA MCADAMS FACC, COBY FACP CCDS Ot 414.4 CORONARY ATHEROSCLEROSIS DUE TO [place] 06/17/2014 TERRA MCADAMS FACC, COBY FACP CCDS Ot 424.0 MITRAL VALVE DISORDER 06/17/2014 TERRA MCADAMS FACC, ALI FACP CCDS Ot 440.0 AORTIC ATHEROSCLEROSIS 06/17/2014 TERRA MCADAMS FACC, COBY FACP CCDS Ot 440.1 RENAL ARTERY ATHEROSCLER 06/17/2014 TERRA MCADAMS FACC, ALI FACP CCDS Ot 440.21 ATHEROSCL [place] ARTER EXTREM W INTERMIT 06/17/2014 TERRA MCADAMS FACC, COBY FACP CCDS Ot V58.69 OTH MED,LT,CURRENT USE [...] 08/05/2014 TIFFANIE CAMPOS APRN 433.10 CAROTID 2014 AINLSEY HERNANDEZ DO 235.1 NEOPLASM OF UNCERTAIN BEHAVIOR [...] OF LIP ORAL CAVITY AND PHARYNX 09/19/2014 LALA VALDIVIA APRN 465.9 UPPER RESPIRATORY INFECTION 09/19/2014 [...] TYPE VESSEL, NATIV 06/07/2016 TERRA MCADAMS FACC, ALI FACP CCDS Ot 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 06/07/2016 TERRA MCADAMS FACC, ALI FACP CCDS Ot 397.0 TRICUSPID VALVE DISEASE 06/07/2016 TERRA MCADAMS FACC, ALI FACP CCDS Ot 414.00 CORON ATHEROSCLER NOS TYPE VESSEL, NATIV 06/07/2016 TERRA MCADAMS FACC, COBY FACP CCDS Ot 443.9 PERIPH VASCULAR DIS NOS 06/07/2016 TERRA MCADAMS FACC, ALI FACP CCDS Ot 785.2 CARDIAC MURMURS NEC 06/12/2016 ROSA MARIA MOLINA DO Ot K21. 9 GASTRO-ESOPHAGEAL REFLUX DISEASE WITHOUT 06/12/2016 ROSA MARIA MOLINA DO Ot Z01.818 ENCOUNTER FOR OTHER PREPROCEDURAL EXAMIN 06/12/2016 ROSA MARIA MOLINA DO Ot K21. 9 GASTRO-ESOPHAGEAL REFLUX DISEASE WITHOUT 06/12/2016 ROSA MARIA MOLINA DO Ot Z01.818 ENCOUNTER FOR OTHER PREPROCEDURAL EXAMIN 06/12/2016 TIFFANIE CAMPOS FAST FOOD CREW MEMBER Ot 414.00 CORON ATHEROSCLER NOS TYPE VESSEL, [...] 785.2 CARDIAC MURMURS NEC 06/12/2016 TIFFANIE CAMPOS FAST FOOD CREW MEMBER Ot 414.00 CORON ATHEROSCLER NOS TYPE VESSEL, [...] PAIN 06/13/2016 ROSA MARIA MOLINA DO Ot D12. 3 BENIGN NEOPLASM OF TRANSVERSE COLON 06/13/2016 ROSA MARIA MOLINA DO Ot K20. 9 ESOPHAGITIS, UNSPECIFIED 06/13/2016 ROSA MARIA MOLINA DO Ot K63. 5 POLYP OF COLON 06/13/2016 ROSA MARIA MOLINA DO Ot Z12. 11 ENCOUNTER FOR SCREENING FOR MALIGNANT NE 06/14/2016 TIFFANIE CAMPOS FAST FOOD CREW MEMBER Ot 414.00 CORON ATHEROSCLER NOS TYPE VESSEL, NATIV 06/14/2016 TERRA MCADAMS FACC, ALI FACP CCDS Ot 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 06/14/2016 TERRA AGUILERAC, ALI FACP CCDS Ot 397.0 TRICUSPID VALVE DISEASE 06/14/2016 TERRA MCADAMS FACC, ALI FACP CCDS Ot 414.00 CORON ATHEROSCLER NOS TYPE VESSEL, NATIV 06/14/2016 TERRA MCADAMS FACC, ALI FACP CCDS Ot 443.9 PERIPH VASCULAR DIS NOS 06/14/2016 TERRA MCADAMS FACC, ALI FACP CCDS Ot 785.2 CARDIAC MURMURS NEC 06/15/2016 YANET IVERSON MD Ot F17.210 NICOTINE DEPENDENCE, CIGARETTES, UNCOMPL 06/15/2016 YANET IVERSON MD Ot R10.12 LEFT UPPER QUADRANT PAIN 06/15/2016 YANET IVERSON MD Ot R10.32 LEFT LOWER QUADRANT PAIN 06/15/2016 YANET IVERSON MD Ot R10.9 UNSPECIFIED ABDOMINAL PAIN 06/17/2016 TIFFANIE CAMPOS FAST [employer] CREW MEMBER Ot 414.00 CORON ATHEROSCLER NOS TYPE VESSEL, NATIV 06/17/2016 TERRA AGUILERAC, ALI FACP CCDS Ot 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 06/17/2016 TERRA AGUILERAC, ALI FACP CCDS Ot 397.0 TRICUSPID VALVE DISEASE 06/17/2016 TERRA MCADAMS FACC, ALI FACP CCDS Ot 414.00 CORON ATHEROSCLER NOS TYPE VESSEL, NATIV 06/17/2016 TERRA MCADAMS FACC, ALI FACP CCDS Ot 443.9 PERIPH VASCULAR DIS NOS 06/17/2016 TERRA MCADAMS FACC, ALI FACP CCDS Ot 785.2 CARDIAC MURMURS NEC 06/18/2016 YANET IVERSON MD Ot F17.210 NICOTINE DEPENDENCE, CIGARETTES, UNCOMPL 06/18/2016 YANET IVERSON MD Ot R10.12 LEFT UPPER QUADRANT PAIN 06/18/2016 YANET IVERSON MD Ot R10.32 LEFT LOWER QUADRANT PAIN 06/18/2016 YANET IVERSON MD Ot R10.9 UNSPECIFIED ABDOMINAL PAIN 06/20/2016 TIFFANIE CAMPOS FAST FOOD CREW MEMBER Ot 414.00 CORON ATHEROSCLER NOS TYPE VESSEL, NATIV 06/20/2016 TERRA MCADAMS FACC, ALI FACP CCDS Ot 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 06/20/2016 TERRA MCADAMS FACC, ALI FACP CCDS Ot 397.0 TRICUSPID VALVE DISEASE 06/20/2016 TERRA MCADASM FACC, ALI FACP CCDS Ot 414.00 CORON ATHEROSCLER NOS TYPE VESSEL, NATIV 06/20/2016 TERRA MCADAMS FACC, ALI FACP CCDS Ot 443.9 PERIPH VASCULAR DIS NOS 06/20/2016 TERRA MCADAMS FACC, ALI FACP CCDS Ot 785.2 CARDIAC MURMURS NEC 06/20/2016 TIFFANIE CAMPOS FAST FOOD CREW MEMBER Ot 414.00 CORON ATHEROSCLER NOS TYPE VESSEL, [...] DEPENDENCE, CIGARETTES, UNCOMPL 08/29/2016 TERRA MCADAMS FACC, COBY FACP CCDS Ot F32.9 MAJOR DEPRESSIVE DISORDER, SINGLE EPISOD 08/29/2016 TERRA MCADAMS FACC, ALI FACP CCDS Ot I25.10 ATHSCL HEART DISEASE OF [place] CORONARY 08/29/2016 TERRA MCADAMS FACC, COBY FACP CCDS Ot I25.82 CHRONIC TOTAL OCCLUSION OF CORONARY [place] 08/29/2016 OCBY ELLISON MD, FACC FACP CCDS Ot I34.0 NONRHEUMATIC MITRAL (VALVE) INSUFFICIENC 08/29/2016 COBY ELLISON MD, FACC FACP CCDS Ot I70.0 ATHEROSCLEROSIS OF [place] 08/29/2016 COBY ELLISON MD, FACC FACP CCDS Ot I70.1 ATHEROSCLEROSIS OF RENAL ARTERY 08/29/2016 TERRA MCADAMS FACC, COBY FACP CCDS Ot I70.213 ATHSCL [place] ARTERIES OF EXTRM W INTRMT 08/29/2016 COBY ELLISON MD, FACC FACP CCDS Ot I70.92 CHRONIC TOTAL OCCLUSION OF ARTERY OF THE 08/29/2016 COBY ELLISON MD, FACC FACP CCDS Ot R07.89 OTHER CHEST PAIN 08/29/2016 COBY ELLISON MD, FACC FACP CCDS Ot Z79.899 OTHER RETIREMENT (CURRENT) DRUG THERAPY 08/31/2016 KIEL MEZA LAWN MOWER SHARPENER Ot I 10 ESSENTIAL (PRIMARY) HYPERTENSION 08/31/2016 KIEL MEZA LAWN MOWER SHARPENER Ot R06.09 OTHER FORMS OF DYSPNEA 08/31/2016 KIEL MEZA LAWN MOWER SHARPENER Ot R07.9 CHEST PAIN, UNSPECIFIED 09/06/2016 KIEL MEZA LAWN MOWER SHARPENER Ot I 10 ESSENTIAL (PRIMARY) HYPERTENSION 09/06/2016 KIEL MEZA LAWN MOWER SHARPENER Ot R06.09 OTHER FORMS OF DYSPNEA 09/06/2016 KIEL MEZA LAWN MOWER SHARPENER Ot R07.9 CHEST PAIN, UNSPECIFIED 09/09/2016 TIFFANIE CAMPOS APRN Ot 414.00 CORON ATHEROSCLER NOS TYPE VESSEL, NATIV 09/09/2016 COBY ELLISON MD, FACC FACP CCDS Ot 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 09/09/2016 TERRA MCADAMS FACC ALI FACP CCDS Ot 397.0 TRICUSPID VALVE DISEASE 09/09/2016 TERRA MCADAMS FACC, COBY FACP CCDS Ot 414.00 CORON ATHEROSCLER NOS TYPE VESSEL, NATIV 09/09/2016 TERRA MCADAMS FACC, COBY FACP CCDS Ot 443.9 PERIPH VASCULAR DIS NOS 09/09/2016 TERRA MCADAMS FACC, COBY FACP CCDS Ot 785.2 CARDIAC MURMURS NEC 09/09/2016 KIEL MEZA LAWN MOWER SHARPENER Ot I 10 ESSENTIAL (PRIMARY) HYPERTENSION 09/09/2016 KIEL MEZA LAWN MOWER SHARPENER Ot R06.09 OTHER FORMS OF DYSPNEA 09/09/2016 KIEL MEZA LAWN MOWER SHARPENER Ot R07.9 CHEST PAIN, UNSPECIFIED 09/09/2016 TIMOTEO MA MD Ot E78. 5 HYPERLIPIDEMIA, UNSPECIFIED 09/09/2016 TIMOTEO MA MD, Ot F17.210 NICOTINE DEPENDENCE, CIGARETTES, UNCOMPL 09/09/2016 TIMOTEO MA MD, Ot F32. 9 MAJOR DEPRESSIVE DISORDER, SINGLE EPISOD 09/09/2016 TIMOTEO MA MD, Ot G47. 33 OBSTRUCTIVE SLEEP APNEA (ADULT) (PEDIATR 09/09/2016 TIMOTEO MA MD, Ot I25. 10 ATHSCL HEART DISEASE OF [place] CORONARY 09/09/2016 TIMOTEO MA MD, Ot I25. 2 OLD MYOCARDIAL INFARCTION 09/09/2016 TIMOTEO MA MD, Ot I25. 82 CHRONIC TOTAL OCCLUSION OF CORONARY [place] 09/09/2016 TIMOTEO MA MD Ot I70.213 ATHSCL [place] ARTERIES OF EXTRM W INTRMT 09/09/2016 TIMOTEO MA MD, Ot J44. 9 CHRONIC OBSTRUCTIVE PULMONARY DISEASE, U 09/09/2016 TIMOTEO MA MD, Ot K21. 9 GASTRO-ESOPHAGEAL REFLUX DISEASE WITHOUT 09/09/2016 TIMOTEO MA MD, Ot R07. 9 CHEST PAIN, UNSPECIFIED 09/09/2016 TIMOTEO MA MD, Ot Z98. 61 CORONARY ANGIOPLASTY STATUS 09/11/2016 TIFFANIE CAMPOS APRN Ot 414.00 CORON ATHEROSCLER NOS TYPE VESSEL, NATIV 09/11/2016 TERRA MCADAMS FACC, COBY AGUILERAP CCDS Ot 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 09/11/2016 TERRA MCADAMS FACC, COBY FACP CCDS Ot 397.0 TRICUSPID VALVE DISEASE 09/11/2016 TERRA MCADAMS FACC, ALI FACP CCDS Ot 414.00 CORON ATHEROSCLER NOS TYPE VESSEL, NATIV 09/11/2016 TERRA MCADAMS FACC, ALI FACP CCDS Ot 443.9 PERIPH VASCULAR DIS NOS 09/11/2016 TERRA MCADAMS FACC, ALI FACP CCDS Ot 785.2 CARDIAC MURMURS NEC 09/11/2016 KIEL MEZA L LAWN MOWER SHARPENER Ot I 10 ESSENTIAL (PRIMARY) HYPERTENSION 09/11/2016 LUCIOMA KIEL L LAWN MOWER SHARPENER Ot R06.09 OTHER FORMS OF DYSPNEA 09/11/2016 SUSANA KIEL L LAWN MOWER SHARPENER Ot R07.9 CHEST PAIN, UNSPECIFIED 09/11/2016 SUSANA KIEL L LAWN MOWER SHARPENER Ot I 10 ESSENTIAL (PRIMARY) HYPERTENSION 09/11/2016 SUSANA KIEL L LAWN MOWER SHARPENER Ot R06.09 OTHER FORMS OF DYSPNEA 09/11/2016 KIEL MEZA L LAWN MOWER SHARPENER Ot R07.9 CHEST PAIN, UNSPECIFIED 09/12/2016 TERRA MCADAMS FACC, ALI FACP CCDS Ot E78.5 HYPERLIPIDEMIA, UNSPECIFIED 09/12/2016 TERRA MCADAMS FACC, ALI FACP CCDS Ot F17.210 NICOTINE DEPENDENCE, CIGARETTES, UNCOMPL 09/12/2016 TERRA MCADAMS FACC, ALI FACP CCDS Ot G47.33 OBSTRUCTIVE SLEEP APNEA (ADULT) (PEDIATR 09/12/2016 TERRA MCADAMS FACC, ALI FACP CCDS Ot I25.10 ATHSCL HEART DISEASE OF [place] CORONARY 09/12/2016 TERRA MCADAMS FACC, ALI FACP CCDS Ot I70.213 ATHSCL [place] ARTERIES OF EXTRM W INTRMT 09/12/2016 TERRA MCADAMS FACC, ALI FACP CCDS Ot Z79.899 OTHER RETIREMENT (CURRENT) DRUG THERAPY 09/18/2016 KIEL MEZA L LAWN MOWER SHARPENER Ot I 10 ESSENTIAL (PRIMARY) HYPERTENSION 09/18/2016 LUCIOMA KIEL L LAWN MOWER SHARPENER Ot R06.09 OTHER FORMS OF DYSPNEA 09/18/2016 DARLINE MEZAHER L LAWN MOWER SHARPENER Ot R07.9 CHEST PAIN, UNSPECIFIED 09/26/2016 TERRA MCADAMS FACC, ALI FACP CCDS Ot E78.5 HYPERLIPIDEMIA, UNSPECIFIED 09/26/2016 TERRA AGUILERAC, ALI FACP CCDS Ot F17.210 NICOTINE DEPENDENCE, CIGARETTES, UNCOMPL 09/26/2016 TERRA AGUILERAC, ALI FACP CCDS Ot F32.9 MAJOR DEPRESSIVE DISORDER, SINGLE EPISOD 09/26/2016 TERRA MCADAMS FACC, ALI FACP CCDS Ot I25.10 ATHSCL HEART DISEASE OF [place] CORONARY 09/26/2016 TERRA MCADAMS FACC, ALI FACP CCDS Ot I25.82 CHRONIC TOTAL OCCLUSION OF CORONARY [place] 09/26/2016 TERRA MCADAMS FACC, ALI FACP CCDS Ot I34.0 NONRHEUMATIC MITRAL (VALVE) INSUFFICIENC 09/26/2016 TERRA MCADAMS FACC, ALI FACP CCDS Ot I70.0 ATHEROSCLEROSIS OF [place] 09/26/2016 TERRA MCADAMS FACC, ALI FACP CCDS Ot I70.1 ATHEROSCLEROSIS OF RENAL ARTERY 09/26/2016 TERRA MCADAMS FACC, ALI FACP CCDS Ot I70.213 ATHSCL [place] ARTERIES OF EXTRM W INTRMT 09/26/2016 TERRA AGUILERAC, ALI FACP CCDS Ot I70.92 CHRONIC TOTAL OCCLUSION OF ARTERY OF THE 09/26/2016 TERRA MCADAMS FACC, ALI FACP CCDS Ot R07.89 OTHER CHEST PAIN 09/26/2016 TERRA MCADAMS FACC, ALI FACP CCDS Ot Z79.899 OTHER LENS COATER (CURRENT) DRUG THERAPY 09/29/2016 TERRA MCADAMS FACC, ALI FACP CCDS Ot E78.5 HYPERLIPIDEMIA, UNSPECIFIED 09/29/2016 TERRA AGUILERAC, ALI FACP CCDS Ot F17.210 NICOTINE DEPENDENCE, CIGARETTES, UNCOMPL 09/29/2016 TERRA AGUILERAC, ALI FACP CCDS Ot F32.9 MAJOR DEPRESSIVE DISORDER, SINGLE EPISOD 09/29/2016 TERRA MCADAMS FACC, ALI FACP CCDS Ot I25.10 ATHSCL HEART DISEASE OF [place] CORONARY 09/29/2016 TERRA AGUILERAC, ALI FACP CCDS Ot I25.82 CHRONIC TOTAL OCCLUSION OF CORONARY [place] 09/29/2016 TERRA AGUILERAC, ALI FACP CCDS Ot I34.0 NONRHEUMATIC MITRAL (VALVE) INSUFFICIENC 09/29/2016 TERRA MCADAMS FACC, ALI FACP CCDS Ot I70.0 ATHEROSCLEROSIS OF [place] 09/29/2016 TERRA MCADAMS FACC, ALI FACP CCDS Ot I70.1 ATHEROSCLEROSIS OF RENAL ARTERY 09/29/2016 TERRA MCADAMS FACC, ALI FACP CCDS Ot I70.213 ATHSCL [place] ARTERIES OF EXTRM W INTRMT 09/29/2016 TERRA MCADAMS FACC, ALI FACP CCDS Ot I70.92 CHRONIC TOTAL OCCLUSION OF ARTERY OF THE 09/29/2016 TERRA MCADAMS FACC, ALI FACP CCDS Ot R07.89 OTHER CHEST PAIN 09/29/2016 TERRA MCADAMS FACC, ALI FACP CCDS Ot Z79.899 OTHER RETIREMENT (CURRENT) DRUG THERAPY 02/16/2017 TIFFANIE CAMPOS [employer] CREW MEMBER Ot 414.00 CORON ATHEROSCLER NOS TYPE VESSEL, [...] 785.2 CARDIAC MURMURS NEC 02/16/2017 KIEL MEZA [employer]WN MOWER SHARPENER Ot I 10 ESSENTIAL (PRIMARY) HYPERTENSION 02/16/2017 KIEL MEZA [employer] MOWER SHARPENER Ot R06.09 OTHER FORMS OF DYSPNEA 02/16/2017 KIEL MEZA [employer] MOWER SHARPENER Ot R07.9 CHEST PAIN, UNSPECIFIED 03/02/2017 TIFFANIE CAMPOS [employer] MEMBER Ot 414.00 CORON ATHEROSCLER NOS TYPE VESSEL, [...] CCDS Ot 785.2 CARDIAC MURMURS NEC 03/02/2017 KIEL MEZA [employer] M[employer] SHARPENER Ot I 10 ESSENTIAL (PRIMARY) HYPERTENSION 03/02/2017 KIEL MEZA [employer] SHARPENER Ot R06.09 OTHER FORMS OF DYSPNEA 03/02/2017 KIEL MEZA [employer] SHARPENER Ot R07.9 CHEST PAIN, UNSPECIFIED 03/05/2017 ROSA MARIA MOLINA DO Ot Z01.818 ENCOUNTER FOR OTHER PREPROCEDURAL EXAMIN 03/05/2017 ROSA MARIA MOLINA DO Ot Z86.010 PERSONAL HISTORY OF COLONIC POLYPS 03/06/2017 BETH TIFFANIE J [employer]W MEMBER Ot 414.00 CORON ATHEROSCLER NOS TYPE VESSEL, NATIV 03/06/2017 TERRA MCADAMS FACC, ALI FACP CCDS Ot 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 03/06/2017 TERRA MCADAMS FACC, ALI FACP CCDS Ot 397.0 TRICUSPID VALVE DISEASE 03/06/2017 TERRA MCADAMS FACC, ALI FACP CCDS Ot 414.00 CORON ATHEROSCLER NOS TYPE VESSEL, NATIV 03/06/2017 TERRA MCADAMS FACC, ALI FACP CCDS Ot 443.9 PERIPH VASCULAR DIS NOS 03/06/2017 TERRA AGUILERAC, ALI FACP CCDS Ot 785.2 CARDIAC MURMURS NEC 03/06/2017 KIEL MEZA [employer]OWER SHARPENER Ot I 10 ESSENTIAL (PRIMARY) HYPERTENSION 03/06/2017 KIEL MEZA [employer] SHARPENER Ot R06.09 OTHER FORMS OF DYSPNEA 03/06/2017 KIEL MEZA [employer] SHARPENER Ot R07.9 CHEST PAIN, UNSPECIFIED 03/06/2017 ROSA MARIA MOLINA DO Ot D12. 2 BENIGN NEOPLASM OF ASCENDING COLON 03/06/2017 ROSA MARIA MOLINA DO Ot D12. 3 BENIGN NEOPLASM OF TRANSVERSE COLON 03/06/2017 ROSA MARIA MOLINA DO Ot F17.210 NICOTINE DEPENDENCE, CIGARETTES, UNCOMPL 03/06/2017 ROSA MARIA MOLINA DO Ot I25. 10 ATHSCL HEART DISEASE OF [place] CORONARY 03/06/2017 ROSA MARIA MOLINA DO Ot I73. 9 PERIPHERAL VASCULAR DISEASE, UNSPECIFIED 03/06/2017 ROSA MARIA MOLINA DO Ot Z79. 02 RETIREMENT (CURRENT) USE OF ANTITHROMBOTI 03/15/2017 ROSA MARIA MOLINA DO Ot D12. 2 BENIGN NEOPLASM OF ASCENDING COLON 03/15/2017 ROSA MARIA MOLINA DO Ot D12. 3 BENIGN NEOPLASM OF TRANSVERSE COLON 03/15/2017 ROSA MARIA MOLINA DO Ot F17.210 NICOTINE DEPENDENCE, CIGARETTES, UNCOMPL 03/15/2017 ROSA MARIA MOLINA DO Ot I25. 10 ATHSCL HEART DISEASE OF [place] CORONARY 03/15/2017 ROSA MARIA MOLINA DO Ot I73. 9 PERIPHERAL VASCULAR DISEASE, UNSPECIFIED 03/15/2017 ROSA MARIA MOLINA DO Ot Z79. 02 RETIREMENT (CURRENT) USE OF ANTITHROMBOTI 07/11/2017 TIFFANIE CAMPOS [employer]W MEMBER Ot 414.00 CORON ATHEROSCLER NOS TYPE VESSEL, NATIV 07/11/2017 TERRA MCADAMS FACC, ALI FACP CCDS Ot 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 07/11/2017 TERRA MCADAMS FACC, ALI FACP CCDS Ot 397.0 TRICUSPID VALVE DISEASE 07/11/2017 TERRA MCADAMS FACC, ALI FACP CCDS Ot 414.00 CORON ATHEROSCLER NOS TYPE VESSEL, NATIV 07/11/2017 TERRA MCADAMS FACC, ALI FACP CCDS Ot 443.9 PERIPH VASCULAR DIS NOS 07/11/2017 TERRA MCADAMS FACC, ALI FACP CCDS Ot 785.2 CARDIAC MURMURS NEC 07/11/2017 KIEL MEZA [employer] M[employer] SHARPENER Ot I 10 ESSENTIAL (PRIMARY) HYPERTENSION 07/11/2017 KIEL MEZA [employer] M[employer] SHARPENER Ot R06.09 OTHER FORMS OF DYSPNEA 07/11/2017 KIEL MEZA [employer] M[employer] SHARPENER Ot R07.9 CHEST PAIN, UNSPECIFIED 07/20/2017 TIFFANIE CAMPOS [employer] MEMBER Ot 414.00 CORON ATHEROSCLER NOS TYPE VESSEL, NATIV 07/20/2017 TERRA MCADAMS FACC, ALI FACP CCDS Ot 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 07/20/2017 TERRA AGUILERAC, ALI FACP CCDS Ot 397.0 TRICUSPID VALVE DISEASE 07/20/2017 TERRA MCADAMS FACC, ALI FACP CCDS Ot 414.00 CORON ATHEROSCLER NOS TYPE VESSEL, NATIV 07/20/2017 TERRA AGUILERAC, ALI FACP CCDS Ot 443.9 PERIPH VASCULAR DIS NOS 07/20/2017 TERRA MD FACC, ALI FACP CCDS Ot 785.2 CARDIAC MURMURS NEC 07/20/2017 KIEL MEZA [employer] SHARPENER Ot I 10 ESSENTIAL (PRIMARY) HYPERTENSION 07/20/2017 KIEL MEZA [employer] SHARPENER Ot R06.09 OTHER FORMS OF DYSPNEA 07/20/2017 KIEL MEZA [employer] SHARPENER Ot R07.9 CHEST PAIN, UNSPECIFIED 07/25/2017 KIEL MEZA [employer] SHARPENER Ot M79.604 PAIN IN RIGHT LEG 07/25/2017 KIEL MEZA [employer] SHARPENER Ot M79.605 PAIN IN LEFT LEG 07/25/2017 KIEL MEZA [employer] SHARPENER Ot Z53.29 PROC/TRTMT NOT CRD OUT BEC PT DECISION F 01/15/2018 TIFFANIE CAMPOS [employer] MEMBER Ot 414.00 CORON ATHEROSCLER NOS TYPE VESSEL, [...] 785.2 CARDIAC MURMURS NEC 01/15/2018 LUCIOKIEL BESS [employer] MOWER SHARPENER Ot I 10 ESSENTIAL (PRIMARY) HYPERTENSION 01/15/2018 LUCIOKIEL BESS LA[employer] MOWER SHARPENER Ot R06.09 OTHER FORMS OF DYSPNEA 01/15/2018 LUCIOKIEL BESS [employer] MOWER SHARPENER Ot R07.9 CHEST PAIN, UNSPECIFIED 01/18/2018 TIFFANIE CAMPOS [employer] MEMBER Ot 414.00 CORON ATHEROSCLER NOS TYPE VESSEL, NATIV 01/18/2018 TERRA MCADAMS FACC, ALI FACP CCDS Ot 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 01/18/2018 TERRA AGUILERAC, ALI FACP CCDS Ot 397.0 TRICUSPID VALVE DISEASE 01/18/2018 TERRA AGUILERAC, ALI FACP CCDS Ot 414.00 CORON ATHEROSCLER NOS TYPE VESSEL, NATIV 01/18/2018 TERRA MCADAMS FACC, ALI FACP CCDS Ot 443.9 PERIPH VASCULAR DIS NOS 01/18/2018 TERAR MCADAMS FACC, COBY ZUNIGA CCDS Ot 785.2 CARDIAC MURMURS NEC 01/18/2018 BAIMA, KIEL L [employer] SHARPENER Ot I 10 ESSENTIAL (PRIMARY) HYPERTENSION 01/18/2018 BAIMA, KIEL L [employer] SHARPENER Ot R06.09 OTHER FORMS OF DYSPNEA 01/18/2018 BAIMA, KIEL L [employer] SHARPENER Ot R07.9 CHEST PAIN, UNSPECIFIED 01/21/2018 BAIMA, KIEL L [employer] MOWER SHARPENER Ot E78.5 HYPERLIPIDEMIA, UNSPECIFIED 01/21/2018 BAIMA, KIEL L [employer] MOWER SHARPENER Ot I 10 ESSENTIAL (PRIMARY) HYPERTENSION 01/21/2018 BAIMA, KIEL L [employer] M[employer] SHARPENER Ot I73.9 PERIPHERAL VASCULAR DISEASE, UNSPECIFIED 01/21/2018 BAIMA, KIEL L LA[employer] MOWER SHARPENER Ot I77.9 DISORDER OF ARTERIES AND ARTERIOLES, UNS 01/21/2018 BAIMA, KIEL L LA[employer] MOWER SHARPENER Ot R06.09 OTHER FORMS OF DYSPNEA 01/21/2018 BAIMA, KIEL L [employer] MOWER SHARPENER Ot Z98.890 OTHER SPECIFIED POSTPROCEDURAL STATES 02/14/2018 BAIMA, KIEL L [employer] MOWER SHARPENER Ot E78.5 HYPERLIPIDEMIA, UNSPECIFIED 02/14/2018 BAIMA, KIEL L [employer] M[employer] SHARPENER Ot I 10 ESSENTIAL (PRIMARY) HYPERTENSION 02/14/2018 BAIMA, KIEL L LA[employer] MOWER SHARPENER Ot I73.9 PERIPHERAL VASCULAR DISEASE, UNSPECIFIED 02/14/2018 BAIMA, KIEL L LA[employer] MOWER SHARPENER Ot I77.9 DISORDER OF ARTERIES AND ARTERIOLES, UNS 02/14/2018 BAIMA, KIEL L LA[employer] MOWER SHARPENER Ot R06.09 OTHER FORMS OF DYSPNEA 02/14/2018 BAIMA, KIEL L LA[employer] MOWER SHARPENER Ot Z98.890 OTHER SPECIFIED POSTPROCEDURAL STATES 02/19/2018 TERRA MCADAMS FACC, COBY AGUILERAP CCDS Ot E78.2 MIXED HYPERLIPIDEMIA 02/19/2018 TERRA MCADAMS FACC, COBY FACP CCDS Ot G47.33 OBSTRUCTIVE SLEEP APNEA (ADULT) (PEDIATR 02/19/2018 TERRA MCADAMS FACC, COBY FACP CCDS Ot I10 ESSENTIAL (PRIMARY) HYPERTENSION 02/19/2018 TERRA MCADAMS FACC, COBY FACP CCDS Ot I25.10 ATHSCL HEART DISEASE OF [place] CORONARY 02/19/2018 TERRA MCADAMS FACC, ALI FACP CCDS Ot I34.0 NONRHEUMATIC MITRAL (VALVE) INSUFFICIENC 02/19/2018 TERRA MCADAMS FACC, ALI FACP CCDS Ot I65.23 OCCLUSION AND STENOSIS OF [place]IL[place]AL [place] 02/19/2018 TERRA MCADAMS FACC, ALI FACP CCDS Ot I70.0 ATHEROSCLEROSIS OF [place] 02/19/2018 TERRA MCADAMS FACC, ALI FACP CCDS Ot I70.1 ATHEROSCLEROSIS OF RENAL ARTERY 02/19/2018 TERRA MCADAMS FACC, ALI FACP CCDS Ot I70.213 ATHSCL [place] ARTERIES OF EXTRM W INTRMT 02/19/2018 TERRA MCADAMS FACC, ALI FACP CCDS Ot Z79.82 LENS COATER (CURRENT) USE OF ASPIRIN 02/19/2018 TERRA AGUILERAC, ALI FACP CCDS Ot Z79.899 OTHER LENS COATER (CURRENT) DRUG THERAPY 02/19/2018 TERRA MCADAMS FACC, ALI FACP CCDS Ot Z95.820 PERIPHERAL VASCULAR ANGIOPLASTY STATUS W 02/21/2018 TERRA MCADAMS FACC, ALI FACP CCDS Ot E78.2 MIXED HYPERLIPIDEMIA 02/21/2018 TERRA MCADAMS FACC, ALI FACP CCDS Ot G47.33 OBSTRUCTIVE SLEEP APNEA (ADULT) (PEDIATR 02/21/2018 TERRA MCADAMS FACC, ALI FACP CCDS Ot I10 ESSENTIAL (PRIMARY) HYPERTENSION 02/21/2018 TERAR MCADAMS FACC, ALI FACP CCDS Ot I25.10 ATHSCL HEART DISEASE OF [place] CORONARY 02/21/2018 TERRA MCADAMS FACC, ALI FACP CCDS Ot I34.0 NONRHEUMATIC MITRAL (VALVE) INSUFFICIENC 02/21/2018 TERRA MCADAMS FACC, ALI FACP CCDS Ot I65.23 OCCLUSION AND STENOSIS OF [place] 02/21/2018 TERRA AGUILERAC, ALI FACP CCDS Ot I70.0 ATHEROSCLEROSIS OF [place] 02/21/2018 TERRA MCADAMS FACC, ALI FACP CCDS Ot I70.1 ATHEROSCLEROSIS OF RENAL ARTERY 02/21/2018 TERRA MCADAMS FACC, ALI FACP CCDS Ot I70.213 ATHSCL [place] ARTERIES OF EXTRM W INTRMT 02/21/2018 TERRA MCADAMS FACC, ALI FACP CCDS Ot Z79.82 LENS COATER (CURRENT) USE OF ASPIRIN 02/21/2018 TERRA AGUILERAC, ALI FACP CCDS Ot Z79.899 OTHER LENS COATER (CURRENT) DRUG THERAPY 02/21/2018 TERRA AGUILERAC, ALI FACP CCDS Ot Z95.820 PERIPHERAL VASCULAR ANGIOPLASTY STATUS W 04/01/2018 TERRA MCADAMS FACC, ALI FACP CCDS Ot I08.1 RHEUMATIC DISORDERS OF BOTH MITRAL AND T 04/01/2018 TERRA AGUILERAC, ALI FACP CCDS Ot I25.10 ATHSCL HEART DISEASE OF [place] CORONARY 04/01/2018 TERRA MCADAMS FACC, ALI FACP CCDS Ot I73.9 PERIPHERAL VASCULAR DISEASE, UNSPECIFIED 04/01/2018 TERRA AGUILERAC, ALI FACP CCDS Ot R06.02 SHORTNESS OF BREATH 04/01/2018 TERRA AGUILERAC, ALI FACP CCDS Ot Z72.0 TOBACCO USE 04/23/2018 TERRA AGUILERAC, ALI FACP CCDS Ot I08.1 RHEUMATIC DISORDERS OF BOTH MITRAL AND T 04/23/2018 TERRA MCADAMS FACC, ALI FACP CCDS Ot I25.10 ATHSCL HEART DISEASE OF [place] CORONARY 04/23/2018 TERRA AGUILERA, ALI FACP CCDS Ot I73.9 PERIPHERAL VASCULAR DISEASE, UNSPECIFIED 04/23/2018 TERRA AGUILERAC, ALI FACP CCDS Ot R06.02 SHORTNESS OF BREATH 04/23/2018 TERRA AGUILERA, ALI FACP CCDS Ot Z72.0 TOBACCO USE 04/23/2018 TERRA MCADAMS FACC, ALI FACP CCDS Ot E78.5 HYPERLIPIDEMIA, UNSPECIFIED 04/23/2018 TERRA MCADAMS FACC, ALI FACP CCDS Ot F17.210 NICOTINE DEPENDENCE, CIGARETTES, UNCOMPL 04/23/2018 TERRA AGUILERA, ALI FACP CCDS Ot I10 ESSENTIAL (PRIMARY) HYPERTENSION 04/23/2018 TERRA AGUILERA, ALI FACP CCDS Ot I25.10 ATHSCL HEART DISEASE OF [place] CORONARY 04/23/2018 TERRA CMADAMS FACC, ALI FACP CCDS Ot I34.0 NONRHEUMATIC MITRAL (VALVE) INSUFFICIENC 04/23/2018 TERRA MCADAMS FACC, ALI FACP CCDS Ot I65.23 OCCLUSION AND STENOSIS OF [place] 04/23/2018 TERRA AGUILERAC, ALI FACP CCDS Ot I73.9 PERIPHERAL VASCULAR DISEASE, UNSPECIFIED 04/23/2018 TERRA AGUILERAC, ALI FACP CCDS Ot J44.9 CHRONIC OBSTRUCTIVE PULMONARY DISEASE, U 04/23/2018 TERRA MCADAMS FACC, ALI FACP CCDS Ot Z79.82 RETIREMENT (CURRENT) USE OF ASPIRIN 04/23/2018 TERRA MCADAMS FACC, ALI FACP CCDS Ot Z79.899 OTHER LENS COATER (CURRENT) DRUG THERAPY 04/25/2018 TERRA AGUILERAC, ALI FACP CCDS Ot E78.5 HYPERLIPIDEMIA, UNSPECIFIED 04/25/2018 TERRA MCADAMS FACC, ALI FACP CCDS Ot F17.210 NICOTINE DEPENDENCE, CIGARETTES, UNCOMPL 04/25/2018 TERRA MCADAMS FACC, ALI FACP CCDS Ot I10 ESSENTIAL (PRIMARY) HYPERTENSION 04/25/2018 TERRA MCADAMS FACC, ALI FACP CCDS Ot I25.10 ATHSCL HEART DISEASE OF [place] CORONARY 04/25/2018 TERRA MCADAMS FACC, ALI FACP CCDS Ot I34.0 NONRHEUMATIC MITRAL (VALVE) INSUFFICIENC 04/25/2018 TERRA AGUILERAC, ALI FACP CCDS Ot I65.23 OCCLUSION AND STENOSIS OF [place] 04/25/2018 TERRA AGUILERAC, ALI FACP CCDS Ot I73.9 PERIPHERAL VASCULAR DISEASE, UNSPECIFIED 04/25/2018 TERRA AGUILERAC, ALI FACP CCDS Ot J44.9 CHRONIC OBSTRUCTIVE PULMONARY DISEASE, U 04/25/2018 TERRA MCADAMS FACC, ALI FACP CCDS Ot Z79.82 RETIREMENT (CURRENT) USE OF ASPIRIN 04/25/2018 TERRA AGUILERAC, ALI FACP CCDS Ot Z79.899 OTHER RETIREMENT (CURRENT) DRUG THERAPY 04/29/2018 TERRA AGUILERAC, ALI FACP CCDS Ot E78.5 HYPERLIPIDEMIA, UNSPECIFIED 04/29/2018 TERRA MCADAMS FACC, ALI FACP CCDS Ot F17.210 NICOTINE DEPENDENCE, CIGARETTES, UNCOMPL 04/29/2018 TERRA MCADAMS FACC, ALI FACP CCDS Ot I10 ESSENTIAL (PRIMARY) HYPERTENSION 04/29/2018 TERRA MCADAMS FACC, ALI FACP CCDS Ot I25.10 ATHSCL HEART DISEASE OF [place] CORONARY 04/29/2018 TERRA MCADAMS FACC, ALI FACP CCDS Ot I34.0 NONRHEUMATIC MITRAL (VALVE) INSUFFICIENC 04/29/2018 TERRA MCADAMS FACC, ALI FACP CCDS Ot I65.23 OCCLUSION AND STENOSIS OF [place] 04/29/2018 TERRA MCADAMS FACC, ALI FACP CCDS Ot I73.9 PERIPHERAL VASCULAR DISEASE, UNSPECIFIED 04/29/2018 TERRA MCADAMS FACC, ALI FACP CCDS Ot J44.9 CHRONIC OBSTRUCTIVE PULMONARY DISEASE, U 04/29/2018 TERRA MCADAMS FACC, ALI FACP CCDS Ot Z79.82 RETIREMENT (CURRENT) USE OF ASPIRIN 04/29/2018 TERRA MCADAMS FACC, ALI FACP CCDS Ot Z79.899 OTHER LENS COATER (CURRENT) DRUG THERAPY 04/29/2018 BAIMA, KIEL L LAWN MOWER SHARPENER Ot I 10 ESSENTIAL (PRIMARY) HYPERTENSION 04/29/2018 BAIMA, KIEL L LAWN MOWER SHARPENER Ot I25.10 ATHSCL HEART DISEASE OF [place] CORONARY 04/29/2018 BAIMA, KIEL L LAWN MOWER SHARPENER Ot I34.0 NONRHEUMATIC MITRAL (VALVE) INSUFFICIENC 04/29/2018 BAIMA, KIEL L LAWN MOWER SHARPENER Ot I73.9 PERIPHERAL VASCULAR DISEASE, UNSPECIFIED 04/29/2018 BAIMA, KIEL L LAWN MOWER SHARPENER Ot R06.02 SHORTNESS OF BREATH 04/29/2018 BAIMA, KIEL L LAWN MOWER SHARPENER Ot Z72.0 TOBACCO USE 05/07/2018 BAIMA, KIEL L LAWN MOWER SHARPENER Ot I 10 ESSENTIAL (PRIMARY) HYPERTENSION 05/07/2018 BAIMA, KIEL L LAWN MOWER SHARPENER Ot I25.10 ATHSCL HEART DISEASE OF [place] CORONARY 05/07/2018 BAIMA, KIEL L LAWN MOWER SHARPENER Ot I34.0 NONRHEUMATIC MITRAL (VALVE) INSUFFICIENC 05/07/2018 BAIMA, KIEL L LAWN MOWER SHARPENER Ot I73.9 PERIPHERAL VASCULAR DISEASE, UNSPECIFIED 05/07/2018 BAIMA, KIEL L LAWN MOWER SHARPENER Ot R06.02 SHORTNESS OF BREATH 05/07/2018 BAIMA, KIEL L LAWN MOWER SHARPENER Ot Z72.0 TOBACCO USE 05/16/2018 MARIO MCADAMS, Mayuri PORTER Ot E78 .5 HYPERLIPIDEMIA, UNSPECIFIED 05/16/2018 MARIO MCADAMS, Mayuri PORTER Ot F17.210 NICOTINE DEPENDENCE, CIGARETTES, UNCOMPL 05/16/2018 MARIO MCADAMS, Mayuri PORTER Ot I10 ESSENTIAL (PRIMARY) HYPERTENSION 05/16/2018 Mayuri MARTIN MD Ot I25.10 ATHSCL HEART DISEASE OF [place] CORONARY 05/16/2018 Mayuri MARTIN MD Ot I34 .0 NONRHEUMATIC MITRAL (VALVE) INSUFFICIENC 05/16/2018 Mayuri MARTIN MD Ot I73 .9 PERIPHERAL VASCULAR DISEASE, UNSPECIFIED 05/16/2018 Mayuri MARTIN MD Ot Z79.82 LENS COATER (CURRENT) USE OF ASPIRIN 11/12/2019 BAIMA, KIEL L LAWN MOWER SHARPENER Ot I 10 ESSENTIAL (PRIMARY) HYPERTENSION 11/12/2019 BAIMA, KIEL L LAWN MOWER SHARPENER Ot R06.09 OTHER FORMS OF DYSPNEA 11/12/2019 BAIMA, KIEL L LAWN MOWER SHARPENER Ot R07.9 CHEST PAIN, UNSPECIFIED 11/12/2019 BAIMA, KIEL L LAWN MOWER SHARPENER Ot E78.5 HYPERLIPIDEMIA, UNSPECIFIED 11/12/2019 BAIMA, KIEL L LAWN MOWER SHARPENER Ot I 10 ESSENTIAL (PRIMARY) HYPERTENSION 11/12/2019 BAIMA, KIEL L LAWN MOWER SHARPENER Ot I73.9 PERIPHERAL VASCULAR DISEASE, UNSPECIFIED 11/12/2019 BAIMA, KIEL L LAWN MOWER SHARPENER Ot I77.9 DISORDER OF ARTERIES AND ARTERIOLES, UNS 11/12/2019 BAIMA, KIEL L LAWN MOWER SHARPENER Ot R06.09 OTHER FORMS OF DYSPNEA 11/12/2019 BAIMA, KIEL L LAWN MOWER SHARPENER Ot Z98.890 OTHER SPECIFIED POSTPROCEDURAL STATES 11/12/2019 TERRA MCADAMS FACC, ALI FACP CCDS Ot I08.1 RHEUMATIC DISORDERS OF BOTH MITRAL AND T 11/12/2019 TERRA MCADAMS FACC, ALI FACP CCDS Ot I25.10 ATHSCL HEART DISEASE OF [place] CORONARY 11/12/2019 TERRA MCADAMS FACC, ALI FACP CCDS Ot I73.9 PERIPHERAL VASCULAR DISEASE, UNSPECIFIED 11/12/2019 TERRA MCADAMS FACC, ALI FACP CCDS Ot R06.02 SHORTNESS OF BREATH 11/12/2019 TERRA MCADAMS FACC, ALI FACP CCDS Ot Z72.0 TOBACCO USE 11/12/2019 BAIMA, KIEL L LAWN MOWER SHARPENER Ot I 10 ESSENTIAL (PRIMARY) HYPERTENSION 11/12/2019 BAIMA, KIEL L LAWN MOWER SHARPENER Ot I25.10 ATHSCL HEART DISEASE OF [place] CORONARY 11/12/2019 BAIMA, KIEL L LAWN MOWER SHARPENER Ot I34.0 NONRHEUMATIC MITRAL (VALVE) INSUFFICIENC 11/12/2019 KIEL MEZA LAWN MOWER SHARPENER Ot I73.9 PERIPHERAL VASCULAR DISEASE, UNSPECIFIED 11/12/2019 KIEL MEZA LAWN MOWER SHARPENER Ot R06.02 SHORTNESS OF BREATH 11/12/2019 KIEL MEZA [employer] MOWER SHARPENER Ot Z72.0 TOBACCO USE 11/27/2019 TERRA MCADAMS FACC, ALI FACP CCDS Ot E78.5 HYPERLIPIDEMIA, UNSPECIFIED 11/27/2019 TERRA MCADAMS FACC, ALI FACP CCDS Ot I07.1 RHEUMATIC TRICUSPID INSUFFICIENCY 11/27/2019 TERRA MCADAMS FACC, ALI FACP CCDS Ot I10 ESSENTIAL (PRIMARY) HYPERTENSION 11/27/2019 TERRA AGUILERAC, ALI FACP CCDS Ot I25.10 ATHSCL HEART DISEASE OF [place] CORONARY 11/27/2019 TERRA MCADAMS FACC, ALI FACP CCDS Ot I65.23 OCCLUSION AND STENOSIS OF [place] 11/27/2019 TERRA AGUILERA, ALI FACP CCDS Ot I70.213 ATHSCL [place] ARTERIES OF EXTRM W INTRMT 11/27/2019 TERRA MCADAMS FACC, ALI FACP CCDS Ot J44.9 CHRONIC OBSTRUCTIVE PULMONARY DISEASE, U 11/27/2019 TERRA AGUILERA, ALI FACP CCDS Ot Z72.0 TOBACCO USE 11/27/2019 TERRA MCADAMS [facility], ALI FACP CCDS Ot Z86.73 PRSNL HX OF TIA (TIA), AND CEREB INFRC W 11/27/2019 TERRA AGUILERA, ALI FACP CCDS Ot Z95.0 PRESENCE OF CARDIAC PACEMAKER 11/27/2019 TERRA AGUILERA, ALI FACP CCDS Ot Z98.890 OTHER SPECIFIED POSTPROCEDURAL STATES 12/01/2019 TERRA AGUILERAC, ALI FACP CCDS Ot E78.5 HYPERLIPIDEMIA, UNSPECIFIED 12/01/2019 TERRA AGUILERA, ALI FACP CCDS Ot I10 ESSENTIAL (PRIMARY) HYPERTENSION 12/01/2019 TERRA AGUILERA, ALI FACP CCDS Ot 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.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 12/01/2019 TERRA MCADAMS FACC, ALI FACP CCDS Ot I25.10 ATHSCL HEART DISEASE OF [place] CORONARY 12/01/2019 TERRA MCADAMS FAC, ALI FACP CCDS Ot I65.29 OCCLUSION AND STENOSIS OF UNSPECIFIED CA 12/01/2019 TERRA MD FAC, ALI FACP CCDS Ot I73.9 PERIPHERAL VASCULAR DISEASE, UNSPECIFIED 12/01/2019 TERRA MD FACC, ALI FACP CCDS Ot J43.8 OTHER EMPHYSEMA 12/01/2019 TERRA MD FACC, ALI FACP CCDS Ot Z72.0 TOBACCO USE 12/01/2019 TERRA MD FACC, ALI FACP CCDS Ot Z95.0 PRESENCE OF CARDIAC PACEMAKER 12/02/2019 TERRA MD FAC, ALI FACP CCDS Ot E78.5 HYPERLIPIDEMIA, UNSPECIFIED 12/02/2019 TERRA MD FACC, ALI FACP CCDS Ot I07.1 RHEUMATIC TRICUSPID INSUFFICIENCY 12/02/2019 TERRA MCADAMS FAC, ALI FACP CCDS Ot I10 ESSENTIAL (PRIMARY) HYPERTENSION 12/02/2019 TERRA MD FAC, ALI FACP CCDS Ot I25.10 ATHSCL HEART DISEASE OF [place] CORONARY 12/02/2019 TERRA MCADAMS FAC, ALI FACP CCDS Ot I65.23 OCCLUSION AND STENOSIS OF [place] 12/02/2019 TERRA MCADAMS FAC, ALI FACP CCDS Ot I70.213 ATHSCL [place] ARTERIES OF EXTRM W INTRMT 12/02/2019 TERRA MCADAMS FAC, ALI FACP CCDS Ot J44.9 CHRONIC OBSTRUCTIVE PULMONARY DISEASE, U 12/02/2019 TERRA MCADAMS FAC, ALI FACP CCDS Ot Z72.0 TOBACCO USE 12/02/2019 TERRA MCADAMS [facility], ALI FACP CCDS Ot Z86.73 PRSNL HX OF TIA (TIA), AND CEREB INFRC W 12/02/2019 TERRA MCADAMS FAC, ALI FACP CCDS Ot Z95.0 PRESENCE OF CARDIAC PACEMAKER 12/02/2019 TERRA MCADAMS FAC, ALI FACP CCDS Ot Z98.890 OTHER SPECIFIED POSTPROCEDURAL STATES Procedures Code [place] [address] EKG, TRACING (IN-HOUSE) 12/03/2012 32093 ROUT INE VENIPUNCTURE 12/09/2012 98181 A1C (IN-HOUSE) 12/09/2012 86453 CMP 12/09/2012 60192 LIPI D PANEL 12/09/[id number] GF R CALC (RESULT ONLY) 12/09/2012 CARDI BAQI R, SMILEY 12/13/2012 74261 NUCL EAR STRESS TESTING 01/02/2013 65077 ECHO 2D 01/02/2013 19101 OXIMETRY 01/14/2013 56939 PULM ONARY FUNCTION TEST (IN- HOUSE) 06/27/2013 96684 RESP IRATORY FLOW VOLUME LOOP 06/27/2013 54840 PULM ONARY EDUCATION 06/27/2013 12087 ECHO 2D 11/05/2013 03423 JOSE 11/05/2013 58293 ROUT INE VENIPUNCTURE 11/06/2013 [id number] GF R CALC (RESULT ONLY) 11/06/2013 43768 CMP 11/06/2013 06894 LIPI D PANEL 11/06/2013 56083 MAGNESIUM 11/06/2013 90703 TSH 11/06/2013 J3420 B12 VITAMIN INJECTION 11/17/2013 80414 THER APUTIC INJ SQ/IM 11/17/2013 62108 OXIMETRY 02/05/2014 45771 LEFT HEART CATH 06/11/2014 73748 US C AROTID DOPPLER 06/11/2014 38676 OXIMETRY 06/11/2014 OTOLARYNG ALLA NDIAYE 2014 21449 OXIMETRY 08/27/2014 2000F BLOO D PRESSURE CHECK 10/26/2014 39500 ROUT INE VENIPUNCTURE 10/26/2014 39825 CMP 10/26/2014 55553 LIPI D PANEL 10/26/2014 87175 CBC 10/26/2014 THYANA THY ROID ANALYZER 10/26/2014 Results Test Result Range Complete blood count (CBC) with automate d white blood cell (WBC) differential - 06/12/16 15:30 Blood leukocytes automated count (number/volume) 7.1 10*3/uL 4.3-11.0 Blood erythrocytes automated count (number/volume) 5.06 10*6/uL 4.35-5.85 Venous blood hemoglobin measurement (mass/volume) 15.4 g/dL 13.3-17.7 Blood hematocrit (volume fraction) 44 % 40-54 Automated erythrocyte mean corpuscular volume 86 [ foz_us] 80-99 Automated erythrocyte mean corpuscular h emoglobin (mass per erythrocyte) 30 pg 25-34 Automated erythrocyte mean corpuscular h emoglobin concentration measurement (mass/volume) 35 g/dL 32-36 Automated erythrocyte distribution width ratio 13. 2 % 10.0- 14.5 Automated blood platelet count (count/volume) 159 10*3/uL [...] 10*3 1.0-4.0 Blood monocytes automated count (number/volume) 0. 7 10*3 0.0-1.0 Automated eosinophil count 0.3 10*3/uL 0 .0-0.3 Automated blood basophil count (count/volume) 0.0 10*3/uL 0.0-0.1 Comprehensive metabolic panel - 06/12/16 15:30 Serum or plasma sodium measurement (moles/volume) 138 mmol/L 135-145 Serum or plasma potassium measurement (moles/volume) 4.4 mmol/L 3.6-5.0 Serum or plasma chloride measurement (moles/volume) 101 mmol/L 98-107 Carbon dioxide 29 mmol/L 21-32 Serum or plasma anion gap determination (moles/volume) 8 mmol/L 5-14 Serum or plasma urea nitrogen measurement (mass/volume ) 17 mg/dL 7-18 Serum or plasma creatinine measurement (mass/volume) 1.05 mg/dL 0.60-1.30 Serum or plasma urea nitrogen/creatinine mass ratio 16 NRG Serum or plasma creatinine measurement w ith calculation of estimated glomerular filtration rate > NRG Serum or plasma glucose measurement (mass/volume) 102 mg/dL 70-105 Serum or plasma calcium measurement (mass/volume) 9.7 mg/dL 8.5-10.1 Serum or plasma total bilirubin measurement (mass/volu me) 0.6 mg/dL 0.1-1.0 Serum or plasma alkaline phosphatase nikki surement (enzymatic activity/volume) 75 U/L 40-136 Serum or plasma aspartate aminotransfera se measurement (enzymatic activity/volume) 43 U/L 5-34 Serum or plasma alanine aminotransferase measurement (enzymatic activity/volume) 26 U/L 0-55 Serum or plasma protein measurement (mass/volume) 7.0 g/dL 6.4-8.2 Serum or plasma albumin measurement (mass/volume) 4.2 g/dL 3.2-4.5 Magnesium - 06/12/16 15:30 Magnesium 2.4 mg/dL 1.8-2.4 Serum or plasma amylase measurement (enz ymatic activity/volume) - 06/12/16 15:30 Serum or plasma amylase measurement (enzymatic activit y/volume) 93 U/L 25-125 Lipase - 06/12/16 15:30 Lipase 53 U/L 8-78 Automated blood complete blood count (he mogram) panel - 08/29/16 07:32 Blood leukocytes automated count (number/volume) 8.6 10*3/uL 4.3-11.0 Blood erythrocytes automated count (number/volume) 5.17 10*6/uL 4.35-5.85 Venous blood hemoglobin measurement (mass/volume) 15.8 g/dL 13.3-17.7 Blood hematocrit (volume fraction) 45 % 40-54 Automated erythrocyte mean corpuscular volume 87 [ foz_us] 80-99 Automated erythrocyte mean corpuscular h emoglobin (mass per erythrocyte) 31 pg 25-34 Automated erythrocyte mean corpuscular h emoglobin concentration measurement (mass/volume) 35 g/dL 32-36 Automated erythrocyte distribution width ratio 13. 1 % 10.0- 14.5 Automated blood platelet count (count/volume) 179 10*3/uL 130-400 Automated blood platelet mean volume measurement 10.7 [foz_us] 7.4-10.4 PT panel in platelet poor plasma by coag ulation assay - 08/29/16 07:32 Prothrombin time (PT) in platelet poor plasma by coagu lation assay 12.6 s 12.2-14.7 INR in platelet poor plasma or blood by coagulation as say 1.0 0.8-1.4 Activated partial thromboplastin time (a PTT) in platelet poor plasma bycoagulation assay - 08/29/16 07:32 Activated partial thromboplastin time (a PTT) in platelet poor plasma bycoagulation assay 30 s 24-35 Comprehensive metabolic panel - 08/29/16 07:32 Serum or plasma sodium measurement (moles/volume) 135 mmol/L 135-145 Serum or plasma potassium measurement (moles/volume) 4.0 mmol/L 3.6-5.0 Serum or plasma chloride measurement (moles/volume) 97 mmol/L 98-107 Carbon dioxide 27 mmol/L 21-32 Serum or plasma anion gap determination (moles/volume) 11 mmol/L 5-14 Serum or plasma urea nitrogen measurement (mass/volume ) 16 mg/dL 7-18 Serum or plasma creatinine measurement (mass/volume) 1.12 mg/dL 0.60-1.30 Serum or plasma urea nitrogen/creatinine mass ratio 14 NRG Serum or plasma creatinine measurement w ith calculation of estimated glomerular filtration rate > NRG Serum or plasma glucose measurement (mass/volume) 106 mg/dL 70-105 Serum or plasma calcium measurement (mass/volume) 9.2 mg/dL 8.5-10.1 Serum or plasma total bilirubin measurement (mass/volu me) 0.5 mg/dL 0.1-1.0 Serum or plasma alkaline phosphatase nikki surement (enzymatic activity/volume) 86 U/L 40-136 Serum or plasma aspartate aminotransfera se measurement (enzymatic activity/volume) 46 U/L 5-34 Serum or plasma alanine aminotransferase measurement (enzymatic activity/volume) 23 U/L 0-55 Serum or plasma protein measurement (mass/volume) 7.3 g/dL 6.4-8.2 Serum or plasma albumin measurement (mass/volume) 4.4 g/dL 3.2-4.5 Lipid 1996 panel - 08/29/16 07:32 Serum or plasma triglyceride measurement (mass/volume) 221 mg/dL <150 Serum or plasma cholesterol measurement (mass/volume) 174 mg/dL < 200 Serum or plasma cholesterol in HDL measurement (mass/v olume) 34 mg/dL 40-60 Cholesterol in LDL [mass/volume] in serum or plasma by direct assay 107 mg/dL 1-129 Serum or plasma cholesterol in VLDL measurement (mass/ volume) 44 mg/dL 5-40 Methicillin resistant Staphylococcus aur eus (MRSA) screening culture - 08/29/16 07:32 Methicillin resistant Staphylococcus aureus (MRSA) scr eening culture NEG NRG Complete blood count (CBC) with automate d white blood cell (WBC) differential - 09/09/16 00:43 Blood leukocytes automated count (number/volume) 12.9 10*3/uL 4.3-11.0 Blood erythrocytes automated count (number/volume) 5.13 10*6/uL 4.35-5.85 Venous blood hemoglobin measurement (mass/volume) 15.5 g/dL 13.3-17.7 Blood hematocrit (volume fraction) 45 % 40-54 Automated erythrocyte mean corpuscular volume 88 [ foz_us] 80-99 Automated erythrocyte mean corpuscular h emoglobin (mass per erythrocyte) 30 pg 25-34 Automated erythrocyte mean corpuscular h emoglobin concentration measurement (mass/volume) 35 g/dL 32-36 Automated erythrocyte distribution width ratio 13. 0 % 10.0- 14.5 Automated blood platelet count (count/volume) 207 10*3/uL [...] 10*3 1.0-4.0 Blood monocytes automated count (number/volume) 1. 4 10*3 0.0-1.0 Automated eosinophil count 0.3 10*3/uL 0 .0-0.3 Automated blood basophil count (count/volume) 0.0 10*3/uL 0.0-0.1 PT panel in platelet poor plasma by coag ulation assay - 09/09/16 00:43 Prothrombin time (PT) in platelet poor plasma by coagu lation assay 13.1 s 12.2-14.7 INR in platelet poor plasma or blood by coagulation as say 1.0 0.8-1.4 Activated partial thromboplastin time (a PTT) in platelet poor plasma bycoagulation assay - 09/09/16 00:43 Activated partial thromboplastin time (a PTT) in platelet poor plasma bycoagulation assay 33 s 24-35 Comprehensive metabolic panel - 11/26/16 00:43 Serum or plasma sodium measurement (moles/volume) 134 mmol/L 135-145 Serum or plasma potassium measurement (moles/volume) 4.1 mmol/L 3.6-5.0 Serum or plasma chloride measurement (moles/volume) 95 mmol/L 98-107 Carbon dioxide 27 mmol/L 21-32 Serum or plasma anion gap determination (moles/volume) 12 mmol/L 5-14 Serum or plasma urea nitrogen measurement (mass/volume ) 12 mg/dL 7-18 Serum or plasma creatinine measurement (mass/volume) 1.14 mg/dL 0.60-1.30 Serum or plasma urea nitrogen/creatinine mass ratio 11 NRG Serum or plasma creatinine measurement w ith calculation of estimated glomerular filtration rate > NRG Serum or plasma glucose measurement (mass/volume) 109 mg/dL 70-105 Serum or plasma calcium measurement (mass/volume) 9.6 mg/dL 8.5-10.1 Serum or plasma total bilirubin measurement (mass/volu me) 1.2 mg/dL 0.1-1.0 Serum or plasma alkaline phosphatase nikki surement (enzymatic activity/volume) 101 U/L 40-136 Serum or plasma aspartate aminotransfera se measurement (enzymatic activity/volume) 43 U/L 5-34 Serum or plasma alanine aminotransferase measurement (enzymatic activity/volume) 20 U/L 0-55 Serum or plasma protein measurement (mass/volume) 7.6 g/dL 6.4-8.2 Serum or plasma albumin measurement (mass/volume) 4.4 g/dL 3.2-4.5 Magnesium - 09/09/16 00:43 Magnesium 2.1 mg/dL 1.8-2.4 Serum or plasma creatine kinase measurem ent (enzymatic activity/volume) - 09/09/16 00:43 Serum or plasma creatine kinase measurem ent (enzymatic activity/volume) 169 U/L 30-200 Serum or plasma creatine kinase MB measu rement (enzymatic activity/volume) - 09/09/16 00:43 Serum or plasma creatine kinase MB measu rement (enzymatic activity/volume) 4.6 ng/mL <6.6 Serum or plasma troponin i.cardiac measu rement (mass/volume) - 09/09/16 00:43 Serum or plasma troponin i.cardiac measurement (mass/v olume) < ng/mL <0.30 Serum or plasma amylase measurement (enz ymatic activity/volume) - 09/09/16 00:43 Serum or plasma amylase measurement (enzymatic activit y/volume) 106 U/L 25-125 Lipase - 09/09/16 00:43 Lipase 236 U/L 8-78 Serum or plasma lithium measurement (mol es/volume) - 09/09/16 00:43 BNP level 32.8 pg/mL <100.0 Complete blood count (CBC) with automate d white blood cell (WBC) differential - 09/09/16 03:56 Blood leukocytes automated count (number/volume) 11.7 10*3/uL 4.3-11.0 Blood erythrocytes automated count (number/volume) 4.85 10*6/uL 4.35-5.85 Venous blood hemoglobin measurement (mass/volume) 14.8 g/dL 13.3-17.7 Blood hematocrit (volume fraction) 42 % 40-54 Automated erythrocyte mean corpuscular volume 87 [ foz_us] 80-99 Automated erythrocyte mean corpuscular h emoglobin (mass per erythrocyte) 31 pg 25-34 Automated erythrocyte mean corpuscular h emoglobin concentration measurement (mass/volume) 35 g/dL 32-36 Automated erythrocyte distribution width ratio 12. 9 % 10.0- 14.5 Automated blood platelet count (count/volume) 187 10*3/uL [...] 10*3 1.0-4.0 Blood monocytes automated count (number/volume) 1. 0 10*3 0.0-1.0 Automated eosinophil count 0.2 10*3/uL 0 .0-0.3 Automated blood basophil count (count/volume) 0.0 10*3/uL 0.0-0.1 Comprehensive metabolic panel - 09/09/16 03:56 Serum or plasma sodium measurement (moles/volume) 134 mmol/L 135-145 Serum or plasma potassium measurement (moles/volume) 4.7 mmol/L 3.6-5.0 Serum or plasma chloride measurement (moles/volume) 96 mmol/L 98-107 Carbon dioxide 25 mmol/L 21-32 Serum or plasma anion gap determination (moles/volume) 13 mmol/L 5-14 Serum or plasma urea nitrogen measurement (mass/volume ) 15 mg/dL 7-18 Serum or plasma creatinine measurement (mass/volume) 1.29 mg/dL 0.60-1.30 Serum or plasma urea nitrogen/creatinine mass ratio 12 NRG Serum or plasma creatinine measurement w ith calculation of estimated glomerular filtration rate 57 NRG Serum or plasma glucose measurement (mass/volume) 114 mg/dL 70-105 Serum or plasma calcium measurement (mass/volume) 9.3 mg/dL 8.5-10.1 Serum or plasma total bilirubin measurement (mass/volu me) 1.0 mg/dL 0.1-1.0 Serum or plasma alkaline phosphatase nikki surement (enzymatic activity/volume) 91 U/L 40-136 Serum or plasma aspartate aminotransfera se measurement (enzymatic activity/volume) 39 U/L 5-34 Serum or plasma alanine aminotransferase measurement (enzymatic activity/volume) 19 U/L 0-55 Serum or plasma protein measurement (mass/volume) 7.1 g/dL 6.4-8.2 Serum or plasma albumin measurement (mass/volume) 4.1 g/dL 3.2-4.5 Myoglobin, serum - 09/09/16 03:56 Myoglobin, serum 77.8 ng/mL 10.0-92.0 Lipid 1996 panel - 09/09/16 03:56 Serum or plasma triglyceride measurement (mass/volume) 162 mg/dL <150 Serum or plasma cholesterol measurement (mass/volume) 179 mg/dL < 200 Serum or plasma cholesterol in HDL measurement (mass/v olume) 34 mg/dL 40-60 Cholesterol in LDL [mass/volume] in serum or plasma by direct assay 115 mg/dL 1-129 Serum or plasma cholesterol in VLDL measurement (mass/ volume) 32 mg/dL 5-40 Serum or plasma troponin i.cardiac measu rement (mass/volume) - 09/09/16 06:45 Serum or plasma troponin i.cardiac measurement (mass/v olume) < ng/mL <0.30 Automated blood complete blood count (he mogram) panel - 09/12/16 08:00 Blood leukocytes automated count (number/volume) 7.5 10*3/uL 4.3-11.0 Blood erythrocytes automated count (number/volume) 4.68 10*6/uL 4.35-5.85 Venous blood hemoglobin measurement (mass/volume) 14.2 g/dL 13.3-17.7 Blood hematocrit (volume fraction) 41 % 40-54 Automated erythrocyte mean corpuscular volume 87 [ foz_us] 80-99 Automated erythrocyte mean corpuscular h emoglobin (mass per erythrocyte) 30 pg 25-34 Automated erythrocyte mean corpuscular h emoglobin concentration measurement (mass/volume) 35 g/dL 32-36 Automated erythrocyte distribution width ratio 12. 8 % 10.0- 14.5 Automated blood platelet count (count/volume) 221 10*3/uL 130-400 Automated blood platelet mean volume measurement 10.6 [foz_us] 7.4-10.4 PT panel in platelet poor plasma by coag ulation assay - 09/12/16 08:00 Prothrombin time (PT) in platelet poor plasma by coagu lation assay 11.6 s 12.2-14.7 INR in platelet poor plasma or blood by coagulation as say 0.9 0.8-1.4 Activated partial thromboplastin time (a PTT) in platelet poor plasma bycoagulation assay - 09/12/16 08:00 Activated partial thromboplastin time (a PTT) in platelet poor plasma bycoagulation assay 33 s 24-35 Comprehensive metabolic panel - 09/12/16 08:00 Serum or plasma sodium measurement (moles/volume) 136 mmol/L 135-145 Serum or plasma potassium measurement (moles/volume) 3.7 mmol/L 3.6-5.0 Serum or plasma chloride measurement (moles/volume) 102 mmol/L 98-107 Carbon dioxide 23 mmol/L 21-32 Serum or plasma anion gap determination (moles/volume) 11 mmol/L 5-14 Serum or plasma urea nitrogen measurement (mass/volume ) 14 mg/dL 7-18 Serum or plasma creatinine measurement (mass/volume) 0.97 mg/dL 0.60-1.30 Serum or plasma urea nitrogen/creatinine mass ratio 14 NRG Serum or plasma creatinine measurement w ith calculation of estimated glomerular filtration rate > NRG Serum or plasma glucose measurement (mass/volume) 114 mg/dL 70-105 Serum or plasma calcium measurement (mass/volume) 9.0 mg/dL 8.5-10.1 Serum or plasma total bilirubin measurement (mass/volu me) 0.4 mg/dL 0.1-1.0 Serum or plasma alkaline phosphatase nikki surement (enzymatic activity/volume) 82 U/L 40-136 Serum or plasma aspartate aminotransfera se measurement (enzymatic activity/volume) 44 U/L 5-34 Serum or plasma alanine aminotransferase measurement (enzymatic activity/volume) 22 U/L 0-55 Serum or plasma protein measurement (mass/volume) 6.9 g/dL 6.4-8.2 Serum or plasma albumin measurement (mass/volume) 4.0 g/dL 3.2-4.5 Lipid 1996 panel - 09/12/16 08:00 Serum or plasma triglyceride measurement (mass/volume) 168 mg/dL <150 Serum or plasma cholesterol measurement (mass/volume) 165 mg/dL < 200 Serum or plasma cholesterol in HDL measurement (mass/v olume) 27 mg/dL 40-60 Cholesterol in LDL [mass/volume] in serum or plasma by direct assay 110 mg/dL 1-129 Serum or plasma cholesterol in VLDL measurement (mass/ volume) 34 mg/dL 5-40 Methicillin resistant Staphylococcus aur eus (MRSA) screening culture - 09/12/16 08:00 Methicillin resistant Staphylococcus aureus (MRSA) scr eening culture NEG NRG Activated partial thromboplastin time (a PTT) in platelet poor plasma bycoagulation assay - 09/12/16 12:40 Activated partial thromboplastin time (a PTT) in platelet poor plasma bycoagulation assay > s 24-35 Activated partial thromboplastin time (a PTT) in platelet poor plasma bycoagulation assay - 09/12/16 14:16 Activated partial thromboplastin time (a PTT) in platelet poor plasma bycoagulation assay 56 s 24-35 Automated blood complete blood count (he mogram) panel - 07/10/17 09:30 Blood leukocytes automated count (number/volume) 7.9 10*3/uL 4.3-11.0 Blood erythrocytes automated count (number/volume) 4.94 10*6/uL 4.35-5.85 Venous blood hemoglobin measurement (mass/volume) 15.2 g/dL 13.3-17.7 Blood hematocrit (volume fraction) 44 % 40-54 Automated erythrocyte mean corpuscular volume 90 [ foz_us] 80-99 Automated erythrocyte mean corpuscular h emoglobin (mass per erythrocyte) 31 pg 25-34 Automated erythrocyte mean corpuscular h emoglobin concentration measurement (mass/volume) 34 g/dL 32-36 Automated erythrocyte distribution width ratio 13. 7 % 10.0- 14.5 Automated blood platelet count (count/volume) 137 10*3/uL 130-400 Automated blood platelet mean volume measurement 11.6 [foz_us] 7.4-10.4 PT panel in platelet poor plasma by coag ulation assay - 07/10/17 09:30 Prothrombin time (PT) in platelet poor plasma by coagu lation assay 11.9 s 12.2-14.7 INR in platelet poor plasma or blood by coagulation as say 0.9 0.8-1.4 Activated partial thromboplastin time (a PTT) in platelet poor plasma bycoagulation assay - 07/10/17 09:30 Activated partial thromboplastin time (a PTT) in platelet poor plasma bycoagulation assay 29 s 24-35 Comprehensive metabolic panel - 07/10/17 09:30 Serum or plasma sodium measurement (moles/volume) 138 mmol/L 135-145 Serum or plasma potassium measurement (moles/volume) 3.7 mmol/L 3.6-5.0 Serum or plasma chloride measurement (moles/volume) 102 mmol/L 98-107 Carbon dioxide 26 mmol/L 21-32 Serum or plasma anion gap determination (moles/volume) 10 mmol/L 5-14 Serum or plasma urea nitrogen measurement (mass/volume ) 18 mg/dL 7-18 Serum or plasma creatinine measurement (mass/volume) 1.07 mg/dL 0.60-1.30 Serum or plasma urea nitrogen/creatinine mass ratio 17 NRG Serum or plasma creatinine measurement w ith calculation of estimated glomerular filtration rate > NRG Serum or plasma glucose measurement (mass/volume) 104 mg/dL 70-105 Serum or plasma calcium measurement (mass/volume) 9.4 mg/dL 8.5-10.1 Serum or plasma total bilirubin measurement (mass/volu me) 0.7 mg/dL 0.1-1.0 Serum or plasma alkaline phosphatase nikki surement (enzymatic activity/volume) 88 U/L 40-136 Serum or plasma aspartate aminotransfera se measurement (enzymatic activity/volume) 42 U/L 5-34 Serum or plasma alanine aminotransferase measurement (enzymatic activity/volume) 20 U/L 0-55 Serum or plasma protein measurement (mass/volume) 7.6 g/dL 6.4-8.2 Serum or plasma albumin measurement (mass/volume) 4.3 g/dL 3.2-4.5 Lipid 1996 panel - 07/10/17 09:30 Serum or plasma triglyceride measurement (mass/volume) 150 mg/dL <150 Serum or plasma cholesterol measurement (mass/volume) 166 mg/dL < 200 Serum or plasma cholesterol in HDL measurement (mass/v olume) 35 mg/dL 40-60 Cholesterol in LDL [mass/volume] in serum or plasma by direct assay 109 mg/dL 1-129 Serum or plasma cholesterol in VLDL measurement (mass/ volume) 30 mg/dL 5-40 Methicillin resistant Staphylococcus aur eus (MRSA) screening culture - 07/10/17 09:30 Methicillin resistant Staphylococcus aureus (MRSA) scr eening culture NEG NRG LIPID PANEL - 11/29/17 09:14 CHOLESTEROL, TOTAL 150 mg/dL <200 HDL CHOLESTEROL 37 mg/dL >40 TRIGLYCERIDES 147 mg/dL <150 LDL-CHOLESTEROL 89 mg/dL (calc) NR CHOL/HDLC RATIO 4.1 (calc) <5.0 NON HDL CHOLESTEROL 113 mg/dL (calc) <13 0 CMP - 11/29/17 09:14 GLUCOSE 97 mg/dL 65-99 UREA NITROGEN (BUN) 16 mg/dL 7-25 CREATININE 1.06 mg/dL 0.70-1.25 eGFR NON-AFR. GABONESE 75 mL/min/1.73m2 > OR = 60 eGFR 87 mL/min/1.73m2 > OR = 60 BUN/CREATININE RATIO NOT APPLICABLE (calc) 6-22 SODIUM 139 mmol/L 135-146 POTASSIUM 4.0 mmol/L 3.5-5.3 CHLORIDE 100 mmol/L 98-110 CARBON DIOXIDE 31 mmol/L 20-31 CALCIUM 9.1 mg/dL 8.6-10.3 PROTEIN, TOTAL 6.5 g/dL 6.1-8.1 ALBUMIN 4.4 g/dL 3.6-5.1 GLOBULIN 2.1 g/dL (calc) 1.9-3.7 ALBUMIN/GLOBULIN RATIO 2.1 (calc) 1.0-2. 5 BILIRUBIN, TOTAL 0.6 mg/dL 0.2-1.2 ALKALINE PHOSPHATASE 52 U/L 40-115 AST 43 U/L 10-35 ALT 19 U/L 9-46 Automated blood complete blood count (he mogram) panel - 02/19/18 07:03 Blood leukocytes automated count (number/volume) 8.0 10*3/uL 4.3-11.0 Blood erythrocytes automated count (number/volume) 5.16 10*6/uL 4.35-5.85 Venous blood hemoglobin measurement (mass/volume) 16.1 g/dL 13.3-17.7 Blood hematocrit (volume fraction) 46 % 40-54 Automated erythrocyte mean corpuscular volume 88 [ foz_us] 80-99 Automated erythrocyte mean corpuscular h emoglobin (mass per erythrocyte) 31 pg 25-34 Automated erythrocyte mean corpuscular h emoglobin concentration measurement (mass/volume) 35 g/dL 32-36 Automated erythrocyte distribution width ratio 12. 9 % 10.0- 14.5 Automated blood platelet count (count/volume) 134 10*3/uL 130-400 Automated blood platelet mean volume measurement 11.2 [foz_us] 7.4-10.4 PT panel in platelet poor plasma by coag ulation assay - 02/19/18 07:03 Prothrombin time (PT) in platelet poor plasma by coagu lation assay 12.0 s 12.2-14.7 INR in platelet poor plasma or blood by coagulation as say 0.9 0.8-1.4 Activated partial thromboplastin time (a PTT) in platelet poor plasma bycoagulation assay - 02/19/18 07:03 Activated partial thromboplastin time (a PTT) in platelet poor plasma bycoagulation assay 31 s 24-35 Comprehensive metabolic panel - 02/19/18 07:03 Serum or plasma sodium measurement (moles/volume) 140 mmol/L 135-145 Serum or plasma potassium measurement (moles/volume) 4.3 mmol/L 3.6-5.0 Serum or plasma chloride measurement (moles/volume) 105 mmol/L 98-107 Carbon dioxide 28 mmol/L 21-32 Serum or plasma anion gap determination (moles/volume) 7 mmol/L 5-14 Serum or plasma urea nitrogen measurement (mass/volume ) 27 mg/dL 7-18 Serum or plasma creatinine measurement (mass/volume) 1.17 mg/dL 0.60-1.30 Serum or plasma urea nitrogen/creatinine mass ratio 23 NRG Serum or plasma creatinine measurement w ith calculation of estimated glomerular filtration rate > NRG Serum or plasma glucose measurement (mass/volume) 108 mg/dL 70-105 Serum or plasma calcium measurement (mass/volume) 9.4 mg/dL 8.5-10.1 Serum or plasma total bilirubin measurement (mass/volu me) 0.5 mg/dL 0.1-1.0 Serum or plasma alkaline phosphatase nikki surement (enzymatic activity/volume) 57 U/L 40-136 Serum or plasma aspartate aminotransfera se measurement (enzymatic activity/volume) 44 U/L 5-34 Serum or plasma alanine aminotransferase measurement (enzymatic activity/volume) 24 U/L 0-55 Serum or plasma protein measurement (mass/volume) 7.2 g/dL 6.4-8.2 Serum or plasma albumin measurement (mass/volume) 4.4 g/dL 3.2-4.5 Lipid 1996 panel - 02/19/18 07:03 Serum or plasma triglyceride measurement (mass/volume) 251 mg/dL <150 Serum or plasma cholesterol measurement (mass/volume) 156 mg/dL < 200 Serum or plasma cholesterol in HDL measurement (mass/v olume) 34 mg/dL 40-60 Cholesterol in LDL [mass/volume] in serum or plasma by direct assay 81 mg/dL 1-129 Serum or plasma cholesterol in VLDL measurement (mass/ volume) 50 mg/dL 5-40 Methicillin resistant Staphylococcus aur eus (MRSA) screening culture - 02/19/18 07:03 Methicillin resistant Staphylococcus aureus (MRSA) scr eening culture NEG NRG Automated blood complete blood count (he mogram) panel - 04/23/18 10:14 Blood leukocytes automated count (number/volume) 6.4 10*3/uL 4.3-11.0 Blood erythrocytes automated count (number/volume) 4.83 10*6/uL 4.35-5.85 Venous blood hemoglobin measurement (mass/volume) 15.2 g/dL 13.3-17.7 Blood hematocrit (volume fraction) 42 % 40-54 Automated erythrocyte mean corpuscular volume 87 [ foz_us] 80-99 Automated erythrocyte mean corpuscular h emoglobin (mass per erythrocyte) 32 pg 25-34 Automated erythrocyte mean corpuscular h emoglobin concentration measurement (mass/volume) 36 g/dL 32-36 Automated erythrocyte distribution width ratio 12. 7 % 10.0- 14.5 Automated blood platelet count (count/volume) 120 10*3/uL 130-400 Automated blood platelet mean volume measurement 11.5 [foz_us] 7.4-10.4 PT panel in platelet poor plasma by coag ulation assay - 04/23/18 10:14 Prothrombin time (PT) in platelet poor plasma by coagu lation assay 12.6 s 12.2-14.7 INR in platelet poor plasma or blood by coagulation as say 1.0 0.8-1.4 Activated partial thromboplastin time (a PTT) in platelet poor plasma bycoagulation assay - 04/23/18 10:14 Activated partial thromboplastin time (a PTT) in platelet poor plasma bycoagulation assay 29 s 24-35 Comprehensive metabolic panel - 04/23/18 10:14 Serum or plasma sodium measurement (moles/volume) 138 mmol/L 135-145 Serum or plasma potassium measurement (moles/volume) 4.5 mmol/L 3.6-5.0 Serum or plasma chloride measurement (moles/volume) 106 mmol/L 98-107 Carbon dioxide 27 mmol/L 21-32 Serum or plasma anion gap determination (moles/volume) 5 mmol/L 5-14 Serum or plasma urea nitrogen measurement (mass/volume ) 26 mg/dL 7-18 Serum or plasma creatinine measurement (mass/volume) 1.24 mg/dL 0.60-1.30 Serum or plasma urea nitrogen/creatinine mass ratio 21 NRG Serum or plasma creatinine measurement w ith calculation of estimated glomerular filtration rate 59 NRG Serum or plasma glucose measurement (mass/volume) 103 mg/dL 70-105 Serum or plasma calcium measurement (mass/volume) 9.4 mg/dL 8.5-10.1 Serum or plasma total bilirubin measurement (mass/volu me) 0.5 mg/dL 0.1-1.0 Serum or plasma alkaline phosphatase nikki surement (enzymatic activity/volume) 53 U/L 40-136 Serum or plasma aspartate aminotransfera se measurement (enzymatic activity/volume) 43 U/L 5-34 Serum or plasma alanine aminotransferase measurement (enzymatic activity/volume) 20 U/L 0-55 Serum or plasma protein measurement (mass/volume) 7.0 g/dL 6.4-8.2 Serum or plasma albumin measurement (mass/volume) 4.3 g/dL 3.2-4.5 Lipid 1996 panel - 04/23/18 10:14 Serum or plasma triglyceride measurement (mass/volume) 181 mg/dL <150 Serum or plasma cholesterol measurement (mass/volume) 141 mg/dL < 200 Serum or plasma cholesterol in HDL measurement (mass/v olume) 29 mg/dL 40-60 Cholesterol in LDL [mass/volume] in serum or plasma by direct assay 78 mg/dL 1-129 Serum or plasma cholesterol in VLDL measurement (mass/ volume) 36 mg/dL 5-40 Methicillin resistant Staphylococcus aur eus (MRSA) screening culture - 04/23/18 10:14 Methicillin resistant Staphylococcus aureus (MRSA) scr eening culture NEG NRG Automated blood complete blood count (he mogram) panel - 05/16/18 13:51 Blood leukocytes automated count (number/volume) 6.8 10*3/uL 4.3-11.0 Blood erythrocytes automated count (number/volume) 4.95 10*6/uL 4.35-5.85 Venous blood hemoglobin measurement (mass/volume) 15.2 g/dL 13.3-17.7 Blood hematocrit (volume fraction) 43 % 40-54 Automated erythrocyte mean corpuscular volume 87 [ foz_us] 80-99 Automated erythrocyte mean corpuscular h emoglobin (mass per erythrocyte) 31 pg 25-34 Automated erythrocyte mean corpuscular h emoglobin concentration measurement (mass/volume) 36 g/dL 32-36 Automated erythrocyte distribution width ratio 12. 8 % 10.0- 14.5 Automated blood platelet count (count/volume) 126 10*3/uL 130-400 Automated blood platelet mean volume measurement 10.9 [foz_us] 7.4-10.4 PT panel in platelet poor plasma by coag ulation assay - 05/16/18 13:51 Prothrombin time (PT) in platelet poor plasma by coagu lation assay 12.3 s 12.2-14.7 INR in platelet poor plasma or blood by coagulation as say 0.9 0.8-1.4 Comprehensive metabolic panel - 05/16/18 13:51 Serum or plasma sodium measurement (moles/volume) 139 mmol/L 135-145 Serum or plasma potassium measurement (moles/volume) 4.1 mmol/L 3.6-5.0 Serum or plasma chloride measurement (moles/volume) 102 mmol/L 98-107 Carbon dioxide 29 mmol/L 21-32 Serum or plasma anion gap determination (moles/volume) 8 mmol/L 5-14 Serum or plasma urea nitrogen measurement (mass/volume ) 18 mg/dL 7-18 Serum or plasma creatinine measurement (mass/volume) 1.14 mg/dL 0.60-1.30 Serum or plasma urea nitrogen/creatinine mass ratio 16 NRG Serum or plasma creatinine measurement w ith calculation of estimated glomerular filtration rate > NRG Serum or plasma glucose measurement (mass/volume) 86 mg/dL 70-105 Serum or plasma calcium measurement (mass/volume) 9.4 mg/dL 8.5-10.1 Serum or plasma total bilirubin measurement (mass/volu me) 0.6 mg/dL 0.1-1.0 Serum or plasma alkaline phosphatase nikki surement (enzymatic activity/volume) 56 U/L 40-136 Serum or plasma aspartate aminotransfera se measurement (enzymatic activity/volume) 47 U/L 5-34 Serum or plasma alanine aminotransferase measurement (enzymatic activity/volume) 22 U/L 0-55 Serum or plasma protein measurement (mass/volume) 7.0 g/dL 6.4-8.2 Serum or plasma albumin measurement (mass/volume) 4.3 g/dL 3.2-4.5 Methicillin resistant Staphylococcus aur eus (MRSA) screening culture - 05/16/18 14:27 Methicillin resistant Staphylococcus aureus (MRSA) scr eening culture NEG NRG CMP - 07/15/18 09:41 GLUCOSE 107 mg/dL 65-99 UREA NITROGEN (BUN) 17 mg/dL 7-25 CREATININE 1.11 mg/dL 0.70-1.25 eGFR NON-AFR. GABONESE 71 mL/min/1.73m2 > OR = 60 eGFR 82 mL/min/1.73m2 > OR = 60 BUN/CREATININE RATIO NOT APPLICABLE (calc) 6-22 SODIUM 138 mmol/L 135-146 POTASSIUM 4.7 mmol/L 3.5-5.3 CHLORIDE 100 mmol/L 98-110 CARBON DIOXIDE 33 mmol/L 20-32 CALCIUM 9.4 mg/dL 8.6-10.3 PROTEIN, TOTAL 7.1 g/dL 6.1-8.1 ALBUMIN 4.1 g/dL 3.6-5.1 GLOBULIN 3.0 g/dL (calc) 1.9-3.7 ALBUMIN/GLOBULIN RATIO 1.4 (calc) 1.0-2. 5 BILIRUBIN, TOTAL 0.7 mg/dL 0.2-1.2 ALKALINE PHOSPHATASE 107 U/L 40-115 AST 39 U/L 10-35 ALT 20 U/L 9-46 CMP - 08/26/19 11:40 GLUCOSE 86 mg/dL 65-99 UREA NITROGEN (BUN) 20 mg/dL 7-25 CREATININE 1.13 mg/dL 0.70-1.25 eGFR NON-AFR. GABONESE 68 mL/min/1.73m2 > OR = 60 eGFR 79 mL/min/1.73m2 > OR = 60 BUN/CREATININE RATIO NOT APPLICABLE (calc) 6-22 SODIUM 139 mmol/L 135-146 POTASSIUM 4.2 mmol/L 3.5-5.3 CHLORIDE 100 mmol/L 98-110 CARBON DIOXIDE 33 mmol/L 20-32 CALCIUM 9.5 mg/dL 8.6-10.3 PROTEIN, TOTAL 7.3 g/dL 6.1-8.1 ALBUMIN 4.6 g/dL 3.6-5.1 GLOBULIN 2.7 g/dL (calc) 1.9-3.7 ALBUMIN/GLOBULIN RATIO 1.7 (calc) 1.0-2. 5 BILIRUBIN, TOTAL 0.6 mg/dL 0.2-1.2 ALKALINE PHOSPHATASE 61 U/L 40-115 AST 47 U/L 10-35 ALT 26 U/L 9-46 [facility] - 03/12/20 13:57 GLUCOSE 99 mg/dL 65-99 UREA NITROGEN (BUN) 20 mg/dL 7-25 CREATININE 1.07 mg/dL 0.70-1.25 eGFR NON-AFR. GABONESE 73 mL/min/1.73m2 > OR = 60 eGFR 85 mL/min/1.73m2 > OR = 60 BUN/CREATININE RATIO NOT APPLICABLE (calc) 6-22 SODIUM 142 mmol/L 135-146 POTASSIUM 3.9 mmol/L 3.5-5.3 CHLORIDE 102 mmol/L 98-110 CARBON DIOXIDE 30 mmol/L 20-32 CALCIUM 8.8 mg/dL 8.6-10.3 PROTEIN, TOTAL 6.7 g/dL 6.1-8.1 ALBUMIN 4.2 g/dL 3.6-5.1 GLOBULIN 2.5 g/dL (calc) 1.9-3.7 ALBUMIN/GLOBULIN RATIO 1.7 (calc) 1.0-2. 5 BILIRUBIN, TOTAL 0.5 mg/dL 0.2-1.2 ALKALINE PHOSPHATASE 72 U/L 35-144 AST 37 U/L 10-35 ALT 17 U/L 9-46 Encounters ACCT No. Visit Date/Time Discharge Status Pt. Type Provider Facility Loc./Unit Complaint [id number] 02/10/2020 08:00:00 02/10/2020 23:59: 59 CLS Outpatient TIFFANIE CAMPOS APRN [facility] [id number] 03/12/2020 13:20:00 Document Registration [id number] 08/26/2019 11:00:00 Document Registration [id number] 07/15/2018 09:40:00 Document Registration [id number] 11/29/2017 09:00:00 Document Registration [id number] 11/28/2019 07:45:00 020 23:59:59 CLS Outpatient COBY ELLISON MD, FACC, FACP DS [facility] CARD CAD,COPD [id number] 11/26/2019 11:33:00 020 23:59:59 CLS Outpatient COBY ELLISON MD, FACC, FACP DS [facility] CARD CAD,COPD [id number] 05/16/2018 14:00:00 018 23:59:59 CLS Outpatient Mayuri MARTIN MD [facility] CATH SEVERE MIL,PRE CARDIAC SURGERY [id number] 04/25/2018 07:02:00 018 23:59:59 CLS Outpatient KIEL MEZA [facility] CARD RCA, CAD [id number] 04/23/2018 09:42:00 018 13:41:00 DIS Outpatient COBY ELLISON MD, FACC, FACP DS [facility] CATH MITRAL REGURGITATION,SOB,CAD,PAD [id number] 03/29/2018 09:35:00 018 23:59:59 CLS Outpatient COBY ELLISON MD, FACC, FACP CC DS [facility] CARD CAD [id number] 02/19/2018 06:44:00 018 11:40:00 DIS Outpatient COBY ELLISON MD, FACC, FACP CC DS [facility] CATH PAD,HTN,CLA UDICATION OF BOTH LOWER EXTREMITIES [id number] 01/18/2018 12:31:00 018 23:59:59 CLS Outpatient BAIMA, KIEL L [employer] [facility] RAD I73.9 PAD [id number] 11/02/2017 10:00:00 018 23:59:59 CLS Preadmit BAIMA, KIEL L [employer] [facility] CARD PAD [id number] 10/16/2017 09:00:00 018 23:59:59 CLS Preadmit BAIMA, KIEL L [employer] [facility] CATH BILAT LEG DISCOMFORT [id number] 07/27/2017 13:00:00 017 23:59:59 CLS Preadmit BAIMA, KIEL L [employer] [facility] RAD I77.9 [id number] 07/27/2017 12:00:00 017 23:59:59 CLS Preadmit BAIMA, KIEL L [employer] [facility] CARD I25.10 [id number] 07/24/2017 10:00:00 017 23:59:59 CLS Preadmit BAIMA, KIEL L [employer] [facility] CATH CLAUDICATION [id number] 07/10/2017 08:27:00 017 23:59:59 CLS Outpatient BAIMA, KIEL L [employer] [facility] CATH BILATERAL LEG D ISCOMFORT [id number] 03/06/2017 08:48:00 017 12:27:00 DIS Outpatient ROSA MARIA MOLINA DO [facility] ENDO HISTORY OF POLYPS [id number] 03/05/2017 10:30:00 017 11:21:00 DIS Outpatient ROSA MARIA MOLINA DO [facility] PREOP HISTORY OF POLYPS [id number] 09/12/2016 07:36:00 016 20:05:00 DIS Outpatient TERRA MCADAMS FACC, COBY AGUILERAP CC DS [facility] CATH PVD,BILAT L EG DISCOMFORT [id number] 09/09/2016 02:20:00 016 13:55:00 DIS Inpatient TIMOTEO MA MD [facility] ICU CHEST PAIN;ASVD [id number] 08/30/2016 13:28:00 23:59:59 CLS Outpatient KIEL MEZA [facility] CARD DYSPENA ON EXER TION, CHEST PAIN, HYPERTENSION [id number] 08/29/2016 07:03:00 016 13:50:00 DIS Outpatient TERRA MCADAMS FACC, COBY ZUNIGA CC DS [facility] CATH ANGINA, SHAHBAZ AT LEG DISCOMFORT/PAIN,SOB,CAD,FATIGUE [id number] 06/13/2016 10:36:00 016 16:55:00 DIS Outpatient ROSA MARIA MOLINA DO [facility] SDC SCREENING/GERD [id number] 06/12/2016 14:55:00 016 18:07:00 DIS Emergency YANET IVERSON MD [facility] ER LEFT SIDE ABD P AIN [id number] 06/12/2016 09:15:00 016 09:27:00 DIS Outpatient ROSA MARIA MOLINA DO [facility] PREOP SCREENING/GERD [id number] 06/16/2014 08:34:00 014 12:50:00 DIS Outpatient TERRA MCADAMS FACC, COBY AGUILERAP CC DS [facility] CATH CP,CAD,DYSP GIOVANNA [id number] 11/19/2013 09:37:00 014 23:59:59 CLS Outpatient TERRA MCADAMS FACC, COBY ZUNIGA CC DS [facility] CARD CAD,CARDIAC MURMUR [id number] 09/01/2013 11:39:00 013 23:59:59 CLS Outpatient TIFFANIE CAMPOS APRN [facility] RAD CORONARY ARTERY DISEASE [id number] 04/06/2020 09:00:00 P EN Preadmit KIEL MEZA [employer] [facility] CATH PAD,CLAUDICATION,LEG DISCOMF ORT [id number] 06/07/2016 15:34:00 Document Registration [id number] 12/01/2014 11:36:00 12/01/2014 23:59: 59 CLS Outpatient TIFFANIE CAMPOS APRN [id number] 10/26/2014 07:55:00 10/26/2014 23:59: 59 CLS Outpatient TIFFANIE CAMPOS APRN [id number] 10/20/2014 11:05:00 10/20/2014 23:59: 59 CLS Outpatient TIFFANIE CAMPOS APRN [id number] 09/19/2014 09:43:00 09/19/2014 23:59: 59 CLS Outpatient ALLA VALDIVIA APRN [id number] 2014 15:32:00 2014 23:59: 59 CLS Outpatient AINSLEY HERNANDEZ DO [id number] 08/05/2014 10:10:00 08/05/2014 23:59: 59 CLS Outpatient COBY ELLISON MD [id number] 06/22/2014 11:03:00 06/22/2014 23:59: 59 CLS Outpatient TIFFANIE CAMPOS APRN [id number] 06/10/2014 09:19:00 06/10/2014 23:59: 59 CLS Outpatient AINSLEY HERNANDEZ DO [id number] 02/05/2014 14:52:00 02/05/2014 23:59: 59 CLS Outpatient AINSLEY HERNANDEZ DO [id number] 11/17/2013 08:40:00 11/17/2013 23:59: 59 CLS Outpatient TIFFANIE CAMPOS APRN [id number] 11/06/2013 08:46:00 11/06/2013 23:59: 59 CLS Outpatient AINSLEY HERNANDEZ DO [id number] 11/05/2013 10:45:00 11/05/2013 23:59: 59 CLS Outpatient AINSLEY HERNANDEZ DO [id number] 08/18/2013 14:54:00 08/18/2013 23:59: 59 CLS Outpatient AINSLEY HERNANDEZ DO [id number] 06/27/2013 13:49:00 06/27/2013 23:59: 59 CLS Outpatient MIRELLA ORTIZ MD [id number] 01/14/2013 14:08:00 01/14/2013 23:59: 59 CLS Outpatient MIRELLA ORTIZ MD [id number] 01/02/2013 10:38:00 01/02/2013 23:59: 59 CLS Outpatient HEAVEN SOLOMON DDS [id number] 12/18/2012 11:23:00 12/18/2012 23:59: 59 CLS Outpatient [id number] 12/12/2012 13:37:00 12/12/2012 23:59: 59 CLS Outpatient [id number] 12/09/2012 08:26:00 12/09/2012 23:59: 59 CLS Outpatient [id number] 12/06/2012 10:00:00 12/06/2012 23:59: 59 CLS Outpatient [id number] 12/03/2012 15:19:00 12/03/2012 23:59: 59 CLS Outpatient [id number] 04/22/2013 11:07:00 Document Registration [id number] 03/05/2013 07:13:00 Document Registration
[2020-04-06] MEDS ORDERED: NS IV 1000 ML 1,000 ML ONE (07:07)
[2020-04-06] MEDS ORDERED: HEParin (CATH LAB) 2,000 ML IV ONE (07:07)
[2020-04-06] MEDS ORDERED: NS IV 1000 ML 1,000 ML IV SCH ×2 (07:15→10:38)
[2020-04-06 07:39] LABS: HEMOGLOBIN 13.6 G/DL (13.3-17.7); MEAN PLATELET VOLUME 11.2 FL (7.4-10.4); RED CELL DISTRIBUTION WIDTH 14.2 % (10.0-14.5); WHITE BLOOD COUNT 6.7 10^3/uL (4.3-11.0)
[2020-04-06 07:52] LABS: INR 0.9 (0.8-1.4); PROTHROMBIN TIME PATIENT 12.7 SEC (12.2-14.7)
[2020-04-06 08:03] LABS: ALANINE AMINOTRANSFERASE 18 U/L (0-55); ALBUMIN 4.1 GM/DL (3.2-4.5); ALKALINE PHOSPHATASE 57 U/L (40-136); BILIRUBIN,TOTAL 0.4 MG/DL (0.1-1.0); BUN/CREATININE RATIO 23; CALCIUM 8.9 MG/DL (8.5-10.1); CARBON DIOXIDE 27 MMOL/L (21-32); CHLORIDE 105 MMOL/L (98-107); CHOLESTEROL 144 MG/DL (< 200); CREATININE SERUM 1.11 MG/DL (0.60-1.30); GFR ESTIMATED > 60; GLUCOSE 99 MG/DL (70-105); HDL CHOLESTEROL 33 MG/DL (40-60); POTASSIUM 3.9 MMOL/L (3.6-5.0); SODIUM 141 MMOL/L (135-145); TOTAL PROTEIN 6.9 GM/DL (6.4-8.2); TRIGLYCERIDES 151 MG/DL (<150); VLDL CHOLESTEROL 30 MG/DL (5-40)
[2020-04-06] MEDS ORDERED: RAMI10CA69 PO (08:12)
[2020-04-06] MEDS ORDERED: CRV25T PO (08:12)
[2020-04-06] MEDS ORDERED: MIDAZOLAM 5 MG/5 ML (VERSED) VIAL ONE (09:37)
[2020-04-06] MEDS ORDERED: fentaNYL INJECTION 100 MCG/2 ML AMP ONE (09:37)
--- NOTE | 2020-04-06 09:43 | Cardiac Procedure Note-CS/ASA ---
Pre-Procedure Note Pre-Op Procedure Note H&P Reviewed The H&P was reviewed, patient examined and no changes noted. Date H&P Reviewed: Apr 06, 2020 Time H&P Reviewed: 09:43 Conscious Sedation Pre-Proced Time 09:43 ASA Score 3 For ASA 3 and 4: Consider anesthesia and medical clearance. Also, for patients with a history of failed moderate sedation consider anesthesia. Airway Lungs Heart ASA score ASA 1: a normal healthy patient ASA 2: a patient with a mild systemic disease (mid diabetes, controlled hypertension, obesity ASA 3: a patient with a severe systemic disease that limits activity (angina, COPD, prior Myocardial infarction) ASA 4: a patient with an incapacitating disease that is a constant threat to life (CHF, renal failure) ASA 5: a moribund patient not expected to survive 24 hrs. (ruptured aneurysm) ASA 6: a declared brain- patient whose organs are being harvested. For emergent operations, add the letter E after the classification Mallampati Classification Grade 1 Sedation Plan Analgesia, Amnesia, Plan communicated to team members, Discussed options with patient/fam, Discussed risks with patient/fam The patient is an appropriate candidate to undergo the planned procedure, sedation, and anesthesia. The patient immediately re-assessed prior to indication. COBY ELLISON MD FACP FAC CCDS Apr 06, 2020 09:43
--- NOTE | 2020-04-06 10:43 | Discharge Inst-Post CATH ---
Discharge Inst-CATH/EP Post Cardiac Cath/EP D/C Inst Follow Up/Plan F/u with Dr Power next week ACTIVITY * Go Home directly and rest. * Limit activity of the leg (or wrist if it was used) for 7 days including aerobics, swimming, jogging, bicycling, etc. * Restrict stair-climbing for 7 days if possible, if not, climb up with your no n-cath leg, then bring together on the same step. * Avoid lifting, pushing, pulling or excessive movement of the affected ext remity for 7 days. * Customary sexual activity may be resumed after 2 days-use caution not to use a position that strains or causes pain to the affected extremity. * No driving for 24 hours. * NO SMOKING. * Avoid straining for bowel movements for 7 days. * Gentle walking on level ground is allowed. * Returning to work will depend on the type of procedure and the results. Your doctor will discuss this with you. CALL YOUR DOCTOR FOR ANY OF THE FOLLOWING: *If bleeding from the puncture site occurs- Apply gentle pressure to site with clean cloth and call your doctor or EMS. * If a knot or lump forms under the skin, increases in size, or causes pain. * If bruising appears to be worsening or moving further down your leg instead of disappearing. * Temperature above 101 F. CARE OF YOUR GROIN INCISION; * Bruising or purple discoloration of the skin near the puncture site is common. * You may shower only, no bathtub bathing for 5 days. Be careful to avoid slipping as your leg may feel stiff. * If a closure device was used on your femoral artery, please see the attached guide regarding care of the device and your leg. * Leave dressing on FOR 24 hours. CARE OF YOUR WRIST INCISION; * Bruising or purple discoloration of the skin near the puncture site is common. * You may shower. * DO NOT submerge wrist. * Leave dressing on FOR 24 hours. COBY POWER MD FACP FAC CCDS Apr 06, 2020 10:43
--- NOTE | 2020-04-06 10:44 | Discharge Inst-Cardiology ---
Discharge Inst-Cardiac Discharge Medications Continued Medications: Albuterol Sulfate (Ventolin Hfa) 1 Puff Puff 2 PUFF IH QID PRN for SHORTNESS OF BREATH, PUFF 1 PUFF = 90 MCG Aspirin (Aspirin EC) 81 Mg Tablet.dr 81 MG PO DAILY, TAB Carvedilol (Coreg) 25 Mg Tab 25 MG PO BID, TAB Glycopyrrolate/Formoterol Fum (Bevespi Aerosphere Inhaler) 10.7 Gm Hfa.aer.ad 2 PUFF IH BID, INHALER [place]-3/Dha/Epa/Fish Oil (Fish Oil 1,000 mg Softgel) 1 Each Capsule 1000 MG PO DAILY, CAP Pantoprazole Sodium (Protonix) 40 Mg Tablet.dr 40 MG PO BID, TAB Ramipril (Ramipril) 10 Mg Capsule 20 MG PO DAILY, CAP Rosuvastatin Calcium (Crestor) 20 Mg Tablet 20 MG PO DAILY, TAB COBY ELLISON MD FACP FAC CCDS Apr 06, 2020 10:44
[2020-04-06] MEDS ORDERED: PATIENT MAY USE OWN MEDS, ALL PO SCH (10:45)
--- NOTE | 2020-04-06 11:18 | OPERATIVE REPORT ---
DATE OF SERVICE: 04/06/2020 PERIPHERAL ANGIOGRAPHY REPORT INDICATIONS: The patient is a 64-year-old man with known peripheral arterial disease, who has had leg claudication on both sides. He is also known to have renal artery stenosis and abdominal aortic atherosclerosis. Peripheral angiography was recommended and informed consent was obtained. DESCRIPTION OF PROCEDURE: He was brought to the cardiac catheterization laboratory in a fasting state. Right groin was prepared and draped in the usual sterile fashion. Lidocaine 1% was used for local anesthesia. Modified Seldinger technique was used to advance a 5-Eritrean sheath in the right femoral artery. A 5-Eritrean pigtail catheter was placed at the level of L1 and abdominal aortic angiography was performed. The pigtail was then pulled down to the level just cephalic to the aortoiliac bifurcation and bilateral leg artery angiography was performed with runoff down to the level of the ankles. We then carried out selective angiography of the contralateral (left) common iliac artery. This was accomplished using a 5-Eritrean crossover catheter. The catheter was removed over a wire. Angiography of the right femoral artery was carried out through the sheath. Mynx was used to achieve hemostasis. He tolerated the procedure well. ABDOMINAL AORTIC ANGIOGRAPHY: Abdominal aortic angiography indicates abdominal aortic atherosclerosis and calcification. There does not appear to be significant abdominal aortic aneurysm or stenosis. Renal arteries show 60% stenosis on the left side and 50% proximal stenosis on the right side. The aortoiliac bifurcation shows calcification. BILATERAL ILIAC ARTERY ANGIOGRAPHY: On the right side, there is a long patent stented segment involving the right common iliac and the right external iliac arteries. The right internal iliac artery is not visualized. The right common iliac artery is intact. The right superficial femoral artery exhibits 90% proximal stenosis and a 60% mid vessel stenosis. The right deep femoral artery has 60% to 70% ostial stenosis. The right popliteal artery is intact and trifurcates normally and there is runoff down to the level of the right ankle. On the left side, there was approximately 40% to 50% ostial stenosis of the left common iliac. The left internal iliac exhibits 90% ostial stenosis. The left external iliac, common femoral, superficial femoral, deep femoral exhibit moderate diffuse disease. The left popliteal is intact and trifurcates normally with runoff down to the level of the left ankle. CONCLUSIONS: 1. Abdominal aortic atherosclerosis and calcification without evidence of significant aneurysm formation. 2. 60% proximal stenosis of the left renal artery. 3. 50% proximal stenosis of the right renal artery. 4. Long, patent stented segment of the right common iliac and the external iliac. 5. A 90% proximal stenosis in the right superficial femoral and 60% mid vessel stenosis in the right superficial femoral. 6. 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 DISCUSSION AND RECOMMENDATIONS: We recommend percutaneous intervention to the right superficial femoral using the contralateral approach. He will be brought back at a later date for access via the left groin and we are likely to use drug-eluting balloons. Risk factor modification has been reviewed. He has been advised to refrain from tobacco use and to be compliant with medications. Job ID: [id number] DocumentID: [id number] Dictated Date: 04/06/2020 10:53:19 [employer] Date: 04/06/2020 11:17:28 Dictated By: COBY ELLISON MD, MA, FACP, FACC, MTDD
== END 2020-04-06 13:55 | disposition home or self-care (01) ==
LOC: CATH 06:38 → SDC 11:20 → CATH 13:55
PROVIDERS: ATTEND Nurse Practitioner Family
DX: I70.213 Atherosclerosis of native arteries of extremities with intermittent claudication, bilateral legs (principal); I70.1 Atherosclerosis of renal artery; I34.0 Nonrheumatic mitral (valve) insufficiency; I25.10 Atherosclerotic heart disease of native coronary artery without angina pectoris; E78.5 Hyperlipidemia, unspecified; F17.210 Nicotine dependence, cigarettes, uncomplicated; G47.33 Obstructive sleep apnea (adult) (pediatric); F32.9 Major depressive disorder, single episode, unspecified; Z79.82 Long term (current) use of aspirin; E66.9 Obesity, unspecified; Z68.29 Body mass index [BMI] 29.0-29.9, adult; Z95.1 Presence of aortocoronary bypass graft
CPT/HCPCS: 36415; 75625; 75716; 80053; 80061; 85027; 85610; 85730; 87081

== ENCOUNTER → 2022-03-14 | Outpatient (CLI) | payer MEDICAID ==
[~2022-03-14] MED LIST changes: +AMLO-251 PO; -AMLO10TA7 PO; +ASPI-1238 PO; -ASPI-983 PO; +CATHETER FLUSH 10 ML SYR IVP PRN; +CRV25T PO; +LISI40TA9 PO; -OXYC-471 PO; +OXYC1TAB11 PO; +RAMI10CA69 PO
== END ==
LOC: CARD 09:52
PROVIDERS: ATTEND Internal Medicine Cardiovascular Disease
DX: I51.7 Cardiomegaly (principal); I34.8 Other nonrheumatic mitral valve disorders; I25.10 Atherosclerotic heart disease of native coronary artery without angina pectoris; Z95.2 Presence of prosthetic heart valve
CPT/HCPCS: 93306

== ENCOUNTER → 2022-04-21 | Outpatient (CLI) | payer MEDICAID ==
[~2022-04-21] MED LIST changes: +REGADENOSON 0.4 MG/5 ML SYR (LEXISCAN) IV ONE
[2022-04-21 09:17] VITALS: BP 124/66
--- NOTE | 2022-04-21 15:52 | STRESS TEST ---
DATE OF SERVICE: 04/21/2022 RESTING AND POST REGADENOSON TECHNETIUM-99M TETROFOSMIN SPECT CT IMAGING ORDERING PHYSICIAN: Dr. Power. PRIMARY PHYSICIAN: Dr. Brooks. CLINICAL DIAGNOSIS: Coronary artery disease. Baseline images were carried out after injection of 10.84 mCi of technetium-99m Tetrofosmin. This was followed by 0.4 mg Regadenoson and 27.5 mCi of technetium-99m Tetrofosmin for stress imaging. The electrocardiogram showed sinus rhythm at baseline. The electrocardiogram showed inferior wall myocardial infarction that is old. The electrocardiogram did not change significantly with the Regadenoson infusion. Review of images at rest and following stress indicates a predominantly fixed inferolateral perfusion defect. Gated images show inferolateral hypokinesis to akinesis. Left ventricular ejection fraction is calculated to be 56%. CONCLUSIONS: 1. Inferolateral myocardial infarction with minimal flaco-infarct ischemia. 2. Inferolateral hypokinesis to akinesis. 3. Well preserved global left ventricular systolic function with a calculated ejection fraction of 56%. Job ID: [id number] DocumentID: [id number] Dictated Date: 04/21/2022 12:39:26 Manufacturing Area Manager Date: 04/21/2022 15:51:50 Dictated By: COBY POWER MD, MA, FACP, FACC,
== END ==
LOC: CARD 07:30
PROVIDERS: ATTEND Internal Medicine Cardiovascular Disease
DX: I25.10 Atherosclerotic heart disease of native coronary artery without angina pectoris (principal)
CPT/HCPCS: 78452; 93017